=== PATIENT | male | born 1965 | race Caucasian/White ===

== ENCOUNTER 2020-05-29 12:04 | Outpatient (REF) | payer MEDICAID, SELFPAY | END 2020-05-29 12:05 | disposition home or self-care (01) | LOC: HO.HAP 12:04 | PROVIDERS: PCP Family Medicine; Visit Provider Family Medicine | DX: Z46.1 Encounter for fitting and adjustment of hearing aid (principal) | CPT/HCPCS: 92700; V5221; V5240 ==

== ENCOUNTER 2020-06-24 22:44 | Emergency (ER) | payer MEDICAID, SELFPAY ==
--- NOTE | 2020-06-24 | ECG_ITS ---
Test Reason : CHEST PAIN Blood Pressure : / mmHG Vent. Rate : 063 BPM Atrial Rate : 063 BPM P-R Int : 146 ms QRS Dur : 098 ms QT Int : 410 ms P-R-T Axes : 044 070 058 degrees QTc Int : 419 ms Normal sinus rhythm Normal ECG When compared to previous ECG of 24-Jun-2020 22:33:10 No significant changes seen Referred By: Generic ED Physician Electronically Signed By:MAILE MORALES MD
[2020-06-24 22:46] VITALS: BP 150/90; BP 169/88; PULSE 80; PULSE 81; RESP 16; TEMP 37.4; O2SAT 99; BMI 29.7
--- NOTE | 2020-06-25 01:19 | ED_ITS ---
HPI - Chest Pain General Chief Complaint: Chest Pain Stated Complaint: CHEST PAIN Time Seen by Provider: 06/25/20 01:19 Source: patient Mode of arrival: ambulatory Limitations: no limitations History of Present Illness MD complaint: chest pain Onset (ago): hour(s) (started at pm resolved now) Timing of current episode: episodic Prior episodes: Yes Onset: other (anxiety event) Pain location: right chest Pain radiation: none Quality: tightness Relieving factors: nothing Exacerbating factors: nothing Associated symptoms: other (dizziness) Treatment prior to arrival: none Related Data Allergies Allergy/AdvReac Type Severity Reaction Status Date / Time amoxicillin [AMOXICILLIN] Allergy Unknown ANAPHYLAXIS Verified 06/24/20 22:46 penicillin V Allergy Unknown Unknown Verified 06/24/20 22:46 Penicillins Allergy Unknown UNKNOWN Verified 06/24/20 22:46 REACTION-CHILDHOOD doxycycline [From VIBRAMYCIN] AdvReac Mild DIARRHEA Verified 06/24/20 22:46 Clindamycin HCl Allergy Unknown Unknown Uncoded 06/24/20 22:46 Review of Systems Review of Systems: Constitutional : No Weight loss, No Fever, No Chills ENT/Mouth : No sore throat, No Rhinorrhea Eyes: No Eye Pain, No Swelling Cardiovascular : pos Chest Pain, no SOB, no Dyspnea on Exertion, No Orthopnea, No Edema, No Palpitations Respiratory : No Cough, No Sputum Gastrointestinal : no Nausea, No Vomiting, No Diarrhea, No abdominal Pain, No Hematochezia, No Melena Genitourinary : No Dysuria, No Urinary Frequency Musculoskeletal : No joint pain, No Myalgias, No Joint Swelling Skin : No Skin Lesions, No rash Neuro : No Weakness, No Numbness, pos Dizziness, No Headache Psych : No Anxiety/Panic, No Depression Heme/Lymph: No Bruising, No Lymphadenopathy Endocrine : No Polyuria, No Polydipsia All other systems reviewed and are negative [facility] Past Medical History Medical History (Updated 06/25/20 @ 02:31 by Caryn Reynolds DO) Diabetes HTN (hypertension) Pulmonary nodules Social History Social History (Updated 06/25/20 @ 01:34 by Caryn Reynolds DO) Smoking Status: Never smoker Use of substances other than those prescribed or required for medical reasons: No Advance Directives: No Advance Directives Information Provided: No Physical Exam Vital Signs: Vital Signs: Vital Signs Temp Pulse Resp BP Pulse Ox 06/24/20 22:46 99.3 F 81 16 169/88 H 99 Body Mass Index 29.7 Appearance: Alert. Oriented X3. No acute distress. Eyes: Pupils equal, round and reactive to light. ENT: Pharynx normal. Neck: Normal inspection. Neck supple. CVS: Normal heart rate and rhythm. Pulses normal. Respiratory: No respiratory distress. Breath sounds normal. Abdomen: Soft and nontender. Skin: Skin warm and dry. Normal skin color. Normal skin turgor. Extremities: No lower extremity edema. No calf ttp Neuro: Oriented X 3. No motor deficit. No sensory deficit. Course Course Course Narrative: initial troponin negative, repeat ordered at 330am, if negative stable for DC MDM - Chest Pain MDM Narrative Medical decision making narrative: 54 yo male with HTN, DM here with resolved chest pain had episode of R sided chest pain with some dizziness during anxiety event at 9pm - at this time will need labs, EKG, CXR, troponin x 2, currently pain free Lab Data Result diagrams: 06/25/20 01:33 06/25/20 01:33 Labs: Lab Results 06/25/20 06/25/20 06/25/20 Range/Units 01:33 01:33 01:33 WBC 5.5 (4.8-10.8) X10*3/uL RBC 4.59 L (4.60-5.80) X10*6/uL Hgb 13.7 L (14.0-18.0) g/dl Hct 40.6 L (42-52) % MCV 88.5 (80-98) fL MCH 29.8 (27.0-33.0) pg MCHC 33.7 (31.0-36.0) g/dl RDW 12.1 (11.0-16.0) % Plt Count 285 (160-400) X10*3/uL MPV 10.0 (9.4-12.4) fL Immature Gran % (Auto) 0.4 (0.0-0.4) % Neut % (Auto) 55.6 (45-73) % Lymph % (Auto) 32.4 (20-40) % [place] % (Auto) 10.4 (2-11) % Eos % (Auto) 0.7 (0-4) % Baso % (Auto) 0.5 (0-2) % Lymph # (Auto) 1.8 (1.2-4.9) X10*3/uL [place] # (Auto) 0.6 (0.1-1.2) X10*3/uL Eos # (Auto) 0.0 (0.0-0.4) X10*3/uL Baso # (Auto) 0.0 (0.0-0.2) X10*3/uL Abs Immat Gran (auto) 0.02 (0.00-0.03) X10*3/uL Absolute Neuts (auto) 3.0 (2.0-8.3) X10*3/uL Absolute Nucleated RBC 0.000 (0.0-0.012) X10*3/uL Nucleated RBC % (auto) 0.0 (0.0-0.2) /100WBC Hold Blue Top SEE NOTE Sodium 140 (135-145) mmol/L Potassium 3.7 (3.3-5.1) mmol/l Chloride 105 (96-108) mmol/L Carbon Dioxide 24 (22-29) mmol/L Anion Gap 15 (12-20) BUN 17 H (9-16) mg/dL Creatinine 0.81 (0.5-1.4) mg/dL Estim Creat Clear Calc 108.0 Estimated GFR > 60 Random Glucose 131 H (60-115) mg/dL Calcium 9.3 (8.4-10.2) mg/dL Troponin I High Sens (<3.5-35.0) ng/L 06/25/20 Range/Units 01:33 WBC (4.8-10.8) X10*3/uL RBC (4.60-5.80) X10*6/uL Hgb (14.0-18.0) g/dl Hct (42-52) % MCV (80-98) fL MCH (27.0-33.0) pg MCHC (31.0-36.0) g/dl RDW (11.0-16.0) % Plt Count (160-400) X10*3/uL MPV (9.4-12.4) fL Immature Gran % (Auto) (0.0-0.4) % Neut % (Auto) (45-73) % Lymph % (Auto) (20-40) % [place] % (Auto) (2-11) % Eos % (Auto) (0-4) % Baso % (Auto) (0-2) % Lymph # (Auto) (1.2-4.9) X10*3/uL [place] # (Auto) (0.1-1.2) X10*3/uL Eos # (Auto) (0.0-0.4) X10*3/uL Baso # (Auto) (0.0-0.2) X10*3/uL Abs Immat Gran (auto) (0.00-0.03) X10*3/uL Absolute Neuts (auto) (2.0-8.3) X10*3/uL Absolute Nucleated RBC (0.0-0.012) X10*3/uL Nucleated RBC % (auto) (0.0-0.2) /100WBC Hold Blue Top Sodium (135-145) mmol/L Potassium (3.3-5.1) mmol/l Chloride (96-108) mmol/L Carbon Dioxide (22-29) mmol/L Anion Gap (12-20) BUN (9-16) mg/dL Creatinine (0.5-1.4) mg/dL Estim Creat Clear Calc Estimated GFR Random Glucose (60-115) mg/dL Calcium (8.4-10.2) mg/dL Troponin I High Sens 4.9 (<3.5-35.0) ng/L ECG Data ECG #1: Attestation: I personally reviewed and interpreted this ECG as follows: ECG interpretation date: 06/25/20 ECG interpretation time: 01:19 Interpretation: Rate: 63 Rhythm: NSR [place]: normal Normal P waves. Normal MERI. Normal QRS complex. ST T wave : normal qTC: normal prior studies: no acute ischemia The study has been interpreted contemporaneously by me. . Discharge Plan Discharge Clinical Impression: Atypical chest pain Patient Disposition: Home, Self-Care Instructions: Chest Pain (ED) Referrals: Ashley Frankel MD [Primary Care Provider] - 2 days (if not better)
[2020-06-25 01:48] LABS: Basophils Percent Auto 0.5 % (0-2); Eosinophils Percent Auto 0.7 % (0-4); Hematocrit 40.6 % (42-52); Hemoglobin 13.7 g/dl (14.0-18.0); Imm Gran Abs Auto 0.02 X10*3/uL (0.00-0.03); Imm Gran Pct Auto 0.4 % (0.0-0.4); Lymphocytes Absolute Auto 1.8 X10*3/uL (1.2-4.9); Lymphocytes Percent Auto 32.4 % (20-40); MANUAL DIFF FLAG NO; Mean Corpuscular HGB Conc 33.7 g/dl (31.0-36.0); Mean Corpuscular Hemoglobin 29.8 pg (27.0-33.0); Mean Corpuscular Volume 88.5 fL (80-98); Monocytes Absolute Auto 0.6 X10*3/uL (0.1-1.2); Monocytes Percent Auto 10.4 % (2-11); Neutrophils Percent Auto 55.6 % (45-73); Platelet Count 285 X10*3/uL (160-400); Red Blood Count 4.59 X10*6/uL (4.60-5.80); Red Cell Distribution Width 12.1 % (11.0-16.0); White Blood Count 5.5 X10*3/uL (4.8-10.8)
[2020-06-25 02:13] LABS: Anion Gap 15 (12-20); Blood Urea Nitrogen 17 mg/dL (9-16); Calcium 9.3 mg/dL (8.4-10.2); Carbon Dioxide 24 mmol/L (22-29); Chloride 105 mmol/L (96-108); Estimated Glomerular Filt Rate > 60; Glucose Random 131 mg/dL (60-115); Potassium 3.7 mmol/l (3.3-5.1); Sodium 140 mmol/L (135-145)
--- NOTE | 2020-06-25 02:16 | PC.NURSE ---
pt refused chest x ray. came in from [facility]. pt labbed per leonor mg orders. pt stable. nrs on monitor
[2020-06-25 02:21] LABS: Troponin-I High Sensitivity 4.9 ng/L (<3.5-35.0)
--- NOTE | 2020-06-25 02:52 | PC.NURSE ---
plan for repeat troponin at 0330. pt agreeable. nsr on monitor. nad noted
[2020-06-25 03:30] VITALS: BP 154/85; PULSE 61; RESP 18; TEMP 37.1
--- NOTE | 2020-06-25 03:34 | PC.NURSE ---
repeat troponin complete
[2020-06-25 04:09] LABS: Troponin-I High Sensitivity 5.8 ng/L (<3.5-35.0)
== END 2020-06-25 04:23 | disposition home or self-care (01) ==
PROVIDERS: Emergency Provider Emergency Medicine; PCP Family Medicine
DX: R07.89 Other chest pain (principal); Z79.899 Other long term (current) drug therapy
CPT/HCPCS: 36415; 80048; 84484; 85025; 93005; 99283; 99284

== ENCOUNTER 2020-07-30 12:44 | Outpatient (REF) | payer MEDICAID, SELFPAY ==
--- NOTE | 2020-07-30 12:46 | CT_ITS ---
EXAMINATION: CT CHEST WITHOUT CONTRAST CLINICAL INFORMATION: Left lung nodule COMPARISON: 12/25/2019 and 07/29/2019. TECHNIQUE: Multidetector volumetric CT imaging of the chest was done. Axial MIP volume rendering provided. Sagittal and coronal reformatted images were obtained. This CT examination was performed using dose optimization techniques as appropriate, variously including the following: *Automated exposure control *Adjustment of mA and/or kV according to patient size (this includes techniques or standardized protocols for targeted exams where dose is matched to indication/reason for exam; i.e. extremities or head) *Use of iterative reconstruction technique DLP: 182 mGy-cm FINDINGS: LUNGS: Central airways are patent. No bronchial wall thickening identified. No bronchiectasis is seen. No confluent parenchymal disease. No findings to suggest emphysema. There are numerous calcified granulomas seen. There is a 1.0 x 0.6 x 0.5 cm noncalcified density within the left lower lobe on image 354 of 597. This appears similar in previous study of 12/25/2019 and 07/29/2019. MEDIASTINUM: Thyroid gland appears unremarkable. Heart normal size. No pericardial effusion. Coronary artery calcification present involving the bifurcation of the left main coronary artery. No thoracic aortic aneurysm. No mediastinal or hilar lymphadenopathy. PLEURA: There is no pleural effusion. No pleural mass or thickening. AXILLA: No lymphadenopathy. There is bilateral gynecomastia present. UPPER ABDOMEN: Unremarkable. OSSEOUS STRUCTURES: No suspicious destructive bony lesions identified. CT/CT chest wo con IMPRESSION: Old granulomatous disease. No significant change in appearance of left lower lobe mass. According to the UPDATED 2017 Fleischner Society recommendations, the advised follow-up imaging for a single solid nodule measuring 8 mm or greater is: Consider CT, PET/CT, or tissue sampling at 3 months. Previous Fleischner recommendations were Nodule size > 8 mm in LOW RISK PATIENTS: Follow up CT at around 3, 9, and 24 months, dynamic contrast-enhanced CT, PET, and/or biopsy. Nodule size > 8 mm in HIGH RISK PATIENTS: Same as for low-risk patients. Since the lesion has been stable for one year I would recommend either a PET/CT or 12 month follow-up CT of the chest.
== END 2020-07-30 12:45 | disposition home or self-care (01) ==
LOC: HO.CT 12:44
PROVIDERS: PCP Family Medicine; Visit Provider Hospitalist
DX: R91.1 Solitary pulmonary nodule (principal)
CPT/HCPCS: 71250

== ENCOUNTER → 2020-08-04 10:09 | Outpatient (BNVA) | payer MEDICAID, SELFPAY | PROVIDERS: PCP Family Medicine; Referring Provider Family Medicine; Visit Provider Hospitalist | DX: Z76.89 Persons encountering health services in other specified circumstances (principal) ==

== ENCOUNTER 2020-08-12 11:40 | Outpatient (REF) | payer MEDICAID, SELFPAY ==
[2020-08-12 13:26] LABS: Alanine Aminotransferase 14 U/L (0-40); Albumin Level 4.4 g/dL (3.5-5.0); Alkaline Phosphatase 96 U/L (39-117); Anion Gap 12 (12-20); Aspartate Amino Transferase 22 U/L (5-37); Bilirubin Total 1.4 mg/dL (0.0-1.0); Blood Urea Nitrogen 11 mg/dL (9-16); Calcium 9.5 mg/dL (8.4-10.2); Carbon Dioxide 31 mmol/L (22-29); Chloride 102 mmol/L (96-108); Cholesterol 174 mg/dL; Estimated Glomerular Filt Rate > 60; Glucose Random 147 mg/dL (60-115); HDL Cholesterol 59 mg/dL; LDL Cholesterol Calculated 100 mg/dl; Potassium 3.7 mmol/l (3.3-5.1); Sodium 141 mmol/L (135-145); Total Protein 7.1 g/dL (6.5-8.0); Triglycerides 78 mg/dL
[2020-08-12 13:27] LABS: Creatinine Urine 193.46 mg/dL; Microalbum/Creatinine Ratio Ur 6.2 ug/mg cr
[2020-08-12 14:21] LABS: Prostate Specific Antigen 0.99 ng/mL (<0.05-4.0)
== END 2020-08-12 11:41 | disposition home or self-care (01) ==
LOC: HO.LAB 11:40
PROVIDERS: PCP Family Medicine; Visit Provider Family Medicine
DX: R35.8 Other polyuria (principal); I10 Essential (primary) hypertension
CPT/HCPCS: 80053; 80061; 82043; 84153

== ENCOUNTER 2020-08-15 01:10 | Emergency (ER) | payer MEDICAID, SELFPAY ==
--- NOTE | 2020-08-15 | ECG_ITS ---
Test Reason : PALPITATIONS Blood Pressure : / mmHG Vent. Rate : 060 BPM Atrial Rate : 060 BPM P-R Int : 142 ms QRS Dur : 092 ms QT Int : 414 ms P-R-T Axes : 031 069 048 degrees QTc Int : 414 ms Normal sinus rhythm Normal ECG When compared to the previous EKG of No significant changes seen Referred By: Toñito Rodriguez Electronically Signed By:Joaquin Saunders
[2020-08-15 01:15] VITALS: BP 137/80; PULSE 76; RESP 18; TEMP 36.6; O2SAT 98; BMI 28.1
--- NOTE | 2020-08-15 01:29 | ED.GENADULT ---
HPI - General Adult General Chief complaint: General Medical Stated complaint: Palpitations Time Seen by Provider: 08/15/20 01:29 Source: patient Mode of arrival: ambulatory Limitations: no limitations History of Present Illness HPI narrative: Patient been complaining of palpitation for last 3 months was seen here 06/25 supposed to see accounts manager but could not make it patient detail workup including echo and stress test in 02/14 feels anxious has poor sleep patient does get palpitation with heart rate close to 110 without any chest discomfort or dizziness or syncope Related Data Home Medications Medication Instructions Recorded Confirmed albuterol sulfate 90 mcg/actuation 2 puff INHALATION Q4-6H PRN 08/04/20 08/04/20 aerosol inhaler amlodipine 5 mg tablet 5 mg PO DAILY 08/04/20 08/04/20 aspirin 81 mg tablet,delayed 81 mg PO DAILY 08/04/20 08/04/20 release lisinopril 20 mg tablet 20 mg PO DAILY 08/04/20 08/04/20 loratadine 10 mg tablet 10 mg PO DAILY 08/04/20 08/04/20 Previous Rx's Medication Instructions Recorded lorazepam [Ativan] 1 mg PO BEDTIME PRN #10 tab 08/15/20 Allergies Allergy/AdvReac Type Severity Reaction Status Date / Time amoxicillin [AMOXICILLIN] Allergy Severe ANAPHYLAXIS Verified 08/15/20 01:14 Penicillins Allergy Severe UNKNOWN Verified 08/15/20 01:14 REACTION-CHILDHOOD doxycycline [From VIBRAMYCIN] AdvReac Mild DIARRHEA Verified 08/15/20 01:14 Clindamycin HCl Allergy Severe Anaphylaxis Uncoded 08/15/20 01:14 Review of Systems Review of Systems: Constitutional : No Weight loss, No Fever, No Chills ENT/Mouth : No sore throat, No Rhinorrhea Eyes: No Eye Pain, No Swelling Cardiovascular : pos Chest Pain, no SOB, no Dyspnea on Exertion, No Orthopnea, No Edema, Respiratory : No Cough, No Sputum Gastrointestinal : no Nausea, No Vomiting, No Diarrhea, No abdominal Pain, No Hematochezia, No Melena Genitourinary : No Dysuria, No Urinary Frequency Musculoskeletal : No joint pain, No Myalgias, No Joint Swelling Skin : No Skin Lesions, No rash Neuro : No Weakness, No Numbness, pos Dizziness, No Headache Psych : No Anxiety/Panic, No Depression Heme/Lymph: No Bruising, No Lymphadenopathy Endocrine : No Polyuria, No Polydipsia All other systems reviewed and are negative [facility] Past Medical History Medical History (Updated 08/15/20 @ 02:14 by Toñito Rodriguez MD) Asthma Diabetes HTN (hypertension) Nasal polyps Pulmonary nodules Surgical History (Updated 08/06/20 @ 08:26 by Caleb Carbajal) H/O wrist surgery Family History Family History (Updated 08/06/20 @ 08:29 by Caleb Carbajal) Father Diabetes Hypertension Mother Hypertension Hyperlipidemia Brother Hypertension Family/Other Kidney stones Prostate cancer Bladder cancer Renal cancer Social History Social History (Updated 06/25/20 @ 01:34 by Crayn Reynolds DO) Smoking Status: Never smoker Advance Directives: No Advance Directives Information Provided: No Physical Exam Vital Signs: Vital Signs: Last Vital Signs Temp 97.8 F 08/15/20 01:15 Pulse 70 08/15/20 01:43 Resp 20 08/15/20 01:43 BP 156/94 H 08/15/20 01:43 Pulse Ox 98 08/15/20 01:15 Body Mass Index 28.1 Appearance: Alert. Oriented X3. No acute distress. Eyes: Pupils equal, round and reactive to light. ENT: Pharynx normal. Neck: Normal inspection. Neck supple. CVS: Normal heart rate and rhythm. Pulses normal. Respiratory: No respiratory distress. Breath sounds normal. Abdomen: Soft and nontender. Skin: Skin warm and dry. Normal skin color. Normal skin turgor. Extremities: No lower extremity edema. No calf ttp Neuro: Oriented X 3. No motor deficit. No sensory deficit. Medical Decision Making [facility] Narrative Medical decision making narrative: Patient with benign palpitation with anxiety on arrival patient's heart rate is 60 normal sinus rhythm no arrhythmias noticed will watch him for another half an hour on teletypesetter monitor. Patient had stable labs on 06/25. Patient supposed to see accounts manager this coming week for Holter monitoring. During stay in the ER teletypesetter monitor showed normal sinus rhythm heart rate in 60 wached for about half an hour no arrhythmias noticed ECG Data Attestation: I personally reviewed and interpreted this ECG as follows: Interpretation: Normal sinus rhythm heart rate 60 normal axis normal intervals no acute ST T wave changes impression normal EKG Discharge Plan Discharge Clinical Impression: Heart palpitations Patient Disposition: Home, Self-Care Instructions: Heart Palpitations (ED) Additional Instructions: Take medication to relax. Follow with accounts manager for further evaluation as scheduled. Report to the ER if any passing out episode Prescriptions: New lorazepam [Ativan] 1 mg tablet 1 mg PO BEDTIME PRN (Reason: anxiety) Qty: 10 RF: 0 No Action albuterol sulfate [ProAir HFA] 90 mcg/actuation HFA aerosol inhaler 2 puff inhalation Q4-6H PRNRF: 0 lisinopril 20 mg tablet 20 mg PO DAILY RF: 0 amlodipine 5 mg tablet 5 mg PO DAILY RF: 0 aspirin 81 mg tablet,delayed release (DR/EC) 81 mg PO DAILY RF: 0 loratadine [Claritin] 10 mg tablet 10 mg PO DAILY RF: 0
--- NOTE | 2020-08-15 01:41 | PC.NURSE ---
at bedside for primary eval.
[2020-08-15 01:43] VITALS: BP 156/94; PULSE 70; RESP 20
--- NOTE | 2020-08-15 01:50 | PC.NURSE ---
Pt found sitting upright in bed, CAOx4, speaking full sentences. Pt reports palpitations, states he has been having them intermittently for months. Pt was recently seen for an echo/stress test over the summer and again at the ED in May. Pt denies following up with a motor home electrical foreman. Pt denies recent stress/anxiety. Pt states he has been told multiple times that his palpitations are r/t anxiety but denies recent stress/anxiety. EKG obtained by this RN. VSS. Pt aware of plan to monitor for 30 minutes.
[2020-08-15 02:16] VITALS: BP 143/87; PULSE 64; RESP 16
--- NOTE | 2020-08-26 10:00 | ECG_ITS ---
Hook-up date: 2020-08-26 10:28:00 Duration: 25:16:00 Test Indications: palpitations Medications: 74170 QRS complexes 5 Ventricular ectopics which represent <1 % of total QRS comp. 22 Supraventricular ectopics which represent <1 % of total QRS comp. * Paced QRS complexs which represent % of total QRS comp. VENTRICULAR ECTOPY 5 Isolated 0 Bigeminal Cycles 0 Couplets 0 Runs 0 Beats in Runs * Beats LONGEST at * BPM at :: -- * Beats FASTEST at * BPM at :: -- SUPRAVENTRICULAR ECTOPY 19 Isolated 0 Couplets 1 Runs 3 Beats in Runs 3 Beats LONGEST at 140 BPM at 14:04:26 2020-08-26 3 Beats FASTEST at 140 BPM at 14:04:26 2020-08-26 HEART RATES 55 MIN at 07:39:09 2020-08-27 73 AVG 124 MAX at 02:14:04 2020-08-27 LONGEST RR 1.3120 secs at 06:37:06 2020-08-27 S-T LEVELS Channel 1 - 128 mm at 10:28:00 2020-08-26 - 128 mm at 10:28:00 2020-08-26 Channel 2 - 128 mm at 10:28:00 2020-08-26 - 128 mm at 10:28:00 2020-08-26 Channel 3 - 128 mm at 02:94:71 -- - 128 mm at 02:94:71 Basic rhythm Normal sinus rhythm No long pause or profound bradycardia Rare ectopics No sustained arrhythmias No diary submitted Referred By: Joaquin Saunders Overread By: LIATH LIZAMA MD
== END 2020-08-15 02:21 | disposition home or self-care (01) ==
PROVIDERS: Emergency Provider Internal Medicine; PCP Family Medicine
DX: R00.2 Palpitations (principal); I10 Essential (primary) hypertension; E11.9 Type 2 diabetes mellitus without complications; Z79.899 Other long term (current) drug therapy
CPT/HCPCS: 93005; 93226; 99283; 99284

== ENCOUNTER → 2020-08-20 10:37 | Outpatient (BNVA) | payer MEDICAID, SELFPAY | PROVIDERS: PCP Family Medicine; Visit Provider Internal Medicine Cardiovascular Disease | DX: I10 Essential (primary) hypertension (principal); R00.2 Palpitations | CPT/HCPCS: 99212 ==

== ENCOUNTER → 2020-08-26 09:17 | Outpatient (BNVA) | payer MEDICAID, SELFPAY | PROVIDERS: PCP Family Medicine; Visit Provider Internal Medicine Cardiovascular Disease | DX: Z76.89 Persons encountering health services in other specified circumstances (principal) ==

== ENCOUNTER → 2020-09-25 13:45 | Outpatient (BNVA) | payer MEDICAID, SELFPAY | PROVIDERS: PCP Family Medicine; Visit Provider Hospitalist ==

== ENCOUNTER → 2020-09-28 12:50 | Outpatient (BNVA) | payer MEDICAID, SELFPAY | PROVIDERS: PCP Family Medicine; Visit Provider Internal Medicine Cardiovascular Disease | DX: M79.605 Pain in left leg (principal); I10 Essential (primary) hypertension; R00.2 Palpitations | CPT/HCPCS: 99212 ==

== ENCOUNTER 2020-10-04 06:07 | Emergency (ER) | payer MEDICAID, SELFPAY ==
--- NOTE | ~2020-10-04 | XR_ITS ---
EXAMINATION: XR LUMBAR SPINE CLINICAL INFORMATION: Reason for Exam pain COMPARISON: None TECHNIQUE: Frontal lateral and coned-down L5-S1 frontal lateral FINDINGS: Five [id number] lumbar vertebrae were identified maintaining normal height and alignments. Narrowing of intervertebral disc spaces suggest underlying degenerative disc disease. Paravertebral soft tissues are unremarkable. There are radiolucencies, most likely superimposed bowel gas.. No radiographic evidence of osteolytic or osteoblastic lesions. XR/XR lumbar spine 2-3V IMPRESSION: Degenerative disc disease, no fracture.
[2020-10-04 06:30] VITALS: BP 149/76; PULSE 74; RESP 16; TEMP 36; O2SAT 98; BMI 27.3
--- NOTE | 2020-10-04 06:51 | ED.BACK ---
HPI - Back Pain/Injury General Chief Complaint: Back Pain/Injury Stated Complaint: Back pain Time Seen by Provider: 10/04/20 06:40 Source: patient Mode of arrival: ambulatory Limitations: no limitations History of Present Illness HPI Narrative: c/o intermittent raises in BP since starting prednisone for sinus infection - no associated symptoms, notes for 2 to 3 months lower back pain at times and some fullness in suprapubic area, denies trauma, no b/b incontinence, no saddle anesthesia, no IVDA, no fevers MD elicited complaint: back pain Pertinent past history: prior back pain Onset (ago): month(s) (3) Timing: intermittent Severity: mild Similar Symptoms Previously: Yes Quality: dull and aching Location: lumbar spine Radiation: abdomen Exacerbating factors: movement Relieving factors: none Context: unknown Associated symptoms: denies other symptoms Related Data Home Medications Medication Instructions Recorded Confirmed albuterol sulfate 90 mcg/actuation 2 puff INHALATION Q4-6H PRN 08/04/20 09/28/20 aerosol inhaler amlodipine 5 mg tablet 5 mg PO DAILY 08/04/20 09/28/20 aspirin 81 mg tablet,delayed 81 mg PO DAILY 08/04/20 09/28/20 release loratadine 10 mg tablet 10 mg PO DAILY 08/04/20 09/28/20 lisinopril 20 mg tablet 40 mg PO DAILY tab 09/28/20 09/28/20 Previous Rx's Medication Instructions Recorded lorazepam [Ativan] 1 mg PO BEDTIME PRN #10 tab 08/15/20 azithromycin 500 mg tablet 500 mg PO DAILY 5 Days #5 tab 09/25/20 prednisone 10 mg tablet 10 mg PO DAILY 14 Days #21 tab 09/25/20 cyclobenzaprine 10 mg PO TID PRN #14 tab 10/04/20 lidocaine 1 patch TOPICAL DAILY PRN #10 ea 10/04/20 Allergies Allergy/AdvReac Type Severity Reaction Status Date / Time amoxicillin [AMOXICILLIN] Allergy Severe ANAPHYLAXIS Verified 10/04/20 06:35 Penicillins Allergy Severe UNKNOWN Verified 10/04/20 06:35 REACTION-CHILDHOOD doxycycline [From VIBRAMYCIN] AdvReac Mild DIARRHEA Verified 10/04/20 06:35 Clindamycin HCl Allergy Severe Anaphylaxis Uncoded 10/04/20 06:35 Review of Systems Review of Systems: Constitutional : No Weight loss, No Fever, No Chills, ENT/Mouth : No Hearing loss, No Ear Pain, No Nasal Congestion, No Sinus Pain, No Hoarseness, No sore throat, No Rhinorrhea, No Swallowing Difficulty Cardiovascular : No Chest Pain, No SOB Respiratory : No Cough, No Dyspnea Gastrointestinal : No Nausea, No Vomiting, No Diarrhea, No abdominal Pain, No Hematochezia, No Melena Genitourinary : No Dysuria, No Urinary Frequency, No Hematuria, No Urinary Incontinence, Musculoskeletal : positive back pain Skin : No Skin Lesions, No rash Neuro : No Weakness, No Numbness, No Paresthesias, no loss of bowel or bladder incontinence, no saddle anesthesia [facility] Past Medical History Attestation statement: The following information was validated with the patient. Medical History Asthma Diabetes HTN (hypertension) Nasal polyps Pulmonary nodules Surgical History H/O wrist surgery Family History Family History (Updated 08/06/20 @ 08:29 by Caleb Carbajal) Father Diabetes Hypertension Mother Hypertension Hyperlipidemia Brother Hypertension Family/Other Kidney stones Prostate cancer Bladder cancer Renal cancer Social History Social History Alcohol intake: never Smoking Status: Former smoker Years Smoked: 8 Smoked in Last 30 Days: No Use of substances other than those prescribed or required for medical reasons: No Advance Directives: No Physical Exam Vital Signs: Vital Signs: Last Vital Signs Temp 96.8 F 10/04/20 06:30 Pulse 74 10/04/20 06:30 Resp 16 10/04/20 06:30 BP 149/76 H 10/04/20 06:30 Pulse Ox 98 10/04/20 06:30 Body Mass Index 27.3 Appearance: Alert. Oriented X3. No acute distress. Eyes: Pupils equal, round and reactive to light. ENT: Pharynx normal. Neck: Normal inspection. Neck supple. CVS: Normal heart rate and rhythm. Pulses normal. Respiratory: No respiratory distress. Breath sounds normal. Abdomen: Soft and nontender. Back: mild ttp along lumbar paraspinals Skin: Skin warm and dry. Normal skin color. Normal skin turgor. Extremities: No lower extremity edema. No calf ttp Neuro: Oriented X 3. No motor deficit. No sensory deficit. Course Course Course Narrative: no acute findings, stable for DC MDM - Back Pain/Injury MDM Narrative Medical decision making narrative: 55 yo male with intermittent HTN since starting prednisone - I told the patient to wait and see what happens since asymptomatic - he is almost done with the prednisone, also c/o intermittent low back pain x 3 months with suprapubic discomfort, abdomen is benign, no b/b incontinence, no saddle anesthesia, no AC therapy, no IVDA - likely strain, not toxic, steady gait, NV intact, abdomen is nontender - lumbar films and UA ordered Lab Data Labs: Lab Results 10/04/20 Range/Units 07:21 Urine Color STRAW Urine Appearance CLEAR Urine pH 6.0 (5.0-8.0) Ur Specific [place] <= 1.005 (1.005-1.025) Urine Protein NEG (NEG-TRACE) MG/DL Urine Glucose (UA) NEG (NEG) MG/DL Urine Ketones NEG (NEG) MG/DL Urine Blood NEG (NEG) Urine Nitrite NEG (NEG) Ur Leukocyte Esterase NEG (NEG) Discharge Plan Discharge Clinical Impression: Lumbar muscle pain Patient Disposition: Home, Self-Care Instructions: Low Back Strain (ED) Additional Instructions: return to ED for any worsening symptoms or concerns monitor blood pressure once off prednisone urine was negative, xray of spine showed some arthritis and degenerative disc changes - MILD Prescriptions: New cyclobenzaprine 10 mg tablet 10 mg PO TID PRN (Reason: muscle spasm) Qty: 14 RF: 0 lidocaine 4 % adhesive patch,medicated 1 patch topical DAILY PRN (Reason: pain) Qty: 10 RF: 0 No Action lorazepam [Ativan] 1 mg tablet 1 mg PO BEDTIME PRN (Reason: anxiety) Qty: 10 RF: 0 albuterol sulfate [ProAir HFA] 90 mcg/actuation HFA aerosol inhaler 2 puff inhalation Q4-6H PRNRF: 0 amlodipine 5 mg tablet 5 mg PO DAILY RF: 0 aspirin 81 mg tablet,delayed release (DR/EC) 81 mg PO DAILY RF: 0 loratadine [Claritin] 10 mg tablet 10 mg PO DAILY RF: 0 lisinopril 20 mg tablet 40 mg PO DAILY RF: 0 prednisone 10 mg tablet 10 mg PO DAILY 14 Days Qty: 21 RF: 0 azithromycin 500 mg tablet 500 mg PO DAILY 5 Days Qty: 5 RF: 0 Referrals: Ashley Frankel MD [Primary Care Provider] - 2 days (if not better)
[2020-10-04 07:34] LABS: Glucose Urine UA NEG (NEG); Leukocyte Esterase Urine NEG (NEG); Nitrite Urine NEG (NEG); Specific Gravity - Urine <= 1.005 (1.005-1.025); Urine Blood NEG (NEG); Urine Ketones NEG (NEG); Urine Protein NEG (NEG-TRACE)
[2020-10-04 07:37] LABS: Appearance Urine CLEAR; Color Urine STRAW
== END 2020-10-04 07:47 | disposition home or self-care (01) ==
PROVIDERS: Emergency Provider Emergency Medicine; PCP Family Medicine
DX: M54.5 Low back pain (principal); E11.9 Type 2 diabetes mellitus without complications; I10 Essential (primary) hypertension; J45.909 Unspecified asthma, uncomplicated; Z79.899 Other long term (current) drug therapy; Z79.82 Long term (current) use of aspirin
CPT/HCPCS: 72100; 81003; 99283; 99284

== ENCOUNTER 2020-10-08 12:19 | Outpatient (REF) | payer MEDICAID, SELFPAY ==
--- NOTE | ~2020-10-08 | US_ITS ---
EXAMINATION: ANKLE-BRACHIAL INDICES. CLINICAL INFORMATION: This is a 55-year-old male with pain in the leg. Possible claudication. COMPARISON: None. TECHNIQUE: Ankle-brachial indices were obtained. The study was performed pre-exercise. FINDINGS: RIGHT SIDE: The right ankle-brachial index is 1.12 rest. The segmental pressures demonstrate no evidence of peripheral arterial disease. The PVR waveforms show no evidence of significant peripheral arterial disease. LEFT SIDE: The left ankle-brachial index is 1.19 at rest. The segmental pressures demonstrate no evidence of significant peripheral arterial disease. The PVR waveforms demonstrate no evidence of significant peripheral arterial disease. US/US NA complete IMPRESSION: 1. Normal bilateral resting peripheral arterial testing without evidence of hemodynamically significant stenosis. INTERPRETATION CRITERIA FOR PERIPHERAL ARTERIAL DISEASE: > 0.97-1.25 = normal - no significant peripheral arterial disease. (0.95 - 0.91 may be abnormal-consider PVRs and Doppler waveforms). 0.75 - 0.96 = MILD peripheral arterial disease. 0.50 -0.74 = MODERATE peripheral arterial disease. < 0.50 = SEVERE peripheral arterial disease. < 0.30 = CRITICAL peripheral arterial disease.
== END 2020-10-08 12:20 | disposition home or self-care (01) ==
LOC: HO.US 12:19
PROVIDERS: Visit Provider Internal Medicine Cardiovascular Disease
DX: M79.606 Pain in leg, unspecified (principal)
CPT/HCPCS: 93923

== ENCOUNTER → 2020-11-12 13:13 | Outpatient (BNVA) | payer MEDICAID, SELFPAY | PROVIDERS: PCP Family Medicine; Visit Provider Nurse Practitioner Family | DX: R00.2 Palpitations (principal); I10 Essential (primary) hypertension; M79.605 Pain in left leg; Z79.82 Long term (current) use of aspirin; Z79.899 Other long term (current) drug therapy; Z87.891 Personal history of nicotine dependence | CPT/HCPCS: 93005; 99212 ==

== ENCOUNTER → 2020-12-24 14:04 | Outpatient (BNVA) | payer MEDICAID, SELFPAY | PROVIDERS: PCP Family Medicine; Visit Provider Hospitalist | DX: R91.8 Other nonspecific abnormal finding of lung field (principal); J33.9 Nasal polyp, unspecified; J45.40 Moderate persistent asthma, uncomplicated | CPT/HCPCS: 99212 ==

== ENCOUNTER 2021-01-21 12:24 | Emergency (ER) | payer MEDICAID, SELFPAY ==
--- NOTE | 2021-01-21 | ECG_ITS ---
Test Reason : CHEAST PAIN Blood Pressure : / mmHG Vent. Rate : 076 BPM Atrial Rate : 076 BPM P-R Int : 138 ms QRS Dur : 096 ms QT Int : 388 ms P-R-T Axes : 058 070 038 degrees QTc Int : 436 ms Normal sinus rhythm Normal ECG When compared with ECG of 15-AUG-2020 01:34, No significant change was found Referred By: Generic ED Physician Electronically Signed By:FARTUN MILLARD
--- NOTE | ~2021-01-21 | XR_ITS ---
EXAMINATION: XR CHEST CLINICAL INFORMATION: Chest pain COMPARISON: Chest radiographs 01/30/2020, 01/03/2020 TECHNIQUE: Portable upright AP view of the chest was obtained. FINDINGS: The lungs are clear. There is no pneumothorax, pleural reaction, infiltrate, or effusion. The heart is normal in size. The hilar and mediastinal contours are normal. No visible acute bony abnormality. XR/XR chest 1V IMPRESSION: Unremarkable examination.
[2021-01-21 12:28] VITALS: BP 133/83; PULSE 89; RESP 18; TEMP 36.2; O2SAT 98; BMI 29.7
--- NOTE | 2021-01-21 12:37 | PC.NURSE ---
NO EKG AVAILABLE AT THIS TIME
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
[2021-01-21 14:16] LABS: MANUAL DIFF FLAG NO
[2021-01-21 14:19] LABS: Basophils Percent Auto 0.6 % (0-2); Eosinophils Percent Auto 0.8 % (0-4); Hematocrit 40.7 % (42-52); Hemoglobin 13.8 g/dl (14.0-18.0); Imm Gran Abs Auto 0.02 X10*3/uL (0.00-0.03); Imm Gran Pct Auto 0.4 % (0.0-0.4); Lymphocytes Absolute Auto 1.3 X10*3/uL (1.2-4.9); Lymphocytes Percent Auto 26.7 % (20-40); Mean Corpuscular HGB Conc 33.9 g/dl (31.0-36.0); Mean Corpuscular Hemoglobin 30.3 pg (27.0-33.0); Mean Corpuscular Volume 89.3 fL (80-98); Mean Platelet Volume 10.4 fL (9.4-12.4); Monocytes Absolute Auto 0.6 X10*3/uL (0.1-1.2); Monocytes Percent Auto 11.1 % (2-11); Neutrophils Percent Auto 60.4 % (45-73); Platelet Count 259 X10*3/uL (160-400); Red Blood Count 4.56 X10*6/uL (4.60-5.80); Red Cell Distribution Width 12.1 % (11.0-16.0); White Blood Count 4.9 X10*3/uL (4.8-10.8)
[2021-01-21 14:51] LABS: B Type Natriuretic Peptide 14 pg/mL (<100); Troponin-I High Sensitivity 4.2 ng/L (<3.5-35.0)
[2021-01-21 14:52] LABS: Alanine Aminotransferase 18 U/L (0-40); Albumin Level 4.3 g/dL (3.5-5.0); Alkaline Phosphatase 114 U/L (39-117); Anion Gap 11 (12-20); Aspartate Amino Transferase 22 U/L (5-37); Bilirubin Direct 0.4 mg/dL (0.0-0.5); Bilirubin Total 1.1 mg/dL (0.0-1.0); Blood Urea Nitrogen 15 mg/dL (9-16); Calcium 9.8 mg/dL (8.4-10.2); Carbon Dioxide 27 mmol/L (22-29); Chloride 106 mmol/L (96-108); Estimated Glomerular Filt Rate > 60; Glucose Random 164 mg/dL (60-115); Potassium 3.8 mmol/L (3.3-5.1); Sodium 140 mmol/L (135-145); Total Protein 6.9 g/dL (6.5-8.0)
== END 2021-01-21 15:44 | disposition home or self-care (01) ==
PROVIDERS: Physician Assistant; Emergency Provider Emergency Medicine; PCP Family Medicine
DX: R07.9 Chest pain, unspecified (principal); R10.84 Generalized abdominal pain; I10 Essential (primary) hypertension; Z79.899 Other long term (current) drug therapy; Z79.82 Long term (current) use of aspirin
CPT/HCPCS: 36415; 71045; 80048; 80076; 83735; 83880; 84484; 85025; 93005; 99283

== ENCOUNTER → 2021-05-13 12:45 | Outpatient (BNVA) | payer MEDICAID, SELFPAY | PROVIDERS: PCP Family Medicine; Referring Provider Family Medicine; Visit Provider Internal Medicine Cardiovascular Disease | DX: I10 Essential (primary) hypertension (principal) | CPT/HCPCS: 99212 ==

== ENCOUNTER → 2021-06-22 09:47 | Outpatient (BNVA) | payer MEDICAID, SELFPAY | PROVIDERS: PCP Family Medicine; Visit Provider Urology | DX: N40.1 Benign prostatic hyperplasia with lower urinary tract symptoms (principal); N13.8 Other obstructive and reflux uropathy; R35.1 Nocturia; N52.9 Male erectile dysfunction, unspecified | CPT/HCPCS: 51798; 99212 ==

== ENCOUNTER → 2021-07-26 13:04 | Outpatient (BNVA) | payer MEDICAID, SELFPAY | PROVIDERS: PCP Family Medicine; Visit Provider Hospitalist | DX: J45.40 Moderate persistent asthma, uncomplicated (principal); J01.91 Acute recurrent sinusitis, unspecified; J33.9 Nasal polyp, unspecified; R91.8 Other nonspecific abnormal finding of lung field | CPT/HCPCS: 99212 ==

== ENCOUNTER 2021-07-28 07:11 | Outpatient (REF) | payer MEDICAID, SELFPAY ==
--- NOTE | ~2021-07-28 | CT_ITS ---
EXAMINATION: CT CHEST WITHOUT CONTRAST CLINICAL INFORMATION: Lung cyst COMPARISON: Previous chest CT July 2020 and chest x-ray most recent December 2020 TECHNIQUE: Multidetector volumetric CT imaging of the chest was done. Axial MIP volume rendering provided. Sagittal and coronal reformatted images were obtained. This CT examination was performed using dose optimization techniques as appropriate, variously including the following: *Automated exposure control *Adjustment of mA and/or kV according to patient size (this includes techniques or standardized protocols for targeted exams where dose is matched to indication/reason for exam; i.e. extremities or head) *Use of iterative reconstruction technique DLP: 229 mGy-cm FINDINGS: MOLDING SANDER: LUNGS: No lung cyst is seen. There is a 4 x 8 mm left lower lobe nodule axial image 334 series 5 that is stable. There are multiple small calcified pulmonary nodules that are stable. The largest measures 4 mm in the right lower lobe axial image 328 series 5. No new pulmonary nodule is seen. MEDIASTINUM: There is mild coronary artery calcification. The mediastinum is otherwise normal. PLEURA: There is no pleural effusion. No pleural mass or thickening. AXILLA: No lymphadenopathy. There is bilateral gynecomastia that is stable. UPPER ABDOMEN: Unremarkable. OSSEOUS STRUCTURES: There are degenerative changes of the spine. CT/CT chest wo con IMPRESSION: Stable 4 x 8 mm noncalcified left lower lobe nodule and smaller calcified pulmonary nodules. No lung cyst is seen. Fleischner guidelines were followed.
== END 2021-07-28 07:12 | disposition home or self-care (01) ==
LOC: HO.CT 07:11
PROVIDERS: PCP Family Medicine; Visit Provider Hospitalist
DX: R91.8 Other nonspecific abnormal finding of lung field (principal)
CPT/HCPCS: 71250

== ENCOUNTER → 2021-08-02 13:45 | Outpatient (BNVA) | payer MEDICAID, SELFPAY | PROVIDERS: PCP Family Medicine; Visit Provider Hospitalist | DX: J45.40 Moderate persistent asthma, uncomplicated (principal); J33.9 Nasal polyp, unspecified; J01.91 Acute recurrent sinusitis, unspecified; R91.8 Other nonspecific abnormal finding of lung field | CPT/HCPCS: 99212 ==

== ENCOUNTER → 2021-09-22 15:19 | Outpatient (BNVA) | payer MEDICAID, SELFPAY | PROVIDERS: PCP Family Medicine; Visit Provider Urology ==

== ENCOUNTER 2021-10-11 18:33 | Emergency (ER) | payer MEDICAID, SELFPAY ==
--- NOTE | ~2021-10-11 | XR_ITS ---
EXAMINATION: XR HAND, RIGHT CLINICAL INFORMATION: Pain in first finger on the right COMPARISON: None TECHNIQUE: PA, lateral, and oblique views of the right hand. FINDINGS: The bones and soft tissues are normal. No fracture. Alignment is anatomic. Joint spaces are maintained. No erosions or soft tissue calcifications. XR/XR hand RT 2V IMPRESSION: Normal right hand.
[2021-10-11 18:35] VITALS: BP 151/89; PULSE 84; RESP 16; TEMP 36.8; O2SAT 99; BMI 31.0
[2021-10-11 19:31] VITALS: BP 152/81; PULSE 71; RESP 18; TEMP 36.8; O2SAT 99
--- NOTE | 2021-10-11 20:43 | ED.GENADULT ---
HPI - General Adult General Chief complaint: Extremity Problem Stated complaint: rt thumb pain and swollen Time Seen by Provider: 10/11/21 20:19 Source: patient Mode of arrival: ambulatory Limitations: no limitations History of Present Illness HPI narrative: 56 yold male with pmh of DM presents to the ED for right thumb pain. Patient states yesterday having pain around lower part of thumb/joint area with redness. patient denies any recent trauma to area, fever, chills, animal bite or human bite. Patient denies any IV drug use or any immunized compromise diseases. Related Data Home Medications Medication Instructions Recorded Confirmed albuterol sulfate 90 mcg/actuation 2 puff INHALATION Q4-6H PRN 08/04/20 05/13/21 aerosol inhaler (ProAir HFA) aspirin 81 mg tablet,delayed 81 mg PO DAILY 08/04/20 05/13/21 release fluticasone propionate 50 2 spray INTRANASAL DAILY 12/24/20 05/13/21 mcg/actuation nasal spray,suspension amlodipine 10 mg tablet 10 mg PO DAILY 06/22/21 atorvastatin 80 mg tablet 80 mg PO BEDTIME 06/22/21 blood sugar diagnostic (FreeStyle #10 ea 06/22/21 Lite Strips) lancets 33 gauge (TRUEplus Lancets) #100 ea 06/22/21 lisinopril 40 mg tablet 40 mg PO DAILY 06/22/21 omeprazole 20 mg capsule,delayed 20 mg PO DAILY 06/22/21 release cetirizine 10 mg tablet 10 mg PO QAM 09/22/21 metformin 500 mg tablet 500 mg PO BID 09/22/21 Previous Rx's Medication Instructions Recorded montelukast 10 mg tablet 10 mg PO DAILY 30 Days #30 tab 02/22/21 tadalafil 5 mg tablet 5 mg PO DAILY PRN 90 Days #90 tab 06/22/21 azithromycin 500 mg tablet 500 mg PO DAILY 5 Days #5 tab 07/26/21 oxymetazoline 0.05 % nasal mist 2 spray INTRANASAL Q12H PRN 3 Days 07/26/21 (Afrin (oxymetazoline)) #15 ml levofloxacin 250 mg tablet 250 mg PO DAILY 10 Days #10 tab 08/02/21 prednisone 10 mg tablet 10 mg PO DAILY 10 Days #10 tab 08/02/21 azelastine 137 mcg (0.1 %) nasal 2 spray INTRANASAL BID #30 ml 09/30/21 spray aerosol loratadine 10 mg tablet 10 mg PO DAILY #30 tab 10/01/21 clindamycin HCl 300 mg capsule 300 mg PO QID 10 Days #40 cap 10/11/21 indomethacin 50 mg capsule 50 mg PO TID 5 Days #15 cap 10/11/21 Allergies Allergy/AdvReac Type Severity Reaction Status Date / Time amoxicillin [AMOXICILLIN] Allergy Severe ANAPHYLAXIS Verified 09/22/21 15:20 Penicillins Allergy Severe UNKNOWN Verified 09/22/21 15:20 REACTION-CHILDHOOD doxycycline [From VIBRAMYCIN] AdvReac Mild DIARRHEA Verified 09/22/21 15:20 Clindamycin HCl Allergy Severe Anaphylaxis Uncoded 08/02/21 14:02 Review of Systems Review of Systems: thumb pain Yes all other systems are reviewed and are negative [facility] Past Medical History Medical History (Updated 10/12/21 @ 00:01 by Jose Donaldson) Asthma Colitis Diabetes GERD (gastroesophageal reflux disease) HTN (hypertension) Nasal polyps Orchialgia Pulmonary nodules Rectal bleeding Weak urinary stream Surgical History H/O wrist surgery Family History Family History Father Diabetes Hypertension Mother Hypertension Hyperlipidemia Brother Hypertension Family/Other Kidney stones Prostate cancer Bladder cancer Renal cancer Social History Social History Alcohol intake: never Patient Tobacco Use Status: Former Tobacco user Tobacco use type: Cigarette Years Smoked: 30 years Advance Directives: No Advance Directives Information Provided: No Physical Exam ED Vital Signs: Vital Signs - 24 hr 10/11/21 18:35 10/11/21 19:31 Temperature 98.3 F 98.2 F Pulse Rate 84 71 Respiratory Rate 16 18 Blood Pressure 151/89 H 152/81 H Pulse Oximetry 99 99 BMI result Body Mass Index 31.0 Const General: cooperative, healthy appearing, comfortable, no acute distress, well developed, alert, awake and Physically active Orientation/consciousness: patient oriented x3 HENMT Head: Yes normal to inspection, Yes No palpable skull fracture present, Yes normocephalic, Yes atraumatic and No abrasion Eyes General: appearance normal, both eyes and all related structures Neck Neck: Yes normal visual inspection, Yes full ROM, Yes no lymphadenopathy, Yes no meningeal signs, Yes trachea midline, Yes supple, No anterior neck swelling and No tender Chest Chest palpation & inspection: normal inspection of the chest and normal palpation of entire chest wall Resp Effort & Inspection: normal respiratory effort and able to speak in complete sentences Auscultation: clear to auscultation bilaterally Cardio Jugular venous distension: no JVD Heart sounds: S1 normal heart sound present and S2 normal heart sound present GI Inspection: Yes normal to inspection and No abdominal wall ecchymosis Palpation (GI): Soft to palpation, not firm, nontender, no guarding and not rigid General: No CVA tenderness and Yes no CVA tenderness Back/Spine/Pelvis Back: no CVA tenderness, No CVA tenderness and No back tenderness Skin General skin exam: no rashes or lesions noted and elasticity normal Neuro General: patient oriented x3, gait normal, no meningeal signs and CN's II-XI intact bilaterally Cranial nerves: Yes CN's II-XII intact bilaterally Extrem Other: General: Yes normal to inspection and Yes full ROM Hand/finger images: 1. positive for erythema/warmth around. patient has complete range of motion. negative for decrease in extension/flexion. Capillar refill intact. negative for any pus discharge or foul odor. Thumb ( digit) itself is not swollen and negative for any erythema/warmth. Negative Kanavel sign 2. positive for erythema/warmth around. patient has complete range of motion. negative for decrease in extension/flexion. Capillar refill intact. negative for any pus discharge or foul odor. Thumb ( digit) itself is not swollen and negative for redness. its more at joint area. Negative for Kanavel sign Psych Appearance: grossly normal, well kempt and not disheveled Course Course Course Narrative: hand xray ordered Reevaluation(s) Reevaluation #1: Hand x-ray negative for osteomyelitis. Physical exam negative for signs of tenosynovitis or arterial occlusion. Not suspecting septic arthritis. Patient vital signs are stable. Patient has range of motion of thumb finger and thumb joint. Differential my cellulitis versus gout. Will discharge with antibiotics and indomethacin. Time: 21:03 Medical Decision Making [facility] Narrative Medical decision making narrative: Cellulitis/gout Discharge Plan Discharge Clinical Impression: Cellulitis, Gout Patient Disposition: Home, Self-Care Instructions: Cellulitis (DC), Gout (ED) Additional Instructions: Presently not suspecting septic arthritis. History physical exam indicates cellulitis versus possible gout. Since your diabetic you will be discharged with antibiotics. You will be discharged also with indomethacin. Please follow-up with primary care provider. Return to the ED immediately for increased swelling, actual swelling/redness of thumb digit, inability to move finger, increased redness, red streaks, swelling of rest of upper extremities, fevers, chills, or any other concerning symptoms. Recommend warm compresses 4 times a day for 15 minutes on area. Prescriptions: New clindamycin HCl 300 mg capsule 300 mg PO QID 10 Days Qty: 40 0RF indomethacin 50 mg capsule 50 mg PO TID 5 Days Qty: 15 0RF Rx Instructions: administer with food or milk No Action montelukast 10 mg tablet 10 mg PO DAILY 30 Days Qty: 30 11RF azelastine 137 mcg (0.1 %) aerosol,spray 2 spray intranasal BID Qty: 30 6RF loratadine 10 mg tablet 10 mg PO DAILY Qty: 30 6RF albuterol sulfate [ProAir HFA] 90 mcg/actuation HFA aerosol inhaler 2 puff inhalation Q4-6H PRN0RF aspirin 81 mg tablet,delayed release (DR/EC) 81 mg PO DAILY 0RF fluticasone propionate 50 mcg/actuation spray,suspension 2 spray intranasal DAILY 0RF Rx Instructions: administer into each nostril lisinopril 40 mg tablet 40 mg PO DAILY 0RF amlodipine 10 mg tablet 10 mg PO DAILY 0RF (DME) lancets [TRUEplus Lancets] 33 gauge misc See Rx Instructions ea Not Applicable TID Qty: 100 0RF Rx Instructions: As directed omeprazole 20 mg capsule,delayed release(DR/EC) 20 mg PO DAILY 0RF (DME) FreeStyle Lite Strips Strip See Rx Instructions ea Not Applicable TID Qty: 10 0RF Rx Instructions: As directed atorvastatin 80 mg tablet 80 mg PO BEDTIME 0RF tadalafil 5 mg tablet 5 mg PO DAILY PRN (Reason: sexual activity) 90 Days Qty: 90 0RF azithromycin 500 mg tablet 500 mg PO DAILY 5 Days Qty: 5 0RF Afrin (oxymetazoline) 0.05 % mist 2 spray intranasal Q12H PRN (Reason: nasal congestion) 3 Days Qty: 15 0RF cetirizine 10 mg tablet 10 mg PO QAM 0RF metformin 500 mg tablet 500 mg PO BID 0RF levofloxacin 250 mg tablet 250 mg PO DAILY 10 Days Qty: 10 0RF prednisone 10 mg tablet 10 mg PO DAILY 10 Days Qty: 10 0RF Interventions: ED Discharge Assessment Last Done: 10/11/21 21:32 Discharge Date/Time: 10/11/21 21:33 Print Language: Citizen Of [place]
== END 2021-10-11 21:33 | disposition home or self-care (01) ==
PROVIDERS: Emergency Provider Internal Medicine; PCP Family Medicine
DX: L03.011 Cellulitis of right finger (principal); M10.9 Gout, unspecified; E11.9 Type 2 diabetes mellitus without complications; I10 Essential (primary) hypertension; Z79.82 Long term (current) use of aspirin; Z87.891 Personal history of nicotine dependence
CPT/HCPCS: 73120; 99283; 99284

== ENCOUNTER 2021-12-27 12:58 | Outpatient (REF) | payer MEDICARE, MEDICAID, SELFPAY ==
--- NOTE | ~2021-12-27 | CT_ITS ---
EXAMINATION: CT ABDOMEN AND PELVIS WITH CONTRAST CLINICAL INFORMATION: Noninfective gastroenteritis and colitis. COMPARISON: None. TECHNIQUE: Multidetector volumetric images were obtained from the superior aspect of the liver through the pubic symphysis following administration 85 mL of Omnipaque 350 intravenous contrast. Sagittal and coronal reformatted images were obtained on the technologist's workstation. Oral contrast: 500 mL of Redicat This CT examination was performed using dose optimization techniques as appropriate, variously including the following: *Automated exposure control *Adjustment of mA and/or kV according to patient size (this includes techniques or standardized protocols for targeted exams where dose is matched to indication/reason for exam; i.e. extremities or head) *Use of iterative reconstruction technique DLP: 700 mGy-cm. FINDINGS: LUNG BASES: The visualized lung bases are unremarkable. LIVER, GALLBLADDER, AND BILIARY TREE: The liver is normal in size, shape, and attenuation. No focal hepatic lesion or biliary ductal dilatation is present. The gallbladder is unremarkable with no evidence of radiopaque gallstones, gallbladder wall thickening, or obvious pericholecystic inflammatory changes. PANCREAS: Unremarkable. SPLEEN: Unremarkable. ADRENAL GLANDS: Unremarkable. KIDNEYS AND URETERS: The kidneys are normal in size, shape, and attenuation. No hydronephrosis, hydroureter, or calculi seen. No perinephric stranding. There are exophytic cysts measuring 1.2 cm and 0.7 mm adjacent to each other midpole left kidney. There is a 5 mm hypodensity midpole posterior cortex right kidney probable cyst. BLADDER: Unremarkable. GASTROINTESTINAL TRACT: Contrast opacified colon is normal caliber. There is scattered colonic diverticulosis but no diverticulitis or distention. The small bowel loops are normal caliber. Appendix is not visualized. The stomach is nondistended and appears unremarkable. No inflammatory process, free air or air-fluid level seen. ABDOMINAL WALL: No significant hernia is appreciated. LYMPH NODES: Normal. VASCULAR: Unremarkable. PELVIC VISCERA: Unremarkable. OSSEOUS STRUCTURES: There is no lytic or sclerotic process. There is mild ventral spondylosis mid lumbar spine. CT/CT abdomen pelvis w con IMPRESSION: Scattered colonic diverticulosis without diverticulitis. No mural thickening or colonic distention. Bilateral renal cysts. No radiopaque renal calculi or hydronephrosis. Fleischner guidelines were followed.
[2021-12-27] MEDS: Barium Sulfate Oral (Vanilla) 450 ML ORAL.SUSP 900 ML PO (16:16)
[2021-12-27] MEDS: iohexoL 350 MG/ML 100 ML INFUS..BTL IV (16:17)
== END 2021-12-27 12:59 | disposition home or self-care (01) ==
LOC: HO.CT 12:58
PROVIDERS: PCP Family Medicine; Visit Provider Family Medicine
DX: K52.9 Noninfective gastroenteritis and colitis, unspecified (principal); R91.8 Other nonspecific abnormal finding of lung field
CPT/HCPCS: 74177; Q9967

== ENCOUNTER 2022-01-28 02:30 | Emergency (ER) | payer MEDICARE, MEDICAID, SELFPAY ==
--- NOTE | 2022-01-28 | ECG_ITS ---
Test Reason : HIGH BP Blood Pressure : / mmHG Vent. Rate : 063 BPM Atrial Rate : 063 BPM P-R Int : 122 ms QRS Dur : 088 ms QT Int : 410 ms P-R-T Axes : 022 052 043 degrees QTc Int : 419 ms Normal sinus rhythm Normal ECG When compared with ECG of 21-JAN-2021 12:40, No significant change was found Referred By: Generic ED Physician Electronically Signed By:LAITH LIZAMA MD
--- NOTE | ~2022-01-28 | XR_ITS ---
EXAMINATION: XR CHEST CLINICAL INFORMATION: Palpitations COMPARISON: 07/28/2021 TECHNIQUE: 2 views of the chest were obtained. FINDINGS: The lungs are clear with no focal consolidation. No evidence of pneumothorax, pulmonary edema, or pleural effusions. Previously identified lung nodules on CT are not adequately demonstrated radiographically. The cardiomediastinal contour is unremarkable. Degenerative changes are noted in the spine. XR/XR chest 2V IMPRESSION: No acute cardiopulmonary findings.
[2022-01-28 02:38] VITALS: BP 181/87; PULSE 64; RESP 14; TEMP 36.8; O2SAT 97; BMI 31.9
[2022-01-28 03:01] LABS: Hematocrit 38.8 % (42.0-52.0); Hemoglobin 13.3 g/dl (14.0-18.0); Mean Corpuscular HGB Conc 34.3 g/dl (31.0-36.0); Mean Corpuscular Hemoglobin 30.4 pg (27.0-33.0); Mean Corpuscular Volume 88.8 fL (80.0-98.0); Mean Platelet Volume 10.5 fL (9.4-12.4); Platelet Count 227 X10*3/uL (160-400); Red Blood Count 4.37 X10*6/uL (4.60-5.80); Red Cell Distribution Width 12.3 % (11.0-16.0); White Blood Count 6.1 X10*3/uL (4.8-10.8)
[2022-01-28 03:20] LABS: Alanine Aminotransferase 18 U/L (0-40); Albumin Level 4.1 g/dL (3.5-5.0); Alkaline Phosphatase 109 U/L (39-117); Anion Gap 12 (12-20); Aspartate Amino Transferase 19 U/L (5-37); Bilirubin Total 0.5 mg/dL (0.0-1.0); Blood Urea Nitrogen 19 mg/dL (9-16); Calcium 9.6 mg/dL (8.4-10.2); Carbon Dioxide 27 mmol/L (22-29); Chloride 105 mmol/L (96-108); Creatinine Clr Calc Pharmacy 91.2; Estimated Glomerular Filt Rate > 60; Glucose Random 135 mg/dL (60-115); Potassium 3.7 mmol/L (3.3-5.1); Sodium 140 mmol/L (135-145); Total Protein 6.8 g/dL (6.5-8.0)
[2022-01-28 03:22] LABS: Troponin-I High Sensitivity 7.8 ng/L (<3.5-35.0)
[2022-01-28 03:35] VITALS: BP 159/91; PULSE 56; RESP 18; O2SAT 97
[2022-01-28 04:16] VITALS: PULSE 54; RESP 16; O2SAT 98
--- NOTE | 2022-01-28 04:44 | ED.CHESTPAIN ---
HPI - Chest Pain General Chief Complaint: Chest Pain Stated Complaint: HIGH bp, weknesss Time Seen by Provider: 01/28/22 04:42 Source: patient Mode of arrival: ambulatory Limitations: no limitations History of Present Illness HPI narrative: 56-year-old male came in for evaluation of palpitation. Patient was watching TV earlier tonight when felt little palpitation on the left side of his chest, also felt tightness in her chest, no radiation, patient checked his blood pressure founded to be very high, patient was unsure if he took his blood pressure medication today or not, patient got anxious and came to the hospital. While patient waiting to be seen symptoms completely disappeared, declined any SOB, no fever, no chills. Related Data Home Medications Medication Instructions Recorded Confirmed albuterol sulfate 90 mcg/actuation 2 puff INHALATION Q4-6H PRN 08/04/20 05/13/21 aerosol inhaler (ProAir HFA) aspirin 81 mg tablet,delayed 81 mg PO DAILY 08/04/20 05/13/21 release fluticasone propionate 50 2 spray INTRANASAL DAILY 12/24/20 05/13/21 mcg/actuation nasal spray,suspension amlodipine 10 mg tablet 10 mg PO DAILY 06/22/21 atorvastatin 80 mg tablet 80 mg PO BEDTIME 06/22/21 blood sugar diagnostic (FreeStyle #10 ea 06/22/21 Lite Strips) lancets 33 gauge (TRUEplus Lancets) #100 ea 06/22/21 lisinopril 40 mg tablet 40 mg PO DAILY 06/22/21 omeprazole 20 mg capsule,delayed 20 mg PO DAILY 06/22/21 release cetirizine 10 mg tablet 10 mg PO QAM 09/22/21 metformin 500 mg tablet 500 mg PO BID 09/22/21 Previous Rx's Medication Instructions Recorded montelukast 10 mg tablet 10 mg PO DAILY 30 Days #30 tab 02/22/21 tadalafil 5 mg tablet 5 mg PO DAILY PRN 90 Days #90 tab 06/22/21 azithromycin 500 mg tablet 500 mg PO DAILY 5 Days #5 tab 07/26/21 oxymetazoline 0.05 % nasal mist 2 spray INTRANASAL Q12H PRN 3 Days 07/26/21 (Afrin (oxymetazoline)) #15 ml levofloxacin 250 mg tablet 250 mg PO DAILY 10 Days #10 tab 08/02/21 prednisone 10 mg tablet 10 mg PO DAILY 10 Days #10 tab 08/02/21 azelastine 137 mcg (0.1 %) nasal 2 spray INTRANASAL BID #30 ml 09/30/21 spray aerosol loratadine 10 mg tablet 10 mg PO DAILY #30 tab 10/01/21 clindamycin HCl 300 mg capsule 300 mg PO QID 10 Days #40 cap 10/11/21 indomethacin 50 mg capsule 50 mg PO TID 5 Days #15 cap 10/11/21 Allergies Allergy/AdvReac Type Severity Reaction Status Date / Time amoxicillin [AMOXICILLIN] Allergy Severe ANAPHYLAXIS Verified 09/22/21 15:20 Penicillins Allergy Severe UNKNOWN Verified 09/22/21 15:20 REACTION-CHILDHOOD doxycycline [From VIBRAMYCIN] AdvReac Mild DIARRHEA Verified 09/22/21 15:20 Clindamycin HCl Allergy Severe Anaphylaxis Uncoded 08/02/21 14:02 Review of Systems Review of Systems: All other systems are reviewed and are negative Constitutional: Reports as per HPI and Reports no additional constitutional complaints Eyes: Reports as per HPI and Reports no additional eye complaints Reports system reviewed and no additional complaints, except as documented Cardiovascular: Reports as per HPI and Reports no additional cardiovascular complaints Respiratory: Reports as per HPI and Reports no additional respiratory complaints Gastrointestinal: Reports as per HPI and Reports no additional gastrointestinal complaints Genitourinary: Reports no additional female genitourinary complaints Musculoskeletal: Reports no additional musculoskeletal complaints Skin/Breast: Reports system reviewed and no additional complaints, except as docu Psychiatric: Reports no additional psychiatric complaints Endocrine: Reports no additional endocrine complaints Hematologic/Lymphatic: Reports no additional hematologic/lymphatic complaints Allergic/Immunologic: Reports no additional allergic/immunologic complaints Reports system reviewed and no additional complaints, except as documented and Reports Abnormal speech present [facility] Past Medical History Medical History Asthma Colitis Diabetes GERD (gastroesophageal reflux disease) HTN (hypertension) Nasal polyps Orchialgia Pulmonary nodules Rectal bleeding Weak urinary stream Surgical History H/O wrist surgery Family History Family History Father Diabetes Hypertension Mother Hypertension Hyperlipidemia Brother Hypertension Family/Other Kidney stones Prostate cancer Bladder cancer Renal cancer Social History Social History Alcohol intake: never Patient Tobacco Use Status: Former Tobacco user Tobacco use type: Cigarette Years Smoked: 30 years Advance Directives: No Physical Exam Vital Signs: Vital Signs: Last Vital Signs Temp 98.2 F 01/28/22 02:38 Pulse 54 01/28/22 04:16 Resp 16 01/28/22 04:16 BP 159/91 H 01/28/22 03:35 Pulse Ox 98 01/28/22 04:16 BMI result Body Mass Index 31.9 Vital signs have been reviewed as appeared to be correct. Blood pressure normal. Heart rate normal. Respiration rate normal. Temperature normal. Oxygen saturation normal. Appearance: Alert. Oriented X3. No acute distress. Head: Normal external exam. Normocephalic. Atraumatic. No Meeks signs noted. No raccoon eyes noted Eyes: PERRLA. EOMI. Conjunctiva and sclera normal. Eyelids normal. ENT: TM's Normal. Pharynx normal. Uvula midline. Moist mucous membranes. No trismus noted. No drooling noted. No muffled voice noted. Neck: Normal inspection. Neck supple. FROM. No adenopathy. Thyroid Normal. No meningeal signs. No neck mass noted. CVS: Normal heart rate and rhythm. Heart sound normal. No murmurs noted. Pulses normal throughout. Respiratory: No respiratory distress. Painless inspiration. Breath sounds normal. No wheezes/rales/rhonchi noted. Chest nontender. No accessory muscle usage noted or decreased air movement noted. Abdomen: Soft and nontender. Bowel sounds normal in all 4 quadrants. No distention noted. No organomegaly noted. No visible injury noted. Back: No CVA tenderness. Full range of motion noted. Skin: Skin warm and dry. Normal skin color. Normal skin turgor. No rashes/lesions/lacerations noted. Extremities: No lower extremity edema. Extremities exhibit normal range of motion. Extremities nontender. Neuro: Oriented X 3. Cranial nerve exam: II-XII are grossly intact No motor deficit. No sensory deficit. Reflexes normal. Course Course Course Narrative: Assessment and plan. 56-year-old male came in with feeling palpitation and chest tightness, normal EKG, normal troponin x2. Will discharge to follow-up with PCP. [facility] - Chest Pain Medical Records Data Attestation: I reviewed the patient's medical records. Lab Data Attestation: I reviewed the patient's lab results. Result diagrams: 01/28/22 02:52 01/28/22 02:52 Labs: Lab Results 01/28/22 01/28/22 01/28/22 Range/Units 02:52 02:52 02:52 WBC 6.1 (4.8-10.8) X10*3/uL RBC 4.37 L (4.60-5.80) X10*6/uL Hgb 13.3 L (14.0-18.0) g/dl Hct 38.8 L (42.0-52.0) % MCV 88.8 (80.0-98.0) fL MCH 30.4 (27.0-33.0) pg MCHC 34.3 (31.0-36.0) g/dl RDW 12.3 (11.0-16.0) % Plt Count 227 (160-400) X10*3/uL MPV 10.5 (9.4-12.4) fL Absolute Nucleated RBC 0.000 (0.0-0.012) X10*3/uL Nucleated RBC % (auto) 0.0 (0.0-0.2) /100WBC Sodium 140 (135-145) mmol/L Potassium 3.7 (3.3-5.1) mmol/L Chloride 105 (96-108) mmol/L Carbon Dioxide 27 (22-29) mmol/L Anion Gap 12 (12-20) BUN 19 H (9-16) mg/dL Creatinine 1.00 (0.5-1.4) mg/dL Estim Creat Clear Calc 91.2 Estimated GFR > 60 Random Glucose 135 H (60-115) mg/dL Calcium 9.6 (8.4-10.2) mg/dL Total Bilirubin 0.5 (0.0-1.0) mg/dL AST 19 (5-37) U/L ALT 18 (0-40) U/L Alkaline Phosphatase 109 (39-117) U/L Troponin I High Sens 7.8 (<3.5-35.0) ng/L Total Protein 6.8 (6.5-8.0) g/dL Albumin 4.1 (3.5-5.0) g/dL 06/03/22 Range/Units 04:54 WBC (4.8-10.8) X10*3/uL RBC (4.60-5.80) X10*6/uL Hgb (14.0-18.0) g/dl Hct (42.0-52.0) % MCV (80.0-98.0) fL MCH (27.0-33.0) pg MCHC (31.0-36.0) g/dl RDW (11.0-16.0) % Plt Count (160-400) X10*3/uL MPV (9.4-12.4) fL Absolute Nucleated RBC (0.0-0.012) X10*3/uL Nucleated RBC % (auto) (0.0-0.2) /100WBC Sodium (135-145) mmol/L Potassium (3.3-5.1) mmol/L Chloride (96-108) mmol/L Carbon Dioxide (22-29) mmol/L Anion Gap (12-20) BUN (9-16) mg/dL Creatinine (0.5-1.4) mg/dL Estim Creat Clear Calc Estimated GFR Random Glucose (60-115) mg/dL Calcium (8.4-10.2) mg/dL Total Bilirubin (0.0-1.0) mg/dL AST (5-37) U/L ALT (0-40) U/L Alkaline Phosphatase (39-117) U/L Troponin I High Sens 7.9 (<3.5-35.0) ng/L Total Protein (6.5-8.0) g/dL Albumin (3.5-5.0) g/dL Imaging Data Chest x-ray: Attestation: I personally reviewed and interpreted this imaging study as follows: Radiologist's impression: No acute cardiopulmonary findings. ECG Data ECG #1: Attestation: I personally reviewed and interpreted this ECG as follows: Interpretation: Normal sinus rhythm at 63 beats per minute normal intervals, normal axis deviation, no ST-T changes. Discharge Plan Discharge Clinical Impression: Palpitations, Hypertension Patient Disposition: Home, Self-Care Instructions: Heart Palpitations (ED) Prescriptions: No Action montelukast 10 mg tablet 10 mg PO DAILY 30 Days Qty: 30 11RF azelastine 137 mcg (0.1 %) aerosol,spray 2 spray intranasal BID Qty: 30 6RF loratadine 10 mg tablet 10 mg PO DAILY Qty: 30 6RF clindamycin HCl 300 mg capsule 300 mg PO QID 10 Days Qty: 40 0RF indomethacin 50 mg capsule 50 mg PO TID 5 Days Qty: 15 0RF Rx Instructions: administer with food or milk albuterol sulfate [ProAir HFA] 90 mcg/actuation HFA aerosol inhaler 2 puff inhalation Q4-6H PRN0RF aspirin 81 mg tablet,delayed release (DR/EC) 81 mg PO DAILY 0RF fluticasone propionate 50 mcg/actuation spray,suspension 2 spray intranasal DAILY 0RF Rx Instructions: administer into each nostril lisinopril 40 mg tablet 40 mg PO DAILY 0RF amlodipine 10 mg tablet 10 mg PO DAILY 0RF (DME) lancets [TRUEplus Lancets] 33 gauge misc See Rx Instructions ea Not Applicable TID Qty: 100 0RF Rx Instructions: As directed omeprazole 20 mg capsule,delayed release(DR/EC) 20 mg PO DAILY 0RF (DME) FreeStyle Lite Strips Strip See Rx Instructions ea Not Applicable TID Qty: 10 0RF Rx Instructions: As directed atorvastatin 80 mg tablet 80 mg PO BEDTIME 0RF tadalafil 5 mg tablet 5 mg PO DAILY PRN (Reason: sexual activity) 90 Days Qty: 90 0RF azithromycin 500 mg tablet 500 mg PO DAILY 5 Days Qty: 5 0RF Afrin (oxymetazoline) 0.05 % mist 2 spray intranasal Q12H PRN (Reason: nasal congestion) 3 Days Qty: 15 0RF cetirizine 10 mg tablet 10 mg PO QAM 0RF metformin 500 mg tablet 500 mg PO BID 0RF levofloxacin 250 mg tablet 250 mg PO DAILY 10 Days Qty: 10 0RF prednisone 10 mg tablet 10 mg PO DAILY 10 Days Qty: 10 0RF Referrals: Ashley Frankel MD [Primary Care Provider] -
[2022-01-28 05:16] LABS: Troponin-I High Sensitivity 7.9 ng/L (<3.5-35.0)
== END 2022-01-28 05:59 | disposition home or self-care (01) ==
PROVIDERS: Emergency Provider Emergency Medicine; PCP Family Medicine
DX: R00.2 Palpitations (principal); I10 Essential (primary) hypertension; R07.89 Other chest pain; E11.9 Type 2 diabetes mellitus without complications; J45.909 Unspecified asthma, uncomplicated
CPT/HCPCS: 36415; 71046; 80053; 84484; 85027; 93005; 99283; 99284

== ENCOUNTER → 2022-02-17 13:13 | Outpatient (BNVA) | payer MEDICARE, MEDICAID, SELFPAY | PROVIDERS: PCP Family Medicine; Referring Provider Family Medicine; Visit Provider Nurse Practitioner | DX: K62.5 Hemorrhage of anus and rectum (principal); K21.9 Gastro-esophageal reflux disease without esophagitis | CPT/HCPCS: 99202 ==

== ENCOUNTER 2022-03-24 10:00 | Outpatient (RCR) | payer MEDICARE, MEDICAID, SELFPAY ==
[2022-02-24 14:03] VITALS: BP 167/82; PULSE 64
== END 2022-04-28 13:50 | disposition home or self-care (01) ==
LOC: HO.PT 10:00
PROVIDERS: PCP Family Medicine; Visit Provider Emergency Medicine
DX: H81.11 Benign paroxysmal vertigo, right ear (principal)
CPT/HCPCS: 95992; 97110; 97112; 97140; 97161

== ENCOUNTER 2022-05-14 13:06 | Emergency (ER) | payer MEDICARE, MEDICAID, SELFPAY ==
[2022-05-14 14:32] VITALS: BP 156/81; PULSE 63; RESP 18; TEMP 36.7; O2SAT 98; BMI 30.4
--- NOTE | 2022-05-14 14:34 | ECG_ITS ---
Test Reason : HIGH BLOOD PRESSURE Blood Pressure : / mmHG Vent. Rate : 060 BPM Atrial Rate : 060 BPM P-R Int : 140 ms QRS Dur : 090 ms QT Int : 408 ms P-R-T Axes : 040 047 054 degrees QTc Int : 408 ms Normal sinus rhythm Normal ECG When compared with ECG of 28-JAN-2022 02:42, No significant change was found Referred By: Generic ED Physician Electronically Signed By:YVON ARGUELLO
[2022-05-14 16:07] LABS: MANUAL DIFF FLAG NO
[2022-05-14 16:09] LABS: Basophils Percent Auto 0.3 % (0-2); Eosinophils Percent Auto 0.6 % (0-4); Hematocrit 41.8 % (42.0-52.0); Imm Gran Abs Auto 0.03 X10*3/uL (0.00-0.03); Imm Gran Pct Auto 0.4 % (0.0-0.4); Lymphocytes Absolute Auto 1.6 X10*3/uL (1.2-4.9); Lymphocytes Percent Auto 22.8 % (20-40); Mean Corpuscular HGB Conc 33.5 g/dl (31.0-36.0); Mean Corpuscular Hemoglobin 29.9 pg (27.0-33.0); Mean Corpuscular Volume 89.3 fL (80.0-98.0); Mean Platelet Volume 10.3 fL (9.4-12.4); Monocytes Absolute Auto 0.7 X10*3/uL (0.1-1.2); Monocytes Percent Auto 9.3 % (2-11); Neutrophils Absolute Auto 4.7 x10*3/uL (2.0-8.3); Neutrophils Percent Auto 66.6 % (45-73); Platelet Count 301 X10*3/uL (160-400); Red Blood Count 4.68 X10*6/uL (4.60-5.80)
[2022-05-14 16:17] LABS: Prothrombin Time 11.7 SEC (10.0-13.1)
[2022-05-14 16:24] LABS: Magnesium 2.2 mg/dL (1.6-2.6)
[2022-05-14 16:26] LABS: Alanine Aminotransferase 18 U/L (0-40); Albumin Level 4.3 g/dL (3.5-5.0); Alkaline Phosphatase 106 U/L (39-117); Anion Gap 14 (12-20); Aspartate Amino Transferase 20 U/L (5-37); Bilirubin Total 0.6 mg/dL (0.0-1.0); Blood Urea Nitrogen 17 mg/dL (9-16); Calcium 9.7 mg/dL (8.4-10.2); Carbon Dioxide 28 mmol/L (22-29); Chloride 104 mmol/L (96-108); Estimated Glomerular Filt Rate > 60; Glucose Random 113 mg/dL (60-115); Potassium 4.2 mmol/L (3.3-5.1); Sodium 142 mmol/L (135-145); Total Protein 7.2 g/dL (6.5-8.0)
[2022-05-14 16:29] LABS: Troponin-I High Sensitivity 5.3 ng/L (<3.5-35.0)
[2022-05-14 18:20] VITALS: BP 135/90
== END 2022-05-14 19:26 | disposition left against medical advice (07) ==
PROVIDERS: Physician Assistant Medical; Emergency Provider Emergency Medicine; PCP Family Medicine
DX: I10 Essential (primary) hypertension (principal); E11.9 Type 2 diabetes mellitus without complications; E78.00 Pure hypercholesterolemia, unspecified; Z86.19 Personal history of other infectious and parasitic diseases
CPT/HCPCS: 36415; 80053; 83735; 84484; 85025; 85610; 93005; 99282; 99283

== ENCOUNTER 2022-06-22 09:46 | Outpatient (REF) | payer MEDICARE, MEDICAID, SELFPAY ==
--- NOTE | ~2022-06-22 | US_ITS ---
EXAMINATION: US VENOUS ULTRASOUND WITH DOPPLER LOWER EXTREMITY, RIGHT CLINICAL INFORMATION: Medial right thigh pain. COMPARISON: None TECHNIQUE: Ultrasound of the deep veins is performed from the hip to the calf with compression sonography and color and pulse Doppler assessment. Spectral analysis with color-flow imaging is performed. FINDINGS: There is normal venous compression and respiratory variation and augmented flow. The visualized common femoral vein, superficial femoral vein, profunda femoral vein, popliteal vein, and the trifurcation region shows no evidence of deep venous thrombosis. No right popliteal cyst. The subcutaneous soft tissues are unremarkable. If the patient's symptoms persist, followup ultrasound in 5 days 7 days might be of value to exclude proximal propagation from a non-visualized calf vein. US/US venous duplex LE RT IMPRESSION: No evidence for deep venous thrombosis in the visualized veins of the right lower extremity.
== END 2022-06-22 09:47 | disposition home or self-care (01) ==
LOC: HO.US 09:46
PROVIDERS: PCP Family Medicine; Visit Provider Emergency Medicine
DX: M79.651 Pain in right thigh (principal)
CPT/HCPCS: 93971

== ENCOUNTER 2022-08-03 04:35 | Emergency (ER) | payer MEDICARE, MEDICAID, SELFPAY ==
[2022-08-03 04:44] VITALS: BP 157/101; PULSE 111; RESP 18; TEMP 37.3; O2SAT 96; BMI 30.4
[2022-08-03 05:37] LABS: Influenza A PCR NEGATIVE (Negative); Influenza B PCR NEGATIVE (Negative); Resp Syncy Virus RNA Qual PCR POSITIVE (Negative); SARS COV2 PCR INHOUSE NEGATIVE (Negative)
[2022-08-03 08:03] VITALS: BP 130/80; PULSE 82; RESP 16; TEMP 37; O2SAT 96
--- OUTSIDE RECORDS SUMMARY | 2022-08-03 08:08 | XMS_ITS | Continuity of Care Document ---
:1965 Author Organization [facility] Address [address] [place] [address]- Care Team Providers Name Role Phone Not on Staff, PCP Primary Care Physician Unavailable [place] [facility] [place] - 07/21/[address] [address]- Discharge Disposition: A-D/C Home Attending Physician: Agustina Norman MD Admitting Physician: Agustina Norman MD Referring Physician: Not on Staff, Referring MD Allergies, Adverse Reactions, Alerts No Known Allergies Results Radiology Reports Exam Date Time Procedure Performing Provider Status 07/21/22 8:24 AM Chest 2 Views Frontal and Lat Kaela Vasquez; Hugo (Verified) Notes:(Chest 2 Views Frontal and Lat) Reason For Exam: Traumatic Chest Pain;Other:RESULT: Chest 2 Views Frontal and Lat Chest 2 Views Frontal and Lat Hx of Present Illness: Pt presents after an unwitnessed fall outside of bar. +ETOH smell on breath. Multiple abrasions to face. C collar in place.; Reason: Other:; Traumatic Chest Pain; Clinical Question(s): Other:; Pneumothorax, Fracture COMPARISON: 12/28/2006. FINDINGS: LINES AND TUBES: None. LUNGS AND PLEURA: No focal consolidation or overt pulmonary edema. No pleural effusion. No pneumothorax. HEART, MEDIASTINUM AND CRISTHIAN: Heart is normal in size. Normal mediastinal and hilar contour. BONES AND SOFT TISSUES: No acute abnormality. Degenerative changes in the spine. IMPRESSION: No acute abnormality. WSN: [id number] Ordering Physician: Srikanth Emery Dictated By: Natanael Dinh MD Dictated Date/Time: 07/21/22 8:42 am Reviewed By: Natanael Dinh MD Signed By: Natanael Dinh MD Signed Date/Time: 07/21/22 8:42 am Transcribed By: PAPITO Transcribed Date/Time: 07/21/22 8:40 am Exam Date Time Procedure Performing Provider Status 07/21/22 5:[address] Cervical Spine W/O Contrast Shanna Alves; Hugo (Verified) Notes:(CT Cervical Spine W/O Contrast) Reason For Exam: Neck trauma, dangerous injury mechanism;Other:RESULT: CT Cervical Spine W/O Contrast CT Head/Brain W/O Contrast, CT Cervical Spine W/O Contrast Hx of Present Illness: Pt presents after an unwitnessed fall outside of bar. Multiple abrasions to face. Reason: Trauma. Clinical Question(s): Intracranial hemorrhage. TECHNIQUE: Incremental CT without contrast through the head was formatted in axial and coronal planes. Spiral CT without contrast through the cervical spine was formatted in 3 planes. Weight-based protocol using automatic tube modulation was used to optimize exposure parameters. CTDIvol Body: 11.10 mGy, DLP Body: 267 mGy*cm. CTDIvol Head: 41.50 mGy, DLP Head: 839 mGy*cm. COMPARISON: CT head from 12/28/2006 FINDINGS: BRAIN and EXTRA-AXIAL SPACES: No parenchymal hemorrhage, midline shift or mass effect. Carlin-white matter differentiation is well preserved. No acute infarct. Negative insular ribbon sign. Atherosclerotic vascular calcification of the carotid arteries but negative hyperdense vessel sign. Ventricles, sulci and basilar cisterns are normal. Mild low-density white matter changes. No subarachnoid hemorrhage, subdural or epidural collections. CALVARIUM, SKULL BASE AND SOFT TISSUES: No fractures or suspicious bony lesions. Age indeterminate, minimally displaced fracture left nasal bone with some overlying soft tissue swelling, possibly acute. Retention cyst in right maxillary sinus, minimal mucosal thickening of the ethmoid air cells. Paranasal sinuses otherwise clear. Mastoid air cells are clear. Visualized orbits and globes are intact. The extracranial soft tissues are unremarkable. CERVICAL SPINE: No fracture. No acute osseous abnormalities. Normal variant incompletely fusion of the posterior C1 arch. Normal alignment. No locked or perched facet. Moderate to marked multilevel degenerative changes. Diffuse, bulky calcification of the anterior longitudinal ligament with large bridging anterior endplate osteophytes from C2 to C7 compatible with DISH. Chronic appearing lucency through the C3-C4 anterior osteophyte (3-5:38). OTHER BONES: No acute abnormality. CERVICAL SOFT TISSUES AND LUNG APICES: Mild paraseptal emphysema of the bilateral lung apices. Normal thyroid gland. IMPRESSION: No acute intracranial or cervical spine abnormality. Cervical spine degenerative changes with bulky bridging anterior endplate osteophytes compatible with DISH. Age indeterminate, minimally displaced fracture left nasal bone with some overlying soft tissue swelling, possibly acute. Please correlate with physical exam and point tenderness. I have personally reviewed the images and I agree with this report. WSN: [id number] Ordering Physician: Nathalia Siegel Dictated By: Hannah Agosto DO Dictated Date/Time: 07/21/22 7:12 am Reviewed By: Franky William MD Signed By: Franky William MD Signed Date/Time: 07/21/22 7:17 am Transcribed By: PAPITO Transcribed Date/Time: 07/21/22 5:52 am Exam Date Time Procedure Performing Provider Status 07/21/22 5:[address] Head/Brain W/O Contrast Shanna Alves; Hugo (Verified) Notes:(CT Head/Brain W/O Contrast) Reason For Exam: TraumaRESULT: CT Head/Brain W/O Contrast CT Head/Brain W/O Contrast, CT Cervical Spine W/O Contrast Hx of Present Illness: Pt presents after an unwitnessed fall outside of bar. Multiple abrasions to face. Reason: Trauma. Clinical Question(s): Intracranial hemorrhage. TECHNIQUE: Incremental CT without contrast through the head was formatted in axial and coronal planes. Spiral CT without contrast through the cervical spine was formatted in 3 planes. Weight-based protocol using automatic tube modulation was used to optimize exposure parameters. CTDIvol Body: 11.10 mGy, DLP Body: 267 mGy*cm. CTDIvol Head: 41.50 mGy, DLP Head: 839 mGy*cm. COMPARISON: CT head from 12/28/2006 FINDINGS: BRAIN and EXTRA-AXIAL SPACES: No parenchymal hemorrhage, midline shift or mass effect. Carlin-white matter differentiation is well preserved. No acute infarct. Negative insular ribbon sign. Atherosclerotic vascular calcification of the carotid arteries but negative hyperdense vessel sign. Ventricles, sulci and basilar cisterns are normal. Mild low-density white matter changes. No subarachnoid hemorrhage, subdural or epidural collections. CALVARIUM, SKULL BASE AND SOFT TISSUES: No fractures or suspicious bony lesions. Age indeterminate, minimally displaced fracture left nasal bone with some overlying soft tissue swelling, possibly acute. Retention cyst in right maxillary sinus, minimal mucosal thickening of the ethmoid air cells. Paranasal sinuses otherwise clear. Mastoid air cells are clear. Visualized orbits and globes are intact. The extracranial soft tissues are unremarkable. CERVICAL SPINE: No fracture. No acute osseous abnormalities. Normal variant incompletely fusion of the posterior C1 arch. Normal alignment. No locked or perched facet. Moderate to marked multilevel degenerative changes. Diffuse, bulky calcification of the anterior longitudinal ligament with large bridging anterior endplate osteophytes from C2 to C7 compatible with DISH. Chronic appearing lucency through the C3-C4 anterior osteophyte (3-5:38). OTHER BONES: No acute abnormality. CERVICAL SOFT TISSUES AND LUNG APICES: Mild paraseptal emphysema of the bilateral lung apices. Normal thyroid gland. IMPRESSION: No acute intracranial or cervical spine abnormality. Cervical spine degenerative changes with bulky bridging anterior endplate osteophytes compatible with DISH. Age indeterminate, minimally displaced fracture left nasal bone with some overlying soft tissue swelling, possibly acute. Please correlate with physical exam and point tenderness. I have personally reviewed the images and I agree with this report. WSN: [id number] Ordering Physician: Nathalia Siegel Dictated By: Hannah Agosto DO Dictated Date/Time: 07/21/22 7:12 am Reviewed By: Franky William MD Signed By: Franky William MD Signed Date/Time: 07/21/22 7:17 am Transcribed By: PAPITO Transcribed Date/Time: 07/21/22 5:52 am Vital Signs Most recent to oldest 1 2 3 [Reference Range]: Oxygen Saturation [94-100 %] 96 % 98 % 100 % (07/21/22 1:35 PM) (07/21/22 8:04 AM) (07/21/22 6:53 AM) Pulse Rate [55-90 bpm] 85 bpm 64 bpm 53 bpm (07/21/22 1:35 PM) (07/21/22 8:04 AM) *L* (07/21/22 6:53 A M) Blood Pressure [90-138/55-84 122/88 mm Hg 128/59 mm Hg 146 /99 mm Hg mm Hg] (07/21/22 1:35 PM) (07/21/22 8:04 AM) *H* (07/21/22 1:28 A M) Respiratory Rate [16-30 18 br/min 18 br/min 15 br/mi n br/min] (07/21/22 1:35 PM) (07/21/22 8:04 AM) *L* (07/21/22 1:28 A M) Temperature [96.8-100.4 98.4 DegF 97.6 DegF 97.5 Deg F DegF] (07/21/22 1:35 PM) (07/21/22 8:04 AM) (07/21/22 1:28 AM) Mode of Delivery (Oxygen) Room air Room air Room a ir (07/21/22 1:35 PM) (07/21/22 8:04 AM) (07/21/22 6:53 AM) Blood pressure sites Arm, left (07/21/22 1:28 AM) Temperature Route Oral Oral Oral (07/21/22 1:35 PM) (07/21/22 8:04 AM) (07/21/22 1:28 AM) Note Ej MORALES, Nick: PERFORM Event Display: Patient Education Leaflets Authored Date: [id number] Alcohol Intoxication ?? [id number] Alcohol Intoxication Alcohol intoxication is very serious. It occurs when you drink alcohol faster than your liver can break it down. Severe intoxication is a medical emergency. It's also called alcohol overdose or alcohol poisoning. It can lead to . Here are some reynolds facts: ??? It can take 10 minutes or more??to start??to??feel the effects of a drink. So it's easy to drink more than you planned. Binge drinking can lead to an alcohol overdose. Binge drinking is having: o 5 or more drinks over a short time for men o 4 or more drinks over a short time for women ??? One drink may be more than 1 serving of alcohol. In some cases, a drink can be 2 to 4 servings. This dependson the type of drink. ??? It takes about 1 hour for your body to break down 1 serving of alcohol. Ifyou have more than 1 drink, it can take a few hours or more. ??? People with alcohol abuse disordersare more likely to get alcohol poisoning. But it can happen to anyone who drinks too much alcohol. Even a first-time drinker is at risk. ??? Many things affect how drinks will affect you. These include: o If you've eaten o How fast you drink o Your weight o How much you normally drink (or not) o Medicines you are taking o If you have a chronic disease o If you are male or female o How old you are Symptoms of alcohol intoxication Mild intoxication ??? Feel more relaxed, less tense ??? Slightly slurred speech ??? Sleepiness ??? Poor motor skills Moderate intoxication ??? Changing behavior, aggression, depression ??? Poor judgment ??? Confusion ??? Trouble focusing ??? Poor balance and coordination ??? Worsening slurred speech Severe intoxication ??? Vomiting ??? Seizures ??? Fainting or passing out (unconscious) ??? Cold, clammy skin ??? Slow or irregular breathing ??? Low body temperature (hypothermia) ??? Coma ?? Health effects Alcohol causes health problems.??This can happen after only drinking a little. There is no set number of drinks or amount of alcohol that's too much.??How much you drink at one time affects your health. And so does drinking often. Alcohol affects your whole body in these ways: ??? Brain.??Alcohol can harm parts of the brain that affect your balance, memory, thinking, and feelings. It can cause memory loss, blackouts, depression, agitation, sleep cycle changes, and seizures.These changes may or may not go away. ??? Heart and vascular system.??Alcohol can damage heart muscle. This can cause the heart muscle to weaken and stretch (cardiomyopathy). This can lead to: o Trouble breathing o Irregular heartbeat o Atrial fibrillation o Leg swelling o Heart failure Alcohol also makes the blood vessels stiffen. This causes high blood pressure. All of these problems raise your risk for heart attacks or strokes. ??? Liver.??Alcohol causes fat to build up in the liver. This affects how the liver works. And it raises the risk for hepatitis. This condition leads to belly pain, appetite loss, yellow skin and eyes (jaundice), and bleeding problems. It also leads to harmful changes inthe liver. These include??liver fibrosis and cirrhosis. This can affect your ability to fight off infections. These liver changes stop it from removing toxins in your blood. This can cause a brain disease called encephalopathy. ??? Pancreas.??Alcohol can cause inflammation of the pancreas (pancreatitis). It can lead to belly pain, fever, and diabetes. ??? Immune system.??Alcohol weakens your immune system. This makes it harder to fight off infections and colds. You'll also have a higher risk of someinfections. ??? Cancer risk.??Alcohol raises your risk of some types of cancer. They include cancer of the: o Mouth o Esophagus o Pharynx o Larynx o Liver o Breast ? Sexual function.??Alcohol abuse can also lead to sexual problems. There is no safe level of alcohol use for people who are or thinking of getting . Alcohol use in may cause lifelong harm to the baby. So alcohol should be avoided. It can also cause a group of defects called alcohol spectrum disorder. These defects can include physical problems. And also behavior and learning problems. ?? Home care for alcohol intoxication Follow these tips to care for yourself at home: ??? Don't drink any more alcohol. ??? Don't drive??until all effects of the alcohol have worn off. ??? Don't use machinery that can cause injuries. ??? Get lots of rest over the next few days. ??? Drink plenty of water and other drinks that don't have alcohol. ??? Try to eat regular meals. If you have been drinking a lot every day, you may have alcohol withdrawal. Symptoms often last 3 to 4 days. They may include: ??? Nervousness ??? Shakiness ??? Nausea ??? Sweating ??? Sleeplessness They may also include severe, life-threatening symptoms. These are known as delirium tremens (DTs).DTs typically begin between 48 and 96 hours after the last drink and last 1 to 5 days. They include: ??? Seizures ??? Confusion ??? Seeing or hearing things that are not there (hallucinations) Alcohol withdrawal can cause . Call your healthcare provider before you stop drinking. This isespecially important if you've had DTs during past alcohol withdrawals. They may be able to help youwith medicine. They can also refer you to an inpatient detox program. Or stay with family or friendswho know when to call for medical help and can support you. If you have severe symptoms, call your provider or call 911 for help (see below). ?? Follow-up care These groups can help you and your loved one: ??? Alcoholics Anonymous (A.A.). Gives support through a self-help fellowship. ?? Find A.A. meetings near you at www.aa.org. ??? Al-An[facility]. ?? Gives support to families at www.al-anon.org . Or call 839-435-0361. ??? SMART Recovery ( Self- Management and Recovery Training). A nationwide abstinence-oriented support group for people with addictive issues. This free program is focused on motivation to change, urge control, and living a balanced life. For more information and meetings near you, go to www.[employer].org/ ??? Substance Abuse and Mental Health Services Administration (SAMHSA) Treatment Tube Building Machine Operator. Free information on treatment resources in your area at https://findtreatment.gov/. Or call 792-781-9723. Call 911 Call 911 if any of these occur: ??? Trouble breathing or slow irregular breathing ??? Chest pain ??? Sudden weakness on 1 side of your body or sudden trouble speaking ??? Heavy bleeding or vomiting blood ??? Very sleepy or having trouble waking up ??? Fainting ??? Fast heart rate ??? Seizure ?? When to get medical advice Call your healthcare provider right away if any of these occur: ??? Severe shakiness? Fever of100.4??F (38??C) or higher, or as advised by your provider ??? Confusion or hallucinations ??? Pain in your upper belly that gets worse ??? Repeated vomiting ?? Last Reviewed Date: 2021 ?? 4918-3603 The [employer]. All rights reserved. This information is not intended as a substitute for professional medical care. Always follow your healthcare professional's instructions. ??[facility] , CIS S: TRANSCNatanael Kwon MD: VERIFY Event Display: Result: Authored Date: [id number] Chest 2 Views Frontal and Lat Hx of Present Illness: Pt presents after an unwitnessed fall outside of bar. +ETOH smell on breath. Multiple abrasions to face. C collar in place.; Reason: Other:; Traumatic Chest Pain; Clinical Question(s): Other:; Pneumothorax, Fracture COMPARISON: 12/28/2006. FINDINGS: LINES AND TUBES: None. LUNGS AND PLEURA: No focal consolidation or overt pulmonary edema. No pleural effusion. No pneumothorax. HEART, MEDIASTINUM AND CRISTHIAN: Heart is normal in size. Normal mediastinal and hilar contour. BONES AND SOFT TISSUES: No acute abnormality. Degenerative changes in the spine. IMPRESSION: No acute abnormality. WSN: [id number] Ordering Physician: Srikanth Emery Dictated By: Natanael Dinh MD Dictated Date/Time: 07/21/22 8:42 am Reviewed By: Natanael Dinh MD Signed By: Natanael Dinh MD Signed Date/Time: 07/21/22 8:42 am Transcribed By: PAPITO Transcribed Date/Time: 07/21/22 8:[address] Cervical spine WO contrast [facility] , CIS S: TRANSCRIBE Hannah Agosto DO: SIGN Nataliia BLUNT, Franky A: VERIFY Event Display: Result: Authored Date: CT Head/Brain W/O Contrast, CT Cervical Spine W/O Contrast Hx of Present Illness: Pt presents after an unwitnessed fall outside of bar. Multiple abrasions to face. Reason: Trauma. Clinical Question(s): Intracranial hemorrhage. TECHNIQUE: Incremental CT without contrast through the head was formatted in axial and coronal planes. Spiral CT without contrast through the cervical spine was formatted in 3 planes. Weight-based protocol using automatic tube modulation was used to optimize exposure parameters. CTDIvol Body: 11.10 mGy, DLP Body: 267 mGy*cm. CTDIvol Head: 41.50 mGy, DLP Head: 839 mGy*cm. COMPARISON: CT head from 12/28/2006 FINDINGS: BRAIN and EXTRA-AXIAL SPACES: No parenchymal hemorrhage, midline shift or mass effect. Carlin-white matter differentiation is well preserved. No acute infarct. Negative insular ribbon sign. Atherosclerotic vascular calcification of the carotid arteries but negative hyperdense vessel sign. Ventricles, sulci and basilar cisterns are normal. Mild low-density white matter changes. No subarachnoid hemorrhage, subdural or epidural collections. CALVARIUM, SKULL BASE AND SOFT TISSUES: No fractures or suspicious bony lesions. Age indeterminate, minimally displaced fracture left nasal bone with some overlying soft tissue swelling, possibly acute. Retention cyst in right maxillary sinus, minimal mucosal thickening of the ethmoid air cells. Paranasal sinuses otherwise clear. Mastoid air cells are clear. Visualized orbits and globes are intact. The extracranial soft tissues are unremarkable. CERVICAL SPINE: No fracture. No acute osseous abnormalities. Normal variant incompletely fusion of the posterior C1 arch. Normal alignment. No locked or perched facet. Moderate to marked multilevel degenerative changes. Diffuse, bulky calcification of the anterior longitudinal ligament with large bridging anterior endplate osteophytes from C2 to C7 compatible with DISH. Chronic appearing lucency through the C3-C4 anterior osteophyte (3-5:38). OTHER BONES: No acute abnormality. CERVICAL SOFT TISSUES AND LUNG APICES: Mild paraseptal emphysema of the bilateral lung apices. Normal thyroid gland. IMPRESSION: No acute intracranial or cervical spine abnormality. Cervical spine degenerative changes with bulky bridging anterior endplate osteophytes compatible with DISH. Age indeterminate, minimally displaced fracture left nasal bone with some overlying soft tissue swelling, possibly acute. Please correlate with physical exam and point tenderness. I have personally reviewed the images and I agree with this report. WSN: [id number] Ordering Physician: Nathalia Siegel Dictated By: Hannah Agosto DO Dictated Date/Time: 07/21/22 7:12 am Reviewed By: Franky William MD Signed By: Franky William MD Signed Date/Time: 07/21/22 7:17 am Transcribed By: PAPITO Transcribed Date/Time: 07/21/22 5:[address] Head WO contrast [facility] , CIS S: TRANSCRIBE Hannah Agosto DO: SIGN Franky William MD: VERIFY Event Display: Result: Authored Date: CT Head/Brain W/O Contrast, CT Cervical Spine W/O Contrast Hx of Present Illness: Pt presents after an unwitnessed fall outside of bar. Multiple abrasions to face. Reason: Trauma. Clinical Question(s): Intracranial hemorrhage. TECHNIQUE: Incremental CT without contrast through the head was formatted in axial and coronal planes. Spiral CT without contrast through the cervical spine was formatted in 3 planes. Weight-based protocol using automatic tube modulation was used to optimize exposure parameters. CTDIvol Body: 11.10 mGy, DLP Body: 267 mGy*cm. CTDIvol Head: 41.50 mGy, DLP Head: 839 mGy*cm. COMPARISON: CT head from 12/28/2006 FINDINGS: BRAIN and EXTRA-AXIAL SPACES: No parenchymal hemorrhage, midline shift or mass effect. Carlin-white matter differentiation is well preserved. No acute infarct. Negative insular ribbon sign. Atherosclerotic vascular calcification of the carotid arteries but negative hyperdense vessel sign. Ventricles, sulci and basilar cisterns are normal. Mild low-density white matter changes. No subarachnoid hemorrhage, subdural or epidural collections. CALVARIUM, SKULL BASE AND SOFT TISSUES: No fractures or suspicious bony lesions. Age indeterminate, minimally displaced fracture left nasal bone with some overlying soft tissue swelling, possibly acute. Retention cyst in right maxillary sinus, minimal mucosal thickening of the ethmoid air cells. Paranasal sinuses otherwise clear. Mastoid air cells are clear. Visualized orbits and globes are intact. The extracranial soft tissues are unremarkable. CERVICAL SPINE: No fracture. No acute osseous abnormalities. Normal variant incompletely fusion of the posterior C1 arch. Normal alignment. No locked or perched facet. Moderate to marked multilevel degenerative changes. Diffuse, bulky calcification of the anterior longitudinal ligament with large bridging anterior endplate osteophytes from C2 to C7 compatible with DISH. Chronic appearing lucency through the C3-C4 anterior osteophyte (3-5:38). OTHER BONES: No acute abnormality. CERVICAL SOFT TISSUES AND LUNG APICES: Mild paraseptal emphysema of the bilateral lung apices. Normal thyroid gland. IMPRESSION: No acute intracranial or cervical spine abnormality. Cervical spine degenerative changes with bulky bridging anterior endplate osteophytes compatible with DISH. Age indeterminate, minimally displaced fracture left nasal bone with some overlying soft tissue swelling, possibly acute. Please correlate with physical exam and point tenderness. I have personally reviewed the images and I agree with this report. WSN: [id number] Ordering Physician: Nathalia Siegel Dictated By: Hannah Agosto DO Dictated Date/Time: 07/21/22 7:12 am Reviewed By: Franky William MD Signed By: Franky William MD Signed Date/Time: 07/21/22 7:17 am Transcribed By: PAPITO Transcribed Date/Time: 07/21/22 5:52 am Patient Care team information Care Team PersonnelName: Not on Staff, PCP Position: [facility] Physician (General Medicine) Member Role: PCP Name: Ej MORALES, Nick Position: [facility] Resident Member Role: ED Resident Address: Address: [address] [place] [address] Name: Natanael Bains Position: [facility] ED TA [facility] Name: Agustina Norman MD Position: [facility] ED Medicine MD Member Role: Admitting Physician Address: Address: [address] [place] [address] Name: Samanta ALMONTE, Sumaya Kent Position: [facility] ED RN W/OE and Tasks Member Role: Patient Care Provider Care Team Related PersonsName: MERON SHANKAR Address: [place] [address]
--- NOTE | 2022-08-03 08:31 | ED.GENADULT ---
HPI - General Adult General Chief complaint: General Medical Stated complaint: flu like syptoms Time Seen by Provider: 08/03/22 08:21 Source: patient Mode of arrival: ambulatory Limitations: no limitations History of Present Illness HPI narrative: Patient is a 56 year old assigned male at with a history of asthma presenting to the emergency department today with a cough and feeling generally unwell. Patient states that starting yesterday he began to have a fever and a cough. Patient denies any dizziness, lightheadedness, abdominal pain, nausea, vomiting, chills, blurry vision, double vision, loss of vision, chest pain, difficulty breathing, shortness of breath, back pain, night sweats, pain with urination, increased urinary frequency, increased urinary urgency, blood in his urine or stool, syncope or a near syncopal episode, recent trauma or falls, bowel incontinence, bladder incontinence, bowel retention, bladder retention, or any other complaints at this time. Onset (ago): day(s) (1) Severity: mild Severity scale (1-10): 2 Relieving factors: none Exacerbating factors: none Associated symptoms: cough and fever/chills Treatments prior to arrival: none Related Data Home Medications Medication Instructions Recorded Confirmed albuterol sulfate 90 mcg/actuation 2 puff inhalation Q4-6H PRN 08/04/20 06/16/22 aerosol inhaler (ProAir HFA) Wheezing aspirin 81 mg tablet,delayed 81 mg PO DAILY 08/04/20 06/16/22 release fluticasone propionate 50 2 spray intranasal DAILY 12/24/20 06/16/22 mcg/actuation nasal spray,suspension amlodipine 10 mg tablet 10 mg PO DAILY 06/22/21 06/16/22 atorvastatin 80 mg tablet 80 mg PO BEDTIME 06/22/21 06/16/22 blood sugar diagnostic (FreeStyle #10 ea 06/22/21 Lite Strips) lancets 33 gauge (TRUEplus Lancets) #100 ea 06/22/21 lisinopril 40 mg tablet 40 mg PO DAILY 06/22/21 06/16/22 cetirizine 10 mg tablet 10 mg PO QAM 09/22/21 06/16/22 meclizine 25 mg tablet 25 mg PO DAILY PRN Vertigo 02/17/22 06/16/22 triamcinolone acetonide 0.1 % topical 02/17/22 topical ointment Previous Rx's Medication Instructions Recorded montelukast 10 mg tablet 10 mg PO DAILY 30 days #30 tabs 02/22/21 tadalafil 5 mg tablet 5 mg PO DAILY PRN sexual activity 06/22/21 90 days #90 tabs azelastine 137 mcg (0.1 %) nasal 2 spray intranasal BID #30 mL 09/30/21 spray aerosol indomethacin 50 mg capsule 50 mg PO TID 5 days #15 caps 10/11/21 famotidine 40 mg tablet (Pepcid) 40 mg PO DAILY PRN heartburn #60 02/17/22 tabs peg 3350-electrolytes 236 240 ml PO Q10M 1 day #4,000 mL 02/17/22 gram-22.74 gram-6.74 gram-5.86 gram solution (Golytely) Allergies Allergy/AdvReac Type Severity Reaction Status Date / Time amoxicillin [AMOXICILLIN] Allergy Severe ANAPHYLAXIS Verified 08/03/22 04:50 Penicillins Allergy Severe UNKNOWN Verified 08/03/22 04:50 REACTION-CHILDHOOD doxycycline [From VIBRAMYCIN] AdvReac Mild DIARRHEA Verified 08/03/22 04:50 Clindamycin HCl Allergy Severe Anaphylaxis Uncoded 02/17/22 13:24 Review of Systems Constitutional: Constitutional: Reports no additional constitutional complaints, Denies chills, Reports fever(s) and Denies night sweats Eyes: Eyes: Reports no additional eye complaints, Denies blurry vision, Denies change in vision, Denies diplopia, Denies eye discharge, Denies loss of vision and Denies eye pain ENT: Denies dizziness Cardiovascular: Cardiovascular: Reports no additional cardiovascular complaints, Denies chest pain, Denies lightheadedness, Denies Loss of Consciousness and Denies dyspnea Respiratory: Respiratory: Reports no additional respiratory complaints, Reports cough and Denies dyspnea Gastrointestinal: Gastrointestinal: Reports no additional gastrointestinal complaints, Denies abdominal pain, Denies melena, Denies hematochezia, Denies change in bowel habits and Denies change in stool character Genitourinary: Genitourinary: Reports no additional male genitourinary complaints, Denies hematuria, Denies oliguria, Denies difficulty urinating, Denies dysuria, Denies urinary frequency, Denies urinary hesitancy, Denies urinary incontinence and Denies urinary urgency Musculoskeletal: Musculoskeletal: Reports no additional musculoskeletal complaints, Denies numbness and Denies tingling Neurologic: Denies dizziness, Denies loss of vision, Denies numbness and Denies tingling Psychiatric: Psychiatric: Reports no additional psychiatric complaints Endocrine: Endocrine: Reports no additional endocrine complaints Hematologic/Lymphatic: Hematologic/Lymphatic: Reports no additional hematologic/lymphatic complaints Allergic/Immunologic: Allergic/Immunologic: Reports no additional allergic/immunologic complaints PMFSH Past Medical History Attestation statement: The following information was validated with the patient. Source: old records reviewed Medical History Asthma Diabetes HTN (hypertension) Nasal polyps Orchialgia Pulmonary nodules Weak urinary stream Surgical History H/O wrist surgery History of esophagogastroduodenoscopy (EGD) Hx of colonoscopy Family History Family History Father Diabetes Hypertension Mother Hypertension Hyperlipidemia Brother Hypertension Family/Other Kidney stones Prostate cancer Bladder cancer Renal cancer Social History Social History Alcohol intake: never Patient Tobacco Use Status: Former Tobacco user Quit Date: 1991 Tobacco use type: Cigarette Years Smoked: 30 years Advance Directives: No Advance Directives Information Provided: No Physical Exam ED Vital Signs: Vital Signs - 24 hr 08/03/22 04:44 08/03/22 08:03 Temperature 99.2 F 98.6 F Pulse Rate 111 H 82 Respiratory Rate 18 16 Blood Pressure 157/101 H 130/80 Pulse Oximetry 96 96 Oxygen Delivery Method Room Air Room Air BMI result Body Mass Index 30.4 Const General: cooperative, no acute distress, alert and awake Nutritional Appearance: well nourished Orientation/consciousness: patient oriented x3 Limitations: no limitations HENMT Head: Yes normal to inspection and Yes atraumatic Ears: hearing grossly normal bilaterally and external ears normal General nose exam: Normal external nose present, no nasal discharge noted and no epistaxis Face and sinus: Yes normal facial exam, No abrasion and No laceration Mouth: Normal oral and palatal mucosa present, no drooling and no muffled voice Eyes General: appearance normal, both eyes and all related structures Periorbital: periorbital findings normal Eyelids: Yes eyelids normal Conjunctivae: conjunctivae normal Pupils: Equal, round and reactive pupils present EOM: EOMs intact bilaterally Neck Neck: Yes normal visual inspection, Yes full ROM and Yes no lymphadenopathy Chest Chest palpation & inspection: normal inspection of the chest Resp Effort & Inspection: normal respiratory effort and able to speak in complete sentences Auscultation: clear to auscultation bilaterally Cardio Rate: regular rate Rhythm: regular rhythm GI Inspection: Yes normal to inspection Palpation (GI): Soft to palpation, not firm, nontender, no guarding and not rigid Neuro General: patient oriented x3 and moves all extremities Cranial nerves: Yes Equal, round and reactive pupils present Cognition (Neuro): normal cognition Motor exam (neuro): 5/5 motor strength present throughout Sensory Exam: Normal double simultaneous stimulation for sensation Coordination: [id number] test normal Extrem General: Yes normal to inspection, Yes full ROM and Yes capillary refill normal Psych Appearance: grossly normal Mental Status: mental status grossly normal Affect: normal affect Attitude: cooperative Thought process: Normal thought process present Thought content: Normal thought content present Insight: Good insight present (Psych) Medical Decision Making Medical Decision Making MDM Narrative: Patient is a 56 year old assigned male at with a history of asthma presenting to the emergency department today with a fever and a cough. Patient's physical exam was unremarkable. Patient's RSV swab was positive. I explained my physical exam findings as well as all test results to the patient. I answered all questions asked by the patient. I stressed the importance of the patient taking his medication as prescribed. I stressed the importance of the patient following up with his primary care provider. I stressed the importance of the patient returning to the emergency department immediately if his symptoms were to worsen or if he were to develop any dizziness, shortness of breath, difficulty breathing, chest pain, blurry vision, loss of vision, nausea, vomiting, abdominal pain, fever, chills, back pain, or any other complaints. Patient verbalized agreement and understanding with this treatment plan and discharge. Differential Diagnoses: Differential diagnosis Differential Diagnosis: The differential diagnosis associated with the patient?s presentation includes: RSV, influenza, COVID-19 Lab Attestation: I reviewed the patient's lab results. Discharge Plan Discharge Clinical Impression: Respiratory syncytial virus (RSV) Patient Disposition: Home, Self-Care Instructions: Respiratory Syncytial Virus (ED) Additional Instructions: Follow up with your primary care provider. Return to the emergency department immediately if your symptoms worsen or if you develop any dizziness, shortness of breath, difficulty breathing, chest pain, blurry vision, loss of vision, nausea, vomiting, abdominal pain, fever, chills, back pain, or any other complaints. Prescriptions: No Action montelukast 10 mg tablet 10 mg PO DAILY 30 Days Qty: 30 11RF azelastine 137 mcg (0.1 %) aerosol,spray 2 spray intranasal BID Qty: 30 6RF indomethacin 50 mg capsule 50 mg PO TID 5 Days Qty: 15 0RF Rx Instructions: administer with food or milk albuterol sulfate [ProAir HFA] 90 mcg/actuation HFA aerosol inhaler 2 puff inhalation Q4-6H PRN (Reason: Wheezing) aspirin 81 mg tablet,delayed release (DR/EC) 81 mg PO DAILY fluticasone propionate 50 mcg/actuation spray,suspension 2 spray intranasal DAILY Rx Instructions: administer into each nostril lisinopril 40 mg tablet 40 mg PO DAILY amlodipine 10 mg tablet 10 mg PO DAILY (DME) lancets [TRUEplus Lancets] 33 gauge misc See Rx Instructions Not Applicable TID Qty: 100 Rx Instructions: As directed (DME) FreeStyle Lite Strips Strip See Rx Instructions Not Applicable TID Qty: 10 Rx Instructions: As directed atorvastatin 80 mg tablet 80 mg PO BEDTIME tadalafil 5 mg tablet 5 mg PO DAILY PRN (Reason: sexual activity) 90 Days Qty: 90 0RF meclizine 25 mg tablet 25 mg PO DAILY PRN (Reason: Vertigo) triamcinolone acetonide 0.1 % ointment topical famotidine [Pepcid] 40 mg tablet 40 mg PO DAILY PRN (Reason: heartburn) Qty: 60 6RF peg 3350-electrolytes [Golytely] 236-22.74-6.74 -5.86 gram recon soln 240 ml PO Q10M 1 Days Qty: 4000 0RF Rx Instructions: until fecal effluent is clear; do not exceed a total volume of 2,000 mL cetirizine 10 mg tablet 10 mg PO QAM Referrals: Ashley Frankel MD [Primary Care Provider] - Stand Alone Forms: Work/School Release Interventions: ED Discharge Assessment Last Done: 08/03/22 09:03 Discharge Date/Time: 08/03/22 09:04 Print Language: Swedish
== END 2022-08-03 09:04 | disposition home or self-care (01) ==
PROVIDERS: Emergency Provider Emergency Medicine Emergency Medical Services; PCP Family Medicine
DX: J06.9 Acute upper respiratory infection, unspecified (principal); B97.4 Respiratory syncytial virus as the cause of diseases classified elsewhere; R05.9 Cough, unspecified; R50.9 Fever, unspecified; Z20.822 Contact with and (suspected) exposure to COVID-19; Z79.899 Other long term (current) drug therapy
CPT/HCPCS: 0241U; 99283

== ENCOUNTER 2022-08-09 09:09 | Outpatient (REF) | payer MEDICARE, MEDICAID, SELFPAY ==
--- NOTE | ~2022-08-09 | CT_ITS ---
EXAMINATION: CT CHEST WITHOUT CONTRAST CLINICAL INFORMATION: Pulmonary nodule follow-up. COMPARISON: Previous chest CT, most recent July 2021 and chest x-ray January 2022. TECHNIQUE: Multidetector volumetric CT imaging of the chest was done. Axial MIP volume rendering provided. Sagittal and coronal reformatted images were obtained. This CT examination was performed using dose optimization techniques as appropriate, variously including the following: *Automated exposure control *Adjustment of mA and/or kV according to patient size (this includes techniques or standardized protocols for targeted exams where dose is matched to indication/reason for exam; i.e. extremities or head) *Use of iterative reconstruction technique DLP: 244 mGy-cm. FINDINGS: LUNGS: The pulmonary nodules are stable. Largest pulmonary nodule is an 8 mm noncalcified left lower lobe nodule axial image 352 series 5. There are multiple smaller calcified nodules, largest measuring 4 mm in the right lower lobe axial image 345 and right middle lobe axial image 331 series 5. No new pulmonary nodule. MEDIASTINUM: The mediastinum is normal. CORONARY ARTERY CALCIFICATION: Mild. PLEURA: There is no pleural effusion. No pleural mass or thickening. AXILLA: Small bilateral axillary lymph nodes. Bilateral gynecomastia. UPPER ABDOMEN: Unremarkable. OSSEOUS STRUCTURES: Degenerative changes of the spine. CT/CT chest wo IV con IMPRESSION: Stable pulmonary nodules. Mild coronary artery calcification. Fleischner guidelines were followed.
== END 2022-08-09 09:10 | disposition home or self-care (01) ==
LOC: HO.CT 09:09
PROVIDERS: PCP Family Medicine; Visit Provider Hospitalist
DX: R91.8 Other nonspecific abnormal finding of lung field (principal)
CPT/HCPCS: 71250

== ENCOUNTER 2022-08-10 00:10 | Emergency (ER) | payer MEDICARE, MEDICAID, SELFPAY ==
--- NOTE | ~2022-08-10 | XR_ITS ---
EXAMINATION: XR SHOULDER, LEFT CLINICAL INFORMATION: Pain. COMPARISON: CT chest 08/10/2022. TECHNIQUE: Four views of the left shoulder. FINDINGS: No acute fractures or malalignment. Mild to moderate degenerative osteophyte arthritis of the acromioclavicular and glenohumeral joints with bony productive changes no abnormal soft tissue calcifications. The visualized portions of the left lung are clear. XR/XR shoulder LT min 2V IMPRESSION: 1. No acute fractures or malalignment. 2. 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
[2022-08-10 00:17] VITALS: BP 165/84; PULSE 76; RESP 18; TEMP 36.4; O2SAT 97; BMI 31.1
--- NOTE | 2022-08-10 05:36 | PC.NURSE ---
Pt left before seeing provider, this RN exlpained risks of leaving before seeing MD. Pt still wanted to leave.
== END 2022-08-10 05:41 | disposition left against medical advice (07) ==
PROVIDERS: Emergency Provider Emergency Medicine; PCP Family Medicine
DX: M25.512 Pain in left shoulder (principal); M19.012 Primary osteoarthritis, left shoulder
CPT/HCPCS: 73030; 99281; 99283

== ENCOUNTER → 2022-08-15 09:27 | Outpatient (BNVA) | payer MEDICARE, MEDICAID, SELFPAY | PROVIDERS: PCP Family Medicine; Visit Provider Hospitalist | DX: J45.40 Moderate persistent asthma, uncomplicated (principal); R91.8 Other nonspecific abnormal finding of lung field; J33.9 Nasal polyp, unspecified; J31.0 Chronic rhinitis | CPT/HCPCS: 99212 ==

== ENCOUNTER 2022-10-08 05:09 | Emergency (ER) | payer MEDICARE, MEDICAID, SELFPAY ==
[2022-10-08 05:26] VITALS: BP 157/77; PULSE 60; RESP 16; TEMP 36.6; O2SAT 98; BMI 30.4
--- NOTE | 2022-10-08 05:30 | ECG_ITS ---
Test Reason : CHEST PAIN Blood Pressure : / mmHG Vent. Rate : 058 BPM Atrial Rate : 058 BPM P-R Int : 150 ms QRS Dur : 090 ms QT Int : 408 ms P-R-T Axes : 035 039 032 degrees QTc Int : 400 ms Sinus bradycardia Otherwise normal ECG When compared with ECG of 14-MAY-2022 15:45, No significant change was found Referred By: Generic ED Physician Electronically Signed By:LAITH LIZAMA MD
[2022-10-08 05:43] LABS: MANUAL DIFF FLAG NO
[2022-10-08 05:44] LABS: Basophils Percent Auto 0.5 % (0-2); Eosinophils Absolute Auto 0.1 X10*3/uL (0.0-0.4); Hematocrit 40.3 % (42.0-52.0); Hemoglobin 13.5 g/dl (14.0-18.0); Imm Gran Abs Auto 0.01 X10*3/uL (0.00-0.03); Imm Gran Pct Auto 0.2 % (0.0-0.4); Lymphocytes Percent Auto 34.6 % (20-40); Mean Corpuscular HGB Conc 33.5 g/dl (31.0-36.0); Mean Corpuscular Hemoglobin 29.5 pg (27.0-33.0); Mean Corpuscular Volume 88.2 fL (80.0-98.0); Mean Platelet Volume 10.3 fL (9.4-12.4); Monocytes Absolute Auto 0.7 X10*3/uL (0.1-1.2); Monocytes Percent Auto 11.9 % (2-11); Neutrophils Percent Auto 50.8 % (45-73); Platelet Count 266 X10*3/uL (160-400); Red Blood Count 4.57 X10*6/uL (4.60-5.80); Red Cell Distribution Width 12.6 % (11.0-16.0); White Blood Count 5.9 X10*3/uL (4.8-10.8)
[2022-10-08 06:09] LABS: Anion Gap 11 (12-20); Blood Urea Nitrogen 17 mg/dL (9-16); Calcium 9.2 mg/dL (8.4-10.2); Carbon Dioxide 26 mmol/L (22-29); Chloride 108 mmol/L (96-108); Estimated Glomerular Filt Rate > 60; Glucose Random 132 mg/dL (60-115); Potassium 3.8 mmol/L (3.3-5.1); Sodium 141 mmol/L (135-145)
[2022-10-08 06:11] LABS: Troponin-I High Sensitivity 6.2 ng/L (<3.5-35.0)
[2022-10-08 07:43] VITALS: BP 145/91; PULSE 74; RESP 18; TEMP 36.7; O2SAT 98
--- NOTE | 2022-10-08 08:39 | ED.CHESTPAIN ---
HPI - Chest Pain General Chief Complaint: Chest Pain Stated Complaint: lower back pain, chest pain, difficulty breathing Time Seen by Provider: 10/08/22 08:27 Source: patient Mode of arrival: ambulatory Limitations: no limitations History of Present Illness HPI narrative: 57 yo male with history of HTN, GERD, HLD, asthma here with complaints of lower back pain which began last evening While at rest. Pain radiated around to the abdomen. Patient denies any associated urinary symptoms, nausea, vomiting, diarrhea, fevers, chills. No chest pain, shortness of breath, palpitations. Patient denies any injury or trauma to his lower back. He does have history of chronic back pain. No new injury Related Data Home Medications Medication Instructions Recorded Confirmed aspirin 81 mg tablet,delayed 81 mg PO DAILY 08/04/20 08/18/22 release amlodipine 10 mg tablet 10 mg PO DAILY 06/22/21 08/18/22 blood sugar diagnostic (FreeStyle #10 ea 06/22/21 Lite Strips) lancets 33 gauge (TRUEplus Lancets) #100 ea 06/22/21 lisinopril 40 mg tablet 40 mg PO DAILY 06/22/21 08/18/22 meclizine 25 mg tablet 25 mg PO DAILY PRN Vertigo 02/17/22 08/18/22 triamcinolone acetonide 0.1 % topical 02/17/22 topical ointment omeprazole 20 mg capsule,delayed 20 mg PO DAILY 08/15/22 release Previous Rx's Medication Instructions Recorded tadalafil 5 mg tablet 5 mg PO DAILY PRN sexual activity 06/22/21 90 days #90 tabs indomethacin 50 mg capsule 50 mg PO TID 5 days #15 caps 10/11/21 albuterol sulfate 90 mcg/actuation 2 puff inhalation Q6H PRN Wheezing 08/15/22 aerosol inhaler (ProAir HFA) 30 days #8.5 grams cetirizine 10 mg tablet 10 mg PO QAM 30 days #30 tabs 08/15/22 fluticasone propionate 50 2 spray intranasal DAILY 30 days 08/15/22 mcg/actuation nasal #15.8 mL spray,suspension sodium chloride 0.65 % nasal spray 2 spray intranasal Q4H PRN dry 08/15/22 aerosol (Hope Saline) nasal passages 30 days #50 mL Allergies Allergy/AdvReac Type Severity Reaction Status Date / Time amoxicillin [AMOXICILLIN] Allergy Severe ANAPHYLAXIS Verified 08/15/22 09:31 Penicillins Allergy Severe UNKNOWN Verified 08/15/22 09:31 REACTION-CHILDHOOD doxycycline [From VIBRAMYCIN] AdvReac Mild DIARRHEA Verified 08/15/22 09:31 Clindamycin HCl Allergy Severe Anaphylaxis Uncoded 08/15/22 09:31 Review of Systems Review of Systems: Yes all other systems are reviewed and are negative Constitutional: Constitutional: Reports no additional constitutional complaints, Denies body ache(s), Denies chills, Denies fever(s), Denies headache(s) and Denies weakness Eyes: Eyes: Reports no additional eye complaints and Denies change in vision ENT: Reports system reviewed and no additional complaints, except as documented, Denies dizziness, Denies headache(s), Denies nasal congestion, Denies nasal discharge and Denies neck pain Cardiovascular: Cardiovascular: Reports no additional cardiovascular complaints, Denies chest pain, Denies leg edema and Denies dyspnea Respiratory: Respiratory: Reports no additional respiratory complaints, Denies cough and Denies dyspnea Gastrointestinal: Gastrointestinal: Reports no additional gastrointestinal complaints, Denies abdominal pain, Denies diarrhea, Denies nausea and Denies vomiting Genitourinary: Genitourinary: Denies urinary incontinence Musculoskeletal: Musculoskeletal: Reports no additional musculoskeletal complaints, Reports back pain, Denies arthralgias, Denies joint swelling, Denies neck pain, Denies numbness and Denies tingling Integumentary/Breasts: Skin/Breast: Reports system reviewed and no additional complaints, except as docu and Denies rash Neurologic: Reports system reviewed and no additional complaints, except as documented, Denies Abnormal speech present, Denies dizziness, Denies headache(s), Denies numbness, Denies tingling and Denies weakness [facility] Past Medical History Attestation statement: The following information was validated with the patient. Source: old records reviewed and nursing notes reviewed Medical History Asthma Diabetes HTN (hypertension) Nasal polyps Orchialgia Pulmonary nodules Weak urinary stream Surgical History H/O wrist surgery History of esophagogastroduodenoscopy (EGD) Hx of colonoscopy Family History Family History Father Diabetes Hypertension Mother Hypertension Hyperlipidemia Brother Hypertension Family/Other Kidney stones Prostate cancer Bladder cancer Renal cancer Social History Social History Alcohol intake: never Patient Tobacco Use Status: Former Tobacco user Quit Date: 1991 Tobacco use type: Cigarette Years Smoked: 30 years Advance Directives: No Advance Directives Information Provided: No Physical Exam Vital Signs: Vital Signs: Last Vital Signs Temp 98.1 F 10/08/22 07:43 Pulse 74 10/08/22 07:43 Resp 18 10/08/22 07:43 BP 145/91 H 10/08/22 07:43 Pulse Ox 98 10/08/22 07:43 O2 Del Method 10/08/22 07:43 BMI result Body Mass Index 30.4 Const: General: cooperative, healthy appearing, comfortable and no acute distress Orientation/consciousness: patient oriented x3 Limitations: no limitations HEENT: Head: Yes normal to inspection Ears: hearing grossly normal bilaterally General nose exam: Normal external nose present Face and sinus: Yes normal facial exam Mouth: Normal oral and palatal mucosa present Throat: Yes posterior oropharynx normal Eyes: General: appearance normal, both eyes and all related structures Pupils: Equal, round and reactive pupils present Neck: Neck: Yes normal visual inspection Chest: Chest palpation & inspection: normal inspection of the chest Resp: Effort & Inspection: normal respiratory effort Auscultation: clear to auscultation bilaterally Cardio: Rate: regular rate Rhythm: regular rhythm Peripheral pulses: Peripheral pulses 2+ throughout GI: Inspection: Yes normal to inspection Palpation (GI): Soft to palpation and nontender Auscultation: normal bowel sounds : General: Yes no CVA tenderness Back/Spine/Pelvis: Other: no midline tenderness of the lumbar spine. There is tenderness to the bilateral soft tissue area the lumbar spine. This is worsened with flexion/extension of the spine. Back: no CVA tenderness Thoracic/Lumbar Spine: thoracic and lumbar spine normal to inspection Skin: General skin exam: no rashes or lesions noted Neuro: General: patient oriented x3, no focal motor deficits and normal sensation to monofilament Cranial nerves: Yes CN's II-XII intact bilaterally, Yes Equal, round and reactive pupils present, Yes Bilaterally intact EOM present, Yes Nystagmus not present, Yes Normal facial strength present and Yes Midline tongue present Cognition (Neuro): normal cognition Speech: No Abnormal speech present Gait exam (Neuro): Normal gait present Motor exam (neuro): 5/5 motor strength present throughout Sensory Exam: Normal double simultaneous stimulation for sensation Deep tendon reflexes (DTR's): Right patellar reflex intensity grade: 2+ and Left patellar reflex intensity grade: 2+ Extrem: General: Yes normal to inspection Course Course Course Narrative: Labs including troponin x2 are negative, EKG shows no ischemic changes. Urine is negative. Patient reports overall feeling much better than when his pain 1st began. He appears comfortable. Likely lumbar strain. Recommend supportive care at home. Reviewed worrisome signs and symptoms of when to return to the emergency room. Comfortable plan for discharge home. Medical Decision Making Medical Decision Making [facility] Narrative: 57-year-old male here with atraumatic lower back pain since yesterday which radiated to the abdomen with no known injury or trauma. No associated urinary symptoms, fevers, vomiting, diarrhea, chest pain, shortness of breath. On arrival patient with no midline tenderness, step-offs deformities. Patient went tenderness over the soft tissue area of the lumbar spine. Normal neurological exam. Abdomen soft nontender. Patient had labs, UA and EKG ordered from triage. Initially he was complaining that the pain was radiating to his chest. When I asked him to explain this further he points to his upper abdomen. He tells me all in all he is feeling better than when his pain 1st began last night. Appears quite comfortable on exam. Differential Diagnosis Differential Diagnoses: The differential diagnosis associated with the presentation includes Less likely ACS, consider pancreatitis, cholecystitis, lumbar strain, Pyelo, renal colic Lab Data [facility] Lab Attestation statement: I reviewed the patient's lab results. 10/08/22 05:38 10/08/22 05:38 Labs: Lab Results 10/08/22 10/08/22 10/08/22 Range/Units 05:38 05:38 05:38 WBC 5.9 (4.8-10.8) X10*3/uL RBC 4.57 L (4.60-5.80) X10*6/uL Hgb 13.5 L (14.0-18.0) g/dl Hct 40.3 L (42.0-52.0) % MCV 88.2 (80.0-98.0) fL MCH 29.5 (27.0-33.0) pg MCHC 33.5 (31.0-36.0) g/dl RDW 12.6 (11.0-16.0) % Plt Count 266 (160-400) X10*3/uL MPV 10.3 (9.4-12.4) fL Immature Gran % (Auto) 0.2 (0.0-0.4) % Neut % (Auto) 50.8 (45-73) % Lymph % (Auto) 34.6 (20-40) % [place] % (Auto) 11.9 H (2-11) % Eos % (Auto) 2.0 (0-4) % Baso % (Auto) 0.5 (0-2) % Lymph # (Auto) 2.0 (1.2-4.9) X10*3/uL [place] # (Auto) 0.7 (0.1-1.2) X10*3/uL Eos # (Auto) 0.1 (0.0-0.4) X10*3/uL Baso # (Auto) 0.0 (0.0-0.2) X10*3/uL Abs Immat Gran (auto) 0.01 (0.00-0.03) X10*3/uL Absolute Neuts (auto) 3.0 (2.0-8.3) x10*3/uL Absolute Nucleated RBC 0.000 (0.0-0.012) X10*3/uL Nucleated RBC % (auto) 0.0 (0.0-0.2) /100WBC Sodium 141 (135-145) mmol/L Potassium 3.8 (3.3-5.1) mmol/L Chloride 108 (96-108) mmol/L Carbon Dioxide 26 (22-29) mmol/L Anion Gap 11 L (12-20) BUN 17 H (9-16) mg/dL Creatinine 1.00 (0.5-1.4) mg/dL Estim Creat Clear Calc 88.0 Estimated GFR > 60 Random Glucose 132 H (60-115) mg/dL Calcium 9.2 (8.4-10.2) mg/dL Total Bilirubin (0.0-1.0) mg/dL Direct Bilirubin (0.0-0.5) mg/dL AST (5-37) U/L ALT (0-40) U/L Alkaline Phosphatase (39-117) U/L Troponin I High Sens 6.2 (<3.5-35.0) ng/L Total Protein (6.5-8.0) g/dL Albumin (3.5-5.0) g/dL Lipase (8-78) U/L Urine Color Urine Appearance Urine pH (5.0-9.0) Ur Specific [place] (1.005-1.025) Urine Protein (Neg-Trace) mg/dL Urine Glucose (UA) (Negative) mg/dL Urine Ketones (Negative) mg/dL Urine Blood (Negative) Urine Nitrite (Negative) Ur Leukocyte Esterase (Negative) 10/08/22 10/08/22 10/08/22 Range/Units 08:52 08:52 08:52 WBC (4.8-10.8) X10*3/uL RBC (4.60-5.80) X10*6/uL Hgb (14.0-18.0) g/dl Hct (42.0-52.0) % MCV (80.0-98.0) fL MCH (27.0-33.0) pg MCHC (31.0-36.0) g/dl RDW (11.0-16.0) % Plt Count (160-400) X10*3/uL MPV (9.4-12.4) fL Immature Gran % (Auto) (0.0-0.4) % Neut % (Auto) (45-73) % Lymph % (Auto) (20-40) % Knox % (Auto) (2-11) % Eos % (Auto) (0-4) % Baso % (Auto) (0-2) % Lymph # (Auto) (1.2-4.9) X10*3/uL Knox # (Auto) (0.1-1.2) X10*3/uL Eos # (Auto) (0.0-0.4) X10*3/uL Baso # (Auto) (0.0-0.2) X10*3/uL Abs Immat Gran (auto) (0.00-0.03) X10*3/uL Absolute Neuts (auto) (2.0-8.3) x10*3/uL Absolute Nucleated RBC (0.0-0.012) X10*3/uL Nucleated RBC % (auto) (0.0-0.2) /100WBC Sodium (135-145) mmol/L Potassium (3.3-5.1) mmol/L Chloride (96-108) mmol/L Carbon Dioxide (22-29) mmol/L Anion Gap (12-20) BUN (9-16) mg/dL Creatinine (0.5-1.4) mg/dL Estim Creat Clear Calc Estimated GFR Random Glucose (60-115) mg/dL Calcium (8.4-10.2) mg/dL Total Bilirubin 0.9 (0.0-1.0) mg/dL Direct Bilirubin 0.2 (0.0-0.5) mg/dL AST 19 (5-37) U/L ALT 16 (0-40) U/L Alkaline Phosphatase 111 (39-117) U/L Troponin I High Sens 5.1 (<3.5-35.0) ng/L Total Protein 6.7 (6.5-8.0) g/dL Albumin 4.2 (3.5-5.0) g/dL Lipase 45 (8-78) U/L Urine Color Yellow Urine Appearance Clear Urine pH 8.0 (5.0-9.0) Ur Specific [place] 1.010 (1.005-1.025) Urine Protein Negative (Neg-Trace) mg/dL Urine Glucose (UA) Negative (Negative) mg/dL Urine Ketones Negative (Negative) mg/dL Urine Blood Negative (Negative) Urine Nitrite Negative (Negative) Ur Leukocyte Esterase Negative (Negative) Independent Interpretation I performed an independent interpretation of an: EKG ( I independently reviewed the EKG which shows sinus bradycardia with rate 58, normal [place], normal QRS, normal QT) Discharge Plan Discharge Clinical Impression: Lumbar strain Patient Disposition: Home, Self-Care Instructions: Acute Low Back Pain (ED) Additional Instructions: your blood work, urine sample and EKG are all normal Please follow-up with primary care doctor outpatient Return for any worsening symptoms. Prescriptions: No Action indomethacin 50 mg capsule 50 mg PO TID 5 Days Qty: 15 0RF Rx Instructions: administer with food or milk aspirin 81 mg tablet,delayed release (DR/EC) 81 mg PO DAILY lisinopril 40 mg tablet 40 mg PO DAILY amlodipine 10 mg tablet 10 mg PO DAILY (DME) lancets [TRUEplus Lancets] 33 gauge misc See Rx Instructions Not Applicable TID Qty: 100 Rx Instructions: As directed (DME) FreeStyle Lite Strips Strip See Rx Instructions Not Applicable TID Qty: 10 Rx Instructions: As directed tadalafil 5 mg tablet 5 mg PO DAILY PRN (Reason: sexual activity) 90 Days Qty: 90 0RF omeprazole 20 mg capsule,delayed release(DR/EC) 20 mg PO DAILY cetirizine 10 mg tablet 10 mg PO QAM 30 Days Qty: 30 10RF fluticasone propionate 50 mcg/actuation spray,suspension 2 spray intranasal DAILY 30 Days Qty: 15.8 11RF albuterol sulfate [ProAir HFA] 90 mcg/actuation HFA aerosol inhaler 2 puff inhalation Q6H PRN (Reason: Wheezing) 30 Days Qty: 8.5 11RF Hope Saline 0.65 % aerosol,spray 2 spray intranasal Q4H PRN (Reason: dry nasal passages) 30 Days Qty: 50 11RF meclizine 25 mg tablet 25 mg PO DAILY PRN (Reason: Vertigo) triamcinolone acetonide 0.1 % ointment topical Referrals: Ashley Frankel MD [Primary Care Provider] - 1 week
[2022-10-08 09:00] LABS: Appearance Urine Clear; Color Urine Yellow; Glucose Urine UA Negative (Negative); Leukocyte Esterase Urine Negative (Negative); Nitrite Urine Negative (Negative); Urine Blood Negative (Negative); Urine Ketones Negative (Negative); Urine Protein Negative (Neg-Trace)
[2022-10-08 09:15] LABS: Alanine Aminotransferase 16 U/L (0-40); Albumin Level 4.2 g/dL (3.5-5.0); Alkaline Phosphatase 111 U/L (39-117); Aspartate Amino Transferase 19 U/L (5-37); Bilirubin Direct 0.2 mg/dL (0.0-0.5); Bilirubin Total 0.9 mg/dL (0.0-1.0); Lipase 45 U/L (8-78); Total Protein 6.7 g/dL (6.5-8.0)
[2022-10-08 09:22] LABS: Troponin-I High Sensitivity 5.1 ng/L (<3.5-35.0)
[2022-10-08 10:08] VITALS: BP 166/97; PULSE 59; RESP 18; TEMP 36.6; O2SAT 97
== END 2022-10-08 10:00 | disposition home or self-care (01) ==
PROVIDERS: Nurse Practitioner Family; Emergency Provider Student in an Organized Health Care Education/Training Program; PCP Family Medicine
DX: S39.012A Strain of muscle, fascia and tendon of lower back, initial encounter (principal); X58.XXXA Exposure to other specified factors, initial encounter; E11.9 Type 2 diabetes mellitus without complications; I10 Essential (primary) hypertension; E78.5 Hyperlipidemia, unspecified; K21.9 Gastro-esophageal reflux disease without esophagitis; Z79.82 Long term (current) use of aspirin; Z79.899 Other long term (current) drug therapy; Z87.891 Personal history of nicotine dependence; Y93.9 Activity, unspecified; Y92.9 Unspecified place or not applicable; Y99.9 Unspecified external cause status
CPT/HCPCS: 36415; 80048; 80076; 81003; 83690; 84484; 85025; 93005; 99283; 99284

== ENCOUNTER 2022-10-31 08:17 | Emergency (ER) | payer MEDICARE, MEDICAID, SELFPAY ==
--- NOTE | ~2022-10-31 | XR_ITS ---
EXAMINATION: XR LUMBOSACRAL SPINE CLINICAL INFORMATION: Back pain COMPARISON: September 2020. TECHNIQUE: Three views of the lumbosacral spine. FINDINGS: Spondylitic changes again observed. No acute lumbar compression fractures seen. Slight wedge deformity L3 is likely remote and does not appear appreciably changed. Degenerative disc space narrowing is again seen, most pronounced L5-S1. There is multilevel facet arthrosis. XR/XR lumbar spine 2-3V IMPRESSION: No new compression fractures. Multilevel degenerative changes as noted.
[2022-10-31 08:21] VITALS: BP 167/82; PULSE 61; RESP 20; TEMP 36.3; O2SAT 96; BMI 31.1
[2022-10-31 09:08] LABS: Appearance Urine Clear; Color Urine Yellow; Glucose Urine UA Negative (Negative); Leukocyte Esterase Urine Negative (Negative); Nitrite Urine Negative (Negative); Urine Blood Negative (Negative); Urine Ketones Negative (Negative); Urine Protein Negative (Neg-Trace)
--- NOTE | 2022-10-31 10:49 | ED_ITS ---
HPI - Back Pain/Injury General Chief Complaint: Back Pain/Injury Stated Complaint: Lower back pain Time Seen by Provider: 10/31/22 10:34 Source: patient Mode of arrival: ambulatory Limitations: no limitations History of Present Illness HPI Narrative: 57-year-old male presents to the ED for back pain since last night. Patient also states increased urinary frequency. Patient denies any nausea, vomiting, hematuria, testicular pain, flank pain, fever, chills, urinary/bowel incontinence, or any recent trauma. Patient denies any IV drug use. Related Data Home Medications Medication Instructions Recorded Confirmed aspirin 81 mg tablet,delayed 81 mg PO DAILY 08/04/20 08/18/22 release amlodipine 10 mg tablet 10 mg PO DAILY 06/22/21 08/18/22 blood sugar diagnostic (FreeStyle #10 ea 06/22/21 Lite Strips) lancets 33 gauge (TRUEplus Lancets) #100 ea 06/22/21 lisinopril 40 mg tablet 40 mg PO DAILY 06/22/21 08/18/22 meclizine 25 mg tablet 25 mg PO DAILY PRN Vertigo 02/17/22 08/18/22 triamcinolone acetonide 0.1 % topical 02/17/22 topical ointment omeprazole 20 mg capsule,delayed 20 mg PO DAILY 08/15/22 10/14/22 release Previous Rx's Medication Instructions Recorded tadalafil 5 mg tablet 5 mg PO DAILY PRN sexual activity 06/22/21 90 days #90 tabs indomethacin 50 mg capsule 50 mg PO TID 5 days #15 caps 10/11/21 albuterol sulfate 90 mcg/actuation 2 puff inhalation Q6H PRN Wheezing 08/15/22 aerosol inhaler (ProAir HFA) 30 days #8.5 grams cetirizine 10 mg tablet 10 mg PO QAM 30 days #30 tabs 08/15/22 fluticasone propionate 50 2 spray intranasal DAILY 30 days 08/15/22 mcg/actuation nasal #15.8 mL spray,suspension sodium chloride 0.65 % nasal spray 2 spray intranasal Q4H PRN dry 08/15/22 aerosol ([place] Saline) nasal passages 30 days #50 mL cyclobenzaprine 10 mg tablet 10 mg PO BEDTIME PRN muscle spasm 10/31/22 10 days #10 tabs naproxen 500 mg tablet 500 mg PO BID PRN pain 7 days #14 10/31/22 tabs prednisone 20 mg tablet 40 mg PO DAILY 5 days #10 tabs 10/31/22 Allergies Allergy/AdvReac Type Severity Reaction Status Date / Time amoxicillin [AMOXICILLIN] Allergy Severe ANAPHYLAXIS Verified 10/14/22 13:06 Penicillins Allergy Severe UNKNOWN Verified 10/14/22 13:06 REACTION-CHILDHOOD doxycycline [From VIBRAMYCIN] AdvReac Mild DIARRHEA Verified 10/14/22 13:06 Clindamycin HCl Allergy Severe Anaphylaxis Uncoded 10/14/22 13:06 Review of Systems Review of Systems: Back pain Yes all other systems are reviewed and are negative [facility] Past Medical History Medical History Asthma Diabetes HTN (hypertension) Nasal polyps Orchialgia Pulmonary nodules Weak urinary stream Surgical History H/O wrist surgery History of esophagogastroduodenoscopy (EGD) Hx of colonoscopy Family History Family History Father Diabetes Hypertension Mother Hypertension Hyperlipidemia Brother Hypertension Family/Other Kidney stones Prostate cancer Bladder cancer Renal cancer Social History Social History Alcohol intake: never Patient Tobacco Use Status: Former Tobacco user Quit Date: 1991 Tobacco use type: Cigarette Years Smoked: 30 years Advance Directives: No Physical Exam Vital Signs: Vital Signs: Last Vital Signs Temp 97.4 F 10/31/22 08:21 Pulse 61 10/31/22 08:21 Resp 20 10/31/22 08:21 BP 167/82 H 10/31/22 08:21 Pulse Ox 96 10/31/22 08:21 O2 Del Method 10/31/22 08:21 BMI result Body Mass Index 31.1 Const: General: cooperative, healthy appearing, comfortable, no acute distress, well developed, alert, awake and Physically active Orientation/consciousness: oriented to person, oriented to place, oriented to time and patient oriented x3 HEENT: Head: Yes normal to inspection, Yes No palpable skull fracture present, Yes normocephalic and Yes atraumatic Eyes: General: appearance normal, both eyes and all related structures Neck: Neck: Yes normal visual inspection, Yes full ROM, Yes no lymphadenopathy, Yes no meningeal signs, Yes trachea midline, Yes supple, No anterior neck swelling and No tender Chest: Chest palpation & inspection: normal inspection of the chest and normal palpation of entire chest wall Resp: Effort & Inspection: normal respiratory effort and able to speak in complete sentences Auscultation: clear to auscultation bilaterally Cardio: Jugular venous distension: no JVD Heart sounds: S1 normal heart sound present and S2 normal heart sound present GI: Inspection: Yes normal to inspection and No abdominal wall ecchymosis Palpation (GI): Soft to palpation, not firm, nontender, no guarding and not rigid : General: No CVA tenderness and Yes no CVA tenderness Back/Spine/Pelvis: Back: no CVA tenderness, No CVA tenderness and back tenderness (positive for lumbar spine tenderness on palpation. ) Skin: General skin exam: no rashes or lesions noted and elasticity normal Neuro: General: oriented to person, oriented to place, oriented to time, patient oriented x3, gait normal, tone normal, moves all extremities, Normal light touch and pain sensation and no meningeal signs Extrem: General: Yes normal to inspection and Yes full ROM Psych: Appearance: grossly normal, well kempt and not disheveled Course Course Course Narrative: Fifty a.m. with back pain exacerbations. Reevaluation(s) Reevaluation #1: UA negative for UTI. Spine x-ray positive for lumbar radiculopathy. Negative for sinus symptoms of cauda equinus syndrome or epidural abscess. Not suspecting UTI or kidney stone. Time: 10:54 Medical Decision Making Medical Decision Making [facility] Narrative: 57-year-old male presents to ED for chronic back pain exacerbation with increased urinary frequency. X-ray shows lung reticular opacity UA negative for infection. Differential Diagnosis Differential Diagnoses: The differential diagnosis associated with the presen tation includes (UTI, kidney stones, spinal fracture, lumbar radiculopathy. Muscle spasm.) Lab Data [facility] Lab Attestation statement: I reviewed the patient's lab results. Labs: Lab Results 10/31/22 Range/Units 09:01 Urine Color Yellow Urine Appearance Clear Urine pH 6.0 (5.0-9.0) Ur Specific [place] 1.010 (1.005-1.025) Urine Protein Negative (Neg-Trace) mg/dL Urine Glucose (UA) Negative (Negative) mg/dL Urine Ketones Negative (Negative) mg/dL Urine Blood Negative (Negative) Urine Nitrite Negative (Negative) Ur Leukocyte Esterase Negative (Negative) Radiology Impression Discussion of test interpretation with radiology: I have reviewed the radiologist's reading. Prescription Management I considered prescription management with: Pain Medication Discharge Plan Discharge Clinical Impression: Chronic lumbar radiculopathy Patient Disposition: Home, Self-Care Instructions: Lumbar Radiculopathy (ED) Additional Instructions: X-ray shows severe lumbar arthritis. You will need follow-up with primary care provider for referral to physical therapy and possible MRI if indicated. Return to the ED for any urinary/bowel incontinence, abdominal pain, nausea, vomiting, flank pain, fever, chills, testicular pain, worsening back pain, or any other concerning symptoms. Prescriptions: New naproxen 500 mg tablet 500 mg PO BID PRN (Reason: pain) 7 Days Qty: 14 0RF prednisone 20 mg tablet 40 mg PO DAILY 5 Days Qty: 10 0RF cyclobenzaprine 10 mg tablet 10 mg PO BEDTIME PRN (Reason: muscle spasm) 10 Days Qty: 10 0RF No Action indomethacin 50 mg capsule 50 mg PO TID 5 Days Qty: 15 0RF Rx Instructions: administer with food or milk aspirin 81 mg tablet,delayed release (DR/EC) 81 mg PO DAILY lisinopril 40 mg tablet 40 mg PO DAILY amlodipine 10 mg tablet 10 mg PO DAILY (DME) lancets [TRUEplus Lancets] 33 gauge misc See Rx Instructions Not Applicable TID Qty: 100 Rx Instructions: As directed (DME) FreeStyle Lite Strips Strip See Rx Instructions Not Applicable TID Qty: 10 Rx Instructions: As directed tadalafil 5 mg tablet 5 mg PO DAILY PRN (Reason: sexual activity) 90 Days Qty: 90 0RF omeprazole 20 mg capsule,delayed release(DR/EC) 20 mg PO DAILY cetirizine 10 mg tablet 10 mg PO QAM 30 Days Qty: 30 10RF fluticasone propionate 50 mcg/actuation spray,suspension 2 spray intranasal DAILY 30 Days Qty: 15.8 11RF albuterol sulfate [ProAir HFA] 90 mcg/actuation HFA aerosol inhaler 2 puff inhalation Q6H PRN (Reason: Wheezing) 30 Days Qty: 8.5 11RF [place] Saline 0.65 % aerosol,spray 2 spray intranasal Q4H PRN (Reason: dry nasal passages) 30 Days Qty: 50 11RF meclizine 25 mg tablet 25 mg PO DAILY PRN (Reason: Vertigo) triamcinolone acetonide 0.1 % ointment topical Stand Alone Forms: Work/School Release Interventions: ED Discharge Assessment Last Done: 10/31/22 11:05 Discharge Date/Time: 10/31/22 11:05 Print Language: [place]ian
== END 2022-10-31 11:05 | disposition home or self-care (01) ==
PROVIDERS: Emergency Provider Emergency Medicine; PCP Family Medicine
DX: M54.16 Radiculopathy, lumbar region (principal); G89.29 Other chronic pain; M54.50 Low back pain, unspecified
CPT/HCPCS: 72100; 81003; 99282; 99283

== ENCOUNTER → 2023-01-13 10:45 | Outpatient (BNVA) | payer MEDICARE, MEDICAID, SELFPAY | PROVIDERS: PCP Family Medicine; Visit Provider Urology | DX: N40.1 Benign prostatic hyperplasia with lower urinary tract symptoms (principal); N13.8 Other obstructive and reflux uropathy; E11.69 Type 2 diabetes mellitus with other specified complication; N52.1 Erectile dysfunction due to diseases classified elsewhere | CPT/HCPCS: 51798; 99212 ==

== ENCOUNTER 2023-01-27 12:13 | Emergency (ER) | payer MEDICARE, MEDICAID, SELFPAY ==
[2023-01-27 12:18] VITALS: BP 164/80; PULSE 82; RESP 18; TEMP 36.7; O2SAT 98; BMI 29.6
--- NOTE | 2023-01-27 12:18 | ED_ITS ---
HPI - General Adult General Chief complaint: Abdominal Pain Stated complaint: abd pain Source: patient Mode of arrival: ambulatory Limitations: no limitations History of Present Illness HPI narrative: Patient is a 57 year old assigned male at with a history of BPH and GERD presenting to the emergency department today with abdominal pain. Patient states that over the last few months he has had abdominal pain, was seen somewhere and told to get a cat scan. Patient denies any dizziness, lightheadedness, nausea, vomiting, fever, chills, blurry vision, double vision, loss of vision, chest pain, difficulty breathing, shortness of breath, back pain, night sweats, pain with urination, increased urinary frequency, increased urinary urgency, blood in his urine or stool, syncope or a near syncopal episode, recent trauma or falls, bowel incontinence, bladder incontinence, bowel retention, bladder retention, or any other complaints at this time. Onset (ago): month(s) Location: abdomen Severity: mild Severity scale (1-10): 4 Quality: aching Pain Consistency: intermittent Relieving factors: none Exacerbating factors: none Associated symptoms: denies other symptoms Treatments prior to arrival: none Related Data Home Medications Medication Instructions Recorded Confirmed aspirin 81 mg tablet,delayed 81 mg PO DAILY 08/04/20 01/13/23 release amlodipine 10 mg tablet 10 mg PO DAILY 06/22/21 01/13/23 blood sugar diagnostic (FreeStyle #10 ea 06/22/21 01/13/23 Lite Strips) lancets 33 gauge (TRUEplus Lancets) #100 ea 06/22/21 01/13/23 lisinopril 40 mg tablet 40 mg PO DAILY 06/22/21 01/13/23 meclizine 25 mg tablet 25 mg PO DAILY PRN Vertigo 02/17/22 01/13/23 triamcinolone acetonide 0.1 % topical 02/17/22 01/13/23 topical ointment omeprazole 20 mg capsule,delayed 20 mg PO DAILY 08/15/22 01/13/23 release Previous Rx's Medication Instructions Recorded indomethacin 50 mg capsule 50 mg PO TID 5 days #15 caps 10/11/21 albuterol sulfate 90 mcg/actuation 2 puff inhalation Q6H PRN Wheezing 08/15/22 aerosol inhaler (ProAir HFA) 30 days #8.5 grams cetirizine 10 mg tablet 10 mg PO QAM 30 days #30 tabs 08/15/22 fluticasone propionate 50 2 spray intranasal DAILY 30 days 08/15/22 mcg/actuation nasal #15.8 mL spray,suspension sodium chloride 0.65 % nasal spray 2 spray intranasal Q4H PRN dry 08/15/22 aerosol (Miracle Saline) nasal passages 30 days #50 mL cyclobenzaprine 10 mg tablet 10 mg PO BEDTIME PRN muscle spasm 10/31/22 10 days #10 tabs naproxen 500 mg tablet 500 mg PO BID PRN pain 7 days #14 10/31/22 tabs prednisone 20 mg tablet 40 mg PO DAILY 5 days #10 tabs 10/31/22 tadalafil 10 mg tablet 10 mg PO DAILY PRN sexual activity 01/13/23 90 days #90 tabs terazosin 5 mg capsule 5 mg PO BEDTIME 30 days #30 caps 01/13/23 Allergies Allergy/AdvReac Type Severity Reaction Status Date / Time amoxicillin [AMOXICILLIN] Allergy Severe ANAPHYLAXIS Verified 01/13/23 11:06 Penicillins Allergy Severe UNKNOWN Verified 01/13/23 11:06 REACTION-CHILDHOOD doxycycline [From VIBRAMYCIN] AdvReac Mild DIARRHEA Verified 01/13/23 11:06 Clindamycin HCl Allergy Severe Anaphylaxis Uncoded 01/13/23 11:06 Review of Systems Constitutional: Constitutional: Reports no additional constitutional complaints, Denies chills, Denies fever(s) and Denies night sweats Eyes: Eyes: Reports no additional eye complaints, Denies blurry vision, Denies change in vision, Denies diplopia, Denies eye discharge, Denies loss of vision and Denies eye pain ENT: Denies dizziness Cardiovascular: Cardiovascular: Reports no additional cardiovascular complain ts, Denies chest pain, Denies lightheadedness, Denies Loss of Consciousness and Denies dyspnea Respiratory: Respiratory: Reports no additional respiratory complaints and Denies dyspnea Gastrointestinal: Gastrointestinal: Reports no additional gastrointestinal complaints, Reports abdominal pain, Denies melena, Denies hematochezia, Denies change in bowel habits and Denies change in stool character Genitourinary: Genitourinary: Reports no additional male genitourinary complaints, Denies hematuria, Denies oliguria, Denies difficulty urinating, Denies dysuria, Denies urinary frequency, Denies urinary hesitancy, Denies urinary incontinence and Denies urinary urgency Musculoskeletal: Musculoskeletal: Reports no additional musculoskeletal complaints, Denies numbness and Denies tingling Neurologic: Denies dizziness, Denies loss of vision, Denies numbness and Denies tingling Psychiatric: Psychiatric: Reports no additional psychiatric complaints Endocrine: Endocrine: Reports no additional endocrine complaints Hematologic/Lymphatic: Hematologic/Lymphatic: Reports no additional hematologi c/lymphatic complaints Allergic/Immunologic: Allergic/Immunologic: Reports no additional allergic/immunologic complaints PMFSH Past Medical History Attestation statement: The following information was validated with the patient. Source: old records reviewed and nursing notes reviewed Medical History Asthma Diabetes HTN (hypertension) Nasal polyps Orchialgia Pulmonary nodules Weak urinary stream Surgical History H/O wrist surgery History of esophagogastroduodenoscopy (EGD) Hx of colonoscopy Family History Family History Father Diabetes Hypertension Mother Hypertension Hyperlipidemia Brother Hypertension Family/Other Kidney stones Prostate cancer Bladder cancer Renal cancer Social History Social History Alcohol intake: never Patient Tobacco Use Status: Former Tobacco user Quit Date: 1991 Tobacco use type: Cigarette Years Smoked: 30 years Advance Directives: No Advance Directives Information Provided: No Physical Exam ED Vital Signs: Vital Signs - 24 hr 01/27/23 12:18 Temperature 98.1 F Pulse Rate 82 Respiratory Rate 18 Blood Pressure 164/80 H Pulse Oximetry 98 Oxygen Delivery Method Room Air BMI result Body Mass Index 29.6 Const General: cooperative, no acute distress, alert and awake Nutritional Appearance: well nourished Orientation/consciousness: patient oriented x3 Limitations: no limitations HENMT Head: Yes normal to inspection and Yes atraumatic Ears: hearing grossly normal bilaterally and external ears normal General nose exam: Normal external nose present, no nasal discharge noted and no epistaxis Face and sinus: Yes normal facial exam, No abrasion and No laceration Mouth: Normal oral and palatal mucosa present, no drooling and no muffled voice Eyes General: appearance normal, both eyes and all related structures Periorbital: periorbital findings normal Eyelids: Yes eyelids normal Conjunctivae: conjunctivae normal Pupils: Equal, round and reactive pupils present EOM: EOMs intact bilaterally Neck Neck: Yes normal visual inspection, Yes full ROM and Yes no lymphadenopathy Chest Chest palpation & inspection: normal inspection of the chest Resp Effort & Inspection: normal respiratory effort and able to speak in complete sentences GI Inspection: Yes normal to inspection Palpation (GI): Soft to palpation, not firm, nontender, no guarding and not rigid Neuro General: patient oriented x3 and moves all extremities Cranial nerves: Yes Equal, round and reactive pupils present Cognition (Neuro): normal cognition Motor exam (neuro): 5/5 motor strength present throughout Sensory Exam: Normal double simultaneous stimulation for sensation Coordination: [id number] test normal Extrem General: Yes normal to inspection, Yes full ROM and Yes capillary refill normal Psych Appearance: grossly normal Mental Status: mental status grossly normal Affect: normal affect Attitude: cooperative Thought process: Normal thought process present Thought content: Normal thought content present Insight: Good insight present (Psych) Course Course Course Narrative: RME performed by Aleida Traore PA-C. Patient is a 57 year old assigned male at presenting to the emergency department with abdominal pain. Patient states that he was told to come in and get a CT scan done because he is having so much pain in his abdomen. Patient is a poor historian. Labs ordered. Patient placed back in the waiting room pending room availability and results. Medical Decision Making Medical Decision Making [facility] Narrative: Patient is a 57 year old assigned male at with a history of BPH presenting to the emergency department today with vague abdominal pain. Patient's physical exam was unremarkable. Patient's blood work was unremarkable. Patient eloped from the department before I could review my physical exam findings or his results with him. Differential Diagnosis Differential Diagnoses: The differential diagnosis associated with the presentation includes abdominal pain Admission/Observation Consideration of admission/observation: Escalation of care including admission/observation considered Patient would have been admitted to the hospital had his work up had any findings where hospital admission was appropriate. Lab Data [facility] Lab Attestation statement: I reviewed the patient's lab results. My interpretation of these studies and their corresponding values is that they are grossly normal. 01/27/23 12:32 01/27/23 12:31 Labs: Lab Results 01/27/23 01/27/23 Range/Units 12:31 12:32 WBC 5.8 (4.8-10.8) X10*3/uL RBC 4.47 L (4.60-5.80) X10*6/uL Hgb 13.4 L (14.0-18.0) g/dl Hct 40.1 L (42.0-52.0) % MCV 89.7 (80.0-98.0) fL MCH 30.0 (27.0-33.0) pg MCHC 33.4 (31.0-36.0) g/dl RDW 12.3 (11.0-16.0) % Plt Count 218 (160-400) X10*3/uL MPV 10.6 (9.4-12.4) fL Immature Gran % (Auto) 0.3 (0.0-0.4) % Neut % (Auto) 67.4 (45-73) % Lymph % (Auto) 21.8 (20-40) % [place] % (Auto) 9.5 (2-11) % Eos % (Auto) 0.7 (0-4) % Baso % (Auto) 0.3 (0-2) % Lymph # (Auto) 1.3 (1.2-4.9) X10*3/uL [place] # (Auto) 0.6 (0.1-1.2) X10*3/uL Eos # (Auto) 0.0 (0.0-0.4) X10*3/uL Baso # (Auto) 0.0 (0.0-0.2) X10*3/uL Abs Immat Gran (auto) 0.02 (0.00-0.03) X10*3/uL Absolute Neuts (auto) 3.9 (2.0-8.3) x10*3/uL Absolute Nucleated RBC 0.000 (0.0-0.012) X10*3/uL Nucleated RBC % (auto) 0.0 (0.0-0.2) /100WBC Sodium 140 (135-145) mmol/L Potassium 4.0 (3.3-5.1) mmol/L Chloride 107 (96-108) mmol/L Carbon Dioxide 25 (22-29) mmol/L Anion Gap 12 (12-20) BUN 14 (9-16) mg/dL Creatinine 0.98 (0.5-1.4) mg/dL Estim Creat Clear Calc 88.8 Estimated GFR > 60 Random Glucose 153 H (60-115) mg/dL Calcium 9.5 (8.4-10.2) mg/dL Magnesium 2.0 (1.6-2.6) mg/dL Total Bilirubin 0.9 (0.0-1.0) mg/dL AST 19 (5-37) U/L ALT 13 (0-40) U/L Alkaline Phosphatase 106 (39-117) U/L Total Protein 6.7 (6.5-8.0) g/dL Albumin 4.0 (3.5-5.0) g/dL Lipase 50 (8-78) U/L Discharge Plan Discharge Clinical Impression: Abdominal pain Patient Disposition: Elopement Prescriptions: No Action indomethacin 50 mg capsule 50 mg PO TID 5 Days Qty: 15 0RF Rx Instructions: administer with food or milk naproxen 500 mg tablet 500 mg PO BID PRN (Reason: pain) 7 Days Qty: 14 0RF prednisone 20 mg tablet 40 mg PO DAILY 5 Days Qty: 10 0RF cyclobenzaprine 10 mg tablet 10 mg PO BEDTIME PRN (Reason: muscle spasm) 10 Days Qty: 10 0RF aspirin 81 mg tablet,delayed release (DR/EC) 81 mg PO DAILY lisinopril 40 mg tablet 40 mg PO DAILY amlodipine 10 mg tablet 10 mg PO DAILY (DME) lancets [TRUEplus Lancets] 33 gauge misc See Rx Instructions Not Applicable TID Qty: 100 Rx Instructions: As directed (DME) FreeStyle Lite Strips Strip See Rx Instructions Not Applicable TID Qty: 10 Rx Instructions: As directed omeprazole 20 mg capsule,delayed release(DR/EC) 20 mg PO DAILY cetirizine 10 mg tablet 10 mg PO QAM 30 Days Qty: 30 10RF fluticasone propionate 50 mcg/actuation spray,suspension 2 spray intranasal DAILY 30 Days Qty: 15.8 11RF albuterol sulfate [ProAir HFA] 90 mcg/actuation HFA aerosol inhaler 2 puff inhalation Q6H PRN (Reason: Wheezing) 30 Days Qty: 8.5 11RF Miracle Saline 0.65 % aerosol,spray 2 spray intranasal Q4H PRN (Reason: dry nasal passages) 30 Days Qty: 50 11RF meclizine 25 mg tablet 25 mg PO DAILY PRN (Reason: Vertigo) triamcinolone acetonide 0.1 % ointment topical tadalafil 10 mg tablet 10 mg PO DAILY PRN (Reason: sexual activity) 90 Days Qty: 90 0RF terazosin 5 mg capsule 5 mg PO BEDTIME 30 Days Qty: 30 1RF Interventions: ED Discharge Assessment Last Done: 01/27/23 13:06 Discharge Date/Time: 01/27/23 13:07
[2023-01-27 12:36] LABS: MANUAL DIFF FLAG NO
[2023-01-27 12:40] LABS: Basophils Percent Auto 0.3 % (0-2); Eosinophils Percent Auto 0.7 % (0-4); Hematocrit 40.1 % (42.0-52.0); Hemoglobin 13.4 g/dl (14.0-18.0); Imm Gran Abs Auto 0.02 X10*3/uL (0.00-0.03); Imm Gran Pct Auto 0.3 % (0.0-0.4); Lymphocytes Absolute Auto 1.3 X10*3/uL (1.2-4.9); Lymphocytes Percent Auto 21.8 % (20-40); Mean Corpuscular HGB Conc 33.4 g/dl (31.0-36.0); Mean Corpuscular Volume 89.7 fL (80.0-98.0); Mean Platelet Volume 10.6 fL (9.4-12.4); Monocytes Absolute Auto 0.6 X10*3/uL (0.1-1.2); Monocytes Percent Auto 9.5 % (2-11); Neutrophils Absolute Auto 3.9 x10*3/uL (2.0-8.3); Neutrophils Percent Auto 67.4 % (45-73); Platelet Count 218 X10*3/uL (160-400); Red Blood Count 4.47 X10*6/uL (4.60-5.80); Red Cell Distribution Width 12.3 % (11.0-16.0); White Blood Count 5.8 X10*3/uL (4.8-10.8)
[2023-01-27 12:54] LABS: Alanine Aminotransferase 13 U/L (0-40); Alkaline Phosphatase 106 U/L (39-117); Anion Gap 12 (12-20); Aspartate Amino Transferase 19 U/L (5-37); Bilirubin Total 0.9 mg/dL (0.0-1.0); Blood Urea Nitrogen 14 mg/dL (9-16); Calcium 9.5 mg/dL (8.4-10.2); Carbon Dioxide 25 mmol/L (22-29); Chloride 107 mmol/L (96-108); Creatinine Clr Calc Pharmacy 88.8; Estimated Glomerular Filt Rate > 60; Glucose Random 153 mg/dL (60-115); Lipase 50 U/L (8-78); Sodium 140 mmol/L (135-145); Total Protein 6.7 g/dL (6.5-8.0)
== END 2023-01-27 13:07 | disposition left against medical advice (07) ==
PROVIDERS: Physician Assistant Medical; Emergency Provider Emergency Medicine; PCP Family Medicine
DX: R10.9 Unspecified abdominal pain (principal); E11.9 Type 2 diabetes mellitus without complications; I10 Essential (primary) hypertension; Z79.899 Other long term (current) drug therapy; Z79.82 Long term (current) use of aspirin
CPT/HCPCS: 36415; 80053; 83690; 83735; 85025; 99282

== ENCOUNTER 2023-01-27 16:42 | Emergency (ER) | payer MEDICARE, MEDICAID, SELFPAY ==
[2023-01-27 16:45] VITALS: BP 162/87; PULSE 75; RESP 18; TEMP 36.8; O2SAT 98; BMI 29.6
--- NOTE | 2023-01-27 16:46 | ED_ITS ---
HPI - General Adult General Chief complaint: Abdominal Pain Stated complaint: needs ct scan, was here earlier but left Source: patient Mode of arrival: ambulatory Limitations: no limitations History of Present Illness HPI narrative: Patient is a 57 year old assigned male at with a history of BPH and GERD presenting to the emergency department today with abdominal pain. Patient states that over the last few months he has had abdominal pain, was seen somewhere and told to get a cat scan. Patient states that he was here earlier however, he had to leave after he got his blood drawn. Patient denies any dizziness, lightheadedness, nausea, vomiting, fever, chills, blurry vision, double vision, loss of vision, chest pain, difficulty breathing, shortness of breath, back pain, night sweats, pain with urination, increased urinary frequency, increased urinary urgency, blood in his urine or stool, syncope or a near syncopal episode, recent trauma or falls, bowel incontinence, bladder incontinence, bowel retention, bladder retention, or any other complaints at this time. Onset (ago): month(s) Location: abdomen Severity: mild Severity scale (1-10): 4 Relieving factors: none Exacerbating factors: none Associated symptoms: denies other symptoms Treatments prior to arrival: none Related Data Home Medications Medication Instructions Recorded Confirmed aspirin 81 mg tablet,delayed 81 mg PO DAILY 08/04/20 01/13/23 release amlodipine 10 mg tablet 10 mg PO DAILY 06/22/21 01/13/23 blood sugar diagnostic (FreeStyle #10 ea 06/22/21 01/13/23 Lite Strips) lancets 33 gauge (TRUEplus Lancets) #100 ea 06/22/21 01/13/23 lisinopril 40 mg tablet 40 mg PO DAILY 06/22/21 01/13/23 meclizine 25 mg tablet 25 mg PO DAILY PRN Vertigo 02/17/22 01/13/23 triamcinolone acetonide 0.1 % topical 02/17/22 01/13/23 topical ointment omeprazole 20 mg capsule,delayed 20 mg PO DAILY 08/15/22 01/13/23 release Previous Rx's Medication Instructions Recorded indomethacin 50 mg capsule 50 mg PO TID 5 days #15 caps 10/11/21 albuterol sulfate 90 mcg/actuation 2 puff inhalation Q6H PRN Wheezing 08/15/22 aerosol inhaler (ProAir HFA) 30 days #8.5 grams cetirizine 10 mg tablet 10 mg PO QAM 30 days #30 tabs 08/15/22 fluticasone propionate 50 2 spray intranasal DAILY 30 days 08/15/22 mcg/actuation nasal #15.8 mL spray,suspension sodium chloride 0.65 % nasal spray 2 spray intranasal Q4H PRN dry 08/15/22 aerosol ([place] Saline) nasal passages 30 days #50 mL cyclobenzaprine 10 mg tablet 10 mg PO BEDTIME PRN muscle spasm 10/31/22 10 days #10 tabs naproxen 500 mg tablet 500 mg PO BID PRN pain 7 days #14 10/31/22 tabs prednisone 20 mg tablet 40 mg PO DAILY 5 days #10 tabs 10/31/22 tadalafil 10 mg tablet 10 mg PO DAILY PRN sexual activity 01/13/23 90 days #90 tabs terazosin 5 mg capsule 5 mg PO BEDTIME 30 days #30 caps 01/13/23 Allergies Allergy/AdvReac Type Severity Reaction Status Date / Time amoxicillin [AMOXICILLIN] Allergy Severe ANAPHYLAXIS Verified 01/13/23 11:06 Penicillins Allergy Severe UNKNOWN Verified 01/13/23 11:06 REACTION-CHILDHOOD doxycycline [From VIBRAMYCIN] AdvReac Mild DIARRHEA Verified 01/13/23 11:06 Clindamycin HCl Allergy Severe Anaphylaxis Uncoded 01/13/23 11:06 Review of Systems Constitutional: Constitutional: Reports no additional constitutional complaints, Denies chills, Denies fever(s) and Denies night sweats Eyes: Eyes: Reports no additional eye complaints, Denies blurry vision, Denies change in vision, Denies diplopia, Denies eye discharge, Denies loss of vision and Denies eye pain ENT: Denies dizziness Cardiovascular: Cardiovascular: Reports no additional cardiovascular complaints, Denies chest pain, Denies lightheadedness, Denies Loss of Consciousness and Denies dyspnea Respiratory: Respiratory: Reports no additional respiratory complaints and Denies dyspnea Gastrointestinal: Gastrointestinal: Reports no additional gastrointestinal complaints, Reports abdominal pain, Denies melena, Denies hematochezia, Denies change in bowel habits and Denies change in stool character Genitourinary: Genitourinary: Reports no additional male genitourinary complaints, Denies hematuria, Denies oliguria, Denies difficulty urinating, Denies dysuria, Denies urinary frequency, Denies urinary hesitancy, Denies urinary incontinence and Denies urinary urgency Musculoskeletal: Musculoskeletal: Reports no additional musculoskeletal complaints, Denies numbness and Denies tingling Neurologic: Denies dizziness, Denies loss of vision, Denies numbness and Denies tingling Psychiatric: Psychiatric: Reports no additional psychiatric complaints Endocrine: Endocrine: Reports no additional endocrine complaints Hematologic/Lymphatic: Hematologic/Lymphatic: Reports no additional hematologic/lymphatic complaints Allergic/Immunologic: Allergic/Immunologic: Reports no additional allergic/immunologic complaints PMFSH Past Medical History Attestation statement: The following information was validated with the patient. Source: old records reviewed and nursing notes reviewed Medical History Asthma Diabetes HTN (hypertension) Nasal polyps Orchialgia Pulmonary nodules Weak urinary stream Surgical History H/O wrist surgery History of esophagogastroduodenoscopy (EGD) Hx of colonoscopy Family History Family History Father Diabetes Hypertension Mother Hypertension Hyperlipidemia Brother Hypertension Family/Other Kidney stones Prostate cancer Bladder cancer Renal cancer Social History Social History Alcohol intake: never Patient Tobacco Use Status: Former Tobacco user Quit Date: 1991 Tobacco use type: Cigarette Years Smoked: 30 years Advance Directives: No Advance Directives Information Provided: No Physical Exam ED Vital Signs: Vital Signs - 24 hr 01/27/23 16:45 Temperature 98.3 F Pulse Rate 75 Respiratory Rate 18 Blood Pressure 162/87 H Pulse Oximetry 98 Oxygen Delivery Method Room Air BMI result Body Mass Index 29.6 Const General: cooperative, no acute distress, alert and awake Nutritional Appearance: well nourished Orientation/consciousness: patient oriented x3 Limitations: no limitations HENMT Head: Yes normal to inspection and Yes atraumatic Ears: hearing grossly normal bilaterally and external ears normal General nose exam: Normal external nose present, no nasal discharge noted and no epistaxis Face and sinus: Yes normal facial exam, No abrasion and No laceration Mouth: Normal oral and palatal mucosa present, no drooling and no muffled voice Eyes General: appearance normal, both eyes and all related structures Periorbital: periorbital findings normal Eyelids: Yes eyelids normal Conjunctivae: conjunctivae normal Pupils: Equal, round and reactive pupils present EOM: EOMs intact bilaterally Neck Neck: Yes normal visual inspection, Yes full ROM and Yes no lymphadenopathy Chest Chest palpation & inspection: normal inspection of the chest Resp Effort & Inspection: normal respiratory effort and able to speak in complete sentences GI Inspection: Yes normal to inspection Palpation (GI): Soft to palpation, not firm, nontender and no guarding Neuro General: patient oriented x3 and moves all extremities Cranial nerves: Yes Equal, round and reactive pupils present Cognition (Neuro): normal cognition Motor exam (neuro): 5/5 motor strength present throughout Sensory Exam: Normal double simultaneous stimulation for sensation Coordination: [id number] test normal Extrem General: Yes normal to inspection, Yes full ROM and Yes capillary refill normal Psych Appearance: grossly normal Mental Status: mental status grossly normal Affect: normal affect Attitude: cooperative Thought process: Normal thought process present Thought content: Normal thought content present Insight: Good insight present (Psych) Course Course Course Narrative: RME performed by Aleida Traore PA-C. Patient is a 57 year old assigned male at presenting to the emergency department with abdominal pain. Labs were done here earlier today. Patient requesting CT scan. Patient placed back in the waiting room pending room availability. Medical Decision Making Medical Decision Making [facility] Narrative: Patient is a 57 year old assigned male at with a history of BPH presenting to the emergency department today with vague abdominal pain. Patient's physical exam was unremarkable. Patient's blood work drawn earlier in the day, was unremarkable. Patient eloped from the department before myself or any other provider in the department could review his physical exam findings or treatment plan. Differential Diagnosis Differential Diagnoses: The differential diagnosis associated with the presentation includes abdominal pain Lab Data [facility] Lab Attestation statement: I reviewed the patient's lab results. My interpretation of the studies performed earlier on 01/27/2023 and their corresponding values is that they are grossly normal. Discharge Plan Discharge Clinical Impression: Abdominal pain Patient Disposition: Elopement Prescriptions: No Action indomethacin 50 mg capsule 50 mg PO TID 5 Days Qty: 15 0RF Rx Instructions: administer with food or milk naproxen 500 mg tablet 500 mg PO BID PRN (Reason: pain) 7 Days Qty: 14 0RF prednisone 20 mg tablet 40 mg PO DAILY 5 Days Qty: 10 0RF cyclobenzaprine 10 mg tablet 10 mg PO BEDTIME PRN (Reason: muscle spasm) 10 Days Qty: 10 0RF aspirin 81 mg tablet,delayed release (DR/EC) 81 mg PO DAILY lisinopril 40 mg tablet 40 mg PO DAILY amlodipine 10 mg tablet 10 mg PO DAILY (DME) lancets [TRUEplus Lancets] 33 gauge misc See Rx Instructions Not Applicable TID Qty: 100 Rx Instructions: As directed (DME) FreeStyle Lite Strips Strip See Rx Instructions Not Applicable TID Qty: 10 Rx Instructions: As directed omeprazole 20 mg capsule,delayed release(DR/EC) 20 mg PO DAILY cetirizine 10 mg tablet 10 mg PO QAM 30 Days Qty: 30 10RF fluticasone propionate 50 mcg/actuation spray,suspension 2 spray intranasal DAILY 30 Days Qty: 15.8 11RF albuterol sulfate [ProAir HFA] 90 mcg/actuation HFA aerosol inhaler 2 puff inhalation Q6H PRN (Reason: Wheezing) 30 Days Qty: 8.5 11RF [place] Saline 0.65 % aerosol,spray 2 spray intranasal Q4H PRN (Reason: dry nasal passages) 30 Days Qty: 50 11RF meclizine 25 mg tablet 25 mg PO DAILY PRN (Reason: Vertigo) triamcinolone acetonide 0.1 % ointment topical tadalafil 10 mg tablet 10 mg PO DAILY PRN (Reason: sexual activity) 90 Days Qty: 90 0RF terazosin 5 mg capsule 5 mg PO BEDTIME 30 Days Qty: 30 1RF Discharge Date/Time: 01/27/23 23:06
== END 2023-01-27 23:06 | disposition left against medical advice (07) ==
LOC: HO.ED 22:54
PROVIDERS: Emergency Provider Emergency Medicine; PCP Family Medicine
DX: R10.9 Unspecified abdominal pain (principal)
CPT/HCPCS: 36415; 80053; 83690; 83735; 85025; 99281; 99282; 99283

== ENCOUNTER → 2023-01-31 07:48 | Outpatient (BNVA) | payer MEDICARE, MEDICAID, SELFPAY | PROVIDERS: PCP Family Medicine; Referring Provider Family Medicine; Visit Provider Nurse Practitioner | DX: Z01.818 Encounter for other preprocedural examination (principal); K21.9 Gastro-esophageal reflux disease without esophagitis; H91.90 Unspecified hearing loss, unspecified ear | CPT/HCPCS: 99212 ==

== ENCOUNTER 2023-03-04 14:03 | Emergency (ER) | payer MEDICARE, MEDICAID, SELFPAY ==
[2023-03-04 14:05] VITALS: BP 150/79; PULSE 62; RESP 17; TEMP 36.3; O2SAT 97; BMI 30.7
--- NOTE | 2023-03-04 15:42 | ED.HA ---
HPI - Headache General Chief Complaint: Headache Stated Complaint: throbing pain over eyes and forehead Time Seen by Provider: 03/04/23 14:53 Source: patient Mode of arrival: ambulatory Limitations: no limitations History of Present Illness HPI Narrative: 57 yo male with history of HTN, GERD, HLD, asthma here with complaints of frontal headache for months intermittent now constant x 1 week with no vision changes, photophobia, dizziness, vomiting, fevers or chills. Has not seen his PCP for this. Taking APAP with continued symptoms. Not worsened with position changes. No associated neck pain/stiffness/fevers. Related Data Home Medications Medication Instructions Recorded Confirmed aspirin 81 mg tablet,delayed 81 mg PO DAILY 08/04/20 01/13/23 release amlodipine 10 mg tablet 10 mg PO DAILY 06/22/21 01/13/23 blood sugar diagnostic (FreeStyle #10 ea 06/22/21 01/13/23 Lite Strips) lancets 33 gauge (TRUEplus Lancets) #100 ea 06/22/21 01/13/23 lisinopril 40 mg tablet 40 mg PO DAILY 06/22/21 01/13/23 meclizine 25 mg tablet 25 mg PO DAILY PRN Vertigo 02/17/22 01/13/23 triamcinolone acetonide 0.1 % topical 02/17/22 01/13/23 topical ointment omeprazole 20 mg capsule,delayed 20 mg PO DAILY 08/15/22 01/13/23 release ciprofloxacin HCl 500 mg tablet 500 mg PO BID 01/31/23 famotidine 40 mg tablet mg PO 01/31/23 indomethacin 50 mg capsule 50 mg PO TID 01/31/23 Previous Rx's Medication Instructions Recorded albuterol sulfate 90 mcg/actuation 2 puff inhalation Q6H PRN Wheezing 08/15/22 aerosol inhaler (ProAir HFA) 30 days #8.5 grams cetirizine 10 mg tablet 10 mg PO QAM 30 days #30 tabs 08/15/22 fluticasone propionate 50 2 spray intranasal DAILY 30 days 08/15/22 mcg/actuation nasal #15.8 mL spray,suspension sodium chloride 0.65 % nasal spray 2 spray intranasal Q4H PRN dry 08/15/22 aerosol (Jupiter Saline) nasal passages 30 days #50 mL cyclobenzaprine 10 mg tablet 10 mg PO BEDTIME PRN muscle spasm 03/06/23 10 days #10 tabs naproxen 500 mg tablet 500 mg PO BID PRN pain 7 days #14 10/31/22 tabs tadalafil 10 mg tablet 10 mg PO DAILY PRN sexual activity 01/13/23 90 days #90 tabs peg 3350-electrolytes 236 240 ml PO Q10M 1 day #4,000 mL 01/31/23 gram-22.74 gram-6.74 gram-5.86 gram solution (Golytely) terazosin 5 mg capsule 5 mg PO BEDTIME 30 days #30 caps 02/10/23 mzkdpjpilm-posskwdzzeuzv-dxfvmklp 1 cap PO Q8H PRN pain #5 caps 03/04/23 50 mg-300 mg-40 mg capsule (Fioricet) Allergies Allergy/AdvReac Type Severity Reaction Status Date / Time amoxicillin [AMOXICILLIN] Allergy Severe ANAPHYLAXIS Verified 01/31/23 07:59 Penicillins Allergy Severe UNKNOWN Verified 01/31/23 07:59 REACTION-CHILDHOOD doxycycline [From VIBRAMYCIN] AdvReac Mild DIARRHEA Verified 01/31/23 07:59 Clindamycin HCl Allergy Severe Anaphylaxis Uncoded 01/31/23 07:59 Review of Systems Review of Systems: Yes all other systems are reviewed and are negative Constitutional: Constitutional: Reports no additional constitutional complaints, Denies body ache(s), Denies chills, Denies fever(s), Reports headache(s) and Denies weakness Eyes: Eyes: Reports no additional eye complaints and Denies change in vision ENT: Reports system reviewed and no additional complaints, except as documented, Denies dizziness, Reports headache(s), Denies nasal congestion, Denies nasal discharge and Denies neck pain Cardiovascular: Cardiovascular: Reports no additional cardiovascular complaints, Denies chest pain, Denies leg edema and Denies dyspnea Respiratory: Respiratory: Reports no additional respiratory complaints, Denies cough and Denies dyspnea Gastrointestinal: Gastrointestinal: Reports no additional gastrointestinal complaints, Denies abdominal pain, Denies diarrhea, Denies nausea and Denies vomiting Genitourinary: Genitourinary: Denies urinary incontinence Musculoskeletal: Musculoskeletal: Reports no additional musculoskeletal complaints, Denies back pain, Denies arthralgias, Denies joint swelling, Denies neck pain, Denies numbness and Denies tingling Integumentary/Breasts: Skin/Breast: Reports system reviewed and no additional complaints, except as docu and Denies rash Neurologic: Reports system reviewed and no additional complaints, except as documented, Denies Abnormal speech present, Denies dizziness, Reports headache(s), Denies numbness, Denies tingling and Denies weakness PMFSH Past Medical History Attestation statement: The following information was validated with the patient. Source: old records reviewed and nursing notes reviewed Medical History Asthma Diabetes HTN (hypertension) Nasal polyps Orchialgia Pulmonary nodules Weak urinary stream Surgical History H/O wrist surgery History of esophagogastroduodenoscopy (EGD) Hx of colonoscopy Family History Family History Father Diabetes Hypertension Mother Hypertension Hyperlipidemia Brother Hypertension Family/Other Kidney stones Prostate cancer Bladder cancer Renal cancer Social History Social History Alcohol intake: never Patient Tobacco Use Status: Former Tobacco user Quit Date: 1991 Tobacco use type: Cigarette Years Smoked: 30 years Advance Directives: No Advance Directives Information Provided: No Physical Exam Vital Signs: Vital Signs: Last Vital Signs Temp 97.3 F 03/04/23 14:05 Pulse 62 03/04/23 14:05 Resp 17 03/04/23 14:05 BP 150/79 H 03/04/23 14:05 Pulse Ox 97 03/04/23 14:05 O2 Del Method Room Air 03/04/23 14:05 BMI result Body Mass Index 30.7 Const: General: cooperative, healthy appearing, comfortable and no acute distress Orientation/consciousness: patient oriented x3 Limitations: no limitations HEENT: Head: Yes normal to inspection, No Meeks's sign, No raccoon eyes and No Temporal artery tenderness present Ears: hearing grossly normal bilaterally and TM's normal bilaterally General nose exam: Normal external nose present Face and sinus: Yes normal facial exam Mouth: Normal oral and palatal mucosa present Throat: Yes posterior oropharynx normal Eyes: General: appearance normal, both eyes and all related structures Pupils: Equal, round and reactive pupils present Neck: Neck: Yes normal visual inspection, Yes full ROM, Yes no lymphadenopathy and Yes no meningeal signs Chest: Chest palpation & inspection: normal inspection of the chest Resp: Effort & Inspection: normal respiratory effort Auscultation: clear to auscultation bilaterally Cardio: Rate: regular rate Rhythm: regular rhythm Peripheral pulses: Peripheral pulses 2+ throughout GI: Inspection: Yes normal to inspection Palpation (GI): Soft to palpation and nontender Auscultation: normal bowel sounds Back/Spine/Pelvis: Thoracic/Lumbar Spine: thoracic and lumbar spine normal to inspection Skin: General skin exam: no rashes or lesions noted Neuro: General: patient oriented x3, moves all extremities, no meningeal signs, no focal motor deficits and normal sensation to monofilament Cranial nerves: Yes CN's II-XII intact bilaterally, Yes Equal, round and reactive pupils present, Yes Bilaterally intact EOM present, Yes Nystagmus not present, Yes Normal facial strength present and Yes Midline tongue present Cognition (Neuro): normal cognition Speech: No Abnormal speech present Gait exam (Neuro): Normal gait present Motor exam (neuro): 5/5 motor strength present throughout Sensory Exam: Normal double simultaneous stimulation for sensation Extrem: General: Yes normal to inspection Course Course Course Narrative: CT head negative, Pain improved with fiorcet. Likely migraine. recommended patient f.u with pcp outpatient. Reviewed worrisome signs.symptoms with patient and when to seek additional care. Comfortable with plan for discharge home. Medications Administered Discontinued Medications Generic Name Dose Route Start Last Admin Trade Name Freq PRN Reason Stop Dose Admin Acetaminophen/Butalbital/Caffeine 1 tab 03/04/23 15:41 03/04/23 16:21 Butalb/Acetamin/Caff 50/325/40 Tablet PO 03/04/23 15:42 1 tab ONCE ONE Administration Medical Decision Making Medical Decision Making [facility] Narrative: 57 yo male here with intermittent frontal headache x months now constant x 1 week with no other associated symptoms. Normal neuro exam WIll check Ct head, provide analgesia Differential Diagnosis Differential Diagnoses: The differential diagnosis associated with the presentation includes No associated fevers, chills, neck pain/stiffness to suggest meningitis/encephalitis No termporal artery tenderness to suggest GCA No trauma, sudden onset to suggest SAH Not worsened with position changes to suggest pseudotumor cerebri Consider space occupying lesion d/t chronicity of pain and no previous eval Independent Interpretation I performed an independent interpretation of an: CT Scan Interpretation: I independently reviewed the Ct and agree with rad report Radiology Impression Discussion of test interpretation with radiology: I have reviewed the radiologist's reading. Radiologist Impression: [address] [address] [address] Scan Report Signed Patient: Bobby Velasco MR#: [id number] : 1965 Acct:[id number] Age/Sex: 57 / M ADM Date: 03/04/23 Loc: HO.ED Attending Dr: Ordering Physician: Anna Leo NP Date of Service: 03/04/23 Procedure(s): CT head/brain wo IV con Accession Number(s): [id number] cc: Anna Leo NP~ EXAMINATION: CT HEAD WITHOUT CONTRAST CLINICAL INFORMATION: Headache for months? COMPARISON: None available. TECHNIQUE: Contiguous axial imaging was performed from the skull base to vertex without intravenous administration of contrast. This CT examination was performed using dose optimization techniques as appropriate, variously including the following: *Automated exposure control *Adjustment of mA and/or kV according to patient size (this includes techniques or standardized protocols for targeted exams where dose is matched to indication/reason for exam; i.e. extremities or head) *Use of iterative reconstruction technique DLP: 831 mGy-cm FINDINGS: There is no acute intra-axial, extra-axial bleed, masses or midline shift. There is no acute infarction evolution. There is no edema. The lateral ventricles are symmetrical in size and configuration mild enlargement. The grimes to white matter differentiation is maintained normal. Bone windows reveal no calvarial abnormality. There is a small polyp or retention cyst bilateral maxillary sinuses slightly larger on the right side. Rest of the paranasal sinuses and mastoid air cells are well-aerated. ? CT/CT head/brain wo IV con IMPRESSION: No acute intracranial process seen ? Small polyp or retention cyst bilateral maxillary sinuses slightly larger on the right side. Discharge Plan Discharge Clinical Impression: Migraine Patient Disposition: Home, Self-Care Instructions: Migraine Headache (ED) Prescriptions: New deeibpkppa-aoyjgfigdrstz-yipj [Fioricet] 50-300-40 mg capsule 1 cap PO Q8H PRN (Reason: pain) Qty: 5 0RF No Action terazosin 5 mg capsule 5 mg PO BEDTIME 30 Days Qty: 30 1RF naproxen 500 mg tablet 500 mg PO BID PRN (Reason: pain) 7 Days Qty: 14 0RF cyclobenzaprine 10 mg tablet 10 mg PO BEDTIME PRN (Reason: muscle spasm) 10 Days Qty: 10 0RF aspirin 81 mg tablet,delayed release (DR/EC) 81 mg PO DAILY lisinopril 40 mg tablet 40 mg PO DAILY amlodipine 10 mg tablet 10 mg PO DAILY (DME) lancets [TRUEplus Lancets] 33 gauge misc See Rx Instructions Not Applicable TID Qty: 100 Rx Instructions: As directed (DME) FreeStyle Lite Strips Strip See Rx Instructions Not Applicable TID Qty: 10 Rx Instructions: As directed omeprazole 20 mg capsule,delayed release(DR/EC) 20 mg PO DAILY cetirizine 10 mg tablet 10 mg PO QAM 30 Days Qty: 30 10RF fluticasone propionate 50 mcg/actuation spray,suspension 2 spray intranasal DAILY 30 Days Qty: 15.8 11RF albuterol sulfate [ProAir HFA] 90 mcg/actuation HFA aerosol inhaler 2 puff inhalation Q6H PRN (Reason: Wheezing) 30 Days Qty: 8.5 11RF Jupiter Saline 0.65 % aerosol,spray 2 spray intranasal Q4H PRN (Reason: dry nasal passages) 30 Days Qty: 50 11RF meclizine 25 mg tablet 25 mg PO DAILY PRN (Reason: Vertigo) triamcinolone acetonide 0.1 % ointment topical tadalafil 10 mg tablet 10 mg PO DAILY PRN (Reason: sexual activity) 90 Days Qty: 90 0RF ciprofloxacin HCl 500 mg tablet 500 mg PO BID famotidine 40 mg tablet PO indomethacin 50 mg capsule 50 mg PO TID Rx Instructions: administer with food or milk peg 3350-electrolytes [Golytely] 236-22.74-6.74 -5.86 gram recon soln 240 ml PO Q10M 1 Days Qty: 4000 0RF Rx Instructions: until fecal effluent is clear; do not exceed a total volume of 2,000 mL Referrals: Ashley Frankel MD [Primary Care Provider] - 1 week
[2023-03-04 17:56] VITALS: BP 188/91; PULSE 56; RESP 16; O2SAT 98
== END 2023-03-04 18:13 | disposition home or self-care (01) ==
PROVIDERS: Emergency Provider Emergency Medicine; PCP Family Medicine
DX: G43.909 Migraine, unspecified, not intractable, without status migrainosus (principal); E11.9 Type 2 diabetes mellitus without complications; I10 Essential (primary) hypertension; E78.5 Hyperlipidemia, unspecified; Z79.82 Long term (current) use of aspirin; Z79.899 Other long term (current) drug therapy; Z87.891 Personal history of nicotine dependence
CPT/HCPCS: 70450; 99284

== ENCOUNTER 2023-03-16 10:05 | Outpatient (REF) | payer MEDICARE, MEDICAID, SELFPAY ==
[2023-03-16 18:09] LABS: Urine Cytology See Pathology rpt
== END 2023-03-16 10:06 | disposition home or self-care (01) ==
LOC: HO.LNP 10:05
PROVIDERS: Visit Provider Urology
DX: N40.1 Benign prostatic hyperplasia with lower urinary tract symptoms (principal); N13.8 Other obstructive and reflux uropathy; E11.69 Type 2 diabetes mellitus with other specified complication; N52.1 Erectile dysfunction due to diseases classified elsewhere
CPT/HCPCS: 51798; 88112; 99212

== ENCOUNTER 2023-03-16 10:05 | Outpatient (AMB) | payer MEDICARE, MEDICAID, SELFPAY ==
--- NOTE | 2023-03-16 10:09 | A.OFFVIS_ITS ---
Intake Intake Visit Reasons: 2m/PVR Intake Note: Patient is present for Follow Up Urology Medications: Terazosin,Tadalafil Blood Thinner: Aspirin PVR: 0ml's Training Director Required: No Accompanied by: Self / Same As Patient Allergies amoxicillin [AMOXICILLIN] Allergy (Severe, Verified 03/16/23 10:12) ANAPHYLAXIS Penicillins Allergy (Severe, Verified 03/16/23 10:12) UNKNOWN REACTION-CHILDHOOD doxycycline [From VIBRAMYCIN] Adverse Reaction (Mild, Verified 03/16/23 10:12) DIARRHEA Clindamycin HCl Allergy (Severe, Uncoded 03/16/23 10:12) Anaphylaxis HPI HPI Comments History of Present Illness Details Bobby is a very pleasant male. They are a patient of Dr Frankel. They are seen in the office today for the following urologic conditions. - lower urinary tract symptoms - erectile dysfunction Increase Cialis 10 mg daily Add terazosin 5 mg Six month follow-up Prescription placed Erectile dysfunction Progressive 09/19 trial daily Lower Urinary Tract Symptoms:? Current visit is for?further evaluation of, lower urinary tract symptoms, predominate obstructive symptoms ?- less nocturia.? Current treatment includes?medication, alpha jesus - tamsulosin 0.4 mg ? Symptoms include?09/16 , weak stream, straining, and are progressing ?10/17 improved stream Labs - 07/17 0.9 ? Associated conditions? CAD ?No ? CVA ?No ? diabetes ?Yes ? elevated PSA ?No ? erectile dysfunction ?Yes ? Treatment plan?trial daily tadalafil medications.? PFSH Medical History Asthma Diabetes HTN (hypertension) Nasal polyps Orchialgia Pulmonary nodules Weak urinary stream Surgical History H/O wrist surgery History of esophagogastroduodenoscopy (EGD) Hx of colonoscopy Family History Father Diabetes Hypertension Mother Hypertension Hyperlipidemia Brother Hypertension Family/Other Kidney stones Prostate cancer Bladder cancer Renal cancer Social History Alcohol intake: never Patient Tobacco Use Status: Former Tobacco user Quit Date: 1991 Tobacco use type: Cigarette Years Smoked: 30 years Review of Systems Const Denies chills and Denies fever(s) Card Reports no additional complaints and Denies syncope Resp Denies cough GI Denies abdominal pain and Denies heartburn Reports as per HPI and Denies change in libido Neuro Denies syncope Psych Denies change in libido Endo Denies change in libido Physical Exam Const General: cooperative, healthy appearing, comfortable and no acute distress Orientation/consciousness: patient oriented x3 HEENT Face and sinus: Yes normal facial exam Mouth: moist mucous membranes Neck Neck: Yes normal visual inspection, Yes full ROM and Yes trachea midline Chest Chest palpation & inspection: normal inspection of the chest Resp Effort & Inspection: normal respiratory effort, able to speak in complete sen tences and no respiratory distress GI Inspection: Yes normal to inspection Back/Spine/Pelvis Cervical Spine: normal cervical lordosis Thoracic/Lumbar Spine: thoracic and lumbar spine normal to inspection Skin General skin exam: no rashes or lesions noted Neuro General: patient oriented x3, gait normal, tone normal and moves all extremities Extrem General: Yes normal to inspection and Yes capillary refill normal Office Procedures Post Void Residual Post Residual Void Post Void Residual (PVR): 0 [id number] Void Residual by ultrasound Results AMB Urinalysis, Automated UA Leukoctes 0 Ernesto/uL Last Edit by Alee Felton on 03/16/23 10:23 UA Nitrite Last Edit by Alee Felton on 03/16/23 10:23 UA Urobilinogen 0.2 mg/dL Last Edit by Alee Felton on 03/16/23 10:23 UA Protein 15 mg/dL Last Edit by Alee Felton on 03/16/23 10:23 UA pH 6.0 Last Edit by Alee Felton on 03/16/23 10:23 UA Blood 10 Jose Angel/uL Last Edit by Alee Felton on 03/16/23 10:23 UA Specific [place] 1.025 Last Edit by Alee Felton on 03/16/23 10:23 UA Ketone Negative Last Edit by Alee Felton on 03/16/23 10:23 UA Bilirubin 0 mg/dL Last Edit by Alee Felton on 03/16/23 10:23 UA Glucose 0 mg/dL Last Edit by Alee Felton on 03/16/23 10:23 Results Reviewed Results Reviewed: Laboratory Last Values Urine pH (Auto) 6.0 03/16/23 10:19 Specific [place] (Auto) 1.025 03/16/23 10:19 Urine Protein (Auto) 15 mg/dL 03/16/23 10:19 Glucose (UA)(Auto) 0 mg/dL 03/16/23 10:19 Urine Ketones (Auto) Negative 03/16/23 10:19 Urine Blood (Auto) 10 Jose Angel/uL 03/16/23 10:19 Urine Bilirubin (Auto) 0 mg/dL 03/16/23 10:19 Urine Urobilinogen (Auto) 0.2 mg/dL 03/16/23 10:19 Leukocyte Esterase (Auto) 0 Ernesto/uL 03/16/23 10:19 Assessment & Plan Assessment & Plan (1) BPH w urinary obs/LUTS: Code(s): N40.1 - Benign prostatic hyperplasia with lower urinary tract symptoms; N13.8 - Other obstructive and reflux uropathy (2) Erectile dysfunction associated with type 2 diabetes mellitus: Code(s): E11.69 - Type 2 diabetes mellitus with other specified complication; N52.1 - Erectile dysfunction due to diseases classified elsewhere Plan Six month follow-up Orders: Orders Urine Cytology Today N13.8 - Other obstructive and reflux uropathy, N40.1 - Benign prostatic hyperplasia with lower urinary tract symptoms Prostate Specific Antigen 6 Months N13.8 - Other obstructive and reflux uropathy, N40.1 - Benign prostatic hyperplasia with lower urinary tract symptoms AMB Urinalysis Automated Today Z13.9 - Encounter for screening, unspecified AMB Post Void Residual by ultrasound Today N13.8 - Other obstructive and reflux uropathy, N40.1 - Benign prostatic hyperplasia with lower urinary tract symptoms Medications: New tadalafil 10 mg PO DAILY 90 tabs 0RF sexual activity 90 days E11.69 - Type 2 diabetes mellitus with other specified complication, N52.1 - Erectile dysfunction due to diseases classified elsewhere Patient Instructions: Imaging studies, laboratory and physical exam results were discussed and reviewed in detail. No major barriers to patient understanding were identified. An opportunity to ask questions regarding the treatment plan was provided. All q uestions were answered. The patient expressed understanding and agreement with the above treatment plan. The patient is aware they should contact our office by phone for worsening of their current condition or the appearance of new urologic symptoms. Compliance is encouraged with any medications and followup testing that is ordered. It is a privilege to participate in the urologic care of your patient. If you have any questions or concerns regarding treatment for the above conditions, or other urologic issues, please do not hesitate to contact me. The office telephone contact is [phone]. This note is constructed using voice recognition software. While every effort has been made to ensure accuracy through operator errors may have been included. Yours sincerely, Dr Kishore Dorsey MD, [facility] - Urology Providers of Expert, Compassionate Care for the Genitourinary System Coding Level of Care Code Est Pt Level 4 (59835) Diagnoses BPH w urinary obs/LUTS N40.1; N13.8 Erectile dysfunction associated with type 2 diabetes mellitus E11.69; N52.1 CPT Codes Post Residual Void - PVR CPT Code: 68913-Xwks Void Residual by ultrasound ([id number])
== END 2023-03-16 11:08 | disposition home or self-care (01) ==
PROVIDERS: Visit Provider Urology
DX: N40.1 Benign prostatic hyperplasia with lower urinary tract symptoms (principal); N13.8 Other obstructive and reflux uropathy; E11.69 Type 2 diabetes mellitus with other specified complication; N52.1 Erectile dysfunction due to diseases classified elsewhere
CPT/HCPCS: 99214

== ENCOUNTER 2023-04-06 11:34 | Day surgery (SDC) | payer MEDICARE, MEDICAID, SELFPAY ==
--- NOTE | 2023-04-05 09:09 | P.CONAN_ITS ---
Documented by User: Danna Zamudio NP 04/05/23 09:10 HPI - Anesthesia Eval Consult details Narrative: 57yo M for Colonoscopy [facility] Active Problems Active Problems: All Active Problems (Updated 03/05/23 @ 00:13 by Jose Donaldson) Pre-op examination (Acute) Palpitations (Acute) Hypertension (Acute) Leg pain (Acute) GERD (gastroesophageal reflux disease) (Acute) Rectal bleeding (Acute) BPH w urinary obs/LUTS (Acute) Nocturia more than twice per night (Acute) Sinusitis (Acute) Erectile dysfunction associated with type 2 diabetes mellitus (Acute) History of Clostridioides difficile colitis (Acute) DISH (diffuse idiopathic skeletal hyperostosis) (Acute) High cholesterol (Acute) Hard of hearing (Acute) Asthma (Acute) Nasal polyps (Acute) Pulmonary nodules (Acute) Past Medical History Medical History Asthma Diabetes GERD (gastroesophageal reflux disease) HTN (hypertension) Nasal polyps Orchialgia Pulmonary nodules Weak urinary stream Family History Family History Father Diabetes Hypertension Mother Hypertension Hyperlipidemia Brother Hypertension Family/Other Kidney stones Prostate cancer Bladder cancer Renal cancer Surgical History Surgical History H/O wrist surgery History of esophagogastroduodenoscopy (EGD) Hx of colonoscopy Social History Social History Alcohol intake: never Patient Tobacco Use Status: Former Tobacco user Quit Date: 31 yrs ago Tobacco use type: Cigarette Years Smoked: 30 years Use of substances other than those prescribed or required for medical reasons: No Are you DNR?: No Advance Directives: No Advance Directives Information Provided: Yes Meds Allergies Allergy/AdvReac Type Severity Reaction Status Date / Time amoxicillin [AMOXICILLIN] Allergy Severe ANAPHYLAXIS Verified 03/16/23 10:12 Penicillins Allergy Severe UNKNOWN Verified 03/16/23 10:12 REACTION-CHILDHOOD doxycycline [From VIBRAMYCIN] AdvReac Mild DIARRHEA Verified 03/16/23 10:12 Clindamycin HCl Allergy Severe Anaphylaxis Uncoded 03/16/23 10:12 Home Medications Medication Instructions Recorded Confirmed Last Taken Type aspirin 81 mg tablet,delayed 81 mg PO DAILY 08/04/20 04/06/23 Unknown History release amlodipine 10 mg tablet 10 mg PO DAILY 06/22/21 04/06/23 Unknown History blood sugar diagnostic (FreeStyle #10 ea 06/22/21 04/06/23 Unknown History Lite Strips) lancets 33 gauge (TRUEplus Lancets) #100 ea 06/22/21 04/06/23 Unknown History lisinopril 40 mg tablet 40 mg PO DAILY 06/22/21 04/06/23 Unknown History meclizine 25 mg tablet 25 mg PO DAILY PRN Vertigo 02/17/22 04/06/23 Unknown History omeprazole 20 mg capsule,delayed 20 mg PO DAILY 08/15/22 04/06/23 Unknown History release tadalafil 10 mg tablet (Cialis) 10 mg PO DAILY PRN sexual activity 04/06/23 04/06/23 Unknown History Exam Exam Date and Time: April 05, 2023 0909 Pertinent Lab Results Pertinent Lab Results: Laboratory Tests 01/27/23 01/27/23 12:31 12:32 WBC 5.8 Hgb 13.4 L Hct 40.1 L Plt Count 218 Sodium 140 Potassium 4.0 Chloride 107 Carbon Dioxide 25 BUN 14 Creatinine 0.98 Narrative Narrative: EKG 09/2022 Vent. Rate : 058 BPM ? ? Atrial Rate : 058 BPM ?? P-R Int : 150 ms? QRS Dur : 090 ms ? ? QT Int : 408 ms ? ? ? P-R-T Axes : 035 039 032 degrees ?? QTc Int : 400 ms ? Sinus bradycardia Otherwise normal ECG When compared with ECG of 14-MAY-2022 15:45, No significant change was found ? Assessment and Plan Assessment Anesthesia Assessment: Chart Reviewed Documented by User: Mandi Brooke MD 04/06/23 12:22 PMFSH Past Medical History Medical History Asthma Diabetes GERD (gastroesophageal reflux disease) HTN (hypertension) Nasal polyps Orchialgia Pulmonary nodules Weak urinary stream Family History Family History Father Diabetes Hypertension Mother Hypertension Hyperlipidemia Brother Hypertension Family/Other Kidney stones Prostate cancer Bladder cancer Renal cancer Family history of problems with anesthesia: No Surgical History Surgical History H/O wrist surgery History of esophagogastroduodenoscopy (EGD) Hx of colonoscopy History of Problems with Anesthesia: Yes Social History Social History Alcohol intake: never Patient Tobacco Use Status: Former Tobacco user Quit Date: 31 yrs ago Tobacco use type: Cigarette Years Smoked: 30 years Use of substances other than those prescribed or required for medical reasons: No Are you DNR?: No Advance Directives: No Advance Directives Information Provided: Yes Meds Allergies Allergy/AdvReac Type Severity Reaction Status Date / Time amoxicillin [AMOXICILLIN] Allergy Severe ANAPHYLAXIS Verified 03/16/23 10:12 Penicillins Allergy Severe UNKNOWN Verified 03/16/23 10:12 REACTION-CHILDHOOD doxycycline [From VIBRAMYCIN] AdvReac Mild DIARRHEA Verified 03/16/23 10:12 Clindamycin HCl Allergy Severe Anaphylaxis Uncoded 03/16/23 10:12 Home Medications Medication Instructions Recorded Confirmed Last Taken Type aspirin 81 mg tablet,delayed 81 mg PO DAILY 08/04/20 04/06/23 Unknown History release amlodipine 10 mg tablet 10 mg PO DAILY 06/22/21 04/06/23 Unknown History blood sugar diagnostic (FreeStyle #10 ea 06/22/21 04/06/23 Unknown History Lite Strips) lancets 33 gauge (TRUEplus Lancets) #100 ea 06/22/21 04/06/23 Unknown History lisinopril 40 mg tablet 40 mg PO DAILY 06/22/21 04/06/23 Unknown History meclizine 25 mg tablet 25 mg PO DAILY PRN Vertigo 02/17/22 04/06/23 Unknown History omeprazole 20 mg capsule,delayed 20 mg PO DAILY 08/15/22 04/06/23 Unknown History release tadalafil 10 mg tablet (Cialis) 10 mg PO DAILY PRN sexual activity 04/06/23 04/06/23 Unknown History Exam Airway Mallampati Class: II TM Dist: >3cm Partial: Lower Heart: rrr Lungs: cta Assessment and Plan Assessment Anesthesia Assessment: Anesthesia Plan Discussed Final Anesthetic Review Family History of Problems with Anesthesia: No History of Problems with Anesthesia: Yes ASA Class: II Final Preanesthetic Review: No Changes in Pt Med Stat, Meds/Allgs Chart Reviewed, Consent Obtained/Reviewed and Anes Risks/Benef Reviewed Patient Risk: Low Procedure Risk: Low Anesthetic Plan Anesthetic Plan: MAC: Disposition: Standard PACU
[2023-04-06 12:00] VITALS: BMI 29.6
[2023-04-06 12:20] VITALS: BP 181/94; PULSE 88; RESP 16; TEMP 36.6; O2SAT 98
[2023-04-06] MEDS: Lactated Ringers 1,000 ML 100 ML IVCONT (12:22)
--- NOTE | 2023-04-06 12:41 | MHC.SHP ---
Pre-Procedural Eval Section A Date of Service: 04/06/23 Section B Chief Complaint: screening Details of Present Illness: PMH: Asthma Diabetes HTN (hypertension) Nasal polyps Orchialgia Pulmonary nodules Weak urinary stream Surgical History: H/O wrist surgery History of esophagogastroduodenoscopy (EGD) Hx of colonoscopy Allergies: Allergies Allergy/AdvReac Type Severity Reaction Status Date / Time amoxicillin [AMOXICILLIN] Allergy Severe ANAPHYLAXIS Verified 03/16/23 10:12 Penicillins Allergy Severe UNKNOWN Verified 03/16/23 10:12 REACTION-CHILDHOOD doxycycline [From VIBRAMYCIN] AdvReac Mild DIARRHEA Verified 03/16/23 10:12 Clindamycin HCl Allergy Severe Anaphylaxis Uncoded 03/16/23 10:12 Review of Systems Review of Systems Comment: Ten point ROS negative Exam Exam Comment: Gen appear: No acute distress HEENT: no icterus Chest: No overt resp distress Abd: soft, nontender, nondistended Psych: Stable affect, answering questions appropriately Neuro: A/Ox3 noted to move all extremities spontaneously Ext: no peripheral edema Plan I have reviewed the history and physical and performed a pertinent physical examination on my patient. No changes have occurred unless specified. Time Spent With Patient Time: Total time managing care of this patient today ____ minutes.
--- NOTE | 2023-04-06 12:50 | P.OP_ITS ---
Operative Note Operative Note Date of Service: 04/06/23 Narrative: Procedure: Colonoscopy Indication: Screening Endoscopist: Laurie Ennis MD Anesthesia Provider: Dr Na Negron Anesthesia type: MAC Instrument: Olympus [id number]-[id number] Consent: Indication, risks vs benefits, and alternatives were discussed with the patient who gave written informed consent to proceed. EKG, pulse, pulse oximetry and blood pressure were monitored throughout the procedure. Please see anesthesia flowsheet. Procedure: The patient was brought to the procedure room and placed in the left lateral decubitus position. IV medications were administered by the anesthesia provider in attendance. A digital rectal exam was performed which was normal. A distal attachment cap was affixed to the tip of the scope and the colonoscope was then inserted through the anus and advanced through the colon to the cecum at 85 cm. Mucosa was carefully examined under high definition white light as the instrument was slowly withdrawn in a retrograde panoramic fashion. Retroflexion was performed in rectum. The procedure was not difficult. There were no immediate obvious complications. The quality of the prep was BBPS: 3+2+3 = adequate Withdrawal time 12 minutes. Limitations: No limitations. Findings: Mucosa: Normal to cecum. Protruding lesions: * Medium internal hemorrhoids without stigmata of recent bleeding. Excavated lesions: * Scattered diverticulosis of sigmoid colon. Impression: 1. Normal colon mucosa 2. Diverticulosis 3. Internal hemorrhoids Recommendations: - Repeat colonoscopy in 10 years for asymptomatic colon cancer screening.
[2023-04-06 13:27] VITALS: BP 133/70; PULSE 68; RESP 16; TEMP 36.1; O2SAT 96
[2023-04-06 13:42] VITALS: BP 105/64; PULSE 74; RESP 15; O2SAT 96
[2023-04-06 13:57] VITALS: BP 119/70; PULSE 50; RESP 16; TEMP 36.1; O2SAT 98
[2023-04-06 14:12] VITALS: BP 144/79; PULSE 55; RESP 16; TEMP 36.1; O2SAT 98
[2023-04-06 14:27] VITALS: BP 158/86; PULSE 71; RESP 16; TEMP 36.1; O2SAT 98
== END 2023-04-06 14:54 | disposition home or self-care (01) ==
PROVIDERS: PCP Family Medicine; Visit Provider Internal Medicine
PROC: 0DJD8ZZ Inspection of Lower Intestinal Tract, Via Natural or Artificial Opening Endoscopic (ICD-10-PCS; CPT 45378; principal; 2023-04-06 13:20)
DX: Z12.11 Encounter for screening for malignant neoplasm of colon (principal); K57.30 Diverticulosis of large intestine without perforation or abscess without bleeding; K64.8 Other hemorrhoids; I10 Essential (primary) hypertension; J45.909 Unspecified asthma, uncomplicated; E11.9 Type 2 diabetes mellitus without complications; Z79.51 Long term (current) use of inhaled steroids; Z79.82 Long term (current) use of aspirin; Z79.899 Other long term (current) drug therapy; Z88.0 Allergy status to penicillin; Z88.1 Allergy status to other antibiotic agents; Z87.891 Personal history of nicotine dependence
CPT/HCPCS: 45378; J2250

== ENCOUNTER → 2023-04-06 11:34 | Outpatient (BNV) | payer MEDICARE, MEDICAID, SELFPAY | PROVIDERS: PCP Family Medicine; Visit Provider Internal Medicine | DX: Z12.11 Encounter for screening for malignant neoplasm of colon (principal) | CPT/HCPCS: G0121 ==

== ENCOUNTER 2023-04-07 08:10 | Outpatient (AMB) | payer MEDICARE, MEDICAID, SELFPAY ==
[2023-04-07 08:19] VITALS: BP 140/80; PULSE 59; BMI 29.8
--- NOTE | 2023-04-07 08:19 | A.OFFVIS_ITS ---
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 Allergies amoxicillin [AMOXICILLIN] Allergy (Severe, Verified 04/07/23 08:23) ANAPHYLAXIS Penicillins Allergy (Severe, Verified 04/07/23 08:23) UNKNOWN REACTION-CHILDHOOD doxycycline [From VIBRAMYCIN] Adverse Reaction (Mild, Verified 04/07/23 08:23) DIARRHEA Clindamycin HCl Allergy (Severe, Uncoded 03/16/23 10:12) Anaphylaxis Medication List - Last Reconciled 04/07/23 by REINA Draper albuterol sulfate 90 mcg/actuation (ProAir HFA) 2 puffs inhalation Q6H PRN 30 days amlodipine 10 mg PO DAILY aspirin 81 mg PO DAILY blood sugar diagnostic (FreeStyle Lite Strips) As directed [id number] 50-300-40 mg (Fioricet) 1 cap PO Q8H PRN cetirizine 10 mg PO QAM 30 days cyclobenzaprine 10 mg PO BEDTIME PRN 10 days famotidine 40 mg PO DAILY PRN fluticasone propionate 50 mcg/actuation 2 sprays intranasal DAILY 30 days lancets (TRUEplus Lancets) As directed lisinopril 40 mg PO DAILY meclizine 25 mg PO DAILY PRN omeprazole 20 mg PO DAILY sodium chloride 0.65% (Thurmond Saline) 2 sprays intranasal Q4H PRN 30 days tadalafil (Cialis) 10 mg PO DAILY PRN terazosin 5 mg PO BEDTIME 90 days HPI Chest pain HPI Details Bobby is a 57-year-old male past medical history of hypertension, hyperlipidemia, diabetes, heart palpitations which improved with caffeine decrease who now presents with report of chest discomfort. His last prior visit to our office was 11/12/2020. Today he reports that he is starting to exercise more and trying to get into shape. He is concerned about his heart as he has been getting a pain along the right sternal border. It can be brought on by activity and has occurred at rest. He describes it as sharp and lasting a few minutes before resolving. He says this is a new or symptom for him in the last few months. He will get occasional heart palpitations but not bothersome once like in the past. He will get some mild shortness of breath with exertion but feels this may be related to deconditioning. No PND, orthopnea or edema. No presyncope, syncope, falls. He is compliant with medications. [facility] Medical History Asthma Diabetes GERD (gastroesophageal reflux disease) HTN (hypertension) Nasal polyps Orchialgia Pulmonary nodules Weak urinary stream Surgical History H/O wrist surgery History of esophagogastroduodenoscopy (EGD) Hx of colonoscopy Family History Father Diabetes Hypertension Mother Hypertension Hyperlipidemia Brother Hypertension Family/Other Kidney stones Prostate cancer Bladder cancer Renal cancer Social History Alcohol intake: never Patient Tobacco Use Status: Former Tobacco user Quit Date: 31 yrs ago Tobacco use type: Cigarette Years Smoked: 30 years Review of Systems Const All systems reviewed & are unremarkable except as noted in HPI and below ENT Reports dizziness Card Reports chest pain, Denies chest pain at rest, Denies chest pain with activity, Denies rapid heart rate, Denies pedal edema, Denies edema, Denies leg edema, Denies lightheadedness, Denies palpitations, Denies dyspnea, Reports dyspnea on exertion and Denies orthopnea Resp Denies cough, Denies dyspnea and Reports dyspnea on exertion GI Denies hematochezia and Denies change in stool character Musc Denies abnormal gait, Reports limited range of motion, Reports muscle cramps, Denies muscle weakness, Denies numbness, Denies radiating pain into limb, Denies stiffness and Denies tingling Neuro Denies abnormal gait, Reports dizziness, Denies numbness and Denies tingling Endo Denies palpitations Physical Exam Vital Signs: Last Vital Signs Pulse 59 04/07/23 08:19 BP 140/80 H 04/07/23 08:19 BMI result Body Mass Index 29.8 Const General: cooperative, healthy appearing, comfortable and no acute distress Orientation/consciousness: patient oriented x3 Neck Neck: Yes normal visual inspection Resp Effort & Inspection: normal respiratory effort Auscultation: clear to auscultation bilaterally, no crackles, no rales, no rhonchi and no wheezes Cardio Jugular venous distension: no JVD Rate: regular rate Rhythm: regular rhythm Heart sounds: S1 normal heart sound present, S2 normal heart sound present, no murmurs and no rubs Neuro General: patient oriented x3 Extrem General: Yes normal to inspection and No no pedal edema Psych Appearance: grossly normal Mental Status: mental status grossly normal Speech and movement: Normal speech and movement present Office Procedures EKG Details: Today, read by me, sinus bradycardia, no acute ST or T-wave abnormalities, rate 59, QTC 415 millisecond [id number], Complete Assessment & Plan Assessment & Plan (1) Chest discomfort: Code(s): R07.89 - Other chest pain Plan: Report of a localized discomfort, sharp in the right sternal border occurring at rest and with activity. Somewhat atypical for angina however he has multiple cardiac risk factors including hypertension, hyperlipidemia and diabetes. No prior cardiac history. EKG done today showing sinus bradycardia with no acute ST or T-wave abnormalities, rate 59. Will check an echocardiogram to assess for structural heart disease. Will check exercise stress test to evaluate for symptoms and ischemia. Signs and symptoms of angina reviewed with him. Emergency care if ever needed for symptoms. Cardiology follow-up when test results are available. (2) Palpitations: Code(s): R00.2 - Palpitations Plan: Prior reports of heart palpitations with evaluation in 2019. Holter monitor done at that time showed sinus rhythm with rare ectopy, average heart rate 73. His palpitations improved with a decrease in caffeine intake. At this time he denies any concerning heart palpitations. (3) Hypertension: Code(s): I10 - Essential (primary) hypertension Plan: Mild elevation at the start of this visit. He reports compliance with his amlodipine and lisinopril. Will recheck blood pressure at and during stress test. Orders: Orders CA echo transthoracic complete Today R07.89 - Other chest pain CA stress test Today R00.2 - Palpitations, R07.89 - Other chest pain Medications: Discontinued tadalafil 10 mg PO DAILY 90 days PRN 90 tabs 0RF sexual activity N13.8 - Other obstructive and reflux uropathy, N40.1 - Benign prostatic hyperplasia with lower urinary tract symptoms, N52.9 - Male erectile dysfunction, unspecified Coding Level of Care Code Est Pt Level 4 (26216) Diagnoses Chest discomfort R07.89 Palpitations R00.2 Hypertension I10 CPT Codes EKG - CPT: 43984-[id number], Complete ([id number]) Time Spent (min) 24 Comment Chart review, documentation, interview, assess
== END 2023-04-07 08:48 | disposition home or self-care (01) ==
PROVIDERS: PCP Family Medicine; Referring Provider Family Medicine; Visit Provider Nurse Practitioner Family
DX: R07.89 Other chest pain (principal); R00.2 Palpitations; I10 Essential (primary) hypertension
CPT/HCPCS: 93010; 99214

== ENCOUNTER → 2023-04-07 08:10 | Outpatient (BNVA) | payer MEDICARE, MEDICAID, SELFPAY | PROVIDERS: PCP Family Medicine; Referring Provider Family Medicine; Visit Provider Nurse Practitioner Family | DX: R07.89 Other chest pain (principal); R00.2 Palpitations; I10 Essential (primary) hypertension; Z79.899 Other long term (current) drug therapy | CPT/HCPCS: 93005; 99212 ==

== ENCOUNTER → 2023-06-08 07:49 | Outpatient (REF) | payer MEDICARE, MEDICAID, SELFPAY ==
--- NOTE | 2023-06-08 07:54 | CA_ITS ---
Transthoracic Echocardiogram Patient (Last, First, Middle): Bobby Velasco, Gender: Male Date of : 1965 Age: 57 Procedure Date: 06/08/2023 Procedure Type: Transthoracic Echocardiogram Location: OP Height: 172.72 cm Weight: 90.72 kg BSA: 2.04 m2 Heart Rate: 54 bpm BP: 180 / 90 mmHg Crop Roller: MELI Referring MD: Riya Fulton DIRECTOR [facility] Symptoms: R07.89 - Other chest pain Study Quality: Adequate/w Contrast ECG Rhythm: Bradycardia Conclusions: - The left ventricular systolic function is normal. The calculated ejection fraction is 70% by biplane method. - There is mildly increased left ventricular wall thickness. - There is moderate septal and moderate basal asymmetric hypertrophy. - No obvious valvular pathology seen on this study. Findings Procedure Information Contrast agent, definity, is being given per protocol without apparent complications. Left Ventricle Normal left ventricular cavity size. There is mildly increased left ventricular wall thickness. The left ventricular systolic function is normal. The calculated ejection fraction is 70% by biplane method. There is no evidence of regional wall motion abnormalities. Diastolic function is normal for age. There is moderate septal and moderate basal asymmetric hypertrophy. Right Ventricle Normal right ventricular cavity size and systolic function. Atria Both atria are normal in size. Aortic Valve There is a normal trileaflet aortic valve. There is no aortic valve stenosis. There is no aortic valve regurgitation. Mitral Valve The mitral valve appears normal. There is trace mitral valve regurgitation. There is no mitral valve stenosis. Pulmonic Valve The pulmonic valve is likely normal. Tricuspid Valve Normal tricuspid valve structure. There is trace tricuspid valve regurgitation. There is no evidence of pulmonary hypertension. Great Vessels The asc aorta is normal in size. Venous The inferior vena cava is normal in size and collapses less than 50% with inspiration. Pericardium/Pleural There is no evidence of pericardial effusion. Prior Study Comparison No significant change compared to prior study dated: 02/04/2020. Recommendations, Care & Conclusions No obvious valvular pathology seen on this study. Measurements 2D Linear Measurements IVSd: 1.40 0.6-0.9/0.6-1.0 cm LVIDd: 3.80 3.9-5.3/4.2-5.9 cm LVIDd Index: 1.86 2.4-3.2/2.2-3.1 cm/m2 LVIDs: 1.90 2.0-3.6 cm LVPWd: 1.20 0.7-1.1 cm LA Diam: 4.10 2.7-3.8/3.0-4.0 cm LAIDs Index: 2.01 1.5-2.3 cm/m2 LV Mass: 215.56 67-162/88-224 g LV Mass Index: 105.67 43-95/49-115 g/m2 LVOT Diam: 2.00 3.0+(-)1.3 cm 2D Systolic Function EF 4C: 72.30 >55% EF 2C: 65.40 >55% EF BiP: 69.60 >55% Mitral Valve MV Pk E: 0.89 MV PK A: 0.82 MV Decel Time: 186.00 E/A: 1.10 E'Lateral: 9.46 E'Medial: 7.72 E/E' Med: 11.50 E/E' Lat: 9.40 PHT: 54.00 MVA PHT: 4.07 Decel Wagoner: 4.77 Aortic Valve AoV Pk Peter: 1.57 AoV Mn Peter: 1.11 AoV VTI: 0.38 AoV Pk Grad: 10.00 Aov Mn Grad: 6.00 TRUDY Cont.VTI: 2.18 LVOT LVOT Pk Peter: 1.12 LVOT Mn Peter: 0.74 LVOT VTI: 0.26 LVOT Pk Grad: 5.00 LVOT Mn Grad: 2.00 LVOT Diam: 2.00 LVOT Area: 3.14 Diastolic Function MV Pk E: 0.89 MV Pk A: 0.82 E/A: 1.10 E'Medial: 7.72 E/E' Med: 11.50 E' Laterial: 9.46 E/E' Lat: 9.40 Right Ventricle TAPSE (mm): 30.00 TVS' Peter: 13.40 Tricuspid Valve TR Pk Peter: 2.42 TR Pk Grad: 23.00 RA Press: 8.00 RVSP: 31.00 Great Vessels Aorta Sinus of Valsalva: 3.50 2.0-3.5 cm Ao Asc: 3.00 2.1-3.4 cm Pulmonary Valve PV Pk Peter: 1.34 Peak PV Grad: 7.00 Updated in Other Vendor System with Status of Final Lobo Snider MD electronically signed on 06/08/2023 3:20:24 PM with status of Final
--- NOTE | 2023-06-08 10:47 | CA_ITS ---
Acquisition Time: 2023-06-08 09:26:44 Total Exercise Time: 00:07:07 Test Indications: CP Medications: SEE H Protocol: KARYN Max HR: 137 BPM 84% of Pred: 162 BPM Max BP: 206/098 mmHG Max Work Load: 7.7 METS Exercise stress test exercise 7 min and 7 sec of Karyn protocol stage 3 manually increased to 2.9mph and 12.5% grade achieving 84%, with 7/10 chest stabbing in mid chest, no SOB, with PVC, ventricular cuplet, with normotensive response to exercise with resting HTN, without EKG changes. Chest pain and reported dizziness resolved with rest. Test reviewed with Dr. Saunders. Referred By: Riya Fulton Overread By: Shae Patel
== END ==
LOC: HO.CARD 07:49
PROVIDERS: PCP Family Medicine; Visit Provider Nurse Practitioner Family
DX: R07.89 Other chest pain (principal); R00.2 Palpitations
CPT/HCPCS: 93017; 93306; Q9957

== ENCOUNTER → 2023-06-08 07:54 | Outpatient (BNV) | payer MEDICARE, MEDICAID, SELFPAY | PROVIDERS: PCP Family Medicine; Visit Provider Internal Medicine | DX: R07.2 Precordial pain (principal) | CPT/HCPCS: 93016; 93018; 93306 ==

== ENCOUNTER 2023-06-09 09:40 | Outpatient (REF) | payer MEDICARE, MEDICAID, SELFPAY ==
[2023-06-09 10:35] LABS: MANUAL DIFF FLAG NO
[2023-06-09 11:22] LABS: Basophils Percent Auto 0.6 % (0-2); Eosinophils Absolute Auto 0.1 X10*3/uL (0.0-0.4); Eosinophils Percent Auto 0.9 % (0-4); Hematocrit 42.6 % (42.0-52.0); Imm Gran Abs Auto 0.02 X10*3/uL (0.00-0.03); Imm Gran Pct Auto 0.4 % (0.0-0.4); Lymphocytes Absolute Auto 1.6 X10*3/uL (1.2-4.9); Lymphocytes Percent Auto 28.7 % (20-40); Mean Corpuscular HGB Conc 32.9 g/dl (31.0-36.0); Mean Corpuscular Volume 91.4 fL (80.0-98.0); Mean Platelet Volume 10.9 fL (9.4-12.4); Monocytes Absolute Auto 0.5 X10*3/uL (0.1-1.2); Monocytes Percent Auto 9.7 % (2-11); Neutrophils Absolute Auto 3.3 x10*3/uL (2.0-8.3); Neutrophils Percent Auto 59.7 % (45-73); Platelet Count 265 X10*3/uL (160-400); Red Blood Count 4.66 X10*6/uL (4.60-5.80); White Blood Count 5.4 X10*3/uL (4.8-10.8)
[2023-06-09 12:06] LABS: Erythrocyte Sedimentation Rate 4 MM/HR (0-15)
[2023-06-10 11:23] LABS: Immunoglobulin E 22 kU/L (<OR=114)
[2023-06-16 15:47] LABS: Asperg fumigatus Precip Abs NEGATIVE (NEGATIVE); Micropoly faeni Abs NEGATIVE (NEGATIVE); Pigeon serum Abs NEGATIVE (NEGATIVE); Saccharo pora viridis Abs NEGATIVE (NEGATIVE); Thermo candidus Abs NEGATIVE (NEGATIVE); Thermoa vulgaris #1 NEGATIVE (NEGATIVE)
== END 2023-06-09 09:41 | disposition home or self-care (01) ==
LOC: HO.LAB 09:40
PROVIDERS: PCP Family Medicine; Visit Provider Hospitalist
DX: J33.9 Nasal polyp, unspecified (principal); R91.8 Other nonspecific abnormal finding of lung field; J45.40 Moderate persistent asthma, uncomplicated; Z91.09 Other allergy status, other than to drugs and biological substances
CPT/HCPCS: 36415; 82785; 85025; 85652; 86003; 86331; 86606; 86609; 99212

== ENCOUNTER 2023-06-09 09:40 | Outpatient (AMB) | payer MEDICARE, MEDICAID, SELFPAY ==
--- NOTE | 2023-06-09 09:51 | MHC.OFFVIS ---
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 He has background history of atypical chest pain for which he underwent stress testing in the past with was normal. He also had echocardiography which did not show any significant pathology. He is presenting now for follow-up because he has been experiencing palpitations. These happen almost every night. When he is lying on his side he feels his heart is racing and he can feel the heartbeat in his ear. Sometimes it is fast. He is worried about AFib. He has no significant chest pains at this point. He did not take his blood pressure medications today. His blood pressure is elevated today. 09/25/2020 the patient has a telephone visit. He has been complaining of further nasal congestion and sinus tenderness. Moderate severity. Significant cough postnasal drip related. Has a hard time sleeping at nighttime because the discomfort. He did undergo a CT scan of the chest that was personally by me. Appears to have stable pulmonary nodules. Will continue monitoring the nodules on a yearly basis for couple years to ensure stability. Patient also needs to be followed up by ENT due to the fact that he has nasal polyposis and his nasal issue will continue to be recurrent and progressive. 08/02/2021 the patient is here for a pulmonary sick visit. Apparently he was evaluated about a week ago with nasal congestion and sinus discomfort. He was placed on azithromycin. he did have partial improvement of the symptoms. But still having sinus discomfort and fullness and discomfort. The drainage has decreased in amount. Patient does have significant swelling of the nasal passages. In the meantime he also underwent a CT scan of the chest around the same time because of the pulmonary nodules. At least I could review the images with him and reassured him that he does not have any active lower respiratory infection. His pulmonary nodules are indeed stable which is reassuring. He will require CT scan in a year's time. We will treat him again for this subacute sinusitis with the hope of improving his symptoms. 08/15/2022 the patient is here for a pulmonary follow-up visit. The patient is doing well from a respiratory status. He does have a cough intermittently. Usually associated with a postnasal drip. Moderate severity. He does have allergy medicines and also nasal sprays but he has not been using it. His major issue is the neck pain and now shoulder discomfort. He does have significant osteoarthritis of the left shoulder. Has a hard time turning his neck. From a respiratory standpoint he does have a rescue inhaler but he does not use it. Typically his asthma is exacerbated by a he respiratory illness. Denies any significant allergies. He does have underlying pulmonary nodules. The patient did have a repeat CAT scan about a week ago which we personally reviewed in the office. The patient does have stable pulmonary nodules at this time. There subcentimeter in size and do not appear concerning. Therefore, since the pulmonary nodules have been stable now for 2 years no further imaging studies warranted. Will reassess in a year to see additional studies have required if he is having any ongoing symptoms. 06/09/2023 the patient is here for a pulmonary follow-up visit. He is complaining about worsening nasal congestion. Moderate severity. Has a hard time breathing through his nose and has a postnasal drip. He attributes this to his rugs in the apartment. Feels like they are causing him to have significant worsening sinusitis and rhinitis in addition to his asthma. He is asking for the rugs to be removed. At this point we can just request allergy testing and see if he is allergic to any dust mites or any mold that could be in better in the rugs. If he does have underlying allergies then be reasonable to request replaced on the rugs otherwise patient could just use the HEPA filter vacuum. The patient is doing well from the asthma standpoint. He has not had to use his rescue inhaler. Although does have significant sinusitis at this time so therefore will treat him for the sinusitis at this time. [facility] Medical History Asthma Diabetes GERD (gastroesophageal reflux disease) HTN (hypertension) Nasal polyps Orchialgia Pulmonary nodules Weak urinary stream Surgical History H/O wrist surgery History of esophagogastroduodenoscopy (EGD) Hx of colonoscopy Family History Father Diabetes Hypertension Mother Hypertension Hyperlipidemia Brother Hypertension Family/Other Kidney stones Prostate cancer Bladder cancer Renal cancer Social History Alcohol intake: never Patient Tobacco Use Status: Former Tobacco user Quit Date: 31 yrs ago Tobacco use type: Cigarette Years Smoked: 30 years Review of Systems Const Denies fatigue, Denies fever(s), Denies night sweats, Denies poor appetite and Denies weight loss ENT Reports Normal hearing present, Denies dental pain, Denies dysphagia, Denies hearing loss, Denies mouth pain, Reports nasal congestion, Reports nasal discharge, Reports nasal obstruction, Denies odynophagia, Reports sinus pain and Reports sinus pressure Card Reports no additional complaints, Denies dyspnea and Denies dyspnea on exertion Resp Denies chest congestion, Reports cough, Denies dyspnea, Denies dyspnea on exertion and Denies wheezing GI Denies abdominal pain, Denies melena, Denies bloating, Reports hematochezia, Denies constipation, Denies GI cramping, Denies dysphagia, Denies excessive flatus, Denies early satiety, Reports heartburn, Denies diarrhea, Denies nausea, Denies odynophagia, Denies vomiting and Denies hematemesis Skin/Breast Denies pruritus, Denies lesions, Denies rash and Denies jaundice Neuro Reports Normal hearing present and Denies Abnormal speech present Endo Denies fatigue Aller/Immun Denies wheezing Physical Exam Vital Signs: Last Vital Signs Pulse 65 06/09/23 09:52 BP 128/72 06/09/23 09:52 Pulse Ox 97 06/09/23 09:52 Oxygen Delivery Method Room Air 06/09/23 09:52 BMI result Body Mass Index 31.2 Const General: no acute distress and well developed HEENT Head: Yes normocephalic and Yes atraumatic General nose exam: Abnormal mucous membranes and turbinates present erythematous Eyes Pupils: Equal, round and reactive pupils present Neck Neck: Yes normal visual inspection and Yes no lymphadenopathy Chest Chest palpation & inspection: normal inspection of the chest Resp Effort & Inspection: normal respiratory effort and able to speak in complete sentences Auscultation: clear to auscultation bilaterally Cardio Rate: regular rate Rhythm: regular rhythm GI Palpation (GI): Soft to palpation Skin General skin exam: no rashes or lesions noted Neuro Cranial nerves: Yes Equal, round and reactive pupils present and Yes Normal hearing present Speech: No Abnormal speech present Extrem General: No clubbing, No cyanosis and No edema Psych Appearance: well kempt Attitude: cooperative Assessment & Plan Assessment & Plan (1) Nasal polyps: Code(s): J33.9 - Nasal polyp, unspecified (2) Pulmonary nodules: Code(s): R91.8 - Other nonspecific abnormal finding of lung field (3) Asthma: Comment: rescue inhaler only Code(s): J45.909 - Unspecified asthma, uncomplicated Qualifiers: Asthma complication type: uncomplicated Asthma persistence: persistent Asthma severity: moderate Qualified Code(s): J45.40 - Moderate persistent asthma, uncomplicated Plan WAI as needed Continue nasal therapy wtih flonase and nasal rinsing continue zyrtec Add singulair start prednisone taper start zpack Continue WAI as needed bloodwork/allergy testing He is requesting a letter to remove the rugs from his apartment. Explained to him that we will do some allergy testing and see if he does have ongoing allergies the need to be dealt with. F/U in 1 year Orders: Orders Rast Allergen 06/09/23 J33.9 - Nasal polyp, unspecified Complete Blood Count Auto Diff 06/09/23 J33.9 - Nasal polyp, unspecified Hypersensitive Pneumonitis Prf 06/09/23 J33.9 - Nasal polyp, unspecified, R91.8 - Other nonspecific abnormal finding of lung field Immunoglobulin E 06/09/23 J33.9 - Nasal polyp, unspecified Erythrocyte Sedimentation Rate 06/09/23 J33.9 - Nasal polyp, unspecified Medications: New prednisone PO daily; Take 2 tabs daily x 5 days, then 1 tablet daily x 5 days 10 days 15 tabs 0RF fluticasone propionate 50 mcg/actuation 2 sprays intranasal DAILY 30 days 15.8 mL 11RF J31.0 - Chronic rhinitis montelukast (Singulair) 10 mg PO BEDTIME 30 days 30 tabs 11RF J45.909 - Unspecified asthma, uncomplicated azithromycin 500 mg PO DAILY 5 days 5 tabs 0RF Coding Level of Care Code Est Pt Level 4 (23584) Diagnoses Nasal polyps J33.9 Pulmonary nodules R91.8 Moderate persistent asthma without complication J45.40 Asthma complication type: uncomplicated Asthma persistence: persistent Asthma severity: moderate Time Spent (min) 16
[2023-06-09 09:52] VITALS: BP 128/72; PULSE 65; O2SAT 97; BMI 31.2
== END 2023-06-09 10:08 | disposition home or self-care (01) ==
PROVIDERS: PCP Family Medicine; Visit Provider Hospitalist
DX: J33.9 Nasal polyp, unspecified (principal); R91.8 Other nonspecific abnormal finding of lung field; J45.40 Moderate persistent asthma, uncomplicated
CPT/HCPCS: 99214

== ENCOUNTER → 2023-06-21 09:09 | Outpatient (REF) | payer MEDICARE, MEDICAID, SELFPAY ==
--- NOTE | ~2023-06-21 | NM_ITS ---
Exercise Myocardial perfusion study Indication: Chest pain to evaluate for myocardial ischemia Technique: The patient was brought in for an exercise perfusion study on 06/21/2023. Patient performed exercise as per Evin protocol and was injected 30 mCi of sestamibi was given intravenously one target HR was achieved. Images were obtained using the SPECT gamma camera interlaced with the gating device. Images were obtained in supine position. Resting perfusion study was performed on 06/22/2023. Patient was administered 30 mCi of sestamibi intravenously at rest. Images were then obtained in supine position. Images obtained with and without CT attenuation. Total DLP 164 mGy-cm. Images were processed with the software and compared side to side in short axis, horizontal long axis and vertical long axis views. Findings: The stress perfusion study showed non attenuated images show normal uptake of radiotracer in all segments of LV myocardium. Attenuation corrected images show mildly reduced uptake in the distal septum and apex of the LV myocardium.. The gated study shows normal LV systolic function with calculated LVEF of 68%. LV cavity is normal in size. The gated study shows normal systolic wall thickening and contraction of all segments. There is no transient ischemic dilation. Resting study shows non attenuated images show no change in perfusion compared to stress perfusion study. Gating at rest reveals normal systolic wall motion with ejection fraction at 69%. The findings are consistent with normal myocardial perfusion. NM/NM cardiolite stress test Impression: 1. Normal myocardial perfusion 2. Gated LVEF is 68% 3. Transient ischemic dilatation not present EKG is nondiagnostic for ischemia Stress EKG is negative for ischemia
--- NOTE | 2023-06-21 09:12 | CA_ITS ---
Acquisition Time: 2023-06-21 09:25:16 Total Exercise Time: 00:05:08 Test Indications: CP Medications: SEE H Protocol: KARYN Max HR: 148 BPM 91% of Pred: 162 BPM Max BP: 220/110 mmHG Max Work Load: 7.0 METS Exercise stress test exercise 5 min 8 sec of Karyn protocol achieving 91% MPHR, with mild SOB, no chest discomfort, with resting PVCs, with hypertensive response to exercise, without EKG changes. BP returned to baseline with rest. Nuclear images pending. Test reviewed with Dr. Kruger. Referred By: Riya Fulton Overread By: Shae Patel
== END ==
LOC: HO.CARD 09:09
PROVIDERS: PCP Family Medicine; Visit Provider Nurse Practitioner Family
DX: R07.89 Other chest pain (principal); R94.39 Abnormal result of other cardiovascular function study
CPT/HCPCS: 78452; 93017; A9500

== ENCOUNTER → 2023-06-21 09:12 | Outpatient (BNV) | payer MEDICARE, MEDICAID, SELFPAY | PROVIDERS: PCP Family Medicine; Visit Provider Nurse Practitioner | DX: R07.89 Other chest pain (principal) | CPT/HCPCS: 78452; 93016; 93018 ==

== ENCOUNTER 2023-06-29 10:03 | Outpatient (REF) | payer MEDICARE, MEDICAID, SELFPAY ==
[2023-06-29 12:07] LABS: Alanine Aminotransferase 17 U/L (0-40); Alkaline Phosphatase 88 U/L (39-117); Anion Gap 8 (12-20); Aspartate Amino Transferase 20 U/L (5-37); Bilirubin Direct 0.4 mg/dL (0.0-0.5); Blood Urea Nitrogen 16 mg/dL (9-16); Calcium 9.4 mg/dL (8.4-10.2); Carbon Dioxide 29 mmol/L (22-29); Chloride 107 mmol/L (96-108); Cholesterol 183 mg/dL (<200); Estimated Glomerular Filt Rate > 60; Glucose Random 154 mg/dL (60-115); HDL Cholesterol 59 mg/dL (>40); LDL Cholesterol Calculated 111 mg/dL (<100); Potassium 3.8 mmol/L (3.3-5.1); Sodium 140 mmol/L (135-145); Total Protein 6.7 g/dL (6.5-8.0); Triglycerides 65 mg/dL (<150)
[2023-06-29 12:28] LABS: Creatinine Urine 116.53 mg/dL
== END 2023-06-29 10:04 | disposition home or self-care (01) ==
LOC: HO.HHCL 10:03
PROVIDERS: Visit Provider Family Medicine
DX: E11.9 Type 2 diabetes mellitus without complications (principal); E78.5 Hyperlipidemia, unspecified; I10 Essential (primary) hypertension
CPT/HCPCS: 36415; 80048; 80061; 80076; 82043; 82570

== ENCOUNTER 2023-06-30 08:06 | Outpatient (AMB) | payer MEDICARE, MEDICAID, SELFPAY ==
[2023-06-30 08:25] VITALS: BP 132/80; PULSE 76; BMI 29.6
--- NOTE | 2023-06-30 08:25 | MHC.OFFVIS ---
Intake Vital Signs 06/30/23 08:25 Height 5 ft 8 in Weight 194 lb 7.163 oz BMI 29.6 BP 132/80 Blood Pressure Location Rt brachial Position Sitting Pulse 76 Pulse Source Pulse Oximeter Intake Visit Reasons: f/u after testing Golf Course Manager Required: No Allergies amoxicillin [AMOXICILLIN] Allergy (Severe, Verified 06/30/23 08:28) ANAPHYLAXIS Penicillins Allergy (Severe, Verified 06/30/23 08:28) UNKNOWN REACTION-CHILDHOOD doxycycline [From VIBRAMYCIN] Adverse Reaction (Mild, Verified 06/30/23 08:28) DIARRHEA Clindamycin HCl Allergy (Severe, Uncoded 06/09/23 09:56) Anaphylaxis Medication List - Last Reconciled 06/30/23 by REINA Draper albuterol sulfate 90 mcg/actuation (ProAir HFA) 2 puffs inhalation Q6H PRN 30 days amlodipine 10 mg PO DAILY aspirin 81 mg PO DAILY atorvastatin mg PO blood sugar diagnostic (FreeStyle Lite Strips) As directed [id number] 50-300-40 mg (Fioricet) 1 cap PO Q8H PRN cetirizine 10 mg PO QAM 30 days chlorthalidone mg PO cyclobenzaprine 10 mg PO BEDTIME PRN 10 days famotidine 40 mg PO DAILY PRN fluticasone propionate 50 mcg/actuation 2 sprays intranasal DAILY 30 days lancets (TRUEplus Lancets) As directed lisinopril 40 mg PO DAILY montelukast (Singulair) 10 mg PO BEDTIME 30 days omeprazole 20 mg PO DAILY sodium chloride 0.65% ([place] Saline) 2 sprays intranasal Q4H PRN 30 days tadalafil (Cialis) 10 mg PO DAILY PRN terazosin 5 mg PO BEDTIME 90 days HPI f/u after testing HPI Details Bobby is a 57-year-old male past medical history of hypertension, hyperlipidemia, diabetes, heart palpitations which improved with caffeine reduction who reported chest discomfort last visit. He underwent a stress test and echocardiogram and now presents for follow-up. Today he reports that his chest discomfort is much improved. Randomly he will get a sharp pain along the right sternal border but he has not had in recent weeks. No shortness of breath, palpitations, presyncope, syncope, PND, orthopnea or edema. He tolerates normal ADLs without difficulty. He has started going to the gym 3 times weekly and is tolerating it well. [facility] Medical History GERD (gastroesophageal reflux disease) Orchialgia Weak urinary stream Asthma Nasal polyps Diabetes HTN (hypertension) Pulmonary nodules Surgical History History of esophagogastroduodenoscopy (EGD) Hx of colonoscopy H/O wrist surgery Family History Father Diabetes Hypertension Mother Hypertension Hyperlipidemia Brother Hypertension Family/Other Kidney stones Prostate cancer Bladder cancer Renal cancer Social History Alcohol intake: never Patient Tobacco Use Status: Former Tobacco user Quit Date: 31 yrs ago Tobacco use type: Cigarette Years Smoked: 30 years Review of Systems Const All systems reviewed & are unremarkable except as noted in HPI and below Card Reports chest pain (Much improved from previous reports), Denies chest pain at rest, Denies chest pain with activity, Denies rapid heart rate, Denies pedal edema, Denies edema, Denies leg edema, Denies lightheadedness, Denies palpitations, Denies dyspnea, Denies dyspnea on exertion and Denies orthopnea Resp Denies cough, Denies dyspnea and Denies dyspnea on exertion GI Denies hematochezia and Denies change in stool character Musc Denies abnormal gait, Denies limited range of motion, Denies muscle cramps, Denies muscle weakness, Denies numbness, Denies radiating pain into limb, Denies stiffness and Denies tingling Neuro Denies abnormal gait, Denies numbness and Denies tingling Endo Denies palpitations Physical Exam Vital Signs: Last Vital Signs Pulse 76 06/30/23 08:25 BP 132/80 06/30/23 08:25 BMI result Body Mass Index 29.6 Const General: cooperative, healthy appearing, comfortable and no acute distress Orientation/consciousness: patient oriented x3 Neck Neck: Yes normal visual inspection Resp Effort & Inspection: normal respiratory effort Auscultation: clear to auscultation bilaterally, no crackles, no rales, no rhonchi and no wheezes Cardio Jugular venous distension: no JVD Rate: regular rate Rhythm: regular rhythm Heart sounds: S1 normal heart sound present, S2 normal heart sound present, no murmurs and no rubs Neuro General: patient oriented x3 Extrem General: Yes normal to inspection, No no pedal edema and No calf tenderness Psych Appearance: grossly normal Mental Status: mental status grossly normal Speech and movement: Normal speech and movement present Assessment & Plan Assessment & Plan (1) Chest discomfort: Code(s): R07.89 - Other chest pain Plan: Report of a localized discomfort, sharp in the right sternal border occurring at rest and with activity. Somewhat atypical for angina however he has multiple cardiac risk factors including hypertension, hyperlipidemia and diabetes. No prior cardiac history. EKG done last visit showing sinus bradycardia with no acute ST or T-wave abnormalities, rate 59. Echocardiogram done 06/08/2023 showed EF 70%, mild LVH, moderate septal and moderate basal asymmetric hypertrophy. An exercise stress test was done on 06/08/2023 showing exercise 7 minutes with 7/10 stabbing pain in the right chest, no EKG changes. He then underwent an exercise nuclear stress test on 06/21/2023 with exercise 5 minutes, mild shortness of breath, no chest discomfort, no EKG changes and normal myocardial perfusion images. Review test results with him in detail. Overall he states his right chest discomfort is improving. Continues to be random and nonexertional. No indication this is cardiac in nature. Signs and symptoms of angina reviewed with him. Emergency care if ever needed for symptoms. Cardiology follow-up in 1 year, sooner if needed. Cardiac risk factor modification reviewed. (2) Palpitations: Code(s): R00.2 - Palpitations Plan: Prior reports of heart palpitations with evaluation in 2019. Holter monitor done at that time showed sinus rhythm with rare ectopy, average heart rate 73. His palpitations improved with a decrease in caffeine intake. At this time he denies any concerning heart palpitations. (3) Hypertension: Code(s): I10 - Essential (primary) hypertension Plan: Normal range today. No medication changes made. Coding Level of Care Code Est Pt Level 3 (06499) Diagnoses Chest discomfort R07.89 Palpitations R00.2 Hypertension I10 Time Spent (min) 22
== END 2023-06-30 09:00 | disposition home or self-care (01) ==
PROVIDERS: PCP Family Medicine; Visit Provider Nurse Practitioner Family
DX: R07.89 Other chest pain (principal); R00.2 Palpitations; I10 Essential (primary) hypertension
CPT/HCPCS: 99213

== ENCOUNTER → 2023-06-30 08:06 | Outpatient (BNVA) | payer MEDICARE, MEDICAID, SELFPAY | PROVIDERS: PCP Family Medicine; Visit Provider Nurse Practitioner Family | DX: R07.89 Other chest pain (principal); R00.2 Palpitations; I10 Essential (primary) hypertension | CPT/HCPCS: 99212 ==

== ENCOUNTER 2023-08-07 16:22 | Emergency (ER) | payer MEDICARE, MEDICAID, SELFPAY ==
--- NOTE | ~2023-08-07 | CT_ITS ---
EXAMINATION: CT HEAD WITHOUT CONTRAST CLINICAL INFORMATION: Chronic headache. COMPARISON: CT brain 03/04/2023. TECHNIQUE: Contiguous axial imaging was performed from the skull base to vertex without intravenous administration of contrast. This CT examination was performed using dose optimization techniques as appropriate, variously including the following: *Automated exposure control *Adjustment of mA and/or kV according to patient size (this includes techniques or standardized protocols for targeted exams where dose is matched to indication/reason for exam; i.e. extremities or head) *Use of iterative reconstruction technique DLP: 7:15 mGy-cm FINDINGS: There is no acute intra-axial, extra-axial bleed, masses or midline shift. There is no acute infarction in evolution. There is no edema. The grimes to white matter differentiation is maintained normal. The lateral ventricles are symmetrical in size and configuration without enlargement. Bone windows reveal no calvarial abnormality. There is no scalp soft tissue abnormality. CT/CT head/brain wo IV con IMPRESSION: No acute intracranial process seen.
[2023-08-07 16:30] VITALS: BP 180/70; PULSE 70; O2SAT 98
[2023-08-07 16:32] VITALS: PULSE 81; RESP 18; TEMP 36.8; O2SAT 96; BMI 30.4
[2023-08-07 16:38] VITALS: BP 185/100; PULSE 73; O2SAT 97
--- NOTE | 2023-08-07 16:39 | PC.NURSE ---
Patient arrives via ems from urgent care with reports of blurry vision, dizziness, and headache. Patient reports that he has had these problems for years however the headache seemed worse today. Patient ambualting in room, states he is always dizzy so he is safe to walk around.. NSR on monitor. BP elevated, reports taking medications as prescribed, states takes lisiopril and amlodipine daily.
[2023-08-07 16:41] VITALS: BP 167/87
--- NOTE | 2023-08-07 16:48 | ECG_ITS ---
Test Reason : HTN Blood Pressure : / mmHG Vent. Rate : 060 BPM Atrial Rate : 060 BPM P-R Int : 150 ms QRS Dur : 088 ms QT Int : 414 ms P-R-T Axes : 033 080 049 degrees QTc Int : 414 ms Normal sinus rhythm Normal ECG When compared with ECG of 08-OCT-2022 05:34, No significant change was found Referred By: Anabela Myers Electronically Signed By:Joaquin Saunders
--- NOTE | 2023-08-07 16:51 | ED.GENADULT ---
HPI - General Adult General Chief complaint: General Medical Stated complaint: INTERMITTEN BLURRY VISION,HEADACHE,DIZZY Time Seen by Provider: 08/07/23 16:35 Source: patient Mode of arrival: EMS Limitations: no limitations History of Present Illness HPI narrative: Patient comes to the emergency room complaining of chronic headache, chronic blurry vision, and chronic dizziness. Patient states that he has had all these complaints together for several years. I clarified with the patient if there is anything acute today, patient says there is nothing new today. All symptoms have been present for years. Patient states that the headache feels that there is someone constantly drilling holes throughout his entire head. Patient states he has chronic blurry vision also for years, and all the time he feels dizzy, patient explains it as not feeling well. Patient denies syncope or near syncope. Related Data Home Medications Medication Instructions Recorded Confirmed aspirin 81 mg tablet,delayed 81 mg PO DAILY 08/04/20 06/30/23 release blood sugar diagnostic (FreeStyle #10 ea 06/22/21 06/30/23 Lite Strips) lancets 33 gauge (TRUEplus Lancets) #100 ea 06/22/21 06/30/23 omeprazole 20 mg capsule,delayed 20 mg PO DAILY 08/15/22 06/30/23 release tadalafil 10 mg tablet (Cialis) 10 mg PO DAILY PRN sexual activity 04/06/23 06/30/23 atorvastatin 40 mg tablet mg PO 06/09/23 06/30/23 chlorthalidone 25 mg tablet mg PO 06/09/23 06/30/23 Previous Rx's Medication Instructions Recorded albuterol sulfate 90 mcg/actuation 2 puff inhalation Q6H PRN Wheezing 08/15/22 aerosol inhaler (ProAir HFA) 30 days #8.5 grams cetirizine 10 mg tablet 10 mg PO QAM 30 days #30 tabs 08/15/22 fluticasone propionate 50 2 spray intranasal DAILY 30 days 08/15/22 mcg/actuation nasal #15.8 mL spray,suspension sodium chloride 0.65 % nasal spray 2 spray intranasal Q4H PRN dry 08/15/22 aerosol ([place]mont Saline) nasal passages 30 days #50 mL cyclobenzaprine 10 mg tablet 10 mg PO BEDTIME PRN muscle spasm 10/31/22 10 days #10 tabs sfwkasiktl-nfjvwedhmfhym-shgvpluv 1 cap PO Q8H PRN pain #5 caps 03/04/23 50 mg-300 mg-40 mg capsule (Fioricet) famotidine 40 mg tablet 40 mg PO DAILY PRN for heartburn 03/07/23 #90 tabs terazosin 5 mg capsule 5 mg PO BEDTIME 90 days #90 caps 04/03/23 montelukast 10 mg tablet 10 mg PO BEDTIME 30 days #30 tabs 06/09/23 (Singulair) amlodipine 10 mg tablet 10 mg PO DAILY #90 tabs 06/21/23 lisinopril 40 mg tablet 40 mg PO DAILY #90 tabs 06/21/23 sumatriptan succinate 50 mg tablet See Rx Instructions PO .COMPLEX 08/07/23 #10 tabs Allergies Allergy/AdvReac Type Severity Reaction Status Date / Time amoxicillin [AMOXICILLIN] Allergy Severe ANAPHYLAXIS Verified 06/30/23 08:28 Penicillins Allergy Severe UNKNOWN Verified 06/30/23 08:28 REACTION-CHILDHOOD doxycycline [From VIBRAMYCIN] AdvReac Mild DIARRHEA Verified 06/30/23 08:28 Clindamycin HCl Allergy Severe Anaphylaxis Uncoded 06/09/23 09:56 Review of Systems Review of Systems: Constitutional : No Weight loss, No Fever, No Chills, No Night Sweats, No Fatigue, No Malaise ENT/Mouth : No Hearing loss, No Ear Pain, No Nasal Congestion, No Sinus Pain, No Hoarseness, No sore throat, No Rhinorrhea, No Swallowing Difficulty Eyes: No Eye Pain, No Swelling, No Redness, No Foreign Body, No Discharge, complaining of clonic blurry vision for years without change Cardiovascular : No Chest Pain, No SOB, No Dyspnea on Exertion, No Orthopnea, No Edema, No Palpitations Respiratory : No Cough, No Sputum, No Wheezing, No Smoke Exposure, No Dyspnea Gastrointestinal : No Nausea, No Vomiting, No Diarrhea, No Constipation, No abdominal Pain, No Hematochezia, No Melena Genitourinary : no irregular bleeding, No Dysuria, No Urinary Frequency, No Hematuria, No Urinary Incontinence, No Urgency, No Flank Pain, No Urinary Flow Changes, No Hesitancy Musculoskeletal : No joint pain, No Myalgias, No Joint Swelling Skin : No Skin Lesions, No rash Neuro : No Weakness, No Numbness, No Paresthesias, No Loss of Consciousness, complaining of chronic dizziness, chronic headache Psych : No Anxiety/Panic, No Depression, No SI/HI/AH/VH, No Social Issues, Heme/Lymph: No Bruising, No Bleeding,No Lymphadenopathy Endocrine : No Polyuria, No Polydipsia, No Temperature Intolerance [facility] Past Medical History Medical History GERD (gastroesophageal reflux disease) Orchialgia Weak urinary stream Asthma Nasal polyps Diabetes HTN (hypertension) Pulmonary nodules Surgical History History of esophagogastroduodenoscopy (EGD) Hx of colonoscopy H/O wrist surgery Family History Family History Father Diabetes Hypertension Mother Hypertension Hyperlipidemia Brother Hypertension Family/Other Kidney stones Prostate cancer Bladder cancer Renal cancer Social History Social History Alcohol intake: former Patient Tobacco Use Status: Former Tobacco user Quit Date: 31 yrs ago Tobacco use type: Cigarette Years Smoked: 30 years Smoked in Last 30 Days: No Use of substances other than those prescribed or required for medical reasons: No Advance Directives: No Advance Directives Information Provided: Yes Physical Exam ED Vital Signs: Vital Signs - 24 hr 08/07/23 16:32 08/07/23 16:38 08/07/23 16:41 Temperature 98.3 F Pulse Rate 81 73 Respiratory Rate 18 Blood Pressure 185/100 H 167/87 H Pulse Oximetry 96 97 Oxygen Delivery Method Room Air Room Air 08/07/23 17:52 08/07/23 17:52 08/07/23 17:53 Temperature Pulse Rate 67 63 72 Respiratory Rate Blood Pressure 172/86 H 141/80 H 143/85 H Pulse Oximetry Oxygen Delivery Method BMI result Body Mass Index 30.4 Const Other: Appearance: Alert. Oriented X3. No acute distress. Eyes: Pupils equal, round and reactive to light. ENT: Pharynx normal. Neck: Normal inspection. Neck supple. No lymph nodes noted. No crepitus CVS: Normal heart rate and rhythm. Pulses normal. Normal S1 and S2 Respiratory: No respiratory distress. Breath sounds normal. No Wheezing. No rales Abdomen: Soft and nontender. No rigidity. No distention. Skin: Skin warm and dry. Normal skin color. Normal skin turgor. Extremities: No lower extremity edema. No Lacerations. No Rash Neuro: Oriented X 3. No motor deficit. No sensory deficit. Moving all extremities. No slurred speech. CN 2 through 12 grossly intact Psych: calm, cooperative, normal affect Course Course Course Narrative: -patient has chronic symptoms that have been present for years. -all of patient's labs and imaging pending Medical Decision Making Medical Decision Making [facility] Narrative: -I reviewed patient's medical chart, patient had a cardiac stress test done this in 2 months ago, it was normal, ejection fraction 68%. Stress EKG negative for ischemia -my interpretation of labs, hematology and chemistry within normal limits. -mentor petitioned head CT, no acute abnormalities. -discussed with the patient that I will send medication for migraines to her pharmacy, and also we gave her a referral for Neurology Differential Diagnosis Differential Diagnoses: The differential diagnosis associated with the presentation includes (Chronic tension headache, migraine headache) Admission/Observation Consideration of admission/observation: Escalation of care including admission/observation considered (Your patient's initial set of complaints on arrival, admission was considered) Lab Data [facility] Lab Attestation statement: I reviewed the patient's lab results. 08/07/23 17:36 08/07/23 17:36 Labs: Lab Results 08/07/23 08/07/23 Range/Units 16:43 17:36 WBC 6.5 (4.8-10.8) X10*3/uL RBC 4.62 (4.60-5.80) X10*6/uL Hgb 14.0 (14.0-18.0) g/dl Hct 41.4 L (42.0-52.0) % MCV 89.6 (80.0-98.0) fL MCH 30.3 (27.0-33.0) pg MCHC 33.8 (31.0-36.0) g/dl RDW 11.9 (11.0-16.0) % Plt Count 222 (160-400) X10*3/uL MPV 10.6 (9.4-12.4) fL Immature Gran % (Auto) 0.3 (0.0-0.4) % Neut % (Auto) 68.4 (45-73) % Lymph % (Auto) 21.4 (20-40) % [place] % (Auto) 9.1 (2-11) % Eos % (Auto) 0.6 (0-4) % Baso % (Auto) 0.2 (0-2) % Lymph # (Auto) 1.4 (1.2-4.9) X10*3/uL [place] # (Auto) 0.6 (0.1-1.2) X10*3/uL Eos # (Auto) 0.0 (0.0-0.4) X10*3/uL Baso # (Auto) 0.0 (0.0-0.2) X10*3/uL Abs Immat Gran (auto) 0.02 (0.00-0.03) X10*3/uL Absolute Neuts (auto) 4.4 (2.0-8.3) x10*3/uL Absolute Nucleated RBC 0.000 (0.0-0.012) X10*3/uL Nucleated RBC % (auto) 0.0 (0.0-0.2) /100WBC Sodium 142 (135-145) mmol/L Potassium 3.8 (3.3-5.1) mmol/L Chloride 107 (96-108) mmol/L Carbon Dioxide 24 (22-29) mmol/L Anion Gap 15 (12-20) BUN 21 H (9-16) mg/dL Creatinine 1.29 (0.5-1.4) mg/dL Estim Creat Clear Calc 68.2 Estimated GFR 57 Random Glucose 151 H (60-115) mg/dL Calcium 9.1 (8.4-10.2) mg/dL Total Bilirubin 0.7 (0.0-1.0) mg/dL Direct Bilirubin 0.3 (0.0-0.5) mg/dL AST 23 (5-37) U/L ALT 18 (0-40) U/L Alkaline Phosphatase 93 (39-117) U/L Troponin I High Sens 3.1 (<3.5-35.0) ng/L Total Protein 6.9 (6.5-8.0) g/dL Albumin 4.1 (3.5-5.0) g/dL Urine Color Yellow Urine Appearance Clear Urine pH 6.0 (5.0-9.0) Ur Specific [place] 1.015 (1.005-1.025) Urine Protein Negative (Neg-Trace) mg/dL Urine Glucose (UA) Negative (Negative) mg/dL Urine Ketones Trace (Negative) mg/dL Urine Blood Trace H (Negative) Urine Nitrite Negative (Negative) Ur Leukocyte Esterase Negative (Negative) Urine RBC 3-5 H (0-2) /HPF Urine WBC 0-5 (0-5) /HPF Ur Squamous Epith Cells 0-2 (0-2) /HPF Urine Bacteria None Seen (None Seen) Hyaline Casts 0-2 (0-2) /LPF Independent Interpretation I performed an independent interpretation of an: CT Scan Radiology Impression Discussion of test interpretation with radiology: I have reviewed the radiologist's reading. Radiologist Impression: FINDINGS: There is no acute intra-axial, extra-axial bleed, masses or midline shift. There is no acute infarction in evolution. There is no edema. The grimes to white matter differentiation is maintained normal. The lateral ventricles are symmetrical in size and configuration without enlargement. Bone windows reveal no calvarial abnormality. There is no scalp soft tissue abnormality. CT/CT head/brain wo IV con IMPRESSION: No acute intracranial process seen. Critical Care Time Critical Care Time Critical Care Time: Yes Total Critical Care Time: 30 Attestation: I have personally provided critical care time. Time includes review of lab data, radiology results, discussion with consultants, and monitoring for potential decompensation. Intervention performed as documented. Discharge Plan Discharge Clinical Impression: Chronic migraine without aura Patient Disposition: Home, Self-Care Instructions: Migraine Headache (ED) Additional Instructions: Please follow-up with your primary care physician tomorrow. If you have any worsening or new symptoms, please return to the emergency room or call 911 Prescriptions: New sumatriptan succinate 50 mg tablet See Rx Instructions .ROUTE .COMPLEX Qty: 10 0RF Rx Instructions: take 1 tab at onset of headache; if no relief may repeat 1 tab after at least 2 hrs; max = 4 tabs/24 hr No Action famotidine 40 mg tablet 40 mg PO DAILY PRN (Reason: for heartburn) Qty: 90 4RF terazosin 5 mg capsule 5 mg PO BEDTIME 90 Days Qty: 90 1RF amlodipine 10 mg tablet 10 mg PO DAILY Qty: 90 3RF lisinopril 40 mg tablet 40 mg PO DAILY Qty: 90 3RF cyclobenzaprine 10 mg tablet 10 mg PO BEDTIME PRN (Reason: muscle spasm) 10 Days Qty: 10 0RF tadalafil [Cialis] 10 mg tablet 10 mg PO DAILY PRN (Reason: sexual activity) ltxpvmpwva-myhtdckkyyiqo-hxxv [Fioricet] 50-300-40 mg capsule 1 cap PO Q8H PRN (Reason: pain) Qty: 5 0RF aspirin 81 mg tablet,delayed release (DR/EC) 81 mg PO DAILY (DME) lancets [TRUEplus Lancets] 33 gauge misc See Rx Instructions Not Applicable TID Qty: 100 Rx Instructions: As directed (DME) FreeStyle Lite Strips Strip See Rx Instructions Not Applicable TID Qty: 10 Rx Instructions: As directed omeprazole 20 mg capsule,delayed release(DR/EC) 20 mg PO DAILY cetirizine 10 mg tablet 10 mg PO QAM 30 Days Qty: 30 10RF fluticasone propionate 50 mcg/actuation spray,suspension 2 spray intranasal DAILY 30 Days Qty: 15.8 11RF albuterol sulfate [ProAir HFA] 90 mcg/actuation HFA aerosol inhaler 2 puff inhalation Q6H PRN (Reason: Wheezing) 30 Days Qty: 8.5 11RF [place]mont Saline 0.65 % aerosol,spray 2 spray intranasal Q4H PRN (Reason: dry nasal passages) 30 Days Qty: 50 11RF atorvastatin 40 mg tablet PO chlorthalidone 25 mg tablet PO montelukast [Singulair] 10 mg tablet 10 mg PO BEDTIME 30 Days Qty: 30 11RF Referrals: Victoriano Nino MD [Physician] - 08/08/23 (Chronic headache)
[2023-08-07 16:54] LABS: Appearance Urine Clear; Color Urine Yellow; Glucose Urine UA Negative (Negative); Leukocyte Esterase Urine Negative (Negative); Nitrite Urine Negative (Negative); Specific Gravity - Urine 1.015 (1.005-1.025); UMIC TRIGGER UACC YES; Urine Blood Trace (Negative); Urine Ketones Trace mg/dL (Negative); Urine Protein Negative (Neg-Trace)
[2023-08-07 16:56] LABS: Bacteria Urine None Seen (None Seen); Hyaline Casts Urine 0-2 /LPF (0-2); Squamous Epithelial Cell Urine 0-2 /HPF (0-2); WBC Urine 0-5 /HPF (0-5)
[2023-08-07 17:42] LABS: MANUAL DIFF FLAG NO
[2023-08-07 17:43] LABS: Basophils Percent Auto 0.2 % (0-2); Eosinophils Percent Auto 0.6 % (0-4); Hematocrit 41.4 % (42.0-52.0); Imm Gran Abs Auto 0.02 X10*3/uL (0.00-0.03); Imm Gran Pct Auto 0.3 % (0.0-0.4); Lymphocytes Absolute Auto 1.4 X10*3/uL (1.2-4.9); Lymphocytes Percent Auto 21.4 % (20-40); Mean Corpuscular HGB Conc 33.8 g/dl (31.0-36.0); Mean Corpuscular Hemoglobin 30.3 pg (27.0-33.0); Mean Corpuscular Volume 89.6 fL (80.0-98.0); Mean Platelet Volume 10.6 fL (9.4-12.4); Monocytes Absolute Auto 0.6 X10*3/uL (0.1-1.2); Monocytes Percent Auto 9.1 % (2-11); Neutrophils Absolute Auto 4.4 x10*3/uL (2.0-8.3); Neutrophils Percent Auto 68.4 % (45-73); Platelet Count 222 X10*3/uL (160-400); Red Blood Count 4.62 X10*6/uL (4.60-5.80); Red Cell Distribution Width 11.9 % (11.0-16.0); White Blood Count 6.5 X10*3/uL (4.8-10.8)
[2023-08-07 17:52] VITALS: BP 141/80; BP 172/86; PULSE 63; PULSE 67
[2023-08-07 17:53] VITALS: BP 143/85; PULSE 72
[2023-08-07 18:01] LABS: Alanine Aminotransferase 18 U/L (0-40); Albumin Level 4.1 g/dL (3.5-5.0); Alkaline Phosphatase 93 U/L (39-117); Anion Gap 15 (12-20); Aspartate Amino Transferase 23 U/L (5-37); Bilirubin Direct 0.3 mg/dL (0.0-0.5); Bilirubin Total 0.7 mg/dL (0.0-1.0); Blood Urea Nitrogen 21 mg/dL (9-16); Calcium 9.1 mg/dL (8.4-10.2); Carbon Dioxide 24 mmol/L (22-29); Chloride 107 mmol/L (96-108); Creatinine Clr Calc Pharmacy 68.2; Estimated Glomerular Filt Rate 57; Glucose Random 151 mg/dL (60-115); Potassium 3.8 mmol/L (3.3-5.1); Sodium 142 mmol/L (135-145); Total Protein 6.9 g/dL (6.5-8.0)
[2023-08-07 18:07] LABS: Troponin-I High Sensitivity 3.1 ng/L (<3.5-35.0)
== END 2023-08-07 18:56 | disposition home or self-care (01) ==
PROVIDERS: Emergency Provider Emergency Medicine; PCP Family Medicine
DX: G43.009 Migraine without aura, not intractable, without status migrainosus (principal); E11.9 Type 2 diabetes mellitus without complications; I10 Essential (primary) hypertension; E78.00 Pure hypercholesterolemia, unspecified; Z79.82 Long term (current) use of aspirin; Z79.02 Long term (current) use of antithrombotics/antiplatelets; Z79.899 Other long term (current) drug therapy
CPT/HCPCS: 36415; 70450; 80048; 80076; 81001; 84484; 85025; 93005; 99284

== ENCOUNTER → 2023-08-07 16:48 | Outpatient (BNV) | payer MEDICARE, MEDICAID, SELFPAY | PROVIDERS: Emergency Provider Emergency Medicine; PCP Family Medicine; Visit Provider Internal Medicine Cardiovascular Disease | DX: I10 Essential (primary) hypertension (principal); R42 Dizziness and giddiness | CPT/HCPCS: 93010 ==

== ENCOUNTER 2023-08-30 10:20 | Outpatient (REF) | payer MEDICARE, MEDICAID, SELFPAY | END 2023-08-30 10:21 | disposition home or self-care (01) | LOC: HO.LAB 10:20 | PROVIDERS: PCP Family Medicine; Visit Provider Urology | DX: N40.1 Benign prostatic hyperplasia with lower urinary tract symptoms (principal); N13.8 Other obstructive and reflux uropathy; Z12.5 Encounter for screening for malignant neoplasm of prostate | CPT/HCPCS: 36415; 84153 ==

== ENCOUNTER 2023-09-15 09:17 | Outpatient (AMB) | payer MEDICARE, MEDICAID, SELFPAY ==
[2023-09-15 09:20] VITALS: BP 152/82; PULSE 85; O2SAT 98; BMI 29.8
--- NOTE | 2023-09-15 09:20 | MHC.OFFVIS ---
Intake Vital Signs 09/15/23 09:20 Height 5 ft 8 in Weight 196 lb 3.382 oz BMI 29.8 BP 152/82 H Blood Pressure Location Lt brachial Position Sitting Pulse 85 Pulse Source Pulse Oximeter Pulse Oximetry (%) 98 Oxygen Delivery Method Room Air Intake Visit Reasons: Asthma Allergies amoxicillin [AMOXICILLIN] Allergy (Severe, Verified 09/15/23 09:23) ANAPHYLAXIS Penicillins Allergy (Severe, Verified 09/15/23 09:23) UNKNOWN REACTION-CHILDHOOD doxycycline [From VIBRAMYCIN] Adverse Reaction (Mild, Verified 09/15/23 09:23) DIARRHEA Clindamycin HCl Allergy (Severe, Uncoded 09/15/23 09:23) Anaphylaxis HPI HPI Comments History of Present Illness Details Pleasant 58-year-old gentleman who is here for follow-up. He has background history of atypical chest pain for which he underwent stress testing in the past with was normal. He also had echocardiography which did not show any significant pathology. He is presenting now for follow-up because he has been experiencing palpitations. These happen almost every night. When he is lying on his side he feels his heart is racing and he can feel the heartbeat in his ear. Sometimes it is fast. He is worried about AFib. He has no significant chest pains at this point. He did not take his blood pressure medications today. His blood pressure is elevated today. 09/25/2020 the patient has a telephone visit. He has been complaining of further nasal congestion and sinus tenderness. Moderate severity. Significant cough postnasal drip related. Has a hard time sleeping at nighttime because the discomfort. He did undergo a CT scan of the chest that was personally by me. Appears to have stable pulmonary nodules. Will continue monitoring the nodules on a yearly basis for couple years to ensure stability. Patient also needs to be followed up by ENT due to the fact that he has nasal polyposis and his nasal issue will continue to be recurrent and progressive. 08/02/2021 the patient is here for a pulmonary sick visit. Apparently he was evaluated about a week ago with nasal congestion and sinus discomfort. He was placed on azithromycin. he did have partial improvement of the symptoms. But still having sinus discomfort and fullness and discomfort. The drainage has decreased in amount. Patient does have significant swelling of the nasal passages. In the meantime he also underwent a CT scan of the chest around the same time because of the pulmonary nodules. At least I could review the images with him and reassured him that he does not have any active lower respiratory infection. His pulmonary nodules are indeed stable which is reassuring. He will require CT scan in a year's time. We will treat him again for this subacute sinusitis with the hope of improving his symptoms. 08/15/2022 the patient is here for a pulmonary follow-up visit. The patient is doing well from a respiratory status. He does have a cough intermittently. Usually associated with a postnasal drip. Moderate severity. He does have allergy medicines and also nasal sprays but he has not been using it. His major issue is the neck pain and now shoulder discomfort. He does have significant osteoarthritis of the left shoulder. Has a hard time turning his neck. From a respiratory standpoint he does have a rescue inhaler but he does not use it. Typically his asthma is exacerbated by a he respiratory illness. Denies any significant allergies. He does have underlying pulmonary nodules. The patient did have a repeat CAT scan about a week ago which we personally reviewed in the office. The patient does have stable pulmonary nodules at this time. There subcentimeter in size and do not appear concerning. Therefore, since the pulmonary nodules have been stable now for 2 years no further imaging studies warranted. Will reassess in a year to see additional studies have required if he is having any ongoing symptoms. 06/09/2023 the patient is here for a pulmonary follow-up visit. He is complaining about worsening nasal congestion. Moderate severity. Has a hard time breathing through his nose and has a postnasal drip. He attributes this to his rugs in the apartment. Feels like they are causing him to have significant worsening sinusitis and rhinitis in addition to his asthma. He is asking for the rugs to be removed. At this point we can just request allergy testing and see if he is allergic to any dust mites or any mold that could be in better in the rugs. If he does have underlying allergies then be reasonable to request replaced on the rugs otherwise patient could just use the HEPA filter vacuum. The patient is doing well from the asthma standpoint. He has not had to use his rescue inhaler. Although does have significant sinusitis at this time so therefore will treat him for the sinusitis at this time. 09/15/2023 the patient is here for a pulmonary follow-up visit. The patient has been having good and bad days. Complains of significant nasal congestion. He does have the history of nasal polyps. He feels like being his apartment with the rugs make his breathing much worse. He has a studio apartment. We did do the allergy testing although no significant allergies were noted. Still he is still very uncomfortable and complaining that the rugs are bothering him. I did provide him with a letter if they can be removed safely then that would be a good option. He will have to work with his landlord for that. In the meantime the patient continues with current respiratory therapy. His breathing has been stable. He is still dealing with significant neck discomfort. The patient also had a CT scan last done back in July 2022 demonstrating an 8 mm pulmonary nodule. Based on the size which go ahead and repeat a CT scan before the next visit. [facility] Medical History GERD (gastroesophageal reflux disease) Orchialgia Weak urinary stream Asthma Nasal polyps Diabetes HTN (hypertension) Pulmonary nodules Surgical History History of esophagogastroduodenoscopy (EGD) Hx of colonoscopy H/O wrist surgery Family History Father Diabetes Hypertension Mother Hypertension Hyperlipidemia Brother Hypertension Family/Other Kidney stones Prostate cancer Bladder cancer Renal cancer Social History Alcohol intake: former Patient Tobacco Use Status: Former Tobacco user Quit Date: 31 yrs ago Tobacco use type: Cigarette Years Smoked: 30 years Review of Systems Const Denies fatigue, Denies fever(s), Denies night sweats, Denies poor appetite and Denies weight loss ENT Reports Normal hearing present, Denies dental pain, Denies dysphagia, Denies hearing loss, Denies mouth pain, Reports nasal congestion, Reports nasal discharge, Reports nasal obstruction, Denies odynophagia, Reports sinus pain and Reports sinus pressure Card Reports no additional complaints, Denies dyspnea and Denies dyspnea on exertion Resp Denies chest congestion, Reports cough, Denies dyspnea, Denies dyspnea on exertion and Denies wheezing GI Denies abdominal pain, Denies melena, Denies bloating, Reports hematochezia, Denies constipation, Denies GI cramping, Denies dysphagia, Denies excessive flatus, Denies early satiety, Reports heartburn, Denies diarrhea, Denies nausea, Denies odynophagia, Denies vomiting and Denies hematemesis Skin/Breast Denies pruritus, Denies lesions, Denies rash and Denies jaundice Neuro Reports Normal hearing present and Denies Abnormal speech present Endo Denies fatigue Aller/Immun Denies wheezing Physical Exam Vital Signs: Last Vital Signs Pulse 85 09/15/23 09:20 BP 152/82 H 09/15/23 09:20 Pulse Ox 98 09/15/23 09:20 Oxygen Delivery Method Room Air 09/15/23 09:20 BMI result Body Mass Index 29.8 Const General: no acute distress and well developed HEENT Head: Yes normocephalic and Yes atraumatic General nose exam: Abnormal mucous membranes and turbinates present erythematous Eyes Pupils: Equal, round and reactive pupils present Neck Neck: Yes normal visual inspection and Yes no lymphadenopathy Chest Chest palpation & inspection: normal inspection of the chest Resp Effort & Inspection: normal respiratory effort and able to speak in complete sentences Auscultation: clear to auscultation bilaterally Cardio Rate: regular rate Rhythm: regular rhythm GI Palpation (GI): Soft to palpation Skin General skin exam: no rashes or lesions noted Neuro Cranial nerves: Yes Equal, round and reactive pupils present and Yes Normal hearing present Speech: No Abnormal speech present Extrem General: No clubbing, No cyanosis and No edema Psych Appearance: well kempt Attitude: cooperative Assessment & Plan Assessment & Plan (1) Nasal polyps: Code(s): J33.9 - Nasal polyp, unspecified (2) Pulmonary nodules: Code(s): R91.8 - Other nonspecific abnormal finding of lung field (3) Asthma: Code(s): J45.909 - Unspecified asthma, uncomplicated Qualifiers: Asthma complication type: uncomplicated Asthma persistence: persistent Asthma severity: moderate Qualified Code(s): J45.40 - Moderate persistent asthma, uncomplicated Plan WAI as needed Continue nasal therapy wtih flonase and nasal rinsing continue zyrtec continue singulair Continue WAI as needed CT chest to assess 8mm nodule F/U in 4-6 months Orders: Orders CT chest wo IV con 3 Months R91.8 - Other nonspecific abnormal finding of lung field Coding Level of Care Code Est Pt Level 4 (14475) Diagnoses Nasal polyps J33.9 Pulmonary nodules R91.8 Moderate persistent asthma without complication J45.40 Asthma complication type: uncomplicated Asthma persistence: persistent Asthma severity: moderate Time Spent (min) 17
== END 2023-09-15 09:41 | disposition home or self-care (01) ==
PROVIDERS: PCP Family Medicine; Visit Provider Hospitalist
DX: J33.9 Nasal polyp, unspecified (principal); R91.8 Other nonspecific abnormal finding of lung field; J45.40 Moderate persistent asthma, uncomplicated
CPT/HCPCS: 99214

== ENCOUNTER → 2023-09-15 09:17 | Outpatient (BNVA) | payer MEDICARE, MEDICAID, SELFPAY | PROVIDERS: PCP Family Medicine; Visit Provider Hospitalist | DX: J45.40 Moderate persistent asthma, uncomplicated (principal); J33.9 Nasal polyp, unspecified; R91.8 Other nonspecific abnormal finding of lung field | CPT/HCPCS: 99212 ==

== ENCOUNTER 2023-09-18 21:42 | Emergency (ER) | payer MEDICARE, MEDICAID, SELFPAY ==
--- NOTE | ~2023-09-18 | XR_ITS ---
EXAMINATION: CHEST 2 VIEWS CLINICAL INFORMATION: Chest pain. COMPARISON: 01/28/2022. TECHNIQUE: PA and lateral views of the chest obtained. FINDINGS: The lungs are hypoexpanded. No focal infiltrate, effusion, edema, or pneumothorax. Cardiac and mediastinal silhouettes are within normal limits for technique. No acute bony abnormality seen. Degenerative changes in the spine and shoulders XR/XR chest 2V IMPRESSION: No evidence of acute disease
--- NOTE | 2023-09-18 21:49 | ECG_ITS ---
Test Reason : CP Blood Pressure : / mmHG Vent. Rate : 065 BPM Atrial Rate : 065 BPM P-R Int : 134 ms QRS Dur : 090 ms QT Int : 402 ms P-R-T Axes : 010 064 041 degrees QTc Int : 418 ms Normal sinus rhythm Normal ECG When compared with ECG of 07-AUG-2023 17:19, No significant change was found Referred By: Generic ED Physician Electronically Signed By:Joaquin Saunders
[2023-09-18 22:03] VITALS: BP 146/86; PULSE 80; RESP 18; O2SAT 98; BMI 28.9
--- NOTE | 2023-09-18 22:03 | ED.CHESTPAIN ---
HPI - Chest Pain General Chief Complaint: Chest Pain Stated Complaint: Intermittent chest pain, for a few days Time Seen by Provider: 09/18/23 21:52 Source: patient and EMS Mode of arrival: EMS Limitations: no limitations History of Present Illness HPI narrative: 58-year-old male presents to the ER with complaints of intermittent chest pressure for the last few days. Patient reports that he recently lost his brother and his parents. He feels quite stressed and anxious but denies any SI or HI. Denies these symptoms being associated with exertion. They occur intermittently. There is no associated vomiting, diaphoresis, shortness of breath, cough, fever, leg swelling or leg pain. Of note patient received aspirin and nitroglycerin prior to arrival with EMS Related Data Home Medications Medication Instructions Recorded Confirmed aspirin 81 mg tablet,delayed 81 mg PO DAILY 08/04/20 06/30/23 release blood sugar diagnostic (FreeStyle #10 ea 06/22/21 06/30/23 Lite Strips) lancets 33 gauge (TRUEplus Lancets) #100 ea 06/22/21 06/30/23 omeprazole 20 mg capsule,delayed 20 mg PO DAILY 08/15/22 06/30/23 release tadalafil 10 mg tablet (Cialis) 10 mg PO DAILY PRN sexual activity 04/06/23 06/30/23 atorvastatin 40 mg tablet mg PO 06/09/23 06/30/23 chlorthalidone 25 mg tablet mg PO 06/09/23 06/30/23 Previous Rx's Medication Instructions Recorded albuterol sulfate 90 mcg/actuation 2 puff inhalation Q6H PRN Wheezing 08/15/22 aerosol inhaler (ProAir HFA) 30 days #8.5 grams cetirizine 10 mg tablet 10 mg PO QAM 30 days #30 tabs 08/15/22 fluticasone propionate 50 2 spray intranasal DAILY 30 days 08/15/22 mcg/actuation nasal #15.8 mL spray,suspension sodium chloride 0.65 % nasal spray 2 spray intranasal Q4H PRN dry 08/15/22 aerosol ([place] Saline) nasal passages 30 days #50 mL cyclobenzaprine 10 mg tablet 10 mg PO BEDTIME PRN muscle spasm 10/31/22 10 days #10 tabs dlfdtcmqvk-gqmjuhnbrvzyl-gonynlez 1 cap PO Q8H PRN pain #5 caps 03/04/23 50 mg-300 mg-40 mg capsule (Fioricet) famotidine 40 mg tablet 40 mg PO DAILY PRN for heartburn 03/07/23 #90 tabs montelukast 10 mg tablet 10 mg PO BEDTIME 30 days #30 tabs 06/09/23 (Singulair) amlodipine 10 mg tablet 10 mg PO DAILY #90 tabs 06/21/23 lisinopril 40 mg tablet 40 mg PO DAILY #90 tabs 06/21/23 sumatriptan succinate 50 mg tablet See Rx Instructions PO .COMPLEX 08/07/23 #10 tabs terazosin 5 mg capsule 5 mg PO BEDTIME 90 days #90 caps 09/18/23 Allergies Allergy/AdvReac Type Severity Reaction Status Date / Time amoxicillin [AMOXICILLIN] Allergy Severe ANAPHYLAXIS Verified 09/15/23 09:23 Penicillins Allergy Severe UNKNOWN Verified 09/15/23 09:23 REACTION-CHILDHOOD doxycycline [From VIBRAMYCIN] AdvReac Mild DIARRHEA Verified 09/15/23 09:23 Clindamycin HCl Allergy Severe Anaphylaxis Uncoded 09/15/23 09:23 Review of Systems Review of Systems: Yes all other systems are reviewed and are negative Constitutional: Constitutional: Reports no additional constitutional complaints, Denies body ache(s), Denies chills, Denies fever(s), Denies headache(s) and Denies weakness Eyes: Eyes: Reports no additional eye complaints and Denies change in vision ENT: Reports system reviewed and no additional complaints, except as documented, Denies dizziness, Denies headache(s), Denies nasal congestion, Denies nasal discharge and Denies neck pain Cardiovascular: Cardiovascular: Reports no additional cardiovascular complaints, Reports chest pain, Denies leg edema and Denies dyspnea Respiratory: Respiratory: Reports no additional respiratory complaints, Denies cough and Denies dyspnea Gastrointestinal: Gastrointestinal: Reports no additional gastrointestinal complaints, Denies abdominal pain, Denies diarrhea, Denies nausea and Denies vomiting Genitourinary: Genitourinary: Denies urinary incontinence Musculoskeletal: Musculoskeletal: Reports no additional musculoskeletal complaints, Denies back pain, Denies arthralgias, Denies joint swelling, Denies neck pain, Denies numbness and Denies tingling Integumentary/Breasts: Skin/Breast: Reports system reviewed and no additional complaints, except as docu and Denies rash Neurologic: Reports system reviewed and no additional complaints, except as documented, Denies Abnormal speech present, Denies dizziness, Denies headache(s), Denies numbness, Denies tingling and Denies weakness PMFSH Past Medical History Attestation statement: The following information was validated with the patient. Source: old records reviewed and nursing notes reviewed Medical History GERD (gastroesophageal reflux disease) Orchialgia Weak urinary stream Asthma Nasal polyps Diabetes HTN (hypertension) Pulmonary nodules Surgical History History of esophagogastroduodenoscopy (EGD) Hx of colonoscopy H/O wrist surgery Family History Family History Father Diabetes Hypertension Mother Hypertension Hyperlipidemia Brother Hypertension Family/Other Kidney stones Prostate cancer Bladder cancer Renal cancer Social History Social History Alcohol intake: former Patient Tobacco Use Status: Former Tobacco user Quit Date: 31 yrs ago Tobacco use type: Cigarette Years Smoked: 30 years Smoked in Last 30 Days: No Use of substances other than those prescribed or required for medical reasons: No Advance Directives: No Advance Directives Information Provided: No Physical Exam Vital Signs: Vital Signs: Last Vital Signs Temp 98.4 F 09/18/23 22:13 Pulse 63 09/18/23 22:13 Resp 12 09/18/23 22:13 BP 176/81 H 09/18/23 22:13 Pulse Ox 98 09/18/23 22:13 O2 Del Method Room Air 09/18/23 22:13 BMI result Body Mass Index 28.9 Const: General: cooperative, healthy appearing, comfortable and no acute distress Orientation/consciousness: patient oriented x3 Limitations: no limitations HEENT: Head: Yes normal to inspection Ears: hearing grossly normal bilaterally General nose exam: Normal external nose present Face and sinus: Yes normal facial exam Mouth: Normal oral and palatal mucosa present Throat: Yes posterior oropharynx normal Eyes: General: appearance normal, both eyes and all related structures Pupils: Equal, round and reactive pupils present Neck: Neck: Yes normal visual inspection Chest: Chest palpation & inspection: normal inspection of the chest Resp: Effort & Inspection: normal respiratory effort Auscultation: clear to auscultation bilaterally Cardio: Rate: regular rate Rhythm: regular rhythm Peripheral pulses: Peripheral pulses 2+ throughout GI: Inspection: Yes normal to inspection Palpation (GI): Soft to palpation and nontender Auscultation: normal bowel sounds Back/Spine/Pelvis: Thoracic/Lumbar Spine: thoracic and lumbar spine normal to inspection Skin: General skin exam: no rashes or lesions noted Neuro: General: patient oriented x3, no focal motor deficits and normal sensation to monofilament Cranial nerves: Yes Equal, round and reactive pupils present Cognition (Neuro): normal cognition Speech: No Abnormal speech present Gait exam (Neuro): Normal gait present Motor exam (neuro): 5/5 motor strength present throughout Extrem: General: Yes normal to inspection, Yes no pedal edema and Yes no calf tenderness Course Course Course Narrative: Labs are unremarkable. EKG is nonischemic. Chest x-ray shows no acute finding. Patient feels improved. Patient will be discharged home with recommendations to follow up with primary outpatient. Reviewed worrisome signs and symptoms of when to return to the emergency room. Comfortable plan for discharge home Medical Decision Making Medical Decision Making [facility] Narrative: 58-year-old male presents to the ER with complaints of intermittent chest pressure for the last few days. Patient reports that he recently lost his brother and his parents. He feels quite stressed and anxious but denies any SI or HI. Denies these symptoms being associated with exertion. They occur intermittently. There is no associated vomiting, diaphoresis, shortness of breath, cough, fever, leg swelling or leg pain. Of note patient received aspirin and nitroglycerin prior to arrival with EMS When I went to the patient he was initially requesting to leave as he felt improved. I did recommend he we obtain labs, EKG and chest x-ray to rule out ACS which he agreed to. Differential Diagnosis Differential Diagnoses: The differential diagnosis associated with the presentation includes ACS Low concern for PE-no clinical findings concerning for DVT, no tachycardia, no tachypnea, no hypoxia. No risk factors for same Low concern for aortic dissection d/t gradual onset Admission/Observation Consideration of admission/observation: Escalation of care including admission/observation considered Less likely ACS with negative troponin, nonischemic EKG and symptoms for several days Lab Data [facility] Lab Attestation statement: I reviewed the patient's lab results. 09/18/23 22:19 09/18/23 22:19 Labs: Lab Results 09/18/23 Range/Units 22:19 WBC 5.9 (4.8-10.8) X10*3/uL RBC 4.47 L (4.60-5.80) X10*6/uL Hgb 13.4 L (14.0-18.0) g/dl Hct 39.2 L (42.0-52.0) % MCV 87.7 (80.0-98.0) fL MCH 30.0 (27.0-33.0) pg MCHC 34.2 (31.0-36.0) g/dl RDW 12.4 (11.0-16.0) % Plt Count 241 (160-400) X10*3/uL MPV 10.0 (9.4-12.4) fL Immature Gran % (Auto) 0.3 (0.0-0.4) % Neut % (Auto) 66.0 (45-73) % Lymph % (Auto) 22.2 (20-40) % Pitt % (Auto) 11.0 (2-11) % Eos % (Auto) 0.2 (0-4) % Baso % (Auto) 0.3 (0-2) % Lymph # (Auto) 1.3 (1.2-4.9) X10*3/uL Pitt # (Auto) 0.7 (0.1-1.2) X10*3/uL Eos # (Auto) 0.0 (0.0-0.4) X10*3/uL Baso # (Auto) 0.0 (0.0-0.2) X10*3/uL Abs Immat Gran (auto) 0.02 (0.00-0.03) X10*3/uL Absolute Neuts (auto) 3.9 (2.0-8.3) x10*3/uL Absolute Nucleated RBC 0.000 (0.0-0.012) X10*3/uL Nucleated RBC % (auto) 0.0 (0.0-0.2) /100WBC Sodium 140 (135-145) mmol/L Potassium 3.7 (3.3-5.1) mmol/L Chloride 106 (96-108) mmol/L Carbon Dioxide 26 (22-29) mmol/L Anion Gap 12 (12-20) BUN 14 (9-16) mg/dL Creatinine 0.92 (0.5-1.4) mg/dL Estim Creat Clear Calc 92.3 Estimated GFR > 60 Random Glucose 170 H (60-115) mg/dL Calcium 9.4 (8.4-10.2) mg/dL Total Bilirubin 0.7 (0.0-1.0) mg/dL Direct Bilirubin 0.4 (0.0-0.5) mg/dL AST 23 (5-37) U/L ALT 22 (0-40) U/L Alkaline Phosphatase 91 (39-117) U/L Troponin I High Sens 7.1 D (<3.5-35.0) ng/L Total Protein 7.0 (6.5-8.0) g/dL Albumin 4.2 (3.5-5.0) g/dL Independent Interpretation I performed an independent interpretation of an: EKG and Plain X-Ray Interpretation: I independently reviewed the chest x-ray and agree with the radiology report. Independently reviewed the EKG which shows normal sinus rhythm with a rate of 65, normal IN, normal QRS, normal QT Radiology Impression Discussion of test interpretation with radiology: I have reviewed the radiologist's reading. Radiologist Impression: FINDINGS: The lungs are hypoexpanded. No focal infiltrate, effusion, edema, or pneumothorax. Cardiac and mediastinal silhouettes are within normal limits for technique. No acute bony abnormality seen. Degenerative changes in the spine and shoulders XR/XR chest 2V IMPRESSION: No evidence of acute disease Independent Historian Clinical information obtained from an independent historian. History obtained from or confirmed by: EMS Tests considered The following testing was considered but not selected: Low concern for PE-no clinical findings concerning for DVT, no tachycardia, no tachypnea, no hypoxia. No risk factors for same requiring CTA Prescription Management I considered prescription management with: Pain Medication Discharge Plan Discharge Clinical Impression: Chest discomfort Patient Disposition: Home, Self-Care Instructions: Chest Pain (ED) Additional Instructions: Lab work, EKG and chest x-ray are reassuring. Follow-up with your outpatient providers and return for any worsening symptoms Prescriptions: No Action famotidine 40 mg tablet 40 mg PO DAILY PRN (Reason: for heartburn) Qty: 90 4RF amlodipine 10 mg tablet 10 mg PO DAILY Qty: 90 3RF lisinopril 40 mg tablet 40 mg PO DAILY Qty: 90 3RF terazosin 5 mg capsule 5 mg PO BEDTIME 90 Days Qty: 90 1RF cyclobenzaprine 10 mg tablet 10 mg PO BEDTIME PRN (Reason: muscle spasm) 10 Days Qty: 10 0RF tadalafil [Cialis] 10 mg tablet 10 mg PO DAILY PRN (Reason: sexual activity) sumatriptan succinate 50 mg tablet See Rx Instructions .ROUTE .COMPLEX Qty: 10 0RF Rx Instructions: take 1 tab at onset of headache; if no relief may repeat 1 tab after at least 2 hrs; max = 4 tabs/24 hr uaowlkknrs-rbjxujlyxjbpe-vzdr [Fioricet] 50-300-40 mg capsule 1 cap PO Q8H PRN (Reason: pain) Qty: 5 0RF aspirin 81 mg tablet,delayed release (DR/EC) 81 mg PO DAILY (DME) lancets [TRUEplus Lancets] 33 gauge misc See Rx Instructions Not Applicable TID Qty: 100 Rx Instructions: As directed (DME) FreeStyle Lite Strips Strip See Rx Instructions Not Applicable TID Qty: 10 Rx Instructions: As directed omeprazole 20 mg capsule,delayed release(DR/EC) 20 mg PO DAILY cetirizine 10 mg tablet 10 mg PO QAM 30 Days Qty: 30 10RF fluticasone propionate 50 mcg/actuation spray,suspension 2 spray intranasal DAILY 30 Days Qty: 15.8 11RF albuterol sulfate [ProAir HFA] 90 mcg/actuation HFA aerosol inhaler 2 puff inhalation Q6H PRN (Reason: Wheezing) 30 Days Qty: 8.5 11RF [place] Saline 0.65 % aerosol,spray 2 spray intranasal Q4H PRN (Reason: dry nasal passages) 30 Days Qty: 50 11RF atorvastatin 40 mg tablet PO chlorthalidone 25 mg tablet PO montelukast [Singulair] 10 mg tablet 10 mg PO BEDTIME 30 Days Qty: 30 11RF Referrals: Ashley Frankel MD [Primary Care Provider] - 5 days
[2023-09-18 22:06] VITALS: PULSE 80
--- NOTE | 2023-09-18 22:07 | PC.NURSE ---
Addendum entered by Bela Jimenez RN 09/18/23 22:09: Disregard, pt is open to doing bloodwork. Maryan Mtz at bedside now Original Note: Pt reporting chest pressure over the last two days. Pt has had a lot of family loss recently, he reports a lot of anxiety. EMS gave a324 aspirin and 0.4mg nitro, placed 20g IV in the left AC. Pt has hx of HTN, forgot to take his medications this morning. A&Ox4, ambulatory, pt does not want to be here. Anna at bedside to assess the pt. Pt is refusing labwork and treatment at this time. PA aware. Pt will be leaving AMA.
[2023-09-18 22:13] VITALS: BP 176/81; PULSE 63; RESP 12; TEMP 36.9; O2SAT 98
[2023-09-18 22:26] LABS: MANUAL DIFF FLAG NO
[2023-09-18 22:28] LABS: Basophils Percent Auto 0.3 % (0-2); Eosinophils Percent Auto 0.2 % (0-4); Hematocrit 39.2 % (42.0-52.0); Hemoglobin 13.4 g/dl (14.0-18.0); Imm Gran Abs Auto 0.02 X10*3/uL (0.00-0.03); Imm Gran Pct Auto 0.3 % (0.0-0.4); Lymphocytes Absolute Auto 1.3 X10*3/uL (1.2-4.9); Lymphocytes Percent Auto 22.2 % (20-40); Mean Corpuscular HGB Conc 34.2 g/dl (31.0-36.0); Mean Corpuscular Volume 87.7 fL (80.0-98.0); Monocytes Absolute Auto 0.7 X10*3/uL (0.1-1.2); Neutrophils Absolute Auto 3.9 x10*3/uL (2.0-8.3); Platelet Count 241 X10*3/uL (160-400); Red Blood Count 4.47 X10*6/uL (4.60-5.80); Red Cell Distribution Width 12.4 % (11.0-16.0); White Blood Count 5.9 X10*3/uL (4.8-10.8)
[2023-09-18 22:43] LABS: Alanine Aminotransferase 22 U/L (0-40); Albumin Level 4.2 g/dL (3.5-5.0); Alkaline Phosphatase 91 U/L (39-117); Anion Gap 12 (12-20); Aspartate Amino Transferase 23 U/L (5-37); Bilirubin Direct 0.4 mg/dL (0.0-0.5); Bilirubin Total 0.7 mg/dL (0.0-1.0); Blood Urea Nitrogen 14 mg/dL (9-16); Calcium 9.4 mg/dL (8.4-10.2); Carbon Dioxide 26 mmol/L (22-29); Chloride 106 mmol/L (96-108); Creatinine Clr Calc Pharmacy 92.3; Estimated Glomerular Filt Rate > 60; Glucose Random 170 mg/dL (60-115); Potassium 3.7 mmol/L (3.3-5.1); Sodium 140 mmol/L (135-145)
[2023-09-18 22:49] LABS: Troponin-I High Sensitivity 7.1 ng/L (<3.5-35.0)
[2023-09-18 23:07] VITALS: BP 138/87; PULSE 82; RESP 16; O2SAT 97
== END 2023-09-18 23:11 | disposition home or self-care (01) ==
PROVIDERS: Emergency Provider Emergency Medicine; PCP Family Medicine
DX: R07.89 Other chest pain (principal); F32.A Depression, unspecified; E11.9 Type 2 diabetes mellitus without complications; I10 Essential (primary) hypertension; E78.00 Pure hypercholesterolemia, unspecified; Z79.82 Long term (current) use of aspirin; Z79.02 Long term (current) use of antithrombotics/antiplatelets; Z79.899 Other long term (current) drug therapy
CPT/HCPCS: 36415; 71046; 80048; 80076; 84484; 85025; 93005; 99284; 99285

== ENCOUNTER → 2023-09-18 21:49 | Outpatient (BNV) | payer MEDICARE, MEDICAID, SELFPAY | PROVIDERS: Emergency Provider Emergency Medicine; PCP Family Medicine; Visit Provider Internal Medicine Cardiovascular Disease | DX: R07.9 Chest pain, unspecified (principal) | CPT/HCPCS: 93010 ==

== ENCOUNTER 2023-09-20 09:05 | Outpatient (AMB) | payer MEDICARE, MEDICAID, SELFPAY ==
--- NOTE | 2023-09-20 09:13 | A.OFFVIS_ITS ---
Intake Intake Visit Reasons: 6M PSA/PVR(set) Intake Note: Patient is present for Follow Up Urology Medications: Terazosin,Tadalafil Blood Thinner: Aspirin Unable to void, PVR: 28ml's Picture Copyist Required: No Accompanied by: Self / Same As Patient Allergies amoxicillin [AMOXICILLIN] Allergy (Severe, Verified 09/20/23 09:14) ANAPHYLAXIS Penicillins Allergy (Severe, Verified 09/20/23 09:14) UNKNOWN REACTION-CHILDHOOD doxycycline [From VIBRAMYCIN] Adverse Reaction (Mild, Verified 09/20/23 09:14) DIARRHEA Clindamycin HCl Allergy (Severe, Uncoded 09/20/23 09:14) Anaphylaxis HPI HPI Comments History of Present Illness Details Bobby is a very pleasant male. They are a patient of Dr Frankel. They are seen in the office today for the following urologic conditions. - lower urinary tract symptoms - erectile dysfunction Six-month follow-up PVR 25 Continued Cialis 10 mg daily with terazosin 5 mg Had run out of medications and noticed that urination was impacted Had nocturia x4 without medications Dropped to 1 time with medications Erectile dysfunction background type 2 diabetes Progressive 09/19 response to high-dose daily Cialis Lower Urinary Tract Symptoms:? Current visit is for?further evaluation of, lower urinary tract symptoms, predominate obstructive symptoms ?- less nocturia.? Current treatment includes?medication, alpha jesus - tamsulosin 0.4 mg ? Symptoms include?09/16 , weak stream, straining, and are progressing ?10/17 improved stream Labs - 07/17 0.9, 09/20 0.9 ? Associated conditions? diabetes ?Yes ? erectile dysfunction ?Yes ? Treatment plan?daily tadalafil medications.? PFSH Medical History GERD (gastroesophageal reflux disease) Orchialgia Weak urinary stream Asthma Nasal polyps Diabetes HTN (hypertension) Pulmonary nodules Surgical History History of esophagogastroduodenoscopy (EGD) Hx of colonoscopy H/O wrist surgery Family History Father Diabetes Hypertension Mother Hypertension Hyperlipidemia Brother Hypertension Family/Other Kidney stones Prostate cancer Bladder cancer Renal cancer Social History Alcohol intake: former Patient Tobacco Use Status: Former Tobacco user Quit Date: 31 yrs ago Tobacco use type: Cigarette Years Smoked: 30 years Review of Systems Const Denies chills and Denies fever(s) Card Reports no additional complaints and Denies syncope Resp Denies cough GI Denies abdominal pain and Denies heartburn Reports as per HPI and Denies change in libido Neuro Denies syncope Psych Denies change in libido Endo Denies change in libido Physical Exam Const General: cooperative, healthy appearing, comfortable and no acute distress Orientation/consciousness: patient oriented x3 HEENT Face and sinus: Yes normal facial exam Mouth: moist mucous membranes Neck Neck: Yes normal visual inspection, Yes full ROM and Yes trachea midline Chest Chest palpation & inspection: normal inspection of the chest Resp Effort & Inspection: normal respiratory effort, able to speak in complete sentences and no respiratory distress GI Inspection: Yes normal to inspection Back/Spine/Pelvis Cervical Spine: normal cervical lordosis Thoracic/Lumbar Spine: thoracic and lumbar spine normal to inspection Skin General skin exam: no rashes or lesions noted Neuro General: patient oriented x3, gait normal, tone normal and moves all extremities Extrem General: Yes normal to inspection and Yes capillary refill normal Office Procedures Post Void Residual Post Residual Void Post Void Residual (PVR): [id number] Void Residual by ultrasound Assessment & Plan Assessment & Plan (1) BPH w urinary obs/LUTS: Code(s): N40.1 - Benign prostatic hyperplasia with lower urinary tract symptoms; N13.8 - Other obstructive and reflux uropathy (2) Erectile dysfunction associated with type 2 diabetes mellitus: Code(s): E11.69 - Type 2 diabetes mellitus with other specified complication; N52.1 - Erectile dysfunction due to diseases classified elsewhere Plan Six-month follow-up Orders: Orders AMB Post Void Residual by ultrasound Today N39.8 - Other specified disorders of urinary system Medications: Changed From tadalafil (Cialis) 10 mg PO DAILY PRN sexual activity N13.8 - Other obstructive and reflux uropathy, N40.1 - Benign prostatic hyperplasia with lower urinary tract symptoms To tadalafil (Cialis) Take daily for prostate 10 mg PO DAILY 90 tabs 1RF sexual activity 90 days N13.8 - Other obstructive and reflux uropathy, N40.1 - Benign prostatic hyperplasia with lower urinary tract symptoms Refilled terazosin 5 mg PO BEDTIME 90 caps 1RF 90 days N13.8 - Other obstructive and reflux uropathy, N40.1 - Benign prostatic hyperplasia with lower urinary tract symptoms, R35.0 - Frequency of micturition Patient Instructions: Imaging studies, laboratory and physical exam results were discussed and reviewed in detail. No major barriers to patient understanding were identified. An opportunity to ask questions regarding the treatment plan was provided. All questions were answered. The patient expressed understanding and agreement with the above treatment plan. The patient is aware they should contact our office by phone for worsening of their current condition or the appearance of new urologic symptoms. Compliance is encouraged with any medications and followup testing that is ordered. It is a privilege to participate in the urologic care of your patient. If you have any questions or concerns regarding treatment for the above conditions, or other urologic issues, please do not hesitate to contact me. The office telephone contact is [phone]. This note is constructed using voice recognition software. While every effort has been made to ensure accuracy efficiency miner blasting errors may have been included. Yours sincerely, Dr Kishore Dorsey MD, [facility] - Urology Providers of Expert, Compassionate Care for the Genitourinary System Coding Level of Care Code Est Pt Level 4 (83330) Diagnoses BPH w urinary obs/LUTS N40.1; N13.8 Erectile dysfunction associated with type 2 diabetes mellitus E11.69; N52.1 CPT Codes Post Residual Void - PVR CPT Code: 96730-Kysl Void Residual by ultrasound ([id number])
== END 2023-09-20 09:52 | disposition home or self-care (01) ==
PROVIDERS: PCP Family Medicine; Visit Provider Urology
DX: N40.1 Benign prostatic hyperplasia with lower urinary tract symptoms (principal); N13.8 Other obstructive and reflux uropathy; E11.69 Type 2 diabetes mellitus with other specified complication; N52.1 Erectile dysfunction due to diseases classified elsewhere
CPT/HCPCS: 99213

== ENCOUNTER → 2023-09-20 09:05 | Outpatient (BNVA) | payer MEDICARE, MEDICAID, SELFPAY | PROVIDERS: PCP Family Medicine; Visit Provider Urology | DX: N40.1 Benign prostatic hyperplasia with lower urinary tract symptoms (principal); N13.8 Other obstructive and reflux uropathy; E11.69 Type 2 diabetes mellitus with other specified complication; N52.1 Erectile dysfunction due to diseases classified elsewhere | CPT/HCPCS: 51798; 99212 ==

== ENCOUNTER 2023-11-23 15:39 | Emergency (ER) | payer MEDICARE, MEDICAID, SELFPAY ==
--- NOTE | ~2023-11-23 | XR_ITS ---
EXAMINATION: XR LUMBOSACRAL SPINE CLINICAL INFORMATION: Low back pain, no trauma COMPARISON: 10/31/2022 TECHNIQUE: Three views of the lumbosacral spine. FINDINGS: Vertebral bodies are well aligned and intervertebral discs are preserved. Marginal spurring seen consistent with degenerative spondylosis. There is no spondylolysis lysis or listhesis. There is mild narrowing of L4-L5 and L5-S1 intervertebral disc space. Soft tissues unremarkable XR/XR lumbar spine 2-3V IMPRESSION: No interval change in appearance of degenerative spondylosis and mild degenerative disc disease at the level of L4-L5 and L5-S1
[2023-11-23 16:15] VITALS: BP 186/96; PULSE 65; RESP 18; TEMP 37.2; O2SAT 97; BMI 29.3
--- NOTE | 2023-11-23 16:15 | ED_ITS ---
HPI - Back Pain/Injury General Chief Complaint: Back Pain/Injury Stated Complaint: lower back pain, barely walk- very painful Time Seen by Provider: 11/23/23 16:34 Source: patient Mode of arrival: ambulatory Limitations: no limitations History of Present Illness HPI Narrative: 58-year-old male with a past medical history of diabetes, hypertension, GERD, and BPH presents to emergency department with complaints low back pain as well as urinary frequency for the past several days. He reports he was seen in urgent care center on Monday and diagnosed with lower back pain and started on muscle relaxers with minimal improvement in his symptoms. He states his pain radiates to bilateral hips causing difficulty with ambulation secondary to pain. He denies any trauma, overuse injury, fever, chills, or history of IV drug use. He denies any new paresthesias, weakness, saddle anesthesias, urinary hesitancy, urinary or fecal incontinence Pertinent positives and negatives discussed in HPI MD elicited complaint: back pain Related Data Home Medications Medication Instructions Recorded Confirmed aspirin 81 mg tablet,delayed 81 mg PO DAILY 08/04/20 06/30/23 release blood sugar diagnostic (FreeStyle #10 ea 06/22/21 06/30/23 Lite Strips) lancets 33 gauge (TRUEplus Lancets) #100 ea 06/22/21 06/30/23 omeprazole 20 mg capsule,delayed 20 mg PO DAILY 08/15/22 06/30/23 release atorvastatin 40 mg tablet mg PO 06/09/23 06/30/23 chlorthalidone 25 mg tablet mg PO 06/09/23 06/30/23 Previous Rx's Medication Instructions Recorded albuterol sulfate 90 mcg/actuation 2 puff inhalation Q6H PRN Wheezing 08/15/22 aerosol inhaler (ProAir HFA) 30 days #8.5 grams cetirizine 10 mg tablet 10 mg PO QAM 30 days #30 tabs 08/15/22 fluticasone propionate 50 2 spray intranasal DAILY 30 days 08/15/22 mcg/actuation nasal #15.8 mL spray,suspension sodium chloride 0.65 % nasal spray 2 spray intranasal Q4H PRN dry 08/15/22 aerosol ([place] Saline) nasal passages 30 days #50 mL cyclobenzaprine 10 mg tablet 10 mg PO BEDTIME PRN muscle spasm 10/31/22 10 days #10 tabs [id number]-[id number]-[id number] 1 cap PO Q8H PRN pain #5 caps 03/04/23 50 mg-300 mg-40 mg capsule (Fioricet) famotidine 40 mg tablet 40 mg PO DAILY PRN for heartburn 03/07/23 #90 tabs montelukast 10 mg tablet 10 mg PO BEDTIME 30 days #30 tabs 06/09/23 (Singulair) amlodipine 10 mg tablet 10 mg PO DAILY #90 tabs 06/21/23 lisinopril 40 mg tablet 40 mg PO DAILY #90 tabs 06/21/23 sumatriptan succinate 50 mg tablet See Rx Instructions PO .COMPLEX 08/07/23 #10 tabs tadalafil 10 mg tablet (Cialis) 10 mg PO DAILY sexual activity 90 09/20/23 days #90 tabs terazosin 5 mg capsule 5 mg PO BEDTIME 90 days #90 caps 09/20/23 cyclobenzaprine 5 mg tablet 5 mg PO TID PRN muscle spasm #14 11/23/23 tabs lidocaine 5 % topical patch 1 patch topical DAILY #15 ea 11/23/23 naproxen 500 mg tablet 500 mg PO BID PRN pain #30 tabs 11/23/23 Allergies Allergy/AdvReac Type Severity Reaction Status Date / Time amoxicillin [AMOXICILLIN] Allergy Severe ANAPHYLAXIS Verified 11/23/23 16:15 Penicillins Allergy Severe UNKNOWN Verified 11/23/23 16:15 REACTION-CHILDHOOD doxycycline [From VIBRAMYCIN] AdvReac Mild DIARRHEA Verified 11/23/23 16:15 Clindamycin HCl Allergy Severe Anaphylaxis Uncoded 09/20/23 09:14 Review of Systems 2 Review of Systems: Yes all other systems are reviewed and are negative PMF Past Medical History Medical History GERD (gastroesophageal reflux disease) Orchialgia Weak urinary stream Asthma Nasal polyps Diabetes HTN (hypertension) Pulmonary nodules Surgical History History of esophagogastroduodenoscopy (EGD) Hx of colonoscopy H/O wrist surgery Family History Family History Father Diabetes Hypertension Mother Hypertension Hyperlipidemia Brother Hypertension Family/Other Kidney stones Prostate cancer Bladder cancer Renal cancer Social History Social History Alcohol intake: former Patient Tobacco Use Status: Former Tobacco user Quit Date: 31 yrs ago Tobacco use type: Cigarette Years Smoked: 30 years Advance Directives: No Advance Directives Information Provided: No Physical Exam 2 Vital Signs: Vital Signs: Last Vital Signs Temp 98.3 F 11/23/23 16:42 Pulse 55 11/23/23 16:42 Resp 16 11/23/23 16:42 BP 172/78 H 11/23/23 16:42 Pulse Ox 98 11/23/23 16:42 O2 Del Method Room Air 11/23/23 16:42 BMI result Body Mass Index 29.3 Nursing notes and vital signs reviewed. GENERAL APPEARANCE: A&0 x 4, generally well appearing, no acute distress HENMT: Normal to inspection, atraumatic, face symmetrical. Normal external ears, nose, and oropharynx clear. EYE: PERRLA, EOM intact, structures appear normal NECK: Supple without stiffness or restricted ROM. HEART: Normal rate and regular rhythm, normal S1/S2, no M/R/G LUNGS: LS CTA, moving air well. Able to speak in complete sentences. No crackles, wheezes, or rhonchi auscultated BACK: No CVAT, no obvious deformity. No red flag symptoms or step-offs EXTREMITIES: Moving all extremities without difficulty. Normal capillary refill. NEUROLOGICAL: Alert and oriented, moving all 4 extremities with equal strength. CN not formally tested but appearing grossly intact. Observed to ambulate with normal gait. Cognition normal SKIN: Warm and dry without any lesions, rash, or visible sores Course Course Course Narrative: RME:?58 yo male here w/ bilateral low back pain x1 week. denies injury/ trauma to back. seen at walk-in clinic yesterday and diagnosed with muscle spasm, discharged home w/ muscle relaxer and pain medications however there has been no relief in pain. denies numbness/tingling in LEs. labs and xrs Full HPI, ROS and PE to be performed by the primary ED provider. Medical Decision Making Medical Decision Making MDM Narrative: Old records reviewed for previous imaging, lab studies, ECGs, and notes. Patient was assessed the emergency department with no acute distress or toxicity noted. 0 lumbar x-ray completed which, per my interpretation, showed no evidence of acute findings. Blood work unremarkable showing no signs of leukocytosis, anemia, organ dysfunction, or electrolyte imbalance. Patient's symptoms are consistent with low back strain/sprain. Naproxen, lidocaine patches, and Flexeril since patient preferred pharmacy for further management. Patient educated to follow-up with spine center if symptoms do not improve in the next several days. Patient is safe for discharge at this time with plan for [id number] Tylenol and/or NSAID such as ibuprofen or naproxen for fever/discomfort with dosing as per packaging. HPI, PE, diagnostics, and plan discussed with patient and family with no unanswered questions at this time. Strict return precautions given to return to the emergency department with new, worsening, or concerning emergent symptoms. Recommended to follow-up with there primary care provider in 24-48 hours for further treatment and management. Differential Diagnosis Differential Diagnoses: The differential diagnosis associated with the presentation includes But not limited to strain, sprain, stenosis, radiculopathy, epidural abscess, cauda equina, sepsis, malignancy Lab Data 11/23/23 16:49 11/23/23 16:49 Labs: Lab Results 11/23/23 11/23/23 Range/Units 16:49 17:23 WBC 4.6 L (4.8-10.8) X10*3/uL RBC 4.60 (4.60-5.80) X10*6/uL Hgb 14.1 (14.0-18.0) g/dl Hct 40.8 L (42.0-52.0) % MCV 88.7 (80.0-98.0) fL MCH 30.7 (27.0-33.0) pg MCHC 34.6 (31.0-36.0) g/dl RDW 12.1 (11.0-16.0) % Plt Count 225 (160-400) X10*3/uL MPV 10.6 (9.4-12.4) fL Immature Gran % (Auto) 0.2 (0.0-0.4) % Neut % (Auto) 56.4 (45-73) % Lymph % (Auto) 31.4 (20-40) % [place] % (Auto) 10.5 (2-11) % Eos % (Auto) 1.1 (0-4) % Baso % (Auto) 0.4 (0-2) % Lymph # (Auto) 1.4 (1.2-4.9) X10*3/uL [place] # (Auto) 0.5 (0.1-1.2) X10*3/uL Eos # (Auto) 0.1 (0.0-0.4) X10*3/uL Baso # (Auto) 0.0 (0.0-0.2) X10*3/uL Abs Immat Gran (auto) 0.01 (0.00-0.03) X10*3/uL Absolute Neuts (auto) 2.6 (2.0-8.3) x10*3/uL Absolute Nucleated RBC 0.000 (0.0-0.012) X10*3/uL Nucleated RBC % (auto) 0.0 (0.0-0.2) /100WBC Sodium 142 (135-145) mmol/L Potassium 3.8 (3.3-5.1) mmol/L Chloride 105 (96-108) mmol/L Carbon Dioxide 30 H (22-29) mmol/L Anion Gap 11 L (12-20) BUN 14 (9-16) mg/dL Creatinine 1.07 (0.5-1.4) mg/dL Estim Creat Clear Calc 77.9 Estimated GFR > 60 Random Glucose 110 (60-115) mg/dL Calcium 9.3 (8.4-10.2) mg/dL Total Bilirubin 1.2 H (0.0-1.0) mg/dL AST 20 (5-37) U/L ALT 11 (0-40) U/L Alkaline Phosphatase 94 (39-117) U/L Total Protein 6.7 (6.5-8.0) g/dL Albumin 4.1 (3.5-5.0) g/dL Urine Color Yellow Urine Appearance Clear Urine pH 6.5 (5.0-9.0) Ur Specific [place] <= 1.005 (1.005-1.025) Urine Protein Negative (Neg-Trace) mg/dL Urine Glucose (UA) Negative (Negative) mg/dL Urine Ketones Negative (Negative) mg/dL Urine Blood Negative (Negative) Urine Nitrite Negative (Negative) Ur Leukocyte Esterase Negative (Negative) Discharge Plan Discharge Clinical Impression: Low back pain Patient Disposition: Home, Self-Care Instructions: Back Pain (ED) Prescriptions: New lidocaine 5 % adhesive patch,medicated 1 patch topical DAILY Qty: 15 0RF Rx Instructions: leave on most painful area for up to 12 hrs naproxen 500 mg tablet 500 mg PO BID PRN (Reason: pain) Qty: 30 0RF cyclobenzaprine 5 mg tablet 5 mg PO TID PRN (Reason: muscle spasm) Qty: 14 0RF No Action famotidine 40 mg tablet 40 mg PO DAILY PRN (Reason: for heartburn) Qty: 90 4RF amlodipine 10 mg tablet 10 mg PO DAILY Qty: 90 3RF lisinopril 40 mg tablet 40 mg PO DAILY Qty: 90 3RF cyclobenzaprine 10 mg tablet 10 mg PO BEDTIME PRN (Reason: muscle spasm) 10 Days Qty: 10 0RF sumatriptan succinate 50 mg tablet See Rx Instructions .ROUTE .COMPLEX Qty: 10 0RF Rx Instructions: take 1 tab at onset of headache; if no relief may repeat 1 tab after at least 2 hrs; max = 4 tabs/24 hr huwgeostbr-[id number]-[id number] [Fioricet] 50-300-40 mg capsule 1 cap PO Q8H PRN (Reason: pain) Qty: 5 0RF aspirin 81 mg tablet,delayed release (DR/EC) 81 mg PO DAILY (DME) lancets [TRUEplus Lancets] 33 gauge misc See Rx Instructions Not Applicable TID Qty: 100 Rx Instructions: As directed (DME) FreeStyle Lite Strips Strip See Rx Instructions Not Applicable TID Qty: 10 Rx Instructions: As directed omeprazole 20 mg capsule,delayed release(DR/EC) 20 mg PO DAILY cetirizine 10 mg tablet 10 mg PO QAM 30 Days Qty: 30 10RF fluticasone propionate 50 mcg/actuation spray,suspension 2 spray intranasal DAILY 30 Days Qty: 15.8 11RF albuterol sulfate [ProAir HFA] 90 mcg/actuation HFA aerosol inhaler 2 puff inhalation Q6H PRN (Reason: Wheezing) 30 Days Qty: 8.5 11RF [place] Saline 0.65 % aerosol,spray 2 spray intranasal Q4H PRN (Reason: dry nasal passages) 30 Days Qty: 50 11RF tadalafil [Cialis] 10 mg tablet 10 mg PO DAILY 90 Days Qty: 90 1RF Rx Instructions: Take daily for prostate terazosin 5 mg capsule 5 mg PO BEDTIME 90 Days Qty: 90 1RF atorvastatin 40 mg tablet PO chlorthalidone 25 mg tablet PO montelukast [Singulair] 10 mg tablet 10 mg PO BEDTIME 30 Days Qty: 30 11RF Referrals: [facility] [Provider Group] Ashley Frankel MD [Primary Care Provider] - Stand Alone Forms: Work/School Release Print Language: Maori
[2023-11-23 16:42] VITALS: BP 172/78; PULSE 55; RESP 16; TEMP 36.8; O2SAT 98
[2023-11-23 16:55] LABS: MANUAL DIFF FLAG NO
[2023-11-23 17:06] LABS: Basophils Percent Auto 0.4 % (0-2); Eosinophils Absolute Auto 0.1 X10*3/uL (0.0-0.4); Eosinophils Percent Auto 1.1 % (0-4); Hematocrit 40.8 % (42.0-52.0); Hemoglobin 14.1 g/dl (14.0-18.0); Imm Gran Abs Auto 0.01 X10*3/uL (0.00-0.03); Imm Gran Pct Auto 0.2 % (0.0-0.4); Lymphocytes Absolute Auto 1.4 X10*3/uL (1.2-4.9); Lymphocytes Percent Auto 31.4 % (20-40); Mean Corpuscular HGB Conc 34.6 g/dl (31.0-36.0); Mean Corpuscular Hemoglobin 30.7 pg (27.0-33.0); Mean Corpuscular Volume 88.7 fL (80.0-98.0); Mean Platelet Volume 10.6 fL (9.4-12.4); Monocytes Absolute Auto 0.5 X10*3/uL (0.1-1.2); Monocytes Percent Auto 10.5 % (2-11); Neutrophils Absolute Auto 2.6 x10*3/uL (2.0-8.3); Neutrophils Percent Auto 56.4 % (45-73); Platelet Count 225 X10*3/uL (160-400); Red Cell Distribution Width 12.1 % (11.0-16.0); White Blood Count 4.6 X10*3/uL (4.8-10.8)
[2023-11-23 17:12] LABS: Alanine Aminotransferase 11 U/L (0-40); Albumin Level 4.1 g/dL (3.5-5.0); Alkaline Phosphatase 94 U/L (39-117); Anion Gap 11 (12-20); Aspartate Amino Transferase 20 U/L (5-37); Bilirubin Total 1.2 mg/dL (0.0-1.0); Blood Urea Nitrogen 14 mg/dL (9-16); Calcium 9.3 mg/dL (8.4-10.2); Carbon Dioxide 30 mmol/L (22-29); Chloride 105 mmol/L (96-108); Creatinine Clr Calc Pharmacy 77.9; Estimated Glomerular Filt Rate > 60; Glucose Random 110 mg/dL (60-115); Potassium 3.8 mmol/L (3.3-5.1); Sodium 142 mmol/L (135-145); Total Protein 6.7 g/dL (6.5-8.0)
--- NOTE | 2023-11-23 17:26 | PC.NURSE ---
Urine specimen collected and sent to lab for analysis. Awaiting results.
[2023-11-23 17:31] LABS: Appearance Urine Clear; Color Urine Yellow; Glucose Urine UA Negative (Negative); Leukocyte Esterase Urine Negative (Negative); Nitrite Urine Negative (Negative); PH 6.5 (5.0-9.0); Specific Gravity - Urine <= 1.005 (1.005-1.025); Urine Blood Negative (Negative); Urine Ketones Negative (Negative); Urine Protein Negative (Neg-Trace)
[2023-11-23 17:36] LABS: Bacteria Urine None Seen (None Seen); Hyaline Casts Urine 0-2 /LPF (0-2); RBC Urine 0-2 /HPF (0-2); Squamous Epithelial Cell Urine 0-2 /HPF (0-2); WBC Urine 0-5 /HPF (0-5)
[2023-11-23 18:02] VITALS: BP 172/78; PULSE 55; RESP 16; TEMP 36.8; O2SAT 98
== END 2023-11-23 18:05 | disposition home or self-care (01) ==
PROVIDERS: Nurse Practitioner Family; Physician Assistant Medical; Emergency Provider Emergency Medicine; PCP Family Medicine
DX: M54.50 Low back pain, unspecified (principal); R35.0 Frequency of micturition; E11.9 Type 2 diabetes mellitus without complications; I10 Essential (primary) hypertension
CPT/HCPCS: 36415; 72100; 80053; 81001; 85025; 99283

== ENCOUNTER 2023-12-16 19:14 | Emergency (ER) | payer OTHER, SELFPAY ==
[2023-12-16 19:25] VITALS: BP 205/105; PULSE 60; RESP 18; TEMP 36.6; O2SAT 98; BMI 26.6
--- NOTE | 2023-12-16 19:28 | ED_ITS ---
HPI - Back Pain/Injury General Chief Complaint: Back Pain/Injury Stated Complaint: Back pain Time Seen by Provider: 12/16/23 20:50 Source: patient Mode of arrival: ambulatory Limitations: no limitations History of Present Illness HPI Narrative: 58-year-old male with a past medical history of diabetes, hypertension, GERD, and BPH presents to emergency department with complaints low back pain x2 weeks. Patient states he does not recall injuring himself 2 weeks prior. He states that the pain is been constant since onset. He points to his lower back states the pain is greater on the left than the right. The pain does radiate to both hips. He states that both legs feel weak. Denies radiation of the pain down his legs. Denies loss of bowel or bladder control. He denies fever or chills. Patient was seen here in the emergency department on 11/23/2023 at that time he had blood work and x-rays which were unremarkable. In reviewing his previous visits the patient has been seen several times in the past for lower back pain. He states that his PCP has referred him to physical therapy he has had 2 physical therapy sections. He states his PCP is considering get an MRI of his back. Patient has been taking ibuprofen 800 mg and Flexeril with no relief his pain. Related Data Home Medications ?Medication ?Instructions ?Recorded ?Confirmed aspirin 81 mg tablet,delayed 81 mg PO DAILY 08/04/20 06/30/23 release blood sugar diagnostic (FreeStyle #10 ea 06/22/21 06/30/23 Lite Strips) lancets 33 gauge (TRUEplus Lancets) #100 ea 06/22/21 06/30/23 omeprazole 20 mg capsule,delayed 20 mg PO DAILY 08/15/22 06/30/23 release atorvastatin 40 mg tablet mg PO 06/09/23 06/30/23 chlorthalidone 25 mg tablet mg PO 06/09/23 06/30/23 Previous Rx's ?Medication ?Instructions ?Recorded albuterol sulfate 90 mcg/actuation 2 puff inhalation Q6H PRN Wheezing 08/15/22 aerosol inhaler (ProAir HFA) 30 days #8.5 grams cetirizine 10 mg tablet 10 mg PO QAM 30 days #30 tabs 08/15/22 fluticasone propionate 50 2 spray intranasal DAILY 30 days 08/15/22 mcg/actuation nasal #15.8 mL spray,suspension sodium chloride 0.65 % nasal spray 2 spray intranasal Q4H PRN dry 08/15/22 aerosol ([place] Saline) nasal passages 30 days #50 mL cyclobenzaprine 10 mg tablet 10 mg PO BEDTIME PRN muscle spasm 10/31/22 10 days #10 tabs fosufvkfht-ckyxvczosfmob-mipjznqe 1 cap PO Q8H PRN pain #5 caps 03/04/23 50 mg-300 mg-40 mg capsule (Fioricet) famotidine 40 mg tablet 40 mg PO DAILY PRN for heartburn 03/07/23 #90 tabs montelukast 10 mg tablet 10 mg PO BEDTIME 30 days #30 tabs 06/09/23 (Singulair) amlodipine 10 mg tablet 10 mg PO DAILY #90 tabs 06/21/23 lisinopril 40 mg tablet 40 mg PO DAILY #90 tabs 06/21/23 sumatriptan succinate 50 mg tablet See Rx Instructions PO .COMPLEX 08/07/23 #10 tabs tadalafil 10 mg tablet (Cialis) 10 mg PO DAILY sexual activity 90 09/20/23 days #90 tabs terazosin 5 mg capsule 5 mg PO BEDTIME 90 days #90 caps 09/20/23 cyclobenzaprine 5 mg tablet 5 mg PO TID PRN muscle spasm #14 11/23/23 tabs lidocaine 5 % topical patch 1 patch topical DAILY #15 ea 11/23/23 naproxen 500 mg tablet 500 mg PO BID PRN pain #30 tabs 11/23/23 acetaminophen 500 mg tablet 1,000 mg (2 x 500 mg) PO Q6H PRN 12/16/23 (Tylenol Extra Strength) fever or pain #20 tabs ibuprofen 400 mg tablet 400 mg PO TID PRN fever or pain 12/16/23 #30 tabs morphine 15 mg tablet,extended 15 mg PO Q6H PRN pain #10 tabs 12/16/23 release Allergies Allergy/AdvReac Type Severity Reaction Status Date / Time amoxicillin [AMOXICILLIN] Allergy Severe ANAPHYLAXIS Verified 12/16/23 19:30 Penicillins Allergy Severe UNKNOWN Verified 12/16/23 19:30 REACTION-CHILDHOOD doxycycline [From VIBRAMYCIN] AdvReac Mild DIARRHEA Verified 12/16/23 19:30 Clindamycin HCl Allergy Severe Anaphylaxis Uncoded 09/20/23 09:14 Review of Systems Review of Systems: Yes all other systems are reviewed and are negative [facility] Past Medical History [facility] Narrative: Social history: He denies tobacco, alcohol and drug use Medical History GERD (gastroesophageal reflux disease) Orchialgia Weak urinary stream Asthma Nasal polyps Diabetes HTN (hypertension) Pulmonary nodules Surgical History History of esophagogastroduodenoscopy (EGD) Hx of colonoscopy H/O wrist surgery Family History Family History Father Diabetes Hypertension Mother Hypertension Hyperlipidemia Brother Hypertension Family/Other Kidney stones Prostate cancer Bladder cancer Renal cancer Social History Social History Alcohol intake: former Patient Tobacco Use Status: Former Tobacco user Quit Date: 31 yrs ago Tobacco use type: Cigarette Years Smoked: 30 years Advance Directives: No Advance Directives Information Provided: No Physical Exam Vital Signs: Vital Signs: Last Vital Signs Temp 98 F 12/16/23 19:25 Pulse 60 12/16/23 19:25 Resp 18 12/16/23 19:25 BP 179/77 H 12/16/23 20:26 Pulse Ox 98 12/16/23 19:25 O2 Del Method Room Air 12/16/23 19:25 BMI result Body Mass Index 26.6 Vital signs revealed an elevated blood pressure of 179/77 Exam: General: Awake, appears to be in distress secondary to his pain, he is walking in the emergency depart with his back hunched over and has a slow gait secondary to his pain Head: Normocephalic, atraumatic EENT: PERRL, Lids normal, sclera normal, conjunctiva normal, nose normal , ears normal, throat without erythema or exudates Neck: Supple, no adenopathy Lung: breath sounds symmetric, no wheezing, rales or rhonchi Chest: symmetric movement, nontender Heart: regular rate and rhythm, normal S1, S2 no murmurs or rubs Abdomen: soft, non-tender, nondistended, normal bowel sounds Back: Patient has tenderness palpation over his lumbar sacral spine with no point tenderness he also has tenderness palpation of the paraspinal muscles in lumbar sacral area with spasm. Has negative straight leg raises bilaterally Extremities: no deformities, moves all extremities symmetrically Neuro: Awake, alert, oriented, normal speech, cranial nerves intact, moves all extremities symmetrically, lower extremity reflexes are intact Psych: Pleasant, cooperative Course Course Course Narrative: This is a rapid medical exam. Deferred additional HPI, ROS, PE to primary provider. 58 yo male here with complaints of lower back pain, back spasm Took flexeril, ibuprofen with continued symptoms Will give toradol, flexeril VSS Medications Administered Discontinued Medications Generic Name Dose Route Start Last Admin Trade Name Freq PRN Reason Stop Dose Admin Cyclobenzaprine HCl 5 mg 12/16/23 19:30 12/16/23 20:26 Cyclobenzaprine Hcl 5 Mg Tablet PO 12/16/23 19:31 5 mg ONCE ONE Administration Ketorolac Tromethamine 30 mg 12/16/23 19:30 12/16/23 20:27 Ketorolac Tromethamine 30 Mg/Ml Vial IM 12/16/23 19:31 30 mg ONCE ONE Administration Lidocaine 1 patch 12/16/23 19:30 12/16/23 20:28 Lidocaine 4 % Patch Adh..Patch TRANSDERMA 12/16/23 19:31 1 patch ONCE ONE Administration Protocol Lisinopril 40 mg 12/16/23 19:36 12/16/23 20:26 Lisinopril 40 Mg Tablet PO 12/16/23 19:37 40 mg ONCE ONE Administration Protocol Medical Decision Making Medical Decision Making [facility] Narrative: 58-year-old male with a past medical history of diabetes, hypertension, GERD, and BPH presents emergency department for evaluation of 2 weeks of lower back pain not improved with ibuprofen and Flexeril, pain does radiate to both hips but doubt down his legs, he has had no loss of bowel or bladder control fever or chills. Patient has been seen in the emergency department on 11/23/2023 for similar complaint had lumbar spine x-rays that revealed no acute findings but did revealhere is ?mild narrowing of L4-L5 and L5-S1 intervertebral disc space. Soft tissues unremarkable ?. Patient's physical examination did reveal tenderness palpation of the lumbar sacral spine as well as the paraspinal muscles in lumbar sacral area with spasm. Patient has a bent over gait and does appear to be in distress secondary to his pain. Vital signs did reveal an elevated blood pressure Differential diagnosis: ?Includes but is not limited to lumbar sacral muscle sprain, muscle spasm, degenerative joint disease, disc disease Course: 21:34 Patient's physical examination revealed tenderness palpation over his lumbar vertebrae and lumbar sacral paraspinal muscles with spasm suggesting the patient most likely has musculoskeletal skeletal sprain. Patient's lumbar spine x-rays did reveal narrowing of L4-L5 and L5-S1 so the patient may have disc disease causing his pain as well as arthritic changes. The patient was advised to stop taking his ibuprofen 800 mg and he was prescribed ibuprofen 400 mg 3 times a day, Tylenol 1000 mg 3 times a day and for pain not relieved by these medications she was prescribed morphine 15 mg every 6 hours as needed for pain. He was also advised to apply ice for 15 minutes to his lower back 4 times a day and to take his Flexeril at night. Patient was treated with Toradol 30 mg IM, lidocaine patch 4% and lisinopril 40 mg orally, his outpatient medication for his elevated blood pressure here in the emergency department. Patient was given printed and verbal instructions advised follow-up with his provider for re-evaluation Admission/Observation Consideration of admission/observation: Escalation of care including admission/observation considered Prescription Management I considered prescription management with: Pain Medication Chronic Conditions Patient?s care impacted by: Diabetes and Hypertension Discharge Plan Discharge Clinical Impression: Acute lumbar back pain Qualifiers: Back pain laterality: unspecified Sciatica presence: without sciatica Qualified Code(s): M54.50 - Low back pain, unspecified Patient Disposition: Home, Self-Care Instructions: Acute Low Back Pain (ED) Additional Instructions: I want you to stop taking your ibuprofen 800 mg pills and take a lower dose, 400 mg Take ibuprofen 400 mg pills, 1 pills every 6 hours as needed for pain. Take Tylenol (acetaminophen) 2 pills every 6 hours as needed for pain. For pain not relieved by ibuprofen or Tylenol take morphine 15 mg pills, 1 pill every 4 hours as needed for pain. This medication will make you sleepy, do not drive or work while taking this medication. Morphine is a narcotic medication and can be addicting. If you are concerned about addiction you can ask the pharmacist for less pills or do not get this prescription filled. Take your Flexeril at night to see if this improves your back pain. Apply ice for 15 minutes 4 times a day for 1 week to your lower back. Follow-up with your doctor in 2 days. Please return to the emergency department if your symptoms get worse or if you develop any symptoms that are concerning to you. Prescriptions: New acetaminophen [Tylenol Extra Strength] 500 mg tablet 1,000 mg PO Q6H PRN (Reason: fever or pain) Qty: 20 0RF ibuprofen 400 mg tablet 400 mg PO TID PRN (Reason: fever or pain) Qty: 30 0RF morphine 15 mg tablet extended release 15 mg PO Q6H PRN (Reason: pain) Qty: 10 0RF Rx Instructions: Partial Fill upon patient request. No Action famotidine 40 mg tablet 40 mg PO DAILY PRN (Reason: for heartburn) Qty: 90 4RF amlodipine 10 mg tablet 10 mg PO DAILY Qty: 90 3RF lisinopril 40 mg tablet 40 mg PO DAILY Qty: 90 3RF cyclobenzaprine 10 mg tablet 10 mg PO BEDTIME PRN (Reason: muscle spasm) 10 Days Qty: 10 0RF sumatriptan succinate 50 mg tablet See Rx Instructions .ROUTE .COMPLEX Qty: 10 0RF Rx Instructions: take 1 tab at onset of headache; if no relief may repeat 1 tab after at least 2 hrs; max = 4 tabs/24 hr [id number]-[id number] [Fioricet] 50-300-40 mg capsule 1 cap PO Q8H PRN (Reason: pain) Qty: 5 0RF lidocaine 5 % adhesive patch,medicated 1 patch topical DAILY Qty: 15 0RF Rx Instructions: leave on most painful area for up to 12 hrs naproxen 500 mg tablet 500 mg PO BID PRN (Reason: pain) Qty: 30 0RF cyclobenzaprine 5 mg tablet 5 mg PO TID PRN (Reason: muscle spasm) Qty: 14 0RF aspirin 81 mg tablet,delayed release (DR/EC) 81 mg PO DAILY (DME) lancets [TRUEplus Lancets] 33 gauge misc See Rx Instructions Not Applicable TID Qty: 100 Rx Instructions: As directed (DME) FreeStyle Lite Strips Strip See Rx Instructions Not Applicable TID Qty: 10 Rx Instructions: As directed omeprazole 20 mg capsule,delayed release(DR/EC) 20 mg PO DAILY cetirizine 10 mg tablet 10 mg PO QAM 30 Days Qty: 30 10RF fluticasone propionate 50 mcg/actuation spray,suspension 2 spray intranasal DAILY 30 Days Qty: 15.8 11RF albuterol sulfate [ProAir HFA] 90 mcg/actuation HFA aerosol inhaler 2 puff inhalation Q6H PRN (Reason: Wheezing) 30 Days Qty: 8.5 11RF [place] Saline 0.65 % aerosol,spray 2 spray intranasal Q4H PRN (Reason: dry nasal passages) 30 Days Qty: 50 11RF tadalafil [Cialis] 10 mg tablet 10 mg PO DAILY 90 Days Qty: 90 1RF Rx Instructions: Take daily for prostate terazosin 5 mg capsule 5 mg PO BEDTIME 90 Days Qty: 90 1RF atorvastatin 40 mg tablet PO chlorthalidone 25 mg tablet PO montelukast [Singulair] 10 mg tablet 10 mg PO BEDTIME 30 Days Qty: 30 11RF Print Language: Kazakh
[2023-12-16 20:26] VITALS: BP 179/77
[2023-12-16] MEDS: Cyclobenzaprine HCl 5 MG TABLET PO (20:26)
[2023-12-16] MEDS: lisinopriL 40 MG TABLET PO (20:26)
[2023-12-16] MEDS: Ketorolac Tromethamine 30 MG/ML VIAL IM (20:27)
[2023-12-16] MEDS: Lidocaine 4 % Patch ADH..PATCH 1 PATCH TRANSDERMA (20:28)
[2023-12-16 21:44] VITALS: BP 179/77; PULSE 60; RESP 18; TEMP 36.6; O2SAT 98
== END 2023-12-16 21:45 | disposition home or self-care (01) ==
PROVIDERS: Emergency Provider Emergency Medicine Emergency Medical Services; PCP Family Medicine
DX: M54.50 Low back pain, unspecified (principal); E11.9 Type 2 diabetes mellitus without complications; I10 Essential (primary) hypertension; E78.5 Hyperlipidemia, unspecified; Z79.899 Other long term (current) drug therapy
CPT/HCPCS: 96372; 99283; 99284; J1885

== ENCOUNTER 2024-01-24 09:58 | Outpatient (REF) | payer OTHER, SELFPAY ==
--- NOTE | ~2024-01-24 | CT_ITS ---
EXAMINATION: CT CHEST WITHOUT CONTRAST CLINICAL INFORMATION: Follow up pulmonary nodules. COMPARISON: CT chest 08/09/2022. TECHNIQUE: Multidetector volumetric CT imaging of the chest was done. Axial MIP volume rendering provided. Sagittal and coronal reformatted images were obtained. This CT examination was performed using dose optimization techniques as appropriate, variously including the following: *Automated exposure control *Adjustment of mA and/or kV according to patient size (this includes techniques or standardized protocols for targeted exams where dose is matched to indication/reason for exam; i.e. extremities or head) *Use of iterative reconstruction technique DLP: 195 mGy-cm FINDINGS: LUNGS: Again noted innumerable mixed calcified and noncalcified pulmonary nodules largest in the left lower lobe measuring 6 mm (image 295 series 5), not significantly changed compared to most recent CT chest from 08/09/2022. MEDIASTINUM: Normal heart size. No pericardial effusion. No mediastinal lymphadenopathy. Normal appearance of the thyroid gland. CORONARY ARTERY CALCIFICATION: Coronary artery calcifications are present. PLEURA: No pleural effusion or pneumothorax. AXILLA: No axillary lymphadenopathy. Stable symmetric gynecomastia. UPPER ABDOMEN: No significant abnormality in this limited noncontrast examination. OSSEOUS STRUCTURES: No acute or aggressive appearing osseous findings. Degenerative changes of the spine. CT/CT chest wo IV con IMPRESSION: Redemonstration of innumerable mixed calcified and noncalcified pulmonary nodules, not significantly changed compared to most recent CT chest from 08/09/2022, largest measuring 6 mm. According to the UPDATED 2017 Fleischner Society recommendations, the advised follow-up imaging for multiple solid nodules measuring up to 6-8 mm is follow-up CT at 3 to 6 months. In high-risk patients, subsequent CT follow-up at 18 to 24 months is recommended. In low-risk patients, subsequent CT follow-up at 18 to 24 months is optional.
== END 2024-01-24 09:59 | disposition home or self-care (01) ==
LOC: HO.CT 09:58
PROVIDERS: PCP Family Medicine; Visit Provider Hospitalist
DX: R91.8 Other nonspecific abnormal finding of lung field (principal)
CPT/HCPCS: 71250

== ENCOUNTER 2024-02-09 14:17 | Outpatient (AMB) | payer OTHER, SELFPAY ==
--- NOTE | 2024-02-09 14:27 | MHC.OFFVIS ---
Vital Signs 02/09/24 14:39 Height 5 ft 6 in Weight 200 lb BMI 32.3 Pulse 88 Pulse Source Pulse Oximeter Pulse Oximetry (%) 97 Oxygen Delivery Method Room Air Intake Visit Reasons: Asthma Rubber Down Required: No Allergies amoxicillin [AMOXICILLIN] Allergy (Severe, Verified 02/09/24 14:40) ANAPHYLAXIS Penicillins Allergy (Severe, Verified 02/09/24 14:40) UNKNOWN REACTION-CHILDHOOD doxycycline [From VIBRAMYCIN] Adverse Reaction (Mild, Verified 02/09/24 14:40) DIARRHEA Clindamycin HCl Allergy (Severe, Uncoded 02/09/24 14:40) Anaphylaxis HPI Comments Details: Pleasant 58-year-old gentleman who is here for follow-up. He has background history of atypical chest pain for which he underwent stress testing in the past with was normal. He also had echocardiography which did not show any significant pathology. He is presenting now for follow-up because he has been experiencing palpitations. These happen almost every night. When he is lying on his side he feels his heart is racing and he can feel the heartbeat in his ear. Sometimes it is fast. He is worried about AFib. He has no significant chest pains at this point. He did not take his blood pressure medications today. His blood pressure is elevated today. 09/25/2020 the patient has a telephone visit. He has been complaining of further nasal congestion and sinus tenderness. Moderate severity. Significant cough postnasal drip related. Has a hard time sleeping at nighttime because the discomfort. He did undergo a CT scan of the chest that was personally by me. Appears to have stable pulmonary nodules. Will continue monitoring the nodules on a yearly basis for couple years to ensure stability. Patient also needs to be followed up by ENT due to the fact that he has nasal polyposis and his nasal issue will continue to be recurrent and progressive. 08/02/2021 the patient is here for a pulmonary sick visit. Apparently he was evaluated about a week ago with nasal congestion and sinus discomfort. He was placed on azithromycin. he did have partial improvement of the symptoms. But still having sinus discomfort and fullness and discomfort. The drainage has decreased in amount. Patient does have significant swelling of the nasal passages. In the meantime he also underwent a CT scan of the chest around the same time because of the pulmonary nodules. At least I could review the images with him and reassured him that he does not have any active lower respiratory infection. His pulmonary nodules are indeed stable which is reassuring. He will require CT scan in a year's time. We will treat him again for this subacute sinusitis with the hope of improving his symptoms. 08/15/2022 the patient is here for a pulmonary follow-up visit. The patient is doing well from a respiratory status. He does have a cough intermittently. Usually associated with a postnasal drip. Moderate severity. He does have allergy medicines and also nasal sprays but he has not been using it. His major issue is the neck pain and now shoulder discomfort. He does have significant osteoarthritis of the left shoulder. Has a hard time turning his neck. From a respiratory standpoint he does have a rescue inhaler but he does not use it. Typically his asthma is exacerbated by a he respiratory illness. Denies any significant allergies. He does have underlying pulmonary nodules. The patient did have a repeat CAT scan about a week ago which we personally reviewed in the office. The patient does have stable pulmonary nodules at this time. There subcentimeter in size and do not appear concerning. Therefore, since the pulmonary nodules have been stable now for 2 years no further imaging studies warranted. Will reassess in a year to see additional studies have required if he is having any ongoing symptoms. 06/09/2023 the patient is here for a pulmonary follow-up visit. He is complaining about worsening nasal congestion. Moderate severity. Has a hard time breathing through his nose and has a postnasal drip. He attributes this to his rugs in the apartment. Feels like they are causing him to have significant worsening sinusitis and rhinitis in addition to his asthma. He is asking for the rugs to be removed. At this point we can just request allergy testing and see if he is allergic to any dust mites or any mold that could be in better in the rugs. If he does have underlying allergies then be reasonable to request replaced on the rugs otherwise patient could just use the HEPA filter vacuum. The patient is doing well from the asthma standpoint. He has not had to use his rescue inhaler. Although does have significant sinusitis at this time so therefore will treat him for the sinusitis at this time. 09/15/2023 the patient is here for a pulmonary follow-up visit. The patient has been having good and bad days. Complains of significant nasal congestion. He does have the history of nasal polyps. He feels like being his apartment with the rugs make his breathing much worse. He has a studio apartment. We did do the allergy testing although no significant allergies were noted. Still he is still very uncomfortable and complaining that the rugs are bothering him. I did provide him with a letter if they can be removed safely then that would be a good option. He will have to work with his landlord for that. In the meantime the patient continues with current respiratory therapy. His breathing has been stable. He is still dealing with significant neck discomfort. The patient also had a CT scan last done back in July 2022 demonstrating an 8 mm pulmonary nodule. Based on the size which go ahead and repeat a CT scan before the next visit. 02/09/2024 the patient is here for a pulmonary follow-up visit. He is complaining significant sinus congestion and pressure. His ears are plugged as well. He has a hard time with the nasal obstruction. His respiratory and nasal therapy has not been helpful. The patient having significant issues with allergies as well. Although, we have done allergy testing in the past and was really on inconclusive. He did have a CT scan of the chest which we personally reviewed demonstrating no significant change in the 8 mm pulmonary nodule she is reassuring. Although the CT scan has not been officially read yet. If the CT scans any different outlet no otherwise follow-up with a repeat CT scan in a year's time. COUNT INCLUDES THE [facility] Medical History GERD (gastroesophageal reflux disease) Orchialgia Weak urinary stream Asthma Nasal polyps Diabetes HTN (hypertension) Pulmonary nodules Surgical History History of esophagogastroduodenoscopy (EGD) Hx of colonoscopy H/O wrist surgery Family History Father Diabetes Hypertension Mother Hypertension Hyperlipidemia Brother Hypertension Family/Other Kidney stones Prostate cancer Bladder cancer Renal cancer Social History Alcohol intake: former Patient Tobacco Use Status: Former Tobacco user Tobacco use type: Cigarette Years Smoked: 30 years Review of Systems Const Denies fatigue, Denies fever(s), Denies night sweats, Denies poor appetite and Denies weight loss ENT Reports Normal hearing present, Denies dental pain, Denies dysphagia, Denies hearing loss, Denies mouth pain, Reports nasal congestion, Reports nasal discharge, Reports nasal obstruction, Denies odynophagia, Reports sinus pain and Reports sinus pressure Card Reports no additional complaints, Denies dyspnea and Denies dyspnea on exertion Resp Denies chest congestion, Reports cough, Denies dyspnea, Denies dyspnea on exertion and Denies wheezing GI Denies abdominal pain, Denies melena, Denies bloating, Reports hematochezia, Denies constipation, Denies GI cramping, Denies dysphagia, Denies excessive flatus, Denies early satiety, Reports heartburn, Denies diarrhea, Denies nausea, Denies odynophagia, Denies vomiting and Denies hematemesis Skin/Breast Denies pruritus, Denies lesions, Denies rash and Denies jaundice Neuro Reports Normal hearing present and Denies Abnormal speech present Endo Denies fatigue Aller/Immun Denies wheezing Physical Exam Vital Signs: Last Vital Signs Pulse 88 02/09/24 14:39 Pulse Ox 97 02/09/24 14:39 Oxygen Delivery Method Room Air 02/09/24 14:39 BMI result Body Mass Index 32.3 Const General: no acute distress and well developed HEENT Head: Yes normocephalic and Yes atraumatic General nose exam: Abnormal mucous membranes and turbinates present erythematous Eyes Pupils: Equal, round and reactive pupils present Neck Neck: Yes normal visual inspection and Yes no lymphadenopathy Chest Chest palpation & inspection: normal inspection of the chest Resp Effort & Inspection: normal respiratory effort and able to speak in complete sentences Auscultation: clear to auscultation bilaterally Cardio Rate: regular rate Rhythm: regular rhythm GI Palpation (GI): Soft to palpation Skin General skin exam: no rashes or lesions noted Neuro Cranial nerves: Yes Equal, round and reactive pupils present and Yes Normal hearing present Speech: No Abnormal speech present Extrem General: No clubbing, No cyanosis and No edema Psych Appearance: well kempt Attitude: cooperative Assessment & Plan Assessment & Plan (1) Nasal polyps: Code(s): J33.9 - Nasal polyp, unspecified Category: Medical (2) Pulmonary nodules: Code(s): R91.8 - Other nonspecific abnormal finding of lung field Category: Medical (3) Asthma: Code(s): J45.909 - Unspecified asthma, uncomplicated Category: Medical Qualifiers: Asthma complication type: uncomplicated Asthma persistence: persistent Asthma severity: moderate Qualified Code(s): J45.40 - Moderate persistent asthma, uncomplicated (4) Sinusitis: Code(s): J32.9 - Chronic sinusitis, unspecified Category: Medical Qualifiers: Sinusitis location: unspecified location Chronicity: acute Recurrence: recurrent Qualified Code(s): J01.91 - Acute recurrent sinusitis, unspecified Plan WAI as needed Continue nasal therapy wtih flonase and nasal rinsing continue zyrtec continue singulair Continue WAI as needed CT chest to assess 8mm nodule f/u 1 y start Bactrim start Prednisone low dose F/U in 6 months Orders: Orders CT chest wo IV con 1 Year R91.8 - Other nonspecific abnormal finding of lung field Medications: New sulfamethoxazole-trimethoprim 800-160 mg (Bactrim DS) 1 tab PO Q12H 10 days 20 tabs 0RF prednisone orally daily; 2 tabs daily x 5 days, then 1 tab daily x 5 days 15 days 15 tabs 0RF Coding Level of Care Code Est Pt Level 4 (81446) Diagnoses Nasal polyps J33.9 Pulmonary nodules R91.8 Moderate persistent asthma without complication J45.40 Asthma complication type: uncomplicated Asthma persistence: persistent Asthma severity: moderate Acute recurrent sinusitis, unspecified location J01.91 Sinusitis location: unspecified location Chronicity: acute Recurrence: recurrent Time Spent (min) 17
[2024-02-09 14:39] VITALS: PULSE 88; O2SAT 97; BMI 32.3
== END 2024-02-09 14:57 | disposition home or self-care (01) ==
PROVIDERS: PCP Family Medicine; Visit Provider Hospitalist
DX: J33.9 Nasal polyp, unspecified (principal); R91.8 Other nonspecific abnormal finding of lung field; J45.40 Moderate persistent asthma, uncomplicated; J01.91 Acute recurrent sinusitis, unspecified
CPT/HCPCS: 99214

== ENCOUNTER → 2024-02-09 14:17 | Outpatient (BNVA) | payer OTHER, SELFPAY | PROVIDERS: PCP Family Medicine; Visit Provider Hospitalist | DX: J45.40 Moderate persistent asthma, uncomplicated (principal); J33.9 Nasal polyp, unspecified; R91.8 Other nonspecific abnormal finding of lung field; J01.91 Acute recurrent sinusitis, unspecified | CPT/HCPCS: 99212 ==

== ENCOUNTER 2024-03-22 08:52 | Outpatient (AMB) | payer OTHER, SELFPAY ==
--- NOTE | 2024-03-22 08:41 | A.OFFVIS_ITS ---
Intake Visit Reasons: 6m follow up Intake Note: Patient is present for Follow Up Urology Medications: Terazosin,Tadalafil Blood Thinner: Aspirin Record Center Coordinator Required: No Accompanied by: Self / Same As Patient Allergies amoxicillin [AMOXICILLIN] Allergy (Severe, Verified 03/22/24 08:43) ANAPHYLAXIS Penicillins Allergy (Severe, Verified 03/22/24 08:43) UNKNOWN REACTION-CHILDHOOD doxycycline [From VIBRAMYCIN] Adverse Reaction (Mild, Verified 03/22/24 08:43) DIARRHEA Clindamycin HCl Allergy (Severe, Uncoded 03/22/24 08:43) Anaphylaxis Medication List - Last Reconciled 03/22/24 by Kishore Dorsey MD acetaminophen (Tylenol Extra Strength) 1,000 mg (2 x 500 mg) PO Q6H PRN albuterol sulfate 90 mcg/actuation (ProAir HFA) 2 puffs inhalation Q6H PRN 30 days amlodipine 10 mg PO DAILY aspirin 81 mg PO DAILY atorvastatin mg PO blood sugar diagnostic (FreeStyle Lite Strips) As directed [id number] 50-300-40 mg (Fioricet) 1 cap PO Q8H PRN cetirizine 10 mg PO QAM 30 days chlorthalidone mg PO cyclobenzaprine 5 mg PO TID PRN famotidine 40 mg PO DAILY PRN fluticasone propionate 50 mcg/actuation 2 sprays intranasal DAILY 30 days hydroxyzine HCl 25 mg PO QID ibuprofen 400 mg PO TID PRN lancets (TRUEplus Lancets) As directed lidocaine 5% 1 patch topical DAILY lisinopril 40 mg PO DAILY montelukast (Singulair) 10 mg PO BEDTIME 30 days morphine ER 15 mg PO Q6H PRN naproxen 500 mg PO BID PRN omeprazole 20 mg PO DAILY prednisone orally daily; 2 tabs daily x 5 days, then 1 tab daily x 5 days 15 days sodium chloride 0.65% ([place] Saline) 2 sprays intranasal Q4H PRN 30 days sulfamethoxazole-trimethoprim 800-160 mg (Bactrim DS) 1 tab PO Q12H 10 days sumatriptan succinate take 1 tab at onset of headache; if no relief may repeat 1 tab after at least 2 hrs; max = 4 tabs/24 hr tadalafil (Cialis) 10 mg PO DAILY 90 days terazosin 5 mg PO BEDTIME 90 days trazodone 50 mg PO BEDTIME HPI Comments Details: Bobby is a very pleasant male. He is a patient of Dr Frankel. He is seen in the office today for the following urologic conditions. - lower urinary tract symptoms - erectile dysfunction Telemedicine Evaluation 15 min Consultation Mingly Naye Video Six-month follow-up Cialis 10 mg daily with terazosin 5 mg Was not taking Cialis every day Needs to take daily to optimize erectile activity Check in office in 6 months with testosterone and PSA Erectile dysfunction background type 2 diabetes Progressive 09/19 response to high-dose daily Cialis Lower Urinary Tract Symptoms:? Current visit is for?further evaluation of, lower urinary tract symptoms, predominate obstructive symptoms ?- less nocturia.? Current treatment includes?medication, alpha jesus - tamsulosin 0.4 mg ? Symptoms include?09/16 , weak stream, straining, and are progressing ?10/17 improved stream Labs - 07/17 0.9, 09/20 0.9 ? Associated conditions? diabetes ?Yes ? erectile dysfunction ?Yes ? Treatment plan?daily tadalafil medications.? PFSH Medical History GERD (gastroesophageal reflux disease) Orchialgia Weak urinary stream Asthma Nasal polyps Diabetes HTN (hypertension) Pulmonary nodules Surgical History History of esophagogastroduodenoscopy (EGD) Hx of colonoscopy H/O wrist surgery Family History Father Diabetes Hypertension Mother Hypertension Hyperlipidemia Brother Hypertension Family/Other Kidney stones Prostate cancer Bladder cancer Renal cancer Social History Alcohol intake: former Patient Tobacco Use Status: Former Tobacco user Tobacco use type: Cigarette Years Smoked: 30 years Review of Systems Const All systems reviewed & are unremarkable except as noted in HPI and below Reports no additional complaints Resp Reports no additional complaints GI Reports no additional complaints Reports as per HPI Musc Reports no additional complaints Physical Exam Telemedicine evaluation Appropriate responses Regular breathing rate and rhythm HEENT Head: Yes normal to inspection Ears: hearing grossly normal bilaterally Eyes General: appearance normal, both eyes and all related structures Neck Neck: Yes normal visual inspection Chest Chest palpation & inspection: normal inspection of the chest Resp Effort & Inspection: normal respiratory effort and able to speak in complete sentences Telehealth Telehealth Telehealth Platform: Mingly Location of provider rendering services: practice address Location of patient: address on file Patient Identification confirmed using: Name, : Yes Telehealth method: video Patient verbally consented to treatment: Yes Patient verbally consented to billing insurance company: Yes Patient informed of any privacy concerns related to visit: Yes Minutes spent on Phone/Video with Pt.: 15 Assessment & Plan Assessment & Plan (1) BPH w urinary obs/LUTS: Code(s): N40.1 - Benign prostatic hyperplasia with lower urinary tract symptoms; N13.8 - Other obstructive and reflux uropathy Category: Medical (2) Nocturia more than twice per night: Code(s): R35.1 - Nocturia Category: Medical (3) Erectile dysfunction associated with type 2 diabetes mellitus: Code(s): E11.69 - Type 2 diabetes mellitus with other specified complication; N52.1 - Erectile dysfunction due to diseases classified elsewhere Category: Medical Plan Six-month follow-up labs Orders: Orders Testosterone, Total 6 Months E11.69 - Type 2 diabetes mellitus with other specified complication, N52.1 - Erectile dysfunction due to diseases classified elsewhere Prostate Specific Antigen 6 Months E11.69 - Type 2 diabetes mellitus with other specified complication, N52.1 - Erectile dysfunction due to diseases classified elsewhere Patient Instructions: Imaging studies, laboratory and physical exam results were discussed and reviewed in detail. No major barriers to patient understanding were identified. An opportunity to ask questions regarding the treatment plan was provided. All questions were answered. The patient expressed understanding and agreement with the above treatment plan. The patient is aware they should contact our office by phone for worsening of their current condition or the appearance of new urologic symptoms. Compliance is encouraged with any medications and followup testing that is ordered. It is a privilege to participate in the urologic care of your patient. If you have any questions or concerns regarding treatment for the above conditions, or other urologic issues, please do not hesitate to contact me. The office tel ephone contact is [phone]. This note is constructed using voice recognition software. While every effort has been made to ensure accuracy shower doors and panels fabricator errors may have been included. Yours sincerely, Dr Kishore Dorsey MD, [facility] - Urology Providers of Expert, Compassionate Care for the Genitourinary System Coding Level of Care Code Tele Est Pt Level 4 (58817) Diagnoses BPH w urinary obs/LUTS N40.1; N13.8 Nocturia more than twice per night R35.1 Erectile dysfunction associated with type 2 diabetes mellitus E11.69; N52.1
== END 2024-03-22 09:51 | disposition home or self-care (01) ==
LOC: HO.HUSH 08:52
PROVIDERS: PCP Family Medicine; Visit Provider Urology
DX: N40.1 Benign prostatic hyperplasia with lower urinary tract symptoms (principal); N13.8 Other obstructive and reflux uropathy; R35.1 Nocturia; E11.69 Type 2 diabetes mellitus with other specified complication; N52.1 Erectile dysfunction due to diseases classified elsewhere
CPT/HCPCS: 99214

== ENCOUNTER → 2024-03-22 08:52 | Outpatient (BNVA) | payer OTHER, SELFPAY | PROVIDERS: PCP Family Medicine; Visit Provider Urology ==

== ENCOUNTER 2024-03-26 11:41 | Emergency (ER) | payer OTHER, SELFPAY ==
[2024-03-26 12:17] VITALS: BP 95/52; PULSE 87; RESP 16; TEMP 36.6; O2SAT 97; BMI 29.4
--- NOTE | 2024-03-26 12:20 | ED_ITS ---
HPI - URI/Sore Throat General Chief Complaint: Upper Respiratory Symptoms Stated Complaint: Congestion, headache Time Seen by Provider: 03/26/24 12:26 Source: patient Mode of arrival: ambulatory Limitations: no limitations History of Present Illness ED Provider: Violette Mcnulty PA-C HPI Narrative: 58 y/o male with history of asthma, seasonal allergies, chronic sinus issues since 2020 who presents to the ER for evaluation of acute on chronic maxillary sinus pressure and pain. He reports recently taking 1/2 a course of abx he had left over with brief improvement in the pain. No fever or chills. He has a frontal headache. He intermittently uses flonase. He is not on any other allergy medication. He denies SOB or chest pain. No cough but he does have post nasal drip. He states his nasal discharge is clear and sometimes yellow. MD elicited complaint: sinus pain Pertinent past history: asthma Onset (ago): week(s) Consistency: progressively worsening Severity: moderate Description of mucous: clear and yellow Able to tolerate fluids by mouth: Yes Exacerbating factors: supine positioning Associated symptoms: rhinorrhea and nasal congestion Treatments prior to arrival: none Related Data Home Medications ?Medication ?Instructions ?Recorded ?Confirmed aspirin 81 mg tablet,delayed 81 mg PO DAILY 08/04/20 03/22/24 release blood sugar diagnostic (FreeStyle #10 ea 06/22/21 03/22/24 Lite Strips) lancets 33 gauge (TRUEplus Lancets) #100 ea 06/22/21 03/22/24 omeprazole 20 mg capsule,delayed 20 mg PO DAILY 08/15/22 03/22/24 release atorvastatin 40 mg tablet mg PO 06/09/23 03/22/24 chlorthalidone 25 mg tablet mg PO 06/09/23 03/22/24 hydroxyzine HCl 25 mg tablet 25 mg PO QID 02/09/24 03/22/24 trazodone 50 mg tablet 50 mg PO BEDTIME 02/09/24 03/22/24 Previous Rx's ?Medication ?Instructions ?Recorded albuterol sulfate 90 mcg/actuation 2 puff inhalation Q6H PRN Wheezing 08/15/22 aerosol inhaler (ProAir HFA) 30 days #8.5 grams cetirizine 10 mg tablet 10 mg PO QAM 30 days #30 tabs 08/15/22 fluticasone propionate 50 2 spray intranasal DAILY 30 days 08/15/22 mcg/actuation nasal #15.8 mL spray,suspension sodium chloride 0.65 % nasal spray 2 spray intranasal Q4H PRN dry 08/15/22 aerosol (Frierson Saline) nasal passages 30 days #50 mL [id number]-pebikphxkfzbb-[id number] 1 cap PO Q8H PRN pain #5 caps 03/04/23 50 mg-300 mg-40 mg capsule (Fioricet) famotidine 40 mg tablet 40 mg PO DAILY PRN for heartburn 03/07/23 #90 tabs montelukast 10 mg tablet 10 mg PO BEDTIME 30 days #30 tabs 06/09/23 (Singulair) amlodipine 10 mg tablet 10 mg PO DAILY #90 tabs 06/21/23 lisinopril 40 mg tablet 40 mg PO DAILY #90 tabs 06/21/23 sumatriptan succinate 50 mg tablet See Rx Instructions PO .COMPLEX 08/07/23 #10 tabs tadalafil 10 mg tablet (Cialis) 10 mg PO DAILY sexual activity 90 09/20/23 days #90 tabs terazosin 5 mg capsule 5 mg PO BEDTIME 90 days #90 caps 09/20/23 cyclobenzaprine 5 mg tablet 5 mg PO TID PRN muscle spasm #14 11/23/23 tabs lidocaine 5 % topical patch 1 patch topical DAILY #15 ea 11/23/23 naproxen 500 mg tablet 500 mg PO BID PRN pain #30 tabs 11/23/23 acetaminophen 500 mg tablet 1,000 mg (2 x 500 mg) PO Q6H PRN 12/16/23 (Tylenol Extra Strength) fever or pain #20 tabs ibuprofen 400 mg tablet 400 mg PO TID PRN fever or pain 12/16/23 #30 tabs morphine 15 mg tablet,extended 15 mg PO Q6H PRN pain #10 tabs 12/16/23 release prednisone 5 mg tablet See Rx Instructions PO DAILY 15 02/09/24 days #15 tabs sulfamethoxazole 800 1 tab PO Q12H 10 days #20 tabs 02/09/24 mg-trimethoprim 160 mg tablet (Bactrim DS) azithromycin 250 mg tablet See Rx Instructions PO .COMPLEX #6 03/26/24 (Zithromax Z-Aashish) tabs cetirizine 10 mg tablet (Zyrtec) 10 mg PO DAILY #30 tabs 03/26/24 Allergies Allergy/AdvReac Type Severity Reaction Status Date / Time amoxicillin [AMOXICILLIN] Allergy Severe ANAPHYLAXIS Verified 03/26/24 12:22 Penicillins Allergy Severe UNKNOWN Verified 03/26/24 12:22 REACTION-CHILDHOOD doxycycline [From VIBRAMYCIN] AdvReac Mild DIARRHEA Verified 03/26/24 12:22 Clindamycin HCl Allergy Severe Anaphylaxis Uncoded 03/22/24 08:43 Review of Systems Review of Systems: Yes all other systems are reviewed and are negative [facility] Past Medical History Medical History GERD (gastroesophageal reflux disease) Orchialgia Weak urinary stream Asthma Nasal polyps Diabetes HTN (hypertension) Pulmonary nodules Surgical History History of esophagogastroduodenoscopy (EGD) Hx of colonoscopy H/O wrist surgery Family History Family History Father Diabetes Hypertension Mother Hypertension Hyperlipidemia Brother Hypertension Family/Other Kidney stones Prostate cancer Bladder cancer Renal cancer Social History Social History Alcohol intake: former Patient Tobacco Use Status: Former Tobacco user Tobacco use type: Cigarette Years Smoked: 30 years Advance Directives: No Physical Exam Vital Signs: Vital Signs: Last Vital Signs Temp 97.8 F 03/26/24 12:17 Pulse 87 03/26/24 12:17 Resp 16 03/26/24 12:17 BP 95/52 L 03/26/24 12:17 Pulse Ox 97 03/26/24 12:17 O2 Del Method Room Air 03/26/24 12:17 BMI result Body Mass Index 29.4 Appearance: Alert. Oriented X3. No acute distress. HEENT: normocephalic, atraumatic, face is symmetric. nares are slightly erythematous. +maxillary tenderness bilaterally. +nasal congestion, clear. normal oropharynx, no tonsillar swelling or exudate. CVS: Normal heart rate and rhythm. Pulses normal. Respiratory: No respiratory distress. Skin: Skin warm and dry. Normal skin color. Normal skin turgor. No rashes. Extremities: normal inspection x4 Neuro: Oriented X 3. grossly normal, nonfocal Medical Decision Making Medical Decision Making MDM Narrative: 58 yo male presenting with acute on chronic sinus pain. chart reviewed - he has c/o sinus pressure for at least 3 years at pulmonary appointment. he saw ENT years ago but nothing recently exam is c/w maxillary sinus tenderness, will treat for acute infection, refer to ENT. counseled to continue flonase and start zyrtec. stable for d/c home with outpatient follow up. Differential Diagnosis Differential Diagnoses: The differential diagnosis associated with the presentation includes acute sinusitis, allergic sinusitis, chronic sinusitis, fungual sinusitis External Record Review External record reviewed: Outpatient record and Prior outpatient labs Tests considered The following testing was considered but not selected: sinus CT Prescription Management I considered prescription management with: Pain Medication and Antibiotic Chronic Conditions Patient?s care impacted by: Hypertension Critical Care Time Critical Care Time Critical Care Time: No Discharge Plan Discharge Clinical Impression: Sinusitis Patient Disposition: Home, Self-Care Instructions: Sinusitis (ED) Additional Instructions: Take the prescribed antibiotics as directed, complete the entire course and do not miss any doses Use Flonase every day Take the prescribed Zyrtec every day Recommend Netti Pot / sinus rinses using bottled water Recommend following up with Ear, Nose Throat specialist - call for an appointment If you develop new or worsening symptoms call 911 or come back to the ER for further evaluation. Prescriptions: New azithromycin [Zithromax Z-Aashish] 250 mg tablet See Rx Instructions .ROUTE .COMPLEX Qty: 6 0RF Rx Instructions: take 500 mg today (day 1), then 250 mg for 4 days (days 2-5) cetirizine [Zyrtec] 10 mg tablet 10 mg PO DAILY Qty: 30 0RF No Action famotidine 40 mg tablet 40 mg PO DAILY PRN (Reason: for heartburn) Qty: 90 4RF amlodipine 10 mg tablet 10 mg PO DAILY Qty: 90 3RF lisinopril 40 mg tablet 40 mg PO DAILY Qty: 90 3RF sumatriptan succinate 50 mg tablet See Rx Instructions .ROUTE .COMPLEX Qty: 10 0RF Rx Instructions: take 1 tab at onset of headache; if no relief may repeat 1 tab after at least 2 hrs; max = 4 tabs/24 hr [id number] [Fioricet] 50-300-40 mg capsule 1 cap PO Q8H PRN (Reason: pain) Qty: 5 0RF lidocaine 5 % adhesive patch,medicated 1 patch topical DAILY Qty: 15 0RF Rx Instructions: leave on most painful area for up to 12 hrs naproxen 500 mg tablet 500 mg PO BID PRN (Reason: pain) Qty: 30 0RF cyclobenzaprine 5 mg tablet 5 mg PO TID PRN (Reason: muscle spasm) Qty: 14 0RF acetaminophen [Tylenol Extra Strength] 500 mg tablet 1,000 mg PO Q6H PRN (Reason: fever or pain) Qty: 20 0RF ibuprofen 400 mg tablet 400 mg PO TID PRN (Reason: fever or pain) Qty: 30 0RF morphine 15 mg tablet extended release 15 mg PO Q6H PRN (Reason: pain) Qty: 10 0RF Rx Instructions: Partial Fill upon patient request. aspirin 81 mg tablet,delayed release (DR/EC) 81 mg PO DAILY (DME) lancets [TRUEplus Lancets] 33 gauge misc See Rx Instructions Not Applicable TID Qty: 100 Rx Instructions: As directed (DME) FreeStyle Lite Strips Strip See Rx Instructions Not Applicable TID Qty: 10 Rx Instructions: As directed omeprazole 20 mg capsule,delayed release(DR/EC) 20 mg PO DAILY cetirizine 10 mg tablet 10 mg PO QAM 30 Days Qty: 30 10RF fluticasone propionate 50 mcg/actuation spray,suspension 2 spray intranasal DAILY 30 Days Qty: 15.8 11RF albuterol sulfate [ProAir HFA] 90 mcg/actuation HFA aerosol inhaler 2 puff inhalation Q6H PRN (Reason: Wheezing) 30 Days Qty: 8.5 11RF Frierson Saline 0.65 % aerosol,spray 2 spray intranasal Q4H PRN (Reason: dry nasal passages) 30 Days Qty: 50 11RF tadalafil [Cialis] 10 mg tablet 10 mg PO DAILY 90 Days Qty: 90 1RF Rx Instructions: Take daily for prostate terazosin 5 mg capsule 5 mg PO BEDTIME 90 Days Qty: 90 1RF atorvastatin 40 mg tablet PO chlorthalidone 25 mg tablet PO montelukast [Singulair] 10 mg tablet 10 mg PO BEDTIME 30 Days Qty: 30 11RF hydroxyzine HCl 25 mg tablet 25 mg PO QID trazodone 50 mg tablet 50 mg PO BEDTIME sulfamethoxazole-trimethoprim [Bactrim DS] 800-160 mg tablet 1 tab PO Q12H 10 Days Qty: 20 0RF prednisone 5 mg tablet See Rx Instructions PO DAILY 15 Days Qty: 15 0RF Rx Instructions: orally daily; 2 tabs daily x 5 days, then 1 tab daily x 5 days Referrals: Ashley Frankel MD [Primary Care Provider] - Fuad Huber [Physician] - (chronic sinusitis ) Discharge Date/Time: 03/26/24 12:40 Print Language: Occitan
== END 2024-03-26 12:40 | disposition home or self-care (01) ==
PROVIDERS: Emergency Provider Emergency Medicine; PCP Family Medicine
DX: J32.9 Chronic sinusitis, unspecified (principal); R09.81 Nasal congestion; R51.9 Headache, unspecified; J45.909 Unspecified asthma, uncomplicated; Z79.899 Other long term (current) drug therapy
CPT/HCPCS: 99281

== ENCOUNTER 2024-06-06 08:51 | Outpatient (AMB) | payer OTHER, SELFPAY ==
[2024-06-06 08:55] VITALS: BP 185/88; PULSE 56; BMI 29.3
--- NOTE | 2024-06-06 08:55 | MHC.OFFVIS ---
Vital Signs 06/06/24 08:55 Height 5 ft 7 in Weight 187 lb 6.287 oz BMI 29.3 BP 185/88 H Blood Pressure Location Lt brachial Position Sitting Pulse 56 Intake Visit Reasons: s/p colonoscopy Intake Note: Patient presents to in office follow up s/p colonoscopy. CC: Patient reports sometimes having constipation and once in a while abd pain. Denies other GI concerns today. [employer] Professor Required: No Allergies amoxicillin [AMOXICILLIN] Allergy (Severe, Verified 06/06/24 08:59) ANAPHYLAXIS Penicillins Allergy (Severe, Verified 06/06/24 08:59) UNKNOWN REACTION-CHILDHOOD doxycycline [From VIBRAMYCIN] Adverse Reaction (Mild, Verified 06/06/24 08:59) DIARRHEA Clindamycin HCl Allergy (Severe, Uncoded 03/22/24 08:43) Anaphylaxis HPI HPI s/p colonoscopy: Details: Assessment & Plan (1) Pre-op examination: ?Code(s): Z01.818 - Encounter for other preprocedural examination ?Plan: The patient has been lost to follow-up since January of 2022. He tells me that he cancelled the colonoscopy.? This was because of a conflict with other medical care he was receiving at a time.? He no longer has the rectal bleeding, it resolved using OTC Prep H. He had some green stools that were r/t a vitamin he was taking. There are no prior problems with anesthesia or sedation. His asthma well controlled, he denies any cardiac problems.. No ID problems No know FHX of crc or polyps. (2) GERD (gastroesophageal reflux disease): ?Code(s): K21.9 - Gastro-esophageal reflux disease without esophagitis (3) Hard of hearing: ?Code(s): H91.90 - Unspecified hearing loss, unspecified ear ? ? ? Medications: New peg 3350-electrolytes 236-22.74-6.74 -5.86 gram (Golytely) ?? until fecal effluent is clear; do not exceed a total volume of 2,000 mL 240 mL? PO Q10M 1 day 4,000 mL 0RF Z12.11 - Encounter for screening for malignant neoplasm of colon COLONOSCOPY 04/06/23 Findings: Mucosa: Normal to cecum. Protruding lesions: Medium internal hemorrhoids without stigmata of recent bleeding. Excavated lesions: Scattered diverticulosis of sigmoid colon. Impression: 1. Normal colon mucosa 2. Diverticulosis 3. Internal hemorrhoids Recommendations: - Repeat colonoscopy in 10 years for asymptomatic colon cancer screening. TODAY'S VISIT The patient has been lost to follow-up since January of 2022. He is agreeable to a 10 year follow-up. The procedure was well tolerated. The results were explained and the patient is agreeable to the follow-up interval as stated. The bowel pattern has returned to normal. Education was provided to tell any 1st degree relatives about their findings to be sure that they are screened by age 45. Educated that they will be put on a recall list when it is time for their repeat scope but should they move out of state or away from the hospital they will need to remember along with their primary to repeat the procedure in a timely fashion to avoid any adverse complications. At this time he does not feel like he has any problems that he needs help with any has had no further bleeding. He only experiences occasional constipation. [facility] Medical History (Updated 06/06/24 @ 09:14 by CAIN Neville) Pre-op examination GERD (gastroesophageal reflux disease) Orchialgia Weak urinary stream Asthma Nasal polyps Diabetes HTN (hypertension) Pulmonary nodules Surgical History (Updated 06/06/24 @ 09:07 by CAIN Neville) History of esophagogastroduodenoscopy (EGD) Hx of colonoscopy H/O wrist surgery Family History Father Diabetes Hypertension Mother Hypertension Hyperlipidemia Brother Hypertension Family/Other Kidney stones Prostate cancer Bladder cancer Renal cancer Social History Alcohol intake: former Patient Tobacco Use Status: Former Tobacco user Tobacco use type: Cigarette Years Smoked: 30 years Review of Systems Const Denies fatigue, Denies fever(s), Denies night sweats, Denies poor appetite and Denies weight loss ENT Reports Normal hearing present, Denies dental pain, Denies dysphagia, Denies hearing loss, Denies mouth pain, Denies odynophagia, Denies throat swelling, Denies tongue swelling and Reports other (Dentition adequate) Card Reports no additional complaints Resp Reports no additional complaints GI Details: Denies abdominal pain, Denies melena, Denies bloating, Denies hematochezia, Reports constipation, Denies GI cramping, Denies dysphagia, Denies excessive flatus, Denies early satiety, Denies heartburn, Denies diarrhea, Denies nausea, Denies odynophagia, Denies vomiting and Denies hematemesis Skin/Breast Denies pruritus, Denies lesions, Denies rash and Denies jaundice Neuro Reports Normal hearing present and Denies Abnormal speech present Endo Denies fatigue Aller/Immun Denies throat swelling and Denies tongue swelling Physical Exam Vital Signs: Last Vital Signs Pulse 56 06/06/24 08:55 BP 185/88 H 06/06/24 08:55 BMI result Body Mass Index 29.3 Const General: cooperative, no acute distress, well developed and well groomed Nutritional Appearance: well nourished and overweight Orientation/consciousness: oriented to person, oriented to place and oriented to time Limitations: No language barrier HEENT Head: Yes normocephalic and Yes atraumatic Eyes General: appearance normal, both eyes and all related structures Pupils: Equal, round and reactive pupils present Neck Neck: Yes normal visual inspection and Yes no lymphadenopathy Thyroid: Thyroid normal Resp Effort & Inspection: normal respiratory effort and able to speak in complete sentences Auscultation: clear to auscultation bilaterally Cardio Rate: regular rate Rhythm: regular rhythm Heart sounds: Normal, physiologic split S2 sound present Peripheral pulses: radial pulses present and posterior tibial pulses present GI Inspection: No distended and No Abdominal panniculus present Palpation (GI): Soft to palpation, nontender, no guarding, not rigid and No hepatosplenomegaly present Percussion: Yes normal to percussion Auscultation: normal bowel sounds Rectal Exam - Male: Yes deferred Skin General skin exam: no rashes or lesions noted, turgor normal, skin not dry, no jaundice, No spider nevi and no striae Rashes: no rashes Nails: normal Neuro General: oriented to person, oriented to place and oriented to time Cranial nerves: Yes Equal, round and reactive pupils present and Yes Normal hearing present Speech: No Abnormal speech present Extrem General: Yes normal to inspection, No clubbing, No cyanosis and No edema Psych Appearance: grossly normal and well kempt Mental Status: mental status grossly normal Speech and movement: Normal speech and movement present Affect: normal affect Attitude: cooperative Thought process: Normal thought process present and not confabulating Thought content: Normal thought content present Insight: Fair insight present (Psych) Judgement: Fair judgement present (Psych) Assessment & Plan Assessment & Plan (1) Hx of colonoscopy: Comment: = negative study repeat in 10 years aeb Code(s): Z98.890 - Other specified postprocedural states Category: Surgical (2) Rectal bleeding: Comment: Moderate internal hemorrhoids Code(s): K62.5 - Hemorrhage of anus and rectum Category: Medical Plan The patient has been lost to follow-up since January of 2022. He is agreeable to a 10 year follow-up. The procedure was well tolerated. The results were explained and the patient is agreeable to the follow-up interval as stated. The bowel pattern has returned to normal. Education was provided to tell any 1st degree relatives about their findings to be sure that they are screened by age 45. Educated that they will be put on a recall list when it is time for their repeat scope but should they move out of state or away from the hospital they will need to remember along with their primary to repeat the procedure in a timely fashion to avoid any adverse complications. At this time he does not feel like he has any problems that he needs help with any has had no further bleeding. He only experiences occasional constipation Coding Level of Care Code Est Pt Level 3 (07453) Diagnoses Hx of colonoscopy Z98.890 Rectal bleeding K62.5
== END 2024-06-06 09:15 | disposition home or self-care (01) ==
PROVIDERS: PCP Family Medicine; Visit Provider Nurse Practitioner
DX: Z98.890 Other specified postprocedural states (principal); K62.5 Hemorrhage of anus and rectum
CPT/HCPCS: 99213

== ENCOUNTER → 2024-06-06 08:51 | Outpatient (BNVA) | payer OTHER, SELFPAY | PROVIDERS: PCP Family Medicine; Visit Provider Nurse Practitioner | DX: K21.9 Gastro-esophageal reflux disease without esophagitis (principal); K59.00 Constipation, unspecified; K62.5 Hemorrhage of anus and rectum; R10.9 Unspecified abdominal pain; Z98.890 Other specified postprocedural states | CPT/HCPCS: 99212 ==

== ENCOUNTER 2024-07-17 10:44 | Outpatient (REF) | payer OTHER, SELFPAY ==
[2024-07-17 11:53] LABS: Estimated Average Glucose 128 mg/dL; Hemoglobin A1C 162.8735 umol/L; Hemoglobin A1c % 6.1 % (<6.0); Total Hemoglobin (HGBA1C) 3810.1848 umol/L
[2024-07-17 12:35] LABS: Alanine Aminotransferase 15 U/L (0-40); Albumin Level 4.2 g/dL (3.5-5.0); Alkaline Phosphatase 96 U/L (39-117); Anion Gap 9 (12-20); Aspartate Amino Transferase 22 U/L (5-37); Bilirubin Direct 0.2 mg/dL (0.0-0.5); Bilirubin Total 0.8 mg/dL (0.0-1.0); Blood Urea Nitrogen 17 mg/dL (9-16); Calcium 9.3 mg/dL (8.4-10.2); Carbon Dioxide 30 mmol/L (22-29); Chloride 105 mmol/L (96-108); Cholesterol 185 mg/dL (<200); Estimated Glomerular Filt Rate > 60; Glucose Random 146 mg/dL (60-115); HDL Cholesterol 60 mg/dL (>40); LDL Cholesterol Calculated 110 mg/dL (<100); Potassium 3.7 mmol/L (3.3-5.1); Sodium 140 mmol/L (135-145); Total Protein 7.1 g/dL (6.5-8.0); Triglycerides 79 mg/dL (<150)
[2024-07-17 17:23] LABS: Creatinine Urine 105.58 mg/dL; Microalbum/Creatinine Ratio Ur 28.4 ug/mg cr (<30)
== END 2024-07-17 10:45 | disposition home or self-care (01) ==
LOC: HO.HHCL 10:44
PROVIDERS: Visit Provider Family Medicine
DX: E11.9 Type 2 diabetes mellitus without complications (principal)
CPT/HCPCS: 36415; 80048; 80061; 80076; 82043; 82570; 83036

== ENCOUNTER 2024-07-19 11:50 | Emergency (ER) | payer OTHER, SELFPAY ==
[2024-07-19] VITALS (7 sets, daily range): BP systolic 163–191; BP diastolic 82–102; PULSE 56–68; RESP 16; TEMP 36.1–36.6; O2SAT 98–99; BMI 31.3
--- NOTE | ~2024-07-19 | CT_ITS ---
EXAMINATION: CT HEAD WITHOUT CONTRAST CLINICAL INFORMATION: Headache, dizziness COMPARISON: Head CT 08/07/2023 TECHNIQUE: Contiguous axial imaging was performed from the skull base to vertex without intravenous administration of contrast. This CT examination was performed using dose optimization techniques as appropriate, variously including the following: *Automated exposure control *Adjustment of mA and/or kV according to patient size (this includes techniques or standardized protocols for targeted exams where dose is matched to indication/reason for exam; i.e. extremities or head) *Use of iterative reconstruction technique DLP: 746 mGy-cm FINDINGS: No intra-axial or extra-axial hemorrhage. No acute territorial infarct. Ventricles and sulci appear normal. 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 Preservation of grimes-white matter differentiation. No mass, mass effect, or midline shift. No fracture. Polypoid mucosal thickening in the inferior right maxillary sinus. The mastoid air cells and visualized paranasal sinuses are otherwise clear. CT/CT head/brain wo IV con IMPRESSION: No acute territorial infarct. Microangiopathic changes of the periventricular white matter appears chronic and similar. Electronically signed by: Damian Mendoza MD 07/19/2024 02:54 PM [facility]
--- NOTE | 2024-07-19 11:58 | ED_ITS ---
HPI - General Adult General Chief complaint: Dizziness Stated complaint: Dizziness Time Seen by Provider: 07/19/24 12:34 History of Present Illness ED Provider: Brendan MCCORD narrative: The patient is a 58-year-old male with a history of hypertension. He is on lisinopril and amlodipine. He says that for the past couple of weeks he has been having problems with intermittent headaches and intermittent dizziness. The dizziness is most apparent when he stands up. He is concerned because 2 weeks ago he struck his head when he was in his house. He says that he was in a part of his house with a low ceiling and he stood up fully and struck his head. He did not have any loss of consciousness or fall to the floor. However since that time he feels that his headache and dizziness has been worse although he has had some similar dizziness in the past prior to the head blow. The patient has not had any difficulty speaking. He does not have a unilateral weakness or numbness. No neck pain and he does not feel that he injured his neck at the time that he injured his head. No bowel or bladder control problems. No fever, sweats, chills. Related Data Home Medications ?Medication ?Instructions ?Recorded ?Confirmed aspirin 81 mg tablet,delayed 81 mg PO DAILY 08/04/20 03/22/24 release blood sugar diagnostic (FreeStyle #10 ea 06/22/21 03/22/24 Lite Strips) lancets 33 gauge (TRUEplus Lancets) #100 ea 06/22/21 03/22/24 omeprazole 20 mg capsule,delayed 20 mg PO DAILY 08/15/22 03/22/24 release chlorthalidone 25 mg tablet mg PO 06/09/23 03/22/24 hydroxyzine HCl 25 mg tablet 25 mg PO QID 02/09/24 03/22/24 trazodone 50 mg tablet 50 mg PO BEDTIME 02/09/24 03/22/24 atorvastatin 40 mg tablet 40 mg PO ONCE 06/06/24 cetirizine 10 mg tablet (Zyrtec) 10 mg PO DAILY PRN 06/06/24 sertraline 25 mg tablet 25 mg PO DAILY 06/06/24 Previous Rx's ?Medication ?Instructions ?Recorded albuterol sulfate 90 mcg/actuation 2 puff inhalation Q6H PRN Wheezing 08/15/22 aerosol inhaler (ProAir HFA) 30 days #8.5 grams vpjpjlnvdg-fdnusdufeyhvp-fnsatkob 1 cap PO Q8H PRN pain #5 caps 03/04/23 50 mg-300 mg-40 mg capsule (Fioricet) montelukast 10 mg tablet 10 mg PO BEDTIME 30 days #30 tabs 06/09/23 (Singulair) sumatriptan succinate 50 mg tablet See Rx Instructions PO .COMPLEX 08/07/23 #10 tabs tadalafil 10 mg tablet (Cialis) 10 mg PO DAILY sexual activity 90 09/20/23 days #90 tabs cyclobenzaprine 5 mg tablet 5 mg PO TID PRN muscle spasm #14 11/23/23 tabs lidocaine 5 % topical patch 1 patch topical DAILY #15 ea 11/23/23 acetaminophen 500 mg tablet 1,000 mg (2 x 500 mg) PO Q6H PRN 12/16/23 (Tylenol Extra Strength) fever or pain #20 tabs ibuprofen 400 mg tablet 400 mg PO TID PRN fever or pain 12/16/23 #30 tabs terazosin 5 mg capsule 5 mg PO BEDTIME 90 days #90 caps 04/26/24 famotidine 40 mg tablet 40 mg PO DAILY PRN for heartburn 05/08/24 #90 tabs amlodipine 10 mg tablet 10 mg PO DAILY #90 tabs 06/24/24 lisinopril 40 mg tablet 40 mg PO DAILY #90 tabs 07/01/24 fluticasone propionate 50 2 spray intranasal DAILY #48 mL 07/15/24 mcg/actuation nasal spray,suspension meclizine 25 mg tablet 25 mg PO BID PRN dizziness #14 tabs 07/19/24 Allergies Allergy/AdvReac Type Severity Reaction Status Date / Time amoxicillin [AMOXICILLIN] Allergy Severe ANAPHYLAXIS Verified 07/19/24 11:58 Penicillins Allergy Severe UNKNOWN Verified 07/19/24 11:58 REACTION-CHILDHOOD doxycycline [From VIBRAMYCIN] AdvReac Mild DIARRHEA Verified 07/19/24 11:58 Clindamycin HCl Allergy Severe Anaphylaxis Uncoded 03/22/24 08:43 Review of Systems 2 Review of Systems: Yes all other systems are reviewed and are negative PMFSH Past Medical History Medical History (Updated 07/19/24 @ 15:12 by Saturnino Cardona MD) Pre-op examination GERD (gastroesophageal reflux disease) Orchialgia Weak urinary stream Asthma Nasal polyps Diabetes HTN (hypertension) Pulmonary nodules Surgical History (Updated 06/06/24 @ 09:07 by CAIN Neville) History of esophagogastroduodenoscopy (EGD) Hx of colonoscopy H/O wrist surgery Family History Family History Father Diabetes Hypertension Mother Hypertension Hyperlipidemia Brother Hypertension Family/Other Kidney stones Prostate cancer Bladder cancer Renal cancer Social History Social History Alcohol intake: former Patient Tobacco Use Status: Former Tobacco user Tobacco use type: Cigarette Years Smoked: 30 years Smoked in Last 30 Days: No Use of substances other than those prescribed or required for medical reasons: No Advance Directives: No Advance Directives Information Provided: Yes Do you have a plan to hurt others: No Plan Physical Exam ED Vital Signs: Vital Signs - 24 hr 07/19/24 11:54 07/19/24 13:01 07/19/24 13:02 Temperature 96.9 F Pulse Rate 68 62 64 Respiratory Rate 16 Blood Pressure 191/102 H 191/84 H 169/83 H Pulse Oximetry 99 Oxygen Delivery Method Room Air 07/19/24 13:02 07/19/24 13:03 07/19/24 13:06 Temperature Pulse Rate 62 62 Respiratory Rate 16 Blood Pressure 163/82 H 191/84 H 163/82 H Pulse Oximetry 98 Oxygen Delivery Method Room Air 07/19/24 13:06 07/19/24 14:00 07/19/24 15:22 Temperature 97.9 F Pulse Rate 56 57 Respiratory Rate 16 16 Blood Pressure 163/82 H 171/89 H 170/82 H Pulse Oximetry 98 98 Oxygen Delivery Method Room Air Room Air BMI result Body Mass Index 31.3 Const Other: The patient is awake and alert. He does not appear obviously ill. HENMT Other: No facial asymmetry. Mucous membranes are moist. Eyes Other: Pupils are round, equal, and reactive to light, extraocular movements are intact, no nystagmus. Neck Neck: Yes full ROM and Yes no JVD Resp Effort & Inspection: normal respiratory effort Auscultation: clear to auscultation bilaterally Cardio Rate: regular rate Rhythm: regular rhythm Heart sounds: S1 normal heart sound present and S2 normal heart sound present GI Other: Abdomen is soft and nontender Skin Other: Skin is dry and unremarkable Neuro Other: The patient is awake and alert with a normal mental status. Cranial nerves 2-12 are intact. He moves his extremities normally. Finger-nose is normal. Gait is steady. Extrem Other: No calf swelling or tenderness. No asymmetry. No edema. Course Course Course Narrative: RME, this is a rapid medical exam performed by Timmy Hastings please refer to primary provider for complete H&P- 58-year-old male with past medical history significant for hypertension, GERD, BPH, diabetes presents for evaluation of dizziness for the last few weeks. Reports striking his head on a wooden beam has house a few weeks ago, there was no loss of consciousness with this. He reports his symptoms have been worse since doing this. He was well-appearing in triage with a nonfocal exam. Plan for labs, CT scan of the brain. Medications Administered Discontinued Medications Generic Name Dose Route Start Last Admin Trade Name Freq PRN Reason Stop Dose Admin Amlodipine Besylate 10 mg 07/19/24 12:52 07/19/24 13:06 Amlodipine Besylate 10 Mg Tablet PO 07/19/24 12:53 10 mg ONCE ONE Administration Protocol Lisinopril 40 mg 07/19/24 12:52 07/19/24 13:06 Lisinopril 40 Mg Tablet PO 07/19/24 12:53 40 mg ONCE ONE Administration Protocol Medical Decision Making Medical Decision Making [facility] Narrative: The patient is a 58-year-old male who presents with complaints of dizziness and headache. These seemed seeing over the last few weeks. I believe he is concerned that these symptoms might be related to a head injury he sustained 2 weeks ago when he and hit his head against a low ceiling. He had no loss of consciousness of the time and was not knocked to the ground. Clinically the patient does not appear obviously unwell and he does not seem to have any definite focal neurological findings. His symptoms seem intermittent and mild. The patient is on lisinopril and amlodipine for his blood pressure. He did not take his medications this morning. The patient went to his PCP's office yesterday for an annual physical but I do not believe he mentioned these symptoms yesterday. The patient has an unremarkable workup in the emergency room. Clinically he looks well. He was given his usual dose of lisinopril and amlodipine. He was feeling better. He will be discharged with instructions to use acetaminophen as needed for headache. He was also prescribed meclizine as needed for dizziness. Lab Data 07/19/24 12:14 07/19/24 12:14 Labs: Lab Results 07/19/24 07/19/24 Range/Units 12:14 14:03 WBC 4.8 (4.8-10.8) X10*3/uL RBC 4.68 (4.60-5.80) X10*6/uL Hgb 14.3 (14.0-18.0) g/dl Hct 42.1 (42.0-52.0) % MCV 90.0 (80.0-98.0) fL MCH 30.6 (27.0-33.0) pg MCHC 34.0 (31.0-36.0) g/dl RDW 12.7 (11.0-16.0) % Plt Count 250 (160-400) X10*3/uL MPV 10.6 (9.4-12.4) fL Immature Gran % (Auto) 0.4 (0.0-0.4) % Neut % (Auto) 68.0 (45-73) % Lymph % (Auto) 20.8 (20-40) % Campbell % (Auto) 9.4 (2-11) % Eos % (Auto) 1.0 (0-4) % Baso % (Auto) 0.4 (0-2) % Lymph # (Auto) 1.0 L (1.2-4.9) X10*3/uL Campbell # (Auto) 0.5 (0.1-1.2) X10*3/uL Eos # (Auto) 0.1 (0.0-0.4) X10*3/uL Baso # (Auto) 0.0 (0.0-0.2) X10*3/uL Abs Immat Gran (auto) 0.02 (0.00-0.03) X10*3/uL Absolute Neuts (auto) 3.3 (2.0-8.3) x10*3/uL Absolute Nucleated RBC 0.000 (0.0-0.012) X10*3/uL Nucleated RBC % (auto) 0.0 (0.0-0.2) /100WBC PT 11.3 (10.9-12.4) SEC INR 1.0 (0.9-1.1) Sodium 142 (135-145) mmol/L Potassium 4.2 (3.3-5.1) mmol/L Chloride 107 (96-108) mmol/L Carbon Dioxide 30 H (22-29) mmol/L Anion Gap 9 L (12-20) BUN 16 (9-16) mg/dL Creatinine 1.03 (0.5-1.4) mg/dL Estim Creat Clear Calc 82.9 Estimated GFR > 60 Random Glucose 171 H (60-115) mg/dL Calcium 9.7 (8.4-10.2) mg/dL Total Bilirubin 0.8 (0.0-1.0) mg/dL AST 23 (5-37) U/L ALT 15 (0-40) U/L Alkaline Phosphatase 97 (39-117) U/L Troponin I High Sens 4.8 (<3.5-35.0) ng/L Total Protein 7.1 (6.5-8.0) g/dL Albumin 4.2 (3.5-5.0) g/dL Lipase 39 (8-78) U/L Urine Color Yellow Urine Appearance Clear Urine pH 8.0 (5.0-9.0) Ur Specific [place] 1.015 (1.005-1.025) Urine Protein Negative (Neg-Trace) mg/dL Urine Glucose (UA) Negative (Negative) mg/dL Urine Ketones Negative (Negative) mg/dL Urine Blood Negative (Negative) Urine Nitrite Negative (Negative) Ur Leukocyte Esterase Negative (Negative) Urine RBC 0-2 (0-2) /HPF Urine WBC 0-5 (0-5) /HPF Ur Squamous Epith Cells 0-2 (0-2) /HPF Urine Bacteria None Seen (None Seen) Hyaline Casts 0-2 (0-2) /LPF Discharge Plan Discharge Clinical Impression: Dizziness, Hypertension, Headache, Head injury Patient Disposition: Home, Self-Care Additional Instructions: Your testing in the emergency room today was reassuring. I have sent a prescription for meclizine to your pharmacy. This is a medicine that may help with dizziness. You may use this up to 2 times a day on an as- needed basis. You may use acetaminophen(Tylenol) as needed for your headache. Take 2 extra- strength acetaminophen up to 3 times a day. Please follow up with your regular doctor. Return to the emergency room if worse. Prescriptions: New meclizine 25 mg tablet 25 mg PO BID PRN (Reason: dizziness) Qty: 14 0RF No Action terazosin 5 mg capsule 5 mg PO BEDTIME 90 Days Qty: 90 1RF famotidine 40 mg tablet 40 mg PO DAILY PRN (Reason: for heartburn) Qty: 90 4RF amlodipine 10 mg tablet 10 mg PO DAILY Qty: 90 3RF lisinopril 40 mg tablet 40 mg PO DAILY Qty: 90 3RF fluticasone propionate 50 mcg/actuation spray,suspension 2 spray intranasal DAILY Qty: 48 3RF sumatriptan succinate 50 mg tablet See Rx Instructions .ROUTE .COMPLEX Qty: 10 0RF Rx Instructions: take 1 tab at onset of headache; if no relief may repeat 1 tab after at least 2 hrs; max = 4 tabs/24 hr runlvvhewa-bqdqipqpqusrp-yfes [Fioricet] 50-300-40 mg capsule 1 cap PO Q8H PRN (Reason: pain) Qty: 5 0RF lidocaine 5 % adhesive patch,medicated 1 patch topical DAILY Qty: 15 0RF Rx Instructions: leave on most painful area for up to 12 hrs cyclobenzaprine 5 mg tablet 5 mg PO TID PRN (Reason: muscle spasm) Qty: 14 0RF acetaminophen [Tylenol Extra Strength] 500 mg tablet 1,000 mg PO Q6H PRN (Reason: fever or pain) Qty: 20 0RF ibuprofen 400 mg tablet 400 mg PO TID PRN (Reason: fever or pain) Qty: 30 0RF aspirin 81 mg tablet,delayed release (DR/EC) 81 mg PO DAILY (DME) lancets [TRUEplus Lancets] 33 gauge misc See Rx Instructions Not Applicable TID Qty: 100 Rx Instructions: As directed (DME) FreeStyle Lite Strips Strip See Rx Instructions Not Applicable TID Qty: 10 Rx Instructions: As directed omeprazole 20 mg capsule,delayed release(DR/EC) 20 mg PO DAILY albuterol sulfate [ProAir HFA] 90 mcg/actuation HFA aerosol inhaler 2 puff inhalation Q6H PRN (Reason: Wheezing) 30 Days Qty: 8.5 11RF tadalafil [Cialis] 10 mg tablet 10 mg PO DAILY 90 Days Qty: 90 1RF Rx Instructions: Take daily for prostate chlorthalidone 25 mg tablet PO montelukast [Singulair] 10 mg tablet 10 mg PO BEDTIME 30 Days Qty: 30 11RF atorvastatin 40 mg tablet 40 mg PO ONCE hydroxyzine HCl 25 mg tablet 25 mg PO QID trazodone 50 mg tablet 50 mg PO BEDTIME cetirizine [Zyrtec] 10 mg tablet 10 mg PO DAILY PRN sertraline 25 mg tablet 25 mg PO DAILY Referrals: Ashley Frankel MD [Primary Care Provider] - (headache, dizziness) Interventions: ED Discharge Assessment Last Done: 07/19/24 15:22 Discharge Date/Time: 07/19/24 15:22 Print Language: Azeri
--- NOTE | 2024-07-19 11:58 | ECG_ITS ---
Test Reason : DIZZINESS Blood Pressure : / mmHG Vent. Rate : 067 BPM Atrial Rate : 067 BPM P-R Int : 142 ms QRS Dur : 088 ms QT Int : 392 ms P-R-T Axes : 041 054 064 degrees QTc Int : 414 ms Normal sinus rhythm Normal ECG When compared with ECG of 18-SEP-2023 22:02, No significant change was found Referred By: Bob Hastings Electronically Signed By:LAITH LIZAMA MD
[2024-07-19 12:19] LABS: MANUAL DIFF FLAG NO
[2024-07-19 12:22] LABS: Basophils Percent Auto 0.4 % (0-2); Eosinophils Absolute Auto 0.1 X10*3/uL (0.0-0.4); Hematocrit 42.1 % (42.0-52.0); Hemoglobin 14.3 g/dl (14.0-18.0); Imm Gran Abs Auto 0.02 X10*3/uL (0.00-0.03); Imm Gran Pct Auto 0.4 % (0.0-0.4); Lymphocytes Percent Auto 20.8 % (20-40); Mean Corpuscular Hemoglobin 30.6 pg (27.0-33.0); Mean Platelet Volume 10.6 fL (9.4-12.4); Monocytes Absolute Auto 0.5 X10*3/uL (0.1-1.2); Monocytes Percent Auto 9.4 % (2-11); Neutrophils Absolute Auto 3.3 x10*3/uL (2.0-8.3); Platelet Count 250 X10*3/uL (160-400); Red Blood Count 4.68 X10*6/uL (4.60-5.80); Red Cell Distribution Width 12.7 % (11.0-16.0); White Blood Count 4.8 X10*3/uL (4.8-10.8)
[2024-07-19 12:28] LABS: Prothrombin Time 11.3 SEC (10.9-12.4)
[2024-07-19 12:35] LABS: Alanine Aminotransferase 15 U/L (0-40); Albumin Level 4.2 g/dL (3.5-5.0); Alkaline Phosphatase 97 U/L (39-117); Anion Gap 9 (12-20); Aspartate Amino Transferase 23 U/L (5-37); Bilirubin Total 0.8 mg/dL (0.0-1.0); Blood Urea Nitrogen 16 mg/dL (9-16); Calcium 9.7 mg/dL (8.4-10.2); Carbon Dioxide 30 mmol/L (22-29); Chloride 107 mmol/L (96-108); Creatinine Clr Calc Pharmacy 82.9; Estimated Glomerular Filt Rate > 60; Glucose Random 171 mg/dL (60-115); Lipase 39 U/L (8-78); Potassium 4.2 mmol/L (3.3-5.1); Sodium 142 mmol/L (135-145); Total Protein 7.1 g/dL (6.5-8.0)
[2024-07-19 12:43] LABS: Troponin-I High Sensitivity 4.8 ng/L (<3.5-35.0)
[2024-07-19] MEDS: lisinopriL 40 MG TABLET PO (13:06)
[2024-07-19] MEDS: amLODIPine Besylate 10 MG TABLET PO (13:06)
[2024-07-19 14:11] LABS: Appearance Urine Clear; Color Urine Yellow; Glucose Urine UA Negative (Negative); Leukocyte Esterase Urine Negative (Negative); Nitrite Urine Negative (Negative); Specific Gravity - Urine 1.015 (1.005-1.025); Urine Blood Negative (Negative); Urine Ketones Negative (Negative); Urine Protein Negative (Neg-Trace)
[2024-07-19 14:24] LABS: Bacteria Urine None Seen (None Seen); Hyaline Casts Urine 0-2 /LPF (0-2); RBC Urine 0-2 /HPF (0-2); Squamous Epithelial Cell Urine 0-2 /HPF (0-2); WBC Urine 0-5 /HPF (0-5)
== END 2024-07-19 15:22 | disposition home or self-care (01) ==
PROVIDERS: Physician Assistant; Emergency Provider Emergency Medicine; PCP Family Medicine
DX: R42 Dizziness and giddiness (principal); I10 Essential (primary) hypertension; R51.9 Headache, unspecified; S09.90XA Unspecified injury of head, initial encounter; W22.09XA Striking against other stationary object, initial encounter; E11.9 Type 2 diabetes mellitus without complications; E78.00 Pure hypercholesterolemia, unspecified; J45.909 Unspecified asthma, uncomplicated; Z87.891 Personal history of nicotine dependence; Y93.89 Activity, other specified; Y92.009 Unspecified place in unspecified non-institutional (private) residence as the place of occurrence of the external cause; Y99.9 Unspecified external cause status; Z79.899 Other long term (current) drug therapy; Z79.82 Long term (current) use of aspirin; Z79.02 Long term (current) use of antithrombotics/antiplatelets
CPT/HCPCS: 36415; 70450; 80053; 81001; 83690; 84484; 85025; 85610; 93005; 99284; 99285

== ENCOUNTER → 2024-07-19 11:58 | Outpatient (BNV) | payer OTHER, SELFPAY | PROVIDERS: Emergency Provider Emergency Medicine; PCP Family Medicine; Visit Provider Internal Medicine Cardiovascular Disease | DX: R42 Dizziness and giddiness (principal) | CPT/HCPCS: 93010 ==

== ENCOUNTER 2024-08-13 11:23 | Outpatient (REF) | payer OTHER, SELFPAY ==
[2024-08-13 13:35] LABS: Estimated Average Glucose 131 mg/dL; Hemoglobin A1C 144.4763 umol/L; Hemoglobin A1c % 6.2 % (<6.0); Total Hemoglobin (HGBA1C) 3228.8476 umol/L
[2024-08-13 13:36] LABS: Creatinine Urine 73.67 mg/dL; Microalbum/Creatinine Ratio Ur 17.6 ug/mg cr (<30)
[2024-08-13 13:50] LABS: Alanine Aminotransferase 25 U/L (0-40); Albumin Level 3.6 g/dL (3.5-5.0); Alkaline Phosphatase 79 U/L (39-117); Anion Gap 11 (12-20); Aspartate Amino Transferase 26 U/L (5-37); Bilirubin Direct 0.2 mg/dL (0.0-0.5); Bilirubin Total 0.7 mg/dL (0.0-1.0); Blood Urea Nitrogen 14 mg/dL (9-16); Carbon Dioxide 28 mmol/L (22-29); Chloride 104 mmol/L (96-108); Cholesterol 146 mg/dL (<200); Estimated Glomerular Filt Rate > 60; Glucose Random 185 mg/dL (60-115); HDL Cholesterol 33 mg/dL (>40); LDL Cholesterol Calculated 96 mg/dL (<100); Sodium 139 mmol/L (135-145); Triglycerides 86 mg/dL (<150)
[2024-08-13 13:53] LABS: Prostate Specific Antigen 0.69 ng/mL (<0.05-4.0)
[2024-08-18 14:49] LABS: Testosterone, Total 317 ng/dL (250-1100)
== END 2024-08-13 11:24 | disposition home or self-care (01) ==
LOC: HO.HHCL 11:23
PROVIDERS: Urology; Visit Provider Family Medicine
DX: I10 Essential (primary) hypertension (principal); E11.9 Type 2 diabetes mellitus without complications; N52.1 Erectile dysfunction due to diseases classified elsewhere; E11.69 Type 2 diabetes mellitus with other specified complication; Z12.5 Encounter for screening for malignant neoplasm of prostate
CPT/HCPCS: 36415; 80048; 80061; 80076; 82043; 82570; 83036; 84153; 84403

== ENCOUNTER 2024-08-14 20:20 | Emergency (ER) | payer OTHER, SELFPAY ==
--- NOTE | 2024-08-14 | ECG_ITS ---
Test Reason : CP Blood Pressure : / mmHG Vent. Rate : 087 BPM Atrial Rate : 087 BPM P-R Int : 144 ms QRS Dur : 088 ms QT Int : 386 ms P-R-T Axes : 054 059 037 degrees QTc Int : 464 ms Normal sinus rhythm Normal ECG When compared with ECG of 19-JUL-2024 12:01, T wave inversion now evident in Inferior leads QT has lengthened Referred By: Generic ED Physician Electronically Signed By:FARTUN MILLARD
--- NOTE | ~2024-08-14 | XR_ITS ---
EXAMINATION: XR CHEST CLINICAL INFORMATION: Right-sided chest pain COMPARISON: September 18, 2023 TECHNIQUE: Frontal view of the chest was obtained. FINDINGS: The cardiomediastinal silhouette is normal. There is a small apparent opacity right lateral mid lung field covering approximately 3 cm. The left lung is clear. There are no significant pleural effusions. The bony structures and soft tissues are unremarkable. XR/XR chest 1V IMPRESSION: Small apparent opacity in the right lateral mid lung field. This is nonspecific and may be projectional, however, a developing infiltrate cannot be excluded. Electronically signed by: Max Kent MD 08/15/2024 01:40 AM [facility] [place]
[2024-08-14 20:39] VITALS: BP 146/80; PULSE 88; RESP 18; TEMP 36.8; O2SAT 98; BMI 27.6
[2024-08-14 20:39] LABS: MANUAL DIFF FLAG NO
--- NOTE | 2024-08-14 20:40 | ED_ITS ---
HPI - General Adult General Chief complaint: Chest Pain Stated complaint: chest pain Time Seen by Provider: 08/14/24 21:08 Source: patient Mode of arrival: ambulatory Limitations: no limitations History of Present Illness ED Provider: HPI narrative: Patient's history of asthma high cholesterol comes here for pain in the right upper back chest pain and right anterior chest pain started earlier today increases on palpation and taking deep breath no shortness a breath no rash Related Data Home Medications ?Medication ?Instructions ?Recorded ?Confirmed aspirin 81 mg tablet,delayed 81 mg PO DAILY 08/04/20 03/22/24 release blood sugar diagnostic (FreeStyle #10 ea 06/22/21 03/22/24 Lite Strips) lancets 33 gauge (TRUEplus Lancets) #100 ea 06/22/21 03/22/24 omeprazole 20 mg capsule,delayed 20 mg PO DAILY 08/15/22 03/22/24 release chlorthalidone 25 mg tablet mg PO 06/09/23 03/22/24 hydroxyzine HCl 25 mg tablet 25 mg PO QID 02/09/24 03/22/24 trazodone 50 mg tablet 50 mg PO BEDTIME 02/09/24 03/22/24 atorvastatin 40 mg tablet 40 mg PO ONCE 06/06/24 cetirizine 10 mg tablet (Zyrtec) 10 mg PO DAILY PRN 06/06/24 sertraline 25 mg tablet 25 mg PO DAILY 06/06/24 Previous Rx's ?Medication ?Instructions ?Recorded albuterol sulfate 90 mcg/actuation 2 puff inhalation Q6H PRN Wheezing 08/15/22 aerosol inhaler (ProAir HFA) 30 days #8.5 grams alhgrjohah-lhcqzjmtcdplp-bwxmmyfm 1 cap PO Q8H PRN pain #5 caps 03/04/23 50 mg-300 mg-40 mg capsule (Fioricet) montelukast 10 mg tablet 10 mg PO BEDTIME 30 days #30 tabs 06/09/23 (Singulair) sumatriptan succinate 50 mg tablet See Rx Instructions PO .COMPLEX 08/07/23 #10 tabs tadalafil 10 mg tablet (Cialis) 10 mg PO DAILY sexual activity 90 09/20/23 days #90 tabs cyclobenzaprine 5 mg tablet 5 mg PO TID PRN muscle spasm #14 11/23/23 tabs lidocaine 5 % topical patch 1 patch topical DAILY #15 ea 11/23/23 acetaminophen 500 mg tablet 1,000 mg (2 x 500 mg) PO Q6H PRN 12/16/23 (Tylenol Extra Strength) fever or pain #20 tabs ibuprofen 400 mg tablet 400 mg PO TID PRN fever or pain 12/16/23 #30 tabs terazosin 5 mg capsule 5 mg PO BEDTIME 90 days #90 caps 04/26/24 famotidine 40 mg tablet 40 mg PO DAILY PRN for heartburn 05/08/24 #90 tabs amlodipine 10 mg tablet 10 mg PO DAILY #90 tabs 06/24/24 lisinopril 40 mg tablet 40 mg PO DAILY #90 tabs 07/01/24 fluticasone propionate 50 2 spray intranasal DAILY #48 mL 07/15/24 mcg/actuation nasal spray,suspension meclizine 25 mg tablet 25 mg PO BID PRN dizziness #14 tabs 07/19/24 ibuprofen 600 mg tablet 600 mg PO Q6H PRN fever or pain 08/14/24 #30 tabs Allergies Allergy/AdvReac Type Severity Reaction Status Date / Time amoxicillin [AMOXICILLIN] Allergy Severe ANAPHYLAXIS Verified 08/14/24 20:44 Penicillins Allergy Severe UNKNOWN Verified 08/14/24 20:44 REACTION-CHILDHOOD doxycycline [From VIBRAMYCIN] AdvReac Mild DIARRHEA Verified 08/14/24 20:44 Clindamycin HCl Allergy Severe Anaphylaxis Uncoded 08/14/24 20:44 Review of Systems 2 Review of Systems: Yes all other systems are reviewed and are negative PMFSH Past Medical History Medical History Pre-op examination GERD (gastroesophageal reflux disease) Orchialgia Weak urinary stream Asthma Nasal polyps Diabetes HTN (hypertension) Pulmonary nodules Surgical History History of esophagogastroduodenoscopy (EGD) Hx of colonoscopy H/O wrist surgery Family History Family History Father Diabetes Hypertension Mother Hypertension Hyperlipidemia Brother Hypertension Family/Other Kidney stones Prostate cancer Bladder cancer Renal cancer Social History Social History Alcohol intake: former Patient Tobacco Use Status: Former Tobacco user Tobacco use type: Cigarette Years Smoked: 30 years Smoked in Last 30 Days: No Use of substances other than those prescribed or required for medical reasons: No Advance Directives: No Advance Directives Information Provided: No Physical Exam ED Vital Signs: Vital Signs - 24 hr 08/14/24 20:39 08/14/24 21:07 Temperature 98.3 F 98.1 F Pulse Rate 88 88 Respiratory Rate 18 15 Blood Pressure 146/80 H 139/84 Pulse Oximetry 98 98 Oxygen Delivery Method Room Air Room Air BMI result Body Mass Index 27.6 Appearance: Alert. Oriented X3. No acute distress. Eyes: PERRLA, No Nystagmus ENT: Pharynx normal. Oral Mucosa moist Neck: Normal inspection. Neck supple. CVS: Normal heart rate and rhythm. Pulses normal. Tenderness right rhomboids area no rash Respiratory: No respiratory distress. Equal air entry bilateral, no wheezing/rales/rhonchi Abdomen: Soft and nontender. Bowel sounds are present, no mass palpable, no CVA tenderness Skin: Skin warm and dry. Normal skin color. Normal skin turgor. Extremities: No lower extremity edema. No calf tenderness Neuro: Oriented X 3. No motor deficit. No sensory deficit.No cerebellar signs , cranial nerves II-XII intact Course Course Course Narrative: RME, this is a rapid medical exam performed by Timmy Hastings please refer to primary provider for complete H&P- 58-year-old male past medical history significant for GERD, diabetes, hypertension presents for evaluation right flank pain that radiates to his right chest. The pain started when he woke up, he had associated shortness of breath. His symptoms have improved but he is still experiencing pain. Plan for EKG, labs. We will also get a urinalysis. Medical Decision Making Medical Decision Making MDM Narrative: Patient's right-sided thoracic pain which increases on palpation and movements clinically rhomboid strain chest wall pain no evidence of coronary artery involvement normal troponin normal axis Lab Data MDM Lab Attestation statement: I reviewed the patient's lab results. 08/14/24 20:34 08/14/24 20:34 Labs: Lab Results 08/14/24 08/14/24 Range/Units 20:34 21:12 WBC 6.9 (4.8-10.8) X10*3/uL RBC 4.17 L (4.60-5.80) X10*6/uL Hgb 12.7 L (14.0-18.0) g/dl Hct 36.7 L (42.0-52.0) % MCV 88.0 (80.0-98.0) fL MCH 30.5 (27.0-33.0) pg MCHC 34.6 (31.0-36.0) g/dl RDW 11.7 (11.0-16.0) % Plt Count 390 D (160-400) X10*3/uL MPV 9.6 (9.4-12.4) fL Immature Gran % (Auto) 0.7 H (0.0-0.4) % Neut % (Auto) 70.7 (45-73) % Lymph % (Auto) 16.5 L (20-40) % Sampson % (Auto) 10.6 (2-11) % Eos % (Auto) 0.9 (0-4) % Baso % (Auto) 0.6 (0-2) % Lymph # (Auto) 1.1 L (1.2-4.9) X10*3/uL Sampson # (Auto) 0.7 (0.1-1.2) X10*3/uL Eos # (Auto) 0.1 (0.0-0.4) X10*3/uL Baso # (Auto) 0.0 (0.0-0.2) X10*3/uL Abs Immat Gran (auto) 0.05 H (0.00-0.03) X10*3/uL Absolute Neuts (auto) 4.9 (2.0-8.3) x10*3/uL Absolute Nucleated RBC 0.000 (0.0-0.012) X10*3/uL Nucleated RBC % (auto) 0.0 (0.0-0.2) /100WBC Sodium 139 (135-145) mmol/L Potassium 3.6 (3.3-5.1) mmol/L Chloride 105 (96-108) mmol/L Carbon Dioxide 27 (22-29) mmol/L Anion Gap 11 L (12-20) BUN 14 (9-16) mg/dL Creatinine 1.08 (0.5-1.4) mg/dL Estim Creat Clear Calc 74.6 Estimated GFR > 60 Random Glucose 244 H (60-115) mg/dL Calcium 9.6 D (8.4-10.2) mg/dL Magnesium 2.1 (1.6-2.6) mg/dL Total Bilirubin 0.5 (0.0-1.0) mg/dL AST 25 (5-37) U/L ALT 20 (0-40) U/L Alkaline Phosphatase 83 (39-117) U/L Troponin I High Sens 4.3 (<3.5-35.0) ng/L Total Protein 7.5 (6.5-8.0) g/dL Albumin 3.8 (3.5-5.0) g/dL Lipase 26 (8-78) U/L Urine Color Dark Yellow Urine Appearance Clear Urine pH 5.5 (5.0-9.0) Ur Specific [place] 1.025 (1.005-1.025) Urine Protein Trace (Neg-Trace) mg/dL Urine Glucose (UA) Negative (Negative) mg/dL Urine Ketones 15 (Negative) mg/dL Urine Blood Trace H (Negative) Urine Nitrite Negative (Negative) Ur Leukocyte Esterase Negative (Negative) Urine RBC 6-10 H (0-2) /HPF Urine WBC 0-5 (0-5) /HPF Ur Squamous Epith Cells 0-2 (0-2) /HPF Urine Bacteria None Seen (None Seen) Hyaline Casts 0-2 (0-2) /LPF Independent Interpretation I performed an independent interpretation of an: EKG and Plain X-Ray Interpretation: Normal sinus rhythm heart rate 87 beats per minute normal interval normal axis no acute STT wave changes no acute ischemia Discharge Plan Discharge Clinical Impression: Pain, upper back Patient Disposition: Home, Self-Care Instructions: Thoracic Pain (ED) Additional Instructions: At this time there is no evidence of coronary artery disease Take ibuprofen for pain Follow up with your PCP Prescriptions: New ibuprofen 600 mg tablet 600 mg PO Q6H PRN (Reason: fever or pain) Qty: 30 0RF No Action terazosin 5 mg capsule 5 mg PO BEDTIME 90 Days Qty: 90 1RF famotidine 40 mg tablet 40 mg PO DAILY PRN (Reason: for heartburn) Qty: 90 4RF amlodipine 10 mg tablet 10 mg PO DAILY Qty: 90 3RF lisinopril 40 mg tablet 40 mg PO DAILY Qty: 90 3RF fluticasone propionate 50 mcg/actuation spray,suspension 2 spray intranasal DAILY Qty: 48 3RF sumatriptan succinate 50 mg tablet See Rx Instructions .ROUTE .COMPLEX Qty: 10 0RF Rx Instructions: take 1 tab at onset of headache; if no relief may repeat 1 tab after at least 2 hrs; max = 4 tabs/24 hr zxwadrubmw-bjbijyktirsnt-gcro [Fioricet] 50-300-40 mg capsule 1 cap PO Q8H PRN (Reason: pain) Qty: 5 0RF lidocaine 5 % adhesive patch,medicated 1 patch topical DAILY Qty: 15 0RF Rx Instructions: leave on most painful area for up to 12 hrs cyclobenzaprine 5 mg tablet 5 mg PO TID PRN (Reason: muscle spasm) Qty: 14 0RF acetaminophen [Tylenol Extra Strength] 500 mg tablet 1,000 mg PO Q6H PRN (Reason: fever or pain) Qty: 20 0RF ibuprofen 400 mg tablet 400 mg PO TID PRN (Reason: fever or pain) Qty: 30 0RF meclizine 25 mg tablet 25 mg PO BID PRN (Reason: dizziness) Qty: 14 0RF aspirin 81 mg tablet,delayed release (DR/EC) 81 mg PO DAILY (DME) lancets [TRUEplus Lancets] 33 gauge misc See Rx Instructions Not Applicable TID Qty: 100 Rx Instructions: As directed (DME) FreeStyle Lite Strips Strip See Rx Instructions Not Applicable TID Qty: 10 Rx Instructions: As directed omeprazole 20 mg capsule,delayed release(DR/EC) 20 mg PO DAILY albuterol sulfate [ProAir HFA] 90 mcg/actuation HFA aerosol inhaler 2 puff inhalation Q6H PRN (Reason: Wheezing) 30 Days Qty: 8.5 11RF tadalafil [Cialis] 10 mg tablet 10 mg PO DAILY 90 Days Qty: 90 1RF Rx Instructions: Take daily for prostate chlorthalidone 25 mg tablet PO montelukast [Singulair] 10 mg tablet 10 mg PO BEDTIME 30 Days Qty: 30 11RF atorvastatin 40 mg tablet 40 mg PO ONCE hydroxyzine HCl 25 mg tablet 25 mg PO QID trazodone 50 mg tablet 50 mg PO BEDTIME cetirizine [Zyrtec] 10 mg tablet 10 mg PO DAILY PRN sertraline 25 mg tablet 25 mg PO DAILY Print Language: Setswana
[2024-08-14 20:48] LABS: Basophils Percent Auto 0.6 % (0-2); Eosinophils Absolute Auto 0.1 X10*3/uL (0.0-0.4); Eosinophils Percent Auto 0.9 % (0-4); Hematocrit 36.7 % (42.0-52.0); Hemoglobin 12.7 g/dl (14.0-18.0); Imm Gran Abs Auto 0.05 X10*3/uL (0.00-0.03); Imm Gran Pct Auto 0.7 % (0.0-0.4); Lymphocytes Absolute Auto 1.1 X10*3/uL (1.2-4.9); Lymphocytes Percent Auto 16.5 % (20-40); Mean Corpuscular HGB Conc 34.6 g/dl (31.0-36.0); Mean Corpuscular Hemoglobin 30.5 pg (27.0-33.0); Mean Platelet Volume 9.6 fL (9.4-12.4); Monocytes Absolute Auto 0.7 X10*3/uL (0.1-1.2); Monocytes Percent Auto 10.6 % (2-11); Neutrophils Absolute Auto 4.9 x10*3/uL (2.0-8.3); Neutrophils Percent Auto 70.7 % (45-73); Platelet Count 390 X10*3/uL (160-400); Red Blood Count 4.17 X10*6/uL (4.60-5.80); Red Cell Distribution Width 11.7 % (11.0-16.0); White Blood Count 6.9 X10*3/uL (4.8-10.8)
[2024-08-14 21:07] VITALS: BP 139/84; PULSE 88; PULSE 95; RESP 15; TEMP 36.7; O2SAT 98
[2024-08-14 21:07] LABS: Alanine Aminotransferase 20 U/L (0-40); Albumin Level 3.8 g/dL (3.5-5.0); Alkaline Phosphatase 83 U/L (39-117); Anion Gap 11 (12-20); Aspartate Amino Transferase 25 U/L (5-37); Bilirubin Total 0.5 mg/dL (0.0-1.0); Blood Urea Nitrogen 14 mg/dL (9-16); Calcium 9.6 mg/dL (8.4-10.2); Carbon Dioxide 27 mmol/L (22-29); Chloride 105 mmol/L (96-108); Creatinine Clr Calc Pharmacy 74.6; Estimated Glomerular Filt Rate > 60; Glucose Random 244 mg/dL (60-115); Lipase 26 U/L (8-78); Magnesium 2.1 mg/dL (1.6-2.6); Potassium 3.6 mmol/L (3.3-5.1); Sodium 139 mmol/L (135-145); Total Protein 7.5 g/dL (6.5-8.0)
[2024-08-14 21:14] LABS: Troponin-I High Sensitivity 4.3 ng/L (<3.5-35.0)
[2024-08-14 21:23] LABS: Appearance Urine Clear; Color Urine Dark Yellow; Glucose Urine UA Negative (Negative); Leukocyte Esterase Urine Negative (Negative); Nitrite Urine Negative (Negative); PH 5.5 (5.0-9.0); Specific Gravity - Urine 1.025 (1.005-1.025); UMIC TRIGGER UACC YES; Urine Blood Trace (Negative); Urine Ketones 15 mg/dL (Negative); Urine Protein Trace mg/dL (Neg-Trace)
[2024-08-14 21:28] LABS: Bacteria Urine None Seen (None Seen); Hyaline Casts Urine 0-2 /LPF (0-2); Squamous Epithelial Cell Urine 0-2 /HPF (0-2); WBC Urine 0-5 /HPF (0-5)
[2024-08-14 22:57] VITALS: BP 143/77; PULSE 75; RESP 16; TEMP 36.7; O2SAT 97
== END 2024-08-14 23:19 | disposition home or self-care (01) ==
PROVIDERS: Physician Assistant; Emergency Provider Internal Medicine; PCP Family Medicine
DX: R07.89 Other chest pain (principal); M54.6 Pain in thoracic spine; M54.50 Low back pain, unspecified; Z79.899 Other long term (current) drug therapy
CPT/HCPCS: 36415; 71045; 80053; 81001; 83690; 83735; 84484; 85025; 93005; 99283; 99285

== ENCOUNTER → 2024-08-14 20:30 | Outpatient (BNV) | payer OTHER, SELFPAY | PROVIDERS: Emergency Provider Internal Medicine; PCP Family Medicine; Visit Provider Internal Medicine | DX: R07.9 Chest pain, unspecified (principal) | CPT/HCPCS: 93010 ==

== ENCOUNTER 2024-08-16 09:31 | Outpatient (AMB) | payer OTHER, SELFPAY ==
[2024-08-16 09:35] VITALS: BP 140/80; PULSE 71; O2SAT 99; BMI 28.3
--- NOTE | 2024-08-16 09:35 | A.OFFVIS_ITS ---
Vital Signs 08/16/24 09:35 Height 5 ft 7 in Weight 180 lb 12.465 oz BMI 28.3 BP 140/80 H Blood Pressure Location Lt brachial Position Sitting Pulse 71 Pulse Source Pulse Oximeter Pulse Oximetry (%) 99 Oxygen Delivery Method Room Air Intake Visit Reasons: Asthma Unemployment Benefits Claims Taker Required: No Allergies amoxicillin [AMOXICILLIN] Allergy (Severe, Verified 08/16/24 09:38) ANAPHYLAXIS Penicillins Allergy (Severe, Verified 08/16/24 09:38) UNKNOWN REACTION-CHILDHOOD doxycycline [From VIBRAMYCIN] Adverse Reaction (Mild, Verified 08/16/24 09:38) DIARRHEA Clindamycin HCl Allergy (Severe, Uncoded 08/16/24 09:38) Anaphylaxis HPI Comments Details: Pleasant 59-year-old gentleman who is here for follow-up. He has background history of atypical chest pain for which he underwent stress testing in the past with was normal. He also had echocardiography which did not show any significant pathology. He is presenting now for follow-up because he has been experiencing palpitations. These happen almost every night. When he is lying on his side he feels his heart is racing and he can feel the heartbeat in his ear. Sometimes it is fast. He is worried about AFib. He has no significant chest pains at this point. He did not take his blood pressure medications today. His blood pressure is elevated today. 09/25/2020 the patient has a telephone visit. He has been complaining of further nasal congestion and sinus tenderness. Moderate severity. Significant cough postnasal drip related. Has a hard time sleeping at nighttime because the discomfort. He did undergo a CT scan of the chest that was personally by me. Appears to have stable pulmonary nodules. Will continue monitoring the nodules on a yearly basis for couple years to ensure stability. Patient also needs to be followed up by ENT due to the fact that he has nasal polyposis and his nasal issue will continue to be recurrent and progressive. 08/02/2021 the patient is here for a pulmonary sick visit. Apparently he was evaluated about a week ago with nasal congestion and sinus discomfort. He was placed on azithromycin. he did have partial improvement of the symptoms. But still having sinus discomfort and fullness and discomfort. The drainage has decreased in amount. Patient does have significant swelling of the nasal passages. In the meantime he also underwent a CT scan of the chest around the same time because of the pulmonary nodules. At least I could review the images with him and reassured him that he does not have any active lower respiratory infection. His pulmonary nodules are indeed stable which is reassuring. He will require CT scan in a year's time. We will treat him again for this subacute sinusitis with the hope of improving his symptoms. 08/15/2022 the patient is here for a pulmonary follow-up visit. The patient is doing well from a respiratory status. He does have a cough intermittently. Usually associated with a postnasal drip. Moderate severity. He does have allergy medicines and also nasal sprays but he has not been using it. His major issue is the neck pain and now shoulder discomfort. He does have significant osteoarthritis of the left shoulder. Has a hard time turning his neck. From a respiratory standpoint he does have a rescue inhaler but he does not use it. Typically his asthma is exacerbated by a he respiratory illness. Denies any significant allergies. He does have underlying pulmonary nodules. The patient did have a repeat CAT scan about a week ago which we personally reviewed in the office. The patient does have stable pulmonary nodules at this time. There subcentimeter in size and do not appear concerning. Therefore, since the pulmonary nodules have been stable now for 2 years no further imaging studies warranted. Will reassess in a year to see additional studies have required if he is having any ongoing symptoms. 06/09/2023 the patient is here for a pulmonary follow-up visit. He is complaining about worsening nasal congestion. Moderate severity. Has a hard time breathing through his nose and has a postnasal drip. He attributes this to his rugs in the apartment. Feels like they are causing him to have significant worsening sinusitis and rhinitis in addition to his asthma. He is asking for the rugs to be removed. At this point we can just request allergy testing and see if he is allergic to any dust mites or any mold that could be in better in the rugs. If he does have underlying allergies then be reasonable to request replaced on the rugs otherwise patient could just use the HEPA filter vacuum. The patient is doing well from the asthma standpoint. He has not had to use his rescue inhaler. Although does have significant sinusitis at this time so therefore will treat him for the sinusitis at this time. 09/15/2023 the patient is here for a pulmonary follow-up visit. The patient has been having good and bad days. Complains of significant nasal congestion. He does have the history of nasal polyps. He feels like being his apartment with the rugs make his breathing much worse. He has a studio apartment. We did do the allergy testing although no significant allergies were noted. Still he is still very uncomfortable and complaining that the rugs are bothering him. I did provide him with a letter if they can be removed safely then that would be a good option. He will have to work with his landlord for that. In the meantime the patient continues with current respiratory therapy. His breathing has been stable. He is still dealing with significant neck discomfort. The patient also had a CT scan last done back in July 2022 demonstrating an 8 mm pulmonary nodule. Based on the size which go ahead and repeat a CT scan before the next visit. 02/09/2024 the patient is here for a pulmonary follow-up visit. He is complaining significant sinus congestion and pressure. His ears are plugged as well. He has a hard time with the nasal obstruction. His respiratory and nasal therapy has not been helpful. The patient having significant issues with allergies as well. Although, we have done allergy testing in the past and was really on inconclusive. He did have a CT scan of the chest which we personally reviewed demonstrating no significant change in the 8 mm pulmonary nodule she is reassuring. Although the CT scan has not been officially read yet. If the CT scans any different outlet no otherwise follow-up with a repeat CT scan in a year's time. 08/16/2024 the patient is here for a pulmonary follow-up visit. Started developing right-sided pleuritic discomfort. Moderate severity. He became very concerned and went to the ER. There he had a chest x-ray. Apparently he was told that everything is okay. Although seems to have a slight peripheral opacity in the right lung. The patient also has known pulmonary nodules. Will go ahead and treat him for community-acquired pneumonia or walking pneumonia. Also given some methylprednisolone to help him with pleurisy. Seems like his pain is better this time but still he still had some discomfort that he feels specially when he takes a deep breath in. After he completes the therapy the patient will have a repeat chest x-ray sometime in August to make sure that everything is clearing up. If he does develop worsening symptoms he is to call or go to the ER. Will follow-up in the next few months. If the patient has any worsening issues she will call for an earlier assessment. In the meantime he is going to continue with current respiratory therapy. And also he should have a CT scan sometime in May anyways the follow-up with his pulmonary nodule. [facility] Medical History (Updated 08/16/24 @ 09:44 by Raheel Gee MD) Opacity of lung on imaging study Pre-op examination GERD (gastroesophageal reflux disease) Orchialgia Weak urinary stream Asthma Nasal polyps Diabetes HTN (hypertension) Pulmonary nodules Surgical History History of esophagogastroduodenoscopy (EGD) Hx of colonoscopy H/O wrist surgery Family History Father Diabetes Hypertension Mother Hypertension Hyperlipidemia Brother Hypertension Family/Other Kidney stones Prostate cancer Bladder cancer Renal cancer Social History Alcohol intake: former Patient Tobacco Use Status: Former Tobacco user Tobacco use type: Cigarette Years Smoked: 30 years Review of Systems Const Denies fatigue, Denies fever(s), Denies night sweats, Denies poor appetite and Denies weight loss ENT Reports Normal hearing present, Denies dental pain, Denies dysphagia, Denies hearing loss, Denies mouth pain, Reports nasal congestion, Reports nasal discharge, Reports nasal obstruction, Denies odynophagia, Reports sinus pain and Reports sinus pressure Card Reports no additional complaints, Denies dyspnea and Denies dyspnea on exertion Resp Denies chest congestion, Reports cough, Denies dyspnea, Denies dyspnea on exertion and Denies wheezing GI Denies abdominal pain, Denies melena, Denies bloating, Reports hematochezia, Denies constipation, Denies GI cramping, Denies dysphagia, Denies excessive flatus, Denies early satiety, Reports heartburn, Denies diarrhea, Denies nausea, Denies odynophagia, Denies vomiting and Denies hematemesis Skin/Breast Denies pruritus, Denies lesions, Denies rash and Denies jaundice Neuro Reports Normal hearing present and Denies Abnormal speech present Endo Denies fatigue Aller/Immun Denies wheezing Physical Exam Vital Signs: Last Vital Signs Pulse 71 08/16/24 09:35 BP 140/80 H 08/16/24 09:35 Pulse Ox 99 08/16/24 09:35 Oxygen Delivery Method Room Air 08/16/24 09:35 BMI result Body Mass Index 28.3 Const General: no acute distress and well developed HEENT Head: Yes normocephalic and Yes atraumatic General nose exam: Abnormal mucous membranes and turbinates present erythematous Eyes Pupils: Equal, round and reactive pupils present Neck Neck: Yes normal visual inspection and Yes no lymphadenopathy Chest Chest palpation & inspection: normal inspection of the chest Resp Effort & Inspection: normal respiratory effort and able to speak in complete sentences Auscultation: clear to auscultation bilaterally Cardio Rate: regular rate Rhythm: regular rhythm GI Palpation (GI): Soft to palpation Skin General skin exam: no rashes or lesions noted Neuro Cranial nerves: Yes Equal, round and reactive pupils present and Yes Normal hearing present Speech: No Abnormal speech present Extrem General: No clubbing, No cyanosis and No edema Psych Appearance: well kempt Attitude: cooperative Assessment & Plan Assessment & Plan (1) Nasal polyps: Code(s): J33.9 - Nasal polyp, unspecified Category: Medical (2) Pulmonary nodules: Code(s): R91.8 - Other nonspecific abnormal finding of lung field Category: Medical (3) Asthma: Code(s): J45.909 - Unspecified asthma, uncomplicated Category: Medical Qualifiers: Asthma complication type: uncomplicated Asthma persistence: persistent Asthma severity: moderate Qualified Code(s): J45.40 - Moderate persistent asthma, uncomplicated (4) Sinusitis: Code(s): J32.9 - Chronic sinusitis, unspecified Category: Medical Qualifiers: Chronicity: acute Recurrence: recurrent Sinusitis location: unspecified location Qualified Code(s): J01.91 - Acute recurrent sinusitis, unspecified Plan WAI as needed Continue nasal therapy wtih flonase and nasal rinsing continue zyrtec continue singulair Continue WAI as needed CT chest to assess 8mm nodule 01/2025 F/U in 6 months Orders: Orders XR chest 2V 08/16/24 R91.8 - Other nonspecific abnormal finding of lung field Medications: New levofloxacin 500 mg PO DAILY 7 tabs 0RF 7 days methylprednisolone (Medrol (Aashish)) PO PER PKG DIR 21 ea 0RF 6 days Coding Level of Care Code Est Pt Level 4 (23574) Diagnoses Nasal polyps J33.9 Pulmonary nodules R91.8 Moderate persistent asthma without complication J45.40 Asthma complication type: uncomplicated Asthma persistence: persistent Asthma severity: moderate Acute recurrent sinusitis, unspecified location J01.91 Chronicity: acute Recurrence: recurrent Sinusitis location: unspecified location Time Spent (min) 16
== END 2024-08-16 09:50 | disposition home or self-care (01) ==
PROVIDERS: PCP Family Medicine; Visit Provider Hospitalist
DX: J33.9 Nasal polyp, unspecified (principal); R91.8 Other nonspecific abnormal finding of lung field; J45.40 Moderate persistent asthma, uncomplicated; J01.91 Acute recurrent sinusitis, unspecified
CPT/HCPCS: 99214

== ENCOUNTER → 2024-08-16 09:31 | Outpatient (BNVA) | payer OTHER, SELFPAY | PROVIDERS: PCP Family Medicine; Visit Provider Hospitalist | DX: J33.9 Nasal polyp, unspecified (principal); J45.40 Moderate persistent asthma, uncomplicated; J01.91 Acute recurrent sinusitis, unspecified; R91.8 Other nonspecific abnormal finding of lung field | CPT/HCPCS: 99212 ==

== ENCOUNTER 2024-09-09 10:16 | Emergency (ER) | payer OTHER, SELFPAY ==
--- NOTE | 2024-09-09 | ECG_ITS ---
Test Reason : CHEST PAIN Blood Pressure : */* mmHG Vent. Rate : 58 BPM Atrial Rate : 58 BPM P-R Int : 134 ms QRS Dur : 94 ms QT Int : 422 ms P-R-T Axes : -9 59 55 degrees QTcB Int : 414 ms Sinus bradycardia Otherwise normal ECG When compared with ECG of 14-Aug-2024 20:30, Vent. rate has decreased by 29 bpm Referred By: Generic ED Physician Electronically Signed By: Joaquin Saunders
--- NOTE | ~2024-09-09 | XR_ITS ---
EXAMINATION: XR CHEST CLINICAL INFORMATION: chest pain COMPARISON: 08/14/2024. 09/18/2023. TECHNIQUE: 2 views of the chest were obtained. FINDINGS: The cardiac, hilar, and mediastinal contours are normal. The lungs are clear bilaterally. There is no pneumothorax or pleural effusion. There is no focal osseous or soft tissue abnormality. XR/XR chest 2V IMPRESSION: No active pulmonary disease. Electronically signed by: Harrison Patel MD 09/09/2024 11:03 AM [facility]
[2024-09-09 10:32] VITALS: BP 170/83; PULSE 61; RESP 16; TEMP 36.3; O2SAT 99; BMI 29.0
--- NOTE | 2024-09-09 10:34 | ED.CHESTPAIN ---
HPI - Chest Pain General Chief Complaint: Chest Pain Stated Complaint: chest pain Time Seen by Provider: 09/09/24 16:46 Source: patient and old records reviewed Mode of arrival: ambulatory Limitations: no limitations History of Present Illness ED Provider: MANNY MCCORD narrative: 59 yo male with PMH of HTN, chest discomfort, BPH, DM, c diff colitis, HLD, asthma, here with c/o chest pain since last night started at rest no symptoms with bike or treadmill recently. He feels mild dyspnea. No fevers, cough, recent travel or procedures. He has one area on the chest that is painful on R side. No other complaints it is dull and persistent MD complaint: chest pain Onset (ago): day(s) (last night) Timing of current episode: constant Prior episodes: Yes Onset: during rest Pain location: right chest Pain radiation: other (chest) Severity: mild Quality: dull Relieving factors: nothing Exacerbating factors: palpation and movement Associated symptoms: dyspnea Treatment prior to arrival: none Related Data Home Medications ?Medication ?Instructions ?Recorded ?Confirmed aspirin 81 mg tablet,delayed 81 mg PO DAILY 08/04/20 03/22/24 release blood sugar diagnostic (FreeStyle #10 ea 06/22/21 03/22/24 Lite Strips) lancets 33 gauge (TRUEplus Lancets) #100 ea 06/22/21 03/22/24 omeprazole 20 mg capsule,delayed 20 mg PO DAILY 08/15/22 03/22/24 release chlorthalidone 25 mg tablet mg PO 06/09/23 03/22/24 hydroxyzine HCl 25 mg tablet 25 mg PO QID 02/09/24 03/22/24 trazodone 50 mg tablet 50 mg PO BEDTIME 02/09/24 03/22/24 atorvastatin 40 mg tablet 40 mg PO ONCE 06/06/24 cetirizine 10 mg tablet (Zyrtec) 10 mg PO DAILY PRN 06/06/24 sertraline 25 mg tablet 25 mg PO DAILY 06/06/24 Previous Rx's ?Medication ?Instructions ?Recorded albuterol sulfate 90 mcg/actuation 2 puff inhalation Q6H PRN Wheezing 08/15/22 aerosol inhaler (ProAir HFA) 30 days #8.5 grams ooeoxukuva-weagobqckovwf-mitbkvxm 1 cap PO Q8H PRN pain #5 caps 03/04/23 50 mg-300 mg-40 mg capsule (Fioricet) montelukast 10 mg tablet 10 mg PO BEDTIME 30 days #30 tabs 06/09/23 (Singulair) sumatriptan succinate 50 mg tablet See Rx Instructions PO .COMPLEX 08/07/23 #10 tabs tadalafil 10 mg tablet (Cialis) 10 mg PO DAILY sexual activity 90 09/20/23 days #90 tabs cyclobenzaprine 5 mg tablet 5 mg PO TID PRN muscle spasm #14 11/23/23 tabs lidocaine 5 % topical patch 1 patch topical DAILY #15 ea 11/23/23 acetaminophen 500 mg tablet 1,000 mg (2 x 500 mg) PO Q6H PRN 12/16/23 (Tylenol Extra Strength) fever or pain #20 tabs ibuprofen 400 mg tablet 400 mg PO TID PRN fever or pain 12/16/23 #30 tabs terazosin 5 mg capsule 5 mg PO BEDTIME 90 days #90 caps 04/26/24 famotidine 40 mg tablet 40 mg PO DAILY PRN for heartburn 05/08/24 #90 tabs amlodipine 10 mg tablet 10 mg PO DAILY #90 tabs 06/24/24 lisinopril 40 mg tablet 40 mg PO DAILY #90 tabs 07/01/24 fluticasone propionate 50 2 spray intranasal DAILY #48 mL 07/15/24 mcg/actuation nasal spray,suspension meclizine 25 mg tablet 25 mg PO BID PRN dizziness #14 tabs 07/19/24 ibuprofen 600 mg tablet 600 mg PO Q6H PRN fever or pain 08/14/24 #30 tabs levofloxacin 500 mg tablet 500 mg PO DAILY 7 days #7 tabs 08/16/24 methylprednisolone 4 mg tablets in See Rx Instructions PO PER PKG DIR 08/16/24 a dose pack (Medrol (Aashish)) 6 days #21 ea cyclobenzaprine 10 mg tablet 10 mg PO TID PRN muscle spasm #20 09/09/24 tabs Allergies Allergy/AdvReac Type Severity Reaction Status Date / Time amoxicillin [AMOXICILLIN] Allergy Severe ANAPHYLAXIS Verified 09/09/24 10:32 Penicillins Allergy Severe UNKNOWN Verified 09/09/24 10:32 REACTION-CHILDHOOD doxycycline [From VIBRAMYCIN] AdvReac Mild DIARRHEA Verified 09/09/24 10:32 Clindamycin HCl Allergy Severe Anaphylaxis Uncoded 08/16/24 09:38 Review of Systems Review of Systems: Constitutional : No Weight loss, No Fever, No Chills ENT/Mouth : No sore throat, No Rhinorrhea Eyes: No Eye Pain, No Swelling Cardiovascular : pos Chest Pain, pos SOB, no Dyspnea on Exertion, No Orthopnea, No Edema, No Palpitations Respiratory : No Cough, No Sputum Gastrointestinal : no Nausea, No Vomiting, No Diarrhea, No abdominal Pain, No Hematochezia, No Melena Genitourinary : No Dysuria, No Urinary Frequency Musculoskeletal : No joint pain, No Myalgias, No Joint Swelling Skin : No Skin Lesions, No rash Neuro : No Weakness, No Numbness, No Dizziness, No Headache Psych : No Anxiety/Panic, No Depression All other systems reviewed and are negative COUNTS INCLUDE 234 BEDS AT THE [facility] Past Medical History Attestation statement: The following information was validated with the patient. Source: old records reviewed Medical History Opacity of lung on imaging study Pre-op examination GERD (gastroesophageal reflux disease) Orchialgia Weak urinary stream Asthma Nasal polyps Diabetes HTN (hypertension) Pulmonary nodules Surgical History History of esophagogastroduodenoscopy (EGD) Hx of colonoscopy H/O wrist surgery Family History Family History Father Diabetes Hypertension Mother Hypertension Hyperlipidemia Brother Hypertension Family/Other Kidney stones Prostate cancer Bladder cancer Renal cancer Social History Social History Alcohol intake: former Patient Tobacco Use Status: Former Tobacco user Tobacco use type: Cigarette Years Smoked: 30 years Advance Directives: No Advance Directives Information Provided: Yes Do you have a plan to hurt others: No Plan Physical Exam Vital Signs: Vital Signs: Last Vital Signs Temp 97.3 F 09/09/24 10:32 Pulse 61 09/09/24 10:32 Resp 16 09/09/24 10:32 BP 170/83 H 09/09/24 10:32 Pulse Ox 99 09/09/24 10:32 O2 Del Method Room Air 09/09/24 10:32 BMI result Body Mass Index 29.0 Appearance: Alert. Oriented X3. No acute distress. Eyes: Pupils equal, round and reactive to light. ENT: Pharynx normal. Neck: Normal inspection. Neck supple. CVS: Normal heart rate and rhythm. Pulses normal. Chest: R chest near pectoralis pinpoint ttp that reproduces pain Respiratory: No respiratory distress. Breath sounds normal. Abdomen: Soft and nontender. Skin: Skin warm and dry. Normal skin color. Normal skin turgor. Extremities: No lower extremity edema. No calf ttp Neuro: Oriented X 3. No motor deficit. No sensory deficit. CN2-12 intact Medical Decision Making Medical Decision Making [facility] Narrative: 59 yo male with PMH of HTN, chest discomfort, BPH, DM, c diff colitis, HLD, asthma, here with c/o chest pain since last night mild dyspnea, no resp infections, no nausea. R side pinpoint pain on R chest that is painful to touch He is not toxic appearing. No signs of VTE and no recent travel or procedures. Not worse with exertion, distal pulses intact it is atypical suspect given R sided localized more WBC. Will obtain EKG, trop, basic labs. Differential Diagnosis Differential Diagnoses: The differential diagnosis associated with the presentation includes chest wall pain distal pulses intact doubt dissection no signs of dvt, hypoxia or tachycardia to suggest VTE Admission/Observation Consideration of admission/observation: Escalation of care including admission/observation considered work up reassuring stable for DC Lab Data [facility] Lab Attestation statement: I reviewed the patient's lab results. 09/09/24 11:02 09/09/24 11:02 Labs: Lab Results 09/09/24 09/09/24 09/09/24 Range/Units 11:01 11:02 14:44 WBC 3.7 L (4.8-10.8) X10*3/uL RBC 4.60 (4.60-5.80) X10*6/uL Hgb 13.8 L (14.0-18.0) g/dl Hct 41.4 L (42.0-52.0) % MCV 90.0 (80.0-98.0) fL MCH 30.0 (27.0-33.0) pg MCHC 33.3 (31.0-36.0) g/dl RDW 13.2 (11.0-16.0) % Plt Count 208 D (160-400) X10*3/uL MPV 10.4 (9.4-12.4) fL Immature Gran % (Auto) 0.3 (0.0-0.4) % Neut % (Auto) 53.8 (45-73) % Lymph % (Auto) 32.4 (20-40) % [place] % (Auto) 10.3 (2-11) % Eos % (Auto) 2.4 (0-4) % Baso % (Auto) 0.8 (0-2) % Lymph # (Auto) 1.2 (1.2-4.9) X10*3/uL [place] # (Auto) 0.4 (0.1-1.2) X10*3/uL Eos # (Auto) 0.1 (0.0-0.4) X10*3/uL Baso # (Auto) 0.0 (0.0-0.2) X10*3/uL Abs Immat Gran (auto) 0.01 (0.00-0.03) X10*3/uL Absolute Neuts (auto) 2.0 (2.0-8.3) x10*3/uL Absolute Nucleated RBC 0.000 (0.0-0.012) X10*3/uL Nucleated RBC % (auto) 0.0 (0.0-0.2) /100WBC Sodium 142 (135-145) mmol/L Potassium 3.7 (3.3-5.1) mmol/L Chloride 108 (96-108) mmol/L Carbon Dioxide 29 (22-29) mmol/L Anion Gap 9 L (12-20) BUN 13 (9-16) mg/dL Creatinine 1.00 (0.5-1.4) mg/dL Estim Creat Clear Calc 81.3 Estimated GFR > 60 Random Glucose 147 H (60-115) mg/dL Calcium 9.2 (8.4-10.2) mg/dL Magnesium 2.0 (1.6-2.6) mg/dL Total Bilirubin 0.9 (0.0-1.0) mg/dL Direct Bilirubin 0.3 (0.0-0.5) mg/dL AST 29 (5-37) U/L ALT 23 (0-40) U/L Alkaline Phosphatase 100 (39-117) U/L Troponin I High Sens 3.2 5.2 D (<3.5-35.0) ng/L Total Protein 6.9 (6.5-8.0) g/dL Albumin 4.1 (3.5-5.0) g/dL Lipase 28 (8-78) U/L Influenza Type A (PCR) NEGATIVE (Negative) Influenza Type B (PCR) NEGATIVE (Negative) RSV RNA Qual (PCR) NEGATIVE (Negative) SARS-CoV-2 RNA (RT-PCR) NEGATIVE (Negative) Independent Interpretation I performed an independent interpretation of an: EKG and Plain X-Ray (normal ) Interpretation: Rate: 58 Rhythm: sinus bradycardia [place]: normal Normal P waves. Normal MERI. Normal QRS complex. ST T wave : artifact ant leads but no ASLMA qTC: 414 prior studies: no acute ischemia, artifact noted The study has been interpreted contemporaneously by me. . Radiology Impression Discussion of test interpretation with radiology: I have reviewed the radiologist's reading. External Record Review External record reviewed: Outpatient record Prescription Management I considered prescription management with: Other Discharge Plan Discharge Clinical Impression: Atypical chest pain Patient Disposition: Home, Self-Care Instructions: Chest Pain (ED), Chest Wall Pain (ED) Additional Instructions: labs for heart normal EKG reassuring chest xray normal no covid/flu/rsv suspect this could be strain, return for any worsening symptoms pain or any other concerns rest and stay hydrated Prescriptions: New cyclobenzaprine 10 mg tablet 10 mg PO TID PRN (Reason: muscle spasm) Qty: 20 0RF No Action terazosin 5 mg capsule 5 mg PO BEDTIME 90 Days Qty: 90 1RF famotidine 40 mg tablet 40 mg PO DAILY PRN (Reason: for heartburn) Qty: 90 4RF amlodipine 10 mg tablet 10 mg PO DAILY Qty: 90 3RF lisinopril 40 mg tablet 40 mg PO DAILY Qty: 90 3RF fluticasone propionate 50 mcg/actuation spray,suspension 2 spray intranasal DAILY Qty: 48 3RF sumatriptan succinate 50 mg tablet See Rx Instructions .ROUTE .COMPLEX Qty: 10 0RF Rx Instructions: take 1 tab at onset of headache; if no relief may repeat 1 tab after at least 2 hrs; max = 4 tabs/24 hr ajyarlbtmu-ohjrbjzlrneco-pemt [Fioricet] 50-300-40 mg capsule 1 cap PO Q8H PRN (Reason: pain) Qty: 5 0RF lidocaine 5 % adhesive patch,medicated 1 patch topical DAILY Qty: 15 0RF Rx Instructions: leave on most painful area for up to 12 hrs cyclobenzaprine 5 mg tablet 5 mg PO TID PRN (Reason: muscle spasm) Qty: 14 0RF acetaminophen [Tylenol Extra Strength] 500 mg tablet 1,000 mg PO Q6H PRN (Reason: fever or pain) Qty: 20 0RF ibuprofen 400 mg tablet 400 mg PO TID PRN (Reason: fever or pain) Qty: 30 0RF meclizine 25 mg tablet 25 mg PO BID PRN (Reason: dizziness) Qty: 14 0RF ibuprofen 600 mg tablet 600 mg PO Q6H PRN (Reason: fever or pain) Qty: 30 0RF aspirin 81 mg tablet,delayed release (DR/EC) 81 mg PO DAILY (DME) lancets [TRUEplus Lancets] 33 gauge misc See Rx Instructions Not Applicable TID Qty: 100 Rx Instructions: As directed (DME) FreeStyle Lite Strips Strip See Rx Instructions Not Applicable TID Qty: 10 Rx Instructions: As directed omeprazole 20 mg capsule,delayed release(DR/EC) 20 mg PO DAILY albuterol sulfate [ProAir HFA] 90 mcg/actuation HFA aerosol inhaler 2 puff inhalation Q6H PRN (Reason: Wheezing) 30 Days Qty: 8.5 11RF tadalafil [Cialis] 10 mg tablet 10 mg PO DAILY 90 Days Qty: 90 1RF Rx Instructions: Take daily for prostate chlorthalidone 25 mg tablet PO montelukast [Singulair] 10 mg tablet 10 mg PO BEDTIME 30 Days Qty: 30 11RF atorvastatin 40 mg tablet 40 mg PO ONCE hydroxyzine HCl 25 mg tablet 25 mg PO QID trazodone 50 mg tablet 50 mg PO BEDTIME cetirizine [Zyrtec] 10 mg tablet 10 mg PO DAILY PRN sertraline 25 mg tablet 25 mg PO DAILY levofloxacin 500 mg tablet 500 mg PO DAILY 7 Days Qty: 7 0RF methylprednisolone [Medrol (Aashish)] 4 mg tablets,dose pack See Rx Instructions PO PER PKG DIR 6 Days Qty: 21 0RF Rx Instructions: PO PER PKG DIR Print Language: South Korean
[2024-09-09 11:08] LABS: MANUAL DIFF FLAG NO
[2024-09-09 11:18] LABS: Basophils Percent Auto 0.8 % (0-2); Eosinophils Absolute Auto 0.1 X10*3/uL (0.0-0.4); Eosinophils Percent Auto 2.4 % (0-4); Hematocrit 41.4 % (42.0-52.0); Hemoglobin 13.8 g/dl (14.0-18.0); Imm Gran Abs Auto 0.01 X10*3/uL (0.00-0.03); Imm Gran Pct Auto 0.3 % (0.0-0.4); Lymphocytes Absolute Auto 1.2 X10*3/uL (1.2-4.9); Lymphocytes Percent Auto 32.4 % (20-40); Mean Corpuscular HGB Conc 33.3 g/dl (31.0-36.0); Mean Platelet Volume 10.4 fL (9.4-12.4); Monocytes Absolute Auto 0.4 X10*3/uL (0.1-1.2); Monocytes Percent Auto 10.3 % (2-11); Neutrophils Percent Auto 53.8 % (45-73); Platelet Count 208 X10*3/uL (160-400); Red Cell Distribution Width 13.2 % (11.0-16.0); White Blood Count 3.7 X10*3/uL (4.8-10.8)
[2024-09-09 11:27] LABS: Alanine Aminotransferase 23 U/L (0-40); Albumin Level 4.1 g/dL (3.5-5.0); Alkaline Phosphatase 100 U/L (39-117); Anion Gap 9 (12-20); Aspartate Amino Transferase 29 U/L (5-37); Bilirubin Direct 0.3 mg/dL (0.0-0.5); Bilirubin Total 0.9 mg/dL (0.0-1.0); Blood Urea Nitrogen 13 mg/dL (9-16); Calcium 9.2 mg/dL (8.4-10.2); Carbon Dioxide 29 mmol/L (22-29); Chloride 108 mmol/L (96-108); Creatinine Clr Calc Pharmacy 81.3; Estimated Glomerular Filt Rate > 60; Glucose Random 147 mg/dL (60-115); Lipase 28 U/L (8-78); Potassium 3.7 mmol/L (3.3-5.1); Sodium 142 mmol/L (135-145); Total Protein 6.9 g/dL (6.5-8.0)
[2024-09-09 11:36] LABS: Troponin-I High Sensitivity 3.2 ng/L (<3.5-35.0)
[2024-09-09 12:15] LABS: Influenza A PCR NEGATIVE (Negative); Influenza B PCR NEGATIVE (Negative); Resp Syncy Virus RNA Qual PCR NEGATIVE (Negative); SARS COV2 PCR INHOUSE NEGATIVE (Negative)
[2024-09-09 15:23] LABS: Troponin-I High Sensitivity 5.2 ng/L (<3.5-35.0)
[2024-09-09 16:47] VITALS: BP 145/84; PULSE 74; RESP 16; TEMP 36.7; O2SAT 99
[2024-09-09 16:53] VITALS: BP 145/84; PULSE 74; RESP 16; TEMP 36.7; O2SAT 99
== END 2024-09-09 16:54 | disposition home or self-care (01) ==
PROVIDERS: Registered Nurse Emergency; Emergency Provider Emergency Medicine; PCP Family Medicine
DX: R07.89 Other chest pain (principal); R06.00 Dyspnea, unspecified; E11.9 Type 2 diabetes mellitus without complications; I10 Essential (primary) hypertension; E78.5 Hyperlipidemia, unspecified; J45.909 Unspecified asthma, uncomplicated; Z03.818 Encounter for observation for suspected exposure to other biological agents ruled out; Z87.891 Personal history of nicotine dependence
CPT/HCPCS: 0241U; 36415; 71046; 80048; 80076; 83690; 83735; 84484; 85025; 93005; 99283

== ENCOUNTER → 2024-09-09 10:26 | Outpatient (BNV) | payer OTHER, SELFPAY | PROVIDERS: Emergency Provider Emergency Medicine; PCP Family Medicine; Visit Provider Internal Medicine Cardiovascular Disease | DX: R07.9 Chest pain, unspecified (principal) | CPT/HCPCS: 93010 ==

== ENCOUNTER → 2024-09-09 10:34 | Outpatient (BNV) | payer OTHER, SELFPAY | PROVIDERS: PCP Family Medicine; Visit Provider Radiology Diagnostic Radiology | DX: R07.9 Chest pain, unspecified (principal) | CPT/HCPCS: 71046 ==

== ENCOUNTER 2024-09-17 11:17 | Outpatient (AMB) | payer OTHER, SELFPAY ==
--- NOTE | 2024-09-17 11:17 | A.OFFVIS_ITS ---
Intake Visit Reasons: 6M PSA/Testo(set) Intake Note: Patient is present for 6M PSA/TESTO Urology Medication:NONE Antibiotic Allergy:AMOXICILLIN,PENICILLIN,DOXYCYCLINE,CLINDAMYCIN Blood Thinner:ASPIRIN Automation/Controls Manager Required: No Allergies amoxicillin [AMOXICILLIN] Allergy (Severe, Verified 09/17/24 11:18) ANAPHYLAXIS Penicillins Allergy (Severe, Verified 09/17/24 11:18) UNKNOWN REACTION-CHILDHOOD doxycycline [From VIBRAMYCIN] Adverse Reaction (Mild, Verified 09/17/24 11:18) DIARRHEA Clindamycin HCl Allergy (Severe, Uncoded 09/17/24 11:18) Anaphylaxis HPI Comments Details: Bobby is a very pleasant male. He is a patient of Dr Frankel. He is seen in the office today for the following urologic conditions. - lower urinary tract symptoms - erectile dysfunction Telemedicine Evaluation 15 min Consultation Toopher Naye Video Six-month follow-up Previously prescribed Cialis 10 mg daily States can not afford prescription Reports significant urgency and frequency despite terazosin 5 mg Recommend bladder ultrasound with office cystoscopy Erectile dysfunction background type 2 diabetes Progressive 09/19 response to high-dose daily Cialis Labs - 08/20 T 320 PSA 0.7 Lower Urinary Tract Symptoms:? Current visit is for?further evaluation of, lower urinary tract symptoms, predominate obstructive symptoms ?- less nocturia.? Current treatment includes?medication, alpha jesus - tamsulosin 0.4 mg ? Symptoms include?09/16 , weak stream, straining, and are progressing ?10/17 improved stream Labs - 07/17 0.9, 09/20 0.9 ? Associated conditions? diabetes ?Yes ? erectile dysfunction ?Yes ? Treatment plan?daily tadalafil medications.? PFSH Medical History Opacity of lung on imaging study Pre-op examination GERD (gastroesophageal reflux disease) Orchialgia Weak urinary stream Asthma Nasal polyps Diabetes HTN (hypertension) Pulmonary nodules Surgical History History of esophagogastroduodenoscopy (EGD) Hx of colonoscopy H/O wrist surgery Family History Father Diabetes Hypertension Mother Hypertension Hyperlipidemia Brother Hypertension Family/Other Kidney stones Prostate cancer Bladder cancer Renal cancer Social History Alcohol intake: former Patient Tobacco Use Status: Former Tobacco user Tobacco use type: Cigarette Years Smoked: 30 years Review of Systems Const All systems reviewed & are unremarkable except as noted in HPI and below Reports no additional complaints Resp Reports no additional complaints GI Reports no additional complaints Reports as per HPI Musc Reports no additional complaints Physical Exam Telemedicine evaluation Appropriate responses Regular breathing rate and rhythm HEENT Head: Yes normal to inspection Ears: hearing grossly normal bilaterally Eyes General: appearance normal, both eyes and all related structures Neck Neck: Yes normal visual inspection Chest Chest palpation & inspection: normal inspection of the chest Resp Effort & Inspection: normal respiratory effort and able to speak in complete se ntences Telehealth Telehealth Telehealth Platform: Toopher Location of provider rendering services: practice address Location of patient: address on file Patient Identification confirmed using: Name, : Yes Telehealth method: video Patient verbally consented to treatment: Yes Patient verbally consented to billing insurance company: Yes Patient informed of any privacy concerns related to visit: Yes Minutes spent on Phone/Video with Pt.: 15 Assessment & Plan Assessment & Plan (1) BPH w urinary obs/LUTS: Code(s): N40.1 - Benign prostatic hyperplasia with lower urinary tract symptoms; N13.8 - Other obstructive and reflux uropathy Category: Medical (2) Nocturia more than twice per night: Code(s): R35.1 - Nocturia Category: Medical Plan Bladder ultrasound with office cystoscopy Orders: Orders US bladder Today N13.8 - Other obstructive and reflux uropathy, N40.1 - Benign prostatic hyperplasia with lower urinary tract symptoms, R39.12 - Poor urinary stream Patient Instructions: Imaging studies, laboratory and physical exam results were discussed and reviewed in detail. No major barriers to patient understanding were identified. An opportunity to ask questions regarding the treatment plan was provided. All questions were answered. The patient expressed understanding and agreement with the above treatment plan. The patient is aware they should contact our office by phone for worsening of their current condition or the appearance of new urologic symptoms. Compliance is encouraged with any medications and followup testing that is ordered. It is a privilege to participate in the urologic care of your patient. If you have any questions or concerns regarding treatment for the above conditions, or other urologic issues, please do not hesitate to contact me. The office telephone contact is [phone]. This note is constructed using voice recognition software. While every effort has been made to ensure accuracy manager of operations errors may have been included. Yours sincerely, Dr Kishore Dorsey MD, [facility] - Urology Providers of Expert, Compassionate Care for the Genitourinary System Coding Level of Care Code Tele Est Pt Level 3 (76276) Diagnoses BPH w urinary obs/LUTS N40.1; N13.8 Nocturia more than twice per night R35.1
--- OUTSIDE RECORDS SUMMARY | 2024-09-17 13:01 | XMS_ITS | Encounter Summary ---
Author Organization [employer] Address [address] [place] [address] Care Team Providers Care Brick Pitcher Name Role Phone Ashley Frankel MD Primary Care Provider [phone] Hoang, November Unavailable Kishore Dorsey MD Unavailable Raheel Gee Unavailable [phone] Riya Fulton Unavailable Sergio Hackett Unavailable Unavailable Dominga Silva PharmD Unavailable Reason for Visit * Reason Comments Med Refill Encounter Details Date Type Department Care Team (Late st Contact Info) Description 07/24/2023 Refill [facility] [address] [place] [address] [facility] [address] [place], [place] [id number] Prostatitis, acute Social History Tobacco Use Types Packs/Day Years Used Date Smoking Tobacco: Former Cigarettes Smokeless Tobacco: Never Housing Stability Answer Date Recorded What is your housing situation today? I have jo sommer 06/11/[address] you li ve. Do you have problems with any of the following? None of the above 06/11/2023 Food Insecurity Answer Date Recorded Within the past 12 months, y ou worried that your food would run out before you got money to buy more: Never True 06/11/2023 Within the past 12 months,th e food you bought just didn't last and you didn't have enough money to get more: Never True Transportation Answer Date Recorded In the past 12 months, has l ack of transportation kept you from medical appts, meetings, work or from getting things needed for daily living? No 06/11/2023 Utilities Answer Date Recorded In the past 12 months, has t he electric, gas, oil or water company threatened to shut off services in your home? No 06/11/2023 Depression Answer Date Recorded Patient Health Questionnaire-2 Score 0 11/09/2022 Sex and Gender Information Value Date Recorded Sex Assigned at Male 06/27/2022 10:18 AM EDT Legal Sex Male 10:18 AM EDT Gender Identity Male 06/27/2022 10:18 AM EDT Sexual Orientation Straight 06/27/2022 10 :18 AM EDT documented as of this encounter Plan of Treatment Upcoming Encounters Date Type Department Care Team (Late st Contact Info) Description 10/24/2024 9:15 AM EST Office Visit [facility] MEDICINE [address] [place] [phone] Ashley Frankel MD [address] [place] [phone] 12/09/2024 8:00 AM EDT Office Visit [facility] ADULT DENTAL [address] [place] [phone] Jackie Peacock documented as of this encounter Visit Diagnoses Diagnosis Prostatitis, acute Acute prostatitis Palpitations- Primary 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 ([facility]) Dietary counseling Dietary surveillance and counseling Exercise counseling Overweight documented in this encounter Care Teams Brick Pitcher Relationship Specialty Start Date End Date Ashley Frankel MD [address] [place] [id number] PCP - General Family Medicine 08/28/[address] [place] [address] Gastroenterology 07/17/24 Kishore Dorsey MD [address] [place] [address] Urology 07/17/24 Raheel Gee [address] [place], [place] [address] Pulmonary Disease 07/17/24 Riya Fulton [address] [facility] [address] [place] [address] Cardiology 07/17/24 Sergio Hackett [address] [place] [address] Orthopaedic Surgery 07/17/24 Dominga Silva, Mehrdad [address] [place] [phone] Pharmacist Internal Medicine 07/22/24 documented as of this encounter
--- OUTSIDE RECORDS SUMMARY | 2024-09-17 13:01 | XMS_ITS | Encounter Summary ---
Author Organization [employer] Address [address] [facility] 7t [place] [address] Care Team Providers Care Director Dance Name Role Phone Ashley Frankel MD Primary Care Provider [phone] Viktor November Unavailable Kishore Dorsey MD Unavailable Raheel Gee Unavailable [phone] Riya Fulton Unavailable Sergio Hackett Unavailable Unavailable Dominga Silva PharmD Unavailable Encounter Details Date Type Department Care Team (Late st Contact Info) Description 09/17/2024 Telephone [facility] MEDICINE 230 [place], [place] [phone] Ashley Frankel MD 230 [place], [place] [phone] Social History Tobacco Use Types Packs/Day Years Used Date Smoking Tobacco: Former Cigarettes Smokeless Tobacco: Never Depression Answer Date Recorded Patient Health Questionnaire-9 Score 0 07/17/2024 Patient Health Questionnaire-9 Score 0 07/17/2024 Last PHQ-9: Questionnaire Data Not on file 1 09/16/2023 Housing Stability Answer Date Recorded What is your housing situation today? I have jo sommer 11/02/[address] you li ve. Do you have problems with any of the following? Mold 11/02/2023 Food Insecurity Answer Date Recorded Within the past 12 months, y ou worried that your food would run out before you got money to buy more: Sometimes True 2023 Within the past 12 months,th e food you bought just didn't last and you didn't have enough money to get more: Sometimes True 11/02/2023 Transportation Answer Date Recorded In the past [...] Date Recorded Patient Health Questionnaire-2 Score 0 07/17/2024 Sex and Gender Information Value Date Recorded Sex Assigned at Male 06/27/2022 10:18 AM EDT Legal Sex Male 10:18 AM EDT Gender Identity Male 06/27/2022 10:18 AM EDT Sexual Orientation Straight 06/27/2022 10 :18 AM EDT documented as of this encounter Plan of Treatment Upcoming Encounters Date Type Department Care Team (Late st Contact Info) Description 10/24/2024 9:15 AM EST Office Visit [facility] MEDICINE [address] [place] [address] Ashley Frankel MD [address] [place] [address] 12/09/2024 8:00 AM EDT Office Visit [facility] ADULT DENTAL [address] [place] [address] Jackie Peacock documented as of this encounter Visit Diagnoses Not on filedocumented in this encounter Additional Health Concerns Assessment Noted Time PHQ-9 Depression Total Score: 0 07/17/20 24 10:33 AM EST documented as of this encounter Care Teams Director Dance Relationship Specialty Start Date End Date Ashley Frankel MD [address] [place] [address] PCP - General Family Medicine 08/28/18HoangNovember [address] 3rd [place] [address] Gastroenterology 07/17/24 Kishore Dorsey MD [address] [place] [address] Urology 07/17/24 Raheel Gee 5 [place], [place] 10[address] Pulmonary Disease 07/17/24 Riya Fulton [address] 3rd [place] [address] Cardiology 07/17/24 Sergio Hackett [address] [facility] 2nd [place] [address] Orthopaedic Surgery 07/17/24 Dominga Silva, AnanthD 230 [place] [address] Pharmacist Internal Medicine 07/22/24 documented as of this encounter
--- OUTSIDE RECORDS SUMMARY | 2024-09-17 13:01 | XMS_ITS | Encounter Summary ---
Author Organization [employer] Address [address] [facility] 7t [place] [address] Care Team Providers Care Orthotic Assistant Name Role Phone Ashley Frankel MD Primary Care Provider [phone]- [phone] Hoang, November Unavailable Kishore Dorsey MD Unavailable [phone] Raheel Gee Unavailable [phone] Riya Fulton Unavailable Sergio Hackett Unavailable Unavailable Dominga Silva PharmD Unavailable Encounter Details Date Type Department Care Team (Late st Contact Info) Description 07/18/2023 Telephone [facility] MEDICINE 230 [place], [place] [phone] Ashley Frankel MD 230 [place], [place] [phone] Social History Tobacco Use Types Packs/Day Years [...] AM EDT documented as of this encounter Miscellaneous Notes * Telephone Encounter - Bia Rose - 08/10/2023 1:42 PM EST Day Spa Manager called pt to request verification of insurance/Medicare Member ID# as is needed for completion of PA form. Left message requesting call back. * Telephone Encounter - Alirio Gee - 07/18/2023 3:18 PM EST Tc from pt requesting test strips needing prior authorization. documented in this encounter Plan of Treatment Upcoming Encounters Date Type Department Care Team (Late st Contact Info) Description 10/24/2024 9:15 AM EST Office Visit [facility] MEDICINE 230 [place] [address] Ashley Frankel MD 230 [place] [address] 12/09/2024 8:00 AM EDT Office Visit [facility] ADULT DENTAL 230 [place] [address] Jackie Peacock documented as of this encounter Visit Diagnoses Not on filedocumented in this encounter Care Teams Orthotic Assistant Relationship Specialty Start Date End Date Ashley Frankel MD [address] [place] [address] PCP - General Family Medicine 08/28/18 Sonya Hoang [address] 3rd [place] [address] Gastroenterology 07/17/24 Kishore Dorsey MD [address] [place] [address] Urology 07/17/24 Raheel Gee 5 [place], [place] 1040 Pulmonary Disease 07/17/24 Riya Fulton 11 [facility] 3rd [place] [address] Cardiology 07/17/24 Sergio Hackett [address] [place] [address] Orthopaedic Surgery 07/17/24 Dominga Silva, AnanthD 230 [place] [address] Pharmacist Internal Medicine 07/22/24 documented as of this encounter
--- OUTSIDE RECORDS SUMMARY | 2024-09-17 13:01 | XMS_ITS | Encounter Summary ---
Author Organization [employer] Address [address] [place] [address] 7t [place] [address] Care Team Providers Care C Application Developer Name Role Phone Ashley Frankel MD Primary Care Provider [phone] Viktor Sonya Unavailable Kishore Dorsey MD Unavailable Raheel Gee Unavailable [phone] Riya Fulton Unavailable Sergio Hackett Unavailable Unavailable Dominga Silva PharmD Unavailable Encounter Details Date Type Department Care Team (Late st Contact Info) Description 07/25/2022 Abstract [facility] ADULT DENTAL [address] [place] [address] Dental, Provider, DDS Social History Tobacco Use Types Packs/Day Years Used Date Smoking Tobacco: Never Assessed Sex and Gender Information Value Date Recorded Sex Assigned at Male 06/27/2022 10:18 AM EDT Legal Sex Male 10:18 AM EDT Gender Identity Male 06/27/2022 10:18 AM EDT Sexual Orientation Straight 06/27/2022 10 :18 AM EDT documented as of this encounter Plan of Treatment Upcoming Encounters Date Type Department Care Team (Late st Contact Info) Description 10/24/2024 9:15 AM EST Office Visit [facility] MEDICINE 230 [place] [address] Ashley Frankel MD 230 [place], [place] [phone] 12/09/2024 8:00 AM EDT Office Visit [facility] ADULT DENTAL 230 [place] [address] Jackie Peacock documented as of this encounter Procedures Procedure Name Priority Date/Time Associated Diagnosis Comments 29 B(V) COMPOSITE FILLING Routine 07/25/2022 12:00 AM EST 28 B(V) COMPOSITE FILLING Routine 07/25/2022 12:00 AM EST 21 B(V)O COMPOSITE FILLING Routine 07/25/2022 12:00 AM EST 20 B(V)O COMPOSITE FILLING Routine 07/25/2022 12:00 AM EST 12 B(V) COMPOSITE FILLING Routine 07/25/2022 12:00 AM EST 11 F(V) COMPOSITE FILLING Routine 07/25/2022 12:00 AM EST 10 F(V) COMPOSITE FILLING Routine 07/25/2022 12:00 AM EST 6 F(V) COMPOSITE FILLING Routine 07/25/2022 12:00 AM EST 5 B(V) COMPOSITE FILLING Routine 07/25/2022 12:00 AM EST 13 DB COMPOSITE FILLING Routine 07/25/2022 12:00 AM EST 18,19,22,30,31 PARTIAL DENTURE - RESIN Routine 02/08/2018 12:00 AM EDT 2,3,4,14,15 PARTIAL DENTURE - RESIN Routine 02/08/2018 12:00 AM EDT documented in this encounter Visit Diagnoses Not on filedocumented in this encounter Care Teams C Application Developer Relationship Specialty Start Date End Date Ashley Frankel MD 230 [place] [address] PCP - General Family Medicine 08/28/18November [address] 3rd [place] [address] Gastroenterology 07/17/24 Kishore Dorsey MD [address] [place] [address] Urology 07/17/24 Raheel Gee 5 [place] 1040 Pulmonary Disease 07/17/24 Riya Fulton [address] 3rd [place] [address] Cardiology 07/17/24 Sergio Hackett [address] 2nd [place] [address] Orthopaedic Surgery 07/17/24 Dominga Silva, Mehrdad [address] [place] [address] Pharmacist Internal Medicine 07/22/24 documented as of this encounter
--- OUTSIDE RECORDS SUMMARY | 2024-09-17 13:01 | XMS_ITS | Encounter Summary ---
Author Organization [employer] Address [address] [place] [address] 7t [place] [address] Care Team Providers Care Front Worker Name Role Phone Ashley Frankel MD Primary Care Provider [phone]- [phone] Viktor Sonya Unavailable Kishore Dorsey MD Unavailable Raheel Gee Unavailable [phone] Riya Fulton Unavailable Sergio Hackett Unavailable Unavailable Dominga Silva PharmD Unavailable Encounter Details Date Type Department Care Team (Late st Contact Info) Description 09/13/2022 Abstract [facility] MEDICINE [address] [place] [address] [phone] Ashley Frankel MD [address] [place] [address] [phone] Social History Tobacco Use Types Packs/Day Years Used Date Smoking Tobacco: Never Smokeless Tobacco: Never Sex and Gender Information Value Date Recorded Sex Assigned at Male 06/27/2022 10:18 AM EDT Legal Sex Male 10:18 AM EDT Gender Identity Male 06/27/2022 10:18 AM EDT Sexual Orientation Straight 06/27/2022 10 :18 AM EDT documented as of this encounter Plan of Treatment Upcoming Encounters Date Type Department Care Team (Late st Contact Info) Description 10/24/2024 9:15 AM EST Office Visit [facility] MEDICINE [address] [place] [phone] Ashley Frankel MD 230 [place] [address] 12/09/2024 8:00 AM EDT Office Visit [facility] ADULT DENTAL 230 [place] [address] Jackie Peacock documented as of this encounter Procedures Procedure Name Priority Date/Time Associated Diagnosis Comments COLONOSCOPY Routine 09/06/2012 documented in this encounter Results * Colonoscopy (09/06/2012) [facility] Signature Colonoscopy normal with Dr. Barrera us Historical Provider HEALTH MAINTENANCE Final Result documented in this encounter Visit Diagnoses Not on filedocumented in this encounter Care Teams Front Worker Relationship Specialty Start Date End Date Ashley Frankel MD [address] [place] [address] PCP - General Family Medicine 08/28/18November [address] [place] [address] Gastroenterology 07/17/24 Kishore Dorsey MD [address] [place] [address] Urology 07/17/24 Raheel Gee 5 [place], [place] 1040 Pulmonary Disease 07/17/24 Riya Fulton [address] [place] [address] Cardiology 07/17/24 Sergio Hackett [address] [place] [address] Orthopaedic Surgery 07/17/24 Dominga Silva, Mehrdad 230 [place] [address] Pharmacist Internal Medicine 07/22/24 documented as of this encounter
--- OUTSIDE RECORDS SUMMARY | 2024-09-17 13:01 | XMS_ITS | Encounter Summary ---
Author Organization [employer] Address [address] [place] [address] 7t [place] [address] Care Team Providers Care Director Of Retail Operations Name Role Phone Ashley Frankel MD Primary Care Provider [phone] Viktor Sonya Unavailable Kishore Dorsey MD Unavailable [phone] Raheel Gee Unavailable [phone] Riya Fulton Unavailable Sergio Hackett Unavailable Unavailable Dominga Silva PharmD Unavailable Encounter Details Date Type Department Care Team (Latest Contact Info) Description 07/04/2019 Abstract [facility] CONVERSIONS Dental, Provider, DDS Social History Tobacco Use [...] Description 10/24/2024 9:15 AM EST Office Visit [facility] MEDICINE 230 [place], [place] [phone] Ashley Frankel MD 230 [place], [place] [phone] 12/09/2024 8:00 AM EDT Office Visit [facility] ADULT DENTAL 230 [place] [address] Jackie Peacock documented as of this encounter Visit Diagnoses Not on filedocumented in this encounter Care Teams Director Of Retail Operations Relationship Specialty Start Date End Date Ashley Frankel MD 230 [place] [address] PCP - General Family Medicine 08/28/18 Viktor November [address] 3rd [place] [address] Gastroenterology 07/17/24 Kishore Dorsey MD [address] [place] [address] Urology 07/17/24 Raheel Gee 5 [place], [place] 1040 Pulmonary Disease 07/17/24 Riya Fulton 11 [facility] 3rd [place] [address] Cardiology 07/17/24 Sergio Hackett [address] [place] [address] Orthopaedic Surgery 07/17/24 Dominga Silva PharmD 230 [place] [address] Pharmacist Internal Medicine 07/22/24 documented as of this encounter
--- OUTSIDE RECORDS SUMMARY | 2024-09-17 13:01 | XMS_ITS | Encounter Summary ---
Author Organization [employer] Address [address] [place] [address] [address], [place] [address] Care Team Providers Care Compress Engineer Name Role Phone Ashley Frankel MD Primary Care Provider [phone] Viktor Sonya Unavailable Kishore Dorsey MD Unavailable Raheel Gee Unavailable [phone] Riya Fulton Unavailable Sergio Hackett Unavailable Unavailable Dominga Silva PharmD Unavailable Encounter Details Date Type Department Care Team (Latest Contact Info) Description 06/08/2022 Abstract [facility] CONVERSIONS Dental, Provider, DDS Social History Tobacco [...] Description 10/24/2024 9:15 AM EST Office Visit [facility] MEDICINE 230 [place], [place] [phone] Ashley Frankel MD 230 [place], [place] [phone] 12/09/2024 8:00 AM EDT Office Visit [facility] ADULT DENTAL 230 [place] [address] Jackie Peacock documented as of this encounter Visit Diagnoses Not on filedocumented in this encounter Care Teams Compress Engineer Relationship Specialty Start Date End Date Ashley Frankel MD 230 [place] [address] PCP - General Family Medicine 08/28/18 Viktor November [address] [place] [address] Gastroenterology 07/17/24 Kishore Dorsey MD [address] [place] [address] Urology 07/17/24 Raheel Gee 5 [place] 10[address] Pulmonary Disease 07/17/24 Riya Fulton 11 [facility] 3rd [place] [address] Cardiology 07/17/24 Sergio Hackett [address] [place] [address] Orthopaedic Surgery 07/17/24 Dominga Silva PharmD 230 [place] [address] Pharmacist Internal Medicine 07/22/24 documented as of this encounter
--- OUTSIDE RECORDS SUMMARY | 2024-09-17 13:01 | XMS_ITS | Encounter Summary ---
Author Organization [employer] Address [address] [place] [address] 7t [place] [address] Care Team Providers Care Touring Production Manager Name Role Phone Ashley Frankel MD Primary Care Provider [phone] Viktor November Unavailable Kishore Dorsey MD Unavailable Raheel Gee Unavailable [phone] Riya Fulton Unavailable Sergio Hackett Unavailable Unavailable Dominga Silva PharmD Unavailable [phone] Reason for Visit * Reason Onset Date Comments Appointment Request 08/05/2024 Encounter Details Date Type Department Care Team (Late st Contact Info) Description 08/05/2024 Telephone [facility] MEDICINE 230 [place] [address] Ashley Frankel MD 230 [place] [address] Appointment Request Social History Tobacco Use Types Packs/Day Years [...] the past 12 months, has t he [employer], gas, oil or water [employer] threatened to shut off services in your [...] encounter Miscellaneous Notes * Telephone Encounter - Luis Blevins - 08/05/2024 9:38 AM EST TC from pt reports missing todays visit. Wanting to reschedule documented in this encounter Plan of Treatment Upcoming Encounters Date Type Department Care Team (Late st Contact Info) Description 10/24/2024 9:15 AM EST Office Visit [facility] MEDICINE [address] [place] [address] Ashley Frankel MD 230 [place] [address] 12/09/2024 8:00 AM EDT Office Visit [facility] ADULT DENTAL [address] [place] [address] Jackie Peacock documented as of this encounter Visit Diagnoses Not on filedocumented in this encounter Additional Health Concerns Assessment Noted Time PHQ-9 Depression Total Score: 0 07/17/20 24 10:33 AM EST documented as of this encounter Care Teams Touring Production Manager Relationship Specialty Start Date End Date Ashley Frankel MD 230 [place] [address] PCP - General Family Medicine 08/28/18 Sonya Hoang [address] [place] [address] Gastroenterology 07/17/24 Kishore Dorsey MD [address] [place] [address] Urology 07/17/24 Raheel Gee 5 [place], [place] 10[address] Pulmonary Disease 07/17/24 Riya Fulton [address] [address] Cardiology 07/17/24 Sergio Hackett [address] [place] [address] Orthopaedic Surgery 07/17/24 Dominga Silva PharmD 230 [place] [address] Pharmacist Internal Medicine 07/22/24 documented as of this encounter
--- OUTSIDE RECORDS SUMMARY | 2024-09-17 13:01 | XMS_ITS | Clinical Summary ---
Author Organization [employer] Address [address] [place] [address] 7 [place] [address] Care Team Providers Care Comber Tender Name Role Phone Ashley Frankel MD Primary Care Provider [phone] November Unavailable Kishore Dorsey MD Unavailable [phone] Raheel Gee Unavailable [phone] Riay Fulton Unavailable Sergio Hackett Unavailable Unavailable Dominga Silva PharmD Unavailable [phone] Allergies Active Allergy Reactions Criticality Noted Date Comments Amoxicillin 08/01/2022 Clindamycin Anaphylaxis High 03/29/2012 Doxycycline Diarrhea Low 01/31/2023 Penicillins Anaphylaxis High 04/06/2012 Other reaction(s): UNKNOWN REACTION-CHILDHOOD Medications fluticasone (Flonase) 50 MCG/ACT nasal sprayIndications :Allergic rhinitis, unspecified seasonality, unspecified trigger 2 SPRAY INTRANASALLY DAILY 16 g 3 3 Active albuterol 108 (90 Base) MCG/ACT inhalerIndicatio ns:Mild intermittent asthma without complication INHALE 2 PUFFS BY MOUTH EVERY 4 HOURS NEEDED FOR SHORTNESS OF BREATH 18 g 1 4 Active tadalafil (Cialis) 10 MG tabletIndication s:Erectile dysfunction, unspecified erectile dysfunction type 10 mg. 4 Active terazosin (Hytrin) 5 MG capsuleIndicatio ns:Benign prostatic hyperplasia with lower urinary tract symptoms, symptom details unspecified 5 mg. 4 Active cetirizine (ZyrTEC) 10 MG tabletIndication s:Allergic rhinitis, unspecified seasonality, unspecified trigger TAKE 1 TABLET BY MOUTH EVERY DAY NEEDED 90 tablet 4 Active amLODIPine (Norvasc) 10 MG tabletIndication s:Primary hypertension Take 1 tab po daily 90 tablet 3 4 Active chlorthalidone (Hygroton) 25 MG tabletIndication s:Primary hypertension Take 1 tab po daily 90 tablet 3 4 Active lisinopril 40 MG tabletIndication s:Primary hypertension Take 1 tab po daily 90 tablet 3 4 Active FreeStyle lancetsIndicatio ns:Type 2 diabetes mellitus without complication, without long-term current use of insulin ([facility]) 1 each by Other route 2 times daily. Use bid, dx type 2 diabetes 60 each 11 4 Active glucose blood (FREESTYLE LITE) test stripIndications :Type 2 diabetes mellitus without complication, without long-term current use of insulin ([facility]) USE TO TEST BLOOD SUGAR TWICE A DAY 100 strip 11 4 Active atorvastatin (Lipitor) 80 MG tablet Take 1 tablet (80 mg) by mouth Once per day. 90 tablet 3 4 025 Active Blood Pressure kitIndications:P rimary hypertension USE DIRECTED 1 kit 4 Active meclizine (Antivert) 25 MG tablet 4 Active hydrOXYzine HCl (Atarax) 25 MG tablet TAKE 1-2 TABLETS BY MOUTH TWICE A DAY NEEDED FOR ANXIETY OR AT NIGHT FOR SLEEP 4 Active traZODone (Desyrel) 50 MG tablet TAKE 1 TABLET BY MOUTH EVERY NIGHT AT BEDTIME NEEDED 1 TABLET NEEDED FOR SLEEP 4 Active Active Problems Patient Care Coordination No te Formatting of this note migh t be different from the original. 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 This is nonspecific and may be projectional, however, a developing infiltrate cannot be excluded. Rectal bleeding 07/22/2024 Overview (07/22/2024): Moderate internal hemorrhoids Basal cell carcinoma (BCC) 07/17/2024 Overview (07/17/2024): Removal 2021. New found mass on left pentecostal. - Referred to Plastic Surgery 07/16/24 Assessment & Plan (07/17/2024 10:23 AM EST): Removal 2021. New found mass on left pentecostal. - Referred to Plastic Surgery 07/16/24 Cardiac risk counseling 06/04/2024 Overview (07/17/2024): Calculated 07/17/24: high risk The 10-year ASCVD risk score (Barbara GONSALEZ, et al., 2019) is: 20.5% Values used to calculate the score: Age: 58 years Sex: Male Is Non- : No Diabetic: Yes Tobacco smoker: No Systolic Blood Pressure: 162 mmHg Is BP treated: Yes HDL Cholesterol: 60 mg/dL Total Cholesterol: 185 mg/dL Lab Results Component Value Date LDLCHOL 106 (H) 11/11/2022 LDLCHOL 139 (H) 01/18/2022 -Atherosclerotic Cardiovascular Disease (ASCVD) Risk Calculator is intended for a person age 40-79 without ASCVD and with LDL-cholesterol < 190/mg/dl to assesses the chances of developing heart disease over the next 10 years. -Tobacco cessation: not applicable -Statin therapy: atorvastatin 80mg -Importance of moderate physical activity and nutrition interventions discussed. Assessment & Plan (07/17/2024 10:22 AM EST): Calculated 07/17/24: high risk The 10-year ASCVD risk score (Barbara GONSALEZ, et al., 2019) is: 20.6% Values used to calculate the score: Age: 58 years Sex: Male Is Non- : No Diabetic: Yes Tobacco smoker: No Systolic Blood Pressure: 162 mmHg Is BP treated: Yes HDL Cholesterol: 59 mg/dL Total Cholesterol: 183 mg/dL Lab Results Component Value Date LDLCHOL 106 (H) 11/11/2022 LDLCHOL 139 (H) 01/18/2022 -Atherosclerotic Cardiovascular Disease (ASCVD) Risk Calculator is intended for a person age 40-79 without ASCVD and with LDL-cholesterol < 190/mg/dl to assesses the chances of developing heart disease over the next 10 years. -ACC/AHA risk categories based on a person's estimated 10-year risk of CVD: ?Low - <5 percent ?Borderline risk - 5 to 7.4 percent ?Intermediate risk- 7.5 to 19.9 percent ?High risk- >=20 percent -Tobacco cessation: not applicable -Statin therapy:atorvastatin 40mg -Importance of moderate physical activity and nutrition interventions discussed. Acute bilateral low back pain without sciatica 0 03/05/2024 Ankylosis of spine 12/20/2023 Diffuse idiopathic skeletal hyperostosis of cervicothoracic spine 12/20/2023 Chronic low back pain with bilateral sciatica Overview (11/13/2023): -referred to physical therapy and have xray taken Assessment & Plan (11/13/2023 11:06 AM EDT): -referred to physical therapy and have xray taken Chronic migraine without aura 10/02/2023 Benign prostatic hyperplasia with urinary obstru ction 04/27/2023 Overview (03/25/2024): -Followed by urology, Dr. Dorsey, seen 03/25/24 Hard of hearing 04/27/2023 History of Clostridioides difficile colitis 03/30 Migraine 04/27/2023 Nasal polyps 04/27/2023 Pulmonary nodules 04/27/2023 Overview (11/13/2023): Chest CT on 07/29/2019 showed a focal density in the left lower lobe which could reflect atelectasis, though a lung nodule cannot be excluded. Coronary artery calcifications were also found. Chest CT on 12/25/2019 showed nodule posterior lateral left lower lobe approximately 9 x 6 x 5 mm, stable from recent prior CT 07/29/2019. Recommend follow-up noncontrast CT chest in [address] also showed Incidental scattered bilateral calcified granulomata, more numerous on right. No adenopathy or effusion. Patient is followed by pulmonology. He reports had repeat CT done Dec 3 with not change. Will request report. He has not other concerns. Followed by pulmonology , Dr. Milligan, last ween 11/2020 and due for repeat CT May 2021 -Have a follow up in November 2023 Assessment & Plan (11/13/2023 10:45 AM EDT): Chest CT on 07/29/2019 showed a focal density in the left lower lobe which could reflect atelectasis, though a lung nodule cannot be excluded. Coronary artery calcifications were also found. Chest CT on 12/25/2019 showed nodule posterior lateral left lower lobe approximately 9 x 6 x 5 mm, stable from recent prior CT 07/29/2019. Recommend follow-up noncontrast CT chest in [address] also showed Incidental scattered bilateral calcified granulomata, more numerous on right. No adenopathy or effusion. Patient is followed by pulmonology. He reports had repeat CT done Dec 3 with not change. Will request report. He has not other concerns. Followed by pulmonology , Dr. Milligan, last ween 11/2020 and due for repeat CT May 2021 -Have a follow up in November 2023 Assessment & Plan (07/05/2023 10:14 AM EST): Chest CT on 07/29/2019 showed a focal density in the left lower lobe which could reflect atelectasis, though a lung nodule cannot be excluded. Coronary artery calcifications were also found. Chest CT on 12/25/2019 showed nodule posterior lateral left lower lobe approximately 9 x 6 x 5 mm, stable from recent prior CT 07/29/2019. Recommend follow-up noncontrast CT chest in [address] also showed Incidental scattered bilateral calcified granulomata, more numerous on right. No adenopathy or effusion. Patient is followed by pulmonology. He reports had repeat CT done Dec 3 with not change. Will request report. He has not other concerns. Followed by pulmonology , Dr. Milligan, last ween 11/2020 and due for repeat CT May 2021 Sinusitis 04/27/2023 Chest discomfort 04/27/2023 Overview (10/02/2023): Extensive hx atypical chest pain with multiple ER visits for such. -Pt has had a haltor monitor. -Echocardiogram done was normal. -Stress test done 02/04/2020 was unremarkable -Continue to optimize risk factors. Assessment & Plan (11/13/2023 10:46 AM EDT): Extensive hx atypical chest pain with multiple ER visits for such. -Pt has had a haltor monitor. -Echocardiogram done was normal. -Stress test done 02/04/2020 was unremarkable -Continue to optimize risk factors. Assessment & Plan (07/05/2023 10:16 AM EST): Extensive hx atypical chest pain with multiple ER visits for such. -Pt has had a haltor monitor. -Echocardiogram done was normal. -Stress test done 02/04/2020 was unremarkable -Continue to optimize risk factors Assessment & Plan (04/27/2023 10:04 AM EDT): Extensive hx atypical chest pain with multiple ER visits for such. -Pt has had a haltor monitor. -Echocardiogram done was normal. -Stress test done 02/04/2020 was unremarkable -Continue to optimize risk factors. Other specified health status 03/01/2023 Overview (07/17/2024): -next physical exam due after 07/17/25 -eye care facilitated by [facility] -dental home is [facility] -health care proxy paperwork given 11/13/2023, given again 07/17/24 Assessment & Plan (07/17/2024 10:32 AM EST): -next physical exam due after 07/17/25 -eye care facilitated by [facility] -dental home is [facility] -health care proxy paperwork given 11/13/2023, given again 07/17/24 Assessment & Plan (11/13/2023 10:07 AM EDT): -next physical exam due after 04/27/2024 -eye care facilitated by [facility] -dental home is [facility] -health care proxy paperwork given 11/13/2023 Assessment & Plan (04/27/2023 9:45 AM EDT): -next physical exam due after 04/27/2024. -eye care facilitated by [facility], last visit 01/16/2023 -dental home is [facility] Class 1 obesity 02/24/2023 Lower abdominal pain 02/07/2023 Assessment & Plan (03/13/2023 10:05 PM EDT): Currently asymptomatic -EGD 01/2022 Antral erosive gastritis, small hiatal hernia with some associated inflammatory changes and duodenitis. -Colonoscpy 2012 Video colonoscope was introduced : nonspecific mucosal appearance left -CT abd/pelvis w/o contrast 2017: The kidneys are normal in size, shape, and attenuation. There is a redemonstrated approximately 1 cm hypoattenuating lesion off the lower left kidney, favoring a cyst .No acute findings identified in the abdomen/pelvis. Mild colonic diverticulosis. -MRI pelvis w/o w contrast 2019 :Symmetrical ankylosis of the sacral iliac joints without evidence for any active edema enhancement to indicate acute or ongoing sacroiliitis. -pt is currently feeling well denies having any more abd pain but pt is vague about his symptoms - s/p 4 weeks of ATB x prostatitis -alarm signs and symptoms discussed w pt and advise to make sure to f w his urologist -apt x 03/16/2023 at 10h15 am And w his GI x colonoscopy -if again abd pain would do CT image of abd/Pelvis Assessment & Plan (02/07/2023 11:58 AM EDT): -EGD 01/2022 Antral erosive gastritis, small hiatal hernia with some associated inflammatory changes and duodenitis. -Colonoscpy 2013 Video colonoscope was introduced : nonspecific mucosal appearance left -CT abd/pelvis w/o contrast 2017: The kidneys are normal in size, shape, and attenuation. There is a redemonstrated approximately 1 cm hypoattenuating lesion off the lower left kidney, favoring a cyst .No acute findings identified in the abdomen/pelvis. Mild colonic diverticulosis. -MRI pelvis w/o w contrast 2019 :Symmetrical ankylosis of the sacral iliac joints without evidence for any active edema enhancement to indicate acute or ongoing sacroiliitis. -pt is currently feeling well denies having any more abd pain but pt is vague about his symptoms -I called today his urologist' office -Dr Dorsey and was told pt did had a CT scan of abd in 2021 that also showed diverticulosis and no other pathology ---MA today - L.A to request records of last visit w urologist and last CT report -given clinically better will hold on repeating imaging x now but if having again intense pain will need to repeat to r/o kidney stones , did had blood in UA in 01/25/2023 but was also tx x possible prostatitis. PSA was wnl in 10/2022 -given clinically improving and from physical exam reported by previous provider advised pt to continue ATB to complete 4 weeks x prostatitis -discussed as well to add finasteride to his terazosin but wants to hold -states he started terazosin recently -alarm signs and symptoms discussed w pt and advise to make sure to f w his urologist -apt x 03/16/2023 at 10h15 am And w his GI x colonoscopy -if pain returns would do CT image of abd/Pelvis Erectile dysfunction 11/09/2022 GERD (gastroesophageal reflux disease) 3 Colon cancer screening 11/09/2022 Overview (07/17/2024): Normal colonoscopy 04/06/23 Assessment & Plan (07/17/2024 10:25 AM EST): Normal colonoscopy 04/06/23 Assessment & Plan (07/05/2023 10:16 AM EST): Done 02/2023. Assessment & Plan (04/27/2023 9:43 AM EDT): Done 02/2023. Assessment & Plan (11/09/2022 11:31 AM EDT): Pt had to post pone his colonoscopy due to mothers . Will rescheduled Colonoscopy. Dyslipidemia 11/07/2022 Overview (07/17/2024): Lab Results Component Value Date CHOL 185 07/17/2024 CHOL 183 06/29/2023 TRIG 79 07/17/2024 TRIG 65 06/29/2023 TRIG 95 11/11/2022 HDL 60 07/17/2024 HDL 59 06/29/2023 LDLCHOLCAL 110 (H) 07/17/2024 LDLCHOLCAL 111 (H) 06/29/2023 -continue lifestyle modifications -Atorvastatin 80mg (dose increased 06/2024) Assessment & Plan (07/17/2024 10:23 AM EST): Lab Results Component Value Date CHOLESTEROL 184 11/11/2022 LDLCHOL 106 (H) 11/11/2022 LDLCHOL 139 (H) 01/18/2022 LDLCHOL 97 04/20/2021 TRIG 65 06/29/2023 TRIG 95 11/11/2022 HDLCHOL 59 11/11/2022 CHOLHDLRAT 3.1 11/11/2022 -continue lifestyle modifications -Atorvastatin 40mg started 04/27/2023. Assessment & Plan (11/13/2023 10:19 AM EDT): Lab Results Component Value Date CHOLESTEROL 184 11/11/2022 LDLCHOL 106 (H) 11/11/2022 LDLCHOL 139 (H) 01/18/2022 LDLCHOL 97 04/20/2021 TRIG 65 06/29/2023 TRIG 95 11/11/2022 HDLCHOL 59 11/11/2022 CHOLHDLRAT 3.1 11/11/2022 -continue lifestyle modifications -Atorvastatin 40mg started 04/27/2023. Assessment & Plan (07/05/2023 10:15 AM EST): Lab Results Component Value Date CHOLESTEROL 184 11/11/2022 LDLCHOL 106 (H) 11/11/2022 LDLCHOL 139 (H) 01/18/2022 LDLCHOL 97 04/20/2021 TRIG 65 06/29/2023 TRIG 95 11/11/2022 HDLCHOL 59 11/11/2022 CHOLHDLRAT 3.1 11/11/2022 -continue lifestyle modifications -continue lifestyle modifications -Atorvastatin 40mg started 04/27/2023. Assessment & Plan (04/27/2023 9:58 AM EDT): Lab Results Component Value Date CHOLESTEROL 184 11/11/2022 LDLCHOL 106 (H) 11/11/2022 LDLCHOL 139 (H) 01/18/2022 LDLCHOL 97 04/20/2021 TRIG 95 11/11/2022 HDLCHOL 59 11/11/2022 CHOLHDLRAT 3.1 11/11/2022 -continue lifestyle modifications -Atorvastatin 40mg started 04/27/2023. Assessment & Plan (11/09/2022 11:16 AM EDT): Discussed the importance of statin compliance, stressed the strong evidence that these meds prevent PA/CVA. Continue atorvastatin 80qhs. Encouraged to take. Anxiety 11/07/2022 Overview (07/16/2024): -Pt has good insight into the causes and symptoms of his anxiety, and has utilized non-pharmacological interventions with very good effect. Declines medication or therapy. -Patient has a therapist and psychiatrist Assessment & Plan (07/17/2024 10:24 AM EST): -Pt has good insight into the causes and symptoms of his anxiety, and has utilized non-pharmacological interventions with very good effect. Declines medication or therapy. -Patient has a therapist and psychiatrist Assessment & Plan (11/13/2023 10:45 AM EDT): -Pt has good insight into the causes and symptoms of his anxiety, and has utilized non-pharmacological interventions with very good effect. Declines medication or therapy. -Patient has a therapist and psychiatrist Assessment & Plan (07/05/2023 10:16 AM EST): Pt has good insight into the causes and symptoms of his anxiety, and has utilized non-pharmacological interventions with very good effect. Declines medication or therapy. Assessment & Plan (04/27/2023 9:21 AM EDT): Pt has good insight into the causes and symptoms of his anxiety, and has utilized non-pharmacological interventions with very good effect. Declines medication or therapy. Assessment & Plan (11/07/2022 11:32 AM EDT): Pt has good insight into the causes and symptoms of his anxiety, and has utilized non-pharmacological interventions with very good effect. Declines medication or therapy. Palpitations 11/07/2022 Overview (09/10/2024): Pt is followed by Riya Fulton. Last visit 11/12/2020. Holter showed no significant arrythmia, nml EKG. Echocardiogram on 02/04/2020 was nml with an EF of 60-65%. Stress test on 02/04/2020 was unremarkable. Assessment & Plan (11/13/2023 10:45 AM EDT): Pt is followed by Jean Claude Fulton. Last visit 11/12/2020. Holter showed no significant arrythmia, nml EKG. Echocardiogram on 02/04/2020 was nml with an EF of 60-65%. Stress test on 02/04/2020 was unremarkable. Assessment & Plan (07/05/2023 10:16 AM EST): Pt is followed by Jean Claude Fulton. Last visit 11/12/2020. Holter showed no significant arrythmia, nml EKG. Echocardiogram on 02/04/2020 was nml with an EF of 60-65%. Stress test on 02/04/2020 was unremarkable. Assessment & Plan (04/27/2023 9:22 AM EDT): Pt is followed by Jean Claude Fulton. Last visit 11/12/2020. Holter showed no significant arrythmia, nml EKG. Echocardiogram on 02/04/2020 was nml with an EF of 60-65%. Stress test on 02/04/2020 was unremarkable. Assessment & Plan (11/07/2022 11:33 AM EDT): Pt is followed by Jean Claude Fulton. Last visit 11/12/2020. Holter showed no significant arrythmia, nml EKG. Echocardiogram on 02/04/2020 was nml with an EF of 60-65%. Stress test on 02/04/2020 was unremarkable. Solitary pulmonary nodule 07/25/2022 Overview (03/05/2024): -Chest CT on 07/29/2019 showed a focal density in the left lower lobe which could reflect atelectasis, though a lung nodule cannot be excluded. Coronary artery calcifications were also found. -Chest CT on 12/25/2019 showed nodule posterior lateral left lower lobe approximately 9 x 6 x 5 mm, stable from recent prior CT 07/29/2019. Recommend follow-up noncontrast CT chest in [address] also showed Incidental scattered bilateral calcified granulomata, more numerous on right. No adenopathy or effusion. -Patient is followed by pulmonology. He reports had repeat CT done Jul 30 with not change. Will request report. He has not other concerns. Followed by pulmonology , Dr. Milligan, last ween 11/2020 and due for repeat CT May 2021 -CT 01/24/[address] Raheel Gee MD, redemonstration of innumerable mixed calcified and noncalcified pulmonary nodules, not significantly changed compared to most recent CT chest from 08/09/2022, largest measuring 6 mm. According to the UPDATED 2017 Fleischner Society recommendations, the advised follow-up imaging for multiple solid nodules measuring up to 6-8 mm is follow-up CT at 3 to 6 months. In high-risk patients, subsequent CT follow-up at 18 to 24 months is recommended. In low-risk patients, subsequent CT follow-up at 18 to 24 months is optional. Assessment & Plan (11/13/2023 10:19 AM EDT): -Chest CT on 07/29/2019 showed a focal density in the left lower lobe which could reflect atelectasis, though a lung nodule cannot be excluded. Coronary artery calcifications were also found. -Chest CT on 12/25/2019 showed nodule posterior lateral left lower lobe approximately 9 x 6 x 5 mm, stable from recent prior CT 07/29/2019. Recommend follow-up noncontrast CT chest in [address] also showed Incidental scattered bilateral calcified granulomata, more numerous on right. No adenopathy or effusion. -Patient is followed by pulmonology. He reports had repeat CT done Dec 3 with not change. Will request report. He has not other concerns. Followed by pulmonology , Dr. Milligan, last ween 11/2020 and due for repeat CT May 2021 -Follow up with pulmonary for overdue CT Assessment & Plan (07/05/2023 10:12 AM EST): Chest CT on 07/29/2019 showed a focal density in the left lower lobe which could reflect atelectasis, though a lung nodule cannot be excluded. Coronary artery calcifications were also found. Chest CT on 12/25/2019 showed nodule posterior lateral left lower lobe approximately 9 x 6 x 5 mm, stable from recent prior CT 07/29/2019. Recommend follow-up noncontrast CT chest in [address] also showed Incidental scattered bilateral calcified granulomata, more numerous on right. No adenopathy or effusion. Patient is followed by pulmonology. He reports had repeat CT done Dec 3 with not change. Will request report. He has not other concerns. Followed by pulmonology , Dr. Milligan, last ween 11/2020 and due for repeat CT May 2021 Follow up with pulmonary for overdue CT Assessment & Plan (04/27/2023 9:22 AM EDT): Chest CT on 07/29/2019 showed a focal density in the left lower lobe which could reflect atelectasis, though a lung nodule cannot be excluded. Coronary artery calcifications were also found. Chest CT on 12/25/2019 showed nodule posterior lateral left lower lobe approximately 9 x 6 x 5 mm, stable from recent prior CT 07/29/2019. Recommend follow-up noncontrast CT chest in [address] also showed Incidental scattered bilateral calcified granulomata, more numerous on right. No adenopathy or effusion. Patient is followed by pulmonology. He reports had repeat CT done Dec 3 with not change. Will request report. He has not other concerns. Followed by pulmonology , Dr. Milligan, last ween 11/2020 and due for repeat CT May 2021 Follow up with pulmonary for overdue CT Assessment & Plan (11/09/2022 11:15 AM EDT): Chest CT on 07/29/2019 showed a focal density in the left lower lobe which could reflect atelectasis, though a lung nodule cannot be excluded. Coronary artery calcifications were also found. Chest CT on 12/25/2019 showed nodule posterior lateral left lower lobe approximately 9 x 6 x 5 mm, stable from recent prior CT 07/29/2019. Recommend follow-up noncontrast CT chest in [address] also showed Incidental scattered bilateral calcified granulomata, more numerous on right. No adenopathy or effusion. Patient is followed by pulmonology. He reports had repeat CT done Dec 3 with not change. Will request report. He has not other concerns. Followed by pulmonology , Dr. Milligan, last ween 11/2020 and due for repeat CT May 2021 Follow up with pulmonary for overdue CT Bilateral hearing loss 10/14/2021 Overview (11/09/2022): Assessment & Plan (11/09/2022 11:16 AM EDT): DISH (diffuse idiopathic skeletal hyperostosis) 10/14/2021 Overview (07/17/2024): -CT on 07/11/2018 showed chronic loss of vertebral body height at multiple levels. -There is severe calcification of the anterior longitudinal ligament consistent with DISH. There are multilevel spondylitic and facet arthropathic changes. He continues with progressively neck stiffness. -Although he has appropriate peripheral vision I recommend he talk to DOT and not driving and getting tx for his neck. -Followed by [facility]. -Saw Dr. Evin Bhat at [facility] 02/2021 -referred to orthopedic on 11/13/2023 - Provided number to schedule follow up with orthopedist 07/16/24 Assessment & Plan (07/17/2024 10:19 AM EST): -CT on 07/11/2018 showed chronic loss of vertebral body height at multiple levels. -There is severe calcification of the anterior longitudinal ligament consistent with DISH. There are multilevel spondylitic and facet arthropathic changes. He continues with progressively neck stiffness. -Although he has appropriate peripheral vision I recommend he talk to DOT and not driving and getting tx for his neck. -Followed by [facility]. -Saw Dr. Evin Bhat at [facility] 02/2021 -referred to orthopedic on 11/13/2023 - Provided number to schedule follow up with orthopedist 07/16/24 Assessment & Plan (11/13/2023 10:18 AM EDT): -CT on 07/11/2018 showed chronic loss of vertebral body height at multiple levels. -There is severe calcification of the anterior longitudinal ligament consistent with DISH. There are multilevel spondylitic and facet arthropathic changes. He continues with progressively neck stiffness. -Although he has appropriate peripheral vision I recommend he talk to DOT and not driving and getting tx for his neck. -Followed by [facility]. -Saw Dr. Evin Bhat at [facility] 02/2021 -referred to orthopedic on 11/13/2023 Assessment & Plan (07/05/2023 10:08 AM EST): CT on 07/11/2018 showed chronic loss of vertebral body height at multiple levels. There is severe calcification of the anterior longitudinal ligament consistent with DISH. There are multilevel spondylitic and facet arthropathic changes. He continues with progressively neck stiffness. -Although he has appropriate peripheral vision I recommend he talk to DOT and not driving and getting tx for his neck. Followed by [facility]. Saw Dr. Evin Bhat at [facility] 02/2021 Assessment & Plan (04/27/2023 9:22 AM EDT): CT on 07/11/2018 showed chronic loss of vertebral body height at multiple levels. There is severe calcification of the anterior longitudinal ligament consistent with DISH. There are multilevel spondylitic and facet arthropathic changes. He continues with progressively neck stiffness. -Although he has appropriate peripheral vision I recommend he talk to DOT and not driving and getting tx for his neck. Followed by [facility]. Saw Dr. Evin Bhat at [facility] 02/2021 Assessment & Plan (11/07/2022 11:31 AM EDT): CT on 07/11/2018 showed chronic loss of vertebral body height at multiple levels. There is severe calcification of the anterior longitudinal ligament consistent with DISH. There are multilevel spondylitic and facet arthropathic changes. He continues with progressively neck stiffness. -Although he has appropriate peripheral vision I recommend he talk to DOT and not driving and getting tx for his neck. Followed by [facility]. Saw Dr. Evin Bhat at [facility] 02/2021 Mild intermittent asthma 10/14/2021 Overview (08/21/2024): -Followed by Dr. Raheel Gee at [facility]. Note from 08/19/24 reviewed -Well controlled on albuterol. Assessment & Plan (07/17/2024 10:17 AM EST): Well controlled on albuterol. Assessment & Plan (11/13/2023 10:18 AM EDT): Well controlled on albuterol. Assessment & Plan (07/05/2023 10:12 AM EST): Well controlled on albuterol. Assessment & Plan (04/27/2023 9:42 AM EDT): Well controlled on albuterol. Assessment & Plan (11/09/2022 11:15 AM EDT): Hypertension 10/03/2012 Overview (07/17/2024): -Blood pressure is not at goal, did not take his med today 07/17/24 -Continue lifestyle modifications -Continue current medications -Chlorthalidone 25mg started 04/27/2023. -BP machine script given 07/05/2023, follow up in 2 weeks with nurse for BP check - Refilled medication 07/16/24 - Referred to [facility] with our PharmYUE Salvador 07/17/24 - Ordered Labs 07/17/24 - Follow Up In 3 Months Assessment & Plan (07/17/2024 10:27 AM EST): -Blood pressure is not at goal, did not take his med today 07/17/24 -Continue lifestyle modifications -Continue current medications -Chlorthalidone 25mg started 04/27/2023. -BP machine script given 07/05/2023, follow up in 2 weeks with nurse for BP check - Refilled medication 07/16/24 - Referred to Collaborative Drug Therapy Managment Program with our PharmDYUE 07/17/24 - Ordered Labs 07/17/24 - Follow Up In 3 Months Assessment & Plan (11/13/2023 10:07 AM EDT): -Blood pressure is not at goal, did not take his med today -Continue lifestyle modifications -Continue current medications -Chlorthalidone 25mg started 04/27/2023. -BP machine script given 07/05/2023, follow up in 2 weeks with nurse for BP check Assessment & Plan (07/05/2023 11:50 AM EST): -Blood pressure is not at goal -Continue lifestyle modifications -Continue current medications -Chlorthalidone 25mg started 04/27/2023. -BP machine script given 07/05/2023, follow up in 3 months for BP readings Assessment & Plan (04/27/2023 9:54 AM EDT): -Blood pressure is not at goal -Continue lifestyle modifications -Continue current medications -Chlorthalidone 25mg started 04/27/2023. Assessment & Plan (03/13/2023 10:06 PM EDT): States pt not took his lisinopril nor amlodipine this am --advised pt to be complaint w BP meds -states home BP readings are never > 140/90 -advised pt to be complaint w his meds and to bring home BP readings of 3 times as week -will f w PCP to monitor BP next month Assessment & Plan (02/07/2023 11:51 AM EDT): States pt not took his lisinopril nor amlodipine this am --advised pt to be complaint w BP meds -will f w PCP to monitor BP next month Assessment & Plan (11/09/2022 11:12 AM EDT): Diabetes mellitus type 2, uncomplicated 09/28/19 13 Overview (07/17/2024): Diabetes is controlled on diet and exercise alone. Lab Results Component Value Date HGBA1C 6.3 (A) 07/17/2024 HGBA1C 6.4 (A) 04/27/2023 HGBA1C 6.9 (A) 11/09/2022 Lab Results Component Value Date CREATININE 1.07 11/23/2023 EGFR >60 11/23/2023 MICROALBCREU 6.0 06/29/2023 LDLCHOLCAL 111 (H) 06/29/2023 -Changes: none -Ry/Arb: lisinopril 40 -Statin therapy: atorvastatin 40 -Diabetic eye exam: 06/19/2024 -Diabetic foot exam: 07/16/24 -Continue lifestyle modifications Assessment & Plan (07/17/2024 10:20 AM EST): Diabetes is controlled on diet and exercise alone. Lab Results Component Value Date HGBA1C 6.3 (A) 07/17/2024 HGBA1C 6.4 (A) 04/27/2023 HGBA1C 6.9 (A) 11/09/2022 Lab Results Component Value Date CREATININE 1.07 11/23/2023 EGFR >60 11/23/2023 MICROALBCREU 6.0 06/29/2023 LDLCHOLCAL 111 (H) 06/29/2023 -Changes: none -Ry/Arb: lisinopril 40 -Statin therapy: atorvastatin 40 -Diabetic eye exam: 06/19/2024 -Diabetic foot exam: 07/16/24 -Continue lifestyle modifications Assessment & Plan (11/13/2023 10:08 AM EDT): Diabetes is controlled on diet and exercise alone. Lab Results Component Value Date HGBA1C 6.4 (A) 04/27/2023 HGBA1C 6.9 (A) 11/09/2022 HGBA1C 7.0 (H) 01/18/2022 -No results found for: POCA1C - Lab Results Component Value Date MICROALBUR 7.0 06/29/2023 CREATININE 0.94 06/29/2023 -Changes: none -Ry/Arb: lisinopril 40 -Statin therapy: atorvastatin 40 -Diabetic eye exam: 01/16/2023 -Diabetic foot exam: 04/27/2023. -Continue lifestyle modifications Assessment & Plan (07/05/2023 10:08 AM EST): Diabetes is controlled. - Lab Results Component Value Date HGBA1C 6.4 (A) 04/27/2023 HGBA1C 6.9 (A) 11/09/2022 HGBA1C 7.0 (H) 01/18/2022 -No results found for: POCA1C - Lab Results Component Value Date MICROALBUR 7.0 06/29/2023 CREATININE 0.94 06/29/2023 -Changes: none -Ry/Arb: lisinopril 40 -Statin therapy: atorvastatin 40 -Diabetic eye exam: 01/16/2023 -Diabetic foot exam: 04/27/2023. -Continue lifestyle modifications Assessment & Plan (04/27/2023 10:02 AM EDT): Diabetes is controlled on diet and exercise alone. - Lab Results Component Value Date HGBA1C 6.9 (A) 11/09/2022 HGBA1C 7.0 (H) 01/18/2022 HGBA1C 7.1 (H) 02/13/2020 HGBA1C 7.1 (H) 02/13/2020 HGBA1C 7.1 (H) 02/13/2020 -No results found for: POCA1C - Lab Results Component Value Date MICROALBUR 1.1 01/18/2022 CREATININE 0.98 01/27/2023 -Changes: none -Ry/Arb: lisinopril 40 -Statin therapy: atorvastatin 40 -Diabetic eye exam: 01/16/2023 -Diabetic foot exam: 04/27/2023 -Continue lifestyle modifications Assessment & Plan (03/13/2023 10:07 PM EDT): Denies to be complaint w metformin for SE-can not specify symptoms -here CBG elevated -pt will see PCP next month to eval other meds if not tolerating metformin -advised to take rest of meds as rec here by PCP Assessment & Plan (02/07/2023 11:54 AM EDT): Denies to be complaint w metformin for SE-can not specify symptoms -here CBG today in 150s after eating -pt will see PCP next month to eval other meds if not tolerating metformin -advised to take rest of meds as rec here by PCP Assessment & Plan (11/09/2022 11:23 AM EDT): Lab Results Component Value Date HGBA1C 6.9 (A) 11/09/2022 Resolved Problems Problem Noted Date Diagnosed Date Resolved Date Abnormal stress test 10/02/2023 10/02/2023 024 Nocturia more than twice per night 04/27/2023 07/04/2023 Headache 03/13/2023 07/04/2023 Assessment & Plan (03/13/2023 10:14 PM EDT): DAVIES is frontal and temporal -chronic but more intense freq States not taking meds x it x no particular reason Denies neurologic associated symptoms,no temporal tenderness ,does reports blurry vision but states was recently given new glasses No alarming features ,describes sometimes unilateral In ED had CT head w/o contrast: 03/04/2023: small polyp or retention cyst in bilateral maxillar sinuses ,slight larger on right , no intracraneal pathology -possible migraine DAVIES? -advised to try tylenol prn x mild pain and px today excedrin prn x mod pain -advised to take his BP meds regularly as if BP is uncontrolled as well can cause symptoms -denies NENA symptoms -to f here in 4 weeks w PCP -alarm signs and symptoms explained to pt -pt is poor historian w noted decrease memory -advised to f w PCP for this at his next apt -pt thinks could be associated w nodularity in his left temporal area already w plan x surgery -no date yet -if no improvement will need to be consider brain MRI w contrast High cholesterol 09/26/2013 04/27/2023 Encounters Date Type Department Care Team Description 09/17/2024 Telephone [place] [address] Ashley Frankel MD 09/09/2024 Orders Only [facility] External Provider, [facility] 08/26/2024 Telephone [facility] [place] [address] Ashley Frankel MD 08/14/2024 Orders Only GENERIC EXTERNAL DATA DEPARTMENT Provider, Generic External Data Abnormal CXR (Primary Dx) 08/13/2024 Orders Only GENERIC EXTERNAL DATA DEPARTMENT Provider, Generic External Data 08/12/2024 Travel 08/09/2024 8:30 AM EST Office Visit [facility] [place] [address] Naida Yates, DDS Teeth missing (Primary Dx) 08/05/2024 Telephone [facility] [place] [place] [address] Kala Charles, [place] September Recall 08/05/2024 Telephone [facility] [place] [place] [address] Ashley Frankel MD Appointment Request 08/01/2024 9:30 AM EST Office Visit [facility] [place] [address] Jaimee Yatesmia, DDS Teeth missing (Primary Dx) 07/24/2024 Telephone [facility] [place] [place] [address] Ashley Frankel MD 07/22/2024 10:00 AM EST Office Visit [facility] [place] [address] Naida Yates, DDS Teeth missing (Primary Dx) 07/22/2024 Travel 07/19/2024 Orders Only GENERIC EXTERNAL DATA DEPARTMENT Provider, Generic External Data 07/18/2024 Telephone [facility] [place], [place] [phone] Flor Marquez RN Results; Med Refill 07/17/2024 9:30 AM EST Office Visit [facility] [address] [place] [address] Ashley Frankel MD Type 2 diabetes mellitus without complication, without long-term current use of insulin ([facility]) (Primary Dx); Dyslipidemia; Dietary counseling; Exercise counseling; Overweight; Cardiac risk counseling; Anxiety; Other specified health status; Primary hypertension; Mild intermittent asthma without complication; DISH (diffuse idiopathic skeletal hyperostosis); Colon cancer screening; Basal cell carcinoma (BCC), unspecified site; Epidermoid cyst; Enlarged and hypertrophic nails 07/17/2024 Orders Only [facility] [address] [place] [address] Ashley Frankel MD Cardiac risk counseling (Primary Dx); Dyslipidemia 07/17/2024 Refill [facility] [address] [place] [address] Ashley Frankel MD Type 2 diabetes mellitus without complication, without long-term current use of insulin (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) (Primary Dx); Vitreous syneresis of both eyes; Combined forms of age-related cataract of both eyes; Presbyopia of both eyes 06/19/2024 Travel from Last 3 Months Immunizations Name Administration Dates Next Due Hep B, adult 05/14/2015,02/26/2014,09/26/2013 Influenza injectable quadriv alent IIV4 with preservative 05/18/2018,05/31/2017,05/25/2016 Influenza injectable quadriv alent preservative free 05/30/2019,05/14/2015 Influenza, IIV3, injectable 06/04/2014,1 ,05/19/2010,09/24,06/30/2006,09/16/2005 Influenza, Split (incl. marilynn fied surface antigen) 09/26/2013,06/04/2012 Pneumococcal Polysaccharide PPSV23 05/14/2015, TD (adult), 2 Lf tetanus tox oid, preservative free, adsorbed 01/10/2006 Tdap 12/23/2019,06/04/2012 Social History Tobacco Use Types Packs/Day Years Used Date Smoking Tobacco: Former Cigarettes Smokeless Tobacco: Never Tobacco Cessation:Counseling Given: Not Answered Depression Answer Date Recorded Patient Health Questionnaire-9 [...] Orientation Straight 06/27/2022 10 :18 AM EDT Last Filed Vital Signs Vital Sign Reading Time Taken Comments Blood Pressure 132/70 08/12/2024 11:45 AM EST Pulse 80 08/12/2024 11:45 AM EST Temperature 36 ??C (96.8 ??F) 07/17/2024 9:35 AM EST Respiratory Rate 19 07/17/2024 9:35 AM EST Oxygen Saturation 98% 07/17/2024 9:35 AM EST Inhaled Oxygen Concentration - - Weight 85.7 kg (189 lb) 07/17/2024 9:35 AM EST Height 172.7 cm (5' 8 ) 07/17/2024 9:35 AM EST Body Mass Index 28.74 07/17/2024 9:35 AM EST Plan of Treatment Upcoming Encounters Date Type Department Care Team (Late st Contact Info) Description 10/24/2024 9:15 AM EST Office Visit [facility] [address] [place] [address] [phone] Ashley Frankel MD [address] [place], [place] [phone] 12/09/2024 8:00 AM EDT Office Visit [facility] [address] [place], [place] [phone] Jackie Peacock Health Maintenance Due Date Last Done Comments CT Colonography 1964 Dental X-Ray: Full Mouth 1964 FIT DNA/Cologuard 1964 FIT 1964 FOBT 1964 Sigmoidoscopy 1964 Derm Melanoma Skin Check 02/17/1965 Zoster Vaccines (1 of 2) 2014 RSV Patients and Patients Aged 60 years or older (1 - Risk 60-74 years 1-dose series) 2024 Dental Oral Exam 11/01/2024 05/03/2024, 10/24/2022 Dental Prophylaxis 11/01/2024 05/03/2024, 01/30/2023 SDOH Screening 11/01/2024 11/02/2023 Diabetes: Hemoglobin A1C 02/11/202508/13/2 024, 07/17/2024, 07/17/2024, Additional history exists Influenza Vaccine (#1) 2025 9, 05/18/2018, 05/31/2017, Additional history exists Postponed from 04/28/2024 (Patient Refused) Dental X-Ray: Bitewings 05/04/2025 05/03/2024, 10/24 Eye Exam 06/19/2025 06/19/2024, 05/29, 06/19/2024, Additional history exists Alcohol/Substance Use Screening 07/17/2025 07/17/2024 COVID-19 Vaccine ( season) 2025 Postponed from 04/28/2024 (Patient Refused) Depression Screening 07/17/2025 07/17/2024, 07/17/20 Diabetes: Foot Exam 07/17/2025 07/17/2024, 07/17/2024, 07/17/2024, Additional history exists Pneumococcal Vaccine: Pediatrics (0 to 5 Years) and At-Risk Patients (6 to 64 Years) (2 of 2 - PCV) 07/17/2025 05/14/2015, 06/30/2006 Postponed fr om 05/14/2016 (Patient Refused) Diabetes: Urine Protein Screening 08/13/2025 08/13/2024, 07/17/2024, 06/29/2023, Additional history exists Lipid Panel 08/13/2025 08/13/2024, 06/29, 06/29/2023, Additional history exists Tobacco Screening 08/14/2025 08/14/2024 DTaP/Tdap/Td Vaccines (3 - Td or Tdap) 12/22/2029 12/23/2019, 06/04/2012, 01/10/2006 Colonoscopy 04/06/2033 04/06/2023, 09/06/2012 Colorectal Cancer Screening 04/06/2033 Hepatitis B Vaccines Completed 05/14/2015, 02/26/2014, 09/26/2013 HIV Screening Completed 02/13/2020 Hepatitis C Screening Completed 11/11/2022 HIB Vaccines Aged Out No longer eligi ble based on patient's age to complete this topic HPV Vaccines Aged Out No longer eligi ble based on patient's age to complete this topic Hepatitis A Vaccines Aged Out No long er eligible based on patient's age to complete this topic IPV Vaccines Aged Out No longer eligi ble based on patient's age to complete this topic Meningococcal Vaccine Aged Out No maxwell matias eligible based on patient's age to complete this topic RSV under 20 months Aged Out No longe r eligible based on patient's age to complete this topic Rotavirus Vaccines Aged Out No longer eligible based on patient's age to complete this topic Procedures Procedure Name Priority Date/Time Associated Diagnosis Comments HIGH SENSITIVITY TROPONIN I Routine 09/09/2024 2:44 PM EST LIPASE Routine 09/09/2024 11:02 AM EST MAGNESIUM Routine 09/09/2024 11:02 AM EST BASIC METABOLIC PANEL Routine 09/09/2024 11:02 AM EST HEPATIC FUNCTION PANEL Routine 09/09/2024 11:02 AM EST CBC WITH AUTO DIFFERENTIAL Routine 09/09/2024 11:02 AM EST HIGH SENSITIVITY TROPONIN I Routine 09/09/2024 11:01 AM EST SARS COV2/INFLUENZA A/B AND RSV RNA QL NAAT Routine 09/09/2024 11:01 AM EST XR CHEST 2 VIEWS Routine 09/09/2024 10:3 4 AM EST XR CHEST 1 VIEW Routine 08/14/2024 9:48 PM EST URINALYSIS, COMPLETE, WITH REFLEX TO CULTURE Routine 08/14/2024 9:12 PM EST HIGH SENSITIVITY TROPONIN I Routine 08/14/2024 8:34 PM EST LIPASE Routine 08/14/2024 8:34 PM EST MAGNESIUM Routine 08/14/2024 8:34 PM EST COMPREHENSIVE METABOLIC PANEL Routine 08/14/2024 8:34 PM EST CBC WITH AUTO DIFFERENTIAL Routine 08/14/2024 8:34 PM EST TESTOSTERONE, TOTAL, MALES (ADULT), IA Routine 08/13/2024 11:26 AM EST PSA, TOTAL Routine 08/13/2024 11:26 AM EST BASIC METABOLIC PANEL Routine 08/13/2024 11:26 AM EST Type 2 diabetes mellitus without complication, without long-term current use of insulin (CMS/HCC) HEMOGLOBIN A1C Routine 08/13/2024 11:26 AM EST Type 2 diabetes mellitus without complication, without long-term current use of insulin (CMS/HCC) LIPID PANEL, STANDARD Routine 08/13/2024 11:26 AM EST Type 2 diabetes mellitus without complication, without long-term current use of insulin (CMS/HCC) HEPATIC FUNCTION PANEL Routine 08/13/2024 11:26 AM EST Type 2 diabetes mellitus without complication, without long-term current use of insulin (CMS/HCC) ALBUMIN, RANDOM URINE W/CREATININE Routine 08/13/2024 11:26 AM EST Type 2 diabetes mellitus without complication, without long-term current use of insulin (CMS/HCC) ADJUNCTIVE GENERAL SERVICES - PROFESSIONAL VISITS - CASE PRESENTATION, SUBSEQUENT TO DETAILED AND EXTENSIVE TREATMENT PLANNING Routine 08/09/2024 8:30 AM EST Teeth missing 18,19,22,30,31 MANDIBULAR PARTIAL DENTURE - CAST METAL FRAMEWORK WITH RESIN DENTURE BASES (INCLUDING RETENTIVE/CLASPING MATERIALS, RESTS AND TEETH) Routine 08/09/2024 8:30 AM EST Teeth missing 2,3,4,14,15 MAXILLARY PARTIAL DENTURE - CAST METAL FRAMEWORK WITH RESIN DENTURE BASES (INCLUDING RETENTIVE/CLASPING MATERIALS, RESTS AND TEETH) Routine 08/09/2024 8:30 AM EST Teeth missing WAX TRY IN Routine 08/01/2024 9:30 AM EST Teeth missing BITE REGISTRATION Routine 07/22/2024 10: 00 AM EST Teeth missing URINALYSIS, COMPLETE, WITH REFLEX TO CULTURE Routine 07/19/2024 2:[address] HEAD WO CONTRAST Routine 07/19/2024 1 2:28 PM EST HIGH SENSITIVITY TROPONIN I Routine 07/19/2024 12:14 PM EST LIPASE Routine 07/19/2024 12:14 PM EST COMPREHENSIVE METABOLIC PANEL Routine 07/19/2024 12:14 PM EST PROTHROMBIN TIME-INR Routine 07/19/2024 12:14 PM EST CBC WITH AUTO DIFFERENTIAL Routine 07/19/2024 12:14 PM EST ALBUMIN, RANDOM URINE W/CREATININE Routine 07/17/2024 1:44 PM EST Type 2 diabetes mellitus without complication, without long-term current use of insulin (CMS/HCC) BASIC METABOLIC PANEL Routine 07/17/2024 10:47 AM EST Type 2 diabetes mellitus without complication, without long-term current use of insulin (CMS/HCC) HEMOGLOBIN A1C Routine 07/17/2024 10:47 AM EST Type 2 diabetes mellitus without complication, without long-term current use of insulin (CMS/HCC) LIPID PANEL, STANDARD Routine 07/17/2024 10:47 AM EST Type 2 diabetes mellitus without complication, without long-term current use of insulin (CMS/HCC) HEPATIC FUNCTION PANEL Routine 07/17/2024 10:47 AM EST Type 2 diabetes mellitus without complication, without long-term current use of insulin (CMS/HCC) POCT GLYCATED HEMOGLOBIN, TOTAL Routine 07/17/2024 9:58 AM EST Type 2 diabetes mellitus without complication, without long-term current use of insulin (CMS/HCC) POCT GLUCOSE Routine 07/17/2024 9:58 AM EST Type 2 diabetes mellitus without complication, without long-term current use of insulin (CMS/HCC) FUNDUS PHOTOS - OU - BOTH EYES Routine 06/19/2024 3:30 PM EDT 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 (CMS/HCC) PROPHYLAXIS - ADULT Routine 05/03/2024 1 0:00 AM EDT BITEWINGS - 2 RADIOGRAPHIC IMAGES Routine 05/03/2024 9:30 AM EDT PERIODIC ORAL EVALUATION - ESTABLISHED PATIENT Routine 05/03/2024 9:30 AM EDT HM COLONOSCOPY Routine 04/06/2023 HEPATITIS C AB W/REFL TO HCV RNA, QN, PCR Routine 11/11/2022 8:59 AM EDT Routine screening for STI (sexually transmitted infection) HIV 1/2 ANTIGEN/ANTIBODY, FOURTH GENERATION W/RFL Routine 02/13/2020 8:50 AM EDT from Last 3 Months or Most Recently Relevant to Health Maintenance Results * High Sensitivity Troponin I (09/09/2024 2:44 PM EST) Only the most recent of4 resultswithin the time period is included. TROPONIN I HIGH SENSITIVITY 5.2 <3.5 - 35.0 ng/L [facility] Comment:The Schmidt high sens itivity Troponin-I results should beused in conjunction with other diagnostic information suchas ECG, clinical observations and information, and patientsymptoms to aid in the diagnosis of PA. 09/09/2024 2:44 PM EST 09/09/2024 2:53 PM EST us Generic External Data Provider LAB BLOOD ORDERAB LES Final Result [facility] [address] [place] [phone] * (ABNORMAL) CBC auto differential (09/09/2024 11:02 AM EST) Only the most recent of3 resultswithin the time period is included. White Blood Count 3.7(L) 4.8 - 10.8 X10*3/uL [facility] Red Blood Count 4.60 4.60 - 5.80 X10*6/uL [facility] Hemoglobin 13.8(L) 14.0 - 18.0 g/dl [facility] Hematocrit 41.4(L) 42.0 - 52.0 % [facility] Mean Corpuscular Volume 90.0 80.0 - 98.0 fL [facility] Mean Corpuscular Hemoglobin 30.0 27.0 - 33.0 pg [facility] Mean Corpuscular HGB Conc 33.3 31.0 - 36.0 g/dl [facility] Red Cell Distribution Width 13.2 11.0 - 16.0 % [facility] Platelet Count 208 160 - 400 X10*3/uL [facility] Mean Platelet Volume 10.4 9.4 - 12.4 fL [facility] Neutrophils Percent Auto 53.8 45 - 73 % [facility] Imm Gran Pct Auto 0.3 0.0 - 0.4 % [facility] Lymphocytes Percent Auto 32.4 20 - 40 % [facility] Monocytes Percent Auto 10.3 2 - 11 % [facility] Eosinophils Percent Auto 2.4 0 - 4 % [facility] Basophils Percent Auto 0.8 0 - 2 % [facility] NRBC Pct Auto 0.0 0.0 - 0.2 /100WBC [facility] Neutrophils Absolute Auto 2.0 2.0 - 8.3 x10*3/uL [facility] Imm Gran Abs Auto 0.01 0.00 - 0.03 X10*3/uL [facility] Lymphocytes Absolute Auto 1.2 1.2 - 4.9 X10*3/uL [facility] Monocytes Absolute Auto 0.4 0.1 - 1.2 X10*3/uL [facility] Eosinophils Absolute Auto 0.1 0.0 - 0.4 X10*3/uL [facility] Basophils Absolute Auto 0.0 0.0 - 0.2 X10*3/uL [facility] NRBC Abs Auto 0.000 0.0 - 0.012 X10*3/uL [facility] 09/09/2024 11:0 2 AM EST 09/09/2024 11:06 AM EST Generic External Data Provider LAB BLOOD ORDERAB LES Final Result Performing Organization Address [facility] Co de Phone Number [facility] [address] [place] [phone] * Magnesium (09/09/2024 11:02 AM EST) Only the most recent of2 resultswithin the time period is included. Magnesium 2.0 1.6 - 2.6 mg/dL [facility] 09/09/2024 11:0 2 AM EST 09/09/2024 11:06 AM EST Generic External Data Provider LAB BLOOD ORDERAB LES Final Result Performing Organization Address [facility] Co ks Phone Number [facility] [address] [place] [phone] * Lipase (09/09/2024 11:02 AM EST) Only the most recent of3 resultswithin the time period is included. Lipase 28 8 - 78 U/L [facility] 09/09/2024 11:0 2 AM EST 09/09/2024 11:06 AM EST Generic External Data Provider LAB BLOOD ORDERAB LES Final Result Performing Organization Address [facility] de Phone Number [facility] [address] [place] [phone] * Hepatic Function Panel (09/09/2024 11:02 AM EST) Only the most recent of3 resultswithin the time period is included. Bilirubin, Total 0.9 0.0 - 1.0 mg/dL [facility] Bilirubin, Direct 0.3 0.0 - 0.5 mg/dL [facility] Aspartate Amino Transferase 29 5 - 37 U/L [facility] Alanine Aminotransferase 23 0 - 40 U/L [facility] Total Protein 6.9 6.5 - 8.0 g/dL [facility] Albumin Level 4.1 3.5 - 5.0 g/dL [facility] Alkaline Phosphatase 100 39 - 117 U/L [facility] 09/09/2024 11:0 2 AM EST 09/09/2024 11:06 AM EST us Generic External Data Provider LAB BLOOD ORDERAB LES Final Result [facility] [address] [place] [phone] * (ABNORMAL) Basic Metabolic Panel (09/09/2024 11:02 AM EST) Only the most recent of3 resultswithin the time period is included. Sodium 142 135 - 145 mmol/L [facility] Potassium 3.7 3.3 - 5.1 mmol/L [facility] Chloride 108 96 - 108 mmol/L [facility] Carbon Dioxide 29 22 - 29 mmol/L [facility] Anion Gap 9(L) 12 - 20 [facility] Urea Nitrogen (BUN) 13 9 - 16 mg/dL [facility] Creatinine, Serum 1.00 0.5 - 1.4 mg/dL [facility] Creatinine Clr Calc Pharmacy 81.3 [facility] Comment:eGFR (calculated fro m the MDRD study equation) and eCrCl(calculated from the Cockcroft-Gault equation) are based ondifferent parameters and may not yield comparable results.If eCrCl result is absurd, please check patient'sheight/weight. Estimated Glomerular Filt Rate >60 [facility] Comment:Chronic Kidney Disea se: Estimated GFR < 60 mL/min/1.44r2Oxnngo Kidney Disease: Estimated GFR < 15 mL/min/1.73m2 Glucose 147(H) 60 - 115 mg/dL [facility] Calcium 9.2 8.4 - 10.2 mg/dL [facility] 09/09/2024 11:0 2 AM EST 09/09/2024 11:06 AM EST Generic External Data Provider LAB BLOOD ORDERAB LES Final Result Performing Organization Address [facility] Co de Phone Number [facility] [address] [place] [phone] * SARS-CoV-2 RNA, Influenza A/B, and RSV RNA, Ql NAAT (09/09/2024 11:01 AM EST) Influenza A PCR NEGATIVE Negative [facility] Influenza B PCR NEGATIVE Negative [facility] Resp Syncy Virus RNA Qual PCR NEGATIVE Negative [facility] SARS COV2 PCR NEGATIVE Negative [facility] Comment:All test results mus t be correlated with clinical findings.Negative results do not preclude SARS-CoV2, influenza Avirus, influenza B virus and/or RSV infectionand should not be used as the sole basis for treatment orother patient management decisions. Negative results must becombined with clinical observations, patient history, andepidemiological information.This test has not been evaluated for monitoring treatment ofinfection.This test has been authorized by the FDA under an EmergencyUse Authorization (EUA) for use by authorized laboratories.Testing performed on the ahoy[employer] GeneXpert utilizingreal-time RT-PCR.All SARS CoV2 and positive influenza A/B results arereported to [facility]. 09/09/2024 11:0 1 AM EST 09/09/2024 11:06 AM EST us Generic External Data Provider LAB MICROBIOLOGY - GENERAL ORDERABLES Final Result Performing Organization Address [facility] Co de Phone Number [facility] [address] [place] [phone] * XR Chest 2 Views (09/09/2024 10:34 AM EST) Anatomical Region Laterality Modality Chest Radiographic Hannah ging 09/09/2024 10:3 4 AM EST Narrative 09/09/2024 11:06 AM EST ? [facility] ?[address] ?[place] [address] ?XRay Report ? Signed ? Patient: Krista,Bobby ?MR#: [id number] ? : 1965 ?Acct:[id number] ? Age/Sex: 59 / M ?ADM Date: 09/09/24 ? Loc: HO.ED ? Attending Dr: ? Ordering Physician: Deandra Reynolds DO ?? Date of Service: 09/09/24 ?? Procedure(s): XR chest 2V ?? Accession Number(s): [id number] ? cc: Ashley Frankel MD; Deandra Reynolds DO ? EXAMINATION: ?? XR CHEST ? CLINICAL INFORMATION: ?? chest pain ? COMPARISON: ?? 08/14/2024. 09/18/2023. ? TECHNIQUE: ?? 2 views of the chest were obtained. ? FINDINGS: ?? The cardiac, hilar, and mediastinal contours are normal. ? The lungs are clear bilaterally. There is no pneumothorax or pleural ?? effusion. ? There is no focal osseous or soft tissue abnormality. ? XR/XR chest 2V ?? IMPRESSION: ?? No active pulmonary disease. ? Electronically signed by: ??Harrison Patel MD ??09/09/2024 11:03 AM EST RP ? Dictated By: ?Harrison Patel MD ? Signed By: ?<Electronically signed by Harrison Patel MD in OV> ?09/09/24 1103 ? DD/ 1034 ? TD/TT: 09/09/24 1045 ? Academic Associate: ? Procedure Note Cesar Justice - 09/09/[address] [address] XRay Report Signed Patient: Pierce Velasco#: [id number] : 1965Acct:[id number] Age/Sex: 59 / MADM Date: 09/09/24 Loc: HO.ED Attending Dr: Ordering Physician: Deandra Reynolds DO Date of Service: 09/09/24 Procedure(s): XR chest 2V Accession Number(s): [id number] cc: Ashley Frankel MD; Deandra Reynolds DO EXAMINATION: XR CHEST CLINICAL INFORMATION: chest pain COMPARISON: 08/14/2024. 09/18/2023. TECHNIQUE: 2 views of the chest were obtained. FINDINGS: The cardiac, hilar, and mediastinal contours are normal. The lungs are clear bilaterally. There is no pneumothorax or pleural effusion. There is no focal osseous or soft tissue abnormality. XR/XR chest 2V IMPRESSION: No active pulmonary disease. Electronically signed by: Harrison Patel MD 09/09/2024 11:03 AM EST RP Dictated By: Harrison Patel MD Signed By: <Electronically signed by Harrison Patel MD in OV> 09/09/24 1103 DD/ 1034 TD/TT: 09/09/24 1045 Academic Associate: [facility] External Provider IMG XR PROCEDURES Edited Result - Final * XR Chest 1 View (08/14/2024 9:48 PM EST) Anatomical Region Laterality Modality Chest Radiographic Hannah ging 08/14/2024 9:48 PM EST Narrative 08/15/2024 1:43 AM EST ? [facility] ?[address] ?[place] [address] ?XRay Report ? Signed ? Patient: Krista,Bobby ?MR#: [id number] ? : 1965 ?Acct:[id number] ? Age/Sex: 58 / M ?ADM Date: /18/24 ? Loc: HO.ED ? Attending Dr: ? Ordering Physician: Toñito Hsieh MD ?? Date of Service: 12/ ?? Procedure(s): XR chest 1V ?? Accession Number(s): [id number] ? cc: Ashley Frankel MD; Toñito Hsieh MD ? EXAMINATION: ?? XR CHEST ? CLINICAL INFORMATION: ?? Right-sided chest pain ? COMPARISON: ?? September 18, 2023 ? TECHNIQUE: ?? Frontal view of the chest was obtained. ? FINDINGS: ?? The cardiomediastinal silhouette is normal. There is a small apparent ?? opacity right lateral mid lung field covering approximately 3 cm. The ?? left lung is clear. There are no significant pleural effusions. The ?? bony structures and soft tissues are unremarkable. ? XR/XR chest 1V ?? IMPRESSION: ?? Small apparent opacity in the right lateral mid lung field. This is ?? nonspecific and may be projectional, however, a developing infiltrate ?? cannot be excluded. ? Electronically signed by: ??Max Kent MD ??08/15/2024 01:40 AM EST RP ? Dictated By: ?Max Kent MD ? Signed By: ?<Electronically signed by Max Kent MD in OV> ?08/15/24 0140 ? DD/ ? TD/TT: 08/14/242203 ? Academic Associate: ? Procedure Note Donshobha, Image - 08/15/2024 [place] [address] XRay Report Signed Patient: Pierce Velasco#: [id number] : 1965Acct:[id number] Age/Sex: 58 / MADM Date: 08/14/24 Loc: HO.ED Attending Dr: Ordering Physician: Toñito Hsihe MD Date of Service: 08/14/24 Procedure(s): XR chest 1V Accession Number(s): [id number] cc: Ashley Frankel MD; Toñito Hsieh MD EXAMINATION: XR CHEST CLINICAL INFORMATION: Right-sided chest pain COMPARISON: September 18, 2023 TECHNIQUE: Frontal view of the chest was obtained. FINDINGS: The cardiomediastinal silhouette is normal. There is a small apparent opacity right lateral mid lung field covering approximately 3 cm. The left lung is clear. There are no significant pleural effusions. The bony structures and soft tissues are unremarkable. XR/XR chest 1V IMPRESSION: Small apparent opacity in the right lateral mid lung field. This is nonspecific and may be projectional, however, a developing infiltrate cannot be excluded. Electronically signed by: Max Kent MD 08/15/2024 01:40 AM EST Dictated By: Max Kent MD Signed By: <Electronically signed by Max Kent MD in OV> 08/15/24 0140 DD/ 47 TD/TT: 08/14/242203 Academic Associate: [facility] External Provider IMG XR PROCEDURES Edited Result - Final * (ABNORMAL) Urinalysis, Complete, with Reflex to Culture (08/14/2024 9:12 PM EST) Only the most recent of2 resultswithin the time period is included. Color Urine Dark Yellow [facility] Appearance Urine Clear [facility] PH 5.5 5.0 - 9.0 [facility] Glucose Urine UA Negative Negative mg/dL [facility] Urine Blood Trace(A) Negative [facility] Specific [place] - Urine 1.025 1.005 - 1.025 [facility] Urine Protein Trace Neg-Trace mg/dL [facility] Urine Ketones 15 Negative mg/dL [facility] Nitrite Urine Negative Negative [facility] Leukocyte Esterase Urine Negative Negative [facility] RBC Urine 6-10(A) 0 - 2 /HPF [facility] Urine WBC 0-5 0 - 5 /HPF [facility] Urine Squamous Epithelial Cell 0-2 0 - 2 /HPF [facility] Urine Bacteria None Seen None Seen [facility] Hyaline Casts, Urine 0-2 0 - 2 /LPF [facility] 08/14/2024 9:12 PM EST 08/14/2024 9:16 PM EST Narrative [facility] - 08/14/2024 9:31 PM EST Urine, Clean Catch Generic External Data Provider LAB URINE ORDERAB LES Final Result [facility] [address] [place] [phone] * (ABNORMAL) Comprehensive Metabolic Panel (08/14/2024 8:34 PM EST) Only the most recent of2 resultswithin the time period is included. Sodium 139 135 - 145 mmol/L [facility] Potassium 3.6 3.3 - 5.1 mmol/L [facility] Chloride 105 96 - 108 mmol/L [facility] Carbon Dioxide 27 22 - 29 mmol/L [facility] Anion Gap 11(L) 12 - 20 [facility] Urea Nitrogen (BUN) 14 9 - 16 mg/dL [facility] Creatinine, Serum 1.08 0.5 - 1.4 mg/dL [facility] Creatinine Clr Calc Pharmacy 74.6 [facility] Comment:eGFR (calculated fro m the MDRD study equation) and eCrCl(calculated from the Cockcroft-Gault equation) are based ondifferent parameters and may not yield comparable results.If eCrCl result is absurd, please check patient'sheight/weight. Estimated Glomerular Filt Rate >60 [facility] Comment:Chronic Kidney Disea se: Estimated GFR < 60 mL/min/1.74e3Nduypp Kidney Disease: Estimated GFR < 15 mL/min/1.73m2 Glucose 244(H) 60 - 115 mg/dL [facility] Calcium 9.6 8.4 - 10.2 mg/dL [facility] Bilirubin, Total 0.5 0.0 - 1.0 mg/dL [facility] Aspartate Amino Transferase 25 5 - 37 U/L [facility] Alanine Aminotransferase 20 0 - 40 U/L [facility] Total Protein 7.5 6.5 - 8.0 g/dL [facility] Albumin Level 3.8 3.5 - 5.0 g/dL [facility] Alkaline Phosphatase 83 39 - 117 U/L [facility] 08/14/2024 8:34 PM EST 08/14/2024 8:36 PM EST us Generic External Data Provider LAB BLOOD ORDERAB LES Final Result [facility] [address] [place] [phone] * Albumin, Random Urine W/Creatinine (08/13/2024 11:26 AM EST) Only the most recent of2 resultswithin the time period is included. Creatinine, Urine 73.67 mg/dL [facility] Microalbumin Urine 13.0 mg/L [facility] Microalbum Creatinine Ratio Ur 17.6 <30 ug/mg cr [facility] Comment:Albumin/Creatinine R atio Reference Ranges: Normal: < 30 ug/mg creatinine Microalbuminuria: 30 - 300 ug/mg creatinineClinical Albuminuria: > 300 ug/mg creatinine Urine 08/13/2024 11:2 6 AM EST 08/13/2024 1:00 PM EST Ashley Frankel MD LAB URINE ORDERABLES Final Result Performing Organization Address [facility] de Phone Number [facility] [address] [place] [phone] * Testosterone, Total, males (Adult), IA (08/13/2024 11:26 AM EST) Testosterone, Total 317 250 - 1100 ng/dL [facility] Comment:For additional infor mation, please refer [email or web address]/faq/[email or web address](This link is being provided for informational/educational purposes only.)This test was developed and its analytical performancecharacteristics have been determined by [employer] [place], [place]. It hasnot been cleared or approved by the U.S. Food and DrugAdministration. This assay has been validated pursuantto the CLIA regulations and is used for clinicalpurposes.THIS TEST WAS PERFORMED AT:[employer]/[id number] [place] [address]YCIEAMDDANIELLE BOLTON MD,PHD 08/13/2024 11:2 6 AM EST 08/13/2024 12:59 PM EST Generic External Data Provider LAB BLOOD ORDERAB LES Final Result Performing Organization Address [facility] Co de Phone Number [facility] [address] [place] [phone] * PSA,Total (08/13/2024 11:26 AM EST) Prostate Specific Antigen 0.69 <0.05 - 4.0 ng/mL [facility] Comment:PSA methodology: Abb sukhwinder Alinity i ChemiluminescentMicroparticle Immunoassay (CMIA) 08/13/2024 11:2 6 AM EST 08/13/2024 12:59 PM EST Generic External Data Provider LAB BLOOD ORDERAB LES Final Result Performing Organization Address [facility] Co de Phone Number [facility] [address] [place] [phone] * (ABNORMAL) Hemoglobin A1c (08/13/2024 11:26 AM EST) Only the most recent of2 resultswithin the time period is included. Hemoglobin A1c 6.2(H) <6.0 % [facility] Comment:Hemoglobin A1C Refer ence Range Adults: 4.8 - 6.0 % Non diabetic: < 6.0 % Goal: < 7.0 %Additional Action Suggested: > 8.0 %Note: Hemoglobin A1c results are invalid for patients with abnormal amounts of HbF. Blood transfusions may impact the HbA1c concentration in the patient sample. Estimated Average Glucose 131 mg/dL [facility] Comment:eAG = Estimated ave rage glucose which is %A1C expressed asaverage glucose, using the formula of the X3I-IfsjlriMltiheg Glucose study (ADAG), Diabetes Care, Vol.31,#8,Mar. 2007 Blood Venous blood specimen / Unknown 08/13/2024 11:26 AM EST 08/13/2024 12:59 PM EST us Ashley Frankel MD LAB BLOOD ORDERABLES Final Result [facility] [address] [place] [phone] * (ABNORMAL) Lipid Panel, Standard (08/13/2024 11:26 AM EST) Only the most recent of2 resultswithin the time period is included. Triglycerides 86 <150 mg/dL [facility] Comment:Desirable Triglyceri de: less than 150 mg/dLBorderline High Triglyceride 150-199 mg/dLHigh Triglyceride: 200-499 mg/dLVery High Triglyceride: greater than or equal to 5OO mg/dL Cholesterol 146 <200 mg/dL [facility] Comment:Desirable Cholestero l: less than 200 mg/dLBorderline High Cholesterol: 200-239 mg/dLHigh Cholesterol: greater than 239 mg/dL LDL Cholesterol Calculated 96 <100 mg/dL [facility] Comment:Desirable LDL: less than 100 mg/dLNear Optimal/Above Optimal LDL: 110- 129 mg/dLBorderline High LDL: 130-159 mg/dLHigh LDL: 160-189 mg/dLVery High LDL: greater than or equal to 190 mg/dL HDL Cholesterol 33(L) >40 mg/dL [facility] Comment:Desirable HDL: great er than 40 mg/dL Note: This HDL assay may give artificially low results in patients with liver disease. Blood Venous blood specimen / Unknown 08/13/2024 11:26 AM EST 08/13/2024 12:59 PM EST us Ashley Frankel MD LAB BLOOD ORDERABLES Final Result [facility] [address] [place] [phone] * CT Head w/o Contrast (07/19/2024 12:28 PM EST) Anatomical Region Laterality Modality Head, Neck Computed Tomogra phy 07/19/2024 12:2 8 PM EST Narrative 07/19/2024 2:58 PM EST ? [facility] ?[address] ?[place] [address] ? CT Scan Report ? Signed ? Patient: Krista,Bobby ?MR#: [id number] ? : 1965 ?Acct:[id number] ? Age/Sex: 58 / M ?ADM Date: 07/19/24 ? Loc: HO.ED ? Attending Dr: ? Ordering Physician: Bob Hastings ?? Date of Service: 07/19/24 ?? Procedure(s): CT head/brain wo IV con ?? Accession Number(s): [id number] ? cc: Ashley Frankel MD; Bob Hastings ? EXAMINATION: ?? CT HEAD WITHOUT CONTRAST ? CLINICAL INFORMATION: ?? Headache, dizziness ? COMPARISON: ?? Head CT 08/07/2023 ? TECHNIQUE: ?? Contiguous axial imaging was performed from the skull base to vertex ?? without intravenous administration of contrast. ? This CT examination was performed using dose optimization techniques as ?? appropriate, variously including the following: ?? *Automated exposure control ?? *Adjustment of mA and/or kV according to patient size (this includes ?? techniques or standardized protocols for targeted exams where dose is ?? matched to indication/reason for exam; i.e. extremities or head) ?? *Use of iterative reconstruction technique ? DLP: ?? 746 mGy-cm ? FINDINGS: ?? No intra-axial or extra-axial hemorrhage. ? No acute territorial infarct. ? Ventricles and sulci appear normal. 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 Preservation of ?? grimes-white matter differentiation. ? No mass, mass effect, or midline shift. ? No fracture. Polypoid mucosal thickening in the inferior right ?? maxillary sinus. The mastoid air cells and visualized paranasal sinuses ?? are otherwise clear. ? CT/CT head/brain wo IV con ?? IMPRESSION: ?? No acute territorial infarct. Microangiopathic changes of the ?? periventricular white matter appears chronic and similar. ? Electronically signed by: ??Damian Mendoza MD ??07/19/2024 02:54 PM ?? EST RP ? Dictated By: ?Damian Mendoza MD ? Signed By: ?<Electronically signed by Damian Mendoza MD in OV> ? 07/19/24 1454 ? DD/ 1228 ? TD/TT: 07/19/24 1235 ? Academic Associate: DM ? Procedure Note Donotuseinterpreter, Image - 07/19/[address] [address] CT Scan Report Signed Patient: Pierce Velasco#: [id number] : 1965Acct:[id number] Age/Sex: 58 / MADM Date: 07/19/24 Loc: HO.ED Attending Dr: Ordering Physician: Bob Hastings Date of Service: 07/19/24 Procedure(s): CT head/brain wo IV con Accession Number(s): [id number] cc: Ashley Frankel MD; Bob Hastings EXAMINATION: CT HEAD WITHOUT CONTRAST CLINICAL INFORMATION: Headache, dizziness COMPARISON: Head CT 08/07/2023 TECHNIQUE: Contiguous axial imaging was performed from the skull base to vertex without intravenous administration of contrast. This CT examination was performed using dose optimization techniques as appropriate, variously including the following: *Automated exposure control *Adjustment of mA and/or kV according to patient size (this includes techniques or standardized protocols for targeted exams where dose is matched to indication/reason for exam; i.e. extremities or head) *Use of iterative reconstruction technique DLP: 746 mGy-cm FINDINGS: No intra-axial or extra-axial hemorrhage. No acute territorial infarct. Ventricles and sulci appear normal. 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 Preservation of grimes-white matter differentiation. No mass, mass effect, or midline shift. No fracture. Polypoid mucosal thickening in the inferior right maxillary sinus. The mastoid air cells and visualized paranasal sinuses are otherwise clear. CT/CT head/brain wo IV con IMPRESSION: No acute territorial infarct. Microangiopathic changes of the periventricular white matter appears chronic and similar. Electronically signed by: Damian Mendoza MD 07/19/2024 02:54 PM EST RP Dictated By: Damian Mendoza MD Signed By: <Electronically signed by Damian Mendoza MD inOV> 07/19/24 1454 DD/ 1228 TD/TT: 07/19/24 1235 Academic Associate: [facility]EV[facility] External Provider IMG CT PROCEDURES Final Result * Prothrombin Time-INR (07/19/2024 12:14 PM EST) Prothrombin Time 11.3 10.9 - 12.4 SEC [facility] INTERNATIONAL NORM RATIO 1.0 0.9 - 1.1 [facility] Comment:INTERNATIONAL NORMAL IZED RATIO (INR) REFERENCE RANGES Reference RangeFor patients not on anticoagulant therapy: 0.9 - 1.1INR ranges for oral anticoagulanttherapy:For prevention and treatment of venous thrombosis and pulmonary embolism: 2.0 - 3.0For acute myocardial infarction with aspirin therapy: 2.0 - 3.0For acute myocardial infarction without aspirin therapy: 3.0 - 4.0For patients with mechanical prosthetic heart valves: 2.5 - 3.5 07/19/2024 12:1 4 PM EST 07/19/2024 12:18 PM EST Generic External Data Provider LAB BLOOD ORDERAB LES Final Result Performing Organization Address City/State/[facility] Co de Phone Number [facility] [address] [place] [phone] * (ABNORMAL) POCT HGB A1C (07/17/2024 9:58 AM EST) Hemoglobin A1C 6.3(A) 4.0 - 6.0 % QC Media Lot # [id number] Lot# Expiration Date Blood 07/17/2024 9:58 AM EST Ashley Frankel MD POINT OF CARE TEST ENTER/E DIT ORDERABLES Final Result * POCT Glucose (07/17/2024 9:58 AM EST) Pathologist [facility] Glucose Blood, POC 153 60 - 200 mg/dL Comment:Random QC Media Lot # [id number] Lot# Expiration Date Blood Capillary blood specimen / Unknown 07/17/2024 9:58 AM EST Ashley Frankel MD POINT OF CARE TEST ENTER/E DIT ORDERABLES Final Result * Hm Colonoscopy (04/06/2023) Pathologist [facility] Colonoscopy Normal Normal [facility] Provider HEALTH MAINTENANCE Final Result * Hepatitis C Antibody with Reflex to HCV, RNA, Quantitative, Real-Time PCR (11/11/2022 8:59 AM EDT) [facility] Hepatitis C Antibody NON-REACT KELSY NON-REACT KELSY [employer] Index 0.64 <1.00 [employer] Comment: HCV antibody was non-reactive. There is no laboratory evidence of HCV infection. In most cases, no further action is required. However, if recent HCV exposure is suspected, a test for HCV RNA (test code 77254) is suggested. For additional information please refer to http://education.[employer]/faq/IOM56g6 (This link is being provided for informational/ educational purposes only.) Blood Venous blood specimen / Unknown 11/11/2022 8:59 AM EDT 11/11/2022 8:59 AM EDT Narrative [facility] - 11/11/2022 9:36 PM EDT FASTING:YES FASTING: YES Ashley Frankel MD LAB BLOOD ORDERABLES Final Result [facility] [address], [place] [address] [employer] [place] [employer] [address] [place] [address] * HIV 1/2 ANTIGEN/ANTIBODY,FOURTH GENERATION W/RFL (02/13/2020 8:50 AM EDT) HIV-1/2 ANTIGEN AND ANTIBODIES, 4TH GENERATION W/ REFLEX NON-REACT KELSY NON-REACT KELSY [facility] Comment: HIV-1 antigen and HIV-1/HIV-2 antibodies were not detected. There is no laboratory evidence of HIV infection. ?? PLEASE NOTE: This information has been disclosed to you from records whose confidentiality may be protected by state law. ??If your state requires such protection, then the state law prohibits you from making any further disclosure of the information without the specific written consent of the person to whom it pertains, or as otherwise permitted by law. A general authorization for the release of medical or other information is NOT sufficient for this purpose. ? For additional information please refer to http://education.[employer]/faq/YWL619 (This link is being provided for informational/ educational purposes only.) ? The performance of this assay has not been clinically validated in patients less than 2 years old. ?? 02/13/2020 8:50 AM EDT us Ashley Frankel MD LAB BLOOD ORDERABLES Final Result [facility] [address] from Last 3 Months or Most Recently Relevant to Health Maintenance Insurance [facility] Care Teams Comber Tender Relationship Specialty Start Date End Date Mora, MD Ashley [address] [place] [address] PCP - General Family Medicine 08/28/18Hoang, November [address] [address] Gastroenterology 07/17/24 Kishore Dorsey MD [address] [place] [address] Urology 07/17/24 Raheel Gee 5 [place], [place] 10[address] Pulmonary Disease 07/17/24 Riya Fulton [address] [address] Cardiology 07/17/24 Sergio Hackett [address]nd [place] [address] Orthopaedic Surgery 07/17/24 Dominga Silva, Mehrdad 230 [place] [address] Pharmacist Internal Medicine 07/22/24
--- OUTSIDE RECORDS SUMMARY | 2024-09-17 13:01 | XMS_ITS | Encounter Summary ---
Author Organization [employer] Address [address] [facility] 7t [place] [address] Care Team Providers Care Public Relations Sales Marketing Name Role Phone Ashley Frankel MD Primary Care Provider [phone] Viktor November Unavailable Kishore Dorsey MD Unavailable Raheel Gee Unavailable [phone] Riya Fulton Unavailable Sergio Hackett Unavailable Unavailable Dominga Silva PharmD Unavailable [phone] Encounter Details Date Type Department Care Team (Late st Contact Info) Description 08/26/2024 Telephone [facility] 230 [place], [place] [phone] Ashley Frankel MD 230 [place], [place] [phone] Social History Tobacco Use Types Packs/Day Years [...] Description 10/24/2024 9:15 AM EST Office Visit [facility] [address] [place] [phone] Ashley Frankel MD [address] [place] [address] 12/09/2024 8:00 AM EDT Office Visit [facility] [address] [place] [address] Jackie Peacock documented as of this encounter Visit Diagnoses Not on filedocumented in this encounter Additional Health Concerns Assessment Noted Time PHQ-9 Depression Total Score: 0 07/17/20 24 10:33 AM EST documented as of this encounter Care Teams Public Relations Sales Marketing Relationship Specialty Start Date End Date Ashley Frankel MD [address] [place] [address] PCP - General Family Medicine 08/28/18HoangNovember [address] 3rd [place] [address] Gastroenterology 07/17/24 Kishore Dorsey MD [address] [place] [address] Urology 07/17/24 Raheel Gee 5 [place], [place] 1040 Pulmonary Disease 07/17/24 Riya Fulton [address] 3rd [place] [address] Cardiology 07/17/24 Sergio Hackett 300 [facility] 2nd [place] [address] Orthopaedic Surgery 07/17/24 Dominga Silva, AnanthD 230 [place] [address] Pharmacist Internal Medicine 07/22/24 documented as of this encounter
--- OUTSIDE RECORDS SUMMARY | 2024-09-17 13:01 | XMS_ITS | Encounter Summary ---
Author Organization [employer] Address [address] [place] [address] 7t [place] [address] Care Team Providers Care Fitting Room Checker Name Role Phone Ashley Frankel MD Primary Care Provider [phone] Hoang, November Unavailable Kishore Dorsey MD Unavailable Raheel Gee Unavailable [phone] Riya Fulton Unavailable Sergio Hackett Unavailable Unavailable Dominga Silva PharmD Unavailable Encounter Details Date Type Department Care Team (Late st Contact Info) Description 02/01/2023 Telephone [facility] 230 [place], [place] [phone] Ashley Frankel MD 230 [place], [place] [phone] Social History Tobacco Use Types Packs/Day Years Used Date Smoking Tobacco: Former Cigarettes Smokeless Tobacco: Never Depression Answer Date Recorded Patient Health Questionnaire-2 Score 0 11/09/2022 Sex and Gender Information Value Date Recorded Sex Assigned at Male 06/27/2022 10:18 AM EDT Legal Sex Male 10:18 AM EDT Gender Identity Male 06/27/2022 10:18 AM EDT Sexual Orientation Straight 06/27/2022 10 :18 AM EDT COVID-19 Exposure Response Date Recorded In the last 10 days, have yo u been in contact with someone who was confirmed or suspected to have Coronavirus/COVID-19? No / Unsure 01/30/2023 7:48 AM EDT documented as of this encounter Plan of Treatment Upcoming Encounters Date Type Department Care Team (Late st Contact Info) Description 10/24/2024 9:15 AM EST Office Visit [facility] 230 [place] [address] Ashley Frankel MD 230 [place] [address] 12/09/2024 8:00 AM EDT Office Visit [facility] ADULT DENTAL [address] [place] [address] Jackie Peacock documented as of this encounter Visit Diagnoses Not on filedocumented in this encounter Care Teams Fitting Room Checker Relationship Specialty Start Date End Date Ashley Frnakel MD [address] [place] [address] PCP - General Family Medicine 08/28/18 Viktor Sonya 11 [facility] 3rd [place] [address] Gastroenterology 07/17/24 Kishore Dorsey MD 10 [facility] [address] [place] [address] Urology 07/17/24 Raheel Gee 5 [place], [place] 1040 Pulmonary Disease 07/17/24 Riya Fulton 11 [facility] 3rd [place] [address] Cardiology 07/17/24 Sergio Hackett [address] [place] [address] Orthopaedic Surgery 07/17/24 Dominga Silva, Mehrdad [address] [place] [address] Pharmacist Internal Medicine 07/22/24 documented as of this encounter
--- OUTSIDE RECORDS SUMMARY | 2024-09-17 13:01 | XMS_ITS | Encounter Summary ---
Author Organization [employer] Address [address] [facility] 7t [place] [address] Care Team Providers Care Narcotics And Vice Detective Name Role Phone Ashley Frankel MD Primary Care Provider [phone] Viktor November Unavailable Kishore Dorsey MD Unavailable Raheel Gee Unavailable [phone] Riya Fulton Unavailable Sergio Hackett Unavailable Unavailable Dominga Silva PharmD Unavailable Reason for Visit * Reason Comments Med Change Request Encounter Details Date Type Department Care Team (Late st Contact Info) Description 07/12/2023 Refill [facility] 230 [place], [place] [phone] Ashley Frankel MD 230 [place], [place] [phone] Social History Tobacco Use Types Packs/Day Years [...] Description 10/24/2024 9:15 AM EST Office Visit [facility] [address] [place] [address] Ashley Frankel MD [address] [place] [address] 12/09/2024 8:00 AM EDT Office Visit [facility] ADULT D[facility] [address] [place] [address] Jackie Peacock documented as of this encounter Visit Diagnoses Not on filedocumented in this encounter Care Teams Narcotics And Vice Detective Relationship Specialty Start Date End Date Ashley Frankel MD [address] [place] [address] PCP - General Family Medicine 08/28/18November [address] 3rd [place] [address] Gastroenterology 07/17/24 Kishore Dorsey MD [address] [place] [address] Urology 07/17/24 Raheel Gee 5 [place], [place] 1040 Pulmonary Disease 07/17/24 Riya Fulton 11 [facility] 3rd [place] [address] Cardiology 07/17/24 Sergio Hackett [address] [facility] [address]nd [place] [address] Orthopaedic Surgery 07/17/24 Dominga Silva, Mehrdad 230 [place] [address] Pharmacist Internal Medicine 07/22/24 documented as of this encounter
--- OUTSIDE RECORDS SUMMARY | 2024-09-17 13:01 | XMS_ITS | Encounter Summary ---
Author Organization [employer] Address [address] [facility] 7t [place] [address] Care Team Providers Care Insurance Coder Name Role Phone Ashley Frankel MD Primary Care Provider [phone]- [phone] November Unavailable Kishore Dorsey MD Unavailable [phone] Raheel Gee Unavailable [phone] Riya Fulton Unavailable Sergio Hackett Unavailable Unavailable Dominga Silva PharmD Unavailable Encounter Details Date Type Department Care Team (Late st Contact Info) Description 09/09/2024 Orders Only [facility] External Provider, [facility] Social History Tobacco Use Types Packs/Day Years [...] 9:15 AM EST Office Visit [facility] 230 [place], [place] [phone] Ashley Frankel MD 230 [place], [place] [phone] 12/09/2024 8:00 AM EDT Office Visit [facility] 230 [place], [place] [phone] Jackie Peacock documented as of this encounter Procedures Procedure Name Priority Date/Time Associated Diagnosis Comments HIGH SENSITIVITY TROPONIN I Routine 09/09/2024 2:44 PM EST CBC WITH AUTO DIFFERENTIAL Routine 09/09/2024 11:02 AM EST MAGNESIUM Routine 09/09/2024 11:02 AM EST LIPASE Routine 09/09/2024 11:02 AM EST HEPATIC FUNCTION PANEL Routine 09/09/2024 11:02 AM EST BASIC METABOLIC PANEL Routine 09/09/2024 11:02 AM EST HIGH SENSITIVITY TROPONIN I Routine 09/09/2024 11:01 AM EST SARS COV2/INFLUENZA A/B AND RSV RNA QL NAAT Routine 09/09/2024 11:01 AM EST XR CHEST 2 VIEWS Routine 09/09/2024 10:3 4 AM EST documented in this encounter Results * High Sensitivity Troponin I (09/09/2024 2:44 PM EST) TROPONIN I HIGH SENSITIVITY 5.2 <3.5 - 35.0 ng/L [facility] Comment:The Schmidt high sens itivity Troponin-I results should beused in conjunction with other diagnostic information suchas ECG, clinical observations and information, and patientsymptoms to aid in the diagnosis of [place]. 09/09/2024 2:44 PM EST 09/09/2024 2:53 PM EST Generic External Data Provider LAB BLOOD ORDERAB LES Final Result Performing Organization Address [facility] Co de Phone Number [facility] [address] [place] [phone] * Lipase (09/09/2024 11:02 AM EST) Pathologist [facility] Lipase 28 8 - 78 U/L [facility] 09/09/2024 11:0 2 AM EST 09/09/2024 11:06 AM EST Generic External Data Provider LAB BLOOD ORDERAB LES Final Result Performing Organization Address [facility] Co de Phone Number [facility] [address] [place] [phone] * Magnesium (09/09/2024 11:02 AM EST) Pathologist [facility] Magnesium 2.0 1.6 - 2.6 mg/dL [facility] 09/09/2024 11:0 2 AM EST 09/09/2024 11:06 AM EST Generic External Data Provider LAB BLOOD ORDERAB LES Final Result Performing Organization Address City/[facility]/ZIP Co de Phone Number [facility] [address] [place] [phone] * (ABNORMAL) Basic Metabolic Panel (09/09/2024 11:02 AM EST) Sodium 142 135 - 145 mmol/L [facility] Potassium 3.7 3.3 - 5.1 mmol/L [facility] Chloride 108 96 - 108 mmol/L [facility] Carbon Dioxide 29 22 - 29 mmol/L [facility] Anion Gap 9(L) 12 - 20 [facility] Urea Nitrogen (BUN) 13 9 - 16 mg/dL [facility] Creatinine, Serum 1.00 0.5 - 1.4 mg/dL [facility] Creatinine Clr Calc Pharmacy 81.3 [facility] Comment:eGFR (calculated fro m the MDRD study equation) and eCrCl(calculated from the Cockcroft-Gault equation) are based ondifferent parameters and may not yield comparable results.If eCrCl result is absurd, please check patient'sheight/weight. Estimated Glomerular Filt Rate >60 [facility] Comment:Chronic Kidney Disea se: Estimated GFR < 60 mL/min/1.68n3Zspwxe Kidney Disease: Estimated GFR < 15 mL/min/1.73m2 Glucose 147(H) 60 - 115 mg/dL [facility] Calcium 9.2 8.4 - 10.2 mg/dL [facility] 09/09/2024 11:0 2 AM EST 09/09/2024 11:06 AM EST Generic External Data Provider LAB BLOOD ORDERAB LES Final Result Performing Organization Address City/[facility]/ZIP Co de Phone Number [facility] [address] [place] [phone] * Hepatic Function Panel (09/09/2024 11:02 AM EST) Bilirubin, Total 0.9 0.0 - 1.0 mg/dL [facility] Bilirubin, Direct 0.3 0.0 - 0.5 mg/dL [facility] Aspartate Amino Transferase 29 5 - 37 U/L [facility] Alanine Aminotransferase 23 0 - 40 U/L [facility] Total Protein 6.9 6.5 - 8.0 g/dL [facility] Albumin Level 4.1 3.5 - 5.0 g/dL [facility] Alkaline Phosphatase 100 39 - 117 U/L [facility] 09/09/2024 11:0 2 AM EST 09/09/2024 11:06 AM EST us Generic External Data Provider LAB BLOOD ORDERAB LES Final Result [facility] [address] [place] [phone] * (ABNORMAL) CBC auto differential (09/09/2024 11:02 AM EST) White Blood Count 3.7(L) 4.8 - 10.8 X10*3/uL [facility] Red Blood Count 4.60 4.60 - 5.80 X10*6/uL [facility] Hemoglobin 13.8(L) 14.0 - 18.0 g/dl [facility] Hematocrit 41.4(L) 42.0 - 52.0 % [facility] Mean Corpuscular Volume 90.0 80.0 - 98.0 fL [facility] Mean Corpuscular Hemoglobin 30.0 27.0 - 33.0 pg [facility] Mean Corpuscular HGB Conc 33.3 31.0 - 36.0 g/dl [facility] Red Cell Distribution Width 13.2 11.0 - 16.0 % [facility] Platelet Count 208 160 - 400 X10*3/uL [facility] Mean Platelet Volume 10.4 9.4 - 12.4 fL [facility] Neutrophils Percent Auto 53.8 45 - 73 % [facility] Imm Gran Pct Auto 0.3 0.0 - 0.4 % [facility] Lymphocytes Percent Auto 32.4 20 - 40 % [facility] Monocytes Percent Auto 10.3 2 - 11 % [facility] Eosinophils Percent Auto 2.4 0 - 4 % [facility] Basophils Percent Auto 0.8 0 - 2 % [facility] NRBC Pct Auto 0.0 0.0 - 0.2 /100WBC [facility] Neutrophils Absolute Auto 2.0 2.0 - 8.3 x10*3/uL [facility] Imm Gran Abs Auto 0.01 0.00 - 0.03 X10*3/uL [facility] Lymphocytes Absolute Auto 1.2 1.2 - 4.9 X10*3/uL [facility] Monocytes Absolute Auto 0.4 0.1 - 1.2 X10*3/uL [facility] Eosinophils Absolute Auto 0.1 0.0 - 0.4 X10*3/uL [facility] Basophils Absolute Auto 0.0 0.0 - 0.2 X10*3/uL [facility] NRBC Abs Auto 0.000 0.0 - 0.012 X10*3/uL [facility] 09/09/2024 11:0 2 AM EST 09/09/2024 11:06 AM EST us Generic External Data Provider LAB BLOOD ORDERAB LES Final Result [facility] [address] [place] [phone] * SARS-CoV-2 RNA, Influenza A/B, and RSV RNA, Ql NAAT (09/09/2024 11:01 AM EST) Influenza A PCR NEGATIVE Negative [facility] Influenza B PCR NEGATIVE Negative [facility] Resp Syncy Virus RNA Qual PCR NEGATIVE Negative [facility] SARS COV2 PCR NEGATIVE Negative [facility] Comment:All test results mus [...] use by authorized laboratories.Testing performed on the [employer] GeneXpert utilizingreal-time RT-PCR.All SARS CoV2 and positive influenza A/B results arereported to [facility]. 09/09/2024 11:0 1 AM EST 09/09/2024 11:06 AM EST Generic External Data Provider LAB MICROBIOLOGY - GENERAL ORDERABLES Final Result Performing Organization Address [facility] de Phone Number [facility] [address] [place] [phone] * High Sensitivity Troponin I (09/09/2024 11:01 AM EST) [facility] TROPONIN I HIGH SENSITIVITY 3.2 <3.5 - 35.0 ng/L [facility] Comment:The Schmidt high sens itivity Troponin-I results should beused in conjunction with other diagnostic information suchas ECG, clinical observations and information, and patientsymptoms to aid in the diagnosis of [place]. 09/09/2024 11:0 1 AM EST 09/09/2024 11:06 AM EST Generic External Data Provider LAB BLOOD ORDERAB LES Final Result Performing Organization Address [facility] de Phone Number [facility] [address] [place] [phone] * XR Chest 2 Views (09/09/2024 10:34 AM EST) Anatomical Region Laterality Modality Chest Radiographic Hannah ging 09/09/2024 10:3 4 AM EST Narrative 09/09/2024 11:06 AM EST ? [facility] ?[address] ?[place] [address] ?XRay Report ? Signed ? Patient: Krista,Bobby ?MR#: [id number] ? : 1965 ?Acct:[id number] ? Age/Sex: 59 / M ?ADM Date: 09/09/24 ? Loc: HO.ED ? Attending Dr: ? Ordering Physician: Deandra Reynolds DO ?? Date of Service: 09/09/24 ?? Procedure(s): XR chest 2V ?? Accession Number(s): [id number] ? cc: Ashley Frankel MD; Deandra Reynolds [...] DD/ 1034 ? TD/TT: 09/09/24 1045 ? Web Graphic Designer: ? Procedure Note Cesar Justice - 09/09/[address] [address] XRay Report Signed Patient: Pierce Velasco#: [id number] : 1965Acct:[id number] Age/Sex: 59 / MADM Date: 09/09/24 Loc: HO.ED Attending Dr: Ordering Physician: Deandra Reynolds DO Date of Service: 09/09/24 Procedure(s): XR chest 2V Accession Number(s): [id number] cc: Ashley Frankel MD; Deandra Reynolds DO [...] Harrison Patel MD 09/09/2024 11:03 AM EST Dictated By: Harrison Patel MD Signed By: <Electronically signed by Harrison Patel MD in OV> 09/09/24 1103 DD/ 1034 TD/TT: 09/09/24 1049 Web Graphic Designer: [facility] External Provider IMG XR PROCEDURES Edited Result - Final documented in this encounter Visit Diagnoses Not on filedocumented in this encounter Additional Health Concerns Assessment Noted Time PHQ-9 Depression Total Score: 0 07/17/20 10:33 AM EST documented as of this encounter Care Teams Insurance Coder Relationship Specialty Start Date End Date Ashley Frankel MD [address] [place] [address] PCP - General Family Medicine 08/28/18November [address] [place] [address] Gastroenterology 07/17/24 Kishore Dorsey MD [address] [place] [address] Urology 07/17/24 Raheel Gee 5 [place], [place] 10[address] Pulmonary Disease 07/17/24 Riya Fulton [address] [facility] 3rd [place] [address] Cardiology 07/17/24 Sergio Hackett [facility] [address]nd [place] [address] Orthopaedic Surgery 07/17/24 Dominga Silva, AnanthD [address] [place] [phone] Pharmacist Internal Medicine 07/22/24 documented as of this encounter
--- OUTSIDE RECORDS SUMMARY | 2024-09-17 13:01 | XMS_ITS | Encounter Summary ---
Author Organization [employer] Address [address] [place] [address] [address] [place] [address] Care Team Providers Care Assistant Men'S Soccer Coach Name Role Phone Ashley Frankel MD Primary Care Provider [phone] Viktor November Unavailable Kishore Dorsey MD Unavailable [phone] Raheel Gee Unavailable [phone] Riya Fulton Unavailable Sergio Hackett Unavailable Unavailable Dominga Silva PharmD Unavailable Encounter Details Date Type Department Care Team (Late st Contact Info) Description 04/07/2023 Abstract [facility] [address] [place] [address] [phone] Ashley Frankel MD [address] [place] [address] [phone] Social History Tobacco Use Types Packs/Day Years [...] Description 10/24/2024 9:15 AM EST Office Visit [facility] [address] [place] [address] Ashley Frankel MD [address] [place] [address] 12/09/2024 8:00 AM EDT Office Visit [facility] [address] [place] [address] Jackie Peacock documented as of this encounter Procedures Procedure Name Priority Date/Time Associated Diagnosis Comments COLONOSCOPY Routine 04/06/2023 documented in this encounter Results * Colonoscopy (04/06/2023) Colonoscopy Normal Normal Historical Provider HEALTH MAINTENANCE Final Result documented in this encounter Visit Diagnoses Not on filedocumented in this encounter Care Teams Assistant Men'S Soccer Coach Relationship Specialty Start Date End Date Ashley Frankel MD [address] [place] [address] PCP - General Family Medicine 08/28/18November [address] [place] [address] Gastroenterology 07/17/24 Kishore Dorsey MD [address] [place] [address] Urology 07/17/24 Raheel Gee [address] [place], [place] [address] Pulmonary Disease 07/17/24 Riya Fulton [address] [place] [address] Cardiology 07/17/24 Sergio Hackett [address] [place] [address] Orthopaedic Surgery 07/17/24 Dominga Silva, Mehrdad [address] [place] [address] Pharmacist Internal Medicine 07/22/24 documented as of this encounter
--- OUTSIDE RECORDS SUMMARY | 2024-09-17 13:01 | XMS_ITS | Data Portability ---
Author Organization [place] - [facility], Allergy Address [address] [place] [address] Care Team Providers Care Internal Controls Analyst Name Role Phone NAME, LINDSAY Primary Care Provider [phone] Assessment Encounter Date Assessment Date Assessment LastModified by Organization Details LastModified Time 09/16/2024 09/16/2024 59-year-old male presents for evaluation of chronic rhinitis. On examination he does have significant cerumen impaction bilaterally cleared without difficulty. TMs normal to inspection. Reports improvement of ear blockage with your cleaning. Nasal mucosa reveals blue and boggy turbinates but fairly patent nares bilaterally without sign of polyp or purulent debris. Recommended CT of the sinus for further evaluation as well as allergy testing. Patient is willing to proceed at this time. Testing will be ordered and follow-up after for review and further planning. [email or web address] Not available 09/16/2024 13:47:52 Plan of Treatment Reminders Order Date Submit Date Provider Last Modified By Organization Details Last Modified Time Details Appointments None recorded. Lab None recorded. Referral None recorded. Procedures allergy testing, skin prick (PROC) 2024 025 [email or web address] Not available 12:07:20 intraderma l allergy skin testing (PROC) 2024 025 [email or web address] Not available 5 12:07:20 pulmonary function test procedure (PROC) 2024 025 [email or web address] Not available 5 12:07:21 pulse oximetry (PROC) 2024 025 [email or web address] Not available 5 12:07:21 Surgeries None recorded. Imaging CT, maxillofac ial, w/o contrast 2024 025 [email or web address] Not available 5 11:49:13 Medication Orders None recorded. Patient TargetsNo targets recorded. Patient InstructionsNo instructions recorded. Reason for Referral None Reported. Problems Name Problem SNOMED Code Status Onset Date Resolution Date Notes Provider Name and Address Organization Details Recorded Time Allergic rhinitis 61099516 Active 2018 Perennial allergic rhinitis; Note: Date Diagnosed : 11/26/2018 12:00 PM (J30.89) Not Available [facility] 4 02:51:24 Deviated nasal septum 880594309 Active 2017 Deviated nasal septum; Note: Date Diagnosed : 05/09/2018 11:11 AM (J34.2) Not Available [facility] 4 02:51:18 Tinnitus of right ear 63215859960 08 Active 2017 Tinnitus, right ear; Note: Date Diagnosed : 01/16/2018 3:42 PM (H93.11) Not Available [facility] 4 02:51:19 Sensorine ural hearing loss of bilateral ears 316943254 Active 2017 Sensorine ural hearing loss, bilateral ; Note: Date Diagnosed : 01/16/2018 3:42 PM (H90.3) Not Available [facility] 4 02:51:21 Nasal congestio n 66480263 Active 2017 Nasal congestio n; Note: Date Diagnosed : 05/09/2018 11:11 AM (R09.81) Not Available [facility] 4 02:51:19 Dizziness and giddiness 610913472 Active 2017 Dizziness and giddiness ; Note: Date Diagnosed : 01/16/2018 3:42 PM (R42) Not Available [facility] 4 02:51:20 Headache 82146814 Active 2017 Headache; Note: Date Diagnosed : 05/09/2018 11:06 AM (R51) Not Available [facility] 4 02:51:20 Impacted cerumen of bilateral ears 12815037816 33316 Active 2024 MAXWELL DALY PA-C [address] [place] [address], [place], [address] , [facility] - [facility] 5 13:48:02 Seasonal allergic rhinitis 384411515 Active 2024 MAXWELL DALY PA-C [address] [place] [address],[place] [address], [facility] [place], [address] , [facility] 5 13:48:08 Non-aller gic rhinitis 30161341228 1 Active 2024 MAXWELL DALY PA-C [address] [place] [address],[place] [address], [place], [address] , [facility] 5 13:48:08 Problem Notes None recorded. Procedures Surgical History Date Name Laterality Status Provider Name and Address Organization Details Recorded Time 5 Cerumen removal without microscope bilat completed MAXWELL DALY PA-C [address] [place] [address],[place] [address], [place], [address], [facility] 09/16/2024 13:46:50 Imaging Results None recorded. Procedure Notes None recorded. Medical Equipment None Reported. Allergies Allergen ID Allergen Name Allergen Category Reaction Reaction Severity Criticality Documentation Date Start Date Code Code System Note Provider Name and Address Organization Details Recorded Time 410992 amoxicill in medicatio n other Not available Not available 01/09/2024 723 RxNorm React ion: unkno wn, unspe cifie d;; Not Available [facility] 4 01:20:48 939327 Product containin g penicilli n and antibioti c (product) medicatio n other Not available Not available 01/09/2024 01271 05 SNOMED React ion: unkno wn, unspe cifie d;; Not Available [facility] 4 01:20:48 Medications Name Sig Start Date Stop Date Status Note LastModified by Organization Details LastModified Time cyclobenz aprine 10 mg tablet active Not Available Not Available No t Available terazosin 5 mg capsule TAKE 1 CAPSULE BY MOUTH EVERYDAY AT BEDTIME active Not Available Not Available No t Available atorvasta tin 80 mg tablet TAKE 1 TABLET (80 MG) BY MOUTH ONCE PER DAY. active Not Available Not Available No t Available trazodone 50 mg tablet TAKE 1 TABLET BY MOUTH EVERY NIGHT AT BEDTIME NEEDED 1 TABLET NEEDED FOR SLEEP active Not Available Not Available No t Available cetirizin e 10 mg tablet TAKE 1 TABLET BY MOUTH EVERY DAY NEEDED active Not Available Not Available No t Available atorvasta tin 10 mg tablet 01/16 completed Medicati on ID: [id number] D uration Value: 30 Reason: () Brand Name: atorvast atin Sen d Method: E-Prescr ibed Sub s Allowed: subs OK Radhai al Instruct ion: TAKE ONE TABLET BY MOUTH EVERY DAY AT BEDTIME Medicati onGeneri cName: atorvast atin Not Available Not Available Not Available azithromy joaquina 250 mg tablet TAKE 2 TABLETS BY MOUTH TODAY, THEN TAKE 1 TABLET DAILY FOR 4 DAYS DIRECTED 09/16 completed Not Available Not Available Not Available ibuprofen 800 mg tablet TAKE 1 TABLET BY MOUTH 3 TIMES DAILY. 09/16 completed Not Available Not Available Not Available meloxicam 15 mg tablet TAKE 1 TABLET BY MOUTH ONCE DAILY NEEDED FOR PAIN. TAKE WITH FOOD, DO NOT TAKE ADDITION AL NSAIDS 09/16 completed Not Available Not Available Not Available FreeStyle Lancets 28 gauge TWICE A DAY active Not Available Not Available No t Available famotidin e 40 mg tablet TAKE 1 TABLET BY MOUTH EVERY DAY NEEDED FOR FOR HEARTBUR N active Not Available Not Available No t Available prednison e 5 mg tablet TAKE 2 TABLETS BY MOUTH EVERY DAY X 5 DAYS, THEN TAKE 1 TABLET EVERY DAY FOR 5 DAYS 09/16 completed Not Available Not Available Not Available chlorthal idone 25 mg tablet TAKE 1 TABLET BY MOUTH EVERY DAY 09/16 completed Not Available Not Available Not Available amlodipin e 5 mg tablet 09/16 completed Medicati on ID: [id number] D uration Value: 30 Brand Name: amlodipi ne Send Method: E-Prescr ibed Sub s Allowed: subs KAYLEEN Valles al Instruct ion: TAKE ONE TABLET BY MOUTH EVERY DAY Medi cationGe nericNam e: amlodipi ne Not Available Not Available Not Available sulfameth oxazole 800 mg-trimet hoprim 160 mg tablet TAKE 1 TABLET BY MOUTH EVERY 12 HOURS FOR 10 DAYS 09/16 completed Not Available Not Available Not Available carvedilo l 3.125 mg tablet 10/12 completed Medicati on ID: [id number] D uration Value: 30 Brand Name: carvedil ol Send Method: E-Prescr ibed Sub s Allowed: subs KAYLEEN Valles al Instruct ion: TAKE 1 TABLET BY MOUTH TWICE DAILY WITH FOOD Med icationG enericNa me: carvedil ol Not Available Not Available Not Available methocarb indy 750 mg tablet TAKE 1 TABLET (750 MG) BY MOUTH 2 TIMES DAILY FOR 10 DAYS. 09/16 completed Not Available Not Available Not Available tamsulosi n 0.4 mg capsule 01/16 completed Medicati on ID: [id number] D uration Value: 30 Reason: () Brand Name: tamsulos in Send Method: E-Prescr ibed Sub s Allowed: subs KAYLEEN Valles al Instruct ion: TAKE 1 CAPSULE EVERY DAY AT BEDTIME. Medicat ionGener icName: tamsulos in Not Available Not Available Not Available meclizine 25 mg tablet TAKE 1 TABLET 2 TIMES A DAY NEEDED FOR DIZZINES S active Not Available Not Available No t Available amlodipin e 10 mg tablet TAKE 1 TABLET BY MOUTH EVERY DAY active Not Available Not Available No t Available ibuprofen 400 mg tablet TAKE 1 TABLET BY MOUTH THREE TIMES A DAY NEEDED FOR FEVER OR PAIN 09/16 completed Not Available Not Available Not Available sertralin e 25 mg tablet TAKE 1 TABLET BY MOUTH ONCE A DAY FOR ANXIETY 09/16 completed Not Available Not Available Not Available hydroxyzi ne HCl 25 mg tablet TAKE 1-2 TABLETS BY MOUTH TWICE A DAY NEEDED FOR ANXIETY OR AT NIGHT FOR SLEEP active Not Available Not Available No t Available morphine ER 15 mg tablet,ex tended release TAKE 1 TABLET BY MOUTH EVERY 6 HOURS NEEDED FOR PAIN 09/16 completed Not Available Not Available Not Available Viagra 100 mg tablet 10/12 completed Medicati on ID: [id number] D uration Value: 10 Brand Name: Viagra S end Method: E-Prescr ibed Sub s Allowed: subs KAYLEEN Valles al Instruct ion: TAKE 1/2 TO 1 TABLET BY MOUTH ONE HOUR BEFORE sexual activity Medicat ionGener icName: Viagra Not Available Not Available Not Available ibuprofen 600 mg tablet TAKE 1 TABLET BY MOUTH EVERY 6 HOURS NEEDED FOR PAIN OR FEVER 09/16 completed Not Available Not Available Not Available levofloxa joaquina 500 mg tablet TAKE 1 TABLET BY MOUTH EVERY DAY FOR 7 DAYS 09/16 completed Not Available Not Available Not Available levofloxa joaquina 750 mg tablet 10/12 completed Medicati on ID: [id number] D uration Value: 5 Brand Name: levoflox acin Sen d Method: E-Prescr ibed Sub s Allowed: subs KAYLEEN Valles al Instruct ion: TAKE 1 TABLET BY MOUTH EVERY DAY FOR 5 DAYS Med icationG enericNa me: levoflox acin Not Available Not Available Not Available methylpre dnisolone 4 mg tablets in a dose pack TAKE 6 TABLETS ON DAY 1 DIRECTED ON PACKAGE AND DECREASE BY 1 TAB EACH DAY FOR A TOTAL OF 6 DAYS 09/16 completed Not Available Not Available Not Available lisinopri l 40 mg tablet TAKE 1 TABLET BY MOUTH EVERY DAY active Not Available Not Available No t Available fluticaso ne propionat e 50 mcg/actua tion nasal spray,bessy pension SPRAY 2 SPRAYS INTRANAS ALLY DAILY active Not Available Not Available No t Available metformin ER 500 mg tablet,ex tended release 24 hr 05/09 completed Medicati on ID: [id number] D uration Value: 30 Reason: () Brand Name: metformi n Send Method: E-Prescr ibed Sub s Allowed: subs KAYLEEN rose Instruct ion: TAKE 2 TABLETS BY MOUTH TWICE DAILY Me dication GenericN myra: metformi n Not Available Not Available Not Available sertralin e 50 mg tablet active Not Available Not Available Not Available naproxen 500 mg tablet TAKE 1 TABLET BY MOUTH TWICE A DAY NEEDED PAIN active Not Available Not Available No t Available Ventolin HFA 90 mcg/actua tion aerosol inhaler INHALE 2 PUFFS BY MOUTH EVERY 4 HOURS NEEDED FOR SHORTNES S OF BREATH active Not Available Not Available No t Available cyclobenz aprine 5 mg tablet TAKE 1 TABLET BY MOUTH 3 TIMES A DAY NEEDED FOR MUSCLE SPASM 09/16 completed Not Available Not Available Not Available Pain Relief Extra Strength (acetamin ophen) 500 mg tablet TAKE 2 TABLETS BY MOUTH EVERY 6 HOURS NEEDED FOR FEVER OR PAIN 09/16 completed Not Available Not Available Not Available FreeStyle Lite Strips 01/16 completed Medicati on ID: [id number] D uration Value: 17 Reason: () Brand Name: FreeStyl e Lite Strips S end Method: E-Prescr ibed Sub s Allowed: subs [place] Speci al Instruct ion: TEST BLOOD SUGAR THREE TIMES DAILY Me dication GenericN myra: FreeStyl e Lite Strips Not Available Not Available Not Available diclofena c 1 % topical gel USE 3 TIMES A DAY 09/16 completed Not Available Not Available Not Available blood pressure test kit-large cuff USE DIRECTED active Not Available Not Available No t Available Vitals Date Recorded Body height Body mass index (BMI) Body weight Provider Name and Address Organization Details Last Updated DateTime 09/16/2024 170.18 cm 27.9 kg/m2 09062.44 g Gail Hurt [place] - [facility] 09/16/2024 13:25:10 Social History None recorded. Functional Status None recorded. Mental Status None recorded. Family History Nothing Reported. Medical History No medical history recorded. Past Encounters Encounter ID Performer Location Encounter Start Date Encounter Closed Date Diagnosis/Indication Diagnosis SNOMED-CT Code Diagnosis ICD10 Code Diagnosis Note [id number] MAXWELL DALY PA-C [facility] [address] [address] 09/16/2024 13:13:53 09/16/2024 13:45:47 Nasal congestion 74501969 R09.81 Allergic rhinitis 116024 04 J30.89 Impacted c erumen of bilateral ears 0923590232 422905 H61.23 Health Concerns Section Related Observation LastModified by Organization Detai ls LastModified Time None Recorded Concern Status LastModified by Organization Details LastModified Time None Recorded Advance Directives Directive None Recorded Payers Encounter Date Sequence Insurance Name Policy Number Policy Ortiz Covered Member ID Ortiz Member ID Guarantor Name 09/16/2024 1 [facility] - DOS ON OR AFTER 2022 - MEDICARE ADVANTAGE [place] (MEDICARE REPLACEMENT/ADV ANTAGE - PPO) Bobby Velasco [id number] Bobby Velasco Notes Date Note Type Note Provider Name and Address Organization Details Recorded Time 09/16/2024 text/html 59-year-old male presents for reevaluation of chronic nasal congestion. Previously evaluated by Dr. Grace and thought to have allergic rhinitis. At the time the CT scan of the sinus and allergy testing were recommended but patient did not proceed. He continues to take Flonase daily but no antihistamine. Continues to have daily bilateral nasal congestion with clear nasal drainage. Occasionally has some pressure in his forehead but nothing terribly chronic. He does feel persistent blockage in his ears bilaterally. MAXWELL DALY PA-C [address] [place] [address], [place], [address], [facility] - [facility] 09/16/2024 13:49:51
--- OUTSIDE RECORDS SUMMARY | 2024-09-17 13:02 | XMS_ITS | Clinical Summary ---
Author Organization [address] [place] [address] Address [address] [place] [address] Phone Care Team Providers Care Senior Applications Analyst Name Role Phone Ashley Frankel MD Primary Care Provider [phone] Social History Tobacco Use Types Packs/Day Years Used Date Smoking Tobacco: Never Assessed Sex and Gender Information Value Date Recorded Sex Assigned at Not on file Gender Identity Not on file Sexual Orientation Not on file Plan of Treatment Upcoming Encounters Date Type Department Care Team ([facility] Contact Info) Description 11/06/2024 10:45 AM EDT Consult Orthopedic Surgery - [address] [address] Raheel Slater DPM [address] [address] Health Maintenance Due Date Last Done Comments Diabetes: Annual GFR (Glomer ular Filtration Rate) 1964 Pneumococcal Vaccine: Pediat rics (0 to 5 Years) and At-Risk Patients (6 to 64 Years) (1 of 2 - PCV) 1970 Diabetes: Annual Foot Exam 1974 Diabetes: Annual Retina Eye Exam 1974 DTaP,Tdap,and Td Vaccines (1 - Tdap) 1983 Zoster Vaccines (1 of 2) 2014 COVID-19 Vaccine ( - 2023-2 5 season) 2024 Influenza Vaccine (#1) 2024 Cholesterol Screening (Lipid Panel) 08/09/2024 Colorectal Cancer Screening: Colonoscopy 08/09/2024 Depression Screening 08/09/2024 Diabetes: Annual Urine Albumin-Creatinine Ratio (uACR) 08/09/2024 Diabetes: Blood Sugar Contro l Test (HGBA1C) 08/09/2024 HIV Screening 08/09/2024 Hepatitis C Screening 08/09/2024 Medicare Annual Wellness Visit 08/09/2024 Social Influencers of Health Screening 08/09/2024 RSV Immunization Patients 60 + Years Old (1 - 1-dose 75+ series) 2039 HIB Vaccines Aged Out No longer eligi ble based on patient's age to complete this topic HPV Vaccines Aged Out No longer eligi ble based on patient's age to complete this topic Hepatitis A Vaccines Aged Out No long er eligible based on patient's age to complete this topic Hepatitis B Vaccines Aged Out No long er eligible based on patient's age to complete this topic IPV Vaccines Aged Out No longer eligi ble based on patient's age to complete this topic MMR Vaccines Aged Out No longer eligi ble based on patient's age to complete this topic Meningococcal ACWY Vaccine Aged Out N o longer eligible based on patient's age to complete this topic RSV Immunization Patients Un sadie 20 months Aged Out No longer eligible b ased on patient's age to complete this topic Varicella Vaccines Aged Out No longer eligible based on patient's age to complete this topic Care Teams Senior Applications Analyst Relationship Specialty Start Date End Date [place], MD Ashley [address] [place] [address] PCP - General Family Medicine 08/09/24
--- OUTSIDE RECORDS SUMMARY | 2024-09-17 13:02 | XMS_ITS | Continuity of Care Document ---
Author Organization [place] - [facility], [facility] Address [address] [place] [address] Care Team Providers Care Forestry Workers Name Role Phone NAME, LINDSAY Primary Care Provider Assessment Encounter Date Assessment Date Assessment LastModified [...] follow-up after for review and further planning. [email or web address] Not available 09/16/2024 13:47:52 Plan of Treatment Reminders Order Date Submit Date Provider Last Modified By Organization Details Last Modified Time Details Appointments None recorded. Lab None recorded. Referral None recorded. Procedures allergy testing, skin prick (PROC) 2024 025 [email or web address] Not available 5 12:07:20 intraderma l allergy skin testing (PROC) 2024 025 [email or web address] Not available 5 12:07:20 pulmonary function test procedure (PROC) 2024 025 [email or web address] Not available 5 12:07:21 pulse oximetry (PROC) 2024 025 [email or web address] Not available 5 12:07:21 Surgeries None recorded. Imaging CT, maxillofac ial, w/o contrast 2024 025 [email or web address] Not available 5 11:49:13 Medication Orders None recorded. Patient TargetsNo targets recorded. Patient InstructionsNo instructions recorded. Reason for Referral None Reported. Problems Name Problem SNOMED Code Status Onset Date Resolution Date Notes Provider Name and Address Organization Details Recorded Time Allergic rhinitis 21512769 Active 2018 Perennial allergic rhinitis; Note: Date Diagnosed : 11/26/2018 12:00 PM (J30.89) Not Available [facility] 4 02:51:24 Deviated nasal septum 725530980 Active 2017 Deviated nasal septum; Note: Date Diagnosed : 05/09/2018 11:11 AM (J34.2) Not Available [facility] 4 02:51:18 Tinnitus of right ear 52460969773 08 Active 2017 Tinnitus, right ear; Note: Date Diagnosed : 01/16/2018 3:42 PM (H93.11) Not Available [facility] 4 02:51:19 Sensorine ural hearing loss of bilateral ears 624208922 Active 2017 Sensorine ural hearing loss, bilateral ; Note: Date Diagnosed : 01/16/2018 3:42 PM (H90.3) Not Available [facility] 4 02:51:21 Nasal congestio n 31196837 Active 2017 Nasal congestio n; Note: Date Diagnosed : 05/09/2018 11:11 AM (R09.81) Not Available [facility] 4 02:51:19 Dizziness and giddiness 098148040 Active 2017 Dizziness and giddiness ; Note: Date Diagnosed : 01/16/2018 3:42 PM (R42) Not Available [facility] 4 02:51:20 Headache 60528333 Active 2017 Headache; Note: Date Diagnosed : 05/09/2018 11:06 AM (R51) Not Available [facility] 4 02:51:20 Impacted cerumen of bilateral ears 26307085806 46275 Active 2024 MAXWELL DALY PA-C [address] [place] [address],[place] [address], [place], [address] , [facility] 5 13:48:02 Seasonal allergic rhinitis 281558132 Active 2024 MAXWELL DALY PA-C [address] [place] [address],[place] [address], [place], [address] , [facility] 5 13:48:08 Non-aller gic rhinitis 56019110723 1 Active 2024 MAXWELL DALY PA-C [address] [place] [address],[place] [address], [facility] [place], [address] , [facility] 5 13:48:08 Problem Notes None recorded. Procedures Surgical History Date Name Laterality Status Provider Name and Address Organization Details Recorded Time 5 Cerumen removal without microscope bilat completed MAXWELL DALY PA-C [address] [place] [address],[place] [address], [place], [address], [facility] 09/16/2024 13:46:50 Imaging Results None recorded. Procedure Notes None recorded. Medical Equipment None Reported. Allergies Allergen ID Allergen Name Allergen Category Reaction Reaction Severity Criticality Documentation Date Start Date Code Code System Note Provider Name and Address Organization Details Recorded Time 273959 amoxicill in medicatio n other Not available Not available 01/09/2024 723 RxNorm React ion: unkno wn, unspe cifie d;; Not Available [facility] 4 01:20:48 780413 Product containin g penicilli n and antibioti c (product) medicatio n other Not available Not available 01/09/2024 95398 05 SNOMED React ion: unkno wn, unspe cifie d;; Not Available [facility] 4 01:20:48 Medications Name Sig Start Date [...] mg tablet 01/16 completed Medicati on ID: [id number] D uration Value: 30 Reason: () Brand Name: atorvast atbabita Sen d Method: E-Prescr ibed Sub s Allowed: subs OK Speci al Instruct ion: TAKE ONE TABLET BY [...] mg tablet 09/16 completed Medicati on ID: [id number] D uration Value: 30 Brand Name: amlodipi [...] mg tablet 10/12 completed Medicati on ID: [id number] D uration Value: 30 Brand Name: carvedil [...] mg capsule 01/16 completed Medicati on ID: [id number] D uration Value: 30 Reason: () Brand [...] mg tablet 10/12 completed Medicati on ID: [id number] D uration Value: 10 Brand Name: Viagra [...] mg tablet 10/12 completed Medicati on ID: [id number] D uration Value: 5 Brand Name: levoflox acin Sen d Method: E-Prescr ibed Sub s Allowed: subs OK Radhai al Instruct ion: TAKE 1 TABLET BY [...] 24 hr 05/09 completed Medicati on ID: [id number] D uration Value: 30 Reason: () Brand [...] Lite Strips 01/16 completed Medicati on ID: [id number] D uration Value: 17 Reason: () Brand [...] Updated DateTime 09/16/2024 170.18 cm 27.9 kg/m2 87879.44 g Gail Hurt [place] - [facility] 09/16/2024 13:25:10 Social History None recorded. Functional Status None recorded. Mental Status None recorded. Family History Nothing Reported. Medical History No medical history recorded. Past Encounters Encounter ID Performer Location Encounter Start Date Encounter Closed Date Diagnosis/Indication Diagnosis SNOMED-CT Code Diagnosis ICD10 Code Diagnosis Note [id number] MAXWELL DALY PA-C [facility] [address] [address] 09/16/2024 13:13:53 09/16/2024 13:45:47 Nasal congestion 64951421 R09.81 Allergic rhinitis 254320 04 J30.89 Impacted c erumen of bilateral ears 6076966758 917913 H61.23 Health Concerns Section Related Observation LastModified by Organization Detai ls LastModified Time None Recorded Concern Status LastModified by Organization Details LastModified Time None Recorded Payers Encounter Date Sequence Insurance Name Policy Number Policy Ortiz Covered Member ID Ortiz Member ID Guarantor Name 09/16/2024 1 [facility] - DOS ON OR AFTER 2022 - MEDICARE ADVANTAGE [place] (MEDICARE REPLACEMENT/ADV ANTAGE - PPO) Bobby Velasco [id number] Bobby Velasco Notes Date Note Type Note [...] in his ears bilaterally. MAXWELL DALY PA-C [address] [place] [address], [place], [address], [facility] - [facility] 09/16/2024 13:49:51
== END 2024-09-17 11:55 | disposition home or self-care (01) ==
LOC: HO.HUSH 11:17
PROVIDERS: PCP Family Medicine; Visit Provider Urology
DX: N40.1 Benign prostatic hyperplasia with lower urinary tract symptoms (principal); N13.8 Other obstructive and reflux uropathy; R35.1 Nocturia
CPT/HCPCS: 99213

== ENCOUNTER → 2024-09-17 11:17 | Outpatient (BNVA) | payer OTHER, SELFPAY | PROVIDERS: PCP Family Medicine; Visit Provider Urology ==

== ENCOUNTER 2024-09-30 10:49 | Outpatient (REF) | payer OTHER, SELFPAY ==
--- NOTE | ~2024-09-30 | US_ITS ---
CLINICAL HISTORY: MICROSCOPIC HEMATURIA,BILATERAL LOW BACK PAIN US Renal Comparison: CT/SR - CT ABDOMEN PELVIS W CON - 12/27/21 16:08 EDT Findings: Right kidney at 11 cm with moderate to severe hydroureteronephrosis. 4 x 7 x 9 mm stone in the distal ureter. No appreciable intrarenal stones. Changes new from prior. Left kidney at 11.5 cm. 14 and 8 mm lower pole cysts. No apparent left nephrolithiasis or hydronephrosis. Prevoid bladder volume 100 and 50 mL. Bladder diverticula noted. Enlarged prostate with volume 43 mL. Postvoid bladder volume 8 mL. Impression: Moderate to severe right hydronephrosis with 9 mm stone distal right ureter. No additional stones evident on either side. Bladder volumes as above. Bladder diverticula noted. Enlarged prostate. This document has been electronically signed by: Jong Almendarez MD on 09/30/2024 13:13:14
--- OUTSIDE RECORDS SUMMARY | 2024-09-30 11:49 | XMS_ITS | Encounter Summary ---
Author Organization [employer] Address [address] [facility] [address] [place] [address] Care Team Providers Care Bridge Contractor Name Role Phone Ashley Frankel MD Primary Care Provider [phone] Viktor November Unavailable Kishore Dorsey MD Unavailable [phone] Raheel Gee Unavailable [phone] Riya Fulton Unavailable Sergio Hackett Unavailable Unavailable Dominga Silva PharmD Unavailable [phone] Reason for Visit * Reason Comments Constipation Encounter Details Date Type Department Care Team (Late st Contact Info) Description 09/28/2024 11:00 AM EST Office Visit [facility] [address] [place] [address] [phone] Name, MD Les [address] [place] [address] [phone] Constipation, unspecified constipation type (Primary Dx); Primary hypertension Social History Tobacco Use Types Packs/Day Years Used Date Smoking Tobacco: Former Cigarettes Smokeless Tobacco: Never Depression Answer Date Recorded Patient Health Questionnaire-9 Score 0 07/17/2024 Patient Health Questionnaire-9 Score 0 07/17/2024 Last PHQ-9: Questionnaire Data Not on file 1 09/16/2023 Housing Stability Answer Date Recorded What is your housing situation today? I have jo sing 11/02/[address] you li [...] the past 12 months, has t he [employer], gas, oil or water [employer] (formerly [employer]) threatened to shut off services in your home? No 06/11/2023 Depression Answer Date Recorded Patient Health Questionnaire-2 Score 0 07/17/2024 Sex and Gender Information Value Date Recorded Sex Assigned at Male 06/27/2022 10:18 AM EDT Legal Sex Male 10:18 AM EDT Gender Identity Male 06/27/2022 10:18 AM EDT Sexual Orientation Straight 06/27/2022 10 :18 AM EDT documented as of this encounter Last Filed Vital Signs Vital Sign Reading Time Taken Comments Blood Pressure 167/91 09/28/2024 10:29 AM EST Pulse 68 09/28/2024 10:29 AM EST Temperature 36.4 ??C (97.5 ??F) 09/28/2024 10:[address] Respiratory Rate 18 09/28/2024 10:29 AM EST Oxygen Saturation 97% 09/28/2024 10:29 AM EST Inhaled Oxygen Concentration - - Weight 79 kg (174 lb 3.2 oz) 09/28/2024 10:29 AM EST Height - - Body Mass Index 26.49 07/17/2024 9:35 AM EST documented in this encounter Progress Notes * Les Hay, - 09/28/2024 11:00 AM EST Subjective Patient ID: Bobby Velasco is a 59 y.o. male who presents for Constipation. Patient tells me he has 5 days of constipation No abdominal pain No nausea or vomiting He is up to date with his colonoscopy BP is high today but he has not used his meds Review of Systems Constitutional: Negative for chills, fatigue and fever. HENT: Negative for sore throat. Respiratory: Negative for cough, chest tightness and shortness of breath. Cardiovascular: Negative for chest pain, palpitations and leg swelling. Gastrointestinal: Positive for constipation. Negative for abdominal pain and blood in stool. Visit Vitals BP (!) 167/91 Pulse 68 Temp 97.5 ??F (36.4 ??C) (Temporal) Resp 18 Wt 174 lb 3.2 oz (79 kg) SpO2 97% BMI 26.49 kg/m?? Smoking Status Former BSA 1.95 m?? Objective Physical Exam Constitutional: General: He is not in acute distress. Appearance: He is not toxic-appearing. Cardiovascular: Rate and Rhythm: Normal rate and regular rhythm. Pulmonary: Effort: Pulmonary effort is normal. No respiratory distress. Abdominal: General: Abdomen is flat. Bowel sounds are normal. There is no distension. Palpations: There is no mass. Tenderness: There is no abdominal tenderness. There is no guarding. Assessment/Plan Diagnoses and all orders for this visit: Constipation, unspecified constipation type Comments: I recommended to drink more water, eat more vegetables, walk daily and course of Miralax Primary hypertension Comments: He is recommended to use his meds daily as prescribed Other orders - polyethylene glycol, PEG, 3350 (MiraLax) 17 GM/SCOOP powder; Take 17 g by mouth Once per day. 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 ([facility]) Dietary counseling Dietary surveillance and counseling Exercise counseling Overweight documented in this encounter Additional Health Concerns Assessment Noted Time PHQ-9 Depression Total Score: 0 07/17/20 10:33 AM EST documented as of this encounter Care Teams Bridge Contractor Relationship Specialty Start Date End Date Ashley Frankel MD [address] [place] [address] PCP - General Family Medicine 08/28/18November [address] [place] [address] Gastroenterology 07/17/24 Kishore Dorsey MD [address] [place] [address] Urology 07/17/24 Raheel Gee [address] [place], [place] [address] Pulmonary Disease 07/17/24 Riya Fulton [address] [address] Cardiology 07/17/24 Sergio Hackett [address] [place] [address] Orthopaedic Surgery 07/17/24 Dominga Silva, Mehrdad [address] [place] [address] Pharmacist Internal Medicine 07/22/24 documented as of this encounter
--- OUTSIDE RECORDS SUMMARY | 2024-09-30 11:49 | XMS_ITS | Clinical Summary ---
Author Organization [address] [place] [address] Address [address] [place] [address] Phone Care Team Providers Care Exhibits Coordinator Name Role Phone Ashley Frankel MD Primary Care Provider [phone] Social History Tobacco Use Types Packs/Day Years Used Date Smoking Tobacco: Never Assessed Sex and Gender Information Value Date Recorded Sex Assigned at Not on file Gender Identity Not on file Sexual Orientation Not on file Plan of Treatment Upcoming Encounters Date Type Department Care Team ([facility] Contact Info) Description 11/06/2024 10:45 AM EDT Consult Orthopedic Surgery - [address] [address] Raheel Slater DPM [address] [address] Health Maintenance Due Date Last Done Comments [...] age to complete this topic Care Teams Exhibits Coordinator Relationship Specialty Start Date End Date Brisbin, MD Ashley [address] [place] [address] PCP - General Family Medicine 08/09/24
--- OUTSIDE RECORDS SUMMARY | 2024-09-30 11:49 | XMS_ITS | Clinical Summary ---
Author Organization [employer] Address [address] [place] [address] 7 [place] [address] Care Team Providers Care Executive Administrative Assistant Name Role Phone Ashley Frankel MD Primary Care Provider [phone] November Unavailable Kishore Dorsey MD Unavailable [phone] Raheel Gee Unavailable [phone] Riya Fulton Unavailable Sergio Hackett Unavailable Unavailable Dominga Silva PharmD Unavailable Allergies Active Allergy Reactions Criticality Noted Date Comments Amoxicillin 08/01/2022 Clindamycin Anaphylaxis High 03/29/2012 Doxycycline Diarrhea Low 01/31/2023 Penicillins Anaphylaxis High 04/06/2012 Other reaction(s): UNKNOWN REACTION-CHILDHOOD Medications fluticasone (Flonase) 50 MCG/ACT nasal sprayIndication s:Allergic rhinitis, unspecified seasonality, unspecified trigger 2 SPRAY INTRANASALLY DAILY 16 g 3 04/27/20 23 Active albuterol 108 (90 Base) MCG/ACT inhalerIndicati ons:Mild intermittent asthma without complication INHALE 2 PUFFS BY MOUTH EVERY 4 HOURS NEEDED FOR SHORTNESS OF BREATH 18 g 1 04/03/20 24 Active tadalafil (Cialis) 10 MG tabletIndicatio ns:Erectile dysfunction, unspecified erectile dysfunction type 10 mg. 09/20/19 24 Active terazosin (Hytrin) 5 MG capsuleIndicati ons:Benign prostatic hyperplasia with lower urinary tract symptoms, symptom details unspecified 5 mg. 09/20/19 24 Active amLODIPine (Norvasc) 10 MG tabletIndicatio ns:Primary hypertension Take 1 tab po daily 90 tablet 3 07/17/20 24 Active chlorthalidone (Hygroton) 25 MG tabletIndicatio ns:Primary hypertension Take 1 tab po daily 90 tablet 3 07/17/20 24 Active lisinopril 40 MG tabletIndicatio ns:Primary hypertension Take 1 tab po daily 90 tablet 3 07/17/20 24 Active FreeStyle lancetsIndicati ons:Type 2 diabetes mellitus without complication, without long-term current use of insulin (CMS/HCC) 1 each by Other route 2 times daily. Use bid, dx type 2 diabetes 60 each 11 07/17/20 Active glucose blood (FREESTYLE LITE) test stripIndication s:Type 2 diabetes mellitus without complication, without long-term current use of insulin (CMS/HCC) USE TO TEST BLOOD SUGAR TWICE A DAY 100 strip 11 07/17/20 Active atorvastatin (Lipitor) 80 MG tablet Take 1 tablet (80 mg) by mouth Once per day. 90 tablet 3 07/17/20 24 2024 Active Blood Pressure kitIndications: Primary hypertension USE DIRECTED 1 kit 07/22/20 24 Active meclizine (Antivert) 25 MG tablet 07/19/20 24 Active hydrOXYzine HCl (Atarax) 25 MG tablet TAKE 1-2 TABLETS BY MOUTH TWICE A DAY NEEDED FOR ANXIETY OR AT NIGHT FOR SLEEP 07/31/20 24 Active traZODone (Desyrel) 50 MG tablet TAKE 1 TABLET BY MOUTH EVERY NIGHT AT BEDTIME NEEDED 1 TABLET NEEDED FOR SLEEP 07/31/20 24 Active cetirizine (ZyrTEC) 10 MG tabletIndicatio ns:Allergic rhinitis, unspecified seasonality, unspecified trigger TAKE 1 TABLET BY MOUTH EVERY DAY NEEDED 90 tablet 09/18/19 25 Active tamsulosin (Flomax) 0.4 MG 24 hr capsule Take 1 capsule (0.4 mg) by mouth Once per day. 30 capsule 09/27/19 25 Active traMADol (Ultram) 50 MG tabletIndicatio ns:Acute bilateral low back pain without sciatica Take 1 tablet (50 mg) by mouth if needed in the morning, at noon, and at bedtime for severe pain or moderate pain for up to 5 days. Take 1/2 to 1 tab po TID prn pain 15 tablet 09/27/19 25 2024 Active polyethylene glycol, PEG, 3350 (MiraLax) 17 GM/SCOOP powder Take 17 g by mouth Once per day. 527 g 2 09/28/19 25 2024 Active cetirizine (ZyrTEC) 10 MG tabletIndicatio ns:Allergic rhinitis, unspecified seasonality, unspecified trigger TAKE 1 TABLET BY MOUTH EVERY DAY NEEDED 90 tablet 06/21/20 24 2024 Discontinued Active Problems Patient Care Coordination No te Formatting of this note migh t be different from the original. [facility] Superintendent Overhead Distribution: Kamila, member services number [phone], provider services line, , option 4 [employer] Supervisor Agency: refused services Problem Noted Date Diagnosed Date Other microscopic hematuria 09/27/2024 Assessment & Plan (09/27/2024 11:31 AM EST): Associated to low back pain, rule out kidney stones. Order renal ultrasound, follow-up urine culture. Take tramadol 25 to 50 mg as needed pain plus Flomax nightly x 2 weeks. Patient advised to hold terazosin while he is taking Flomax and restart only if BP is higher than 160/90. Caution with sedation and constipation while taking tramadol. Follow-up after renal ultrasound or within 1 month. 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 New found mass on left holiness. - Referred to Plastic Surgery 07/16/24 Assessment & Plan (07/17/2024 10:23 AM EST): Removal 2021. New found mass on left holiness. - Referred to Plastic Surgery 07/16/24 Cardiac [...] hyperplasia with urinary obstru ction 04/27/2023 Overview (09/17/2024): -Followed by urology, Dr. Dorsey, seen 08/2024 Hard of hearing 04/27/2023 History of Clostridioides [...] due after 07/17/25 -eye care facilitated by [facility] -dental home is [facility] -health care proxy paperwork given 11/13/2023, given again 07/17/24 Assessment & Plan (07/17/2024 10:32 AM EST): -next physical exam due after 07/17/25 -eye care facilitated by [facility] -dental home is [facility] -health care proxy paperwork given 11/13/2023, given again 07/17/24 Assessment & Plan (11/13/2023 10:07 AM EDT): -next physical exam due after 04/27/2024 -eye care facilitated by [facility] -dental home is [facility] -health care proxy paperwork given 11/13/2023 Assessment & Plan (04/27/2023 9:45 AM EDT): -next physical exam due after 04/27/2024. -eye care facilitated by [facility], last visit 01/16/2023 -dental home is [facility] Class 1 obesity 02/24/2023 Lower abdominal pain [...] also showed diverticulosis and no other pathology ---NEETU today - Enrike to request records of last visit w [...] Erectile dysfunction 11/09/2022 GERD (gastroesophageal reflux disease) Colon cancer screening 11/09/2022 Overview (07/17/2024): Normal [...] the strong evidence that these meds prevent AL/CVA. Continue atorvastatin 80qhs. Encouraged to take. Anxiety [...] CT May 2021 -CT 01/24/24 ordered [address] finish patcher Dr[address] Raheel Gee MD, redemonstration of innumerable [...] getting tx for his neck. -Followed by [facility]. -Saw Dr. Evin Bhat at [facility] 02/2021 -referred to orthopedic on 11/13/2023 - [...] getting tx for his neck. -Followed by [facility]. -Saw Dr. Evin Bhat at [facility] 02/2021 -referred to orthopedic on 11/13/2023 - [...] getting tx for his neck. -Followed by [facility]. -Saw Dr. Evin Bhat at [facility] 02/2021 -referred to orthopedic on 11/13/2023 Assessment [...] getting tx for his neck. Followed by [facility]. Saw Dr. Evin Bhat at [facility] 02/2021 Assessment & Plan (04/27/2023 9:22 AM [...] getting tx for his neck. Followed by [facility]. Saw Dr. Evin Bhat at [facility] 02/2021 Assessment & Plan (11/07/2022 11:31 AM [...] getting tx for his neck. Followed by [facility]. Saw Dr. Evin Bhat at [facility] 02/2021 Mild intermittent asthma 10/14/2021 Overview (08/21/2024): -Followed by Dr. Raheel Gee at [facility]. Note from 08/19/24 reviewed -Well [...] Collaborative Drug Therapy Managment Program with our PharmD, YUE 07/17/24 - Ordered Labs 07/17/24 - Follow [...] Encounters Date Type Department Care Team Description 09/28/2024 11:00 AM EST Office Visit [facility] [address] [place] [address] [phone] Name, MD Les Constipation, unspecified constipation type (Primary Dx); Primary hypertension 09/28/2024 Travel 09/27/2024 11:00 AM EST Office Visit [facility] [address] [place], [place] [phone] Malika Mac MD Other microscopic hematuria (Primary Dx); Acute bilateral low back pain without sciatica 09/27/[address] [address] Ashley Frankel MD Nurse Triage 09/18/[address] [address] Nisha Smith MD Allergic rhinitis, unspecified seasonality, unspecified trigger 09/17/[address] [address] Ashley Frankel MD 09/09/2024 Orders Only [facility] External Provider, [facility] 08/26/[address] [address] Ashley Frankel MD 08/14/2024 Orders Only GENERIC EXTERNAL DATA DEPARTMENT Provider, Generic External Data Abnormal CXR (Primary Dx) 08/13/2024 Orders Only GENERIC EXTERNAL DATA DEPARTMENT Provider, Generic External Data 08/12/2024 Travel 08/09/2024 8:30 AM EST Office Visit [facility] [address] [place] [phone] Naida Yates, DDS Teeth missing (Primary Dx) 08/05/[address] [address] Kala [place], [place] September Recall 08/05/[address] [address] Ashley Frankel MD Appointment Request 08/01/2024 9:30 AM EST Office Visit [facility] [address] [place] [phone] CookWilianKimballNaida baeza, DDS Teeth missing (Primary Dx) 07/24/[address] [address] Ashley Frankel MD 07/22/2024 10:00 AM EST Office Visit [facility] [address] [place] [phone] Cook-Kimball, Naida, DDS Teeth missing (Primary Dx) 07/22/2024 Travel 07/19/2024 Orders Only GENERIC EXTERNAL DATA DEPARTMENT Provider, Generic External Data 07/18/[address] [address] Flor Marquez RN Results; Med Refill 07/17/2024 9:30 AM EST Office Visit [address] [phone] Ashley Frankel MD Type 2 diabetes mellitus without complication, without long-term current use of insulin ([facility]) (Primary Dx); Dyslipidemia; Dietary counseling; Exercise counseling; Overweight; Cardiac risk counseling; Anxiety; Other specified health status; Primary hypertension; Mild intermittent asthma without complication; DISH (diffuse idiopathic skeletal hyperostosis); Colon cancer screening; Basal cell carcinoma (BCC), unspecified site; Epidermoid cyst; Enlarged and hypertrophic nails 07/17/2024 Orders Only [address] [address] Ashley Frankel MD Cardiac risk counseling (Primary Dx); Dyslipidemia 07/17/[address] [address] Ashley Frankel MD Type 2 diabetes mellitus without complication, without long-term current use of insulin ([facility]) 07/17/2024 Travel from Last 3 Months Immunizations Name [...] 3.2 oz) 09/28/2024 10:29 AM EST Height 172.7 cm (5' 8 ) 07/17/2024 9:35 AM EST Body Mass Index 26.49 07/17/2024 9:35 AM EST Plan of Treatment Upcoming Encounters Date Type Department Care Team (Late st Contact Info) Description 10/24/2024 9:15 AM EST Office Visit [facility] [address] [place] [address] Ashley Frankel MD [address] [place] [address] 12/09/2024 8:00 AM EDT Office Visit [facility] [address] [place], [place] [phone] Jackie Peacock Health Maintenance Due Date Last Done Comments CT Colonography 1965 Dental X-Ray: Full Mouth 1965 FIT DNA/Cologuard 1965 FIT 1965 FOBT 1965 Sigmoidoscopy 1965 Derm Melanoma Skin Check 02/17/1965 Zoster Vaccines (1 of 2) 2014 Pneumococcal Vaccine: 50+ Years (2 of 2 - PCV) 05/14/2016 05/14/2015, 06/30/2006 RSV Patients and Patients Aged 60 years or older (1 - Risk 60-74 years 1-dose series) 2024 Dental Oral Exam 11/01/2024 05/03/2024, 10/24/2022 Dental Prophylaxis 11/01/2024 05/03/2024, 01/30/2023 SDOH Screening 11/01/2024 11/02/2023 Diabetes: Hemoglobin A1C 02/11/2025 024, 07/17/2024, 07/17/2024, Additional history exists Influenza Vaccine (#1) 2025 9, 05/18/2018, 05/31/2017, Additional history exists Postponed from 04/28/2024 (Patient Refused) Dental X-Ray: Bitewings 05/04/2025 05/03/2024, 10/24 Eye Exam 06/19/2025 06/19/2024, 05/29, 06/19/2024, Additional history exists Alcohol/Substance Use Screening 07/17/2025 07/17/2024 COVID-19 Vaccine ( season) 2025 Postponed from 04/28/2024 (Patient Refused) Depression Screening 07/17/2025 07/17/2024, 07/17/20 24 Diabetes: Foot Exam 07/17/2025 07/17/2024, 07/17/2024, 07/17/2024, Additional history exists Diabetes: Urine Protein Screening 08/13/2025 08/13/2024, 07/17/2024, [...] Procedure Name Priority Date/Time Associated Diagnosis Comments POCT URINALYSIS DIPSTICK Routine 09/27/2024 11:46 AM EST Other microscopic hematuria HIGH SENSITIVITY TROPONIN I Routine 09/09/2024 2:44 PM EST LIPASE Routine 09/09/2024 11:02 AM EST MAGNESIUM Routine 09/09/2024 11:02 AM EST BASIC METABOLIC PANEL Routine 09/09/2024 11:02 AM EST HEPATIC FUNCTION PANEL Routine 11:02 AM EST CBC WITH AUTO DIFFERENTIAL [...] of insulin (CMS/HCC) HEPATIC FUNCTION PANEL Routine 11:26 AM EST Type 2 diabetes mellitus [...] of insulin (CMS/HCC) HEPATIC FUNCTION PANEL Routine 10:47 AM EST Type 2 diabetes mellitus without complication, without long-term current use of insulin (CMS/HCC) POCT GLYCATED HEMOGLOBIN, TOTAL Routine 07/17/2024 9:58 AM EST Type 2 diabetes mellitus without complication, without long-term current use of insulin (CMS/HCC) POCT GLUCOSE Routine 07/17/2024 9:58 AM EST Type 2 diabetes mellitus without complication, without long-term current use of insulin (CMS/HCC) PROPHYLAXIS - ADULT Routine 05/03/2024 1 [...] Recently Relevant to Health Maintenance Results * (ABNORMAL) POCT urinalysis dipstick manually resulted (09/27/2024 11:46 AM EST) Color, UA Yellow Clarity, UA Clear Glucose, UA Negative Bilirubin, UA Negative Ketones, UA Positive Comment:40 mg/dL Spec Grav, UA 1.020 Blood, UA Positive(A) Negative, None Detected Comment:Trace- lysed pH, UA 6.0 Protein, UA Many Comment:100 mg/dL Urobilinogen, UA 1.0 Leukocytes, UA Negative Negative, Rare, Trace Nitrite, UA Negative Negative, None Detected Urine 09/27/2024 11:4 6 AM EST us Malika Mac MD POINT OF CARE TEST ENTER /EDIT ORDERABLES Final Result * High Sensitivity Troponin I (09/09/2024 2:44 PM EST) Only the most recent of4 resultswithin the time period is included. TROPONIN I HIGH SENSITIVITY 5.2 <3.5 - 35.0 ng/L [facility] Comment:The Schmidt high sens itivity Troponin-I results should beused in conjunction with other diagnostic information suchas ECG, clinical observations and information, and patientsymptoms to aid in the diagnosis of AL. 09/09/2024 2:44 PM EST 09/09/2024 2:53 PM EST us Generic External Data Provider LAB BLOOD ORDERAB LES Final Result [facility] [address] [place] [phone] * (ABNORMAL) CBC auto differential (09/09/2024 11:02 AM EST) Only the most recent of3 resultswithin the time period is included. White Blood Count 3.7(L) 4.8 - 10.8 X10*3/uL [facility] Red Blood Count 4.60 4.60 - 5.80 X10*6/uL [facility] Hemoglobin 13.8(L) 14.0 - 18.0 g/dl [facility] Hematocrit 41.4(L) 42.0 - 52.0 % [facility] Mean Corpuscular Volume 90.0 80.0 - 98.0 fL [facility] Mean Corpuscular Hemoglobin 30.0 27.0 - 33.0 pg [facility] Mean Corpuscular HGB Conc 33.3 31.0 - 36.0 g/dl [facility] Red Cell Distribution Width 13.2 11.0 - 16.0 % [facility] Platelet Count 208 160 - 400 X10*3/uL [facility] Mean Platelet Volume 10.4 9.4 - 12.4 fL [facility] Neutrophils Percent Auto 53.8 45 - 73 % [facility] Imm Gran Pct Auto 0.3 0.0 - 0.4 % [facility] Lymphocytes Percent Auto 32.4 20 - 40 % [facility] Monocytes Percent Auto 10.3 2 - 11 % [facility] Eosinophils Percent Auto 2.4 0 - 4 % [facility] Basophils Percent Auto 0.8 0 - 2 % [facility] NRBC Pct Auto 0.0 0.0 - 0.2 /100WBC [facility] Neutrophils Absolute Auto 2.0 2.0 - 8.3 x10*3/uL [facility] Imm Gran Abs Auto 0.01 0.00 - 0.03 X10*3/uL [facility] Lymphocytes Absolute Auto 1.2 1.2 - 4.9 X10*3/uL [facility] Monocytes Absolute Auto 0.4 0.1 - 1.2 X10*3/uL [facility] Eosinophils Absolute Auto 0.1 0.0 - 0.4 X10*3/uL [facility] Basophils Absolute Auto 0.0 0.0 - 0.2 X10*3/uL [facility] NRBC Abs Auto 0.000 0.0 - 0.012 X10*3/uL [facility] 09/09/2024 11:0 2 AM EST 09/09/2024 11:06 AM EST us Generic External Data Provider LAB BLOOD ORDERAB LES Final Result Performing Organization Address [facility] Co de Phone Number [facility] [address] [place] [phone] * Magnesium (09/09/2024 11:02 AM EST) Only the most recent of2 resultswithin the time period is included. Magnesium 2.0 1.6 - 2.6 mg/dL [facility] 09/09/2024 11:0 2 AM EST 09/09/2024 11:06 AM EST Generic External Data Provider LAB BLOOD ORDERAB LES Final Result Performing Organization Address [facility] Co de Phone Number [facility] [address] [place] [phone] * Lipase (09/09/2024 11:02 AM EST) Only the most recent of3 resultswithin the time period is included. Lipase 28 8 - 78 U/L [facility] 09/09/2024 11:0 2 AM EST 09/09/2024 11:06 AM EST us Generic External Data Provider LAB BLOOD ORDERAB LES Final Result Performing Organization Address [facility] Co de Phone Number [facility] [address] [place] [phone] * Hepatic Function Panel (09/09/2024 11:02 AM EST) Only the most recent of3 resultswithin the time period is included. Bilirubin, Total 0.9 0.0 - 1.0 mg/dL [facility] Bilirubin, Direct 0.3 0.0 - 0.5 mg/dL [facility] Aspartate Amino Transferase 29 5 - 37 U/L [facility] Alanine Aminotransferase 23 0 - 40 U/L [facility] Total Protein 6.9 6.5 - 8.0 g/dL [facility] Albumin Level 4.1 3.5 - 5.0 g/dL [facility] Alkaline Phosphatase 100 39 - 117 U/L [facility] 09/09/2024 11:0 2 AM EST 09/09/2024 11:06 AM EST us Generic External Data Provider LAB BLOOD ORDERAB LES Final Result Performing Organization Address City/State/[facility] Co de Phone Number [facility] [address] [place] [phone] * (ABNORMAL) Basic Metabolic Panel (09/09/2024 11:02 AM EST) Only the most recent of3 resultswithin the time period is included. Pathologist [facility] Sodium 142 135 - 145 mmol/L [facility] Potassium 3.7 3.3 - 5.1 mmol/L [facility] Chloride 108 96 - 108 mmol/L [facility] Carbon Dioxide 29 22 - 29 mmol/L [facility] Anion Gap 9(L) 12 - 20 [facility] Urea Nitrogen (BUN) 13 9 - 16 mg/dL [facility] Creatinine, Serum 1.00 0.5 - 1.4 mg/dL [facility] Creatinine Clr Calc Pharmacy 81.3 [facility] Comment:eGFR (calculated fro m the MDRD study equation) and eCrCl(calculated from the Cockcroft-Gault equation) are based ondifferent parameters and may not yield comparable results.If eCrCl result is absurd, please check patient'sheight/weight. Estimated Glomerular Filt Rate >60 [facility] Comment:Chronic Kidney Disea se: Estimated GFR < 60 mL/min/1.93o0Gnirly Kidney Disease: Estimated GFR < 15 mL/min/1.73m2 Glucose 147(H) 60 - 115 mg/dL [facility] Calcium 9.2 8.4 - 10.2 mg/dL [facility] 09/09/2024 11:0 2 AM EST 09/09/2024 11:06 AM EST Generic External Data Provider LAB BLOOD ORDERAB LES Final Result Performing Organization Address [facility]/ZIP Co de Phone Number [facility] [address] [place] [phone] * SARS-CoV-2 RNA, Influenza A/B, and RSV RNA, Ql NAAT (09/09/2024 11:01 AM EST) Influenza A PCR NEGATIVE Negative [facility] Influenza B PCR NEGATIVE Negative [facility] Resp Syncy Virus RNA Qual PCR NEGATIVE Negative [facility] SARS COV2 PCR NEGATIVE Negative [facility] Comment:All test results mus t [...] use by authorized laboratories.Testing performed on the Diana GeneXpert utilizingreal-time RT-PCR.All SARS CoV2 and positive influenza A/B results arereported to [facility]. 09/09/2024 11:0 1 AM EST 09/09/2024 11:06 AM EST us Generic External Data Provider LAB MICROBIOLOGY - GENERAL ORDERABLES Final Result Performing Organization Address City/[facility]/ZIP Co de Phone Number [facility] [address] [place] [phone] * XR Chest 2 Views (09/09/2024 10:34 AM EST) Anatomical Region Laterality Modality Chest Radiographic Hannah ging 09/09/2024 10:3 4 AM EST Narrative 09/09/2024 11:06 AM EST ? [facility] ?[address] ?[place] [address] ?XRay Report ? Signed ? Patient: Krista,Bobby ?MR#: [id number] ? : 1965 ?Acct:[id number] ? Age/Sex: 59 / M ?ADM Date: 09/09/24 ? Loc: HO.ED ? Attending Dr: ? Ordering Physician: Deandra Reynolds DO ?? Date of Service: 09/09/24 ?? Procedure(s): XR chest 2V ?? Accession Number(s): [id number] ? cc: Ashley Frankel MD; Deandra Reynolds [...] DD/ 1034 ? TD/TT: 09/09/24 1045 ? Substation Mechanic: ? Procedure Note Cesar Justice - 09/09/2024 [facility] [address] [place] [address] XRay Report Signed Patient: Pierce Velasco#: [id number] : 1965Acct:[id number] Age/Sex: 59 / MADM Date: 09/09/24 Loc: HO.ED Attending Dr: Ordering Physician: Deandra Reynolds DO Date of Service: 09/09/24 Procedure(s): XR chest 2V Accession Number(s): [id number] cc: Ashley Frankel MD; Deandra Reynolds DO [...] 09/09/24 1103 DD/ 1034 TD/TT: 09/09/24 1045 Substation Mechanic: [facility] External Provider IMG XR PROCEDURES Edited Result - Final * XR Chest 1 View (08/14/2024 9:48 PM EST) Anatomical Region Laterality Modality Chest Radiographic Hannah ging 08/14/2024 9:48 PM EST Narrative 08/15/2024 1:43 AM EST ? [facility] ?[address] ?[place] [address] ?XRay Report ? Signed ? Patient: Krista,Bobby ?MR#: [id number] ? : 1965 ?Acct:[id number] ? Age/Sex: 58 / M ?ADM Date: 12/18/24 ? Loc: HO.ED ? Attending Dr: ? Ordering Physician: Toñito Hsieh MD ?? Date of Service: 08/14/24 ?? Procedure(s): XR chest 1V ?? Accession Number(s): [id number] ? cc: Ashley Frankel MD; Toñito Hsieh [...] MD in OV> ?08/15/24 0140 ? DD/ 47 ? TD/TT: 08/14/242203 ? Substation Mechanic: ? Procedure Note Cesar Justice - 08/15/2024 [place] [address] XRay Report Signed Patient: Pierce Velasco#: [id number] : 1965Acct:[id number] Age/Sex: 58 / MADM Date: 08/14/24 Loc: HO.ED Attending Dr: Ordering Physician: Toñito Hsieh MD Date of Service: 08/14/24 Procedure(s): XR chest 1V Accession Number(s): [id number] cc: Ashley Frankel MD; Toñito Hsieh MD [...] OV> 08/15/24 0140 DD/ 47 TD/TT: 08/14/242203 Substation Mechanic: [facility] External Provider IMG XR PROCEDURES Edited Result - Final * (ABNORMAL) Urinalysis, Complete, with Reflex to Culture (08/14/2024 9:12 PM EST) Only the most recent of2 resultswithin the time period is included. Color Urine Dark Yellow [facility] [facility] Appearance Urine Clear [facility] PH 5.5 5.0 - 9.0 [facility] Glucose Urine UA Negative Negative mg/dL [facility] Urine Blood Trace(A) Negative [facility] Specific [place] - Urine 1.025 1.005 - 1.025 [facility] Urine Protein Trace Neg-Trace mg/dL [facility] Urine Ketones 15 Negative mg/dL [facility] Nitrite Urine Negative Negative [facility] Leukocyte Esterase Urine Negative Negative [facility] RBC Urine 6-10(A) 0 - 2 /HPF [facility] Urine WBC 0-5 0 - 5 /HPF [facility] Urine Squamous Epithelial Cell 0-2 0 - 2 /HPF [facility] Urine Bacteria None Seen None Seen [facility] Hyaline Casts, Urine 0-2 0 - 2 /LPF [facility] 08/14/2024 9:12 PM EST 08/14/2024 9:16 PM EST Narrative [facility] - 08/14/2024 9:31 PM EST Urine, Clean Catch us Generic External Data Provider LAB URINE ORDERAB LES Final Result [facility] [address] [place] [address] [phone] * (ABNORMAL) Comprehensive Metabolic Panel (08/14/2024 8:34 PM EST) Only the most recent of2 resultswithin the time period is included. Sodium 139 135 - 145 mmol/L [facility] Potassium 3.6 3.3 - 5.1 mmol/L [facility] Chloride 105 96 - 108 mmol/L [facility] Carbon Dioxide 27 22 - 29 mmol/L [facility] Anion Gap 11(L) 12 - 20 [facility] Urea Nitrogen (BUN) 14 9 - 16 mg/dL [facility] Creatinine, Serum 1.08 0.5 - 1.4 mg/dL [facility] Creatinine Clr Calc Pharmacy 74.6 [facility] Comment:eGFR (calculated fro m the MDRD study equation) and eCrCl(calculated from the Cockcroft-Gault equation) are based ondifferent parameters and may not yield comparable results.If eCrCl result is absurd, please check patient'sheight/weight. Estimated Glomerular Filt Rate >60 [facility] Comment:Chronic Kidney Disea se: Estimated GFR < 60 mL/min/1.27e9Klsyvf Kidney Disease: Estimated GFR < 15 mL/min/1.73m2 Glucose 244(H) 60 - 115 mg/dL [facility] Calcium 9.6 8.4 - 10.2 mg/dL [facility] Bilirubin, Total 0.5 0.0 - 1.0 mg/dL [facility] Aspartate Amino Transferase 25 5 - 37 U/L [facility] Alanine Aminotransferase 20 0 - 40 U/L [facility] Total Protein 7.5 6.5 - 8.0 g/dL [facility] Albumin Level 3.8 3.5 - 5.0 g/dL [facility] Alkaline Phosphatase 83 39 - 117 U/L [facility] 08/14/2024 8:34 PM EST 08/14/2024 8:36 PM EST us Generic External Data Provider LAB BLOOD ORDERAB LES Final Result Performing Organization Address [facility] Co de Phone Number [facility] [address] [place] [address] [phone] * Albumin, Random Urine W/Creatinine (08/13/2024 11:26 AM EST) Only the most recent of2 resultswithin the time period is included. Creatinine, Urine 73.67 mg/dL [facility] Microalbumin Urine 13.0 mg/L [facility] Microalbum Creatinine Ratio Ur 17.6 <30 ug/mg cr [facility] Comment:Albumin/Creatinine R atio Reference Ranges: Normal: < 30 ug/mg creatinine Microalbuminuria: 30 - 300 ug/mg creatinineClinical Albuminuria: > 300 ug/mg creatinine Urine 08/13/2024 11:2 6 AM EST 08/13/2024 1:00 PM EST Ashley Frankel MD LAB URINE ORDERABLES Final Result Performing Organization Address [facility] Co de Phone Number [facility] [address] [place] [phone] * Testosterone, Total, males (Adult), [place] (08/13/2024 11:26 AM EST) Testosterone, Total 317 250 - 1100 ng/dL [facility] Comment:For additional infor mation, please refer tohttp://education.SeniorLiving.Net.ConferenceEdge/faq/CkpgtPuwecxdokwqxDPPSMLUVF515(This link is being provided for informational/educational purposes only.)This test was developed and its analytical performancecharacteristics have been determined by [employer] [place], [place]. It hasnot been cleared or approved by the U.S. Food and DrugAdministration. This assay has been validated pursuantto the CLIA regulations and is used for clinicalpurposes.THIS TEST WAS PERFORMED AT:[id number] [place] [address]XQNZGLVDANIELLE BOLTON MD,PHD 08/13/2024 11:2 6 AM EST 08/13/2024 12:59 PM EST Generic External Data Provider LAB BLOOD ORDERAB LES Final Result Performing Organization Address City/[facility] Co de Phone Number [facility] [address] [place] [phone] * PSA,Total (08/13/2024 11:26 AM EST) Prostate Specific Antigen 0.69 <0.05 - 4.0 ng/mL [facility] Comment:PSA methodology: Abb sukhwinder Alimlty i ChemiluminescentMicroparticle Immunoassay (CMIA) 08/13/2024 11:2 6 AM EST 08/13/2024 12:59 PM EST Generic External Data Provider LAB BLOOD ORDERAB LES Final Result Performing Organization Address [facility] de Phone Number [facility] [address] [place] [phone] * (ABNORMAL) Hemoglobin A1c (08/13/2024 11:26 AM EST) Only the most recent of2 resultswithin the time period is included. Hemoglobin A1c 6.2(H) <6.0 % [facility] Comment:Hemoglobin A1C Refer ence Range Adults: 4.8 - 6.0 % Non diabetic: < 6.0 % Goal: < 7.0 %Additional Action Suggested: > 8.0 %Note: Hemoglobin A1c results are invalid for patients with abnormal amounts of HbF. Blood transfusions may impact the HbA1c concentration in the patient sample. Estimated Average Glucose 131 mg/dL [facility] Comment:eAG = Estimated ave rage glucose which is %A1C expressed asaverage glucose, using the formula of the W9L-RqixudnPdhbyzu Glucose study (ADAG), Diabetes Care, Vol.31,#8,2007 Blood Venous blood specimen / Unknown 08/13/2024 11:26 AM EST 08/13/2024 12:59 PM EST Ashley Frankel MD LAB BLOOD ORDERABLES Final Result Performing Organization Address City/[facility]/ZIP Co de Phone Number [facility] [address] [place] [phone] * (ABNORMAL) Lipid Panel, Standard (08/13/2024 11:26 AM EST) Only the most recent of2 resultswithin the time period is included. Triglycerides 86 <150 mg/dL [facility] Comment:Desirable Triglyceri de: less than 150 mg/dLBorderline High Triglyceride 150-199 mg/dLHigh Triglyceride: 200-499 mg/dLVery High Triglyceride: greater than or equal to 5OO mg/dL Cholesterol 146 <200 mg/dL [facility] Comment:Desirable Cholestero l: less than 200 mg/dLBorderline High Cholesterol: 200-239 mg/dLHigh Cholesterol: greater than 239 mg/dL LDL Cholesterol Calculated 96 <100 mg/dL [facility] Comment:Desirable LDL: less than 100 mg/dLNear Optimal/Above Optimal LDL: 110- 129 mg/dLBorderline High LDL: 130-159 mg/dLHigh LDL: 160-189 mg/dLVery High LDL: greater than or equal to 190 mg/dL HDL Cholesterol 33(L) >40 mg/dL [facility] Comment:Desirable HDL: great er than 40 mg/dL Note: This HDL assay may give artificially low results in patients with liver disease. Blood Venous blood specimen / Unknown 08/13/2024 11:26 AM EST 08/13/2024 12:59 PM EST us Ashley Frankel MD LAB BLOOD ORDERABLES Final Result Performing Organization Address City/[facility]/ZIP Co de Phone Number [facility] [address] [place] [phone] * CT Head w/o Contrast (07/19/2024 12:28 PM EST) Anatomical Region Laterality Modality Head, Neck Computed Tomogra phy 07/19/2024 12:2 8 PM EST Narrative 07/19/2024 2:58 PM EST ? [facility] ?[address] ?[place] [address] ? CT Scan Report ? Signed ? Patient: Krista,Bobby ?MR#: [id number] ? : 1965 ?Acct:[id number] ? Age/Sex: 58 / M ?ADM Date: 07/19/24 ? Loc: HO.ED ? Attending Dr: ? Ordering Physician: Bob Hastings ?? Date of Service: 07/19/24 ?? Procedure(s): CT head/brain wo IV con ?? Accession Number(s): [id number] ? cc: Ashley Frankel MD; Bob Hastings [...] Mendoza MD ??07/19/2024 02:54 PM ?? EST ? Dictated By: ?Damian Mendoza MD ? Signed By: ?<Electronically signed by Damian Mendoza MD in OV> ? 07/19/24 1454 ? DD/ 1228 ? TD/TT: 07/19/24 1235 ? Substation Mechanic: DM ? Procedure Note Donotjurgeninterpreter, Image - 07/19/[address] [place] [address] [address] Scan Report Signed Patient: Pierce Velasco#: [id number] : 1965Acct:[id number] Age/Sex: 58 / MADM Date: 07/19/24 Loc: HO.ED Attending Dr: Ordering Physician: Bob Hastings Date of Service: 07/19/24 Procedure(s): CT head/brain wo IV con Accession Number(s): [id number] cc: Ashley Frankel MD; Bob Hastings EXAMINATION: [...] 07/19/24 1454 DD/ 1228 TD/TT: 07/19/24 1235 Substation Mechanic: DM [facility] External Provider IMG CT PROCEDURES Final Result * Prothrombin Time-INR (07/19/2024 12:14 PM EST) Prothrombin Time 11.3 10.9 - 12.4 SEC [facility] INTERNATIONAL NORM RATIO 1.0 0.9 - 1.1 [facility] Comment:INTERNATIONAL NORMAL IZED RATIO (INR) REFERENCE [...] Provider LAB BLOOD ORDERAB LES Final Result [facility] [address] [place] [phone] * (ABNORMAL) POCT HGB A1C (07/17/2024 9:58 AM EST) Hemoglobin A1C 6.3(A) 4.0 - 6.0 % QC Media Lot # [id number] Lot# Expiration Date Blood 07/17/2024 9:58 AM EST Ashley Frankel MD POINT OF CARE TEST ENTER/E DIT ORDERABLES Final Result * POCT Glucose (07/17/2024 9:58 AM EST) Glucose Blood, POC 153 60 - 200 mg/dL Comment:Random QC Media Lot # [id number] Lot# Expiration Date 385 Blood Capillary blood specimen / Unknown 07/17/2024 9:58 AM EST Ashley rFankel MD POINT OF CARE TEST ENTER/E DIT ORDERABLES Final Result * Hm Colonoscopy (04/06/2023) Colonoscopy Normal Normal Moncho Bishop MD HEALTH MAINTENANCE Final Result * Hepatitis C Antibody with Reflex to HCV, RNA, Quantitative, Real-Time PCR (11/11/2022 8:59 AM EDT) Hepatitis C Antibody NON-REACT KELSY NON-REACT KELSY Recorded [facility] [place] [employer] Index 0.64 <1.00 Recorded [facility] [place] [employer] Comment: HCV antibody was non-reactive. There is no laboratory evidence of HCV infection. In most cases, no further action is required. However, if recent HCV exposure is suspected, a test for HCV RNA (test code 82116) is suggested. For additional information please refer to http://education.SeniorLiving.Net.ConferenceEdge/faq/MMU13t2 (This link is being provided for informational/ educational purposes only.) Blood Venous blood specimen / Unknown 11/11/2022 8:59 AM EDT 11/11/2022 8:59 AM EDT Narrative [facility] - 11/11/2022 9:36 PM EDT FASTING:YES FASTING: YES Ashley Frankel MD LAB BLOOD ORDERABLES Final Result [address], [place] [address] Recorded Future [facility] [address] [place] [phone] * HIV 1/2 ANTIGEN/ANTIBODY,FOURTH GENERATION W/RFL (02/13/2020 8:50 AM EDT) HIV-1/2 ANTIGEN AND ANTIBODIES, 4TH GENERATION W/ REFLEX NON-REACT KELSY NON-REACT KELSY [facility] Comment: HIV-1 antigen and HIV-1/HIV-2 [...] ? For additional information please refer to http://education.Veebeam/faq/NSO605 (This link is being provided for informational/ educational purposes only.) ? The performance of this assay has not been clinically validated in patients less than 2 years old. ?? 02/13/2020 8:50 AM EDT us Ashley Frankel MD LAB BLOOD ORDERABLES Final Result [facility] [address] from Last 3 Months or Most Recently Relevant to Health Maintenance [place] [address] [place] [address] - [facility] Care Teams Executive Administrative Assistant Relationship Specialty Start Date End Date Clio, MD Ashley [address] [place] [address] PCP - General Family Medicine 08/28/18 Viktor Sonya [address]rd [place] [address] Gastroenterology 07/17/24 Kishore Dorsey MD [address] [place] [address] Urology 07/17/24 Raheel Gee 5 [place], [place] 1040 Pulmonary Disease 07/17/24 Riya Fulton [address] 3rd [place] [address] Cardiology 07/17/24 Sergio Hackett [address] [facility] [address] [place] [address] Orthopaedic Surgery 07/17/24 Dominga Silva, Mehrdad [address] [place] [address] Pharmacist Internal Medicine 07/22/24
--- OUTSIDE RECORDS SUMMARY | 2024-09-30 11:49 | XMS_ITS | Encounter Summary ---
Author Organization [employer] Address [address] [facility] 7t [place] [address] Care Team Providers Care Cloth Shrinking Tester Name Role Phone Ashley Frankel MD Primary Care Provider [phone] Viktor November Unavailable Kishore Dorsey MD Unavailable [phone] Raheel Gee Unavailable [phone] Riya Fulton Unavailable Sergio Hackett Unavailable Unavailable Dominga Silva PharmD Unavailable Encounter Details Date Type Department Care Team (Late st Contact Info) Description 09/17/2024 Telephone [facility] [address] [place], [place] [phone] Ashley Frankel MD 230 [place], [place] [phone] Social History Tobacco Use Types Packs/Day Years [...] Description 10/24/2024 9:15 AM EST Office Visit [facility] [address] [place] [address] Ashley Frankel MD [address] [place] [address] 12/09/2024 8:00 AM EDT Office Visit [facility] [address] [place] [address] Jackie Peacock documented as of this encounter Visit Diagnoses Not on filedocumented in this encounter Additional Health Concerns Assessment Noted Time PHQ-9 Depression Total Score: 0 07/17/20 24 10:33 AM EST documented as of this encounter Care Teams Cloth Shrinking Tester Relationship Specialty Start Date End Date Ashley Frankel MD [address] [place] [phone] PCP - General Family Medicine 08/28/18HoangNovember [address] 3rd [place] [address] Gastroenterology 07/17/24 Kishore Dorsey MD [address] [place] [address] Urology 07/17/24 Raheel Gee 5 [place], [place] 1040 Pulmonary Disease 07/17/24 Riya Fulton [address] 3rd [place] [address] Cardiology 07/17/24 Sergio Hackett 300 [facility] 2nd [place] [address] Orthopaedic Surgery 07/17/24 Dominga Silva, AnanthD 230 [place] [address] Pharmacist Internal Medicine 07/22/24 documented as of this encounter
--- OUTSIDE RECORDS SUMMARY | 2024-09-30 11:49 | XMS_ITS | Encounter Summary ---
Author Organization [employer] Address [address] [facility] 7t [place] [address] Care Team Providers Care Early Childhood Education Instructor Name Role Phone Ashley Frankel MD Primary Care Provider [phone] Hoang, November Unavailable Kishore Dorsey MD Unavailable Raheel Gee Unavailable [phone] Riya Fulton Unavailable Sergio Hackett Unavailable Unavailable Dominga Silva PharmD Unavailable Encounter Details Date Type Department Care Team (Late st Contact Info) Description 07/18/2023 Telephone [facility] [address] [place], [place] [phone] Ashley Frankel MD [address] [place], [place] [phone] Social History Tobacco Use Types Packs/Day Years [...] Bia Rose - 08/10/2023 1:42 PM EST Sap Bw Consultant called pt to request verification of insurance/Medicare [...] Description 10/24/2024 9:15 AM EST Office Visit [facility] [address] [place] [address] Ashley Frankel MD [address] [place] [address] 12/09/2024 8:00 AM EDT Office Visit [facility] ADULT [facility] 230 [place] [address] Jackie Peacock documented as of this encounter Visit Diagnoses Not on filedocumented in this encounter Care Teams Early Childhood Education Instructor Relationship Specialty Start Date End Date Ashley Frankel MD [address] [place] [address] PCP - General Family Medicine 08/28/18 Sonya Hoang [address] 3rd [place] [address] Gastroenterology 07/17/24 Kishore Dorsey MD [address] [place] [address] Urology 07/17/24 Raheel Gee 5 [place], [place] 1040 Pulmonary Disease 07/17/24 Riya Fulton 11 [facility] 3rd [place] [address] Cardiology 07/17/24 Sergio Hackett [address] [place] [address] Orthopaedic Surgery 07/17/24 Dominga Silva, AnanthD 230 [place] [address] Pharmacist Internal Medicine 07/22/24 documented as of this encounter
--- OUTSIDE RECORDS SUMMARY | 2024-09-30 11:49 | XMS_ITS | Encounter Summary ---
Author Organization [employer] Address 75 [facility] 7t [place] [address] Care Team Providers Care Arts Therapist Name Role Phone Ashley Frankel MD Primary Care Provider [phone] Hoang, November Unavailable Kishore Dorsey MD Unavailable [phone] Raheel Gee Unavailable [phone] Riya Fulton Unavailable Sergio Hackett Unavailable Unavailable Dominga Silva PharmD Unavailable Reason for Visit * Reason Comments Med Refill Encounter Details Date Type Department Care Team (Late st Contact Info) Description 07/24/2023 Refill [facility] [address] [place] [address] [facility] 230 [place], [place] [phone] Prostatitis, acute Social History Tobacco Use Types [...] EST Office Visit [facility] [address] [place] [address] Ashley Frankel MD [address] [place] [address] 12/09/2024 8:00 AM EDT Office Visit [facility] [address] [place] [address] Jackie Peacock documented as of this encounter Visit Diagnoses Diagnosis Prostatitis, acute Acute prostatitis Palpitations- Primary 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 ([facility]) Dietary counseling Dietary surveillance and counseling Exercise counseling Overweight documented in this encounter Care Teams Arts Therapist Relationship Specialty Start Date End Date Ashley Frankel MD [address] [place] [address] PCP - General Family Medicine 08/28/[address] 3rd [place] [address] Gastroenterology 07/17/24 Kishore Dorsey MD [address] [place] [address] Urology 07/17/24 Raheel Gee 5 [place], [place] 1040 Pulmonary Disease 07/17/24 Riya Fulton 11 [facility] 3rd [place] [address] Cardiology 07/17/24 Sergio Hackett [address] [place] [address] Orthopaedic Surgery 07/17/24 Dominga Silva, Mehrdad [address] [place] [address] Pharmacist Internal Medicine 07/22/24 documented as of this encounter
--- OUTSIDE RECORDS SUMMARY | 2024-09-30 11:49 | XMS_ITS | Encounter Summary ---
Author Organization [employer] Address [address] [place] [address] 7t [place] [address] Care Team Providers Care Health Program Specialist Name Role Phone Ashley Frankel MD Primary Care Provider [phone] Viktor November Unavailable Kishore Dorsey MD Unavailable Raheel Gee Unavailable [phone] Riya Fulton Unavailable Sergio Hackett Unavailable Unavailable Dominga Silva PharmD Unavailable [phone] Reason for Visit * Reason Onset Date Comments Appointment Request 08/05/2024 Encounter Details Date Type Department Care Team (Late st Contact Info) Description 08/05/[address] [facility] 230 [place] [address] Ashley Frankel MD 230 [place] [address] Appointment Request Social History Tobacco [...] the past 12 months, has t he [employer], gas, oil or water [employer] threatened to shut off services in your [...] Miscellaneous Notes * Telephone Encounter - Luis Blevisn - 08/05/2024 9:38 AM EST TC from pt reports missing todays visit. Wanting to reschedule documented in this encounter Plan of Treatment Upcoming Encounters Date Type Department Care Team (Late st Contact Info) Description 10/24/2024 9:15 AM EST Office Visit [facility] [address] [place] [phone] Ashley Frankel MD [address] [place] [address] 12/09/2024 8:00 AM EDT Office Visit [facility] [address] [place] [address] Jackie Peacock documented as of this encounter Visit Diagnoses Not on filedocumented in this encounter Additional Health Concerns Assessment Noted Time PHQ-9 Depression Total Score: 0 07/17/20 24 10:33 AM EST documented as of this encounter Care Teams Health Program Specialist Relationship Specialty Start Date End Date Ashley Frankel MD [address] [place] [address] PCP - General Family Medicine 08/28/18 Sonya Hoang [address] [place] [address] Gastroenterology 07/17/24 Kishore Dorsey MD [address] [place] [address] Urology 07/17/24 Raheel Gee 5 [place] 10[address] Pulmonary Disease 07/17/24 Riya Fulton [address] [address] Cardiology 07/17/24 Sergio Hackett [address] [place] [address] Orthopaedic Surgery 07/17/24 Dominga Silva PharmD [address] [place] [address] Pharmacist Internal Medicine 07/22/24 documented as of this encounter
--- OUTSIDE RECORDS SUMMARY | 2024-09-30 11:49 | XMS_ITS | Encounter Summary ---
Author Organization [employer] Address 75 [facility] 7t [place] [address] Care Team Providers Care Child Nurse Name Role Phone Ashley Frankel MD Primary Care Provider [phone] November Unavailable Kishore Dorsey MD Unavailable [phone] Raheel Gee Unavailable [phone] Riya Fulton Unavailable Sergio Hackett Unavailable Unavailable Dominga SilvaD Unavailable [phone] Encounter Details Date Type Department Care Team (Latest Contact Info) Description 09/28/2024 Travel Social History Tobacco Use Types Packs/Day Years [...] Description 10/24/2024 9:15 AM EST Office Visit [facility] [address] [place] [address] Ashley Frankel MD [address] [place] [address] 12/09/2024 8:00 AM EDT Office Visit [facility] AD[facility] [address] [place] [address] Jackie Peacock documented as of this encounter Visit Diagnoses Not on filedocumented in this encounter Additional Health Concerns Assessment Noted Time PHQ-9 Depression Total Score: 0 07/17/20 10:33 AM EST documented as of this encounter Care Teams Child Nurse Relationship Specialty Start Date End Date Ashley Frankel MD [address] [place] [address] PCP - General Family Medicine 08/28/18November [address] 3rd [place] [address] Gastroenterology 07/17/24 Kishore Dorsey MD [address] [place] [address] Urology 07/17/24 Raheel Gee 5 [place], [place] 10[address] Pulmonary Disease 07/17/24 Riya Fulton 11 [facility] 3rd [place] [address] Cardiology 07/17/24 Sergio Hackett [address] [place] [address] Orthopaedic Surgery 07/17/24 Dominga Silva, AnanthD [address] [place] [address] Pharmacist Internal Medicine 07/22/24 documented as of this encounter
--- OUTSIDE RECORDS SUMMARY | 2024-09-30 11:49 | XMS_ITS | Encounter Summary ---
Author Organization [employer] Address [address] [place] [address] 7[address] [place] [address] Care Team Providers Care Cushion Sewer Name Role Phone Ashley Frankel MD Primary Care Provider [phone]- [phone] Viktor Sonya Unavailable Kishore Dorsey MD Unavailable Raheel Gee Unavailable [phone] Riya Fulton Unavailable Sergio Hackett Unavailable Unavailable Dominga Silva PharmD Unavailable Encounter Details Date Type Department Care Team (Late st Contact Info) Description 07/25/2022 Abstract [facility] ADULT DENTAL [address] [place] [address] Dental, Provider, DDS Social History Tobacco Use [...] 9:15 AM EST Office Visit [facility] MEDICINE [address] [place] [address] Ashley Frankel MD [address] [place], [place] [phone] 12/09/2024 8:00 AM EDT Office Visit [facility] [address] [place] [address] Jackie Peacock documented as of this encounter [...] on filedocumented in this encounter Care Teams Cushion Sewer Relationship Specialty Start Date End Date Ashley Frankel MD [address] [place] [address] PCP - General Family Medicine 08/28/18November [address] 3rd [place] [address] Gastroenterology 07/17/24 Kishore Dorsey MD [address] [place] [address] Urology 07/17/24 Raheel Gee [address] [place] 10[address] Pulmonary Disease 07/17/24 Riya Fulton [address] 3rd [place] [address] Cardiology 07/17/24 Sergio Hackett [address] 2nd [place] [address] Orthopaedic Surgery 07/17/24 Dominga Silva, Mehrdad [address] [place] [address] Pharmacist Internal Medicine 07/22/24 documented as of this encounter
--- OUTSIDE RECORDS SUMMARY | 2024-09-30 11:49 | XMS_ITS | Encounter Summary ---
Author Organization [employer] Address [address] [facility] 7t [place] [address] Care Team Providers Care Cigar Patcher Name Role Phone Ashley Frankel MD Primary Care Provider [phone]- [phone] Hoang, November Unavailable Kishore Dorsey MD Unavailable [phone] Raheel Gee Unavailable [phone] Riya Fulton Unavailable Sergio Hackett Unavailable Unavailable Dominga Silva PharmD Unavailable Encounter Details Date Type Department Care Team (Late st Contact Info) Description 09/09/2024 Orders Only [facility] External Provider, [facility] Social History Tobacco Use Types Packs/Day [...] Office Visit [facility] MEDICINE [address] [place], [place] [phone] Ashley Frankel MD [address] [place], [place] [phone] 12/09/2024 8:00 AM EDT Office Visit [facility] ADULT DENTAL [address] [place], [place] [phone] Jackie Peacock documented as of this encounter [...] SENSITIVITY 5.2 <3.5 - 35.0 ng/L [facility] Comment:The Schmidt high sens itivity Troponin-I results should beused in conjunction with other diagnostic information suchas ECG, clinical observations and information, and patientsymptoms to aid in the diagnosis of PA. 09/09/2024 2:44 PM EST 09/09/2024 2:53 PM EST Generic External Data Provider LAB BLOOD ORDERAB LES Final Result Performing Organization Address [facility] Co de Phone Number [facility] [address] [place] [phone] * Lipase (09/09/2024 11:02 AM EST) Pathologist [facility] Lipase 28 8 - 78 U/L [facility] 09/09/2024 11:0 2 AM EST 09/09/2024 11:06 AM EST Generic External Data Provider LAB BLOOD ORDERAB LES Final Result Performing Organization Address [facility] Co de Phone Number [facility] [address] [place] [phone] * Magnesium (09/09/2024 11:02 AM EST) Pathologist [facility] Magnesium 2.0 1.6 - 2.6 mg/dL [facility] 09/09/2024 11:0 2 AM EST 09/09/2024 11:06 AM EST Generic External Data Provider LAB BLOOD ORDERAB LES Final Result Performing Organization Address City/[facility]/ZIP Co de Phone Number [facility] [address] [place] [phone] [phone] * (ABNORMAL) Basic Metabolic Panel (09/09/2024 11:02 AM EST) Sodium 142 135 - 145 mmol/L [facility] Potassium 3.7 3.3 - 5.1 mmol/L [facility] Chloride 108 96 - 108 mmol/L [facility] Carbon Dioxide 29 22 - 29 mmol/L [facility] Anion Gap 9(L) 12 - 20 [facility] Urea Nitrogen (BUN) 13 9 - 16 mg/dL [facility] Creatinine, Serum 1.00 0.5 - 1.4 mg/dL [facility] Creatinine Clr Calc Pharmacy 81.3 [facility] Comment:eGFR (calculated fro m the MDRD study equation) and eCrCl(calculated from the Cockcroft-Gault equation) are based ondifferent parameters and may not yield comparable results.If eCrCl result is absurd, please check patient'sheight/weight. Estimated Glomerular Filt Rate >60 [facility] Comment:Chronic Kidney Disea se: Estimated GFR < 60 mL/min/[id number] Kidney Disease: Estimated GFR < 15 mL/min/1.73m2 Glucose 147(H) 60 - 115 mg/dL [facility] Calcium 9.2 8.4 - 10.2 mg/dL [facility] 09/09/2024 11:0 2 AM EST 09/09/2024 11:06 AM EST Generic External Data Provider LAB BLOOD ORDERAB LES Final Result Performing Organization Address City/[facility]/ZIP Co de Phone Number [facility] [address] [place] [phone] * Hepatic Function Panel (09/09/2024 11:02 AM EST) Bilirubin, Total 0.9 0.0 - 1.0 mg/dL [facility] Bilirubin, Direct 0.3 0.0 - 0.5 mg/dL [facility] Aspartate Amino Transferase 29 5 - 37 U/L [facility] Alanine Aminotransferase 23 0 - 40 U/L [facility] Total Protein 6.9 6.5 - 8.0 g/dL [facility] Albumin Level 4.1 3.5 - 5.0 g/dL [facility] Alkaline Phosphatase 100 39 - 117 U/L [facility] 09/09/2024 11:0 2 AM EST 09/09/2024 11:06 AM EST us Generic External Data Provider LAB BLOOD ORDERAB LES Final Result [facility] [address] [place] [phone] * (ABNORMAL) CBC auto differential (09/09/2024 11:02 AM EST) White Blood Count 3.7(L) 4.8 - 10.8 X10*3/uL [facility] Red Blood Count 4.60 4.60 - 5.80 X10*6/uL [facility] Hemoglobin 13.8(L) 14.0 - 18.0 g/dl [facility] Hematocrit 41.4(L) 42.0 - 52.0 % [facility] Mean Corpuscular Volume 90.0 80.0 - 98.0 fL [facility] Mean Corpuscular Hemoglobin 30.0 27.0 - 33.0 pg [facility] Mean Corpuscular HGB Conc 33.3 31.0 - 36.0 g/dl [facility] Red Cell Distribution Width 13.2 11.0 - 16.0 % [facility] Platelet Count 208 160 - 400 X10*3/uL [facility] Mean Platelet Volume 10.4 9.4 - 12.4 fL [facility] Neutrophils Percent Auto 53.8 45 - 73 % [facility] Imm Gran Pct Auto 0.3 0.0 - 0.4 % [facility] Lymphocytes Percent Auto 32.4 20 - 40 % [facility] Monocytes Percent Auto 10.3 2 - 11 % [facility] Eosinophils Percent Auto 2.4 0 - 4 % [facility] Basophils Percent Auto 0.8 0 - 2 % [facility] NRBC Pct Auto 0.0 0.0 - 0.2 /100WBC [facility] Neutrophils Absolute Auto 2.0 2.0 - 8.3 x10*3/uL [facility] Imm Gran Abs Auto 0.01 0.00 - 0.03 X10*3/uL [facility] Lymphocytes Absolute Auto 1.2 1.2 - 4.9 X10*3/uL [facility] Monocytes Absolute Auto 0.4 0.1 - 1.2 X10*3/uL [facility] Eosinophils Absolute Auto 0.1 0.0 - 0.4 X10*3/uL [facility] Basophils Absolute Auto 0.0 0.0 - 0.2 X10*3/uL [facility] NRBC Abs Auto 0.000 0.0 - 0.012 X10*3/uL [facility] 09/09/2024 11:0 2 AM EST 09/09/2024 11:06 AM EST us Generic External Data Provider LAB BLOOD ORDERAB LES Final Result [facility] [address] [place] [phone] * SARS-CoV-2 RNA, Influenza A/B, and RSV RNA, Ql NAAT (09/09/2024 11:01 AM EST) Influenza A PCR NEGATIVE Negative [facility] Influenza B PCR NEGATIVE Negative [facility] Resp Syncy Virus RNA Qual PCR NEGATIVE Negative [facility] SARS COV2 PCR NEGATIVE Negative [facility] Comment:All test results mus t be [...] use by authorized laboratories.Testing performed on the [employer] GeneXpert utilizingreal-time RT-PCR.All SARS CoV2 and positive influenza A/B results arereported to [facility]. 09/09/2024 11:0 1 AM EST 09/09/2024 11:06 AM EST Generic External Data Provider LAB MICROBIOLOGY - GENERAL ORDERABLES Final Result Performing Organization Address [facility] de Phone Number [facility] [address] [place] [phone] * High Sensitivity Troponin I (09/09/2024 11:01 AM EST) [facility] TROPONIN I HIGH SENSITIVITY 3.2 <3.5 - 35.0 ng/L [facility] Comment:The Schmidt high sens itivity Troponin-I results should beused in conjunction with other diagnostic information suchas ECG, clinical observations and information, and patientsymptoms to aid in the diagnosis of PA. 09/09/2024 11:0 1 AM EST 09/09/2024 11:06 AM EST Generic External Data Provider LAB BLOOD ORDERAB LES Final Result Performing Organization Address [facility] de Phone Number [facility] [address] [place] [phone] * XR Chest 2 Views (09/09/2024 10:34 AM EST) Anatomical Region Laterality Modality Chest Radiographic Hannah ging 09/09/2024 10:3 4 AM EST Narrative 09/09/2024 11:06 AM EST ? [facility] ?[address] ?[place] [address] ?XRay Report ? Signed ? Patient: Krista,Bobby ?MR#: [id number] ? : 1965 ?Acct:[id number] ? Age/Sex: 59 / M ?ADM Date: 09/09/24 ? Loc: HO.ED ? Attending Dr: ? Ordering Physician: Deandra Reynolds DO ?? Date of Service: 09/09/24 ?? Procedure(s): XR chest 2V ?? Accession Number(s): [id number] ? cc: Ashley Frankel MD; Deandra Reynolds [...] DD/ 1034 ? TD/TT: 09/09/24 1045 ? Staff Technologist: ? Procedure Note Cesar Justice - 09/09/[address] [address] XRay Report Signed Patient: Pierce Velasco#: [id number] : 1965Acct:[id number] Age/Sex: 59 / MADM Date: 09/09/24 Loc: HO.ED Attending Dr: Ordering Physician: Deandra Reynolds DO Date of Service: 09/09/24 Procedure(s): XR chest 2V Accession Number(s): [id number] cc: Ashley Frankel MD; Deandra Reynolds DO [...] OV> 09/09/24 1103 DD/ 1034 TD/TT: 09/09/24 1048 Staff Technologist: [facility] External Provider IMG XR PROCEDURES Edited Result - Final documented in this encounter Visit Diagnoses Not on filedocumented in this encounter Additional Health Concerns Assessment Noted Time PHQ-9 Depression Total Score: 0 07/17/20 10:33 AM EST documented as of this encounter Care Teams Cigar Patcher Relationship Specialty Start Date End Date Ashley Frankel MD [address] [place] [address] PCP - General Family Medicine 08/28/18November [address] [place] [address] Gastroenterology 07/17/24 Kishore Dorsey MD [address] [place] [address] Urology 07/17/24 Raheel Gee 5 [place], [place] 1040 Pulmonary Disease 07/17/24 Riya Fulton 11 [facility] 3rd [place] [address] Cardiology 07/17/24 Sergio Hackett [facility][note 3] [address] 2nd [place] [address] Orthopaedic Surgery 07/17/24 Dominga Silva, AnanthD [address] [place] [address] Pharmacist Internal Medicine 07/22/24 documented as of this encounter
--- OUTSIDE RECORDS SUMMARY | 2024-09-30 11:49 | XMS_ITS | Encounter Summary ---
Author Organization [employer] Address [address] [place] [address] 7t [place] [address] Care Team Providers Care Medical Laboratory Technician Name Role Phone Ashley Frankel MD Primary Care Provider [phone]- [phone] Viktor Sonya Unavailable Kishore Dorsey MD Unavailable Raheel Gee Unavailable [phone] Riya Fulton Unavailable Sergio Hackett Unavailable Unavailable Dominga Silva PharmD Unavailable Encounter Details Date Type Department Care Team (Latest Contact Info) Description 07/04/2019 Abstract [facility] CONVERSIONS Dental, Provider, DDS Social History [...] 9:15 AM EST Office Visit [facility] MED[facility]INE [address] [place], [place] [phone] Ashley Frankel MD [address] [place], [place] [phone] 12/09/2024 8:00 AM EDT Office Visit [facility] ADULT DENTAL [address] [place] [address] Jackie Peacock documented as of this encounter Visit Diagnoses Not on filedocumented in this encounter Care Teams Medical Laboratory Technician Relationship Specialty Start Date End Date Ashley Frankel MD [address] [place] [address] PCP - General Family Medicine 08/28/18 Viktor November [address] 3rd [place] [address] Gastroenterology 07/17/24 Kishore Dorsey MD [address] [place] [address] Urology 07/17/24 Raheel Gee 5 [place], [place] 1040 Pulmonary Disease 07/17/24 Riya Fulton 11 [facility] 3rd [place] [address] Cardiology 07/17/24 Sergio Hackett [address] [place] [address] Orthopaedic Surgery 07/17/24 Dominga Silva PharmD 230 [place] [address] Pharmacist Internal Medicine 07/22/24 documented as of this encounter
--- OUTSIDE RECORDS SUMMARY | 2024-09-30 11:49 | XMS_ITS | Encounter Summary ---
Author Organization [employer] Address [address] [place] [address] [address] [address] Care Team Providers Care Supervisor Logging Name Role Phone Ashley Frankel MD Primary Care Provider [phone]- [phone] Viktor Sonya Unavailable Kishore Dorsey MD Unavailable Raheel Gee Unavailable [phone] Riya Fulton Unavailable Sergio Hackett Unavailable Unavailable Dominga Silva PharmD Unavailable Encounter Details Date Type Department Care Team (Latest Contact Info) Description 06/08/2022 Abstract [facility] CONVERSIONS Dental, Provider, DDS Social History Tobacco [...] Description 10/24/2024 9:15 AM EST Office Visit [facility] MEDICINE 230 [place], [place] [phone] Ashley Frankel MD [address] [place], [place] [phone] 12/09/2024 8:00 AM EDT Office Visit [facility] ADULT DENTAL 230 [place] [address] Jackie Peacock documented as of this encounter Visit Diagnoses Not on filedocumented in this encounter Care Teams Supervisor Logging Relationship Specialty Start Date End Date Ashley Frankel MD [address] [place] [address] PCP - General Family Medicine 08/28/18 Viktor November [address] [place] [address] Gastroenterology 07/17/24 Kishore Dorsey MD [address] [place] [address] Urology 07/17/24 Raheel Gee 5 [place], [place] 1040 Pulmonary Disease 07/17/24 Riya Fulton 11 [facility] 3rd [place] [address] Cardiology 07/17/24 Sergio Hackett [address] [place] [address] Orthopaedic Surgery 07/17/24 Dominga Silva PharmD [address] [place] [address] Pharmacist Internal Medicine 07/22/24 documented as of this encounter
--- OUTSIDE RECORDS SUMMARY | 2024-09-30 11:49 | XMS_ITS | Encounter Summary ---
Author Organization [employer] Address [address] [facility] 7t [place] [address] Care Team Providers Care Process Tank Tender Name Role Phone Ashley Frankel MD Primary Care Provider [phone] Viktor November Unavailable Kishore Dorsey MD Unavailable Raheel Gee Unavailable [phone] Riya Fulton Unavailable Sergio Hackett Unavailable Unavailable Dominga Silva PharmD Unavailable Reason for Visit * Reason Comments Med Change Request Encounter Details Date Type Department Care Team (Late st Contact Info) Description 07/12/[address] [facility] MEDICINE 230 [place], [place] [phone] Ashley Frankel MD 230 [place], [place] [phone] Social History Tobacco Use Types Packs/Day Years [...] 9:15 AM EST Office Visit [facility] MEDICINE [address] [place] [address] Ashley rFankel MD [address] [place] [address] 12/09/2024 8:00 AM EDT Office Visit [facility] ADULT DENTAL [address] [place] [address] Jackie Peacock documented as of this encounter Visit Diagnoses Not on filedocumented in this encounter Care Teams Process Tank Tender Relationship Specialty Start Date End Date Ashley Frankel MD [address] [place] [address] PCP - General Family Medicine 08/28/18November [address] 3rd [place] [address] Gastroenterology 07/17/24 Kishore Dorsey MD [address] [place] [address] Urology 07/17/24 Raheel Gee 5 [place], [place] 1040 Pulmonary Disease 07/17/24 Riya Fulton 11 [facility] 3rd [place] [address] Cardiology 07/17/24 Sergio Hackett 300 [facility] [address] 2nd [place] [address] Orthopaedic Surgery 07/17/24 Dominga Silva, Mehrdad 230 [place] [address] Pharmacist Internal Medicine 07/22/24 documented as of this encounter
--- OUTSIDE RECORDS SUMMARY | 2024-09-30 11:50 | XMS_ITS | Encounter Summary ---
Author Organization [employer] Address [address] [facility] 7t [place] [address] Care Team Providers Care Hot Blast Worker Name Role Phone Ashley Frankel MD Primary Care Provider [phone]- [phone] Hoang November Unavailable Kishore Dorsey MD Unavailable Raheel Gee Unavailable [phone] Riya Fulton Unavailable Sergio Hackett Unavailable Unavailable Dominga Silva PharmD Unavailable Reason for Visit * Reason Comments Scaling And Root Planing Encounter Details Date Type Department Care Team (Late st Contact Info) Description 05/29/2024 11:00 AM EDT Office Visit [facility] ADULT DENTAL 230 [place] [address] Jackie Peacock Dental calculus (Primary Dx); Dental plaque; Tartar Social History Tobacco Use Types Packs/Day Years [...] AM EDT documented as of this encounter Progress Notes * Jackie Peacock - 05/29/2024 11:00 AM EDT Patient ID: Bobby Velasco is a 58 y.o. male. Time Out: Timeout Date: 05/29/24, Timeout Time: 1118 (Dental SRP Adult) Location: [facility] Tooth: UL and LL Procedure: Scaling and Root Planing Verified the above with patient, assistant research scientist, and provider. Confirmed via patient's chart, intraorally and by radiographs. Orthotist: not applicable Medical Hx: Vitals: There were no vitals taken for this visit. Medications, Med Hx reviewed with patient and updated in chart. Treatment Provided Dental procedures in this visit D4341 - PERIODONTAL SCALING AND ROOT PLANING - 4 OR MORE TEETH PER QUADRANT UL (Completed) Service provider: Jackie Peacock Billing provider: Naida Yates DDS D9450 - CASE PRESENTATION, DETAILED AND EXTENSIVE TREATMENT PLANNING (Completed) Service provider: Jackie Peacock Billjerel provider: Naida Yates DDS Topical: 20% Benzocaine Anesthesia: none Number of Cartridges: 0 Injection Type: N/A Confirmed profound anesthesia. Oral Cancer Screening: No lesions Head/Neck Exam: No Lesions Instruments Used: Ultrasonic Scalers and Hand Scalers Fluoride: N/A Calculus: Heavy and Generalized Plaque: Light and Generalized Stain: Heavy and Generalized Bleeding: Moderate and Generalized Gingiva: Erythematous [place]: Poor Oral hygiene instructions provided to patient including brushing technique and flossing. Recommendations: [place] two times daily, modified burgess technique, Floss daily, Electric toothbrush, Soft bristle toothbrush, [place] Tongue Recall Frequency: 6 mo NV: 6mrc Hygienist: Jackie Peacock RDH Cosigned by Naida Yates DDS at 06/06/2024 1:55 PM EDT Associated attestation - Naida Yates DDS - 06/06/2024 1:55 PM EDT I have reviewed the documentation and dental procedures made by the rendering provider, Jackie Peacock RDH , and approve their chart entries for this visit. Naida Yates DDS documented in this encounter Plan of Treatment Upcoming Encounters Date Type Department Care Team (Late st Contact Info) Description 10/24/2024 9:15 AM EST Office Visit [facility] MEDICINE [address] [place] [address] Ashley Frankel MD [address] [place] [address] 12/09/2024 8:00 AM EDT Office Visit [facility] ADULT DENTAL [address] [place] [address] Jackie Peacock documented as of this encounter Procedures Procedure Name Priority Date/Time Associated Diagnosis Comments UL PERIODONTAL SCALING AND ROOT PLANING - 4 OR MORE TEETH PER QUADRANT Routine 05/29/2024 11:00 AM EDT Dental calculus Dental plaque Tartar [employer] - PROFESSIONAL VISITS - CASE PRESENTATION, SUBSEQUENT TO DETAILED AND EXTENSIVE TREATMENT PLANNING Routine 05/29/2024 11:00 AM EDT documented in this encounter Visit Diagnoses Diagnosis Dental calculus- Primary Accretions on teeth Dental plaque Accretions on teeth Tartar Accretions on teeth Palpitations- Primary 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 ([facility]/HCC) Dietary counseling Dietary surveillance and counseling Exercise counseling Overweight documented in this encounter Care Teams Hot Blast Worker Relationship Specialty Start Date End Date Ashley Frankel MD [address] [place] [address] PCP - General Family Medicine 08/28/[address] 3rd [place] [address] Gastroenterology 07/17/24 Kishore Dorsey MD [address] [place] [address] Urology 07/17/24 Raheel Gee 5 [place], [place] 10[address] Pulmonary Disease 07/17/24 Riya Fulton [address] [facility] [address] [place] [address] Cardiology 07/17/24 Sergio Hackett [address] [place] [address] Orthopaedic Surgery 07/17/24 Dominga Silva, Mehrdad 230 [place] [address] Pharmacist Internal Medicine 07/22/24 documented as of this encounter
--- OUTSIDE RECORDS SUMMARY | 2024-09-30 11:50 | XMS_ITS | Encounter Summary ---
Author Organization [employer] Address [address] [place] [address] 7[address] [place] [address] Care Team Providers Care Account Support Analyst Name Role Phone Ashley Frankel MD Primary Care Provider [phone] Viktor November Unavailable Kishore Dorsey MD Unavailable [phone] Raheel Gee Unavailable [phone] Riya Fulton Unavailable Sergio Hackett Unavailable Unavailable Dominga Silva PharmD Unavailable Encounter Details Date Type Department Care Team (Late st Contact Info) Description 04/07/2023 Abstract [facility] MEDICINE [address] [place] [address] [phone] Ashley Frankel MD [address] [place] [address] [phone] Social History Tobacco Use Types Packs/Day Years [...] Description 10/24/2024 9:15 AM EST Office Visit [facility] MEDICINE [address] [place] [address] Ashley Frankel MD [address] [place] [address] 12/09/2024 8:00 AM EDT Office Visit [facility] ADULT DENTAL [address] [place] [address] Jackie Peacock documented as of this encounter Procedures Procedure Name Priority Date/Time Associated Diagnosis Comments COLONOSCOPY Routine 04/06/2023 documented in this encounter Results * Colonoscopy (04/06/2023) Colonoscopy Normal Normal Historical Provider HEALTH MAINTENANCE Final Result documented in this encounter Visit Diagnoses Not on filedocumented in this encounter Care Teams Account Support Analyst Relationship Specialty Start Date End Date Ashley Frankel MD [address] [place] [address] PCP - General Family Medicine 08/28/18November [address] [place] [address] Gastroenterology 07/17/24 Kishore Dorsey MD [address] [place] [address] Urology 07/17/24 Raheel Gee 5 [place], [place] 1040 Pulmonary Disease 07/17/24 Riya Fulton [address] [place] [address] Cardiology 07/17/24 Sergio Hackett [address] 2nd [place] [address] Orthopaedic Surgery 07/17/24 Dominga Silva, Mehrdad [address] [place] [address] Pharmacist Internal Medicine 07/22/24 documented as of this encounter
--- OUTSIDE RECORDS SUMMARY | 2024-09-30 11:50 | XMS_ITS | Encounter Summary ---
Author Organization [employer] Address [address] [place] [address] 7t [place] [address] Care Team Providers Care Treasury Manager Name Role Phone Ashley Frankel MD Primary Care Provider [phone]- [phone] Hoang November Unavailable Kishore Dorsey MD Unavailable [phone] Raheel Gee Unavailable [phone] Riya Fulton Unavailable Sergio Hackett Unavailable Unavailable Dominga Silva PharmD Unavailable Reason for Visit * Reason Comments Med Refill Encounter Details Date Type Department Care Team (Late st Contact Info) Description 09/18/2024 Refill [facility] MEDICINE [address] [place], [place] [phone] Nisha Smith MD 230 [place], [place] [phone] Allergic rhinitis, unspecified seasonality, unspecified trigger Social History Tobacco Use Types Packs/Day Years [...] the past 12 months, has t he [employer] gas, oil or water company threatened to [...] Description 10/24/2024 9:15 AM EST Office Visit [facility] MEDICINE [address] [place] [address] Ashley Frankel MD [address] [place] [address] 12/09/2024 8:00 AM EDT Office Visit [facility] ADULT DENTAL 230 [place] [address] Jackie Peacock documented as of this encounter Visit Diagnoses Diagnosis Allergic rhinitis, unspecified seasonality, unspecified trigger Palpitations- Primary 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 ([facility]) Dietary counseling Dietary surveillance and counseling Exercise counseling Overweight documented in this encounter Additional Health Concerns Assessment Noted Time PHQ-9 Depression Total Score: 0 07/17/20 24 10:33 AM EST documented as of this encounter Care Teams Treasury Manager Relationship Specialty Start Date End Date Ashley Frankel MD [address] [place] [address] PCP - General Family Medicine 08/28/18 Sonya Hoang [address] 3rd [place] [address] Gastroenterology 07/17/24 Kishore Dorsey MD [address] [place] [address] Urology 07/17/24 Raheel Gee 5 [place], [place] 1040 Pulmonary Disease 07/17/24 Riya Fulton [address] [place] [address] Cardiology 07/17/24 Sergio Hackett [address] 2nd [place] [address] Orthopaedic Surgery 07/17/24 Dominga Silva, AnanthD 230 [place] [address] Pharmacist Internal Medicine 07/22/24 documented as of this encounter
--- OUTSIDE RECORDS SUMMARY | 2024-09-30 11:50 | XMS_ITS | Encounter Summary ---
Author Organization [employer] Address [address] [place] [address] 7[address] [place] [address] Care Team Providers Care Special Education Curriculum Specialist Name Role Phone Ashley Frankel MD Primary Care Provider [phone] Viktor November Unavailable Kishore Dorsey MD Unavailable Raheel Gee Unavailable [phone] Riya Fulton Unavailable Sergio Hackett Unavailable Unavailable Dominga Silva PharmD Unavailable Encounter Details Date Type Department Care Team (Late st Contact Info) Description 09/13/2022 Abstract [facility] MEDICINE [address] [place] [address] Ashley Frankel MD [address] [place] [address] [phone] Social History Tobacco Use Types Packs/Day Years [...] Description 10/24/2024 9:15 AM EST Office Visit [facility] MEDICINE [address] [place] [address] [phone] Ashley Frankel MD 230 [place] [address] 12/09/2024 8:00 AM EDT Office Visit [facility] ADULT DENTAL 230 [place] [address] Jackie Peacock documented as of this encounter Procedures Procedure Name Priority Date/Time Associated Diagnosis Comments COLONOSCOPY Routine 09/06/2012 documented in this encounter Results * Colonoscopy (09/06/2012) [facility] Signature Colonoscopy normal with Dr. Barrera us Historical Provider HEALTH MAINTENANCE Final Result documented in this encounter Visit Diagnoses Not on filedocumented in this encounter Care Teams Special Education Curriculum Specialist Relationship Specialty Start Date End Date Ashley Frankel MD 230 [place] [address] PCP - General Family Medicine 08/28/18November [address] [place] [address] Gastroenterology 07/17/24 Kishore Dorsey MD [address] [place] [address] Urology 07/17/24 Raheel Gee 5 [place], [place] 1040 Pulmonary Disease 07/17/24 Riya Fulton [address] [place] [address] Cardiology 07/17/24 Sergio Hackett [address] [place] [address] Orthopaedic Surgery 07/17/24 Dominga Silva, Mehrdad 230 [place] [address] Pharmacist Internal Medicine 07/22/24 documented as of this encounter
--- OUTSIDE RECORDS SUMMARY | 2024-09-30 11:50 | XMS_ITS | Encounter Summary ---
Author Organization [employer] Address [address] [facility] 7t [place] [address] Care Team Providers Care Plasma Processor Name Role Phone Ashley Frankel MD Primary Care Provider [phone] Hoang November Unavailable Kishore Dorsey MD Unavailable Raheel Gee Unavailable [phone] Riya Fulton Unavailable Sergio Hackett Unavailable Unavailable Dominga SilvaD Unavailable Reason for Referral * Imaging (Urgent) - Authorized Specialty Diagnoses / Procedures Referred By Jeromy worrell Referred To Contact Radiology Diagnoses Other microscopic hematuria Acute bilateral low back pain without sciatica Procedures US Renal Urinary bladder Malika Mac MD [address] [place] [address] Phone: tel: fax: [address] Phone: tel: fax: Referral ID Status Reason Start Date Expiration Date V isits Requested Visits Authorized [id number] Authorized 09/27/2024 09/27/2025 1 1 Reason for Visit * Reason Comments Back Pain Encounter Details Date Type Department Care Team (Late st Contact Info) Description 09/27/2024 11:00 AM EST Office Visit [facility] [address] [place] [address] Malika Mac MD [address] [place], [place] [phone] Other microscopic hematuria (Primary Dx); Acute bilateral low back pain without sciatica Social History Tobacco Use Types Packs/Day Years Used Date Smoking Tobacco: Former Cigarettes Smokeless Tobacco: Never Depression Answer Date Recorded Patient Health Questionnaire-9 Score 0 07/17/2024 Patient Health Questionnaire-9 Score 0 07/17/2024 Last PHQ-9: Questionnaire Data Not on file 1 09/16/2023 Housing Stability Answer Date Recorded What is your housing situation today? I have jo kemal 11/02/[address] you li [...] Sign Reading Time Taken Comments Blood Pressure 173/92 09/27/2024 10:51 AM EST Pulse 72 09/27/2024 10:51 AM EST Temperature 36.1 ??C (96.9 ??F) 09/27/2024 10:[address] Respiratory Rate 17 09/27/2024 10:51 AM EST Oxygen Saturation 98% 09/27/2024 10:51 AM EST Inhaled Oxygen Concentration - - Weight 80 kg (176 lb 6.4 oz) 09/27/2024 10:51 AM EST Height - - Body Mass Index 26.82 07/17/2024 9:35 AM EST documented in this encounter Progress Notes * Malika Mac MD - 09/27/2024 11:00 AM EST SUBJECTIVE: Bobby Velasoc is a 59 y.o. year old male who presents for Walk In [facility]/LBP . Denies recent illness, injury, or hospitalization. Acute Concerns: Patient complains of exacerbation of low back pain for the past 3 days associated to darker urine. Pain is occasionally radiated to right buttocks and inguinal area, he does not have any fever chillsabdominal pain nausea. Social History Social History Narrative Not on file Patient Active Problem List Diagnosis Bilateral hearing loss Diabetes mellitus type 2, uncomplicated (CMS/HCC) DISH (diffuse idiopathic skeletal hyperostosis) Hypertension Mild intermittent asthma Solitary pulmonary nodule Dyslipidemia Anxiety Palpitations Erectile dysfunction GERD (gastroesophageal reflux disease) Colon cancer screening Lower abdominal pain Class 1 obesity Other specified health status Benign prostatic hyperplasia with urinary obstruction Hard of hearing History of Clostridioides difficile colitis Migraine Nasal polyps Pulmonary nodules Sinusitis Chest discomfort Chronic migraine without aura Chronic low back pain with bilateral sciatica Acute bilateral low back pain without sciatica Ankylosis of spine Diffuse idiopathic skeletal hyperostosis of cervicothoracic spine Cardiac risk counseling Basal cell carcinoma (BCC) Rectal bleeding Abnormal CXR 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 Review of Systems Constitutional: Negative for fever. HENT: Negative for congestion, ear pain, rhinorrhea and sore throat. Eyes: Negative for pain and discharge. Respiratory: Negative for cough and shortness of breath. Cardiovascular: Negative for chest pain. Gastrointestinal: Negative for abdominal pain, constipation, diarrhea and nausea. Endocrine: Negative for polydipsia. Genitourinary: Negative for dysuria and frequency. Musculoskeletal: Positive for back pain. Negative for arthralgias and neck pain. Neurological: Negative for dizziness, numbness and headaches. Psychiatric/Behavioral: Negative for agitation. OBJECTIVE: Vitals: 09/27/24 1051 BP: (!) 173/92 Pulse: 72 Resp: 17 Temp: 96.9 ??F (36.1 ??C) SpO2: 98% Physical Exam Constitutional: Appearance: Normal appearance. HENT: Right Ear: Tympanic membrane and ear canal normal. Left Ear: Tympanic membrane and ear canal normal. Mouth/Throat: Mouth: Mucous membranes are moist. Pharynx: No oropharyngeal exudate or posterior oropharyngeal erythema. Eyes: Pupils: Pupils are equal, round, and reactive to light. Cardiovascular: Rate and Rhythm: Normal rate and regular rhythm. Heart sounds: No murmur heard. Pulmonary: Breath sounds: Normal breath sounds. No wheezing. Abdominal: General: Bowel sounds are normal. Palpations: Abdomen is soft. Tenderness: There is no abdominal tenderness. There is right CVA tenderness. There is no guarding. Musculoskeletal: General: Normal range of motion. Cervical back: Normal range of motion. No tenderness. Thoracic back: Tenderness present. Lumbar back: Tenderness present. Skin: General: Skin is warm. Neurological: General: No focal deficit present. Mental Status: He is alert and oriented to person, place, and time. Psychiatric: Mood and Affect: Mood normal. Office Visit on 09/27/2024 Component Date Value Ref Range Status Color, UA 09/27/2024 Yellow Final Clarity, UA 09/27/2024 Clear Final Glucose, UA 09/27/2024 Negative Final Bilirubin, UA 09/27/2024 Negative Final Ketones, UA 09/27/2024 Positive Final 40 mg/dL Spec Grav, UA 09/27/2024 1.020 Final Blood, UA 09/27/2024 Positive (A) Negative, None Detected Final Trace- lysed pH, UA 09/27/2024 6.0 Final Protein, UA 09/27/2024 Many Final 100 mg/dL Urobilinogen, UA 09/27/2024 1.0 Final Leukocytes, UA 09/27/2024 Negative Negative, Rare, Trace Final Nitrite, UA 09/27/2024 Negative Negative, None Detected Final Problem List Items Addressed This Visit Other microscopic hematuria - Primary Associated to low back pain, rule out kidney stones. Order renal ultrasound, follow-up urine culture. Take tramadol 25 to 50 mg as needed pain plus Flomax nightly x 2 weeks. Patient advised to hold terazosin while he is taking Flomax and restart only if BP is higher than 160/90. Caution with sedationand constipation while taking tramadol. Follow-up after renal ultrasound or within 1 month. Relevant Orders US Renal Urinary bladder POCT urinalysis dipstick manually resulted (Completed) Acute bilateral low back pain without sciatica Relevant Medications traMADol (Ultram) 50 MG tablet Other Relevant Orders US Renal Urinary bladder Follow Up: Current Outpatient Medications on File Prior to Visit Medication Sig Dispense Refill albuterol 108 (90 Base) MCG/ACT inhaler INHALE 2 PUFFS BY MOUTH EVERY 4 HOURS NEEDED FOR SHORTNESS OF BREATH 18 g 1 amLODIPine (Norvasc) 10 MG tablet Take 1 tab po daily 90 tablet 3 atorvastatin (Lipitor) 80 MG tablet Take 1 tablet (80 mg) by mouth Once per day. 90 tablet 3 Blood Pressure kit USE DIRECTED 1 kit 0 cetirizine (ZyrTEC) 10 MG tablet TAKE 1 TABLET BY MOUTH EVERY DAY NEEDED 90 tablet 0 chlorthalidone (Hygroton) 25 MG tablet Take 1 tab po daily 90 tablet 3 fluticasone (Flonase) 50 MCG/ACT nasal spray 2 SPRAY INTRANASALLY DAILY 16 g 3 FreeStyle lancets 1 each by Other route 2 times daily. Use bid, dx type 2 diabetes 60 each 11 glucose blood (FREESTYLE LITE) test strip USE TO TEST BLOOD SUGAR TWICE A DAY 100 strip 11 hydrOXYzine HCl (Atarax) 25 MG tablet TAKE 1-2 TABLETS BY MOUTH TWICE A DAY NEEDED FOR ANXIETY OR AT NIGHT FOR SLEEP lisinopril 40 MG tablet Take 1 tab po daily 90 tablet 3 meclizine (Antivert) 25 MG tablet tadalafil (Cialis) 10 MG tablet 10 mg. terazosin (Hytrin) 5 MG capsule 5 mg. traZODone (Desyrel) 50 MG tablet TAKE 1 TABLET BY MOUTH EVERY NIGHT AT BEDTIME NEEDED 1 TABLET NEEDED FOR SLEEP No current facility-administered medications on file prior to visit. documented in this encounter Miscellaneous Notes * Assessment & Plan Note - Malika Mac MD - 09/27/2024 11:31 AM EST Associated Problem(s): Other microscopic hematuria Associated to low back pain, rule out kidney stones. Order renal ultrasound, follow-up urine culture. Take tramadol 25 to 50 mg as needed pain plus Flomax nightly x 2 weeks. Patient advised to hold terazosin while he is taking Flomax and restart only if BP is higher than 160/90. Caution with sedationand constipation while taking tramadol. Follow-up after renal ultrasound or within 1 month. documented in this encounter Plan of Treatment Upcoming Encounters Date Type Department Care Team (Late st Contact Info) Description 10/24/2024 9:15 AM EST Office Visit [facility] MEDICINE [address] [place], [place] [phone] Ashley Frankel MD [address] [place], [place] [phone] 12/09/2024 8:00 AM EDT Office Visit [facility] ADULT DENTAL [address] [place], [place] [phone] Jackie Peacock Scheduled Orders Name Type Priority Associated Diagnoses Orde r Schedule US Renal Urinary bladder Imaging Urgent Other microscopic hematuria Acute bilateral low back pain without sciatica Expected: 09/27/2024 (Approximate), Expires: 09/27/2025 documented as of this encounter Procedures Procedure Name Priority Date/Time Associated Diagnosis Comments POCT URINALYSIS DIPSTICK Routine 09/27/2024 11:46 AM EST Other microscopic hematuria documented in this encounter Results * (ABNORMAL) POCT urinalysis dipstick manually [...] Detected Urine 09/27/2024 11:4 6 AM EST Malika Mac MD POINT OF CARE TEST ENTER /EDIT ORDERABLES Final Result documented in this encounter Visit Diagnoses Diagnosis Other microscopic hematuria- Primary Acute bilateral low back pain without sciatica Palpitations- Primary 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 ([facility]/HCC) Dietary counseling Dietary surveillance and counseling Exercise counseling Overweight documented in this encounter Additional Health Concerns Assessment Noted Time PHQ-9 Depression Total Score: 0 07/17/20 10:33 AM EST documented as of this encounter Care Teams Plasma Processor Relationship Specialty Start Date End Date Ashley Frankel MD [address] [place] [address] PCP - General Family Medicine 08/28/18November 11 [facility] 3rd [place] [address] Gastroenterology 07/17/24 Kishore Dorsey MD [address] [place] [address] Urology 07/17/24 Raheel Gee 5 [place], [place] 10[address] Pulmonary Disease 07/17/24 Riya Fulton 11 [facility] [address] [place] [address] Cardiology 07/17/24 Sergio Hackett [address] [place] [address] Orthopaedic Surgery 07/17/24 Dominga Silva, Mehrdad [address] [place] [address] Pharmacist Internal Medicine 07/22/24 documented as of this encounter
--- OUTSIDE RECORDS SUMMARY | 2024-09-30 11:50 | XMS_ITS | Encounter Summary ---
Author Organization [employer] Address [address] [place] [address] 7t [place] [address] Care Team Providers Care Hospital Staff Pharmacist Name Role Phone Ashley Frankel MD Primary Care Provider [phone] Hoang, November Unavailable Kishore Dorsey MD Unavailable [phone] Raheel Gee Unavailable [phone] Riya Fulton Unavailable Sergio Hackett Unavailable Unavailable Dominga Silva PharmD Unavailable Encounter Details Date Type Department Care Team (Late st Contact Info) Description 02/01/2023 Telephone [facility] MEDICINE [address] [place], [place] [phone] Ashley Frankel MD 230 [place], [place] [phone] Social History Tobacco Use Types Packs/Day Years [...] Description 10/24/2024 9:15 AM EST Office Visit [facility] MEDICINE [address] [place] [address] Ashley Frankel MD [address] [place] [address] 12/09/2024 8:00 AM EDT Office Visit [facility] ADULT DENTAL [address] [place] [address] Jackie Peacock documented as of this encounter Visit Diagnoses Not on filedocumented in this encounter Care Teams Hospital Staff Pharmacist Relationship Specialty Start Date End Date Ashley Frankel MD [address] [place] [address] PCP - General Family Medicine 08/28/18 Viktor Sonya 11 [facility] 3rd [place] [address] Gastroenterology 07/17/24 Kishore Dorsey MD [address] [facility] [address] [place] [address] Urology 07/17/24 Raheel Gee 5 [place], [place] 1040 Pulmonary Disease 07/17/24 Riya Fulton 11 [facility] [address] [place] [address] Cardiology 07/17/24 Sergio Hackett [address] [place] [address] Orthopaedic Surgery 07/17/24 Dominga Silva, Mehrdad [address] [place] [address] Pharmacist Internal Medicine 07/22/24 documented as of this encounter
--- OUTSIDE RECORDS SUMMARY | 2024-09-30 11:50 | XMS_ITS | Encounter Summary ---
Author Organization [employer] Address [address] [place] [address] 7t [place] [address] Care Team Providers Care Farmworker General Name Role Phone Ashley Frankel MD Primary Care Provider [phone] Viktor November Unavailable Kishore Dorsey MD Unavailable [phone] Raheel Gee Unavailable [phone] Riya Fulton Unavailable Sergio Hackett Unavailable Unavailable Dominga Silva PharmD Unavailable Reason for Visit * Reason Onset Date Comments Nurse Triage 09/27/2024 Encounter Details Date Type Department Care Team (Late st Contact Info) Description 09/27/2024 Telephone [facility] MEDICINE [address] [place] [address] Ashley Frankel MD 230 [place], [place] [phone] Nurse Triage Social History Tobacco Use Types Packs/Day Years [...] the past 12 months, has t he [employer], gas, oil or water [employer] threatened to shut off services in your [...] encounter Miscellaneous Notes * Telephone Encounter - Hannah Ang RN - 09/27/2024 10:20 AM EST Call returned to Bobby Velasco to triage below. Reports having right lower back pain x 3 days. Pt states pain radiating to right leg. No numbness. Pt denies any pain with passing urine, odor or dark color. Pt pt having intermittent pelvic pain. Pt denies any N/V , diarrhea or consitpation. Denies any fever. Pt advised of disposition, agrees to seek [facility] for exam as no sick on site availability on [facility] at time of call. Reviewed [facility] hours for today and tomorrow. Reviewed [facility] operating hours and that wait times vary. Reviewed home care advise, ER precautions and reasons to call back. Protocol Used: Flank Pain (Adult) Protocol-Based Disposition: See in Office or Video Visit Today Video visit offer not recorded Positive Triage Question: * Diabetes mellitus or weak immune system (e.g., HIV positive, cancer chemo, splenectomy, organ transplant, chronic steroids) (Exception: Mild pain that is only present with movement.) * All higher-acuity triage questions were negative Care Advice Discussed: * Reasons To Call Back - Fever over 100.4 F (38.0 C) - Burning with urination or blood in urine - You become worse * Telephone Encounter - Anamaria Payton - 09/27/2024 10:08 AM EST Symptom: (Right lower) Back Pain - Not From Injury Outcome: Transfer to a nurse or provider NOW! Reason: Age over 30: sudden AND severe upper back pain [phone] documented in this encounter Plan of Treatment Upcoming Encounters Date Type Department Care Team (Late st Contact Info) Description 10/24/2024 9:15 AM EST Office Visit [facility] MEDICINE [address] [place] [address] Ashley Frankel MD [address] [place] [address] 12/09/2024 8:00 AM EDT Office Visit [facility] ADULT DENTAL [address] [place] [address] Jackie Peacock documented as of this encounter Visit Diagnoses Not on filedocumented in this encounter Additional Health Concerns Assessment Noted Time PHQ-9 Depression Total Score: 0 07/17/20 10:33 AM EST documented as of this encounter Care Teams Farmworker General Relationship Specialty Start Date End Date Ashley Frankel MD [address] [place] [phone] PCP - General Family Medicine 08/28/18November [address] 3rd [place] [address] Gastroenterology 07/17/24 Kishore Dorsey MD [address] [place] [address] Urology 07/17/24 Raheel Gee 5 [place], [place] 1040 Pulmonary Disease 07/17/24 Riya Fulton 11 [facility] [address] [place] [address] Cardiology 07/17/24 Sergio Hackett [address] [place] [address] Orthopaedic Surgery 07/17/24 Dominga Silva, AnanthD [address] [place] [address] Pharmacist Internal Medicine 07/22/24 documented as of this encounter
== END 2024-09-30 10:50 | disposition home or self-care (01) ==
LOC: HO.US 10:49
PROVIDERS: PCP Family Medicine; Visit Provider Internal Medicine
DX: Z13.89 Encounter for screening for other disorder (principal)
CPT/HCPCS: 76770

== ENCOUNTER → 2024-09-30 10:54 | Outpatient (BNV) | payer OTHER, SELFPAY | PROVIDERS: PCP Family Medicine; Visit Provider Radiology Diagnostic Radiology | DX: R31.9 Hematuria, unspecified (principal) | CPT/HCPCS: 76770 ==

== ENCOUNTER 2024-09-30 15:34 | Inpatient (IN) | payer OTHER, SELFPAY ==
--- NOTE | ~2024-09-30 | FL_ITS ---
EXAMINATION: XR FLUOROSCOPY WITH IMAGES CLINICAL INFORMATION: Right ureteral stone, retrograde ureteroscopy. COMPARISON: Retroperitoneal ultrasound dated 09/30/2024. TECHNIQUE: Fluoroscopy provided to: Jennifer Fluoroscopy time: 21.6 seconds. Dose: 5.64 mGy Images: 3 FINDINGS: 3 images obtained during right retrograde ureteroscopy and right ureteral stent placement. Refer to the full operative report for detail. FL/FL guidance in OR IMPRESSION: Fluoroscopic guidance. Electronically signed by: Harrison Patel MD 10/02/2024 10:06 AM [facility]
[2024-09-30 16:15] VITALS: BP 154/83; PULSE 85; RESP 16; TEMP 37.2; O2SAT 97; BMI 27.6
--- NOTE | 2024-09-30 16:16 | ED_ITS ---
HPI - General Adult General Chief complaint: Abdominal Pain Stated complaint: abnormal labs Time Seen by Provider: 09/30/24 20:13 Source: patient Mode of arrival: ambulatory Limitations: no limitations History of Present Illness ED Provider: anand blair NP HPI narrative: Patient is a 59-year-old male who presents emergency department for evaluation. He states he has been experiencing right flank pain for a few months but he thought this was secondary to his sciatica. Over the past weekend; about 4 days ago pain became more severe. He presented to [facility] today had an outpatient ultrasound obtained and states he was called and told to come to emergency department for evaluation of a large kidney stone. He reports that his pain is currently 5/10. He reports some mild dysuria. He denies fevers, chills, nausea, vomiting, abdominal pain, hematuria, urinary frequency/urgency/hesitancy. Related Data Home Medications ?Medication ?Instructions ?Recorded ?Confirmed aspirin 81 mg tablet,delayed 81 mg PO DAILY 08/04/20 09/30/24 release blood sugar diagnostic (FreeStyle #10 ea 06/22/21 03/22/24 Lite Strips) lancets 33 gauge (TRUEplus Lancets) #100 ea 06/22/21 03/22/24 chlorthalidone 25 mg tablet 25 mg PO DAILY 06/09/23 09/30/24 hydroxyzine HCl 25 mg tablet 25 mg PO QID PRN Anxiety 02/09/24 09/30/24 trazodone 50 mg tablet 50 mg PO BEDTIME PRN Insomnia 02/09/24 09/30/24 cetirizine 10 mg tablet (Zyrtec) 10 mg PO DAILY PRN Allergies 06/06/24 09/30/24 albuterol sulfate 90 mcg/actuation 2 puff inhalation Q6H PRN dyspnea 09/30/24 09/30/24 aerosol inhaler fluticasone propionate 50 2 spray intranasal DAILY PRN 09/30/24 09/30/24 mcg/actuation nasal Allergy Symptoms spray,suspension tamsulosin 0.4 mg capsule 0.4 mg PO DAILY 09/30/24 09/30/24 tramadol 50 mg tablet 50 mg PO BEDTIME PRN Pain 09/30/24 09/30/24 atorvastatin 80 mg tablet 80 mg PO DAILY 10/01/24 10/01/24 Previous Rx's ?Medication ?Instructions ?Recorded acetaminophen 500 mg tablet 1,000 mg (2 x 500 mg) PO Q6H PRN 12/16/23 (Tylenol Extra Strength) fever or pain #20 tabs ibuprofen 400 mg tablet 400 mg PO TID PRN fever or pain 12/16/23 #30 tabs terazosin 5 mg capsule 5 mg PO BEDTIME 90 days #90 caps 04/26/24 famotidine 40 mg tablet 40 mg PO DAILY PRN for heartburn 05/08/24 #90 tabs amlodipine 10 mg tablet 10 mg PO DAILY #90 tabs 06/24/24 lisinopril 40 mg tablet 40 mg PO DAILY #90 tabs 07/01/24 meclizine 25 mg tablet 25 mg PO BID PRN dizziness #14 tabs 07/19/24 Allergies Allergy/AdvReac Type Severity Reaction Status Date / Time amoxicillin [AMOXICILLIN] Allergy Severe ANAPHYLAXIS Verified 09/30/24 16:19 Penicillins Allergy Severe UNKNOWN Verified 09/30/24 16:19 REACTION-CHILDHOOD doxycycline [From VIBRAMYCIN] AdvReac Mild DIARRHEA Verified 09/30/24 16:19 Clindamycin HCl Allergy Severe Anaphylaxis Uncoded 09/17/24 11:18 Review of Systems 2 Review of Systems: Yes all other systems are reviewed and are negative PMFSH Past Medical History Attestation statement: The following information was validated with the patient. Source: old records reviewed Medical History Opacity of lung on imaging study Pre-op examination GERD (gastroesophageal reflux disease) Orchialgia Weak urinary stream Asthma Nasal polyps Diabetes HTN (hypertension) Pulmonary nodules Surgical History History of esophagogastroduodenoscopy (EGD) Hx of colonoscopy H/O wrist surgery Family History Family History Father Diabetes Hypertension Mother Hypertension Hyperlipidemia Brother Hypertension Family/Other Kidney stones Prostate cancer Bladder cancer Renal cancer Social History Social History Household Members: None Housing: Apartment Alcohol intake: former Patient Tobacco Use Status: Former Tobacco user Tobacco use type: Cigarette Years Smoked: 30 years Use of substances other than those prescribed or required for medical reasons: No Currently Displaying Signs/Symptoms of Drug Intoxication Withdrawal: No Have you been hit, kicked, punched, or otherwise hurt by someone within the past year? If so, by whom?: No Do you feel safe in your current relationship?: No Current Relationship Is there a partner from a previous relationship who is making you feel unsafe now?: No Advance Directives: No Advance Directives Information Provided: No Do you have a plan to hurt others: No Plan Nutrition Risks: No Nutritional Risk Physical Exam ED Vital Signs: Vital Signs - 24 hr 09/30/24 16:15 09/30/24 20:02 09/30/24 20:43 Temperature 99.0 F 98.5 F 98.2 F Pulse Rate 85 74 57 Respiratory Rate 16 16 17 Blood Pressure 154/83 H 172/95 H 162/95 H Pulse Oximetry 97 98 100 Oxygen Delivery Method Room Air Room Air Room Air BMI result Body Mass Index 27.6 Appearance: Alert.?Oriented to person, place and time. No acute distress.?Normal affect. Eyes: Pupils equal, round and reactive to light.? ENT: Pharynx normal.?? Neck: Normal inspection.? Neck supple.?? CVS: Heart sounds normal. Normal heart rate and rhythm.? Pulses normal.?? Respiratory: No respiratory distress.? Lung sounds clear to auscultation bilaterally?? Abdomen: Soft and non-tender. Normoactive bowel sounds. Positive right CVAT? Skin: Skin warm and dry.? Normal skin color.? ?? Extremities: No lower extremity edema.? Neuro: Moves all extremities spontaneously. Sensation intact bilaterally. Ambulates with normal steady gait. Course Course Course Narrative: This is a Rapid Medical Exam performed in triage by Karyn Granados PA-C. Full HPI, ROS and PE to be performed by primary ED provider. 59yo M w/pmhx GERD, BPH, DM presenting to the ED c/o R flank pain sent in from [facility] due to US today showing Moderate to severe right hydronephrosis with 9 mm stone distal right ureter. PE: nontoxic appearing, ambulating with steady gait Plan: Labs, UA Medications Administered Generic Name Dose Route Start Last Admin Trade Name Freq PRN Reason Stop Dose Admin Insulin Human Lispro 0 unit 10/01/24 07:30 10/01/24 08:16 Insulin Lispro 100 Unit/Ml 3 Ml Vial SUBCUT Not Given QIDACHS [facility] Protocol Sodium Chloride 3 ml 10/01/24 00:00 10/01/24 01:05 0.9 % Sodium Chloride Flush 3 Ml Syringe IVFLUSH 3 ml QSHIFT [facility] Administration Medical Decision Making Medical Decision Making [facility] Narrative: Patient is a 59 year old male past medical history of hypertension, BPH, DM, C diff colitis, hyperlipidemia, asthma who presents emergency department for evaluation of right flank pain as per HPI with outpatient ultrasound revealing kidney stone. Patient follows with Dr. Dorsey from Urology; most recent office visit 09/17/2024 for BPH with urinary obstruction, and erectile dysfunction, no history of kidney stones. Outpatient ultrasound reviewed today shows moderate to severe right hydronephrosis with a [id number] stone in the distal right ureter. He declines analgesia at this time. We will consult with Urology Dr. Dorsey, given size of stone to determine whether he requires admission at this time for procedural treatment; who recommends admission to medicine service given past medical history, NPO after midnight for procedural add on tomorrow. Patient made aware of plan of care and is agreeable. Differential Diagnosis Differential Diagnoses: The differential diagnosis associated with the presentation includes (See narrative above) Admission/Observation Consideration of admission/observation: Escalation of care including admission/observation considered (See narrative above) Consult Healthcare Provider Management of the patient was discussed with: Assembler Brazer (See narrative above) Lab Data [facility] Lab Attestation statement: I reviewed the patient's lab results. CBC shows no leukocytosis, significant anemia thrombocytopenia. No electrolyte derangement. No NESSA. Urinalysis with trace leukocyte esterase otherwise without compelling evidence to suggest acute urinary tract infection. 10/01/24 05:34 10/01/24 05:34 Labs: Lab Results 09/30/24 Range/Units 16:26 WBC 7.2 (4.8-10.8) X10*3/uL RBC 4.65 (4.60-5.80) X10*6/uL Hgb 14.2 (14.0-18.0) g/dl Hct 41.0 L (42.0-52.0) % MCV 88.2 (80.0-98.0) fL MCH 30.5 (27.0-33.0) pg MCHC 34.6 (31.0-36.0) g/dl RDW 13.0 (11.0-16.0) % Plt Count 273 D (160-400) X10*3/uL MPV 10.4 (9.4-12.4) fL Immature Gran % (Auto) 0.3 (0.0-0.4) % Neut % (Auto) 68.9 (45-73) % Lymph % (Auto) 21.1 (20-40) % [place] % (Auto) 8.1 (2-11) % Eos % (Auto) 1.0 (0-4) % Baso % (Auto) 0.6 (0-2) % Lymph # (Auto) 1.5 (1.2-4.9) X10*3/uL [place] # (Auto) 0.6 (0.1-1.2) X10*3/uL Eos # (Auto) 0.1 (0.0-0.4) X10*3/uL Baso # (Auto) 0.0 (0.0-0.2) X10*3/uL Abs Immat Gran (auto) 0.02 (0.00-0.03) X10*3/uL Absolute Neuts (auto) 4.9 (2.0-8.3) x10*3/uL Absolute Nucleated RBC 0.000 (0.0-0.012) X10*3/uL Nucleated RBC % (auto) 0.0 (0.0-0.2) /100WBC PT 11.3 (10.9-12.4) SEC INR 1.0 (0.9-1.1) Sodium 141 (135-145) mmol/L Potassium 3.6 (3.3-5.1) mmol/L Chloride 108 (96-108) mmol/L Carbon Dioxide 25 (22-29) mmol/L Anion Gap 12 (12-20) BUN 14 (9-16) mg/dL Creatinine 0.93 (0.5-1.4) mg/dL Estim Creat Clear Calc 85.6 Estimated GFR > 60 Random Glucose 125 H (60-115) mg/dL Calcium 9.6 (8.4-10.2) mg/dL Magnesium 1.9 (1.6-2.6) mg/dL Total Bilirubin 0.9 (0.0-1.0) mg/dL Direct Bilirubin 0.2 (0.0-0.5) mg/dL AST 25 (5-37) U/L ALT 12 (0-40) U/L Alkaline Phosphatase 94 (39-117) U/L Total Protein 7.8 (6.5-8.0) g/dL Albumin 4.5 (3.5-5.0) g/dL Lipase 35 (8-78) U/L Urine Color Yellow Urine Appearance Clear Urine pH 5.5 (5.0-9.0) Ur Specific [place] <= 1.005 (1.005-1.025) Urine Protein Negative (Neg-Trace) mg/dL Urine Glucose (UA) Negative (Negative) mg/dL Urine Ketones Trace (Negative) mg/dL Urine Blood Negative (Negative) Urine Nitrite Negative (Negative) Ur Leukocyte Esterase Trace H (Negative) Urine RBC 0-2 (0-2) /HPF Urine WBC 0-5 (0-5) /HPF Ur Squamous Epith Cells 0-2 (0-2) /HPF Urine Bacteria None Seen (None Seen) Hyaline Casts 0-2 (0-2) /LPF External Record Review External record reviewed: Prior outpatient radiology (See narrative above) Chronic Conditions Patient?s care impacted by: Other (See narrative above) Discharge Plan Discharge Clinical Impression: Renal calculus, right Patient Disposition: Admitted As Inpatient Interventions: Admission Worksheet (ED) Last Done: 09/30/24 23:56 Discharge Date/Time: 10/01/24 00:49
[2024-09-30 16:29] LABS: MANUAL DIFF FLAG NO
[2024-09-30 16:31] LABS: Basophils Percent Auto 0.6 % (0-2); Eosinophils Absolute Auto 0.1 X10*3/uL (0.0-0.4); Hemoglobin 14.2 g/dl (14.0-18.0); Imm Gran Abs Auto 0.02 X10*3/uL (0.00-0.03); Imm Gran Pct Auto 0.3 % (0.0-0.4); Lymphocytes Absolute Auto 1.5 X10*3/uL (1.2-4.9); Lymphocytes Percent Auto 21.1 % (20-40); Mean Corpuscular HGB Conc 34.6 g/dl (31.0-36.0); Mean Corpuscular Hemoglobin 30.5 pg (27.0-33.0); Mean Corpuscular Volume 88.2 fL (80.0-98.0); Mean Platelet Volume 10.4 fL (9.4-12.4); Monocytes Absolute Auto 0.6 X10*3/uL (0.1-1.2); Monocytes Percent Auto 8.1 % (2-11); Neutrophils Absolute Auto 4.9 x10*3/uL (2.0-8.3); Neutrophils Percent Auto 68.9 % (45-73); Platelet Count 273 X10*3/uL (160-400); Red Blood Count 4.65 X10*6/uL (4.60-5.80); White Blood Count 7.2 X10*3/uL (4.8-10.8)
[2024-09-30 16:40] LABS: Prothrombin Time 11.3 SEC (10.9-12.4)
[2024-09-30 16:42] LABS: Appearance Urine Clear; Color Urine Yellow; Glucose Urine UA Negative (Negative); Leukocyte Esterase Urine Trace (Negative); Nitrite Urine Negative (Negative); PH 5.5 (5.0-9.0); Specific Gravity - Urine <= 1.005 (1.005-1.025); UMIC TRIGGER UACC YES; Urine Blood Negative (Negative); Urine Ketones Trace mg/dL (Negative); Urine Protein Negative (Neg-Trace)
[2024-09-30 16:45] LABS: Alanine Aminotransferase 12 U/L (0-40); Albumin Level 4.5 g/dL (3.5-5.0); Alkaline Phosphatase 94 U/L (39-117); Anion Gap 12 (12-20); Aspartate Amino Transferase 25 U/L (5-37); Bacteria Urine None Seen (None Seen); Bilirubin Direct 0.2 mg/dL (0.0-0.5); Bilirubin Total 0.9 mg/dL (0.0-1.0); Blood Urea Nitrogen 14 mg/dL (9-16); Calcium 9.6 mg/dL (8.4-10.2); Carbon Dioxide 25 mmol/L (22-29); Chloride 108 mmol/L (96-108); Creatinine Clr Calc Pharmacy 85.6; Estimated Glomerular Filt Rate > 60; Glucose Random 125 mg/dL (60-115); Hyaline Casts Urine 0-2 /LPF (0-2); Lipase 35 U/L (8-78); Magnesium 1.9 mg/dL (1.6-2.6); Potassium 3.6 mmol/L (3.3-5.1); RBC Urine 0-2 /HPF (0-2); Sodium 141 mmol/L (135-145); Squamous Epithelial Cell Urine 0-2 /HPF (0-2); Total Protein 7.8 g/dL (6.5-8.0); WBC Urine 0-5 /HPF (0-5)
[2024-09-30 20:02] VITALS: BP 172/95; PULSE 74; RESP 16; TEMP 36.9; O2SAT 98
[2024-09-30 20:43] VITALS: BP 162/95; PULSE 57; RESP 17; TEMP 36.8; O2SAT 100
--- NOTE | 2024-09-30 20:59 | PC.NURSE ---
Out of bed to bathroom. No acute distress.
--- NOTE | 2024-09-30 21:43 | PM.IMHP ---
History of Present Illness Date of Service: 09/30/24 Attending physician on admission: Tank Rees Chief Complaint: R low back pain, ureteral stone Patient is a 59-year-old male with a past medical history significant for HTN, BPH, type 2 diabetes (no medications), history C diff colitis, HLD, mild asthma, who presented to the ED due to right low back pain x4 days, and a renal ultrasound done by his PCP which showed moderate to severe right hydronephrosis with a 9 x 4 x 7 mm stone in the distal right ureter. He reports that his right low back pain has been worsening over the past few days, he thought this was sciatica and he has no history of kidney stones. His pain waxes and wanes, currently 5/10 but can worsen in severity. He denies any urinary symptoms including hematuria, dysuria, frequency or urgency. He also denies any diarrhea, constipation, nausea or vomiting. No headache, shortness of breath, chest pain, runny nose or congestion. Review of Systems Constitutional: Constitutional: Denies body ache(s), Denies chills, Denies fatigue, Denies fever(s) and Denies headache(s) Eyes: Eyes: Denies change in vision ENT: Denies headache(s), Denies nasal congestion, Denies nasal discharge and Denies sore throat Cardiovascular: Cardiovascular: Denies chest pain, Denies rapid heart rate, Denies leg edema, Denies lightheadedness and Denies dyspnea Respiratory: Respiratory: Denies chest congestion, Denies cough, Denies dyspnea and Denies wheezing Gastrointestinal: Gastrointestinal: Denies melena, Denies hematochezia, Denies constipation, Denies diarrhea, Denies nausea and Denies vomiting Genitourinary: Genitourinary: Denies hematuria, Denies difficulty urinating, Denies dysuria, Denies urinary frequency, Denies urinary hesitancy and Denies urinary urgency Musculoskeletal: Musculoskeletal: Reports back pain and Denies myalgias Integumentary/Breasts: Skin/Breast: Denies rash Neurologic: Denies confusion and Denies headache(s) Psychiatric: Psychiatric: Denies confusion Endocrine: Endocrine: Denies fatigue Hematologic/Lymphatic: Hematologic/Lymphatic: Denies easy bleeding and Denies easy bruising Allergic/Immunologic: Allergic/Immunologic: Denies wheezing [facility] Medical History Opacity of lung on imaging study Pre-op examination GERD (gastroesophageal reflux disease) Orchialgia Weak urinary stream Asthma Nasal polyps Diabetes HTN (hypertension) Pulmonary nodules Functional capacity: independent ambulation Family History Father Diabetes Hypertension Mother Hypertension Hyperlipidemia Brother Hypertension Family/Other Kidney stones Prostate cancer Bladder cancer Renal cancer Surgical History History of esophagogastroduodenoscopy (EGD) Hx of colonoscopy H/O wrist surgery Social History Alcohol intake: former Patient Tobacco Use Status: Former Tobacco user Tobacco use type: Cigarette Years Smoked: 30 years Advance Directives: No Advance Directives Information Provided: No Do you have a plan to hurt others: No Plan Narrative: No smoking, alcohol or drug use Meds Allergies Allergy/AdvReac Type Severity Reaction Status Date / Time amoxicillin [AMOXICILLIN] Allergy Severe ANAPHYLAXIS Verified 09/30/24 16:19 Penicillins Allergy Severe UNKNOWN Verified 09/30/24 16:19 REACTION-CHILDHOOD doxycycline [From VIBRAMYCIN] AdvReac Mild DIARRHEA Verified 09/30/24 16:19 Clindamycin HCl Allergy Severe Anaphylaxis Uncoded 09/17/24 11:18 Active Medications: Current Medications Acetaminophen (Acetaminophen 325 Mg Tablet) 975 mg PO Q6H PRN PRN Reason: Pain, Mild 1-3,fever,headache Calcium Carbonate (Calcium Carbonate 750 Mg Tab.Chew) 750 mg PO Q4H PRN PRN Reason: Heartburn Dextrose (Dextrose 50 % 25 Gm/50 Ml Syringe) 25 gm IVPUSH Q15M PRN; Protocol PRN Reason: per Hypoglycemia Standing Ord. Glucose (Glucose Gel 15 Gm Gel..Gram.) 15 gm PO Q15M PRN; Protocol PRN Reason: per Hypoglycemia Standing Ord. Hydromorphone HCl (Hydromorphone Hcl 1 Mg/Ml Syringe) 0.5 mg IVPUSH Q4H PRN; Protocol PRN Reason: Pain, Severe (Pain Scale 7-10) Insulin Human Lispro (Insulin Lispro 100 Unit/Ml 3 Ml Vial) [address] [facility] [address]; Protocol Magnesium Hydroxide (Milk Of Magnesia 30 Ml Oral.Susp) 30 ml PO DAILY PRN PRN Reason: Constipation Melatonin (Melatonin 3 Mg Tablet) 6 mg PO BEDTIME PRN PRN Reason: Insomnia Morphine Sulfate (Morphine Sulfate 4 Mg/Ml Cartridge) 2 mg IVPUSH Q4H PRN; Protocol PRN Reason: Pain, Moderate(Pain Scale 4-6) Ondansetron HCl (Ondansetron Hcl 4 Mg/2 Ml Vial) 4 mg IVPUSH Q8H PRN PRN Reason: Nausea and Vomiting Polyethylene Glycol (Polyethylene Glycol 3350 17 Gm Powd.Pack) 17 gm PO DAILY PRN PRN Reason: Constipation Sodium Chloride (0.9 % Sodium Chloride Flush 3 Ml Syringe) 3 ml IVFLUSH [facility] Home Medications ?Medication ?Instructions ?Recorded ?Confirmed ?Last Taken ?Type aspirin 81 mg tablet,delayed 81 mg PO DAILY 08/04/20 03/22/24 Unknown History release blood sugar diagnostic (FreeStyle #10 ea 06/22/21 03/22/24 Unknown History Lite Strips) lancets 33 gauge (TRUEplus Lancets) #100 ea 06/22/21 03/22/24 Unknown History omeprazole 20 mg capsule,delayed 20 mg PO DAILY 08/15/22 03/22/24 Unknown History release chlorthalidone 25 mg tablet mg PO 06/09/23 03/22/24 Unknown History hydroxyzine HCl 25 mg tablet 25 mg PO QID 02/09/24 03/22/24 Unknown History trazodone 50 mg tablet 50 mg PO BEDTIME 02/09/24 03/22/24 Unknown History atorvastatin 40 mg tablet 40 mg PO ONCE 06/06/24 Unknown History cetirizine 10 mg tablet (Zyrtec) 10 mg PO DAILY PRN 06/06/24 Unknown History sertraline 25 mg tablet 25 mg PO DAILY 06/06/24 Unknown History tamsulosin 0.4 mg capsule 0.4 mg PO DAILY 09/30/24 Unknown History tramadol 50 mg tablet mg 09/30/24 Unknown History Physical Exam Vital Signs and Narrative: Vital Signs: Last Vital Signs Temp 98.2 F 09/30/24 20:43 Pulse 57 09/30/24 20:43 Resp 17 09/30/24 20:43 BP 162/95 H 09/30/24 20:43 Pulse Ox 100 09/30/24 20:43 O2 Del Method Room Air 09/30/24 20:43 BMI result Body Mass Index 27.6 General: AOx3, no acute distress Resp: CTA bilaterally CVS: S1, S2, RRR GI/: +BS, NT, no distention, R CVAT Skin: Warm, dry Neuro: Cranial nerves II-XII grossly intact bilaterally. Motor grossly intact bilaterally Extremities: No LE edema Psych: Appropriate affect Const: General: No confusion Orientation/consciousness: No confusion Neuro: General: No confusion Results Labs 09/30/24 16:26 09/30/24 16:26 Labs: Laboratory Results - last 24 hr 09/30/24 16:26 MCV 88.2 MCH 30.5 MCHC 34.6 RDW 13.0 Plt Count 273 D MPV 10.4 Immature Gran % (Auto) 0.3 Neut % (Auto) 68.9 Lymph % (Auto) 21.1 [place] % (Auto) 8.1 Eos % (Auto) 1.0 Baso % (Auto) 0.6 Lymph # (Auto) 1.5 [place] # (Auto) 0.6 Eos # (Auto) 0.1 Baso # (Auto) 0.0 Abs Immat Gran (auto) 0.02 Absolute Neuts (auto) 4.9 Absolute Nucleated RBC 0.000 Nucleated RBC % (auto) 0.0 PT 11.3 INR 1.0 Anion Gap 12 Estim Creat Clear Calc 85.6 Estimated GFR > 60 Random Glucose 125 H Calcium 9.6 Magnesium 1.9 Total Bilirubin 0.9 Direct Bilirubin 0.2 AST 25 ALT 12 Alkaline Phosphatase 94 Total Protein 7.8 Albumin 4.5 Lipase 35 Urine Color Yellow Urine Appearance Clear Urine pH 5.5 Ur Specific [place] <= 1.005 Urine Protein Negative Urine Glucose (UA) Negative Urine Ketones Trace Urine Blood Negative Urine Nitrite Negative Ur Leukocyte Esterase Trace H Urine RBC 0-2 Urine WBC 0-5 Ur Squamous Epith Cells 0-2 Urine Bacteria None Seen Hyaline Casts 0-2 Assessment and Plan (1) Hydronephrosis due to obstruction of ureter: Status: Acute (2) Ureteral calculus, right: Status: Acute Plan Patient is a 59-year-old male with a past medical history significant for HTN, BPH, type 2 diabetes (no medications), history C diff colitis, HLD, mild intermittent asthma, who presented to the ED due to right low back pain x4 days, and a renal ultrasound done by his PCP which showed moderate to severe right hydronephrosis with a 9 x 4 x 7 mm stone in the distal right ureter. Hydronephrosis due to right ureteral calculus, large - CBC normal, UA negative, no sign of infection - retroperitoneal ultrasound with moderate to severe right hydronephrosis with 9 mm stone distal right ureter - urology recommended admission and surgery tomorrow - NPO after midnight - pain management with Tylenol, morphine and Dilaudid as needed - urology consult - monitor CBC and BMP Type 2 diabetes - sliding scale insulin - diabetic diet once off NPO HTN - continue home meds BPH - continue home meds HLD - continue home meds Mild intermittent asthma without acute exacerbation - continue albuterol as needed Med rec not complete upon admission Full code VTE prophylaxis: Pneumoboots Patient with hydronephrosis secondary to large right ureteral calculus requiring admission for surgical intervention tomorrow. Quality Stroke Does the patient have a stroke diagnosis?: No VTE Prior VTE?: No VTE Risk Level:: Medical - moderate - high VTE Device Contraindication: N/A - Device Ordered VTE Drug Contraindication: Treatment Not Indicated
--- NOTE | 2024-09-30 22:30 | PHA.MEDREC ---
Addendum entered by Fei Gtz 10/01/24 09:45: reviewed Addendum entered by Yolie Sofia 10/01/24 09:15: Fallowing up from 09/30/24 night time med rec. Spoke to patient to confirm Atorvastatin dose. patient states he only takes it sometime because he forgets to take it, however he should be taking it everyday. Patient states he wasn't sure of the dose. patient said what ever claims has is what I takes . Claims has Atorvastatin 80 mg daily. med rec updated to reflect claims. Addendum entered by Nerissa Daugherty RPh 09/30/24 23:03: Med rec reviewed by [facility]. Left note for morning med rec team to check with patient about the dose of atorvastatin and how is he taking it as needed (?). Original Note: Pharmacy Consult ? Medication Reconciliation Pharmacy has completed the medication reconciliation. Spoke with patient and he confirmed his medications. He stated he is taking his Atorvastatin 40mg tab as needed if his cholesterol levels get too high. He also confirmed he is taking the Famotidine 40mg tab as needed for onset heartburn. He states he only took Amlodipine 10mg tab this morning and everything else he took yesterday.
[2024-09-30 22:39] VITALS: BP 138/75; PULSE 75; RESP 17; TEMP 36.6; O2SAT 98
[2024-10-01] VITALS (13 sets, daily range): BP systolic 124–176; BP diastolic 69–85; PULSE 51–100; RESP 16–20; TEMP 36.1–37.3; O2SAT 94–99; BMI 26.7
[2024-10-01] MEDS: 0.9 % Sodium Chloride Flush 3 ML SYRINGE IVFLUSH (01:05)
[2024-10-01 06:57] LABS: MANUAL DIFF FLAG NO
[2024-10-01 06:59] LABS: Basophils Percent Auto 0.5 % (0-2); Eosinophils Absolute Auto 0.1 X10*3/uL (0.0-0.4); Eosinophils Percent Auto 2.1 % (0-4); Hematocrit 38.8 % (42.0-52.0); Hemoglobin 13.2 g/dl (14.0-18.0); Imm Gran Abs Auto 0.01 X10*3/uL (0.00-0.03); Imm Gran Pct Auto 0.2 % (0.0-0.4); Lymphocytes Absolute Auto 1.9 X10*3/uL (1.2-4.9); Lymphocytes Percent Auto 33.9 % (20-40); Mean Corpuscular Hemoglobin 30.6 pg (27.0-33.0); Mean Platelet Volume 11.1 fL (9.4-12.4); Monocytes Absolute Auto 0.7 X10*3/uL (0.1-1.2); Monocytes Percent Auto 11.8 % (2-11); Neutrophils Absolute Auto 2.9 x10*3/uL (2.0-8.3); Neutrophils Percent Auto 51.5 % (45-73); Platelet Count 258 X10*3/uL (160-400); Red Blood Count 4.31 X10*6/uL (4.60-5.80); Red Cell Distribution Width 12.9 % (11.0-16.0); White Blood Count 5.7 X10*3/uL (4.8-10.8)
[2024-10-01 07:13] LABS: Anion Gap 12 (12-20); Blood Urea Nitrogen 12 mg/dL (9-16); Calcium 9.2 mg/dL (8.4-10.2); Carbon Dioxide 26 mmol/L (22-29); Chloride 108 mmol/L (96-108); Creatinine Clr Calc Pharmacy 83.4; Estimated Glomerular Filt Rate > 60; Glucose Random 94 mg/dL (60-115); Potassium 3.3 mmol/L (3.3-5.1); Sodium 143 mmol/L (135-145)
[2024-10-01 07:50] LABS: Glucose, Whole Blood 110 mg/dL (60-115)
--- NOTE | 2024-10-01 08:46 | P.CNUR_ITS ---
History of Present Illness Consult details Consult date: 10/01/24 Narrative: CC: Right distal ureteric stone with proximal hydro uretero nephrosis Bobby is a 59-year-old male. Past medical history significant for type 2 diabetes, BPH and hypertension. Presented to emergency room with 4 day history right lower back pain. Renal ultrasound completed by primary care shows severe right hydro nephrosis with 9 x 4 x 7 mm stone in the distal ureter. No prior history of kidney stones Pain has cycled between 12/05 and 8. No relieving factors. Denies hematuria, constipation, nausea. Clinical investigation includes calcium 9.2, creatinine 0.88, last HbA1c 6.2. UA trace leuks, trace blood, negative nitrites. WBC 5.7. Plan for intervention with cystoscopy, retrograde, stent placement possible right rigid ureteroscopy. Review of Systems 2 Constitutional: Constitutional: Reports as per HPI and Reports no additional constitutional complaints Cardiovascular: Cardiovascular: Reports as per HPI and Reports no additional cardiovascular complaints Respiratory: Respiratory: Reports as per HPI and Reports no additional respiratory complaints Gastrointestinal: Gastrointestinal: Reports as per HPI and Reports no additional gastrointestinal complaints Genitourinary: Genitourinary: Reports as per HPI Musculoskeletal: Musculoskeletal: Reports no additional musculoskeletal complaints and Reports as per HPI Neurologic: Reports system reviewed and no additional complaints, except as documented and Reports as per HPI [facility] Past Medical History Medical History Opacity of lung on imaging study Pre-op examination GERD (gastroesophageal reflux disease) Orchialgia Weak urinary stream Asthma Nasal polyps Diabetes HTN (hypertension) Pulmonary nodules Family History Family History Father Diabetes Hypertension Mother Hypertension Hyperlipidemia Brother Hypertension Family/Other Kidney stones Prostate cancer Bladder cancer Renal cancer Surgical History Surgical History History of esophagogastroduodenoscopy (EGD) Hx of colonoscopy H/O wrist surgery Social History Social History Household Members: None Housing: Apartment Alcohol intake: former Patient Tobacco Use Status: Former Tobacco user Tobacco use type: Cigarette Years Smoked: 30 years Use of substances other than those prescribed or required for medical reasons: No Have you been hit, kicked, punched, or otherwise hurt by someone within the past year? If so, by whom?: No Do you feel safe in your current relationship?: No Current Relationship Is there a partner from a previous relationship who is making you feel unsafe now?: No Advance Directives: No Advance Directives Information Provided: No Do you have a plan to hurt others: No Plan Nutrition Risks: No Nutritional Risk Meds Allergies Allergy/AdvReac Type Severity Reaction Status Date / Time amoxicillin [AMOXICILLIN] Allergy Severe ANAPHYLAXIS Verified 09/30/24 16:19 Penicillins Allergy Severe UNKNOWN Verified 09/30/24 16:19 REACTION-CHILDHOOD doxycycline [From VIBRAMYCIN] AdvReac Mild DIARRHEA Verified 09/30/24 16:19 Clindamycin HCl Allergy Severe Anaphylaxis Uncoded 09/17/24 11:18 Active Medications: Current Medications Acetaminophen (Acetaminophen 325 Mg Tablet) 975 mg PO Q6H PRN PRN Reason: Pain, Mild 1-3,fever,headache Albuterol Sulfate (Albuterol Sulfate 90 Mcg 8 Gm Inhaler) 2 puff INHALE Q6H PRN PRN Reason: dyspnea Amlodipine Besylate (Amlodipine Besylate 10 Mg Tablet) 10 mg PO DAILY [facility]ARIA; Protocol Calcium Carbonate (Calcium Carbonate 750 Mg Tab.Chew) 750 mg PO Q4H PRN PRN Reason: Heartburn Dextrose (Dextrose 50 % 25 Gm/50 Ml Syringe) 25 gm IVPUSH Q15M PRN; Protocol PRN Reason: per Hypoglycemia Standing Ord. Doxazosin Mesylate (Doxazosin Mesylate 2 Mg Tablet) 4 mg PO BEDTIME [facility] Glucose (Glucose Gel 15 Gm Gel..Gram.) 15 gm PO Q15M PRN; Protocol PRN Reason: per Hypoglycemia Standing Ord. Hydromorphone HCl (Hydromorphone Hcl 1 Mg/Ml Syringe) 0.5 mg IVPUSH Q4H PRN; Protocol PRN Reason: Pain, Severe (Pain Scale 7-10) Hydroxyzine HCl (Hydroxyzine Hcl 25 Mg Tablet) 25 mg PO QID PRN PRN Reason: Anxiety Insulin Human Lispro (Insulin Lispro 100 Unit/Ml 3 Ml Vial) 0 unit SUBCUT QIDACHS [facility]; Protocol Last Admin: 10/01/24 08:16 Dose: Not Given Magnesium Hydroxide (Milk Of Magnesia 30 Ml Oral.Susp) 30 ml PO DAILY PRN PRN Reason: Constipation Melatonin (Melatonin 3 Mg Tablet) 6 mg PO BEDTIME PRN PRN Reason: Insomnia Morphine Sulfate (Morphine Sulfate 4 Mg/Ml Cartridge) 2 mg IVPUSH Q4H PRN; Protocol PRN Reason: Pain, Moderate(Pain Scale 4-6) Ondansetron HCl (Ondansetron Hcl 4 Mg/2 Ml Vial) 4 mg IVPUSH Q8H PRN PRN Reason: Nausea and Vomiting Polyethylene Glycol (Polyethylene Glycol 3350 17 Gm Powd.Pack) 17 gm PO DAILY PRN PRN Reason: Constipation Sodium Chloride (0.9 % Sodium Chloride Flush 3 Ml Syringe) 3 ml IVFLUSH QSHIFT [facility] Last Admin: 10/01/24 01:05 Dose: 3 ml Tamsulosin HCl (Tamsulosin Hcl 0.4 Mg Capsule) 0.4 mg PO DAILY [facility] Trazodone HCl (Trazodone Hcl 50 Mg Tablet) 50 mg PO BEDTIME PRN PRN Reason: Insomnia Home Medications ?Medication ?Instructions ?Recorded ?Confirmed ?Last Taken ?Type aspirin 81 mg tablet,delayed 81 mg PO DAILY 08/04/20 09/30/24 09/29/24 History release blood sugar diagnostic (FreeStyle #10 ea 06/22/21 03/22/24 Unknown History Lite Strips) lancets 33 gauge (TRUEplus Lancets) #100 ea 06/22/21 03/22/24 Unknown History chlorthalidone 25 mg tablet 25 mg PO DAILY 06/09/23 09/30/24 09/29/24 History hydroxyzine HCl 25 mg tablet 25 mg PO QID PRN Anxiety 02/09/24 09/30/24 Unknown History trazodone 50 mg tablet 50 mg PO BEDTIME PRN Insomnia 02/09/24 09/30/24 Unknown History atorvastatin 40 mg tablet 40 mg PO ONCE PRN High Cholesterol 06/06/24 Unknown History Levels cetirizine 10 mg tablet (Zyrtec) 10 mg PO DAILY PRN Allergies 06/06/24 09/30/24 Unknown History albuterol sulfate 90 mcg/actuation 2 puff inhalation Q6H PRN dyspnea 09/30/24 09/30/24 Unknown History aerosol inhaler fluticasone propionate 50 2 spray intranasal DAILY PRN 09/30/24 09/30/24 Unknown History mcg/actuation nasal Allergy Symptoms spray,suspension tamsulosin 0.4 mg capsule 0.4 mg PO DAILY 09/30/24 09/30/24 09/29/24 History tramadol 50 mg tablet 50 mg PO BEDTIME PRN Pain 09/30/24 09/30/24 Unknown History Physical Exam 2 Vital Signs: Vital Signs: Last Vital Signs Temp 98.6 F 10/01/24 07:29 Pulse 59 10/01/24 07:29 Resp 16 10/01/24 07:29 BP 158/79 H 10/01/24 07:29 Pulse Ox 97 10/01/24 07:29 O2 Del Method Room Air 10/01/24 07:29 BMI result Body Mass Index 26.7 Const: General: cooperative, healthy appearing, comfortable and no acute distress Orientation/consciousness: patient oriented x3 HEENT: Face and sinus: Yes normal facial exam Mouth: moist mucous membranes Neck: Neck: Yes normal visual inspection, Yes full ROM and Yes trachea midline Chest: Chest palpation & inspection: normal inspection of the chest Resp: Effort & Inspection: normal respiratory effort, able to speak in complete sentences and no respiratory distress GI: Inspection: Yes normal to inspection Back/Spine/Pelvis: Cervical Spine: normal cervical lordosis Thoracic/Lumbar Spine: thoracic and lumbar spine normal to inspection Skin: General skin exam: no rashes or lesions noted Neuro: General: patient oriented x3, tone normal and moves all extremities Extrem: General: Yes normal to inspection and Yes capillary refill normal Results Labs 10/01/24 05:34 10/01/24 05:34 Labs: Abnormal lab results 09/30/24 10/01/24 Range/Units 16:26 05:34 RBC 4.31 L (4.60-5.80) X10*6/uL Hgb 13.2 L (14.0-18.0) g/dl Hct 41.0 L 38.8 L (42.0-52.0) % [place] % (Auto) 11.8 H (2-11) % Random Glucose 125 H (60-115) mg/dL Ur Leukocyte Esterase Trace H (Negative) Short CBC 09/30/24 10/01/24 Range/Units 16:26 05:34 WBC 7.2 5.7 (4.8-10.8) X10*3/uL Hgb 14.2 13.2 L (14.0-18.0) g/dl Hct 41.0 L 38.8 L (42.0-52.0) % Plt Count 273 D 258 (160-400) X10*3/uL BMP 09/30/24 10/01/24 16:26 05:34 Sodium 141 143 Potassium 3.6 3.3 Chloride 108 108 Carbon Dioxide 25 26 BUN 14 12 Creatinine 0.93 0.88 Calcium 9.6 9.2 Liver Function 09/30/24 Range/Units 16:26 Total Bilirubin 0.9 (0.0-1.0) mg/dL Direct Bilirubin 0.2 (0.0-0.5) mg/dL AST 25 (5-37) U/L ALT 12 (0-40) U/L Alkaline Phosphatase 94 (39-117) U/L Albumin 4.5 (3.5-5.0) g/dL Urine 09/30/24 Range/Units 16:26 Urine Color Yellow Urine Appearance Clear Urine pH 5.5 (5.0-9.0) Ur Specific [place] <= 1.005 (1.005-1.025) Urine Protein Negative (Neg-Trace) mg/dL Urine Glucose (UA) Negative (Negative) mg/dL All other labs normal. Assessment and Plan (1) Ureteral calculus, right: Status: Acute (2) Hydronephrosis due to obstruction of ureter: Status: Acute Plan Ureteroscopy We discussed the nature of the decision and reasonable alternatives for performing ureteroscopy. Options such as medical therapy were discussed. Interventions include chemical dissolution, ESWL, ureteroscopy with laser lithotripsy and stent placement, PCNL. The relative uncertainties and benefits related to each alternate procedure were adequately discussed. General surgical risks including, but not limited to - pain, bleeding, infection, myocardial infarction, pulmonary embolus, deep vein thrombosis and cerebrovascular accident which may result in further hospitalization were discussed. Full disclosure of the procedure as well as all major risks, benefits and complications were discussed including but not limited to damage to the urethra, bladder and kidney infection, damage to the ureter, stent migration or malposition, scarring to the renal pelvis, remnant stone fragments, subsequent stone passage with need for secondary procedures. The overall secondary procedure rate is approximately 10-15%. The overall clearance rate is approximately 90-95%. Success of the procedure in the short-term does not necessarily guarantee that long-term success will be maintained. Suitable follow up will need to be maintained. The patient showed understanding of discussion and wishes to proceed with - cystoscopy, retrograde, ureteroscopy, possible lithotripsy/stone basketing and stent on the right side Procedures Date of Service Date of Service: 10/01/24
--- NOTE | 2024-10-01 10:30 | PC.NURSE ---
Ciprofloxacin Lactate ordered by Dr. Rodriguez this morning. Medication is to be administered in pre-op per Dr. Rodriguez. RN to RN handoff report given to pre-op nurse Nolan Moctezuma
--- NOTE | 2024-10-01 11:21 | MHC.CM.PN ---
pt is indepedent ,lives alone has no services has own ride home dc plan home no services
[2024-10-01 11:24] LABS: Glucose, Whole Blood 135 mg/dL (60-115)
[2024-10-01] MEDS: Lactated Ringers 1,000 ML 100 ML IVCONT (12:44)
--- NOTE | 2024-10-01 13:36 | PC.NURSE ---
20g left forearm. intact, no leaking. flushed patently.
--- NOTE | 2024-10-01 13:44 | HO.PM.IMPN ---
Subjective Subjective Date of Service: 10/01/24 Interval History: right backpain ,urteral stone Review of Systems pain seems somewhat improving no fevers Physical Exam Vital Signs: Vital Signs: Last Vital Signs Temp 99.1 F 10/01/24 13:33 Pulse 52 10/01/24 13:33 Resp 16 10/01/24 13:33 BP 176/73 H 10/01/24 13:33 Pulse Ox 98 10/01/24 13:33 O2 Del Method Room Air 10/01/24 13:33 BMI result Body Mass Index 26.7 Appearance: Alert.? Oriented X3.? cvs: rrr, [id number]. res: clear to auscultation ,no rhonchii or wheezing abd: no rebound or guarding ,nt, bs present. Gu: right flank pain ext pulses present , no cyanosis . neuro: axo3 , nonfocal. Objective Data Active Medications Acetaminophen (Acetaminophen 325 Mg Tablet) 975 mg PO Q6H PRN PRN Reason: Pain, Mild 1-3,fever,headache Albuterol Sulfate (Albuterol Sulfate 90 Mcg 8 Gm Inhaler) 2 puff INHALE Q6H PRN PRN Reason: dyspnea Amlodipine Besylate (Amlodipine Besylate 10 Mg Tablet) 10 mg PO DAILY [facility]; Protocol Calcium Carbonate (Calcium Carbonate 750 Mg Tab.Chew) 750 mg PO Q4H PRN PRN Reason: Heartburn Dextrose (Dextrose 50 % 25 Gm/50 Ml Syringe) 25 gm IVPUSH Q15M PRN; Protocol PRN Reason: per Hypoglycemia Standing Ord. Doxazosin Mesylate (Doxazosin Mesylate 2 Mg Tablet) 4 mg PO BEDTIME [facility] Glucose (Glucose Gel 15 Gm Gel..Gram.) 15 gm PO Q15M PRN; Protocol PRN Reason: per Hypoglycemia Standing Ord. Hydromorphone HCl (Hydromorphone Hcl 1 Mg/Ml Syringe) 0.5 mg IVPUSH Q4H PRN; Protocol PRN Reason: Pain, Severe (Pain Scale 7-10) Hydroxyzine HCl (Hydroxyzine Hcl 25 Mg Tablet) 25 mg PO QID PRN PRN Reason: Anxiety Lactated Ringer's (Lr) 1,000 mls @ 100 mls/hr IVCONT .Q10H [facility] Last Admin: 10/01/24 12:44 Dose: 100 mls/hr Documented By: DEBORAH Insulin Human Lispro (Insulin Lispro 100 Unit/Ml 3 Ml Vial) 0 unit SUBCUT QIDACHS [facility]; Protocol Last Admin: 10/01/24 11:28 Dose: Not Given Documented By: DEBORAH Non-Admin Reason: No Insulin Coverage Magnesium Hydroxide (Milk Of Magnesia 30 Ml Oral.Susp) 30 ml PO DAILY PRN PRN Reason: Constipation Melatonin (Melatonin 3 Mg Tablet) 6 mg PO BEDTIME PRN PRN Reason: Insomnia Morphine Sulfate (Morphine Sulfate 4 Mg/Ml Cartridge) 2 mg IVPUSH Q4H PRN; Protocol PRN Reason: Pain, Moderate(Pain Scale 4-6) Ondansetron HCl (Ondansetron Hcl 4 Mg/2 Ml Vial) 4 mg IVPUSH Q8H PRN PRN Reason: Nausea and Vomiting Polyethylene Glycol (Polyethylene Glycol 3350 17 Gm Powd.Pack) 17 gm PO DAILY PRN PRN Reason: Constipation Sodium Chloride (0.9 % Sodium Chloride Flush 3 Ml Syringe) [facility] Last Admin: 10/01/24 11:28 Dose: Not Given Documented By: DEBORAH Non-Admin Reason: Previously Administered Tamsulosin HCl (Tamsulosin Hcl 0.4 Mg Capsule) 0.4 mg PO DAILY [facility] Trazodone HCl (Trazodone Hcl 50 Mg Tablet) 50 mg PO BEDTIME PRN PRN Reason: Insomnia Labs 10/01/24 05:34 10/01/24 05:34 Labs: Laboratory Results - last 24 hr 09/30/24 10/01/24 10/01/24 16:26 05:34 07:24 MCV 88.2 90.0 MCH 30.5 30.6 MCHC 34.6 34.0 RDW 13.0 12.9 Plt Count 273 D 258 MPV 10.4 11.1 Immature Gran % (Auto) 0.3 0.2 Neut % (Auto) 68.9 51.5 Lymph % (Auto) 21.1 33.9 [place] % (Auto) 8.1 11.8 H Eos % (Auto) 1.0 2.1 Baso % (Auto) 0.6 0.5 Lymph # (Auto) 1.5 1.9 [place] # (Auto) 0.6 0.7 Eos # (Auto) 0.1 0.1 Baso # (Auto) 0.0 0.0 Abs Immat Gran (auto) 0.02 0.01 Absolute Neuts (auto) 4.9 2.9 Absolute Nucleated RBC 0.000 0.000 Nucleated RBC % (auto) 0.0 0.0 PT 11.3 INR 1.0 Anion Gap 12 12 Estim Creat Clear Calc 85.6 83.4 Estimated GFR > 60 > 60 POC Glucose 110 Random Glucose 125 H 94 Calcium 9.6 9.2 Magnesium 1.9 Total Bilirubin 0.9 Direct Bilirubin 0.2 AST 25 ALT 12 Alkaline Phosphatase 94 Total Protein 7.8 Albumin 4.5 Lipase 35 Urine Color Yellow Urine Appearance Clear Urine pH 5.5 Ur Specific [place] <= 1.005 Urine Protein Negative Urine Glucose (UA) Negative Urine Ketones Trace Urine Blood Negative Urine Nitrite Negative Ur Leukocyte Esterase Trace H Urine RBC 0-2 Urine WBC 0-5 Ur Squamous Epith Cells 0-2 Urine Bacteria None Seen Hyaline Casts 0-2 10/01/24 11:13 MCV MCH MCHC RDW Plt Count MPV Immature Gran % (Auto) Neut % (Auto) Lymph % (Auto) [place] % (Auto) Eos % (Auto) Baso % (Auto) Lymph # (Auto) [place] # (Auto) Eos # (Auto) Baso # (Auto) Abs Immat Gran (auto) Absolute Neuts (auto) Absolute Nucleated RBC Nucleated RBC % (auto) PT INR Anion Gap Estim Creat Clear Calc Estimated GFR POC Glucose 135 H Random Glucose Calcium Magnesium Total Bilirubin Direct Bilirubin AST ALT Alkaline Phosphatase Total Protein Albumin Lipase Urine Color Urine Appearance Urine pH Ur Specific [place] Urine Protein Urine Glucose (UA) Urine Ketones Urine Blood Urine Nitrite Ur Leukocyte Esterase Urine RBC Urine WBC Ur Squamous Epith Cells Urine Bacteria Hyaline Casts Assessment and Plan (1) Renal calculus, right: Status: Acute Assessment and Plan: 59-year-old male with a past medical history significant for HTN, BPH, type 2 diabetes (no medications), history C diff colitis, HLD, mild intermittent asthma, who presented to the ED due to right low back pain x4 days, and a renal ultrasound done by his PCP which showed moderate to severe right hydronephrosis with a 9 x 4 x 7 mm stone in the distal right ureter. Hydronephrosis due to right ureteral calculus, large CBC normal, UA negative, no sign of infection retroperitoneal ultrasound with moderate to severe right hydronephrosis with 9 mm stone distal right ureter plan: npo , pain management with Tylenol, morphine and Dilaudid as needed ivf urology procedure today. Type 2 diabetes - sliding scale insulin - diabetic diet once off NPO HTN - continue home meds BPH - continue home meds HLD - continue home meds Mild intermittent asthma without acute exacerbation - continue albuterol as needed Med rec not complete upon admission Full code VTE prophylaxis: Pneumoboots Patient with hydronephrosis secondary to large right ureteral calculus requiring admission for surgical intervention tomorrow. Quality Stroke Does the patient have a stroke diagnosis?: No VTE Prior VTE?: No VTE Risk Level:: Medical - moderate - high VTE Device Contraindication: N/A - Device Ordered VTE Drug Contraindication: Treatment Not Indicated
[2024-10-01] MEDS: Ciprofloxacin Lactate/D5W 400 MG/200 ML PIGGYBACK 200 MG IV (14:17)
[2024-10-01 14:44] LABS: Glucose, Whole Blood 133 mg/dL (60-115)
--- NOTE | 2024-10-01 15:18 | HO.ANESPROP2 ---
FORMERLY [facility], [facility] Active Problems Active Problems: All Active Problems Renal calculus, right (Acute) Hydronephrosis due to obstruction of ureter (Acute) Ureteral calculus, right (Acute) Opacity of lung on imaging study (Acute) Hx of colonoscopy (Acute) Abnormal stress test (Acute) Chest discomfort (Acute) Palpitations (Acute) Hypertension (Acute) Leg pain (Acute) GERD (gastroesophageal reflux disease) (Acute) Rectal bleeding (Acute) BPH w urinary obs/LUTS (Acute) Nocturia more than twice per night (Acute) Sinusitis (Acute) Erectile dysfunction associated with type 2 diabetes mellitus (Acute) History of Clostridioides difficile colitis (Acute) DISH (diffuse idiopathic skeletal hyperostosis) (Acute) High cholesterol (Acute) Hard of hearing (Acute) Asthma (Acute) Nasal polyps (Acute) Pulmonary nodules (Acute) Past Medical History Medical History Opacity of lung on imaging study Pre-op examination GERD (gastroesophageal reflux disease) Orchialgia Weak urinary stream Asthma Nasal polyps Diabetes HTN (hypertension) Pulmonary nodules Functional capacity: independent ambulation Family History Family History Father Diabetes Hypertension Mother Hypertension Hyperlipidemia Brother Hypertension Family/Other Kidney stones Prostate cancer Bladder cancer Renal cancer Family history of problems with anesthesia: No Surgical History Surgical History History of esophagogastroduodenoscopy (EGD) Hx of colonoscopy H/O wrist surgery History of Problems with Anesthesia: Yes Social History Social History Household Members: None Housing: Apartment Alcohol intake: former Patient Tobacco Use Status: Former Tobacco user Tobacco use type: Cigarette Years Smoked: 30 years Use of substances other than those prescribed or required for medical reasons: No Currently Displaying Signs/Symptoms of Drug Intoxication Withdrawal: No Have you been hit, kicked, punched, or otherwise hurt by someone within the past year? If so, by whom?: No Do you feel safe in your current relationship?: No Current Relationship Is there a partner from a previous relationship who is making you feel unsafe now?: No Advance Directives: No Advance Directives Information Provided: No Do you have a plan to hurt others: No Plan Nutrition Risks: No Nutritional Risk Poor oral hygiene: No service: No Meds Allergies Allergy/AdvReac Type Severity Reaction Status Date / Time amoxicillin [AMOXICILLIN] Allergy Severe ANAPHYLAXIS Verified 09/30/24 16:19 Penicillins Allergy Severe UNKNOWN Verified 09/30/24 16:19 REACTION-CHILDHOOD doxycycline [From VIBRAMYCIN] AdvReac Mild DIARRHEA Verified 09/30/24 16:19 Clindamycin HCl Allergy Severe Anaphylaxis Uncoded 09/17/24 11:18 Active Medications: Current Medications Acetaminophen (Acetaminophen 325 Mg Tablet) 975 mg PO Q6H PRN PRN Reason: Pain, Mild 1-3,fever,headache Albuterol Sulfate (Albuterol Sulfate 90 Mcg 8 Gm Inhaler) 2 puff INHALE Q6H PRN PRN Reason: dyspnea Amlodipine Besylate (Amlodipine Besylate 10 Mg Tablet) 10 mg PO DAILY [facility]; Protocol Calcium Carbonate (Calcium Carbonate 750 Mg Tab.Chew) 750 mg PO Q4H PRN PRN Reason: Heartburn Dextrose (Dextrose 50 % 25 Gm/50 Ml Syringe) 25 gm IVPUSH Q15M PRN; Protocol PRN Reason: per Hypoglycemia Standing Ord. Doxazosin Mesylate (Doxazosin Mesylate 2 Mg Tablet) 4 mg PO BEDTIME [facility] Glucose (Glucose Gel 15 Gm Gel..Gram.) 15 gm PO Q15M PRN; Protocol PRN Reason: per Hypoglycemia Standing Ord. Hydromorphone HCl (Hydromorphone Hcl 1 Mg/Ml Syringe) 0.5 mg IVPUSH Q4H PRN; Protocol PRN Reason: Pain, Severe (Pain Scale 7-10) Hydroxyzine HCl (Hydroxyzine Hcl 25 Mg Tablet) 25 mg PO QID PRN PRN Reason: Anxiety Lactated Ringer's (Lr) 1,000 mls @ 100 mls/hr IVCONT .Q10H [facility] Last Admin: 10/01/24 12:44 Dose: 100 mls/hr Insulin Human Lispro (Insulin Lispro 100 Unit/Ml 3 Ml Vial) 0 unit SUBCUT QIDACHS [facility]; Protocol Last Admin: 10/01/24 11:28 Dose: Not Given Magnesium Hydroxide (Milk Of Magnesia 30 Ml Oral.Susp) 30 ml PO DAILY PRN PRN Reason: Constipation Melatonin (Melatonin 3 Mg Tablet) 6 mg PO BEDTIME PRN PRN Reason: Insomnia Morphine Sulfate (Morphine Sulfate 4 Mg/Ml Cartridge) 2 mg IVPUSH Q4H PRN; Protocol PRN Reason: Pain, Moderate(Pain Scale 4-6) Ondansetron HCl (Ondansetron Hcl 4 Mg/2 Ml Vial) 4 mg IVPUSH Q8H PRN PRN Reason: Nausea and Vomiting Polyethylene Glycol (Polyethylene Glycol 3350 17 Gm Powd.Pack) 17 gm PO DAILY PRN PRN Reason: Constipation Sodium Chloride (0.9 % Sodium Chloride Flush 3 Ml Syringe) 3 ml IVFLUSH QSHIFT [facility] Last Admin: 10/01/24 11:28 Dose: Not Given Tamsulosin HCl (Tamsulosin Hcl 0.4 Mg Capsule) 0.4 mg PO DAILY [facility] Trazodone HCl (Trazodone Hcl 50 Mg Tablet) 50 mg PO BEDTIME PRN PRN Reason: Insomnia Home Medications ?Medication ?Instructions ?Recorded ?Confirmed ?Last Taken ?Type aspirin 81 mg tablet,delayed 81 mg PO DAILY 08/04/20 09/30/24 09/29/24 History release blood sugar diagnostic (FreeStyle #10 ea 06/22/21 03/22/24 Unknown History Lite Strips) lancets 33 gauge (TRUEplus Lancets) #100 ea 06/22/21 03/22/24 Unknown History chlorthalidone 25 mg tablet 25 mg PO DAILY 06/09/23 09/30/24 09/29/24 History hydroxyzine HCl 25 mg tablet 25 mg PO QID PRN Anxiety 02/09/24 09/30/24 Unknown History trazodone 50 mg tablet 50 mg PO BEDTIME PRN Insomnia 02/09/24 09/30/24 Unknown History cetirizine 10 mg tablet (Zyrtec) 10 mg PO DAILY PRN Allergies 06/06/24 09/30/24 Unknown History albuterol sulfate 90 mcg/actuation 2 puff inhalation Q6H PRN dyspnea 09/30/24 09/30/24 Unknown History aerosol inhaler fluticasone propionate 50 2 spray intranasal DAILY PRN 09/30/24 09/30/24 Unknown History mcg/actuation nasal Allergy Symptoms spray,suspension tamsulosin 0.4 mg capsule 0.4 mg PO DAILY 09/30/24 09/30/24 09/29/24 History tramadol 50 mg tablet 50 mg PO BEDTIME PRN Pain 09/30/24 09/30/24 Unknown History atorvastatin 80 mg tablet 80 mg PO DAILY 10/01/24 10/01/24 09/29/24 History Exam Height,Weight and Vital Signs: Height 5 ft 7 in Weight 77.4 kg Last Vital Signs Temp 99.1 F 10/01/24 13:33 Pulse 52 10/01/24 13:33 Resp 16 10/01/24 13:33 BP 176/73 H 10/01/24 13:33 Pulse Ox 98 10/01/24 13:33 O2 Del Method Room Air 10/01/24 13:33 Pertinent Lab Results Pertinent Lab Results: Laboratory Tests 09/30/24 10/01/24 10/01/24 16:26 05:34 07:24 WBC 7.2 5.7 RBC 4.65 4.31 L Hgb 14.2 13.2 L Hct 41.0 L 38.8 L MCV 88.2 90.0 MCH 30.5 30.6 MCHC 34.6 34.0 RDW 13.0 12.9 Plt Count 273 D 258 MPV 10.4 11.1 Immature Gran % (Auto) 0.3 0.2 Neut % (Auto) 68.9 51.5 Lymph % (Auto) 21.1 33.9 [place] % (Auto) 8.1 11.8 H Eos % (Auto) 1.0 2.1 Baso % (Auto) 0.6 0.5 Lymph # (Auto) 1.5 1.9 [place] # (Auto) 0.6 0.7 Eos # (Auto) 0.1 0.1 Baso # (Auto) 0.0 0.0 Abs Immat Gran (auto) 0.02 0.01 Absolute Neuts (auto) 4.9 2.9 Absolute Nucleated RBC 0.000 0.000 Nucleated RBC % (auto) 0.0 0.0 PT 11.3 INR 1.0 Sodium 141 143 Potassium 3.6 3.3 Chloride 108 108 Carbon Dioxide 25 26 Anion Gap 12 12 BUN 14 12 Creatinine 0.93 0.88 Estim Creat Clear Calc 85.6 83.4 Estimated GFR > 60 > 60 POC Glucose 110 Random Glucose 125 H 94 Calcium 9.6 9.2 Magnesium 1.9 Total Bilirubin 0.9 Direct Bilirubin 0.2 AST 25 ALT 12 Alkaline Phosphatase 94 Total Protein 7.8 Albumin 4.5 Lipase 35 Urine Color Yellow Urine Appearance Clear Urine pH 5.5 Ur Specific [place] <= 1.005 Urine Protein Negative Urine Glucose (UA) Negative Urine Ketones Trace Urine Blood Negative Urine Nitrite Negative Ur Leukocyte Esterase Trace H Urine RBC 0-2 Urine WBC 0-5 Ur Squamous Epith Cells 0-2 Urine Bacteria None Seen Hyaline Casts 0-2 10/01/24 10/01/24 11:13 14:39 WBC RBC Hgb Hct MCV MCH MCHC RDW Plt Count MPV Immature Gran % (Auto) Neut % (Auto) Lymph % (Auto) [place] % (Auto) Eos % (Auto) Baso % (Auto) Lymph # (Auto) [place] # (Auto) Eos # (Auto) Baso # (Auto) Abs Immat Gran (auto) Absolute Neuts (auto) Absolute Nucleated RBC Nucleated RBC % (auto) PT INR Sodium Potassium Chloride Carbon Dioxide Anion Gap BUN Creatinine Estim Creat Clear Calc Estimated GFR POC Glucose 135 H 133 H Random Glucose Calcium Magnesium Total Bilirubin Direct Bilirubin AST ALT Alkaline Phosphatase Total Protein Albumin Lipase Urine Color Urine Appearance Urine pH Ur Specific [place] Urine Protein Urine Glucose (UA) Urine Ketones Urine Blood Urine Nitrite Ur Leukocyte Esterase Urine RBC Urine WBC Ur Squamous Epith Cells Urine Bacteria Hyaline Casts Airway Mallampati Class: III TM Dist: >3cm Neck ROM: Full Heart: RRR Lungs: CTA Assessment and Plan Assessment Anesthesia Assessment: Anesthesia Plan Discussed and Chart Reviewed Final Anesthetic Review Family History of Problems with Anesthesia: No History of Problems with Anesthesia: Yes NPO: Yes ASA Class: II and Emergency Final Preanesthetic Review: Meds/Allgs Chart Reviewed, Consent Obtained/Reviewed and Anes Risks/Benef Reviewed Patient Risk: Intermediate Procedure Risk: Low Anesthetic Plan Anesthetic Plan: GA Disposition: Standard PACU
--- NOTE | 2024-10-01 15:41 | MHC.SHP ---
Pre-Procedural Eval Section A - 24 Hr Update-Section A only Date of Service: 10/01/24 The patient is an INPATIENT: Yes The patient has been examined within 24 hours of the surgical procedure. The History & Physical has been completed within 30 days and I have reviewed it.: Yes Section B - Complete if H&P > 30 days Chief Complaint: ureteral stone, right hydronephrosis Allergies: Allergies Allergy/AdvReac Type Severity Reaction Status Date / Time amoxicillin [AMOXICILLIN] Allergy Severe ANAPHYLAXIS Verified 09/30/24 16:19 Penicillins Allergy Severe UNKNOWN Verified 09/30/24 16:19 REACTION-CHILDHOOD doxycycline [From VIBRAMYCIN] AdvReac Mild DIARRHEA Verified 09/30/24 16:19 Clindamycin HCl Allergy Severe Anaphylaxis Uncoded 09/17/24 11:18 Plan Diagnosis/Plan: Unchanged I have reviewed the history and physical and performed a pertinent physical examination on my patient. No changes have occurred unless specified. Plan for Cystoscopy, right ureteroscopy, possible laser lithotripsy, possible ureteral stent. Risks discussed included but not limited to, possible need to repeat procedure if stone is not completely fragmented, Irritative voiding symptoms, bladder spasms, urgency, blood in urine. Time Spent With Patient Time: Total time managing care of this patient today ____ minutes.
--- NOTE | 2024-10-01 15:42 | P.CONAN_ITS ---
[facility] Active Problems Active Problems: All Active Problems Renal calculus, right (Acute) Hydronephrosis due to obstruction of ureter (Acute) Ureteral calculus, right (Acute) Opacity of lung on imaging study (Acute) Hx of colonoscopy (Acute) Abnormal stress test (Acute) Chest discomfort (Acute) Palpitations (Acute) Hypertension (Acute) Leg pain (Acute) GERD (gastroesophageal reflux disease) (Acute) Rectal bleeding (Acute) BPH w urinary obs/LUTS (Acute) Nocturia more than twice per night (Acute) Sinusitis (Acute) Erectile dysfunction associated with type 2 diabetes mellitus (Acute) History of Clostridioides difficile colitis (Acute) DISH (diffuse idiopathic skeletal hyperostosis) (Acute) High cholesterol (Acute) Hard of hearing (Acute) Asthma (Acute) Nasal polyps (Acute) Pulmonary nodules (Acute) Past Medical History Medical History Opacity of lung on imaging study Pre-op examination GERD (gastroesophageal reflux disease) Orchialgia Weak urinary stream Asthma Nasal polyps Diabetes HTN (hypertension) Pulmonary nodules Functional capacity: independent ambulation Family History Family History Father Diabetes Hypertension Mother Hypertension Hyperlipidemia Brother Hypertension Family/Other Kidney stones Prostate cancer Bladder cancer Renal cancer Family history of problems with anesthesia: No Surgical History Surgical History History of esophagogastroduodenoscopy (EGD) Hx of colonoscopy H/O wrist surgery History of Problems with Anesthesia: Yes Social History Social History Household Members: None Housing: Apartment Alcohol intake: former Patient Tobacco Use Status: Former Tobacco user Tobacco use type: Cigarette Years Smoked: 30 years Use of substances other than those prescribed or required for medical reasons: No Currently Displaying Signs/Symptoms of Drug Intoxication Withdrawal: No Have you been hit, kicked, punched, or otherwise hurt by someone within the past year? If so, by whom?: No Do you feel safe in your current relationship?: No Current Relationship Is there a partner from a previous relationship who is making you feel unsafe now?: No Advance Directives: No Advance Directives Information Provided: No Do you have a plan to hurt others: No Plan Nutrition Risks: No Nutritional Risk Poor oral hygiene: No service: No Meds Allergies Allergy/AdvReac Type Severity Reaction Status Date / Time amoxicillin [AMOXICILLIN] Allergy Severe ANAPHYLAXIS Verified 09/30/24 16:19 Penicillins Allergy Severe UNKNOWN Verified 09/30/24 16:19 REACTION-CHILDHOOD doxycycline [From VIBRAMYCIN] AdvReac Mild DIARRHEA Verified 09/30/24 16:19 Clindamycin HCl Allergy Severe Anaphylaxis Uncoded 09/17/24 11:18 Active Medications: Current Medications Acetaminophen (Acetaminophen 325 Mg Tablet) 975 mg PO Q6H PRN PRN Reason: Pain, Mild 1-3,fever,headache Albuterol Sulfate (Albuterol Sulfate 90 Mcg 8 Gm Inhaler) 2 puff INHALE Q6H PRN PRN Reason: dyspnea Amlodipine Besylate (Amlodipine Besylate 10 Mg Tablet) 10 mg PO DAILY [facility]; Protocol Calcium Carbonate (Calcium Carbonate 750 Mg Tab.Chew) 750 mg PO Q4H PRN PRN Reason: Heartburn Dextrose (Dextrose 50 % 25 Gm/50 Ml Syringe) 25 gm IVPUSH Q15M PRN; Protocol PRN Reason: per Hypoglycemia Standing Ord. Doxazosin Mesylate (Doxazosin Mesylate 2 Mg Tablet) 4 mg PO BEDTIME [facility] Fentanyl (Fentanyl Citrate/Pf 100 Mcg/2 Ml Vial) 25 mcg IVPUSH Q5M PRN PRN Reason: Pain, Moderate to Severe (Pain Scale 4-10) Stop: 10/01/24 21:26 Glucose (Glucose Gel 15 Gm Gel..Gram.) 15 gm PO Q15M PRN; Protocol PRN Reason: per Hypoglycemia Standing Ord. Hydromorphone HCl (Hydromorphone Hcl 1 Mg/Ml Syringe) 0.5 mg IVPUSH Q4H PRN; Protocol PRN Reason: Pain, Severe (Pain Scale 7-10) Hydroxyzine HCl (Hydroxyzine Hcl 25 Mg Tablet) 25 mg PO QID PRN PRN Reason: Anxiety Lactated Ringer's (Lr) 1,000 mls @ 100 mls/hr IVCONT .Q10H [facility] Last Admin: 10/01/24 12:44 Dose: 100 mls/hr Insulin Human Lispro (Insulin Lispro 100 Unit/Ml 3 Ml Vial) 0 unit SUBCUT QIDACHS [facility]; Protocol Last Admin: 10/01/24 11:28 Dose: Not Given Magnesium Hydroxide (Milk Of Magnesia 30 Ml Oral.Susp) 30 ml PO DAILY PRN PRN Reason: Constipation Melatonin (Melatonin 3 Mg Tablet) 6 mg PO BEDTIME PRN PRN Reason: Insomnia Morphine Sulfate (Morphine Sulfate 4 Mg/Ml Cartridge) 2 mg IVPUSH Q4H PRN; Protocol PRN Reason: Pain, Moderate(Pain Scale 4-6) Naloxone HCl (Naloxone Hcl 0.4 Mg/Ml Vial) 0.04 mg IVPUSH Q5M PRN PRN Reason: Excessive sedation or RR < 8 Ondansetron HCl (Ondansetron Hcl 4 Mg/2 Ml Vial) 4 mg IVPUSH Q8H PRN PRN Reason: Nausea and Vomiting Ondansetron HCl (Ondansetron Hcl 4 Mg/2 Ml Vial) 4 mg IVPUSH ONCE PRN PRN Reason: Nausea and Vomiting Stop: 10/01/24 21:26 Polyethylene Glycol (Polyethylene Glycol 3350 17 Gm Powd.Pack) 17 gm PO DAILY PRN PRN Reason: Constipation Sodium Chloride (0.9 % Sodium Chloride Flush 3 Ml Syringe) 3 ml IVFLUSH QSMNFT [facility] Last Admin: 10/01/24 11:28 Dose: Not Given Tamsulosin HCl (Tamsulosin Hcl 0.4 Mg Capsule) 0.4 mg PO DAILY [facility] Trazodone HCl (Trazodone Hcl 50 Mg Tablet) 50 mg PO BEDTIME PRN PRN Reason: Insomnia Home Medications ?Medication ?Instructions ?Recorded ?Confirmed ?Last Taken ?Type aspirin 81 mg tablet,delayed 81 mg PO DAILY 08/04/20 09/30/24 09/29/24 History release blood sugar diagnostic (FreeStyle #10 ea 06/22/21 03/22/24 Unknown History Lite Strips) lancets 33 gauge (TRUEplus Lancets) #100 ea 06/22/21 03/22/24 Unknown History chlorthalidone 25 mg tablet 25 mg PO DAILY 06/09/23 09/30/24 09/29/24 History hydroxyzine HCl 25 mg tablet 25 mg PO QID PRN Anxiety 02/09/24 09/30/24 Unknown History trazodone 50 mg tablet 50 mg PO BEDTIME PRN Insomnia 02/09/24 09/30/24 Unknown History cetirizine 10 mg tablet (Zyrtec) 10 mg PO DAILY PRN Allergies 06/06/24 09/30/24 Unknown History albuterol sulfate 90 mcg/actuation 2 puff inhalation Q6H PRN dyspnea 09/30/24 09/30/24 Unknown History aerosol inhaler fluticasone propionate 50 2 spray intranasal DAILY PRN 09/30/24 09/30/24 Unknown History mcg/actuation nasal Allergy Symptoms spray,suspension tamsulosin 0.4 mg capsule 0.4 mg PO DAILY 09/30/24 09/30/24 09/29/24 History tramadol 50 mg tablet 50 mg PO BEDTIME PRN Pain 09/30/24 09/30/24 Unknown History atorvastatin 80 mg tablet 80 mg PO DAILY 10/01/24 10/01/24 09/29/24 History Exam Height,Weight and Vital Signs: Height 5 ft 7 in Weight 77.4 kg Last Vital Signs Temp 99.1 F 10/01/24 13:33 Pulse 52 10/01/24 13:33 Resp 16 10/01/24 13:33 BP 176/73 H 10/01/24 13:33 Pulse Ox 98 10/01/24 13:33 O2 Del Method Room Air 10/01/24 13:33 Pertinent Lab Results Pertinent Lab Results: Laboratory Tests 09/30/24 10/01/24 10/01/24 16:26 05:34 07:24 WBC 7.2 5.7 RBC 4.65 4.31 L Hgb 14.2 13.2 L Hct 41.0 L 38.8 L MCV 88.2 90.0 MCH 30.5 30.6 MCHC 34.6 34.0 RDW 13.0 12.9 Plt Count 273 D 258 MPV 10.4 11.1 Immature Gran % (Auto) 0.3 0.2 Neut % (Auto) 68.9 51.5 Lymph % (Auto) 21.1 33.9 [place] % (Auto) 8.1 11.8 H Eos % (Auto) 1.0 2.1 Baso % (Auto) 0.6 0.5 Lymph # (Auto) 1.5 1.9 [place] # (Auto) 0.6 0.7 Eos # (Auto) 0.1 0.1 Baso # (Auto) 0.0 0.0 Abs Immat Gran (auto) 0.02 0.01 Absolute Neuts (auto) 4.9 2.9 Absolute Nucleated RBC 0.000 0.000 Nucleated RBC % (auto) 0.0 0.0 PT 11.3 INR 1.0 Sodium 141 143 Potassium 3.6 3.3 Chloride 108 108 Carbon Dioxide 25 26 Anion Gap 12 12 BUN 14 12 Creatinine 0.93 0.88 Estim Creat Clear Calc 85.6 83.4 Estimated GFR > 60 > 60 POC Glucose 110 Random Glucose 125 H 94 Calcium 9.6 9.2 Magnesium 1.9 Total Bilirubin 0.9 Direct Bilirubin 0.2 AST 25 ALT 12 Alkaline Phosphatase 94 Total Protein 7.8 Albumin 4.5 Lipase 35 Urine Color Yellow Urine Appearance Clear Urine pH 5.5 Ur Specific [place] <= 1.005 Urine Protein Negative Urine Glucose (UA) Negative Urine Ketones Trace Urine Blood Negative Urine Nitrite Negative Ur Leukocyte Esterase Trace H Urine RBC 0-2 Urine WBC 0-5 Ur Squamous Epith Cells 0-2 Urine Bacteria None Seen Hyaline Casts 0-2 10/01/24 10/01/24 11:13 14:39 WBC RBC Hgb Hct MCV MCH MCHC RDW Plt Count MPV Immature Gran % (Auto) Neut % (Auto) Lymph % (Auto) [place] % (Auto) Eos % (Auto) Baso % (Auto) Lymph # (Auto) [place] # (Auto) Eos # (Auto) Baso # (Auto) Abs Immat Gran (auto) Absolute Neuts (auto) Absolute Nucleated RBC Nucleated RBC % (auto) PT INR Sodium Potassium Chloride Carbon Dioxide Anion Gap BUN Creatinine Estim Creat Clear Calc Estimated GFR POC Glucose 135 H 133 H Random Glucose Calcium Magnesium Total Bilirubin Direct Bilirubin AST ALT Alkaline Phosphatase Total Protein Albumin Lipase Urine Color Urine Appearance Urine pH Ur Specific [place] Urine Protein Urine Glucose (UA) Urine Ketones Urine Blood Urine Nitrite Ur Leukocyte Esterase Urine RBC Urine WBC Ur Squamous Epith Cells Urine Bacteria Hyaline Casts Airway Mallampati Class: II TM Dist: >3cm Neck ROM: Full Heart: RRR Lungs: CTA Assessment and Plan Assessment Anesthesia Assessment: Anesthesia Plan Discussed Final Anesthetic Review Family History of Problems with Anesthesia: No History of Problems with Anesthesia: Yes NPO: Yes ASA Class: III and Emergency Final Preanesthetic Review: Meds/Allgs Chart Reviewed, Consent Obtained/Reviewed and Anes Risks/Benef Reviewed Patient Risk: Intermediate Procedure Risk: Low Anesthetic Plan Anesthetic Plan: GA Disposition: Standard PACU, Extended PACU, Inp. Admit - Standard Bed and Inp. Admit - ICU
--- NOTE | 2024-10-01 17:29 | W.PM.OPN ---
Operative Note Operative Note Date of Service: 10/01/24 Narrative: PreOperative Diagnosis:?? Right ureteral stone right hydronephrosis Post Operative Diagnosis:?? Right ureteral stone right hydronephrosis Procedure: - Cystoscopy, right retrograde, right ureteroscopy laser lithotripsy stent insertion, 6 [place] by 28 cm Surgeon:?Dr Mayda Rodriguez Anesthesia:? General Indications for procedure: Obstructing right ureteral stone with hydronephrosis, right flank pain. Procedure: After informed consent was verified the patient was brought to the operating placed on the OR table in supine position.? General Anesthesia was administered per protocol.? The patient was placed in lithotomy position, prepped and draped in the usual sterile fashion.? Safety pause time-out and side of surgery confirmed.? Antibiotics confirmed. 2% lidocaine jelly 10 mL was passed transurethrally. A 22 [place] cystoscope was inserted transurethrally, the bulbous urethra was within normal limits. The prostatic urethra was nonobstructive. The bladder was visualized.? Both ureteric orifices were in normal position. An open-ended ureteral catheter was passed into the right ureteral orifice and a retrograde examination was performed. There was a filling defect in the upper thirds of the distal ureter and dilatation of the proximal ureter and renal pelvis and calyces. A guidewire was passed through the ureteral catheter into the kidney. The balloon dilator size 15 fr x 10 cm was passed over the guide-wire the balloon was inflated to 8 mmHg and the intramural ureter was dilated for 30 seconds. The balloon was deflated and removed. After removing the balloon dilator a 2nd guidewire was then passed into the kidney to use as a safety. The cystoscope was removed, leaving both guidewires in place. One guidewire was used as the safety and was attached to the draping. The semi rigid ureteroscope was passed over one of the guidewires to the level of the stone in the ureter. There was significant inflammatory mucosa around the stone. One guidewire was then removed. Laser lithotripsy of the stone was done using the 365 fiber with 0.6 joules by 5 w pulsating setting. There was good fragmentation of the stone. The 0 degree basket was passed through the ureteroscope, stone fragment(s) removed and sent for analysis. The ureteroscope was removed. The cystoscope was passed over the safety guidewire. A? 6 [place] by 28 cm stent was placed into the ureter and renal pelvis under a combination of fluoroscopy and direct visualization. The bladder was emptied.? The rigid cystoscope was removed. ? The patient tolerated the procedure well and was brought to the recovery room in stable condition. Complications: None Drains: Ureteral stent as dictated above
[2024-10-01] MEDS: Phenazopyridine HCL 100 MG TABLET PO (17:46)
[2024-10-01 18:43] LABS: Glucose, Whole Blood 113 mg/dL (60-115)
[2024-10-01] MEDS: Tamsulosin HCL 0.4 MG CAPSULE PO (18:53)
[2024-10-01] MEDS: HYDROmorphone HCl 1 MG/ML SYRINGE 0.5 MG IVPUSH ×2 (19:07→23:14)
[2024-10-01 19:41] LABS: Glucose, Whole Blood 182 mg/dL (60-115)
[2024-10-01] MEDS: Doxazosin Mesylate 2 MG TABLET 4 MG PO (20:11)
[2024-10-02] MEDS: Lactated Ringers 1,000 ML 100 ML IVCONT (01:06)
[2024-10-02 03:36] VITALS: BP 118/68; PULSE 58; RESP 16; TEMP 36.3; O2SAT 99
[2024-10-02 06:05] LABS: MANUAL DIFF FLAG NO
[2024-10-02 06:22] LABS: Basophils Percent Auto 0.5 % (0-2); Eosinophils Absolute Auto 0.1 X10*3/uL (0.0-0.4); Hematocrit 38.8 % (42.0-52.0); Hemoglobin 12.9 g/dl (14.0-18.0); Imm Gran Abs Auto 0.01 X10*3/uL (0.00-0.03); Imm Gran Pct Auto 0.2 % (0.0-0.4); Lymphocytes Absolute Auto 1.2 X10*3/uL (1.2-4.9); Lymphocytes Percent Auto 20.1 % (20-40); Mean Corpuscular HGB Conc 33.2 g/dl (31.0-36.0); Mean Corpuscular Hemoglobin 30.7 pg (27.0-33.0); Mean Corpuscular Volume 92.4 fL (80.0-98.0); Mean Platelet Volume 10.9 fL (9.4-12.4); Monocytes Absolute Auto 0.6 X10*3/uL (0.1-1.2); Monocytes Percent Auto 10.2 % (2-11); Platelet Count 229 X10*3/uL (160-400); Red Cell Distribution Width 13.2 % (11.0-16.0)
[2024-10-02 06:23] LABS: Anion Gap 10 (12-20); Blood Urea Nitrogen 13 mg/dL (9-16); Calcium 8.8 mg/dL (8.4-10.2); Carbon Dioxide 28 mmol/L (22-29); Chloride 107 mmol/L (96-108); Creatinine Clr Calc Pharmacy 69.2; Estimated Glomerular Filt Rate > 60; Glucose Random 182 mg/dL (60-115); Potassium 3.8 mmol/L (3.3-5.1); Sodium 141 mmol/L (135-145)
[2024-10-02 07:27] VITALS: BP 146/79; PULSE 60; RESP 16; TEMP 36.8; O2SAT 98
[2024-10-02 07:49] LABS: Glucose, Whole Blood 139 mg/dL (60-115)
--- NOTE | 2024-10-02 08:09 | HO.POSTANES ---
Post Anesthesia Evaluation Post Anesthesia Evaluation Date of Service: 10/02/24 Vital Signs: Vital Signs Temp Pulse Resp BP Pulse Ox O2 Del Method 10/02/24 07:27 98.2 F 60 16 146/79 H 98 Room Air 10/02/24 03:36 97.4 F 58 16 118/68 99 Room Air 10/01/24 23:47 97.6 F 51 18 124/69 99 Room Air 10/01/24 23:14 16 Anesthesia: General LMA Mental Status: Awake Pain Control: Satisfactory Nausea/Vomiting: None Hydration: Adequate Anesthesia-Related Issues: No Anes. Related Issues
[2024-10-02] MEDS: amLODIPine Besylate 10 MG TABLET PO (08:24)
[2024-10-02] MEDS: Phenazopyridine HCL 100 MG TABLET PO ×2 (08:24→11:54)
[2024-10-02] MEDS: Tamsulosin HCL 0.4 MG CAPSULE PO (08:25)
--- NOTE | 2024-10-02 10:42 | MHC.CM.PN ---
pt dcd home self care
--- NOTE | 2024-10-02 10:55 | P.DS_ITS ---
DS: Providers Provider Date of Service: 10/02/24 Date of admission: 09/30/24 21:39 Date of discharge: 10/02/24 Primary care physician: Ashley Frankel MD Consults: 09/30/24 21:43 Consult to Urology Routine Consulting Provider: Kishore Dorsey Reason for consultation: ureteral stone Has provider been notified: Yes Attending physician on discharge: Parveen Breen Discharging clinician: Parveen Breen DS: Diagnosis Discharge Diagnosis (1) Renal calculus, right: Status: Acute DS: Summary Hospital Course Hospital Course: Hpi: 59-year-old male with a past medical history significant for HTN, BPH, type 2 diabetes (no medications), history C diff colitis, HLD, mild asthma, who presented to the ED due to right low back pain x4 days, and a renal ultrasound done by his PCP which showed moderate to severe right hydronephrosis with a 9 x 4 x 7 mm stone in the distal right ureter. He reports that his right low back p ain has been worsening over the past few days, he thought this was sciatica and he has no history of kidney stones. His pain waxes and wanes, currently 5/10 but can worsen in severity. He denies any urinary symptoms including hematuria, dysuria, frequency or urgency. He also denies any diarrhea, constipation, nausea or vomiting. No headache, shortness of breath, chest pain, runny nose or congestion. Hospital course: 59 y/o F with pmhx HTN, BPH, type 2 diabetes (no medications), history C diff colitis, HLD, mild intermittent asthma, who presented to the ED due to right low back pain x4 days, and a renal ultrasound done by his PCP which showed moderate to severe right hydronephrosis with a 9 x 4 x 7 mm stone in the distal right ureter: CBC normal, UA negative, no sign of infection,retroperitoneal ultrasound with moderate to severe right hydronephrosis with 9 mm stone distal right ureter. Patient was given hydration IV as well as pain medication, seen by urologist - status post right ureteral stent, patient seems to be improving afterwards, pain seems also improving. Discussed with urology:Pyridium 100mg tid prn bladder spasms Urology to arrange for office fu for stent removal in office in 2-3 weeks. plan: hold lisinopril and cholorthialidione for 2 days . Pyridium 100mg tid as needed for bladder spasms. Urology to arrange for office fu for stent removal in office in 2-3 weeks. Dilaudid 2 mg po q6hr as needed ( total 10 tab given). Above management discussed with the patient detail length he understand and in agreement with the above plan. Time spent 40 minute. Time Attestation Total time managing care of this patient today: 40 mintues. Discharge Coordination Time (in mins): 40 min Quality: Safe Use of Opioids Does Pt have an Active Cancer Diagnosis on the Problem List?: No Quality: Stroke Does the patient have a stroke diagnosis?: No Physical Exam Vital Signs: Vital Signs: Last Vital Signs Temp 98.2 F 10/02/24 07:27 Pulse 60 10/02/24 07:27 Resp 16 10/02/24 07:27 BP 146/79 H 10/02/24 07:27 Pulse Ox 98 10/02/24 07:27 O2 Del Method Room Air 10/02/24 07:27 BMI result Body Mass Index 26.7 Appearance: Alert.? Oriented X3.? cvs: rrr, [id number]. res: clear to auscultation ,no rhonchii or wheezing abd: no rebound or guarding ,nt, bs present. Gu: right flank pain improved ,has some soarness. ext pulses present , no cyanosis . neuro: axo3 , nonfocal. DS: Data Data Completed and Pending Pending studies at discharge: Pending at discharge 10/01/24 17:08 Surgical [PTH] Routine Labs on day of discharge: Laboratory Results - last 24 hr 10/01/24 10/01/24 10/01/24 11:13 14:39 18:07 WBC RBC Hgb Hct MCV MCH MCHC RDW Plt Count MPV Immature Gran % (Auto) Neut % (Auto) Lymph % (Auto) [place] % (Auto) Eos % (Auto) Baso % (Auto) Lymph # (Auto) [place] # (Auto) Eos # (Auto) Baso # (Auto) Abs Immat Gran (auto) Absolute Neuts (auto) Absolute Nucleated RBC Nucleated RBC % (auto) Sodium Potassium Chloride Carbon Dioxide Anion Gap BUN Creatinine Estim Creat Clear Calc Estimated GFR POC Glucose 135 H 133 H 113 Random Glucose Calcium 10/01/24 10/02/24 10/02/24 19:37 05:03 07:29 WBC 6.0 RBC 4.20 L Hgb 12.9 L Hct 38.8 L MCV 92.4 MCH 30.7 MCHC 33.2 RDW 13.2 Plt Count 229 MPV 10.9 Immature Gran % (Auto) 0.2 Neut % (Auto) 67.0 Lymph % (Auto) 20.1 [place] % (Auto) 10.2 Eos % (Auto) 2.0 Baso % (Auto) 0.5 Lymph # (Auto) 1.2 [place] # (Auto) 0.6 Eos # (Auto) 0.1 Baso # (Auto) 0.0 Abs Immat Gran (auto) 0.01 Absolute Neuts (auto) 4.0 Absolute Nucleated RBC 0.000 Nucleated RBC % (auto) 0.0 Sodium 141 Potassium 3.8 Chloride 107 Carbon Dioxide 28 Anion Gap 10 L BUN 13 Creatinine 1.06 Estim Creat Clear Calc 69.2 Estimated GFR > 60 POC Glucose 182 H 139 H Random Glucose 182 H Calcium 8.8 Imaging Chest x-ray: Radiologist's impression: ITS Impressions Guidance Fluoroscopy 10/01/24 16:15 IMPRESSION: Fluoroscopic guidance. Electronically signed by: Harrison Patel MD 10/02/2024 10:06 AM [facility] [place] Discharge Anticipated Discharge Date/Time: 10/02/24 10:21 Patient Disposition: Home, Self-Care Discharge Diagnosis: right ureteral stone Referrals: Ashley Frankel MD [Primary Care Provider] - 1 Week Discharge Medications: New hydromorphone [Dilaudid] 2 mg tablet 2 mg PO Q6H PRN (Reason: pain) Qty: 10 0RF Rx Instructions: Partial Fill upon patient request. docusate sodium [Colace] 100 mg capsule 100 mg PO BID Qty: 14 0RF phenazopyridine 100 mg Tablet 100 mg PO TIDWM PRN (Reason: pain) Qty: 9 0RF senna 8.6 mg capsule 8.6 mg PO BEDTIME PRN (Reason: constipation) Qty: 14 0RF Continued terazosin 5 mg capsule 5 mg PO BEDTIME 90 Days Qty: 90 1RF famotidine 40 mg tablet 40 mg PO DAILY PRN (Reason: for heartburn) Qty: 90 4RF amlodipine 10 mg tablet 10 mg PO DAILY Qty: 90 3RF acetaminophen [Tylenol Extra Strength] 500 mg tablet 1,000 mg PO Q6H PRN (Reason: fever or pain) Qty: 20 0RF meclizine 25 mg tablet 25 mg PO BID PRN (Reason: dizziness) Qty: 14 0RF tramadol 50 mg tablet 50 mg PO BEDTIME PRN (Reason: Pain) tamsulosin 0.4 mg capsule 0.4 mg PO DAILY albuterol sulfate 90 mcg/actuation HFA aerosol inhaler 2 puff INHALATION Q6H PRN (Reason: dyspnea) fluticasone propionate 50 mcg/actuation spray,suspension 2 spray intranasal DAILY PRN (Reason: Allergy Symptoms) atorvastatin 80 mg tablet 80 mg PO DAILY aspirin 81 mg tablet,delayed release (DR/EC) 81 mg PO DAILY (DME) lancets [TRUEplus Lancets] 33 gauge misc See Rx Instructions Not Applicable TID Qty: 100 Rx Instructions: As directed (DME) FreeStyle Lite Strips Strip See Rx Instructions Not Applicable TID Qty: 10 Rx Instructions: As directed hydroxyzine HCl 25 mg tablet 25 mg PO QID PRN (Reason: Anxiety) trazodone 50 mg tablet 50 mg PO BEDTIME PRN (Reason: Insomnia) cetirizine [Zyrtec] 10 mg tablet 10 mg PO DAILY PRN (Reason: Allergies) Held lisinopril 40 mg tablet 40 mg PO DAILY Qty: 90 3RF Hold Instructions: Resume on 10/04/24. chlorthalidone 25 mg tablet 25 mg PO DAILY Hold Instructions: Resume on 10/03/24. Discontinued ibuprofen 400 mg tablet 400 mg PO TID PRN (Reason: fever or pain) Qty: 30 0RF Discharge Orders: Discharge Order (Routine); Ordered 10/02/24 Ordered By: Parveen Breen Diet: Advance to usual diet Activity on Discharge: As tolerated Stand Alone Forms: Patient Portal Discharge page Print Language: Rw[place]an Care Plan Goals: 59-year-old male with a past medical history significant for HTN, BPH, type 2 diabetes (no medications), history C diff colitis, HLD, mild intermittent asthma, who presented to the ED due to right low back pain x4 days, and a renal ultrasound done by his PCP which showed moderate to severe right hydronephrosis with a 9 x 4 x 7 mm stone in the distal right ureter: CBC normal, UA negative, no sign of infection,retroperitoneal ultrasound with moderate to severe right hydronephrosis with 9 mm stone distal right ureter. Patient was given hydration IV as well as pain medication, seen by urologist - status post right ureteral stent, patient seems to be improving afterwards, pain seems also improving. Discussed with urology:Pyridium 100mg tid prn bladder spasms Urology to arrange for office fu for stent removal in office in 2-3 weeks. Health Concerns: As above. Plan of Treatment: Pyridium 100mg tid as needed for bladder spasms. Urology to arrange for office fu for stent removal in office in 2-3 weeks Assessment: as above. Discharge Date/Time: 10/02/24 13:04
[2024-10-02 11:28] LABS: Glucose, Whole Blood 189 mg/dL (60-115)
[2024-10-02 11:40] VITALS: BP 143/74; PULSE 66; RESP 16; TEMP 36.4; O2SAT 98
[2024-10-09 03:04] LABS: Stone Source STONE
== END 2024-10-02 13:04 | disposition home or self-care (01) | DRG 661 ==
LOC: HO.ED 21:24 → HO.EDOVER 21:45 → HO.S3 23:40
PROVIDERS: Physician Assistant; Urology; Admitting Provider Physician Assistant; Emergency Provider Emergency Medicine Emergency Medical Services; PCP Family Medicine; Visit Provider Internal Medicine
PROC: 0T768DZ Dilation of Right Ureter with Intraluminal Device, Via Natural or Artificial Opening Endoscopic (ICD-10-PCS; principal; 2024-10-01 15:20)
DX: N13.2 Hydronephrosis with renal and ureteral calculous obstruction (principal); I10 Essential (primary) hypertension; N40.0 Benign prostatic hyperplasia without lower urinary tract symptoms; E78.5 Hyperlipidemia, unspecified; J45.20 Mild intermittent asthma, uncomplicated; Z87.891 Personal history of nicotine dependence; Z79.82 Long term (current) use of aspirin; Z79.899 Other long term (current) drug therapy
CPT/HCPCS: 36415; 76770; 80048; 80076; 81001; 82365; 82947; 83690; 83735; 85025; 85610; 88300; 99285; C1726; C1758; C1769; C2617; J0131; J0744; J1100; J1171; J2003; J2250; J2704; J3010; J7120; Q9967

== ENCOUNTER → 2024-09-30 21:39 | Outpatient (BNV) | payer OTHER, SELFPAY | PROVIDERS: Admitting Provider Physician Assistant; Emergency Provider Emergency Medicine Emergency Medical Services; PCP Family Medicine; Visit Provider Urology | DX: N20.1 Calculus of ureter (principal); N13.1 Hydronephrosis with ureteral stricture, not elsewhere classified | CPT/HCPCS: 52356; 99222 ==

== ENCOUNTER → 2024-09-30 21:39 | Outpatient (BNV) | payer OTHER, SELFPAY | PROVIDERS: Admitting Provider Physician Assistant; Emergency Provider Emergency Medicine Emergency Medical Services; PCP Family Medicine; Visit Provider Internal Medicine | DX: N13.1 Hydronephrosis with ureteral stricture, not elsewhere classified (principal); N20.1 Calculus of ureter; N20.0 Calculus of kidney | CPT/HCPCS: 99223; 99239 ==

== ENCOUNTER 2024-10-10 00:29 | Emergency (ER) | payer OTHER, SELFPAY ==
[2024-10-10 00:35] VITALS: BP 145/88; PULSE 87; RESP 18; TEMP 37.1; O2SAT 98; BMI 27.0
[2024-10-10 00:48] LABS: MANUAL DIFF FLAG NO
[2024-10-10 00:49] LABS: Basophils Percent Auto 0.6 % (0-2); Eosinophils Absolute Auto 0.1 X10*3/uL (0.0-0.4); Eosinophils Percent Auto 1.9 % (0-4); Hematocrit 38.7 % (42.0-52.0); Hemoglobin 13.6 g/dl (14.0-18.0); Imm Gran Abs Auto 0.01 X10*3/uL (0.00-0.03); Imm Gran Pct Auto 0.2 % (0.0-0.4); Lymphocytes Absolute Auto 1.7 X10*3/uL (1.2-4.9); Lymphocytes Percent Auto 25.9 % (20-40); Mean Corpuscular HGB Conc 35.1 g/dl (31.0-36.0); Mean Corpuscular Hemoglobin 30.9 pg (27.0-33.0); Monocytes Absolute Auto 0.7 X10*3/uL (0.1-1.2); Monocytes Percent Auto 11.3 % (2-11); Neutrophils Absolute Auto 3.9 x10*3/uL (2.0-8.3); Neutrophils Percent Auto 60.1 % (45-73); Platelet Count 275 X10*3/uL (160-400); Red Cell Distribution Width 12.7 % (11.0-16.0); White Blood Count 6.5 X10*3/uL (4.8-10.8)
[2024-10-10 01:14] LABS: Alanine Aminotransferase 14 U/L (0-40); Albumin Level 4.1 g/dL (3.5-5.0); Alkaline Phosphatase 92 U/L (39-117); Anion Gap 13 (12-20); Aspartate Amino Transferase 21 U/L (5-37); Bilirubin Total 0.5 mg/dL (0.0-1.0); Blood Urea Nitrogen 16 mg/dL (9-16); Calcium 9.6 mg/dL (8.4-10.2); Carbon Dioxide 26 mmol/L (22-29); Chloride 106 mmol/L (96-108); Estimated Glomerular Filt Rate > 60; Glucose Random 173 mg/dL (60-115); Lipase 36 U/L (8-78); Potassium 3.8 mmol/L (3.3-5.1); Sodium 141 mmol/L (135-145); Total Protein 7.3 g/dL (6.5-8.0)
== END 2024-10-10 06:50 | disposition left against medical advice (07) ==
PROVIDERS: Emergency Provider Emergency Medicine; PCP Family Medicine
DX: N20.0 Calculus of kidney (principal); Z79.899 Other long term (current) drug therapy
CPT/HCPCS: 36415; 80053; 83690; 85025; 99281

== ENCOUNTER 2024-10-24 09:20 | Outpatient (REF) | payer OTHER, SELFPAY ==
--- OUTSIDE RECORDS SUMMARY | 2024-10-24 10:12 | XMS_ITS | Encounter Summary ---
Author Organization [employer] Address [address] [place] [address] [address] [place] [address] Care Team Providers Care Director Park Name Role Phone Ashley Frankel MD Primary Care Provider [phone] Viktor November Unavailable Kishore Dorsey MD Unavailable Raheel Gee Unavailable [phone] Riya Fulton Unavailable Sergio Hackett Unavailable Unavailable Dominga Silva PharmD Unavailable Reason for Visit * Reason Onset Date Comments Appointment Request 08/05/2024 Encounter Details Date Type Department Care Team (Late st Contact Info) Description 08/05/2024 Telephone [facility] MEDICINE [address] [place] [address] Ashley Frankel MD [address] [place] [address] Appointment Request Social History Tobacco [...] the past 12 months, has t he [employer], gas, oil or water company threatened to [...] Care Team (Late st Contact Info) Description 12/09/2024 8:00 AM EDT Office Visit [facility] ADULT DENTAL [address] [place] [address] Jackie Peacock documented as of this encounter Visit Diagnoses Not on filedocumented in this encounter Additional Health Concerns Assessment Noted Time PHQ-9 Depression Total Score: 0 07/17/20 24 10:33 AM EST documented as of this encounter Care Teams Director Park Relationship Specialty Start Date End Date Ashley Frankel MD [address] [place] [address] PCP - General Family Medicine 08/28/18 Viktor November [address] [place] [address] [address] [place] [address] Gastroenterology 07/17/24 Kishore Dorsey MD [address] [place] [address] Urology 07/17/24 Raheel Gee [address] [place], [place] [address] Pulmonary Disease 07/17/24 Riya Fulton [address] [place] [address] Cardiology 07/17/24 S[facility] Hackett [address] [facility] [address] [place] [address] Orthopaedic Surgery 07/17/24 Dominga Silva, AnanthD [address] [place] [address] Pharmacist Internal Medicine 07/22/24 Norm. [place] Psychiatry 10/10/24 documented as of this encounter
--- OUTSIDE RECORDS SUMMARY | 2024-10-24 10:12 | XMS_ITS | Clinical Summary ---
Author Organization 175 [facility] Address [address] [place] [address] Phone Care Team Providers Care Systems Analyst Engineer Name Role Phone Ashley Frankel MD Primary Care Provider [phone]- [phone] Allergies Active Allergy Reactions Criticality Noted Date Comments Clindamycin Anaphylaxis,Unknown High 03/29/2012 Doxycycline Diarrhea,Unknown Low 01/31/2023 Penicillins Anaphylaxis,Unknown High 04/06/2012 Other reaction(s): UNKNOWN REACTION-CHILDHOOD Medications levoFLOXacin (LEVAQUIN) 750 mg tablet Take 1 tablet (750 mg total) by mouth 1 (one) time each day for 7 days. 7 each 5 10/19/19 25 traMADoL (ULTRAM) 50 mg tabletIndications: Kidney stone,Acute urinary tract infection,Urinary tract infection with hematuria, site unspecified Take 1 tablet (50 mg total) by mouth every 6 (six) hours if needed for severe pain for up to 3 days. Max Daily Amount: 200 mg 12 tablet 5 10/15/19 25 ondansetron ODT (ZOFRAN-ODT) 4 mg disintegrating tabletIndications: Kidney stone,Acute urinary tract infection,Urinary tract infection with hematuria, site unspecified Let 1 tablet dissolve under the tongue three times daily as needed for nausea or vomiting. 10 tablet 5 10/19/19 25 Encounters Date Type Department Care Team Description 10/12/2024 3:45 AM EST - 10/12/2024 9:39 AM EST [facility] Emergency [address] [place] [address] Smith Quan MD Urinary tract infection with hematuria, site unspecified (Primary Dx); Kidney stone; Acute urinary tract infection Discharge Disposition: Home or Self Care from Last 3 Months Medical History Medical History Date Comments Hypertension Diabetes mellitus (CMS/HCC) Social History Tobacco Use Types Packs/Day Years Used Date Smoking Tobacco: Never Smokeless Tobacco: Never Tobacco Cessation:Counseling Given: Not Answered Sex and Gender Information Value Date Recorded Sex Assigned at Male 10/12/2024 1:34 AM EST Legal Sex Male 8:29 AM EST Gender Identity Male 10/12/2024 1:34 AM EST Sexual Orientation Choose not to disclose 2024 1:34 AM EST Obstetrics History Last Filed Vital Signs Vital Sign Reading Time Taken Comments Blood Pressure 162/88 10/12/2024 6:23 AM EST Pulse 58 10/12/2024 6:23 AM EST Temperature 36.9 ??C (98.4 ??F) 10/12/2024 6:23 AM ES T Respiratory Rate 18 10/12/2024 6:23 AM EST Oxygen Saturation 98% 10/12/2024 6:23 AM EST Inhaled Oxygen Concentration - - Weight 81.2 kg (179 lb) 10/11/2024 10:04 PM EST Height 170.2 cm (5' 7 ) 10/11/2024 10:04 PM EST Body Mass Index 28.04 10/11/2024 10:04 PM EST Plan of Treatment Upcoming Encounters Date Type Department Care Team (Late st Contact Info) Description 11/06/2024 10:45 AM EDT Consult Orthopedic Surgery - [place] [address] [address] [facility] [address] [place] [phone] Raheel Slater DPM [address] [address] Health Maintenance Due Date Last Done Comments COVID-19 Vaccine (#1) 1969 Diabetes: Annual Foot Exam 1974 Diabetes: Annual Retina Eye Exam 1974 Zoster Vaccines (1 of 2) 1983 Pneumococcal Vaccine: 50+ Years (3 of 3 - PCV) 05/14/2016 05/14/2015, 06/30/2006 Pneumococcal Vaccine: Pediatrics (0 to 5 Years) and At-Risk Patients (6 to 64 Years) (3 of 3 - PCV) 05/14/2016 05/14/2015, 06/30/2006 Influenza Vaccine (#1) 2024 9, 05/18/2018, 05/31/2017, Additional history exists Colorectal Cancer Screening: Colonoscopy 08/09/2024 Diabetes: Annual Urine Albumin-Creatinine Ratio (uACR) 08/09/2024 Medicare Annual Wellness Visit 08/09/2024 Social Influencers of Health Screening 08/09/2024 RSV Immunization Patients 60+ Years Old (1 - Risk 60-74 years 1-dose series) 2024 Diabetes: Blood Sugar Control Test (HGBA1C) 02/11/2025 08/13/2024, 07/17/2024, 07/17/2024 Depression Screening 07/17/2025 07/17/2024 Diabetes: Annual GFR (Glomerular Filtration Rate) 10/11/2025 10/11/2024, 10/10/2024, 09/30/2024, Additional history exists Hypertension/CHF/CAD Annual BMP Blood Test 10/11/2025 10/11/2024, 10/10/2024, 09/30/2024, Additional history exists Cholesterol Screening (Lipid Panel) 08/13/2029 08/13/2024, 07/17/2024 DTaP,Tdap,and Td Vaccines (4 - Td or Tdap) 12/22/2029 12/23/2019, 06/04/2012, 01/10/2006 Hepatitis B Vaccines Completed 05/14/2015, 02/26/2014, 09/26/2013 [...] patient's age to complete this topic Meningococcal B Vacine Aged Out No lo nger eligible based on patient's age to complete this topic RSV Immunization Patients Under 20 months Aged Out No longer eligible based on patient's age to complete this topic Varicella Vaccines Aged Out No longer eligible based on patient's age to complete this topic Procedures Procedure Name Priority Date/Time Associated Diagnosis Comments CT ABDOMEN PELVIS WO CONTRAST STAT 10/12/2024 6:19 AM EST CBC WITH AUTO DIFFERENTIAL STAT 10/11/2024 11:18 PM EST COMPREHENSIVE METABOLIC PANEL STAT 10/11/2024 11:18 PM EST CBC AND DIFFERENTIAL STAT 10/11/2024 11:18 PM EST CARLIN URINE CULTURE TUBE STAT 10/11/2024 10:34 PM EST URINALYSIS WITH REFLEX MICROSCOPIC AND CULTURE STAT 10/11/2024 10:34 PM EST URINALYSIS WITH REFLEX MICROSCOPIC AND CULTURE STAT 10/11/2024 10:34 PM EST CULTURE URINE STAT 10/11/2024 10:34 PM EST from Last 3 Months Results * CT Abdomen Pelvis wo Contrast (10/12/2024 6:19 AM EST) Anatomical Region Laterality Modality Body Computed Tomogra phy 10/12/2024 6:38 AM EST Impressions 10/12/2024 6:38 AM EST Mild right hydroureteronephrosis. Double-J right nephroureteral stent in satisfactory position. No stones or stone fragments noted along the stent course. Bilateral gynecomastia. Nonspecific dense calcifications within the left scrotal sac. This document has been electronically signed by: Seyd Cooley MD on 10/12/2024 06:38:48 Narrative 10/12/2024 6:38 AM EST INDICATION: Flank pain, kidney stone suspected CT abdomen and pelvis without IV contrast. Comparison: None Findings: No free air. No solid liver mass. No calcified gallstones. No clinically significant biliary ductal dilation. No splenomegaly or suspicious splenic lesions. No solid or cystic pancreatic mass. No pancreatic ductal dilation. No acute inflammatory changes. Adrenal glands without nodule. No suspicious renal mass. Double-J right nephroureteral stent in satisfactory position. Mild right hydroureteronephrosis. No stones in the kidneys or ureters. No significant stranding. Left kidney unremarkable. Bladder without acute pathology. No bowel obstruction. No mucosal thickening. No evidence for acute appendicitis. No adenopathy. No abdominal aortic aneurysm. No suspicious pelvic masses. Bilateral gynecomastia. Nonspecific dense calcifications within the left scrotal sac. No acute osseous pathology. Degenerative changes. Procedure Note Syed Cooley MD - 10/12/2024 INDICATION: Flank pain, kidney stone suspected CT abdomen and pelvis without IV contrast. Comparison: None Findings: No free air. No solid liver mass. No calcified gallstones. No clinically significant biliary ductal dilation. No splenomegaly or suspicious splenic lesions. No solid or cystic pancreatic mass. No pancreatic ductal dilation. No acute inflammatory changes. Adrenal glands without nodule. No suspicious renal mass. Double-J right nephroureteral stent in satisfactory position. Mild right hydroureteronephrosis. No stones inthe kidneys or ureters. No significant stranding. Left kidney unremarkable. Bladder without acute pathology. No bowel obstruction. No mucosal thickening. No evidence for acute appendicitis. No adenopathy. No abdominal aortic aneurysm. No suspicious pelvic masses. Bilateral gynecomastia. Nonspecific dense calcifications within the left scrotal sac. No acute osseous pathology. Degenerative changes. IMPRESSION: Mild right hydroureteronephrosis. Double-J right nephroureteral stent in satisfactory position. No stones or stone fragments noted along the stent course. Bilateral gynecomastia. Nonspecific dense calcifications within the left scrotal sac. This document has been electronically signed by: Syed Cooley MD on 10/12/2024 06:38:[address] PROCEDURES Final Result * (ABNORMAL) CBC auto differential (10/11/2024 11:18 PM EST) WBC 7.7 4.8 - 10.8 /[facility] LAB HEMETOLOGY METHOD 10/12/2024 12:[address] [facility] RBC 4.60 4.50 - 5.50 M/mcL LAB HEMETOLOGY METHOD 10/12/2024 12:[address] [facility] Hemoglobin 14.1 13.5 - 17.5 g/dL LAB HEMETOLOGY METHOD 10/12/2024 12:[address] [facility] Hematocrit 42.7 42.0 - 54.0 % LAB HEMETOLOGY METHOD 10/12/2024 12:[address] [facility] MCV 92.2 79.0 - 98.0 FL LAB HEMETOLOGY METHOD 10/12/2024 12:[address] [facility] MCH 30.5 27.0 - 32.0 pcg LAB HEMETOLOGY METHOD 10/12/2024 12:[address] [facility] MCHC 33.0 32.0 - 37.0 g/dL LAB HEMETOLOGY METHOD 10/12/2024 12:[address] [facility] RDW 12.8 11.0 - 15.0 % LAB HEMETOLOGY METHOD 10/12/2024 12:[address] [facility] Platelets 327 130 - 400 K/[facility] LAB HEMETOLOGY METHOD 10/12/2024 12:[address] [facility] MPV 10.4 7.0 - 11.0 FL LAB HEMETOLOGY METHOD 10/12/2024 12:[address] [facility] NRBC 0.0 <1.0 % LAB HEMETOLOGY METHOD 10/12/2024 12:[address] [facility] NRBC Absolute 0.00 <0.10 K/mcL LAB HEMETOLOGY METHOD 10/12/2024 12:[address] [facility] Neutrophils Relative 66.8 % LAB HEMETOLOGY METHOD 10/12/2024 12:[address] [facility] Lymphocytes Relative 21.5 % LAB HEMETOLOGY METHOD 10/12/2024 12:[address] [facility] Monocytes Relative 9.6 % LAB HEMETOLOGY METHOD 10/12/2024 12:[address] [facility] Eosinophils Relative 1.2 % LAB HEMETOLOGY METHOD 10/12/2024 12:[address] [facility] Basophils Relative 0.4 % LAB HEMETOLOGY METHOD 10/12/2024 12:[address] [facility] Immature Granulocytes Relative 0.5 % LAB HEMETOLOGY METHOD 10/12/2024 12:[address] [facility] Neutrophils Absolute 5.12 1.50 - 7.00 K/mcL LAB HEMETOLOGY METHOD 10/12/2024 12:[address] [facility] Lymphocytes Absolute 1.65 1.00 - 5.00 K/mcL LAB HEMETOLOGY METHOD 10/12/2024 12:[address] [facility] Monocytes Absolute 0.74 0.20 - 1.00 K/mcL LAB HEMETOLOGY METHOD 10/12/2024 12:[address] [facility] Eosinophils Absolute 0.09 0.00 - 0.50 K/mcL LAB HEMETOLOGY METHOD 10/12/2024 12:[address] [facility] Basophils Absolute 0.03 0.00 - 0.20 K/mcL LAB HEMETOLOGY METHOD 10/12/2024 12:[address] [facility] Immature Granulocytes Absolute 0.04(H) 0.00 - 0.03 K/mcL LAB HEMETOLOGY METHOD 10/12/2024 12:[address] [facility] Blood Venous blood specimen / Unknown Venipuncture / Unknown 10/11/2024 11:18 PM EST 10/11/2024 11:44 PM EST us Smith Quan MD LAB BLOOD ORDERABLES Final Result [facility] [address] [place] [address], * (ABNORMAL) Comprehensive metabolic panel (10/11/2024 11:18 PM EST) Sodium 138 133 - 145 mmol/L LAB CHEMISTRY METHOD 10/12/2024 12:[address] [facility] Potassium 4.3 3.5 - 5.5 mmol/L LAB CHEMISTRY METHOD 10/12/2024 12:[address] [facility] Chloride 107 96 - 110 mmol/L LAB CHEMISTRY METHOD 10/12/2024 12:[address] [facility] CO2 30 21 - 32 mmol/L LAB CHEMISTRY METHOD 10/12/2024 12:[address] [facility] Anion Gap 1(L) 3 - 11 LAB CHEMISTRY METHOD 10/12/2024 12:[address] [facility] Glucose 126(H) 70 - 100 mg/dL LAB CHEMISTRY METHOD 10/12/2024 12:[address] [facility] BUN 15 5 - 25 mg/dL LAB CHEMISTRY METHOD 10/12/2024 12:[address] [facility] Creatinine 1.15 0.70 - 1.30 mg/dL LAB CHEMISTRY METHOD 10/12/2024 12:[address] [facility] eGFR 73 >=60 mL/min/1. 73m2 LAB CHEMISTRY METHOD 10/12/2024 12:[address] [facility] Comment:Calculation based on the??Chronic Kidney Disease Epidemiology Collaboration (CKD-EPI) equation refit??without adjustment for race. BUN/Creatinine Ratio 13.0 LAB CHEMISTRY METHOD 10/12/2024 12:[address] [facility] Calcium 9.8 8.5 - 10.5 mg/dL LAB CHEMISTRY METHOD 10/12/2024 12:[address] [facility] AST (SGOT) 24 10 - 42 unit/L LAB CHEMISTRY METHOD 10/12/2024 12:[address] [facility] ALT (SGPT) 22 10 - 60 unit/L LAB CHEMISTRY METHOD 10/12/2024 12:[address] [facility] Alkaline Phosphatase 100 42 - 121 unit/L LAB CHEMISTRY METHOD 10/12/2024 12:[address] [facility] Total Protein 6.9 6.0 - 8.0 g/dL LAB CHEMISTRY METHOD 10/12/2024 12:[address] [facility] Albumin 3.9 3.2 - 5.0 g/dL LAB CHEMISTRY METHOD 10/12/2024 12:[address] [facility] Total Bilirubin 0.6 0.0 - 1.4 mg/dL LAB CHEMISTRY METHOD 10/12/2024 12:[address] [facility] Blood Venous blood specimen / Unknown Venipuncture / Unknown 10/11/2024 11:18 PM EST 10/11/2024 11:44 PM EST us Smith Quan MD LAB BLOOD ORDERABLES Final Result [facility] [address] [place] [address], * (ABNORMAL) Urinalysis with reflex microscopic and culture (10/11/2024 10:34 PM EST) Specific [place] Urine 1.014 1.003 - 1.030 LAB URINALYSIS - AUTOMATED METHOD 10/12/2024 6:[address] [facility] pH, Urine 5.5 5.0 - 8.0 pH LAB URINALYSIS - AUTOMATED METHOD 10/12/2024 6:[address] [facility] Leukocytes, Urine Moderate(A) Negative LAB URINALYSIS - AUTOMATED METHOD 10/12/2024 6:[address] [facility] Nitrite, Urine Positive(A) Negative LAB URINALYSIS - AUTOMATED METHOD 10/12/2024 6:[address] [facility] Protein, Urine 300(A) <=Trace mg/dL LAB URINALYSIS - AUTOMATED METHOD 10/12/2024 6:[address] [facility] Glucose, Urine Negative Negative mg/dL LAB URINALYSIS - AUTOMATED METHOD 10/12/2024 6:[address] [facility] Ketones, Urine Negative Negative mg/dL LAB URINALYSIS - AUTOMATED METHOD 10/12/2024 6:[address] [facility] Urobilinogen, Urine 1.0 0.2 - 1.0 mg/dL LAB URINALYSIS - AUTOMATED METHOD 10/12/2024 6:[address] [facility] Bilirubin, Urine Small(A) Negative LAB URINALYSIS - AUTOMATED METHOD 10/12/2024 6:[address] [facility] Blood, Urine Large(A) Negative LAB URINALYSIS - AUTOMATED METHOD 10/12/2024 6:[address] [facility] RBC, Urine 1,724.4(H) 0 - 4 /HPF LAB URINALYSIS - AUTOMATED METHOD 10/12/2024 6:[address] [facility] Comment:This is an appended report. These results have been appended to a previously preliminary verified report. WBC, Urine 48.9(H) 0 - 4 /HPF LAB URINALYSIS - AUTOMATED METHOD 10/12/2024 6:[address] [facility] Comment:This is an appended report. These results have been appended to a previously preliminary verified report. Squamous Epithelial, Urine >100(H) 0 - 60 /LPF LAB URINALYSIS - AUTOMATED METHOD 10/12/2024 6:[address] [facility] Comment:This is an appended report. These results have been appended to a previously preliminary verified report. Crystals, Urine LT CALCIUM OXALATE /LPF LAB URINALYSIS - AUTOMATED METHOD 10/12/2024 6:50 AM EST [facility] Comment:Corrected result: Pr eviously reported on 10/11/2024 at 2351 EST. Bacteria, Urine Negative Negative /HPF LAB URINALYSIS - AUTOMATED METHOD 10/12/2024 6:[address] [facility] Comment: Edited result: Previously reported as Negative /HPF on 10/11/2024 at 2351 EST. This is an appended report. ??These results have been appended to a previously final verified report. Hyaline Casts, Urine 13.6(H) 0 - 3 /LPF LAB URINALYSIS - AUTOMATED METHOD 10/12/2024 6:50 AM EST [facility] Comment:This is an appended report. These results have been appended to a previously preliminary verified report. Urine Urine specimen obtained by clean catch procedure / Unknown Non-blood Collection / Unknown 10/11/2024 10:34 PM EST 10/11/2024 11:07 PM EST Smith Quan MD LAB URINE ORDERABLES Edited Result - Final Performing Organization Address [facility]/ZIP Co de Phone Number [facility] [address] [place] [address], [place] [phone] * Carlin urine culture tube (10/11/2024 10:34 PM EST) Extra Tube Hold for add-ons. 10/12/2024 1:11 AM EST [facility] Comment:Auto resulted. Urine Urine specimen obtained by clean catch procedure / Unknown Non-blood Collection / Unknown 10/11/2024 10:34 PM EST 10/11/2024 11:07 PM EST Smith Quan MD LAB URINE ORDERABLES Final Result Performing Organization Address [facility]/ZIP Co de Phone Number [facility] [address] [place] [address], [place] [phone] * Culture urine (10/11/2024 10:34 PM EST) Culture, Urine No growth 10/13/2024 10:54 AM EST [facility] Urine Urine specimen obtained by clean catch procedure / Unknown Non-blood Collection / Unknown 10/11/2024 10:34 PM EST 10/11/2024 11:52 PM EST us Smith Quan MD LAB MICROBIOLOGY - GENERAL ORDERABLES Final Result [facility] ([facility]) [facility] [address] [place] [address], [place] [phone] from Last 3 Months Insurance , [address] [address] [facility] MEDICARE Member Subscriber Plan / Payer (Ef fective 2023-Present) Name:Bobby Velasco Relation to Subscriber:Self Name:Bobby Velasco Payer ID:[id number] Group ID:[id number] Type:Not on file Address: [place] [address] [address] [id number] Care Teams Systems Analyst Engineer Relationship Specialty Start Date End Date [place], MD Ashley [address] [place] [phone] PCP - General Family Medicine 08/09/24
--- OUTSIDE RECORDS SUMMARY | 2024-10-24 10:13 | XMS_ITS | Encounter Summary ---
Author Organization [employer] Address [address] [facility] [address] [place] [address] Care Team Providers Care Learning Coordinator Name Role Phone Ashley Frankel MD Primary Care Provider [phone] [place], November Unavailable Kishore Dorsey MD Unavailable Raheel Gee Unavailable [phone] Riya Fulton Unavailable Sergio Hackett Unavailable Unavailable Dominga Silva PharmD Unavailable Encounter Details Date Type Department Care Team (Late st Contact Info) Description 10/10/2024 Orders Only GENERIC EXTERNAL DATA DEPARTMENT Provider, Generic External Data Social History Tobacco Use Types Packs/Day Years [...] Description 12/09/2024 8:00 AM EDT Office Visit [facility] [address] [place] [address] Jackie Peacock documented as of this encounter Procedures Procedure Name Priority Date/Time Associated Diagnosis Comments CBC WITH AUTO DIFFERENTIAL Routine 10/10/2024 12:45 AM EST LIPASE Routine 10/10/2024 12:45 AM EST COMPREHENSIVE METABOLIC PANEL Routine 10/10/2024 12:45 AM EST documented in this encounter Results * Lipase (10/10/2024 12:45 AM EST) Lipase 36 8 - 78 U/L [facility] 10/10/2024 12:4 5 AM EST 10/10/2024 12:47 AM EST us Generic External Data Provider LAB BLOOD ORDERAB LES Final Result [facility] [address] [place] [phone] * (ABNORMAL) Comprehensive Metabolic Panel (10/10/2024 12:45 AM EST) Sodium 141 135 - 145 mmol/L [facility] Potassium 3.8 3.3 - 5.1 mmol/L [facility] Chloride 106 96 - 108 mmol/L [facility] Carbon Dioxide 26 22 - 29 mmol/L [facility] Anion Gap 13 12 - 20 [facility] Urea Nitrogen (BUN) 16 9 - 16 mg/dL [facility] Creatinine, Serum 1.02 0.5 - 1.4 mg/dL [facility] Creatinine Clr Calc Pharmacy 72.0 [facility] Comment:eGFR (calculated fro m the MDRD study equation) and eCrCl(calculated from the Cockcroft-Gault equation) are based ondifferent parameters and may not yield comparable results.If eCrCl result is absurd, please check patient'sheight/weight. Estimated Glomerular Filt Rate >60 [facility] Comment:Chronic Kidney Disea se: Estimated GFR < 60 mL/min/[id number] Kidney Disease: Estimated GFR < 15 mL/min/1.73m2 Glucose 173(H) 60 - 115 mg/dL [facility] Calcium 9.6 8.4 - 10.2 mg/dL [facility] Bilirubin, Total 0.5 0.0 - 1.0 mg/dL [facility] Aspartate Amino Transferase 21 5 - 37 U/L [facility] Alanine Aminotransferase 14 0 - 40 U/L [facility] Total Protein 7.3 6.5 - 8.0 g/dL [facility] Albumin Level 4.1 3.5 - 5.0 g/dL [facility] Alkaline Phosphatase 92 39 - 117 U/L [facility] 10/10/2024 12:4 5 AM EST 10/10/2024 12:47 AM EST us Generic External Data Provider LAB BLOOD ORDERAB LES Final Result [facility] [address] [place] [address] [phone] * (ABNORMAL) CBC auto differential (10/10/2024 12:45 AM EST) White Blood Count 6.5 4.8 - 10.8 X10*3/uL [facility] Red Blood Count 4.40(L) 4.60 - 5.80 X10*6/uL [facility] Hemoglobin 13.6(L) 14.0 - 18.0 g/dl [facility] Hematocrit 38.7(L) 42.0 - 52.0 % [facility] Mean Corpuscular Volume 88.0 80.0 - 98.0 fL [facility] Mean Corpuscular Hemoglobin 30.9 27.0 - 33.0 pg [facility] Mean Corpuscular HGB Conc 35.1 31.0 - 36.0 g/dl [facility] Red Cell Distribution Width 12.7 11.0 - 16.0 % [facility] Platelet Count 275 160 - 400 X10*3/uL [facility] Mean Platelet Volume 10.0 9.4 - 12.4 fL [facility] Neutrophils Percent Auto 60.1 45 - 73 % [facility] Imm Gran Pct Auto 0.2 0.0 - 0.4 % [facility] Lymphocytes Percent Auto 25.9 20 - 40 % [facility] Monocytes Percent Auto 11.3(H) 2 - 11 % [facility] Eosinophils Percent Auto 1.9 0 - 4 % [facility] Basophils Percent Auto 0.6 0 - 2 % [facility] NRBC Pct Auto 0.0 0.0 - 0.2 /100WBC [facility] Neutrophils Absolute Auto 3.9 2.0 - 8.3 x10*3/uL [facility] Imm Gran Abs Auto 0.01 0.00 - 0.03 X10*3/uL [facility] Lymphocytes Absolute Auto 1.7 1.2 - 4.9 X10*3/uL [facility] Monocytes Absolute Auto 0.7 0.1 - 1.2 X10*3/uL [facility] Eosinophils Absolute Auto 0.1 0.0 - 0.4 X10*3/uL [facility] Basophils Absolute Auto 0.0 0.0 - 0.2 X10*3/uL [facility] NRBC Abs Auto 0.000 0.0 - 0.012 X10*3/uL [facility] 10/10/2024 12:4 5 AM EST 10/10/2024 12:47 AM EST us Generic External Data Provider LAB BLOOD ORDERAB LES Final Result Performing Organization Address City/State/[facility] [[email or web address]] Co de Phone Number [facility] [address] [place] [address] [phone] documented in this encounter Visit Diagnoses Not on filedocumented in this encounter Additional Health Concerns Assessment Noted Time PHQ-9 Depression Total Score: 0 07/17/20 10:33 AM EST documented as of this encounter Care Teams Learning Coordinator Relationship Specialty Start Date End Date Ashley Frankel MD [address] [place] [address] PCP - General Family Medicine 08/28/18November [address] [place] [address] Gastroenterology 07/17/24 Kishore Dorsey MD [address] [place] [address] Urology 07/17/24 Raheel Gee [address] [place], [place] [address] Pulmonary Disease 07/17/24 Riya Fulton [address] [place] [address] Cardiology 07/17/24 Sergio Hackett [address] [place] [address] Orthopaedic Surgery 07/17/24 Dominga Silva, AnanthD [address] [place] [address] Pharmacist Internal Medicine 07/22/24 De. [facility] Psychiatry 10/10/24 documented as of this encounter
--- OUTSIDE RECORDS SUMMARY | 2024-10-24 10:13 | XMS_ITS | Encounter Summary ---
Author Organization [employer] Address 75 [facility] 7t [place] [address] Care Team Providers Care Lasting Machine Operator Bed Name Role Phone Ashley Frankel MD Primary Care Provider [phone] Hoang, November Unavailable Kishore Dorsey MD Unavailable Raheel Gee Unavailable [phone] Riya Fulton Unavailable Sergio Hackett Unavailable Unavailable Dominga Silva PharmD Unavailable Reason for Visit * Reason Comments Med Change Request Encounter Details Date Type Department Care Team (Late st Contact Info) Description 07/12/2023 Refill [facility] [address] [place], [place] [phone] Ashley Frankel MD 230 [place], [place] [phone] Social History Tobacco Use Types Packs/Day Years [...] Description 12/09/2024 8:00 AM EDT Office Visit [facility] 230 [place] [address] Jackie Peacock documented as of this encounter Visit Diagnoses Not on filedocumented in this encounter Care Teams Lasting Machine Operator Bed Relationship Specialty Start Date End Date Ashley Frankel MD 230 [place] [address] PCP - General Family Medicine 08/28/18November [address] [address] Gastroenterology 07/17/24 Kishore Dorsey MD 10 [facility] [address] [place] [address] Urology 07/17/24 Raheel Gee 5 [place], [place] 10[address] Pulmonary Disease 07/17/24 Riya Fulton 11 [facility] 3rd [place] [address] Cardiology 07/17/24 Sergio Hackett [address] 2nd [place] [address] Orthopaedic Surgery 07/17/24 Dominga Silva, Mehrdad 230 [place] [address] Pharmacist Internal Medicine 07/22/24 De. [facility] Psychiatry 10/10/24 documented as of this encounter
--- OUTSIDE RECORDS SUMMARY | 2024-10-24 10:13 | XMS_ITS | Encounter Summary ---
Author Organization [employer] Address [address] [place] [address] [address], [place] [address] Care Team Providers Care Apartment Maintenance Name Role Phone Ashley Frankel MD Primary Care Provider [phone] Hoang November Unavailable Kishore Dorsey MD Unavailable [phone] Raheel Gee Unavailable [phone] Riya Fulton Unavailable Sergio Hackett Unavailable Unavailable Dominga Silva PharmD Unavailable Reason for Referral * Consultation (Routine) - Authorized Specialty Diagnoses / Procedures Referred By Jeromy worrell Referred To Contact Urology Diagnoses Renal calculi Hydronephrosis, unspecified hydronephrosis type Ashley Frankel MD [address] [place] [address] Phone: tel: fax: [facility] Referral ID Status Reason Start Date Expiration Date Visits Requested Visits Authorized [id number] Authorized Specialty Services Required 09/30/2024 09/30/2025 1 1 Encounter Details Date Type Department Care Team (Late st Contact Info) Description 09/30/2024 Orders Only [facility] [address] [place] [address] [phone] Ashley Frankel MD [address] [place] [phone] Renal calculi (Primary Dx); Hydronephrosis, unspecified hydronephrosis type Social History Tobacco Use Types Packs/Day Years [...] Description 12/09/2024 8:00 AM EDT Office Visit [facility] 230 [place] [address] Jackie Peacock Scheduled Referrals Name Type Priority Associated Diagnoses Orde r Schedule Referral to Urology Outpatient Referral Routine Renal calculi Hydronephrosis, unspecified hydronephrosis type Expected: 09/30/2024 (Approximate), Expires: 09/30/2025 documented as of this encounter Procedures Procedure Name Priority Date/Time Associated Diagnosis Comments FL GUIDANCE IN OR Routine 10/01/2024 4:1 5 PM EST URINALYSIS, COMPLETE, WITH REFLEX TO CULTURE Routine 09/30/2024 4:26 PM EST Renal calculi CBC WITH AUTO DIFFERENTIAL Routine 09/30/2024 4:26 PM EST Renal calculi PROTHROMBIN TIME-INR Routine 09/30/2024 4:26 PM EST Renal calculi MAGNESIUM Routine 09/30/2024 4:26 PM EST Renal calculi LIPASE Routine 09/30/2024 4:26 PM EST Renal calculi HEPATIC FUNCTION PANEL Routine 09/30/2024 4:26 PM EST Renal calculi BASIC METABOLIC PANEL Routine 09/30/2024 4:26 PM EST Renal calculi documented in this encounter Results * FL Guidance in OR (10/01/2024 4:15 PM EST) Anatomical Region Laterality Modality X-Ray Angiograph y 10/01/2024 4:15 PM EST Narrative 10/02/2024 10:09 AM EST ? [facility] ?[address] ?[place] [address] ? Fluoroscopy Report ? Signed ? Patient: Krista,Bobby ?MR#: [id number] ? : 1965 ?Acct:[id number] ? Age/Sex: 59 / M ?ADM Date: //25 ? Loc: HO.S3 ?344-1 ? Attending Dr: Parveen Breen MD ? Ordering Physician: Mayda Rodriguez MD ?? Date of Service: 10/01/24 ?? Procedure(s): FL guidance in OR ?? Accession Number(s): [id number] ? cc: Mayda Rodriguez MD; Ashley Frankel MD ? EXAMINATION: ?? XR FLUOROSCOPY WITH IMAGES ? CLINICAL INFORMATION: ?? Right ureteral stone, retrograde ureteroscopy. ? COMPARISON: ?? Retroperitoneal ultrasound dated 09/30/2024. ? TECHNIQUE: ?? Fluoroscopy provided to: Jennifer ?? Fluoroscopy time: 21.6 seconds. ?? Dose: 5.64 mGy ?? Images: 3 ? FINDINGS: ?? 3 images obtained during right retrograde ureteroscopy and right ?? ureteral stent placement. Refer to the full operative report for ?? detail. ? FL/FL guidance in OR ?? IMPRESSION: ?? Fluoroscopic guidance. ? Electronically signed by: ??Harrison Patel MD ??10/02/2024 10:06 AM EST RP ? Dictated By: ?Harrison Patel MD ? Signed By: ?<Electronically signed by Harrison Patel MD in OV> ?10/02/24 1006 ? DD/ 1615 ? TD/TT: 10/01/24 1710 ? Care Manager: ? Procedure Note Reshma, Image - 10/02/2024 [place] [address] Fluoroscopy Report Signed Patient: Pierce Velasco#: [id number] : 1965Acct:[id number] Age/Sex: 59 / MADM Date: 09/30/24 Loc: .S3 344-[address]: Parveen Breen MD Ordering Physician: Mayda Rodriguez MD Date of Service: 10/01/24 Procedure(s): FL guidance in OR Accession Number(s): [id number] cc: Mayda Rodriguez MD; Ashley Frankel MD EXAMINATION: XR FLUOROSCOPY WITH IMAGES CLINICAL INFORMATION: Right ureteral stone, retrograde ureteroscopy. COMPARISON: Retroperitoneal ultrasound dated 09/30/2024. TECHNIQUE: Fluoroscopy provided to: Jennifer Fluoroscopy time: 21.6 seconds. Dose: 5.64 mGy Images: 3 FINDINGS: 3 images obtained during right retrograde ureteroscopy and right ureteral stent placement. Refer to the full operative report for detail. FL/FL guidance in OR IMPRESSION: Fluoroscopic guidance. Electronically signed by: Harrison Patel MD 10/02/2024 10:06 AM EST Dictated By: Harrison Patel MD Signed By: <Electronically signed by Harrison Patel MD in OV> 10/02/24 1006 DD/ 1615 TD/TT: 10/01/24 1710 Care Manager: [facility] External Provider IMG IR PROCEDURES Edited Result - Final * Lipase (09/30/2024 4:26 PM EST) Pathologist [facility] Lipase 35 8 - 78 U/L [facility] 09/30/2024 4:26 PM EST 09/30/2024 4:29 PM EST Generic External Data Provider LAB BLOOD ORDERAB LES Final Result Performing Organization Address [facility] Co de Phone Number [facility] [address] [place] [phone] * Magnesium (09/30/2024 4:26 PM EST) Pathologist [facility] Magnesium 1.9 1.6 - 2.6 mg/dL [facility] 09/30/2024 4:26 PM EST 09/30/2024 4:29 PM EST Generic External Data Provider LAB BLOOD ORDERAB LES Final Result Performing Organization Address [facility] de Phone Number [facility] [address] [place] [phone] * (ABNORMAL) Basic Metabolic Panel (09/30/2024 4:26 PM EST) Pathologist [facility] Sodium 141 135 - 145 mmol/L [facility] Potassium 3.6 3.3 - 5.1 mmol/L [facility] Chloride 108 96 - 108 mmol/L [facility] Carbon Dioxide 25 22 - 29 mmol/L [facility] Anion Gap 12 12 - 20 [facility] Urea Nitrogen (BUN) 14 9 - 16 mg/dL [facility] Creatinine, Serum 0.93 0.5 - 1.4 mg/dL [facility] Creatinine Clr Calc Pharmacy 85.6 [facility] Comment:eGFR (calculated fro m the MDRD study equation) and eCrCl(calculated from the Cockcroft-Gault equation) are based ondifferent parameters and may not yield comparable results.If eCrCl result is absurd, please check patient'sheight/weight. Estimated Glomerular Filt Rate >60 [facility] Comment:Chronic Kidney Disea se: Estimated GFR < 60 mL/min/1.07x5Nbnrzj Kidney Disease: Estimated GFR < 15 mL/min/1.73m2 Glucose 125(H) 60 - 115 mg/dL [facility] Calcium 9.6 8.4 - 10.2 mg/dL [facility] 09/30/2024 4:26 PM EST 09/30/2024 4:29 PM EST us Generic External Data Provider LAB BLOOD ORDERAB LES Final Result [facility] [address] [place] [phone] * Hepatic Function Panel (09/30/2024 4:26 PM EST) Bilirubin, Total 0.9 0.0 - 1.0 mg/dL [facility] Bilirubin, Direct 0.2 0.0 - 0.5 mg/dL [facility] Aspartate Amino Transferase 25 5 - 37 U/L [facility] Alanine Aminotransferase 12 0 - 40 U/L [facility] Total Protein 7.8 6.5 - 8.0 g/dL [facility] Albumin Level 4.5 3.5 - 5.0 g/dL [facility] Alkaline Phosphatase 94 39 - 117 U/L [facility] 09/30/2024 4:26 PM EST 09/30/2024 4:29 PM EST us Generic External Data Provider LAB BLOOD ORDERAB LES Final Result Performing Organization Address City/[facility]/ZIP Co de Phone Number [facility] [address] [place] [address] [phone] * (ABNORMAL) Urinalysis, Complete, with Reflex to Culture (09/30/2024 4:26 PM EST) Color Urine Yellow [facility] Appearance Urine Clear [facility] PH 5.5 5.0 - 9.0 [facility] Glucose Urine UA Negative Negative mg/dL [facility] Urine Blood Negative Negative [facility] Specific Wallace - Urine <=1.005 1.005 - 1.025 [facility] Urine Protein Negative Neg-Trace mg/dL [facility] Urine Ketones Trace Negative mg/dL [facility] Nitrite Urine Negative Negative [facility] Leukocyte Esterase Urine Trace(A) Negative [facility] RBC Urine 0-2 0 - 2 /HPF [facility] Urine WBC 0-5 0 - 5 /HPF [facility] Urine Squamous Epithelial Cell 0-2 0 - 2 /HPF [facility] Urine Bacteria None Seen None Seen [facility] Hyaline Casts, Urine 0-2 0 - 2 /LPF [facility] 09/30/2024 4:26 PM EST 09/30/2024 4:29 PM EST Narrative [facility] - 09/30/2024 4:46 PM EST [id number], Clean Catch us Generic External Data Provider LAB URINE ORDERAB LES Final Result Performing Organization Address [facility]/ZIP Co de Phone Number [facility] [address] [place] [address] [phone] * Prothrombin Time-INR (09/30/2024 4:26 PM EST) Prothrombin Time 11.3 10.9 - 12.4 SEC [facility] INTERNATIONAL NORM RATIO 1.0 0.9 - 1.1 [facility] Comment:INTERNATIONAL NORMAL IZED RATIO (INR) REFERENCE RANGES Reference RangeFor patients not on anticoagulant therapy: 0.9 - 1.1INR ranges for oral anticoagulanttherapy:For prevention and treatment of venous thrombosis and pulmonary embolism: 2.0 - 3.0For acute myocardial infarction with aspirin therapy: 2.0 - 3.0For acute myocardial infarction without aspirin therapy: 3.0 - 4.0For patients with mechanical prosthetic heart valves: 2.5 - 3.5 09/30/2024 4:26 PM EST 09/30/2024 4:29 PM EST us Generic External Data Provider LAB BLOOD ORDERAB LES Final Result [facility] [address] [place] [phone] * (ABNORMAL) CBC auto differential (09/30/2024 4:26 PM EST) White Blood Count 7.2 4.8 - 10.8 X10*3/uL [facility] Red Blood Count 4.65 4.60 - 5.80 X10*6/uL [facility] Hemoglobin 14.2 14.0 - 18.0 g/dl [facility] Hematocrit 41.0(L) 42.0 - 52.0 % [facility] Mean Corpuscular Volume 88.2 80.0 - 98.0 fL [facility] Mean Corpuscular Hemoglobin 30.5 27.0 - 33.0 pg [facility] Mean Corpuscular HGB Conc 34.6 31.0 - 36.0 g/dl [facility] Red Cell Distribution Width 13.0 11.0 - 16.0 % [facility] Platelet Count 273 160 - 400 X10*3/uL [facility] Mean Platelet Volume 10.4 9.4 - 12.4 fL [facility] Neutrophils Percent Auto 68.9 45 - 73 % [facility] Imm Gran Pct Auto 0.3 0.0 - 0.4 % [facility] Lymphocytes Percent Auto 21.1 20 - 40 % [facility] Monocytes Percent Auto 8.1 2 - 11 % [facility] Eosinophils Percent Auto 1.0 0 - 4 % [facility] Basophils Percent Auto 0.6 0 - 2 % [facility] NRBC Pct Auto 0.0 0.0 - 0.2 /100WBC [facility] Neutrophils Absolute Auto 4.9 2.0 - 8.3 x10*3/uL [facility] Imm Gran Abs Auto 0.02 0.00 - 0.03 X10*3/uL [facility] Lymphocytes Absolute Auto 1.5 1.2 - 4.9 X10*3/uL [facility] Monocytes Absolute Auto 0.6 0.1 - 1.2 X10*3/uL [facility] Eosinophils Absolute Auto 0.1 0.0 - 0.4 X10*3/uL [facility] Basophils Absolute Auto 0.0 0.0 - 0.2 X10*3/uL [facility] NRBC Abs Auto 0.000 0.0 - 0.012 X10*3/uL [facility] 09/30/2024 4:26 PM EST 09/30/2024 4:29 PM EST us Generic External Data Provider LAB BLOOD ORDERAB LES Final Result Performing Organization Address City/State/[facility] Co de Phone Number [facility] [address] [place] [address] [phone] documented in this encounter Visit Diagnoses Diagnosis Renal calculi- Primary Calculus of kidney Hydronephrosis, unspecified hydronephrosis type documented in this encounter Additional Health Concerns Assessment Noted Time PHQ-9 Depression Total Score: 0 07/17/20 24 10:33 AM EST documented as of this encounter Care Teams Apartment Maintenance Relationship Specialty Start Date End Date Ashley Frankel MD [address] [place] [address] PCP - General Family Medicine 08/28/18 Viktor Sonya [address] 3rd [place] [address] Gastroenterology 07/17/24 Kishore Dorsey MD [address] [place] [address] Urology 07/17/24 Raheel Gee 5 [place], [place] 10[address] Pulmonary Disease 07/17/24 Riya Fulton [address] 3rd [place] [address] Cardiology 07/17/24 Sergio Hackett 300 [facility] [address]nd [place] [address] Orthopaedic Surgery 07/17/24 Dominga Silva, AnanthD [address] [place] [address] Pharmacist Internal Medicine 07/22/24 documented as of this encounter
--- OUTSIDE RECORDS SUMMARY | 2024-10-24 10:13 | XMS_ITS | Encounter Summary ---
Author Organization [employer] Address 75 [facility] 7t [place] [address] Care Team Providers Care Transportation Planning Technician Name Role Phone Ashley Frankel MD Primary Care Provider [phone] Hoang, November Unavailable Kishore Dorsey MD Unavailable [phone] Raheel Gee Unavailable [phone] Riya Fulton Unavailable Sergio Hackett Unavailable Unavailable Dominga Silva PharmD Unavailable Reason for Visit * Reason Comments Med Refill Encounter Details Date Type Department Care Team (Late st Contact Info) Description 07/24/2023 Refill [facility] [address] [place] [address] [facility] 230 [place], [place] [phone] Prostatitis, acute Social History Tobacco Use Types [...] Description 12/09/2024 8:00 AM EDT Office Visit [facility] [address] [place] [address] Jackie Peacock documented as of this encounter Visit Diagnoses Diagnosis Prostatitis, acute Acute prostatitis documented in this encounter Care Teams Transportation Planning Technician Relationship Specialty Start Date End Date Ashley Frankel MD [address] [place] [address] PCP - General Family Medicine 08/28/18November 11 [facility] 3rd [place] [address] Gastroenterology 07/17/24 Kishore Dorsey MD 10 [facility] [address] [place] [address] Urology 07/17/24 Raheel Gee 5 [place], [place] 10[address] Pulmonary Disease 07/17/24 Riya Fulton 11 [facility] 3rd [place] [address] Cardiology 07/17/24 Sergio Hackett [address] [place] [address] Orthopaedic Surgery 07/17/24 Dominga Silva, Mehrdad [address] [place] [address] Pharmacist Internal Medicine 07/22/24 [facility] 10/10/24 documented as of this encounter
--- OUTSIDE RECORDS SUMMARY | 2024-10-24 10:13 | XMS_ITS | Encounter Summary ---
Author Organization [employer] Address [address] [place] [address] [address]t [place] [address] Care Team Providers Care Cuff Runner Name Role Phone Ashley Frankel MD Primary Care Provider [phone] Viktor November Unavailable Kishore Dorsey MD Unavailable [phone] Raheel Gee Unavailable [phone] Riya Fulton Unavailable Sergio Hackett Unavailable Unavailable Dominga Silva PharmD Unavailable Encounter Details Date Type Department Care Team (Latest Contact Info) Description 07/04/[address] [facility] Dental, Provider, DDS Social History [...] AM EDT Office Visit [facility] ADULT DENTAL [address] [place] [address] Jackie Peacock documented as of this encounter Visit Diagnoses Not on filedocumented in this encounter Care Teams Cuff Runner Relationship Specialty Start Date End Date Ashley Frankel MD [address] [place] [address] PCP - General Family Medicine 08/28/18 Sonya Hoang [address] 3rd [place] [address] Gastroenterology 07/17/24 Kishore Dorsey MD [address] [place] [address] Urology 07/17/24 Raheel Gee 5 [place], [place] 1040 Pulmonary Disease 07/17/24 Riya Fulton 11 [facility] 3rd [place] [address] Cardiology 07/17/24 Sergio Hackett [address] [place] [address] Orthopaedic Surgery 07/17/24 Dominga Silva, AnanthD [address] [place] [address] Pharmacist Internal Medicine 07/22/24 De[facility] Psych[facility] 10/10/24 documented as of this encounter
--- OUTSIDE RECORDS SUMMARY | 2024-10-24 10:13 | XMS_ITS | Encounter Summary ---
Author Organization [employer] Address [address] [place] [address] [address] [address] Care Team Providers Care County Judge Name Role Phone Ashley Frankel MD Primary Care Provider [phone] Hoang, November Unavailable Kishore Dorsey MD Unavailable Raheel Gee Unavailable [phone] Riya Fulton Unavailable Sergio Hackett Unavailable Unavailable Dominga Silva PharmD Unavailable Encounter Details Date Type Department Care Team (Late st Contact Info) Description 07/25/2022 Abstract [facility] D[facility] [address] [place] [address] Dental, Provider, DDS Social History Tobacco Use [...] [facility] [address] [place] [address] Jackie Peacock documented as of this encounter [...] on filedocumented in this encounter Care Teams County Judge Relationship Specialty Start Date End Date Ashley Frankel MD [address] [place] [address] PCP - General Family Medicine 08/28/18November [address] [place] [address] Gastroenterology 07/17/24 Kishore Dorsey MD [address] [place] [address] Urology 07/17/24 Raheel Gee 5 [place], [place] 1040 Pulmonary Disease 07/17/24 Riya Fulton [address] [place] [address] Cardiology 07/17/24 Sergio Hackett [address] 2nd [place] [address] Orthopaedic Surgery 07/17/24 Dominga Silva, Mehrdad [address] [place] [address] Pharmacist Internal Medicine 07/22/24 [facility] 10/10/24 documented as of this encounter
--- OUTSIDE RECORDS SUMMARY | 2024-10-24 10:13 | XMS_ITS | Encounter Summary ---
Author Organization [employer] Address 75 [facility] 7t [place] [address] Care Team Providers Care Commissioning Editor Name Role Phone Ashley Frankel MD Primary Care Provider [phone] Hoang, November Unavailable Kishore Dorsey MD Unavailable Raheel Gee Unavailable [phone] Riya Fulton Unavailable Sergio Hackett Unavailable Unavailable Dominga SilvaD Unavailable [phone] Encounter Details Date Type Department Care Team (Late st Contact Info) Description 10/10/2024 Telephone [facility] [address] [place], [place] [phone] Ashley Frankel MD [address] [place], [place] [phone] Social History Tobacco Use Types Packs/Day Years [...] encounter Miscellaneous Notes * Telephone Encounter - Alexa Weiss - 10/10/2024 2:05 PM EST Pt reports he was at [facility] and wants to know the lab results. documented in this encounter Plan of Treatment Upcoming Encounters Date Type Department Care Team (Late st Contact Info) Description 12/09/2024 8:00 AM EDT Office Visit [facility] [address] [place] [address] Jackie Peacock documented as of this encounter Visit Diagnoses Not on filedocumented in this encounter Additional Health Concerns Assessment Noted Time PHQ-9 Depression Total Score: 0 07/17/20 10:33 AM EST documented as of this encounter Care Teams Commissioning Editor Relationship Specialty Start Date End Date Ashley Frankel MD [address] [place] [address] PCP - General Family Medicine 08/28/18November [address] 3rd [place] [address] Gastroenterology 07/17/24 Kishore Dorsey MD [address] [place] [address] Urology 07/17/24 Raheel Gee 5 [place], [place] 10[address] Pulmonary Disease 07/17/24 Riya Fulton [address] 3rd [place] [address] Cardiology 07/17/24 Sergio Hackett 300 [facility] 2nd [place] [address] Orthopaedic Surgery 07/17/24 Dominga Silva, AnanthD [address] [place] [address] Pharmacist Internal Medicine 07/22/24 [facility] 10/10/24 documented as of this encounter
--- OUTSIDE RECORDS SUMMARY | 2024-10-24 10:13 | XMS_ITS | Encounter Summary ---
Author Organization [employer] Address [address] [place] [address] 7t [place] [address] Care Team Providers Care Loan Interviewer Mortgage Name Role Phone Ashley Frankel MD Primary Care Provider [phone]- [phone] Hoang, November Unavailable Kishore Dorsey MD Unavailable [phone] Raheel Gee Unavailable [phone] Riya Fulton Unavailable Sergio Hackett Unavailable Unavailable Dominga Silva PharmD Unavailable Reason for Visit * Reason Onset Date Comments Nurse Triage 10/07/2024 Encounter Details Date Type Department Care Team (Late st Contact Info) Description 10/07/2024 Telephone [facility] MEDICINE [address] [place] [address] Ashley Frankel MD 230 [place], [place] [phone] Nurse Triage Social History Tobacco Use Types [...] the past 12 months, has t he [employer], gas, oil or water [employer] threatened to shut off services in your [...] encounter Miscellaneous Notes * Telephone Encounter - Susana Marcelino LPN - 10/07/2024 8:34 AM EST Triage call returned to patient who reports concerns post procedure with ureteral stent placed 09/30/24 for kidney stone. Patient with improvement with pain but is not sure what stone will look like when he passes it with voiding. Education and reassurance provided. No blood or pus in urine no fever.Is taking pyridium as ordered. ED note reviewed with patient. to follow and phone number provided to patient. Water intake encouraged and patient reports trying to increase fluids but that when he has to void it is urgent so does not drink as much water daily as needed. Patient to discuss with Urologist. Patient reminded of [facility] program as needed. [facility]t. Reviewed with patient reasons to call back. Pt verbalized understanding and agrees Protocol Used: Flank Pain (Adult) Protocol-Based Disposition: See in Office or Video Visit within 3 Days Override (Final) Disposition: Refer to Specialist Override Reason: Other Override Notes: Ureteral stent placed and advised follow up 2-3 weeks for removal Video visit not offered Positive Triage Question: * History of kidney stones * All higher-acuity triage questions were negative Care Advice Discussed: * Reasons To Call Back - Fever over 100.4 F (38.0 C) - Burning with urination or blood in urine - Pain lasts over 3 days - You become worse * Telephone Encounter - Mendoza Ramin - 10/07/2024 8:07 AM EST Symptoms: Urination Pain, Urine Symptoms Outcome: Schedule an urgent appointment (within 4 hours) or talk to a nurse or provider soon Reason: Pain when passing urine (peeing) The caller accepted this outcome. Contact pt at [phone] documented in this encounter Plan of Treatment Upcoming Encounters Date Type Department Care Team ([facility] st Contact Info) Description 12/09/2024 8:00 AM EDT Office Visit [facility] ADULT DENTAL [address] [place] [address] Jackie Peacock documented as of this encounter Visit Diagnoses Not on filedocumented in this encounter Additional Health Concerns Assessment Noted Time PHQ-9 Depression Total Score: 0 07/17/20 10:33 AM EST documented as of this encounter Care Teams Loan Interviewer Mortgage Relationship Specialty Start Date End Date Ashley Frankel MD [address] [place] [address] PCP - General Family Medicine 08/28/18 Viktor Sonya [address] 3rd [place] [address] Gastroenterology 07/17/24 Kishore Dorsey MD [address] [place] [address] Urology 07/17/24 Raheel Gee 5 [place], [place] [address] Pulmonary Disease 07/17/24 Riya Fulton [address] 3rd [place] [address] Cardiology 07/17/24 Sergio Hackett [address] [place] [address] Orthopaedic Surgery 07/17/24 Dominga Silva PharmD [address] [place] [address] Pharmacist Internal Medicine 07/22/24 documented as of this encounter
--- OUTSIDE RECORDS SUMMARY | 2024-10-24 10:13 | XMS_ITS | Encounter Summary ---
Author Organization [employer] Address [address] [facility] 7t [place] [address] Care Team Providers Care Supervisory It Specialist Name Role Phone Ashley Frankel MD Primary Care Provider [phone]- [phone] Hoang, November Unavailable Kishore Dorsey MD Unavailable Raheel Gee Unavailable [phone] Riya Fulton Unavailable Sergio Hackett Unavailable Unavailable Dominga Silva PharmD Unavailable Encounter Details Date Type Department Care Team (Late st Contact Info) Description 10/17/2024 Telephone [facility] MEDICINE 230 [place], [place] [phone] Ashley Frankel MD 230 [place], [place] [phone] Social History Tobacco Use Types Packs/Day Years [...] Description 12/09/2024 8:00 AM EDT Office Visit [facility] ADULT DENTAL [address] [place] [address] Jackie Peacock documented as of this encounter Visit Diagnoses Not on filedocumented in this encounter Additional Health Concerns Assessment Noted Time PHQ-9 Depression Total Score: 0 07/17/20 24 10:33 AM EST documented as of this encounter Care Teams Supervisory It Specialist Relationship Specialty Start Date End Date Ashley Frankel MD 230 [place] [address] PCP - General Family Medicine 08/28/18November [address] 3rd [place] [address] Gastroenterology 07/17/24 Kishore Dorsey MD [address] [place] [address] Urology 07/17/24 Raheel Gee 5 [place], [place] 1040 Pulmonary Disease 07/17/24 Riya Fulton 11 [facility] 3rd [place] [address] Cardiology 07/17/24 Sergio Hackett [facility] [address] [place] [address] Orthopaedic Surgery 07/17/24 Dominga Silva PharmD 230 [place] [address] Pharmacist Internal Medicine 07/22/24 [facility] Psychiatry 10/10/24 documented as of this encounter
--- OUTSIDE RECORDS SUMMARY | 2024-10-24 10:13 | XMS_ITS | Encounter Summary ---
Author Organization [employer] Address [address] [place] [address] 7t [place] [address] Care Team Providers Care Sand Buffer Name Role Phone Ashley Frankel MD Primary Care Provider [phone]- [phone] Viktor November Unavailable Kishore Dorsey MD Unavailable Raheel Gee Unavailable [phone] Riya Fulton Unavailable Sergio Hackett Unavailable Unavailable Dominga Silva PharmD Unavailable Encounter Details Date Type Department Care Team (Latest Contact Info) Description 06/08/[address] [facility] CON[facility] Dental, Provider, DDS Social History [...] Description 12/09/2024 8:00 AM EDT Office Visit [facility] ADULT DENTAL 230 [place], [place] [phone] Jackie Peacock documented as of this encounter Visit Diagnoses Not on filedocumented in this encounter Care Teams Sand Buffer Relationship Specialty Start Date End Date sAhley Frankel MD [address] [place], [place] [phone] PCP - General Family Medicine 08/28/18 Sonya Hoang [address] 3rd [place] [address] Gastroenterology 07/17/24 Kishore Dorsey MD [address] [place] [address] Urology 07/17/24 Raheel Gee 5 [place], [place] 1040 Pulmonary Disease 07/17/24 Riya Fulton 11 [facility] 3rd [place] [address] Cardiology 07/17/24 Sergio Hackett [address] [place] [address] Orthopaedic Surgery 07/17/24 Dominga Silva, AnanthD 230 [place] [address] Pharmacist Internal Medicine 07/22/24 [facility] Psych[facility] 10/10/24 documented as of this encounter
--- OUTSIDE RECORDS SUMMARY | 2024-10-24 10:13 | XMS_ITS | Encounter Summary ---
Author Organization [employer] Address [address] 7t [place] [address] Care Team Providers Care Employee Relations Administrator Name Role Phone Ashley Frankel MD Primary Care Provider [phone]- [phone] Viktor November Unavailable Kishore Dorsey MD Unavailable Raheel Gee Unavailable [phone] Riya Fulton Unavailable Sergio Hackett Unavailable Unavailable Dominga Silva PharmD Unavailable Reason for Visit * Reason Comments Difficulty Urinating Encounter Details Date Type Department Care Team (Late st Contact Info) Description 10/10/2024 1:40 PM EST Office Visit [facility] [address] [place] [phone] Ashley Frankel MD [address] [place], [place] [phone] Dysuria (Primary Dx); Dyslipidemia; Gastroesophageal reflux disease, unspecified whether esophagitis present; Benign prostatic hyperplasia with urinary obstruction; Anxiety Social History Tobacco Use Types Packs/Day Years [...] Sign Reading Time Taken Comments Blood Pressure 156/96 10/10/2024 1:23 PM EST Pulse 80 10/10/2024 1:23 PM EST Temperature 37 ??C (98.6 ??F) 10/10/2024 1:23 PM EST Respiratory Rate 17 10/10/2024 1:23 PM EST Oxygen Saturation - - Inhaled Oxygen Concentration - - Weight 77.7 kg (171 lb 6.4 oz) 10/10/2024 1:23 P M EST Height 172.7 cm (5' 8 ) 10/10/2024 1:23 PM EST Body Mass Index 26.06 10/10/2024 1:23 PM EST documented in this encounter Progress Notes * Homero Pathak - 10/10/2024 1:40 PM EST Subjective Bobby Velasco is a 59 y.o. male with past medical history of hypertension, Asthma, Dyslipidemia, type 2 diabetes, DISH, solitary pulmonary nodule, pulmonary nodules, and chest discomfort here for evaluation of hematuria beginning since he go discharged after cystoscopy on 10/02/24. Other associated sy mptoms include: dysuria and penile pain . Fever has been absent. Symptoms which are not present include: abdominal pain, back pain, and penile discharge. Reports he was only given a pain medication after discharge. Pt says he went to the ER last night and was prescribed a medication he has not picked up. He says he called his urologist office and spoke with a lady who is not his doctor. Pt shows me a medication, cephalexin 500mg, that he filled on 10/07/24, but has only taken one tablet. The following portions of the chart were reviewed this encounter and updated as appropriate: Sees Dr. Dorsey with Urology and seen last in 08/2024. Hospitalized 10/01/24 for Right ureteral stoneright hydronephrosis underwent Cystoscopy, right retrograde, right ureteroscopy laser lithotripsy stent insertion, 6 Citizen Of [place] by [address] Mayda Rodriguez. Prescribed dilaudid, senna and phenazopyridine. Per triage call on 10/07/24, pt reported concerns post procedure with ureteral stent placed 09/30/24 for kidney stone. Patient with improvement of pain but is not sure what stone will look like when he passes it with voiding. Education and reassurance provided. No blood or pus in urine and no fever. Is taking pyridium as ordered. ED note reviewed with patient. to follow and phone number provided to patient. Water intake encouraged and patient reported trying to increase fluids but that when he has to void it is urgent so does not drink as much water daily as needed. Patient to discuss with Urologist. Review of Systems Constitutional: Negative for fever and unexpected weight change. Respiratory: Negative for shortness of breath. Cardiovascular: Negative for chest pain. Gastrointestinal: Negative for abdominal pain. Genitourinary: Positive for dysuria and hematuria. Negative for difficulty urinating. Objective Visit Vitals BP (!) 156/96 (BP Location: Left arm, Patient Position: Sitting, BP Cuff Size: Adult) Pulse 80 Temp 98.6 ??F (37 ??C) (Oral) Resp 17 Ht 5' 8 (1.727 m) Wt 171 lb 6.4 oz (77.7 kg) BMI 26.06 kg/m?? Smoking Status Former BSA 1.93 m?? Physical Exam Constitutional: Appearance: Normal appearance. Cardiovascular: Rate and Rhythm: Normal rate. Pulmonary: Effort: Pulmonary effort is normal. Neurological: Mental Status: He is alert. Mental status is at baseline. Psychiatric: Behavior: Behavior normal. Problem List Items Addressed This Visit Dysuria - Primary Sees Dr. Dorsey with Urology and seen last in 08/2024. Hospitalized 10/01/24 for Right ureteral stoneright hydronephrosis underwent Cystoscopy, right retrograde, right ureteroscopy laser lithotripsy stent insertion, 6 Citizen [place] by [address] Mayda Rodriguez. Prescribed dilaudid, senna and phenazopyridine. Seen in the ER last night and was prescribed cephalexin 500mg, that he filled on 10/07/24,but has only taken one tablet. -encouraged to complete cephalexin and contact Urologist for scheduled follow-up. Likely passing his kidney tone. No clinical evidence of acute abdomen or pyelonephritis. Already onantibiotics. Encouraged to follow-up with Urologist. Symptoms mild. -ER precautions discussed. -Seek medical attention for worsening symptoms. I, Homero Pathak, am serving as a scribe to document services personally performed by Dr. Hunter, based on the patient's response to questions by provider and providers statements to me. documented in this encounter Miscellaneous Notes * Assessment & Plan Note - Homero Pathak - 10/10/2024 1:40 PM ESTAssociated Problem(s): Dysuria (Resolved 10/24/2024) Sees Dr. Dorsey with Urology and seen last in 08/2024. Hospitalized 10/01/24 for Right ureteral stoneright hydronephrosis underwent Cystoscopy, right retrograde, right ureteroscopy laser lithotripsy stent insertion, 6 Citizen [place] by [address] Mayda Rodriguez. Prescribed dilaudid, senna and phenazopyridine. Seen in the ER last night and was prescribed cephalexin 500mg, that he filled on 10/07/24,but has only taken one tablet. -encouraged to complete cephalexin and contact Urologist for scheduled follow-up. documented in this encounter Plan of Treatment Upcoming Encounters Date Type Department Care Team (Late st Contact Info) Description 12/09/2024 8:00 AM EDT Office Visit [facility] ADULT DENTAL [address] [place] [address] Jackie Peacock documented as of this encounter Visit Diagnoses Diagnosis Dysuria- Primary Dyslipidemia Other and unspecified hyperlipidemia Gastroesophageal reflux disease, unspecified whether esophagitis present Benign prostatic hyperplasia with urinary obstruction Anxiety Anxiety state, unspecified documented in this encounter Additional Health Concerns Assessment Noted Time PHQ-9 Depression Total Score: 0 07/17/20 10:33 AM EST documented as of this encounter Care Teams Employee Relations Administrator Relationship Specialty Start Date End Date Ashley Frankel MD 230 [place] [address] PCP - General Family Medicine 08/28/18November [address] [address] Gastroenterology 07/17/24 Kishore Dorsey MD [address] [facility] [address] [place] [address] Urology 07/17/24 Raheel Gee 5 [place], [place] 10[address] Pulmonary Disease 07/17/24 Riya Fulton [address] [address] Cardiology 07/17/24 Sergio Hackett [address] [place] [address] Orthopaedic Surgery 07/17/24 Dominga Silva PharmD 230 [place] [address] Pharmacist Internal Medicine 07/22/24 De. [facility] Psychiatry 10/10/24 documented as of this encounter
--- OUTSIDE RECORDS SUMMARY | 2024-10-24 10:13 | XMS_ITS | Encounter Summary ---
Author Organization [employer] Address [address] [facility] 7t [place] [address] Care Team Providers Care Adapted Physical Education Teacher Name Role Phone Ashley Frankel MD Primary Care Provider [phone]- [phone] Hoang, November Unavailable Kishore Dorsey MD Unavailable [phone] Raheel Gee Unavailable [phone] Riya Fulton Unavailable Sergio Hackett Unavailable Unavailable Dominga Silva PharmD Unavailable [phone] Encounter Details Date Type Department Care Team (Late st Contact Info) Description 07/18/2023 Telephone [facility] MEDICINE 230 [place], [place] [phone] Ashley Frankel MD 230 [place], [place] [phone] Social History Tobacco Use Types Packs/Day Years [...] Bia Rose - 08/10/2023 1:42 PM EST Associate Biological [employer] called pt to request verification of insurance/Medicare [...] Description 12/09/2024 8:00 AM EDT Office Visit [facility] ADULT DENTAL 230 [place] [address] Jackie Peacock documented as of this encounter Visit Diagnoses Not on filedocumented in this encounter Care Teams Adapted Physical Education Teacher Relationship Specialty Start Date End Date Ashley Frankel MD 230 [place] [address] PCP - General Family Medicine 08/28/18HoangNovember [address] 3rd [place] [address] Gastroenterology 07/17/24 Kishore Dorsey MD [address] [place] [address] Urology 07/17/24 Raheel Gee 5 [place], [place] 10[address] Pulmonary Disease 07/17/24 Riya Fulton [address] 3rd [place] [address] Cardiology 07/17/24 Sergio Hackett 300 [facility] 2nd [place] [address] Orthopaedic Surgery 07/17/24 Dominga Silva, AnanthD 230 [place] [address] Pharmacist Internal Medicine 07/22/24 De. [facility] Psychiatry 10/10/24 documented as of this encounter
--- OUTSIDE RECORDS SUMMARY | 2024-10-24 10:13 | XMS_ITS | Encounter Summary ---
Author Organization [employer] Address [address] [facility] 7t [place] [address] Care Team Providers Care Automotive Airconditioning Mechanic Name Role Phone Ashley Frankel MD Primary Care Provider [phone]- [phone] November Unavailable Kishore Dorsey MD Unavailable [phone] Raheel Gee Unavailable [phone] Riya Fulton Unavailable Sergio Hackett Unavailable Unavailable Dominga SilvaD Unavailable Reason for Visit * Reason Onset Date Comments Results 09/30/2024 Encounter Details Date Type Department Care Team (Late st Contact Info) Description 09/30/2024 Telephone [facility] MEDICINE 230 [place], [place] [phone] Aurora Alexandre, RN Results Social History Tobacco Use Types Packs/Day Years [...] encounter Miscellaneous Notes * Telephone Encounter - Aurora Alexandre RN - 09/30/2024 2:35 PM EST TC placed to pt to advise of Retroperitoneal US results below which showed moderate to severe righthydronephrosis. Pt was seen by Dr. Mac on 09/27/2024 at the [facility] for lower back pain and concentrated urine. Pt still confirms right lower back pain. No fever or blood noted in the urine. Pt was advised per PCP recommendation to be assessed further in the ED due to these findings. Pt confirms that he will present to [facility] today. ----- Message from Ashley Frankel MD sent at 09/30/2024 2:09 PM EST ----- Please let pt know US shows Moderate to severe right hydronephrosis ( with 9 mm stone distal right ureter. If pt symptomatic he should go to Er for evaluation. I will place new referral for urology.He should also call his urologist to get apt REE. Thank you. documented in this encounter Plan of Treatment Upcoming Encounters Date Type Department Care Team (Late st Contact Info) Description 12/09/2024 8:00 AM EDT Office Visit [facility] ADULT DENTAL [address] [place] [address] Jackie Peacock documented as of this encounter Visit Diagnoses Not on filedocumented in this encounter Additional Health Concerns Assessment Noted Time PHQ-9 Depression Total Score: 0 07/17/20 10:33 AM EST documented as of this encounter Care Teams Automotive Airconditioning Mechanic Relationship Specialty Start Date End Date Ashley Frankel MD 230 [place] [address] PCP - General Family Medicine 08/28/18November [address] [address] Gastroenterology 07/17/24 Kishore Dorsey MD 10 [facility] [address] [place] [address] Urology 07/17/24 Raheel Gee 5 [place], [place] 1040 Pulmonary Disease 07/17/24 Riya Fulton [address] [address] Cardiology 07/17/24 Sergio Hackett [address] [place] [address] Orthopaedic Surgery 07/17/24 Dominga Silva, Mehrdad 230 [place] [address] Pharmacist Internal Medicine 07/22/24 documented as of this encounter
--- OUTSIDE RECORDS SUMMARY | 2024-10-24 10:13 | XMS_ITS | Encounter Summary ---
Author Organization [employer] Address [address] [facility] 7t [place] [address] Care Team Providers Care End Maker Name Role Phone Ashley Frankel MD Primary Care Provider [phone]- [phone] Viktor November Unavailable Kishore Dorsey MD Unavailable Raheel Gee Unavailable [phone] Riya Fulton Unavailable Sergio Hackett Unavailable Unavailable Dominga Silva PharmD Unavailable Reason for Visit * Reason Onset Date Comments chartprep 10/17/2024 Encounter Details Date Type Department Care Team (Late st Contact Info) Description 10/17/2024 Telephone [facility] MEDICINE 230 [place] [address] Ashley Frankel MD 230 [place], [place] [phone] chartprep Social History Tobacco Use Types Packs/Day Years [...] the past 12 months, has t he [employer], gas, oil or water [employer] threatened to shut off services in your [...] encounter Miscellaneous Notes * Telephone Encounter - Cori Thompson MA - 10/17/2024 10:48 AM EST ..Chart Prep Labs: not applicable Images: done Vaccines due: PCV20 Due and Shingles in pharmacy Due Referrals: Requested notes from Urology Screenings: Not Applicable Overdue care gaps: SDOH and Oral Health documented in this encounter Plan of Treatment Upcoming Encounters Date Type Department Care Team (Late st Contact Info) Description 12/09/2024 8:00 AM EDT Office Visit [facility] ADULT DENTAL 230 [place] [address] Jackie Peacock documented as of this encounter Visit Diagnoses Not on filedocumented in this encounter Additional Health Concerns Assessment Noted Time PHQ-9 Depression Total Score: 0 07/17/20 24 10:33 AM EST documented as of this encounter Care Teams End Maker Relationship Specialty Start Date End Date Ashley Frankel MD 230 [place] [address] PCP - General Family Medicine 08/28/18 Sonya Hoang [address] [place] [address] Gastroenterology 07/17/24 Kishore Dorsey MD [address] [place] [address] Urology 07/17/24 Raheel Gee 5 [place], [place] 10[address] Pulmonary Disease 07/17/24 Riya Fulton 11 [facility] 3rd [place] [address] Cardiology 07/17/24 Sergio Hackett [address] [facility] [address]nd [place] [address] Orthopaedic Surgery 07/17/24 Dominga Silva, AnanthD 230 [place] [address] Pharmacist Internal Medicine 07/22/24 De. [facility] Psychiatry 10/10/24 documented as of this encounter
--- OUTSIDE RECORDS SUMMARY | 2024-10-24 10:14 | XMS_ITS | Encounter Summary ---
Author Organization [email or web address] Address [address] [facility] 7t [place] [address] Care Team Providers Care Motorboat Operator Name Role Phone Ashley Frankel MD Primary Care Provider [phone] Viktor November Unavailable Kishore Dorsey MD Unavailable Raheel Gee Unavailable [phone] Riya Fulton Unavailable Sergio Hackett Unavailable Unavailable Dominga Silva PharmD Unavailable [phone] Reason for Visit * Reason Comments Constipation Encounter Details Date Type Department Care Team (Late st Contact Info) Description 09/28/2024 11:00 AM EST Office Visit [facility] [address] [place] [address] [phone] Name, MD Les [address] [place] [address] [phone] Constipation, unspecified constipation type (Primary Dx); Primary [...] the past 12 months, has t he [employer], gas, oil or water [employer] threatened to shut off services in your [...] Description 12/09/2024 8:00 AM EDT Office Visit [facility] [address] [place] [address] Jackie Peacock documented as of this encounter Visit Diagnoses Diagnosis Constipation, unspecified constipation type- Primary Primary hypertension Unspecified essential hypertension documented in this encounter Additional Health Concerns Assessment Noted Time PHQ-9 Depression Total Score: 0 07/17/20 24 10:33 AM EST documented as of this encounter Care Teams Motorboat Operator Relationship Specialty Start Date End Date Ashley Frankel MD [address] [place] [address] PCP - General Family Medicine 08/28/[address] 3rd [place] [address] Gastroenterology 07/17/24 Kishore Dorsey MD [address] [place] [address] Urology 07/17/24 Raheel Gee 5 [place] [address] Pulmonary Disease 07/17/24 Riya Fulton [address] 3rd [place] [address] Cardiology 07/17/24 Sergio Hackett [address] [facility] [address] [place] [address] Orthopaedic Surgery 07/17/24 Dominga Silva PharmD [address] [place] [address] Pharmacist Internal Medicine 07/22/24 documented as of this encounter
--- OUTSIDE RECORDS SUMMARY | 2024-10-24 10:14 | XMS_ITS | Encounter Summary ---
Author Organization [employer] Address 75 [facility] 7t [place] [address] Care Team Providers Care Extractions Technologist Name Role Phone Ashley Frankel MD Primary Care Provider [phone] November Unavailable Kishore Dorsey MD Unavailable [phone] Raheel Gee Unavailable [phone] Riya Fulton Unavailable Sergio Hackett Unavailable Unavailable Dominga SilvaD Unavailable Encounter Details Date Type Department Care [...] Description 12/09/2024 8:00 AM EDT Office Visit [facility] [address] [place] [address] Jackie Peacock documented as of this encounter Visit Diagnoses Not on filedocumented in this encounter Additional Health Concerns Assessment Noted Time PHQ-9 Depression Total Score: 0 07/17/20 24 10:33 AM EST documented as of this encounter Care Teams Extractions Technologist Relationship Specialty Start Date End Date Ashley Frankel MD [address] [place] [address] PCP - General Family Medicine 08/28/18November [address] [address] Gastroenterology 07/17/24 Kishore Dorsey MD [address] [place] [address] Urology 07/17/24 Raheel Gee 5 [place], [place] 10[address] Pulmonary Disease 07/17/24 Riya Fulton 11 [facility] 3rd [place] [address] Cardiology 07/17/24 Sergio Hackett [address] 2nd [place] [address] Orthopaedic Surgery 07/17/24 Dominga Silva PharmD [address] [place] [address] Pharmacist Internal Medicine 07/22/24 documented as of this encounter
--- OUTSIDE RECORDS SUMMARY | 2024-10-24 10:14 | XMS_ITS | Data Portability ---
Author Organization [place] - [facility], Allergy Address [address] [place] [phone] Care Team Providers Care Toggle Press Folder And Feeder Name Role Phone NAME, LINDSAY Primary Care [...] follow-up after for review and further planning. [email or web address] Not available 09/16/2024 13:47:52 Plan of Treatment Reminders Order Date Submit Date Provider Last Modified By Organization Details Last Modified Time Details Appointments None recorded. Lab None recorded. Referral None recorded. Procedures allergy testing, skin prick (PROC) 2024 025 [email or web address] Not available 14:57:49 intradermal allergy skin testing (PROC) 2024 025 [email or web address] Not available 14:57:50 pulmonary function test procedure (PROC) 2024 025 [email or web address] Not available 14:57:50 pulse oximetry (PROC) 2024 025 [email or web address] Not available 14:57:50 Surgeries None recorded. Imaging CT, maxillofaci al, w/o contrast 2024 025 [email or web address] [facility], [facility] [address], [place], [address], 5 15:43:34 Medication Orders None recorded. Patient TargetsNo targets recorded. Patient InstructionsNo instructions recorded. Reason for Referral None Reported. Problems Name Problem SNOMED Code Status Onset Date Resolution Date Notes Provider Name and Address Organization Details Recorded Time Allergic rhinitis 95349943 Active 2018 Perennial allergic rhinitis; Note: Date Diagnosed : 11/26/2018 12:00 PM (J30.89) Not Available [facility] 4 02:51:24 Deviated nasal septum 643721388 Active 2017 Deviated nasal septum; Note: Date Diagnosed : 05/09/2018 11:11 AM (J34.2) Not Available [facility] 4 02:51:18 Tinnitus of right ear 80639894339 08 Active 2017 Tinnitus, right ear; Note: Date Diagnosed : 01/16/2018 3:42 PM (H93.11) Not Available [facility] 4 02:51:19 Sensorine ural hearing loss of bilateral ears 656877927 Active 2017 Sensorine ural hearing loss, bilateral ; Note: Date Diagnosed : 01/16/2018 3:42 PM (H90.3) Not Available [facility] 4 02:51:21 Nasal congestio n 11894075 Active 2017 Nasal congestio n; Note: Date Diagnosed : 05/09/2018 11:11 AM (R09.81) Not Available [facility] 4 02:51:19 Dizziness and giddiness 296357724 Active 2017 Dizziness and giddiness ; Note: Date Diagnosed : 01/16/2018 3:42 PM (R42) Not Available [facility] 4 02:51:20 Headache 37115248 Active 2017 Headache; Note: Date Diagnosed : 05/09/2018 11:06 AM (R51) Not Available [facility] 4 02:51:20 Impacted cerumen of bilateral ears 45352461776 51939 Active 2024 MAXWELL DALY PA-C [address] [place],[facility], [place], [address] , [facility] 5 13:48:02 Seasonal allergic rhinitis 864219132 Active 2024 MAXWELL DALY PA-C [address] [facility] [place] [address], [place], [address] , [facility] 13:48:08 Non-aller gic rhinitis 68113529702 1 Active 2024 MAXWELL DALY PA-C [address] [facility] [place],[facility], [place], [address] , [facility] 13:48:08 Problem Notes None recorded. Procedures Surgical History Date Name Laterality Status Provider Name and Address Organization Details Recorded Time Cerumen removal without microscope bilat completed MAXWELL DALY PA-C [address] [facility] [place] [address], [place], [address], [facility] 09/16/2024 13:46:50 Imaging Results None recorded. Procedure Notes None recorded. Medical Equipment None Reported. Allergies Allergen ID Allergen Name Allergen Category Reaction Reaction Severity Criticality Documentation Date Start Date Code Code System Note Provider Name and Address Organization Details Recorded Time 263846 amoxicill in medicatio n other Not available Not available 01/09/2024 723 RxNorm React ion: unkno wn, unspe cifie d;; Not Available [facility] 4 01:20:48 197148 Product containin g penicilli n (product) medicatio n other Not available Not available 01/09/2024 08084 8001 SNOMED React ion: unkno wn, unspe cifie d;; Not Available [facility] 4 01:20:48 Medications Name Sig Start Date [...] mg tablet 01/16 completed Medicati on ID: [id number] D uration Value: 30 Reason: () Brand [...] mg tablet 09/16 completed Medicati on ID: [id number] D uration Value: 30 Brand Name: amlodipi [...] mg tablet 10/12 completed Medicati on ID: [id number] D uration Value: 30 Brand Name: carvedil ol Send Method: E-Prescr ibed Sub s Allowed: subs OK Speci al Instruct ion: TAKE 1 TABLET BY MOUTH TWICE DAILY WITH FOOD Med icationG enericNa me: carvedil ol Not Available Not Available Not Available methocarb indy 750 mg tablet TAKE 1 TABLET (750 MG) BY MOUTH 2 TIMES DAILY FOR 10 DAYS. 09/16 completed Not Available Not Available Not Available tamsulosi n 0.4 mg capsule 01/16 completed Medicati on ID: [id number] D uration Value: 30 Reason: () Brand Name: tamsulos in Send Method: E-Prescr ibed Sub s Allowed: subs OK Speci al Instruct ion: TAKE 1 CAPSULE EVERY [...] mg tablet 10/12 completed Medicati on ID: [id number] D uration Value: 10 Brand Name: Viagra S end Method: E-Prescr ibed Sub s Allowed: subs OK Speci al Instruct ion: TAKE 1/2 TO 1 [...] mg tablet 10/12 completed Medicati on ID: [id number] D uration Value: 5 Brand Name: levoflox acin Sen d Method: E-Prescr ibed Sub s Allowed: subs OK Speci al Instruct ion: TAKE 1 TABLET BY [...] 24 hr 05/09 completed Medicati on ID: [id number] D uration Value: 30 Reason: () Brand Name: metsarah n Send Method: E-Prescr ibed Sub s Allowed: subs OK Speci al Instruct ion: TAKE 2 TABLETS BY MOUTH [...] Lite Strips 01/16 completed Medicati on ID: [id number] D uration Value: 17 Reason: () Brand [...] Updated DateTime 09/16/2024 170.18 cm 27.9 kg/m2 09898.44 g Gail Hurt [place] - [facility] 09/16/2024 13:25:10 Social History None recorded. Functional Status None recorded. Mental Status None recorded. Family History Nothing Reported. Medical History No medical history recorded. Past Encounters Encounter ID Performer Location Encounter Start Date Encounter Closed Date Diagnosis/Indication Diagnosis SNOMED-CT Code Diagnosis ICD10 Code Diagnosis Note [id number] MAXWELL DALY PA-C [facility] [address] [phone] 09/16/2024 13:13:53 09/16/2024 13:45:47 Nasal congestion 19835136 R09.81 Allergic rhinitis 342885 04 J30.89 Impacted c erumen of bilateral ears 7616900083 449033 H61.23 Health Concerns Section Related Observation LastModified by Organization Detai ls LastModified Time None Recorded Concern Status LastModified by Organization Details LastModified Time None Recorded Advance Directives Directive None Recorded Payers Encounter Date Sequence Insurance Name Policy Number Policy Ortiz Covered Member ID Ortiz Member ID Guarantor Name 09/16/2024 1 [facility] - DOS ON OR AFTER 2022 - MEDICARE ADVANTAGE [place] (MEDICARE REPLACEMENT/ADV ANTAGE - PPO) Bobby Velasco [id number] Bobby Velasco Notes Date Note Type Note [...] in his ears bilaterally. MAXWELL DALY PA-C [address] [place] [address], [place], [address], [facility] - [facility] 09/16/2024 13:49:51
--- OUTSIDE RECORDS SUMMARY | 2024-10-24 10:14 | XMS_ITS | Encounter Summary ---
Author Organization [employer] Address [address] [place] [address] [address] [place] [address] Care Team Providers Care Television Parts Tester Name Role Phone Ashley Frankel MD Primary Care Provider [phone] Viktor November Unavailable Kishore Dorsey MD Unavailable Raheel Gee Unavailable [phone] Riya Fulton Unavailable Sergio Hackett Unavailable Unavailable Dominga Silva PharmD Unavailable Encounter Details Date Type Department Care Team (Late st Contact Info) Description 09/13/2022 Abstract [facility] [address] [place] [address] Ashley Frankel MD [address] [place], [place] [phone] Social History Tobacco Use Types Packs/Day Years [...] Description 12/09/2024 8:00 AM EDT Office Visit [facility] [address] [place] [address] Jackie Peacock documented as of this encounter Procedures Procedure Name Priority Date/Time Associated Diagnosis Comments COLONOSCOPY Routine 09/06/2012 documented in this encounter Results * Colonoscopy (09/06/2012) Colonoscopy normal with Dr. Barrera us Historical Provider HEALTH MAINTENANCE Final Result documented in this encounter Visit Diagnoses Not on filedocumented in this encounter Care Teams Television Parts Tester Relationship Specialty Start Date End Date Ashley Frankel MD [address] [place] [address] PCP - General Family Medicine 08/28/18HoangNovember 11 [facility] 3rd [place] [address] Gastroenterology 07/17/24 Kishore Dorsey MD [address] [place] [address] Urology 07/17/24 Raheel Gee 5 [place], [place] [address] Pulmonary Disease 07/17/24 Riya Fulton [address] [place] [address] Cardiology 07/17/24 Sergio Hackett [address] [place] [address] Orthopaedic Surgery 07/17/24 Dominga Silva PharmD [address] [place] [address] Pharmacist Internal Medicine 07/22/24 [facility] 10/10/24 documented as of this encounter
--- OUTSIDE RECORDS SUMMARY | 2024-10-24 10:14 | XMS_ITS | Encounter Summary ---
Author Organization [employer] Address [address] [facility] 7t [place] [address] Care Team Providers Care Milliner Helper Name Role Phone Ashley Frankel MD Primary Care Provider [phone] November Unavailable Kishore Dorsey MD Unavailable Raheel Gee Unavailable [phone] Riya Fulton Unavailable Sergio Hackett Unavailable Unavailable Dominga SilvaD Unavailable Encounter Details Date Type Department Care Team (Latest Contact Info) Description 10/24/2024 Travel Social History Tobacco Use Types Packs/Day [...] Description 12/09/2024 8:00 AM EDT Office Visit [facility] [address] [place] [address] Jackie Peacock documented as of this encounter Visit Diagnoses Not on filedocumented in this encounter Additional Health Concerns Assessment Noted Time PHQ-9 Depression Total Score: 0 07/17/20 24 10:33 AM EST documented as of this encounter Care Teams Milliner Helper Relationship Specialty Start Date End Date Ashley Frankel MD [address] [place] [address] PCP - General Family Medicine 08/28/18November [address] [address] Gastroenterology 07/17/24 Kishore Dorsey MD [address] [facility] [address] [place] [address] Urology 07/17/24 Raheel Gee 5 [place], [place] 10[address] Pulmonary Disease 07/17/24 Riya Fulton [address] [facility] 3rd [place] [address] Cardiology 07/17/24 Sergio Hackett [address]nd [place] [address] Orthopaedic Surgery 07/17/24 Dominga Silva PharmD [address] [place] [address] Pharmacist Internal Medicine 07/22/24 [facility] 10/10/24 documented as of this encounter
--- OUTSIDE RECORDS SUMMARY | 2024-10-24 10:14 | XMS_ITS | Encounter Summary ---
[facility] [address] [place] [address] Care Team Providers Care [employer] Name Role Phone Ashley Frankel MD Primary Care Provider [phone]- [phone] Reason for Visit * Reason Comments Flank Pain Bl flank pain here r ecently with kidney stone that had to get broken up on the right . Now having pain while urinating and left flank pain Encounter Details Date Type Department Care Team (Late st Contact Info) Description 10/12/2024 3:45 AM EST - 10/12/2024 9:39 AM EST Emergency [facility] Emergency [address] [place] [id number] Smith Quan MD [address] [address] Urinary tract infection with hematuria, site unspecified (Primary Dx); Kidney stone; Acute urinary tract infection Discharge Disposition: Home or Self Care Social History Tobacco Use Types Packs/Day Years Used Date Smoking Tobacco: Never Smokeless Tobacco: Never Tobacco Cessation:Counseling Given: Not Answered Sex and Gender Information Value Date Recorded Sex Assigned at Male 10/12/2024 1:34 AM EST Legal Sex Male 8:29 AM EST Gender Identity Male 10/12/2024 1:34 AM EST Sexual Orientation Choose not to disclose 2024 1:34 AM EST documented as of this encounter Last Filed [...] Mass Index 28.04 10/11/2024 10:04 PM EST documented in this encounter Discharge Instructions * Discharge Instructions* RUTH ANN Varghese - 10/12/2024 9:20 AM EST Call your urologist office follow-up to be seen on Monday. Take medication as directed. Your antibiotic has been changed today. documented in this encounter Medications at Time of Discharge levoFLOXacin (LEVAQUIN) 750 mg tablet Take 1 tablet (750 mg total) by mouth 1 (one) time each day for 7 days. 7 each 10/12/2024 5 ondansetron ODT (ZOFRAN-ODT) 4 mg disintegrating tabletIndications:Ki dney stone,Acute urinary tract infection,Urinary tract infection with hematuria, site unspecified Let 1 tablet dissolve under the tongue three times daily as needed for nausea or vomiting. 10 tablet 10/12/2024 5 traMADoL (ULTRAM) 50 mg tabletIndications:Saman dney stone,Acute urinary tract infection,Urinary tract infection with hematuria, site unspecified Take 1 tablet (50 mg total) by mouth every 6 (six) hours if needed for severe pain for up to 3 days. Max Daily Amount: 200 mg 12 tablet 10/12/2024 5 documented as of this encounter Ordered Prescriptions Prescription Sig Dispense Quantity Refills Last Filled Start Date End Date ondansetron ODT (ZOFRAN-ODT) 4 mg disintegrating tabletIndications:Ki dney stone,Acute urinary tract infection,Urinary tract infection with hematuria, site unspecified Let 1 tablet dissolve under the tongue three times daily as needed for nausea or vomiting. 10 tablet 10/12/2024 5 traMADoL (ULTRAM) 50 mg tabletIndications:Ki dney stone,Acute urinary tract infection,Urinary tract infection with hematuria, site unspecified Take 1 tablet (50 mg total) by mouth every 6 (six) hours if needed for severe pain for up to 3 days. Max Daily Amount: 200 mg 12 tablet 10/12/2024 5 levoFLOXacin (LEVAQUIN) 750 mg tablet Take 1 tablet (750 mg total) by mouth 1 (one) time each day for 7 days. 7 each 10/12/2024 5 documented in this encounter Discharge Disposition Disposition Code Departure Means Destination Comment s Home or Self Care documented in this encounter Progress Notes * Jey Fuentes RN - 10/11/2024 10:04 PM EST Bl flank pain here recently with kidney stone that had to get broken up on the right . Now having pain while urinating and left flank pain * RUTH ANN Rubi - 10/11/2024 9:59 PM EST Emergency Medicine Note Patient Name: Bobby Velasco Initial Evaluation: 10/11/2024 : 1965 Patient's PCP: Ashley Frankel MD Emergency Physician: RUTH ANN Rubi History of Present Illness Chief Complaint: Chief Complaint Patient presents with ??? Flank Pain Bl flank pain here recently with kidney stone that had to get broken up on the right . Now having pain while urinating and left flank pain HPI: 59-year-old male with past medical history of hypertension, asthma, diabetes, kidney stones presenting today for 1 week of bilateral flank pain right greater than left, worsening over the last 3days. Per outpatient records, patient sees Dr. Goodrich with urology, hospitalized 10/01/2024 for right ureteral stone, right hydronephrosis and underwent cystoscopy, right retrograde, right ureteroscopy laser lithotripsy stent insertion with Dr. Lisa piper. Patient has been taking Pyridium andcefoxitin as prescribed. Reports that he is experiencing worsening pain, now suprapubic. He is worried that he has retained stone.. No fever or chills, nausea or vomiting. No change in bowel habits. ROS: I have performed a ROS with the pertinent positives and negatives documented in the history ofpresent illness. Previous History Past Medical History: Diagnosis Date ??? Diabetes mellitus (CMS/HCC) ??? Hypertension No past surgical history on file. Social History Tobacco Use ??? Smoking status: Never ??? Smokeless tobacco: Never No family history on file. is allergic to clindamycin, penicillins, and doxycycline. No current facility-administered medications on file prior to encounter. No current outpatient medications on file prior to encounter. Physical Exam ED Triage Vitals Temp Heart Rate Resp BP 10/11/24 2204 10/11/24 2204 10/11/24 2204 10/11/24 220 36.6 ??C (97.9 ??F) 85 18 (!) 159/95 SpO2 Temp Source Heart Rate Source Patient Position 10/11/24 2204 10/11/24 2204 10/12/24 0623 10/12/24 0145 98 % Oral Monitor Sitting BP Location FiO2 (%) 10/12/24 0145 -- Left arm;Upper Physical Exam Constitutional: General: He is awake. He is not in acute distress. Appearance: Normal appearance. He is not ill-appearing or toxic-appearing. HENT: Head: Normocephalic and atraumatic. Eyes: Conjunctiva/sclera: Conjunctivae normal. Cardiovascular: Rate and Rhythm: Normal rate and regular rhythm. Pulses: Normal pulses. Heart sounds: Normal heart sounds. Pulmonary: Effort: Pulmonary effort is normal. No respiratory distress or retractions. Breath sounds: Normal breath sounds. Abdominal: General: Abdomen is flat. There is no distension. Tenderness: There is abdominal tenderness (Suprapubic). There is right CVA tenderness. There is no left CVA tenderness or guarding. Musculoskeletal: General: Normal range of motion. Cervical back: Normal range of motion and neck supple. Skin: General: Skin is warm and dry. Neurological: Mental Status: He is alert, oriented to person, place, and time and easily aroused. Mental status is at baseline. Gait: Gait normal. Psychiatric: Mood and Affect: Mood normal. Behavior: Behavior normal. Thought Content: Thought content normal. Judgment: Judgment normal. Results Labs Reviewed COMPREHENSIVE METABOLIC PANEL - Abnormal Result Value Sodium 138 Potassium 4.3 Chloride 107 CO2 30 Anion Gap 1 (*) Glucose 126 (*) BUN 15 Creatinine 1.15 eGFR 73 BUN/Creatinine Ratio 13.0 Calcium 9.8 AST (SGOT) 24 ALT (SGPT) 22 Alkaline Phosphatase 100 Total Protein 6.9 Albumin 3.9 Total Bilirubin 0.6 CBC WITH AUTO DIFFERENTIAL - Abnormal WBC 7.7 RBC 4.60 Hemoglobin 14.1 Hematocrit 42.7 MCV 92.2 MCH 30.5 MCHC 33.0 RDW 12.8 Platelets 327 MPV 10.4 NRBC 0.0 NRBC Absolute 0.00 Neutrophils Relative 66.8 Lymphocytes Relative 21.5 Monocytes Relative 9.6 Eosinophils Relative 1.2 Basophils Relative 0.4 Immature Granulocytes Relative 0.5 Neutrophils Absolute 5.12 Lymphocytes Absolute 1.65 Monocytes Absolute 0.74 Eosinophils Absolute 0.09 Basophils Absolute 0.03 Immature Granulocytes Absolute 0.04 (*) URINALYSIS WITH REFLEX MICROSCOPIC AND CULTURE - Abnormal Specific [place] Urine 1.014 pH, Urine 5.5 Leukocytes, Urine Moderate (*) Nitrite, Urine Positive (*) Protein, Urine 300 (*) Glucose, Urine Negative Ketones, Urine Negative Urobilinogen, Urine 1.0 Bilirubin, Urine Small (*) Blood, Urine Large (*) RBC, Urine 1,724.4 (*) WBC, Urine 48.9 (*) Squamous Epithelial, Urine >100 (*) Crystals, Urine LT CALCIUM OXALATE Bacteria, Urine Negative Hyaline Casts, Urine 13.6 (*) CULTURE URINE CBC AND DIFFERENTIAL Narrative: The following orders were created for panel order CBC and differential. Procedure Abnormality Status --------- ------ CBC auto differential[[id number]] Abnormal Final result Please view results for these tests on the individual orders. URINALYSIS WITH REFLEX MICROSCOPIC AND CULTURE Narrative: The following orders were created for panel order Urinalysis with reflex microscopic and culture. Procedure Abnormality Status --------- ------ Urinalysis with reflex ...[[id number]] Abnormal Edited Result - FINAL Carlin urine culture tube[[id number]] Final result Please view results for these tests on the individual orders. Abnormal Labs Reviewed COMPREHENSIVE METABOLIC PANEL - Abnormal; Notable for the following components: Result Value Anion Gap 1 (*) Glucose 126 (*) All other components within normal limits CBC WITH AUTO DIFFERENTIAL - Abnormal; Notable for the following components: Immature Granulocytes Absolute 0.04 (*) All other components within normal limits URINALYSIS WITH REFLEX MICROSCOPIC AND CULTURE - Abnormal; Notable for the following components: Leukocytes, Urine Moderate (*) Nitrite, Urine Positive (*) Protein, Urine 300 (*) Bilirubin, Urine Small (*) Blood, Urine Large (*) RBC, Urine 1,724.4 (*) WBC, Urine 48.9 (*) Squamous Epithelial, Urine >100 (*) Hyaline Casts, Urine 13.6 (*) All other components within normal limits CT Abdomen Pelvis wo Contrast Final Result Mild right hydroureteronephrosis. Double-J right nephroureteral stent in satisfactory position. No stones or stone fragments noted along the stent course. Bilateral gynecomastia. Nonspecific dense calcifications within the left scrotal sac. This document has been electronically signed by: Syed Cooley MD on 10/12/2024 06:38:48 I have discussed the incidental/abnormal imaging and/or lab abnormalities with the patient and haveinstructed them the need for further evaluation and workup with their primary care doctor. I have provided the patient with a paper copy of the abnormality. The laboratory results, imaging results and other diagnostic exam results were reviewed in the EMR. EKG Interpretation Critical Care Time None Medical Decision Making DDX: 59-year-old male postprocedure day 11 status post lithotripsy, stent placement for kidney stones [facility] as noted in greater detail above. Continued pain, evidence of UTI on urinalysis despite active antibiotic use. Will initiate on gentamicin given his anaphylactic penicillin allergy. Toradol for pain as well as 1 L of IVF. Patient will go for CT to evaluate for retained stone or additional infection. Anticipate patient may require admission for failed outpatient antibiotic treatment, may require transfer to [place] given recent postoperative status. Medications gentamicin (GARAMYCIN) 420 mg in sodium chloride 0.9 % 100 mL IVPB (420 mg intravenous New Bag 10/12/24 7896) ketorolac (TORADOL) injection 15 mg (15 mg intravenous Given 10/12/24 1520) sodium chloride 0.9 % bolus 1,000 mL (1,000 mL intravenous New Bag 10/12/24 0548) Clinical Impressions as of 10/12/24 0745 Kidney stone Acute urinary tract infection Procedures Procedures Diagnosis No diagnosis found. Disposition Data Unavailable ED Prescriptions None Physician Attestation RUTH ANN Rubi 10/12/24 0731 RUTH ANN Rubi 10/12/24 0745 RUTH ANN Rubi 10/12/24 0748 Cosigned by Ayleen Ball MD at 10/13/2024 7:36 AM EST documented in this encounter Plan of Treatment Upcoming Encounters Date Type Department Care Team (Late st Contact Info) Description 11/06/2024 10:45 AM EDT Consult Orthopedic Surgery - [place] [address] [address] Raheel Slater, DPM [address] [address] documented as of this encounter Procedures Procedure Name Priority Date/Time Associated Diagnosis Comments CT ABDOMEN PELVIS WO CONTRAST STAT 10/12/2024 6:19 AM EST CBC WITH AUTO DIFFERENTIAL STAT 10/11/2024 11:18 PM EST CBC AND DIFFERENTIAL STAT 10/11/2024 11:18 PM EST COMPREHENSIVE METABOLIC PANEL STAT 10/11/2024 11:18 PM EST URINALYSIS WITH REFLEX MICROSCOPIC AND CULTURE STAT 10/11/2024 10:34 PM EST CARLIN URINE CULTURE TUBE STAT 10/11/2024 10:34 PM EST URINALYSIS WITH REFLEX MICROSCOPIC AND CULTURE STAT 10/11/2024 10:34 PM EST CULTURE URINE STAT 10/11/2024 10:34 PM EST documented in this encounter Results * CT Abdomen Pelvis wo Contrast [...] by: Syed Cooley MD on 10/12/2024 06:38:48 Narrative 10/12/2024 [...] Cooley MD on 10/12/2024 06:38:[address] PROCEDURES Final Result * (ABNORMAL) CBC auto differential (10/11/2024 11:18 PM EST) WBC 7.7 4.8 - 10.8 K/mcL LAB HEMETOLOGY METHOD 10/12/2024 12:01 AM [facility] RBC 4.60 4.50 - 5.50 M/mcL LAB HEMETOLOGY METHOD 10/12/2024 12:01 AM [facility] Hemoglobin 14.1 13.5 - 17.5 g/dL LAB HEMETOLOGY METHOD 10/12/2024 12:01 AM [facility] Hematocrit 42.7 42.0 - 54.0 % LAB HEMETOLOGY METHOD 10/12/2024 12:01 AM [facility] MCV 92.2 79.0 - 98.0 FL LAB HEMETOLOGY METHOD 10/12/2024 12:01 AM [facility] MCH 30.5 27.0 - 32.0 pcg LAB HEMETOLOGY METHOD 10/12/2024 12:01 AM [facility] MCHC 33.0 32.0 - 37.0 g/dL LAB HEMETOLOGY METHOD 10/12/2024 12:01 AM [facility] RDW 12.8 11.0 - 15.0 % LAB HEMETOLOGY METHOD 10/12/2024 12:01 AM [facility] Platelets 327 130 - 400 K/mcL LAB HEMETOLOGY METHOD 10/12/2024 12:01 AM [facility] MPV 10.4 7.0 - 11.0 FL LAB HEMETOLOGY METHOD 10/12/2024 12:01 AM [facility] NRBC 0.0 <1.0 % LAB HEMETOLOGY METHOD 10/12/2024 12:01 AM [facility] NRBC Absolute 0.00 <0.10 K/mcL LAB HEMETOLOGY METHOD 10/12/2024 12:01 AM [facility] Neutrophils Relative 66.8 % LAB HEMETOLOGY METHOD 10/12/2024 12:01 AM [facility] Lymphocytes Relative 21.5 % LAB HEMETOLOGY METHOD 10/12/2024 12:01 AM [facility] Monocytes Relative 9.6 % LAB HEMETOLOGY METHOD 10/12/2024 12:01 AM [facility] Eosinophils Relative 1.2 % LAB HEMETOLOGY METHOD 10/12/2024 12:01 AM [facility] Basophils Relative 0.4 % LAB HEMETOLOGY METHOD 10/12/2024 12:01 AM [facility] Immature Granulocytes Relative 0.5 % LAB HEMETOLOGY METHOD 10/12/2024 12:01 AM [facility] Neutrophils Absolute 5.12 1.50 - 7.00 K/mcL LAB HEMETOLOGY METHOD 10/12/2024 12:01 AM [facility] Lymphocytes Absolute 1.65 1.00 - 5.00 K/mcL LAB HEMETOLOGY METHOD 10/12/2024 12:01 AM [facility] Monocytes Absolute 0.74 0.20 - 1.00 K/mcL LAB HEMETOLOGY METHOD 10/12/2024 12:01 AM [facility] Eosinophils Absolute 0.09 0.00 - 0.50 K/mcL LAB HEMETOLOGY METHOD 10/12/2024 12:01 AM [facility] Basophils Absolute 0.03 0.00 - 0.20 K/mcL LAB HEMETOLOGY METHOD 10/12/2024 12:01 AM [facility] Immature Granulocytes Absolute 0.04(H) 0.00 - 0.03 K/mcL LAB HEMETOLOGY METHOD 10/12/2024 12:01 AM [facility] Blood Venous blood specimen / Unknown Venipuncture / Unknown 10/11/2024 11:18 PM EST 10/11/2024 11:44 PM EST us Smith Quan MD LAB BLOOD ORDERABLES Final Result [facility] [address] [place] [address], * (ABNORMAL) Comprehensive metabolic panel (10/11/2024 11:18 PM EST) Sodium 138 133 - 145 mmol/L LAB CHEMISTRY METHOD 10/12/2024 12:38 AM [facility] Potassium 4.3 3.5 - 5.5 mmol/L LAB CHEMISTRY METHOD 10/12/2024 12:38 AM [facility] Chloride 107 96 - 110 mmol/L LAB CHEMISTRY METHOD 10/12/2024 12:38 AM [facility] CO2 30 21 - 32 mmol/L LAB CHEMISTRY METHOD 10/12/2024 12:38 AM [facility] Anion Gap 1(L) 3 - 11 LAB CHEMISTRY METHOD 10/12/2024 12:38 AM [facility] Glucose 126(H) 70 - 100 mg/dL LAB CHEMISTRY METHOD 10/12/2024 12:38 AM [facility] BUN 15 5 - 25 mg/dL LAB CHEMISTRY METHOD 10/12/2024 12:38 AM [facility] Creatinine 1.15 0.70 - 1.30 mg/dL LAB CHEMISTRY METHOD 10/12/2024 12:38 AM [facility] eGFR 73 >=60 mL/min/1. 73m2 LAB CHEMISTRY METHOD 10/12/2024 12:38 AM [facility] Comment:Calculation based on the??Chronic Kidney Disease Epidemiology Collaboration (CKD-EPI) equation refit??without adjustment for race. BUN/Creatinine Ratio 13.0 LAB CHEMISTRY METHOD 10/12/2024 12:38 AM [facility] Calcium 9.8 8.5 - 10.5 mg/dL LAB CHEMISTRY METHOD 10/12/2024 12:38 AM [facility] AST (SGOT) 24 10 - 42 unit/L LAB CHEMISTRY METHOD 10/12/2024 12:38 AM [facility] ALT (SGPT) 22 10 - 60 unit/L LAB CHEMISTRY METHOD 10/12/2024 12:38 AM [facility] Alkaline Phosphatase 100 42 - 121 unit/L LAB CHEMISTRY METHOD 10/12/2024 12:38 AM [facility] Total Protein 6.9 6.0 - 8.0 g/dL LAB CHEMISTRY METHOD 10/12/2024 12:38 AM [facility] Albumin 3.9 3.2 - 5.0 g/dL LAB CHEMISTRY METHOD 10/12/2024 12:38 AM [facility] Total Bilirubin 0.6 0.0 - 1.4 mg/dL LAB CHEMISTRY METHOD 10/12/2024 12:38 AM [facility] Blood Venous blood specimen / Unknown Venipuncture / Unknown 10/11/2024 11:18 PM EST 10/11/2024 11:44 PM EST us Smith Quan MD LAB BLOOD ORDERABLES Final Result Performing Organization Address [facility] [address]/[facility] Co de Phone Number [facility] [address] [place] [address], [place] [phone] * Culture urine (10/11/2024 10:34 PM EST) Culture, Urine No growth 10/13/2024 10:54 AM EST [facility] Urine Urine specimen obtained by clean catch procedure / Unknown Non-blood Collection / Unknown 10/11/2024 10:34 PM EST 10/11/2024 11:52 PM EST Smith Quan MD LAB MICROBIOLOGY - GENERAL ORDERABLES Final Result Performing Organization Address [facility] Co de Phone Number [facility] [address] [place] [address], * Carlin urine culture tube (10/11/2024 10:34 PM EST) Pathologist [facility] Extra Tube Hold for add-ons. 10/12/2024 1:11 AM EST [facility] Comment:Auto resulted. Urine Urine specimen obtained by clean catch procedure / Unknown Non-blood Collection / Unknown 10/11/2024 10:34 PM EST 10/11/2024 11:07 PM EST Smith Quan MD LAB URINE ORDERABLES Final Result Performing Organization Address [facility] [address]/[facility] Co de Phone Number [facility] [address] [place] [address], [place] [phone] * (ABNORMAL) Urinalysis with reflex microscopic and culture (10/11/2024 10:34 PM EST) [facility] Specific [place] Urine 1.014 1.003 - 1.030 LAB URINALYSIS - AUTOMATED METHOD 10/12/2024 6:50 AM EST [facility] pH, Urine 5.5 5.0 - 8.0 pH LAB URINALYSIS - AUTOMATED METHOD 10/12/2024 6:50 AM [facility] Leukocytes, Urine Moderate(A) Negative LAB URINALYSIS - AUTOMATED METHOD 10/12/2024 6:50 AM [facility] Nitrite, Urine Positive(A) Negative LAB URINALYSIS - AUTOMATED METHOD 10/12/2024 6:50 AM [facility] Protein, Urine 300(A) <=Trace mg/dL LAB URINALYSIS - AUTOMATED METHOD 10/12/2024 6:50 AM [facility] Glucose, Urine Negative Negative mg/dL LAB URINALYSIS - AUTOMATED METHOD 10/12/2024 6:50 AM [facility] Ketones, Urine Negative Negative mg/dL LAB URINALYSIS - AUTOMATED METHOD 10/12/2024 6:50 AM [facility] Urobilinogen, Urine 1.0 0.2 - 1.0 mg/dL LAB URINALYSIS - AUTOMATED METHOD 10/12/2024 6:50 AM [facility] Bilirubin, Urine Small(A) Negative LAB URINALYSIS - AUTOMATED METHOD 10/12/2024 6:50 AM [facility] Blood, Urine Large(A) Negative LAB URINALYSIS - AUTOMATED METHOD 10/12/2024 6:50 AM [facility] RBC, Urine 1,724.4(H) 0 - 4 /HPF LAB URINALYSIS - AUTOMATED METHOD 10/12/2024 6:50 AM [facility] Comment:This is an appended report. These results have been appended to a previously preliminary verified report. WBC, Urine 48.9(H) 0 - 4 /HPF LAB URINALYSIS - AUTOMATED METHOD 10/12/2024 6:50 AM [facility] Comment:This is an appended report. These results have been appended to a previously preliminary verified report. Squamous Epithelial, Urine >100(H) 0 - 60 /LPF LAB URINALYSIS - AUTOMATED METHOD 10/12/2024 6:50 AM EST [facility] Comment:This is an appended report. These results have been appended to a previously preliminary verified report. Crystals, Urine LT CALCIUM OXALATE /LPF LAB URINALYSIS - AUTOMATED METHOD 10/12/2024 6:50 AM EST [facility] Comment:Corrected result: Pr eviously reported on 10/11/2024 at 2351 EST. Bacteria, Urine Negative Negative /HPF LAB URINALYSIS - AUTOMATED METHOD 10/12/2024 6:50 AM EST [facility] Comment: Edited result: Previously reported as Negative /HPF on 10/11/2024 at 2351 EST. This is an appended report. ??These results have been appended to a previously final verified report. Hyaline Casts, Urine 13.6(H) 0 - 3 /LPF LAB URINALYSIS - AUTOMATED METHOD 10/12/2024 6:50 AM EST [facility] Comment:This is an appended report. These results have been appended to a previously preliminary verified report. Urine Urine specimen obtained by clean catch procedure / Unknown Non-blood Collection / Unknown 10/11/2024 10:34 PM EST 10/11/2024 11:07 PM EST us Smith Quan MD LAB URINE ORDERABLES Edited Result - Final [facility] [address] [place] [address], documented in this encounter Visit Diagnoses Diagnosis Urinary tract infection with hematuria, site unspecified- Primary Kidney stone Calculus of kidney Acute urinary tract infection Urinary tract infection, site not specified documented in this encounter Administered Medications Inactive Administered Medications - up to 3 most recent administrations Medication Order MAR Action Action Date Dose Rate Site gentamicin (GARAMYCIN) 420 mg in sodium chloride 0.9 % 100 mL IVPB 420 mg (rounded from 406 mg = 5 mg/kg ? 81.2 kg), intravenous, at 100 mL/hr, Administer over 60 Minutes, Once, On 10/12/24 at 0600, For 1 dose, Indication: Urinary Tract/Genitourinary New Bag 10/12/2024 5:55 AM EST 420 mg 100 mL/hr ketorolac (TORADOL) injection 15 mg 15 mg, intravenous, Once, On 10/12/24 at 0543, For 1 dose Given 10/12/2024 5:54 AM EST 15 mg sodium chloride 0.9 % bolus 1,000 mL 1,000 mL, intravenous, at 2,000 mL/hr, Administer over 30 Minutes, Once, On 10/12/24 at 0543, For 1 dose New Bag 10/12/2024 5:48 AM EST 1,000 mL 2000 mL/hr documented in this encounter Active and Recently Administered Medications Times are shown in EST. Scheduled Medication Order 10/10/2024 10/11/2024 10/12/2024 gentamicin (GARAMYCIN) 420 mg in sodium chloride 0.9 % 100 mL IVPB (COMPLETED) 420 mg (rounded from 406 mg = 5 mg/kg ? 81.2 kg), intravenous, at 100 mL/hr, Administer over 60 Minutes, Once, On 10/12/24 at 0600, For 1 dose, Indication: Urinary Tract/Genitourinary 0555 (New Bag - Prov ider: Maame Davis RN)0813 (Stopped - Provider: Rachel Bass, RN) ketorolac (TORADOL) injection 15 mg (COMPLETED) 15 mg, intravenous, Once, On 10/12/24 at 0543, For 1 dose 0554 (Given - Provid er: Maame Davis RN) sodium chloride 0.9 % bolus 1,000 mL (COMPLETED) 1,000 mL, intravenous, at 2,000 mL/hr, Administer over 30 Minutes, Once, On 10/12/24 at 0543, For 1 dose 0548 (New Bag - Prov ider: Maame Davis RN)0813 (Stopped - Provider: Rachel Bass, RN) documented in this encounter Care Teams [employer] Relationship Specialty Start Date End Date Ashley Frankel MD [address] [place] [phone] PCP - General Family Medicine 08/09/24 documented as of this encounter
--- OUTSIDE RECORDS SUMMARY | 2024-10-24 10:14 | XMS_ITS | Encounter Summary ---
Author Organization [employer] Address [address] [facility] [address] [place] [address] Care Team Providers Care Pasting Inspector Name Role Phone Ashley Frankel MD Primary Care Provider [phone] Hoang, November Unavailable Kishore Dorsey MD Unavailable [phone] Raheel Gee Unavailable [phone] Riya Fulton Unavailable Sergio Hackett Unavailable Unavailable Dominga Silva PharmD Unavailable Encounter Details Date Type Department Care Team (Late st Contact Info) Description 09/09/2024 Orders Only [facility] External Provider, [facility] Renal calculi (Primary Dx) Social History Tobacco Use Types Packs/Day Years [...] as of this encounter Miscellaneous Notes * Result Encounter Note - Malika Mac MD - 09/09/2024 11:07 AM EST Renal US reviewed by PCP documented in this encounter Plan of Treatment Upcoming Encounters Date Type Department Care Team (Late st Contact Info) Description 12/09/2024 8:00 AM EDT Office Visit [facility] [address] [place] [address] Jackie Peacock documented as of this encounter Procedures Procedure Name Priority Date/Time Associated Diagnosis Comments US RETROPERITONEAL COMPLETE Routine 09/30/2024 1:13 PM EST HIGH SENSITIVITY TROPONIN I Routine 09/09/2024 2:44 PM EST CBC WITH AUTO DIFFERENTIAL Routine 09/09/2024 11:02 AM EST MAGNESIUM Routine 09/09/2024 11:02 AM EST LIPASE Routine 09/09/2024 11:02 AM EST HEPATIC FUNCTION PANEL Routine 11:02 AM EST BASIC METABOLIC PANEL Routine 09/09/2024 11:02 AM EST HIGH SENSITIVITY TROPONIN I Routine 09/09/2024 11:01 AM EST SARS COV2/INFLUENZA A/B AND RSV RNA QL NAAT Routine 09/09/2024 11:01 AM EST XR CHEST 2 VIEWS Routine 09/09/2024 10:3 4 AM EST documented in this encounter Results * US Retroperitoneal Complete (09/30/2024 1:13 PM EST) Anatomical Region Laterality Modality Ultrasound 09/30/2024 1:13 PM EST Narrative 09/30/2024 1:13 PM EST ? [facility] ?[address] ?[place] [address] ? Ultrasound Report ? Signed ? Patient: Krista,Bobby ?MR#: [id number] ? : 1965 ?Acct:[id number] ? Age/Sex: 59 / M ?ADM Date: 09/30/24 ? Loc: HO.US ? Attending Dr: Malika Mac MD ? Ordering Physician: Malika Mac MD ?? Date of Service: 09/30/24 ?? Procedure(s): US retroperitoneal comp ?? Accession Number(s): [id number] ? cc: Ashley Frankel MD; Malika Mac MD ? CLINICAL HISTORY: MICROSCOPIC HEMATURIA,BILATERAL LOW BACK PAIN ? US Renal ? Comparison: CT/SR - CT ABDOMEN PELVIS W CON - 12/27/21 16:08 EDT ? Findings: ?? Right kidney at 11 cm with moderate to severe hydroureteronephrosis. 4 x 7 ?? x 9 mm stone in the distal ureter. ?? No appreciable intrarenal stones. Changes new from prior. ? Left kidney at 11.5 cm. 14 and 8 mm lower pole cysts. No apparent left ?? nephrolithiasis or hydronephrosis. ? Prevoid bladder volume 100 and 50 mL. Bladder diverticula noted. Enlarged ?? prostate with volume 43 mL. ?? Postvoid bladder volume 8 mL. ? Impression: ?? Moderate to severe right hydronephrosis with 9 mm stone distal right ?? ureter. ?? No additional stones evident on either side. ? Bladder volumes as above. Bladder diverticula noted. ?? Enlarged prostate. ? This document has been electronically signed by: Jong Almendarez MD on ?? 09/30/2024 13:13:14 ? Dictated By: ?Jong Almendarez MD ? Signed By: ?<Electronically signed by Jong Almendarez MD in OV> ? 09/30/241312 ? DD/ 12 ? TD/TT: 09/30/24 1313 ? Material Control Clerk: ? Procedure Note Donshobha, Image - 09/30/[address] [address] Ultrasound Report Signed Patient: Pierce Velasco#: [id number] : 1965Acct:[id number] Age/Sex: 59 / MADM Date: 09/30/24 Loc: HO.US Attending Dr: Malika Mac MD Ordering Physician: Malika Mac MD Date of Service: 09/30/24 Procedure(s): US retroperitoneal comp Accession Number(s): [id number] cc: Ashley Frankel MD; Malika Mac MD CLINICAL HISTORY: MICROSCOPIC HEMATURIA,BILATERAL LOW BACK PAIN US Renal Comparison: CT/SR - CT ABDOMEN PELVIS W CON - 12/27/21 16:08 EDT Findings: Right kidney at 11 cm with moderate to severe hydroureteronephrosis. 4 x 7 x 9 mm stone in the distal ureter. No appreciable intrarenal stones. Changes new from prior. Left kidney at 11.5 cm. 14 and 8 mm lower pole cysts. No apparent left nephrolithiasis or hydronephrosis. Prevoid bladder volume 100 and 50 mL. Bladder diverticula noted. Enlarged prostate with volume 43 mL. Postvoid bladder volume 8 mL. Impression: Moderate to severe right hydronephrosis with 9 mm stone distal right ureter. No additional stones evident on either side. Bladder volumes as above. Bladder diverticula noted. Enlarged prostate. This document has been electronically signed by: Jong Almendarez MD on 09/30/2024 13:13:14 Dictated By: oJng Almendarez MD Signed By: <Electronically signed by Jong Almendarez MD in OV> 09/30/24 1313 DD/ 1313 TD/TT: 09/30/24 1313 Material Control Clerk: us Malika Mac MD IMG US PROCEDURES Final Result * High Sensitivity Troponin I (09/09/2024 2:44 PM EST) TROPONIN I HIGH SENSITIVITY 5.2 <3.5 - 35.0 ng/L [facility] Comment:The Schmidt high sens itivity Troponin-I results should beused in conjunction with other diagnostic information suchas ECG, clinical observations and information, and patientsymptoms to aid in the diagnosis of PA. 09/09/2024 2:44 PM EST 09/09/2024 2:53 PM EST us Generic External Data Provider LAB BLOOD ORDERAB LES Final Result Performing Organization Address [facility] [address] [place] [phone] * Lipase (09/09/2024 11:02 AM EST) Lipase 28 8 - 78 U/L [facility] 09/09/2024 11:0 2 AM EST 09/09/2024 11:06 AM EST Generic External Data Provider LAB BLOOD ORDERAB LES Final Result Performing Organization Address [facility] Phone Number [facility] [address] [place] [phone] * Magnesium (09/09/2024 11:02 AM EST) Magnesium 2.0 1.6 - 2.6 mg/dL [facility] 09/09/2024 11:0 2 AM EST 09/09/2024 11:06 AM EST Generic External Data Provider LAB BLOOD ORDERAB LES Final Result Performing Organization Address [facility] Co de Phone Number [facility] [address] [place] [phone] * (ABNORMAL) Basic Metabolic Panel (09/09/2024 11:02 AM EST) Pathologist [facility] Sodium 142 135 - 145 mmol/L [facility] Potassium 3.7 3.3 - 5.1 mmol/L [facility] Chloride 108 96 - 108 mmol/L [facility] Carbon Dioxide 29 22 - 29 mmol/L [facility] Anion Gap 9(L) 12 - 20 [facility] Urea Nitrogen (BUN) 13 9 - 16 mg/dL [facility] Creatinine, Serum 1.00 0.5 - 1.4 mg/dL [facility] Creatinine Clr Calc Pharmacy 81.3 [facility] Comment:eGFR (calculated fro m the MDRD study equation) and eCrCl(calculated from the Cockcroft-Gault equation) are based ondifferent parameters and may not yield comparable results.If eCrCl result is absurd, please check patient'sheight/weight. Estimated Glomerular Filt Rate >60 [facility] Comment:Chronic Kidney Disea se: Estimated GFR < 60 mL/min/1.30v4Qyrjcr Kidney Disease: Estimated GFR < 15 mL/min/1.73m2 Glucose 147(H) 60 - 115 mg/dL [facility] Calcium 9.2 8.4 - 10.2 mg/dL [facility] 09/09/2024 11:0 2 AM EST 09/09/2024 11:06 AM EST us Generic External Data Provider LAB BLOOD ORDERAB LES Final Result [facility] [address] [place] [phone] * Hepatic Function Panel (09/09/2024 11:02 AM EST) Pathologist [facility] Bilirubin, Total 0.9 0.0 - 1.0 mg/dL [facility] Bilirubin, Direct 0.3 0.0 - 0.5 mg/dL [facility] Aspartate Amino Transferase 29 5 - 37 U/L [facility] Alanine Aminotransferase 23 0 - 40 U/L [facility] Total Protein 6.9 6.5 - 8.0 g/dL [facility] Albumin Level 4.1 3.5 - 5.0 g/dL [facility] Alkaline Phosphatase 100 39 - 117 U/L [facility] 09/09/2024 11:0 2 AM EST 09/09/2024 11:06 AM EST us Generic External Data Provider LAB BLOOD ORDERAB LES Final Result [facility] [address] [place] [phone] * (ABNORMAL) CBC auto differential (09/09/2024 11:02 AM EST) White Blood Count 3.7(L) 4.8 - 10.8 X10*3/uL [facility] Red Blood Count 4.60 4.60 - 5.80 X10*6/uL [facility] Hemoglobin 13.8(L) 14.0 - 18.0 g/dl [facility] Hematocrit 41.4(L) 42.0 - 52.0 % [facility] Mean Corpuscular Volume 90.0 80.0 - 98.0 fL [facility] Mean Corpuscular Hemoglobin 30.0 27.0 - 33.0 pg [facility] Mean Corpuscular HGB Conc 33.3 31.0 - 36.0 g/dl [facility] Red Cell Distribution Width 13.2 11.0 - 16.0 % [facility] Platelet Count 208 160 - 400 X10*3/uL [facility] Mean Platelet Volume 10.4 9.4 - 12.4 fL [facility] Neutrophils Percent Auto 53.8 45 - 73 % [facility] Imm Gran Pct Auto 0.3 0.0 - 0.4 % [facility] Lymphocytes Percent Auto 32.4 20 - 40 % [facility] Monocytes Percent Auto 10.3 2 - 11 % [facility] Eosinophils Percent Auto 2.4 0 - 4 % [facility] Basophils Percent Auto 0.8 0 - 2 % [facility] NRBC Pct Auto 0.0 0.0 - 0.2 /100WBC [facility] Neutrophils Absolute Auto 2.0 2.0 - 8.3 x10*3/uL [facility] Imm Gran Abs Auto 0.01 0.00 - 0.03 X10*3/uL [facility] Lymphocytes Absolute Auto 1.2 1.2 - 4.9 X10*3/uL [facility] Monocytes Absolute Auto 0.4 0.1 - 1.2 X10*3/uL [facility] Eosinophils Absolute Auto 0.1 0.0 - 0.4 X10*3/uL [facility] Basophils Absolute Auto 0.0 0.0 - 0.2 X10*3/uL [facility] NRBC Abs Auto 0.000 0.0 - 0.012 X10*3/uL [facility] 09/09/2024 11:0 2 AM EST 09/09/2024 11:06 AM EST us Generic External Data Provider LAB BLOOD ORDERAB LES Final Result [facility] [address] [place] [phone] * SARS-CoV-2 RNA, Influenza A/B, and RSV RNA, Ql NAAT (09/09/2024 11:01 AM EST) Influenza A PCR NEGATIVE Negative [facility] Influenza B PCR NEGATIVE Negative [facility] Resp Syncy Virus RNA Qual PCR NEGATIVE Negative [facility] SARS COV2 PCR NEGATIVE Negative [facility] Comment:All test results mus t [...] use by authorized laboratories.Testing performed on the [employer] GeneXpert utilizingreal-time RT-PCR.All SARS CoV2 and positive influenza A/B results arereported to [facility]. 09/09/2024 11:0 1 AM EST 09/09/2024 11:06 AM EST Generic External Data Provider LAB MICROBIOLOGY - GENERAL ORDERABLES Final Result Performing Organization Address [facility] de Phone Number [facility] [address] [place] [phone] * High Sensitivity Troponin I (09/09/2024 11:01 AM EST) Pathologist [facility] TROPONIN I HIGH SENSITIVITY 3.2 <3.5 - 35.0 ng/L [facility] Comment:The Schmidt high sens itivity Troponin-I results should beused in conjunction with other diagnostic information suchas ECG, clinical observations and information, and patientsymptoms to aid in the diagnosis of PA. 09/09/2024 11:0 1 AM EST 09/09/2024 11:06 AM EST Generic External Data Provider LAB BLOOD ORDERAB LES Final Result Performing Organization Address [facility] de Phone Number [facility] [address] [place] [phone] * XR Chest 2 Views (09/09/2024 10:34 AM EST) Anatomical Region Laterality Modality Chest Radiographic Hannah ging 09/09/2024 10:3 4 AM EST Narrative 09/09/2024 11:06 AM EST ? [facility] ?[address] ?[place] [address] ?XRay Report ? Signed ? Patient: Krista,Bobby ?MR#: [id number] ? : 1965 ?Acct:[id number] ? Age/Sex: 59 / M ?ADM Date: 09/09/24 ? Loc: HO.ED ? Attending Dr: ? Ordering Physician: Deandra Reynolds DO ?? Date of Service: 09/09/24 ?? Procedure(s): XR chest 2V ?? Accession Number(s): [id number] ? cc: Ashley Frankel MD; Deandra Reynolds [...] DD/ 1034 ? TD/TT: 09/09/24 1045 ? Material Control Clerk: ? Procedure Note Reshma, Image - 09/09/2024 [place] [address] XRay Report Signed Patient: Pierce Velasco#: [id number] : 1965Acct:[id number] Age/Sex: 59 / MADM Date: 09/09/24 Loc: HO.ED Attending Dr: Ordering Physician: Deandra Reynolds DO Date of Service: 09/09/24 Procedure(s): XR chest 2V Accession Number(s): [id number] cc: Ashley Frankel MD; Deandra Reynolds DO [...] 09/09/24 1103 DD/ 1034 TD/TT: 09/09/24 1045 Material Control Clerk: [employer] External Provider IMG XR PROCEDURES Edited Result - Final documented in this encounter Visit Diagnoses Diagnosis Renal calculi- Primary Calculus of kidney documented in this encounter Additional Health Concerns Assessment Noted Time PHQ-9 Depression Total Score: 0 07/17/20 10:33 AM EST documented as of this encounter Care Teams Pasting Inspector Relationship Specialty Start Date End Date Ashley Frankel MD [address] [place] [phone] PCP - General Family Medicine 08/28/18November [address] [address] Gastroenterology 07/17/24 Kishore Dorsey MD [address] [facility] [address] [place] [address] Urology 07/17/24 Raheel Gee [address] [place], [place] [address] Pulmonary Disease 07/17/24 Riya Fulton [address] [facility] [address] [place] [address] Cardiology 07/17/24 Sergio Hackett [address] [place] [address] Orthopaedic Surgery 07/17/24 Dominga Silva, PharmD [address] [place] [address] Pharmacist Internal Medicine 07/22/24 documented as of this encounter
--- OUTSIDE RECORDS SUMMARY | 2024-10-24 10:14 | XMS_ITS | Data Portability ---
Author Organization [facility], [facility] Address [address] [place] [address] Assessment No assessment recorded. Plan of Treatment Reminders Order Date Submit Date Provider Last Modified By Organization Details Last Modified Time Details Appointments None recorded. Lab hla-B27, blood - Ankylosis Spondylit is Labs 2023 024 [email or web address] [facility] (Centralized Electronic Ordering - All Locations), Patient Can Go To The Location Of Their Choice, [address] 21:34:03 hla-B27, blood - Ankylosis Spondylit is Labs 2023 024 [email or web address] [facility] (Centralized Electronic Ordering - All Locations), Patient Can Go To The Location Of Their Choice, [address] 13:00:12 Referral physical therapist referral - Evaluate & RxCervica l Stabiliza tion Program, DISH with significa ntly decreased ROM and neck/shou lder pain 2023 [facility], [address], [place], [address], 07:26:05 pain managemen t referral - neck pain, cervical DISH, MRI completed 2023 024 [email or web address] [facility], [address] [place] [address], [address], 14:04:48 physical therapist referral - Evaluate & RxCervica l Stabiliza tion Program. Please include thoracic stabiliza tion program as well 2023 024 BROOKLYNN Not available 09:53:28 Procedures None recorded. Surgeries None recorded. Imaging MRI, cervical spine, w/o contrast - neck pain with DISH, arm pain 2023 024 [email or web address] [facility] ([facility]), [address], [place], [address], 4 07:42:04 XR, cervical spine, 4 or 5 view - 325 new pt c-spine series, please include t-spine 2v 2023 024 [email or web address] [facility], [address], [address], [place], [address], 4 13:00:12 XR, thoracic spine, 2 view - 325 new pt c-spine series, please include t-spine 2v 2023 024 [email or web address] [facility], [address], [address], [place], [address], 4 13:00:12 Medication Orders meloxicam 15 mg tablet [id number], [address] [place], [address], 4 16:06:47 Patient TargetsNo targets recorded. Patient InstructionsNo instructions recorded. 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 neck pain, cervical DISH, MRI completed Referring Physician: Alessandra Lopez, Orthopedic Surgery, [id number] Encounter Date: 03/29/2024 Physical Therapist Referral for Neck pain Evaluate & RxCervical Stabilization Program, DISH with significantly decreased ROM and neck/shoulder pain Referring Physician: Alessandra Lopez, Orthopedic Surgery, [id number] Encounter Date: 03/29/2024 Results Created Date Observation Date Name Description Value Unit Range Abnormal Flag Note LastModifiedBy Organization Detail LastModifiedTime 03/15/20 24 03/22/2024 HLA B 27 DISEA SE ASSOC IATIO N hla-B27 Negati ve HLA-B *27 Negat ton B27 allel e inter preta tion for all loci based on IMGT/ HLA datab ase versi on . 0 This test was devel oped and its perfo rmanc e hermilo cteri stics deter mined by [facility]. It has not been clear ed or appro adam by the Food and Drug Admin istra tion. HLA Lab CLIA ID Silvina grier [id number] This test was perfo rmed using Polym erase Chain React ion (PCR) and Seque nce Speci fic Oligo nucle otide Probe s (SSOP ) techn ique. Seque nce Based Typin g (SBT) may be used as a suppl ement al metho d when neces libia. If you have quest ions, pleas e call HLA custo amos servi ce at [phone] or email at [facility] [email or web address] om. Not Available [facility] ([facility]) [address] [facility], [place], [address], 03/22/2024 21:34:03 03/18/20 24 03/15/2024 MRI, cervi deisy spine , w/o contr ast [facility] Access ion Number : [id number] Name: Bobby Velasco Record Number : [id number] Date of : 1964 Date of Exam: 2023 Referr ing Physic raul: Rebecca avendaño, Alessandra [facility] [address] [facility], [place] [address] Exam: MR Cervic al Spine (C-) CPT 16628 Room Descri ption: [facility]ion 3T MRI of the cervic al spine withou t contra st. HISTOR Y: Neck pain. Bilate ral arm pain and parest hesia. Limite d range of motion of the neck. DISH COMPAR KORY: None. FINDIN GS: The cervic al cord appear s normal in calibe r and signal intens ities. The alignm ent is normal . No verteb ral body fractu re is seen. The bone marrow signal s are within normal limits . Promin ent ankylo sing osteop hytes are seen throug hout the cervic al spine. The interv ertebr al disc spaces are preser adam. The parasp inal muscle s are within normal limits . C2-C3 level has a mild disc bulge. No stenos is or neural forame n narrow ing. C3-C4 level has a mild disc bulge. There is a left uncove rtebra l joint osteop hyte causin g mild left Mild neural forame n narrow ing. C4-C5 level has a mild disc bulge withou t disc hernia tion or stenos is. No neurof oramen narrow ing. C5-C6 level has a mild disc bulge. No stenos is or neurof oramin al narrow ing. Bilate ral facet joints are mildly degene rative . C6-C7 level has a tiny centra l disc protru jos. The ventra l subara chnoid space is efface d. No cord compre ssion. No neural forame n narrow ing. C7-T1 level has no disc hernia tion, stenos is or neural forami nal narrow ing. The major vascul ar flow voids are intact . The prever tebral and parave rtebra l soft tissue s are within normal limits . IMPRES JOS: The cervic al cord is normal . Promin ent ankylo sing osteop hytes of cervic al spine. Mild spondy losis withou t stenos is or neural forame n narrow ing. Electr onical ly Signed By: Nicanor Tatum MD [address] [facility] ([facility]) [address], [place], [address], 03/18/2024 08:45:12 Result Notes None recorded. Problems Name Problem SNOMED Code Status Onset Date Resolution Date Notes Provider Name and Address Organization Details Recorded Time Diffuse idiopathic skeletal hyperostosi s of cervicothor acic spine 0231350498698 00 Active 2023 Sergio Hackett MD [address] [address], [place], [address] [place] [facility] 4 10:48:45 Ankylosis of spine 26705309 Active 2023 Sergio Hackett MD [address], [place], [address] , [facility] 4 10:48:46 Problem Notes None recorded. Procedures Surgical History None recorded. Imaging Results Imaging Date Name Status LastModified by Organiz ation Details LastModified Time 03/15/2024 MRI, cervical spine, w/o contrast completed [address] [facility]) [address], [place], [address], 03/18/2024 08:45:12 Procedure Notes None recorded. Medical Equipment None Reported. Allergies Allergen ID Allergen Name Allergen Category Reaction Reaction Severity Criticality Documentation Date Start Date Code Code System Note Provider Name and Address Organization Details Recorded Time 839570 clindamyc in Not available Not available Not available Not available 12/19/2023 2582 RxNorm SANDEEP GUERRERO [facility] 4 13:54:21 028598 doxycycli ne Not available Not available Not available Not available 12/19/2023 3640 RxNorm SANDEEP GUERRERO [facility] 4 13:54:26 749851 Product containin g penicilli n (product) medicatio n Not available Not available Not available 12/19/2023 46150 8001 SNOMED SADNEEP GUERRERO [facility] 4 13:54:31 Medications Name Sig Start Date Stop Date Status Note LastModified by Organization Details LastModified Time terazosin 5 mg capsule TAKE 1 CAPSULE BY MOUTH EVERY DAY AT BEDTIME FOR 90 DAYS active Not Available Not Available No t Available atorvastatin 40 mg tablet TAKE 1 TABLET BY MOUTH EVERY DAY IN THE MORNING active Not Available Not Available No t Available trazodone 50 mg tablet TAKE 1 TABLET BY MOUTH EVERY DAY AT BEDTIME NEEDED FOR SLEEP active Not Available Not Available No t Available cetirizine 10 mg tablet TAKE 1 TABLET BY MOUTH EVERY DAY NEEDED active Not Available Not Available No t Available azithromycin 250 mg tablet TAKE 2 TABLETS BY MOUTH TODAY, THEN TAKE 1 TABLET DAILY FOR 4 DAYS DIRECTED active Not Available Not Available No t Available ibuprofen 800 mg tablet TAKE 1 TABLET BY MOUTH 3 TIMES DAILY. active Not Available Not Available No t Available meloxicam 15 mg tablet TAKE 1 TABLET BY MOUTH ONCE DAILY NEEDED FOR PAIN. TAKE WITH FOOD, DO NOT TAKE ADDITIONAL NSAIDS active Not Available Not Available No t Available famotidine 40 mg tablet TAKE 1 TABLET BY MOUTH DAILY NEEDED FOR HEARTBURN active Not Available Not Available No t Available prednisone 20 mg tablet TAKE 2 TABS DAILY X 5 DAYS, THEN 1 TABLET DAILY X 5 DAYS FOR TOTAL OF 10 DAYS active Not Available Not Available No t Available prednisone 5 mg tablet TAKE 2 TABLETS BY MOUTH EVERY DAY X 5 DAYS, THEN TAKE 1 TABLET EVERY DAY FOR 5 DAYS active Not Available Not Available N ot Available sumatriptan 50 mg tablet TAKE 1 TAB AT ONSET OF HEADACHE IF NO RELIEF MAY REPEAT 1 TAB AT LEAST 2 HR AFTER. MAX 4 TABS/24 HR active Not Available Not Available No t Available Accu-Chek Softclix Lancets USE DIRECTED TO TEST BLOOD SUGAR TWICE DAILY active Not Available Not Available No t Available ciprofloxaci n 500 mg tablet TAKE 1 TABLET (500 MG) BY MOUTH 2 TIMES DAILY FOR 28 DAYS active Not Available Not Available Not Available sulfamethoxa zole 800 mg-trimethop rim 160 mg tablet TAKE 1 TABLET BY MOUTH EVERY 12 HOURS FOR 10 DAYS active Not Available Not Available Not Available methocarbamo l 750 mg tablet TAKE 1 TABLET (750 MG) BY MOUTH 2 TIMES DAILY FOR 10 DAYS. active Not Available Not Available No t Available amlodipine 10 mg tablet TAKE 1 TABLET BY MOUTH DAILY active Not Available Not Available Not Available ibuprofen 400 mg tablet TAKE 1 TABLET BY MOUTH THREE TIMES A DAY NEEDED FOR FEVER OR PAIN active Not Available Not Available No t Available sertraline 25 mg tablet TAKE 1 TABLET BY MOUTH ONCE A DAY FOR ANXIETY active Not Available Not Available No t Available montelukast 10 mg tablet TAKE 1 TABLET BY MOUTH AT BEDTIME active Not Available Not Available No t Available hydroxyzine HCl 25 mg tablet TAKE 1-2 TABLETS BY MOUTH TWICE A DAY NEEDED FOR ANXIETY DURING THE DAY OR NIGHT FOR SLEEP active Not Available Not Available No t Available morphine ER 15 mg tablet,exten ded release TAKE 1 TABLET BY MOUTH EVERY 6 HOURS NEEDED FOR PAIN active Not Available Not Available No t Available lisinopril 40 mg tablet TAKE 1 TABLET BY MOUTH DAILY active Not Available Not Available Not Available fluticasone propionate 50 mcg/actuatio n nasal spray,suspen jos 2 SPRAY INTRANASALL Y DAILY FOR 30 DAYS active Not Available Not Available No t Available sertraline 50 mg tablet active Not Available Not Available Not Available naproxen 500 mg tablet TAKE 1 TABLET BY MOUTH TWICE A DAY NEEDED PAIN active Not Available Not Available Not Available Ventolin HFA 90 mcg/actuatio n aerosol inhaler INHALE 2 PUFFS BY MOUTH EVERY 4 HOURS NEEDED FOR SHORTNESS OF BREATH active Not Available Not Available No t Available azithromycin 500 mg tablet TAKE 1 TABLET BY MOUTH DAILY FOR 5 DAYS active Not Available Not Available N ot Available cyclobenzapr ine 5 mg tablet TAKE 1 TABLET BY MOUTH 3 TIMES A DAY NEEDED FOR MUSCLE SPASM active Not Available Not Available No t Available tadalafil 10 mg tablet TAKE ONE TABLET BY MOUTH EVERY DAY NEEDED FOR SEXUAL ACTIVITY active Not Available Not Available No t Available Pain Relief Extra Strength (acetaminoph en) 500 mg tablet TAKE 2 TABLETS BY MOUTH EVERY 6 HOURS NEEDED FOR FEVER OR PAIN active Not Available Not Available No t Available diclofenac 1 % topical gel USE 3 TIMES A DAY active Not Available Not Available No t Available GaviLyte-G 236 gram-22.74 gram-6.74 gram-5.86 gram oral solution PLEASE SEE ATTACHED FOR DETAILED DIRECTIONS active Not Available Not Available N ot Available blood pressure test kit-large cuff USE TO CHECK BLOOD PRESSURE TWICE A WEEK active Not Available Not Available No t Available Accu-Chek Guide test strips USE DIRECTED TO TEST BLOOD SUGAR TWICE DAILY active Not Available Not Available No t Available Accu-Chek Guide Me Glucose Meter USE TEST BLOOD SUGAR TWICE DAILY DIRECTED active Not Available Not Available Not Available Vitals Date Recorded Body height Body mass index (BMI) Body weight Provider Name and Address Organization Details Last Updated DateTime 12/20/2023 170.18 cm 29.8 kg/m2 07741.55 g SANDEEP GUERRERO [facility] 12/20/2023 10:13:56 Date Recorded Body height Body mass index (BMI) Body weight Provider Name and Address Organization Details Last Updated DateTime 03/14/2024 170.18 cm 29.8 kg/m2 99539.55 g Raji Hdz [facility] 03/14/2024 10:07:08 Social History None recorded. Functional Status None recorded. Mental Status None recorded. Family History Nothing Reported. Medical History Condition Response Allergies/Hayfever N Coronary Artery Disease N Anxiety/Depression N Emphysema N Thyroid Problems N COPD N Pacemaker N Anemia N Kidney/Bladder Problems N Vascular Disease N Heart Attack ([place]) N Gastrointestinal Disease Y Diabetes Y Autoimmune disease N Bleeding Disorder N Orthotics N Arthritis N Seizures/Epilepsy N Blood Clot N AIDS/HIV N Congestive Heart Failure (CHF) N Acid Reflux (GERD) N Cancer N Stroke N Asthma Y Peripheral Vascular Disease N Sleep Apnea N Hepatitis N Heart Disease N Rheumatoid Arthritis N Arrhythmia N Pulmonary Embolism N Fibromyalgia N Hypertension Y Osteoporosis N Past Encounters Encounter ID Performer Location Encounter Start Date Encounter Closed Date Diagnosis/Indication Diagnosis SNOMED-CT Code Diagnosis ICD10 Code Diagnosis Note [id number] MD [address] [place] [address] 12/20/2023 09:32:46 01/09/2024 12:19:40 Neck pain 69867153 M54.2 Diffuse id iopathic skeletal hyperostosis of cervicothoracic spine 9893897415 71705 M48.13 58-year-ol d male with cervical, thoracic and lumbar fusion consistent with DISH versus ankylosing spondyliti s. Longstandi ng history of pain and limited range of motion. We discussed his diagnosis and treatment options. I will refer him to physical therapy. He will continue his anti-infla mmatory medication s. I will order ankylosing spondyliti s labs and he will follow-up afterwards . Ankylosis of spine 68607 007 M43.20 [id number] Alessandra Lopez CNP [place] [address] [place] [address] 03/14/2024 09:47:09 03/29/2024 07:42:04 Neck pain 72994653 M54.2 Diffuse id iopathic skeletal hyperostosis of cervicothoracic spine 2516975523 38608 M48.13 [id number] Alessandra Lopez CNP [address] [place] [address] 03/29/2024 15:34:17 03/29/2024 16:06:58 Neck pain 96697951 M54.2 Diffuse id iopathic skeletal hyperostosis of cervicothoracic spine 0439161210 51348 M48.13 Health Concerns Section Related Observation LastModified by Organization Detai ls LastModified Time None Recorded Concern Status LastModified by Organization Details LastModified Time None Recorded Advance Directives Directive None Recorded Payers Encounter Date Sequence Insurance Name Policy Number Policy Ortiz Covered Member ID Ortiz Member ID Guarantor Name 12/20/2023 1 [employer] - DOS ON OR AFTER 2022 - ONE CARE (MEDICARE REPLACEMENT/ADV ANTAGE - HMO) Bobby Velasco [id number] Bobby Velasco 03/14/2024 1 [employer] - DOS ON OR AFTER 2022 - ONE CARE (MEDICARE REPLACEMENT/ADV ANTAGE - HMO) Bobby Velasco [id number] Bobby Velasco 03/29/2024 1 [employer] - DOS ON OR AFTER 2022 - ONE CARE (MEDICARE REPLACEMENT/ADV ANTAGE - HMO) Bobby Velasco [id number] Bobby Velasco Notes Date Note Type Note Provider Name and Address Organization Details Recorded Time 12/20/2023 text/html 58-year-old male complains of decades of neck back and lower back pain with decreased range of motion. Symptoms have progressively getting worse over time. Currently complains of radiating pain in the neck upper back with decreased motion. Currently taking anti-inflammatory medications. Has done lower back physical therapy in the past. Sergio Hackett MD [address] [place] [address], [address], [facility] 12/20/2023 10:49:09 03/14/2024 text/html I am seeing the patient under the general supervision of Dr. Ravi who was available but did not see the patient. HPI: 58-year-old male presents for recheck regarding decades of neck back and lower back pain with decreased range of motion. Symptoms have progressively worsened over time. Currently complains of radiating pain in the neck upper back with decreased ROM. Currently taking tylenol and ibuprofen. Has done lower back physical therapy in the past. At last encounter, he was found to have significant radiographic findings of cervical, thoracic and lumbar fusion consistent with DISH versus ankylosing spondylitis. He has participated in physical therapy with little improvement. He did not get his lab work done ordered at last visit. Denies paresthesias RADICULITIS: none PFMSH and ROS have been reviewed, updated, and it is located in the patient's chart. PRIOR TREATMENTS/MEDICATION S: NSAIDs, tylenol, physical therapy - little help MSK EXAM: examination of the cervical spineTenderness to palpation bilateral paracervical muscles.ROM:--- Cervical spine: notably stiff, 60% of normalExtremity strength:--- LUE 5/5--- RUE 5/5Neurologic:--- Positive sensation to light moving touch IMAGING: not indicated today. Previous films demonstrated Fusion of C3 and through all anterior disc spaces distally. Possible fusion of C2-3. Occiput to C1 and C1-C2 do not appear fused. No fractures. Minimal motion on flexion and extension. 2 views of the thoracic spine noted multiple levels of fusion consistent with DISH or ankylosing spondylitis. IMPRESSION: cervicalgia, muscle strain PLAN: Findings discussed with the patient today.1. c-spine MRI ordered to further evaluate.2. Labs re-ordered.3. continue physical therapy4. recommend topicals for pain relief FOLLOW UP: MRI review Speech recognition channeler insole software was used to create portions of this document. An attempt at proofreading has been made to minimize errors. Please call for corrections. Alessandra Lopez, MACHINE SEWER [address] [facility] [address], [place], [address], [facility] 03/14/2024 16:53:17 03/29/2024 text/html telemed I am speaking to the patient under the general supervision of Dr. Hackett who was available but did not speak to the patient. Clinical update 03/29/24:patient presents via TeleMed for cervical spine MRI review. Patient reports no change in symptoms. Still having pain in neck and shoulders with decreased range of motion and stiffness. Denies radicular symptoms. HLA was negative. HPI: 58-year-old male presents for recheck regarding decades of neck back and lower back pain with decreased range of motion. Symptoms have progressively worsened over time. Currently complains of radiating pain in the neck upper back with decreased ROM. Currently taking tylenol and ibuprofen. Has done lower back physical therapy in the past. At last encounter, he was found to have significant radiographic findings of cervical, thoracic and lumbar fusion consistent with DISH versus ankylosing spondylitis. He has participated in physical therapy with little improvement. He did not get his lab work done ordered at last visit. Denies paresthesias RADICULITIS: none PFMSH and ROS have been reviewed, updated, and it is located in the patient's chart. PRIOR TREATMENTS/MEDICATION S: NSAIDs, tylenol, physical therapy - little help MSK EXAM: N/A telemed IMAGING: not indicated today.- Previous films demonstrated Fusion of C3 and through all anterior disc spaces distally. Possible fusion of C2-3. Occiput to C1 and C1-C2 do not appear fused. No fractures. Minimal motion on flexion and extension. 2 views of the thoracic spine noted multiple levels of fusion consistent with DISH or ankylosing spondylitis.- MRI cervical spine dated 03/15/2024 independently reviewed by myself and Dr. Hackett reveal prominent ankylosing osteophytes throughout the cervical spine. No evidence of significant disc herniation, cord compression, central canal stenosis, foraminal stenosis, or nerve compression. IMPRESSION: DISH, cervicalgia PLAN: Findings discussed with the patient today.1. referral to [facility] for evaluation for injection therapy. copy of referral mailed2. HLA negative, no ankylosing spondylitis3. continue physical therapy4. OTC NSAIDs and tylenol not helping much. I prescribed meloxicam. medication education provided. We also discussed muscle relaxers, but patient opted to hold off for now.5. recommend topicals for pain relief FOLLOW UP: prn Speech recognition channeler insole software was used to create portions of this document. An attempt at proofreading has been made to minimize errors. Please call for corrections. time spent: > 20 minutes including independent review of MRI and telephone consultation Alessandra Lopez, MACHINE SEWER [address], [place], [address], [facility] 03/31/2024 18:31:56
--- OUTSIDE RECORDS SUMMARY | 2024-10-24 10:14 | XMS_ITS | Encounter Summary ---
Author Organization [employer] Address [address] [place] [address] [place] [address] Care Team Providers Care Preschool Aide Name Role Phone Ashley Frankel MD Primary Care Provider [phone] Viktor November Unavailable Kishore Dorsey MD Unavailable [phone] Raheel Gee Unavailable [phone] Riya Fulton Unavailable Sergio Hackett Unavailable Unavailable Dominga Silva PharmD Unavailable Reason for Referral * Consultation (Routine) - Authorized Specialty Diagnoses / Procedures Referred By Jeromy worrell Referred To Contact Pharmacy Diagnoses Primary hypertension Ashley Frankel MD [address] [place] [address] Phone: tel: fax: Referral ID Status Reason Start Date Expiration Date Visits Requested Visits Authorized [id number] Authorized Continuity of Care 10/24/2024 10/24/2025 6 6 * Consultation (Routine) - Authorized Specialty Diagnoses / Procedures Referred By Jeromy worrell Referred To Contact Pharmacy Diagnoses Primary hypertension Ashley Frankel MD [address] [place] [address] Phone: tel: fax: Referral ID Status Reason Start Date Expiration Date Visits Requested Visits Authorized [id number] Authorized Consult and Treat 10/24/2024 10/24/2025 6 6 Reason for Visit * Reason Comments follow up bp Encounter Details Date Type Department Care Team (Latest Contact Info) Description 10/24/2024 9:15 AM EST Office Visit [facility] [address] [place] [address] Ashley Frankel MD [address] [place] [address] Primary hypertension (Primary Dx); Weight loss, non-intentional; 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 (CMS/HCC); Overweight; Dietary counseling; Exercise counseling; Dyslipidemia; Type 2 diabetes mellitus without complication, without long-term current use of insulin (CMS/HCC); Pulmonary nodules Social History Tobacco Use Types Packs/Day Years [...] Sign Reading Time Taken Comments Blood Pressure 158/88 10/24/2024 8:55 AM EST Pulse 76 10/24/2024 8:51 AM EST Temperature 36.6 ??C (97.8 ??F) 10/24/2024 8:51 AM ES T Respiratory Rate 20 10/24/2024 8:51 AM EST Oxygen Saturation 95% 10/24/2024 8:51 AM EST Inhaled Oxygen Concentration - - Weight 77.8 kg (171 lb 9.6 oz) 10/24/2024 8:51 A M EST Height 170.2 cm (5' 7 ) 10/24/2024 8:51 AM EST Body Mass Index 26.88 10/24/2024 8:51 AM EST documented in this encounter Progress Notes * Ashley Frankel MD - 10/24/2024 9:15 AM EST Subjective Patient ID: Bobby Velasco is a 59 y.o. male with past medical history of hypertension, Asthma, Dyslipidemia, type 2 diabetes, DISH, solitary pulmonary nodule, pulmonary nodules, and chest discomfort who presents for follow up (bp). Pt reports he has been taking all his medications at night, and none during the day. He notes he has been having elevated BP's at home. BP elevated in clinic. Reports since last referral to [facility] Program with our PharmD, YUE he never followed up. Agrees to be re-referred today. Pt reports he has upcoming follow-up with his urologist for Review of Systems Constitutional: Positive for unexpected weight change. Negative for fever. Respiratory: Negative for shortness of breath. Cardiovascular: Negative for chest pain. Gastrointestinal: Negative for abdominal pain. Genitourinary: Negative for difficulty urinating. Objective Visit Vitals BP (!) 158/88 Pulse 76 Temp 97.8 ??F (36.6 ??C) (Temporal) Resp 20 Body mass index is 26.88 kg/m??. Physical Exam Constitutional: Appearance: Normal appearance. Cardiovascular: Rate and Rhythm: Normal rate and regular rhythm. Heart sounds: Normal heart sounds. Pulmonary: Effort: Pulmonary effort is normal. Breath sounds: Normal breath sounds. Neurological: Mental Status: Mental status is at baseline. Psychiatric: Behavior: Behavior normal. Problem List Items Addressed This Visit Hypertension - Primary -Blood pressure is not at goal -Continue lifestyle modifications -Continue current medications -Continue lisinopril 40mg daily -Continue amlodipine 10mg daily -Chlorthalidone 25mg started 04/27/2023. - Referred to [facility] Therapy [facility] Program with our YUE Cronin 07/17/24 -BP elevated 158/88 10/24/24 -referred back to [facility] Therapy [facility] Program with our YUE Cronin 10/24/24 -advised to take lisinopril at night and other meds in am (was taking all at night) and continue toche home BP 10/24/24 Relevant Medications lisinopril 40 MG tablet Other Relevant Orders Referral to Pharmacy CDTM Referral to Pharmacy MT Weight loss, non-intentional Baseline weight 2023 190 lbs until 06/2024 when weight started to drop Weight 10/24/23: 171 lbs Reports unknown weight loss over the past couple months. Denies fatigue, fevers, lymphadenopathy orrecent illness. 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 Used motivational interviewing to illicit change talk and established initial goals with patient. Dietary counseling Dietary Recommendations: Fruits, vegetables, whole grains, protein foods, and fat-free or low-fat dairy products are healthychoices. Eat different types of protein foods in your diet. This can include seafood, lean meats, poultry, beans, peas, lentils, nuts, seeds, soy products, and eggs. Limit foods and beverages higher in added sugars, saturated fat, and sodium. RESOLVED: Exercise counseling Exercise Recommendations: At least 150 minutes of moderate-intensity physical activity per week, or an equivalent combinationof moderate- and vigorous-intensity activity Dyslipidemia Lab Results Component Value Date CHOL 146 08/13/2024 CHOL 185 07/17/2024 CHOL 183 06/29/2023 TRIG 86 08/13/2024 TRIG 79 07/17/2024 TRIG 65 06/29/2023 TRIG 95 11/11/2022 HDL 33 (L) 08/13/2024 HDL 60 07/17/2024 HDL 59 06/29/2023 LDLCHOLCAL 96 08/13/2024 LDLCHOLCAL 110 (H) 07/17/2024 LDLCHOLCAL 111 (H) 06/29/2023 -continue lifestyle modifications -Atorvastatin 80mg (dose increased 06/2024) -continue medication above. Relevant Medications atorvastatin (Lipitor) 80 MG tablet Diabetes mellitus type 2, uncomplicated (CMS/HCC) Pulmonary nodules Follow up in about 3 months (around 01/21/2025) for BP. I, Homero Pathak, am serving as a scribe to document services personally performed by Dr. Hunter, based on the patient's response to questions by provider and providers statements to me. documented in this encounter Miscellaneous Notes * Assessment & Plan Note - Homero Pathak - 10/24/2024 9:16 AM ESTAssociated Problem(s): Weight loss, non-intentional Baseline weight 2023 190 lbs until 06/2024 when weight started to drop Weight 10/24/23: 171 lbs Reports unknown weight loss over the past couple months. Denies fatigue, fevers, lymphadenopathy orrecent illness. -colonoscopy normal 04/06/23 -CXR normal 08/2024 -CT abd 10/22 with not pathology that would be concern for weight loss -ordered lactate dehydrogenase, Vit D, TSH, and HIV 10/24/24 * Assessment & Plan Note - Homero Pathak - 10/24/2024 9:09 AM ESTAssociated Problem(s): Dyslipidemia Lab Results Component Value Date CHOL 146 08/13/2024 CHOL 185 07/17/2024 CHOL 183 06/29/2023 TRIG 86 08/13/2024 TRIG 79 07/17/2024 TRIG 65 06/29/2023 TRIG 95 11/11/2022 HDL 33 (L) 08/13/2024 HDL 60 07/17/2024 HDL 59 06/29/2023 LDLCHOLCAL 96 08/13/2024 LDLCHOLCAL 110 (H) 07/17/2024 LDLCHOLCAL 111 (H) 06/29/2023 -continue lifestyle modifications -Atorvastatin 80mg (dose increased 06/2024) -continue medication above. * Assessment & Plan Note - Homero Pathak - 10/24/2024 9:00 AM ESTAssociated Problem(s): Exercise counseling (Resolved 10/24/2024) Exercise Recommendations: At least 150 minutes of moderate-intensity physical activity per week, or an equivalent combinationof moderate- and vigorous-intensity activity * Assessment & Plan Note - Homero Pathak - 10/24/2024 9:00 AM ESTAssociated Problem(s): Dietary counseling Dietary Recommendations: Fruits, vegetables, whole grains, protein foods, and fat-free or low-fat dairy products are healthychoices. Eat different types of protein foods in your diet. This can include seafood, lean meats, poultry, beans, peas, lentils, nuts, seeds, soy products, and eggs. Limit foods and beverages higher in added sugars, saturated fat, and sodium. * Assessment & Plan Note - Homero Pathak - 10/24/2024 8:59 AM ESTAssociated Problem(s): Overweight Discussed weight, diet, exercise with patient in relation to health conditions. Used motivational interviewing to illicit change talk and established initial goals with patient. * Assessment & Plan Note - Homero Pathak - 10/24/2024 8:59 AM ESTAssociated Problem(s): Hypertension -Blood pressure is not at goal -Continue lifestyle modifications -Continue current medications -Continue lisinopril 40mg daily -Continue amlodipine 10mg daily -Chlorthalidone 25mg started 04/27/2023. - Referred to [facility] Therapy [facility]agment Program with our YUE Cronin 07/17/24 -BP elevated 158/88 10/24/24 -referred back to [facility] Therapy [facility] Program with our YUE Cronin 10/24/24 -advised to take lisinopril at night and other meds in am (was taking all at night) and continue tocheck home BP 10/24/24 documented in this encounter Plan of Treatment Upcoming Encounters Date Type Department Care Team (Late st Contact Info) Description 12/09/2024 8:00 AM EDT Office Visit [facility] [address] [place] [address] Jackie Peacock Scheduled Orders Name Type Priority Associated Diagnoses Orde r Schedule Lactate Dehydrogenase (LD) Lab Routine Weight loss, non-intentional Expected: 10/24/2024 (Approximate), Expires: 10/24/2025 Vitamin D, 25-Hydroxy, Total, Immunoassay Lab Routine Weight loss, non-intentional Expected: 10/24/2024 (Approximate), Expires: 10/24/2025 TSH W/Reflex to FT4 Lab Routine Weight loss, non-intentional Expected: 10/24/2024 (Approximate), Expires: 10/24/2025 HIV-1/2 Antigen and Antibodies, Fourth Generation, with Reflexes Lab Routine Weight loss, non-intentional Expected: 10/24/2024 (Approximate), Expires: 10/24/2025 Scheduled Referrals Name Type Priority Associated Diagnoses Orde r Schedule Referral to Pharmacy CDTM Outpatient Referral Routine Primary hypertension Ordered: 10/24/2024 Referral to Pharmacy MTM Outpatient Referral Routine Primary hypertension Ordered: 10/24/2024 documented as of this encounter Visit Diagnoses Diagnosis Primary hypertension- Primary Unspecified essential hypertension Weight loss, non-intentional Loss of weight 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 (CMS/HCC) Overweight Dietary counseling Dietary surveillance and counseling Exercise counseling Dyslipidemia Other and unspecified hyperlipidemia Type 2 diabetes mellitus without complication, without long-term current use of insulin (CMS/HCC) Pulmonary nodules Other diseases of lung, not elsewhere classified documented in this encounter Additional Health Concerns Assessment Noted Time PHQ-9 Depression Total Score: 0 07/17/20 10:33 AM EST documented as of this encounter Care Teams Preschool Aide Relationship Specialty Start Date End Date Ashley Frankel MD [address] [place] [address] PCP - General Family Medicine 08/28/18November [address] [address] Gastroenterology 07/17/24 Kishore Dorsey MD 10 [facility] [address] [place] [address] Urology 07/17/24 Raheel Gee 5 [place], [place] [address] Pulmonary Disease 07/17/24 Riya Fulton [address] [address] Cardiology 07/17/24 Sergio Hackett [address] [place] [address] Orthopaedic Surgery 07/17/24 Dominga Silva, Mehrdad [address] [place] [address] Pharmacist Internal Medicine 07/22/24 Norm. [place] Psychiatry 10/10/24 documented as of this encounter
--- OUTSIDE RECORDS SUMMARY | 2024-10-24 10:15 | XMS_ITS | Encounter Summary ---
Author Organization [employer] Address [address] [facility] 7t [place] [address] Care Team Providers Care Marker Hand Name Role Phone Ashley Frankel MD Primary Care Provider [phone] November Unavailable Kishore Dorsey MD Unavailable Raheel Gee Unavailable [phone] Riya Fulton Unavailable Sergio Hackett Unavailable Unavailable Dominga Silva PharmD Unavailable Reason for Visit * Reason Comments Scaling And Root Planing Encounter Details Date Type Department Care Team (Late st Contact Info) Description 05/29/2024 11:00 AM EDT Office Visit [facility]ULT [facility] [address] [place] [address] Jackie Peacock Dental calculus (Primary Dx); Dental [...] Timeout Time: 1118 (Dental SRP Adult) Location: [facility] Tooth: UL and LL Procedure: Scaling and Root Planing Verified the above with patient, medical assistant secretary, and provider. Confirmed via patient's chart, intraorally and by radiographs. Hemp Fiber Taker Off: not applicable Medical Hx: Vitals: There were [...] patient including brushing technique and flossing. Recommendations: Maud two times daily, modified burgess technique, Floss daily, Electric toothbrush, Soft bristle toothbrush, Maud Tongue Recall Frequency: 6 mo NV: 6mrc [...] Description 12/09/2024 8:00 AM EDT Office Visit [facility] [address] [place] [address] Jackie Peacock documented as of this encounter Procedures Procedure Name Priority Date/Time Associated Diagnosis Comments UL PERIODONTAL SCALING AND ROOT PLANING - 4 OR MORE TEETH PER QUADRANT Routine 05/29/2024 11:00 AM EDT Dental calculus Dental plaque Tartar CASE PRESENTATION, DETAILED AND EXTENSIVE TREATMENT PLANNING Routine 05/29/2024 11:00 AM EDT documented in this encounter Visit Diagnoses Diagnosis Dental calculus- Primary Accretions on teeth Dental plaque Accretions on teeth Tartar Accretions on teeth documented in this encounter Care Teams Marker Hand Relationship Specialty Start Date End Date Ashley Frankel MD [address] [place] [address] PCP - General Family Medicine 1/1/November [address] 3rd [place] [address] Gastroenterology 07/17/24 Kishore Dorsey MD [address] [place] [address] Urology 07/17/24 Raheel Gee 5 [place], [place] 10[address] Pulmonary Disease 07/17/24 Riya Fulton [address] 3rd [place] [address] Cardiology 07/17/24 Sergio Hackett [address]nd [place] [address] Orthopaedic Surgery 07/17/24 Dominga Silva, Mehrdad [address] [place] [address] Pharmacist Internal Medicine 07/22/24 documented as of this encounter
--- OUTSIDE RECORDS SUMMARY | 2024-10-24 10:15 | XMS_ITS | Encounter Summary ---
Author Organization [employer] Address [address] [place] [address] [address] [place] [address] Care Team Providers Care Applications Developer Name Role Phone Ashley Frankel MD Primary Care Provider [phone] Viktor November Unavailable Kishore Dorsey MD Unavailable [phone] Raheel Gee Unavailable [phone] Riya Fulton Unavailable Sergio Hackett Unavailable Unavailable Dominga Silva PharmD Unavailable Encounter Details Date Type Department Care Team (Late st Contact Info) Description 04/07/2023 Abstract [facility]INE [address] [place], [place] [phone] Ashley Frankel MD [address] [place], [place] [phone] Social History Tobacco Use Types Packs/Day Years [...] Description 12/09/2024 8:00 AM EDT Office Visit [facility] ADULT DENTAL [address] [place] [address] Jackie Peacock documented as of this encounter Procedures Procedure Name Priority Date/Time Associated Diagnosis Comments COLONOSCOPY Routine 04/06/2023 documented in this encounter Results * Colonoscopy (04/06/2023) Colonoscopy Normal Normal us Historical Provider HEALTH MAINTENANCE Final Result documented in this encounter Visit Diagnoses Not on filedocumented in this encounter Care Teams Applications Developer Relationship Specialty Start Date End Date Ashley Frankel MD [address] [place] [address] PCP - General Family Medicine 08/28/18November 11 [facility] 3rd [place] [address] Gastroenterology 07/17/24 Kishore Dorsey MD 10 [facility] [address] [place] [address] Urology 07/17/24 Raheel Gee 5 [place], [place] 10[address] Pulmonary Disease 07/17/24 Riya Fulton 11 [facility] [address] [place] [address] Cardiology 07/17/24 Sergio Hackett [address] [place] [address] Orthopaedic Surgery 07/17/24 Dominga Silva PharmD [address] [place] [address] Pharmacist Internal Medicine 07/22/24 De. Dalal Psychiatry 10/10/24 documented as of this encounter
--- OUTSIDE RECORDS SUMMARY | 2024-10-24 10:15 | XMS_ITS | Encounter Summary ---
Author Organization [employer] Address [address] [facility] 7t [place] [address] Care Team Providers Care Drafter Assistant Name Role Phone Ashley Frankel MD Primary Care Provider [phone]- [phone] Hoang November Unavailable Kishore Dorsey MD Unavailable [phone] Raheel Gee Unavailable [phone] Riya Fulton Unavailable Sergio Hackett Unavailable Unavailable Dominga SilvaD Unavailable Reason for Referral * Imaging (Urgent) - Closed Specialty Diagnoses / Procedures Referred By Jeromy worrell Referred To Contact Radiology Diagnoses Other microscopic hematuria Acute bilateral low back pain without sciatica Procedures US Renal Urinary bladder Malika Mac MD [address] [place] [address] Phone: tel: fax: [address] Phone: tel: fax: Referral ID Status Reason Start Date Expiration Date Visits Re quested Visits Authorized [id number] Closed 09/27/2024 09/27/2025 1 1 Reason for Visit * Reason Comments Back Pain Encounter Details Date Type Department Care Team (Late st Contact Info) Description 09/27/2024 11:00 AM EST Office Visit [facility] [address] [place] [address] Malika Mac MD [address] [place], [place] [phone] Other microscopic hematuria (Primary Dx); Acute bilateral [...] - 09/27/2024 11:00 AM EST SUBJECTIVE: Bobby Velasco is a 59 y.o. year old male [...] AM EST Associated Problem(s): Other microscopic hematuria (Resolved 10/24/2024) Associated to low back pain, rule out [...] Description 12/09/2024 8:00 AM EDT Office Visit [facility] ADULT D[facility] [address] [place] [address] Jackie Paecock Scheduled Orders Name Type Priority Associated Diagnoses [...] Acute bilateral low back pain without sciatica documented in this encounter Additional Health Concerns Assessment Noted Time PHQ-9 Depression Total Score: 0 07/17/20 10:33 AM EST documented as of this encounter Care Teams Drafter Assistant Relationship Specialty Start Date End Date Ashley Frankel MD [address] [place] [address] PCP - General Family Medicine 08/28/[address] 3rd [place] [address] Gastroenterology 07/17/24 Kishore Dorsey MD [address] [place] [address] Urology 07/17/24 Raheel Gee 5 [place], [place] 10[address] Pulmonary Disease 07/17/24 Riya Fulton [address] [place] [address] Cardiology 07/17/24 Sergio Hackett [address] [place] [address] Orthopaedic Surgery 07/17/24 Dominga Silva PharmD 230 [place] [address] Pharmacist Internal Medicine 07/22/24 documented as of this encounter
--- OUTSIDE RECORDS SUMMARY | 2024-10-24 10:15 | XMS_ITS | Encounter Summary ---
Author Organization [employer] Address [address] [place] [address] 7t [place] [address] Care Team Providers Care Swatcher Name Role Phone Ashley Frankle MD Primary Care Provider [phone] Hoang, November Unavailable Kishore Dorsey MD Unavailable Raheel Gee Unavailable [phone] Riya Fulton Unavailable Sergio Hackett Unavailable Unavailable Dominga Silva PharmD Unavailable [phone] Reason for Visit * Reason Onset Date Comments Nurse Triage 09/27/2024 Encounter Details Date Type Department Care Team (Late st Contact Info) Description 09/27/2024 Telephone [facility] MEDICINE [address] [place] [address] Ashley Frankel MD [address] [place], [place] [phone] Nurse Triage Social History Tobacco Use Types [...] the past 12 months, has t he [place], gas, oil or water [employer] threatened to shut off services in your [...] Pt advised of disposition, agrees to seek [facility] for exam as no sick on site [facility] at time of call. Reviewed [facility] hours for today and tomorrow. Reviewed [facility] operating hours and that wait times vary. [...] become worse * Telephone Encounter - Anamaria Javy Payton - 09/27/2024 10:08 AM EST Symptom: (Right lower) Back Pain - Not From Injury Outcome: Transfer to a nurse or provider NOW! Reason: Age over 30: sudden AND severe upper back pain [phone] documented in this encounter Plan of Treatment Upcoming Encounters Date Type Department Care Team (Late st Contact Info) Description 12/09/2024 8:00 AM EDT Office Visit [facility] ADULT DENTAL [address] [place] [address] Jackie Peacock documented as of this encounter Visit Diagnoses Not on filedocumented in this encounter Additional Health Concerns Assessment Noted Time PHQ-9 Depression Total Score: 0 07/17/20 10:33 AM EST documented as of this encounter Care Teams Swatcher Relationship Specialty Start Date End Date Ashley Frankel MD [address] [place] [address] PCP - General Family Medicine 08/28/18November [address] [address] Gastroenterology 07/17/24 Kishore Dorsey MD [address] [facility] [address] [place] [address] Urology 07/17/24 Raheel Gee 5 [place], [place] [address] Pulmonary Disease 07/17/24 Riya Fulton 11 [facility] 3rd [place] [address] Cardiology 07/17/24 Sergio Hackett [address]nd [place] [address] Orthopaedic Surgery 07/17/24 Dominga Silva PharmD [address] [place] [address] Pharmacist Internal Medicine 07/22/24 documented as of this encounter
--- OUTSIDE RECORDS SUMMARY | 2024-10-24 10:15 | XMS_ITS | Encounter Summary ---
Author Organization [employer] Address [address] [place] [address] 7t [place] [address] Care Team Providers Care Kaia[place]ina Kura [place] Maori Name Role Phone Ashley Frankel MD Primary Care Provider [phone] November Unavailable Kishore Dorsey MD Unavailable Raheel Gee Unavailable [phone] Riya Fulton Unavailable Sergio Hackett Unavailable Unavailable Dominga Silva PharmD Unavailable Encounter Details Date Type Department Care Team (Late st Contact Info) Description 02/01/2023 Telephone [facility] MEDICINE [address] [place], [place] [phone] Ashley Frankel MD [address] [place], [place] [phone] Social History Tobacco Use Types Packs/Day Years [...] 8:00 AM EDT Office Visit [facility] ADULT DENTAL [address] [place] [address] Jackie Peacock documented as of this encounter Visit Diagnoses Not on filedocumented in this encounter Care Teams Kaia[place]ina Kura [place] Maori Relationship Specialty Start Date End Date Ashley Frankel MD [address] [place] [address] PCP - General Family Medicine 08/28/18November 11 [facility] [address] [place] [address] Gastroenterology 07/17/24 Kishore Dorsey MD 10 [facility] [address] [place] [address] Urology 07/17/24 Raheel Gee 5 [place], [place] [address] Pulmonary Disease 07/17/24 Riya Fulton [address] [address] Cardiology 07/17/24 Sergio Hackett [address] [place] [address] Orthopaedic Surgery 07/17/24 Dominga Silva, Mehrdad 230 [place] [address] Pharmacist Internal Medicine 07/22/24 [facility] Psychiatry 10/10/24 documented as of this encounter
[2024-10-24 12:19] LABS: Lactate Dehydrogenase 248 U/L (118-273)
[2024-10-24 12:35] LABS: TSH reflex Free T4 1.31 uIU/mL (0.32-4.0); Vitamin D 25-OH Total 39.3 ng/mL (>30)
[2024-10-24 12:38] LABS: HIV AB/AG Nonreactive (Nonreactive); HIV Num 1 0.06 S/CO (0.00-0.99)
== END 2024-10-24 09:21 | disposition home or self-care (01) ==
LOC: HO.HHCL 09:20
PROVIDERS: Visit Provider Family Medicine
DX: Z13.89 Encounter for screening for other disorder (principal)
CPT/HCPCS: 36415; 82306; 83615; 84443; 87389

== ENCOUNTER 2024-10-24 12:24 | Emergency (ER) | payer OTHER, SELFPAY ==
--- NOTE | ~2024-10-24 | XR_ITS ---
EXAMINATION: XR CHEST CLINICAL INFORMATION: Chest tigthness COMPARISON: September 09, 2024. TECHNIQUE: Frontal view of the chest was obtained. FINDINGS: No consolidation, pleural effusion or pneumothorax. Cardiomediastinal silhouette size is normal. S-shaped curvature of the thoracic spine. Multilevel thoracolumbar spondylosis. Degenerative changes in the right shoulder. Probable pigtail catheter in the right hemiabdomen. XR/XR chest 1V IMPRESSION: No acute airspace disease. Electronically signed by: Jeffrey Roldan MD 10/24/2024 01:42 PM DAVIDE
[2024-10-24 13:15] VITALS: BP 118/88; PULSE 82; RESP 18; TEMP 36.4; O2SAT 98; BMI 26.5
--- NOTE | 2024-10-24 13:21 | ED_ITS ---
HPI - Chest Pain General Chief Complaint: Chest Pain Stated Complaint: BP high Time Seen by Provider: 10/24/24 16:53 Source: patient Limitations: no limitations History of Present Illness ED Provider: Sylvain HPI narrative: 59yo male with pmhx of HTN presenting for high blood pressure and chest tightness. Patient states that he forgot to take his antihypertensive meds yesterday and earlier today had an a period of chest tightness. He immediately to his blood pressure noticed head was 220/100. He subsequently took his antihypertensive meds and his chest tightness resolved shortly after. He denies experiencing chest pain, diaphoresis, shortness of breath. Related Data Home Medications ?Medication ?Instructions ?Recorded ?Confirmed aspirin 81 mg tablet,delayed 81 mg PO DAILY 08/04/20 09/30/24 release blood sugar diagnostic (FreeStyle #10 ea 06/22/21 03/22/24 Lite Strips) lancets 33 gauge (TRUEplus Lancets) #100 ea 06/22/21 03/22/24 chlorthalidone 25 mg tablet 25 mg PO DAILY 06/09/23 09/30/24 hydroxyzine HCl 25 mg tablet 25 mg PO QID PRN Anxiety 02/09/24 09/30/24 trazodone 50 mg tablet 50 mg PO BEDTIME PRN Insomnia 02/09/24 09/30/24 cetirizine 10 mg tablet (Zyrtec) 10 mg PO DAILY PRN Allergies 06/06/24 09/30/24 albuterol sulfate 90 mcg/actuation 2 puff inhalation Q6H PRN dyspnea 09/30/24 09/30/24 aerosol inhaler fluticasone propionate 50 2 spray intranasal DAILY PRN 09/30/24 09/30/24 mcg/actuation nasal Allergy Symptoms spray,suspension tamsulosin 0.4 mg capsule 0.4 mg PO DAILY 09/30/24 09/30/24 tramadol 50 mg tablet 50 mg PO BEDTIME PRN Pain 09/30/24 09/30/24 atorvastatin 80 mg tablet 80 mg PO DAILY 10/01/24 10/01/24 Previous Rx's ?Medication ?Instructions ?Recorded acetaminophen 500 mg tablet 1,000 mg (2 x 500 mg) PO Q6H PRN 12/16/23 (Tylenol Extra Strength) fever or pain #20 tabs terazosin 5 mg capsule 5 mg PO BEDTIME 90 days #90 caps 04/26/24 famotidine 40 mg tablet 40 mg PO DAILY PRN for heartburn 05/08/24 #90 tabs amlodipine 10 mg tablet 10 mg PO DAILY #90 tabs 06/24/24 lisinopril 40 mg tablet 40 mg PO DAILY #90 tabs 07/01/24 meclizine 25 mg tablet 25 mg PO BID PRN dizziness #14 tabs 07/19/24 docusate sodium 100 mg capsule 100 mg PO BID #14 caps 10/02/24 (Colace) hydromorphone 2 mg tablet 2 mg PO Q6H PRN pain #10 tabs 10/02/24 (Dilaudid) phenazopyridine 100 mg tablet 100 mg PO TIDWM PRN pain #9 tabs 10/02/24 sennosides 8.6 mg capsule (senna) 8.6 mg PO BEDTIME PRN constipation 10/02/24 #14 caps cefuroxime axetil 500 mg tablet 500 mg PO BID 5 days #10 tabs 10/07/24 phenazopyridine 200 mg tablet 200 mg PO BID 5 days #10 tabs 10/16/24 (Pyridium) Allergies Allergy/AdvReac Type Severity Reaction Status Date / Time amoxicillin [AMOXICILLIN] Allergy Severe ANAPHYLAXIS Verified 10/24/24 13:16 Penicillins Allergy Severe UNKNOWN Verified 10/24/24 13:16 REACTION-CHILDHOOD doxycycline [From VIBRAMYCIN] AdvReac Mild DIARRHEA Verified 10/24/24 13:16 Clindamycin HCl Allergy Severe Anaphylaxis Uncoded 10/24/24 13:16 Review of Systems 2 Review of Systems: Yes all other systems are reviewed and are negative PMFSH Past Medical History Medical History Opacity of lung on imaging study Pre-op examination GERD (gastroesophageal reflux disease) Orchialgia Weak urinary stream Asthma Nasal polyps Diabetes HTN (hypertension) Pulmonary nodules Surgical History History of esophagogastroduodenoscopy (EGD) Hx of colonoscopy H/O wrist surgery Family History Family History Father Diabetes Hypertension Mother Hypertension Hyperlipidemia Brother Hypertension Family/Other Kidney stones Prostate cancer Bladder cancer Renal cancer Social History Social History Household Members: None Housing: Apartment Alcohol intake: former Patient Tobacco Use Status: Former Tobacco user Tobacco use type: Cigarette Years Smoked: 30 years Advance Directives: No Advance Directives Information Provided: Yes service: No Physical Exam 2 Vital Signs: Vital Signs: Last Vital Signs Temp 97.7 F 10/24/24 18:04 Pulse 68 10/24/24 18:04 Resp 18 10/24/24 18:04 BP 139/74 10/24/24 18:04 Pulse Ox 99 10/24/24 18:04 O2 Del Method Room Air 10/24/24 18:04 BMI result Body Mass Index 26.5 Well-appearing male in no acute distress Alert and orient x4; normal speech and cognition; no focal neurologic deficits appreciated; walking with steady gait Lungs clear to auscultation bilaterally Normal S1-S2 regular rate and rhythm; chest wall stable nontender Abdomen is soft nontender nondistended No lower extremity edema appreciated Course Course Course Narrative: RME: 59-year-old male presents to ED for dizziness, elevated blood pressure systolic to 220, and chest tightness. Vital signs normal. labs, EkG, and chest xray ordered Medical Decision Making Medical Decision Making MDM Narrative: 59yo male presenting for hypertension - I am concerned for primary hypertension - low suspicion for ACS; reassuring HPI physical exam and low heart score Lab and imaging interpretation - stable H&H, no white count, electrolytes wnl, - no signs of ischemia on ekg - I do not appreciate pneumo or consolidation on cxr; the radiology impression is negative - negative troponin x2 On my assessment patient is well-appearing. He has not had reoccurrence of chest pain. I discussed workup with him explaining that his troponins are negative and his EKG looks unchanged from prior. Considered admission however I feel that patient can be discharged home with outpatient follow up. Patient is agreeable to discharge. I instructed him to follow up with his PCP and gave him return precautions Lab Data 10/24/24 14:30 10/24/24 14:30 Labs: Lab Results 10/24/24 10/24/24 Range/Units 14:30 16:58 WBC 5.1 (4.8-10.8) X10*3/uL RBC 4.31 L (4.60-5.80) X10*6/uL Hgb 13.0 L (14.0-18.0) g/dl Hct 39.1 L (42.0-52.0) % MCV 90.7 (80.0-98.0) fL MCH 30.2 (27.0-33.0) pg MCHC 33.2 (31.0-36.0) g/dl RDW 12.6 (11.0-16.0) % Plt Count 290 (160-400) X10*3/uL MPV 9.7 (9.4-12.4) fL Immature Gran % (Auto) 0.2 (0.0-0.4) % Neut % (Auto) 68.7 (45-73) % Lymph % (Auto) 19.5 L (20-40) % [place] % (Auto) 9.8 (2-11) % Eos % (Auto) 1.2 (0-4) % Baso % (Auto) 0.6 (0-2) % Lymph # (Auto) 1.0 L (1.2-4.9) X10*3/uL [place] # (Auto) 0.5 (0.1-1.2) X10*3/uL Eos # (Auto) 0.1 (0.0-0.4) X10*3/uL Baso # (Auto) 0.0 (0.0-0.2) X10*3/uL Abs Immat Gran (auto) 0.01 (0.00-0.03) X10*3/uL Absolute Neuts (auto) 3.5 (2.0-8.3) x10*3/uL Absolute Nucleated RBC 0.000 (0.0-0.012) X10*3/uL Nucleated RBC % (auto) 0.0 (0.0-0.2) /100WBC PT 10.9 (10.9-12.4) SEC INR 0.9 (0.9-1.1) APTT 35.7 (26.0-36.8) SEC Sodium 141 (135-145) mmol/L Potassium 3.8 (3.3-5.1) mmol/L Chloride 108 (96-108) mmol/L Carbon Dioxide 28 (22-29) mmol/L Anion Gap 9 L (12-20) BUN 12 (9-16) mg/dL Creatinine 0.91 (0.5-1.4) mg/dL Estim Creat Clear Calc 80.7 Estimated GFR > 60 Random Glucose 197 H (60-115) mg/dL Calcium 8.9 D (8.4-10.2) mg/dL Total Bilirubin 0.7 (0.0-1.0) mg/dL AST 22 (5-37) U/L ALT 12 (0-40) U/L Alkaline Phosphatase 88 (39-117) U/L Troponin I High Sens 4.1 3.4 (<3.5-35.0) ng/L B-Natriuretic Peptide 32 (<100) pg/mL Total Protein 6.8 (6.5-8.0) g/dL Albumin 3.9 (3.5-5.0) g/dL Discharge Plan Discharge Clinical Impression: Hypertension Patient Disposition: Home, Self-Care Instructions: Hypertension (ED) Additional Instructions: Please follow up with your primary care provider in the next 24-48 hours for re- evaluation. If you develop any new or worsening symptoms please return to the emergency department Prescriptions: No Action terazosin 5 mg capsule 5 mg PO BEDTIME 90 Days Qty: 90 1RF famotidine 40 mg tablet 40 mg PO DAILY PRN (Reason: for heartburn) Qty: 90 4RF amlodipine 10 mg tablet 10 mg PO DAILY Qty: 90 3RF lisinopril 40 mg tablet 40 mg PO DAILY Qty: 90 3RF cefuroxime axetil 500 mg tablet 500 mg PO BID 5 Days Qty: 10 0RF phenazopyridine [Pyridium] 200 mg tablet 200 mg PO BID 5 Days Qty: 10 0RF acetaminophen [Tylenol Extra Strength] 500 mg tablet 1,000 mg PO Q6H PRN (Reason: fever or pain) Qty: 20 0RF meclizine 25 mg tablet 25 mg PO BID PRN (Reason: dizziness) Qty: 14 0RF tramadol 50 mg tablet 50 mg PO BEDTIME PRN (Reason: Pain) tamsulosin 0.4 mg capsule 0.4 mg PO DAILY albuterol sulfate 90 mcg/actuation HFA aerosol inhaler 2 puff INHALATION Q6H PRN (Reason: dyspnea) fluticasone propionate 50 mcg/actuation spray,suspension 2 spray intranasal DAILY PRN (Reason: Allergy Symptoms) atorvastatin 80 mg tablet 80 mg PO DAILY hydromorphone [Dilaudid] 2 mg tablet 2 mg PO Q6H PRN (Reason: pain) Qty: 10 0RF Rx Instructions: Partial Fill upon patient request. docusate sodium [Colace] 100 mg capsule 100 mg PO BID Qty: 14 0RF phenazopyridine 100 mg Tablet 100 mg PO TIDWM PRN (Reason: pain) Qty: 9 0RF senna 8.6 mg capsule 8.6 mg PO BEDTIME PRN (Reason: constipation) Qty: 14 0RF aspirin 81 mg tablet,delayed release (DR/EC) 81 mg PO DAILY (DME) lancets [TRUEplus Lancets] 33 gauge misc See Rx Instructions Not Applicable TID Qty: 100 Rx Instructions: As directed (DME) FreeStyle Lite Strips Strip See Rx Instructions Not Applicable TID Qty: 10 Rx Instructions: As directed chlorthalidone 25 mg tablet 25 mg PO DAILY hydroxyzine HCl 25 mg tablet 25 mg PO QID PRN (Reason: Anxiety) trazodone 50 mg tablet 50 mg PO BEDTIME PRN (Reason: Insomnia) cetirizine [Zyrtec] 10 mg tablet 10 mg PO DAILY PRN (Reason: Allergies) Interventions: ED Discharge Assessment Last Done: 10/24/24 18:04 Discharge Date/Time: 10/24/24 18:04 Print Language: American
--- NOTE | 2024-10-24 13:22 | ECG_ITS ---
Test Reason : CHEST TIGHTNESS Blood Pressure : */* mmHG Vent. Rate : 73 BPM Atrial Rate : 73 BPM P-R Int : 146 ms QRS Dur : 94 ms QT Int : 400 ms P-R-T Axes : 59 77 63 degrees QTcB Int : 440 ms Normal sinus rhythm Normal ECG When compared with ECG of 09-Sep-2024 10:26, No significant change was found Referred By: Alexy Yang Electronically Signed By: Joaquin Saunders
[2024-10-24 14:36] LABS: MANUAL DIFF FLAG NO
[2024-10-24 14:38] LABS: Basophils Percent Auto 0.6 % (0-2); Eosinophils Absolute Auto 0.1 X10*3/uL (0.0-0.4); Eosinophils Percent Auto 1.2 % (0-4); Hematocrit 39.1 % (42.0-52.0); Imm Gran Abs Auto 0.01 X10*3/uL (0.00-0.03); Imm Gran Pct Auto 0.2 % (0.0-0.4); Lymphocytes Percent Auto 19.5 % (20-40); Mean Corpuscular HGB Conc 33.2 g/dl (31.0-36.0); Mean Corpuscular Hemoglobin 30.2 pg (27.0-33.0); Mean Corpuscular Volume 90.7 fL (80.0-98.0); Mean Platelet Volume 9.7 fL (9.4-12.4); Monocytes Absolute Auto 0.5 X10*3/uL (0.1-1.2); Monocytes Percent Auto 9.8 % (2-11); Neutrophils Absolute Auto 3.5 x10*3/uL (2.0-8.3); Neutrophils Percent Auto 68.7 % (45-73); Platelet Count 290 X10*3/uL (160-400); Red Blood Count 4.31 X10*6/uL (4.60-5.80); Red Cell Distribution Width 12.6 % (11.0-16.0); White Blood Count 5.1 X10*3/uL (4.8-10.8)
[2024-10-24 14:46] LABS: INTERNATIONAL NORM RATIO 0.9 (0.9-1.1); Prothrombin Time 10.9 SEC (10.9-12.4)
[2024-10-24 14:49] LABS: Partial Thromboplastin Time 35.7 SEC (26.0-36.8)
[2024-10-24 14:55] LABS: Alanine Aminotransferase 12 U/L (0-40); Albumin Level 3.9 g/dL (3.5-5.0); Alkaline Phosphatase 88 U/L (39-117); Anion Gap 9 (12-20); Aspartate Amino Transferase 22 U/L (5-37); Bilirubin Total 0.7 mg/dL (0.0-1.0); Blood Urea Nitrogen 12 mg/dL (9-16); Calcium 8.9 mg/dL (8.4-10.2); Carbon Dioxide 28 mmol/L (22-29); Chloride 108 mmol/L (96-108); Creatinine Clr Calc Pharmacy 80.7; Estimated Glomerular Filt Rate > 60; Glucose Random 197 mg/dL (60-115); Potassium 3.8 mmol/L (3.3-5.1); Sodium 141 mmol/L (135-145); Total Protein 6.8 g/dL (6.5-8.0)
[2024-10-24 15:00] LABS: B Type Natriuretic Peptide 32 pg/mL (<100)
[2024-10-24 15:01] LABS: Troponin-I High Sensitivity 4.1 ng/L (<3.5-35.0)
[2024-10-24 16:17] VITALS: BP 139/74; PULSE 68; RESP 18; TEMP 36.5; O2SAT 99
[2024-10-24 17:31] LABS: Troponin-I High Sensitivity 3.4 ng/L (<3.5-35.0)
[2024-10-24 18:04] VITALS: BP 139/74; PULSE 68; RESP 18; TEMP 36.5; O2SAT 99
--- OUTSIDE RECORDS SUMMARY | 2024-10-24 19:25 | XMS_ITS | Encounter Summary ---
Author Organization [employer] Address [address] [facility] 7[address] [place] [address] Care Team Providers Care Coach Operator Name Role Phone Ashley Frankel MD Primary Care Provider [phone] Hoang, November Unavailable Kishore Dorsey MD Unavailable Raheel Gee Unavailable [phone] Riya Fulton Unavailable Sergio Hackett Unavailable Unavailable Dominga Silva PharmD Unavailable Encounter Details Date Type Department Care Team (Late st Contact Info) Description 07/18/2023 Telephone [facility] [address] [place], [place] [phone] Ashley Frankel MD [address] [place], [place] [phone] Social History Tobacco Use Types Packs/Day Years [...] Bia Rose - 08/10/2023 1:42 PM EST Asp[employer] Developer called pt to request verification of insurance/Medicare Member ID# as is needed for completion of PA form. Left message requesting call back. * Telephone Encounter - Alirio Gee - 07/18/2023 3:18 PM EST Tc from pt requesting test strips needing prior authorization. documented in this encounter Plan of Treatment Upcoming Encounters Date Type Department Care Team (Late st Contact Info) Description 10/28/2024 9:00 AM EST Medication Management [facility] [address] [place] [phone] Dominga Silva, PharmD [address] [place] [address] 12/09/2024 8:00 AM EDT Office Visit [facility] [address] [place] [phone] Jackie Peacock 01/23/2025 9:45 AM EDT Office Visit [facility] [address] [place] [phone] Ashley Frankel MD [address] [place] [phone] documented as of this encounter Visit Diagnoses Not on filedocumented in this encounter Care Teams Coach Operator Relationship Specialty Start Date End Date Ashley rFankel MD [address] [place] [address] PCP - General Family Medicine 08/28/18 Viktor November [address] [place] [address] Gastroenterology 07/17/24 Kishore Dorsey MD [address] [place] [address] Urology 07/17/24 Raheel Gee [address] [place], [place] [address] Pulmonary Disease 07/17/24 Riya Fulton [address] [facility] [address] [place] [address] Cardiology 07/17/24 Sergio Hackett [address] [facility] [address] [place] [address] Orthopaedic Surgery 07/17/24 Dominga Silva PharmD [address] [place] [address] Pharmacist Internal Medicine 07/22/24 [facility] 10/10/24 documented as of this encounter
--- OUTSIDE RECORDS SUMMARY | 2024-10-24 19:25 | XMS_ITS | Encounter Summary ---
Author Organization [employer] Address [address] [place] [address], [place] [address] Care Team Providers Care Stone Trimmer Name Role Phone Ashley Frankel MD Primary Care Provider [phone] Viktor November Unavailable Kishore Dorsey MD Unavailable Raheel Gee Unavailable [phone] Riya Fulton Unavailable Segrio Hackett Unavailable Unavailable Dominga Silva PharmD Unavailable Reason for Referral * Consultation (Routine) - Authorized Specialty Diagnoses / Procedures Referred By Jeromy worrell Referred To Contact Pharmacy Diagnoses Primary hypertension Ashley Frankel MD [address] [place] [phone] Phone: tel: fax: Referral ID Status Reason Start Date Expiration Date Visits Requested Visits Authorized [id number] Authorized Continuity of Care 10/24/2024 10/24/2025 6 6 * Consultation (Routine) - Authorized Specialty Diagnoses / Procedures Referred By Jeromy worrell Referred To Contact Pharmacy Diagnoses Primary hypertension Ashley Frankel MD [address] [place] [phone] Phone: tel: fax: Referral ID Status Reason Start Date Expiration Date Visits Requested Visits Authorized [id number] Authorized Consult and Treat 10/24/2024 10/24/2025 6 6 Reason for Visit * Reason Comments follow up bp Encounter Details Date Type Department Care Team (Latest Contact Info) Description 10/24/2024 9:15 AM EST Office Visit [facility] [address] [place] [address] Ashley Frankel MD [address] [place] [address] Primary hypertension (Primary Dx); Weight loss, non-intentional; [...] Description 10/28/2024 9:00 AM EST Medication Management [facility] [address] [place] [phone] Dominga Silva, PharmD [address] [place] [address] 12/09/2024 8:00 AM EDT Office Visit [facility] ADULT [facility] [address] [place] [address] Jackie Peacock 01/23/2025 9:45 AM EDT Office Visit [facility] [address] [place] [address] Ashley Frankel MD [address] [place] [address] Scheduled Referrals Name Type Priority Associated Diagnoses Orde r Schedule Referral to Pharmacy CDTM Outpatient Referral Routine Primary hypertension Ordered: 10/24/2024 Referral to Pharmacy MTM Outpatient Referral Routine Primary hypertension Ordered: 10/24/2024 documented as of this encounter Procedures Procedure Name Priority Date/Time Associated Diagnosis Comments VITAMIN D,25-OH,TOTAL,IA Routine 10/24/2024 9:22 AM EST Weight loss, non-intentional TSH W/REFLEX TO FT4 Routine 10/24/2024 9 :22 AM EST Weight loss, non-intentional HIV 1/2 ANTIGEN/ANTIBODY, FOURTH GENERATION W/RFL Routine 10/24/2024 9:22 AM EST Weight loss, non-intentional LD Routine 10/24/2024 9:22 AM EST Weight loss, non-intentional documented in this encounter Results * HIV-1/2 Antigen and Antibodies, Fourth Generation, with Reflexes (10/24/2024 9:22 AM EST) HIV AB/AG Nonreactive Nonreactive [facility] Comment:HIV-1 p24 Ag and/or HIV-1/HIV-2 Ab not detected.A test result that is nonreactive does not exclude thepossibility of exposure to or infection with HIV-1 and/orHIV-2. Nonreactive results in this assay for individualswith prior exposure to HIV-1 and/or HIV-2 may be due toantigen and antibody levels that are below the limit ofdetection of this assay.The [employer] HIV Ag/Ab Combo assay result andsupplemental assay results should be interpreted inconjunction with the patient's clinical presentation,history and other laboratory results. If the results areinconsistent with clinical evidence, additional testing issuggested to confirm the result. Blood Venous blood specimen / Unknown 10/24/2024 9:22 AM EST 10/24/2024 11:48 AM EST us Ashley Frankel MD LAB BLOOD ORDERABLES Final Result [facility] [address] [place] [phone] * TSH W/Reflex to FT4 (10/24/2024 9:22 AM EST) TSH reflex Free T4 1.31 0.32 - 4.0 uIU/mL [facility] Blood Venous blood specimen / Unknown 10/24/2024 9:22 AM EST 10/24/2024 11:48 AM EST Ashley Frankel MD LAB BLOOD ORDERABLES Final Result Performing Organization Address City/[facility]/ZIP Co de Phone Number [facility] [address] [place] [phone] * Vitamin D, 25-Hydroxy, Total, Immunoassay (10/24/2024 9:22 AM EST) Vitamin D 25-OH Total 39.3 >30 ng/mL [facility] Comment:Health Based Referen ce Values*< 20 ng/mL Iqhopwkhd63-52 ng/mL Insufficient> 30 ng/mL Sufficient*Colleen GILL. N Engl J Med. 2007;357:266-280Care must be taken in interpreting Vitamin D results fromdifferent laboratories and methodologies. Published datademonstrated that results from patients undergoinghemodialysis may show a negative bias when tested withvarious automated 25-OH vitamin D assays when compared toLC-MS/MS.When testing samples from patients whose predominant form ofVitamin D is Vitamin D2, such as patients receiving VitaminD2 supplementation, results that are subtherapeutic shouldbe confirmed with another method such as LC-MS/MS. Blood Venous blood specimen / Unknown 10/24/2024 9:22 AM EST 10/24/2024 11:48 AM EST Ashley Frankel MD LAB BLOOD ORDERABLES Final Result Performing Organization Address [facility] Co de Phone Number [facility] [address] [place] [phone] * Lactate Dehydrogenase (LD) (10/24/2024 9:22 AM EST) Lactate Dehydrogenase 248 118 - 273 U/L [facility] Blood Venous blood specimen / Unknown 10/24/2024 9:22 AM EST 10/24/2024 11:48 AM EST Ashley Frankel MD LAB BLOOD ORDERABLES Final Result [facility] [address] [place] [phone] documented in this encounter Visit Diagnoses Diagnosis Primary hypertension- Primary Unspecified essential hypertension Weight loss, non-intentional Loss of weight 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 ([facility]/HCC) Overweight Dietary counseling Dietary surveillance and counseling Exercise counseling Dyslipidemia Other and unspecified hyperlipidemia Type 2 diabetes mellitus without complication, without long-term current use of insulin ([facility]/HCC) Pulmonary nodules Other diseases of lung, not elsewhere classified documented in this encounter Additional Health Concerns Assessment Noted Time PHQ-9 Depression Total Score: 0 07/17/20 10:33 AM EST documented as of this encounter Care Teams Stone Trimmer Relationship Specialty Start Date End Date Ashley Frankel MD [address] [place] [address] PCP - General Family Medicine 08/28/18November [address] [place] [address] Gastroenterology 07/17/24 Kishore Dorsey MD [address] [place] [address] Urology 07/17/24 Raheel Gee 5 [place], [place] [address] Pulmonary Disease 07/17/24 Riya Fulton [address] [place] [address] Cardiology 07/17/24 Sergio Hackett [facility] [address] [place] [address] Orthopaedic Surgery 07/17/24 Dominga Silva, Mehrdad [address] [place] [address] Pharmacist Internal Medicine 07/22/24 [facility] 10/10/24 documented as of this encounter
--- OUTSIDE RECORDS SUMMARY | 2024-10-24 19:25 | XMS_ITS | Encounter Summary ---
Author Organization [employer] Address [address] [place] [address] [address] [place] [address] Care Team Providers Care Recreation Teacher Name Role Phone Ashley Frankel MD Primary Care Provider [phone] Hoang, November Unavailable Kishore Dorsey MD Unavailable [phone] Raheel Gee Unavailable [phone] Riya Fulton Unavailable Sergio Hackett Unavailable Unavailable Dominga Silva PharmD Unavailable Reason for Visit * Reason Onset Date Comments Nurse Triage 10/07/2024 Encounter Details Date Type Department Care Team (Late st Contact Info) Description 10/07/[address] [facility] [address] [place] [address] Ashley Frankel MD [address] [place], [place] [phone] Nurse Triage Social History Tobacco Use Types [...] the past 12 months, has t he [employer] gas, oil or [employer] threatened to shut off services in your [...] program as needed. Patient will call of [facility] to obtain follow up appt. Reviewed with [...] caller accepted this outcome. Contact pt at [phone] documented in this encounter Plan of Treatment Upcoming Encounters Date Type Department Care Team (Late st Contact Info) Description 10/28/2024 9:00 AM EST Medication Management [facility] [address] [place] [phone] Dominga Silva, PharmD [address] [place] [phone] 12/09/2024 8:00 AM EDT Office Visit [facility] [address] [place] [phone] Jackie Peacock 01/23/2025 9:45 AM EDT Office Visit [facility] [address] [place] [phone] Ashley Frankel MD [address] [place] [phone] documented as of this encounter Visit Diagnoses Not on filedocumented in this encounter Additional Health Concerns Assessment Noted Time PHQ-9 Depression Total Score: 0 07/17/20 24 10:33 AM EST documented as of this encounter Care Teams Recreation Teacher Relationship Specialty Start Date End Date Ashley Frankel MD [address] [place] [phone] PCP - General Family Medicine 08/28/18 Sonya Hoang [address] [place] [address] Gastroenterology 07/17/24 Kishore Dorsey MD [address] [place] [address] Urology 07/17/24 Raheel Gee [address] [place], [place] [address] Pulmonary Disease 07/17/24 Riya Fulton [address] [place] [address] Cardiology 07/17/24 Sergio Hackett [address] [facility] [address] [address]nd [place] [address] Orthopaedic Surgery 07/17/24 Dominga Silva, Mehrdad [address] [place] [address] Pharmacist Internal Medicine 07/22/24 documented as of this encounter
--- OUTSIDE RECORDS SUMMARY | 2024-10-24 19:25 | XMS_ITS | Encounter Summary ---
Author Organization [employer] Address [address] [facility] [address] [place] [address] Care Team Providers Care Senior Director Creative Services Name Role Phone Ashley Frankel MD Primary Care Provider [phone] November Unavailable Kishore Dorsey MD Unavailable [phone] Raheel Gee Unavailable [phone] Riya Fulton Unavailable Sergio Hackett Unavailable Unavailable Dominga SilvaD Unavailable Reason for Visit * Reason Onset Date Comments Results 09/30/2024 Encounter Details Date Type Department Care Team (Late st Contact Info) Description 09/30/2024 Telephone [facility] [address] [place], [place] [id number] Aurora Alexandre, RN Results Social History Tobacco [...] by Dr. Mac on 09/27/2024 at the [facility] for lower back pain and concentrated urine. Pt still confirms right lower back pain. No fever or blood noted in the urine. Pt was advised per PCP recommendation to be assessed further in the ED due to these findings. Pt confirms that he will present to [facility] ED today. ----- Message from Ashley Frankel [...] Description 10/28/2024 9:00 AM EST Medication Management [facility] [address] [place] [address] Dominga Silva PharmD [address] [place] [address] 12/09/2024 8:00 AM EDT Office Visit [facility] [address] [place] [phone] Jackie Peacock 01/23/2025 9:45 AM EDT Office Visit [facility] [address] [place] [address] Ashley Frankel MD [address] [place] [phone] documented as of this encounter Visit Diagnoses Not on filedocumented in this encounter Additional Health Concerns Assessment Noted Time PHQ-9 Depression Total Score: 0 07/17/20 10:33 AM EST documented as of this encounter Care Teams Senior Director Creative Services Relationship Specialty Start Date End Date Ashley Frankel MD [address] [place] [phone] PCP - General Family Medicine 08/28/18HoangNovember 11 [facility] [address] [place] [address] Gastroenterology 07/17/24 Kishore Dorsey MD [address] [place] [address] Urology 07/17/24 Raheel Gee [address] [place] [address] Pulmonary Disease 07/17/24 Riya Fulton 11 [facility] [address] [place] [address] Cardiology 07/17/24 Sergio Hackett [address] [place] [address] Orthopaedic Surgery 07/17/24 Dominga Silva, AnanthD [address] [place] [phone] Pharmacist Internal Medicine 07/22/24 documented as of this encounter
--- OUTSIDE RECORDS SUMMARY | 2024-10-24 19:25 | XMS_ITS | Clinical Summary ---
Author Organization 175 [facility] Address [address] [place] [address] Phone Care Team Providers Care Net Developer With [employer] Name Role Phone Ashley Frankel MD Primary Care Provider [phone] Allergies Active Allergy Reactions Criticality Noted Date [...] AM EST - 10/12/2024 9:39 AM EST [facility] [address] [place] [address] Smith Quan MD Urinary tract infection with [...] 10:45 AM EDT Consult Orthopedic Surgery - [place] [address] [address] [facility] [address] [place] [phone] Raheel Slater DPM [address] [address] Health Maintenance Due Date Last Done Comments [...] PM EST) WBC 7.7 4.8 - 10.8 /[facility] LAB HEMETOLOGY METHOD 10/12/2024 12:01 AM [facility] RBC 4.60 4.50 - 5.50 M/mcL LAB HEMETOLOGY METHOD 10/12/2024 12:01 AM [facility] Hemoglobin 14.1 13.5 - 17.5 g/dL LAB HEMETOLOGY METHOD 10/12/2024 12:01 AM [facility] Hematocrit 42.7 42.0 - 54.0 % LAB HEMETOLOGY METHOD 10/12/2024 12:01 AM [facility] MCV 92.2 79.0 - 98.0 FL LAB HEMETOLOGY METHOD 10/12/2024 12:01 AM [facility] LAB MCH 30.5 27.0 - 32.0 pcg LAB HEMETOLOGY METHOD 10/12/2024 12:01 AM [facility] MCHC 33.0 32.0 - 37.0 g/dL LAB HEMETOLOGY METHOD 10/12/2024 12:01 AM [facility] RDW 12.8 11.0 - 15.0 % LAB HEMETOLOGY METHOD 10/12/2024 12:01 AM [facility] Platelets 327 130 - 400 K/[facility] LAB HEMETOLOGY METHOD 10/12/2024 12:01 AM [facility] MPV 10.4 7.0 - 11.0 FL LAB HEMETOLOGY METHOD 10/12/2024 12:01 AM [facility] NRBC 0.0 <1.0 % LAB HEMETOLOGY METHOD 10/12/2024 12:01 AM [facility] LAB NRBC Absolute 0.00 <0.10 K/mcL LAB HEMETOLOGY METHOD 10/12/2024 12:01 AM [facility] Neutrophils Relative 66.8 % LAB HEMETOLOGY METHOD 10/12/2024 12:01 AM [facility] Lymphocytes Relative 21.5 % LAB HEMETOLOGY METHOD 10/12/2024 12:01 AM [facility] Monocytes Relative 9.6 % LAB HEMETOLOGY METHOD 10/12/2024 12:01 AM [facility] Eosinophils Relative 1.2 % LAB HEMETOLOGY METHOD 10/12/2024 12:01 AM [facility] Basophils Relative 0.4 % LAB HEMETOLOGY METHOD 10/12/2024 12:01 AM [facility] Immature Granulocytes Relative 0.5 % LAB HEMETOLOGY METHOD 10/12/2024 12:01 AM [facility] Neutrophils Absolute 5.12 1.50 - 7.00 K/mcL LAB HEMETOLOGY METHOD 10/12/2024 12:01 AM [facility] Lymphocytes Absolute 1.65 1.00 - 5.00 K/mcL LAB HEMETOLOGY METHOD 10/12/2024 12:01 AM [facility] Monocytes Absolute 0.74 0.20 - 1.00 K/mcL LAB HEMETOLOGY METHOD 10/12/2024 12:01 AM [facility] Eosinophils Absolute 0.09 0.00 - 0.50 K/mcL LAB HEMETOLOGY METHOD 10/12/2024 12:01 AM [facility] Basophils Absolute 0.03 0.00 - 0.20 K/mcL LAB HEMETOLOGY METHOD 10/12/2024 12:01 AM [facility] LAB Immature Granulocytes Absolute 0.04(H) 0.00 - 0.03 K/mcL LAB HEMETOLOGY METHOD 10/12/2024 12:01 AM [facility] Blood Venous blood specimen / Unknown Venipuncture / Unknown 10/11/2024 11:18 PM EST 10/11/2024 11:44 PM EST us Smith Quan MD LAB BLOOD ORDERABLES Final Result [facility] [address] [place] [address], * (ABNORMAL) Comprehensive metabolic panel (10/11/2024 11:18 PM EST) Sodium 138 133 - 145 mmol/L LAB CHEMISTRY METHOD 10/12/2024 12:38 AM [facility] Potassium 4.3 3.5 - 5.5 mmol/L LAB CHEMISTRY METHOD 10/12/2024 12:38 AM [facility] Chloride 107 96 - 110 mmol/L LAB CHEMISTRY METHOD 10/12/2024 12:38 AM [facility] CO2 30 21 - 32 mmol/L LAB CHEMISTRY METHOD 10/12/2024 12:38 AM [facility] Anion Gap 1(L) 3 - 11 LAB CHEMISTRY METHOD 10/12/2024 12:38 AM [facility] Glucose 126(H) 70 - 100 mg/dL LAB CHEMISTRY METHOD 10/12/2024 12:38 AM [facility] BUN 15 5 - 25 mg/dL LAB CHEMISTRY METHOD 10/12/2024 12:38 AM [facility] Creatinine 1.15 0.70 - 1.30 mg/dL LAB CHEMISTRY METHOD 10/12/2024 12:38 AM [facility] LAB eGFR 73 >=60 mL/min/1. 73m2 LAB CHEMISTRY METHOD 10/12/2024 12:38 AM [facility] Comment:Calculation based on the??Chronic Kidney Disease Epidemiology Collaboration (CKD-EPI) equation refit??without adjustment for race. BUN/Creatinine Ratio 13.0 LAB CHEMISTRY METHOD 10/12/2024 12:38 AM [facility] Calcium 9.8 8.5 - 10.5 mg/dL LAB CHEMISTRY METHOD 10/12/2024 12:38 AM [facility] AST (SGOT) 24 10 - 42 unit/L LAB CHEMISTRY METHOD 10/12/2024 12:38 AM [facility] ALT (SGPT) 22 10 - 60 unit/L LAB CHEMISTRY METHOD 10/12/2024 12:38 AM [facility] Alkaline Phosphatase 100 42 - 121 unit/L LAB CHEMISTRY METHOD 10/12/2024 12:38 AM [facility] Total Protein 6.9 6.0 - 8.0 g/dL LAB CHEMISTRY METHOD 10/12/2024 12:38 AM [facility] Albumin 3.9 3.2 - 5.0 g/dL LAB CHEMISTRY METHOD 10/12/2024 12:38 AM [facility] Total Bilirubin 0.6 0.0 - 1.4 mg/dL LAB CHEMISTRY METHOD 10/12/2024 12:38 AM [facility] Blood Venous blood specimen / Unknown Venipuncture / Unknown 10/11/2024 11:18 PM EST 10/11/2024 11:44 PM EST us Smith Quan MD LAB BLOOD ORDERABLES Final Result [facility] [address] [place] [address], * (ABNORMAL) Urinalysis with reflex microscopic and culture (10/11/2024 10:34 PM EST) Specific [place] Urine 1.014 1.003 - 1.030 LAB URINALYSIS - AUTOMATED METHOD 10/12/2024 6:50 AM [facility] pH, Urine 5.5 5.0 - 8.0 pH LAB URINALYSIS - AUTOMATED METHOD 10/12/2024 6:50 AM [facility] Leukocytes, Urine Moderate(A) Negative LAB URINALYSIS - AUTOMATED METHOD 10/12/2024 6:50 AM [facility] Nitrite, Urine Positive(A) Negative LAB URINALYSIS - AUTOMATED METHOD 10/12/2024 6:50 AM [facility] Protein, Urine 300(A) <=Trace mg/dL LAB URINALYSIS - AUTOMATED METHOD 10/12/2024 6:50 AM [facility] Glucose, Urine Negative Negative mg/dL LAB URINALYSIS - AUTOMATED METHOD 10/12/2024 6:50 AM [facility] Ketones, Urine Negative Negative mg/dL LAB URINALYSIS - AUTOMATED METHOD 10/12/2024 6:50 AM [facility] Urobilinogen, Urine 1.0 0.2 - 1.0 mg/dL LAB URINALYSIS - AUTOMATED METHOD 10/12/2024 6:50 AM [facility] Bilirubin, Urine Small(A) Negative LAB URINALYSIS - AUTOMATED METHOD 10/12/2024 6:50 AM [facility] Blood, Urine Large(A) Negative LAB URINALYSIS - AUTOMATED METHOD 10/12/2024 6:50 AM [facility] RBC, Urine 1,724.4(H) 0 - 4 /HPF LAB URINALYSIS - AUTOMATED METHOD 10/12/2024 6:50 AM [facility] Comment:This is an appended report. These results have been appended to a previously preliminary verified report. WBC, Urine 48.9(H) 0 - 4 /HPF LAB URINALYSIS - AUTOMATED METHOD 10/12/2024 6:50 AM [facility] Comment:This is an appended report. These results have been appended to a previously preliminary verified report. Squamous Epithelial, Urine >100(H) 0 - 60 /LPF LAB URINALYSIS - AUTOMATED METHOD 10/12/2024 6:50 AM [facility] Comment:This is an appended report. These results have been appended to a previously preliminary verified report. Crystals, Urine LT CALCIUM OXALATE /LPF LAB URINALYSIS - AUTOMATED METHOD 10/12/2024 6:50 AM EST [facility] Comment:Corrected result: Pr eviously reported on 10/11/2024 at 2351 EST. Bacteria, Urine Negative Negative /HPF LAB URINALYSIS - AUTOMATED METHOD 10/12/2024 6:50 AM [facility] Comment: Edited result: Previously reported as Negative /HPF on 10/11/2024 at 2351 EST. This is an appended report. ??These results have been appended to a previously final verified report. Hyaline Casts, Urine 13.6(H) 0 - 3 /LPF LAB URINALYSIS - AUTOMATED METHOD 10/12/2024 6:50 AM EST [facility] Comment:This is an appended report. These results have been appended to a previously preliminary verified report. Urine Urine specimen obtained by clean catch procedure / Unknown Non-blood Collection / Unknown 10/11/2024 10:34 PM EST 10/11/2024 11:07 PM EST Smith Quan MD LAB URINE ORDERABLES Edited Result - Final Performing Organization Address [facility]/ZIP Co de Phone Number [facility] [address] [place] [address], [place] [phone] * [place] urine culture tube (10/11/2024 10:34 PM EST) Extra Tube Hold for add-ons. 10/12/2024 1:11 AM EST [facility] Comment:Auto resulted. Urine Urine specimen obtained by clean catch procedure / Unknown Non-blood Collection / Unknown 10/11/2024 10:34 PM EST 10/11/2024 11:07 PM EST Smith Quan MD LAB URINE ORDERABLES Final Result Performing Organization Address [facility]/ZIP Co de Phone Number [facility] [address] [place] [address], [place] [phone] * Culture urine (10/11/2024 10:34 PM EST) Culture, Urine No growth 10/13/2024 10:54 AM EST [facility] Urine Urine specimen obtained by clean catch procedure / Unknown Non-blood Collection / Unknown 10/11/2024 10:34 PM EST 10/11/2024 11:52 PM EST us Smith Quan MD LAB MICROBIOLOGY - GENERAL ORDERABLES Final Result [facility] [address] [place] [address], [place] [phone] from Last 3 Months Insurance , [address] [address] [facility] MEDICARE Member Subscriber Plan / Payer (Ef fective 2023-Present) Name:Bobby Velasco Relation to Subscriber:Self Name:Bobby Velasco Payer ID:[id number] Group ID:[id number] Type:Not on file Address: [place] [address] [address] [place] [address] Care Teams Net Developer [employer] Relationship Specialty Start Date End Date [place], [place] Ashley [address] [place] [id number] PCP - General Family Medicine 08/09/24
--- OUTSIDE RECORDS SUMMARY | 2024-10-24 19:25 | XMS_ITS | Clinical Summary ---
Author Organization [facility] Address [address] [place] [address] 7 [place] [address] Care Team Providers Care Machine Lacer Name Role Phone Ashley Frankel MD Primary Care Provider [phone] November Unavailable Kishore Dorsey MD Unavailable Raheel Gee Unavailable [phone] Riya Fulton Unavailable Sergio Hackett Unavailable Unavailable Dominga Silva PharmD Unavailable Allergies Active Allergy Reactions Criticality Noted Date Comments Amoxicillin 08/01/2022 Clindamycin Anaphylaxis High 03/29/2012 Doxycycline Diarrhea Low 01/31/2023 Penicillins Anaphylaxis High 04/06/2012 Other reaction(s): UNKNOWN REACTION-CHILDHOOD Medications fluticasone (Flonase) 50 MCG/ACT nasal sprayIndication s:Allergic rhinitis, unspecified seasonality, unspecified trigger 2 SPRAY INTRANASALLY DAILY 16 g 3 023 Active albuterol 108 (90 Base) MCG/ACT inhalerIndicati ons:Mild intermittent asthma without complication INHALE 2 PUFFS BY MOUTH EVERY 4 HOURS NEEDED FOR SHORTNESS OF BREATH 18 g 1 024 Active tadalafil (Cialis) 10 MG tabletIndicatio ns:Erectile dysfunction, unspecified erectile dysfunction type 10 mg. 024 Active terazosin (Hytrin) 5 MG capsuleIndicati ons:Benign prostatic hyperplasia with lower urinary tract symptoms, symptom details unspecified 5 mg. 01/24/2 024 Active amLODIPine (Norvasc) 10 MG tabletIndicatio ns:Primary hypertension Take 1 tab po daily 90 tablet 3 Active chlorthalidone (Hygroton) 25 MG tabletIndicatio ns:Primary hypertension Take 1 tab po daily 90 tablet 3 024 Active FreeStyle lancetsIndicati ons:Type 2 diabetes mellitus without complication, without long-term current use of insulin (CMS/[facility]) 1 each by Other route 2 times daily. Use bid, dx type 2 diabetes 60 each Active glucose blood (FREESTYLE LITE) test stripIndication s:Type 2 diabetes mellitus without complication, without long-term current use of insulin (CMS/HCC) USE TO TEST BLOOD SUGAR TWICE A DAY 100 strip Active cetirizine (ZyrTEC) 10 MG tabletIndicatio ns:Allergic rhinitis, unspecified seasonality, unspecified trigger TAKE 1 TABLET BY MOUTH EVERY DAY NEEDED 90 tablet 025 Active famotidine (Pepcid) 40 MG tabletIndicatio ns:Gastroesopha geal reflux disease, unspecified whether esophagitis present TAKE 1 TABLET BY MOUTH EVERY DAY NEEDED FOR FOR HEARTBURN Active traZODone (Desyrel) 50 MG tabletIndicatio ns:Anxiety 50 mg. 024 Active hydrOXYzine HCl (Atarax) 25 MG tabletIndicatio ns:Anxiety Take by mouth. Acti ve atorvastatin (Lipitor) 80 MG tabletIndicatio ns:Dyslipidemia Take 1 tablet (80 mg) by mouth Once per day. 90 tablet 3 025 Active lisinopril 40 MG tabletIndicatio ns:Primary hypertension Take 1 tab po qhs 90 tablet 3 025 Active lisinopril 40 MG tabletIndicatio ns:Primary hypertension Take 1 tab po daily 90 tablet 3 024 2024 Discontinued(R eorder (will not trigger notification to Pharmacy)) atorvastatin (Lipitor) 80 MG tablet Take 1 tablet (80 mg) by mouth Once per day. 90 tablet 3 024 2024 Discontinued(M ed list cleanup (will not trigger notification to Pharmacy)) Blood Pressure kitIndications: Primary hypertension USE DIRECTED 1 kit 2024 Discontinued(M ed list cleanup (will not trigger notification to Pharmacy)) meclizine (Antivert) 25 MG tablet 2024 Discontinued(M ed list cleanup (will not trigger notification to Pharmacy)) hydrOXYzine HCl (Atarax) 25 MG tablet TAKE 1-2 TABLETS BY MOUTH TWICE A DAY NEEDED FOR ANXIETY OR AT NIGHT FOR SLEEP 2024 Discontinued(M ed list cleanup (will not trigger notification to Pharmacy)) traZODone (Desyrel) 50 MG tablet TAKE 1 TABLET BY MOUTH EVERY NIGHT AT BEDTIME NEEDED 1 TABLET NEEDED FOR SLEEP 2024 Discontinued(M ed list cleanup (will not trigger notification to Pharmacy)) tamsulosin (Flomax) 0.4 MG 24 hr capsule Take 1 capsule (0.4 mg) by mouth Once per day. 30 capsule 2024 Discontinued(M ed list cleanup (will not trigger notification to Pharmacy)) traMADol (Ultram) 50 MG tabletIndicatio ns:Acute bilateral low back pain without sciatica Take 1 tablet (50 mg) by mouth if needed in the morning, at noon, and at bedtime for severe pain or moderate pain for up to 5 days. Take 1/2 to 1 tab po TID prn pain 15 tablet 2024 polyethylene glycol, PEG, 3350 (MiraLax) 17 GM/SCOOP powder Take 17 g by mouth Once per day. 527 g 2 2024 Discontinued(M ed list cleanup (will not trigger notification to Pharmacy)) atorvastatin (Lipitor) 80 MG tabletIndicatio ns:Dyslipidemia 80 mg. 2024 Discontinued(R eorder (will not trigger notification to Pharmacy)) tamsulosin (Flomax) 0.4 MG 24 hr capsuleIndicati ons:Benign prostatic hyperplasia with urinary obstruction 0.4 mg. 025 2024 Discontinued(M ed list cleanup (will not trigger notification to Pharmacy)) cefuroxime (Ceftin) 500 MG tabletIndicatio ns:Dysuria Take 1 tablet by mouth 2 times daily. 025 2024 Discontinued(M ed list cleanup (will not trigger notification to Pharmacy)) Active Problems Patient Care Coordination No te Formatting of this note migh t be different from the original. [facility] Dock Operator: Kamila, member services number [phone], provider services line, , option 4 [employer]: refused services Problem Noted Date Diagnosed Date Overweight 10/24/2024 Overview (10/24/2024): Discussed weight, diet, exercise with patient in relation to health conditions. Used motivational interviewing to illicit change talk and established initial goals with patient. Assessment & Plan (10/24/2024 8:59 AM EST): Discussed weight, diet, exercise with patient in relation to health conditions. Used motivational interviewing to illicit change talk and established initial goals with patient. Dietary counseling 10/24/2024 Assessment & Plan (10/24/2024 9:00 AM EST): Dietary Recommendations: Fruits, vegetables, whole grains, protein foods, and fat-free or low-fat dairy products are healthy choices. Eat different types of protein foods in your diet. This can include seafood, lean meats, poultry, beans, peas, lentils, nuts, seeds, soy products, and eggs. Limit foods and beverages higher in added sugars, saturated fat, and sodium. Weight loss, non-intentional 10/24/2024 Overview (10/24/2024): Baseline weight 2023 190 lbs until 06/2024 when weight started to drop Weight 10/24/23: 171 lbs Reports unknown weight loss over the past couple months. Denies fatigue, fevers, lymphadenopathy or recent illness. -colonoscopy normal 04/06/23 -CXR normal 08/2024 -CT abd 10/22 with not pathology that would be concern for weight loss -ordered lactate dehydrogenase, Vit D, TSH, and HIV 10/24/24 Assessment & Plan (10/24/2024 9:38 AM EST): Baseline weight 2023 190 lbs until 06/2024 when weight started to drop Weight 10/24/23: 171 lbs Reports unknown weight loss over the past couple months. Denies fatigue, fevers, lymphadenopathy or recent illness. -colonoscopy normal 04/06/23 -CXR normal 08/2024 -CT abd 10/22 with not pathology that would be concern for weight loss -ordered lactate dehydrogenase, Vit D, TSH, and HIV 10/24/24 Renal calculi 09/30/2024 Overview (10/01/2024): US 09/27/24 Impression: Moderate to severe right hydronephrosis with 9 mm stone distal right ureter. No additional stones evident on either side. Bladder volumes as above. Bladder diverticula noted. Enlarged prostate. -pt admitted and underwent cystoscopy with Dr. 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 New found mass on left episcopalian. - Referred to Plastic Surgery 07/16/24 Assessment & Plan (07/17/2024 10:23 AM EST): Removal 2021. New found mass on left episcopalian. - Referred to Plastic Surgery 07/16/24 Cardiac [...] sciatica 0 03/05/2024 Ankylosis of spine 12/20/2023 Chronic low back pain with [...] Nasal polyps 04/27/2023 Pulmonary nodules 04/27/2023 Overview (10/24/2024): Chest CT on 07/29/2019 showed a focal [...] and due for repeat CT May 2021 -[facility] follow up in November 2023 Assessment & [...] due after 07/17/25 -eye care facilitated by [facility] -dental home is [facility] -health care proxy paperwork given 11/13/2023, given again 07/17/24 Assessment & Plan (07/17/2024 10:32 AM EST): -next physical exam due after 07/17/25 -eye care facilitated by [facility] -dental home is [facility] -health care proxy paperwork given 11/13/2023, given again 07/17/24 Assessment & Plan (11/13/2023 10:07 AM EDT): -next physical exam due after 04/27/2024 -eye care facilitated by [facility] -dental home is [facility] -health care proxy paperwork given 11/13/2023 Assessment & Plan (04/27/2023 9:45 AM EDT): -next physical exam due after 04/27/2024. -eye care facilitated by [facility], last visit 01/16/2023 -dental home is [facility] Class 1 obesity 02/24/2023 Erectile dysfunction 11/09/2022 GERD (gastroesophageal reflux disease) [...] . Will rescheduled Colonoscopy. Dyslipidemia 11/07/2022 Overview (10/24/2024): Lab Results Component Value Date CHOL 146 08/13/2024 CHOL 185 07/17/2024 CHOL 183 06/29/2023 TRIG 86 08/13/2024 TRIG 79 07/17/2024 TRIG 65 06/29/2023 TRIG 95 11/11/2022 HDL 33 (L) 08/13/2024 HDL 60 07/17/2024 HDL 59 06/29/2023 LDLCHOLCAL 96 08/13/2024 LDLCHOLCAL 110 (H) 07/17/2024 LDLCHOLCAL 111 (H) 06/29/2023 -continue lifestyle modifications -Atorvastatin 80mg (dose increased 06/2024) -continue medication above. Assessment & Plan (10/24/2024 9:09 AM EST): Lab Results Component Value Date CHOL 146 08/13/2024 CHOL 185 07/17/2024 CHOL 183 06/29/2023 TRIG 86 08/13/2024 TRIG 79 07/17/2024 TRIG 65 06/29/2023 TRIG 95 11/11/2022 HDL 33 (L) 08/13/2024 HDL 60 07/17/2024 HDL 59 06/29/2023 LDLCHOLCAL 96 08/13/2024 LDLCHOLCAL 110 (H) 07/17/2024 LDLCHOLCAL 111 (H) 06/29/2023 -continue lifestyle modifications -Atorvastatin 80mg (dose increased 06/2024) -continue medication above. Assessment & Plan (07/17/2024 10:23 AM EST): [...] the strong evidence that these meds prevent [place]/CVA. Continue atorvastatin 80qhs. Encouraged to take. Anxiety [...] CT May 2021 -CT 01/24/24 ordered by clothing room supervisor Dr. Raheel Gee MD, redemonstration of innumerable [...] getting tx for his neck. -Followed by [facility]. -Saw Dr. Evin Bhat at [facility] 02/2021 -referred to orthopedic on 11/13/2023 - [...] getting tx for his neck. -Followed by [facility]. -Saw Dr. Evin Bhat at [facility] 02/2021 -referred to orthopedic on 11/13/2023 - [...] getting tx for his neck. -Followed by [facility]. -Saw Dr. Evin Bhat at [facility] 02/2021 -referred to orthopedic on 11/13/2023 Assessment [...] getting tx for his neck. Followed by [facility]. Saw Dr. Evin Bhat at [facility] 02/2021 Assessment & Plan (04/27/2023 9:22 AM [...] getting tx for his neck. Followed by [facility]. Saw Dr. Evin Bhat at [facility] 02/2021 Assessment & Plan (11/07/2022 11:31 AM [...] getting tx for his neck. Followed by [facility]. Saw Dr. Evin Bhat at [facility] 02/2021 Mild intermittent asthma 10/14/2021 Overview (08/21/2024): -Followed by Dr. Raheel Gee at [facility]. Note from 08/19/24 reviewed -Well [...] (11/09/2022 11:15 AM EDT): Hypertension 10/03/2012 Overview (10/24/2024): -Blood pressure is not at goal -Continue [...] (was taking all at night) and continue to check home BP 10/24/24 Assessment & Plan (10/24/2024 9:40 AM EST): -Blood pressure is not at [...] (was taking all at night) and continue to check home BP 10/24/24 Assessment & Plan (07/17/2024 10:27 AM EST): [...] mellitus type 2, uncomplicated 09/28/19 13 Overview (10/24/2024): Diabetes is controlled on diet and exercise alone. Lab Results Component Value Date HGBA1C 6.2 (H) 08/13/2024 HGBA1C 6.1 (H) 07/17/2024 HGBA1C 6.3 (A) 07/17/2024 Lab Results Component Value Date CREATININE 1.02 10/10/2024 EGFR >60 10/10/2024 MICROALBCREU 17.6 08/13/2024 MICROALBCREU 28.4 07/17/2024 LDLCHOLCAL 96 08/13/2024 -Changes: none -Ry/Arb: lisinopril 40 -Statin therapy: [...] Problem Noted Date Diagnosed Date Resolved Date Exercise counseling 10/24/2024 10/24/19 Assessment & Plan (10/24/2024 9:00 AM EST): Exercise Recommendations: At least 150 minutes of moderate-intensity physical activity per week, or an equivalent combination of moderate- and vigorous-intensity activity Dysuria 10/10/2024 10/24/2024 Assessment & Plan (10/10/2024 1:40 PM EST): Sees Dr. Dorsey with Urology and seen last in 08/2024. Hospitalized 10/01/24 for Right ureteral stone right hydronephrosis underwent Cystoscopy, right retrograde, right ureteroscopy laser lithotripsy stent insertion, 6 Kyr[place] by [address] Mayda Rodriguez. Prescribed dilaudid, senna and phenazopyridine. Seen in the ER last night and was prescribed cephalexin 500mg, that he filled on 10/07/24, but has only taken one tablet. -encouraged to complete cephalexin and contact Urologist for scheduled follow- up. Other microscopic hematuria 09/27/2024 10/24/2024 Assessment & Plan (09/27/2024 11:31 AM EST): [...] after renal ultrasound or within 1 month. Abnormal CXR 08/15/2024 10/24/2024 Overview (10/24/2024): -CXR in ER 08/15/24 Small apparent opacity in the right lateral mid lung field. This is nonspecific and may be projectional, however, a developing infiltrate cannot be excluded. Diffuse idiopathic skeletal hyperostosis of cervicothoracic spine 12/20/2023 10/24/2024 Abnormal stress test 10/02/2023 10/02/2023 024 Nocturia [...] to be consider brain MRI w contrast Lower abdominal pain 02/07/2023 025 Assessment & Plan (03/13/2023 10:05 PM EDT): [...] and no other pathology ---NEETU today - L.A to request records of [...] returns would do CT image of abd/Pelvis High cholesterol 09/26/2013 04/27/2023 Encounters Date Type Department Care Team Description 10/24/2024 9:15 AM EST Office Visit [address] [phone] Ashley Frankel MD Primary hypertension (Primary Dx); Weight loss, non-intentional; 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 ([facility]); Overweight; Dietary counseling; Exercise counseling; Dyslipidemia; Type 2 diabetes mellitus without complication, without long-term current use of insulin ([facility]); Pulmonary nodules 10/24/2024 Orders Only [facility] External Provider, [facility] 10/24/2024 Travel 10/17/2024 Telephone [facility] [address] [place] [phone] Ashley Frankel MD 10/17/[address] [address] Ashley Frankel MD chartprep 10/10/2024 1:40 PM EST Office Visit [facility] [address] [address] Ashley Frankel MD Dysuria (Primary Dx); Dyslipidemia; Gastroesophageal reflux disease, unspecified whether esophagitis present; Benign prostatic hyperplasia with urinary obstruction; Anxiety 10/10/2024 Telephone [facility] [address] [place] [phone] Ashley Frankel MD 10/10/2024 Orders Only GENERIC EXTERNAL DATA DEPARTMENT Provider, Generic External Data 10/07/[address] [phone] Ashley Frankel MD Nurse Triage 09/30/[address] [address] Aurora Alexandre, RN Results 09/30/2024 Orders Only [address] [address] Ashley Frankel MD Renal calculi (Primary Dx); Hydronephrosis, unspecified hydronephrosis type 09/28/2024 11:00 AM EST [facility] [address] [address] Les Hay MD Constipation, unspecified constipation type (Primary Dx); Primary hypertension 09/28/2024 Travel 09/27/2024 11:00 AM EST Office Visit [address] [address] Malika Mac MD Other microscopic hematuria (Primary Dx); Acute bilateral low back pain without sciatica 09/27/[address] [address] Ashley Frankel MD Nurse Triage 09/18/[address] [address] Nisha Smith MD Allergic rhinitis, unspecified seasonality, unspecified trigger 09/17/[address] [address] Ashley Frankel MD 09/09/2024 Orders Only [facility] External Provider, [facility] Renal calculi (Primary Dx) 08/26/[address] [address] Ashley Frankel MD 08/14/2024 Orders Only GENERIC EXTERNAL DATA DEPARTMENT Provider, Generic External Data Abnormal CXR (Primary Dx) 08/13/2024 Orders Only GENERIC EXTERNAL DATA DEPARTMENT Provider, Generic External Data 08/12/2024 Travel 08/09/2024 8:30 AM EST Office Visit [facility] [address] [place] [phone] Naida Yates, DDS Teeth missing (Primary Dx) 08/05/2024 Telephone [facility] [address] [facility] [place] [address] Charles Kala, NEETU September Recall 08/05/2024 Telephone [facility] [address] [facility] [address] [address] Ashley Frankel MD Appointment Request 08/01/2024 9:30 AM EST Office Visit [facility] [address] [facility] [place] [phone] Naida Yates, DDS Teeth missing (Primary Dx) 07/24/2024 Telephone [facility] [address] [facility] [address] [place] [phone] Ashley Frankel MD from Last 3 Months Immunizations Name Administration Dates Next Due Hep B, adult 05/14/2015,02/26/2014,09/26/2013 Influenza injectable quadriv alent IIV4 with preservative 05/18/2018,05/31/2017,05/25/2016 Influenza injectable quadriv alent preservative free 05/30/2019,05/14/2015 Influenza, IIV3, injectable 06/04/2014,1 ,05/19/2010,09/24,06/30/2006,09/16/2005 Influenza, Split (incl. marilynn fied surface antigen) 09/26/2013,06/04/2012 Pneumococcal Polysaccharide PPSV23 05/14/2015, TD (adult), 2 Lf tetanus tox oid, preservative free, adsorbed 01/10/2006 Tdap 12/23/2019,06/04/2012 Family History Medical History Relation Name Comments Hypertension Brother Diabetes Father Hypertension Father Hyperlipidemia Mother Hypertension Mother Relation Name Status Comments Brother Father Mother Social History Tobacco Use Types Packs/Day Years [...] Mass Index 26.88 10/24/2024 8:51 AM EST Plan of Treatment Upcoming Encounters Date Type Department Care Team (Late st Contact Info) Description 10/28/2024 9:00 AM EST Medication Management [facility] [address] [place] [address] Dominga Silva, PharmD [address] [place], [place] [phone] 12/09/2024 8:00 AM EDT Office Visit [facility] [address] [place] [address] Jackie Peacock 01/23/2025 9:45 AM EDT Office Visit [facility] [address] [place] [address] Ashley Frankel MD [address] [place] [address] Health Maintenance Due Date Last Done Comments [...] SDOH Screening 11/01/2024 11/02/2023 Diabetes: Hemoglobin A1C 11/11/2024 024, 07/17/2024, 07/17/2024, Additional history exists Influenza Vaccine (#1) 2025 9, 05/18/2018, 05/31/2017, Additional history exists Postponed from 04/28/2024 (Patient Refused) Dental X-Ray: Bitewings 05/04/2025 05/03/2024, 10/24 Eye Exam 06/19/2025 06/19/2024, 05/29, 06/19/2024, Additional history exists COVID-19 Vaccine ( - season) 2025 Postponed from 04/28/2024 (Patient Refused) Depression Screening 07/17/2025 07/17/2024, 07/17/20 24 Diabetes: Foot Exam 07/17/2025 07/17/2024, 07/17/2024, 07/17/2024, Additional history exists Diabetes: Urine Protein Screening 08/13/2025 08/13/2024, 07/17/2024, 06/29/2023, Additional history exists Lipid Panel 08/13/2025 08/13/2024, 06/29, 06/29/2023, Additional history exists Tobacco Screening 10/10/2025 10/10/2024 Alcohol/Substance Use Screening 10/24/2025 10/24/2024 DTaP/Tdap/Td Vaccines (3 - Td or Tdap) 12/22/2029 12/23/2019, 06/04/2012, 01/10/2006 Colonoscopy 04/06/2033 04/06/2023, 09/06/2012 Colorectal Cancer Screening 04/06/2033 Hepatitis B Vaccines Completed 05/14/2015, 02/26/2014, 09/26/2013 Hepatitis C Screening Completed 11/11/2022 HIV Screening Completed 10/24/2024, 02/13/2020 HIB Vaccines Aged Out No longer eligi [...] Diagnosis Comments HIGH SENSITIVITY TROPONIN I Routine 10/24/2024 4:58 PM EST HIGH SENSITIVITY TROPONIN I Routine 10/24/2024 2:30 PM EST B TYPE NATRIURETIC PEPTIDE (BNP) Routine 10/24/2024 2:30 PM EST COMPREHENSIVE METABOLIC PANEL Routine 10/24/2024 2:30 PM EST APTT Routine 10/24/2024 2:30 PM EST PROTHROMBIN TIME-INR Routine 10/24/2024 2:30 PM EST CBC WITH AUTO DIFFERENTIAL Routine 10/24/2024 2:30 PM EST XR CHEST 1 VIEW Routine 10/24/2024 1:22 PM EST HIV 1/2 ANTIGEN/ANTIBODY, FOURTH GENERATION W/RFL Routine 10/24/2024 9:22 AM EST Weight loss, non-intentional TSH W/REFLEX TO FT4 Routine 10/24/2024 9 :22 AM EST Weight loss, non-intentional VITAMIN D,25-OH,TOTAL,IA Routine 10/24/2024 9:22 AM EST Weight loss, non-intentional LD Routine 10/24/2024 9:22 AM EST Weight loss, non-intentional LIPASE Routine 10/10/2024 12:45 AM EST COMPREHENSIVE METABOLIC PANEL Routine 10/10/2024 12:45 AM EST CBC WITH AUTO DIFFERENTIAL Routine 10/10/2024 12:45 AM EST FL GUIDANCE IN OR Routine 10/01/2024 4: 15 PM EST LIPASE Routine 09/30/2024 4:26 PM EST Renal calculi MAGNESIUM Routine 09/30/2024 4:26 PM EST Renal calculi BASIC METABOLIC PANEL Routine 09/30/2024 4:26 PM EST Renal calculi HEPATIC FUNCTION PANEL Routine 4:26 PM EST Renal calculi URINALYSIS, COMPLETE, WITH REFLEX TO CULTURE Routine 09/30/2024 4:26 PM EST Renal calculi PROTHROMBIN TIME-INR Routine 09/30/2024 4:26 PM EST Renal calculi CBC WITH AUTO DIFFERENTIAL Routine 09/30/2024 4:26 PM EST Renal calculi US RETROPERITONEAL COMPLETE Routine 09/30/2024 1:13 PM EST POCT URINALYSIS DIPSTICK Routine 09/27/2024 11:46 AM [...] without long-term current use of insulin (CMS/HCC) CASE PRESENTATION, DETAILED AND EXTENSIVE TREATMENT PLANNING Routine 08/09/2024 [...] Routine 08/01/2024 9:30 AM EST Teeth missing PROPHYLAXIS - ADULT Routine 05/03/2024 1 0:00 AM EDT BITEWINGS - 2 RADIOGRAPHIC IMAGES Routine 05/03/2024 9:30 AM EDT PERIODIC ORAL EVALUATION - ESTABLISHED PATIENT Routine 05/03/2024 9:30 AM EDT HM COLONOSCOPY Routine 04/06/2023 HEPATITIS C AB W/REFL TO HCV RNA, QN, PCR Routine 11/11/2022 8:59 AM EDT Routine screening for STI (sexually transmitted infection) from Last 3 Months or Most Recently Relevant to Health Maintenance Results * High Sensitivity Troponin I (10/24/2024 4:58 PM EST) Only the most recent of5 resultswithin the time period is included. [facility] TROPONIN I HIGH SENSITIVITY 3.4 <3.5 - 35.0 ng/L [facility] Comment:The Schmidt high sens itivity Troponin-I results should beused in conjunction with other diagnostic information suchas ECG, clinical observations and information, and patientsymptoms to aid in the diagnosis of [place]. 10/24/2024 4:58 PM EST 10/24/2024 5:02 PM EST us Generic External Data Provider LAB BLOOD ORDERAB LES Final Result [facility] [address] [place] [phone] * (ABNORMAL) CBC auto differential (10/24/2024 2:30 PM EST) Only the most recent of5 resultswithin the time period is included. [facility] White Blood Count 5.1 4.8 - 10.8 X10*3/uL [facility] Red Blood Count 4.31(L) 4.60 - 5.80 X10*6/uL [facility] Hemoglobin 13.0(L) 14.0 - 18.0 g/dl [facility] Hematocrit 39.1(L) 42.0 - 52.0 % [facility] Mean Corpuscular Volume 90.7 80.0 - 98.0 fL [facility] Mean Corpuscular Hemoglobin 30.2 27.0 - 33.0 pg [facility] Mean Corpuscular HGB Conc 33.2 31.0 - 36.0 g/dl [facility] Red Cell Distribution Width 12.6 11.0 - 16.0 % [facility] Platelet Count 290 160 - 400 X10*3/uL [facility] [facility] Mean Platelet Volume 9.7 9.4 - 12.4 fL [facility] Neutrophils Percent Auto 68.7 45 - 73 % [facility] Imm Gran Pct Auto 0.2 0.0 - 0.4 % [facility] Lymphocytes Percent Auto 19.5(L) 20 - 40 % [facility] Monocytes Percent Auto 9.8 2 - 11 % [facility] Eosinophils Percent Auto 1.2 0 - 4 % [facility] Basophils Percent Auto 0.6 0 - 2 % [facility] NRBC Pct Auto 0.0 0.0 - 0.2 /100WBC [facility] Neutrophils Absolute Auto 3.5 2.0 - 8.3 x10*3/uL [facility] Imm Gran Abs Auto 0.01 0.00 - 0.03 X10*3/uL [facility] Lymphocytes Absolute Auto 1.0(L) 1.2 - 4.9 X10*3/uL [facility] Monocytes Absolute Auto 0.5 0.1 - 1.2 X10*3/uL [facility] Eosinophils Absolute Auto 0.1 0.0 - 0.4 X10*3/uL [facility] Basophils Absolute Auto 0.0 0.0 - 0.2 X10*3/uL [facility] NRBC Abs Auto 0.000 0.0 - 0.012 X10*3/uL [facility] 10/24/2024 2:30 PM EST 10/24/2024 2:33 PM EST Generic External Data Provider LAB BLOOD ORDERAB LES Final Result Performing Organization Address [facility] Co de Phone Number [facility] [address] [place] [phone] * Partial Thromboplastin Time, Activated (APTT) (10/24/2024 2:30 PM EST) Partial Thromboplastin Time 35.7 26.0 - 36.8 SEC [facility] Comment:For information rega rding the monitoring of direct thrombininhibitors, please refer to Pharmacy. 10/24/2024 2:30 PM EST 10/24/2024 2:33 PM EST Generic External Data Provider LAB BLOOD ORDERAB LES Final Result Performing Organization Address [facility] de Phone Number [facility] [address] [place] [phone] * Prothrombin Time-INR (10/24/2024 2:30 PM EST) Only the most recent of2 resultswithin the time period is included. Prothrombin Time 10.9 10.9 - 12.4 SEC [facility] INTERNATIONAL NORM RATIO 0.9 0.9 - 1.1 [facility] Comment:INTERNATIONAL NORMAL IZED RATIO (INR) REFERENCE RANGES Reference RangeFor patients not on anticoagulant therapy: 0.9 - 1.1INR ranges for oral anticoagulanttherapy:For prevention and treatment of venous thrombosis and pulmonary embolism: 2.0 - 3.0For acute myocardial infarction with aspirin therapy: 2.0 - 3.0For acute myocardial infarction without aspirin therapy: 3.0 - 4.0For patients with mechanical prosthetic heart valves: 2.5 - 3.5 10/24/2024 2:30 PM EST 10/24/2024 2:33 PM EST Generic External Data Provider LAB BLOOD ORDERAB LES Final Result Performing Organization Address [facility] de Phone Number [facility] [address] [place] [phone] * B Type Natriuretic Peptide (BNP) (10/24/2024 2:30 PM EST) B Type Natriuretic Peptide 32 <100 pg/mL [facility] Comment:For those patients w ho are being treated with Natrecor(nesiritide, recombinant BNP), BNP testing should beperformed at least two hours post treatment in order toensure that only endogenous levels of BNP are detected. 10/24/2024 2:30 PM EST 10/24/2024 2:33 PM EST us Generic External Data Provider LAB BLOOD ORDERAB LES Final Result Performing Organization Address [facility] de Phone Number [facility] [address] [place] [phone] * (ABNORMAL) Comprehensive Metabolic Panel (10/24/2024 2:30 PM EST) Only the most recent of3 resultswithin the time period is included. Pathologist [facility] Sodium 141 135 - 145 mmol/L [facility] Potassium 3.8 3.3 - 5.1 mmol/L [facility] Chloride 108 96 - 108 mmol/L [facility] Carbon Dioxide 28 22 - 29 mmol/L [facility] Anion Gap 9(L) 12 - 20 [facility] Urea Nitrogen (BUN) 12 9 - 16 mg/dL [facility] Creatinine, Serum 0.91 0.5 - 1.4 mg/dL [facility] Creatinine Clr Calc Pharmacy 80.7 [facility] Comment:eGFR (calculated fro m the MDRD study equation) and eCrCl(calculated from the Cockcroft-Gault equation) are based ondifferent parameters and may not yield comparable results.If eCrCl result is absurd, please check patient'sheight/weight. Estimated Glomerular Filt Rate >60 [facility] Comment:Chronic Kidney Disea se: Estimated GFR < 60 mL/min/1.90e1Mxmevd Kidney Disease: Estimated GFR < 15 mL/min/1.73m2 Glucose 197(H) 60 - 115 mg/dL [facility] Calcium 8.9 8.4 - 10.2 mg/dL [facility] Bilirubin, Total 0.7 0.0 - 1.0 mg/dL [facility] Aspartate Amino Transferase 22 5 - 37 U/L [facility] Alanine Aminotransferase 12 0 - 40 U/L [facility] Total Protein 6.8 6.5 - 8.0 g/dL [facility] Albumin Level 3.9 3.5 - 5.0 g/dL [facility] Alkaline Phosphatase 88 39 - 117 U/L [facility] 10/24/2024 2:30 PM EST 10/24/2024 2:33 PM EST us Generic External Data Provider LAB BLOOD ORDERAB LES Final Result Performing Organization Address City/State/[facility] Co de Phone Number [facility] [address] [place] [phone] * XR Chest 1 View (10/24/2024 1:22 PM EST) Only the most recent of2 resultswithin the time period is included. Anatomical Region Laterality Modality Chest Radiographic Hannah ging 10/24/2024 1:22 PM EST Narrative 10/24/2024 1:45 PM EST ? [facility] ?[address] ?[place] [address] ?XRay Report ? Signed ? Patient: Krista,Bobby ?MR#: [id number] ? : 1965 ?Acct:[id number] ? Age/Sex: 59 / M ?ADM Date: 02/27/25 ? Loc: HO.ED ? Attending Dr: ? Ordering Physician: Alexy Yang ?? Date of Service: 10/24/24 ?? Procedure(s): XR chest 1V ?? Accession Number(s): [id number] ? cc: Alexy Yang; Ashley Frankel MD ? EXAMINATION: ?? XR CHEST ? CLINICAL INFORMATION: ?? Chest tigthness ? COMPARISON: ?? September 09, 2024. ? TECHNIQUE: ?? Frontal view of the chest was obtained. ? FINDINGS: ?? No consolidation, pleural effusion or pneumothorax. Cardiomediastinal ?? silhouette size is normal. ?? S-shaped curvature of the thoracic spine. Multilevel thoracolumbar ?? spondylosis. ?? Degenerative changes in the right shoulder. ?? Probable pigtail catheter in the right hemiabdomen. ? XR/XR chest 1V ?? IMPRESSION: ?? No acute airspace disease. ? Electronically signed by: ??Jeffrey Roldan MD ??10/24/2024 01:42 PM ?? EST RP ? Dictated By: ?Jeffrey Downing MD ? Signed By: ?<Electronically signed by Jeffrey Weems MD in OV> ? 10/24/24 1342 ? DD/ 1322 ? TD/TT: 10/24/24 1336 ? Secretary: ? Procedure Note Reshma, Cesar - 10/24/[address] [address] XRay Report Signed Patient: Pierce Velasco#: [id number] : 1965Acct:[id number] Age/Sex: 59 / MADM Date: 10/24/24 Loc: HO.ED Attending Dr: Ordering Physician: Alexy Yang Date of Service: 10/24/24 Procedure(s): XR chest 1V Accession Number(s): [id number] cc: Alexy Yang; Ashley Frankel MD EXAMINATION: XR CHEST CLINICAL INFORMATION: Chest tigthness COMPARISON: September 09, 2024. TECHNIQUE: Frontal view of the chest was obtained. FINDINGS: No consolidation, pleural effusion or pneumothorax. Cardiomediastinal silhouette size is normal. S-shaped curvature of the thoracic spine. Multilevel thoracolumbar spondylosis. Degenerative changes in the right shoulder. Probable pigtail catheter in the right hemiabdomen. XR/XR chest 1V IMPRESSION: No acute airspace disease. Electronically signed by: Jeffrey Roldan MD 10/24/2024 01:42 PM EST RP Dictated By: Jeffrey Downing MD Signed By: <Electronically signed by Jeffrey Weems MDin OV> 10/24/24 1342 DD/ 1322 TD/TT: 10/24/24 1336 Secretary: [facility] External Provider IMG XR PROCEDURES Final Result * Vitamin D, 25-Hydroxy, Total, Immunoassay (10/24/2024 9:22 AM EST) Vitamin D 25-OH Total 39.3 >30 ng/mL [facility] Comment:Health Based Referen ce Values*< 20 ng/mL Vdgvroior20-44 ng/mL Insufficient> 30 ng/mL Sufficient*Colleen GILL. N [...] Frankel MD LAB BLOOD ORDERABLES Final Result [facility] [address] [place] [phone] * TSH W/Reflex to FT4 (10/24/2024 9:22 AM EST) TSH reflex Free T4 1.31 0.32 - 4.0 uIU/mL [facility] Blood Venous blood specimen / Unknown 10/24/2024 9:22 AM EST 10/24/2024 11:48 AM EST Ashley Frankel MD LAB BLOOD ORDERABLES Final Result Performing Organization Address [facility] Co de Phone Number [facility] [address] [place] [phone] * HIV-1/2 Antigen and Antibodies, Fourth Generation, with Reflexes (10/24/2024 9:22 AM EST) HIV AB/AG Nonreactive Nonreactive [facility] Comment:HIV-1 p24 Ag and/or HIV-1/HIV-2 Ab not detected.A test result that is nonreactive does not exclude thepossibility of exposure to or infection with HIV-1 and/orHIV-2. Nonreactive results in this assay for individualswith prior exposure to HIV-1 and/or HIV-2 may be due toantigen and antibody levels that are below the limit ofdetection of this assay.The [employer] HIV Ag/Ab Combo assay result andsupplemental assay results should be interpreted inconjunction with the patient's clinical presentation,history and other laboratory results. If the results areinconsistent with clinical evidence, additional testing issuggested to confirm the result. Blood Venous blood specimen / Unknown 10/24/2024 9:22 AM EST 10/24/2024 11:48 AM EST Ashley Frankel MD LAB BLOOD ORDERABLES Final Result Performing Organization Address [facility] Co de Phone Number [facility] [address] [place] [phone] * Lactate Dehydrogenase (LD) (10/24/2024 9:22 AM EST) Lactate Dehydrogenase 248 118 - 273 U/L [facility] Blood Venous blood specimen / Unknown 10/24/2024 9:22 AM EST 10/24/2024 11:48 AM EST Ashley Frankel MD LAB BLOOD ORDERABLES Final Result Performing Organization Address [facility] Co de Phone Number [facility] [address] [place] [phone] * Lipase (10/10/2024 12:45 AM EST) Only the most recent of4 resultswithin the time period is included. Lipase 36 8 - 78 U/L [facility] 10/10/2024 12:4 5 AM EST 10/10/2024 12:47 AM EST us Generic External Data Provider LAB BLOOD ORDERAB LES Final Result Performing Organization Address [facility] de Phone Number [facility] [address] [place] [phone] * FL Guidance in OR (10/01/2024 4:15 PM EST) Anatomical Region Laterality Modality X-Ray Angiograph y 10/01/2024 4:15 PM EST Narrative 10/02/2024 10:09 AM EST ? [facility] ?[address] ?[place] [address] ? Fluoroscopy Report ? Signed ? Patient: Bobby Velasco ?MR#: [id number] ? : 1965 ?Acct:[id number] ? Age/Sex: 59 / M ?ADM Date: 09/30/24 ? Loc: HO.S3 ?344-1 ? Attending Dr: Parveen Breen MD ? Ordering Physician: Mayda Rodriguez MD ?? Date of Service: 10/01/24 ?? Procedure(s): FL guidance in OR ?? Accession Number(s): [id number] ? cc: Mayda Rodriguez MD; Ashley Frankel [...] signed by Harrison Patel MD in OV> ?10/02/246 ? DD/ 1615 ? TD/TT: 10/01/24 1710 ? Secretary: ? Procedure Note Donshobha, Image - 10/02/2024 [place] [address] Fluoroscopy Report Signed Patient: Pierce Velasco#: [id number] : 1965Acct:[id number] Age/Sex: 59 / MADM Date: 09/30/24 Loc: .S3 344-[address]: Parveen Breen MD Ordering Physician: Mayda Rodriguez MD Date of Service: 10/01/24 Procedure(s): FL guidance in OR Accession Number(s): [id number] cc: Mayda Rodriguez MD; Ashley Frankel MD [...] 10/02/24 1006 DD/ 1615 TD/TT: 10/01/24 1710 Secretary: us [facility] External Provider IMG IR PROCEDURES Edited Result - Final * (ABNORMAL) Urinalysis, Complete, with Reflex to Culture (09/30/2024 4:26 PM EST) Only the most recent of2 resultswithin the time period is included. Color Urine Yellow [facility] Appearance Urine Clear [facility] PH 5.5 5.0 - 9.0 [facility] Glucose Urine UA Negative Negative mg/dL [facility] Urine Blood Negative Negative [facility] Specific [place] - Urine <=1.005 1.005 - 1.025 [facility] Urine Protein Negative Neg-Trace mg/dL [facility] Urine Ketones Trace Negative mg/dL [facility] Nitrite Urine Negative Negative [facility] Leukocyte Esterase Urine Trace(A) Negative [facility] RBC Urine 0-2 0 - 2 /HPF [facility] Urine WBC 0-5 0 - 5 /HPF [facility] Urine Squamous Epithelial Cell 0-2 0 - 2 /HPF [facility] Urine Bacteria None Seen None Seen [facility] Hyaline Casts, Urine 0-2 0 - 2 /LPF [facility] 09/30/2024 4:26 PM EST 09/30/2024 4:29 PM EST Narrative [facility] - 09/30/2024 4:46 PM EST [id number], Clean Catch Generic External Data Provider LAB URINE ORDERAB LES Final Result [facility] [address] [place] [phone] * Magnesium (09/30/2024 4:26 PM EST) Only the most recent of3 resultswithin the time period is included. Magnesium 1.9 1.6 - 2.6 mg/dL [facility] 09/30/2024 4:26 PM EST 09/30/2024 4:29 PM EST Generic External Data Provider LAB BLOOD ORDERAB LES Final Result Performing Organization Address [facility] Co de Phone Number [facility] [address] [place] [phone] * Hepatic Function Panel (09/30/2024 4:26 PM EST) Only the most recent of3 resultswithin the time period is included. Bilirubin, Total 0.9 0.0 - 1.0 mg/dL [facility] Bilirubin, Direct 0.2 0.0 - 0.5 mg/dL [facility] Aspartate Amino Transferase 25 5 - 37 U/L [facility] Alanine Aminotransferase 12 0 - 40 U/L [facility] Total Protein 7.8 6.5 - 8.0 g/dL [facility] Albumin Level 4.5 3.5 - 5.0 g/dL [facility] Alkaline Phosphatase 94 39 - 117 U/L [facility] 09/30/2024 4:26 PM EST 09/30/2024 4:29 PM EST Generic External Data Provider LAB BLOOD ORDERAB LES Final Result Performing Organization Address [facility] de Phone Number [facility] [address] [place] [phone] * (ABNORMAL) Basic Metabolic Panel (09/30/2024 4:26 PM EST) Only the most recent of3 resultswithin the time period is included. Sodium 141 135 - 145 mmol/L [facility] Potassium 3.6 3.3 - 5.1 mmol/L [facility] Chloride 108 96 - 108 mmol/L [facility] Carbon Dioxide 25 22 - 29 mmol/L [facility] Anion Gap 12 12 - 20 [facility] Urea Nitrogen (BUN) 14 9 - 16 mg/dL [facility] Creatinine, Serum 0.93 0.5 - 1.4 mg/dL [facility] Creatinine Clr Calc Pharmacy 85.6 [facility] Comment:eGFR (calculated fro m the MDRD study equation) and eCrCl(calculated from the Cockcroft-Gault equation) are based ondifferent parameters and may not yield comparable results.If eCrCl result is absurd, please check patient'sheight/weight. Estimated Glomerular Filt Rate >60 [facility] Comment:Chronic Kidney Disea se: Estimated GFR < 60 mL/min/1.50i9Rzhlfp Kidney Disease: Estimated GFR < 15 mL/min/1.73m2 Glucose 125(H) 60 - 115 mg/dL [facility] Calcium 9.6 8.4 - 10.2 mg/dL [facility] 09/30/2024 4:26 PM EST 09/30/2024 4:29 PM EST us Generic External Data Provider LAB BLOOD ORDERAB LES Final Result Performing Organization Address City/State/[facility] Co de Phone Number [facility] [address] [place] [phone] * US Retroperitoneal Complete (09/30/2024 1:13 PM EST) Anatomical Region Laterality Modality Ultrasound 09/30/2024 1:13 PM EST Narrative 09/30/2024 1:13 PM EST ? [facility] ?[address] ?[place] [address] ? Ultrasound Report ? Signed ? Patient: Krista,Bobby ?MR#: [id number] ? : 1965 ?Acct:[id number] ? Age/Sex: 59 / M ?ADM Date: 02/03/25 ? Loc: HO.US ? Attending Dr: Malika Mac MD ? Ordering Physician: Malika Mac MD ?? Date of Service: 09/30/24 ?? Procedure(s): US retroperitoneal comp ?? Accession Number(s): [id number] ? cc: Ashley Frankel MD; Malika Mac [...] by Jong Almendarez MD in OV> ? 09/30/24 1313 ? DD/ 1313 ? TD/TT: 09/30/24 1313 ? Secretary: ? Procedure Note Cesar Justice - 09/30/2024 [place] [address] Ultrasound Report Signed Patient: Pierce Velasco#: [id number] : 1965Acct:[id number] Age/Sex: 59 / MADM Date: 09/30/24 Loc: HO.US Attending Dr: Malika Mac MD Ordering Physician: Malika Mac MD Date of Service: 09/30/24 Procedure(s): US retroperitoneal comp Accession Number(s): [id number] cc: Ashley Frankel MD; Malika Mac MD [...] Almendarez MD on 09/30/2024 13:13:14 Dictated By: Jong Almendarez MD Signed By: <Electronically signed by Jong Almendarez MD in OV> 09/30/24 1313 DD/ 12 TD/TT: 09/30/241312 Secretary: Malika Mac MD IMG US PROCEDURES Final Result * (ABNORMAL) POCT urinalysis dipstick manually resulted [...] TEST ENTER /EDIT ORDERABLES Final Result * SARS-CoV-2 RNA, Influenza A/B, and RSV RNA, Ql NAAT (09/09/2024 11:01 AM EST) Pathologist [facility] Influenza A PCR NEGATIVE Negative [facility] Influenza B PCR NEGATIVE Negative [facility] Resp Syncy Virus RNA Qual PCR NEGATIVE Negative [facility] SARS COV2 PCR NEGATIVE Negative [facility] Comment:All test results mus [...] use by authorized laboratories.Testing performed on the [employer] GeneXpert utilizingreal-time RT-PCR.All SARS CoV2 and positive influenza A/B results arereported to [facility]. 09/09/2024 11:0 1 AM EST 09/09/2024 11:06 AM EST us Generic External Data Provider LAB MICROBIOLOGY - GENERAL ORDERABLES Final Result [facility] [address] [place] [phone] * XR Chest 2 Views (09/09/2024 10:34 AM EST) Anatomical Region Laterality Modality Chest Radiographic Hannah ging 09/09/2024 10:3 4 AM EST Narrative 09/09/2024 11:06 AM EST ? [facility] ?[address] ?[place] [address] ?XRay Report ? Signed ? Patient: Krista,Bobby ?MR#: [id number] ? : 1965 ?Acct:[id number] ? Age/Sex: 59 / M ?ADM Date: 09/09/ ? Loc: HO.ED ? Attending Dr: ? Ordering Physician: Deandra Reynolds DO ?? Date of Service: 09/09/24 ?? Procedure(s): XR chest 2V ?? Accession Number(s): [id number] ? cc: Ashley Frankel MD; Deandra Reynolds [...] ? Signed By: ?<Electronically signed by Harrison Patle MD in OV> ?09/09/241102 ? DD/ 1034 ? TD/TT: 09/09/24 1045 ? Secretary: ? Procedure Note Donjacobter, Image - 09/09/2024 [place] [address] XRay Report Signed Patient: Pierce Velasco#: [id number] : 1965Acct:[id number] Age/Sex: 59 / MADM Date: 09/09/24 Loc: .ED Attending Dr: Ordering Physician: Deandra Reynolds DO Date of Service: 09/09/24 Procedure(s): XR chest 2V Accession Number(s): [id number] cc: Ashley Frankel MD; Deandra Reynolds DO [...] 09/09/24 1103 DD/ 1034 TD/TT: 09/09/24 1045 Secretary: us [facility] External Provider IMG XR PROCEDURES Edited Result - Final * Albumin, Random Urine W/Creatinine (08/13/2024 11:26 AM EST) Creatinine, Urine 73.67 mg/dL [facility] Microalbumin Urine 13.0 mg/L [facility] Microalbum Creatinine Ratio Ur 17.6 <30 ug/mg cr [facility] Comment:Albumin/Creatinine R atio Reference Ranges: Normal: < 30 ug/mg creatinine Microalbuminuria: 30 - 300 ug/mg creatinineClinical Albuminuria: > 300 ug/mg creatinine Urine 08/13/2024 11:2 6 AM EST 08/13/2024 1:00 PM EST Ashley Frankel MD LAB URINE ORDERABLES Final Result [facility] [address] [place] [phone] * Testosterone, Total, males (Adult), IA (08/13/2024 11:26 AM EST) Testosterone, Total 317 250 - 1100 ng/dL [facility] Comment:For additional infor mation, please refer tohttp://education.[employer].sm.Communication Intelligence/faq/NgqeiGbigqqtovaabBEVYTUZSF396(This link is being provided for informational/educational purposes only.)This test was developed and its analytical performancecharacteristics have been determined by [employer] [place], [place]. It hasnot been cleared or approved by the U.S. Food and DrugAdministration. This assay has been validated pursuantto the CLIA regulations and is used for clinicalpurposes.THIS TEST WAS PERFORMED AT:[email or web address] [place] [address]VXWKGLSDANIELLE BOLTON MD,PHD 08/13/2024 11:2 6 AM EST 08/13/2024 12:59 PM EST Generic External Data Provider LAB BLOOD ORDERAB LES Final Result Performing Organization Address [facility] Co de Phone Number [facility] [address] [place] [phone] * PSA,Total (08/13/2024 11:26 AM EST) Prostate Specific Antigen 0.69 <0.05 - 4.0 ng/mL [facility] Comment:PSA methodology: Abb sukhwinder Alinity i ChemiluminescentMicroparticle Immunoassay (CMIA) 08/13/2024 11:2 6 AM EST 08/13/2024 12:59 PM EST Generic External Data Provider LAB BLOOD ORDERAB LES Final Result Performing Organization Address [facility] [address] [place] [phone] * (ABNORMAL) Hemoglobin A1c (08/13/2024 11:26 AM EST) Hemoglobin A1c 6.2(H) <6.0 % [facility] Comment:Hemoglobin A1C Refer ence Range Adults: 4.8 - 6.0 % Non diabetic: < 6.0 % Goal: < 7.0 %Additional Action Suggested: > 8.0 %Note: Hemoglobin A1c results are invalid for patients with abnormal amounts of HbF. Blood transfusions may impact the HbA1c concentration in the patient sample. Estimated Average Glucose 131 mg/dL [facility] Comment:eAG = Estimated ave rage glucose which is %A1C expressed asaverage glucose, using the formula of the H4Y-DqksvjdNdbxhji Glucose study (ADAG), Diabetes Care, Vol.31,#8,Mar. 2007 Blood Venous blood specimen / Unknown 08/13/2024 11:26 AM EST 08/13/2024 12:59 PM EST Ashley Frankel MD LAB BLOOD ORDERABLES Final Result Performing Organization Address [facility] Co de Phone Number [facility] [address] [place] [phone] * (ABNORMAL) Lipid Panel, Standard (08/13/2024 11:26 AM EST) Triglycerides 86 <150 mg/dL [facility] Comment:Desirable Triglyceri de: less than 150 mg/dLBorderline High Triglyceride 150-199 mg/dLHigh Triglyceride: 200-499 mg/dLVery High Triglyceride: greater than or equal to 5OO mg/dL Cholesterol 146 <200 mg/dL [facility] Comment:Desirable Cholestero l: less than 200 mg/dLBorderline High Cholesterol: 200-239 mg/dLHigh Cholesterol: greater than 239 mg/dL LDL Cholesterol Calculated 96 <100 mg/dL [facility] Comment:Desirable LDL: less than 100 mg/dLNear Optimal/Above Optimal LDL: 110- 129 mg/dLBorderline High LDL: 130-159 mg/dLHigh LDL: 160-189 mg/dLVery High LDL: greater than or equal to 190 mg/dL HDL Cholesterol 33(L) >40 mg/dL [facility] Comment:Desirable HDL: great er than 40 mg/dL Note: This HDL assay may give artificially low results in patients with liver disease. Blood Venous blood specimen / Unknown 08/13/2024 11:26 AM EST 08/13/2024 12:59 PM EST Ashley Frankel MD LAB BLOOD ORDERABLES Final Result [facility] [address] [place] [phone] * Hm Colonoscopy (04/06/2023) Colonoscopy Normal Normal Moncho Bishop MD HEALTH MAINTENANCE Final Result * Hepatitis C Antibody with Reflex to HCV, RNA, Quantitative, Real-Time PCR (11/11/2022 8:59 AM EDT) Hepatitis C Antibody NON-REACT KELSY NON-REACT KELSY [facility] [place] Socitive Diagnost Index 0.64 <1.00 [facility] Diagnost Comment: HCV antibody was non-reactive. There is no laboratory evidence of HCV infection. In most cases, no further action is required. However, if recent HCV exposure is suspected, a test for HCV RNA (test code 91013) is suggested. For additional information please refer to http://education.ComEd/faq/KAA06w4 (This link is being provided for informational/ educational purposes only.) Blood Venous blood specimen / Unknown 11/11/2022 8:59 AM EDT 11/11/2022 8:59 AM EDT Narrative [facility] - 11/11/2022 9:36 PM EDT FASTING:YES FASTING: YES Ashley Frankel MD LAB BLOOD ORDERABLES Final Result [facility] [address], [place] [address] [employer] [place] [employer] 200 [place] [address] from Last 3 Months or Most Recently Relevant to Health Maintenance Insurance [facility] - [facility] Care Teams Machine Lacer Relationship Specialty Start Date End Date Marlys, MD Ashley [address] [place] [address] PCP - General Family Medicine 08/28/18November [address] [address] Gastroenterology 07/17/24 Kishore Dorsey MD 10 [facility] [address] [place] [address] Urology 07/17/24 Raheel Gee 5 [place], [place] 1040 Pulmonary Disease 07/17/24 Riya Fulton [address] [address] Cardiology 07/17/24 Sergio Hackett [address] [place] [address] Orthopaedic Surgery 07/17/24 Dominga Silva, PharmD [address] [place] [address] Pharmacist Internal Medicine 07/22/24 De. Dalal Psychiatry 10/10/24
--- OUTSIDE RECORDS SUMMARY | 2024-10-24 19:25 | XMS_ITS | Encounter Summary ---
Author Organization [employer] Address 75 [facility] 7t [place] [address] Care Team Providers Care Personal Property Appraiser Name Role Phone Ashley Frankel MD Primary Care Provider [phone]- [phone] Hoang, November Unavailable Kishore Dorsey MD Unavailable Raheel Gee Unavailable [phone] Riya Fulton Unavailable Sergio Hackett Unavailable Unavailable Dominga Silva PharmD Unavailable Encounter Details Date Type Department Care Team (Late st Contact Info) Description 10/17/2024 Telephone [facility] MEDICINE 230 [place], [place] [phone] Ashley Frankel MD 230 [place], [place] [phone] Social History Tobacco Use Types Packs/Day Years [...] Description 10/28/2024 9:00 AM EST Medication Management [facility] MEDICINE [address] [place] [address] Dominga Silva, PharmD [address] [place] [address] 12/09/2024 8:00 AM EDT Office Visit [facility] ADULT DENTAL [address] [place] [address] Jackie Peacock 01/23/2025 9:45 AM EDT Office Visit [facility] MEDICINE [address] [place] [address] Ashley Frankel MD [address] [place] [address] documented as of this encounter Visit Diagnoses Not on filedocumented in this encounter Additional Health Concerns Assessment Noted Time PHQ-9 Depression Total Score: 0 07/17/20 24 10:33 AM EST documented as of this encounter Care Teams Personal Property Appraiser Relationship Specialty Start Date End Date Ashley Frankel MD [address] [place] [address] PCP - General Family Medicine 08/28/18 Sonya Hoang [address] 3rd [place] [address] Gastroenterology 07/17/24 Kishore Dorsey MD [address] [place] [address] Urology 07/17/24 Raheel Gee 5 [place], [place] 1040 Pulmonary Disease 07/17/24 Riya Fulton 11 [facility] 3rd [place] [address] Cardiology 07/17/24 Sergio Hackett [address] [place] [address] Orthopaedic Surgery 07/17/24 Dominga Silva, AnanthD 230 [place] [address] Pharmacist Internal Medicine 07/22/24 De. [facility] Psychiatry 10/10/24 documented as of this encounter
--- OUTSIDE RECORDS SUMMARY | 2024-10-24 19:25 | XMS_ITS | Encounter Summary ---
Author Organization [employer] Address 75 [facility] 7t [place] [address] Care Team Providers Care Supervisor Long Goods Name Role Phone Ashley Frankel MD Primary Care Provider [phone]- [phone] Hoang, November Unavailable Kishore Dorsey MD Unavailable Raheel Gee Unavailable [phone] Riya Fulton Unavailable Sergio Hackett Unavailable Unavailable Dominga Silva PharmD Unavailable Reason for Visit * Reason Comments Med Refill Encounter Details Date Type Department Care Team (Late st Contact Info) Description 07/24/2023 Refill [facility] 230 [place] [address] [facility] 230 [place], [place] [phone] Prostatitis, acute Social History Tobacco Use Types [...] Description 10/28/2024 9:00 AM EST Medication Management [facility] MEDICINE [address] [place] [address] Dominga Silva, PharmD [address] [place] [address] 12/09/2024 8:00 AM EDT Office Visit [facility] ADULT DENTAL [address] [place] [address] Jackie Peacock 01/23/2025 9:45 AM EDT Office Visit [facility] MEDICINE [address] [place] [address] Ashley Frankel MD [address] [place] [address] documented as of this encounter Visit Diagnoses Diagnosis Prostatitis, acute Acute prostatitis documented in this encounter Care Teams Supervisor Long Goods Relationship Specialty Start Date End Date Ashley Frankel MD [address] [place] [address] PCP - General Family Medicine 08/28/[address] 3rd [place] [address] Gastroenterology 07/17/24 Kishore Dorsey MD [address] [place] [address] Urology 07/17/24 Raheel Gee 5 [place], [place] 1040 Pulmonary Disease 07/17/24 Riya Fulton [address] 3rd [place] [address] Cardiology 07/17/24 Sergio Hackett 300 [facility] 2nd [place] [address] Orthopaedic Surgery 07/17/24 Dominga Silva, AnanthD 230 [place] [address] Pharmacist Internal Medicine 07/22/24 Norm. [place] Psychiatry 10/10/24 documented as of this encounter
--- OUTSIDE RECORDS SUMMARY | 2024-10-24 19:25 | XMS_ITS | Encounter Summary ---
Author Organization [employer] Address [address] [place] [address] [place] [address] Care Team Providers Care Boilermaker Apprentice Name Role Phone Ashley Frankel MD Primary Care Provider [phone]- [phone] Hoang November Unavailable Kishore Dorsey MD Unavailable Raheel Gee Unavailable [phone] Riya Fulton Unavailable Sergio Hackett Unavailable Unavailable Dominga Silva PharmD Unavailable Reason for Referral * Consultation (Routine) - Authorized Specialty Diagnoses / Procedures Referred By Jeromy worrell Referred To Contact Urology Diagnoses Renal calculi Hydronephrosis, unspecified hydronephrosis type Ashley Frankel MD [address] [place] [address] Phone: tel: fax: [facility] Referral ID Status Reason Start Date Expiration Date Visits Requested Visits Authorized [id number] Authorized Specialty Services Required 09/30/2024 09/30/2025 1 1 Encounter Details Date Type Department Care Team (Late st Contact Info) Description 09/30/2024 Orders Only [facility] MEDICINE [address] [place] [address] [phone] Ashley Frankel MD [address] [place] [phone] Renal calculi (Primary Dx); Hydronephrosis, unspecified [...] Description 10/28/2024 9:00 AM EST Medication Management [facility] MEDICINE 230 [place] [address] Dominga Silva, PharmD 230 [place] [address] 12/09/2024 8:00 AM EDT Office Visit [facility] ADULT DENTAL 230 [place], [place] [phone] Jackie Peacock 01/23/2025 9:45 AM EDT Office Visit [facility] MEDICINE [address] [place] [address] Ashley Frankel MD [address] [place] [address] Scheduled Referrals Name Type Priority Associated Diagnoses [...] EST Narrative 10/02/2024 10:09 AM EST ? [facility] ?[address] ?[place] [address] ? Fluoroscopy Report ? Signed ? Patient: Krista,Bobby ?MR#: [id number] ? : 1965 ?Acct:[id number] ? Age/Sex: 59 / M ?ADM Date: 09/30/24 ? Loc: HO.S3 ?344-1 ? Attending Dr: Parveen Breen MD ? Ordering Physician: Mayda Rodriguez MD ?? Date of Service: 10/01/24 ?? Procedure(s): FL guidance in OR ?? Accession Number(s): [id number] ? cc: Mayda Rodriguez MD; Ashley Frankel [...] DD/ 1615 ? TD/TT: 10/01/24 1710 ? Inspector Plumbing: ? Procedure Note Cesar Justice - 10/02/[address] [address] Fluoroscopy Report Signed Patient: Pierce Velasco#: [id number] : 1965Acct:[id number] Age/Sex: 59 / MADM Date: 09/30/24 Loc: HO.S3 344-[address]: Parveen Breen MD Ordering Physician: Mayda Rodriguez MD Date of Service: 10/01/24 Procedure(s): FL guidance in OR Accession Number(s): [id number] cc: Mayda Rodriguez MD; Ashley Frankel MD [...] Harrison Patel MD 10/02/2024 10:06 AM EST Workstation: [id number] Dictated By: Harrison Patel MD Signed By: <Electronically signed by Harrison Patel MD in OV> 10/02/24 1006 DD/ 1615 TD/TT: 10/01/24 1710 Inspector Plumbing: [facility] External Provider IMG IR PROCEDURES Edited Result - Final * Lipase (09/30/2024 4:26 PM EST) Lipase 35 8 - 78 U/L [facility] 09/30/2024 4:26 PM EST 09/30/2024 4:29 PM EST Generic External Data Provider LAB BLOOD ORDERAB LES Final Result Performing Organization Address [facility] de Phone Number [facility] [address] [place] [phone] * Magnesium (09/30/2024 4:26 PM EST) Magnesium 1.9 1.6 - 2.6 mg/dL [facility] 09/30/2024 4:26 PM EST 09/30/2024 4:29 PM EST Generic External Data Provider LAB BLOOD ORDERAB LES Final Result Performing Organization Address [facility] Co de Phone Number [facility] [address] [place] [address] [phone] * (ABNORMAL) Basic Metabolic Panel (09/30/2024 4:26 PM EST) Pathologist [facility] Sodium 141 135 - 145 mmol/L [facility] Potassium 3.6 3.3 - 5.1 mmol/L [facility] Chloride 108 96 - 108 mmol/L [facility] Carbon Dioxide 25 22 - 29 mmol/L [facility] Anion Gap 12 12 - 20 [facility] Urea Nitrogen (BUN) 14 9 - 16 mg/dL [facility] Creatinine, Serum 0.93 0.5 - 1.4 mg/dL [facility] Creatinine Clr Calc Pharmacy 85.6 [facility] Comment:eGFR (calculated fro m the MDRD study equation) and eCrCl(calculated from the Cockcroft-Gault equation) are based ondifferent parameters and may not yield comparable results.If eCrCl result is absurd, please check patient'sheight/weight. Estimated Glomerular Filt Rate >60 [facility] Comment:Chronic Kidney Disea se: Estimated GFR < 60 mL/min/1.37y4Mycnii Kidney Disease: Estimated GFR < 15 mL/min/1.73m2 Glucose 125(H) 60 - 115 mg/dL [facility] Calcium 9.6 8.4 - 10.2 mg/dL [facility] 09/30/2024 4:26 PM EST 09/30/2024 4:29 PM EST us Generic External Data Provider LAB BLOOD ORDERAB LES Final Result [facility] [address] [place] [address] [phone] * Hepatic Function Panel (09/30/2024 4:26 PM EST) Pathologist [facility] Bilirubin, Total 0.9 0.0 - 1.0 mg/dL [facility] Bilirubin, Direct 0.2 0.0 - 0.5 mg/dL [facility] Aspartate Amino Transferase 25 5 - 37 U/L [facility] Alanine Aminotransferase 12 0 - 40 U/L [facility] Total Protein 7.8 6.5 - 8.0 g/dL [facility] Albumin Level 4.5 3.5 - 5.0 g/dL [facility] Alkaline Phosphatase 94 39 - 117 U/L [facility] 09/30/2024 4:26 PM EST 09/30/2024 4:29 PM EST us Generic External Data Provider LAB BLOOD ORDERAB LES Final Result [facility] [address] [place] [phone] * (ABNORMAL) Urinalysis, Complete, with Reflex to Culture (09/30/2024 4:26 PM EST) Color Urine Yellow [facility] Appearance Urine Clear [facility] PH 5.5 5.0 - 9.0 [facility] Glucose Urine UA Negative Negative mg/dL [facility] Urine Blood Negative Negative [facility] Specific Allons - Urine <=1.005 1.005 - 1.025 [facility] Urine Protein Negative Neg-Trace mg/dL [facility] Urine Ketones Trace Negative mg/dL [facility] Nitrite Urine Negative Negative [facility] Leukocyte Esterase Urine Trace(A) Negative [facility] RBC Urine 0-2 0 - 2 /HPF [facility] Urine WBC 0-5 0 - 5 /HPF [facility] Urine Squamous Epithelial Cell 0-2 0 - 2 /HPF [facility] Urine Bacteria None Seen None Seen [facility] Hyaline Casts, Urine 0-2 0 - 2 /LPF [facility] 09/30/2024 4:26 PM EST 09/30/2024 4:29 PM EST Narrative [facility] - 09/30/2024 4:46 PM EST [id number], Clean Catch Generic External Data Provider LAB URINE ORDERAB LES Final Result Performing Organization Address [facility] Co de Phone Number [facility] [address] [place] [phone] * Prothrombin Time-INR (09/30/2024 4:26 PM EST) [facility] Prothrombin Time 11.3 10.9 - 12.4 SEC [facility] INTERNATIONAL NORM RATIO 1.0 0.9 - 1.1 [facility] Comment:INTERNATIONAL NORMAL IZED RATIO (INR) [...] ORDERAB LES Final Result Performing Organization Address [facility] de Phone Number [facility] [address] [place] [phone] * (ABNORMAL) CBC auto differential (09/30/2024 4:26 PM EST) [facility] White Blood Count 7.2 4.8 - 10.8 X10*3/uL [facility] Red Blood Count 4.65 4.60 - 5.80 X10*6/uL [facility] Hemoglobin 14.2 14.0 - 18.0 g/dl [facility] Hematocrit 41.0(L) 42.0 - 52.0 % [facility] Mean Corpuscular Volume 88.2 80.0 - 98.0 fL [facility] Mean Corpuscular Hemoglobin 30.5 27.0 - 33.0 pg [facility] Mean Corpuscular HGB Conc 34.6 31.0 - 36.0 g/dl [facility] Red Cell Distribution Width 13.0 11.0 - 16.0 % [facility] Platelet Count 273 160 - 400 X10*3/uL [facility] Mean Platelet Volume 10.4 9.4 - 12.4 fL [facility] Neutrophils Percent Auto 68.9 45 - 73 % [facility] Imm Gran Pct Auto 0.3 0.0 - 0.4 % [facility] Lymphocytes Percent Auto 21.1 20 - 40 % [facility] Monocytes Percent Auto 8.1 2 - 11 % [facility] Eosinophils Percent Auto 1.0 0 - 4 % [facility] Basophils Percent Auto 0.6 0 - 2 % [facility] NRBC Pct Auto 0.0 0.0 - 0.2 /100WBC [facility] Neutrophils Absolute Auto 4.9 2.0 - 8.3 x10*3/uL [facility] Imm Gran Abs Auto 0.02 0.00 - 0.03 X10*3/uL [facility] Lymphocytes Absolute Auto 1.5 1.2 - 4.9 X10*3/uL [facility] Monocytes Absolute Auto 0.6 0.1 - 1.2 X10*3/uL [facility] Eosinophils Absolute Auto 0.1 0.0 - 0.4 X10*3/uL [facility] Basophils Absolute Auto 0.0 0.0 - 0.2 X10*3/uL [facility] NRBC Abs Auto 0.000 0.0 - 0.012 X10*3/uL [facility] 09/30/2024 4:26 PM EST 09/30/2024 4:29 PM EST us Generic External Data Provider LAB BLOOD ORDERAB LES Final Result [facility] [address] [place] [address] [phone] documented in this encounter Visit Diagnoses Diagnosis Renal calculi- Primary Calculus of kidney Hydronephrosis, unspecified hydronephrosis type documented in this encounter Additional Health Concerns Assessment Noted Time PHQ-9 Depression Total Score: 0 07/17/20 10:33 AM EST documented as of this encounter Care Teams Boilermaker Apprentice Relationship Specialty Start Date End Date Ashley Frankel MD [address] [place] [address] PCP - General Family Medicine 08/28/[address] 3rd [place] [address] Gastroenterology 07/17/24 Kishore Dorsey MD [address] [place] [address] Urology 07/17/24 Raheel Gee 5 [place], [place] 10[address] Pulmonary Disease 07/17/24 Riya Fulton 11 [facility] 3rd [place] [address] Cardiology 07/17/24 Sergio Hackett [address] [place] [address] Orthopaedic Surgery 07/17/24 Dominga Silva, Mehrdad [address] [place] [address] Pharmacist Internal Medicine 07/22/24 documented as of this encounter
--- OUTSIDE RECORDS SUMMARY | 2024-10-24 19:25 | XMS_ITS | Encounter Summary ---
Author Organization [employer] Address 75 [facility] 7t [place] [address] Care Team Providers Care Clinic Office Coordinator Name Role Phone Ashley Frankel MD Primary Care Provider [phone] Viktor November Unavailable Kishore Dorsey MD Unavailable Raheel Gee Unavailable [phone] Riya Fulton Unavailable Sergio Hackett Unavailable Unavailable Dominga Silva PharmD Unavailable Reason for Visit * Reason Comments Difficulty Urinating Encounter Details Date Type Department Care Team (Late st Contact Info) Description 10/10/2024 1:40 PM EST Office Visit [facility] [address] [place] [address] [phone] Ashley Frankel MD [address] [place], [place] [phone] Dysuria (Primary Dx); Dyslipidemia; Gastroesophageal reflux disease, [...] right ureteroscopy laser lithotripsy stent insertion, 6 [place] by [address] Mayda Rodriguez. [...] right ureteroscopy laser lithotripsy stent insertion, 6 [place] by [address] Mayda Rodriguez. [...] right ureteroscopy laser lithotripsy stent insertion, 6 [place] by [address] Mayda Rodriguez. [...] Description 10/28/2024 9:00 AM EST Medication Management [facility] [address] [place] [address] Dominga Silva PharmD [address] [place] [address] 12/09/2024 8:00 AM EDT Office Visit [facility] ADULT DENTAL [address] [place] [address] Jackie Peacock 01/23/2025 9:45 AM EDT Office Visit [facility] MED[facility] [address] [place] [address] Ashley Frankel MD [address] [place] [address] documented as of this encounter Visit Diagnoses Diagnosis Dysuria- Primary Dyslipidemia Other and unspecified hyperlipidemia Gastroesophageal reflux disease, unspecified whether esophagitis present Benign prostatic hyperplasia with urinary obstruction Anxiety Anxiety state, unspecified documented in this encounter Additional Health Concerns Assessment Noted Time PHQ-9 Depression Total Score: 0 07/17/20 10:33 AM EST documented as of this encounter Care Teams Clinic Office Coordinator Relationship Specialty Start Date End Date Ashley Frankel MD [address] [place] [address] PCP - General Family Medicine 08/28/18 Sonya Hoang [address] 3rd [place] [address] Gastroenterology 07/17/24 Kishore Dorsey MD [address] [place] [address] Urology 07/17/24 Raheel Gee 5 [place], [place] 10[address] Pulmonary Disease 07/17/24 Riya Fulton 11 [facility] 3rd [place] [address] Cardiology 07/17/24 Sergio Hackett [address] [place] [address] Orthopaedic Surgery 07/17/24 Dominga Silva PharmD [address] [place] [address] Pharmacist Internal Medicine 07/22/24 [facility] Psych[facility] 10/10/24 documented as of this encounter
--- OUTSIDE RECORDS SUMMARY | 2024-10-24 19:25 | XMS_ITS | Encounter Summary ---
Author Organization [employer] Address 75 [facility] 7t [place] [address] Care Team Providers Care Windsmith Name Role Phone Ashley Frankel MD Primary Care Provider [phone] Viktor November Unavailable Kishore Dorsey MD Unavailable Raheel Gee Unavailable [phone] Riya Fulton Unavailable Sergio Hackett Unavailable Unavailable Dominga Silva PharmD Unavailable Reason for Visit * Reason Onset Date Comments chartprep 10/17/2024 Encounter Details Date Type Department Care Team (Late st Contact Info) Description 10/17/2024 Telephone [facility] MEDICINE 230 [place] [address] Ashley Frankel MD [address] [place], [place] [phone] chartprep Social History Tobacco Use Types Packs/Day [...] the past 12 months, has t he eReceipts, gas, oil or water [employer] threatened to shut off services in your [...] Description 10/28/2024 9:00 AM EST Medication Management [facility] [address] [place] [address] Dominga Silva, PharmD [address] [place] [address] 12/09/2024 8:00 AM EDT Office Visit [facility] ADULT DENTAL [address] [place] [address] Jackie Peacock 01/23/2025 9:45 AM EDT Office Visit [facility] [address] [place] [address] Ashley Frankel MD [address] [place] [address] documented as of this encounter Visit Diagnoses Not on filedocumented in this encounter Additional Health Concerns Assessment Noted Time PHQ-9 Depression Total Score: 0 07/17/20 10:33 AM EST documented as of this encounter Care Teams Windsmith Relationship Specialty Start Date End Date Ashley Frankel MD [address] [place] [address] PCP - General Family Medicine 08/28/18November 11 [facility] 3rd [place] [address] Gastroenterology 07/17/24 Kishore Dorsey MD 10 [facility] [address] [place] [address] Urology 07/17/24 Raheel Gee 5 [place], [place] 1040 Pulmonary Disease 07/17/24 Riya Fulton [address] [address] Cardiology 07/17/24 Sergio Hackett [address] [place] [address] Orthopaedic Surgery 07/17/24 Dominga Silva, AnanthD [address] [place] [address] Pharmacist Internal Medicine 07/22/24 [facility] 10/10/24 documented as of this encounter
--- OUTSIDE RECORDS SUMMARY | 2024-10-24 19:25 | XMS_ITS | Encounter Summary ---
Author Organization [employer] Address [address] [place] [address] 7t [place] [address] Care Team Providers Care Behavioral Health Rn Name Role Phone Ashley Frankel MD Primary Care Provider [phone]- [phone] Vikotr November Unavailable Kishore Dorsey MD Unavailable [phone] Raheel Gee Unavailable [phone] Riya Fulton Unavailable Sergio Hackett Unavailable Unavailable Dominga Silva PharmD Unavailable [phone] Reason for Visit * Reason Onset Date Comments Appointment Request 08/05/2024 Encounter Details Date Type Department Care Team (Late st Contact Info) Description 08/05/2024 Telephone [facility] MEDICINE [address] [place] [address] Ashley Frankel MD 230 [place] [address] Appointment Request Social History Tobacco [...] the past 12 months, has t he [employer], gas, oil or water [employer] threatened to shut off services in your [...] Description 10/28/2024 9:00 AM EST Medication Management [facility] [address] [place] [address] Dominga Silva, PharmD [address] [place] [address] 12/09/2024 8:00 AM EDT Office Visit [facility] ADULT DENTAL [address] [place] [address] Jackie Peacock 01/23/2025 9:45 AM EDT Office Visit [facility] [address] [place] [address] Ashley Frankel MD [address] [place] [address] documented as of this encounter Visit Diagnoses Not on filedocumented in this encounter Additional Health Concerns Assessment Noted Time PHQ-9 Depression Total Score: 0 07/17/20 24 10:33 AM EST documented as of this encounter Care Teams Behavioral Health Rn Relationship Specialty Start Date End Date Ashley Frankel MD 230 [place] [address] PCP - General Family Medicine 08/28/18November [address] 3rd [place] [address] Gastroenterology 07/17/24 Kishore Dorsey MD [address] [place] [address] Urology 07/17/24 Raheel Gee 5 [place], [place] 10[address] Pulmonary Disease 07/17/24 Riya Fulton 11 [facility] 3rd [place] [address] Cardiology 07/17/24 Sergio Hackett [address] [place] [address] Orthopaedic Surgery 07/17/24 Dominga Silva, Mehrdad 230 [place] [address] Pharmacist Internal Medicine 07/22/24 [facility] 10/10/24 documented as of this encounter
--- OUTSIDE RECORDS SUMMARY | 2024-10-24 19:25 | XMS_ITS | Encounter Summary ---
Author Organization [employer] Address [address] [place] [address] 7t [place] [address] Care Team Providers Care Relocation Counselor Name Role Phone Ashley Frankel MD Primary Care Provider [phone] Viktor November Unavailable Kishore Dorsey MD Unavailable Raheel Gee Unavailable [phone] Riya Fulton Unavailable Sergio Hackett Unavailable Unavailable Dominga Silva PharmD Unavailable Encounter Details Date Type Department Care Team (Latest Contact Info) Description 07/04/[address] [facility] CONVERSIONS Dental, Provider, DDS Social [...] 9:00 AM EST Medication Management [facility] MEDICINE [address] [place], [place] [phone] Dominga Silva, PharmD 230 [place] [address] 12/09/2024 8:00 AM EDT Office Visit [facility] ADULT DENTAL [address] [place] [address] Jackie Peacock 01/23/2025 9:45 AM EDT Office Visit [facility] MEDICINE [address] [place] [address] Ashley Frankel MD 230 [place] [address] documented as of this encounter Visit Diagnoses Not on filedocumented in this encounter Care Teams Relocation Counselor Relationship Specialty Start Date End Date Ashley Frankel MD 230 [place] [address] PCP - General Family Medicine 08/28/18 Viktor November [address] [address] Gastroenterology 07/17/24 Kishore Dorsey MD 10 [facility] [address] [place] [address] Urology 07/17/24 Raheel Gee 5 [place], [place] 1040 Pulmonary Disease 07/17/24 Riya Fulton [address] [address] Cardiology 07/17/24 Sergio Hackett [address] [place] [address] Orthopaedic Surgery 07/17/24 Dominga Silva, Mehrdad 230 [place] [address] Pharmacist Internal Medicine 07/22/24 [facility] 10/10/24 documented as of this encounter
--- OUTSIDE RECORDS SUMMARY | 2024-10-24 19:25 | XMS_ITS | Encounter Summary ---
Author Organization [employer] Address 75 [facility] 7t [place] [address] Care Team Providers Care Banana Expert Name Role Phone Ashley Frankel MD Primary Care Provider [phone] Hoang, November Unavailable Kishore Dorsey MD Unavailable Raheel Gee Unavailable [phone] Riya Fulton Unavailable Sergio Hackett Unavailable Unavailable Dominga Silva PharmD Unavailable [phone] Encounter Details Date Type Department Care Team (Late st Contact Info) Description 10/24/2024 Orders Only [facility] External Provider, [facility] [...] 9:00 AM EST Medication Management [facility] MEDICINE [address] [place] [address] Dominga Silva PharmD [address] [place] [address] 12/09/2024 8:00 AM EDT Office Visit [facility] ADULT DENTAL [address] [place] [address] [phone] Jackie Peacock 01/23/2025 9:45 AM EDT Office Visit [facility] MEDICINE [address] [place] [address] Ashley Frankel MD 230 [place] [address] documented as of this encounter Procedures Procedure Name Priority Date/Time Associated Diagnosis Comments HIGH SENSITIVITY TROPONIN I Routine 10/24/2024 4:58 PM EST HIGH SENSITIVITY TROPONIN I Routine 10/24/2024 2:30 PM EST CBC WITH AUTO DIFFERENTIAL Routine 10/24/2024 2:30 PM EST APTT Routine 10/24/2024 2:30 PM EST PROTHROMBIN TIME-INR Routine 10/24/2024 2:30 PM EST B TYPE NATRIURETIC PEPTIDE (BNP) Routine 10/24/2024 2:30 PM EST COMPREHENSIVE METABOLIC PANEL Routine 10/24/2024 2:30 PM EST XR CHEST 1 VIEW Routine 10/24/2024 1:22 PM EST documented in this encounter Results * High Sensitivity Troponin I (10/24/2024 4:58 PM EST) TROPONIN I HIGH SENSITIVITY 3.4 <3.5 - 35.0 ng/L [facility] Comment:The Schmidt high sens itivity Troponin-I results should beused in conjunction with other diagnostic information suchas ECG, clinical observations and information, and patientsymptoms to aid in the diagnosis of [place]. 10/24/2024 4:58 PM EST 10/24/2024 5:02 PM EST us Generic External Data Provider LAB BLOOD ORDERAB LES Final Result Performing Organization Address City/[facility]/ZIP Co de Phone Number [facility] [address] [place] [address] [phone] * High Sensitivity Troponin I (10/24/2024 2:30 PM EST) TROPONIN I HIGH SENSITIVITY 4.1 <3.5 - 35.0 ng/L [facility] Comment:The Schmidt high sens itivity Troponin-I results should beused in conjunction with other diagnostic information suchas ECG, clinical observations and information, and patientsymptoms to aid in the diagnosis of FL. 10/24/2024 2:30 PM EST 10/24/2024 2:33 PM EST us Generic External Data Provider LAB BLOOD ORDERAB LES Final Result Performing Organization Address City/[facility]/ZIP Co de Phone Number [facility] [address] [place] [phone] * B Type Natriuretic Peptide (BNP) (10/24/2024 2:30 PM EST) B Type Natriuretic Peptide 32 <100 pg/mL [facility] Comment:For those patients w ho are being treated with Natrecor(nesiritide, recombinant BNP), BNP testing should beperformed at least two hours post treatment in order toensure that only endogenous levels of BNP are detected. 10/24/2024 2:30 PM EST 10/24/2024 2:33 PM EST us Generic External Data Provider LAB BLOOD ORDERAB LES Final Result [facility] [address] [place] [phone] * (ABNORMAL) Comprehensive Metabolic Panel (10/24/2024 2:30 PM EST) Sodium 141 135 - 145 mmol/L [facility] Potassium 3.8 3.3 - 5.1 mmol/L [facility] Chloride 108 96 - 108 mmol/L [facility] Carbon Dioxide 28 22 - 29 mmol/L [facility] Anion Gap 9(L) 12 - 20 [facility] Urea Nitrogen (BUN) 12 9 - 16 mg/dL [facility] Creatinine, Serum 0.91 0.5 - 1.4 mg/dL [facility] Creatinine Clr Calc Pharmacy 80.7 [facility] Comment:eGFR (calculated fro m the MDRD study equation) and eCrCl(calculated from the Cockcroft-Gault equation) are based ondifferent parameters and may not yield comparable results.If eCrCl result is absurd, please check patient'sheight/weight. Estimated Glomerular Filt Rate >60 [facility] Comment:Chronic Kidney Disea se: Estimated GFR < 60 mL/min/1.33v4Bzrkrh Kidney Disease: Estimated GFR < 15 mL/min/1.73m2 Glucose 197(H) 60 - 115 mg/dL [facility] Calcium 8.9 8.4 - 10.2 mg/dL [facility] Bilirubin, Total 0.7 0.0 - 1.0 mg/dL [facility] Aspartate Amino Transferase 22 5 - 37 U/L [facility] Alanine Aminotransferase 12 0 - 40 U/L [facility] Total Protein 6.8 6.5 - 8.0 g/dL [facility] Albumin Level 3.9 3.5 - 5.0 g/dL [facility] Alkaline Phosphatase 88 39 - 117 U/L [facility] 10/24/2024 2:30 PM EST 10/24/2024 2:33 PM EST Generic External Data Provider LAB BLOOD ORDERAB LES Final Result Performing Organization Address [facility] Co de Phone Number [facility] [address] [place] [phone] * Partial Thromboplastin Time, Activated (APTT) (10/24/2024 2:30 PM EST) Partial Thromboplastin Time 35.7 26.0 - 36.8 SEC [facility] Comment:For information rega rding the monitoring of direct thrombininhibitors, please refer to Pharmacy. 10/24/2024 2:30 PM EST 10/24/2024 2:33 PM EST us Generic External Data Provider LAB BLOOD ORDERAB LES Final Result Performing Organization Address [facility] Co de Phone Number [facility] [address] [place] [phone] * Prothrombin Time-INR (10/24/2024 2:30 PM EST) Prothrombin Time 10.9 10.9 - 12.4 SEC [facility] INTERNATIONAL NORM RATIO 0.9 0.9 - 1.1 [facility] Comment:INTERNATIONAL NORMAL IZED RATIO (INR) [...] Provider LAB BLOOD ORDERAB LES Final Result [facility] [address] [place] [address] [phone] * (ABNORMAL) CBC auto differential (10/24/2024 2:30 PM EST) White Blood Count 5.1 4.8 - 10.8 X10*3/uL [facility] Red Blood Count 4.31(L) 4.60 - 5.80 X10*6/uL [facility] Hemoglobin 13.0(L) 14.0 - 18.0 g/dl [facility] Hematocrit 39.1(L) 42.0 - 52.0 % [facility] Mean Corpuscular Volume 90.7 80.0 - 98.0 fL [facility] Mean Corpuscular Hemoglobin 30.2 27.0 - 33.0 pg [facility] Mean Corpuscular HGB Conc 33.2 31.0 - 36.0 g/dl [facility] Red Cell Distribution Width 12.6 11.0 - 16.0 % [facility] Platelet Count 290 160 - 400 X10*3/uL [facility] Mean Platelet Volume 9.7 9.4 - 12.4 fL [facility] Neutrophils Percent Auto 68.7 45 - 73 % [facility] Imm Gran Pct Auto 0.2 0.0 - 0.4 % [facility] Lymphocytes Percent Auto 19.5(L) 20 - 40 % [facility] Monocytes Percent Auto 9.8 2 - 11 % [facility] Eosinophils Percent Auto 1.2 0 - 4 % [facility] Basophils Percent Auto 0.6 0 - 2 % [facility] NRBC Pct Auto 0.0 0.0 - 0.2 /100WBC [facility] Neutrophils Absolute Auto 3.5 2.0 - 8.3 x10*3/uL [facility] Imm Gran Abs Auto 0.01 0.00 - 0.03 X10*3/uL [facility] Lymphocytes Absolute Auto 1.0(L) 1.2 - 4.9 X10*3/uL [facility] Monocytes Absolute Auto 0.5 0.1 - 1.2 X10*3/uL [facility] Eosinophils Absolute Auto 0.1 0.0 - 0.4 X10*3/uL [facility] Basophils Absolute Auto 0.0 0.0 - 0.2 X10*3/uL [facility] NRBC Abs Auto 0.000 0.0 - 0.012 X10*3/uL [facility] 10/24/2024 2:30 PM EST 10/24/2024 2:33 PM EST us Generic External Data Provider LAB BLOOD ORDERAB LES Final Result Performing Organization Address City/State/[facility] Co de Phone Number [facility] [address] [place] [phone] * XR Chest 1 View (10/24/2024 1:22 PM EST) Anatomical Region Laterality Modality Chest Radiographic Hannah ging 10/24/2024 1:22 PM EST Narrative 10/24/2024 1:45 PM EST ? [facility] ?[address] ?[place] [address] ?XRay Report ? Signed ? Patient: Krista,Bobby ?MR#: [id number] ? : 1965 ?Acct:[id number] ? Age/Sex: 59 / M ?ADM Date: 02/27/25 ? Loc: HO.ED ? Attending Dr: ? Ordering Physician: Alexy Yang ?? Date of Service: 10/24/24 ?? Procedure(s): XR chest 1V ?? Accession Number(s): [id number] ? cc: Alexy Yang; Ashley Frankel MD [...] Roldan MD ??10/24/2024 01:42 PM ?? EST ? Dictated By: ?Jeffrey Downing MD ? Signed By: ?<Electronically signed by Jeffrey Weems MD in OV> ? 10/24/24 1342 ? DD/ 1322 ? TD/TT: 10/24/24 1336 ? Party Plan Dealer: ? Procedure Note Donjacobter, Image - 10/24/2024 [place] [address] XRay Report Signed Patient: Pierce Velasco#: [id number] : 1965Acct:[id number] Age/Sex: 59 / MADM Date: 10/24/24 Loc: HO.ED Attending Dr: Ordering Physician: Alexy Yang Date of Service: 10/24/24 Procedure(s): XR chest 1V Accession Number(s): [id number] cc: Alexy Yang; Ashley Frankel MD EXAMINATION: [...] 10/24/24 1342 DD/ 1322 TD/TT: 10/24/24 1336 Party Plan Dealer: [facility] External Provider IMG XR PROCEDURES Final Result documented in this encounter Visit Diagnoses Not on filedocumented in this encounter Additional Health Concerns Assessment Noted Time PHQ-9 Depression Total Score: 0 07/17/20 10:33 AM EST documented as of this encounter Care Teams Banana Expert Relationship Specialty Start Date End Date Ashley Frankel MD 230 [place] [address] PCP - General Family Medicine 08/28/18November [address] [place] [address] Gastroenterology 07/17/24 Kishore Dorsey MD 10 [facility] [address] [place] [address] Urology 07/17/24 Raheel Gee 5 [place], [place] 1040 Pulmonary Disease 07/17/24 Riya Fulton [address] [place] [address] Cardiology 07/17/24 Sergio Hackett [address] [place] [address] Orthopaedic Surgery 07/17/24 Dominga Silva, Mehrdad 230 [place] [address] Pharmacist Internal Medicine 07/22/24 [facility] 10/10/24 documented as of this encounter
--- OUTSIDE RECORDS SUMMARY | 2024-10-24 19:25 | XMS_ITS | Encounter Summary ---
Author Organization [employer] Address 75 [facility] 7t [place] [address] Care Team Providers Care Doctor Podiatric Medicine Name Role Phone Ashley Frankel MD Primary Care Provider [phone] Hoang, November Unavailable Kishore Dorsey MD Unavailable Raheel Gee Unavailable [phone] Riya Fulton Unavailable Sergio Hackett Unavailable Unavailable Dominga SilvaD Unavailable Encounter Details Date Type Department Care Team (Late st Contact Info) Description 10/10/2024 Telephone [facility] 230 [place], [place] [phone] Ashley Frankel MD 230 [place], [place] [phone] Social History Tobacco Use Types Packs/Day Years [...] PM EST Pt reports he was at [facility] and wants to know the lab results. documented in this encounter Plan of Treatment Upcoming Encounters Date Type Department Care Team (Late st Contact Info) Description 10/28/2024 9:00 AM EST Medication Management [facility] MEDICINE [address] [place] [address] Dominga Silva, AnanthD [address] [place] [address] 12/09/2024 8:00 AM EDT Office Visit [facility] ADULT DENTAL [address] [place] [address] Jackie Peacock 01/23/2025 9:45 AM EDT Office Visit [facility] MEDICINE [address] [place] [address] Ashley Frankel MD [address] [place] [address] documented as of this encounter Visit Diagnoses Not on filedocumented in this encounter Additional Health Concerns Assessment Noted Time PHQ-9 Depression Total Score: 0 07/17/20 10:33 AM EST documented as of this encounter Care Teams Doctor Podiatric Medicine Relationship Specialty Start Date End Date Ashley Frankel MD 230 [place] [address] PCP - General Family Medicine 08/28/[address] [place] [address] Gastroenterology 07/17/24 Kishore Dorsey MD [address] [place] [address] Urology 07/17/24 Raheel Gee 5 [place], [place] 10[address] Pulmonary Disease 07/17/24 Riya Fulton 11 [facility] 3rd [place] [address] Cardiology 07/17/24 Sergio Hackett 300 [facility] [address] [place] [address] Orthopaedic Surgery 07/17/24 Dominga Silva PharmD 230 [place] [address] Pharmacist Internal Medicine 07/22/24 [facility] 10/10/24 documented as of this encounter
--- OUTSIDE RECORDS SUMMARY | 2024-10-24 19:25 | XMS_ITS | Encounter Summary ---
Author Organization [employer] Address [address] [place] [address] 7t [place] [address] Care Team Providers Care Sugar Chipper Machine Operator Name Role Phone Ashley Frankel MD Primary Care Provider [phone] Viktor November Unavailable Kishore Dorsey MD Unavailable [phone] Raheel Gee Unavailable [phone] Riya Fulton Unavailable Sergio Hackett Unavailable Unavailable Dominga Silva PharmD Unavailable Encounter Details Date Type Department Care Team (Late st Contact Info) Description 07/25/2022 Abstract [facility] ADULT DENTAL 230 [place] [address] Dental, Provider, DDS Social History Tobacco Use [...] Description 10/28/2024 9:00 AM EST Medication Management [facility] 230 [place] [address] Dominga Silva, PharmD 230 [place] [address] 12/09/2024 8:00 AM EDT Office Visit [facility] ADULT DENT[facility] [address] [place] [address] Jackie Peacock 01/23/2025 9:45 AM EDT Office Visit [facility] [address] [place] [phone] Ashley Frankel MD [address] [place] [address] documented as of this encounter Procedures Procedure [...] on filedocumented in this encounter Care Teams Sugar Chipper Machine Operator Relationship Specialty Start Date End Date Ashley Frankel MD [address] [place] [address] PCP - General Family Medicine 08/28/18 Viktor Sonya 11 [facility] 3rd [place] [address] Gastroenterology 07/17/24 Kishore Dorsey MD [address] [place] [address] Urology 07/17/24 Raheel Gee 5 [facility] [place] 1040 Pulmonary Disease 07/17/24 Riya Fulton [address] 3rd [place] [address] Cardiology 07/17/24 Sergio Hackett [address] [facility] [address] [place] [address] Orthopaedic Surgery 07/17/24 Dominga Silva, Mehrdad 230 [place] [address] Pharmacist Internal Medicine 07/22/24 [facility] 10/10/24 documented as of this encounter
--- OUTSIDE RECORDS SUMMARY | 2024-10-24 19:25 | XMS_ITS | Encounter Summary ---
Author Organization [employer] Address [address] [place] [address] 7t [place] [address] Care Team Providers Care Lock Operator Name Role Phone Ashley Frankel MD Primary Care Provider [phone] Viktor November Unavailable Kishore Dorsey MD Unavailable Raheel Gee Unavailable [phone] Riya Fulton Unavailable Sergio Hackett Unavailable Unavailable Dominga Silva PharmD Unavailable [phone] Encounter Details Date Type Department Care Team (Latest Contact Info) Description 06/08/2022 Abstract [facility] Dental, Provider, DDS Social History Tobacco [...] 10/28/2024 9:00 AM EST Medication Management [facility] 230 [place], [place] [phone] Dominga Silva, PharmD 230 [place] [address] 12/09/2024 8:00 AM EDT Office Visit [facility] 230 [place] [address] Jackie Peacock 01/23/2025 9:45 AM EDT Office Visit [facility] 230 [place] [address] Ashley Frankel MD 230 [place] [address] documented as of this encounter Visit Diagnoses Not on filedocumented in this encounter Care Teams Lock Operator Relationship Specialty Start Date End Date Ashley Frankel MD 230 [place] [address] PCP - General Family Medicine 08/28/18 Viktor November [address] [address] Gastroenterology 07/17/24 Kishore Dorsey MD 10 [facility] [address] [place] [address] Urology 07/17/24 Raheel Gee 5 [place], [place] 10[address] Pulmonary Disease 07/17/24 Riya Fulton [address] [address] Cardiology 07/17/24 Sergio Hackett [address] [place] [address] Orthopaedic Surgery 07/17/24 Dominga Silva, Mehrdad 230 [place] [address] Pharmacist Internal Medicine 07/22/24 [facility] 10/10/24 documented as of this encounter
--- OUTSIDE RECORDS SUMMARY | 2024-10-24 19:25 | XMS_ITS | Encounter Summary ---
Author Organization [employer] Address [address] [facility] 7t [place] [address] Care Team Providers Care Nuclear Reactor Operator Name Role Phone Ashley Frankel MD Primary Care Provider [phone]- [phone] Hoang, November Unavailable Kishore Dorsey MD Unavailable Raheel Gee Unavailable [phone] Riya Fulton Unavailable Sergio Hackett Unavailable [...] Description 10/28/2024 9:00 AM EST Medication Management [facility] MEDICINE [address] [place] [address] Dominga Silva PharmD [address] [place] [address] 12/09/2024 8:00 AM EDT Office Visit [facility] ADULT DENTAL [address] [place] [address] 15686 Jackie Peacock 01/23/2025 9:45 AM EDT Office Visit [facility] MEDICINE [address] [place] [address] 28609 Ashley Frankel MD [address] [place] [address] documented as of this encounter Procedures Procedure Name Priority Date/Time Associated Diagnosis Comments CBC WITH AUTO DIFFERENTIAL Routine 10/10/2024 12:45 AM EST LIPASE Routine 10/10/2024 12:45 AM EST COMPREHENSIVE METABOLIC PANEL Routine 10/10/2024 12:45 AM EST documented in this encounter Results * Lipase (10/10/2024 12:45 AM EST) Lipase 36 8 - 78 U/L [facility] 10/10/2024 12:4 5 AM EST 10/10/2024 12:47 AM EST us Generic External Data Provider LAB BLOOD ORDERAB LES Final Result [facility] [address] [place] [address] [phone] * (ABNORMAL) Comprehensive Metabolic Panel (10/10/2024 12:45 AM EST) Sodium 141 135 - 145 mmol/L [facility] Potassium 3.8 3.3 - 5.1 mmol/L [facility] Chloride 106 96 - 108 mmol/L [facility] Carbon Dioxide 26 22 - 29 mmol/L [facility] Anion Gap 13 12 - 20 [facility] Urea Nitrogen (BUN) 16 9 - 16 mg/dL [facility] Creatinine, Serum 1.02 0.5 - 1.4 mg/dL [facility] Creatinine Clr Calc Pharmacy 72.0 [facility] Comment:eGFR (calculated fro m the MDRD study equation) and eCrCl(calculated from the Cockcroft-Gault equation) are based ondifferent parameters and may not yield comparable results.If eCrCl result is absurd, please check patient'sheight/weight. Estimated Glomerular Filt Rate >60 [facility] Comment:Chronic Kidney Disea se: Estimated GFR < 60 mL/min/1.50h9Tyzmuj Kidney Disease: Estimated GFR < 15 mL/min/1.73m2 Glucose 173(H) 60 - 115 mg/dL [facility] Calcium 9.6 8.4 - 10.2 mg/dL [facility] Bilirubin, Total 0.5 0.0 - 1.0 mg/dL [facility] Aspartate Amino Transferase 21 5 - 37 U/L [facility] Alanine Aminotransferase 14 0 - 40 U/L [facility] Total Protein 7.3 6.5 - 8.0 g/dL [facility] Albumin Level 4.1 3.5 - 5.0 g/dL [facility] Alkaline Phosphatase 92 39 - 117 U/L [facility] 10/10/2024 12:4 5 AM EST 10/10/2024 12:47 AM EST us Generic External Data Provider LAB BLOOD ORDERAB LES Final Result [facility] [address] [place], [place] [phone] * (ABNORMAL) CBC auto differential (10/10/2024 12:45 AM EST) White Blood Count 6.5 4.8 - 10.8 X10*3/uL [facility] Red Blood Count 4.40(L) 4.60 - 5.80 X10*6/uL [facility] Hemoglobin 13.6(L) 14.0 - 18.0 g/dl [facility] Hematocrit 38.7(L) 42.0 - 52.0 % [facility] Mean Corpuscular Volume 88.0 80.0 - 98.0 fL [facility] Mean Corpuscular Hemoglobin 30.9 27.0 - 33.0 pg [facility] Mean Corpuscular HGB Conc 35.1 31.0 - 36.0 g/dl [facility] Red Cell Distribution Width 12.7 11.0 - 16.0 % [facility] Platelet Count 275 160 - 400 X10*3/uL [facility] Mean Platelet Volume 10.0 9.4 - 12.4 fL [facility] Neutrophils Percent Auto 60.1 45 - 73 % [facility] Imm Gran Pct Auto 0.2 0.0 - 0.4 % [facility] Lymphocytes Percent Auto 25.9 20 - 40 % [facility] Monocytes Percent Auto 11.3(H) 2 - 11 % [facility] Eosinophils Percent Auto 1.9 0 - 4 % [facility] Basophils Percent Auto 0.6 0 - 2 % [facility] NRBC Pct Auto 0.0 0.0 - 0.2 /100WBC [facility] Neutrophils Absolute Auto 3.9 2.0 - 8.3 x10*3/uL [facility] Imm Gran Abs Auto 0.01 0.00 - 0.03 X10*3/uL [facility] Lymphocytes Absolute Auto 1.7 1.2 - 4.9 X10*3/uL [facility] Monocytes Absolute Auto 0.7 0.1 - 1.2 X10*3/uL [facility] Eosinophils Absolute Auto 0.1 0.0 - 0.4 X10*3/uL [facility] Basophils Absolute Auto 0.0 0.0 - 0.2 X10*3/uL [facility] NRBC Abs Auto 0.000 0.0 - 0.012 X10*3/uL [facility] 10/10/2024 12:4 5 AM EST 10/10/2024 12:47 AM EST us Generic External Data Provider LAB BLOOD ORDERAB LES Final Result [facility] [address] [place] [address] [phone] documented in this encounter Visit Diagnoses Not on filedocumented in this encounter Additional Health Concerns Assessment Noted Time PHQ-9 Depression Total Score: 0 07/17/20 10:33 AM EST documented as of this encounter Care Teams Nuclear Reactor Operator Relationship Specialty Start Date End Date Ashley Frankel MD [address] [place] [address] PCP - General Family Medicine 08/28/18November [address] 3rd [place] [address] Gastroenterology 07/17/24 Kishore Dorsey MD [address] [place] [address] Urology 07/17/24 Raheel Gee [address] [place], [place] 1040 Pulmonary Disease 07/17/24 Riya Fulton 11 [facility] 3rd [place] [address] Cardiology 07/17/24 Sergio Hackett [address] [place] [address] Orthopaedic Surgery 07/17/24 Dominga Silva, AnanthD [address] [place] [address] 19647 Pharmacist Internal Medicine 07/22/24 De. [facility] Psychiatry 10/10/24 documented as of this encounter
--- OUTSIDE RECORDS SUMMARY | 2024-10-24 19:25 | XMS_ITS | Encounter Summary ---
Author Organization [employer] Address [address] [facility] 7t [place] [address] Care Team Providers Care Ui Application Developer Name Role Phone Ashley Frankel MD Primary Care Provider [phone]- [phone] Hoang, November Unavailable Kishore Dorsey MD Unavailable [phone] Raheel Gee Unavailable [phone] Riya Fulton Unavailable Sergio Hackett Unavailable Unavailable Dominga Silva PharmD Unavailable Reason for Visit * Reason Comments Med Change Request Encounter Details Date Type Department Care Team (Late st Contact Info) Description 07/12/2023 Refill [facility] MEDICINE [address] [place], [place] [phone] Ashley Frankel MD [address] [place], [place] [phone] Social History Tobacco Use Types Packs/Day Years [...] 10/28/2024 9:00 AM EST Medication Management [facility] MED[facility]INE [address] [place] [address] Dominga Silva, PharmD [address] [place] [address] 12/09/2024 8:00 AM EDT Office Visit [facility] ADULT DENTAL [address] [place] [address] Jackie Peacock 01/23/2025 9:45 AM EDT Office Visit [facility] [address] [place] [address] 498[address] Ashley Frankel MD [address] [place] [address] documented as of this encounter Visit Diagnoses Not on filedocumented in this encounter Care Teams Ui Application Developer Relationship Specialty Start Date End Date Ashley Frankel MD [address] [place] [address] 73585 PCP - General Family Medicine 08/28/18HoangNovember [address] 3rd [place] [address] Gastroenterology 07/17/24 Kishore Dorsey MD [address] [place] [address] Urology 07/17/24 Raheel Gee 5 [place], [place] 1040 Pulmonary Disease 07/17/24 Riya Fulton [address] 3rd [place] [address] Cardiology 07/17/24 Sergio Hackett 300 [facility] 2nd [place] [address] Orthopaedic Surgery 07/17/24 Dominga Silva, AnanthD [address] [place] [address] Pharmacist Internal Medicine 07/22/24 [facility] 10/10/24 documented as of this encounter
--- OUTSIDE RECORDS SUMMARY | 2024-10-24 19:26 | XMS_ITS | Encounter Summary ---
Author Organization [employer] Address 75 [facility] 7t [place] [address] Care Team Providers Care Proof Technician Helper Name Role Phone Ashley Frankel MD Primary Care Provider [phone]- [phone] Viktor November Unavailable Kishore Dorsey MD Unavailable Raheel Gee Unavailable [phone] Riya Fulton Unavailable Sergio Hackett Unavailable Unavailable Dominga Silva PharmD Unavailable [phone] Reason for Visit * Reason Comments Constipation Encounter Details Date Type Department Care Team (Late st Contact Info) Description 09/28/2024 11:00 AM EST Office Visit [facility] [address] [place] [address] [phone] Name, MD Les [address] [place] [address] [phone] Constipation, unspecified constipation type (Primary Dx); Primary [...] the past 12 months, has t he [employer], gas, oil or water [employer] threatened to shut off services in your [...] Description 10/28/2024 9:00 AM EST Medication Management [facility] [address] [place] [address] Dominga Silva, PharmD [address] [place] [address] 107[address] 12/09/2024 8:00 AM EDT Office Visit [facility] ADULT DENTAL [address] [place] [address] 25[address] Jackie Peacock 01/23/2025 9:45 AM EDT Office Visit [facility] [address] [place] [address] 36693 Ashley Frankel MD [address] [place] [address] documented as of this encounter Visit Diagnoses Diagnosis Constipation, unspecified constipation type- Primary Primary hypertension Unspecified essential hypertension documented in this encounter Additional Health Concerns Assessment Noted Time PHQ-9 Depression Total Score: 0 07/17/20 10:33 AM EST documented as of this encounter Care Teams Proof Technician Helper Relationship Specialty Start Date End Date Ashley Frankel MD 230 [place] [address] PCP - General Family Medicine 08/28/18November [address] [address] Gastroenterology 07/17/24 Kishore Dorsey MD 10 [facility] [address] [place] [address] Urology 07/17/24 Raheel Gee 5 [place], [place] 1040 Pulmonary Disease 07/17/24 Riya Fulton [address] [address] Cardiology 07/17/24 Sergio Hackett [address] [place] [address] Orthopaedic Surgery 07/17/24 Dominga Silva, Mehrdad [address] [place] [address] Pharmacist Internal Medicine 07/22/24 documented as of this encounter
--- OUTSIDE RECORDS SUMMARY | 2024-10-24 19:26 | XMS_ITS | Encounter Summary ---
Author Organization [employer] Address [address] [place] [address] 7t [place] [address] Care Team Providers Care Automatic Nailing Machine Feeder Name Role Phone Ashley Frankel MD Primary Care Provider [phone] November Unavailable Kishore Dorsey MD Unavailable [phone] Raheel Gee Unavailable [phone] Riya Fulton Unavailable Sergio Hackett Unavailable Unavailable Dominga Silva PharmD Unavailable Encounter Details Date Type Department Care Team (Late st Contact Info) Description 02/01/2023 Telephone [facility] MEDICINE [address] [place], [place] [phone] Ashley Frankel MD 230 [place], [place] [phone] Social History Tobacco Use Types Packs/Day Years [...] 9:00 AM EST Medication Management [facility] MEDICINE [address] [place] [address] Dominga Silva PharmD 230 [place] [address] 12/09/2024 8:00 AM EDT Office Visit [facility] ADULT DENTAL [address] [place] [address] Jackie Peacock 01/23/2025 9:45 AM EDT Office Visit [facility] MEDICINE [address] [place] [address] Ashley Frankel MD [address] [place] [address] documented as of this encounter Visit Diagnoses Not on filedocumented in this encounter Care Teams Automatic Nailing Machine Feeder Relationship Specialty Start Date End Date Ashley Frankel MD [address] [place] [address]261 PCP - General Family Medicine 08/28/18November 11 [facility] 3rd [place] [address] Gastroenterology 07/17/24 Kishore Dorsey MD [address] [place] [address] Urology 07/17/24 Raheel Gee 5 [place], [place] 1040 Pulmonary Disease 07/17/24 Riya Fulton [address] [place] [address] Cardiology 07/17/24 Sergio Hackett [address] 2nd [place] [address] Orthopaedic Surgery 07/17/24 Dominga Silva, Mehrdad [address] [place] [address] Pharmacist Internal Medicine 07/22/24 [facility] 10/10/24 documented as of this encounter
--- OUTSIDE RECORDS SUMMARY | 2024-10-24 19:26 | XMS_ITS | Encounter Summary ---
Author Organization [employer] Address 75 [facility] 7t [place] [address] Care Team Providers Care Making Machine Catcher Name Role Phone Ashley Frankel MD Primary Care Provider [phone]- [phone] November Unavailable Kishore Dorsey MD Unavailable [phone] Raheel Gee Unavailable [phone] Riya Fulton Unavailable Sergio Hackett Unavailable [...] Description 10/28/2024 9:00 AM EST Medication Management [facility] MEDICINE [address] [place] [address] Dominga Silva PharmD [address] [place] [address] 12/09/2024 8:00 AM EDT Office Visit [facility] ADULT DENTAL [address] [place] [address] Jackie Peacock 01/23/2025 9:45 AM EDT Office Visit [facility] MEDICINE [address] [place] [address] 394[address] Ashley Frankel MD [address] [place] [address] documented as of this encounter Visit Diagnoses Not on filedocumented in this encounter Additional Health Concerns Assessment Noted Time PHQ-9 Depression Total Score: 0 07/17/20 24 10:33 AM EST documented as of this encounter Care Teams Making Machine Catcher Relationship Specialty Start Date End Date Ashley Frankel MD [address] [place] [address] 13537 PCP - General Family Medicine 08/28/18 Sonya Hoang [address] 3rd [place] [address] Gastroenterology 07/17/24 Kishore Dorsey MD [address] [place] [address] Urology 07/17/24 Raheel Gee 5 [place], [place] 1040 Pulmonary Disease 07/17/24 Riya Fulton [address] 3rd [place] [address] Cardiology 07/17/24 Sergio Hackett 300 [facility] 2nd [place] [address] Orthopaedic Surgery 07/17/24 Dominga Silva, AnanthD 230 [place] [address] Pharmacist Internal Medicine 07/22/24 documented as of this encounter
--- OUTSIDE RECORDS SUMMARY | 2024-10-24 19:26 | XMS_ITS | Encounter Summary ---
Author Organization [employer] Address 75 [facility] 7t [place] [address] Care Team Providers Care Pharmacy Informatics Specialist Name Role Phone Ashley Frankel MD Primary Care Provider [phone]- [phone] November Unavailable Kishore Dorsey MD Unavailable [phone] Raheel Gee Unavailable [phone] Riya Fulton Unavailable Sergio Hackett Unavailable Unavailable Dominga Silva PharmD Unavailable [phone] Reason for Visit * Reason Comments Scaling And Root Planing Encounter Details Date Type Department Care Team (Late st Contact Info) Description 05/29/2024 11:00 AM EDT Office Visit [facility] ADULT DENTAL [address] [place] [address] Jackie Peacock Dental calculus (Primary Dx); Dental [...] Timeout Time: 1118 (Dental SRP Adult) Location: [facility] Tooth: UL and LL Procedure: Scaling and Root Planing Verified the above with patient, assistant scientist, and provider. Confirmed via patient's chart, intraorally and by radiographs. Steel Box Toe Inserter: not applicable Medical Hx: Vitals: There were [...] patient including brushing technique and flossing. Recommendations: [place] two times daily, modified burgses technique, Floss daily, Electric toothbrush, Soft bristle toothbrush, [place] Tongue Recall Frequency: 6 mo NV: 6mrc [...] 10/28/2024 9:00 AM EST Medication Management [facility] MEDICINE [address] [place] [address] Dominga Silva PharmD [address] [place] [address] 12/09/2024 8:00 AM EDT Office Visit [facility] ADULT DENTAL [address] [place] [address] Jackie Peacock 01/23/2025 9:45 AM EDT Office Visit [facility] MEDICINE [address] [place] [address] Ashley Frankel MD [address] [place] [address] documented as of this encounter Procedures Procedure [...] teeth documented in this encounter Care Teams Pharmacy Informatics Specialist Relationship Specialty Start Date End Date Ashley Frankel MD 230 [place] [address] PCP - General Family Medicine 08/28/18HoangNovember [address] [place] [address] Gastroenterology 07/17/24 Kishore Dorsey MD [address] [place] [address] Urology 07/17/24 Raheel Gee 5 [place], [place] 1040 Pulmonary Disease 07/17/24 Riya Fulton [address] [address] Cardiology 07/17/24 Sergio Hackett [address] [place] [address] Orthopaedic Surgery 07/17/24 Dominga Silva, Mehrdad [address] [place] [address] Pharmacist Internal Medicine 07/22/24 documented as of this encounter
--- OUTSIDE RECORDS SUMMARY | 2024-10-24 19:26 | XMS_ITS | Encounter Summary ---
Author Organization [employer] Address 75 [facility] 7t [place] [address] Care Team Providers Care Underbaster Name Role Phone Ashley Frankel MD Primary Care Provider [phone] Hoang November Unavailable Kishore Dorsey MD Unavailable Raheel Gee Unavailable [phone] Riya Fulton Unavailable Sergio Hackett Unavailable Unavailable Dominga SilvaD Unavailable Reason for Referral * Imaging (Urgent) - Closed Specialty Diagnoses / Procedures Referred By Jeromy worrell Referred To Contact Radiology Diagnoses Other microscopic hematuria Acute bilateral low back pain without sciatica Procedures US Renal Urinary bladder Malika Mac MD [address] [place] [address] Phone: tel: fax: [address] Phone: tel: fax: Referral ID Status Reason Start Date Expiration Date Visits Re quested Visits Authorized [id number] Closed 09/27/2024 09/27/2025 1 1 Reason for Visit * Reason Comments Back Pain Encounter Details Date Type Department Care Team (Late st Contact Info) Description 09/27/2024 11:00 AM EST Office Visit [facility] [address] [place] [address] Malika Mac MD 230 [place], [place] [phone] Other microscopic hematuria (Primary Dx); Acute bilateral [...] Description 10/28/2024 9:00 AM EST Medication Management [facility] MEDICINE [address] [place] [address] Dominga Silva, PharmD [address] [place] [address] 12/09/2024 8:00 AM EDT Office Visit [facility] ADULT DENTAL [address] [place] [address] Jackie Peacock 01/23/2025 9:45 AM EDT Office Visit [facility] MEDICINE [address] [place] [address] Ashley Frankel MD [address] [place] [address] Scheduled Orders Name Type Priority Associated Diagnoses [...] documented as of this encounter Care Teams Underbaster Relationship Specialty Start Date End Date Ashley Frankel MD [address] [place] [address] PCP - General Family Medicine 08/28/18November [address]rd [place] [address] Gastroenterology 07/17/24 Kishore Dorsey MD [address] [place] [address] Urology 07/17/24 Raheel Gee 5 [place], [place] 1040 Pulmonary Disease 07/17/24 Riya Fulton [address] [place] [address] Cardiology 07/17/24 Sergio Hackett [address] [place] [address] Orthopaedic Surgery 07/17/24 Dominga Silva, Mehrdad 230 [place] [address] Pharmacist Internal Medicine 07/22/24 documented as of this encounter
--- OUTSIDE RECORDS SUMMARY | 2024-10-24 19:26 | XMS_ITS | Encounter Summary ---
Author Organization [employer] Address [address] [place] [address] 7t [place] [address] Care Team Providers Care Tire Stripper Name Role Phone Ashley Frankel MD Primary Care Provider [phone]- [phone] Viktor November Unavailable Kishore Drosey MD Unavailable Raheel Gee Unavailable [phone] Riya Fulton Unavailable Sergio Hackett Unavailable Unavailable Dominga Silva PharmD Unavailable [phone] Encounter Details Date Type Department Care Team (Late st Contact Info) Description 04/07/2023 Abstract [facility] MEDICINE [address] [place] [address] [phone] Ashley Frankel MD 230 [place], [place] [phone] Social History Tobacco Use Types Packs/Day Years [...] Description 10/28/2024 9:00 AM EST Medication Management [facility] [address] [place] [address] Dominga Silva PharmD 230 [place] [address] 12/09/2024 8:00 AM EDT Office Visit [facility] ADULT DENTAL [address] [place] [address] Jackie Peacock 01/23/2025 9:45 AM EDT Office Visit [facility] MEDICINE [address] [place] [address] Ashley Frankel MD 230 [place] [address] documented as of this encounter Procedures Procedure Name Priority Date/Time Associated Diagnosis Comments COLONOSCOPY Routine 04/06/2023 documented in this encounter Results * Colonoscopy (04/06/2023) [facility] Signature Colonoscopy Normal Normal Historical Provider HEALTH MAINTENANCE Final Result documented in this encounter Visit Diagnoses Not on filedocumented in this encounter Care Teams Tire Stripper Relationship Specialty Start Date End Date Ashley Frankel MD 230 [place] [address] PCP - General Family Medicine 08/28/18HoangNovember [address] 3rd [place] [address] Gastroenterology 07/17/24 Kishore Dorsey MD [address] [place] [address] Urology 07/17/24 Raheel Gee 5 [place], [place] 1040 Pulmonary Disease 07/17/24 Riya Fulton [address] 3rd [place] [address] Cardiology 07/17/24 Sergio Hackett [address] [place] [address] Orthopaedic Surgery 07/17/24 Dominga Silva, Mehrdad [address] [place] [address] Pharmacist Internal Medicine 07/22/24 [facility] 10/10/24 documented as of this encounter
--- OUTSIDE RECORDS SUMMARY | 2024-10-24 19:26 | XMS_ITS | Encounter Summary ---
Author Organization [employer] Address [address] [place] [address] 7t [place] [address] Care Team Providers Care Drafter Topographical Name Role Phone Ashley Frankel MD Primary Care Provider [phone] Hoang, November Unavailable Kishore Dorsey MD Unavailable Raheel Gee Unavailable [phone] Riya Fulton Unavailable Sergio Hackett Unavailable Unavailable Dominga Silva PharmD Unavailable Reason for Visit * Reason Onset Date Comments Nurse Triage 09/27/2024 Encounter Details Date Type Department Care Team (Late st Contact Info) Description 09/27/2024 Telephone [facility] [address] [place] [address] Ashley Frankel MD [address] [place], [place] [phone] Nurse Triage Social History Tobacco Use Types [...] the past 12 months, has t he [employer], gas, oil or water [employer] threatened to shut off services in your [...] Pt advised of disposition, agrees to seek [facility] for exam as no sick on site availability on [facility] at time of call. Reviewed [facility] hours for today and tomorrow. Reviewed [facility] operating hours and that wait [...] 30: sudden AND severe upper back pain [phone] documented in this encounter Plan of Treatment Upcoming Encounters Date Type Department Care Team (Late st Contact Info) Description 10/28/2024 9:00 AM EST Medication Management [facility] [address] [place] [phone] Dominga Silva PharmD [address] [place] [phone] 12/09/2024 8:00 AM EDT Office Visit [facility] [address] [place] [address] Jackie Peacock 01/23/2025 9:45 AM EDT Office Visit [facility] [address] [place] [address] Ashley Frankel MD [address] [place] [address] documented as of this encounter Visit Diagnoses Not on filedocumented in this encounter Additional Health Concerns Assessment Noted Time PHQ-9 Depression Total Score: 0 07/17/20 24 10:33 AM EST documented as of this encounter Care Teams Drafter Topographical Relationship Specialty Start Date End Date Ashley Frankel MD [address] [place] [address] PCP - General Family Medicine 08/28/18 Sonya Hoang [address] 3rd [place] [address] Gastroenterology 07/17/24 Kishore Dosrey MD [address] [place] [address] Urology 07/17/24 Raheel Gee 5 [place], [place] [address] Pulmonary Disease 07/17/24 Riya Fulton [address] 3rd [place] [address] Cardiology 07/17/24 Sergio Hackett [address] [facility] 2nd [place] [address] Orthopaedic Surgery 07/17/24 Dominga Silva, AnanthD [address] [place] [address] Pharmacist Internal Medicine 07/22/24 documented as of this encounter
--- OUTSIDE RECORDS SUMMARY | 2024-10-24 19:26 | XMS_ITS | Encounter Summary ---
Author Organization [employer] Address [address] [facility] 7t [place] [address] Care Team Providers Care Integrity Specialist Name Role Phone Ashley Frankel MD Primary Care Provider [phone] November Unavailable Kishore Dorsey MD Unavailable Raheel Gee Unavailable [phone] Riya Fulton Unavailable Sergio Hackett Unavailable [...] Description 10/28/2024 9:00 AM EST Medication Management [facility] [address] [place] [address] Dominga Silva PharmD [address] [place] [address] 12/09/2024 8:00 AM EDT Office Visit [facility] [address] [place] [address] Jackie Peacock 01/23/2025 9:45 AM EDT Office Visit [facility] [address] [place] [address] Ashley Frankel MD [address] [place] [address] documented as of this encounter Visit Diagnoses Not on filedocumented in this encounter Additional Health Concerns Assessment Noted Time PHQ-9 Depression Total Score: 0 07/17/20 24 10:33 AM EST documented as of this encounter Care Teams Integrity Specialist Relationship Specialty Start Date End Date Ashley Frankel MD [address] [place] [phone] PCP - General Family Medicine 08/28/18 Sonya Hoang [address] 3rd [place] [address] Gastroenterology 07/17/24 Kishore Dorsey MD [address] [place] [address] Urology 07/17/24 Raheel Gee 5 [place] 10[address] Pulmonary Disease 07/17/24 Riya Fulton [address] 3rd [place] [address] Cardiology 07/17/24 Sergio Hackett 300 [facility] 2nd [place] [address] Orthopaedic Surgery 07/17/24 Dominga Silva, AnanthD 230 [place] [address] Pharmacist Internal Medicine 07/22/24 [facility] [place] Psychiatry 10/10/24 documented as of this encounter
--- OUTSIDE RECORDS SUMMARY | 2024-10-24 19:26 | XMS_ITS | Encounter Summary ---
Author Organization [facility] Address [address] [place] [address] Care Team Providers Care Clinical Account Manager Name Role Phone Ashley Frankel MD Primary Care Provider [phone] Reason for Visit * Reason Comments Flank Pain Bl flank pain here r ecently with kidney stone that had to get broken up on the right . Now having pain while urinating and left flank pain Encounter Details Date Type Department Care Team (Late st Contact Info) Description 10/12/2024 3:45 AM EST - 10/12/2024 9:39 AM EST Emergency [facility] Emergency [address] [place] [phone] Smith Quan MD [address] [address] Urinary tract infection with hematuria, site unspecified [...] REFLEX MICROSCOPIC AND CULTURE - Abnormal Specific [place] Urine 1.014 pH, Urine 5.5 Leukocytes, Urine [...] Procedure Abnormality Status --------- ------ CBC auto differential[[id number]] Abnormal Final result Please view results for these tests on the individual orders. URINALYSIS WITH REFLEX MICROSCOPIC AND CULTURE Narrative: The following orders were created for panel order Urinalysis with reflex microscopic and culture. Procedure Abnormality Status --------- ------ Urinalysis with reflex ...[[id number]] Abnormal Edited Result - FINAL [facility]lin urine culture tube[[id number]] Final result Please view results for these [...] post lithotripsy, stent placement for kidney stones [facility] as noted in greater detail above. [...] outpatient antibiotic treatment, may require transfer to [place] given recent postoperative status. Medications gentamicin (GARAMYCIN) 420 mg in sodium chloride 0.9 % 100 mL IVPB (420 mg intravenous New Bag 10/12/24 9694) ketorolac (TORADOL) injection 15 mg (15 mg intravenous Given 10/12/24 6309) sodium chloride 0.9 % bolus 1,000 mL [...] 10:45 AM EDT Consult Orthopedic Surgery - [place] [address] [address] Raheel Slater, DPM [address] [address] documented as of this encounter Procedures Procedure [...] K/mcL LAB HEMETOLOGY METHOD 10/12/2024 12:01 AM [facility] RBC 4.60 4.50 - 5.50 M/mcL LAB HEMETOLOGY METHOD 10/12/2024 12:01 AM [facility] Hemoglobin 14.1 13.5 - 17.5 g/dL LAB HEMETOLOGY METHOD 10/12/2024 12:01 AM [facility] Hematocrit 42.7 42.0 - 54.0 % LAB HEMETOLOGY METHOD 10/12/2024 12:01 AM [facility] MCV 92.2 79.0 - 98.0 FL LAB HEMETOLOGY METHOD 10/12/2024 12:01 AM [facility] MCH 30.5 27.0 - 32.0 pcg LAB HEMETOLOGY METHOD 10/12/2024 12:01 AM [facility] MCHC 33.0 32.0 - 37.0 g/dL LAB HEMETOLOGY METHOD 10/12/2024 12:01 AM [facility] RDW 12.8 11.0 - 15.0 % LAB HEMETOLOGY METHOD 10/12/2024 12:01 AM [facility] Platelets 327 130 - 400 K/mcL LAB HEMETOLOGY METHOD 10/12/2024 12:01 AM [facility] MPV 10.4 7.0 - 11.0 FL LAB HEMETOLOGY METHOD 10/12/2024 12:01 AM [facility] NRBC 0.0 <1.0 % LAB HEMETOLOGY METHOD 10/12/2024 12:01 AM [facility] NRBC Absolute 0.00 <0.10 K/mcL LAB HEMETOLOGY METHOD 10/12/2024 12:01 AM [facility] Neutrophils Relative 66.8 % LAB HEMETOLOGY METHOD 10/12/2024 12:01 AM [facility] Lymphocytes Relative 21.5 % LAB HEMETOLOGY METHOD 10/12/2024 12:01 AM [facility] Monocytes Relative 9.6 % LAB HEMETOLOGY METHOD 10/12/2024 12:01 AM [facility] Eosinophils Relative 1.2 % LAB HEMETOLOGY METHOD 10/12/2024 12:01 AM [facility] Basophils Relative 0.4 % LAB HEMETOLOGY METHOD 10/12/2024 12:01 AM [facility] Immature Granulocytes Relative 0.5 % LAB HEMETOLOGY METHOD 10/12/2024 12:01 AM [facility] Neutrophils Absolute 5.12 1.50 - 7.00 K/mcL LAB HEMETOLOGY METHOD 10/12/2024 12:01 AM [facility] Lymphocytes Absolute 1.65 1.00 - 5.00 K/mcL LAB HEMETOLOGY METHOD 10/12/2024 12:01 AM [facility] Monocytes Absolute 0.74 0.20 - 1.00 K/mcL LAB HEMETOLOGY METHOD 10/12/2024 12:01 AM [facility] Eosinophils Absolute 0.09 0.00 - 0.50 K/mcL LAB HEMETOLOGY METHOD 10/12/2024 12:01 AM [facility] Basophils Absolute 0.03 0.00 - 0.20 K/mcL LAB HEMETOLOGY METHOD 10/12/2024 12:01 AM [facility] Immature Granulocytes Absolute 0.04(H) 0.00 - 0.03 K/mcL LAB HEMETOLOGY METHOD 10/12/2024 12:01 AM [facility] Blood Venous blood specimen / Unknown Venipuncture / Unknown 10/11/2024 11:18 PM EST 10/11/2024 11:44 PM EST us Smith Quan MD LAB BLOOD ORDERABLES Final Result [facility] [address] [place] [address], * (ABNORMAL) Comprehensive metabolic panel (10/11/2024 11:18 PM EST) Sodium 138 133 - 145 mmol/L LAB CHEMISTRY METHOD 10/12/2024 12:38 AM [facility] Potassium 4.3 3.5 - 5.5 mmol/L LAB CHEMISTRY METHOD 10/12/2024 12:38 AM [facility] Chloride 107 96 - 110 mmol/L LAB CHEMISTRY METHOD 10/12/2024 12:38 AM [facility] CO2 30 21 - 32 mmol/L LAB CHEMISTRY METHOD 10/12/2024 12:38 AM [facility] Anion Gap 1(L) 3 - 11 LAB CHEMISTRY METHOD 10/12/2024 12:38 AM [facility] Glucose 126(H) 70 - 100 mg/dL LAB CHEMISTRY METHOD 10/12/2024 12:38 AM [facility] BUN 15 5 - 25 mg/dL LAB CHEMISTRY METHOD 10/12/2024 12:38 AM [facility] Creatinine 1.15 0.70 - 1.30 mg/dL LAB CHEMISTRY METHOD 10/12/2024 12:38 AM [facility] eGFR 73 >=60 mL/min/1. 73m2 LAB CHEMISTRY METHOD 10/12/2024 12:38 AM [facility] Comment:Calculation based on the??Chronic Kidney Disease Epidemiology Collaboration (CKD-EPI) equation refit??without adjustment for race. BUN/Creatinine Ratio 13.0 LAB CHEMISTRY METHOD 10/12/2024 12:38 AM [facility] Calcium 9.8 8.5 - 10.5 mg/dL LAB CHEMISTRY METHOD 10/12/2024 12:38 AM [facility] AST (SGOT) 24 10 - 42 unit/L LAB CHEMISTRY METHOD 10/12/2024 12:38 AM [facility] ALT (SGPT) 22 10 - 60 unit/L LAB CHEMISTRY METHOD 10/12/2024 12:38 AM [facility] Alkaline Phosphatase 100 42 - 121 unit/L LAB CHEMISTRY METHOD 10/12/2024 12:38 AM [facility] Total Protein 6.9 6.0 - 8.0 g/dL LAB CHEMISTRY METHOD 10/12/2024 12:38 AM [facility] Albumin 3.9 3.2 - 5.0 g/dL LAB CHEMISTRY METHOD 10/12/2024 12:38 AM [facility] Total Bilirubin 0.6 0.0 - 1.4 mg/dL LAB CHEMISTRY METHOD 10/12/2024 12:38 AM [facility] Blood Venous blood specimen / Unknown Venipuncture / Unknown 10/11/2024 11:18 PM EST 10/11/2024 11:44 PM EST us Smith Quan MD LAB BLOOD ORDERABLES Final Result Performing Organization Address [facility] Co de Phone Number [facility] [address] [place] [address], [place] [phone] * Culture urine (10/11/2024 10:34 PM EST) Culture, Urine No growth 10/13/2024 10:54 AM EST [facility] Urine Urine specimen obtained by clean catch procedure / Unknown Non-blood Collection / Unknown 10/11/2024 10:34 PM EST 10/11/2024 11:52 PM EST Smith Quan MD LAB MICROBIOLOGY - GENERAL ORDERABLES Final Result Performing Organization Address [facility] Co de Phone Number [facility] [address] [place] [address], * Carlin urine culture tube (10/11/2024 10:34 PM EST) Pathologist [facility] Extra Tube Hold for add-ons. 10/12/2024 1:11 AM EST [facility] Comment:Auto resulted. Urine Urine specimen obtained by clean catch procedure / Unknown Non-blood Collection / Unknown 10/11/2024 10:34 PM EST 10/11/2024 11:07 PM EST Smith Quan MD LAB URINE ORDERABLES Final Result Performing Organization Address [facility] Co de Phone Number [facility] [address] [place] [address], [place] [phone] * (ABNORMAL) Urinalysis with reflex microscopic and culture (10/11/2024 10:34 PM EST) [facility] Specific [place] Urine 1.014 1.003 - 1.030 LAB URINALYSIS - AUTOMATED METHOD 10/12/2024 6:50 AM EST [facility] pH, Urine 5.5 5.0 - 8.0 pH LAB URINALYSIS - AUTOMATED METHOD 10/12/2024 6:50 AM [facility] Leukocytes, Urine Moderate(A) Negative LAB URINALYSIS - AUTOMATED METHOD 10/12/2024 6:50 AM [facility] Nitrite, Urine Positive(A) Negative LAB URINALYSIS - AUTOMATED METHOD 10/12/2024 6:50 AM [facility] Protein, Urine 300(A) <=Trace mg/dL LAB URINALYSIS - AUTOMATED METHOD 10/12/2024 6:50 AM [facility] Glucose, Urine Negative Negative mg/dL LAB URINALYSIS - AUTOMATED METHOD 10/12/2024 6:50 AM [facility] Ketones, Urine Negative Negative mg/dL LAB URINALYSIS - AUTOMATED METHOD 10/12/2024 6:50 AM [facility] Urobilinogen, Urine 1.0 0.2 - 1.0 mg/dL LAB URINALYSIS - AUTOMATED METHOD 10/12/2024 6:50 AM [facility] Bilirubin, Urine Small(A) Negative LAB URINALYSIS - AUTOMATED METHOD 10/12/2024 6:50 AM [facility] Blood, Urine Large(A) Negative LAB URINALYSIS - AUTOMATED METHOD 10/12/2024 6:50 AM [facility] RBC, Urine 1,724.4(H) 0 - 4 /HPF LAB URINALYSIS - AUTOMATED METHOD 10/12/2024 6:50 AM [facility] Comment:This is an appended report. These results have been appended to a previously preliminary verified report. WBC, Urine 48.9(H) 0 - 4 /HPF LAB URINALYSIS - AUTOMATED METHOD 10/12/2024 6:50 AM [facility] Comment:This is an appended report. These results have been appended to a previously preliminary verified report. Squamous Epithelial, Urine >100(H) 0 - 60 /LPF LAB URINALYSIS - AUTOMATED METHOD 10/12/2024 6:50 AM EST [facility] Comment:This is an appended report. These results have been appended to a previously preliminary verified report. Crystals, Urine LT CALCIUM OXALATE /LPF LAB URINALYSIS - AUTOMATED METHOD 10/12/2024 6:50 AM EST [facility] Comment:Corrected result: Pr eviously reported on 10/11/2024 at 2351 EST. Bacteria, Urine Negative Negative /HPF LAB URINALYSIS - AUTOMATED METHOD 10/12/2024 6:50 AM EST [facility] Comment: Edited result: Previously reported as Negative /HPF on 10/11/2024 at 2351 EST. This is an appended report. ??These results have been appended to a previously final verified report. Hyaline Casts, Urine 13.6(H) 0 - 3 /LPF LAB URINALYSIS - AUTOMATED METHOD 10/12/2024 6:50 AM EST [facility] Comment:This is an appended report. These results have been appended to a previously preliminary verified report. Urine Urine specimen obtained by clean catch procedure / Unknown Non-blood Collection / Unknown 10/11/2024 10:34 PM EST 10/11/2024 11:07 PM EST us Smith Quan MD LAB URINE ORDERABLES Edited Result - Final [facility] [address] [place] [address], documented in this encounter Visit Diagnoses Diagnosis [...] RN) documented in this encounter Care Teams Clinical Account Manager Relationship Specialty Start Date End Date Ashley Frankel MD [address] [place] [address] PCP - General Family Medicine 08/09/24 documented as of this encounter
--- OUTSIDE RECORDS SUMMARY | 2024-10-24 19:26 | XMS_ITS | Encounter Summary ---
Author Organization [employer] Address [address] [place] [address] 7[address] [place] [address] Care Team Providers Care Stallion Manager Name Role Phone Ashley Frankel MD Primary Care Provider [phone] Viktor November Unavailable Kishore Dorsey MD Unavailable Raheel Gee Unavailable [phone] Riya Fulton Unavailable Sergio Hackett Unavailable Unavailable Dominga Silva PharmD Unavailable Encounter Details Date Type Department Care Team (Late st Contact Info) Description 09/13/2022 Abstract [facility] [address] [place] [address] Ashley Frankel MD [address] [place] [address] Social History Tobacco Use Types Packs/Day Years [...] Description 10/28/2024 9:00 AM EST Medication Management [facility] [address] [place] [address] RobsonsDominga Stockton, PharmD [address] [place] [address] 12/09/2024 8:00 AM EDT Office Visit [facility] [address] [place] [address] Jackie Peacock 01/23/2025 9:45 AM EDT Office Visit [facility] [address] [place] [address] Ashley Frankel MD [address] [place] [address] documented as of this encounter Procedures Procedure Name Priority Date/Time Associated Diagnosis Comments COLONOSCOPY Routine 09/06/2012 documented in this encounter Results * Colonoscopy (09/06/2012) Colonoscopy normal with Dr. Barrera Historical Provider [facility] Final Result documented in this encounter Visit Diagnoses Not on filedocumented in this encounter Care Teams Stallion Manager Relationship Specialty Start Date End Date Ashley Frankel MD [address] [place] [address] PCP - General Family Medicine 08/28/18November 11 [facility] [address] [place] [address] Gastroenterology 07/17/24 Kishore Dorsey MD [address] [place] [address] Urology 07/17/24 Raheel Gee 5 [place], [place] 10[address] Pulmonary Disease 07/17/24 Riya Fulton 11 [facility] [address] [place] [address] Cardiology 07/17/24 Sergio Hackett [address]nd [place] [address] Orthopaedic Surgery 07/17/24 Dominga Silva, Mehrdad [address] [place] [address] Pharmacist Internal Medicine 07/22/24 [facility]. [place] Psychiatry 10/10/24 documented as of this encounter
--- OUTSIDE RECORDS SUMMARY | 2024-10-24 19:26 | XMS_ITS | Encounter Summary ---
Author Organization [employer] Address [address] [facility] 7t [place] [address] Care Team Providers Care Supervisor Stock [place] Name Role Phone Ashley Frankel MD Primary Care Provider [phone] Hoang, November Unavailable Kishore Dorsey MD Unavailable [phone] Raheel Gee Unavailable [phone] Riya Fulton Unavailable Sergio Hackett Unavailable Unavailable Dominga Silva PharmD Unavailable Encounter Details Date Type Department Care Team (Late st Contact Info) Description 09/09/2024 Orders Only [facility] External Provider, [facility] Renal calculi (Primary Dx) Social History [...] 9:00 AM EST Medication Management [facility] [address] [place] [phone] Dominga Silva, PharmD [address] [place] [address] 12/09/2024 8:00 AM EDT Office Visit [facility] 230 [place] [address] Jackie Peacock 01/23/2025 9:45 AM EDT Office Visit [facility] [address] [place] [phone] Ashley Frankel MD [address] [place] [address] documented as of this encounter Procedures Procedure [...] EST Narrative 09/30/2024 1:13 PM EST ? [facility] ?[address] ?[place] [address] ? Ultrasound Report ? Signed ? Patient: Krista,Bobby ?MR#: [id number] ? : 1965 ?Acct:[id number] ? Age/Sex: 59 / M ?ADM Date: // ? Loc: HO.US ? Attending Dr: Malika Mac MD ? Ordering Physician: Malika Mac MD ?? Date of Service: 09/30/24 ?? Procedure(s): US retroperitoneal comp ?? Accession Number(s): [id number] ? cc: Ashley Frankel MD; Malika Mac [...] DD/ 1313 ? TD/TT: 09/30/24 1313 ? New Client Banking Services Clerk: ? Procedure Note Donjacobter, Image - 09/30/2024 [place] [address] Ultrasound Report Signed Patient: Pierce Velasco#: [id number] : 1965Acct:[id number] Age/Sex: 59 / MADM Date: 09/30/24 Loc: HO.US Attending Dr: Malika Mac MD Ordering Physician: Malika Mac MD Date of Service: 09/30/24 Procedure(s): US retroperitoneal comp Accession Number(s): [id number] cc: Ashley Frankel MD; Malika Mac MD [...] 09/30/24 1313 DD/ 1313 TD/TT: 09/30/24 1313 New Client Banking Services Clerk: us Malika Mac MD IMG US PROCEDURES Final Result * High Sensitivity Troponin I (09/09/2024 2:44 PM EST) TROPONIN I HIGH SENSITIVITY 5.2 <3.5 - 35.0 ng/L [facility] Comment:The Schmidt high sens itivity Troponin-I results should beused in conjunction with other diagnostic information suchas ECG, clinical observations and information, and patientsymptoms to aid in the diagnosis of ME. 09/09/2024 2:44 PM EST 09/09/2024 2:53 PM EST us Generic External Data Provider LAB BLOOD ORDERAB LES Final Result Performing Organization Address City/[facility] Co de Phone Number [facility] [address] [place] [phone] * Lipase (09/09/2024 11:02 AM EST) Lipase 28 8 - 78 U/L [facility] 09/09/2024 11:0 2 AM EST 09/09/2024 11:06 AM EST us Generic External Data Provider LAB BLOOD ORDERAB LES Final Result Performing Organization Address City/[facility]/ZIP Co de Phone Number [facility] [address] [place] [address] [phone] * Magnesium (09/09/2024 11:02 AM EST) Magnesium 2.0 1.6 - 2.6 mg/dL [facility] 09/09/2024 11:0 2 AM EST 09/09/2024 11:06 AM EST us Generic External Data Provider LAB BLOOD ORDERAB LES Final Result [facility] [address] [place] [address] [phone] * (ABNORMAL) Basic Metabolic Panel (09/09/2024 11:02 AM EST) Sodium 142 135 - 145 mmol/L [facility] Potassium 3.7 3.3 - 5.1 mmol/L [facility] Chloride 108 96 - 108 mmol/L [facility] Carbon Dioxide 29 22 - 29 mmol/L [facility] Anion Gap 9(L) 12 - 20 [facility] Urea Nitrogen (BUN) 13 9 - 16 mg/dL [facility] Creatinine, Serum 1.00 0.5 - 1.4 mg/dL [facility] Creatinine Clr Calc Pharmacy 81.3 [facility] Comment:eGFR (calculated fro m the MDRD study equation) and eCrCl(calculated from the Cockcroft-Gault equation) are based ondifferent parameters and may not yield comparable results.If eCrCl result is absurd, please check patient'sheight/weight. Estimated Glomerular Filt Rate >60 [facility] Comment:Chronic Kidney Disea se: Estimated GFR < 60 mL/min/1.67x5Obqknd Kidney Disease: Estimated GFR < 15 mL/min/1.73m2 Glucose 147(H) 60 - 115 mg/dL [facility] Calcium 9.2 8.4 - 10.2 mg/dL [facility] 09/09/2024 11:0 2 AM EST 09/09/2024 11:06 AM EST Generic External Data Provider LAB BLOOD ORDERAB LES Final Result Performing Organization Address [facility] de Phone Number [facility] [address] [place] [phone] * Hepatic Function Panel (09/09/2024 11:02 AM EST) Bilirubin, Total 0.9 0.0 - 1.0 mg/dL [facility] Bilirubin, Direct 0.3 0.0 - 0.5 mg/dL [facility] Aspartate Amino Transferase 29 5 - 37 U/L [facility] Alanine Aminotransferase 23 0 - 40 U/L [facility] Total Protein 6.9 6.5 - 8.0 g/dL [facility] Albumin Level 4.1 3.5 - 5.0 g/dL [facility] Alkaline Phosphatase 100 39 - 117 U/L [facility] 09/09/2024 11:0 2 AM EST 09/09/2024 11:06 AM EST Generic External Data Provider LAB BLOOD ORDERAB LES Final Result Performing Organization Address [facility] Phone Number [facility] [address] [place] [phone] * (ABNORMAL) CBC auto differential (09/09/2024 11:02 AM EST) White Blood Count 3.7(L) 4.8 - 10.8 X10*3/uL [facility] Red Blood Count 4.60 4.60 - 5.80 X10*6/uL [facility] Hemoglobin 13.8(L) 14.0 - 18.0 g/dl [facility] Hematocrit 41.4(L) 42.0 - 52.0 % [facility] Mean Corpuscular Volume 90.0 80.0 - 98.0 fL [facility] Mean Corpuscular Hemoglobin 30.0 27.0 - 33.0 pg [facility] Mean Corpuscular HGB Conc 33.3 31.0 - 36.0 g/dl [facility] Red Cell Distribution Width 13.2 11.0 - 16.0 % [facility] Platelet Count 208 160 - 400 X10*3/uL [facility] Mean Platelet Volume 10.4 9.4 - 12.4 fL [facility] Neutrophils Percent Auto 53.8 45 - 73 % [facility] Imm Gran Pct Auto 0.3 0.0 - 0.4 % [facility] Lymphocytes Percent Auto 32.4 20 - 40 % [facility] Monocytes Percent Auto 10.3 2 - 11 % [facility] Eosinophils Percent Auto 2.4 0 - 4 % [facility] Basophils Percent Auto 0.8 0 - 2 % [facility] NRBC Pct Auto 0.0 0.0 - 0.2 /100WBC [facility] Neutrophils Absolute Auto 2.0 2.0 - 8.3 x10*3/uL [facility] Imm Gran Abs Auto 0.01 0.00 - 0.03 X10*3/uL [facility] Lymphocytes Absolute Auto 1.2 1.2 - 4.9 X10*3/uL [facility] Monocytes Absolute Auto 0.4 0.1 - 1.2 X10*3/uL [facility] Eosinophils Absolute Auto 0.1 0.0 - 0.4 X10*3/uL [facility] Basophils Absolute Auto 0.0 0.0 - 0.2 X10*3/uL [facility] NRBC Abs Auto 0.000 0.0 - 0.012 X10*3/uL [facility] 09/09/2024 11:0 2 AM EST 09/09/2024 11:06 AM EST us Generic External Data Provider LAB BLOOD ORDERAB LES Final Result [facility] [address] [place] [address] [phone] * SARS-CoV-2 RNA, Influenza A/B, and RSV RNA, Ql NAAT (09/09/2024 11:01 AM EST) Pathologist [facility] Influenza A PCR NEGATIVE Negative [facility] Influenza B PCR NEGATIVE Negative [facility] Resp Syncy Virus RNA Qual PCR NEGATIVE Negative [facility] SARS COV2 PCR NEGATIVE Negative [facility] Comment:All test results mus t be [...] use by authorized laboratories.Testing performed on the [employer] GeneXpert utilizingreal-time RT-PCR.All SARS CoV2 and positive influenza A/B results arereported to [facility]. 09/09/2024 11:0 1 AM EST 09/09/2024 11:06 AM EST [facility] External Data Provider LAB MICROBIOLOGY - GENERAL ORDERABLES Final Result Performing Organization Address City/[facility] de Phone Number [facility] [address] [place] [phone] * High Sensitivity Troponin I (09/09/2024 11:01 AM EST) Pathologist [facility] TROPONIN I HIGH SENSITIVITY 3.2 <3.5 - 35.0 ng/L [facility] Comment:The Schmidt high sens itivity Troponin-I results should beused in conjunction with other diagnostic information suchas ECG, clinical observations and information, and patientsymptoms to aid in the diagnosis of ME. 09/09/2024 11:0 1 AM EST 09/09/2024 11:06 AM EST Generic External Data Provider LAB BLOOD ORDERAB LES Final Result [facility] [address] [place] [phone] * XR Chest 2 Views (09/09/2024 10:34 AM EST) Anatomical Region Laterality Modality Chest Radiographic Hannah ging 09/09/2024 10:3 4 AM EST Narrative 09/09/2024 11:06 AM EST ? [facility] ?[address] ?[place] [address] ?XRay Report ? Signed ? Patient: Krista,Bobby ?MR#: [id number] ? : 1965 ?Acct:[id number] ? Age/Sex: 59 / M ?ADM Date: 09/09/24 ? Loc: HO.ED ? Attending Dr: ? Ordering Physician: Deandra Reynolds DO ?? Date of Service: 09/09/24 ?? Procedure(s): XR chest 2V ?? Accession Number(s): [id number] ? cc: Ashley Frankel MD; Deandra Reynolds [...] DD/ 1034 ? TD/TT: 09/09/24 1045 ? New Client Banking Services Clerk: ? Procedure Note Reshma, Cesar - 09/09/2024 [place] [address] [facility] [place] [address] XRay Report Signed Patient: Pierce Velasco#: [id number] : 1965Acct:[id number] Age/Sex: 59 / MADM Date: 09/09/24 Loc: HO.ED Attending Dr: Ordering Physician: Deandra Reynolds DO Date of Service: 09/09/24 Procedure(s): XR chest 2V Accession Number(s): [id number] cc: Ashley Frankel MD; Deandra Reynolds DO [...] 09/09/24 1103 DD/ 1034 TD/TT: 09/09/24 1045 New Client Banking Services Clerk: [facility] External Provider IMG XR PROCEDURES Edited Result - Final documented in this encounter Visit Diagnoses Diagnosis Renal calculi- Primary Calculus of kidney documented in this encounter Additional Health Concerns Assessment Noted Time PHQ-9 Depression Total Score: 0 07/17/20 10:33 AM EST documented as of this encounter Care Teams Supervisor [place] Relationship Specialty Start Date End Date Ashley Frankel MD [address] [place] [address] PCP - General Family Medicine 08/28/18November [address] 3rd [place] [address] Gastroenterology 07/17/24 Kishore Dorsey MD [address] [place] [address] Urology 07/17/24 Raheel Gee 5 [place], [place] [address] Pulmonary Disease 07/17/24 Riya Fulton 11 [facility] 3rd [place] [address] Cardiology 07/17/24 Sergio Hackett [address] [place] [address] Orthopaedic Surgery 07/17/24 Dominga Silva, Mehrdad [address] [place] [address] Pharmacist Internal Medicine 07/22/24 documented as of this encounter
== END 2024-10-24 18:04 | disposition home or self-care (01) ==
PROVIDERS: Physician Assistant; Emergency Provider Student in an Organized Health Care Education/Training Program; PCP Family Medicine
DX: I10 Essential (primary) hypertension (principal); R07.9 Chest pain, unspecified; R42 Dizziness and giddiness; E11.9 Type 2 diabetes mellitus without complications; E78.00 Pure hypercholesterolemia, unspecified; J45.909 Unspecified asthma, uncomplicated; Z87.891 Personal history of nicotine dependence; Z79.82 Long term (current) use of aspirin; Z79.02 Long term (current) use of antithrombotics/antiplatelets; Z79.899 Other long term (current) drug therapy
CPT/HCPCS: 36415; 71045; 80053; 82306; 83615; 83880; 84443; 84484; 85025; 85610; 85730; 87389; 93005; 99283; 99284

== ENCOUNTER → 2024-10-24 13:22 | Outpatient (BNV) | payer OTHER, SELFPAY | PROVIDERS: PCP Family Medicine; Visit Provider Radiology Diagnostic Radiology | DX: R07.9 Chest pain, unspecified (principal) | CPT/HCPCS: 71045 ==

== ENCOUNTER → 2024-10-24 13:22 | Outpatient (BNV) | payer OTHER, SELFPAY | PROVIDERS: Emergency Provider Student in an Organized Health Care Education/Training Program; PCP Family Medicine; Visit Provider Internal Medicine Cardiovascular Disease | DX: R07.89 Other chest pain (principal) | CPT/HCPCS: 93010 ==

== ENCOUNTER 2024-10-26 14:17 | Outpatient (REF) | payer OTHER, SELFPAY ==
--- OUTSIDE RECORDS SUMMARY | 2024-10-26 14:21 | XMS_ITS | Encounter Summary ---
Author Organization [employer] Address [address] [place] [address] 7t [place] [address] Care Team Providers Care Color Television Console Monitor Name Role Phone Ashley Frankel MD Primary Care Provider [phone] Viktor November Unavailable Kishore Dorsey MD Unavailable Raheel Gee Unavailable [phone] Riya Fulton Unavailable Sergio Hackett Unavailable Unavailable Dominga Silva PharmD Unavailable Reason for Visit * Reason Onset Date Comments Nurse Triage 10/07/2024 Encounter Details Date Type Department Care Team (Late st Contact Info) Description 10/07/2024 Telephone [facility] [address] [place] [address] Ashley Frankel MD [address] [place], [place] [phone] Nurse Triage Social History Tobacco Use Types [...] the past 12 months, has t he [employer], gas, oil or water [employer] threatened to shut off services in your [...] program as needed. Patient will call of [facility] to obtain follow up appt. Reviewed with [...] caller accepted this outcome. Contact pt at [phone] documented in this encounter Plan of Treatment Upcoming Encounters Date Type Department Care Team (Late st Contact Info) Description 10/28/2024 9:00 AM EST Medication Management [facility] [address] [place] [phone] Dominga Silva, PharmD [address] [place] [address] 12/09/2024 8:00 AM EDT Office Visit [facility] [address] [place] [address] Jackie Peacock 01/23/2025 9:45 AM EDT Office Visit [facility] [address] [place] [address] Ashley Frankel MD [address] [place] [address] documented as of this encounter Visit Diagnoses Not on filedocumented in this encounter Additional Health Concerns Assessment Noted Time PHQ-9 Depression Total Score: 0 07/17/20 24 10:33 AM EST documented as of this encounter Care Teams Color Television Console Monitor Relationship Specialty Start Date End Date Ashley Frankel MD [address] [place] [address] PCP - General Family Medicine 08/28/18 Sonya Hoang [address] 3rd [place] [address] Gastroenterology 07/17/24 Kishore Dorsey MD [address] [place] [address] Urology 07/17/24 Raheel Gee 5 [place], [place] 10[address] Pulmonary Disease 07/17/24 Riya Fulton [address] [place] [address] Cardiology 07/17/24 Sergio Hackett 300 [facility] 2nd [place] [address] Orthopaedic Surgery 07/17/24 Dominga Silva, Mehrdad [address] [place] [address] Pharmacist Internal Medicine 07/22/24 documented as of this encounter
--- OUTSIDE RECORDS SUMMARY | 2024-10-26 14:21 | XMS_ITS | Encounter Summary ---
Author Organization [employer] Address 75 [facility] 7t [place] [address] Care Team Providers Care Lozenge Maker Name Role Phone Ashley Frankel MD Primary Care Provider [phone] Viktor November Unavailable Kishore Dorsey MD Unavailable [phone] Raheel Gee Unavailable [phone] Riya Fulton Unavailable Sergio Hackett Unavailable Unavailable Dominga SilvaD Unavailable Encounter Details Date Type Department Care Team (Late st Contact Info) Description 10/10/2024 Telephone [facility] [address] [place], [place] [phone] Ashley Frankel MD [address] [place], [place] [phone] Social History Tobacco Use Types Packs/Day Years [...] PM EST Pt reports he was at [facility] and wants to know the lab results. documented in this encounter Plan of Treatment Upcoming Encounters Date Type Department Care Team (Late st Contact Info) Description 10/28/2024 9:00 AM EST Medication Management [facility] [address] [place] [phone] Dominga Silva, AnanthD [address] [place] [address] 12/09/2024 8:00 AM EDT Office Visit [facility] [address] [place] [address] Jackie Peacock 01/23/2025 9:45 AM EDT Office Visit [facility] [address] [place] [phone] Ashley Frankel MD [address] [place] [address] documented as of this encounter Visit Diagnoses Not on filedocumented in this encounter Additional Health Concerns Assessment Noted Time PHQ-9 Depression Total Score: 0 07/17/20 10:33 AM EST documented as of this encounter Care Teams Lozenge Maker Relationship Specialty Start Date End Date Ashley Frankel MD [address] [place] [address] PCP - General Family Medicine 08/28/[address] [place] [address] Gastroenterology 07/17/24 Kishore Dorsey MD [address] [place] [address] Urology 07/17/24 Raheel Gee 5 [place], [place] 10[address] Pulmonary Disease 07/17/24 Riya Fulton 11 [facility] 3rd [place] [address] Cardiology 07/17/24 Sergio Hackett 300 [facility] [address] [place] [address] Orthopaedic Surgery 07/17/24 Dominga Silva PharmD [address] [place] [address] Pharmacist Internal Medicine 07/22/24 [facility] 10/10/24 documented as of this encounter
--- OUTSIDE RECORDS SUMMARY | 2024-10-26 14:21 | XMS_ITS | Encounter Summary ---
Author Organization [employer] Address 75 [facility] 7t [place] [address] Care Team Providers Care Drupal Programmer Name Role Phone Ashley Frankel MD Primary Care Provider [phone] Viktor November Unavailable Kishore Dorsey MD Unavailable Raheel Gee Unavailable [phone] Riya Fulton Unavailable Sergio Hackett Unavailable Unavailable Dominga Silva PharmD Unavailable Reason for Visit * Reason Comments Med Change Request Encounter Details Date Type Department Care Team (Late st Contact Info) Description 07/12/2023 Refill [facility] 230 [place], [place] [phone] Ashley Frankel MD [address] [place], [place] [phone] Social History Tobacco Use Types Packs/Day Years [...] Description 10/28/2024 9:00 AM EST Medication Management [facility] [address] [place] [phone] Dominga Silva, PharmD [address] [place] [address] 12/09/2024 8:00 AM EDT Office Visit [facility] [address] [place] [address] Jackie Peacock 01/23/2025 9:45 AM EDT Office Visit [facility] [address] [place] [address] Ashley Frankel MD [address] [place] [address] documented as of this encounter Visit Diagnoses Not on filedocumented in this encounter Care Teams Drupal Programmer Relationship Specialty Start Date End Date Ashley Frankel MD [address] [place] [address] PCP - General Family Medicine 08/28/18HoangNovember [address] 3rd [place] [address] Gastroenterology 07/17/24 Kishore Dorsey MD [address] [place] [address] Urology 07/17/24 Raheel Gee 5 [place], [place] 10[address] Pulmonary Disease 07/17/24 Riya Fulton [address] 3rd [place] [address] Cardiology 07/17/24 Sergio Hackett 300 [facility] 2nd [place] [address] Orthopaedic Surgery 07/17/24 Dominga Silva, AnanthD [address] [place] [address] Pharmacist Internal Medicine 07/22/24 [facility] 10/10/24 documented as of this encounter
--- OUTSIDE RECORDS SUMMARY | 2024-10-26 14:21 | XMS_ITS | Encounter Summary ---
Author Organization [employer] Address 75 [facility] 7t [place] [address] Care Team Providers Care Career Center Advisor Name Role Phone Ashley Frankel MD Primary Care Provider [phone] Hoang, November Unavailable Kishore Dorsey MD Unavailable [phone] Raheel Gee Unavailable [phone] Riya Fulton Unavailable Sergio Hackett Unavailable Unavailable Dominga SilvaD Unavailable [phone] Reason for Visit * Reason Onset Date Comments Results 09/30/2024 Encounter Details Date Type Department Care Team (Late st Contact Info) Description 09/30/2024 Telephone [facility] [address] [place], [place] [phone] Aurora Alexandre, RN Results Social History Tobacco [...] by Dr. Mac on 09/27/2024 at the [facility] for lower back pain and concentrated urine. Pt still confirms right lower back pain. No fever or blood noted in the urine. Pt was advised per PCP recommendation to be assessed further in the ED due to these findings. Pt confirms that he will present to [facility] ED today. ----- Message from Ashley Frankel [...] Description 10/28/2024 9:00 AM EST Medication Management [facility] [address] [place] [address] Dominga Silva PharmD 230 [place] [address] 12/09/2024 8:00 AM EDT Office Visit [facility] [address] [place] [address] Jackie Peacock 01/23/2025 9:45 AM EDT Office Visit [facility] [address] [place] [address] Ashley Frankel MD [address] [place] [address] documented as of this encounter Visit Diagnoses Not on filedocumented in this encounter Additional Health Concerns Assessment Noted Time PHQ-9 Depression Total Score: 0 07/17/20 10:33 AM EST documented as of this encounter Care Teams Career Center Advisor Relationship Specialty Start Date End Date Ashley Frankel MD [address] [place] [address] PCP - General Family Medicine 08/28/18HoangNovember 11 [facility] 3rd [place] [address] Gastroenterology 07/17/24 Kishore Dorsey MD [address] [place] [address] Urology 07/17/24 Raheel Gee 5 [place], [place] 10[address] Pulmonary Disease 07/17/24 Riya Fulton 11 [facility] 3rd [place] [address] Cardiology 07/17/24 Sergio Hackett [address] [place] [address] Orthopaedic Surgery 07/17/24 Dominga Silva, AnanthD [address] [place] [address] Pharmacist Internal Medicine 07/22/24 documented as of this encounter
--- OUTSIDE RECORDS SUMMARY | 2024-10-26 14:21 | XMS_ITS | Encounter Summary ---
Author Organization [employer] Address [address] [place] [address] [address], [place] [address] Care Team Providers Care Drafter Chief Design Name Role Phone Ashley Frankel MD Primary Care Provider [phone] Viktor November Unavailable Kishore Dorsey MD Unavailable Raheel Gee Unavailable [phone] Riya Fulton Unavailable Sergio Hackett Unavailable Unavailable Dominga Silva PharmD Unavailable Reason for Referral * Consultation (Routine) - Authorized Specialty Diagnoses / Procedures Referred By Jeromy worrell Referred To Contact Urology Diagnoses Renal calculi Hydronephrosis, unspecified hydronephrosis type Ashley Frankel MD [address] [place] [address] Phone: tel: fax: [facility] Referral ID Status Reason Start Date Expiration Date Visits Requested Visits Authorized [id number] Authorized Specialty Services Required 09/30/2024 09/30/2025 1 1 Encounter Details Date Type Department Care Team (Late st Contact Info) Description 09/30/2024 Orders Only [facility] MEDICINE [address] [place] [address] [phone] Ashley Frankel MD [address] [place] [phone] Renal calculi (Primary Dx); Hydronephrosis, unspecified [...] Description 10/28/2024 9:00 AM EST Medication Management [facility] MEDICINE [address] [place] [address] Dominga Silva, PharmD [address] [place] [address] 12/09/2024 8:00 AM EDT Office Visit [facility] ADULT DENTAL [address] [place], [place] [phone] Jackie Peacock 01/23/2025 9:45 AM EDT Office Visit [facility] MEDICINE [address] [place] [address] Ashley Frankel MD [address] [place] [address] Scheduled Referrals Name Type Priority Associated Diagnoses [...] EST Narrative 10/02/2024 10:09 AM EST ? [facility] ?[address] ?[place] [address] ? Fluoroscopy Report ? Signed ? Patient: Krista,Bobby ?MR#: [id number] ? : 1965 ?Acct:[id number] ? Age/Sex: 59 / M ?ADM Date: 09/30/24 ? Loc: HO.S3 ?344-1 ? Attending Dr: Parveen Breen MD ? Ordering Physician: Mayda Rodriguez MD ?? Date of Service: 10/01/24 ?? Procedure(s): FL guidance in OR ?? Accession Number(s): [id number] ? cc: Mayda Rodriguez MD; Ashley Frankel [...] DD/ 1615 ? TD/TT: 10/01/24 1710 ? Concreting Supervisor: ? Procedure Note Cesar Justice - 10/02/[address] [address] Fluoroscopy Report Signed Patient: Pierce Velasco#: [id number] : 1965Acct:[id number] Age/Sex: 59 / MADM Date: 09/30/24 Loc: HO.S3 344-[address]: Parveen Breen MD Ordering Physician: Mayda Rodriguez MD Date of Service: 10/01/24 Procedure(s): FL guidance in OR Accession Number(s): [id number] cc: Mayda Rodriguez MD; Ashley Frankel MD [...] Patel MD 10/02/2024 10:06 AM EST Workstation: [id number] Dictated By: Harrison Patel MD Signed By: <Electronically signed by Harrison Patel MD in OV> 10/02/24 1006 DD/ 1615 TD/TT: 10/01/24 1710 Concreting Supervisor: [facility] External Provider IMG IR PROCEDURES Edited Result - Final * Lipase (09/30/2024 4:26 PM EST) Lipase 35 8 - 78 U/L [facility] 09/30/2024 4:26 PM EST 09/30/2024 4:29 PM EST Generic External Data Provider LAB BLOOD ORDERAB LES Final Result Performing Organization Address [facility] de Phone Number [facility] [address] [place] [phone] * Magnesium (09/30/2024 4:26 PM EST) Magnesium 1.9 1.6 - 2.6 mg/dL [facility] 09/30/2024 4:26 PM EST 09/30/2024 4:29 PM EST Generic External Data Provider LAB BLOOD ORDERAB LES Final Result Performing Organization Address [facility] Co de Phone Number [facility] [address] [place] [phone] [phone] * (ABNORMAL) Basic Metabolic Panel (09/30/2024 4:26 PM EST) Pathologist [facility] Sodium 141 135 - 145 mmol/L [facility] Potassium 3.6 3.3 - 5.1 mmol/L [facility] Chloride 108 96 - 108 mmol/L [facility] Carbon Dioxide 25 22 - 29 mmol/L [facility] Anion Gap 12 12 - 20 [facility] Urea Nitrogen (BUN) 14 9 - 16 mg/dL [facility] Creatinine, Serum 0.93 0.5 - 1.4 mg/dL [facility] Creatinine Clr Calc Pharmacy 85.6 [facility] Comment:eGFR (calculated fro m the MDRD study equation) and eCrCl(calculated from the Cockcroft-Gault equation) are based ondifferent parameters and may not yield comparable results.If eCrCl result is absurd, please check patient'sheight/weight. Estimated Glomerular Filt Rate >60 [facility] Comment:Chronic Kidney Disea se: Estimated GFR < 60 mL/min/[id number] Kidney Disease: Estimated GFR < 15 mL/min/1.73m2 Glucose 125(H) 60 - 115 mg/dL [facility] Calcium 9.6 8.4 - 10.2 mg/dL [facility] 09/30/2024 4:26 PM EST 09/30/2024 4:29 PM EST us Generic External Data Provider LAB BLOOD ORDERAB LES Final Result [facility] [address] [place] [address] [phone] * Hepatic Function Panel (09/30/2024 4:26 PM EST) Pathologist [facility] Bilirubin, Total 0.9 0.0 - 1.0 mg/dL [facility] Bilirubin, Direct 0.2 0.0 - 0.5 mg/dL [facility] Aspartate Amino Transferase 25 5 - 37 U/L [facility] Alanine Aminotransferase 12 0 - 40 U/L [facility] Total Protein 7.8 6.5 - 8.0 g/dL [facility] Albumin Level 4.5 3.5 - 5.0 g/dL [facility] Alkaline Phosphatase 94 39 - 117 U/L [facility] 09/30/2024 4:26 PM EST 09/30/2024 4:29 PM EST us Generic External Data Provider LAB BLOOD ORDERAB LES Final Result [facility] [address] [place] [phone] * (ABNORMAL) Urinalysis, Complete, with Reflex to Culture (09/30/2024 4:26 PM EST) Color Urine Yellow [facility] Appearance Urine Clear [facility] PH 5.5 5.0 - 9.0 [facility] Glucose Urine UA Negative Negative mg/dL [facility] Urine Blood Negative Negative [facility] Specific [place] - Urine <=1.005 1.005 - 1.025 [facility] Urine Protein Negative Neg-Trace mg/dL [facility] Urine Ketones Trace Negative mg/dL [facility] Nitrite Urine Negative Negative [facility] Leukocyte Esterase Urine Trace(A) Negative [facility] RBC Urine 0-2 0 - 2 /HPF [facility] Urine WBC 0-5 0 - 5 /HPF [facility] Urine Squamous Epithelial Cell 0-2 0 - 2 /HPF [facility] Urine Bacteria None Seen None Seen [facility] Hyaline Casts, Urine 0-2 0 - 2 /LPF [facility] 09/30/2024 4:26 PM EST 09/30/2024 4:29 PM EST Narrative [facility] - 09/30/2024 4:46 PM EST [id number], Clean Catch Generic External Data Provider LAB URINE ORDERAB LES Final Result Performing Organization Address [facility] Co de Phone Number [facility] [address] [place] [phone] * Prothrombin Time-INR (09/30/2024 4:26 PM EST) [facility] Prothrombin Time 11.3 10.9 - 12.4 SEC [facility] INTERNATIONAL NORM RATIO 1.0 0.9 - 1.1 [facility] Comment:INTERNATIONAL NORMAL IZED RATIO (INR) REFERENCE [...] Address [facility] de Phone Number [facility] [address] [place] [phone] * (ABNORMAL) CBC auto differential (09/30/2024 4:26 PM EST) [facility] White Blood Count 7.2 4.8 - 10.8 X10*3/uL [facility] Red Blood Count 4.65 4.60 - 5.80 X10*6/uL [facility] Hemoglobin 14.2 14.0 - 18.0 g/dl [facility] Hematocrit 41.0(L) 42.0 - 52.0 % [facility] Mean Corpuscular Volume 88.2 80.0 - 98.0 fL [facility] Mean Corpuscular Hemoglobin 30.5 27.0 - 33.0 pg [facility] Mean Corpuscular HGB Conc 34.6 31.0 - 36.0 g/dl [facility] Red Cell Distribution Width 13.0 11.0 - 16.0 % [facility] Platelet Count 273 160 - 400 X10*3/uL [facility] Mean Platelet Volume 10.4 9.4 - 12.4 fL [facility] Neutrophils Percent Auto 68.9 45 - 73 % [facility] Imm Gran Pct Auto 0.3 0.0 - 0.4 % [facility] Lymphocytes Percent Auto 21.1 20 - 40 % [facility] Monocytes Percent Auto 8.1 2 - 11 % [facility] Eosinophils Percent Auto 1.0 0 - 4 % [facility] Basophils Percent Auto 0.6 0 - 2 % [facility] NRBC Pct Auto 0.0 0.0 - 0.2 /100WBC [facility] Neutrophils Absolute Auto 4.9 2.0 - 8.3 x10*3/uL [facility] Imm Gran Abs Auto 0.02 0.00 - 0.03 X10*3/uL [facility] Lymphocytes Absolute Auto 1.5 1.2 - 4.9 X10*3/uL [facility] Monocytes Absolute Auto 0.6 0.1 - 1.2 X10*3/uL [facility] Eosinophils Absolute Auto 0.1 0.0 - 0.4 X10*3/uL [facility] Basophils Absolute Auto 0.0 0.0 - 0.2 X10*3/uL [facility] NRBC Abs Auto 0.000 0.0 - 0.012 X10*3/uL [facility] 09/30/2024 4:26 PM EST 09/30/2024 4:29 PM EST us Generic External Data Provider LAB BLOOD ORDERAB LES Final Result [facility] [address] [place] [address] [phone] documented in this encounter Visit Diagnoses Diagnosis Renal calculi- Primary Calculus of kidney Hydronephrosis, unspecified hydronephrosis type documented in this encounter Additional Health Concerns Assessment Noted Time PHQ-9 Depression Total Score: 0 07/17/20 10:33 AM EST documented as of this encounter Care Teams Drafter Chief Design Relationship Specialty Start Date End Date Ashely Frankel MD [address] [place] [address] PCP - General Family Medicine 08/28/[address] 3rd [place] [address] Gastroenterology 07/17/24 Kishore Dorsey MD [address] [place] [address] Urology 07/17/24 Raheel Gee [address] [place] [address] Pulmonary Disease 07/17/[address] [facility] [address] [place] [address] Cardiology 07/17/24 Sergio Hackett [address] [place] [address] Orthopaedic Surgery 07/17/24 Dominga Silva, Mehrdad [address] [place] [address] Pharmacist Internal Medicine 07/22/24 documented as of this encounter
--- OUTSIDE RECORDS SUMMARY | 2024-10-26 14:21 | XMS_ITS | Encounter Summary ---
Author Organization [employer] Address [address] [place] [address] [address]t [place] [address] Care Team Providers Care Tunnel Elastic Operator Zigzag Name Role Phone Ashley Frankel MD Primary Care Provider [phone] Viktor November Unavailable Kishore Dorsey MD Unavailable Raheel Gee Unavailable [phone] Riya Fulton Unavailable Sergio Hackett Unavailable Unavailable Dominga Silva PharmD Unavailable Reason for Visit * Reason Onset Date Comments Appointment Request 08/05/2024 Encounter Details Date Type Department Care Team (Late st Contact Info) Description 08/05/[address] [facility] MEDICINE [address] [place] [address] Ashley Frankel MD [address] [place] [address] Appointment Request Social History Tobacco [...] the past 12 months, has t he [employer], gas, oil or water [employer] threatened to shut off services in your [...] [facility] MEDICINE [address] [place] [phone] Dominga Silva, PharmD [address] [place] [address] 12/09/2024 8:00 AM EDT Office Visit [facility] ADULT DENTAL [address] [place] [phone] Jackie Peacock 01/23/2025 9:45 AM EDT Office Visit [facility] MEDICINE [address] [place] [phone] Ashley Frankel MD [address] [place] [address] documented as of this encounter Visit Diagnoses Not on filedocumented in this encounter Additional Health Concerns Assessment Noted Time PHQ-9 Depression Total Score: 0 07/17/20 24 10:33 AM EST documented as of this encounter Care Teams Tunnel Elastic Operator Zigzag Relationship Specialty Start Date End Date Ashley Frankel MD [address] [place] [address] PCP - General Family Medicine 08/28/18November [address] 3rd [place] [address] Gastroenterology 07/17/24 Kishore Dorsey MD [address] [place] [address] Urology 07/17/24 Raheel Gee [address] [place], [place] [address] Pulmonary Disease 07/17/24 Riya Fulton 11 [facility] [address] [place] [address] Cardiology 07/17/24 Sergio Hackett [address] [place] [address] Orthopaedic Surgery 07/17/24 Dominga Silva, Mehrdad [address] [place] [address] Pharmacist Internal Medicine 07/22/24 [facility] 10/10/24 documented as of this encounter
--- OUTSIDE RECORDS SUMMARY | 2024-10-26 14:21 | XMS_ITS | Encounter Summary ---
Author Organization [employer] Address [address] [facility] 7t [place] [address] Care Team Providers Care Long Distance Operator Name Role Phone Ashley Frankel MD Primary Care Provider [phone] Viktor November Unavailable Kishore Dorsey MD Unavailable Raheel Gee Unavailable [phone] Riya Fulton Unavailable Sergio Hackett Unavailable Unavailable Dominga Silva PharmD Unavailable Reason for Visit * Reason Onset Date Comments chartprep 10/17/2024 Encounter Details Date Type Department Care Team (Late st Contact Info) Description 10/17/2024 Telephone [facility] MEDICINE [address] [place] [address] Ashley Frankel MD [address] [place], [place] [phone] chartprep Social History Tobacco Use Types Packs/Day [...] the past 12 months, has t he [employer], gas, oil or water [employer] threatened to shut off services in your [...] 10/28/2024 9:00 AM EST Medication Management [facility] MEDICINE [address] [place] [address] Dominga Silva, PharmD [address] [place] [address] 12/09/2024 8:00 AM EDT Office Visit [facility] ADULT DENTAL [address] [place] [address] Jackie Peacock 01/23/2025 9:45 AM EDT Office Visit [facility] MEDICINE [address] [place] [address] Ashley Frankel MD [address] [place] [address] documented as of this encounter Visit Diagnoses Not on filedocumented in this encounter Additional Health Concerns Assessment Noted Time PHQ-9 Depression Total Score: 0 07/17/20 10:33 AM EST documented as of this encounter Care Teams Long Distance Operator Relationship Specialty Start Date End Date Ashley Frankel MD [address] [place] [address] PCP - General Family Medicine 08/28/18November 11 [facility] 3rd [place] [address] Gastroenterology 07/17/24 Kishore Dorsey MD 10 [facility] [address] [place] [address] Urology 07/17/24 Raheel Gee 5 [place], [place] [address] Pulmonary Disease 07/17/24 Riya Fulton [address] [address] Cardiology 07/17/24 Sergio Hackett [address] [place] [address] Orthopaedic Surgery 07/17/24 Dominga Silva, AnanthD [address] [place] [address] Pharmacist Internal Medicine 07/22/24 [facility] 10/10/24 documented as of this encounter
--- OUTSIDE RECORDS SUMMARY | 2024-10-26 14:21 | XMS_ITS | Encounter Summary ---
Author Organization [employer] Address 75 [facility] 7t [place] [address] Care Team Providers Care Timber Watchman Name Role Phone Ashley Frankel MD Primary Care Provider [phone] Viktor November Unavailable Kishore Dorsey MD Unavailable Raheel Gee Unavailable [phone] Riya Fulton Unavailable Sergio Hackett Unavailable Unavailable Dominga SilvaD Unavailable Reason for Visit * Reason Comments Back Pain Encounter Details Date Type Department Care Team (Late st Contact Info) Description 10/26/2024 9:20 AM EST Office Visit [facility] [address] [place] [address] [phone] Bryan Coleman MD [address] [place], [place] [phone] Acute right-sided low back pain with bilateral sciatica (Primary Dx); Nephrolithiasis; Constipation, unspecified constipation type Social History Tobacco Use Types Packs/Day [...] Sign Reading Time Taken Comments Blood Pressure 152/88 10/26/2024 8:58 AM EST Pulse 67 10/26/2024 8:58 AM EST Temperature 35.3 ??C (95.5 ??F) 10/26/2024 8:58 AM ES T Respiratory Rate 16 10/26/2024 8:58 AM EST Oxygen Saturation 98% 10/26/2024 8:58 AM EST Inhaled Oxygen Concentration - - Weight 79.2 kg (174 lb 9.6 oz) 10/26/2024 8:58 A M EST Height 170.2 cm (5' 7 ) 10/26/2024 8:58 AM EST Body Mass Index 27.35 10/26/2024 8:58 AM EST documented in this encounter Progress Notes * Bryan Coleman MD - 10/26/2024 9:20 AM EST Subjective History was provided by the patient. Bobby Velasco is a 59 y.o. male who presents to Monday [facility] due to right lower back pain and constipation. Recent hospital admission for renal stone (09/30 - 10/02/2024). U/S showed moderate to severe right hydronephrosis with a 9 x 4 x 7 mm stone in the distal right ureter. Status post right ureteralstent. States he has passed few small stones since. Has an upcoming follow up with Urology in 2 days. Taking Pyridium prn. Also with ongoing constipation, not improved by prune juice. No significant abdominal pain. Denies N/V. Denies F/C. No gross hematuria or dysuria. Objective Vitals: 10/26/24 0858 BP: (!) 152/88 BP Location: Left arm Patient Position: Sitting BP Cuff Size: Adult Pulse: 67 Resp: 16 Temp: 95.5 ??F (35.3 ??C) TempSrc: Temporal SpO2: 98% Weight: 174 lb 9.6 oz (79.2 kg) Height: 5' 7 (1.702 m) Physical Exam Vitals reviewed. Constitutional: Appearance: Normal appearance. HENT: Head: Normocephalic and atraumatic. Right Ear: External ear normal. Left Ear: External ear normal. Nose: Nose normal. Mouth/Throat: Mouth: Mucous membranes are moist. Pharynx: Oropharynx is clear. Eyes: Extraocular Movements: Extraocular movements intact. Conjunctiva/sclera: Conjunctivae normal. Cardiovascular: Rate and Rhythm: Normal rate and regular rhythm. Heart sounds: Normal heart sounds. Pulmonary: Effort: Pulmonary effort is normal. Breath sounds: Normal breath sounds. Abdominal: General: Abdomen is flat. Bowel sounds are normal. There is no distension. Palpations: Abdomen is soft. Tenderness: There is no abdominal tenderness. There is no right CVA tenderness, left CVA tenderness, guarding or rebound. Musculoskeletal: General: Tenderness (Tenderness in the right lower lumbar paravertebral area (below the CVA)) present. Normal range of motion. Cervical back: Normal range of motion and neck supple. Skin: General: Skin is warm and dry. Neurological: General: No focal deficit present. Mental Status: He is alert and oriented to person, place, and time. Psychiatric: Mood and Affect: Mood normal. Behavior: Behavior normal. Thought Content: Thought content normal. Judgment: Judgment normal. Office Visit on 10/26/2024 Component Date Value Ref Range Status Color, UA 10/26/2024 Red Final Clarity, UA 10/26/2024 Cloudy Final Glucose, UA 10/26/2024 Negative Final Bilirubin, UA 10/26/2024 Negative Final Ketones, UA 10/26/2024 Negative Final Spec Grav, UA 10/26/2024 1.030 Final Blood, UA 10/26/2024 Positive (A) Negative, None Detected Final large pH, UA 10/26/2024 5.5 Final Protein, UA 10/26/2024 Few 15 Final 100mg/dl Urobilinogen, UA 10/26/2024 0.2 Final Leukocytes, UA 10/26/2024 Trace Negative, Rare, Trace Final Nitrite, UA 10/26/2024 Negative Negative, None Detected Final Appearance, UA 10/26/2024 cloudy Final QC Media Lot # 10/26/2024 [id number] Final Lot# Expiration Date 10/26/2024 113,025 Final Bobby was seen today for back pain. Diagnoses and all orders for this visit: Acute right-sided low back pain with bilateral sciatica (Primary) - Culture, Urine, Routine; Future - POCT urinalysis dipstick manually resulted - Discontinue: cyclobenzaprine (Flexeril) 10 MG tablet; Take 1 tablet (10 mg) by mouth if needed inthe morning, at noon, and at bedtime for muscle spasms for up to 7 days. One tab po at bedtime prn pain of muscles, do not drive with medicaion - cyclobenzaprine (Flexeril) 10 MG tablet; Take 1 tablet (10 mg) by mouth if needed in the morning,at noon, and at bedtime for muscle spasms for up to 7 days. Nephrolithiasis Constipation, unspecified constipation type - polyethylene glycol, PEG, 3350 (MiraLax) 17 GM/SCOOP powder; 17 grams in 8-12 oz water/juice/Gatorade PO daily prn constipation Patient presents to Monday [facility] due to right lower back pain and constipation Recent diagnosis of right ureteral stone (9mm) with hydronephrosis, s/p stent placement Has an upcoming appointment with Urology in 2 days No gross hematuria, but positive blood on POC UA No clinical evidence of UTI Will send out Urine Culture Flexeril prn for back pain Miralax prn for constipation No clinical evidence of acute abdomen Encouraged to contact the clinic if any persistent or worsening symptoms Indications for UC/ER use reviewed documented in this encounter Plan of Treatment Upcoming Encounters Date Type Department Care Team (Late st Contact Info) Description 10/28/2024 9:00 AM EST Medication Management [facility] [address] [place] [address] Dominga Silva PharmD [address] [place] [address] 12/09/2024 8:00 AM EDT Office Visit [facility] [address] [place] [address] Jackie Peacock 01/23/2025 9:45 AM EDT Office Visit [facility] [address] [place] [phone] Ashley Frankel MD [address] [place] [address] Scheduled Orders Name Type Priority Associated Diagnoses Orde r Schedule Culture, Urine, Routine Microbiology Routine Acute right-sided low back pain with bilateral sciatica Expected: 10/26/2024 (Approximate), Expires: 10/26/2025 documented as of this encounter Procedures Procedure Name Priority Date/Time Associated Diagnosis Comments POCT URINALYSIS DIPSTICK Routine 10/26/2024 9:35 AM EST Acute right-sided low back pain with bilateral sciatica documented in this encounter Results * (ABNORMAL) POCT urinalysis dipstick manually resulted (10/26/2024 9:35 AM EST) Color, UA Red Clarity, UA Cloudy Glucose, UA Negative Bilirubin, UA Negative Ketones, UA Negative Spec Grav, UA 1.030 Blood, UA Positive(A) Negative, None Detected Comment:large pH, UA 5.5 Protein, UA Few 15 Comment:100mg/dl Urobilinogen, UA 0.2 Leukocytes, UA Trace Negative, Rare, Trace Nitrite, UA Negative Negative, None Detected Appearance, UA cloudy QC Media Lot # [id number] Lot# Expiration Date 113,025 Urine 10/26/2024 9:35 AM EST Bryan Coleman MD POINT OF CARE TEST ENTER/EDIT OR DERABLES Final Result documented in this encounter Visit Diagnoses Diagnosis Acute right-sided low back pain with bilateral sciatica- Primary Nephrolithiasis Calculus of kidney Constipation, unspecified constipation type documented in this encounter Additional Health Concerns Assessment Noted Time PHQ-9 Depression Total Score: 0 07/17/20 10:33 AM EST documented as of this encounter Care Teams Timber Watchman Relationship Specialty Start Date End Date Ashley Frankel MD [address] [place] [address] PCP - General Family Medicine 08/28/18November [address] [address] Gastroenterology 07/17/24 Kishore Dorsey MD 10 [facility] [address] [place] [address] Urology 07/17/24 Raheel Gee 5 [place], [place] [address] Pulmonary Disease 07/17/24 Riya Fulton [address] [address] Cardiology 07/17/24 Sergio Hackett [address] [place] [address] Orthopaedic Surgery 07/17/24 Dominga Silva PharmD [address] [place] [address] Pharmacist Internal Medicine 07/22/24 [facility] [place] Psychiatry 10/10/24 documented as of this encounter
--- OUTSIDE RECORDS SUMMARY | 2024-10-26 14:21 | XMS_ITS | Encounter Summary ---
Author Organization [employer] Address 75 [facility] 7t [place] [address] Care Team Providers Care Federal Java Developer Name Role Phone Ashley Frankel MD Primary Care Provider [phone] Viktor November Unavailable Kishore Dorsey MD Unavailable [phone] Raheel Gee Unavailable [phone] Riya Fulton Unavailable Sergio Hackett Unavailable Unavailable Dominga Silva PharmD Unavailable Encounter Details Date Type Department Care Team (Late st Contact Info) Description 10/24/2024 Orders Only [facility] External Provider, [facility] Social History Tobacco Use Types Packs/Day Years [...] Description 10/28/2024 9:00 AM EST Medication Management [facility] [address] [place] [phone] Dominga Silva PharmD [address] [place] [address] 12/09/2024 8:00 AM EDT Office Visit [facility] [address] [place] [address] [phone] Jackie Peacock 01/23/2025 9:45 AM EDT Office Visit [facility] [address] [place] [address] Ashley Frankel MD [address] [place] [address] documented as of this encounter Procedures Procedure [...] HIGH SENSITIVITY 3.4 <3.5 - 35.0 ng/L [facility] Comment:The Schmidt high sens itivity Troponin-I results should beused in conjunction with other diagnostic information suchas ECG, clinical observations and information, and patientsymptoms to aid in the diagnosis of IL. 10/24/2024 4:58 PM EST 10/24/2024 5:02 PM EST us Generic External Data Provider LAB BLOOD ORDERAB LES Final Result Performing Organization Address City/[facility]/ZIP Co de Phone Number [facility] [address] [place] [address] [phone] * High Sensitivity Troponin I (10/24/2024 2:30 PM EST) TROPONIN I HIGH SENSITIVITY 4.1 <3.5 - 35.0 ng/L [facility] Comment:The Schmidt high sens itivity Troponin-I results should beused in conjunction with other diagnostic information suchas ECG, clinical observations and information, and patientsymptoms to aid in the diagnosis of IL. 10/24/2024 2:30 PM EST 10/24/2024 2:33 PM EST us Generic External Data Provider LAB BLOOD ORDERAB LES Final Result Performing Organization Address City/[facility]/ZIP Co de Phone Number [facility] [address] [place] [phone] * B Type Natriuretic Peptide (BNP) (10/24/2024 2:30 PM EST) B Type Natriuretic Peptide 32 <100 pg/mL [facility] Comment:For those patients w ho are being treated with Natrecor(nesiritide, recombinant BNP), BNP testing should beperformed at least two hours post treatment in order toensure that only endogenous levels of BNP are detected. 10/24/2024 2:30 PM EST 10/24/2024 2:33 PM EST us Generic External Data Provider LAB BLOOD ORDERAB LES Final Result [facility] [address] [place] [phone] * (ABNORMAL) Comprehensive Metabolic Panel (10/24/2024 2:30 PM EST) Sodium 141 135 - 145 mmol/L [facility] Potassium 3.8 3.3 - 5.1 mmol/L [facility] Chloride 108 96 - 108 mmol/L [facility] Carbon Dioxide 28 22 - 29 mmol/L [facility] Anion Gap 9(L) 12 - 20 [facility] Urea Nitrogen (BUN) 12 9 - 16 mg/dL [facility] Creatinine, Serum 0.91 0.5 - 1.4 mg/dL [facility] Creatinine Clr Calc Pharmacy 80.7 [facility] Comment:eGFR (calculated fro m the MDRD study equation) and eCrCl(calculated from the Cockcroft-Gault equation) are based ondifferent parameters and may not yield comparable results.If eCrCl result is absurd, please check patient'sheight/weight. Estimated Glomerular Filt Rate >60 [facility] Comment:Chronic Kidney Disea se: Estimated GFR < 60 mL/min/1.79p6Fgpvtn Kidney Disease: Estimated GFR < 15 mL/min/1.73m2 Glucose 197(H) 60 - 115 mg/dL [facility] Calcium 8.9 8.4 - 10.2 mg/dL [facility] Bilirubin, Total 0.7 0.0 - 1.0 mg/dL [facility] Aspartate Amino Transferase 22 5 - 37 U/L [facility] Alanine Aminotransferase 12 0 - 40 U/L [facility] Total Protein 6.8 6.5 - 8.0 g/dL [facility] Albumin Level 3.9 3.5 - 5.0 g/dL [facility] Alkaline Phosphatase 88 39 - 117 U/L [facility] 10/24/2024 2:30 PM EST 10/24/2024 2:33 PM EST Generic External Data Provider LAB BLOOD ORDERAB LES Final Result Performing Organization Address [facility] Co de Phone Number [facility] [address] [place] [phone] * Partial Thromboplastin Time, Activated (APTT) (10/24/2024 2:30 PM EST) Partial Thromboplastin Time 35.7 26.0 - 36.8 SEC [facility] Comment:For information rega rding the monitoring of direct thrombininhibitors, please refer to Pharmacy. 10/24/2024 2:30 PM EST 10/24/2024 2:33 PM EST us Generic External Data Provider LAB BLOOD ORDERAB LES Final Result Performing Organization Address [facility] Co de Phone Number [facility] [address] [place] [phone] * Prothrombin Time-INR (10/24/2024 2:30 PM EST) Prothrombin Time 10.9 10.9 - 12.4 SEC [facility] INTERNATIONAL NORM RATIO 0.9 0.9 - 1.1 [facility] Comment:INTERNATIONAL NORMAL IZED RATIO (INR) [...] Provider LAB BLOOD ORDERAB LES Final Result [facility] [address] [place] [address] [phone] * (ABNORMAL) CBC auto differential (10/24/2024 2:30 PM EST) White Blood Count 5.1 4.8 - 10.8 X10*3/uL [facility] Red Blood Count 4.31(L) 4.60 - 5.80 X10*6/uL [facility] Hemoglobin 13.0(L) 14.0 - 18.0 g/dl [facility] Hematocrit 39.1(L) 42.0 - 52.0 % [facility] Mean Corpuscular Volume 90.7 80.0 - 98.0 fL [facility] Mean Corpuscular Hemoglobin 30.2 27.0 - 33.0 pg [facility] Mean Corpuscular HGB Conc 33.2 31.0 - 36.0 g/dl [facility] Red Cell Distribution Width 12.6 11.0 - 16.0 % [facility] Platelet Count 290 160 - 400 X10*3/uL [facility] Mean Platelet Volume 9.7 9.4 - 12.4 fL [facility] Neutrophils Percent Auto 68.7 45 - 73 % [facility] Imm Gran Pct Auto 0.2 0.0 - 0.4 % [facility] Lymphocytes Percent Auto 19.5(L) 20 - 40 % [facility] Monocytes Percent Auto 9.8 2 - 11 % [facility] Eosinophils Percent Auto 1.2 0 - 4 % [facility] Basophils Percent Auto 0.6 0 - 2 % [facility] NRBC Pct Auto 0.0 0.0 - 0.2 /100WBC [facility] Neutrophils Absolute Auto 3.5 2.0 - 8.3 x10*3/uL [facility] Imm Gran Abs Auto 0.01 0.00 - 0.03 X10*3/uL [facility] Lymphocytes Absolute Auto 1.0(L) 1.2 - 4.9 X10*3/uL [facility] Monocytes Absolute Auto 0.5 0.1 - 1.2 X10*3/uL [facility] Eosinophils Absolute Auto 0.1 0.0 - 0.4 X10*3/uL [facility] Basophils Absolute Auto 0.0 0.0 - 0.2 X10*3/uL [facility] NRBC Abs Auto 0.000 0.0 - 0.012 X10*3/uL [facility] 10/24/2024 2:30 PM EST 10/24/2024 2:33 PM EST us Generic External Data Provider LAB BLOOD ORDERAB LES Final Result Performing Organization Address City/State/[facility] Co de Phone Number [facility] [address] [place] [address] [phone] * XR Chest 1 View (10/24/2024 1:22 PM EST) Anatomical Region Laterality Modality Chest Radiographic Hannah ging 10/24/2024 1:22 PM EST Narrative 10/24/2024 1:45 PM EST ? [facility] ?[address] ?[place] [address] ?XRay Report ? Signed ? Patient: Krista,Bobby ?MR#: [id number] ? : 1965 ?Acct:[id number] ? Age/Sex: 59 / M ?ADM Date: 02/27/25 ? Loc: HO.ED ? Attending Dr: ? Ordering Physician: Alexy Yang ?? Date of Service: 10/24/24 ?? Procedure(s): XR chest 1V ?? Accession Number(s): [id number] ? cc: Alexy Yang; Ashley Frankel MD [...] DD/ 1322 ? TD/TT: 10/24/24 1336 ? Mass Communications Professor: ? Procedure Note Donjacobter, Image - 10/24/2024 [place] [address] XRay Report Signed Patient: Pierce Velasco#: [id number] : 1965Acct:[id number] Age/Sex: 59 / MADM Date: 10/24/24 Loc: HO.ED Attending Dr: Ordering Physician: Alexy Yang Date of Service: 10/24/24 Procedure(s): XR chest 1V Accession Number(s): [id number] cc: Alexy Yang; Ashley Frankel MD EXAMINATION: [...] 10/24/24 1342 DD/ 1322 TD/TT: 10/24/24 1336 Mass Communications Professor: [facility] External Provider IMG XR PROCEDURES Final Result documented in this encounter Visit Diagnoses Not on filedocumented in this encounter Additional Health Concerns Assessment Noted Time PHQ-9 Depression Total Score: 0 07/17/20 10:33 AM EST documented as of this encounter Care Teams Federal Java Developer Relationship Specialty Start Date End Date Ashley Frankel MD [address] [place] [address] PCP - General Family Medicine 08/28/18November [address] [place] [address] Gastroenterology 07/17/24 Kishore Dorsey MD 10 [facility] [address] [place] [address] Urology 07/17/24 Raheel Gee 5 [place], [place] 10[address] Pulmonary Disease 07/17/24 Riya Fulton [address] [facility] [address] [place] [address] Cardiology 07/17/24 Sergio Hackett [address] [place] [address] Orthopaedic Surgery 07/17/24 Dominga Silva, Mehrdad [address] [place] [address] Pharmacist Internal Medicine 07/22/24 [facility] Psych[facility]ry 10/10/24 documented as of this encounter
--- OUTSIDE RECORDS SUMMARY | 2024-10-26 14:21 | XMS_ITS | Encounter Summary ---
Author Organization [employer] Address [address] [place] [address] 7t [place] [address] Care Team Providers Care Iridologist Name Role Phone Ashley Frankel MD Primary Care Provider [phone] Viktor November Unavailable Kishore Dorsey MD Unavailable Raheel Gee Unavailable [phone] Riya Fulton Unavailable Sergio Hackett Unavailable Unavailable Dominga Silva PharmD Unavailable Encounter Details Date Type Department Care Team (Late st Contact Info) Description 07/25/2022 Abstract [facility] [address] [place] [address] Dental, Provider, DDS Social History Tobacco Use [...] 9:00 AM EST Medication Management [facility] [address] [place] [address] Dominga Silva, PharmD [address] [place] [address] 12/09/2024 8:00 AM EDT Office Visit [facility] [address] [place] [address] Jackie Peacock 01/23/2025 9:45 AM EDT Office Visit [facility] [address] [place] [address] Ashley Frankel MD [address] [place] [address] documented as of this encounter Procedures Procedure [...] on filedocumented in this encounter Care Teams Iridologist Relationship Specialty Start Date End Date Ashley Frankel MD [address] [place] [address] PCP - General Family Medicine 08/28/18 Viktor Sonya 11 [facility] 3rd [place] [address] Gastroenterology 07/17/24 Kishore Dorsey MD [address] [place] [address] Urology 07/17/24 Raheel Gee 5 [facility] [place] 10[address] Pulmonary Disease 07/17/24 Riya Fulton [address] 3rd [place] [address] Cardiology 07/17/24 Sergio Hackett [facility] [address] [place] [address] Orthopaedic Surgery 07/17/24 Dominga Silva, Mehrdad [address] [place] [address] Pharmacist Internal Medicine 07/22/24 [facility] 10/10/24 documented as of this encounter
--- OUTSIDE RECORDS SUMMARY | 2024-10-26 14:21 | XMS_ITS | Encounter Summary ---
Author Organization [employer] Address 75 [facility] 7t [place] [address] Care Team Providers Care Stick Puller Name Role Phone Ashley Frankel MD Primary Care Provider [phone] Viktor November Unavailable Kishore Dorsey MD Unavailable Raheel Gee Unavailable [phone] Riya Fulton Unavailable Sergio Hackett Unavailable Unavailable Dominga Silva PharmD Unavailable [phone] Encounter Details Date Type Department Care Team (Late st Contact Info) Description 07/18/2023 Telephone [facility] MEDICINE [address] [place], [place] [phone] Ashley Frankel MD [address] [place], [place] [phone] Social History Tobacco Use Types Packs/Day Years [...] Bia Rose - 08/10/2023 1:42 PM EST Outpatient Physical Therapist called pt to request verification of insurance/Medicare [...] Description 10/28/2024 9:00 AM EST Medication Management [facility] MEDICINE [address] [place] [address] Dominga Silva, PharmD [address] [place] [address] 12/09/2024 8:00 AM EDT Office Visit [facility] ADULT DENTAL [address] [place] [address] Jackie Peacock 01/23/2025 9:45 AM EDT Office Visit [facility] MEDIC[facility] [address] [place] [address] Ashley Frankel MD [address] [place] [address] documented as of this encounter Visit Diagnoses Not on filedocumented in this encounter Care Teams Stick Puller Relationship Specialty Start Date End Date Ashley Frankel MD [address] [place] [address] PCP - General Family Medicine 08/28/18 Viktor November [address] [place] [address] Gastroenterology 07/17/24 Kishore Dorsey MD [address] [place] [address] Urology 07/17/24 Raheel Gee 5 [place], [place] 10[address] Pulmonary Disease 07/17/24 Riya Fulton 11 [facility] [address]rd [place] [address] Cardiology 07/17/24 Sergio Hackett 300 [facility] [place] [address] Orthopaedic Surgery 07/17/24 Dominga Silva PharmD [address] [place] [address] Pharmacist Internal Medicine 07/22/24 [facility] 10/10/24 documented as of this encounter
--- OUTSIDE RECORDS SUMMARY | 2024-10-26 14:21 | XMS_ITS | Clinical Summary ---
Author Organization [employer] Address [address] [place] [address] 7 [place] [address] Care Team Providers Care Facilities Planner Name Role Phone Ashley Frankel MD Primary Care Provider [phone] Hoang November Unavailable Kishore Dorsey MD Unavailable Raheel Gee Unavailable [phone] Riya Fulton Unavailable Sergio Hackett Unavailable [...] tract symptoms, symptom details unspecified 5 mg. 024 Active amLODIPine (Norvasc) 10 MG tabletIndicatio ns:Primary hypertension Take 1 tab po daily 90 tablet 3 Active chlorthalidone (Hygroton) 25 MG tabletIndicatio ns:Primary hypertension Take 1 tab po daily 90 tablet 3 024 Active FreeStyle lancetsIndicati ons:Type 2 diabetes mellitus without complication, without long-term current use of insulin (CMS/FORMERLY [facility]) 1 each by Other route 2 times [...] po qhs 90 tablet 3 025 Active polyethylene glycol, PEG, 3350 (MiraLax) 17 GM/SCOOP powderIndicatio ns:Constipation , unspecified constipation type 17 grams in 8-12 oz water/juice/Gat orade PO daily prn constipation 527 g 2 025 Active cyclobenzaprine (Flexeril) 10 MG tabletIndicatio ns:Acute right-sided low back pain with bilateral sciatica Take 1 tablet (10 mg) by mouth if needed in the morning, at noon, and at bedtime for muscle spasms for up to 7 days. 20 tablet 025 2024 Active lisinopril 40 MG tabletIndicatio ns:Primary hypertension [...] by mouth Once per day. 30 capsule 025 2024 Discontinued(M ed list cleanup (will [...] mouth Once per day. 527 g 2 025 2024 Discontinued(M ed list cleanup (will not trigger notification to Pharmacy)) atorvastatin (Lipitor) 80 MG tabletIndicatio ns:Dyslipidemia 80 mg. 025 2024 Discontinued(R eorder (will not trigger notification to Pharmacy)) tamsulosin (Flomax) 0.4 MG 24 hr capsuleIndicati ons:Benign prostatic hyperplasia with urinary obstruction 0.4 mg. 025 2024 Discontinued(M ed list cleanup (will not trigger notification to Pharmacy)) cefuroxime (Ceftin) 500 MG tabletIndicatio ns:Dysuria Take 1 tablet by mouth 2 times daily. 025 2024 Discontinued(M ed list cleanup (will not trigger notification to Pharmacy)) cyclobenzaprine (Flexeril) 10 MG tabletIndicatio ns:Acute right-sided low back pain with bilateral sciatica Take 1 tablet (10 mg) by mouth if needed in the morning, at noon, and at bedtime for muscle spasms for up to 7 days. One tab po at bedtime prn pain of muscles, do not drive with medicaion 20 tablet 2024 Discontinued Active Problems Patient Care Coordination No te Formatting of this note migh t be different from the original. [facility] Melter Operator: Kamila, member services number [phone], provider services line, , option 4 [employer]: refused services Problem Noted Date Diagnosed [...] due after 07/17/25 -eye care facilitated by [facility] -dental home is [facility] -health care proxy paperwork given 11/13/2023, given again 07/17/24 Assessment & Plan (07/17/2024 10:32 AM EST): -next physical exam due after 07/17/25 -eye care facilitated by [facility] -dental home is [facility] -health care proxy paperwork given 11/13/2023, given again 07/17/24 Assessment & Plan (11/13/2023 10:07 AM EDT): -next physical exam due after 04/27/2024 -eye care facilitated by [facility] -dental home is [facility] -health care proxy paperwork given 11/13/2023 Assessment & Plan (04/27/2023 9:45 AM EDT): -next physical exam due after 04/27/2024. -eye care facilitated by [facility], last visit 01/16/2023 -dental home is [facility] Class 1 obesity 02/24/2023 Erectile [...] the strong evidence that these meds prevent DC/CVA. Continue atorvastatin 80qhs. Encouraged to take. Anxiety [...] CT May 2021 -CT 01/24/[address] Raheel Gee MD, redemonstration of innumerable [...] and Spine. -Saw Dr. Evin Bhat at [facility] 02/2021 -referred to orthopedic on 11/13/2023 - [...] and Spine. -Saw Dr. Evin Bhat at [facility] 02/2021 -referred to orthopedic on 11/13/2023 Assessment [...] and Spine. Saw Dr. Evin Bhat at [facility] 02/2021 Assessment & Plan (04/27/2023 9:22 AM [...] and Spine. Saw Dr. Evin Bhat at [facility] 02/2021 Assessment & Plan (11/07/2022 11:31 AM [...] (08/21/2024): -Followed by Dr. Raheel Gee at [facility]. Note from 08/19/24 reviewed -Well controlled [...] Managment Program with our YUE Cronin 07/17/24 - Ordered Labs 07/17/24 - Follow [...] right ureteroscopy laser lithotripsy stent insertion, 6 Divehi by [address] Mayda Rodriguez. [...] mucosal appearance left -CT abd/pelvis w/o contrast 2018: The kidneys are normal in size, shape, [...] mucosal appearance left -CT abd/pelvis w/o contrast 2018: The kidneys are normal in size, shape, [...] Encounters Date Type Department Care Team Description 10/26/2024 9:20 AM EST Office Visit [facility] [address] [place] [id number] Bryan Coleman MD Acute right-sided low back pain with bilateral sciatica (Primary Dx); Nephrolithiasis; Constipation, unspecified constipation type 10/24/2024 9:15 AM EST Office Visit [facility] [address] [place] [address] Ashley Frankel MD Primary hypertension (Primary Dx); Weight loss, non-intentional; 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 (CMS/HCC); Overweight; Dietary counseling; Exercise counseling; Dyslipidemia; Type 2 diabetes mellitus without complication, without long-term current use of insulin ([facility]); Pulmonary nodules 10/24/2024 Orders Only [facility] External Provider, [facility] 10/24/2024 Travel 10/17/[address] [address] Ashley Frankel MD 10/17/[address] [address] Ashley Frankel MD chartprep 10/10/2024 1:40 PM EST Office Visit [address] [address] Ashley Frankel MD Dysuria (Primary Dx); Dyslipidemia; Gastroesophageal reflux disease, unspecified whether esophagitis present; Benign prostatic hyperplasia with urinary obstruction; Anxiety 10/10/[address] [address] Ashley Frankel MD 10/10/2024 Orders Only GENERIC EXTERNAL DATA DEPARTMENT Provider, Generic External Data 10/07/[address] [address] Ashley Frankel MD Nurse Triage 09/30/[address] [address] Aurora Alexandre, RN Results 09/30/2024 Orders Only [address] [address] Ashley Frankel MD Renal calculi (Primary Dx); Hydronephrosis, unspecified hydronephrosis type 09/28/2024 11:00 AM EST Office Visit [address] [address] Les Hay MD Constipation, unspecified constipation type (Primary Dx); Primary hypertension 09/28/2024 Travel 09/27/2024 11:00 AM EST Office Visit [address] [address] Malika Mac MD Other microscopic hematuria (Primary Dx); Acute bilateral low back pain without sciatica 09/27/[address] [address] Ashley Frankel MD Nurse Triage 09/18/[address] [address] Nisha Smith MD Allergic rhinitis, unspecified seasonality, unspecified trigger 09/17/[address] [address] Ashley Frankel MD 09/09/2024 Orders Only [facility] External Provider, [facility] Renal calculi (Primary Dx) 08/26/[address] [address] Ashley Frankel MD 08/14/2024 Orders Only GENERIC EXTERNAL DATA DEPARTMENT Provider, Generic External Data Abnormal CXR (Primary Dx) 08/13/2024 Orders Only GENERIC EXTERNAL DATA DEPARTMENT Provider, Generic External Data 08/12/2024 Travel 08/09/2024 8:30 AM EST Office Visit [facility] [address] [place] [address] Naida Yates, DDS Teeth missing (Primary Dx) 08/05/[address] [address] Kala [place], [place] September Recall 08/05/[address] [address] Ashley Frankel MD Appointment Request 08/01/2024 9:30 AM EST Office Visit [facility] [address] [place] [address] Edward Yatesfemia, DDS Teeth missing (Primary Dx) from Last 3 Months Immunizations Name Administration [...] is your housing situation today? I have joashish sommer 11/02/[address] you [...] Mass Index 27.35 10/26/2024 8:58 AM EST Plan of Treatment Upcoming Encounters Date Type Department Care Team (Late st Contact Info) Description 10/28/2024 9:00 AM EST Medication Management [facility] [address] [place] [phone] Dominga Silva, PharmD [address] [place] [address] 12/09/2024 8:00 AM EDT Office Visit [facility] [address] [place] [phone] Jackie Peacock 01/23/2025 9:45 AM EDT Office Visit [facility] [address] [place] [address] Ashley Frankel MD [address] [place] [phone] Health Maintenance Due Date Last Done Comments [...] 06/19/2024, Additional history exists COVID-19 Vaccine ( season) 2025 Postponed from [...] right-sided low back pain with bilateral sciatica HIGH SENSITIVITY TROPONIN I Routine 10/24/2024 4:58 [...] EST FL GUIDANCE IN OR Routine 10/01/2024 4:1 5 PM EST LIPASE Routine 09/30/2024 4:26 PM [...] dipstick manually resulted (10/26/2024 9:35 AM EST) Only the most recent of2 resultswithin the time period is included. Color, UA Red Clarity, UA Cloudy Glucose, UA Negative Bilirubin, UA Negative Ketones, UA Negative Spec Grav, UA 1.030 Blood, UA Positive(A) Negative, None Detected Comment:large pH, UA 5.5 Protein, UA Few 15 Comment:100mg/dl Urobilinogen, UA 0.2 Leukocytes, UA Trace Negative, Rare, Trace Nitrite, UA Negative Negative, None Detected Appearance, UA cloudy QC Media Lot # [id number] Lot# Expiration Date Urine 10/26/2024 9:35 AM EST Bryan Coleman MD POINT OF CARE TEST ENTER/EDIT OR DERABLES Final Result * High Sensitivity Troponin I (10/24/2024 4:58 PM EST) Only the most recent of5 resultswithin the time period is included. TROPONIN I HIGH SENSITIVITY 3.4 <3.5 - 35.0 ng/L [facility] Comment:The Schmidt high sens itivity Troponin-I results should beused in conjunction with other diagnostic information suchas ECG, clinical observations and information, and patientsymptoms to aid in the diagnosis of DC. 10/24/2024 4:58 PM EST 10/24/2024 5:02 PM EST us Generic External Data Provider LAB BLOOD ORDERAB LES Final Result [facility] [address] [place] [phone] * (ABNORMAL) CBC auto differential (10/24/2024 2:30 PM EST) Only the most recent of5 resultswithin the time period is included. White Blood Count 5.1 4.8 - 10.8 X10*3/uL [facility] Red Blood Count 4.31(L) 4.60 - 5.80 X10*6/uL [facility] Hemoglobin 13.0(L) 14.0 - 18.0 g/dl [facility] Hematocrit 39.1(L) 42.0 - 52.0 % [facility] Mean Corpuscular Volume 90.7 80.0 - 98.0 fL [facility] Mean Corpuscular Hemoglobin 30.2 27.0 - 33.0 pg [facility] Mean Corpuscular HGB Conc 33.2 31.0 - 36.0 g/dl [facility] Red Cell Distribution Width 12.6 11.0 - 16.0 % [facility] Platelet Count 290 160 - 400 X10*3/uL [facility] Mean Platelet Volume 9.7 9.4 - 12.4 fL [facility] Neutrophils Percent Auto 68.7 45 - 73 % [facility] Imm Gran Pct Auto 0.2 0.0 - 0.4 % [facility] Lymphocytes Percent Auto 19.5(L) 20 - 40 % [facility] Monocytes Percent Auto 9.8 2 - 11 % [facility] Eosinophils Percent Auto 1.2 0 - 4 % [facility] Basophils Percent Auto 0.6 0 - 2 % [facility] NRBC Pct Auto 0.0 0.0 - 0.2 /100WBC [facility] Neutrophils Absolute Auto 3.5 2.0 - 8.3 x10*3/uL [facility] Imm Gran Abs Auto 0.01 0.00 - 0.03 X10*3/uL [facility] Lymphocytes Absolute Auto 1.0(L) 1.2 - 4.9 X10*3/uL [facility] Monocytes Absolute Auto 0.5 0.1 - 1.2 X10*3/uL [facility] Eosinophils Absolute Auto 0.1 0.0 - 0.4 X10*3/uL [facility] Basophils Absolute Auto 0.0 0.0 - 0.2 X10*3/uL [facility] NRBC Abs Auto 0.000 0.0 - 0.012 X10*3/uL [facility] 10/24/2024 2:30 PM EST 10/24/2024 2:33 PM EST Generic External Data Provider LAB BLOOD ORDERAB LES Final Result Performing Organization Address [facility] Co de Phone Number [facility] [address] [place] [phone] * Partial Thromboplastin Time, Activated (APTT) (10/24/2024 2:30 PM EST) Partial Thromboplastin Time 35.7 26.0 - 36.8 SEC [facility] Comment:For information rega rding the monitoring of direct thrombininhibitors, please refer to Pharmacy. 10/24/2024 2:30 PM EST 10/24/2024 2:33 PM EST Generic External Data Provider LAB BLOOD ORDERAB LES Final Result Performing Organization Address [facility] Co de Phone Number [facility] [address] [place] [phone] * Prothrombin Time-INR (10/24/2024 2:30 PM EST) Only the most recent of2 resultswithin the time period is included. Prothrombin Time 10.9 10.9 - 12.4 SEC [facility] INTERNATIONAL NORM RATIO 0.9 0.9 - 1.1 [facility] Comment:INTERNATIONAL NORMAL IZED RATIO (INR) REFERENCE [...] ORDERAB LES Final Result Performing Organization Address [facility] Co de Phone Number [facility] [address] [place] [phone] * B Type Natriuretic Peptide (BNP) (10/24/2024 2:30 PM EST) [facility] B Type Natriuretic Peptide 32 <100 pg/mL [facility] Comment:For those patients w ho are being treated with Natrecor(nesiritide, recombinant BNP), BNP testing should beperformed at least two hours post treatment in order toensure that only endogenous levels of BNP are detected. 10/24/2024 2:30 PM EST 10/24/2024 2:33 PM EST [employer] External Data Provider LAB BLOOD ORDERAB LES Final Result Performing Organization Address [facility] de Phone Number [facility] [address] [place] [phone] * (ABNORMAL) Comprehensive Metabolic Panel (10/24/2024 2:30 PM EST) Only the most recent of3 resultswithin the time period is included. [facility] Sodium 141 135 - 145 mmol/L [facility] Potassium 3.8 3.3 - 5.1 mmol/L [facility] Chloride 108 96 - 108 mmol/L [facility] Carbon Dioxide 28 22 - 29 mmol/L [facility] Anion Gap 9(L) 12 - 20 [facility] Urea Nitrogen (BUN) 12 9 - 16 mg/dL [facility] Creatinine, Serum 0.91 0.5 - 1.4 mg/dL [facility] Creatinine Clr Calc Pharmacy 80.7 [facility] Comment:eGFR (calculated fro m the MDRD study equation) and eCrCl(calculated from the Cockcroft-Gault equation) are based ondifferent parameters and may not yield comparable results.If eCrCl result is absurd, please check patient'sheight/weight. Estimated Glomerular Filt Rate >60 [facility] Comment:Chronic Kidney Disea se: Estimated GFR < 60 mL/min/[id number] Kidney Disease: Estimated GFR < 15 mL/min/1.73m2 Glucose 197(H) 60 - 115 mg/dL [facility] Calcium 8.9 8.4 - 10.2 mg/dL [facility] Bilirubin, Total 0.7 0.0 - 1.0 mg/dL [facility] Aspartate Amino Transferase 22 5 - 37 U/L [facility] Alanine Aminotransferase 12 0 - 40 U/L [facility] Total Protein 6.8 6.5 - 8.0 g/dL [facility] Albumin Level 3.9 3.5 - 5.0 g/dL [facility] Alkaline Phosphatase 88 39 - 117 U/L [facility] 10/24/2024 2:30 PM EST 10/24/2024 2:33 PM EST us Generic External Data Provider LAB BLOOD ORDERAB LES Final Result [facility] [address] [place], [place] [phone] * XR Chest 1 View (10/24/2024 1:22 PM EST) Only the most recent of2 resultswithin the time period is included. Anatomical Region Laterality Modality Chest Radiographic Hannah ging 10/24/2024 1:22 PM EST Narrative 10/24/2024 1:45 PM EST ? [facility] ?[address] ?[place] [address] ?XRay Report ? Signed ? Patient: Krista,Bobby ?MR#: [id number] ? : 1965 ?Acct:[id number] ? Age/Sex: 59 / M ?ADM Date: 02/27/25 ? Loc: HO.ED ? Attending Dr: ? Ordering Physician: Alexy Yang ?? Date of Service: 10/24/24 ?? Procedure(s): XR chest 1V ?? Accession Number(s): [id number] ? cc: Alexy Ynag; Ashley Frankel MD ? EXAMINATION: ?? XR [...] DD/ 1322 ? TD/TT: 10/24/24 1336 ? Plate Keeper: ? Procedure Note Reshma, Image - 10/24/2024 [place] [address] XRay Report Signed Patient: Pierce Velasco#: [id number] : 1965Acct:[id number] Age/Sex: 59 / MADM Date: 10/24/24 Loc: HO.ED Attending Dr: Ordering Physician: Alexy Yang Date of Service: 10/24/24 Procedure(s): XR chest 1V Accession Number(s): [id number] cc: Alexy Yang; Ashley Frankel MD EXAMINATION: [...] 10/24/24 1342 DD/ 1322 TD/TT: 10/24/24 1336 Plate Keeper: [facility] External Provider IMG XR PROCEDURES Final Result * Vitamin D, 25-Hydroxy, Total, Immunoassay (10/24/2024 9:22 AM EST) Vitamin D 25-OH Total 39.3 >30 ng/mL [facility] Comment:Health Based Referen ce Values*< 20 ng/mL Chogyasuq36-64 ng/mL Insufficient> 30 ng/mL Sufficient*Colleen GILL. N [...] Frankel MD LAB BLOOD ORDERABLES Final Result [facility] [address] [place] [address] [phone] * TSH W/Reflex to FT4 (10/24/2024 9:22 AM EST) TSH reflex Free T4 1.31 0.32 - 4.0 uIU/mL [facility] Blood Venous blood specimen / Unknown 10/24/2024 9:22 AM EST 10/24/2024 11:48 AM EST Ashley Frankel MD LAB BLOOD ORDERABLES Final Result Performing Organization Address [facility] Co de Phone Number [facility] [address] [place] [phone] * HIV-1/2 Antigen and Antibodies, Fourth Generation, with Reflexes (10/24/2024 9:22 AM EST) HIV AB/AG Nonreactive Nonreactive [facility] Comment:HIV-1 p24 Ag and/or HIV-1/HIV-2 Ab not detected.A test result that is nonreactive does not exclude thepossibility of exposure to or infection with HIV-1 and/orHIV-2. Nonreactive results in this assay for individualswith prior exposure to HIV-1 and/or HIV-2 may be due toantigen and antibody levels that are below the limit ofdetection of this assay.The [employer] HIV Ag/Ab Combo assay result andsupplemental assay results should be interpreted inconjunction with the patient's clinical presentation,history and other laboratory results. If the results areinconsistent with clinical evidence, additional testing issuggested to confirm the result. Blood Venous blood specimen / Unknown 10/24/2024 9:22 AM EST 10/24/2024 11:48 AM EST Ashley Frankel MD LAB BLOOD ORDERABLES Final Result Performing Organization Address [facility] Co de Phone Number [facility] [address] [place] [phone] * Lactate Dehydrogenase (LD) (10/24/2024 9:22 AM EST) Lactate Dehydrogenase 248 118 - 273 U/L [facility] Blood Venous blood specimen / Unknown 10/24/2024 9:22 AM EST 10/24/2024 11:48 AM EST us Ashley Frankel MD LAB BLOOD ORDERABLES Final Result Performing Organization Address [facility] Co de Phone Number [facility] [address] [place] [phone] * Lipase (10/10/2024 12:45 AM EST) Only the most recent of4 resultswithin the time period is included. Lipase 36 8 - 78 U/L [facility] 10/10/2024 12:4 5 AM EST 10/10/2024 12:47 AM EST Generic External Data Provider LAB BLOOD ORDERAB LES Final Result Performing Organization Address [facility] Co de Phone Number [facility] [address] [place] [phone] * FL Guidance in OR (10/01/2024 4:15 PM EST) Anatomical Region Laterality Modality X-Ray Angiograph y 10/01/2024 4:15 PM EST Narrative 10/02/2024 10:09 AM EST ? [facility] ?[address] ?[place] [address] ? Fluoroscopy Report ? Signed ? Patient: Krista,Bobby ?MR#: [id number] ? : 1965 ?Acct:[id number] ? Age/Sex: 59 / M ?ADM Date: 09/30/24 ? Loc: HO.S3 ?344-1 ? Attending Dr: Parveen Breen MD ? Ordering Physician: Mayda Rodriguez MD ?? Date of Service: 10/01/24 ?? Procedure(s): FL guidance in OR ?? Accession Number(s): [id number] ? cc: Mayda Rodriguez MD; Ashley Frankel [...] DD/ 1615 ? TD/TT: 10/01/24 1710 ? Plate Keeper: ? Procedure Note Reshma, Image - 10/02/2024 [place] [address] Fluoroscopy Report Signed Patient: Pierce Velasco#: [id number] : 1965Acct:[id number] Age/Sex: 59 / MADM Date: 09/30/24 Loc: .S3 344-[address]: Parveen Breen MD Ordering Physician: Mayda Rodriguez MD Date of Service: 10/01/24 Procedure(s): FL guidance in OR Accession Number(s): [id number] cc: Mayda Rodriguez MD; Ashley Frankel MD [...] by: Harrison Patel MD 10/02/2024 10:06 AM [facility] Dictated By: Harrison Patel MD Signed By: <Electronically signed by Harrison Patel MD in OV> 10/02/24 1006 DD/ 1615 TD/TT: 10/01/24 1710 Plate Keeper: [facility] External Provider IMG IR PROCEDURES Edited Result - Final * (ABNORMAL) Urinalysis, Complete, with Reflex to Culture (09/30/2024 4:26 PM EST) Only the most recent of2 resultswithin the time period is included. Color Urine Yellow [facility] Appearance Urine Clear [facility] PH 5.5 5.0 - 9.0 [facility] Glucose Urine UA Negative Negative mg/dL [facility] Urine Blood Negative Negative [facility] Specific Christopher - Urine <=1.005 1.005 - 1.025 [facility] Urine Protein Negative Neg-Trace mg/dL [facility] Urine Ketones Trace Negative mg/dL [facility] Nitrite Urine Negative Negative [facility] Leukocyte Esterase Urine Trace(A) Negative [facility] RBC Urine 0-2 0 - 2 /HPF [facility] Urine WBC 0-5 0 - 5 /HPF [facility] Urine Squamous Epithelial Cell 0-2 0 - 2 /HPF [facility] Urine Bacteria None Seen None Seen [facility] Hyaline Casts, Urine 0-2 0 - 2 /LPF [facility] 09/30/2024 4:26 PM EST 09/30/2024 4:29 PM EST Narrative [facility] - 09/30/2024 4:46 PM EST [id number], Clean Catch Generic External Data Provider LAB URINE ORDERAB LES Final Result [facility] [address] [place] [phone] * Magnesium (09/30/2024 4:26 PM EST) Only the most recent of3 resultswithin the time period is included. Magnesium 1.9 1.6 - 2.6 mg/dL [facility] 09/30/2024 4:26 PM EST 09/30/2024 4:29 PM EST Generic External Data Provider LAB BLOOD ORDERAB LES Final Result Performing Organization Address [facility] Co de Phone Number [facility] [address] [place] [phone] * Hepatic Function Panel (09/30/2024 4:26 PM EST) Only the most recent of3 resultswithin the time period is included. Bilirubin, Total 0.9 0.0 - 1.0 mg/dL [facility] Bilirubin, Direct 0.2 0.0 - 0.5 mg/dL [facility] Aspartate Amino Transferase 25 5 - 37 U/L [facility] Alanine Aminotransferase 12 0 - 40 U/L [facility] Total Protein 7.8 6.5 - 8.0 g/dL [facility] Albumin Level 4.5 3.5 - 5.0 g/dL [facility] Alkaline Phosphatase 94 39 - 117 U/L [facility] 09/30/2024 4:26 PM EST 09/30/2024 4:29 PM EST Generic External Data Provider LAB BLOOD ORDERAB LES Final Result Performing Organization Address [facility] Co de Phone Number [facility] [address] [place] [phone] * (ABNORMAL) Basic Metabolic Panel (09/30/2024 4:26 PM EST) Only the most recent of3 resultswithin the time period is included. Sodium 141 135 - 145 mmol/L [facility] Potassium 3.6 3.3 - 5.1 mmol/L [facility] Chloride 108 96 - 108 mmol/L [facility] Carbon Dioxide 25 22 - 29 mmol/L [facility] Anion Gap 12 12 - 20 [facility] Urea Nitrogen (BUN) 14 9 - 16 mg/dL [facility] Creatinine, Serum 0.93 0.5 - 1.4 mg/dL [facility] Creatinine Clr Calc Pharmacy 85.6 [facility] Comment:eGFR (calculated fro m the MDRD study equation) and eCrCl(calculated from the Cockcroft-Gault equation) are based ondifferent parameters and may not yield comparable results.If eCrCl result is absurd, please check patient'sheight/weight. Estimated Glomerular Filt Rate >60 [facility] Comment:Chronic Kidney Disea se: Estimated GFR < 60 mL/min/1.71w3Ahtzqx Kidney Disease: Estimated GFR < 15 mL/min/1.73m2 Glucose 125(H) 60 - 115 mg/dL [facility] Calcium 9.6 8.4 - 10.2 mg/dL [facility] 09/30/2024 4:26 PM EST 09/30/2024 4:29 PM EST us Generic External Data Provider LAB BLOOD ORDERAB LES Final Result [facility] [address] [place] [address] [phone] * US Retroperitoneal Complete (09/30/2024 1:13 PM EST) Anatomical Region Laterality Modality Ultrasound 09/30/2024 1:13 PM EST Narrative 09/30/2024 1:13 PM EST ? [facility] ?[address] ?[place] [address] ? Ultrasound Report ? Signed ? Patient: Krista,Bobby ?MR#: [id number] ? : 1965 ?Acct:[id number] ? Age/Sex: 59 / M ?ADM Date: 02/03/25 ? Loc: HO.US ? Attending Dr: Malika Mac MD ? Ordering Physician: Malika Mac MD ?? Date of Service: 09/30/24 ?? Procedure(s): US retroperitoneal comp ?? Accession Number(s): [id number] ? cc: Ashley Frankel MD; Malika Mac [...] by Jong Almendarez MD in OV> ? 09/30/243 ? DD/ 12 ? TD/TT: 09/30/241312 ? Plate Keeper: ? Procedure Note Cesar Justice - 09/30/2024 [place] [address] Ultrasound Report Signed Patient: Pierce Velasco#: [id number] : 1965Acct:[id number] Age/Sex: 59 / MADM Date: 09/30/24 Loc: HO.US Attending Dr: Malika Mac MD Ordering Physician: Malika Mac MD Date of Service: 09/30/24 Procedure(s): US retroperitoneal comp Accession Number(s): [id number] cc: Ashley Frankel MD; Malika Mac MD [...] 09/30/24 1313 DD/ 1313 TD/TT: 09/30/24 1313 Plate Keeper: us Malika Mac MD IMG US PROCEDURES Final Result * SARS-CoV-2 RNA, Influenza A/B, and RSV RNA, Ql NAAT (09/09/2024 11:01 AM EST) Influenza A PCR NEGATIVE Negative [facility] Influenza B PCR NEGATIVE Negative [facility] Resp Syncy Virus RNA Qual PCR NEGATIVE Negative [facility] SARS COV2 PCR NEGATIVE Negative [facility] Comment:All test results mus t [...] use by authorized laboratories.Testing performed on the Gema GeneXpert utilizingreal-time RT-PCR.All SARS CoV2 and positive influenza A/B results arereported to [facility]. 09/09/2024 11:0 1 AM EST 09/09/2024 11:06 AM EST us Generic External Data Provider LAB MICROBIOLOGY - GENERAL ORDERABLES Final Result [facility] [address] [place] [address] [phone] * XR Chest 2 Views (09/09/2024 10:34 AM EST) Anatomical Region Laterality Modality Chest Radiographic Hannah ging 09/09/2024 10:3 4 AM EST Narrative 09/09/2024 11:06 AM EST ? [facility] ?[address] ?[place] [address] ?XRay Report ? Signed ? Patient: Krista,Bobby ?MR#: [id number] ? : 1965 ?Acct:[id number] ? Age/Sex: 59 / M ?ADM Date: 09/09/24 ? Loc: HO.ED ? Attending Dr: ? Ordering Physician: Deandra Reynolds DO ?? Date of Service: 09/09/24 ?? Procedure(s): XR chest 2V ?? Accession Number(s): [id number] ? cc: Ashley Frankel MD; Deandra Reynolds [...] Patel MD in OV> ?09/09/24 1103 ? DD/DT: 09/09/ 1034 ? TD/TT: 09/09/24 1045 ? Plate Keeper: ? Procedure Note Reshma Image - 09/09/[address] [address] XRay Report Signed Patient: Pierce Velasco#: [id number] : 1965Acct:[id number] Age/Sex: 59 / MADM Date: 09/09/24 Loc: HO.ED Attending Dr: Ordering Physician: Deandra Reynolds DO Date of Service: 09/09/24 Procedure(s): XR chest 2V Accession Number(s): [id number] cc: Ashley Frankel MD; Deandra Reynolds DO [...] 09/09/24 1103 DD/ 1034 TD/TT: 09/09/24 1045 Plate Keeper: [facility] External Provider IMG XR PROCEDURES Edited Result - Final * Albumin, Random Urine W/Creatinine (08/13/2024 11:26 AM EST) Creatinine, Urine 73.67 mg/dL [facility] Microalbumin Urine 13.0 mg/L [facility] Microalbum Creatinine Ratio Ur 17.6 <30 ug/mg cr [facility] Comment:Albumin/Creatinine R atio Reference Ranges: Normal: < 30 ug/mg creatinine Microalbuminuria: 30 - 300 ug/mg creatinineClinical Albuminuria: > 300 ug/mg creatinine Urine 08/13/2024 11:2 6 AM EST 08/13/2024 1:00 PM EST us Ashley Frankel MD LAB URINE ORDERABLES Final Result Performing Organization Address [facility] Co de Phone Number [facility] [address] [place] [phone] * Testosterone, Total, males (Adult), IA (08/13/2024 11:26 AM EST) Testosterone, Total 317 250 - 1100 ng/dL [facility] Comment:For additional infor mation, please refer tohttp://education.Intronis/faq/MvyhoPswjoglyorceTEZAFSNRE942(This link is being provided for informational/educational purposes only.)This test was developed and its analytical performancecharacteristics have been determined by [employer] [place], [place]. It hasnot been cleared or approved by the U.S. Food and DrugAdministration. This assay has been validated pursuantto the CLIA regulations and is used for clinicalpurposes.THIS TEST WAS PERFORMED AT:[employer]/[facility] [place] [address]RHDCBKPDANIELLE BOLTON MD,PHD 08/13/2024 11:2 6 AM EST 08/13/2024 12:59 PM EST us Generic External Data Provider LAB BLOOD ORDERAB LES Final Result Performing Organization Address [facility]/ZIP Co de Phone Number [facility] [address] [place] [phone] * PSA,Total (08/13/2024 11:26 AM EST) Prostate Specific Antigen 0.69 <0.05 - 4.0 ng/mL [facility] Comment:PSA methodology: Abb sukhwinder Alinity i ChemiluminescentMicroparticle Immunoassay (CMIA) 08/13/2024 11:2 6 AM EST 08/13/2024 12:59 PM EST us Generic External Data Provider LAB BLOOD ORDERAB LES Final Result Performing Organization Address City/[facility]/ZIP Co de Phone Number [facility] [address] [place] [address] [phone] * (ABNORMAL) Hemoglobin A1c (08/13/2024 11:26 AM EST) Hemoglobin A1c 6.2(H) <6.0 % [facility] Comment:Hemoglobin A1C Refer ence Range Adults: 4.8 - 6.0 % Non diabetic: < 6.0 % Goal: < 7.0 %Additional Action Suggested: > 8.0 %Note: Hemoglobin A1c results are invalid for patients with abnormal amounts of HbF. Blood transfusions may impact the HbA1c concentration in the patient sample. Estimated Average Glucose 131 mg/dL [facility] Comment:eAG = Estimated ave rage glucose which is %A1C expressed asaverage glucose, using the formula of the H1A-MkpnsayCtxmfll Glucose study (ADAG), Diabetes Care, Vol.31,#8,Mar. 2007 Blood Venous blood specimen / Unknown 08/13/2024 11:26 AM EST 08/13/2024 12:59 PM EST us Ashley Frankel MD LAB BLOOD ORDERABLES Final Result Performing Organization Address City/[facility]/ZIP Co de Phone Number [facility] [address] [place] [phone] * (ABNORMAL) Lipid Panel, Standard (08/13/2024 11:26 AM EST) Triglycerides 86 <150 mg/dL [facility] Comment:Desirable Triglyceri de: less than 150 mg/dLBorderline High Triglyceride 150-199 mg/dLHigh Triglyceride: 200-499 mg/dLVery High Triglyceride: greater than or equal to 5OO mg/dL Cholesterol 146 <200 mg/dL [facility] Comment:Desirable Cholestero l: less than 200 mg/dLBorderline High Cholesterol: 200-239 mg/dLHigh Cholesterol: greater than 239 mg/dL LDL Cholesterol Calculated 96 <100 mg/dL [facility] Comment:Desirable LDL: less than 100 mg/dLNear Optimal/Above Optimal LDL: 110- 129 mg/dLBorderline High LDL: 130-159 mg/dLHigh LDL: 160-189 mg/dLVery High LDL: greater than or equal to 190 mg/dL HDL Cholesterol 33(L) >40 mg/dL [facility] Comment:Desirable HDL: great er than 40 mg/dL Note: This HDL assay may give artificially low results in patients with liver disease. Blood Venous blood specimen / Unknown 08/13/2024 11:26 AM EST 08/13/2024 12:59 PM EST Ashley Frankel MD LAB BLOOD ORDERABLES Final Result [facility] [address] [place] [phone] * Colonoscopy (04/06/2023) Colonoscopy Normal Normal Moncho Provider HEALTH MAINTENANCE Final Result * Hepatitis C Antibody with Reflex to HCV, RNA, Quantitative, Real-Time PCR (11/11/2022 8:59 AM EDT) Pathologist [facility] Hepatitis C Antibody NON-REACT KELSY NON-REACT KELSY [employer] [place] [facility] Index 0.64 <1.00 [employer] [place] [facility] Comment: HCV antibody was non-reactive. There is no laboratory evidence of HCV infection. In most cases, no further action is required. However, if recent HCV exposure is suspected, a test for HCV RNA (test code 44217) is suggested. For additional information please refer to http://education.Intronis/faq/FEP79e8 (This link is being provided for informational/ educational purposes only.) Blood Venous blood specimen / Unknown 11/11/2022 8:59 AM EDT 11/11/2022 8:59 AM EDT Narrative [facility] - 11/11/2022 9:36 PM EDT FASTING:YES FASTING: YES us Ashley Frankel MD LAB BLOOD ORDERABLES Final Result [facility] [address] [facility], [facility], [place] [address] [facility] [address] [place] [phone] from Last 3 Months or Most Recently Relevant to Health Maintenance [place] [address] - [facility] - [facility] Care Teams Facilities Planner Relationship Specialty Start Date End Date [place], MD Ashley [address] [place] [address] PCP - General Family Medicine 08/28/18 Viktor November [address] [place] [address] Gastroenterology 07/17/24 Kishore Dorsey MD [address] [place] [address] Urology 07/17/24 Raheel Gee [address] [place], [place] [address] Pulmonary Disease 07/17/24 Riya Fulton [address] [facility] [address] [place] [address] Cardiology 07/17/24 Sergio Hackett [address] [place] [address] Orthopaedic Surgery 07/17/24 Dmoinga Silva, Mehrdad [address] [place] [address] Pharmacist Internal Medicine 07/22/24 Norm. Mulugeta Psychiatry 10/10/24
--- OUTSIDE RECORDS SUMMARY | 2024-10-26 14:21 | XMS_ITS | Encounter Summary ---
Author Organization [employer] Address [address] [place] [address] [address] [place] [address] Care Team Providers Care Hydro Pneumatic Tester Name Role Phone Ashley Frankel MD Primary Care Provider [phone] Viktor November Unavailable Kishore Dorsey MD Unavailable Raheel Gee Unavailable [phone] Riya Fulton Unavailable Sergio Hackett Unavailable Unavailable Dominga Silva PharmD Unavailable [phone] Encounter Details Date Type Department Care Team (Latest Contact Info) Description 06/08/2022 Abstract [facility] Dental, Provider, DDS Social History [...] Description 10/28/2024 9:00 AM EST Medication Management [facility] [address] [place], [place] [phone] Dominga Silva, PharmD [address] [place] [address] 12/09/2024 8:00 AM EDT Office Visit [facility] ADULT DENTAL [address] [place] [address] Jackie Peacock 01/23/2025 9:45 AM EDT Office Visit [facility] [address] [place] [address] Ashley Frankel MD [address] [place] [address] documented as of this encounter Visit Diagnoses Not on filedocumented in this encounter Care Teams Hydro Pneumatic Tester Relationship Specialty Start Date End Date Ashley Frankel MD [address] [place] [address] PCP - General Family Medicine 08/28/18 Viktor November [address] [address] Gastroenterology 07/17/24 Kishore Dorsey MD [address] [facility] [address] [place] [address] Urology 07/17/24 Raheel Gee 5 [place], [place] [address] Pulmonary Disease 07/17/24 Riya Fulton [address] [address] Cardiology 07/17/24 Sergio Hackett [address] [place] [address] Orthopaedic Surgery 07/17/24 Dominga Silva, Mehrdad [address] [place] [address] Pharmacist Internal Medicine 07/22/24 De. Dalal Psychiatry 10/10/24 documented as of this encounter
--- OUTSIDE RECORDS SUMMARY | 2024-10-26 14:21 | XMS_ITS | Encounter Summary ---
Author Organization [employer] Address [address] [facility] 7t [place] [address] Care Team Providers Care Pan Reclaim Processor Name Role Phone Ashley Frankel MD Primary Care Provider [phone] Hoang November Unavailable Kishore Dorsey MD Unavailable [phone] Raheel Gee Unavailable [phone] Riya Fulton Unavailable Sergio Hackett Unavailable Unavailable Dominga Silva PharmD Unavailable [phone] Reason for Visit * Reason Comments Med Refill Encounter Details Date Type Department Care Team (Late st Contact Info) Description 07/24/2023 Refill [facility] [address] [place] [address] [facility] [address] [place], [place] [phone] Prostatitis, acute Social History Tobacco Use Types [...] 9:00 AM EST Medication Management [facility] MEDICINE [address] [place] [phone] Dominga Silva, PharmD [address] [place] [address] 12/09/2024 8:00 AM EDT Office Visit [facility] ADULT DENTAL [address] [place] [address] Jackie Peacock 01/23/2025 9:45 AM EDT Office Visit [facility] MEDICINE [address] [place] [address] Ashley Frankel MD [address] [place] [address] documented as of this encounter Visit Diagnoses Diagnosis Prostatitis, acute Acute prostatitis documented in this encounter Care Teams Pan Reclaim Processor Relationship Specialty Start Date End Date Ashley Frankel MD [address] [place] [address] PCP - General Family Medicine 08/28/[address] [place] [address] Gastroenterology 07/17/24 Kishore Dorsey MD [address] [place] [address] Urology 07/17/24 Raheel Gee 5 [place], [place] [address] Pulmonary Disease 07/17/24 Riya Fulton [address]rd [place] [address] Cardiology 07/17/24 Sergio Hackett 300 [facility] [address] [place] [address] Orthopaedic Surgery 07/17/24 Dominga Silva, AnanthD [address] [place] [address] Pharmacist Internal Medicine 07/22/24 Norm. Mulugeta Psychiatry 10/10/24 documented as of this encounter
--- OUTSIDE RECORDS SUMMARY | 2024-10-26 14:21 | XMS_ITS | Encounter Summary ---
Author Organization [employer] Address [address] [facility] 7t [place] [address] Care Team Providers Care Cocoa Room Operator Name Role Phone Ashley Frankel MD Primary Care Provider [phone] Viktor November Unavailable Kishore Dorsey MD Unavailable [phone] Raheel Gee Unavailable [phone] Riya Fulton Unavailable Sergio Hackett Unavailable [...] Description 10/28/2024 9:00 AM EST Medication Management [facility] [address] [place] [address] Dominga Silva PharmD [address] [place] [address] 12/09/2024 8:00 AM EDT Office Visit [facility] ADULT DENTAL [address] [place] [address] Jackie Peacock 01/23/2025 9:45 AM EDT Office Visit [facility] [address] [place] [address] Ashley Frankel MD [address] [place] [address] documented as of this encounter Procedures Procedure Name Priority Date/Time Associated Diagnosis Comments CBC WITH AUTO DIFFERENTIAL Routine 10/10/2024 12:45 AM EST LIPASE Routine 10/10/2024 12:45 AM EST COMPREHENSIVE METABOLIC PANEL Routine 10/10/2024 12:45 AM EST documented in this encounter Results * Lipase (10/10/2024 12:45 AM EST) Lipase 36 8 - 78 U/L [facility] 10/10/2024 12:4 5 AM EST 10/10/2024 12:47 AM EST us Generic External Data Provider LAB BLOOD ORDERAB LES Final Result [facility] [address] [place] [address] [phone] * (ABNORMAL) Comprehensive Metabolic Panel (10/10/2024 12:45 AM EST) Sodium 141 135 - 145 mmol/L [facility] Potassium 3.8 3.3 - 5.1 mmol/L [facility] Chloride 106 96 - 108 mmol/L [facility] Carbon Dioxide 26 22 - 29 mmol/L [facility] Anion Gap 13 12 - 20 [facility] Urea Nitrogen (BUN) 16 9 - 16 mg/dL [facility] Creatinine, Serum 1.02 0.5 - 1.4 mg/dL [facility] Creatinine Clr Calc Pharmacy 72.0 [facility] Comment:eGFR (calculated fro m the MDRD study equation) and eCrCl(calculated from the Cockcroft-Gault equation) are based ondifferent parameters and may not yield comparable results.If eCrCl result is absurd, please check patient'sheight/weight. Estimated Glomerular Filt Rate >60 [facility] Comment:Chronic Kidney Disea se: Estimated GFR < 60 mL/min/1.05b8Xgpufk Kidney Disease: Estimated GFR < 15 mL/min/1.73m2 Glucose 173(H) 60 - 115 mg/dL [facility] Calcium 9.6 8.4 - 10.2 mg/dL [facility] Bilirubin, Total 0.5 0.0 - 1.0 mg/dL [facility] Aspartate Amino Transferase 21 5 - 37 U/L [facility] Alanine Aminotransferase 14 0 - 40 U/L [facility] Total Protein 7.3 6.5 - 8.0 g/dL [facility] Albumin Level 4.1 3.5 - 5.0 g/dL [facility] Alkaline Phosphatase 92 39 - 117 U/L [facility] 10/10/2024 12:4 5 AM EST 10/10/2024 12:47 AM EST us Generic External Data Provider LAB BLOOD ORDERAB LES Final Result [facility] [address] [place], [place] [phone] * (ABNORMAL) CBC auto differential (10/10/2024 12:45 AM EST) White Blood Count 6.5 4.8 - 10.8 X10*3/uL [facility] Red Blood Count 4.40(L) 4.60 - 5.80 X10*6/uL [facility] Hemoglobin 13.6(L) 14.0 - 18.0 g/dl [facility] Hematocrit 38.7(L) 42.0 - 52.0 % [facility] Mean Corpuscular Volume 88.0 80.0 - 98.0 fL [facility] Mean Corpuscular Hemoglobin 30.9 27.0 - 33.0 pg [facility] Mean Corpuscular HGB Conc 35.1 31.0 - 36.0 g/dl [facility] Red Cell Distribution Width 12.7 11.0 - 16.0 % [facility] Platelet Count 275 160 - 400 X10*3/uL [facility] Mean Platelet Volume 10.0 9.4 - 12.4 fL [facility] Neutrophils Percent Auto 60.1 45 - 73 % [facility] Imm Gran Pct Auto 0.2 0.0 - 0.4 % [facility] Lymphocytes Percent Auto 25.9 20 - 40 % [facility] Monocytes Percent Auto 11.3(H) 2 - 11 % [facility] Eosinophils Percent Auto 1.9 0 - 4 % [facility] Basophils Percent Auto 0.6 0 - 2 % [facility] NRBC Pct Auto 0.0 0.0 - 0.2 /100WBC [facility] Neutrophils Absolute Auto 3.9 2.0 - 8.3 x10*3/uL [facility] Imm Gran Abs Auto 0.01 0.00 - 0.03 X10*3/uL [facility] Lymphocytes Absolute Auto 1.7 1.2 - 4.9 X10*3/uL [facility] Monocytes Absolute Auto 0.7 0.1 - 1.2 X10*3/uL [facility] Eosinophils Absolute Auto 0.1 0.0 - 0.4 X10*3/uL [facility] Basophils Absolute Auto 0.0 0.0 - 0.2 X10*3/uL [facility] NRBC Abs Auto 0.000 0.0 - 0.012 X10*3/uL [facility] 10/10/2024 12:4 5 AM EST 10/10/2024 12:47 AM EST us Generic External Data Provider LAB BLOOD ORDERAB LES Final Result [facility] [address] [place] [address] [phone] documented in this encounter Visit Diagnoses Not on filedocumented in this encounter Additional Health Concerns Assessment Noted Time PHQ-9 Depression Total Score: 0 07/17/20 10:33 AM EST documented as of this encounter Care Teams Cocoa Room Operator Relationship Specialty Start Date End Date Ashley Frankel MD [address] [place] [address] PCP - General Family Medicine 08/28/18November [address]rd [place] [address] Gastroenterology 07/17/24 Kishore Dorsey MD [address] [place] [address] Urology 07/17/24 Raheel Gee 5 [place], [place] [address] Pulmonary Disease 07/17/24 Riya Fulton 11 [facility] [address]rd [place] [address] Cardiology 07/17/24 Sergio Hackett [address] [place] [address] Orthopaedic Surgery 07/17/24 Dominga Silva, AnanthD [address] [place] [address] Pharmacist Internal Medicine 07/22/24 De. Dalal Psychiatry 10/10/24 documented as of this encounter
--- OUTSIDE RECORDS SUMMARY | 2024-10-26 14:21 | XMS_ITS | Clinical Summary ---
Author Organization [address] [facility] Address [address] [place] [address] Phone Care Team Providers Care Brush Head Maker Name Role Phone Ashley Frankel MD Primary Care Provider [phone]- [phone] Allergies Active Allergy Reactions Criticality Noted Date [...] AM EST - 10/12/2024 9:39 AM EST [facility] Emergency [address] [place] [address] Smith Quan MD Urinary tract infection with [...] 10:45 AM EDT Consult Orthopedic Surgery - [place] [address] [address] [facility] [address] [place] [address] Raheel Slater DPM [address] [address] Health Maintenance Due Date Last Done Comments [...] PM EST) WBC 7.7 4.8 - 10.8 /F [facility] LAB HEMETOLOGY METHOD 10/12/2024 12:01 AM [facility] RBC 4.60 4.50 - 5.50 M/mcL LAB HEMETOLOGY METHOD 10/12/2024 12:01 AM [facility] Hemoglobin 14.1 13.5 - 17.5 g/dL LAB HEMETOLOGY METHOD 10/12/2024 12:01 AM [facility] LAB Hematocrit 42.7 42.0 - 54.0 % LAB HEMETOLOGY METHOD 10/12/2024 12:01 AM [facility] LAB MCV 92.2 79.0 - 98.0 FL LAB HEMETOLOGY METHOD 10/12/2024 12:01 AM [facility] LAB MCH 30.5 27.0 - 32.0 pcg LAB HEMETOLOGY METHOD 10/12/2024 12:01 AM [facility] LAB MCHC 33.0 32.0 - 37.0 g/dL LAB HEMETOLOGY METHOD 10/12/2024 12:01 AM [facility] LAB RDW 12.8 11.0 - 15.0 % LAB HEMETOLOGY METHOD 10/12/2024 12:01 AM [facility] LAB Platelets 327 130 - 400 K/[facility] LAB HEMETOLOGY METHOD 10/12/2024 12:01 AM [facility] LAB MPV 10.4 7.0 - 11.0 FL LAB HEMETOLOGY METHOD 10/12/2024 12:01 AM [facility] LAB NRBC 0.0 <1.0 % LAB HEMETOLOGY METHOD 10/12/2024 12:01 AM [facility] LAB NRBC Absolute 0.00 <0.10 K/mcL LAB HEMETOLOGY METHOD 10/12/2024 12:01 AM [facility] Neutrophils Relative 66.8 % LAB HEMETOLOGY METHOD 10/12/2024 12:01 AM [facility] Lymphocytes Relative 21.5 % LAB HEMETOLOGY METHOD 10/12/2024 12:01 AM [facility] Monocytes Relative 9.6 % LAB HEMETOLOGY METHOD 10/12/2024 12:01 AM [facility] Eosinophils Relative 1.2 % LAB HEMETOLOGY METHOD 10/12/2024 12:01 AM [facility] Basophils Relative 0.4 % LAB HEMETOLOGY METHOD 10/12/2024 12:01 AM [facility] LAB Immature Granulocytes Relative 0.5 % LAB HEMETOLOGY METHOD 10/12/2024 12:01 AM [facility] LAB Neutrophils Absolute 5.12 1.50 - 7.00 K/mcL LAB HEMETOLOGY METHOD 10/12/2024 12:01 AM [facility] Lymphocytes Absolute 1.65 1.00 - 5.00 K/mcL LAB HEMETOLOGY METHOD 10/12/2024 12:01 AM [facility] Monocytes Absolute 0.74 0.20 - 1.00 K/mcL LAB HEMETOLOGY METHOD 10/12/2024 12:01 AM [facility] Eosinophils Absolute 0.09 0.00 - 0.50 K/mcL LAB HEMETOLOGY METHOD 10/12/2024 12:01 AM [facility] Basophils Absolute 0.03 0.00 - 0.20 K/mcL LAB HEMETOLOGY METHOD 10/12/2024 12:01 AM [facility] LAB Immature Granulocytes Absolute 0.04(H) 0.00 - 0.03 K/mcL LAB HEMETOLOGY METHOD 10/12/2024 12:01 AM [facility] Blood Venous blood specimen / Unknown Venipuncture / Unknown 10/11/2024 11:18 PM EST 10/11/2024 11:44 PM EST us Smith Quan MD LAB BLOOD ORDERABLES Final Result [facility] [address] [place] [address], * (ABNORMAL) Comprehensive metabolic panel (10/11/2024 11:18 PM EST) Sodium 138 133 - 145 mmol/L LAB CHEMISTRY METHOD 10/12/2024 12:38 AM [facility] Potassium 4.3 3.5 - 5.5 mmol/L LAB CHEMISTRY METHOD 10/12/2024 12:38 AM [facility] Chloride 107 96 - 110 mmol/L LAB CHEMISTRY METHOD 10/12/2024 12:38 AM [facility] CO2 30 21 - 32 mmol/L LAB CHEMISTRY METHOD 10/12/2024 12:38 AM [facility] Anion Gap 1(L) 3 - 11 LAB CHEMISTRY METHOD 10/12/2024 12:38 AM [facility] Glucose 126(H) 70 - 100 mg/dL LAB CHEMISTRY METHOD 10/12/2024 12:38 AM [facility] BUN 15 5 - 25 mg/dL LAB CHEMISTRY METHOD 10/12/2024 12:38 AM [facility] Creatinine 1.15 0.70 - 1.30 mg/dL LAB CHEMISTRY METHOD 10/12/2024 12:38 AM [facility] LAB eGFR 73 >=60 mL/min/1. 73m2 LAB CHEMISTRY METHOD 10/12/2024 12:38 AM [facility] Comment:Calculation based on the??Chronic Kidney Disease Epidemiology Collaboration (CKD-EPI) equation refit??without adjustment for race. BUN/Creatinine Ratio 13.0 LAB CHEMISTRY METHOD 10/12/2024 12:38 AM [facility] Calcium 9.8 8.5 - 10.5 mg/dL LAB CHEMISTRY METHOD 10/12/2024 12:38 AM [facility] AST (SGOT) 24 10 - 42 unit/L LAB CHEMISTRY METHOD 10/12/2024 12:38 AM [facility] ALT (SGPT) 22 10 - 60 unit/L LAB CHEMISTRY METHOD 10/12/2024 12:38 AM [facility] Alkaline Phosphatase 100 42 - 121 unit/L LAB CHEMISTRY METHOD 10/12/2024 12:38 AM [facility] Total Protein 6.9 6.0 - 8.0 g/dL LAB CHEMISTRY METHOD 10/12/2024 12:38 AM [facility] Albumin 3.9 3.2 - 5.0 g/dL LAB CHEMISTRY METHOD 10/12/2024 12:38 AM [facility] Total Bilirubin 0.6 0.0 - 1.4 mg/dL LAB CHEMISTRY METHOD 10/12/2024 12:38 AM [facility] Blood Venous blood specimen / Unknown Venipuncture / Unknown 10/11/2024 11:18 PM EST 10/11/2024 11:44 PM EST us Smith Quan MD LAB BLOOD ORDERABLES Final Result [facility] [address] [place] [address], * (ABNORMAL) Urinalysis with reflex microscopic and culture (10/11/2024 10:34 PM EST) Specific [place] Urine 1.014 1.003 - 1.030 LAB URINALYSIS - AUTOMATED METHOD 10/12/2024 6:50 AM [facility] pH, Urine 5.5 5.0 - 8.0 pH LAB URINALYSIS - AUTOMATED METHOD 10/12/2024 6:50 AM [facility] Leukocytes, Urine Moderate(A) Negative LAB URINALYSIS - AUTOMATED METHOD 10/12/2024 6:50 AM [facility] Nitrite, Urine Positive(A) Negative LAB URINALYSIS - AUTOMATED METHOD 10/12/2024 6:50 AM [facility] Protein, Urine 300(A) <=Trace mg/dL LAB URINALYSIS - AUTOMATED METHOD 10/12/2024 6:50 AM [facility] Glucose, Urine Negative Negative mg/dL LAB URINALYSIS - AUTOMATED METHOD 10/12/2024 6:50 AM [facility] Ketones, Urine Negative Negative mg/dL LAB URINALYSIS - AUTOMATED METHOD 10/12/2024 6:50 AM [facility] Urobilinogen, Urine 1.0 0.2 - 1.0 mg/dL LAB URINALYSIS - AUTOMATED METHOD 10/12/2024 6:50 AM [facility] Bilirubin, Urine Small(A) Negative LAB URINALYSIS - AUTOMATED METHOD 10/12/2024 6:50 AM [facility] Blood, Urine Large(A) Negative LAB URINALYSIS - AUTOMATED METHOD 10/12/2024 6:50 AM [facility] RBC, Urine 1,724.4(H) 0 - 4 /HPF LAB URINALYSIS - AUTOMATED METHOD 10/12/2024 6:50 AM [facility] Comment:This is an appended report. These results have been appended to a previously preliminary verified report. WBC, Urine 48.9(H) 0 - 4 /HPF LAB URINALYSIS - AUTOMATED METHOD 10/12/2024 6:50 AM [facility] Comment:This is an appended report. These results have been appended to a previously preliminary verified report. Squamous Epithelial, Urine >100(H) 0 - 60 /LPF LAB URINALYSIS - AUTOMATED METHOD 10/12/2024 6:50 AM [facility] Comment:This is an appended report. These results have been appended to a previously preliminary verified report. Crystals, Urine LT CALCIUM OXALATE /LPF LAB URINALYSIS - AUTOMATED METHOD 10/12/2024 6:50 AM EST [facility] Comment:Corrected result: Pr eviously reported on 10/11/2024 at 2351 EST. Bacteria, Urine Negative Negative /HPF LAB URINALYSIS - AUTOMATED METHOD 10/12/2024 6:50 AM [facility] Comment: Edited result: Previously reported as Negative /HPF on 10/11/2024 at 2351 EST. This is an appended report. ??These results have been appended to a previously final verified report. Hyaline Casts, Urine 13.6(H) 0 - 3 /LPF LAB URINALYSIS - AUTOMATED METHOD 10/12/2024 6:50 AM EST [facility] Comment:This is an appended report. These results have been appended to a previously preliminary verified report. Urine Urine specimen obtained by clean catch procedure / Unknown Non-blood Collection / Unknown 10/11/2024 10:34 PM EST 10/11/2024 11:07 PM EST Smith Quan MD LAB URINE ORDERABLES Edited Result - Final Performing Organization Address [facility]/ZIP Co de Phone Number [facility] [address] [place] [address], [place] [phone] * Carlin urine culture tube (10/11/2024 10:34 PM EST) Extra Tube Hold for add-ons. 10/12/2024 1:11 AM EST [facility] Comment:Auto resulted. Urine Urine specimen obtained by clean catch procedure / Unknown Non-blood Collection / Unknown 10/11/2024 10:34 PM EST 10/11/2024 11:07 PM EST Smith Quan MD LAB URINE ORDERABLES Final Result Performing Organization Address [facility]/ZIP Co de Phone Number [facility] [address] [place] [address], [place] [phone] * Culture urine (10/11/2024 10:34 PM EST) Culture, Urine No growth 10/13/2024 10:54 AM EST [facility] Urine Urine specimen obtained by clean catch procedure / Unknown Non-blood Collection / Unknown 10/11/2024 10:34 PM EST 10/11/2024 11:52 PM EST us Smith Quan MD LAB MICROBIOLOGY - GENERAL ORDERABLES Final Result [facility] ([facility] [address] [place] [address], [place] [phone] from Last 3 Months Insurance , [address] [address] [facility] MEDICARE Member Subscriber Plan / Payer (Ef fective 2023-Present) Name:[place] Velasco Relation to Subscriber:Self Name:Bobby Velasco Payer ID:[id number] Group ID:[id number] Type:Not on file Address: [place] [address] [address] [address] Care Teams Brush Head Maker Relationship Specialty Start Date End Date Marlys, MD Ashley [address] [place] [address] PCP - General Family Medicine 08/09/24
--- OUTSIDE RECORDS SUMMARY | 2024-10-26 14:21 | XMS_ITS | Encounter Summary ---
Author Organization [employer] Address [address] [place] [address] [address] [place] [address] Care Team Providers Care Pipe Fitter Supervisor Maintenance Name Role Phone Ashley Frankel MD Primary Care Provider [phone]- [phone] Viktor November Unavailable Kishore Dorsey MD Unavailable Raheel Gee Unavailable [phone] Riya Fulton Unavailable Sergio Hackett Unavailable Unavailable Dominga Silva PharmD Unavailable Encounter Details Date Type Department Care Team (Latest Contact Info) Description 07/04/2019 Abstract [facility] CONVERSIONS Dental, Provider, DDS Social History Tobacco [...] Description 10/28/2024 9:00 AM EST Medication Management [facility] MEDICINE [address] [place], [place] [phone] Dominga Silva, PharmD [address] [place] [address] 12/09/2024 8:00 AM EDT Office Visit [facility] ADULT DENTAL [address] [place] [address] Jackie Peacock 01/23/2025 9:45 AM EDT Office Visit [facility] MEDICINE [address] [place] [address] Ashley Frankel MD [address] [place] [address] documented as of this encounter Visit Diagnoses Not on filedocumented in this encounter Care Teams Pipe Fitter Supervisor Maintenance Relationship Specialty Start Date End Date Ashley Frankel MD [address] [place] [address] PCP - General Family Medicine 08/28/18 Viktor November [address] [address] Gastroenterology 07/17/24 Kishore Dorsey MD [address] [facility] [address] [place] [address] Urology 07/17/24 Raheel Gee [address] [place], [place] [address] Pulmonary Disease 07/17/24 Riya Fulton [address] [address] Cardiology 07/17/24 Sergio Hackett [address] [place] [address] Orthopaedic Surgery 07/17/24 Dominga Silva, Mehrdad [address] [place] [address] Pharmacist Internal Medicine 07/22/24 De. Dalal Psychiatry 10/10/24 documented as of this encounter
--- OUTSIDE RECORDS SUMMARY | 2024-10-26 14:21 | XMS_ITS | Encounter Summary ---
Author Organization [employer] Address [address] [facility] 7t [place] [address] Care Team Providers Care Key Attendant Name Role Phone Ashley Frankel MD Primary Care Provider [phone]- [phone] Viktor November Unavailable Kishore Dorsey MD Unavailable Raheel Gee Unavailable [phone] Riya Fulton Unavailable Sergio Hackett Unavailable Unavailable Dominga Silva PharmD Unavailable Reason for Visit * Reason Comments Difficulty Urinating Encounter Details Date Type Department Care Team (Late st Contact Info) Description 10/10/2024 1:40 PM EST Office Visit [facility] [address] [place] [phone] Ashley Frankel MD [address] [place], [place] [phone] Dysuria (Primary Dx); Dyslipidemia; Gastroesophageal reflux disease, [...] right ureteroscopy laser lithotripsy stent insertion, 6 Thai by [address] Mayda Rodriguez. [...] right ureteroscopy laser lithotripsy stent insertion, 6 [place] by [address] Mayda Rodriguez. [...] right ureteroscopy laser lithotripsy stent insertion, 6 Thai by [address] Mayda Rodriguez. [...] 9:00 AM EST Medication Management [facility] [address] [place] [address] Dominga Silva PharmD [address] [place] [address] 12/09/2024 8:00 AM EDT Office Visit [facility] ADULT DENTAL [address] [place] [address] Jackie Peacock 01/23/2025 9:45 AM EDT Office Visit [facility] [address] [place] [address] Ashley Frankel MD [address] [place] [address] documented as of this encounter Visit Diagnoses Diagnosis Dysuria- Primary Dyslipidemia Other and unspecified hyperlipidemia Gastroesophageal reflux disease, unspecified whether esophagitis present Benign prostatic hyperplasia with urinary obstruction Anxiety Anxiety state, unspecified documented in this encounter Additional Health Concerns Assessment Noted Time PHQ-9 Depression Total Score: 0 07/17/20 10:33 AM EST documented as of this encounter Care Teams Key Attendant Relationship Specialty Start Date End Date Ashley Frankel MD [address] [place] [address] PCP - General Family Medicine 08/28/18 Sonya Hoang [address] 3rd [place] [address] Gastroenterology 07/17/24 Kishore Dorsey MD [address] [place] [address] Urology 07/17/24 Raheel Gee 5 [place], [place] 10[address] Pulmonary Disease 07/17/24 Riya Fulton 11 [facility] 3rd [place] [address] Cardiology 07/17/24 Sergio Hackett [address] [place] [address] Orthopaedic Surgery 07/17/24 Dominga Silva PharmD [address] [place] [address] Pharmacist Internal Medicine 07/22/24 De. Dalal Psychiatry 10/10/24 documented as of this encounter
--- OUTSIDE RECORDS SUMMARY | 2024-10-26 14:22 | XMS_ITS | Encounter Summary ---
Author Organization [employer] Address 75 [facility] 7t [place] [address] Care Team Providers Care Marble Rubber Name Role Phone Ashley Frankel MD Primary Care Provider [phone] Viktor November Unavailable Kishore Dorsey MD Unavailable [phone] Raheel Gee Unavailable [phone] Riya Fulton Unavailable Sergio Hackett Unavailable [...] 10/28/2024 9:00 AM EST Medication Management [facility] MEDICINE [address] [place] [address] Dominga Silva PharmD [address] [place] [address] 12/09/2024 8:00 AM EDT Office Visit [facility] ADULT DENTAL [address] [place] [address] Jackie Peacock 01/23/2025 9:45 AM EDT Office Visit [facility] MEDICINE [address] [place] [address] Ashley Frankel MD [address] [place] [address] documented as of this encounter Visit Diagnoses Not on filedocumented in this encounter Additional Health Concerns Assessment Noted Time PHQ-9 Depression Total Score: 0 07/17/20 24 10:33 AM EST documented as of this encounter Care Teams Marble Rubber Relationship Specialty Start Date End Date Ashley Frankel MD [address] [place] [address] PCP - General Family Medicine 08/28/18 Sonya Hoang [address] 3rd [place] [address] Gastroenterology 07/17/24 Kishore Dorsey MD [address] [place] [address] Urology 07/17/24 Raheel Gee 5 [place], [place] 10[address] Pulmonary Disease 07/17/24 Riya Fulton [address] 3rd [place] [address] Cardiology 07/17/24 Sergio Hackett 300 [facility] [address]nd [place] [address] Orthopaedic Surgery 07/17/24 Dominga Silva, AnanthD [address] [place] [address] Pharmacist Internal Medicine 07/22/24 De. [place] Psychiatry 10/10/24 documented as of this encounter
--- OUTSIDE RECORDS SUMMARY | 2024-10-26 14:22 | XMS_ITS | Data Portability ---
Author Organization [place] [facility], Allergy Address [address] [place] [phone] Care Team Providers Care Branch Chief Name Role Phone NAME, LINDSAY Primary Care [...] follow-up after for review and further planning. Not available 09/16/2024 13:47:52 Plan of Treatment [...] CT, maxillofaci al, w/o contrast 2024 025 [email or web address] [facility] [place], [facility], [facility], [place], [address], 5 15:43:34 Medication Orders None recorded. Patient TargetsNo targets recorded. Patient InstructionsNo instructions recorded. Reason for Referral None Reported. Problems Name Problem SNOMED Code Status Onset Date Resolution Date Notes Provider Name and Address Organization Details Recorded Time Allergic rhinitis 48444364 Active 2018 Perennial allergic rhinitis; Note: Date Diagnosed : 11/26/2018 12:00 PM (J30.89) Not Available [facility] 4 02:51:24 Deviated nasal septum 580987776 Active 2017 Deviated nasal septum; Note: Date Diagnosed : 05/09/2018 11:11 AM (J34.2) Not Available [facility] 4 02:51:18 Tinnitus of right ear 47633316474 08 Active 2017 Tinnitus, right ear; Note: Date Diagnosed : 01/16/2018 3:42 PM (H93.11) Not Available [facility] 4 02:51:19 Sensorine ural hearing loss of bilateral ears 761237344 Active 2017 Sensorine ural hearing loss, bilateral ; Note: Date Diagnosed : 01/16/2018 3:42 PM (H90.3) Not Available [facility] 4 02:51:21 Nasal congestio n 97651550 Active 2017 Nasal congestio n; Note: Date Diagnosed : 05/09/2018 11:11 AM (R09.81) Not Available [facility] 4 02:51:19 Dizziness and giddiness 820391770 Active 2017 Dizziness and giddiness ; Note: Date Diagnosed : 01/16/2018 3:42 PM (R42) Not Available [facility] 4 02:51:20 Headache 98231772 Active 2017 Headache; Note: Date Diagnosed : 05/09/2018 11:06 AM (R51) Not Available [facility] 4 02:51:20 Impacted cerumen of bilateral ears 31507309558 870[address] Active 2024 MAXWELL DALY PA-C [address] [place],[facility], [facility] [place], [address] , [facility] 5 13:48:02 Seasonal allergic rhinitis 344116876 Active 2024 MAXWELL DALY PA-C [address] [facility] [place] [address], [place], [address] , [facility] 13:48:08 Non-aller gic rhinitis 97974864310 1 Active 2024 MAXWELL DALY PA-C [address] [facility] [place],[facility], [facility] [place], [address] , [facility] 13:48:08 Problem Notes None recorded. Procedures Surgical History Date Name Laterality Status Provider Name and Address Organization Details Recorded Time Cerumen removal without microscope bilat completed MAXWELL DALY PA-C [address] [facility] [place] [address], [place], [address], [facility] 09/16/2024 13:46:50 Imaging Results None recorded. Procedure Notes None recorded. Medical Equipment None Reported. Allergies Allergen ID Allergen Name Allergen Category Reaction Reaction Severity Criticality Documentation Date Start Date Code Code System Note Provider Name and Address Organization Details Recorded Time 040704 amoxicill in medicatio n other Not available Not available 01/09/2024 723 RxNorm React ion: unkno wn, unspe cifie d;; Not Available [facility] 4 01:20:48 729389 Product containin g penicilli n (product) medicatio n other Not available Not available 01/09/2024 28236 8001 SNOMED React ion: unkno wn, unspe cifie d;; Not Available [facility] 4 01:20:48 Medications Name Sig Start Date [...] mg tablet 01/16 completed Medicati on ID: [id number] D uration Value: 30 Reason: () Brand [...] mg tablet 09/16 completed Medicati on ID: [id number] D uration Value: 30 Brand Name: amlodipi [...] mg tablet 10/12 completed Medicati on ID: [id number] D uration Value: 30 Brand Name: carvedil [...] mg capsule 01/16 completed Medicati on ID: [id number] D uration Value: 30 Reason: () Brand [...] mg tablet 10/12 completed Medicati on ID: [id number] D uration Value: 10 Brand Name: Viagra [...] mg tablet 10/12 completed Medicati on ID: [id number] D uration Value: 5 Brand Name: levoflox [...] 24 hr 05/09 completed Medicati on ID: [id number] D uration Value: 30 Reason: () Brand [...] Lite Strips 01/16 completed Medicati on ID: [id number] D uration Value: 17 Reason: () Brand [...] Updated DateTime 09/16/2024 170.18 cm 27.9 kg/m2 04336.44 g Gail Hurt [place] - [facility] 09/16/2024 13:25:10 Social History None recorded. Functional Status None recorded. Mental Status None recorded. Family History Nothing Reported. Medical History No medical history recorded. Past Encounters Encounter ID Performer Location Encounter Start Date Encounter Closed Date Diagnosis/Indication Diagnosis SNOMED-CT Code Diagnosis ICD10 Code Diagnosis Note [id number] MAXWELL DALY PA-C [facility] [address] [address] 09/16/2024 13:13:53 09/16/2024 13:45:47 Nasal congestion 32899618 R09.81 Allergic rhinitis 817972 04 J30.89 Impacted c erumen of bilateral ears 5481383287 982426 H61.23 Health Concerns Section Related Observation LastModified by Organization Detai ls LastModified Time None Recorded Concern Status LastModified by Organization Details LastModified Time None Recorded Advance Directives Directive None Recorded Payers Encounter Date Sequence Insurance Name Policy Number Policy Ortiz Covered Member ID Ortiz Member ID Guarantor Name 09/16/2024 1 [facility] - DOS ON OR AFTER 2022 - MEDICARE ADVANTAGE [place] (MEDICARE REPLACEMENT/ADV ANTAGE - PPO) [place] [id number] [place] Notes Date Note Type Note [...] in his ears bilaterally. MAXWELL DALY PA-C [address] [place] [address], [place], [address], [facility] 09/16/2024 13:49:51
--- OUTSIDE RECORDS SUMMARY | 2024-10-26 14:22 | XMS_ITS | Encounter Summary ---
Author Organization [employer] Address [address] [place] [address] [address] [address] Care Team Providers Care Pulp Press Tender Name Role Phone Ashley Frankel MD Primary Care Provider [phone] Viktor November Unavailable Kishore Dorsey MD Unavailable Raheel Gee Unavailable [phone] Riya Fulton Unavailable Sergio Hackett Unavailable Unavailable Dominga Silva PharmD Unavailable Reason for Referral * Consultation (Routine) - Authorized Specialty Diagnoses / Procedures Referred By Jeromy worrell Referred To Contact Pharmacy Diagnoses Primary hypertension Ashley Frankel MD [address] [place] [address] Phone: tel: fax: Referral ID Status Reason Start Date Expiration Date Visits Requested Visits Authorized [id number] Authorized Continuity of Care 10/24/2024 10/24/2025 6 6 * Consultation (Routine) - Authorized Specialty Diagnoses / Procedures Referred By Jeromy worrell Referred To Contact Pharmacy Diagnoses Primary hypertension Ashley Frankel MD [address] [place] [address] Phone: tel: fax: Referral ID Status Reason Start Date Expiration Date Visits Requested Visits Authorized [id number] Authorized Consult and Treat 10/24/2024 10/24/2025 6 6 Reason for Visit * Reason Comments follow up bp Encounter Details Date Type Department Care Team (Latest Contact Info) Description 10/24/2024 9:15 AM EST Office Visit [facility] [address] [place] [address] Ashley Frankel MD [address] [place] [address] Primary hypertension (Primary Dx); Weight loss, non-intentional; [...] Description 10/28/2024 9:00 AM EST Medication Management [facility] [address] [place] [address] Dominga Sivla, PharmD [address] [place] [address] 12/09/2024 8:00 AM EDT Office Visit [facility] [address] [place] [address] Jackie Peacock 01/23/2025 9:45 AM EDT Office Visit [facility] [address] [place] [address] Ashley Frankel MD [address] [place] [address] Scheduled Referrals Name Type Priority Associated Diagnoses [...] AM EST) HIV AB/AG Nonreactive Nonreactive [facility] Comment:HIV-1 p24 Ag and/or HIV-1/HIV-2 Ab not detected.A test result that is nonreactive does not exclude thepossibility of exposure to or infection with HIV-1 and/orHIV-2. Nonreactive results in this assay for individualswith prior exposure to HIV-1 and/or HIV-2 may be due toantigen and antibody levels that are below the limit ofdetection of this assay.The [employer] HIV Ag/Ab Combo assay result andsupplemental assay results should be interpreted inconjunction with the patient's clinical presentation,history and other laboratory results. If the results areinconsistent with clinical evidence, additional testing issuggested to confirm the result. Blood Venous blood specimen / Unknown 10/24/2024 9:22 AM EST 10/24/2024 11:48 AM EST us Ashley Frankel MD LAB BLOOD ORDERABLES Final Result [facility] [address] [place] [phone] * TSH W/Reflex to FT4 (10/24/2024 9:22 AM EST) TSH reflex Free T4 1.31 0.32 - 4.0 uIU/mL [facility] Blood Venous blood specimen / Unknown 10/24/2024 9:22 AM EST 10/24/2024 11:48 AM EST Ashley Frankel MD LAB BLOOD ORDERABLES Final Result Performing Organization Address City/[facility]/ZIP Co de Phone Number [facility] [address] [place] [phone] * Vitamin D, 25-Hydroxy, Total, Immunoassay (10/24/2024 9:22 AM EST) Vitamin D 25-OH Total 39.3 >30 ng/mL [facility] Comment:Health Based Referen ce Values*< 20 ng/mL Icofmhhcp56-11 ng/mL Insufficient> 30 ng/mL Sufficient*Colleen GILL. N [...] Final Result Performing Organization Address [facility] Co de Phone Number [facility] [address] [place] [phone] * Lactate Dehydrogenase (LD) (10/24/2024 9:22 AM EST) Lactate Dehydrogenase 248 118 - 273 U/L [facility] Blood Venous blood specimen / Unknown 10/24/2024 9:22 AM EST 10/24/2024 11:48 AM EST Ashley Frankel MD LAB BLOOD ORDERABLES Final Result [facility] [address] [place] [address] [phone] documented in this encounter Visit Diagnoses Diagnosis Primary hypertension- Primary Unspecified essential hypertension Weight loss, non-intentional Loss of weight 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 ([facility]) Overweight Dietary counseling Dietary surveillance and counseling Exercise counseling Dyslipidemia Other and unspecified hyperlipidemia Type 2 diabetes mellitus without complication, without long-term current use of insulin ([facility]/H[facility]) Pulmonary nodules Other diseases of lung, not elsewhere classified documented in this encounter Additional Health Concerns Assessment Noted Time PHQ-9 Depression Total Score: 0 07/17/20 10:33 AM EST documented as of this encounter Care Teams Pulp Press Tender Relationship Specialty Start Date End Date Ashley Frankel MD [address] [place] [address] PCP - General Family Medicine 08/28/18November [address] [place] [address] Gastroenterology 07/17/24 Kishore Dorsey MD [address] [place] [address] Urology 07/17/24 Raheel Gee [address] [place], [place] [address] Pulmonary Disease 07/17/24 Riya Fulton [address] [place] [address] Cardiology 07/17/24 Sergio Hackett [facility] [address]nd [place] [address] Orthopaedic Surgery 07/17/24 Dominga Silva, Mehrdad [address] [place] [address] Pharmacist Internal Medicine 07/22/24 De[facility] 10/10/24 documented as of this encounter
--- OUTSIDE RECORDS SUMMARY | 2024-10-26 14:22 | XMS_ITS | Encounter Summary ---
Author Organization [employer] Address [address] [place] [address] 7t [place] [address] Care Team Providers Care Educational Therapy Teacher Name Role Phone Ashley Frankel MD Primary Care Provider [phone] Viktor November Unavailable Kishore Dorsey MD Unavailable [phone] Raheel Gee Unavailable [phone] Riya Fulton Unavailable Sergio Hackett Unavailable Unavailable Dominga Silva PharmD Unavailable [phone] Reason for Visit * Reason Onset Date Comments Nurse Triage 09/27/2024 Encounter Details Date Type Department Care Team (Late st Contact Info) Description 09/27/2024 Telephone [facility] [address] [place] [address] Ashley Frnakel MD [address] [place], [place] [phone] Nurse Triage Social History Tobacco Use Types [...] the past 12 months, has t he [employer] gas, oil or water [employer] threatened to shut off services in [...] Pt advised of disposition, agrees to seek [facility] for exam as no sick on site availability on [facility] at time of call. Reviewed [facility] hours for today and tomorrow. Reviewed [facility] operating hours and that wait times [...] 30: sudden AND severe upper back pain [phone] documented in this encounter Plan of Treatment Upcoming Encounters Date Type Department Care Team (Late st Contact Info) Description 10/28/2024 9:00 AM EST Medication Management [facility] [address] [place] [address] Dominga Silva PharmD [address] [place] [address] 12/09/2024 8:00 AM EDT Office Visit [facility] [address] [place] [address] Jackie Peacock 01/23/2025 9:45 AM EDT Office Visit [facility] [address] [place] [address] Ashley Frankel MD [address] [place] [address] documented as of this encounter Visit Diagnoses Not on filedocumented in this encounter Additional Health Concerns Assessment Noted Time PHQ-9 Depression Total Score: 0 07/17/20 24 10:33 AM EST documented as of this encounter Care Teams Educational Therapy Teacher Relationship Specialty Start Date End Date Ashley Frankel MD [address] [place] [address] PCP - General Family Medicine 08/28/18 [address]ang [address] 3rd [place] [address] Gastroenterology 07/17/24 Kishore Dorsey MD [address] [place] [address] Urology 07/17/24 Raheel Gee 5 [place], [place] 10[address] Pulmonary Disease 07/17/24 Riya Fulton [address] 3rd [place] [address] Cardiology 07/17/24 Sergio Hackett [address] [facility] 2nd [place] [address] Orthopaedic Surgery 07/17/24 Dominga Silva, AnanthD [address] [place] [address] Pharmacist Internal Medicine 07/22/24 documented as of this encounter
--- OUTSIDE RECORDS SUMMARY | 2024-10-26 14:22 | XMS_ITS | Data Portability ---
Author Organization [facility], [facility] Address [address] [place] [address] Assessment No assessment recorded. Plan of Treatment Reminders Order Date Submit Date Provider Last Modified By Organization Details Last Modified Time Details Appointments None recorded. Lab [id number], blood - Ankylosis Spondylit is Labs 2023 024 BROOKLYNN [facility] (Centralized Electronic Ordering - All Locations), Patient Can Go To The Location Of Their Choice, [address] 21:34:03 [id number]-B27, blood - Ankylosis Spondylit is Labs 2023 024 [email or web address] [facility] (Centralized Electronic Ordering - All Locations), Patient Can Go To The Location Of Their Choice, [address] 13:00:12 Referral physical therapist referral - Evaluate & RxCervica l Stabiliza tion Program, DISH with significa ntly decreased ROM and neck/shou lder pain 2023 [facility], [address], [place], [address], 07:26:05 pain managemen t referral - neck pain, cervical DISH, MRI completed 2023 024 [email or web address] [facility], [address] [place] [address], [address], 14:04:48 physical therapist referral - Evaluate & RxCervica l Stabiliza tion Program. Please include thoracic stabiliza tion program as well 2023 024 BROOKLYNN Not available 09:53:28 Procedures None recorded. Surgeries None recorded. Imaging MRI, cervical spine, w/o contrast - neck pain with DISH, arm pain 2023 024 [email or web address] [facility] ([facility]), [address], [place], [address], 4 07:42:04 XR, cervical spine, 4 or 5 view - 325 new pt c-spine series, please include t-spine 2v 2023 024 [email or web address] [facility], [address], [place], [address], 4 13:00:12 XR, thoracic spine, 2 view - 325 new pt c-spine series, please include t-spine 2v 2023 024 [email or web address] [facility], [address], [place], [address], 4 13:00:12 Medication Orders meloxicam [id number], [address] [place], [address], 4 16:06:47 Patient TargetsNo targets recorded. Patient InstructionsNo instructions recorded. 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 Seque nce Based Typin g (SBT) may be used as a suppl ement al metho d when neces libia. If you have quest ions, pleas e call HLA custo amos servi ce at [phone] or email at [email or web address]. Not Available [facility] ([facility]) [address] [facility], [place], [address], 03/22/2024 21:34:03 03/18/20 24 03/15/2024 MRI, cervi deisy spine , w/o contr ast [facility] Access ion Number : [id number] Name: Bobby Velasco Record Number : [id number] Date of : 1964 Date of Exam: 2023 Referr ing Physic raul: Rebecca avendaño, Alessandra rosales [facility] [address] [facility], [place] [address] Exam: MR Cervic al Spine (C-) CPT 81746 Room Descri ption: [facility] Pion 3T MRI of the cervic al [...] onical ly Signed By: Nicanor Tatum MD [address] [facility] ([facility]) [address], [place], [address], 03/18/2024 08:45:12 Result Notes None recorded. Problems Name Problem SNOMED Code Status Onset Date Resolution Date Notes Provider Name and Address Organization Details Recorded Time Diffuse idiopathic skeletal hyperostosi s of cervicothor acic spine 5632703496553 00 Active 2023 Sergio Hackett MD [address] [facility] [address], [place], [address] , [place] [facility] 4 10:48:45 Ankylosis of spine 69151392 Active 2023 Sergio Hackett MD [address], [place], [address] , [facility] 4 10:48:46 Problem Notes None recorded. Procedures Surgical History None recorded. Imaging Results Imaging Date Name Status LastModified by Organiz ation Details LastModified Time 03/15/2024 MRI, cervical spine, w/o contrast completed [address] [facility] ([facility]) [address], [place], [address], 03/18/2024 08:45:12 Procedure Notes None recorded. Medical Equipment None Reported. Allergies Allergen ID Allergen Name Allergen Category Reaction Reaction Severity Criticality Documentation Date Start Date Code Code System Note Provider Name and Address Organization Details Recorded Time 868431 clindamyc in Not available Not available Not available Not available 12/19/2023 2582 RxNorm SANDEEP GUERRERO [facility] 4 13:54:21 236858 doxycycli ne Not available Not available Not available Not available 12/19/2023 3640 RxNorm SANDEEP GUERRERO [facility] 4 13:54:26 908864 Product containin g penicilli n (product) medicatio n Not available Not available Not available 12/19/2023 47658 8001 SNOMED SANDEEP GUERRERO [facility] 4 13:54:31 Medications Name Sig Start Date [...] Updated DateTime 12/20/2023 170.18 cm 29.8 kg/m2 32484.55 g SANDEEP GUERRERO [facility] 12/20/2023 10:13:56 Date Recorded Body height Body mass index (BMI) Body weight Provider Name and Address Organization Details Last Updated DateTime 03/14/2024 170.18 cm 29.8 kg/m2 88576.55 g Raji Hdz [facility] 03/14/2024 10:07:08 Social History None recorded. Functional Status None recorded. Mental Status None recorded. Family History Nothing Reported. Medical History Condition Response Allergies/Hayfever N Coronary Artery Disease N Anxiety/Depression N Emphysema N Thyroid Problems N COPD N Pacemaker N Anemia N Kidney/Bladder Problems N Vascular Disease N Heart Attack (ID) N Gastrointestinal Disease Y Diabetes Y Autoimmune [...] SNOMED-CT Code Diagnosis ICD10 Code Diagnosis Note [id number] MD [address] [place] [address] [place] [address] 12/20/2023 09:32:46 01/09/2024 12:19:40 Neck pain 92547547 M54.2 Diffuse id iopathic skeletal hyperostosis of cervicothoracic spine 2172494796 41271 M48.13 58-year-ol d male with cervical, thoracic [...] will follow-up afterwards . Ankylosis of spine [address]63[address] 007 M43.20 [id number] Alessandra Lopez CNP [place] [address] [place] [address] 03/14/2024 09:47:09 03/29/2024 07:42:04 Neck pain 45910431 M54.2 Diffuse id iopathic skeletal hyperostosis of cervicothoracic spine 8434103204 21605 M48.13 [id number] Alessandra Lopez CNP [place] [address] [place] [address] 03/29/2024 15:34:17 03/29/2024 16:06:58 Neck pain 91879941 M54.2 Diffuse id iopathic skeletal hyperostosis of cervicothoracic spine 7557876974 45497 M48.13 Health Concerns Section Related Observation LastModified by Organization Detai ls LastModified Time None Recorded Concern Status LastModified by Organization Details LastModified Time None Recorded Advance Directives Directive None Recorded Payers Encounter Date Sequence Insurance Name Policy Number Policy Ortiz Covered Member ID Ortiz Member ID Guarantor Name 12/20/[address] [facility] - DOS ON OR AFTER 2022 - ONE CARE (MEDICARE REPLACEMENT/ADV ANTAGE - HMO) Bobby Velasco [id number] Bobby Velasco 03/14/[address] [facility] - DOS ON OR AFTER 2022 - ONE CARE (MEDICARE REPLACEMENT/ADV ANTAGE - HMO) Bobby Velasco [id number] Bobby Velasco 03/29/[address] [facility] - DOS ON OR AFTER 2022 - ONE CARE (MEDICARE REPLACEMENT/ADV ANTAGE - HMO) Bobby Velasco [id number] Bobby Velasco Notes Date Note Type Note [...] therapy in the past. Sergio Hackett MD [address] [place] [address], [address], [facility] 12/20/2023 10:49:09 03/14/2024 text/html I am [...] relief FOLLOW UP: MRI review Speech recognition administrative officer software was used to create portions of this document. An attempt at proofreading has been made to minimize errors. Please call for corrections. Alessandra Lopez, SOLAR PROJECT MANAGER [address] [facility] [address], [place], [address], [facility] 03/14/2024 16:53:17 03/29/2024 text/html [...] discussed with the patient today.1. referral to [facility] for evaluation for injection therapy. copy of referral mailed2. HLA negative, no ankylosing spondylitis3. continue physical therapy4. OTC NSAIDs and tylenol not helping much. I prescribed meloxicam. medication education provided. We also discussed muscle relaxers, but patient opted to hold off for now.5. recommend topicals for pain relief FOLLOW UP: prn Speech recognition administrative officer software was used to create portions of this document. An attempt at proofreading has been made to minimize errors. Please call for corrections. time spent: > 20 minutes including independent review of MRI and telephone consultation Alessandra Lopez, SOLAR PROJECT MANAGER [address], [place], [address], [facility] 03/31/2024 18:31:56
--- OUTSIDE RECORDS SUMMARY | 2024-10-26 14:22 | XMS_ITS | Encounter Summary ---
Author Organization [employer] Address [address] [facility] 7t [place] [address] Care Team Providers Care Banjo Repair Person Name Role Phone Ashley Frankel MD Primary Care Provider [phone] Viktor November Unavailable Kishore Dorsey MD Unavailable [phone] Raheel Gee Unavailable [phone] Riya Fulton Unavailable Sergio Hackett Unavailable Unavailable Dominga Silva PharmD Unavailable Encounter Details Date Type Department Care Team (Late st Contact Info) Description 10/17/2024 Telephone [facility] [address] [place], [place] [phone] Ashley Frankel MD [address] [place], [place] [phone] Social History Tobacco Use Types Packs/Day Years [...] Description 10/28/2024 9:00 AM EST Medication Management [facility] [address] [place] [address] Dominga Silva, PharmD [address] [place] [address] 12/09/2024 8:00 AM EDT Office Visit [facility] [address] [place] [address] Jackie Peacock 01/23/2025 9:45 AM EDT Office Visit [facility] [address] [place] [address] Ashley Frankel MD [address] [place] [address] documented as of this encounter Visit Diagnoses Not on filedocumented in this encounter Additional Health Concerns Assessment Noted Time PHQ-9 Depression Total Score: 0 07/17/20 24 10:33 AM EST documented as of this encounter Care Teams Banjo Repair Person Relationship Specialty Start Date End Date Ashley Frankel MD [address] [place] [address] PCP - General Family Medicine 08/28/18 Sonya Hoang [address] 3rd [place] [address] Gastroenterology 07/17/24 Kishore Dorsey MD [address] [place] [address] Urology 07/17/24 Raheel Gee 5 [place], [place] [address] Pulmonary Disease 07/17/24 Riya Fulton [address] [facility] 3rd [place] [address] Cardiology 07/17/24 Sergio Hackett [address] [place] [address] Orthopaedic Surgery 07/17/24 Dominga Silva, AnanthD [address] [place] [address] Pharmacist Internal Medicine 07/22/24 [facility] 10/10/24 documented as of this encounter
--- OUTSIDE RECORDS SUMMARY | 2024-10-26 14:22 | XMS_ITS | Encounter Summary ---
Author Organization [employer] Address [address] [facility] 7t [place] [address] Care Team Providers Care Hand Cell Tuber Name Role Phone Ashley Frankel MD Primary Care Provider [phone] Viktor November Unavailable Kishore Dorsey MD Unavailable [phone] Raheel Gee Unavailable [phone] Riya Fulton Unavailable Sergio Hackett Unavailable Unavailable Dominga SilvaD Unavailable Reason for Referral * Imaging (Urgent) - Closed Specialty Diagnoses / Procedures Referred By Jeromy worrell Referred To Contact Radiology Diagnoses Other microscopic hematuria Acute bilateral low back pain without sciatica Procedures US Renal Urinary bladder Malika Mac MD [address] [place] [address] Phone: tel: fax: [address] Phone: tel: fax: Referral ID Status Reason Start Date Expiration Date Visits Re quested Visits Authorized [id number] Closed 09/27/2024 09/27/2025 1 1 Reason for Visit * Reason Comments Back Pain Encounter Details Date Type Department Care Team (Late st Contact Info) Description 09/27/2024 11:00 AM EST Office Visit [facility] [address] [place] [address] Malika Mac MD [address] [place], [place] [phone] Other microscopic hematuria (Primary Dx); Acute bilateral [...] Description 10/28/2024 9:00 AM EST Medication Management [facility] [address] [place] [address] Dominga Silva, PharmD [address] [place] [address] 12/09/2024 8:00 AM EDT Office Visit [facility] [address] [place] [address] Jackie Peacock 01/23/2025 9:45 AM EDT Office Visit [facility] [address] [place] [address] Ashley Frankel MD [address] [place] [address] Scheduled Orders Name Type Priority Associated Diagnoses [...] documented as of this encounter Care Teams Hand Cell Tuber Relationship Specialty Start Date End Date Ashley Frankel MD [address] [place] [address] PCP - General Family Medicine 08/28/18November [address] [place] [address] Gastroenterology 07/17/24 Kishore Dorsey MD [address] [place] [address] Urology 07/17/24 Raheel Gee 5 [place], [place] 10[address] Pulmonary Disease 07/17/24 Riya Fulton [address] [place] [address] Cardiology 07/17/24 Sergio Hackett [address] [place] [address] Orthopaedic Surgery 07/17/24 Dominga Silva, Mehrdad [address] [place] [address] Pharmacist Internal Medicine 07/22/24 documented as of this encounter
--- OUTSIDE RECORDS SUMMARY | 2024-10-26 14:22 | XMS_ITS | Encounter Summary ---
Author Organization [employer] Address [address] [facility] 7t [place] [address] Care Team Providers Care Door Repairer Bus Name Role Phone Ashley Frankel MD Primary Care Provider [phone]- [phone] Viktor November Unavailable Kishore Dorsey MD Unavailable [phone] Raheel Gee Unavailable [phone] Riya Fulton Unavailable Sergio Hackett Unavailable [...] 9:00 AM EST Medication Management [facility] MEDICINE [address] [place] [address] Dominga Silva PharmD [address] [place] [address] 12/09/2024 8:00 AM EDT Office Visit [facility] ADULT DENTAL [address] [place] [address] 12[address] Jackie Peacock 01/23/2025 9:45 AM EDT Office Visit [facility] MED[facility] [address] [place] [address] Ashley Frankel MD [address] [place] [address] documented as of this encounter Visit Diagnoses Not on filedocumented in this encounter Additional Health Concerns Assessment Noted Time PHQ-9 Depression Total Score: 0 07/17/20 24 10:33 AM EST documented as of this encounter Care Teams Door Repairer Bus Relationship Specialty Start Date End Date Ashley Frankel MD [address] [place] [address] 17273 PCP - General Family Medicine 08/28/18 Sonya Hoang [address] 3rd [place] [address] Gastroenterology 07/17/24 Kishore Dorsey MD [address] [place] [address] Urology 07/17/24 Raheel Gee 5 [place], [place] [address] Pulmonary Disease 07/17/24 Riya Fulton [address] 3rd [place] [address] Cardiology 07/17/24 Sergio Hackett [address] [facility] Bright 2nd [place] [address] Orthopaedic Surgery 07/17/24 Dominga Silva, AnanthD 230 [place] [address] Pharmacist Internal Medicine 07/22/24 documented as of this encounter
--- OUTSIDE RECORDS SUMMARY | 2024-10-26 14:22 | XMS_ITS | Encounter Summary ---
Author Organization [employer] Address [address] [place] [address] 7t [place] [address] Care Team Providers Care K [employer] Principal Name Role Phone Ashley Frankel MD Primary Care Provider [phone] Viktor November Unavailable Kishore Dorsey MD Unavailable Raheel Gee Unavailable [phone] Riya Fulton Unavailable Sergio Hackett Unavailable Unavailable Dominga Silva PharmD Unavailable Encounter Details Date Type Department Care Team (Late st Contact Info) Description 09/13/2022 Abstract [facility] MEDICINE [address] [place] [address] Ashley Frankel MD [address] [place] [address] Social History Tobacco Use Types Packs/Day Years [...] 9:00 AM EST Medication Management [facility] MEDICINE [address] [place] [address] Dominga Silva, PharmD [address] [place] [address] 12/09/2024 8:00 AM EDT Office Visit [facility] ADULT DENTAL [address] [place] [address] Jackie Peacock 01/23/2025 9:45 AM EDT Office Visit [facility] MEDICINE [address] [place] [address] Ashley Frankel MD [address] [place] [address] documented as of this encounter Procedures Procedure Name Priority Date/Time Associated Diagnosis Comments COLONOSCOPY Routine 09/06/2012 documented in this encounter Results * Colonoscopy (09/06/2012) Colonoscopy normal with Dr. Barrera Historical Provider [facility] Final Result documented in this encounter Visit Diagnoses Not on filedocumented in this encounter Care Teams [employer] Principal Relationship Specialty Start Date End Date Ashley Frankel MD [address] [place] [address] PCP - General Family Medicine 08/28/18November 11 [facility] 3rd [place] [address] Gastroenterology 07/17/24 Kishore Dorsey MD [address] [place] [address] Urology 07/17/24 Raheel Gee 5 [place], [place] 10[address] Pulmonary Disease 07/17/24 Riya Fulton 11 [facility] 3rd [place] [address] Cardiology 07/17/24 Sergio Hackett [address] 2nd [place] [address] Orthopaedic Surgery 07/17/24 Dominga Silva, Mehrdad 230 [place] [address] Pharmacist Internal Medicine 07/22/24 De. [facility] Psychiatry 10/10/24 documented as of this encounter
--- OUTSIDE RECORDS SUMMARY | 2024-10-26 14:22 | XMS_ITS | Encounter Summary ---
Author Organization [employer] Address [address] [facility] 7t [place] [address] Care Team Providers Care Architectural Drafter Name Role Phone Ashley Frankel MD Primary Care Provider [phone]- [phone] Viktor November Unavailable Kishore Dorsey MD Unavailable [phone] Raheel Gee Unavailable [phone] Riya Fulton Unavailable Sergio Hackett Unavailable Unavailable Dominga Silva PharmD Unavailable Encounter Details Date Type Department Care Team (Late st Contact Info) Description 09/09/2024 Orders Only [facility] External Provider, [facility] Renal calculi (Primary Dx) Social History [...] Description 10/28/2024 9:00 AM EST Medication Management [facility] MEDICINE [address] [place] [address] Dominga Silva, PharmD 230 [place] [address] 12/09/2024 8:00 AM EDT Office Visit [facility] ADULT DENTAL 230 [place] [address] Jackie Peacock 01/23/2025 9:45 AM EDT Office Visit [facility] MEDICINE [address] [place] [address] Ashley Frankel MD [address] [place] [address] documented as of this encounter Procedures Procedure [...] EST Narrative 09/30/2024 1:13 PM EST ? [facility] ?[address] ?[place] [address] ? Ultrasound Report ? Signed ? Patient: Krista,Bobby ?MR#: [id number] ? : 1965 ?Acct:[id number] ? Age/Sex: 59 / M ?ADM Date: // ? Loc: HO.US ? Attending Dr: Malika Mac MD ? Ordering Physician: Malika Mac MD ?? Date of Service: 09/30/24 ?? Procedure(s): US retroperitoneal comp ?? Accession Number(s): [id number] ? cc: Ashley Frankel MD; Malika Mac [...] DD/ 1313 ? TD/TT: 09/30/24 1313 ? Woolen Tester: ? Procedure Note Donjacobter, Image - 09/30/2024 [place] [address] Ultrasound Report Signed Patient: Pierce Velasco#: [id number] : 1965Acct:[id number] Age/Sex: 59 / MADM Date: 09/30/24 Loc: HO.US Attending Dr: Malika Mac MD Ordering Physician: Malika Mac MD Date of Service: 09/30/24 Procedure(s): US retroperitoneal comp Accession Number(s): [id number] cc: Ashley Frankel MD; Malika Mac MD [...] 09/30/24 1313 DD/ 1313 TD/TT: 09/30/24 1313 Woolen Tester: us Malika Mac MD IMG US PROCEDURES Final Result * High Sensitivity Troponin I (09/09/2024 2:44 PM EST) TROPONIN I HIGH SENSITIVITY 5.2 <3.5 - 35.0 ng/L [facility] Comment:The Schmidt high sens itivity Troponin-I results should beused in conjunction with other diagnostic information suchas ECG, clinical observations and information, and patientsymptoms to aid in the diagnosis of OH. 09/09/2024 2:44 PM EST 09/09/2024 2:53 PM EST us Generic External Data Provider LAB BLOOD ORDERAB LES Final Result Performing Organization Address City/[facility] Co de Phone Number [facility] [address] [place] [phone] * Lipase (09/09/2024 11:02 AM EST) Lipase 28 8 - 78 U/L [facility] 09/09/2024 11:0 2 AM EST 09/09/2024 11:06 AM EST us Generic External Data Provider LAB BLOOD ORDERAB LES Final Result Performing Organization Address City/[facility]/ZIP Co de Phone Number [facility] [address] [place] [address] [phone] * Magnesium (09/09/2024 11:02 AM EST) Magnesium 2.0 1.6 - 2.6 mg/dL [facility] 09/09/2024 11:0 2 AM EST 09/09/2024 11:06 AM EST us Generic External Data Provider LAB BLOOD ORDERAB LES Final Result [facility] [address] [place] [phone] [phone] * (ABNORMAL) Basic Metabolic Panel (09/09/2024 11:02 AM EST) Sodium 142 135 - 145 mmol/L [facility] Potassium 3.7 3.3 - 5.1 mmol/L [facility] Chloride 108 96 - 108 mmol/L [facility] Carbon Dioxide 29 22 - 29 mmol/L [facility] Anion Gap 9(L) 12 - 20 [facility] Urea Nitrogen (BUN) 13 9 - 16 mg/dL [facility] Creatinine, Serum 1.00 0.5 - 1.4 mg/dL [facility] Creatinine Clr Calc Pharmacy 81.3 [facility] Comment:eGFR (calculated fro m the MDRD study equation) and eCrCl(calculated from the Cockcroft-Gault equation) are based ondifferent parameters and may not yield comparable results.If eCrCl result is absurd, please check patient'sheight/weight. Estimated Glomerular Filt Rate >60 [facility] Comment:Chronic Kidney Disea se: Estimated GFR < 60 mL/min/[id number] Kidney Disease: Estimated GFR < 15 mL/min/1.73m2 Glucose 147(H) 60 - 115 mg/dL [facility] Calcium 9.2 8.4 - 10.2 mg/dL [facility] 09/09/2024 11:0 2 AM EST 09/09/2024 11:06 AM EST Generic External Data Provider LAB BLOOD ORDERAB LES Final Result Performing Organization Address [facility] de Phone Number [facility] [address] [place] [phone] * Hepatic Function Panel (09/09/2024 11:02 AM EST) Bilirubin, Total 0.9 0.0 - 1.0 mg/dL [facility] Bilirubin, Direct 0.3 0.0 - 0.5 mg/dL [facility] Aspartate Amino Transferase 29 5 - 37 U/L [facility] Alanine Aminotransferase 23 0 - 40 U/L [facility] Total Protein 6.9 6.5 - 8.0 g/dL [facility] Albumin Level 4.1 3.5 - 5.0 g/dL [facility] Alkaline Phosphatase 100 39 - 117 U/L [facility] 09/09/2024 11:0 2 AM EST 09/09/2024 11:06 AM EST Generic External Data Provider LAB BLOOD ORDERAB LES Final Result Performing Organization Address [facility] Phone Number [facility] [address] [place] [phone] * (ABNORMAL) CBC auto differential (09/09/2024 11:02 AM EST) White Blood Count 3.7(L) 4.8 - 10.8 X10*3/uL [facility] Red Blood Count 4.60 4.60 - 5.80 X10*6/uL [facility] Hemoglobin 13.8(L) 14.0 - 18.0 g/dl [facility] Hematocrit 41.4(L) 42.0 - 52.0 % [facility] Mean Corpuscular Volume 90.0 80.0 - 98.0 fL [facility] Mean Corpuscular Hemoglobin 30.0 27.0 - 33.0 pg [facility] Mean Corpuscular HGB Conc 33.3 31.0 - 36.0 g/dl [facility] Red Cell Distribution Width 13.2 11.0 - 16.0 % [facility] Platelet Count 208 160 - 400 X10*3/uL [facility] Mean Platelet Volume 10.4 9.4 - 12.4 fL [facility] Neutrophils Percent Auto 53.8 45 - 73 % [facility] Imm Gran Pct Auto 0.3 0.0 - 0.4 % [facility] Lymphocytes Percent Auto 32.4 20 - 40 % [facility] Monocytes Percent Auto 10.3 2 - 11 % [facility] Eosinophils Percent Auto 2.4 0 - 4 % [facility] Basophils Percent Auto 0.8 0 - 2 % [facility] NRBC Pct Auto 0.0 0.0 - 0.2 /100WBC [facility] Neutrophils Absolute Auto 2.0 2.0 - 8.3 x10*3/uL [facility] Imm Gran Abs Auto 0.01 0.00 - 0.03 X10*3/uL [facility] Lymphocytes Absolute Auto 1.2 1.2 - 4.9 X10*3/uL [facility] Monocytes Absolute Auto 0.4 0.1 - 1.2 X10*3/uL [facility] Eosinophils Absolute Auto 0.1 0.0 - 0.4 X10*3/uL [facility] Basophils Absolute Auto 0.0 0.0 - 0.2 X10*3/uL [facility] NRBC Abs Auto 0.000 0.0 - 0.012 X10*3/uL [facility] 09/09/2024 11:0 2 AM EST 09/09/2024 11:06 AM EST us Generic External Data Provider LAB BLOOD ORDERAB LES Final Result [facility] [address] [place] [phone] * SARS-CoV-2 RNA, Influenza A/B, and RSV RNA, Ql NAAT (09/09/2024 11:01 AM EST) Pathologist [facility] Influenza A PCR NEGATIVE Negative [facility] Influenza B PCR NEGATIVE Negative [facility] Resp Syncy Virus RNA Qual PCR NEGATIVE Negative [facility] SARS COV2 PCR NEGATIVE Negative [facility] Comment:All test results mus t [...] use by authorized laboratories.Testing performed on the Infrafone GeneXpert utilizingreal-time RT-PCR.All SARS CoV2 and positive influenza A/B results arereported to [facility]. 09/09/2024 11:0 1 AM EST 09/09/2024 11:06 AM EST [facility] External Data Provider LAB MICROBIOLOGY - GENERAL ORDERABLES Final Result Performing Organization Address City/[facility] de Phone Number [facility] [address] [place] [phone] * High Sensitivity Troponin I (09/09/2024 11:01 AM EST) Pathologist [facility] TROPONIN I HIGH SENSITIVITY 3.2 <3.5 - 35.0 ng/L [facility] Comment:The Schmidt high sens itivity Troponin-I results should beused in conjunction with other diagnostic information suchas ECG, clinical observations and information, and patientsymptoms to aid in the diagnosis of OH. 09/09/2024 11:0 1 AM EST 09/09/2024 11:06 AM EST Generic External Data Provider LAB BLOOD ORDERAB LES Final Result [facility] [address] [place] [phone] * XR Chest 2 Views (09/09/2024 10:34 AM EST) Anatomical Region Laterality Modality Chest Radiographic Hannah ging 09/09/2024 10:3 4 AM EST Narrative 09/09/2024 11:06 AM EST ? [facility] ?[address] ?[place] [address] ?XRay Report ? Signed ? Patient: Krista,Bobby ?MR#: [id number] ? : 1965 ?Acct:[id number] ? Age/Sex: 59 / M ?ADM Date: 09/09/24 ? Loc: HO.ED ? Attending Dr: ? Ordering Physician: Deandra Reynolds DO ?? Date of Service: 09/09/24 ?? Procedure(s): XR chest 2V ?? Accession Number(s): [id number] ? cc: Ashley Frankel MD; Deandra Reynolds [...] DD/ 1034 ? TD/TT: 09/09/24 1045 ? Woolen Tester: ? Procedure Note Reshma, Cesar - 09/09/2024 [place] [address] [facility] [place] [address] XRay Report Signed Patient: Pierce Velasco#: [id number] : 1965Acct:[id number] Age/Sex: 59 / MADM Date: 09/09/24 Loc: HO.ED Attending Dr: Ordering Physician: Deandra Reynolds DO Date of Service: 09/09/24 Procedure(s): XR chest 2V Accession Number(s): [id number] cc: Ashley Frankel MD; Deandra Reynolds DO [...] 09/09/24 1103 DD/ 1034 TD/TT: 09/09/24 1045 Woolen Tester: [facility] External Provider IMG XR PROCEDURES Edited Result - Final documented in this encounter Visit Diagnoses Diagnosis Renal calculi- Primary Calculus of kidney documented in this encounter Additional Health Concerns Assessment Noted Time PHQ-9 Depression Total Score: 0 07/17/20 10:33 AM EST documented as of this encounter Care Teams Architectural Drafter Relationship Specialty Start Date End Date Ashley Frankel MD [address] [place] [address] PCP - General Family Medicine 08/28/18November [address] 3rd [place] [address] Gastroenterology 07/17/24 Kishore Dorsey MD [address] [place] [address] Urology 07/17/24 Raheel Gee 5 [place], [place] 10[address] Pulmonary Disease 07/17/24 Riya Fulton 11 [facility] 3rd [place] [address] Cardiology 07/17/24 Sergio Hackett [address] [place] [address] Orthopaedic Surgery 07/17/24 Dominga Silva, Mehrdad [address] [place] [address] Pharmacist Internal Medicine 07/22/24 documented as of this encounter
--- OUTSIDE RECORDS SUMMARY | 2024-10-26 14:22 | XMS_ITS | Encounter Summary ---
Author Organization [employer] Address 75 [facility] 7t [place] [address] Care Team Providers Care Mannequin Maker Name Role Phone Ashley Frankel MD Primary Care Provider [phone] Viktor November Unavailable Kishore Dorsey MD Unavailable [phone] Raheel Gee Unavailable [phone] Riya Fulton Unavailable Sergio Hackett Unavailable Unavailable Dominga Silva PharmD Unavailable Reason for Visit * Reason Comments Constipation Encounter Details Date Type Department Care Team (Late st Contact Info) Description 09/28/2024 11:00 AM EST Office Visit [facility] [address] [place] [address] [phone] Name, MD Les [address] [place] [address] [phone] Constipation, unspecified constipation type (Primary Dx); Primary [...] the past 12 months, has t he [employer], gas, oil or water [employer] threatened to shut off services in your [...] Description 10/28/2024 9:00 AM EST Medication Management [facility] [address] [place] [address] Dominga Silva, PharmD [address] [place] [address] 12/09/2024 8:00 AM EDT Office Visit [facility] [address] [place] [address] Jackie Peacock 01/23/2025 9:45 AM EDT Office Visit [facility] [address] [place] [address] Ashley Frankel MD [address] [place] [address] documented as of this encounter Visit Diagnoses Diagnosis Constipation, unspecified constipation type- Primary Primary hypertension Unspecified essential hypertension documented in this encounter Additional Health Concerns Assessment Noted Time PHQ-9 Depression Total Score: 0 07/17/20 10:33 AM EST documented as of this encounter Care Teams Mannequin Maker Relationship Specialty Start Date End Date Ashley Frankel MD [address] [place] [address] PCP - General Family Medicine 08/28/18November [address] [address] Gastroenterology 07/17/24 Kishore Dorsey MD 10 [facility] [address] [place] [address] Urology 07/17/24 Raheel Gee 5 [place], [place] 10[address] Pulmonary Disease 07/17/24 Riya Fulton [address] [address] Cardiology 07/17/24 Sergio Hackett [address] [place] [address] Orthopaedic Surgery 07/17/24 Dominga Silva, Mehrdad [address] [place] [address] Pharmacist Internal Medicine 07/22/24 documented as of this encounter
--- OUTSIDE RECORDS SUMMARY | 2024-10-26 14:22 | XMS_ITS | Encounter Summary ---
Author Organization [facility] Address [address] [place] [address] Care Team Providers Care Clicking Machine Operator Name Role Phone Ashley Frankel MD Primary Care Provider [phone]- [phone] Reason for Visit * Reason Comments Flank Pain Bl flank pain here r ecently with kidney stone that had to get broken up on the right . Now having pain while urinating and left flank pain Encounter Details Date Type Department Care Team (Late st Contact Info) Description 10/12/2024 3:45 AM EST - 10/12/2024 9:39 AM EST Emergency [facility] Emergency [address] [place] [id number] Smith Quan MD [address] [address] Urinary tract infection with hematuria, site unspecified [...] REFLEX MICROSCOPIC AND CULTURE - Abnormal Specific [place] Urine 1.014 pH, Urine 5.5 Leukocytes, Urine [...] Procedure Abnormality Status --------- ------ CBC auto differential[[id number]] Abnormal Final result Please view results for these tests on the individual orders. URINALYSIS WITH REFLEX MICROSCOPIC AND CULTURE Narrative: The following orders were created for panel order Urinalysis with reflex microscopic and culture. Procedure Abnormality Status --------- ------ Urinalysis with reflex ...[[id number]] Abnormal Edited Result - FINAL [place] urine culture tube[[id number]] Final result Please view results for these [...] post lithotripsy, stent placement for kidney stones [facility] as noted in greater detail above. [...] outpatient antibiotic treatment, may require transfer to [place] given recent postoperative status. Medications gentamicin (GARAMYCIN) 420 mg in sodium chloride 0.9 % 100 mL IVPB (420 mg intravenous New Bag 10/12/24 9740) ketorolac (TORADOL) injection 15 mg (15 mg intravenous Given 10/12/24 3051) sodium chloride 0.9 % bolus 1,000 mL [...] 10:45 AM EDT Consult Orthopedic Surgery - [place] [address] [address] Raheel Slater, DPM [address] [address] documented as of this encounter Procedures Procedure [...] This document has been electronically signed by: ySed Cooley MD on 10/12/2024 06:38:48 Narrative 10/12/2024 [...] K/mcL LAB HEMETOLOGY METHOD 10/12/2024 12:01 AM [facility] RBC 4.60 4.50 - 5.50 M/mcL LAB HEMETOLOGY METHOD 10/12/2024 12:01 AM [facility] Hemoglobin 14.1 13.5 - 17.5 g/dL LAB HEMETOLOGY METHOD 10/12/2024 12:01 AM [facility] Hematocrit 42.7 42.0 - 54.0 % LAB HEMETOLOGY METHOD 10/12/2024 12:01 AM [facility] MCV 92.2 79.0 - 98.0 FL LAB HEMETOLOGY METHOD 10/12/2024 12:01 AM [facility] MCH 30.5 27.0 - 32.0 pcg LAB HEMETOLOGY METHOD 10/12/2024 12:01 AM [facility] MCHC 33.0 32.0 - 37.0 g/dL LAB HEMETOLOGY METHOD 10/12/2024 12:01 AM [facility] RDW 12.8 11.0 - 15.0 % LAB HEMETOLOGY METHOD 10/12/2024 12:01 AM [facility] Platelets 327 130 - 400 K/mcL LAB HEMETOLOGY METHOD 10/12/2024 12:01 AM [facility] MPV 10.4 7.0 - 11.0 FL LAB HEMETOLOGY METHOD 10/12/2024 12:01 AM [facility] NRBC 0.0 <1.0 % LAB HEMETOLOGY METHOD 10/12/2024 12:01 AM [facility] NRBC Absolute 0.00 <0.10 K/mcL LAB HEMETOLOGY METHOD 10/12/2024 12:01 AM [facility] Neutrophils Relative 66.8 % LAB HEMETOLOGY METHOD 10/12/2024 12:01 AM [facility] Lymphocytes Relative 21.5 % LAB HEMETOLOGY METHOD 10/12/2024 12:01 AM [facility] Monocytes Relative 9.6 % LAB HEMETOLOGY METHOD 10/12/2024 12:01 AM [facility] Eosinophils Relative 1.2 % LAB HEMETOLOGY METHOD 10/12/2024 12:01 AM [facility] Basophils Relative 0.4 % LAB HEMETOLOGY METHOD 10/12/2024 12:01 AM [facility] Immature Granulocytes Relative 0.5 % LAB HEMETOLOGY METHOD 10/12/2024 12:01 AM [facility] Neutrophils Absolute 5.12 1.50 - 7.00 K/mcL LAB HEMETOLOGY METHOD 10/12/2024 12:01 AM [facility] Lymphocytes Absolute 1.65 1.00 - 5.00 K/mcL LAB HEMETOLOGY METHOD 10/12/2024 12:01 AM [facility] Monocytes Absolute 0.74 0.20 - 1.00 K/mcL LAB HEMETOLOGY METHOD 10/12/2024 12:01 AM [facility] Eosinophils Absolute 0.09 0.00 - 0.50 K/mcL LAB HEMETOLOGY METHOD 10/12/2024 12:01 AM [facility] Basophils Absolute 0.03 0.00 - 0.20 K/mcL LAB HEMETOLOGY METHOD 10/12/2024 12:01 AM [facility] Immature Granulocytes Absolute 0.04(H) 0.00 - 0.03 K/mcL LAB HEMETOLOGY METHOD 10/12/2024 12:01 AM [facility] Blood Venous blood specimen / Unknown Venipuncture / Unknown 10/11/2024 11:18 PM EST 10/11/2024 11:44 PM EST us Smith Quan MD LAB BLOOD ORDERABLES Final Result [facility] [address] [place] [address], * (ABNORMAL) Comprehensive metabolic panel (10/11/2024 11:18 PM EST) Sodium 138 133 - 145 mmol/L LAB CHEMISTRY METHOD 10/12/2024 12:38 AM [facility] Potassium 4.3 3.5 - 5.5 mmol/L LAB CHEMISTRY METHOD 10/12/2024 12:38 AM [facility] Chloride 107 96 - 110 mmol/L LAB CHEMISTRY METHOD 10/12/2024 12:38 AM [facility] CO2 30 21 - 32 mmol/L LAB CHEMISTRY METHOD 10/12/2024 12:38 AM [facility] Anion Gap 1(L) 3 - 11 LAB CHEMISTRY METHOD 10/12/2024 12:38 AM [facility] Glucose 126(H) 70 - 100 mg/dL LAB CHEMISTRY METHOD 10/12/2024 12:38 AM [facility] BUN 15 5 - 25 mg/dL LAB CHEMISTRY METHOD 10/12/2024 12:38 AM [facility] Creatinine 1.15 0.70 - 1.30 mg/dL LAB CHEMISTRY METHOD 10/12/2024 12:38 AM [facility] eGFR 73 >=60 mL/min/1. 73m2 LAB CHEMISTRY METHOD 10/12/2024 12:38 AM [facility] Comment:Calculation based on the??Chronic Kidney Disease Epidemiology Collaboration (CKD-EPI) equation refit??without adjustment for race. BUN/Creatinine Ratio 13.0 LAB CHEMISTRY METHOD 10/12/2024 12:38 AM [facility] Calcium 9.8 8.5 - 10.5 mg/dL LAB CHEMISTRY METHOD 10/12/2024 12:38 AM [facility] AST (SGOT) 24 10 - 42 unit/L LAB CHEMISTRY METHOD 10/12/2024 12:38 AM [facility] ALT (SGPT) 22 10 - 60 unit/L LAB CHEMISTRY METHOD 10/12/2024 12:38 AM [facility] Alkaline Phosphatase 100 42 - 121 unit/L LAB CHEMISTRY METHOD 10/12/2024 12:38 AM [facility] Total Protein 6.9 6.0 - 8.0 g/dL LAB CHEMISTRY METHOD 10/12/2024 12:38 AM [facility] Albumin 3.9 3.2 - 5.0 g/dL LAB CHEMISTRY METHOD 10/12/2024 12:38 AM [facility] Total Bilirubin 0.6 0.0 - 1.4 mg/dL LAB CHEMISTRY METHOD 10/12/2024 12:38 AM [facility] Blood Venous blood specimen / Unknown Venipuncture / Unknown 10/11/2024 11:18 PM EST 10/11/2024 11:44 PM EST us Smith Quan MD LAB BLOOD ORDERABLES Final Result Performing Organization Address [facility] Co de Phone Number [facility] [address] [place] [address], [place] [phone] * Culture urine (10/11/2024 10:34 PM EST) Culture, Urine No growth 10/13/2024 10:54 AM EST [facility] Urine Urine specimen obtained by clean catch procedure / Unknown Non-blood Collection / Unknown 10/11/2024 10:34 PM EST 10/11/2024 11:52 PM EST Smith Quan MD LAB MICROBIOLOGY - GENERAL ORDERABLES Final Result Performing Organization Address [facility] Co de Phone Number [facility] [address] [place] [address], * [place] urine culture tube (10/11/2024 10:34 PM EST) Pathologist [facility] Extra Tube Hold for add-ons. 10/12/2024 1:11 AM EST [facility] Comment:Auto resulted. Urine Urine specimen obtained by clean catch procedure / Unknown Non-blood Collection / Unknown 10/11/2024 10:34 PM EST 10/11/2024 11:07 PM EST Smith Quan MD LAB URINE ORDERABLES Final Result Performing Organization Address [facility] Co de Phone Number [facility] [address] [place] [address], [place] [phone] * (ABNORMAL) Urinalysis with reflex microscopic and culture (10/11/2024 10:34 PM EST) [facility] Specific [place] Urine 1.014 1.003 - 1.030 LAB URINALYSIS - AUTOMATED METHOD 10/12/2024 6:50 AM EST [facility] pH, Urine 5.5 5.0 - 8.0 pH LAB URINALYSIS - AUTOMATED METHOD 10/12/2024 6:50 AM [facility] Leukocytes, Urine Moderate(A) Negative LAB URINALYSIS - AUTOMATED METHOD 10/12/2024 6:50 AM [facility] Nitrite, Urine Positive(A) Negative LAB URINALYSIS - AUTOMATED METHOD 10/12/2024 6:50 AM [facility] Protein, Urine 300(A) <=Trace mg/dL LAB URINALYSIS - AUTOMATED METHOD 10/12/2024 6:50 AM [facility] Glucose, Urine Negative Negative mg/dL LAB URINALYSIS - AUTOMATED METHOD 10/12/2024 6:50 AM [facility] Ketones, Urine Negative Negative mg/dL LAB URINALYSIS - AUTOMATED METHOD 10/12/2024 6:50 AM [facility] Urobilinogen, Urine 1.0 0.2 - 1.0 mg/dL LAB URINALYSIS - AUTOMATED METHOD 10/12/2024 6:50 AM [facility] Bilirubin, Urine Small(A) Negative LAB URINALYSIS - AUTOMATED METHOD 10/12/2024 6:50 AM [facility] Blood, Urine Large(A) Negative LAB URINALYSIS - AUTOMATED METHOD 10/12/2024 6:50 AM [facility] RBC, Urine 1,724.4(H) 0 - 4 /HPF LAB URINALYSIS - AUTOMATED METHOD 10/12/2024 6:50 AM [facility] Comment:This is an appended report. These results have been appended to a previously preliminary verified report. WBC, Urine 48.9(H) 0 - 4 /HPF LAB URINALYSIS - AUTOMATED METHOD 10/12/2024 6:50 AM [facility] Comment:This is an appended report. These results have been appended to a previously preliminary verified report. Squamous Epithelial, Urine >100(H) 0 - 60 /LPF LAB URINALYSIS - AUTOMATED METHOD 10/12/2024 6:50 AM EST [facility] Comment:This is an appended report. These results have been appended to a previously preliminary verified report. Crystals, Urine LT CALCIUM OXALATE /LPF LAB URINALYSIS - AUTOMATED METHOD 10/12/2024 6:50 AM EST [facility] Comment:Corrected result: Pr eviously reported on 10/11/2024 at 2351 EST. Bacteria, Urine Negative Negative /HPF LAB URINALYSIS - AUTOMATED METHOD 10/12/2024 6:50 AM EST [facility] Comment: Edited result: Previously reported as Negative /HPF on 10/11/2024 at 2351 EST. This is an appended report. ??These results have been appended to a previously final verified report. Hyaline Casts, Urine 13.6(H) 0 - 3 /LPF LAB URINALYSIS - AUTOMATED METHOD 10/12/2024 6:50 AM EST [facility] Comment:This is an appended report. These results have been appended to a previously preliminary verified report. Urine Urine specimen obtained by clean catch procedure / Unknown Non-blood Collection / Unknown 10/11/2024 10:34 PM EST 10/11/2024 11:07 PM EST us Smith Quan MD LAB URINE ORDERABLES Edited Result - Final [facility] [address] [place] [address], documented in this encounter Visit Diagnoses Diagnosis [...] RN) documented in this encounter Care Teams Clicking Machine Operator Relationship Specialty Start Date End Date Ashley Frankel MD [address] [place] [phone] PCP - General Family Medicine 08/09/24 documented as of this encounter
--- OUTSIDE RECORDS SUMMARY | 2024-10-26 14:23 | XMS_ITS | Encounter Summary ---
Author Organization [employer] Address [address] [place] [address] [address] [place] [address] Care Team Providers Care Radio Intelligence Operator Name Role Phone Ashley Frankel MD Primary Care Provider [phone]- [phone] Viktor November Unavailable Kishore Dorsey MD Unavailable Raheel Gee Unavailable [phone] Riya Fulton Unavailable Sergio Hackett Unavailable Unavailable Dominga Silva PharmD Unavailable Encounter Details Date Type Department Care Team (Late st Contact Info) Description 04/07/2023 Abstract [facility]INE [address] [place] [phone] Ashley Frankel MD [address] [place], [place] [phone] Social History Tobacco Use Types Packs/Day Years [...] 10/28/2024 9:00 AM EST Medication Management [facility] [address] [place] [address] Dominga Silva PharmD [address] [place] [address] 12/09/2024 8:00 AM EDT Office Visit [facility] ADULT DENTAL [address] [place] [address] Jackie Peacock 01/23/2025 9:45 AM EDT Office Visit [facility] MED[facility]INE [address] [place] [address] Ashley Frankel MD [address] [place] [address] documented as of this encounter Procedures Procedure Name Priority Date/Time Associated Diagnosis Comments COLONOSCOPY Routine 04/06/2023 documented in this encounter Results * Colonoscopy (04/06/2023) [facility] Signature Colonoscopy Normal Normal Historical Provider HEALTH MAINTENANCE Final Result documented in this encounter Visit Diagnoses Not on filedocumented in this encounter Care Teams Radio Intelligence Operator Relationship Specialty Start Date End Date Ashley Frankel MD [address] [place] [address] PCP - General Family Medicine 08/28/18HoangNovember [address]rd [place] [address] Gastroenterology 07/17/24 Kishore Dorsey MD [address] [place] [address] Urology 07/17/24 Raheel Gee [address] [place], [place] 10[address] Pulmonary Disease 07/17/24 Riya Fulton [address] [place] [address] Cardiology 07/17/24 Sergio Hackett [address] [place] [address] Orthopaedic Surgery 07/17/24 Dominga Silva, Mehrdad [address] [place] [address] Pharmacist Internal Medicine 07/22/24 De. Dalal Psychiatry 10/10/24 documented as of this encounter
--- OUTSIDE RECORDS SUMMARY | 2024-10-26 14:23 | XMS_ITS | Encounter Summary ---
Author Organization [facility] [employer] Address [address] [facility] 7t [place] [address] Care Team Providers Care Commodity Lead Name Role Phone Ashley Frankel MD Primary Care Provider [phone]- [phone] Viktor November Unavailable Kishore Dorsey MD Unavailable Raheel Gee Unavailable [phone] Riya Fulton Unavailable Sergio Hackett Unavailable Unavailable Dominga Silva PharmD Unavailable Reason for Visit * Reason Comments Scaling And Root Planing Encounter Details Date Type Department Care Team (Late st Contact Info) Description 05/29/2024 11:00 AM EDT Office Visit [facility] ADULT DENTAL [address] [place] [address] Jackie Peacock Dental calculus (Primary Dx); Dental [...] Timeout Time: 1118 (Dental SRP Adult) Location: [facility] Tooth: UL and LL Procedure: Scaling and Root Planing Verified the above with patient, assistant merchandiser, and provider. Confirmed via patient's chart, intraorally and by radiographs. Gauge And Instrument Inspector: not applicable Medical Hx: Vitals: There were [...] patient including brushing technique and flossing. Recommendations: [place] two times daily, modified burgess technique, Floss daily, Electric toothbrush, Soft bristle toothbrush, [place] Tongue Recall Frequency: 6 mo NV: 6mrc [...] 9:00 AM EST Medication Management [facility] MEDICINE [address] [place] [phone] Dominga Silva PharmD [address] [place] [address] 12/09/2024 8:00 AM EDT Office Visit [facility] ADULT DENTAL [address] [place] [address] Jackie Peacock 01/23/2025 9:45 AM EDT Office Visit [facility] MEDICINE [address] [place] [phone] Ashley Frankel MD [address] [place] [phone] documented as of this encounter Procedures Procedure [...] teeth documented in this encounter Care Teams Commodity Lead Relationship Specialty Start Date End Date Ashley Franekl MD [address] [place] [address] PCP - General Family Medicine 08/28/18HoangNovember [address] [place] [address] Gastroenterology 07/17/24 Kishore Dorsey MD [address] [place] [address] Urology 07/17/24 Raheel Gee 5 [place], [place] 10[address] Pulmonary Disease 07/17/24 Riya Fulton [address] [address] Cardiology 07/17/24 Sergio Hackett [address] [place] [address] Orthopaedic Surgery 07/17/24 Dominga Silva, Mehrdad [address] [place] [address] Pharmacist Internal Medicine 07/22/24 documented as of this encounter
--- OUTSIDE RECORDS SUMMARY | 2024-10-26 14:23 | XMS_ITS | Encounter Summary ---
Author Organization [employer] Address [address] [place] [address] 7t [place] [address] Care Team Providers Care Sap Trainer Name Role Phone Ashley Frankel MD Primary Care Provider [phone]- [phone] Viktor November Unavailable Kishore Dorsey MD Unavailable Raheel Gee Unavailable [phone] Riya Fulton Unavailable Sergio Hackett Unavailable Unavailable Dominga Silva PharmD Unavailable Encounter Details Date Type Department Care Team (Late st Contact Info) Description 02/01/2023 Telephone [facility] [address] [place], [place] [phone] Ashley Frankel MD [address] [place], [place] [phone] Social History Tobacco Use Types Packs/Day Years [...] EST Medication Management [facility] [address] [place] [phone] Dominga Silva PharmD [address] [place] [address] 12/09/2024 8:00 AM EDT Office Visit [facility] ADULT DENTAL [address] [place] [phone] Jackie Peacock 01/23/2025 9:45 AM EDT Office Visit [facility] [address] [place] [phone] Ashley Frankel MD [address] [place] [phone] documented as of this encounter Visit Diagnoses Not on filedocumented in this encounter Care Teams Sap Trainer Relationship Specialty Start Date End Date Ashley Frankel MD [address] [place] [phone] PCP - General Family Medicine 08/28/18November [address] [facility] [address] [place] [address] Gastroenterology 07/17/24 Kishore Dorsey MD [address] [place] [address] Urology 07/17/24 Raheel Gee 5 [place], [place] [address] Pulmonary Disease 07/17/24 Riya Fulton [address] [place] [address] Cardiology 07/17/24 Sergio Hackett [address]nd [place] [address] Orthopaedic Surgery 07/17/24 Dominga Silva, Mehrdad [address] [place] [phone] Pharmacist Internal Medicine 07/22/24 De. [facility] Psychiatry 10/10/24 documented as of this encounter
== END 2024-10-26 14:18 | disposition home or self-care (01) ==
LOC: HO.HHCLNP 14:17
PROVIDERS: Visit Provider Family Medicine
DX: M54.41 Lumbago with sciatica, right side (principal); M54.42 Lumbago with sciatica, left side
CPT/HCPCS: 87086

== ENCOUNTER 2024-10-31 07:59 | Outpatient (REF) | payer OTHER, SELFPAY ==
--- OUTSIDE RECORDS SUMMARY | 2024-10-31 09:36 | XMS_ITS | Encounter Summary ---
Author Organization [employer] Address [address] [facility] 7t [place] [address] Care Team Providers Care Manager Telecom Name Role Phone Ashley Frankel MD Primary Care Provider [phone]- [phone] Hoang, November Unavailable Kishore Dorsey MD Unavailable Raheel Gee Unavailable [phone] Riya Fulton Unavailable Sergio Hackett Unavailable [...] Description 11/01/2024 9:00 AM EST Medication Management [facility] [address] [place] [address] Dominga Silva PharmD [address] [place] [address] 12/09/2024 8:00 AM EDT Office Visit [facility] [address] [place] [address] Jackie Peacock 01/23/2025 9:45 AM EDT Office Visit [facility] [address] [place] [address] Ashley Frankel MD 230 [place] [address] documented as of this encounter Procedures Procedure Name Priority Date/Time Associated Diagnosis Comments CBC WITH AUTO DIFFERENTIAL Routine 10/10/2024 12:45 AM EST LIPASE Routine 10/10/2024 12:45 AM EST COMPREHENSIVE METABOLIC PANEL Routine 10/10/2024 12:45 AM EST documented in this encounter Results * Lipase (10/10/2024 12:45 AM EST) Lipase 36 8 - 78 U/L [facility] 10/10/2024 12:4 5 AM EST 10/10/2024 12:47 AM EST us Generic External Data Provider LAB BLOOD ORDERAB LES Final Result [facility] [address] [place] [address] [phone] * (ABNORMAL) Comprehensive Metabolic Panel (10/10/2024 12:45 AM EST) Sodium 141 135 - 145 mmol/L [facility] Potassium 3.8 3.3 - 5.1 mmol/L [facility] Chloride 106 96 - 108 mmol/L [facility] Carbon Dioxide 26 22 - 29 mmol/L [facility] Anion Gap 13 12 - 20 [facility] Urea Nitrogen (BUN) 16 9 - 16 mg/dL [facility] Creatinine, Serum 1.02 0.5 - 1.4 mg/dL [facility] Creatinine Clr Calc Pharmacy 72.0 [facility] Comment:eGFR (calculated fro m the MDRD study equation) and eCrCl(calculated from the Cockcroft-Gault equation) are based ondifferent parameters and may not yield comparable results.If eCrCl result is absurd, please check patient'sheight/weight. Estimated Glomerular Filt Rate >60 [facility] Comment:Chronic Kidney Disea se: Estimated GFR < 60 mL/min/1.96w5Kdhzgt Kidney Disease: Estimated GFR < 15 mL/min/1.73m2 Glucose 173(H) 60 - 115 mg/dL [facility] Calcium 9.6 8.4 - 10.2 mg/dL [facility] Bilirubin, Total 0.5 0.0 - 1.0 mg/dL [facility] Aspartate Amino Transferase 21 5 - 37 U/L [facility] Alanine Aminotransferase 14 0 - 40 U/L [facility] Total Protein 7.3 6.5 - 8.0 g/dL [facility] Albumin Level 4.1 3.5 - 5.0 g/dL [facility] Alkaline Phosphatase 92 39 - 117 U/L [facility] 10/10/2024 12:4 5 AM EST 10/10/2024 12:47 AM EST us Generic External Data Provider LAB BLOOD ORDERAB LES Final Result [facility] [address] [place], [place] [phone] * (ABNORMAL) CBC auto differential (10/10/2024 12:45 AM EST) White Blood Count 6.5 4.8 - 10.8 X10*3/uL [facility] Red Blood Count 4.40(L) 4.60 - 5.80 X10*6/uL [facility] Hemoglobin 13.6(L) 14.0 - 18.0 g/dl [facility] Hematocrit 38.7(L) 42.0 - 52.0 % [facility] Mean Corpuscular Volume 88.0 80.0 - 98.0 fL [facility] Mean Corpuscular Hemoglobin 30.9 27.0 - 33.0 pg [facility] Mean Corpuscular HGB Conc 35.1 31.0 - 36.0 g/dl [facility] Red Cell Distribution Width 12.7 11.0 - 16.0 % [facility] Platelet Count 275 160 - 400 X10*3/uL [facility] Mean Platelet Volume 10.0 9.4 - 12.4 fL [facility] Neutrophils Percent Auto 60.1 45 - 73 % [facility] Imm Gran Pct Auto 0.2 0.0 - 0.4 % [facility] Lymphocytes Percent Auto 25.9 20 - 40 % [facility] Monocytes Percent Auto 11.3(H) 2 - 11 % [facility] Eosinophils Percent Auto 1.9 0 - 4 % [facility] Basophils Percent Auto 0.6 0 - 2 % [facility] NRBC Pct Auto 0.0 0.0 - 0.2 /100WBC [facility] Neutrophils Absolute Auto 3.9 2.0 - 8.3 x10*3/uL [facility] Imm Gran Abs Auto 0.01 0.00 - 0.03 X10*3/uL [facility] Lymphocytes Absolute Auto 1.7 1.2 - 4.9 X10*3/uL [facility] Monocytes Absolute Auto 0.7 0.1 - 1.2 X10*3/uL [facility] Eosinophils Absolute Auto 0.1 0.0 - 0.4 X10*3/uL [facility] Basophils Absolute Auto 0.0 0.0 - 0.2 X10*3/uL [facility] NRBC Abs Auto 0.000 0.0 - 0.012 X10*3/uL [facility] 10/10/2024 12:4 5 AM EST 10/10/2024 12:47 AM EST us Generic External Data Provider LAB BLOOD ORDERAB LES Final Result [facility] [address] [place] [address] [phone] documented in this encounter Visit Diagnoses Not on filedocumented in this encounter Additional Health Concerns Assessment Noted Time PHQ-9 Depression Total Score: 0 07/17/20 10:33 AM EST documented as of this encounter Care Teams Manager Telecom Relationship Specialty Start Date End Date Ashley Frankel MD [address] [place] [address] PCP - General Family Medicine 08/28/18November [address] 3rd [place] [address] Gastroenterology 07/17/24 Kishore Dorsey MD [address] [place] [address] Urology 07/17/24 Raheel Gee 5 [place], [place] 10[address] Pulmonary Disease 07/17/24 Riya Fulton 11 [facility] 3rd [place] [address] Cardiology 07/17/24 Sergio Hackett [address] [place] [address] Orthopaedic Surgery 07/17/24 Dominga Silva, AnanthD [address] [place] [address] Pharmacist Internal Medicine 07/22/24 De. Dalal Psychiatry 10/10/24 documented as of this encounter
--- OUTSIDE RECORDS SUMMARY | 2024-10-31 09:36 | XMS_ITS | Encounter Summary ---
Author Organization [email or web address] Address 75 [facility] 7t [place] [address] Care Team Providers Care Plant And Machinery Valuer Name Role Phone Ashley Frankel MD Primary Care Provider [phone]- [phone] Hoang, November Unavailable Kishore Dorsey MD Unavailable Raheel Gee Unavailable [phone] Riya Fulton Unavailable Sergio Hackett Unavailable Unavailable Dominga Silva PharmD Unavailable Encounter Details Date Type Department Care Team (Late st Contact Info) Description 10/24/2024 Orders Only [facility] External Provider, [facility] Social History Tobacco Use Types Packs/Day [...] Description 11/01/2024 9:00 AM EST Medication Management [facility] [address] [place] [address] Dominga Silva PharmD [address] [place] [address] 12/09/2024 8:00 AM EDT Office Visit [facility] [address] [place] [address] [phone] Jackie Peacock 01/23/2025 9:45 AM EDT Office Visit [facility] [address] [place] [address] 29666 Ashley Frankel MD [address] [place] [address] documented as of this encounter Procedures Procedure [...] HIGH SENSITIVITY 3.4 <3.5 - 35.0 ng/L [facility] Comment:The Schmidt high sens itivity Troponin-I results should beused in conjunction with other diagnostic information suchas ECG, clinical observations and information, and patientsymptoms to aid in the diagnosis of [place]. 10/24/2024 4:58 PM EST 10/24/2024 5:02 PM EST us Generic External Data Provider LAB BLOOD ORDERAB LES Final Result Performing Organization Address City/[facility]/ZIP Co de Phone Number [facility] [address] [place] [address] [phone] * High Sensitivity Troponin I (10/24/2024 2:30 PM EST) TROPONIN I HIGH SENSITIVITY 4.1 <3.5 - 35.0 ng/L [facility] Comment:The Schmidt high sens itivity Troponin-I results should beused in conjunction with other diagnostic information suchas ECG, clinical observations and information, and patientsymptoms to aid in the diagnosis of [place]. 10/24/2024 2:30 PM EST 10/24/2024 2:33 PM EST us Generic External Data Provider LAB BLOOD ORDERAB LES Final Result Performing Organization Address City/[facility]/ZIP Co de Phone Number [facility] [address] [place] [phone] * B Type Natriuretic Peptide (BNP) (10/24/2024 2:30 PM EST) B Type Natriuretic Peptide 32 <100 pg/mL [facility] Comment:For those patients w ho are being treated with Natrecor(nesiritide, recombinant BNP), BNP testing should beperformed at least two hours post treatment in order toensure that only endogenous levels of BNP are detected. 10/24/2024 2:30 PM EST 10/24/2024 2:33 PM EST us Generic External Data Provider LAB BLOOD ORDERAB LES Final Result [facility] [address] [place] [phone] * (ABNORMAL) Comprehensive Metabolic Panel (10/24/2024 2:30 PM EST) Sodium 141 135 - 145 mmol/L [facility] Potassium 3.8 3.3 - 5.1 mmol/L [facility] Chloride 108 96 - 108 mmol/L [facility] Carbon Dioxide 28 22 - 29 mmol/L [facility] Anion Gap 9(L) 12 - 20 [facility] Urea Nitrogen (BUN) 12 9 - 16 mg/dL [facility] Creatinine, Serum 0.91 0.5 - 1.4 mg/dL [facility] Creatinine Clr Calc Pharmacy 80.7 [facility] Comment:eGFR (calculated fro m the MDRD study equation) and eCrCl(calculated from the Cockcroft-Gault equation) are based ondifferent parameters and may not yield comparable results.If eCrCl result is absurd, please check patient'sheight/weight. Estimated Glomerular Filt Rate >60 [facility] Comment:Chronic Kidney Disea se: Estimated GFR < 60 mL/min/1.90l0Yvebcj Kidney Disease: Estimated GFR < 15 mL/min/1.73m2 Glucose 197(H) 60 - 115 mg/dL [facility] Calcium 8.9 8.4 - 10.2 mg/dL [facility] Bilirubin, Total 0.7 0.0 - 1.0 mg/dL [facility] Aspartate Amino Transferase 22 5 - 37 U/L [facility] Alanine Aminotransferase 12 0 - 40 U/L [facility] Total Protein 6.8 6.5 - 8.0 g/dL [facility] Albumin Level 3.9 3.5 - 5.0 g/dL [facility] Alkaline Phosphatase 88 39 - 117 U/L [facility] 10/24/2024 2:30 PM EST 10/24/2024 2:33 PM EST Generic External Data Provider LAB BLOOD ORDERAB LES Final Result Performing Organization Address [facility] Co de Phone Number [facility] [address] [place] [phone] * Partial Thromboplastin Time, Activated (APTT) (10/24/2024 2:30 PM EST) Partial Thromboplastin Time 35.7 26.0 - 36.8 SEC [facility] Comment:For information rega rding the monitoring of direct thrombininhibitors, please refer to Pharmacy. 10/24/2024 2:30 PM EST 10/24/2024 2:33 PM EST us Generic External Data Provider LAB BLOOD ORDERAB LES Final Result Performing Organization Address [facility] Co de Phone Number [facility] [address] [place] [address] [phone] * Prothrombin Time-INR (10/24/2024 2:30 PM EST) Prothrombin Time 10.9 10.9 - 12.4 SEC [facility] INTERNATIONAL NORM RATIO 0.9 0.9 - 1.1 [facility] Comment:INTERNATIONAL NORMAL IZED RATIO (INR) [...] Provider LAB BLOOD ORDERAB LES Final Result [facility] [address] [place] [phone] [phone] * (ABNORMAL) CBC auto differential (10/24/2024 2:30 PM EST) White Blood Count 5.1 4.8 - 10.8 X10*3/uL [facility] Red Blood Count 4.31(L) 4.60 - 5.80 X10*6/uL [facility] Hemoglobin 13.0(L) 14.0 - 18.0 g/dl [facility] Hematocrit 39.1(L) 42.0 - 52.0 % [facility] Mean Corpuscular Volume 90.7 80.0 - 98.0 fL [facility] Mean Corpuscular Hemoglobin 30.2 27.0 - 33.0 pg [facility] Mean Corpuscular HGB Conc 33.2 31.0 - 36.0 g/dl [facility] Red Cell Distribution Width 12.6 11.0 - 16.0 % [facility] Platelet Count 290 160 - 400 X10*3/uL [facility] Mean Platelet Volume 9.7 9.4 - 12.4 fL [facility] Neutrophils Percent Auto 68.7 45 - 73 % [facility] Imm Gran Pct Auto 0.2 0.0 - 0.4 % [facility] Lymphocytes Percent Auto 19.5(L) 20 - 40 % [facility] Monocytes Percent Auto 9.8 2 - 11 % [facility] Eosinophils Percent Auto 1.2 0 - 4 % [facility] Basophils Percent Auto 0.6 0 - 2 % [facility] NRBC Pct Auto 0.0 0.0 - 0.2 /100WBC [facility] Neutrophils Absolute Auto 3.5 2.0 - 8.3 x10*3/uL [facility] Imm Gran Abs Auto 0.01 0.00 - 0.03 X10*3/uL [facility] Lymphocytes Absolute Auto 1.0(L) 1.2 - 4.9 X10*3/uL [facility] Monocytes Absolute Auto 0.5 0.1 - 1.2 X10*3/uL [facility] Eosinophils Absolute Auto 0.1 0.0 - 0.4 X10*3/uL [facility] Basophils Absolute Auto 0.0 0.0 - 0.2 X10*3/uL [facility] NRBC Abs Auto 0.000 0.0 - 0.012 X10*3/uL [facility] 10/24/2024 2:30 PM EST 10/24/2024 2:33 PM EST us Generic External Data Provider LAB BLOOD ORDERAB LES Final Result Performing Organization Address City/State/[facility] Co de Phone Number [facility] [address] [place] [phone] * XR Chest 1 View (10/24/2024 1:22 PM EST) Anatomical Region Laterality Modality Chest Radiographic Hannah ging 10/24/2024 1:22 PM EST Narrative 10/24/2024 1:45 PM EST ? [facility] ?[address] ?[place] [address] ?XRay Report ? Signed ? Patient: Krista,Bobby ?MR#: [id number] ? : 1965 ?Acct:[id number] ? Age/Sex: 59 / M ?ADM Date: 02/27/25 ? Loc: HO.ED ? Attending Dr: ? Ordering Physician: Alexy Yang ?? Date of Service: 10/24/24 ?? Procedure(s): XR chest 1V ?? Accession Number(s): [id number] ? cc: Alexy Yang; Ashley Frankel MD [...] DD/ 1322 ? TD/TT: 10/24/24 1336 ? Molded Goods Operator: ? Procedure Note Donjacobter, Image - 10/24/2024 [place] [address] XRay Report Signed Patient: Pierce Velasco#: [id number] : 1965Acct:[id number] Age/Sex: 59 / MADM Date: 10/24/24 Loc: HO.ED Attending Dr: Ordering Physician: Alexy Yang Date of Service: 10/24/24 Procedure(s): XR chest 1V Accession Number(s): [id number] cc: Alexy Yang; Ashley Frankel MD EXAMINATION: [...] 10/24/24 1342 DD/ 1322 TD/TT: 10/24/24 1336 Molded Goods Operator: [facility] External Provider IMG XR PROCEDURES Final Result documented in this encounter Visit Diagnoses Not on filedocumented in this encounter Additional Health Concerns Assessment Noted Time PHQ-9 Depression Total Score: 0 07/17/20 10:33 AM EST documented as of this encounter Care Teams Plant And Machinery Valuer Relationship Specialty Start Date End Date Ashley Frankel MD [address] [place] [address] PCP - General Family Medicine 08/28/18November [address] [place] [address] Gastroenterology 07/17/24 Kishore Dorsey MD [address] [facility] [address] [place] [address] Urology 07/17/24 Raheel Gee [address] [place], [place] [address] Pulmonary Disease 07/17/24 Riya Fulton [address] [place] [address] Cardiology 07/17/24 Sergio Hackett [address] [place] [address] Orthopaedic Surgery 07/17/24 Dominga Silva, Mehrdad [address] [place] [address] Pharmacist Internal Medicine 07/22/24 [facility] 10/10/24 documented as of this encounter
--- OUTSIDE RECORDS SUMMARY | 2024-10-31 09:36 | XMS_ITS | Encounter Summary ---
Author Organization [employer] Address [address] [place] [address] 7t [place] [address] Care Team Providers Care Blanket Binder Name Role Phone Ashley Frankel MD Primary Care Provider [phone]- [phone] Viktor November Unavailable Kishore Dorsey MD Unavailable Raheel Gee Unavailable [phone] Riya Fulton Unavailable Sergio Hackett Unavailable Unavailable Dominga Silva PharmD Unavailable Reason for Visit * Reason Onset Date Comments Appointment Request 08/05/2024 Encounter Details Date Type Department Care Team (Late st Contact Info) Description 08/05/2024 Telephone [facility] [address] [place] [address] Ashley Frankel MD [address] [place] [address] Appointment Request Social History Tobacco [...] the past 12 months, has t he [employer], gas, oil or water [employer] threatened to shut off services in your [...] 11/01/2024 9:00 AM EST Medication Management [facility] [address] [place] [address] Dominga Silva, PharmD [address] [place] [address] 12/09/2024 8:00 AM EDT Office Visit [facility] [address] [place] [address] Jackie Peacock 01/23/2025 9:45 AM EDT Office Visit [facility] [address] [place] [address]21 Ashley Frankel MD [address] [place] [address] documented as of this encounter Visit Diagnoses Not on filedocumented in this encounter Additional Health Concerns Assessment Noted Time PHQ-9 Depression Total Score: 0 07/17/20 24 10:33 AM EST documented as of this encounter Care Teams Blanket Binder Relationship Specialty Start Date End Date Ashley Frankel MD [address] [place] [address] PCP - General Family Medicine 08/28/18November [address] 3rd [place] [address] Gastroenterology 07/17/24 Kishore Dorsey MD [address] [place] [address] Urology 07/17/24 Raheel Gee 5 [place], [place] 1040 Pulmonary Disease 07/17/24 Riya Fulton 11 [facility] [address]rd [place] [address] Cardiology 07/17/24 Sergio Hackett [address] [place] [address] Orthopaedic Surgery 07/17/24 Dominga Silva, Mehrdad [address] [place] [address] Pharmacist Internal Medicine 07/22/24 [facility] 10/10/24 documented as of this encounter
--- OUTSIDE RECORDS SUMMARY | 2024-10-31 09:36 | XMS_ITS | Encounter Summary ---
Author Organization [employer] Address 75 [facility] 7t [place] [address] Care Team Providers Care Mercury Purifier Name Role Phone Ashley Frankel MD Primary Care Provider [phone] Hoang, November Unavailable Kishore Dorsey MD Unavailable Raheel Gee Unavailable [phone] Riya Fulton Unavailable Sergio Hackett Unavailable Unavailable Dominga Silva PharmD Unavailable Reason for Visit * Reason Comments Med Refill Encounter Details Date Type Department Care Team (Late st Contact Info) Description 07/24/[address] [facility] [address] [place] [address] [facility] [address] [place], [place] [phone] Prostatitis, acute Social History Tobacco Use Types [...] AM EST Medication Management [facility] [address] [place] [address] Dominga Silva, PharmD [address] [place] [address] 12/09/2024 8:00 AM EDT Office Visit [facility] [address] [place] [address] Jackie Peacock 01/23/2025 9:45 AM EDT Office Visit [facility] [address] [place] [address] Ashley Frankel MD [address] [place] [address] documented as of this encounter Visit Diagnoses Diagnosis Prostatitis, acute Acute prostatitis documented in this encounter Care Teams Mercury Purifier Relationship Specialty Start Date End Date Ashley Frankel MD [address] [place] [address] PCP - General Family Medicine 08/28/[address] 3rd [place] [address] Gastroenterology 07/17/24 Kishore Dorsey MD [address] [place] [address] Urology 07/17/24 Raheel Gee 5 [place], [place] 1040 Pulmonary Disease 07/17/24 Riya Fulton [address] 3rd [place] [address] Cardiology 07/17/24 S[facility] Hackett [address] [facility] [address] [place] [address] Orthopaedic Surgery 07/17/24 Dominga Silva, AnanthD [address] [place] [address] Pharmacist Internal Medicine 07/22/24 [facility] 10/10/24 documented as of this encounter"
--- OUTSIDE RECORDS SUMMARY | 2024-10-31 09:36 | XMS_ITS | Encounter Summary ---
Author Organization [employer] Address 75 [facility] 7t [place] [address] Care Team Providers Care Bonus Clerk Name Role Phone Ashley Frankel MD Primary Care Provider [phone]- [phone] Viktor November Unavailable Kishore Dorsey MD Unavailable [phone] Raheel Gee Unavailable [phone] Riya Fulton Unavailable Sergio Hackett Unavailable Unavailable Dominga SilvaD Unavailable Reason for Visit * Reason Comments Back Pain Encounter Details Date Type Department Care Team (Late st Contact Info) Description 10/26/2024 9:20 AM EST Office Visit [facility] [address] [place] [address] [phone] Bryan Coleman MD [address] [place], [place] [phone] Acute right-sided low back pain with bilateral [...] 59 y.o. male who presents to Monday [facility] due to right lower back pain and [...] daily prn constipation Patient presents to Monday [facility] due to right lower back pain and [...] Description 11/01/2024 9:00 AM EST Medication Management [facility] [address] [place] [address] Dominga Silva PharmD [address] [place] [address] 12/09/2024 8:00 AM EDT Office Visit [facility] [address] [place] [address] Jackie Peacock 01/23/2025 9:45 AM EDT Office Visit [facility] [address] [place] [address] Ashley Frankel MD [address] [place] [address] Scheduled Orders Name Type Priority Associated Diagnoses [...] documented as of this encounter Care Teams Bonus Clerk Relationship Specialty Start Date End Date Ashley Frankel MD [address] [place] [address] PCP - General Family Medicine 08/28/18November [address] [address] Gastroenterology 07/17/24 Kishore Dorsey MD 10 [facility] [address] [place] [address] Urology 07/17/24 Raheel Gee 5 [place], [place] 1040 Pulmonary Disease 07/17/24 Riya Fulton [address] [address] Cardiology 07/17/24 Sergio Hackett [address] [place] [address] Orthopaedic Surgery 07/17/24 Dominga Silva PharmD [address] [place] [address] Pharmacist Internal Medicine 07/22/24 [facility] 10/10/24 documented as of this encounter
--- OUTSIDE RECORDS SUMMARY | 2024-10-31 09:36 | XMS_ITS | Encounter Summary ---
Author Organization [employer] Address [address] [facility] 7t [place] [address] Care Team Providers Care Tank Builder Helper Name Role Phone Ashley Frankel MD Primary Care Provider [phone]- [phone] Hoang, November Unavailable Kishore Dorsey MD Unavailable Raheel Gee Unavailable [phone] Riya Fulton Unavailable Sergio Hackett Unavailable Unavailable Dominga Silva PharmD Unavailable Encounter Details Date Type Department Care Team (Late st Contact Info) Description 07/18/2023 Telephone [facility] [address] [place], [place] [phone] Ashley Frankel MD [address] [place], [place] [phone] Social History Tobacco Use Types Packs/Day Years [...] Bia Rose - 08/10/2023 1:42 PM EST Employer Relations Representative called pt to request verification of insurance/Medicare [...] Medication Management [facility] [address] [place] [address] Dominga Silva, PharmD [address] [place] [address] 12/09/2024 8:00 AM EDT Office Visit [facility] [address] [place] [address] Jackie Peacock 01/23/2025 9:45 AM EDT Office Visit [facility] [address] [place] [address] Ashley Frankel MD [address] [place] [address] documented as of this encounter Visit Diagnoses Not on filedocumented in this encounter Care Teams Tank Builder Helper Relationship Specialty Start Date End Date Ashley Frankel MD [address] [place] [address] PCP - General Family Medicine 08/28/18 Viktor November [address] [place] [address] Gastroenterology 07/17/24 Kishore Dorsey MD [address] [place] [address] Urology 07/17/24 Raheel Gee 5 [place], [place] 1040 Pulmonary Disease 07/17/24 Riya Fulton 11 [facility] 3rd [place] [address] Cardiology 07/17/24 Sergio Hackett [address] [facility] [address] [place] [address] Orthopaedic Surgery 07/17/24 Dominga Silva PharmD [address] [place] [address] Pharmacist Internal Medicine 07/22/24 [facility] 10/10/24 documented as of this encounter
--- OUTSIDE RECORDS SUMMARY | 2024-10-31 09:36 | XMS_ITS | Encounter Summary ---
Author Organization [employer] Address [address] [place] [address] 7t [place] [address] Care Team Providers Care Boot And Shoe Repairman Name Role Phone Ashley Frankel MD Primary Care Provider [phone] Viktor November Unavailable Kishore Dorsey MD Unavailable [phone] Raheel Gee Unavailable [phone] Riya Fulton Unavailable Sergio Hackett Unavailable Unavailable Dominga Silva PharmD Unavailable Reason for Visit * Reason Onset Date Comments Nurse Triage 10/07/2024 Encounter Details Date Type Department Care Team (Late st Contact Info) Description 10/07/2024 Telephone [facility] [address] [place] [address] Ashley Frankel MD [address] [place], [place] [phone] Nurse Triage Social History Tobacco Use Types [...] the past 12 months, has t he [employer], gas, oil or water [employer] threatened to shut off services in your [...] program as needed. [facility]t. Reviewed [...] caller accepted this outcome. Contact pt at [phone] documented in this encounter Plan of Treatment Upcoming Encounters Date Type Department Care Team (Late st Contact Info) Description 11/01/2024 9:00 AM EST Medication Management [facility] [address] [place] [address] Dominga Silva, PharmD [address] [place] [address] 12/09/2024 8:00 AM EDT Office Visit [facility] [address] [place] [address] Jackie Peacock 01/23/2025 9:45 AM EDT Office Visit [facility] [address] [place] [address] Ashley Frankel MD [address] [place] [address] documented as of this encounter Visit Diagnoses Not on filedocumented in this encounter Additional Health Concerns Assessment Noted Time PHQ-9 Depression Total Score: 0 07/17/20 24 10:33 AM EST documented as of this encounter Care Teams Boot And Shoe Repairman Relationship Specialty Start Date End Date Ashley Frankel MD [address] [place] [address] PCP - General Family Medicine 08/28/18 Sonya Hoang [address] 3rd [place] [address] Gastroenterology 07/17/24 Kishore Dorsey MD [address] [place] [address] Urology 07/17/24 Raheel Gee 5 [place] 10[address] Pulmonary Disease 07/17/24 Riya Fulton [address] [place] [address] Cardiology 07/17/24 Sergio Hackett [facility] [place] [address]nd [place] [address] Orthopaedic Surgery 07/17/24 Dominga Silva, Mehrdad [address] [place] [address] Pharmacist Internal Medicine 07/22/24 documented as of this encounter
--- OUTSIDE RECORDS SUMMARY | 2024-10-31 09:36 | XMS_ITS | Encounter Summary ---
Author Organization [employer] Address [address] [place] [address] Care Team Providers Care Graphic Design Professor Name Role Phone Ashley Frankel MD Primary Care Provider [phone] Viktor November Unavailable Kishore Dorsey MD Unavailable Raheel Gee Unavailable [phone] Riya Fulton Unavailable Sergio Hackett Unavailable Unavailable Dominga Silva PharmD Unavailable Reason for Visit * Reason Comments Difficulty Urinating Encounter Details Date Type Department Care Team (Late st Contact Info) Description 10/10/2024 1:40 PM EST Office Visit [facility] [address] [place] [address] [phone] Ashley Frankel MD [address] [place], [place] [phone] Dysuria (Primary Dx); Dyslipidemia; Gastroesophageal reflux disease, [...] right ureteroscopy laser lithotripsy stent insertion, 6 [place] by [address] Mayda Rodriguez. [...] right ureteroscopy laser lithotripsy stent insertion, 6 [place] by [address] Mayda Rodriguez. [...] right ureteroscopy laser lithotripsy stent insertion, 6 [place] by [address] Mayda Rodriguez. [...] Description 11/01/2024 9:00 AM EST Medication Management [facility] [address] [place] [phone] Dominga Silva PharmD [address] [place] [phone] 12/09/2024 8:00 AM EDT Office Visit [facility] [address] [place] [phone] Jackie Peacock 01/23/2025 9:45 AM EDT Office Visit [facility] [address] [place] [phone] Ashley Frankel MD [address] [place] [phone] documented as of this encounter Visit Diagnoses Diagnosis Dysuria- Primary Dyslipidemia Other and unspecified hyperlipidemia Gastroesophageal reflux disease, unspecified whether esophagitis present Benign prostatic hyperplasia with urinary obstruction Anxiety Anxiety state, unspecified documented in this encounter Additional Health Concerns Assessment Noted Time PHQ-9 Depression Total Score: 0 07/17/20 10:33 AM EST documented as of this encounter Care Teams Graphic Design Professor Relationship Specialty Start Date End Date Ashley Frankel MD [address] [place] [phone] PCP - General Family Medicine 08/28/18 Sonya Hoang [address] [place] [address] Gastroenterology 07/17/24 Kishore Dorsey MD [address] [place] [address] Urology 07/17/24 Raheel Gee [address] [place], [place] [address] Pulmonary Disease 07/17/24 Riya Fulton [address] [facility] 3rd [place] [address] Cardiology 07/17/24 Sergio Hackett [address] [place] [address] Orthopaedic Surgery 07/17/24 Dominga Silva PharmD [address] [place] [address] Pharmacist Internal Medicine 07/22/24 De. Dalal Psychiatry 10/10/24 documented as of this encounter
--- OUTSIDE RECORDS SUMMARY | 2024-10-31 09:36 | XMS_ITS | Clinical Summary ---
Author Organization [facility] Address [address] [place] [address] 7 [place] [address] Care Team Providers Care Net Developer Consultant Name Role Phone Ashley Frankel MD Primary Care Provider [phone] Hoang November Unavailable Kishore Dorsey MD Unavailable [phone] Raheel Gee Unavailable [phone] Riya Fulton Unavailable Sergio Hackett Unavailable Unavailable Dominga Silva PharmD Unavailable [phone] Allergies Active Allergy Reactions Criticality Noted Date [...] complication, without long-term current use of insulin (CMS/[facility]) 1 each by Other route 2 times [...] t be different from the original. [facility] Solar Project Manager: Kamila, member services number [phone], provider services line, , option 4 Childcare Administrator Agency: refused services Problem Noted Date Diagnosed [...] Removal 2021. New found mass on left denominational. - Referred to Plastic Surgery 07/16/24 Assessment & Plan (07/17/2024 10:23 AM EST): Removal 2021. New found mass on left denominational. - Referred to Plastic Surgery 07/16/24 Cardiac [...] after 07/17/25 -eye care facilitated by [facility] -dental home is [facility] -health care proxy paperwork given 11/13/2023, given again 07/17/24 Assessment & Plan (07/17/2024 10:32 AM EST): -next physical exam due after 07/17/25 -eye care facilitated by [facility] -dental home is [facility] -health care proxy paperwork given 11/13/2023, given again 07/17/24 Assessment & Plan (11/13/2023 10:07 AM EDT): -next physical exam due after 04/27/2024 -eye care facilitated by [facility] -dental home is [facility] -health care proxy paperwork given 11/13/2023 Assessment & Plan (04/27/2023 9:45 AM EDT): -next physical exam due after 04/27/2024. -eye care facilitated by [facility], last visit 01/16/2023 -dental home is [facility] Class 1 obesity 02/24/2023 Erectile dysfunction [...] the strong evidence that these meds prevent DE/CVA. Continue atorvastatin 80qhs. Encouraged to take. Anxiety [...] CT May 2021 -CT 01/24/24 ordered by humid system operator Dr. Raheel Gee MD, redemonstration of innumerable [...] getting tx for his neck. -Followed by [facility]. -Saw Dr. [...] getting tx for his neck. -Followed by [facility]. -Saw Dr. Evin Bhat at [facility] 02/2021 -referred to orthopedic on 11/13/2023 - [...] getting tx for his neck. -Followed by [facility]. -Saw Dr. Evin Bhat at [facility] 02/2021 -referred to orthopedic on 11/13/2023 Assessment [...] getting tx for his neck. Followed by [facility]. Saw Dr. Evin Bhat at [facility] 02/2021 Assessment & Plan (04/27/2023 9:22 AM [...] getting tx for his neck. Followed by [facility]. Saw Dr. Evin Bhat at [facility] 02/2021 Assessment & Plan (11/07/2022 11:31 AM [...] getting tx for his neck. Followed by [facility]. Saw Dr. Evin Bhat at [facility] 02/2021 Mild intermittent asthma 10/14/2021 Overview (08/21/2024): -Followed by Dr. Raheel Gee at [facility]. Note from 08/19/24 reviewed -Well [...] right ureteroscopy laser lithotripsy stent insertion, 6 Upper Sorbian by [address] Mayda Rordiguez. Prescribed dilaudid, senna and phenazopyridine. Seen in [...] Type Department Care Team Description 10/28/2024 Telephone [facility] [address] [place] [address] Ashley Frankel MD 10/26/2024 9:20 AM EST Office Visit [facility] [address], [place] [phone] Bryan Coleman MD Acute right-sided low back pain with bilateral sciatica (Primary Dx); Nephrolithiasis; Constipation, unspecified constipation type 10/26/2024 Orders Only [facility] [address], [place] [phone] Bryan Coleman MD 10/24/2024 9:15 AM EST Office Visit [address] [address] Ashley Frankel MD Primary hypertension (Primary Dx); Weight loss, non-intentional; 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 External Provider, [facility] 10/24/2024 Travel 10/17/[address] [address] Ashley Frankel MD 10/17/[address] [address] Ashley Frankel MD chartprep 10/10/2024 1:40 PM EST [facility] [address] [address] Ashley Frankel MD Dysuria (Primary Dx); Dyslipidemia; Gastroesophageal reflux disease, unspecified whether esophagitis present; Benign prostatic hyperplasia with urinary obstruction; Anxiety 10/10/2024 Telephone [facility] [address] [address] Ashley Frankel MD 10/10/2024 Orders Only GENERIC EXTERNAL DATA DEPARTMENT Provider, Generic External Data 10/07/[address] [address] Ashley Franekl MD Nurse Triage 09/30/[address] [address] Aurora Alexandre, RN Results 09/30/2024 Orders Only [address] [address] Ashley Frankel MD Renal calculi (Primary Dx); Hydronephrosis, unspecified hydronephrosis type 09/28/2024 11:00 AM EST [facility] [address] [address] Les Hya MD Constipation, unspecified constipation type (Primary Dx); Primary hypertension 09/28/2024 Travel 09/27/2024 11:00 AM EST Office Visit [facility] [address] [place] [phone] Malika Mac MD Other microscopic hematuria (Primary Dx); Acute bilateral low back pain without sciatica 09/27/[address] [address] Ashley Frankel MD Nurse Triage 09/18/[address] [address] Nisha Smith MD Allergic rhinitis, unspecified seasonality, unspecified trigger 09/17/[address] [address] Ashley Frankel MD 09/09/2024 Orders Only [facility] External Provider, [facility] Renal calculi (Primary Dx) 08/26/[address] [address] Ashley Frankel MD 08/14/2024 Orders Only GENERIC EXTERNAL DATA DEPARTMENT Provider, Generic External Data Abnormal CXR (Primary Dx) 08/13/2024 Orders Only GENERIC EXTERNAL DATA DEPARTMENT Provider, Generic External Data 08/12/2024 Travel 08/09/2024 8:30 AM EST Office Visit [facility] ADULT DENTAL [address] [place] [phone] Cook-Kimball, Naida, DDS Teeth missing (Primary Dx) 08/05/[address] [address] Kala Charles, NEETU September Recall 08/05/[address] [address] Ashley Frankel MD Appointment Request from Last [...] Medication Management [facility] [address] [place] [phone] Dominga Silva, PharmD [address] [place] [address] 12/09/2024 8:00 AM EDT Office Visit [facility] [address] [place] [address] Jackie Peacock 01/23/2025 9:45 AM EDT Office Visit [facility] [address] [place] [address] Ashley Frankel MD [address] [place] [address] Health Maintenance Due Date Last Done Comments [...] EST 10/26/2024 2:18 PM EST Comment:UACC Narrative [facility] - 10/28/2024 8:45 AM EST Urine Culture No growth. Specimen Source: Urine clean catch Bryan Coleman MD LAB MICROBIOLOGY - GENERAL ORDER MAN Final Result [facility] [address] [place] [phone] * High Sensitivity Troponin I (10/24/2024 4:58 PM EST) Only the most recent of5 resultswithin the time period is included. TROPONIN I HIGH SENSITIVITY 3.4 <3.5 - 35.0 ng/L [facility] Comment:The Schmidt high sens itivity Troponin-I results should beused in conjunction with other diagnostic information suchas ECG, clinical observations and information, and patientsymptoms to aid in the diagnosis of DE. 10/24/2024 4:58 PM EST 10/24/2024 5:02 PM EST us Generic External Data Provider LAB BLOOD ORDERAB LES Final Result [facility] [address] [place] [phone] * (ABNORMAL) CBC auto differential (10/24/2024 2:30 PM EST) Only the most recent of5 resultswithin the time period is included. White Blood Count 5.1 4.8 - 10.8 X10*3/uL [facility] Red Blood Count 4.31(L) 4.60 - 5.80 X10*6/uL [facility] Hemoglobin 13.0(L) 14.0 - 18.0 g/dl [facility] Hematocrit 39.1(L) 42.0 - 52.0 % [facility] Mean Corpuscular Volume 90.7 80.0 - 98.0 fL [facility] Mean Corpuscular Hemoglobin 30.2 27.0 - 33.0 pg [facility] Mean Corpuscular HGB Conc 33.2 31.0 - 36.0 g/dl [facility] Red Cell Distribution Width 12.6 11.0 - 16.0 % [facility] Platelet Count 290 160 - 400 X10*3/uL [facility] Mean Platelet Volume 9.7 9.4 - 12.4 fL [facility] Neutrophils Percent Auto 68.7 45 - 73 % [facility] Imm Gran Pct Auto 0.2 0.0 - 0.4 % [facility] Lymphocytes Percent Auto 19.5(L) 20 - 40 % [facility] Monocytes Percent Auto 9.8 2 - 11 % [facility] Eosinophils Percent Auto 1.2 0 - 4 % [facility] Basophils Percent Auto 0.6 0 - 2 % [facility] NRBC Pct Auto 0.0 0.0 - 0.2 /100WBC [facility] Neutrophils Absolute Auto 3.5 2.0 - 8.3 x10*3/uL [facility] Imm Gran Abs Auto 0.01 0.00 - 0.03 X10*3/uL [facility] Lymphocytes Absolute Auto 1.0(L) 1.2 - 4.9 X10*3/uL [facility] Monocytes Absolute Auto 0.5 0.1 - 1.2 X10*3/uL [facility] Eosinophils Absolute Auto 0.1 0.0 - 0.4 X10*3/uL [facility] Basophils Absolute Auto 0.0 0.0 - 0.2 X10*3/uL [facility] NRBC Abs Auto 0.000 0.0 - 0.012 X10*3/uL [facility] 10/24/2024 2:30 PM EST 10/24/2024 2:33 PM EST us Generic External Data Provider LAB BLOOD ORDERAB LES Final Result Performing Organization Address City/[facility]/ZIP Co de Phone Number [facility] [address] [place] [phone] * Partial Thromboplastin Time, Activated (APTT) (10/24/2024 2:30 PM EST) Partial Thromboplastin Time 35.7 26.0 - 36.8 SEC [facility] Comment:For information rega rding the monitoring of direct thrombininhibitors, please refer to Pharmacy. 10/24/2024 2:30 PM EST 10/24/2024 2:33 PM EST Generic External Data Provider LAB BLOOD ORDERAB LES Final Result Performing Organization Address [facility]/ZIP Co de Phone Number [facility] [address] [place] [address] [phone] * Prothrombin Time-INR (10/24/2024 2:30 PM EST) Only the most recent of2 resultswithin the time period is included. Pathologist [facility] Prothrombin Time 10.9 10.9 - 12.4 SEC [facility] INTERNATIONAL NORM RATIO 0.9 0.9 - 1.1 [facility] Comment:INTERNATIONAL NORMAL IZED RATIO (INR) [...] ORDERAB LES Final Result Performing Organization Address [facility] Co de Phone Number [facility] [address] [place] [phone] * B Type Natriuretic Peptide (BNP) (10/24/2024 2:30 PM EST) [facility] B Type Natriuretic Peptide 32 <100 pg/mL [facility] Comment:For those patients w ho are being treated with Natrecor(nesiritide, recombinant BNP), BNP testing should beperformed at least two hours post treatment in order toensure that only endogenous levels of BNP are detected. 10/24/2024 2:30 PM EST 10/24/2024 2:33 PM EST [employer] External Data Provider LAB BLOOD ORDERAB LES Final Result Performing Organization Address [facility] Co de Phone Number [facility] [address] [place] [phone] * (ABNORMAL) Comprehensive Metabolic Panel (10/24/2024 2:30 PM EST) Only the most recent of3 resultswithin the time period is included. [facility] Sodium 141 135 - 145 mmol/L [facility] Potassium 3.8 3.3 - 5.1 mmol/L [facility] Chloride 108 96 - 108 mmol/L [facility] Carbon Dioxide 28 22 - 29 mmol/L [facility] Anion Gap 9(L) 12 - 20 [facility] Urea Nitrogen (BUN) 12 9 - 16 mg/dL [facility] Creatinine, Serum 0.91 0.5 - 1.4 mg/dL [facility] Creatinine Clr Calc Pharmacy 80.7 [facility] Comment:eGFR (calculated fro m the MDRD study equation) and eCrCl(calculated from the Cockcroft-Gault equation) are based ondifferent parameters and may not yield comparable results.If eCrCl result is absurd, please check patient'sheight/weight. Estimated Glomerular Filt Rate >60 [facility] Comment:Chronic Kidney Disea se: Estimated GFR < 60 mL/min/1.28s5Aqbbtv Kidney Disease: Estimated GFR < 15 mL/min/1.73m2 Glucose 197(H) 60 - 115 mg/dL [facility] Calcium 8.9 8.4 - 10.2 mg/dL [facility] Bilirubin, Total 0.7 0.0 - 1.0 mg/dL [facility] Aspartate Amino Transferase 22 5 - 37 U/L [facility] Alanine Aminotransferase 12 0 - 40 U/L [facility] Total Protein 6.8 6.5 - 8.0 g/dL [facility] Albumin Level 3.9 3.5 - 5.0 g/dL [facility] Alkaline Phosphatase 88 39 - 117 U/L [facility] 10/24/2024 2:30 PM EST 10/24/2024 2:33 PM EST us Generic External Data Provider LAB BLOOD ORDERAB LES Final Result [facility] [address] [place] [phone] * XR Chest 1 View (10/24/2024 1:22 PM EST) Only the most recent of2 resultswithin the time period is included. Anatomical Region Laterality Modality Chest Radiographic Hannah ging 10/24/2024 1:22 PM EST Narrative 10/24/2024 1:45 PM EST ? [facility] ?[address] ?[place] [address] ?XRay Report ? Signed ? Patient: Krista,Bobby ?MR#: [id number] ? : 1965 ?Acct:[id number] ? Age/Sex: 59 / M ?ADM Date: 10/24/24 ? Loc: HO.ED ? Attending Dr: ? Ordering Physician: Alexy Yang ?? Date of Service: 10/24/24 ?? Procedure(s): XR chest 1V ?? Accession Number(s): [id number] ? cc: Alexy Yang; Ashley Frankel MD [...] DD/ 1322 ? TD/TT: 10/24/24 1336 ? Tank Car Repairer: ? Procedure Note Cesar Justice - 10/24/[address] [address] XRay Report Signed Patient: Bobby Velasco#: [id number] : 1965Acct:[id number] Age/Sex: 59 / MADM Date: 10/24/24 Loc: HO.ED Attending Dr: Ordering Physician: Alexy Yang Date of Service: 10/24/24 Procedure(s): XR chest 1V Accession Number(s): [id number] cc: Alexy Yang; Ashley Frankel MD EXAMINATION: [...] 10/24/24 1342 DD/ 1322 TD/TT: 10/24/24 1336 Tank Car Repairer: [facility] External Provider IMG XR PROCEDURES Final Result * Vitamin D, 25-Hydroxy, Total, Immunoassay (10/24/2024 9:22 AM EST) Vitamin D 25-OH Total 39.3 >30 ng/mL [facility] Comment:Health Based Referen ce Values*< 20 ng/mL Fdjyqzino54-49 ng/mL Insufficient> 30 ng/mL Sufficient*Colleen GILL. N [...] BLOOD ORDERABLES Final Result Performing Organization Address [facility]/ZIP Co de Phone Number [facility] [address] [place] [phone] * TSH W/Reflex to FT4 (10/24/2024 9:22 AM EST) TSH reflex Free T4 1.31 0.32 - 4.0 uIU/mL [facility] Blood Venous blood specimen / Unknown 10/24/2024 9:22 AM EST 10/24/2024 11:48 AM EST Ashley Frankel MD LAB BLOOD ORDERABLES Final Result Performing Organization Address [facility]/RUST de Phone Number [facility] [address] [place] [phone] * HIV-1/2 Antigen and Antibodies, Fourth Generation, with Reflexes (10/24/2024 9:22 AM EST) HIV AB/AG Nonreactive Nonreactive [facility] Comment:HIV-1 p24 Ag and/or HIV-1/HIV-2 Ab not detected.A test result that is nonreactive does not exclude thepossibility of exposure to or infection with HIV-1 and/orHIV-2. Nonreactive results in this assay for individualswith prior exposure to HIV-1 and/or HIV-2 may be due toantigen and antibody levels that are below the limit ofdetection of this assay.The [employer] HIV Ag/Ab Combo assay result andsupplemental assay results should be interpreted inconjunction with the patient's clinical presentation,history and other laboratory results. If the results areinconsistent with clinical evidence, additional testing issuggested to confirm the result. Blood Venous blood specimen / Unknown 10/24/2024 9:22 AM EST 10/24/2024 11:48 AM EST Ashley Frankel MD LAB BLOOD ORDERABLES Final Result Performing Organization Address [facility] Co de Phone Number [facility] [address] [place] [phone] * Lactate Dehydrogenase (LD) (10/24/2024 9:22 AM EST) Lactate Dehydrogenase 248 118 - 273 U/L [facility] Blood Venous blood specimen / Unknown 10/24/2024 9:22 AM EST 10/24/2024 11:48 AM EST Ashley Frankel MD LAB BLOOD ORDERABLES Final Result Performing Organization Address [facility] Phone Number [facility] [address] [place] [phone] * Lipase (10/10/2024 12:45 AM EST) Only the most recent of4 resultswithin the time period is included. Lipase 36 8 - 78 U/L [facility] 10/10/2024 12:4 5 AM EST 10/10/2024 12:47 AM EST Generic External Data Provider LAB BLOOD ORDERAB LES Final Result Performing Organization Address [facility]UST de Phone Number [facility] [address] [place] [phone] * FL Guidance in OR (10/01/2024 4:15 PM EST) Anatomical Region Laterality Modality X-Ray Angiograph y 10/01/2024 4:15 PM EST Narrative 10/02/2024 10:09 AM EST ? [facility] [facility] ?[address] ?[place] [address] ? Fluoroscopy Report ? Signed ? Patient: Krista,Bobby ?MR#: [id number] ? : 1965 ?Acct:[id number] ? Age/Sex: 59 / M ?ADM Date: 09/30/24 ? Loc: HO.S3 ?344-1 ? Attending Dr: Parveen Breen MD ? Ordering Physician: Mayda Rodriguez MD ?? Date of Service: 10/01/24 ?? Procedure(s): FL guidance in OR ?? Accession Number(s): [id number] ? cc: Mayda Rodriguez MD; Ashley Frankel [...] DD/ 1615 ? TD/TT: 10/01/24 1710 ? Tank Car Repairer: ? Procedure Note Cesar Justice - 10/02/[address] [address] Fluoroscopy Report Signed Patient: Pierce Velasco#: [id number] : 1965Acct:[id number] Age/Sex: 59 / MADM Date: 09/30/24 Loc: HO.S3 344-[address]: Parveen Breen MD Ordering Physician: Mayda Rodriguez MD Date of Service: 10/01/24 Procedure(s): FL guidance in OR Accession Number(s): [id number] cc: Mayda Rodriguez MD; Ashley Frankel MD [...] Patel MD 10/02/2024 10:06 AM EST Workstation: [id number] Dictated By: Harrison Patel MD Signed By: <Electronically signed by Harrison Patel MD in OV> 10/02/24 1006 DD/ 1615 TD/TT: 10/01/24 1710 Tank Car Repairer: [facility] External Provider IMG IR PROCEDURES Edited Result - Final * (ABNORMAL) Urinalysis, Complete, with Reflex to Culture (09/30/2024 4:26 PM EST) Only the most recent of2 resultswithin the time period is included. Color Urine Yellow [facility] Appearance Urine Clear [facility] PH 5.5 5.0 - 9.0 [facility] Glucose Urine UA Negative Negative mg/dL [facility] Urine Blood Negative Negative [facility] Specific Hominy - Urine <=1.005 1.005 - 1.025 [facility] Urine Protein Negative Neg-Trace mg/dL [facility] Urine Ketones Trace Negative mg/dL [facility] Nitrite Urine Negative Negative [facility] Leukocyte Esterase Urine Trace(A) Negative [facility] RBC Urine 0-2 0 - 2 /HPF [facility] Urine WBC 0-5 0 - 5 /HPF [facility] Urine Squamous Epithelial Cell 0-2 0 - 2 /HPF [facility] Urine Bacteria None Seen None Seen [facility] Hyaline Casts, Urine 0-2 0 - 2 /LPF [facility] 09/30/2024 4:26 PM EST 09/30/2024 4:29 PM EST Narrative [facility] - 09/30/2024 4:46 PM EST [id number], Clean Catch Generic External Data Provider LAB URINE ORDERAB LES Final Result Performing Organization Address [facility]/ZIP Co de Phone Number [facility] [address] [place] [phone] * Magnesium (09/30/2024 4:26 PM EST) Only the most recent of3 resultswithin the time period is included. Magnesium 1.9 1.6 - 2.6 mg/dL [facility] 09/30/2024 4:26 PM EST 09/30/2024 4:29 PM EST Generic External Data Provider LAB BLOOD ORDERAB LES Final Result Performing Organization Address City/[facility] Co de Phone Number [facility] [address] [place] [phone] * Hepatic Function Panel (09/30/2024 4:26 PM EST) Only the most recent of3 resultswithin the time period is included. Bilirubin, Total 0.9 0.0 - 1.0 mg/dL [facility] Bilirubin, Direct 0.2 0.0 - 0.5 mg/dL [facility] Aspartate Amino Transferase 25 5 - 37 U/L [facility] Alanine Aminotransferase 12 0 - 40 U/L [facility] Total Protein 7.8 6.5 - 8.0 g/dL [facility] Albumin Level 4.5 3.5 - 5.0 g/dL [facility] Alkaline Phosphatase 94 39 - 117 U/L [facility] 09/30/2024 4:26 PM EST 09/30/2024 4:29 PM EST us Generic External Data Provider LAB BLOOD ORDERAB LES Final Result Performing Organization Address City/[facility]/ZIP Co de Phone Number [facility] [address] [place] [phone] * (ABNORMAL) Basic Metabolic Panel (09/30/2024 4:26 PM EST) Only the most recent of3 resultswithin the time period is included. Sodium 141 135 - 145 mmol/L [facility] Potassium 3.6 3.3 - 5.1 mmol/L [facility] Chloride 108 96 - 108 mmol/L [facility] Carbon Dioxide 25 22 - 29 mmol/L [facility] Anion Gap 12 12 - 20 [facility] Urea Nitrogen (BUN) 14 9 - 16 mg/dL [facility] Creatinine, Serum 0.93 0.5 - 1.4 mg/dL [facility] Creatinine Clr Calc Pharmacy 85.6 [facility] Comment:eGFR (calculated fro m the MDRD study equation) and eCrCl(calculated from the Cockcroft-Gault equation) are based ondifferent parameters and may not yield comparable results.If eCrCl result is absurd, please check patient'sheight/weight. Estimated Glomerular Filt Rate >60 [facility] Comment:Chronic Kidney Disea se: Estimated GFR < 60 mL/min/1.13b6Ovalim Kidney Disease: Estimated GFR < 15 mL/min/1.73m2 Glucose 125(H) 60 - 115 mg/dL [facility] Calcium 9.6 8.4 - 10.2 mg/dL [facility] 09/30/2024 4:26 PM EST 09/30/2024 4:29 PM EST us Generic External Data Provider LAB BLOOD ORDERAB LES Final Result Performing Organization Address City/[facility]/ZIP Co de Phone Number [facility] [address] [place] [phone] * US Retroperitoneal Complete (09/30/2024 1:13 PM EST) Anatomical Region Laterality Modality Ultrasound 09/30/2024 1:13 PM EST Narrative 09/30/2024 1:13 PM EST ? [facility] ?[address] ?[place] [address] ? Ultrasound Report ? Signed ? Patient: Krista,Bobby ?MR#: [id number] ? : 1965 ?Acct:[id number] ? Age/Sex: 59 / M ?ADM Date: 09/30/24 ? Loc: HO.US ? Attending Dr: Malika Mac MD ? Ordering Physician: Malika Mac MD ?? Date of Service: 09/30/24 ?? Procedure(s): US retroperitoneal comp ?? Accession Number(s): [id number] ? cc: Ashley Frankel MD; Malika Mac [...] 09/30/243 ? DD/ ? TD/TT: 09/30/243 ? Tank Car Repairer: ? Procedure Note Reshma, Image - 09/30/[address] [address] Ultrasound Report Signed Patient: Pierce Velasco#: [id number] : 1965Acct:[id number] Age/Sex: 59 / MADM Date: 09/30/24 Loc: HO.US Attending Dr: Malika Mac MD Ordering Physician: Malika Mac MD Date of Service: 09/30/24 Procedure(s): US retroperitoneal comp Accession Number(s): [id number] cc: Ashley Frankel MD; Malika Mac MD [...] 09/30/24 1313 DD/ 1313 TD/TT: 09/30/24 1313 Tank Car Repairer: us Malika Mac MD IMG US PROCEDURES Final Result * SARS-CoV-2 RNA, Influenza A/B, and RSV RNA, Ql NAAT (09/09/2024 11:01 AM EST) Influenza A PCR NEGATIVE Negative [facility] Influenza B PCR NEGATIVE Negative [facility] Resp Syncy Virus RNA Qual PCR NEGATIVE Negative [facility] SARS COV2 PCR NEGATIVE Negative [facility] Comment:All test results mus [...] use by authorized laboratories.Testing performed on the RxResults GeneXpert utilizingreal-time RT-PCR.All SARS CoV2 and positive influenza A/B results arereported to [facility]. 09/09/2024 11:0 1 AM EST 09/09/2024 11:06 AM EST us Generic External Data Provider LAB MICROBIOLOGY - GENERAL ORDERABLES Final Result [facility] [address] [place] [address] [phone] * XR Chest 2 Views (09/09/2024 10:34 AM EST) Anatomical Region Laterality Modality Chest Radiographic Hannah ging 09/09/2024 10:3 4 AM EST Narrative 09/09/2024 11:06 AM EST ? [facility] ?[address] ?[place] [address] ?XRay Report ? Signed ? Patient: Krista,Bobby ?MR#: [id number] ? : 1965 ?Acct:[id number] ? Age/Sex: 59 / M ?ADM Date: 01/13/25 ? Loc: HO.ED ? Attending Dr: ? Ordering Physician: Deandra Reynolds DO ?? Date of Service: 09/09/24 ?? Procedure(s): XR chest 2V ?? Accession Number(s): [id number] ? cc: Ashley Frankel MD; Deandra Reynolds [...] DD/ 1034 ? TD/TT: 09/09/24 1045 ? Tank Car Repairer: ? Procedure Note Donotuseinterpreter, Image - 09/09/2024 [place] [address] XRay Report Signed Patient: Pierce Velasco#: [id number] : 1965Acct:[id number] Age/Sex: 59 / MADM Date: 09/09/24 Loc: .ED Attending Dr: Ordering Physician: Deandra Reynolds DO Date of Service: 09/09/24 Procedure(s): XR chest 2V Accession Number(s): [id number] cc: Ashley Frankel MD; Deandra Reynolds DO [...] 09/09/24 1103 DD/ 1034 TD/TT: 09/09/24 1045 Tank Car Repairer: [facility] External Provider IMG XR PROCEDURES Edited Result - Final * Albumin, Random Urine W/Creatinine (08/13/2024 11:26 AM EST) Creatinine, Urine 73.67 mg/dL [facility] Microalbumin Urine 13.0 mg/L [facility] Microalbum Creatinine Ratio Ur 17.6 <30 ug/mg cr [facility] Comment:Albumin/Creatinine R atio Reference Ranges: Normal: < 30 ug/mg creatinine Microalbuminuria: 30 - 300 ug/mg creatinineClinical Albuminuria: > 300 ug/mg creatinine Urine 08/13/2024 11:2 6 AM EST 08/13/2024 1:00 PM EST Ashley Frankel MD LAB URINE ORDERABLES Final Result Performing Organization Address City/State/[facility] Co de Phone Number [facility] [address] [place] [phone] * Testosterone, Total, males (Adult), [place] (08/13/2024 11:26 AM EST) Testosterone, Total 317 250 - 1100 ng/dL [facility] Comment:For additional infor mation, please refer tohttp://education.[employer].Magzter/faq/KegvlPqmcwtghrvomVIXWJHQMB286(This link is being provided for informational/educational purposes only.)This test was developed and its analytical performancecharacteristics have been determined by [employer] [place], [place]. It hasnot been cleared or approved by the U.S. Food and DrugAdministration. This assay has been validated pursuantto the CLIA regulations and is used for clinicalpurposes.THIS TEST WAS PERFORMED AT:[employer] [id number] [place] [address]ZBHNNEADANIELLE BOLTON MD,PHD 08/13/2024 11:2 6 AM EST 08/13/2024 12:59 PM EST us Generic External Data Provider LAB BLOOD ORDERAB LES Final Result Performing Organization Address [facility]/ZIP Co de Phone Number [facility] [address] [place] [phone] * PSA,Total (08/13/2024 11:26 AM EST) Prostate Specific Antigen 0.69 <0.05 - 4.0 ng/mL [facility] Comment:PSA methodology: Abb sukhwinder Alinity i ChemiluminescentMicroparticle Immunoassay (CMIA) 08/13/2024 11:2 6 AM EST 08/13/2024 12:59 PM EST Generic External Data Provider LAB BLOOD ORDERAB LES Final Result Performing Organization Address [facility] Co de Phone Number [facility] [address] [place] [phone] * (ABNORMAL) Hemoglobin A1c (08/13/2024 11:26 AM EST) Hemoglobin A1c 6.2(H) <6.0 % [facility] Comment:Hemoglobin A1C Refer ence Range Adults: 4.8 - 6.0 % Non diabetic: < 6.0 % Goal: < 7.0 %Additional Action Suggested: > 8.0 %Note: Hemoglobin A1c results are invalid for patients with abnormal amounts of HbF. Blood transfusions may impact the HbA1c concentration in the patient sample. Estimated Average Glucose 131 mg/dL [facility] Comment:eAG = Estimated ave rage glucose which is %A1C expressed asaverage glucose, using the formula of the H0W-NbcwqyoFikclgp Glucose study (ADAG), Diabetes Care, Vol.31,#8,Mar. 2007 Blood Venous blood specimen / Unknown 08/13/2024 11:26 AM EST 08/13/2024 12:59 PM EST us Ashley Frankel MD LAB BLOOD ORDERABLES Final Result Performing Organization Address [facility] Co de Phone Number [facility] [address] [place] [phone] [phone] * (ABNORMAL) Lipid Panel, Standard (08/13/2024 11:26 AM EST) Triglycerides 86 <150 mg/dL [facility] Comment:Desirable Triglyceri de: less than 150 mg/dLBorderline High Triglyceride 150-199 mg/dLHigh Triglyceride: 200-499 mg/dLVery High Triglyceride: greater than or equal to 5OO mg/dL Cholesterol 146 <200 mg/dL [facility] Comment:Desirable Cholestero l: less than 200 mg/dLBorderline High Cholesterol: 200-239 mg/dLHigh Cholesterol: greater than 239 mg/dL LDL Cholesterol Calculated 96 <100 mg/dL [facility] Comment:Desirable LDL: less than 100 mg/dLNear Optimal/Above Optimal LDL: 110- 129 mg/dLBorderline High LDL: 130-159 mg/dLHigh LDL: 160-189 mg/dLVery High LDL: greater than or equal to 190 mg/dL HDL Cholesterol 33(L) >40 mg/dL [facility] Comment:Desirable HDL: great er than 40 mg/dL Note: This HDL assay may give artificially low results in patients with liver disease. Blood Venous blood specimen / Unknown 08/13/2024 11:26 AM EST 08/13/2024 12:59 PM EST Ashley Frankel MD LAB BLOOD ORDERABLES Final Result Performing Organization Address [facility]/ZIP Co de Phone Number [facility] [address] [place] [phone] * Hm Colonoscopy (04/06/2023) Pathologist [facility] Colonoscopy Normal Normal Historical Provider HEALTH MAINTENANCE Final Result * Hepatitis C Antibody with Reflex to HCV, RNA, Quantitative, Real-Time PCR (11/11/2022 8:59 AM EDT) Pathologist [facility] Hepatitis C Antibody NON-REACT KELSY NON-REACT KELSY [facility] Index 0.64 <1.00 [facility] Comment: HCV antibody was non-reactive. There is no laboratory evidence of HCV infection. In most cases, no further action is required. However, if recent HCV exposure is suspected, a test for HCV RNA (test code 21469) is suggested. For additional information please refer to http://education.Vilynx/faq/IPS67h9 (This link is being provided for informational/ educational purposes only.) Blood Venous blood specimen / Unknown 11/11/2022 8:59 AM EDT 11/11/2022 8:59 AM EDT Narrative [facility] - 11/11/2022 9:36 PM EDT FASTING:YES FASTING: YES us Ashley Frankel MD LAB BLOOD ORDERABLES Final Result [facility] [address], [place] [address] [facility] [address] [place] [address] from Last 3 Months or Most Recently Relevant to Health Maintenance Insurance [facility] Care Teams Net Developer Consultant Relationship Specialty Start Date End Date Marlys, MD Ashley [address] [place] [phone] PCP - General Family Medicine 08/28/18November [address] [place] [address] Gastroenterology 07/17/24 Kishore Dorsey MD [address] [place] [address] Urology 07/17/24 Raheel Gee [address] [place], [place] [address] Pulmonary Disease 07/17/24 Riya Fulton [address] [facility] [address] [place] [address] Cardiology 07/17/24 Sergio Hackett [address] [place] [address] Orthopaedic Surgery 07/17/24 Dominga Silva, AnanthD [address] [place] [address] Pharmacist Internal Medicine 07/22/24 De. Dalal Psychiatry 10/10/24
--- OUTSIDE RECORDS SUMMARY | 2024-10-31 09:36 | XMS_ITS | Clinical Summary ---
Author Organization [address] [facility] Address [address] [place] [address] Phone Care Team Providers Care Math And Science Division Chair Name Role Phone Ashley Frankel MD Primary Care Provider [phone] Allergies Active Allergy Reactions Criticality Noted Date [...] AM EST - 10/12/2024 9:39 AM EST [facility] Emergency [address] [place] [address] Smith Quan MD Urinary tract infection with [...] 10:45 AM EDT Consult Orthopedic Surgery - [place] [address] [address] [facility] [address] [place] [phone] Raheel Slater DPM [address] [address] Health Maintenance Due Date Last Done Comments [...] PM EST) WBC 7.7 4.8 - 10.8 /[facility] LAB HEMETOLOGY METHOD 10/12/2024 12:01 AM [facility] RBC 4.60 4.50 - 5.50 M/mcL LAB HEMETOLOGY METHOD 10/12/2024 12:01 AM [facility] Hemoglobin 14.1 13.5 - 17.5 g/dL LAB HEMETOLOGY METHOD 10/12/2024 12:01 AM [facility] Hematocrit 42.7 42.0 - 54.0 % LAB HEMETOLOGY METHOD 10/12/2024 12:01 AM [facility] MCV 92.2 79.0 - 98.0 FL LAB HEMETOLOGY METHOD 10/12/2024 12:01 AM [facility] MCH 30.5 27.0 - 32.0 pcg LAB HEMETOLOGY METHOD 10/12/2024 12:01 AM [facility] MCHC 33.0 32.0 - 37.0 g/dL LAB HEMETOLOGY METHOD 10/12/2024 12:01 AM [facility] RDW 12.8 11.0 - 15.0 % LAB HEMETOLOGY METHOD 10/12/2024 12:01 AM [facility] Platelets 327 130 - 400 K/[facility] LAB HEMETOLOGY METHOD 10/12/2024 12:01 AM [facility] MPV 10.4 7.0 - 11.0 FL LAB HEMETOLOGY METHOD 10/12/2024 12:01 AM [facility] NRBC 0.0 <1.0 % LAB HEMETOLOGY METHOD 10/12/2024 12:01 AM [facility] NRBC Absolute 0.00 <0.10 K/mcL LAB HEMETOLOGY METHOD 10/12/2024 12:01 AM [facility] Neutrophils Relative 66.8 % LAB HEMETOLOGY METHOD 10/12/2024 12:01 AM [facility] Lymphocytes Relative 21.5 % LAB HEMETOLOGY METHOD 10/12/2024 12:01 AM [facility] Monocytes Relative 9.6 % LAB HEMETOLOGY METHOD 10/12/2024 12:01 AM [facility] Eosinophils Relative 1.2 % LAB HEMETOLOGY METHOD 10/12/2024 12:01 AM [facility] Basophils Relative 0.4 % LAB HEMETOLOGY METHOD 10/12/2024 12:01 AM [facility] Immature Granulocytes Relative 0.5 % LAB HEMETOLOGY METHOD 10/12/2024 12:01 AM [facility] Neutrophils Absolute 5.12 1.50 - 7.00 K/mcL LAB HEMETOLOGY METHOD 10/12/2024 12:01 AM [facility] Lymphocytes Absolute 1.65 1.00 - 5.00 K/mcL LAB HEMETOLOGY METHOD 10/12/2024 12:01 AM [facility] Monocytes Absolute 0.74 0.20 - 1.00 K/mcL LAB HEMETOLOGY METHOD 10/12/2024 12:01 AM [facility] Eosinophils Absolute 0.09 0.00 - 0.50 K/mcL LAB HEMETOLOGY METHOD 10/12/2024 12:01 AM [facility] Basophils Absolute 0.03 0.00 - 0.20 K/mcL LAB HEMETOLOGY METHOD 10/12/2024 12:01 AM [facility] Immature Granulocytes Absolute 0.04(H) 0.00 - 0.03 K/mcL LAB HEMETOLOGY METHOD 10/12/2024 12:01 AM [facility] Blood Venous blood specimen / Unknown Venipuncture / Unknown 10/11/2024 11:18 PM EST 10/11/2024 11:44 PM EST us Smith Quan MD LAB BLOOD ORDERABLES Final Result [facility] [address] [place] [address], * (ABNORMAL) Comprehensive metabolic panel (10/11/2024 11:18 PM EST) Sodium 138 133 - 145 mmol/L LAB CHEMISTRY METHOD 10/12/2024 12:38 AM [facility] Potassium 4.3 3.5 - 5.5 mmol/L LAB CHEMISTRY METHOD 10/12/2024 12:38 AM [facility] Chloride 107 96 - 110 mmol/L LAB CHEMISTRY METHOD 10/12/2024 12:38 AM [facility] CO2 30 21 - 32 mmol/L LAB CHEMISTRY METHOD 10/12/2024 12:38 AM [facility] Anion Gap 1(L) 3 - 11 LAB CHEMISTRY METHOD 10/12/2024 12:38 AM [facility] Glucose 126(H) 70 - 100 mg/dL LAB CHEMISTRY METHOD 10/12/2024 12:38 AM [facility] BUN 15 5 - 25 mg/dL LAB CHEMISTRY METHOD 10/12/2024 12:38 AM [facility] Creatinine 1.15 0.70 - 1.30 mg/dL LAB CHEMISTRY METHOD 10/12/2024 12:38 AM [facility] eGFR 73 >=60 mL/min/1. 73m2 LAB CHEMISTRY METHOD 10/12/2024 12:38 AM [facility] Comment:Calculation based on the??Chronic Kidney Disease Epidemiology Collaboration (CKD-EPI) equation refit??without adjustment for race. BUN/Creatinine Ratio 13.0 LAB CHEMISTRY METHOD 10/12/2024 12:38 AM [facility] Calcium 9.8 8.5 - 10.5 mg/dL LAB CHEMISTRY METHOD 10/12/2024 12:38 AM [facility] AST (SGOT) 24 10 - 42 unit/L LAB CHEMISTRY METHOD 10/12/2024 12:38 AM [facility] ALT (SGPT) 22 10 - 60 unit/L LAB CHEMISTRY METHOD 10/12/2024 12:38 AM [facility] Alkaline Phosphatase 100 42 - 121 unit/L LAB CHEMISTRY METHOD 10/12/2024 12:38 AM [facility] Total Protein 6.9 6.0 - 8.0 g/dL LAB CHEMISTRY METHOD 10/12/2024 12:38 AM [facility] Albumin 3.9 3.2 - 5.0 g/dL LAB CHEMISTRY METHOD 10/12/2024 12:38 AM [facility] Total Bilirubin 0.6 0.0 - 1.4 mg/dL LAB CHEMISTRY METHOD 10/12/2024 12:38 AM [facility] Blood Venous blood specimen / Unknown Venipuncture / Unknown 10/11/2024 11:18 PM EST 10/11/2024 11:44 PM EST us Smith Quan MD LAB BLOOD ORDERABLES Final Result [facility] [address] [place] [address], * (ABNORMAL) Urinalysis with reflex microscopic and culture (10/11/2024 10:34 PM EST) Specific [place] Urine 1.014 1.003 - 1.030 LAB URINALYSIS - AUTOMATED METHOD 10/12/2024 6:50 AM [facility] pH, Urine 5.5 5.0 - 8.0 pH LAB URINALYSIS - AUTOMATED METHOD 10/12/2024 6:50 AM [facility] Leukocytes, Urine Moderate(A) Negative LAB URINALYSIS - AUTOMATED METHOD 10/12/2024 6:50 AM [facility] Nitrite, Urine Positive(A) Negative LAB URINALYSIS - AUTOMATED METHOD 10/12/2024 6:50 AM [facility] Protein, Urine 300(A) <=Trace mg/dL LAB URINALYSIS - AUTOMATED METHOD 10/12/2024 6:50 AM [facility] Glucose, Urine Negative Negative mg/dL LAB URINALYSIS - AUTOMATED METHOD 10/12/2024 6:50 AM [facility] Ketones, Urine Negative Negative mg/dL LAB URINALYSIS - AUTOMATED METHOD 10/12/2024 6:50 AM [facility] Urobilinogen, Urine 1.0 0.2 - 1.0 mg/dL LAB URINALYSIS - AUTOMATED METHOD 10/12/2024 6:50 AM [facility] Bilirubin, Urine Small(A) Negative LAB URINALYSIS - AUTOMATED METHOD 10/12/2024 6:50 AM [facility] Blood, Urine Large(A) Negative LAB URINALYSIS - AUTOMATED METHOD 10/12/2024 6:50 AM [facility] RBC, Urine 1,724.4(H) 0 - 4 /HPF LAB URINALYSIS - AUTOMATED METHOD 10/12/2024 6:50 AM [facility] Comment:This is an appended report. These results have been appended to a previously preliminary verified report. WBC, Urine 48.9(H) 0 - 4 /HPF LAB URINALYSIS - AUTOMATED METHOD 10/12/2024 6:50 AM [facility] Comment:This is an appended report. These results have been appended to a previously preliminary verified report. Squamous Epithelial, Urine >100(H) 0 - 60 /LPF LAB URINALYSIS - AUTOMATED METHOD 10/12/2024 6:50 AM [facility] Comment:This is an appended report. These results have been appended to a previously preliminary verified report. Crystals, Urine LT CALCIUM OXALATE /LPF LAB URINALYSIS - AUTOMATED METHOD 10/12/2024 6:50 AM EST [facility] Comment:Corrected result: Pr eviously reported on 10/11/2024 at 2351 EST. Bacteria, Urine Negative Negative /HPF LAB URINALYSIS - AUTOMATED METHOD 10/12/2024 6:50 AM [facility] Comment: Edited result: Previously reported as Negative /HPF on 10/11/2024 at 2351 EST. This is an appended report. ??These results have been appended to a previously final verified report. Hyaline Casts, Urine 13.6(H) 0 - 3 /LPF LAB URINALYSIS - AUTOMATED METHOD 10/12/2024 6:50 AM EST [facility] Comment:This is an appended report. These results have been appended to a previously preliminary verified report. Urine Urine specimen obtained by clean catch procedure / Unknown Non-blood Collection / Unknown 10/11/2024 10:34 PM EST 10/11/2024 11:07 PM EST Smith Quan MD LAB URINE ORDERABLES Edited Result - Final Performing Organization Address [facility]/ZIP Co de Phone Number [facility] [address] [place] [address], [place] [phone] * [place] urine culture tube (10/11/2024 10:34 PM EST) Extra Tube Hold for add-ons. 10/12/2024 1:11 AM EST [facility] Comment:Auto resulted. Urine Urine specimen obtained by clean catch procedure / Unknown Non-blood Collection / Unknown 10/11/2024 10:34 PM EST 10/11/2024 11:07 PM EST Smith Quan MD LAB URINE ORDERABLES Final Result Performing Organization Address [facility]/ZIP Co de Phone Number [facility] [address] [place] [address], [place] [phone] * Culture urine (10/11/2024 10:34 PM EST) Culture, Urine No growth 10/13/2024 10:54 AM EST [facility] Urine Urine specimen obtained by clean catch procedure / Unknown Non-blood Collection / Unknown 10/11/2024 10:34 PM EST 10/11/2024 11:52 PM EST us Smith Quan MD LAB MICROBIOLOGY - GENERAL ORDERABLES Final Result [facility] [address] [place] [address], [place] [phone] from Last 3 Months Insurance , [address] [address] [facility] MEDICARE Member Subscriber Plan / Payer (Ef fective 2023-Present) Name:Bobby Velasco Relation to Subscriber:Self Name:Bobby Velasco Payer ID:[id number] Group ID:[id number] Type:Not on file Address: [place] [address] [address] [address] Care Teams Math And Science Division Chair Relationship Specialty Start Date End Date Marlys, MD Ashley [address] [place] [phone] PCP - General Family Medicine 08/09/24
--- OUTSIDE RECORDS SUMMARY | 2024-10-31 09:36 | XMS_ITS | Encounter Summary ---
Author Organization [facility] Address [address] [facility] [address] [place] [address] Care Team Providers Care Vault Worker Name Role Phone Ashley Frankel MD Primary Care Provider [phone] Viktor November Unavailable Kishore Dorsey MD Unavailable [phone] Raheel Gee Unavailable [phone] Riya Fulton Unavailable Sergio Hackett Unavailable Unavailable Dominga Silva PharmD Unavailable Reason for Visit * Reason Comments Med Change Request Encounter Details Date Type Department Care Team (Late st Contact Info) Description 07/12/2023 Refill [facility] [address] [place], [place] [phone] Ashley Frankel MD [address] [place], [place] [phone] Social History Tobacco Use Types Packs/Day Years [...] 11/01/2024 9:00 AM EST Medication Management [facility] [address] [place] [phone] Dominga Silva, PharmD [address] [place] [phone] 12/09/2024 8:00 AM EDT Office Visit [facility] [address] [place] [phone] Jackie Peacock 01/23/2025 9:45 AM EDT Office Visit [facility] [address] [place] [phone] Ashley Frankel MD [address] [place] [phone] documented as of this encounter Visit Diagnoses Not on filedocumented in this encounter Care Teams Vault Worker Relationship Specialty Start Date End Date Ashley Frankel MD [address] [place] [phone] PCP - General Family Medicine 08/28/18HoangNovember [address]rd [place] [address] Gastroenterology 07/17/24 Kishore Dorsey MD [address] [place] [address] Urology 07/17/24 Raheel Gee [address] [place], [place] [address] Pulmonary Disease 07/17/24 Riya Fulton [address]rd [place] [address] Cardiology 07/17/24 Sergio Hackett [address] [facility] [address] [place] [address] Orthopaedic Surgery 07/17/24 Dominga Silva, AnanthD [address] [place] [address] Pharmacist Internal Medicine 07/22/24 De. Dalal Psychiatry 10/10/24 documented as of this encounter
--- OUTSIDE RECORDS SUMMARY | 2024-10-31 09:37 | XMS_ITS | Encounter Summary ---
Author Organization [employer] Address [address] [facility] 7t [place] [address] Care Team Providers Care Front End Drupal Developer Name Role Phone Ashley Frankel MD Primary Care Provider [phone]- [phone] Hoang, November Unavailable Kishore Dorsey MD Unavailable [phone] Raheel Gee Unavailable [phone] Riya Fulton Unavailable Sergio Hackett Unavailable [...] Description 11/01/2024 9:00 AM EST Medication Management [facility] [address] [place] [address] Dominga Silva PharmD [address] [place] [address] 12/09/2024 8:00 AM EDT Office Visit [facility] ADULT DENTAL [address] [place] [address] Jackie Peacock 01/23/2025 9:45 AM EDT Office Visit [facility] [address] [place] [address] Ashley Frankel MD [address] [place] [address] documented as of this encounter Visit Diagnoses Not on filedocumented in this encounter Additional Health Concerns Assessment Noted Time PHQ-9 Depression Total Score: 0 07/17/20 24 10:33 AM EST documented as of this encounter Care Teams Front End Drupal Developer Relationship Specialty Start Date End Date Ashley Frankel MD [address] [place] [address] PCP - General Family Medicine 08/28/18 Sonya Hoang [address] 3rd [place] [address] Gastroenterology 07/17/24 Kishore Dorsey MD [address] [place] [address] Urology 07/17/24 Raheel Gee 5 [place], [place] 1040 Pulmonary Disease 07/17/24 Riya Fulton [address] 3rd [place] [address] Cardiology 07/17/[address] [facility] 2nd [place] [address] Orthopaedic Surgery 07/17/24 Dominga Silva, AnanthD 230 [place] [address] Pharmacist Internal Medicine 07/22/24 [facility] Psychiatry 10/10/24 documented as of this encounter
--- OUTSIDE RECORDS SUMMARY | 2024-10-31 09:37 | XMS_ITS | Encounter Summary ---
Author Organization [employer] Address 75 [facility] 7t [place] [address] Care Team Providers Care Chief Engineer Drilling And Recovery Name Role Phone Ashley Frankel MD Primary Care Provider [phone]- [phone] Viktor November Unavailable Kishore Dorsey MD Unavailable Raheel Gee Unavailable [phone] Riya Fulton Unavailable Sergio Hackett Unavailable Unavailable Dominga Silva PharmD Unavailable Encounter Details Date Type Department Care Team (Late st Contact Info) Description 10/17/2024 Telephone [facility] 230 [place], [place] [phone] Ashley Frankel MD 230 [place], [place] [phone] Social History Tobacco Use Types Packs/Day Years [...] 11/01/2024 9:00 AM EST Medication Management [facility] [address] [place] [address] Dominga Silva, PharmD [address] [place] [address] 12/09/2024 8:00 AM EDT Office Visit [facility] ADULT DENTAL [address] [place] [address] Jackie Peacock 01/23/2025 9:45 AM EDT Office Visit [facility] [address] [place] [address] Ashley Frankel MD [address] [place] [address] documented as of this encounter Visit Diagnoses Not on filedocumented in this encounter Additional Health Concerns Assessment Noted Time PHQ-9 Depression Total Score: 0 07/17/20 24 10:33 AM EST documented as of this encounter Care Teams Chief Engineer Drilling And Recovery Relationship Specialty Start Date End Date Ashley Frankel MD [address] [place] [address] PCP - General Family Medicine 08/28/18 Sonya Hoang [address] 3rd [place] [address] Gastroenterology 07/17/24 Kishore Dorsey MD [address] [place] [address] Urology 07/17/24 Raheel Gee 5 [place], [place] 1040 Pulmonary Disease 07/17/24 Riya Fulton 11 [facility] 3rd [place] [address] Cardiology 07/17/24 Sergio Hackett [address] [place] [address] Orthopaedic Surgery 07/17/24 Dominga Silva, AnanthD 230 [place] [address] Pharmacist Internal Medicine 07/22/24 [facility] Psychiatry 10/10/24 documented as of this encounter
--- OUTSIDE RECORDS SUMMARY | 2024-10-31 09:37 | XMS_ITS | Encounter Summary ---
Author Organization [employer] Address 75 [facility] 7t [place] [address] Care Team Providers Care Dealer Sales Rep Name Role Phone Ashley Frankel MD Primary Care Provider [phone]- [phone] Viktor November Unavailable Kishore Dorsey MD Unavailable Raheel Gee Unavailable [phone] Riya Fulton Unavailable Sergio Hackett Unavailable Unavailable Dominga Silva PharmD Unavailable [phone] Encounter Details Date Type Department Care Team (Late st Contact Info) Description 10/28/2024 Telephone [facility] 230 [place], [place] [phone] Ashley Frankel MD 230 [place], [place] [phone] Social History Tobacco Use Types Packs/Day Years [...] for patient to contact Arminda Baker at [phone]. documented in this encounter Plan of Treatment Upcoming Encounters Date Type Department Care Team ([facility] st Contact Info) Description 11/01/2024 9:00 AM EST Medication Management [facility] [address] [place] [address] Dominga Silva, PharmD 230 [place] [address] 12/09/2024 8:00 AM EDT Office Visit [facility] ADULT DENTAL [address] [place] [address] Jackie Peacock 01/23/2025 9:45 AM EDT Office Visit [facility] [address] [place] [address] Ashley Frankel MD 230 [place] [address] documented as of this encounter Visit Diagnoses Not on filedocumented in this encounter Additional Health Concerns Assessment Noted Time PHQ-9 Depression Total Score: 0 07/17/20 24 10:33 AM EST documented as of this encounter Care Teams Dealer Sales Rep Relationship Specialty Start Date End Date Ashley Frankel MD 230 [place] [address] PCP - General Family Medicine 08/28/18November [address] [address] Gastroenterology 07/17/24 Kishore Dorsey MD 10 [facility] [address] [place] [address] Urology 07/17/24 Raheel Gee 5 [place], [place] 1040 Pulmonary Disease 07/17/24 Riya Fulton [address] [address] Cardiology 07/17/24 Sergio Hackett [address] [place] [address] Orthopaedic Surgery 07/17/24 Dominga Silva, AnanthD 230 [place] [address] Pharmacist Internal Medicine 07/22/24 [facility] 10/10/24 documented as of this encounter
--- OUTSIDE RECORDS SUMMARY | 2024-10-31 09:37 | XMS_ITS | Encounter Summary ---
Author Organization [employer] Address 75 [facility] 7t [place] [address] Care Team Providers Care Catering Barista Name Role Phone Ashley Frankel MD Primary Care Provider [phone]- [phone] Viktor November Unavailable Kishore Dorsey MD Unavailable Raheel Gee Unavailable [phone] Riya Fulton Unavailable Sergio Hackett Unavailable Unavailable Dominga Silva PharmD Unavailable Reason for Visit * Reason Onset Date Comments chartprep 10/17/2024 Encounter Details Date Type Department Care Team (Late st Contact Info) Description 10/17/2024 Telephone [facility] 230 [place] [address] Ashley Frankel MD 230 [place], [place] [phone] chartprep Social History Tobacco Use Types Packs/Day [...] the past 12 months, has t he [employer], gas, oil or water [employer] threatened to shut off services in your [...] 9:00 AM EST Medication Management [facility] [address] [place] [address] Dominga Silva, PharmD 230 [place] [address] 12/09/2024 8:00 AM EDT Office Visit [facility] ADULT DENTAL 230 [place] [address] Jackie Peacock 01/23/2025 9:45 AM EDT Office Visit [facility] [address] [place] [address] Ashley Frankel MD 230 [place] [address] documented as of this encounter Visit Diagnoses Not on filedocumented in this encounter Additional Health Concerns Assessment Noted Time PHQ-9 Depression Total Score: 0 07/17/20 10:33 AM EST documented as of this encounter Care Teams Catering Barista Relationship Specialty Start Date End Date Ashley Frankel MD 230 [place] [address] PCP - General Family Medicine 08/28/18November 11 [facility] 3rd [place] [address] Gastroenterology 07/17/24 Kishore Dorsey MD 10 [facility] [address] [place] [address] Urology 07/17/24 Raheel Gee 5 [place], [place] 1040 Pulmonary Disease 07/17/24 Riya Fulton [address] [address] Cardiology 07/17/24 Sergio Hackett [address] [place] [address] Orthopaedic Surgery 07/17/24 Dominga Silva, AnanthD 230 [place] [address] Pharmacist Internal Medicine 07/22/24 [facility] Psych[facility] 10/10/24 documented as of this encounter
--- OUTSIDE RECORDS SUMMARY | 2024-10-31 09:37 | XMS_ITS | Encounter Summary ---
Author Organization [employer] Address 75 [facility] 7t [place] [address] Care Team Providers Care Provisioning Analyst Name Role Phone Ashley Frankel MD Primary Care Provider [phone]- [phone] Viktor November Unavailable Kishore Dorsey MD Unavailable Raheel Gee Unavailable [phone] Riya Fulton Unavailable Sergio Hackett Unavailable Unavailable Dominga SilvaD Unavailable Encounter Details Date Type Department Care Team (Late st Contact Info) Description 10/10/2024 Telephone [facility] 230 [place], [place] [phone] Ashley Frankel MD 230 [place], [place] [phone] Social History Tobacco Use Types Packs/Day Years [...] EST Pt reports he was at [facility] and wants to know the lab results. documented in this encounter Plan of Treatment Upcoming Encounters Date Type Department Care Team (Late st Contact Info) Description 11/01/2024 9:00 AM EST Medication Management [facility] [address] [place] [address] Dominga Silva, AnanthD [address] [place] [address] 12/09/2024 8:00 AM EDT Office Visit [facility] ADULT DENTAL [address] [place] [address] Jackie Peacock 01/23/2025 9:45 AM EDT Office Visit [facility] [address] [place] [address] Ashley Frankel MD [address] [place] [address] documented as of this encounter Visit Diagnoses Not on filedocumented in this encounter Additional Health Concerns Assessment Noted Time PHQ-9 Depression Total Score: 0 07/17/20 10:33 AM EST documented as of this encounter Care Teams Provisioning Analyst Relationship Specialty Start Date End Date Ashley Frankel MD 230 [place] [address] PCP - General Family Medicine 08/28/[address] [place] [address] Gastroenterology 07/17/24 Kishore Dorsey MD [address] [place] [address] Urology 07/17/24 Raheel Gee 5 [place], [place] 1040 Pulmonary Disease 07/17/24 Riya Fulton 11 [facility] 3rd [place] [address] Cardiology 07/17/24 Sergio Hackett [facility] [address] [address] [place] [address] Orthopaedic Surgery 07/17/24 Dominga Silva PharmD 230 [place] [address] Pharmacist Internal Medicine 07/22/24 [facility] Psychiatry 10/10/24 documented as of this encounter
--- OUTSIDE RECORDS SUMMARY | 2024-10-31 09:37 | XMS_ITS | Encounter Summary ---
Author Organization [employer] Address [address] [place] [address] 7t [place] [address] Care Team Providers Care City Wellness Coordinator Name Role Phone Ashley Frankel MD Primary Care Provider [phone]- [phone] Viktor November Unavailable Kishore Dorsey MD Unavailable [phone] Raheel Gee Unavailable [phone] Riya Fulton Unavailable Sergio Hackett Unavailable Unavailable Dominga Silva PharmD Unavailable Encounter Details Date Type Department Care Team (Late st Contact Info) Description 07/25/2022 Abstract [facility]ULT [facility] 230 [place] [address] Dental, Provider, DDS Social History Tobacco Use [...] 9:00 AM EST Medication Management [facility] 230 [place] [address] Dominga Silva, PharmD 230 [place] [address] 12/09/2024 8:00 AM EDT Office Visit [facility] ADULT D[facility]AL 230 [place] [address] Jackie Peacock 01/23/2025 9:45 AM EDT Office Visit [facility] [address] [place] [address] Ashley Frankel MD [address] [place] [address] documented as of this encounter Procedures Procedure [...] on filedocumented in this encounter Care Teams City Wellness Coordinator Relationship Specialty Start Date End Date Ashley Frankel MD [address] [place] [address] PCP - General Family Medicine 08/28/18 Viktor Sonya 11 [facility] 3rd [place] [address] Gastroenterology 07/17/24 Kishore Dorsey MD [address] [place] [address] Urology 07/17/24 Raheel Gee 5 [facility] [place] 1040 Pulmonary Disease 07/17/24 Riya Fulton [address] 3rd [place] [address] Cardiology 07/17/24 Sergio Hackett [facility] [address] [address]nd [place] [address] Orthopaedic Surgery 07/17/24 Dominga Silva, Mehrdad 230 [place] [address] Pharmacist Internal Medicine 07/22/24 [facility] Psych[facility] 10/10/24 documented as of this encounter
--- OUTSIDE RECORDS SUMMARY | 2024-10-31 09:37 | XMS_ITS | Encounter Summary ---
Author Organization [facility] Address [address] [place] [address] Care Team Providers Care Manager Performance Name Role Phone Ashley Frankel MD Primary Care Provider [phone]- [phone] Reason for Visit * Reason Comments Flank Pain Bl flank pain here r ecently with kidney stone that had to get broken up on the right . Now having pain while urinating and left flank pain Encounter Details Date Type Department Care Team (Late st Contact Info) Description 10/12/2024 3:45 AM EST - 10/12/2024 9:39 AM EST Emergency [facility] Emergency [address] [place] [phone] Smith Quan MD [address] [address] Urinary tract infection with hematuria, site unspecified [...] REFLEX MICROSCOPIC AND CULTURE - Abnormal Specific [place] Urine 1.014 pH, Urine 5.5 Leukocytes, Urine [...] Procedure Abnormality Status --------- ------ CBC auto differential[[id number]] Abnormal Final result Please view results for these tests on the individual orders. URINALYSIS WITH REFLEX MICROSCOPIC AND CULTURE Narrative: The following orders were created for panel order Urinalysis with reflex microscopic and culture. Procedure Abnormality Status --------- ------ Urinalysis with reflex ...[[id number]] Abnormal Edited Result - FINAL Carlin urine culture tube[[id number]] Final result Please view results for these [...] post lithotripsy, stent placement for kidney stones [facility] as noted in greater detail above. [...] outpatient antibiotic treatment, may require transfer to [place] given recent postoperative status. Medications gentamicin (GARAMYCIN) 420 mg in sodium chloride 0.9 % 100 mL IVPB (420 mg intravenous New Bag 10/12/24 3974) ketorolac (TORADOL) injection 15 mg (15 mg intravenous Given 10/12/24 8507) sodium chloride 0.9 % bolus 1,000 mL [...] 10:45 AM EDT Consult Orthopedic Surgery - [place] [address] [address] Raheel Slater, DPM [address] [address] documented as of this encounter Procedures Procedure [...] K/mcL LAB HEMETOLOGY METHOD 10/12/2024 12:01 AM [facility] RBC 4.60 4.50 - 5.50 M/mcL LAB HEMETOLOGY METHOD 10/12/2024 12:01 AM [facility] Hemoglobin 14.1 13.5 - 17.5 g/dL LAB HEMETOLOGY METHOD 10/12/2024 12:01 AM [facility] Hematocrit 42.7 42.0 - 54.0 % LAB HEMETOLOGY METHOD 10/12/2024 12:01 AM [facility] MCV 92.2 79.0 - 98.0 FL LAB HEMETOLOGY METHOD 10/12/2024 12:01 AM [facility] MCH 30.5 27.0 - 32.0 pcg LAB HEMETOLOGY METHOD 10/12/2024 12:01 AM [facility] MCHC 33.0 32.0 - 37.0 g/dL LAB HEMETOLOGY METHOD 10/12/2024 12:01 AM [facility] RDW 12.8 11.0 - 15.0 % LAB HEMETOLOGY METHOD 10/12/2024 12:01 AM [facility] Platelets 327 130 - 400 K/mcL LAB HEMETOLOGY METHOD 10/12/2024 12:01 AM [facility] MPV 10.4 7.0 - 11.0 FL LAB HEMETOLOGY METHOD 10/12/2024 12:01 AM [facility] NRBC 0.0 <1.0 % LAB HEMETOLOGY METHOD 10/12/2024 12:01 AM [facility] NRBC Absolute 0.00 <0.10 K/mcL LAB HEMETOLOGY METHOD 10/12/2024 12:01 AM [facility] Neutrophils Relative 66.8 % LAB HEMETOLOGY METHOD 10/12/2024 12:01 AM [facility] Lymphocytes Relative 21.5 % LAB HEMETOLOGY METHOD 10/12/2024 12:01 AM [facility] Monocytes Relative 9.6 % LAB HEMETOLOGY METHOD 10/12/2024 12:01 AM [facility] Eosinophils Relative 1.2 % LAB HEMETOLOGY METHOD 10/12/2024 12:01 AM [facility] Basophils Relative 0.4 % LAB HEMETOLOGY METHOD 10/12/2024 12:01 AM [facility] Immature Granulocytes Relative 0.5 % LAB HEMETOLOGY METHOD 10/12/2024 12:01 AM [facility] Neutrophils Absolute 5.12 1.50 - 7.00 K/mcL LAB HEMETOLOGY METHOD 10/12/2024 12:01 AM [facility] Lymphocytes Absolute 1.65 1.00 - 5.00 K/mcL LAB HEMETOLOGY METHOD 10/12/2024 12:01 AM [facility] Monocytes Absolute 0.74 0.20 - 1.00 K/mcL LAB HEMETOLOGY METHOD 10/12/2024 12:01 AM [facility] Eosinophils Absolute 0.09 0.00 - 0.50 K/mcL LAB HEMETOLOGY METHOD 10/12/2024 12:01 AM [facility] Basophils Absolute 0.03 0.00 - 0.20 K/mcL LAB HEMETOLOGY METHOD 10/12/2024 12:01 AM [facility] Immature Granulocytes Absolute 0.04(H) 0.00 - 0.03 K/mcL LAB HEMETOLOGY METHOD 10/12/2024 12:01 AM [facility] Blood Venous blood specimen / Unknown Venipuncture / Unknown 10/11/2024 11:18 PM EST 10/11/2024 11:44 PM EST us Smith Quan MD LAB BLOOD ORDERABLES Final Result [facility] [address] [place] [address], * (ABNORMAL) Comprehensive metabolic panel (10/11/2024 11:18 PM EST) Sodium 138 133 - 145 mmol/L LAB CHEMISTRY METHOD 10/12/2024 12:38 AM [facility] Potassium 4.3 3.5 - 5.5 mmol/L LAB CHEMISTRY METHOD 10/12/2024 12:38 AM [facility] Chloride 107 96 - 110 mmol/L LAB CHEMISTRY METHOD 10/12/2024 12:38 AM [facility] CO2 30 21 - 32 mmol/L LAB CHEMISTRY METHOD 10/12/2024 12:38 AM [facility] Anion Gap 1(L) 3 - 11 LAB CHEMISTRY METHOD 10/12/2024 12:38 AM [facility] Glucose 126(H) 70 - 100 mg/dL LAB CHEMISTRY METHOD 10/12/2024 12:38 AM [facility] BUN 15 5 - 25 mg/dL LAB CHEMISTRY METHOD 10/12/2024 12:38 AM [facility] Creatinine 1.15 0.70 - 1.30 mg/dL LAB CHEMISTRY METHOD 10/12/2024 12:38 AM [facility] eGFR 73 >=60 mL/min/1. 73m2 LAB CHEMISTRY METHOD 10/12/2024 12:38 AM [facility] Comment:Calculation based on the??Chronic Kidney Disease Epidemiology Collaboration (CKD-EPI) equation refit??without adjustment for race. BUN/Creatinine Ratio 13.0 LAB CHEMISTRY METHOD 10/12/2024 12:38 AM [facility] Calcium 9.8 8.5 - 10.5 mg/dL LAB CHEMISTRY METHOD 10/12/2024 12:38 AM [facility] AST (SGOT) 24 10 - 42 unit/L LAB CHEMISTRY METHOD 10/12/2024 12:38 AM [facility] ALT (SGPT) 22 10 - 60 unit/L LAB CHEMISTRY METHOD 10/12/2024 12:38 AM [facility] Alkaline Phosphatase 100 42 - 121 unit/L LAB CHEMISTRY METHOD 10/12/2024 12:38 AM [facility] Total Protein 6.9 6.0 - 8.0 g/dL LAB CHEMISTRY METHOD 10/12/2024 12:38 AM [facility] Albumin 3.9 3.2 - 5.0 g/dL LAB CHEMISTRY METHOD 10/12/2024 12:38 AM [facility] Total Bilirubin 0.6 0.0 - 1.4 mg/dL LAB CHEMISTRY METHOD 10/12/2024 12:38 AM [facility] Blood Venous blood specimen / Unknown Venipuncture / Unknown 10/11/2024 11:18 PM EST 10/11/2024 11:44 PM EST us Smith Quan MD LAB BLOOD ORDERABLES Final Result Performing Organization Address [facility] [[email or web address]] Co de Phone Number [facility] [address] [place] [address], [place] [phone] * Culture urine (10/11/2024 10:34 PM EST) Culture, Urine No growth 10/13/2024 10:54 AM EST [facility] Urine Urine specimen obtained by clean catch procedure / Unknown Non-blood Collection / Unknown 10/11/2024 10:34 PM EST 10/11/2024 11:52 PM EST Smtih Quan MD LAB MICROBIOLOGY - GENERAL ORDERABLES Final Result Performing Organization Address [facility] [[email or web address]] Co de Phone Number [facility] [address] [place] [address], * Carlin urine culture tube (10/11/2024 10:34 PM EST) Pathologist [facility] Extra Tube Hold for add-ons. 10/12/2024 1:11 AM EST [facility] Comment:Auto resulted. Urine Urine specimen obtained by clean catch procedure / Unknown Non-blood Collection / Unknown 10/11/2024 10:34 PM EST 10/11/2024 11:07 PM EST Smith Quan MD LAB URINE ORDERABLES Final Result Performing Organization Address [facility] [[email or web address]] Co de Phone Number [facility] [address] [place] [address], [place] [phone] * (ABNORMAL) Urinalysis with reflex microscopic and culture (10/11/2024 10:34 PM EST) [facility] Specific [place] Urine 1.014 1.003 - 1.030 LAB URINALYSIS - AUTOMATED METHOD 10/12/2024 6:50 AM EST [facility] pH, Urine 5.5 5.0 - 8.0 pH LAB URINALYSIS - AUTOMATED METHOD 10/12/2024 6:50 AM [facility] Leukocytes, Urine Moderate(A) Negative LAB URINALYSIS - AUTOMATED METHOD 10/12/2024 6:50 AM [facility] Nitrite, Urine Positive(A) Negative LAB URINALYSIS - AUTOMATED METHOD 10/12/2024 6:50 AM [facility] Protein, Urine 300(A) <=Trace mg/dL LAB URINALYSIS - AUTOMATED METHOD 10/12/2024 6:50 AM [facility] Glucose, Urine Negative Negative mg/dL LAB URINALYSIS - AUTOMATED METHOD 10/12/2024 6:50 AM [facility] Ketones, Urine Negative Negative mg/dL LAB URINALYSIS - AUTOMATED METHOD 10/12/2024 6:50 AM [facility] Urobilinogen, Urine 1.0 0.2 - 1.0 mg/dL LAB URINALYSIS - AUTOMATED METHOD 10/12/2024 6:50 AM [facility] Bilirubin, Urine Small(A) Negative LAB URINALYSIS - AUTOMATED METHOD 10/12/2024 6:50 AM [facility] Blood, Urine Large(A) Negative LAB URINALYSIS - AUTOMATED METHOD 10/12/2024 6:50 AM [facility] RBC, Urine 1,724.4(H) 0 - 4 /HPF LAB URINALYSIS - AUTOMATED METHOD 10/12/2024 6:50 AM [facility] Comment:This is an appended report. These results have been appended to a previously preliminary verified report. WBC, Urine 48.9(H) 0 - 4 /HPF LAB URINALYSIS - AUTOMATED METHOD 10/12/2024 6:50 AM [facility] Comment:This is an appended [...] AM EST [facility] Comment: Edited result: Previously reported as [...] LAB URINE ORDERABLES Edited Result - Final [facility] [address] [place] [address], documented in this encounter Visit Diagnoses Diagnosis [...] RN) documented in this encounter Care Teams Manager Performance Relationship Specialty Start Date End Date Ashley Frankel MD [address] [address] PCP - General Family Medicine 08/09/24 documented as of this encounter
--- OUTSIDE RECORDS SUMMARY | 2024-10-31 09:37 | XMS_ITS | Encounter Summary ---
Author Organization [employer] Address [address] [place] [address] 7[place] [address] Care Team Providers Care Membership Advisor Name Role Phone Ashley Frankel MD Primary Care Provider [phone]- [phone] Viktor November Unavailable Kishore Dorsey MD Unavailable [phone] Raheel Gee Unavailable [phone] Riya Fulton Unavailable Sergio Hackett Unavailable Unavailable Dominga Silva PharmD Unavailable Encounter Details Date Type Department Care Team (Latest Contact Info) Description 06/08/2022 Abstract [facility] CONVERSIONS Dental, Provider, DDS Social [...] Description 11/01/2024 9:00 AM EST Medication Management [facility] MEDICINE [address] [place], [place] [phone] Dominga Silva, PharmD 230 [place] [address] 12/09/2024 8:00 AM EDT Office Visit [facility] ADULT DENTAL [address] [place] [address] Jackie Peacock 01/23/2025 9:45 AM EDT Office Visit [facility] MEDICINE [address] [place] [address] Ashley Frankel MD 230 [place] [address] documented as of this encounter Visit Diagnoses Not on filedocumented in this encounter Care Teams Membership Advisor Relationship Specialty Start Date End Date Ashley Frankel MD 230 [place] [address] PCP - General Family Medicine 08/28/18 Viktor November [address] [address] Gastroenterology 07/17/24 Kishore Dorsey MD 10 [facility] [address] [place] [address] Urology 07/17/24 Raheel Gee 5 [place], [place] [address] Pulmonary Disease 07/17/24 Riya Fulton [address] [address] Cardiology 07/17/24 Sergio Hackett [address] [place] [address] Orthopaedic Surgery 07/17/24 Dominga Silva, Mehrdad 230 [place] [address] Pharmacist Internal Medicine 07/22/24 [facility] 10/10/24 documented as of this encounter
--- OUTSIDE RECORDS SUMMARY | 2024-10-31 09:37 | XMS_ITS | Encounter Summary ---
Author Organization [employer] Address [address] [place] [address] [place] [address] Care Team Providers Care Metal Slitter Name Role Phone Ashley Frankel MD Primary Care Provider [phone]- [phone] Viktor November Unavailable Kishore Dorsey MD Unavailable Raheel Gee Unavailable [phone] Riya Fulton Unavailable Sergio Hackett Unavailable Unavailable Dominga Silva PharmD Unavailable Reason for Referral * Consultation (Routine) - Authorized Specialty Diagnoses / Procedures Referred By Jeromy worrell Referred To Contact Pharmacy Diagnoses Primary hypertension Ashley Franekl MD [address] [place] [address] Phone: tel: fax: Referral ID Status Reason Start Date Expiration Date Visits Requested Visits Authorized [id number] Authorized Continuity of Care 10/24/2024 10/24/2025 6 6 * Consultation (Routine) - Authorized Specialty Diagnoses / Procedures Referred By Jeromy worrell Referred To Contact Pharmacy Diagnoses Primary hypertension Ashley Frankel MD [address] [place] [address] Phone: tel: fax: Referral ID Status Reason Start Date Expiration Date Visits Requested Visits Authorized [id number] Authorized Consult and Treat 10/24/2024 10/24/2025 6 6 Reason for Visit * Reason Comments follow up bp Encounter Details Date Type Department Care Team (Latest Contact Info) Description 10/24/2024 9:15 AM EST Office Visit [facility] MEDICINE 230 [place] [address] Ashley Frankel MD 230 [place] [address] Primary hypertension (Primary Dx); Weight loss, non-intentional; [...] Description 11/01/2024 9:00 AM EST Medication Management [facility] [address] [place] [address] Dominga Silva, PharmD 230 [place] [address] 12/09/2024 8:00 AM EDT Office Visit [facility] ADULT DENTAL 230 [place] [address] Jackie Peacock 01/23/2025 9:45 AM EDT Office Visit [facility] [address] [place] [address] Ashley Frankel MD [address] [place] [address] Scheduled Referrals Name Type Priority Associated Diagnoses [...] 9:22 AM EST) HIV AB/AG Nonreactive Nonreactive [facility] Comment:HIV-1 p24 Ag and/or HIV-1/HIV-2 Ab not detected.A test result that is nonreactive does not exclude thepossibility of exposure to or infection with HIV-1 and/orHIV-2. Nonreactive results in this assay for individualswith prior exposure to HIV-1 and/or HIV-2 may be due toantigen and antibody levels that are below the limit ofdetection of this assay.The [employer] HIV Ag/Ab Combo assay result andsupplemental assay results should be interpreted inconjunction with the patient's clinical presentation,history and other laboratory results. If the results areinconsistent with clinical evidence, additional testing issuggested to confirm the result. Blood Venous blood specimen / Unknown 10/24/2024 9:22 AM EST 10/24/2024 11:48 AM EST us Ashley Frankel MD LAB BLOOD ORDERABLES Final Result [facility] [address] [place] [phone] * TSH W/Reflex to FT4 (10/24/2024 9:22 AM EST) TSH reflex Free T4 1.31 0.32 - 4.0 uIU/mL [facility] Blood Venous blood specimen / Unknown 10/24/2024 9:22 AM EST 10/24/2024 11:48 AM EST Ashley Frankel MD LAB BLOOD ORDERABLES Final Result Performing Organization Address City/[facility]/ZIP Co de Phone Number [facility] [address] [place] [phone] * Vitamin D, 25-Hydroxy, Total, Immunoassay (10/24/2024 9:22 AM EST) Vitamin D 25-OH Total 39.3 >30 ng/mL [facility] Comment:Health Based Referen ce Values*< 20 ng/mL [id number] ng/mL Insufficient> 30 ng/mL Sufficient*Colleen GILL. N [...] BLOOD ORDERABLES Final Result Performing Organization Address [facility] Co de Phone Number [facility] [address] [place] [phone] * Lactate Dehydrogenase (LD) (10/24/2024 9:22 AM EST) Lactate Dehydrogenase 248 118 - 273 U/L [facility] Blood Venous blood specimen / Unknown 10/24/2024 9:22 AM EST 10/24/2024 11:48 AM EST Ashley Frankel MD LAB BLOOD ORDERABLES Final Result [facility] [address] [place] [phone] [phone] documented in this encounter Visit Diagnoses Diagnosis Primary hypertension- Primary Unspecified essential hypertension Weight loss, non-intentional Loss of weight 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 ([facility]) Overweight Dietary counseling Dietary surveillance and counseling Exercise counseling Dyslipidemia Other and unspecified hyperlipidemia Type 2 diabetes mellitus without complication, without long-term current use of insulin ([facility]) Pulmonary nodules Other diseases of lung, not elsewhere classified documented in this encounter Additional Health Concerns Assessment Noted Time PHQ-9 Depression Total Score: 0 07/17/20 10:33 AM EST documented as of this encounter Care Teams Metal Slitter Relationship Specialty Start Date End Date Ashley Frankel MD 230 [place] [address] PCP - General Family Medicine 08/28/18November [address] [place] [address] Gastroenterology 07/17/24 Kishore Dorsey MD [address] [place] [address] Urology 07/17/24 Raheel Gee 5 [place], [place] 10[address] Pulmonary Disease 07/17/24 Riya Fulton [address] [place] [address] Cardiology 07/17/24 Sergio Hackett [facility] [address]nd [place] [address] Orthopaedic Surgery 07/17/24 Dominga Silva, Mehrdad [address] [place] [address] Pharmacist Internal Medicine 07/22/24 [facility] 10/10/24 documented as of this encounter
--- OUTSIDE RECORDS SUMMARY | 2024-10-31 09:37 | XMS_ITS | Encounter Summary ---
Author Organization [employer] Address [address] [place] [address] 7t [place] [address] Care Team Providers Care Director Corporate Communications Name Role Phone Ashley Frankel MD Primary Care Provider [phone] Viktor November Unavailable Kishore Dorsey MD Unavailable Raheel Gee Unavailable [phone] Riya Fulton Unavailable Sergio Hackett Unavailable Unavailable Dominga Silva PharmD Unavailable Encounter Details Date Type Department Care Team (Late st Contact Info) Description 02/01/2023 Telephone [facility] MEDICINE [address] [place], [place] [phone] Ashley Frankel MD 230 [place], [place] [phone] Social History Tobacco Use Types Packs/Day Years [...] Description 11/01/2024 9:00 AM EST Medication Management [facility] MEDICINE [address] [place] [address] Dominga Silva PharmD [address] [place] [address] 12/09/2024 8:00 AM EDT Office Visit [facility] ADULT DENTAL [address] [place] [address] Jackie Peacock 01/23/2025 9:45 AM EDT Office Visit [facility] MEDICINE [address] [place] [address] Ashley Frankel MD [address] [place] [address] documented as of this encounter Visit Diagnoses Not on filedocumented in this encounter Care Teams Director Corporate Communications Relationship Specialty Start Date End Date Ashley Frankel MD [address] [place] [address] PCP - General Family Medicine 08/28/18November 11 [facility] 3rd [place] [address] Gastroenterology 07/17/24 Kishore Dorsey MD [address] [place] [address] Urology 07/17/24 Raheel Gee 5 [place], [place] 1040 Pulmonary Disease 07/17/24 Riya Fulton [address] [place] [address] Cardiology 07/17/24 Sergio Hackett [address] [address] Orthopaedic Surgery 07/17/24 Dominga Silva, Mehrdad [address] [place] [address] Pharmacist Internal Medicine 07/22/24 [facility] 10/10/24 documented as of this encounter
--- OUTSIDE RECORDS SUMMARY | 2024-10-31 09:37 | XMS_ITS | Encounter Summary ---
Author Organization [employer] Address [address] [place] [address] 7[place] [address] Care Team Providers Care Tc Operator Name Role Phone Ashley Frankel MD Primary Care Provider [phone]- [phone] Viktor November Unavailable Kishore Dorsey MD Unavailable Raheel Gee Unavailable [phone] Riya Fulton Unavailable Sergio Hackett Unavailable Unavailable Dominga Silva PharmD Unavailable Encounter Details Date Type Department Care Team (Latest Contact Info) Description 07/04/2019 Abstract [facility] CONVERSIONS Dental, Provider, DDS Social History Tobacco [...] Description 11/01/2024 9:00 AM EST Medication Management [facility] MEDICINE [address] [place], [place] [phone] Dominga Silva, PharmD 230 [place] [address] 12/09/2024 8:00 AM EDT Office Visit [facility] ADULT DENTAL [address] [place] [address] Jackie Peacock 01/23/2025 9:45 AM EDT Office Visit [facility] MEDICINE [address] [place] [address] Ashley Frankel MD 230 [place] [address] documented as of this encounter Visit Diagnoses Not on filedocumented in this encounter Care Teams Tc Operator Relationship Specialty Start Date End Date Ashley Frankel MD 230 [place] [address] PCP - General Family Medicine 08/28/18 Viktor November [address] [address] Gastroenterology 07/17/24 Kishore Dorsey MD 10 [facility] [address] [place] [address] Urology 07/17/24 Raheel Gee 5 [place], [place] 1040 Pulmonary Disease 07/17/24 Riya Fulton [address] [address] Cardiology 07/17/24 Sergio Hackett [address] [place] [address] Orthopaedic Surgery 07/17/24 Dominga Silva, Mehrdad 230 [place] [address] Pharmacist Internal Medicine 07/22/24 [facility] 10/10/24 documented as of this encounter
--- OUTSIDE RECORDS SUMMARY | 2024-10-31 09:37 | XMS_ITS | Encounter Summary ---
Author Organization [employer] Address [address] [facility] 7t [place] [address] Care Team Providers Care Sausage Linker Name Role Phone Ashley Frankel MD Primary Care Provider [phone]- [phone] Viktor November Unavailable Kishore Dorsey MD Unavailable [phone] Raheel Gee Unavailable [phone] Riya Fulton Unavailable Sergio Hackett Unavailable Unavailable Dominga SilvaD Unavailable Encounter Details Date Type Department Care Team (Late st Contact Info) Description 10/26/2024 Orders Only [facility] MEDICINE 230 [place], [place] [phone] Bryan Coleman MD 230 [place], [place] [phone] Social History Tobacco Use Types Packs/Day Years [...] Medication Management [facility] MEDICINE [address] [place] [address] Dominga Silva PharmD [address] [place] [address] 12/09/2024 8:00 AM EDT Office Visit [facility] ADULT DENTAL [address] [place] [address] Jackie Peacock 01/23/2025 9:45 AM EDT Office Visit [facility] MEDICINE [address] [place] [address] Ashley Frankel MD 230 [place] [address] documented as of this encounter Procedures Procedure Name Priority Date/Time Associated Diagnosis Comments CULTURE, URINE, ROUTINE Routine 10/26/2024 9:30 AM EST documented in this encounter Results * Culture, Urine, Routine (10/26/2024 9:30 AM EST) Urine Urine specimen obtained by clean catch procedure / Unknown 10/26/2024 9:30 AM EST 10/26/2024 2:18 PM EST Comment:UACC Narrative [facility] - 10/28/2024 8:45 AM EST Urine Culture No growth. Specimen Source: Urine clean catch us Bryan Coleman MD LAB MICROBIOLOGY - GENERAL ORDER MAN Final Result [facility] [address] [place] [phone] [phone] documented in this encounter Visit Diagnoses Not on filedocumented in this encounter Additional Health Concerns Assessment Noted Time PHQ-9 Depression Total Score: 0 07/17/20 10:33 AM EST documented as of this encounter Care Teams Sausage Linker Relationship Specialty Start Date End Date Ashley Frankel MD 230 [place] [address] PCP - General Family Medicine 08/28/18 Viktor November [address] [place] [address] Gastroenterology 07/17/24 Kishore Dorsey MD [address] [place] [address] Urology 07/17/24 Raheel Gee 5 [place], [place] 10[address] Pulmonary Disease 07/17/24 Riya Fulton [address] [place] [address] Cardiology 07/17/24 Sergio Hackett [address] [place] [address] Orthopaedic Surgery 07/17/24 Dominga Silva, Mehrdad 230 [place] [address] Pharmacist Internal Medicine 07/22/24 [facility] 10/10/24 documented as of this encounter
--- OUTSIDE RECORDS SUMMARY | 2024-10-31 09:37 | XMS_ITS | Encounter Summary ---
Author Organization [employer] Address [address] [place] [address] 7[place] [address] Care Team Providers Care Pest Control Supervisor Name Role Phone Ashley Frankel MD Primary Care Provider [phone]- [phone] Viktor November Unavailable Kishore Dorsey MD Unavailable Raheel Gee Unavailable [phone] Riya Fulton Unavailable Sergio Hackett Unavailable Unavailable Dominga Silva PharmD Unavailable [phone] Encounter Details Date Type Department Care Team (Late st Contact Info) Description 09/13/2022 Abstract [facility] MEDICINE [address] [place] [address] Ashley Frankel MD [address] [place] [address] Social History Tobacco Use Types Packs/Day Years [...] Description 11/01/2024 9:00 AM EST Medication Management [facility] MEDICINE [address] [place] [address] Dominga Silva, PharmD [address] [place] [address] 12/09/2024 8:00 AM EDT Office Visit [facility] ADULT DENTAL [address] [place] [address] Jackie Peacock 01/23/2025 9:45 AM EDT Office Visit [facility] MEDICINE [address] [place] [address] Ashley Frankel MD [address] [place] [address] documented as of this encounter Procedures Procedure Name Priority Date/Time Associated Diagnosis Comments COLONOSCOPY Routine 09/06/2012 documented in this encounter Results * Colonoscopy (09/06/2012) Colonoscopy normal with Dr. Barrera Historical Provider [facility] Final Result documented in this encounter Visit Diagnoses Not on filedocumented in this encounter Care Teams Pest Control Supervisor Relationship Specialty Start Date End Date Ashley Frankel MD [address] [place] [address] PCP - General Family Medicine 08/28/18November 11 [facility] 3rd [place] [address] Gastroenterology 07/17/24 Kishore Dorsey MD [address] [place] [address] Urology 07/17/24 Raheel Gee 5 [place], [place] 10[address] Pulmonary Disease 07/17/24 Riya Fulton 11 [facility] [address]rd [place] [address] Cardiology 07/17/24 Sergio Hackett [address]nd [place] [address] Orthopaedic Surgery 07/17/24 Dominga Silva, Mehrdad 230 [place] [address] Pharmacist Internal Medicine 07/22/24 [facility] 10/10/24 documented as of this encounter
--- OUTSIDE RECORDS SUMMARY | 2024-10-31 09:37 | XMS_ITS | Encounter Summary ---
Author Organization [employer] Address [address] [place] [address] 7[place] [address] Care Team Providers Care Light Coil Winder Name Role Phone Ashley Frankel MD Primary Care Provider [phone] Viktor November Unavailable Kishore Dorsey MD Unavailable Raheel Gee Unavailable [phone] Riya Fulton Unavailable Sergio Hackett Unavailable Unavailable Dominga Silva PharmD Unavailable [phone] Encounter Details Date Type Department Care Team (Late st Contact Info) Description 04/07/2023 Abstract [facility] MEDICINE [address] [place] [address] [phone] Ashley Frankel MD 230 [place], [place] [phone] Social History Tobacco Use Types Packs/Day Years [...] Description 11/01/2024 9:00 AM EST Medication Management [facility] [address] [place] [address] Dominga Silva PharmD 230 [place] [address] 12/09/2024 8:00 AM EDT Office Visit [facility] ADULT DENTAL [address] [place] [address] Jackie Peacock 01/23/2025 9:45 AM EDT Office Visit [facility] [address] [place] [address] Ashley Frankel MD 230 [place] [address] documented as of this encounter Procedures Procedure Name Priority Date/Time Associated Diagnosis Comments COLONOSCOPY Routine 04/06/2023 documented in this encounter Results * Colonoscopy (04/06/2023) [facility] Signature Colonoscopy Normal Normal Historical Provider [facility] Final Result documented in this encounter Visit Diagnoses Not on filedocumented in this encounter Care Teams Light Coil Winder Relationship Specialty Start Date End Date Ashley Frankel MD 230 [place] [address] PCP - General Family Medicine 08/28/18HoangNovember [address] 3rd [place] [address] Gastroenterology 07/17/24 Kishore Dorsey MD [address] [place] [address] Urology 07/17/24 Raheel Gee 5 [place], [place] 10[address] Pulmonary Disease 07/17/24 Riya Fulton [address] 3rd [place] [address] Cardiology 07/17/24 Sergio Hackett [address] [place] [address] Orthopaedic Surgery 07/17/24 Dominga Silva, Mehrdad 230 [place] [address] Pharmacist Internal Medicine 07/22/24 [facility] 10/10/24 documented as of this encounter
== END 2024-10-31 08:00 | disposition home or self-care (01) ==
LOC: HO.LNP 07:59
PROVIDERS: PCP Family Medicine; Visit Provider Urology
DX: R35.1 Nocturia (principal)
CPT/HCPCS: 52310; 81003; 87086

== ENCOUNTER 2024-10-31 07:59 | Outpatient (AMB) | payer OTHER, SELFPAY ==
--- NOTE | 2024-10-31 07:33 | A.OFFVIS_ITS ---
Intake Visit Reasons: stent removal Allergies amoxicillin [AMOXICILLIN] Allergy (Severe, Verified 11/19/24 15:43) ANAPHYLAXIS Penicillins Allergy (Severe, Verified 11/19/24 15:43) UNKNOWN REACTION-CHILDHOOD doxycycline [From VIBRAMYCIN] Adverse Reaction (Mild, Verified 11/19/24 15:43) DIARRHEA Clindamycin HCl Allergy (Severe, Uncoded 11/19/24 09:10) Anaphylaxis HPI Comments Details: 10/31/24-- Here for stent removal. Bobby is a 59-year-old male presenting with nephrolithiasis. He underwent a right ureteroscopy and laser lithotripsy for a ureteral stone, 10/01/24 with the placement of a ureteral stent. The patient reported kidney pressure due to the stent, alongside increased urinary frequency and urgency. His medical history includes management of nephrolithiasis and erectile dysfunction by Dr. Dorsey, CoMorbidity type 2 diabetes mellitus. The stone was confirmed as calcium oxalate. His last PSA 08/13/24 was recorded as 0.69. 10/01/24 right ureteral stone fragments--Calcium Oxalate Dihydrate (Weddellite) 20%, Calcium Oxalate Monohydrate (Whewellite) 80% Urinary Symptoms Review - Reports increased urinary frequency. - Reports urgency when needing to urinate. - Reports pressure in the kidney region, attributed to the stent. - Describes urinary symptoms as improved upon stent removal. Results - Labs: Calcium oxalate stone confirmed through analysis. [facility] Medical History (Updated 11/19/24 @ 11:06 by CAIN Neville) Constipation Opacity of lung on imaging study Pre-op examination GERD (gastroesophageal reflux disease) Orchialgia Weak urinary stream Asthma Nasal polyps Diabetes HTN (hypertension) Pulmonary nodules Surgical History History of esophagogastroduodenoscopy (EGD) Hx of colonoscopy H/O wrist surgery Family History Father Diabetes Hypertension Mother Hypertension Hyperlipidemia Brother Hypertension Family/Other Kidney stones Prostate cancer Bladder cancer Renal cancer Social History Household Members: None Housing: Apartment Alcohol intake: former Patient Tobacco Use Status: Former Tobacco user Tobacco use type: Cigarette Years Smoked: 30 years service: No Office Procedures Cystoscopy Consent Discussed risk and benefit or proposed procedure with the patient. Information consent for procedure given to the patient. Discussed technical aspects, risks, benefits and alternatives in full. Addressed all of the patient's questions and concerns regarding the procedure. The patient demonstrated knowledge and understanding. They wish to proceed with this procedure. Preparation The patient was prepped in the usual manner. A locksmith helper was present and in the room. Genitalia was prepped with betadine solution in a sterile manner. Lidocaine Jelly 2% was placed into the urethra and 16Fr flexible Olympus cys toscope was inserted into the meatus after adequate lubrication. Procedure Time out per protocol performed. Bladder Inspection Cystoscopy findings: mild edema ureteral orifice which is expected, distal end of ureteral stent visualized. The grasping forceps were used and the stent was removed without difficulty[place] [address]-[id number] with stent removal DISPOSABLE SCOPE URO-G FLEXIBLE SCOPE Procedure code (CPT) selection complete Office Meds lidocaine HCl 2 % mucosal jelly in applicator Performing Provider: Mayda Rodriguez MD [facility] Administered by: John Mansfield LPN on 10/31/24 08:17 Dose Route Admin Location Dispensed Lot Number Expiration Date ND [employer] 10 mL intra-urethral 20 mL Comments: naproxen 500 mg tablet Performing Provider: Mayda Rodriguez MD Performing Location[facility] Administered by: John Mansfield LPN on 10/31/24 08:17 Dose Route Admin Location Dispensed Lot Number Expiration Date ND [employer] 500 mg PO 1 tab ciprofloxacin HCl 500 mg tablet Performing Provider: Mayda Rodriguez MD Performing Location[facility] [place] Administered by: John Mansfield LPN on 10/31/24 08:17 Dose Route Admin Location Dispensed Lot Number Expiration Date ND [employer] 500 mg PO 1 tab Results AMB Urinalysis, Automated UA Leukoctes 125 Ernesto/uL Last Edit by Dedra Cazares CMA on 10/31/24 08:17 UA Nitrite Negative Last Edit by Dedra Cazares CMA on 10/31/24 08:17 UA Urobilinogen 0.2 mg/dL Last Edit by Dedra Cazares CMA on 10/31/24 08:17 UA Protein 300 mg/dL Last Edit by Dedra Cazares CMA on 10/31/24 08:17 UA pH 6.0 Last Edit by Dedra Cazares CMA on 10/31/24 08:17 UA Blood 200 Jose Angel/uL Last Edit by Dedra Cazares CMA on 10/31/24 08:17 UA Specific [place] 1.025 Last Edit by Dedra Cazares CMA on 10/31/24 08:17 UA Ketone Positive Last Edit by Dedra Cazares CMA on 10/31/24 08:17 UA Bilirubin 0 mg/dL Last Edit by Dedra Cazares CMA on 10/31/24 08:17 UA Glucose 0 mg/dL Last Edit by Dedra Cazares CMA on 10/31/24 08:17 Results Reviewed Results Reviewed: Laboratory Last Values Urine pH (Auto) 6.0 10/31/24 08:14 Specific [place] (Auto) 1.025 10/31/24 08:14 Urine Protein (Auto) 300 mg/dL 10/31/24 08:14 Glucose (UA)(Auto) 0 mg/dL 10/31/24 08:14 Urine Ketones (Auto) Positive 10/31/24 08:14 Urine Blood (Auto) 200 Jose Angel/uL 10/31/24 08:14 Urine Nitrite (Auto) Negative 10/31/24 08:14 Urine Bilirubin (Auto) 0 mg/dL 10/31/24 08:14 Urine Urobilinogen (Auto) 0.2 mg/dL 10/31/24 08:14 Leukocyte Esterase (Auto) 125 Ernesto/uL 10/31/24 08:14 SHERYL: 10/01/24-8 STATUS: COMP REQ : [id number] RECD: 10/02/[address] [facility] [address]: Mayda Rodriguez MD COMP: 10/09/24-0304 ENTERED: 10/02/24-[address]: Ashley Frankel MD ORDERED: Kidney Stone QUERIES: Kidney Stone Source: [id number] Test Result Flag Reference Component 1 SEE NOTE Calcium Oxalate Dihydrate (Weddellite) 20% Calcium Oxalate Monohydrate (Whewellite) 80% Stone Weight 0.010 g This test was developed and its analytical performance characteristics have been determined by [employer]. It has not been cleared or approved by FDA. This assay has been validated pursuant to the CLIA regulations and is used for clinical purposes. THIS TEST WAS PERFORMED AT: [facility] [address] [place] [address] ARABELLA PAZ MD,PHD,ALYSHA Stone Source STONE Assessment & Plan Assessment & Plan (1) Renal calculus, right: Code(s): N20.0 - Calculus of kidney Category: Medical (2) Hydronephrosis due to obstruction of ureter: Code(s): N13.1 - Hydronephrosis with ureteral stricture, not elsewhere classified Category: Medical (3) Ureteral calculus, right: Code(s): N20.1 - Calculus of ureter Category: Medical Plan Plan The cystoscopy and ureteral stent removal were successfully completed, with the patient reporting symptom improvement. Follow-up with Dr. Dorsey is advised for ongoing nephrolithiasis and erectile dysfunction management. A renal ultrasound is scheduled for three months to monitor kidney health. Consent for today's procedure was obtained after discussing risks and benefits. Orders: Orders AMB Urinalysis Automated 10/31/24 N40.1 - Benign prostatic hyperplasia with lower urinary tract symptoms, N13.8 - Other obstructive and reflux uropathy AMB Cystoscopy 10/31/24 N20.0 - Calculus of kidney, N13.1 - Hydronephrosis with ureteral stricture, not elsewhere classified, N20.1 - Calculus of ureter Urine Culture 10/31/24 R35.1 - Nocturia Patient Instructions: Patient Instructions - Follow up with Dr. Dorsey as advised for nephrolithiasis and erectile dysfunction. - Stay hydrated and maintain dietary adjustments aimed at reducing calcium oxalate stone formation. - Report any symptoms of increased urinary frequency or discomfort immediately. - Attend the renal ultrasound appointment in three months. The patient had an opportunity to ask questions regarding treatment plan. The patient expressed understanding and agreement with the above treatment plan. The patient is aware they should contact our office by phone for worsening of their current condition or the appearance of new symptoms. Compliance is encouraged with any medications and followup testing that is ordered. It is a privilege to be allowed the opportunity to participate in the urologic care of your patient. If you have any questions or concerns regarding treatment for the above conditions please do not hesitate to contact me. The office telephone contact is [phone]. This note is constructed in part using voice recognition software. While every effort has been made to ensure accuracy furnace reliner errors may have been included. Yours sincerely, Mayda Rodriguez MD Scribe Plan - Not visible on output: Patient was informed and verbally consented to the use of an ambient scribe for clinic note documentation during this visit. Coding Level of Care Code Est Pt Level 3 (81490) Diagnoses Renal calculus, right N20.0 Hydronephrosis due to obstruction of ureter N13.1 Ureteral calculus, right N20.1 CPT Codes Cystoscopy - CPT: 13271-Iygutluews with stent removal ([id number])
--- OUTSIDE RECORDS SUMMARY | 2024-10-31 08:06 | XMS_ITS | Clinical Summary ---
Author Organization [employer] Address [address] [place] [address] 7 [place] [address] Care Team Providers Care Crepe Box Tender Name Role Phone Ashley Frankel MD Primary Care Provider [phone] Hoang November Unavailable Kishore Dorsey MD Unavailable Raheel Gee Unavailable [phone] Riya Fulton Unavailable Sergio Hackett Unavailable [...] complication, without long-term current use of insulin (CMS/[facility]) 1 each by Other route 2 [...] migh t be different from the original. [facility]opedist: Kamila, member services number [phone], provider services line, , option 4 [facility]: refused services Problem Noted Date Diagnosed [...] Removal 2021. New found mass on left judaism. - Referred to Plastic Surgery 07/16/24 Assessment & Plan (07/17/2024 10:23 AM EST): Removal 2021. New found mass on left judaism. - Referred to Plastic Surgery 07/16/24 Cardiac [...] due after 07/17/25 -eye care facilitated by [facility] -dental home is [facility] -health care proxy paperwork given 11/13/2023, given again 07/17/24 Assessment & Plan (07/17/2024 10:32 AM EST): -next physical exam due after 07/17/25 -eye care facilitated by [facility] -dental home is [facility] -health care proxy paperwork given 11/13/2023, given again 07/17/24 Assessment & Plan (11/13/2023 10:07 AM EDT): -next physical exam due after 04/27/2024 -eye care facilitated by [facility] -dental home is [facility] -health care proxy paperwork given 11/13/2023 Assessment & Plan (04/27/2023 9:45 AM EDT): -next physical exam due after 04/27/2024. -eye care facilitated by [facility], last visit 01/16/2023 -dental home is [facility] Class 1 obesity 02/24/2023 Erectile dysfunction [...] the strong evidence that these meds prevent MN/CVA. Continue atorvastatin 80qhs. Encouraged to take. Anxiety [...] CT May 2021 -CT 01/24/24 ordered by diesel service apprentice Dr. Raheel Gee MD, redemonstration of innumerable [...] tx for his neck. -Followed by [facility]. -Saw Dr. [...] tx for his neck. -Followed by [facility]. -Saw Dr. Evin Bhat at [facility] 02/2021 -referred to orthopedic on 11/13/2023 - [...] tx for his neck. -Followed by [facility]. -Saw Dr. Evin Bhat at [facility] 02/2021 -referred to orthopedic on 11/13/2023 [...] tx for his neck. Followed by [facility]. Saw Dr. Evin Bhat at [facility] 02/2021 Assessment & Plan (04/27/2023 9:22 [...] tx for his neck. Followed by [facility]. Saw Dr. Evin Bhat at [facility] 02/2021 Assessment & Plan (11/07/2022 11:31 [...] tx for his neck. Followed by [facility]. Saw Dr. Evin Bhat at [facility] 02/2021 Mild intermittent asthma 10/14/2021 Overview (08/21/2024): -Followed by Dr. Raheel Gee at [facility]. Note from 08/19/24 reviewed -Well [...] right ureteroscopy laser lithotripsy stent insertion, 6 Macedonian by [address] Mayda Rodriguez. [...] Encounters Date Type Department Care Team Description 10/28/2024 Telephone [facility] MED[facility] [address] [place] [address] Ashley Frankel MD 10/26/2024 9:20 AM EST Office Visit [facility] [address], [place] [phone] Bryan Coleman MD Acute right-sided low back pain with bilateral sciatica (Primary Dx); Nephrolithiasis; Constipation, unspecified constipation type 10/26/2024 Orders Only [facility] [address], [place] [phone] Bryan Coleman MD 10/24/2024 9:15 AM EST Office Visit [address] [address] Ashley Frankel MD Primary hypertension (Primary Dx); Weight loss, non-intentional; 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 ([facility]); Overweight; Dietary counseling; Exercise counseling; Dyslipidemia; Type 2 diabetes mellitus without complication, without long-term current use of insulin ([facility]); Pulmonary nodules 10/24/2024 Orders Only [facility] External Provider, [facility] 10/24/2024 Travel 10/17/[address] [address] Ashley Frankel MD 10/17/[address] [address] Ashley Frankel MD chartprep 10/10/2024 1:40 PM EST Office Visit [facility] [address] [address] Ashley Frankel MD Dysuria (Primary Dx); Dyslipidemia; Gastroesophageal reflux disease, unspecified whether esophagitis present; Benign prostatic hyperplasia with urinary obstruction; Anxiety 10/10/2024 Telephone [facility] [address] [address] Ashley Frankel MD 10/10/2024 Orders Only GENERIC EXTERNAL DATA DEPARTMENT Provider, Generic External Data 10/07/[address] [address] Ashley Frankel MD Nurse Triage 09/30/[address] [address] Aurora Alexandre, RN Results 09/30/2024 Orders Only [address] [address] Ashley Frankel MD Renal calculi (Primary Dx); Hydronephrosis, unspecified hydronephrosis type 09/28/2024 11:00 AM EST Office Visit [facility] [address] [address] Les Hay MD Constipation, unspecified constipation type (Primary Dx); Primary hypertension 09/28/2024 Travel 09/27/2024 11:00 AM EST Office Visit [facility] [address] [place] [phone] Malika Mac MD Other microscopic hematuria (Primary Dx); Acute bilateral low back pain without sciatica 09/27/[address] [address] Ashley Frankel MD Nurse Triage 09/18/[address] [address] Nisha Smith MD Allergic rhinitis, unspecified seasonality, unspecified trigger 09/17/[address] [address] Ashley Frankel MD 09/09/2024 Orders Only [facility] External Provider, [facility] Renal calculi (Primary Dx) 08/26/[address] [address] Ashley Frankel MD 08/14/2024 Orders Only GENERIC EXTERNAL DATA DEPARTMENT Provider, Generic External Data Abnormal CXR (Primary Dx) 08/13/2024 Orders Only GENERIC EXTERNAL DATA DEPARTMENT Provider, Generic External Data 08/12/2024 Travel 08/09/2024 8:30 AM EST Office Visit [facility] ADULT DENTAL [address] [place] [phone] Cook-Kimball, Naida, DDS Teeth missing (Primary Dx) 08/05/[address] [address] Kala Charles, NEETU September Recall 08/05/[address] [address] Ashley Frankel MD Appointment Request from Last 3 Months Immunizations Name Administration [...] Care Team (Late st Contact Info) Description 11/01/2024 9:00 AM EST Medication Management [facility] MED[facility] [address] [place] [phone] Dominga Silva, PharmD [address] [place] [phone] 12/09/2024 8:00 AM EDT Office Visit [facility] AD[facility] [address] [place] [phone] Jackie Peacock 01/23/2025 9:45 AM EDT Office Visit [facility] MEDICINE [address] [place] [address] Ashley Frankel MD [address] [place] [phone] Health Maintenance Due Date Last Done Comments [...] right-sided low back pain with bilateral sciatica CULTURE, URINE, ROUTINE Routine 10/27/19 9:30 AM EST HIGH SENSITIVITY TROPONIN I Routine 10/24/2024 4:58 [...] Routine 08/09/2024 8:30 AM EST Teeth missing PROPHYLAXIS - ADULT [...] TEST ENTER/EDIT OR DERABLES Final Result * Culture, Urine, Routine (10/26/2024 9:30 AM EST) Urine Urine specimen obtained by clean catch procedure / Unknown 10/26/2024 9:30 AM EST 10/26/2024 2:18 PM EST Comment:UACC Narrative [facility] - 10/28/2024 8:45 AM EST Urine Culture No growth. Specimen Source: Urine clean catch Bryan Coleman MD LAB MICROBIOLOGY - GENERAL ORDER MAN Final Result [facility] [address] [place] [phone] * High Sensitivity Troponin I (10/24/2024 4:58 PM EST) Only the most recent of5 resultswithin the time period is included. TROPONIN I HIGH SENSITIVITY 3.4 <3.5 - 35.0 ng/L [facility] Comment:The Schmidt high sens itivity Troponin-I results should beused in conjunction with other diagnostic information suchas ECG, clinical observations and information, and patientsymptoms to aid in the diagnosis of MN. 10/24/2024 4:58 PM EST 10/24/2024 5:02 PM EST us Generic External Data Provider LAB BLOOD ORDERAB LES Final Result [facility] [address] [place] [address] [phone] * (ABNORMAL) CBC auto differential (10/24/2024 2:30 PM EST) Only the most recent of5 resultswithin the time period is included. White Blood Count 5.1 4.8 - 10.8 X10*3/uL [facility] Red Blood Count 4.31(L) 4.60 - 5.80 X10*6/uL [facility] Hemoglobin 13.0(L) 14.0 - 18.0 g/dl [facility] Hematocrit 39.1(L) 42.0 - 52.0 % [facility] Mean Corpuscular Volume 90.7 80.0 - 98.0 fL [facility] Mean Corpuscular Hemoglobin 30.2 27.0 - 33.0 pg [facility] Mean Corpuscular HGB Conc 33.2 31.0 - 36.0 g/dl [facility] Red Cell Distribution Width 12.6 11.0 - 16.0 % [facility] Platelet Count 290 160 - 400 X10*3/uL [facility] Mean Platelet Volume 9.7 9.4 - 12.4 fL [facility] Neutrophils Percent Auto 68.7 45 - 73 % [facility] Imm Gran Pct Auto 0.2 0.0 - 0.4 % [facility] Lymphocytes Percent Auto 19.5(L) 20 - 40 % [facility] Monocytes Percent Auto 9.8 2 - 11 % [facility] Eosinophils Percent Auto 1.2 0 - 4 % [facility] Basophils Percent Auto 0.6 0 - 2 % [facility] NRBC Pct Auto 0.0 0.0 - 0.2 /100WBC [facility] Neutrophils Absolute Auto 3.5 2.0 - 8.3 x10*3/uL [facility] Imm Gran Abs Auto 0.01 0.00 - 0.03 X10*3/uL [facility] Lymphocytes Absolute Auto 1.0(L) 1.2 - 4.9 X10*3/uL [facility] Monocytes Absolute Auto 0.5 0.1 - 1.2 X10*3/uL [facility] Eosinophils Absolute Auto 0.1 0.0 - 0.4 X10*3/uL [facility] Basophils Absolute Auto 0.0 0.0 - 0.2 X10*3/uL [facility] NRBC Abs Auto 0.000 0.0 - 0.012 X10*3/uL [facility] 10/24/2024 2:30 PM EST 10/24/2024 2:33 PM EST us Generic External Data Provider LAB BLOOD ORDERAB LES Final Result Performing Organization Address City/[facility]/ZIP Co de Phone Number [facility] [address] [place] [phone] * Partial Thromboplastin Time, Activated (APTT) (10/24/2024 2:30 PM EST) Partial Thromboplastin Time 35.7 26.0 - 36.8 SEC [facility] Comment:For information rega rding the monitoring of direct thrombininhibitors, please refer to Pharmacy. 10/24/2024 2:30 PM EST 10/24/2024 2:33 PM EST Generic External Data Provider LAB BLOOD ORDERAB LES Final Result Performing Organization Address [facility]/ZIP Co de Phone Number [facility] [address] [place] [address] [phone] * Prothrombin Time-INR (10/24/2024 2:30 PM EST) Only the most recent of2 resultswithin the time period is included. Pathologist [facility] Prothrombin Time 10.9 10.9 - 12.4 SEC [facility] INTERNATIONAL NORM RATIO 0.9 0.9 - 1.1 [facility] Comment:INTERNATIONAL NORMAL IZED RATIO (INR) [...] Performing Organization Address [facility] Co de Phone Number [facility] [address] [place] [phone] * B Type Natriuretic Peptide (BNP) (10/24/2024 2:30 PM EST) [facility] B Type Natriuretic Peptide 32 <100 pg/mL [facility] Comment:For those patients w ho are being treated with Natrecor(nesiritide, recombinant BNP), BNP testing should beperformed at least two hours post treatment in order toensure that only endogenous levels of BNP are detected. 10/24/2024 2:30 PM EST 10/24/2024 2:33 PM EST [employer] External Data Provider LAB BLOOD ORDERAB LES Final Result Performing Organization Address [facility] Co de Phone Number [facility] [address] [place] [phone] * (ABNORMAL) Comprehensive Metabolic Panel (10/24/2024 2:30 PM EST) Only the most recent of3 resultswithin the time period is included. [facility] Sodium 141 135 - 145 mmol/L [facility] Potassium 3.8 3.3 - 5.1 mmol/L [facility] Chloride 108 96 - 108 mmol/L [facility] Carbon Dioxide 28 22 - 29 mmol/L [facility] Anion Gap 9(L) 12 - 20 [facility] Urea Nitrogen (BUN) 12 9 - 16 mg/dL [facility] Creatinine, Serum 0.91 0.5 - 1.4 mg/dL [facility] Creatinine Clr Calc Pharmacy 80.7 [facility] Comment:eGFR (calculated fro m the MDRD study equation) and eCrCl(calculated from the Cockcroft-Gault equation) are based ondifferent parameters and may not yield comparable results.If eCrCl result is absurd, please check patient'sheight/weight. Estimated Glomerular Filt Rate >60 [facility] Comment:Chronic Kidney Disea se: Estimated GFR < 60 mL/min/1.28b8Hdxcpn Kidney Disease: Estimated GFR < 15 mL/min/1.73m2 Glucose 197(H) 60 - 115 mg/dL [facility] Calcium 8.9 8.4 - 10.2 mg/dL [facility] Bilirubin, Total 0.7 0.0 - 1.0 mg/dL [facility] Aspartate Amino Transferase 22 5 - 37 U/L [facility] Alanine Aminotransferase 12 0 - 40 U/L [facility] Total Protein 6.8 6.5 - 8.0 g/dL [facility] Albumin Level 3.9 3.5 - 5.0 g/dL [facility] Alkaline Phosphatase 88 39 - 117 U/L [facility] 10/24/2024 2:30 PM EST 10/24/2024 2:33 PM EST us Generic External Data Provider LAB BLOOD ORDERAB LES Final Result [facility] [address] [place] [address] [phone] * XR Chest 1 View (10/24/2024 1:22 PM EST) Only the most recent of2 resultswithin the time period is included. Anatomical Region Laterality Modality Chest Radiographic Hannah ging 10/24/2024 1:22 PM EST Narrative 10/24/2024 1:45 PM EST ? [facility] ?[address] ?[place] [address] ?XRay Report ? Signed ? Patient: Krista,Bobby ?MR#: [id number] ? : 1965 ?Acct:[id number] ? Age/Sex: 59 / M ?ADM Date: 10/24/24 ? Loc: HO.ED ? Attending Dr: ? Ordering Physician: Alexy Yang ?? Date of Service: 10/24/24 ?? Procedure(s): XR chest 1V ?? Accession Number(s): [id number] ? cc: Alexy Yang; Ashley Frankel MD [...] DD/ 1322 ? TD/TT: 10/24/24 1336 ? Web Content Developer: ? Procedure Note Cesar Justice - 10/24/[address] [address] XRay Report Signed Patient: Bobby Velasco#: [id number] : 1965Acct:[id number] Age/Sex: 59 / MADM Date: 10/24/24 Loc: HO.ED Attending Dr: Ordering Physician: Alexy Yang Date of Service: 10/24/24 Procedure(s): XR chest 1V Accession Number(s): [id number] cc: Alexy Yang; Ashley Frankel MD EXAMINATION: [...] 10/24/24 1342 DD/ 1322 TD/TT: 10/24/24 1336 Web Content Developer: [facility] External Provider IMG XR PROCEDURES Final Result * Vitamin D, 25-Hydroxy, Total, Immunoassay (10/24/2024 9:22 AM EST) Vitamin D 25-OH Total 39.3 >30 ng/mL [facility] Comment:Health Based Referen ce Values*< 20 ng/mL Qxtpafljx90-97 ng/mL Insufficient> 30 ng/mL Sufficient*Colleen GILL. N [...] BLOOD ORDERABLES Final Result Performing Organization Address [facility]/ZIP Co de Phone Number [facility] [address] [place] [phone] * TSH W/Reflex to FT4 (10/24/2024 9:22 AM EST) TSH reflex Free T4 1.31 0.32 - 4.0 uIU/mL [facility] Blood Venous blood specimen / Unknown 10/24/2024 9:22 AM EST 10/24/2024 11:48 AM EST Ashley Frankel MD LAB BLOOD ORDERABLES Final Result Performing Organization Address [facility] de Phone Number [facility] [address] [place] [phone] * HIV-1/2 Antigen and Antibodies, Fourth Generation, with Reflexes (10/24/2024 9:22 AM EST) HIV AB/AG Nonreactive Nonreactive [facility] Comment:HIV-1 p24 Ag and/or HIV-1/HIV-2 Ab not detected.A test result that is nonreactive does not exclude thepossibility of exposure to or infection with HIV-1 and/orHIV-2. Nonreactive results in this assay for individualswith prior exposure to HIV-1 and/or HIV-2 may be due toantigen and antibody levels that are below the limit ofdetection of this assay.The [employer] HIV Ag/Ab Combo assay result andsupplemental assay results should be interpreted inconjunction with the patient's clinical presentation,history and other laboratory results. If the results areinconsistent with clinical evidence, additional testing issuggested to confirm the result. Blood Venous blood specimen / Unknown 10/24/2024 9:22 AM EST 10/24/2024 11:48 AM EST Ashley Frankel MD LAB BLOOD ORDERABLES Final Result Performing Organization Address [facility] Co de Phone Number [facility] [address] [place] [phone] * Lactate Dehydrogenase (LD) (10/24/2024 9:22 AM EST) Lactate Dehydrogenase 248 118 - 273 U/L [facility] Blood Venous blood specimen / Unknown 10/24/2024 9:22 AM EST 10/24/2024 11:48 AM EST Ashley Frankel MD LAB BLOOD ORDERABLES Final Result Performing Organization Address [facility] Phone Number [facility] [address] [place] [phone] * Lipase (10/10/2024 12:45 AM EST) Only the most recent of4 resultswithin the time period is included. Lipase 36 8 - 78 U/L [facility] 10/10/2024 12:4 5 AM EST 10/10/2024 12:47 AM EST Generic External Data Provider LAB BLOOD ORDERAB LES Final Result Performing Organization Address [facility] de Phone Number [facility] [address] [place] [phone] * FL Guidance in OR (10/01/2024 4:15 PM EST) Anatomical Region Laterality Modality X-Ray Angiograph y 10/01/2024 4:15 PM EST Narrative 10/02/2024 10:09 AM EST ? [facility] ?[address] ?[place] [address] ? Fluoroscopy Report ? Signed ? Patient: Krista,Bobby ?MR#: [id number] ? : 1965 ?Acct:[id number] ? Age/Sex: 59 / M ?ADM Date: 09/30/24 ? Loc: HO.S3 ?344-1 ? Attending Dr: Parveen Breen MD ? Ordering Physician: Mayda Rodriguez MD ?? Date of Service: 10/01/24 ?? Procedure(s): FL guidance in OR ?? Accession Number(s): [id number] ? cc: Mayda Rodriguez MD; Ashley Frankel [...] DD/ 1615 ? TD/TT: 10/01/24 1710 ? Web Content Developer: ? Procedure Note Cesar Justice - 10/02/[address] [address] Fluoroscopy Report Signed Patient: Pierce Velasco#: [id number] : 1965Acct:[id number] Age/Sex: 59 / MADM Date: 09/30/24 Loc: HO.S3 344-[address]: Parveen Breen MD Ordering Physician: Mayda Rodriguez MD Date of Service: 10/01/24 Procedure(s): FL guidance in OR Accession Number(s): [id number] cc: Mayda Rodriguez MD; Ashley Frankel MD [...] Patel MD 10/02/2024 10:06 AM EST Workstation: [id number] Dictated By: Harrison Patel MD Signed By: <Electronically signed by Harrison Patel MD in OV> 10/02/24 1006 DD/ 1615 TD/TT: 10/01/24 1710 Web Content Developer: [facility] External Provider IMG IR PROCEDURES Edited Result - Final * (ABNORMAL) Urinalysis, Complete, with Reflex to Culture (09/30/2024 4:26 PM EST) Only the most recent of2 resultswithin the time period is included. Color Urine Yellow [facility] Appearance Urine Clear [facility] PH 5.5 5.0 - 9.0 [facility] Glucose Urine UA Negative Negative mg/dL [facility] Urine Blood Negative Negative [facility] Specific [place] - Urine <=1.005 1.005 - 1.025 [facility] Urine Protein Negative Neg-Trace mg/dL [facility] Urine Ketones Trace Negative mg/dL [facility] Nitrite Urine Negative Negative [facility] Leukocyte Esterase Urine Trace(A) Negative [facility] RBC Urine 0-2 0 - 2 /HPF [facility] Urine WBC 0-5 0 - 5 /HPF [facility] Urine Squamous Epithelial Cell 0-2 0 - 2 /HPF [facility] Urine Bacteria None Seen None Seen [facility] Hyaline Casts, Urine 0-2 0 - 2 /LPF [facility] 09/30/2024 4:26 PM EST 09/30/2024 4:29 PM EST Narrative [facility] - 09/30/2024 4:46 PM EST [id number], Clean Catch Generic External Data Provider LAB URINE ORDERAB LES Final Result Performing Organization Address [facility]/ZIP Co de Phone Number [facility] [address] [place] [phone] * Magnesium (09/30/2024 4:26 PM EST) Only the most recent of3 resultswithin the time period is included. Magnesium 1.9 1.6 - 2.6 mg/dL [facility] 09/30/2024 4:26 PM EST 09/30/2024 4:29 PM EST Generic External Data Provider LAB BLOOD ORDERAB LES Final Result Performing Organization Address City/[facility] Co de Phone Number [facility] [address] [place] [phone] * Hepatic Function Panel (09/30/2024 4:26 PM EST) Only the most recent of3 resultswithin the time period is included. Bilirubin, Total 0.9 0.0 - 1.0 mg/dL [facility] Bilirubin, Direct 0.2 0.0 - 0.5 mg/dL [facility] Aspartate Amino Transferase 25 5 - 37 U/L [facility] Alanine Aminotransferase 12 0 - 40 U/L [facility] Total Protein 7.8 6.5 - 8.0 g/dL [facility] Albumin Level 4.5 3.5 - 5.0 g/dL [facility] Alkaline Phosphatase 94 39 - 117 U/L [facility] 09/30/2024 4:26 PM EST 09/30/2024 4:29 PM EST us Generic External Data Provider LAB BLOOD ORDERAB LES Final Result Performing Organization Address City/[facility]/ZIP Co de Phone Number [facility] [address] [place] [phone] [phone] * (ABNORMAL) Basic Metabolic Panel (09/30/2024 4:26 PM EST) Only the most recent of3 resultswithin the time period is included. Sodium 141 135 - 145 mmol/L [facility] Potassium 3.6 3.3 - 5.1 mmol/L [facility] Chloride 108 96 - 108 mmol/L [facility] Carbon Dioxide 25 22 - 29 mmol/L [facility] Anion Gap 12 12 - 20 [facility] Urea Nitrogen (BUN) 14 9 - 16 mg/dL [facility] Creatinine, Serum 0.93 0.5 - 1.4 mg/dL [facility] Creatinine Clr Calc Pharmacy 85.6 [facility] Comment:eGFR (calculated fro m the MDRD study equation) and eCrCl(calculated from the Cockcroft-Gault equation) are based ondifferent parameters and may not yield comparable results.If eCrCl result is absurd, please check patient'sheight/weight. Estimated Glomerular Filt Rate >60 [facility] Comment:Chronic Kidney Disea se: Estimated GFR < 60 mL/min/1.10v5Kdfidx Kidney Disease: Estimated GFR < 15 mL/min/1.73m2 Glucose 125(H) 60 - 115 mg/dL [facility] Calcium 9.6 8.4 - 10.2 mg/dL [facility] 09/30/2024 4:26 PM EST 09/30/2024 4:29 PM EST us Generic External Data Provider LAB BLOOD ORDERAB LES Final Result Performing Organization Address City/[facility]/ZIP Co de Phone Number [facility] [address] [place] [phone] * US Retroperitoneal Complete (09/30/2024 1:13 PM EST) Anatomical Region Laterality Modality Ultrasound 09/30/2024 1:13 PM EST Narrative 09/30/2024 1:13 PM EST ? [facility] ?[address] ?[place] [address] ? Ultrasound Report ? Signed ? Patient: Krista,Bobby ?MR#: [id number] ? : 1965 ?Acct:[id number] ? Age/Sex: 59 / M ?ADM Date: 09/30/24 ? Loc: HO.US ? Attending Dr: Malika Mac MD ? Ordering Physician: Malika Mac MD ?? Date of Service: 09/30/24 ?? Procedure(s): US retroperitoneal comp ?? Accession Number(s): [id number] ? cc: Ashley Frankel MD; Malika Mac [...] This document has been electronically signed by: Jnog Almendarez MD on ?? 09/30/2024 13:13:14 ? Dictated By: ?Jong Almendarez MD ? Signed By: ?<Electronically signed by Jong Almendarez MD in OV> ? 09/30/243 ? DD/ ? TD/TT: 09/30/243 ? Web Content Developer: ? Procedure Note Reshma, Image - 09/30/[address] [address] Ultrasound Report Signed Patient: Pierce Velasco#: [id number] : 1965Acct:[id number] Age/Sex: 59 / MADM Date: 09/30/24 Loc: HO.US Attending Dr: Malika Mac MD Ordering Physician: Malika Mac MD Date of Service: 09/30/24 Procedure(s): US retroperitoneal comp Accession Number(s): [id number] cc: Ashley Frankel MD; Malika Mac MD [...] 09/30/24 1313 DD/ 1313 TD/TT: 09/30/24 1313 Web Content Developer: us Malika Mac MD IMG US PROCEDURES Final Result * SARS-CoV-2 RNA, Influenza A/B, and RSV RNA, Ql NAAT (09/09/2024 11:01 AM EST) Influenza A PCR NEGATIVE Negative [facility] Influenza B PCR NEGATIVE Negative [facility] Resp Syncy Virus RNA Qual PCR NEGATIVE Negative [facility] SARS COV2 PCR NEGATIVE Negative [facility] Comment:All test results mus t [...] use by authorized laboratories.Testing performed on the [employer] GeneXpert utilizingreal-time RT-PCR.All SARS CoV2 and positive influenza A/B results arereported to [facility]. 09/09/2024 11:0 1 AM EST 09/09/2024 11:06 AM EST us Generic External Data Provider LAB MICROBIOLOGY - GENERAL ORDERABLES Final Result [facility] [address] [place] [address] [phone] * XR Chest 2 Views (09/09/2024 10:34 AM EST) Anatomical Region Laterality Modality Chest Radiographic Hannah ging 09/09/2024 10:3 4 AM EST Narrative 09/09/2024 11:06 AM EST ? [facility] ?[address] ?[place] [address] ?XRay Report ? Signed ? Patient: Krista,Bobby ?MR#: [id number] ? : 1965 ?Acct:[id number] ? Age/Sex: 59 / M ?ADM Date: 01/13/25 ? Loc: HO.ED ? Attending Dr: ? Ordering Physician: Deandra Reynolds DO ?? Date of Service: 09/09/24 ?? Procedure(s): XR chest 2V ?? Accession Number(s): [id number] ? cc: Ashley Frankel MD; Deandra Reynolds [...] 1034 ? TD/TT: 09/09/24 1045 ? Web Content Developer: ? Procedure Note Donotuseinterpreter, Image - 09/09/2024 [place] [address] XRay Report Signed Patient: Pierce Velasco#: [id number] : 1965Acct:[id number] Age/Sex: 59 / MADM Date: 09/09/24 Loc: .ED Attending Dr: Ordering Physician: Deandra Reynolds DO Date of Service: 09/09/24 Procedure(s): XR chest 2V Accession Number(s): [id number] cc: Ashley Frankel MD; Deandra Reynolds DO [...] 09/09/24 1103 DD/ 1034 TD/TT: 09/09/24 1045 Web Content Developer: [facility] External Provider IMG XR PROCEDURES Edited Result - Final * Albumin, Random Urine W/Creatinine (08/13/2024 11:26 AM EST) Creatinine, Urine 73.67 mg/dL [facility] Microalbumin Urine 13.0 mg/L [facility] Microalbum Creatinine Ratio Ur 17.6 <30 ug/mg cr [facility] Comment:Albumin/Creatinine R atio Reference Ranges: Normal: < 30 ug/mg creatinine Microalbuminuria: 30 - 300 ug/mg creatinineClinical Albuminuria: > 300 ug/mg creatinine Urine 08/13/2024 11:2 6 AM EST 08/13/2024 1:00 PM EST Ashley Frankel MD LAB URINE ORDERABLES Final Result Performing Organization Address City/State/[facility] Co de Phone Number [facility] [address] [place] [phone] * Testosterone, Total, males (Adult), [place] (08/13/2024 11:26 AM EST) Testosterone, Total 317 250 - 1100 ng/dL [facility] Comment:For additional infor mation, please refer tohttp://education.[employer]/faq/PrfucPvbzdsptcptjZWHFYTEUF051(This link is being provided for informational/educational purposes only.)This test was developed and its analytical performancecharacteristics have been determined by [employer] [place], [place]. It hasnot been cleared or approved by the U.S. Food and DrugAdministration. This assay has been validated pursuantto the CLIA regulations and is used for clinicalpurposes.THIS TEST WAS PERFORMED AT:[employer] [id number] [place] [address]UPNHWXUDANIELLE BOLTON MD,PHD 08/13/2024 11:2 6 AM EST 08/13/2024 12:59 PM EST us Generic External Data Provider LAB BLOOD ORDERAB LES Final Result Performing Organization Address [facility]/ZIP Co de Phone Number [facility] [address] [place] [phone] * PSA,Total (08/13/2024 11:26 AM EST) Prostate Specific Antigen 0.69 <0.05 - 4.0 ng/mL [facility] Comment:PSA methodology: Abb sukhwinder Alinity i ChemiluminescentMicroparticle Immunoassay (CMIA) 08/13/2024 11:2 6 AM EST 08/13/2024 12:59 PM EST Generic External Data Provider LAB BLOOD ORDERAB LES Final Result Performing Organization Address [facility] Co de Phone Number [facility] [address] [place] [phone] * (ABNORMAL) Hemoglobin A1c (08/13/2024 11:26 AM EST) Hemoglobin A1c 6.2(H) <6.0 % [facility] Comment:Hemoglobin A1C Refer ence Range Adults: 4.8 - 6.0 % Non diabetic: < 6.0 % Goal: < 7.0 %Additional Action Suggested: > 8.0 %Note: Hemoglobin A1c results are invalid for patients with abnormal amounts of HbF. Blood transfusions may impact the HbA1c concentration in the patient sample. Estimated Average Glucose 131 mg/dL [facility] Comment:eAG = Estimated ave rage glucose which is %A1C expressed asaverage glucose, using the formula of the C9T-LklshglJwhdssb Glucose study (ADAG), Diabetes Care, Vol.31,#8,Mar. 2007 Blood Venous blood specimen / Unknown 08/13/2024 11:26 AM EST 08/13/2024 12:59 PM EST us Ashley Frankel MD LAB BLOOD ORDERABLES Final Result Performing Organization Address [facility] Co de Phone Number [facility] [address] [place] [address] [phone] * (ABNORMAL) Lipid Panel, Standard (08/13/2024 11:26 AM EST) Triglycerides 86 <150 mg/dL [facility] Comment:Desirable Triglyceri de: less than 150 mg/dLBorderline High Triglyceride 150-199 mg/dLHigh Triglyceride: 200-499 mg/dLVery High Triglyceride: greater than or equal to 5OO mg/dL Cholesterol 146 <200 mg/dL [facility] Comment:Desirable Cholestero l: less than 200 mg/dLBorderline High Cholesterol: 200-239 mg/dLHigh Cholesterol: greater than 239 mg/dL LDL Cholesterol Calculated 96 <100 mg/dL [facility] Comment:Desirable LDL: less than 100 mg/dLNear Optimal/Above Optimal LDL: 110- 129 mg/dLBorderline High LDL: 130-159 mg/dLHigh LDL: 160-189 mg/dLVery High LDL: greater than or equal to 190 mg/dL HDL Cholesterol 33(L) >40 mg/dL [facility] Comment:Desirable HDL: great er than 40 mg/dL Note: This HDL assay may give artificially low results in patients with liver disease. Blood Venous blood specimen / Unknown 08/13/2024 11:26 AM EST 08/13/2024 12:59 PM EST Ashley Frankel MD LAB BLOOD ORDERABLES Final Result Performing Organization Address [facility]/ZIP Co de Phone Number [facility] [address] [place] [address] [phone] * Hm Colonoscopy (04/06/2023) Pathologist [facility] Colonoscopy Normal Normal Historical Provider HEALTH MAINTENANCE Final Result * Hepatitis C Antibody with Reflex to HCV, RNA, Quantitative, Real-Time PCR (11/11/2022 8:59 AM EDT) Pathologist [facility] Hepatitis C Antibody NON-REACT KELSY NON-REACT KELSY [employer] Index 0.64 <1.00 [employer] Comment: HCV antibody was non-reactive. There is no laboratory evidence of HCV infection. In most cases, no further action is required. However, if recent HCV exposure is suspected, a test for HCV RNA (test code 04646) is suggested. For additional information please refer to http://education.[employer]/faq/JPT33b5 (This link is being provided for informational/ educational purposes only.) Blood Venous blood specimen / Unknown 11/11/2022 8:59 AM EDT 11/11/2022 8:59 AM EDT Narrative [facility] - 11/11/2022 9:36 PM EDT FASTING:YES FASTING: YES us Ashlye Frankel MD LAB BLOOD ORDERABLES Final Result [facility] [address], [place] [address] [employer] [address] [place] [address] from Last 3 Months or Most Recently Relevant to Health Maintenance Insurance [facility] Care Teams Crepe Box Tender Relationship Specialty Start Date End Date Marlys, MD Ashley [address] [place] [address] PCP - General Family Medicine 08/28/18November [address] [place] [address] Gastroenterology 07/17/24 Kishore Dorsey MD [address] [place] [address] Urology 07/17/24 Raheel Gee 5 [place], [place] [address] Pulmonary Disease 07/17/24 Riya Fulton 11 [facility] [address] [place] [address] Cardiology 07/17/24 Sergio Hackett [address] [place] [address] Orthopaedic Surgery 07/17/24 Dominga Silva, AnanthD [address] [place] [address] Pharmacist Internal Medicine 07/22/24 De. [facility] Psychiatry 10/10/24
--- OUTSIDE RECORDS SUMMARY | 2024-10-31 08:06 | XMS_ITS | Encounter Summary ---
Author Organization [employer] Address [address] [facility] 7t [place] [address] Care Team Providers Care Clinical Office Technician Name Role Phone Ashley Frankel MD Primary Care Provider [phone] Viktor November Unavailable Kishore Dorsey MD Unavailable [phone] Raheel Gee Unavailable [phone] Riya Fulton Unavailable Sergio Hackett Unavailable Unavailable Dominga SilvaD Unavailable Reason for Visit * Reason Comments Back Pain Encounter Details Date Type Department Care Team (Late st Contact Info) Description 10/26/2024 9:20 AM EST Office Visit [facility] [address] [place] [address] [phone] Bryan Coleman MD [address] [place], [place] [phone] Acute right-sided low back pain with bilateral [...] 59 y.o. male who presents to Monday [facility] due to right lower back pain and [...] daily prn constipation Patient presents to Monday [facility] due to right lower back pain and [...] Description 11/01/2024 9:00 AM EST Medication Management [facility] [address] [place] [address] Dominga Silva PharmD [address] [place] [address] 12/09/2024 8:00 AM EDT Office Visit [facility] [address] [place] [address] Jackie Peacock 01/23/2025 9:45 AM EDT Office Visit [facility] [address] [place] [address] Ashley Frankel MD [address] [place] [address] Scheduled Orders Name Type Priority Associated Diagnoses [...] documented as of this encounter Care Teams Clinical Office Technician Relationship Specialty Start Date End Date Ashley Frankel MD [address] [place] [address] PCP - General Family Medicine 08/28/18November [address] [address] Gastroenterology 07/17/24 Kishore Dorsey MD 10 [facility] [address] [place] [address] Urology 07/17/24 Raheel Gee 5 [place] 10[address] Pulmonary Disease 07/17/24 Riya Fulton [address] [address] Cardiology 07/17/24 Sergio Hackett [address] [place] [address] Orthopaedic Surgery 07/17/24 Dominga iSlva PharmD [address] [place] [address] Pharmacist Internal Medicine 07/22/24 De. [facility] Psychiatry 10/10/24 documented as of this encounter
--- OUTSIDE RECORDS SUMMARY | 2024-10-31 08:06 | XMS_ITS | Encounter Summary ---
Author Organization [employer] Address [address] [place] [address] 7t [place] [address] Care Team Providers Care Stitching Department Supervisor Name Role Phone Ashley Frankel MD Primary Care Provider [phone] Viktor November Unavailable Kishore Dorsey MD Unavailable Raheel Gee Unavailable [phone] Riya Fulton Unavailable Sergio Hackett Unavailable Unavailable Dominga Silva PharmD Unavailable [phone] Reason for Visit * Reason Onset Date Comments Appointment Request 08/05/2024 Encounter Details Date Type Department Care Team (Late st Contact Info) Description 08/05/2024 Telephone [facility] [address] [place] [address] Ashley Frankel MD 230 [place] [address] Appointment Request Social History Tobacco [...] the past 12 months, has t he [employer], gas, oil or water [employer] threatened to shut off services in your [...] Description 11/01/2024 9:00 AM EST Medication Management [facility] [address] [place] [address] Dominga Silva, PharmD [address] [place] [address] 12/09/2024 8:00 AM EDT Office Visit [facility] [address] [place] [address] Jackie Peacock 01/23/2025 9:45 AM EDT Office Visit [facility] [address] [place] [address] Ashley Frankel MD [address] [place] [address] documented as of this encounter Visit Diagnoses Not on filedocumented in this encounter Additional Health Concerns Assessment Noted Time PHQ-9 Depression Total Score: 0 07/17/20 24 10:33 AM EST documented as of this encounter Care Teams Stitching Department Supervisor Relationship Specialty Start Date End Date Ashley Frankel MD [address] [place] [address] PCP - General Family Medicine 08/28/18November [address] 3rd [place] [address] Gastroenterology 07/17/24 Kishore Dorsey MD [address] [place] [address] Urology 07/17/24 Raheel Gee 5 [place], [place] 10[address] Pulmonary Disease 07/17/24 Riya Fulton [address] [facility] 3[address] [place] [address] Cardiology 07/17/24 Sergio Hackett [address] [place] [address] Orthopaedic Surgery 07/17/24 Dominga Silva, Mehrdad [address] [place] [address] Pharmacist Internal Medicine 07/22/24 De. [facility] Psych[facility] 10/10/24 documented as of this encounter
--- OUTSIDE RECORDS SUMMARY | 2024-10-31 08:07 | XMS_ITS | Encounter Summary ---
Author Organization [employer] Address [address] [place] [address] 7t [place] [address] Care Team Providers Care Precision Machinist Name Role Phone Ashley Frankel MD Primary Care Provider [phone] Viktor November Unavailable Kishore Dorsey MD Unavailable Raheel Gee Unavailable [phone] Riya Fulton Unavailable Sergio Hackett Unavailable Unavailable Dominga Silva PharmD Unavailable [phone] Encounter Details Date Type Department Care Team (Latest Contact Info) Description 07/04/2019 Abstract [facility] Dental, Provider, DDS Social History [...] Description 11/01/2024 9:00 AM EST Medication Management [facility] [address] [place], [place] [phone] Dominga Silva, PharmD [address] [place] [address] 12/09/2024 8:00 AM EDT Office Visit [facility] [address] [place] [address] Jackie Peacock 01/23/2025 9:45 AM EDT Office Visit [facility] [address] [place] [address] Ashley Frankel MD [address] [place] [address] documented as of this encounter Visit Diagnoses Not on filedocumented in this encounter Care Teams Precision Machinist Relationship Specialty Start Date End Date Ashley Frankel MD [address] [place] [address] PCP - General Family Medicine 08/28/18 Viktor November [address] [address] Gastroenterology 07/17/24 Kishore Dorsey MD 10 [facility] [address] [place] [address] Urology 07/17/24 Raheel Gee 5 [place], [place] 10[address] Pulmonary Disease 07/17/24 Riya Fulton [address] [address] Cardiology 07/17/24 Sergio Hackett [address] [place] [address] Orthopaedic Surgery 07/17/24 Dominga Silva, Mehrdad [address] [place] [address] Pharmacist Internal Medicine 07/22/24 [facility] 10/10/24 documented as of this encounter
--- OUTSIDE RECORDS SUMMARY | 2024-10-31 08:07 | XMS_ITS | Encounter Summary ---
Author Organization [employer] Address [address] [place] [address] 7t [place] [address] Care Team Providers Care Content Strategist Name Role Phone Ashley Frankel MD Primary Care Provider [phone] Viktor November Unavailable Kishore Dorsey MD Unavailable Raheel Gee Unavailable [phone] Riya Fulton Unavailable Sergio Hackett Unavailable Unavailable Dominga Silva PharmD Unavailable Reason for Visit * Reason Onset Date Comments Nurse Triage 10/07/2024 Encounter Details Date Type Department Care Team (Late st Contact Info) Description 10/07/2024 Telephone [facility] [address] [place] [address] Ashley Frankel MD [address] [place], [place] [phone] Nurse Triage Social History Tobacco Use Types [...] the past 12 months, has t he [employer], gas, oil or water [employer] threatened to shut off services in your [...] program as needed. Patient will call of [facility] to obtain follow up appt. Reviewed [...] caller accepted this outcome. Contact pt at [phone] documented in this encounter Plan of Treatment Upcoming Encounters Date Type Department Care Team (Late st Contact Info) Description 11/01/2024 9:00 AM EST Medication Management [facility]INE [address] [place] [address] Dominga Silva, PharmD [address] [place] [address] 12/09/2024 8:00 AM EDT Office Visit [facility] [address] [place] [address] Jackie Peacock 01/23/2025 9:45 AM EDT Office Visit [facility] [address] [place] [address] Ashley Frankel MD [address] [place] [address] documented as of this encounter Visit Diagnoses Not on filedocumented in this encounter Additional Health Concerns Assessment Noted Time PHQ-9 Depression Total Score: 0 07/17/20 24 10:33 AM EST documented as of this encounter Care Teams Content Strategist Relationship Specialty Start Date End Date Ashley Frankel MD [address] [place] [address] PCP - General Family Medicine 08/28/18 Sonya Hoang [address] 3rd [place] [address] Gastroenterology 07/17/24 Kishore Dorsey MD [address] [place] [address] Urology 07/17/24 Raheel Gee 5 [place], [place] 10[address] Pulmonary Disease 07/17/24 Riya Fulton [address] [place] [address] Cardiology 07/17/24 Sergio Hackett 300 [facility] [address]nd [place] [address] Orthopaedic Surgery 07/17/24 Dominga Silva, Mehrdad [address] [place] [address] Pharmacist Internal Medicine 07/22/24 documented as of this encounter
--- OUTSIDE RECORDS SUMMARY | 2024-10-31 08:07 | XMS_ITS | Encounter Summary ---
Author Organization [employer] Address [address] [place] [address] [address] [place] [address] Care Team Providers Care Managing Consultant Clinical Professor Name Role Phone Ashley Frankel MD Primary Care Provider [phone] Viktor November Unavailable Kishore Dorsey MD Unavailable Raheel Gee Unavailable [phone] Riya Fulton Unavailable Sergio Hackett Unavailable Unavailable Dominga Silva PharmD Unavailable Encounter Details Date Type Department Care Team (Late st Contact Info) Description 09/13/2022 Abstract [facility] [address] [place] [address] Ashley Frankel MD [address] [place] [address] Social History Tobacco Use Types Packs/Day Years [...] Description 11/01/2024 9:00 AM EST Medication Management [facility] [address] [place] [address] Dominga Silva, PharmD [address] [place] [address] 12/09/2024 8:00 AM EDT Office Visit [facility] [address] [place] [address] Jackie Peacock 01/23/2025 9:45 AM EDT Office Visit [facility] [address] [place] [address] Ashley Frankel MD [address] [place] [address] documented as of this encounter Procedures Procedure Name Priority Date/Time Associated Diagnosis Comments COLONOSCOPY Routine 09/06/2012 documented in this encounter Results * Colonoscopy (09/06/2012) Colonoscopy normal with Dr. Barrera Historical Provider [facility] Final Result documented in this encounter Visit Diagnoses Not on filedocumented in this encounter Care Teams Managing Consultant Clinical Professor Relationship Specialty Start Date End Date Ashley Frankel MD [address] [place] [address] PCP - General Family Medicine 08/28/18November 11 [facility] [address] [place] [address] Gastroenterology 07/17/24 Kishore Dorsey MD [address] [place] [address] Urology 07/17/24 Raheel Gee 5 [place], [place] 10[address] Pulmonary Disease 07/17/24 Riya Fulton 11 [facility] [address] [place] [address] Cardiology 07/17/24 Sergio Hackett [address]nd [place] [address] Orthopaedic Surgery 07/17/24 Dominga Silva, Mehrdad [address] [place] [address] Pharmacist Internal Medicine 07/22/24 [facility] 10/10/24 documented as of this encounter
--- OUTSIDE RECORDS SUMMARY | 2024-10-31 08:07 | XMS_ITS | Encounter Summary ---
Author Organization [employer] Address 75 [facility] 7t [place] [address] Care Team Providers Care Melt House Supervisor Name Role Phone Ashley Frankel MD Primary Care Provider [phone]- [phone] Viktor November Unavailable Kishore Dorsey MD Unavailable Raheel Gee Unavailable [phone] Riya [place]ulton Unavailable Sergio Hackett Unavailable Unavailable Dominga SilvaD Unavailable [phone] Encounter Details Date Type Department Care Team (Late st Contact Info) Description 10/10/2024 Telephone [facility] [address] [place], [place] [phone] Ashley Frankel MD [address] [place], [place] [phone] Social History Tobacco Use Types Packs/Day Years [...] PM EST Pt reports he was at [facility] and wants to know the lab results. documented in this encounter Plan of Treatment Upcoming Encounters Date Type Department Care Team (Late st Contact Info) Description 11/01/2024 9:00 AM EST Medication Management [facility] [address] [place] [address] Dominga Silva, AnanthD [address] [place] [address] 12/09/2024 8:00 AM EDT Office Visit [facility] ADULT DENTAL [address] [place] [address] Jackie Peacock 01/23/2025 9:45 AM EDT Office Visit [facility] [address] [place] [address] Ashley Frankel MD [address] [place] [address] documented as of this encounter Visit Diagnoses Not on filedocumented in this encounter Additional Health Concerns Assessment Noted Time PHQ-9 Depression Total Score: 0 07/17/20 10:33 AM EST documented as of this encounter Care Teams Melt House Supervisor Relationship Specialty Start Date End Date Ashley Frankel MD [address] [place] [address] PCP - General Family Medicine 08/28/[address] [place] [address] Gastroenterology 07/17/24 Kishore Dorsey MD [address] [place] [address] Urology 07/17/24 Raheel Gee 5 [place], [place] 1040 Pulmonary Disease 07/17/24 Riya Fulton 11 [facility] 3rd [place] [address] Cardiology 07/17/24 Sergio Hackett [facility] [address] [address] [place] [address] Orthopaedic Surgery 07/17/24 Dominga Silva PharmD [address] [place] [address] Pharmacist Internal Medicine 07/22/24 De. Dalal Psychiatry 10/10/24 documented as of this encounter
--- OUTSIDE RECORDS SUMMARY | 2024-10-31 08:07 | XMS_ITS | Encounter Summary ---
Author Organization [employer] Address 75 [facility] 7t [place] [address] Care Team Providers Care Hand Violin Maker Name Role Phone Ashley Frankel MD Primary Care Provider [phone]- [phone] Viktor November Unavailable Kishore Dorsey MD Unavailable Raheel Gee Unavailable [phone] Riya Fulton Unavailable Sergio Hackett Unavailable Unavailable Dominga Silva PharmD Unavailable Reason for Visit * Reason Comments Med Change Request Encounter Details Date Type Department Care Team (Late st Contact Info) Description 07/12/[address] [facility] 230 [place], [place] [phone] Ashley Frankel MD 230 [place], [place] [phone] Social History Tobacco Use Types Packs/Day Years [...] Description 11/01/2024 9:00 AM EST Medication Management [facility] [address] [place] [address] Dominga Silva, PharmD [address] [place] [address] 12/09/2024 8:00 AM EDT Office Visit [facility] ADULT DENTAL [address] [place] [address] Jackie Peacock 01/23/2025 9:45 AM EDT Office Visit [facility] [address] [place] [address] Ashley Frankel MD [address] [place] [address] documented as of this encounter Visit Diagnoses Not on filedocumented in this encounter Care Teams Hand Violin Maker Relationship Specialty Start Date End Date Ashley Frankel MD [address] [place] [address] PCP - General Family Medicine 08/28/18HoangNovember [address] 3rd [place] [address] Gastroenterology 07/17/24 Kishore Dorsey MD [address] [place] [address] Urology 07/17/24 Raheel Gee 5 [place], [place] 1040 Pulmonary Disease 07/17/24 Riya Fulton [address] 3rd [place] [address] Cardiology 07/17/24 Sergio Hackett 300 [facility] 2nd [place] [address] Orthopaedic Surgery 07/17/24 Dominga Silva, AnanthD 230 [place] [address] Pharmacist Internal Medicine 07/22/24 De. [facility] Psychiatry 10/10/24 documented as of this encounter
--- OUTSIDE RECORDS SUMMARY | 2024-10-31 08:07 | XMS_ITS | Encounter Summary ---
Author Organization [employer] Address 75 [facility] 7t [place] [address] Care Team Providers Care Submarine Worker Name Role Phone Ashley Frankel MD Primary Care Provider [phone]- [phone] Hoang, November Unavailable Kishore Dorsey MD Unavailable Raheel Gee Unavailable [phone] Riya [place] Unavailable Sergio Hackett Unavailable Unavailable Dominga Silva PharmD Unavailable Encounter Details Date Type Department Care Team (Late st Contact Info) Description 10/24/2024 Orders Only [facility] External Provider, [facility] Social History Tobacco Use Types Packs/Day [...] Description 11/01/2024 9:00 AM EST Medication Management [facility] MEDICINE [address] [place] [address] Dominga Silva PharmD [address] [place] [address] 12/09/2024 8:00 AM EDT Office Visit [facility] ADULT DENTAL [address] [place] [address] [phone] Jackie Peacock 01/23/2025 9:45 AM EDT Office Visit [facility] MED[facility] [address] [place] [address] Ashley Frankel MD [address] [place] [address] documented as of this encounter Procedures Procedure [...] HIGH SENSITIVITY 3.4 <3.5 - 35.0 ng/L [facility] Comment:The Schmidt high sens itivity Troponin-I results should beused in conjunction with other diagnostic information suchas ECG, clinical observations and information, and patientsymptoms to aid in the diagnosis of [place]. 10/24/2024 4:58 PM EST 10/24/2024 5:02 PM EST us Generic External Data Provider LAB BLOOD ORDERAB LES Final Result Performing Organization Address City/[facility]/ZIP Co de Phone Number [facility] [address] [place] [address] [phone] * High Sensitivity Troponin I (10/24/2024 2:30 PM EST) TROPONIN I HIGH SENSITIVITY 4.1 <3.5 - 35.0 ng/L [facility] Comment:The Schmidt high sens itivity Troponin-I results should beused in conjunction with other diagnostic information suchas ECG, clinical observations and information, and patientsymptoms to aid in the diagnosis of [place]. 10/24/2024 2:30 PM EST 10/24/2024 2:33 PM EST us Generic External Data Provider LAB BLOOD ORDERAB LES Final Result Performing Organization Address City/[facility]/ZIP Co de Phone Number [facility] [address] [place] [phone] * B Type Natriuretic Peptide (BNP) (10/24/2024 2:30 PM EST) B Type Natriuretic Peptide 32 <100 pg/mL [facility] Comment:For those patients w ho are being treated with Natrecor(nesiritide, recombinant BNP), BNP testing should beperformed at least two hours post treatment in order toensure that only endogenous levels of BNP are detected. 10/24/2024 2:30 PM EST 10/24/2024 2:33 PM EST us Generic External Data Provider LAB BLOOD ORDERAB LES Final Result [facility] [address] [place] [phone] * (ABNORMAL) Comprehensive Metabolic Panel (10/24/2024 2:30 PM EST) Sodium 141 135 - 145 mmol/L [facility] Potassium 3.8 3.3 - 5.1 mmol/L [facility] Chloride 108 96 - 108 mmol/L [facility] Carbon Dioxide 28 22 - 29 mmol/L [facility] Anion Gap 9(L) 12 - 20 [facility] Urea Nitrogen (BUN) 12 9 - 16 mg/dL [facility] Creatinine, Serum 0.91 0.5 - 1.4 mg/dL [facility] Creatinine Clr Calc Pharmacy 80.7 [facility] Comment:eGFR (calculated fro m the MDRD study equation) and eCrCl(calculated from the Cockcroft-Gault equation) are based ondifferent parameters and may not yield comparable results.If eCrCl result is absurd, please check patient'sheight/weight. Estimated Glomerular Filt Rate >60 [facility] Comment:Chronic Kidney Disea se: Estimated GFR < 60 mL/min/1.72h5Evmiqe Kidney Disease: Estimated GFR < 15 mL/min/1.73m2 Glucose 197(H) 60 - 115 mg/dL [facility] Calcium 8.9 8.4 - 10.2 mg/dL [facility] Bilirubin, Total 0.7 0.0 - 1.0 mg/dL [facility] Aspartate Amino Transferase 22 5 - 37 U/L [facility] Alanine Aminotransferase 12 0 - 40 U/L [facility] Total Protein 6.8 6.5 - 8.0 g/dL [facility] Albumin Level 3.9 3.5 - 5.0 g/dL [facility] Alkaline Phosphatase 88 39 - 117 U/L [facility] 10/24/2024 2:30 PM EST 10/24/2024 2:33 PM EST Generic External Data Provider LAB BLOOD ORDERAB LES Final Result Performing Organization Address [facility] Co de Phone Number [facility] [address] [place] [phone] * Partial Thromboplastin Time, Activated (APTT) (10/24/2024 2:30 PM EST) Partial Thromboplastin Time 35.7 26.0 - 36.8 SEC [facility] Comment:For information rega rding the monitoring of direct thrombininhibitors, please refer to Pharmacy. 10/24/2024 2:30 PM EST 10/24/2024 2:33 PM EST us Generic External Data Provider LAB BLOOD ORDERAB LES Final Result Performing Organization Address [facility] Co de Phone Number [facility] [address] [place] [phone] * Prothrombin Time-INR (10/24/2024 2:30 PM EST) Prothrombin Time 10.9 10.9 - 12.4 SEC [facility] INTERNATIONAL NORM RATIO 0.9 0.9 - 1.1 [facility] Comment:INTERNATIONAL NORMAL IZED RATIO [...] Provider LAB BLOOD ORDERAB LES Final Result [facility] [address] [place] [address] [phone] * (ABNORMAL) CBC auto differential (10/24/2024 2:30 PM EST) White Blood Count 5.1 4.8 - 10.8 X10*3/uL [facility] Red Blood Count 4.31(L) 4.60 - 5.80 X10*6/uL [facility] Hemoglobin 13.0(L) 14.0 - 18.0 g/dl [facility] Hematocrit 39.1(L) 42.0 - 52.0 % [facility] Mean Corpuscular Volume 90.7 80.0 - 98.0 fL [facility] Mean Corpuscular Hemoglobin 30.2 27.0 - 33.0 pg [facility] Mean Corpuscular HGB Conc 33.2 31.0 - 36.0 g/dl [facility] Red Cell Distribution Width 12.6 11.0 - 16.0 % [facility] Platelet Count 290 160 - 400 X10*3/uL [facility] Mean Platelet Volume 9.7 9.4 - 12.4 fL [facility] Neutrophils Percent Auto 68.7 45 - 73 % [facility] Imm Gran Pct Auto 0.2 0.0 - 0.4 % [facility] Lymphocytes Percent Auto 19.5(L) 20 - 40 % [facility] Monocytes Percent Auto 9.8 2 - 11 % [facility] Eosinophils Percent Auto 1.2 0 - 4 % [facility] Basophils Percent Auto 0.6 0 - 2 % [facility] NRBC Pct Auto 0.0 0.0 - 0.2 /100WBC [facility] Neutrophils Absolute Auto 3.5 2.0 - 8.3 x10*3/uL [facility] Imm Gran Abs Auto 0.01 0.00 - 0.03 X10*3/uL [facility] Lymphocytes Absolute Auto 1.0(L) 1.2 - 4.9 X10*3/uL [facility] Monocytes Absolute Auto 0.5 0.1 - 1.2 X10*3/uL [facility] Eosinophils Absolute Auto 0.1 0.0 - 0.4 X10*3/uL [facility] Basophils Absolute Auto 0.0 0.0 - 0.2 X10*3/uL [facility] NRBC Abs Auto 0.000 0.0 - 0.012 X10*3/uL [facility] 10/24/2024 2:30 PM EST 10/24/2024 2:33 PM EST us Generic External Data Provider LAB BLOOD ORDERAB LES Final Result Performing Organization Address City/State/[facility] Co de Phone Number [facility] [address] [place] [address] [phone] * XR Chest 1 View (10/24/2024 1:22 PM EST) Anatomical Region Laterality Modality Chest Radiographic Hannah ging 10/24/2024 1:22 PM EST Narrative 10/24/2024 1:45 PM EST ? [facility] ?[address] ?[place] [address] ?XRay Report ? Signed ? Patient: Krista,Bobby ?MR#: [id number] ? : 1965 ?Acct:[id number] ? Age/Sex: 59 / M ?ADM Date: 02/27/25 ? Loc: HO.ED ? Attending Dr: ? Ordering Physician: Alexy Yang ?? Date of Service: 10/24/24 ?? Procedure(s): XR chest 1V ?? Accession Number(s): [id number] ? cc: Alexy Yang; Ashley Frankel MD [...] DD/ 1322 ? TD/TT: 10/24/24 1336 ? Pitch Flaker: ? Procedure Note Donjacobter, Image - 10/24/2024 [place] [address] XRay Report Signed Patient: Pierce Velasco#: [id number] : 1965Acct:[id number] Age/Sex: 59 / MADM Date: 10/24/24 Loc: HO.ED Attending Dr: Ordering Physician: Alexy Yang Date of Service: 10/24/24 Procedure(s): XR chest 1V Accession Number(s): [id number] cc: Alexy Yang; Ashley Frankel MD EXAMINATION: [...] 10/24/24 1342 DD/ 1322 TD/TT: 10/24/24 1336 Pitch Flaker: [facility] External Provider IMG XR PROCEDURES Final Result documented in this encounter Visit Diagnoses Not on filedocumented in this encounter Additional Health Concerns Assessment Noted Time PHQ-9 Depression Total Score: 0 07/17/20 10:33 AM EST documented as of this encounter Care Teams Submarine Worker Relationship Specialty Start Date End Date Ashley Frankel MD [address] [place] [address] PCP - General Family Medicine 08/28/18November [address] [place] [address] Gastroenterology 07/17/24 Kishore Dorsey MD 10 [facility] [address] [place] [address] Urology 07/17/24 Raheel Gee 5 [place], [place] 1040 Pulmonary Disease 07/17/24 Riya Futlon [address] [place] [address] Cardiology 07/17/24 Sergio Hackett [address] [place] [address] Orthopaedic Surgery 07/17/24 Dominga Silva, Mehrdad [address] [place] [address] Pharmacist Internal Medicine 07/22/24 De. Dalal Psychiatry 10/10/24 documented as of this encounter
--- OUTSIDE RECORDS SUMMARY | 2024-10-31 08:07 | XMS_ITS | Encounter Summary ---
Author Organization [employer] Address 75 [facility] 7t [place] [address] Care Team Providers Care Insurance Follow Up Specialist Name Role Phone Ashley Frankel MD Primary Care Provider [phone] Viktor November Unavailable Kishore Dorsey MD Unavailable [phone] Raheel Gee Unavailable [phone] Riya Fulton Unavailable Sergio Hackett Unavailable Unavailable Dominga SilvaD Unavailable Encounter Details Date Type Department Care Team (Late st Contact Info) Description 10/26/2024 Orders Only [facility] MEDICINE 230 [place], [place] [phone] Bryan Coleman MD 230 [place], [place] [phone] Social History Tobacco Use Types Packs/Day Years [...] Description 11/01/2024 9:00 AM EST Medication Management [facility] MED[facility] [address] [place] [address] Dominga Silva PharmD [address] [place] [address] 12/09/2024 8:00 AM EDT Office Visit [facility] ADULT DENTAL [address] [place] [address] Jackie Peacock 01/23/2025 9:45 AM EDT Office Visit [facility] MED[facility] [address] [place] [address] Ashley Frankel MD [address] [place] [address] documented as of this encounter Procedures Procedure Name Priority Date/Time Associated Diagnosis Comments CULTURE, URINE, ROUTINE Routine 10/26/2024 9:30 AM EST documented in this encounter Results * Culture, Urine, Routine (10/26/2024 9:30 AM EST) Urine Urine specimen obtained by clean catch procedure / Unknown 10/26/2024 9:30 AM EST 10/26/2024 2:18 PM EST Comment:UACC Narrative [facility] - 10/28/2024 8:45 AM EST Urine Culture No growth. Specimen Source: Urine clean catch us Bryan Coleman MD LAB MICROBIOLOGY - GENERAL ORDER MAN Final Result [facility] [address] [place] [address] [phone] documented in this encounter Visit Diagnoses Not on filedocumented in this encounter Additional Health Concerns Assessment Noted Time PHQ-9 Depression Total Score: 0 07/17/20 10:33 AM EST documented as of this encounter Care Teams Insurance Follow Up Specialist Relationship Specialty Start Date End Date Ashley Frankel MD [address] [place] [address] PCP - General Family Medicine 08/28/18 Viktor November [address] [place] [address] Gastroenterology 07/17/24 Kishore Dorsey MD [address] [place] [address] Urology 07/17/24 Raheel Gee 5 [place], [place] 1040 Pulmonary Disease 07/17/24 Riya Fulton [address] [place] [address] Cardiology 07/17/24 Sergio Hackett [address] [place] [address] Orthopaedic Surgery 07/17/24 Dominga Silva, Mehrdad [address] [place] [address] Pharmacist Internal Medicine 07/22/24 De. [place] Psychiatry 10/10/24 documented as of this encounter
--- OUTSIDE RECORDS SUMMARY | 2024-10-31 08:07 | XMS_ITS | Encounter Summary ---
Author Organization [employer] Address [address] [place] [address] 7t [place] [address] Care Team Providers Care Baker Name Role Phone Ashley Frankel MD Primary Care Provider [phone] Viktor November Unavailable Kishore Dorsey MD Unavailable Raheel Gee Unavailable [phone] Riya Fulton Unavailable Sergio Hackett Unavailable Unavailable Dominga Silva PharmD Unavailable Encounter Details Date Type Department Care Team (Late st Contact Info) Description 07/25/2022 Abstract [facility] ADULT DENTAL [address] [place] [address] Dental, Provider, DDS Social History Tobacco Use [...] 11/01/2024 9:00 AM EST Medication Management [facility] MEDICINE [address] [place] [address] Dominga Silva, PharmD [address] [place] [address] 12/09/2024 8:00 AM EDT Office Visit [facility] ADULT DENTAL [address] [place] [address] Jackie Peacock 01/23/2025 9:45 AM EDT Office Visit [facility] MEDICINE [address] [place] [address] Ashley Frankel MD [address] [place] [address] documented as of this encounter Procedures Procedure [...] on filedocumented in this encounter Care Teams Baker Relationship Specialty Start Date End Date Ashley Frankel MD [address] [place] [address] PCP - General Family Medicine 08/28/18 Viktor Sonya 11 [facility] 3rd [place] [address] Gastroenterology 07/17/24 Kishore Dorsey MD [address] [place] [address] Urology 07/17/24 Raheel Gee 5 [facility] [place] 1040 Pulmonary Disease 07/17/24 Riya Fulton [address] 3rd [place] [address] Cardiology 07/17/24 Sergio Hackett [address] [facility] [address] 2nd [place] [address] Orthopaedic Surgery 07/17/24 Dominga Silva, Mehrdad [address] [place] [address] Pharmacist Internal Medicine 07/22/24 De. [facility] Psychiatry 10/10/24 documented as of this encounter
--- OUTSIDE RECORDS SUMMARY | 2024-10-31 08:07 | XMS_ITS | Encounter Summary ---
Author Organization [employer] Address 75 [facility] 7t [place] [address] Care Team Providers Care Textile Dyer Name Role Phone Ashley Frankel MD Primary Care Provider [phone] Viktor November Unavailable Kishore Dorsey MD Unavailable [phone] Raheel Gee Unavailable [phone] Riya Fulton Unavailable Sergio Hackett Unavailable Unavailable Dominga Silva PharmD Unavailable Reason for Visit * Reason Comments Difficulty Urinating Encounter Details Date Type Department Care Team (Late st Contact Info) Description 10/10/2024 1:40 PM EST Office Visit [facility] WALK[facility]IN CENTER [address] [place] [address] [phone] Ashley Frankel MD [address] [place], [place] [phone] Dysuria (Primary Dx); Dyslipidemia; Gastroesophageal reflux disease, [...] right ureteroscopy laser lithotripsy stent insertion, 6 [place] by [address] Mayda Rodriguez. [...] right ureteroscopy laser lithotripsy stent insertion, 6 [place] by [address] Mayda Rodriguez. [...] right ureteroscopy laser lithotripsy stent insertion, 6 [place] by [address] Mayda Rodriguez. [...] Description 11/01/2024 9:00 AM EST Medication Management [facility] MEDICINE [address] [place] [address] Dominga Silva PharmD [address] [place] [address] 12/09/2024 8:00 AM EDT Office Visit [facility] ADULT DENTAL [address] [place] [address] Jackie Peacock 01/23/2025 9:45 AM EDT Office Visit [facility] MEDICINE [address] [place] [address] Ashley Frankel MD [address] [place] [address] documented as of this encounter Visit Diagnoses Diagnosis Dysuria- Primary Dyslipidemia Other and unspecified hyperlipidemia Gastroesophageal reflux disease, unspecified whether esophagitis present Benign prostatic hyperplasia with urinary obstruction Anxiety Anxiety state, unspecified documented in this encounter Additional Health Concerns Assessment Noted Time PHQ-9 Depression Total Score: 0 07/17/20 10:33 AM EST documented as of this encounter Care Teams Textile Dyer Relationship Specialty Start Date End Date Ashley Frankel MD [address] [place] [address] PCP - General Family Medicine 08/28/18 Sonya Hoang [address] 3rd [place] [address] Gastroenterology 07/17/24 Kishore Dorsey MD [address] [place] [address] Urology 07/17/24 Raheel Gee 5 [place] 1040 Pulmonary Disease 07/17/24 Riya Fulton [address] [facility] 3rd [place] [address] Cardiology 07/17/24 Sergio Hacktet [address] [place] [address] Orthopaedic Surgery 07/17/24 Dominga Silva PharmD 230 [place] [address] Pharmacist Internal Medicine 07/22/24 De. [facility] 10/10/24 documented as of this encounter
--- OUTSIDE RECORDS SUMMARY | 2024-10-31 08:07 | XMS_ITS | Encounter Summary ---
Author Organization [email or web address] Address 75 [facility] 7t [place] [address] Care Team Providers Care Collector Of Aquarium Specimens Name Role Phone Ashley Frankel MD Primary Care Provider [phone]- [phone] Hoang, November Unavailable Kishore Dorsey MD Unavailable Raheel Gee Unavailable [phone] Riya Fulton Unavailable Sergio Hackett Unavailable Unavailable Dominga Silva PharmD Unavailable Encounter Details Date Type Department Care Team (Late st Contact Info) Description 07/18/2023 Telephone [facility] [address] [place], [place] [phone] Ashley Frankel MD [address] [place], [place] [phone] Social History Tobacco Use Types Packs/Day Years [...] Bia Rose - 08/10/2023 1:42 PM EST Birth Attendant called pt to request verification of insurance/Medicare [...] Description 11/01/2024 9:00 AM EST Medication Management [facility] [address] [place] [address] Dominga Silva, PharmD [address] [place] [address] 12/09/2024 8:00 AM EDT Office Visit [facility] ADULT DENTAL [address] [place] [address] Jackie Peacock 01/23/2025 9:45 AM EDT Office Visit [facility] [address] [place] [address] Ashley Frankel MD [address] [place] [address] documented as of this encounter Visit Diagnoses Not on filedocumented in this encounter Care Teams Collector Of Aquarium Specimens Relationship Specialty Start Date End Date Ashley Frankel MD [address] [place] [address] PCP - General Family Medicine 08/28/18 Viktor November [address]rd [place] [address] Gastroenterology 07/17/24 Kishore Dorsey MD [address] [place] [address] Urology 07/17/24 Raheel Gee 5 [place], [place] [address] Pulmonary Disease 07/17/24 Riya Fulton 11 [facility] 3rd [place] [address] Cardiology 07/17/24 Sergio Hackett [facility] [address] [place] [address] Orthopaedic Surgery 07/17/24 Dominga Silva PharmD [address] [place] [address] Pharmacist Internal Medicine 07/22/24 [facility] 10/10/24 documented as of this encounter
--- OUTSIDE RECORDS SUMMARY | 2024-10-31 08:07 | XMS_ITS | Encounter Summary ---
Author Organization [employer] Address 75 [facility] 7t [place] [address] Care Team Providers Care Asphalt Layer Name Role Phone Ashley Frankel MD Primary Care Provider [phone]- [phone] Viktor November Unavailable Kishore Dorsey MD Unavailable Raheel Gee Unavailable [phone] Riya Fulton Unavailable Sergio Hackett Unavailable Unavailable Dominga Silva PharmD Unavailable Encounter Details Date Type Department Care Team (Late st Contact Info) Description 10/17/2024 Telephone [facility] MEDICINE 230 [place], [place] [phone] Ashley Frankel MD [address] [place], [place] [phone] Social History Tobacco Use Types Packs/Day Years [...] Description 11/01/2024 9:00 AM EST Medication Management [facility] MED[facility]INE [address] [place] [address] Dominga Silva, PharmD [address] [place] [address] 12/09/2024 8:00 AM EDT Office Visit [facility] ADULT DENTAL [address] [place] [address] Jackie Peacock 01/23/2025 9:45 AM EDT Office Visit [facility] [address] [place] [address] Ashley Frankel MD [address] [place] [address] documented as of this encounter Visit Diagnoses Not on filedocumented in this encounter Additional Health Concerns Assessment Noted Time PHQ-9 Depression Total Score: 0 07/17/20 24 10:33 AM EST documented as of this encounter Care Teams Asphalt Layer Relationship Specialty Start Date End Date Ashley Frankel MD [address] [place] [address] PCP - General Family Medicine 08/28/18 Sonya Hoang [address] 3rd [place] [address] Gastroenterology 07/17/24 Kishore Dorsey MD [address] [place] [address] Urology 07/17/24 Raheel Gee 5 [place], [place] 1040 Pulmonary Disease 07/17/24 Riya Fulton 11 [facility] 3rd [place] [address] Cardiology 07/17/24 Sergio Hackett [address] [place] [address] Orthopaedic Surgery 07/17/24 Dominga Silva, AnanthD 230 [place] [address] Pharmacist Internal Medicine 07/22/24 [facility] 10/10/24 documented as of this encounter
--- OUTSIDE RECORDS SUMMARY | 2024-10-31 08:07 | XMS_ITS | Encounter Summary ---
Author Organization [employer] Address [address] [place] [address] 7t [place] [address] Care Team Providers Care Director Of Exhibit Development Name Role Phone Ashley Frankel MD Primary Care Provider [phone]- [phone] Viktor November Unavailable Kishore Dorsey MD Unavailable Raheel Gee Unavailable [phone] Riya Fulton Unavailable Sergio Hackett Unavailable Unavailable Dominga Silva PharmD Unavailable [phone] Encounter Details Date Type Department Care Team (Latest Contact Info) Description 06/08/2022 Abstract [facility] CONVERSIONS Dental, Provider, DDS Social [...] Description 11/01/2024 9:00 AM EST Medication Management [facility] MEDICINE 230 [place], [place] [phone] Dominga Silva, PharmD 230 [place] [address] 12/09/2024 8:00 AM EDT Office Visit [facility] ADULT DENTAL 230 [place] [address] Jackie Peacock 01/23/2025 9:45 AM EDT Office Visit [facility] 230 [place] [address] Ashley Frankel MD 230 [place] [address] documented as of this encounter Visit Diagnoses Not on filedocumented in this encounter Care Teams Director Of Exhibit Development Relationship Specialty Start Date End Date Ashley Frankel MD 230 [place] [address] PCP - General Family Medicine 08/28/18 Viktor November [address] [address] Gastroenterology 07/17/24 Kishore Dorsey MD 10 [facility] [address] [place] [address] Urology 07/17/24 Raheel Gee 5 [place], [place] 1040 Pulmonary Disease 07/17/24 Riya Fulton [address] [address] Cardiology 07/17/24 Sergio Hackett [address] [place] [address] Orthopaedic Surgery 07/17/24 Dominga Silva, Mehrdad 230 [place] [address] Pharmacist Internal Medicine 07/22/24 [facility] 10/10/24 documented as of this encounter
--- OUTSIDE RECORDS SUMMARY | 2024-10-31 08:07 | XMS_ITS | Encounter Summary ---
Author Organization [employer] Address 75 [facility] 7t [place] [address] Care Team Providers Care Geospatial Engineer Name Role Phone Ashley Frankel MD Primary Care Provider [phone]- [phone] Viktor November Unavailable Kishore Dorsey MD Unavailable Raheel Gee Unavailable [phone] Riya Fulton Unavailable Sergio Hackett Unavailable Unavailable Dominga Silva PharmD Unavailable Reason for Visit * Reason Onset Date Comments chartprep 10/17/2024 Encounter Details Date Type Department Care Team (Late st Contact Info) Description 10/17/2024 Telephone [facility] MED[facility]INE 230 [place] [address] Ashley Frankel MD 230 [place], [place] [phone] chartprep Social History Tobacco Use Types Packs/Day [...] the past 12 months, has t he [employer] gas, oil or water [employer] threatened to shut off services in your [...] Description 11/01/2024 9:00 AM EST Medication Management [facility] [address] [place] [address] Dominga Silva, PharmD 230 [place] [address] 12/09/2024 8:00 AM EDT Office Visit [facility] ADULT DENTAL 230 [place] [address] Jackie Peacock 01/23/2025 9:45 AM EDT Office Visit [facility] [address] [place] [address] Ashley Frankel MD 230 [place] [address] documented as of this encounter Visit Diagnoses Not on filedocumented in this encounter Additional Health Concerns Assessment Noted Time PHQ-9 Depression Total Score: 0 07/17/20 10:33 AM EST documented as of this encounter Care Teams Geospatial Engineer Relationship Specialty Start Date End Date Ashley Frankel MD 230 [place] [address] PCP - General Family Medicine 08/28/18November 11 [facility] 3rd [place] [address] Gastroenterology 07/17/24 Kishore Dorsey MD 10 [facility] [address] [place] [address] Urology 07/17/24 Raheel Gee 5 [place], [place] 1040 Pulmonary Disease 07/17/24 Riya Fulton [address] [address] Cardiology 07/17/24 Sergio Hackett [address] [place] [address] Orthopaedic Surgery 07/17/24 Dominga Silva, AnanthD 230 [place] [address] Pharmacist Internal Medicine 07/22/24 [facility] 10/10/24 documented as of this encounter
--- OUTSIDE RECORDS SUMMARY | 2024-10-31 08:07 | XMS_ITS | Encounter Summary ---
Author Organization [employer] Address [address] [place] [address] 7t [place] [address] Care Team Providers Care Physician Ophthalmologist Name Role Phone Ashley Frankel MD Primary Care Provider [phone]- [phone] Viktor November Unavailable Kishore Dorsey MD Unavailable Raheel Gee Unavailable [phone] Riya Fulton Unavailable Sergio Hackett Unavailable Unavailable Dominga Silva PharmD Unavailable [phone] Encounter Details Date Type Department Care Team (Late st Contact Info) Description 04/07/2023 Abstract [facility] MED[facility]INE [address] [place] [address] [phone] Ashley Frankel MD 230 [place], [place] [phone] Social History Tobacco Use Types Packs/Day Years [...] 9:00 AM EST Medication Management [facility] 230 [place] [address] Dominga Silva PharmD 230 [place] [address] 12/09/2024 8:00 AM EDT Office Visit [facility] ADULT DENTAL 230 [place] [address] Jackie Peacock 01/23/2025 9:45 AM EDT Office Visit [facility] MEDICINE 230 [place] [address] Ashley Frankel MD 230 [place] [address] documented as of this encounter Procedures Procedure Name Priority Date/Time Associated Diagnosis Comments COLONOSCOPY Routine 04/06/2023 documented in this encounter Results * Colonoscopy (04/06/2023) [facility] Signature Colonoscopy Normal Normal Historical Provider HEALTH MAINTENANCE Final Result documented in this encounter Visit Diagnoses Not on filedocumented in this encounter Care Teams Physician Ophthalmologist Relationship Specialty Start Date End Date Ashley Frankel MD 230 [place] [address] PCP - General Family Medicine 08/28/18HoangNovember [address] 3rd [place] [address] Gastroenterology 07/17/24 Kishore Dorsey MD [address] [place] [address] Urology 07/17/24 Raheel Gee 5 [place], [place] 10[address] Pulmonary Disease 07/17/24 Riya Fulton [address] 3rd [place] [address] Cardiology 07/17/24 Sergio Hackett [address] [place] [address] Orthopaedic Surgery 07/17/24 Dominga Silva, Mehrdad 230 [place] [address] Pharmacist Internal Medicine 07/22/24 [facility] Psych[facility] 10/10/24 documented as of this encounter
--- OUTSIDE RECORDS SUMMARY | 2024-10-31 08:07 | XMS_ITS | Encounter Summary ---
Author Organization [employer] Address 75 [facility] 7t [place] [address] Care Team Providers Care Transfer Car Operator Drier Name Role Phone Ashley Frankel MD Primary Care Provider [phone]- [phone] Hoang, November Unavailable Kishore Dorsey MD Unavailable Raheel Gee Unavailable [phone] Riya Fulton Unavailable Sergio Hackett Unavailable [...] Description 11/01/2024 9:00 AM EST Medication Management [facility] MED[facility] [address] [place] [address] Dominga Silva PharmD [address] [place] [address] 12/09/2024 8:00 AM EDT Office Visit [facility] ADULT DENTAL [address] [place] [address] Jackie Peacock 01/23/2025 9:45 AM EDT Office Visit [facility] MEDICINE [address] [place] [address] Ashley Frankel MD 230 [place] [address] documented as of this encounter Procedures Procedure Name Priority Date/Time Associated Diagnosis Comments CBC WITH AUTO DIFFERENTIAL Routine 10/10/2024 12:45 AM EST LIPASE Routine 10/10/2024 12:45 AM EST COMPREHENSIVE METABOLIC PANEL Routine 10/10/2024 12:45 AM EST documented in this encounter Results * Lipase (10/10/2024 12:45 AM EST) Lipase 36 8 - 78 U/L [facility] 10/10/2024 12:4 5 AM EST 10/10/2024 12:47 AM EST us Generic External Data Provider LAB BLOOD ORDERAB LES Final Result [facility] [address] [place] [address] [phone] * (ABNORMAL) Comprehensive Metabolic Panel (10/10/2024 12:45 AM EST) Sodium 141 135 - 145 mmol/L [facility] Potassium 3.8 3.3 - 5.1 mmol/L [facility] Chloride 106 96 - 108 mmol/L [facility] Carbon Dioxide 26 22 - 29 mmol/L [facility] Anion Gap 13 12 - 20 [facility] Urea Nitrogen (BUN) 16 9 - 16 mg/dL [facility] Creatinine, Serum 1.02 0.5 - 1.4 mg/dL [facility] Creatinine Clr Calc Pharmacy 72.0 [facility] Comment:eGFR (calculated fro m the MDRD study equation) and eCrCl(calculated from the Cockcroft-Gault equation) are based ondifferent parameters and may not yield comparable results.If eCrCl result is absurd, please check patient'sheight/weight. Estimated Glomerular Filt Rate >60 [facility] Comment:Chronic Kidney Disea se: Estimated GFR < 60 mL/min/[id number] Kidney Disease: Estimated GFR < 15 mL/min/1.73m2 Glucose 173(H) 60 - 115 mg/dL [facility] Calcium 9.6 8.4 - 10.2 mg/dL [facility] Bilirubin, Total 0.5 0.0 - 1.0 mg/dL [facility] Aspartate Amino Transferase 21 5 - 37 U/L [facility] Alanine Aminotransferase 14 0 - 40 U/L [facility] Total Protein 7.3 6.5 - 8.0 g/dL [facility] Albumin Level 4.1 3.5 - 5.0 g/dL [facility] Alkaline Phosphatase 92 39 - 117 U/L [facility] 10/10/2024 12:4 5 AM EST 10/10/2024 12:47 AM EST us Generic External Data Provider LAB BLOOD ORDERAB LES Final Result [facility] [address], [place] [phone] * (ABNORMAL) CBC auto differential (10/10/2024 12:45 AM EST) White Blood Count 6.5 4.8 - 10.8 X10*3/uL [facility] Red Blood Count 4.40(L) 4.60 - 5.80 X10*6/uL [facility] Hemoglobin 13.6(L) 14.0 - 18.0 g/dl [facility] Hematocrit 38.7(L) 42.0 - 52.0 % [facility] Mean Corpuscular Volume 88.0 80.0 - 98.0 fL [facility] Mean Corpuscular Hemoglobin 30.9 27.0 - 33.0 pg [facility] Mean Corpuscular HGB Conc 35.1 31.0 - 36.0 g/dl [facility] Red Cell Distribution Width 12.7 11.0 - 16.0 % [facility] Platelet Count 275 160 - 400 X10*3/uL [facility] Mean Platelet Volume 10.0 9.4 - 12.4 fL [facility] Neutrophils Percent Auto 60.1 45 - 73 % [facility] Imm Gran Pct Auto 0.2 0.0 - 0.4 % [facility] Lymphocytes Percent Auto 25.9 20 - 40 % [facility] Monocytes Percent Auto 11.3(H) 2 - 11 % [facility] Eosinophils Percent Auto 1.9 0 - 4 % [facility] Basophils Percent Auto 0.6 0 - 2 % [facility] NRBC Pct Auto 0.0 0.0 - 0.2 /100WBC [facility] Neutrophils Absolute Auto 3.9 2.0 - 8.3 x10*3/uL [facility] Imm Gran Abs Auto 0.01 0.00 - 0.03 X10*3/uL [facility] Lymphocytes Absolute Auto 1.7 1.2 - 4.9 X10*3/uL [facility] Monocytes Absolute Auto 0.7 0.1 - 1.2 X10*3/uL [facility] Eosinophils Absolute Auto 0.1 0.0 - 0.4 X10*3/uL [facility] Basophils Absolute Auto 0.0 0.0 - 0.2 X10*3/uL [facility] NRBC Abs Auto 0.000 0.0 - 0.012 X10*3/uL [facility] 10/10/2024 12:4 5 AM EST 10/10/2024 12:47 AM EST us Generic External Data Provider LAB BLOOD ORDERAB LES Final Result [facility] [address] [place] [address] [phone] documented in this encounter Visit Diagnoses Not on filedocumented in this encounter Additional Health Concerns Assessment Noted Time PHQ-9 Depression Total Score: 0 07/17/20 10:33 AM EST documented as of this encounter Care Teams Transfer Car Operator Drier Relationship Specialty Start Date End Date Ashley Frankel MD [address] [place] [address] PCP - General Family Medicine 08/28/18November [address] 3rd [place] [address] Gastroenterology 07/17/24 Kishore Dorsey MD [address] [place] [address] Urology 07/17/24 Raheel Gee [address] [place] [address] Pulmonary Disease 07/17/24 Riya Fulton 11 [facility] 3rd [place] [address] Cardiology 07/17/24 Sergio Hackett [address] [place] [address] Orthopaedic Surgery 07/17/24 Dominga Silva, AnanthD [address] [place] [address] Pharmacist Internal Medicine 07/22/24 [facility] 10/10/24 documented as of this encounter
--- OUTSIDE RECORDS SUMMARY | 2024-10-31 08:07 | XMS_ITS | Clinical Summary ---
Author Organization 175 [facility] Address [address] [place] [address] Phone Care Team Providers Care Fire Control Technician G Name Role Phone Ashley Frankel MD Primary Care Provider [phone] Allergies Active Allergy Reactions Criticality Noted Date [...] AM EST - 10/12/2024 9:[address] [facility] Emergency [address] [place] [address] Smith Quan MD Urinary tract infection with [...] 10:45 AM EDT Consult Orthopedic Surgery - [place] [address] 175 [facility] [address] [place] [phone] Raheel Slater DPM [address] [address] Health Maintenance Due Date Last Done Comments [...] PM EST) WBC 7.7 4.8 - 10.8 /[facility] LAB HEMETOLOGY METHOD 10/12/2024 12:01 AM [facility] RBC 4.60 4.50 - 5.50 M/mcL LAB HEMETOLOGY METHOD 10/12/2024 12:01 AM [facility] Hemoglobin 14.1 13.5 - 17.5 g/dL LAB HEMETOLOGY METHOD 10/12/2024 12:01 AM [facility] LAB Hematocrit 42.7 42.0 - 54.0 % LAB HEMETOLOGY METHOD 10/12/2024 12:01 AM [facility] LAB MCV 92.2 79.0 - 98.0 FL LAB HEMETOLOGY METHOD 10/12/2024 12:01 AM [facility] LAB MCH 30.5 27.0 - 32.0 pcg LAB HEMETOLOGY METHOD 10/12/2024 12:01 AM [facility] MCHC 33.0 32.0 - 37.0 g/dL LAB HEMETOLOGY METHOD 10/12/2024 12:01 AM [facility] RDW 12.8 11.0 - 15.0 % LAB HEMETOLOGY METHOD 10/12/2024 12:01 AM [facility] Platelets 327 130 - 400 K/[facility] LAB HEMETOLOGY METHOD 10/12/2024 12:01 AM [facility] MPV 10.4 7.0 - 11.0 FL LAB HEMETOLOGY METHOD 10/12/2024 12:01 AM [facility] LAB NRBC 0.0 <1.0 % LAB HEMETOLOGY METHOD 10/12/2024 12:01 AM [facility] LAB NRBC Absolute 0.00 <0.10 K/mcL LAB HEMETOLOGY METHOD 10/12/2024 12:01 AM [facility] Neutrophils Relative 66.8 % LAB HEMETOLOGY METHOD 10/12/2024 12:01 AM [facility] Lymphocytes Relative 21.5 % LAB HEMETOLOGY METHOD 10/12/2024 12:01 AM [facility] Monocytes Relative 9.6 % LAB HEMETOLOGY METHOD 10/12/2024 12:01 AM [facility] Eosinophils Relative 1.2 % LAB HEMETOLOGY METHOD 10/12/2024 12:01 AM [facility] Basophils Relative 0.4 % LAB HEMETOLOGY METHOD 10/12/2024 12:01 AM [facility] Immature Granulocytes Relative 0.5 % LAB HEMETOLOGY METHOD 10/12/2024 12:01 AM [facility] Neutrophils Absolute 5.12 1.50 - 7.00 K/mcL LAB HEMETOLOGY METHOD 10/12/2024 12:01 AM [facility] Lymphocytes Absolute 1.65 1.00 - 5.00 K/mcL LAB HEMETOLOGY METHOD 10/12/2024 12:01 AM [facility] Monocytes Absolute 0.74 0.20 - 1.00 K/mcL LAB HEMETOLOGY METHOD 10/12/2024 12:01 AM [facility] Eosinophils Absolute 0.09 0.00 - 0.50 K/mcL LAB HEMETOLOGY METHOD 10/12/2024 12:01 AM [facility] Basophils Absolute 0.03 0.00 - 0.20 K/mcL LAB HEMETOLOGY METHOD 10/12/2024 12:01 AM [facility] Immature Granulocytes Absolute 0.04(H) 0.00 - 0.03 K/mcL LAB HEMETOLOGY METHOD 10/12/2024 12:01 AM [facility] Blood Venous blood specimen / Unknown Venipuncture / Unknown 10/11/2024 11:18 PM EST 10/11/2024 11:44 PM EST us Smith Quan MD LAB BLOOD ORDERABLES Final Result [facility] [address] [place] [address], * (ABNORMAL) Comprehensive metabolic panel (10/11/2024 11:18 PM EST) Sodium 138 133 - 145 mmol/L LAB CHEMISTRY METHOD 10/12/2024 12:38 AM [facility] Potassium 4.3 3.5 - 5.5 mmol/L LAB CHEMISTRY METHOD 10/12/2024 12:38 AM [facility] Chloride 107 96 - 110 mmol/L LAB CHEMISTRY METHOD 10/12/2024 12:38 AM [facility] CO2 30 21 - 32 mmol/L LAB CHEMISTRY METHOD 10/12/2024 12:38 AM [facility] Anion Gap 1(L) 3 - 11 LAB CHEMISTRY METHOD 10/12/2024 12:38 AM [facility] Glucose 126(H) 70 - 100 mg/dL LAB CHEMISTRY METHOD 10/12/2024 12:38 AM [facility] BUN 15 5 - 25 mg/dL LAB CHEMISTRY METHOD 10/12/2024 12:38 AM [facility] Creatinine 1.15 0.70 - 1.30 mg/dL LAB CHEMISTRY METHOD 10/12/2024 12:38 AM [facility] LAB eGFR 73 >=60 mL/min/1. 73m2 LAB CHEMISTRY METHOD 10/12/2024 12:38 AM [facility] Comment:Calculation based on the??Chronic Kidney Disease Epidemiology Collaboration (CKD-EPI) equation refit??without adjustment for race. BUN/Creatinine Ratio 13.0 LAB CHEMISTRY METHOD 10/12/2024 12:38 AM [facility] Calcium 9.8 8.5 - 10.5 mg/dL LAB CHEMISTRY METHOD 10/12/2024 12:38 AM [facility] AST (SGOT) 24 10 - 42 unit/L LAB CHEMISTRY METHOD 10/12/2024 12:38 AM [facility] ALT (SGPT) 22 10 - 60 unit/L LAB CHEMISTRY METHOD 10/12/2024 12:38 AM [facility] Alkaline Phosphatase 100 42 - 121 unit/L LAB CHEMISTRY METHOD 10/12/2024 12:38 AM [facility] Total Protein 6.9 6.0 - 8.0 g/dL LAB CHEMISTRY METHOD 10/12/2024 12:38 AM [facility] Albumin 3.9 3.2 - 5.0 g/dL LAB CHEMISTRY METHOD 10/12/2024 12:38 AM [facility] Total Bilirubin 0.6 0.0 - 1.4 mg/dL LAB CHEMISTRY METHOD 10/12/2024 12:38 AM [facility] Blood Venous blood specimen / Unknown Venipuncture / Unknown 10/11/2024 11:18 PM EST 10/11/2024 11:44 PM EST us Smith Quan MD LAB BLOOD ORDERABLES Final Result [facility] [address] [place] [address], * (ABNORMAL) Urinalysis with reflex microscopic and culture (10/11/2024 10:34 PM EST) Specific [place] Urine 1.014 1.003 - 1.030 LAB URINALYSIS - AUTOMATED METHOD 10/12/2024 6:50 AM [facility] pH, Urine 5.5 5.0 - 8.0 pH LAB URINALYSIS - AUTOMATED METHOD 10/12/2024 6:50 AM [facility] Leukocytes, Urine Moderate(A) Negative LAB URINALYSIS - AUTOMATED METHOD 10/12/2024 6:50 AM [facility] Nitrite, Urine Positive(A) Negative LAB URINALYSIS - AUTOMATED METHOD 10/12/2024 6:50 AM [facility] Protein, Urine 300(A) <=Trace mg/dL LAB URINALYSIS - AUTOMATED METHOD 10/12/2024 6:50 AM [facility] Glucose, Urine Negative Negative mg/dL LAB URINALYSIS - AUTOMATED METHOD 10/12/2024 6:50 AM [facility] Ketones, Urine Negative Negative mg/dL LAB URINALYSIS - AUTOMATED METHOD 10/12/2024 6:50 AM [facility] Urobilinogen, Urine 1.0 0.2 - 1.0 mg/dL LAB URINALYSIS - AUTOMATED METHOD 10/12/2024 6:50 AM [facility] Bilirubin, Urine Small(A) Negative LAB URINALYSIS - AUTOMATED METHOD 10/12/2024 6:50 AM [facility] Blood, Urine Large(A) Negative LAB URINALYSIS - AUTOMATED METHOD 10/12/2024 6:50 AM [facility] RBC, Urine 1,724.4(H) 0 - 4 /HPF LAB URINALYSIS - AUTOMATED METHOD 10/12/2024 6:50 AM [facility] Comment:This is an appended report. These results have been appended to a previously preliminary verified report. WBC, Urine 48.9(H) 0 - 4 /HPF LAB URINALYSIS - AUTOMATED METHOD 10/12/2024 6:50 AM [facility] Comment:This is an appended report. These results have been appended to a previously preliminary verified report. Squamous Epithelial, Urine >100(H) 0 - 60 /LPF LAB URINALYSIS - AUTOMATED METHOD 10/12/2024 6:50 AM [facility] Comment:This is an appended report. These results have been appended to a previously preliminary verified report. Crystals, Urine LT CALCIUM OXALATE /LPF LAB URINALYSIS - AUTOMATED METHOD 10/12/2024 6:50 AM EST [facility] Comment:Corrected result: Pr eviously reported on 10/11/2024 at 2351 EST. Bacteria, Urine Negative Negative /HPF LAB URINALYSIS - AUTOMATED METHOD 10/12/2024 6:50 AM [facility] Comment: Edited result: Previously reported as Negative /HPF on 10/11/2024 at 2351 EST. This is an appended report. ??These results have been appended to a previously final verified report. Hyaline Casts, Urine 13.6(H) 0 - 3 /LPF LAB URINALYSIS - AUTOMATED METHOD 10/12/2024 6:50 AM EST [facility] Comment:This is an appended report. These results have been appended to a previously preliminary verified report. Urine Urine specimen obtained by clean catch procedure / Unknown Non-blood Collection / Unknown 10/11/2024 10:34 PM EST 10/11/2024 11:07 PM EST Smith Quan MD LAB URINE ORDERABLES Edited Result - Final Performing Organization Address [facility]/ZIP Co de Phone Number [facility] [address] [place] [address], [place] [phone] * Carlin urine culture tube (10/11/2024 10:34 PM EST) Extra Tube Hold for add-ons. 10/12/2024 1:11 AM EST [facility] Comment:Auto resulted. Urine Urine specimen obtained by clean catch procedure / Unknown Non-blood Collection / Unknown 10/11/2024 10:34 PM EST 10/11/2024 11:07 PM EST Smith Quan MD LAB URINE ORDERABLES Final Result Performing Organization Address [facility]/ZIP Co de Phone Number [facility] [address] [place] [address], [place] [phone] * Culture urine (10/11/2024 10:34 PM EST) Culture, Urine No growth 10/13/2024 10:54 AM EST [facility] ([email or web address] Urine Urine specimen obtained by clean catch procedure / Unknown Non-blood Collection / Unknown 10/11/2024 10:34 PM EST 10/11/2024 11:52 PM EST us Smith Quan MD LAB MICROBIOLOGY - GENERAL ORDERABLES Final Result [facility] ([facility] [[email or web address] [address] [place] [address], [place] [phone] from Last 3 Months Insurance , [address] [address] [facility] [employer] Member Subscriber Plan / Payer (Ef fective 2023-Present) Name:Bobby Velasco Relation to Subscriber:Self Name:Bobby Velasco Payer ID:[id number] Group ID:[id number] Type:Not on file Address: [place] [address] [address] [address] Care Teams Fire Control Technician G Relationship Specialty Start Date End Date Marlys, MD Ashley [address] [place] [phone] PCP - General Family Medicine 08/09/24
--- OUTSIDE RECORDS SUMMARY | 2024-10-31 08:07 | XMS_ITS | Encounter Summary ---
Author Organization [employer] Address [address] [place] [address] [place] [address] Care Team Providers Care Web Ui Software Engineer Name Role Phone Ashley Frankel MD Primary Care Provider [phone] Viktor November Unavailable Kishore Dorsey MD Unavailable [phone] Raheel Gee Unavailable [phone] Riya Fulton Unavailable Sergio Hackett Unavailable Unavailable Dominga Silva PharmD Unavailable [phone] Reason for Referral * Consultation (Routine) - Authorized Specialty Diagnoses / Procedures Referred By Jeromy worrell Referred To Contact Pharmacy Diagnoses Primary hypertension Ashley Frankel MD [address] [place] [address] Phone: tel: fax: Referral ID Status Reason Start Date Expiration Date Visits Requested Visits Authorized [id number] Authorized Continuity of Care 10/24/2024 10/24/2025 6 6 * Consultation (Routine) - Authorized Specialty Diagnoses / Procedures Referred By Jeromy worrell Referred To Contact Pharmacy Diagnoses Primary hypertension Ashley Frankel MD [address] [place] [address] Phone: tel: fax: Referral ID Status Reason Start Date Expiration Date Visits Requested Visits Authorized [id number] Authorized Consult and Treat 10/24/2024 10/24/2025 6 6 Reason for Visit * Reason Comments follow up bp Encounter Details Date Type Department Care Team (Latest Contact Info) Description 10/24/2024 9:15 AM EST Office Visit [facility] MEDICINE [address] [place] [address] Ashley Frankel MD [address] [place] [address] Primary hypertension (Primary Dx); Weight loss, non-intentional; [...] 11/01/2024 9:00 AM EST Medication Management [facility] [address] [place] [phone] Dominga Silva, PharmD [address] [place] [address] 12/09/2024 8:00 AM EDT Office Visit [facility] ADULT DENTAL [address] [place] [address] Jackie Peacock 01/23/2025 9:45 AM EDT Office Visit [facility] MED[facility]INE [address] [place] [address] Ashley Frankel MD [address] [place] [address] Scheduled Referrals Name Type Priority Associated Diagnoses [...] 9:22 AM EST) HIV AB/AG Nonreactive Nonreactive [facility] Comment:HIV-1 p24 Ag and/or HIV-1/HIV-2 Ab not detected.A test result that is nonreactive does not exclude thepossibility of exposure to or infection with HIV-1 and/orHIV-2. Nonreactive results in this assay for individualswith prior exposure to HIV-1 and/or HIV-2 may be due toantigen and antibody levels that are below the limit ofdetection of this assay.[facility] HIV Ag/Ab Combo assay result andsupplemental assay results should be interpreted inconjunction with the patient's clinical presentation,history and other laboratory results. If the results areinconsistent with clinical evidence, additional testing issuggested to confirm the result. Blood Venous blood specimen / Unknown 10/24/2024 9:22 AM EST 10/24/2024 11:48 AM EST us Ashley Frankel MD LAB BLOOD ORDERABLES Final Result [facility] [address] [place] [phone] * TSH W/Reflex to FT4 (10/24/2024 9:22 AM EST) TSH reflex Free T4 1.31 0.32 - 4.0 uIU/mL [facility] Blood Venous blood specimen / Unknown 10/24/2024 9:22 AM EST 10/24/2024 11:48 AM EST Ashley Frankel MD LAB BLOOD ORDERABLES Final Result Performing Organization Address City/[facility]/ZIP Co de Phone Number [facility] [address] [place] [phone] * Vitamin D, 25-Hydroxy, Total, Immunoassay (10/24/2024 9:22 AM EST) Vitamin D 25-OH Total 39.3 >30 ng/mL [facility] Comment:Health Based Referen ce Values*< 20 ng/mL [id number] ng/mL Insufficient> 30 ng/mL Sufficient*Colleen GILL. N [...] BLOOD ORDERABLES Final Result Performing Organization Address [facility] Co de Phone Number [facility] [address] [place] [phone] * Lactate Dehydrogenase (LD) (10/24/2024 9:22 AM EST) Lactate Dehydrogenase 248 118 - 273 U/L [facility] Blood Venous blood specimen / Unknown 10/24/2024 9:22 AM EST 10/24/2024 11:48 AM EST Ashley Frankel MD LAB BLOOD ORDERABLES Final Result [facility] [address] [place] [phone] [phone] documented in this encounter Visit Diagnoses Diagnosis Primary hypertension- Primary Unspecified essential hypertension Weight loss, non-intentional Loss of weight 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 ([facility]/HCC) Overweight Dietary counseling Dietary surveillance and counseling Exercise counseling Dyslipidemia Other and unspecified hyperlipidemia Type 2 diabetes mellitus without complication, without long-term current use of insulin ([facility]/HCC) Pulmonary nodules Other diseases of lung, not elsewhere classified documented in this encounter Additional Health Concerns Assessment Noted Time PHQ-9 Depression Total Score: 0 07/17/20 10:33 AM EST documented as of this encounter Care Teams Web Ui Software Engineer Relationship Specialty Start Date End Date Ashley Frankel MD [address] [place] [address] PCP - General Family Medicine 08/28/18November [address] [place] [address] Gastroenterology 07/17/24 Kishore Dorsey MD [address] [place] [address] Urology 07/17/24 Raheel Gee [address] [place], [place] [address] Pulmonary Disease 07/17/24 Riya Fulton [address] [place] [address] Cardiology 07/17/24 Sergio Hackett [facility] [address] [place] [address] Orthopaedic Surgery 07/17/24 Dominga Silva, Mehrdad [address] [place] [address] Pharmacist Internal Medicine 07/22/24 De. Dalal Psychiatry 10/10/24 documented as of this encounter
--- OUTSIDE RECORDS SUMMARY | 2024-10-31 08:07 | XMS_ITS | Encounter Summary ---
Author Organization [facility] Address [address] [place] [address] Care Team Providers Care Tunnel Elastic Operator Lockstitch Name Role Phone Ashley Frankel MD Primary Care Provider [phone] Reason for Visit * Reason Comments Flank Pain Bl flank pain here r ecently with kidney stone that had to get broken up on the right . Now having pain while urinating and left flank pain Encounter Details Date Type Department Care Team (Late st Contact Info) Description 10/12/2024 3:45 AM EST - 10/12/2024 9:39 AM EST Emergency [facility] Emergency [address] [place] [phone] Smith Quan MD [address] [address] Urinary tract infection with hematuria, site unspecified [...] REFLEX MICROSCOPIC AND CULTURE - Abnormal Specific [place] Urine 1.014 pH, Urine 5.5 Leukocytes, Urine [...] Procedure Abnormality Status --------- ------ CBC auto differential[[id number]] Abnormal Final result Please view results for these tests on the individual orders. URINALYSIS WITH REFLEX MICROSCOPIC AND CULTURE Narrative: The following orders were created for panel order Urinalysis with reflex microscopic and culture. Procedure Abnormality Status --------- ------ Urinalysis with reflex ...[[id number]] Abnormal Edited Result - FINAL Carlin urine culture tube[[id number]] Final result Please view results for these [...] post lithotripsy, stent placement for kidney stones [facility] as noted in greater detail above. Continued pain, evidence of UTI on urinalysis despite active antibiotic use. Will initiate on gentamicin given his anaphylactic penicillin allergy. Toradol for pain as well as 1 L of IVF. Patient will go for CT to evaluate for retained stone or additional infection. Anticipate patient may require admission for failed outpatient antibiotic treatment, may require transfer to [place] given recent postoperative status. Medications gentamicin (GARAMYCIN) 420 mg in sodium chloride 0.9 % 100 mL IVPB (420 mg intravenous New Bag 10/12/24 3671) ketorolac (TORADOL) injection 15 mg (15 mg intravenous Given 10/12/24 2975) sodium chloride 0.9 % bolus 1,000 mL [...] 10:45 AM EDT Consult Orthopedic Surgery - [place] [address] [phone] Raheel Slater, DPM [address] [address] documented as of this encounter Procedures Procedure [...] Quan MD LAB BLOOD ORDERABLES Final Result [facility] [address] [place] [address], * (ABNORMAL) Comprehensive metabolic panel (10/11/2024 11:18 [...] Result Performing Organization Address [facility] Co de Phone Number [facility] [address] [place] [address], [place] [phone] * Culture urine (10/11/2024 10:34 PM EST) Culture, Urine No growth 10/13/2024 10:54 AM EST [facility] Urine Urine specimen obtained by clean catch procedure / Unknown Non-blood Collection / Unknown 10/11/2024 10:34 PM EST 10/11/2024 11:52 PM EST Smith Quan MD LAB MICROBIOLOGY - GENERAL ORDERABLES Final Result Performing Organization Address [facility] Co de Phone Number [facility] [address] [place] [address], * Carlin urine culture tube (10/11/2024 10:34 PM EST) Pathologist [facility] Extra Tube Hold for add-ons. 10/12/2024 1:11 AM EST [facility] Comment:Auto resulted. Urine Urine specimen obtained by clean catch procedure / Unknown Non-blood Collection / Unknown 10/11/2024 10:34 PM EST 10/11/2024 11:07 PM EST Smith Quan MD LAB URINE ORDERABLES Final Result Performing Organization Address [facility] Co de Phone Number [facility] [address] [place] [address], [place] [phone] * (ABNORMAL) Urinalysis with reflex microscopic and culture (10/11/2024 10:34 PM EST) [facility] Specific [place] Urine 1.014 1.003 - 1.030 LAB URINALYSIS - AUTOMATED METHOD 10/12/2024 6:50 AM EST [facility] pH, Urine 5.5 5.0 - [...] - AUTOMATED METHOD 10/12/2024 6:50 AM EST [facility] Comment:This is an appended report. These results have been appended to a previously preliminary verified report. Crystals, Urine LT CALCIUM OXALATE /LPF LAB URINALYSIS - AUTOMATED METHOD 10/12/2024 6:50 AM EST [facility] Comment:Corrected result: Pr eviously reported on 10/11/2024 at 2351 EST. Bacteria, Urine Negative Negative /HPF LAB URINALYSIS - AUTOMATED METHOD 10/12/2024 6:50 AM EST [facility] Comment: Edited result: Previously reported as Negative /HPF on 10/11/2024 at 2351 EST. This is an appended report. ??These results have been appended to a previously final verified report. Hyaline Casts, Urine 13.6(H) 0 - 3 /LPF LAB URINALYSIS - AUTOMATED METHOD 10/12/2024 6:50 AM EST [facility] Comment:This is an appended report. These results have been appended to a previously preliminary verified report. Urine Urine specimen obtained by clean catch procedure / Unknown Non-blood Collection / Unknown 10/11/2024 10:34 PM EST 10/11/2024 11:07 PM EST us Smith Quan MD LAB URINE ORDERABLES Edited Result - Final [facility] [address] [place] [address], documented in this encounter Visit Diagnoses Diagnosis [...] RN) documented in this encounter Care Teams Tunnel Elastic Operator Lockstitch Relationship Specialty Start Date End Date Ashley [place] MD [address] [place] [phone] PCP - General Family Medicine 08/09/24 documented as of this encounter
--- OUTSIDE RECORDS SUMMARY | 2024-10-31 08:07 | XMS_ITS | Encounter Summary ---
Author Organization [employer] Address [address] [facility] 7t [place] [address] Care Team Providers Care Hog Man Name Role Phone Ashley Frankel MD Primary Care Provider [phone] Hoang, November Unavailable Kishore Dorsey MD Unavailable [phone] Raheel Gee Unavailable [phone] Riya Fulton Unavailable Sergio Hacektt Unavailable Unavailable Dominga Silva PharmD Unavailable [phone] Reason for Visit * Reason Comments Med Refill Encounter Details Date Type Department Care Team (Late st Contact Info) Description 07/24/2023 Refill [facility] 230 [place] [address] [facility] 230 [place], [place] [phone] Prostatitis, acute Social History Tobacco Use Types [...] Description 11/01/2024 9:00 AM EST Medication Management [facility] [address] [place] [address] Dominga Silva, PharmD [address] [place] [address] 12/09/2024 8:00 AM EDT Office Visit [facility] [address] [place] [address] Jackie Peacock 01/23/2025 9:45 AM EDT Office Visit [facility] [address] [place] [address] Ashley Frankel MD [address] [place] [address] documented as of this encounter Visit Diagnoses Diagnosis Prostatitis, acute Acute prostatitis documented in this encounter Care Teams Hog Man Relationship Specialty Start Date End Date Ashley Frankel MD [address] [place] [address] PCP - General Family Medicine 08/28/[address] [place] [address] Gastroenterology 07/17/24 Kishore Dorsey MD [address] [place] [address] Urology 07/17/24 Raheel Gee 5 [place] 10[address] Pulmonary Disease 07/17/24 Riya Fulton [address] 3rd [place] [address] Cardiology 07/17/24 Sergio Hackett 300 [facility] [address] [place] [address] Orthopaedic Surgery 07/17/24 Dominga Silva, AnanthD 230 [place] [address] Pharmacist Internal Medicine 07/22/24 Norm. Mulugeta Psychiatry 10/10/24 documented as of this encounter
--- OUTSIDE RECORDS SUMMARY | 2024-10-31 08:07 | XMS_ITS | Encounter Summary ---
Author Organization [employer] Address 75 [facility] 7t [place] [address] Care Team Providers Care Low Vision Therapist Name Role Phone Ashley Frankel MD Primary Care Provider [phone] Viktor November Unavailable Kishore Dorsey MD Unavailable [phone] Raehel Gee Unavailable [phone] Riya Fulton Unavailable Sergio Hackett Unavailable Unavailable Dominga Silva PharmD Unavailable Encounter Details Date Type Department Care Team (Late st Contact Info) Description 10/28/2024 Telephone [facility] 230 [place], [place] [phone] Ashley Frankel MD 230 [place], [place] [phone] Social History Tobacco Use Types Packs/Day Years [...] encounter Miscellaneous Notes * Telephone Encounter - Arminda Baker - 10/28/2024 1:04 PM EST Pharmacy [facility] attempted outreach call on 10/28/24 for CDTM - Hypertension appointment; however, unable to reach patient. LVM for patient to contact Arminda Baker at [phone]. documented in this encounter Plan of Treatment Upcoming Encounters Date Type Department Care Team ([facility] st Contact Info) Description 11/01/2024 9:00 AM EST Medication Management [facility] [address] [place] [address] Dominga Silva, PharmD 230 [place] [address] 12/09/2024 8:00 AM EDT Office Visit [facility] [address] [place] [address] Jackie Peacock 01/23/2025 9:45 AM EDT Office Visit [facility] [address] [place] [address] Ashley Frankel MD 230 [place] [address] documented as of this encounter Visit Diagnoses Not on filedocumented in this encounter Additional Health Concerns Assessment Noted Time PHQ-9 Depression Total Score: 0 07/17/20 24 10:33 AM EST documented as of this encounter Care Teams Low Vision Therapist Relationship Specialty Start Date End Date Ashley Frankel MD 230 [place] [address] PCP - General Family Medicine 08/28/18November [address] [address] Gastroenterology 07/17/24 Kishore Dorsey MD 10 [facility] [address] [place] [address] Urology 07/17/24 Raheel Gee 5 [place] 1040 Pulmonary Disease 07/17/24 Riya Fulton [address] [address] Cardiology 07/17/24 Sergio Hackett [address] [place] [address] Orthopaedic Surgery 07/17/24 Dominga Silva, AnanthD 230 [place] [address] Pharmacist Internal Medicine 07/22/24 De. Dalal Psychiatry 10/10/24 documented as of this encounter
--- OUTSIDE RECORDS SUMMARY | 2024-10-31 08:07 | XMS_ITS | Encounter Summary ---
Author Organization [employer] Address [address] [place] [address] 7t [place] [address] Care Team Providers Care Oracle Hyperion Consultant Name Role Phone Ashley Frankel MD Primary Care Provider [phone] Viktor November Unavailable Kishore Dorsey MD Unavailable Raheel Gee Unavailable [phone] Riya Fulton Unavailable Sergio Hackett Unavailable Unavailable Dominga Silva PharmD Unavailable [phone] Encounter Details Date Type Department Care Team (Late st Contact Info) Description 02/01/2023 Telephone [facility] 230 [place], [place] [phone] Ashley Frankel MD 230 [place], [place] [phone] Social History Tobacco Use Types Packs/Day Years [...] [facility] [address] [place] [address] Dominga Silva PharmD 230 [place] [address] 12/09/2024 8:00 AM EDT Office Visit [facility] [address] [place] [address] Jackie Peacock 01/23/2025 9:45 AM EDT Office Visit [facility] [address] [place] [address] Ashley Frankel MD [address] [place] [address] documented as of this encounter Visit Diagnoses Not on filedocumented in this encounter Care Teams Oracle Hyperion Consultant Relationship Specialty Start Date End Date Ashley Frankel MD [address] [place] [address] PCP - General Family Medicine 08/28/18November 11 [facility] 3rd [place] [address] Gastroenterology 07/17/24 Kishore Dorsey MD [address] [place] [address] Urology 07/17/24 Raheel Gee 5 [place], [place] 1040 Pulmonary Disease 07/17/24 Riya Fulton [address] [place] [address] Cardiology 07/17/24 Sergio Hackett [address] 2nd [place] [address] Orthopaedic Surgery 07/17/24 Dominga Sivla, Mehrdad [address] [place] [address] Pharmacist Internal Medicine 07/22/24 De. Dalal Psychiatry 10/10/24 documented as of this encounter
--- OUTSIDE RECORDS SUMMARY | 2024-10-31 08:07 | XMS_ITS | Data Portability ---
Author Organization [place] [facility], Allergy Address [address] [place] [address] Care Team Providers Care [employer] Name Role Phone NAME, LINDSAY Primary Care [...] follow-up after for review and further planning. [email or web address] Not available 09/16/2024 13:47:52 Plan of Treatment [...] CT, maxillofaci al, w/o contrast 2024 025 [id number] [facility] [place], [facility], [place], [address], 5 15:43:34 Medication Orders None recorded. Patient TargetsNo targets recorded. Patient InstructionsNo instructions recorded. Reason for Referral None Reported. Problems Name Problem SNOMED Code Status Onset Date Resolution Date Notes Provider Name and Address Organization Details Recorded Time Allergic rhinitis 00246911 Active 2018 Perennial allergic rhinitis; Note: Date Diagnosed : 11/26/2018 12:00 PM (J30.89) Not Available [facility] 4 02:51:24 Deviated nasal septum 531802229 Active 2017 Deviated nasal septum; Note: Date Diagnosed : 05/09/2018 11:11 AM (J34.2) Not Available [facility] 4 02:51:18 Tinnitus of right ear 58136357234 08 Active 2017 Tinnitus, right ear; Note: Date Diagnosed : 01/16/2018 3:42 PM (H93.11) Not Available [facility] 4 02:51:19 Sensorine ural hearing loss of bilateral ears 026976212 Active 2017 Sensorine ural hearing loss, bilateral ; Note: Date Diagnosed : 01/16/2018 3:42 PM (H90.3) Not Available [facility] 4 02:51:21 Nasal congestio n 06080265 Active 2017 Nasal congestio n; Note: Date Diagnosed : 05/09/2018 11:11 AM (R09.81) Not Available [facility] 4 02:51:19 Dizziness and giddiness 715005981 Active 2017 Dizziness and giddiness ; Note: Date Diagnosed : 01/16/2018 3:42 PM (R42) Not Available [facility] 4 02:51:20 Headache 80592110 Active 2017 Headache; Note: Date Diagnosed : 05/09/2018 11:06 AM (R51) Not Available [facility] 4 02:51:20 Impacted cerumen of bilateral ears 28098099794 438[address] Active 2024 MAXWELL DALY PA-C [address] [place],[facility], [place], [address] , [facility] 5 13:48:02 Seasonal allergic rhinitis 104258462 Active 2024 MAXWELL DALY PA-C [facility] [place] [address], [place], [address] , [facility] 13:48:08 Non-aller gic rhinitis 98036997801 1 Active 2024 MAXWELL DALY PA-C [address] [facility] [place],[facility], [place], [address] , [facility] 13:48:08 Problem Notes None recorded. Procedures Surgical History Date Name Laterality Status Provider Name and Address Organization Details Recorded Time Cerumen removal without microscope bilat completed MAXWELL DALY PA-C [address] [facility] [place] [address], [place], [address], [facility] 09/16/2024 13:46:50 Imaging Results None recorded. Procedure Notes None recorded. Medical Equipment None Reported. Allergies Allergen ID Allergen Name Allergen Category Reaction Reaction Severity Criticality Documentation Date Start Date Code Code System Note Provider Name and Address Organization Details Recorded Time 963788 amoxicill in medicatio n other Not available Not available 01/09/2024 723 RxNorm React ion: unkno wn, unspe cifie d;; Not Available [facility] 4 01:20:48 204207 Product containin g penicilli n (product) medicatio n other Not available Not available 01/09/2024 16074 8001 SNOMED React ion: unkno wn, unspe cifie d;; Not Available [facility] 4 01:20:48 Medications Name Sig Start Date [...] mg tablet 01/16 completed Medicati on ID: [id number] D uration Value: 30 Reason: () Brand [...] mg tablet 09/16 completed Medicati on ID: [id number] D uration Value: 30 Brand Name: amlodipi [...] mg tablet 10/12 completed Medicati on ID: [id number] D uration Value: 30 Brand Name: carvedil [...] mg capsule 01/16 completed Medicati on ID: [id number] D uration Value: 30 Reason: () Brand [...] mg tablet 10/12 completed Medicati on ID: [id number] D uration Value: 10 Brand Name: Viagra [...] mg tablet 10/12 completed Medicati on ID: [id number] D uration Value: 5 Brand Name: levoflox [...] 24 hr 05/09 completed Medicati on ID: [id number] D uration Value: 30 Reason: () Brand [...] Lite Strips 01/16 completed Medicati on ID: [id number] D uration Value: 17 Reason: () Brand [...] Updated DateTime 09/16/2024 170.18 cm 27.9 kg/m2 11562.44 g Gail Hurt [place] - [facility] 09/16/2024 13:25:10 Social History None recorded. Functional Status None recorded. Mental Status None recorded. Family History Nothing Reported. Medical History No medical history recorded. Past Encounters Encounter ID Performer Location Encounter Start Date Encounter Closed Date Diagnosis/Indication Diagnosis SNOMED-CT Code Diagnosis ICD10 Code Diagnosis Note [id number] MAXWELL DALY PA-C [facility] [address] [address] 09/16/2024 13:13:53 09/16/2024 13:45:47 Nasal congestion 42020099 R09.81 Allergic rhinitis 993276 04 J30.89 Impacted c erumen of bilateral ears 6180289260 882614 H61.23 Health Concerns Section Related Observation LastModified by Organization Detai ls LastModified Time None Recorded Concern Status LastModified by Organization Details LastModified Time None Recorded Advance Directives Directive None Recorded Payers Encounter Date Sequence Insurance Name Policy Number Policy Ortiz Covered Member ID Ortiz Member ID Guarantor Name 09/16/2024 1 [facility] - DOS ON OR AFTER 2022 - MEDICARE [place]VANTAGE [place] (MEDICARE REPLACEMENT/ADV ANTAGE - PPO) Bobby Velasco [id number] Bobby Velasco Notes Date Note Type Note [...] in his ears bilaterally. MAXWELL DALY PA-C [address] [place] [address], [place], [address], [facility] - [facility] 09/16/2024 13:49:51
--- OUTSIDE RECORDS SUMMARY | 2024-10-31 08:07 | XMS_ITS | Encounter Summary ---
Author Organization [employer] Address [address] [facility] 7t [place] [address] Care Team Providers Care Tram Operator Name Role Phone Ashley Frankel MD Primary Care Provider [phone] Hoang, November Unavailable Kishore Dorsey MD Unavailable [phone] Raheel Gee Unavailable [phone] Riya Fulton Unavailable Sergio Hackett Unavailable [...] Description 11/01/2024 9:00 AM EST Medication Management [facility] [address] [place] [address] Dominga Silva PharmD [address] [place] [address] 12/09/2024 8:00 AM EDT Office Visit [facility] [address] [place] [address] Jackie Peacock 01/23/2025 9:45 AM EDT Office Visit [facility] [address] [place] [address] Ashley Frankel MD [address] [place] [address] documented as of this encounter Visit Diagnoses Not on filedocumented in this encounter Additional Health Concerns Assessment Noted Time PHQ-9 Depression Total Score: 0 07/17/20 24 10:33 AM EST documented as of this encounter Care Teams Tram Operator Relationship Specialty Start Date End Date Ashley Frankel MD [address] [place] [address] PCP - General Family Medicine 08/28/18 Sonya Hoang [address] 3rd [place] [address] Gastroenterology 07/17/24 Kishore Dorsey MD [address] [place] [address] Urology 07/17/24 Raheel Gee 5 [place], [place] 1040 Pulmonary Disease 07/17/24 Riya Fulton [address] 3rd [place] [address] Cardiology 07/17/24 Sergio Hackett 300 [facility] 2nd [place] [address] Orthopaedic Surgery 07/17/24 Dominga Silva, AnanthD 230 [place] [address] Pharmacist Internal Medicine 07/22/24 De. Mulugeta Psychiatry 10/10/24 documented as of this encounter
== END 2024-10-31 08:58 | disposition home or self-care (01) ==
PROVIDERS: PCP Family Medicine; Visit Provider Urology
DX: N20.0 Calculus of kidney (principal); N20.1 Calculus of ureter; N13.1 Hydronephrosis with ureteral stricture, not elsewhere classified; Z96.0 Presence of urogenital implants
CPT/HCPCS: 52310

== ENCOUNTER 2024-11-12 10:34 | Outpatient (REF) | payer OTHER, SELFPAY | END 2024-11-12 10:35 | disposition home or self-care (01) | LOC: HO.US 10:34 | PROVIDERS: PCP Family Medicine; Visit Provider Urology | DX: Z13.89 Encounter for screening for other disorder (principal) ==

== ENCOUNTER 2024-11-12 14:15 | Emergency (ER) | payer OTHER, SELFPAY ==
--- NOTE | ~2024-11-12 | XR_ITS ---
EXAMINATION: XR ABDOMEN 1 VIEW (KUB) HISTORY: pain COMPARISON: There are no prior studies for comparison. FINDINGS: Two upright views of the abdomen are submitted. The bowel gas pattern is unremarkable, without evidence of mechanical obstruction. There is no free intraperitoneal gas. There is a moderate amount of stool throughout the colon. No abnormal calcifications are identified. There are no abnormal soft tissue masses. There is degenerative disc disease of the spine. XR/XR KUB IMPRESSION: Moderate amount of stool throughout the colon. Electronically signed by: George Oquendo MD 11/12/2024 02:44 PM EDT
[2024-11-12 14:25] VITALS: BP 158/97; PULSE 72; RESP 16; TEMP 36.4; O2SAT 97; BMI 27.4
--- NOTE | 2024-11-12 14:28 | ED_ITS ---
HPI - General Adult General Chief complaint: Abdominal Pain Stated complaint: Lower abd pain, back pain Time Seen by Provider: 11/12/24 17:14 Source: patient Limitations: no limitations History of Present Illness ED Provider: Nathalia Dorado PA-C HPI narrative: 59-year-old male with a history of kidney stones, asthma, diabetes, BPH, GERD, hypertension who presents with constipation for weeks. Patient states he has been struggling to have bowel movements, only able to defecate small amounts of hard stool. He has been using prune juice without great effect. Denies abdominal distention, inability to pass flatus, no nausea vomiting. Related Data Home Medications ?Medication ?Instructions ?Recorded ?Confirmed aspirin 81 mg tablet,delayed 81 mg PO DAILY 08/04/20 09/30/24 release blood sugar diagnostic (FreeStyle #10 ea 06/22/21 03/22/24 Lite Strips) lancets 33 gauge (TRUEplus Lancets) #100 ea 06/22/21 03/22/24 chlorthalidone 25 mg tablet 25 mg PO DAILY 06/09/23 09/30/24 hydroxyzine HCl 25 mg tablet 25 mg PO QID PRN Anxiety 02/09/24 09/30/24 trazodone 50 mg tablet 50 mg PO BEDTIME PRN Insomnia 02/09/24 09/30/24 cetirizine 10 mg tablet (Zyrtec) 10 mg PO DAILY PRN Allergies 06/06/24 09/30/24 albuterol sulfate 90 mcg/actuation 2 puff inhalation Q6H PRN dyspnea 09/30/24 09/30/24 aerosol inhaler fluticasone propionate 50 2 spray intranasal DAILY PRN 09/30/24 09/30/24 mcg/actuation nasal Allergy Symptoms spray,suspension tamsulosin 0.4 mg capsule 0.4 mg PO DAILY 09/30/24 09/30/24 tramadol 50 mg tablet 50 mg PO BEDTIME PRN Pain 09/30/24 09/30/24 atorvastatin 80 mg tablet 80 mg PO DAILY 10/01/24 10/01/24 Previous Rx's ?Medication ?Instructions ?Recorded acetaminophen 500 mg tablet 1,000 mg (2 x 500 mg) PO Q6H PRN 12/16/23 (Tylenol Extra Strength) fever or pain #20 tabs terazosin 5 mg capsule 5 mg PO BEDTIME 90 days #90 caps 08/30/24 famotidine 40 mg tablet 40 mg PO DAILY PRN for heartburn 05/08/24 #90 tabs amlodipine 10 mg tablet 10 mg PO DAILY #90 tabs 06/24/24 lisinopril 40 mg tablet 40 mg PO DAILY #90 tabs 07/01/24 meclizine 25 mg tablet 25 mg PO BID PRN dizziness #14 tabs 07/19/24 docusate sodium 100 mg capsule 100 mg PO BID #14 caps 10/02/24 (Colace) sennosides 8.6 mg capsule (senna) 8.6 mg PO BEDTIME PRN constipation 10/02/24 #14 caps Allergies Allergy/AdvReac Type Severity Reaction Status Date / Time amoxicillin [AMOXICILLIN] Allergy Severe ANAPHYLAXIS Verified 11/12/24 14:25 Penicillins Allergy Severe UNKNOWN Verified 11/12/24 14:25 REACTION-CHILDHOOD doxycycline [From VIBRAMYCIN] AdvReac Mild DIARRHEA Verified 11/12/24 14:25 Clindamycin HCl Allergy Severe Anaphylaxis Uncoded 10/31/24 08:11 Review of Systems 2 Review of Systems: Yes all other systems are reviewed and are negative Constitutional: Constitutional: Denies fatigue and Denies fever(s) Cardiovascular: Cardiovascular: Denies chest pain and Denies dyspnea Respiratory: Respiratory: Denies cough and Denies dyspnea Gastrointestinal: Gastrointestinal: Reports abdominal pain, Reports constipation, Denies nausea and Denies vomiting Endocrine: Endocrine: Denies fatigue PMFSH Past Medical History Attestation statement: The following information was validated with the patient. Medical History Opacity of lung on imaging study Pre-op examination GERD (gastroesophageal reflux disease) Orchialgia Weak urinary stream Asthma Nasal polyps Diabetes HTN (hypertension) Pulmonary nodules Surgical History History of esophagogastroduodenoscopy (EGD) Hx of colonoscopy H/O wrist surgery Family History Family History Father Diabetes Hypertension Mother Hypertension Hyperlipidemia Brother Hypertension Family/Other Kidney stones Prostate cancer Bladder cancer Renal cancer Social History Social History Household Members: None Housing: Apartment Alcohol intake: former Patient Tobacco Use Status: Former Tobacco user Tobacco use type: Cigarette Years Smoked: 30 years service: No Physical Exam ED Vital Signs: Vital Signs - 24 hr 11/12/24 14:25 11/12/24 17:12 Temperature 97.6 F 98.0 F Pulse Rate 72 63 Respiratory Rate 16 18 Blood Pressure 158/97 H 172/84 H Pulse Oximetry 97 97 Oxygen Delivery Method Room Air Room Air BMI result Body Mass Index 27.4 Const Other: Alert Orientation/consciousness: patient oriented x3 Resp Effort & Inspection: normal respiratory effort Cardio Other: Normal peripheral perfusion GI Other: Abdomen is soft, nontender non distended no guarding Skin Other: Warm dry no rash Neuro General: patient oriented x3, gait normal, no focal motor deficits and CN's II- XI intact bilaterally Psych Other: Cooperative Course Course Course Narrative: This is a rapid medical exam performed by Nathalia Dorado PA-C. The patient is a 59-year-old male with a history of kidney stones, asthma, diabetes, BPH, GERD, hypertension who presents with constipation for weeks. Patient states he has been struggling to have bowel movements, only able to defecate small amounts of hard stool. He has been using prune juice without great effect. Denies abdominal distention, inability to pass flatus, no nausea vomiting. On exam the abdomen is soft, nondistended nontender. We will be ordering screening labs and a KUB. The patient is stable and can return to the waiting room pending his full medical assessment. Medical Decision Making Medical Decision Making MDM Narrative: 59-year-old male with a history of kidney stones, asthma, diabetes, BPH, GERD, hypertension who presents with constipation for weeks. Patient states he has been struggling to have bowel movements, only able to defecate small amounts of hard stool. He has been using prune juice without great effect. Denies abdominal distention, inability to pass flatus, no nausea vomiting. Problem: Diabetes, constipation History: Per patient I have considered the following differential diagnoses: Constipation, bowel obstruction, fecal impaction, obstipation Plan: Screening labs including a KUB ordered from triage, the patient was constipated without obstructive signs on exam, furthermore he has no obstructive symptoms. We will send with an aggressive bowel regimen I have independently reviewed the following tests: Labs: No leukocytosis, not anemic, no electrolyte abnormality noted, KUB: XR/XR KUB IMPRESSION: Moderate amount of stool throughout the colon. Lab Data 11/12/24 14:35 11/12/24 14:35 Labs: Lab Results 11/12/24 Range/Units 14:35 WBC 5.2 (4.8-10.8) X10*3/uL RBC 4.14 L (4.60-5.80) X10*6/uL Hgb 12.9 L (14.0-18.0) g/dl Hct 36.8 L (42.0-52.0) % MCV 88.9 (80.0-98.0) fL MCH 31.2 (27.0-33.0) pg MCHC 35.1 (31.0-36.0) g/dl RDW 12.4 (11.0-16.0) % Plt Count 230 (160-400) X10*3/uL MPV 10.2 (9.4-12.4) fL Immature Gran % (Auto) 0.4 (0.0-0.4) % Neut % (Auto) 60.6 (45-73) % Lymph % (Auto) 25.6 (20-40) % [place] % (Auto) 11.7 H (2-11) % Eos % (Auto) 1.1 (0-4) % Baso % (Auto) 0.6 (0-2) % Lymph # (Auto) 1.3 (1.2-4.9) X10*3/uL [place] # (Auto) 0.6 (0.1-1.2) X10*3/uL Eos # (Auto) 0.1 (0.0-0.4) X10*3/uL Baso # (Auto) 0.0 (0.0-0.2) X10*3/uL Abs Immat Gran (auto) 0.02 (0.00-0.03) X10*3/uL Absolute Neuts (auto) 3.2 (2.0-8.3) x10*3/uL Absolute Nucleated RBC 0.000 (0.0-0.012) X10*3/uL Nucleated RBC % (auto) 0.0 (0.0-0.2) /100WBC Sodium 143 (135-145) mmol/L Potassium 3.7 (3.3-5.1) mmol/L Chloride 108 (96-108) mmol/L Carbon Dioxide 28 (22-29) mmol/L Anion Gap 11 L (12-20) BUN 18 H (9-16) mg/dL Creatinine 1.00 (0.5-1.4) mg/dL Estim Creat Clear Calc 79.3 Estimated GFR > 60 Random Glucose 145 H (60-115) mg/dL Calcium 9.5 D (8.4-10.2) mg/dL Magnesium 2.0 (1.6-2.6) mg/dL Total Bilirubin 0.8 (0.0-1.0) mg/dL AST 21 (5-37) U/L ALT 12 (0-40) U/L Alkaline Phosphatase 92 (39-117) U/L Total Protein 6.7 (6.5-8.0) g/dL Albumin 3.9 (3.5-5.0) g/dL Lipase 22 (8-78) U/L Discharge Plan Discharge Clinical Impression: Constipation Patient Disposition: Home, Self-Care Instructions: Constipation (ED) Additional Instructions: All of your screening labs were normal, the x-ray revealed that you are constipated. See home care instructions. You need to purchase [id number]-myjvamu Colace, this is a stool softener, use it twice a day. In addition use qonr-hap-[id number] MiraLax, drink the solution every hour until you begin having multiple large volume bowel movements, until you begin defecating clear fluid. Moving forward, once you expel this current stool burden, you should stay on a stool softener indefinitely, you may require the use of MiraLax daily to several times a week, to maintain regularity. Follow up with your primary care provider as needed. Prescriptions: No Action terazosin 5 mg capsule 5 mg PO BEDTIME 90 Days Qty: 90 1RF famotidine 40 mg tablet 40 mg PO DAILY PRN (Reason: for heartburn) Qty: 90 4RF amlodipine 10 mg tablet 10 mg PO DAILY Qty: 90 3RF lisinopril 40 mg tablet 40 mg PO DAILY Qty: 90 3RF acetaminophen [Tylenol Extra Strength] 500 mg tablet 1,000 mg PO Q6H PRN (Reason: fever or pain) Qty: 20 0RF meclizine 25 mg tablet 25 mg PO BID PRN (Reason: dizziness) Qty: 14 0RF tramadol 50 mg tablet 50 mg PO BEDTIME PRN (Reason: Pain) tamsulosin 0.4 mg capsule 0.4 mg PO DAILY albuterol sulfate 90 mcg/actuation HFA aerosol inhaler 2 puff INHALATION Q6H PRN (Reason: dyspnea) fluticasone propionate 50 mcg/actuation spray,suspension 2 spray intranasal DAILY PRN (Reason: Allergy Symptoms) atorvastatin 80 mg tablet 80 mg PO DAILY docusate sodium [Colace] 100 mg capsule 100 mg PO BID Qty: 14 0RF senna 8.6 mg capsule 8.6 mg PO BEDTIME PRN (Reason: constipation) Qty: 14 0RF aspirin 81 mg tablet,delayed release (DR/EC) 81 mg PO DAILY (DME) lancets [TRUEplus Lancets] 33 gauge misc See Rx Instructions Not Applicable TID Qty: 100 Rx Instructions: As directed (DME) FreeStyle Lite Strips Strip See Rx Instructions Not Applicable TID Qty: 10 Rx Instructions: As directed chlorthalidone 25 mg tablet 25 mg PO DAILY hydroxyzine HCl 25 mg tablet 25 mg PO QID PRN (Reason: Anxiety) trazodone 50 mg tablet 50 mg PO BEDTIME PRN (Reason: Insomnia) cetirizine [Zyrtec] 10 mg tablet 10 mg PO DAILY PRN (Reason: Allergies) Print Language: Swedish
[2024-11-12 14:41] LABS: MANUAL DIFF FLAG NO
[2024-11-12 14:42] LABS: Basophils Percent Auto 0.6 % (0-2); Eosinophils Absolute Auto 0.1 X10*3/uL (0.0-0.4); Eosinophils Percent Auto 1.1 % (0-4); Hematocrit 36.8 % (42.0-52.0); Hemoglobin 12.9 g/dl (14.0-18.0); Imm Gran Abs Auto 0.02 X10*3/uL (0.00-0.03); Imm Gran Pct Auto 0.4 % (0.0-0.4); Lymphocytes Absolute Auto 1.3 X10*3/uL (1.2-4.9); Lymphocytes Percent Auto 25.6 % (20-40); Mean Corpuscular HGB Conc 35.1 g/dl (31.0-36.0); Mean Corpuscular Hemoglobin 31.2 pg (27.0-33.0); Mean Corpuscular Volume 88.9 fL (80.0-98.0); Mean Platelet Volume 10.2 fL (9.4-12.4); Monocytes Absolute Auto 0.6 X10*3/uL (0.1-1.2); Monocytes Percent Auto 11.7 % (2-11); Neutrophils Absolute Auto 3.2 x10*3/uL (2.0-8.3); Neutrophils Percent Auto 60.6 % (45-73); Platelet Count 230 X10*3/uL (160-400); Red Blood Count 4.14 X10*6/uL (4.60-5.80); Red Cell Distribution Width 12.4 % (11.0-16.0); White Blood Count 5.2 X10*3/uL (4.8-10.8)
[2024-11-12 14:59] LABS: Alanine Aminotransferase 12 U/L (0-40); Albumin Level 3.9 g/dL (3.5-5.0); Alkaline Phosphatase 92 U/L (39-117); Anion Gap 11 (12-20); Aspartate Amino Transferase 21 U/L (5-37); Bilirubin Total 0.8 mg/dL (0.0-1.0); Blood Urea Nitrogen 18 mg/dL (9-16); Calcium 9.5 mg/dL (8.4-10.2); Carbon Dioxide 28 mmol/L (22-29); Chloride 108 mmol/L (96-108); Creatinine Clr Calc Pharmacy 79.3; Estimated Glomerular Filt Rate > 60; Glucose Random 145 mg/dL (60-115); Lipase 22 U/L (8-78); Potassium 3.7 mmol/L (3.3-5.1); Sodium 143 mmol/L (135-145); Total Protein 6.7 g/dL (6.5-8.0)
[2024-11-12 17:12] VITALS: BP 172/84; PULSE 63; RESP 18; TEMP 36.7; O2SAT 97
[2024-11-12 17:25] VITALS: BP 172/84; PULSE 63; RESP 18; TEMP 36.7; O2SAT 97
== END 2024-11-12 17:26 | disposition home or self-care (01) ==
PROVIDERS: Physician Assistant Medical; Emergency Provider Emergency Medicine; PCP Family Medicine
DX: K59.00 Constipation, unspecified (principal); E11.9 Type 2 diabetes mellitus without complications; M54.50 Low back pain, unspecified; I10 Essential (primary) hypertension; K21.9 Gastro-esophageal reflux disease without esophagitis; Z79.899 Other long term (current) drug therapy
CPT/HCPCS: 36415; 74018; 80053; 83690; 83735; 85025; 99282; 99283

== ENCOUNTER → 2024-11-12 14:25 | Outpatient (BNV) | payer OTHER, SELFPAY | PROVIDERS: PCP Family Medicine; Visit Provider Radiology Diagnostic Radiology | DX: R10.30 Lower abdominal pain, unspecified (principal) | CPT/HCPCS: 74018 ==

== ENCOUNTER 2024-11-19 08:55 | Outpatient (AMB) | payer OTHER, SELFPAY ==
--- NOTE | 2024-11-19 09:09 | A.OFFVIS_ITS ---
Intake Visit Reasons: cysto/US Intake Note: Patient is present for Cystoscopy/.US Urology Medication:TERAZOSIN Antibiotic Allergy:PENICILLINS,AMOXICILLIN,DOXYCYCLINE,CLINDAMYCIN Blood Thinner:ASPIRIN Lot:[id number] Exp:07/01/27 Relief Docking Master Required: No Allergies amoxicillin [AMOXICILLIN] Allergy (Severe, Verified 11/19/24 09:10) ANAPHYLAXIS Penicillins Allergy (Severe, Verified 11/19/24 09:10) UNKNOWN REACTION-CHILDHOOD doxycycline [From VIBRAMYCIN] Adverse Reaction (Mild, Verified 11/19/24 09:10) DIARRHEA Clindamycin HCl Allergy (Severe, Uncoded 11/19/24 09:10) Anaphylaxis HPI Comments Details: Bobby is a very pleasant male. He is a patient of Dr Frankel. He is seen in the office today for the following urologic conditions. - lower urinary tract symptoms - erectile dysfunction - nephrolithiasis Here for office cystoscopy Stone had been found at time of bladder ultrasound Prostate with volume 43 mL. Postvoid bladder volume 8 mL Office cystoscopy with high-riding bladder neck Re trial terazosin 5 mg Three-month follow-up Nephrolithiasis Imaging - 10/22 Right kidney at 11 cm with moderate to severe hydroureteronephrosis. 4 x 7 x 9 mm stone in the distal ureter. Intervention - 10/22 Right ureteroscopy Composition - 10/22 right ureteral stone fragments--Calcium Oxalate Dihydrate (Weddellite) 20%, Calcium Oxalate Monohydrate (Whewellite) 80% Erectile dysfunction background type 2 diabetes Progressive 09/19 response to high-dose daily Cialis Labs - 08/20 T 320 PSA 0.7 Lower Urinary Tract Symptoms:? Current visit is for?further evaluation of, lower urinary tract symptoms, predominate obstructive symptoms ?- less nocturia.? Current treatment includes?medication, alpha jesus - tamsulosin 0.4 mg ? Symptoms include?09/16 , weak stream, straining, and are progressing ?10/17 improved stream Labs - 07/17 0.9, 09/20 0.9 ? Associated conditions? diabetes ?Yes ? erectile dysfunction ?Yes ? Treatment plan?daily tadalafil medications.? PFSH Medical History Opacity of lung on imaging study Pre-op examination GERD (gastroesophageal reflux disease) Orchialgia Weak urinary stream Asthma Nasal polyps Diabetes HTN (hypertension) Pulmonary nodules Surgical History History of esophagogastroduodenoscopy (EGD) Hx of colonoscopy H/O wrist surgery Family History Father Diabetes Hypertension Mother Hypertension Hyperlipidemia Brother Hypertension Family/Other Kidney stones Prostate cancer Bladder cancer Renal cancer Social History Household Members: None Housing: Apartment Alcohol intake: former Patient Tobacco Use Status: Former Tobacco user Tobacco use type: Cigarette Years Smoked: 30 years service: No Review of Systems Const Denies chills and Denies fever(s) Card Reports no additional complaints and Denies syncope Resp Denies cough GI Denies abdominal pain and Denies heartburn Reports as per HPI and Denies change in libido Neuro Denies syncope Psych Denies change in libido Endo Denies change in libido Physical Exam Const General: cooperative, healthy appearing, comfortable and no acute distress Orientation/consciousness: patient oriented x3 HEENT Face and sinus: Yes normal facial exam Mouth: moist mucous membranes Neck Neck: Yes normal visual inspection, Yes full ROM and Yes trachea midline Chest Chest palpation & inspection: normal inspection of the chest Resp Effort & Inspection: normal respiratory effort, able to speak in complete sentences and no respiratory distress GI Inspection: Yes normal to inspection Back/Spine/Pelvis Cervical Spine: normal cervical lordosis Thoracic/Lumbar Spine: thoracic and lumbar spine normal to inspection Skin General skin exam: no rashes or lesions noted Neuro General: patient oriented x3, gait normal, tone normal and moves all extremities Extrem General: Yes normal to inspection and Yes capillary refill normal Office Procedures Cystoscopy Consent Discussed risk and benefit or proposed procedure with the patient. Information consent for procedure given to the patient. Discussed technical aspects, risks, benefits and alternatives in full. Addressed all of the patient's questions and concerns regarding the procedure. The patient demonstrated knowledge and understanding. They wish to proceed with this procedure. Preparation The patient was prepped in the usual manner. A electric meter setter was present and in the room. Genitalia was prepped with betadine solution in a sterile manner. Lidocaine Jelly 2% was placed into the urethra and 16Fr flexible Olympus cystoscope was inserted into the meatus after adequate lubrication. Procedure Cystoscopy performed using a disposable Urovue digital 16 [place] cystoscope. Meatus circumcised Urethra anterior and posterior urethra normal Prostatic Urethra tight bladder neck Bladder examination with retroflexion of cystoscope Bladder Orifices normal shape and position Bladder Capacity median Trabeculations grade 1 Cellule Formation - Diverticulum Formation - Mucosal Erythema -- Bladder Tumor - [id number] DISPOSABLE SCOPE URO-G FLEXIBLE SCOPE Procedure code (CPT) selection complete Office Meds lidocaine HCl 2 % mucosal jelly in applicator Performing Provider: Kishore Dorsey MD Performing Location: [facility] Administered by: Nathalia Reddy RN on 11/19/24 09:35 Dose Route Admin Location Dispensed Lot Number Expiration Date [facility] Infection Prevention Specialist 10 mL intra-urethral 10 mL nitrofurantoin monohydrate/macrocrystals 100 mg capsule Performing Provider: Kishore Dorsey MD Performing Location: [facility] Administered by: Nathalia Reddy RN on 11/19/24 09:35 Dose Route Admin Location Dispensed Lot Number Expiration Date [place] Infection Prevention Specialist 100 mg PO 1 cap Results AMB Urinalysis, Automated UA Leukoctes 0 Ernesto/uL Last Edit by ZHANNA Guillaume on 11/19/24 09:27 UA Nitrite Negative Last Edit by ZHANNA Guillaume on 11/19/24 09:27 UA Urobilinogen 3.5 mg/dL Last Edit by ZHANNA Guillaume on 11/19/24 09:2 7 UA Protein 0 mg/dL Last Edit by ZHANNA Guillaume on 11/19/24 09:27 UA pH 6.0 Last Edit by ZHANNA Guillaume on 11/19/24 09:27 UA Blood 10 Jose Angel/uL Last Edit by ZHANNA Guillaume on 11/19/24 09:27 UA Specific [place] 1.010 Last Edit by ZHANNA Guillaume on 11/19/24 09: 27 UA Ketone Negative Last Edit by ZHANNA Guillaume on 11/19/24 09:27 UA Bilirubin 0 mg/dL Last Edit by ZHANNA Guillaume on 11/19/24 09:27 UA Glucose 0 mg/dL Last Edit by ZHANNA Guillaume on 11/19/24 09:27 Results Reviewed Results Reviewed: Laboratory Last Values Urine pH (Auto) 6.0 11/19/24 09:26 Specific [place] (Auto) 1.010 11/19/24 09:26 Urine Protein (Auto) 0 mg/dL 11/19/24 09:26 Glucose (UA)(Auto) 0 mg/dL 11/19/24 09:26 Urine Ketones (Auto) Negative 11/19/24 09:26 Urine Blood (Auto) 10 Jose Angel/uL 11/19/24 09:26 Urine Nitrite (Auto) Negative 11/19/24 09:26 Urine Bilirubin (Auto) 0 mg/dL 11/19/24 09:26 Urine Urobilinogen (Auto) 3.5 mg/dL 11/19/24 09:26 Leukocyte Esterase (Auto) 0 Ernesto/uL 11/19/24 09:26 Assessment & Plan Assessment & Plan (1) BPH w urinary obs/LUTS: Code(s): N40.1 - Benign prostatic hyperplasia with lower urinary tract symptoms; N13.8 - Other obstructive and reflux uropathy Category: Medical (2) Nocturia more than twice per night: Code(s): R35.1 - Nocturia Category: Medical Plan Restart terazosin Three-month follow-up Orders: Orders AMB Urinalysis Automated Today Z13.9 - Encounter for screening, unspecified US renal BI 11/12/24 N13.1 - Hydronephrosis with ureteral stricture, not elsewhere classified, N20.0 - Calculus of kidney, N20.1 - Calculus of ureter AMB Cystoscopy Today N13.1 - Hydronephrosis with ureteral stricture, not elsewhere classified, N20.0 - Calculus of kidney, N20.1 - Calculus of ureter Patient Instructions: This note is constructed using voice recognition software. While every effort has been made to ensure accuracy rn progressive care errors may have been included. Imaging studies, laboratory and physical exam results were discussed and reviewed in detail. No major barriers to patient understanding were identified. An opportunity to ask questions regarding the treatment plan was provided. All questions were answered. The patient expressed understanding and agreement with the above treatment plan. The patient is aware they should contact our office by phone for worsening of their current condition or the appearance of new urologic symptoms. Compliance is encouraged with any medications and followup testing that is ordered. It is a privilege to participate in the urologic care of your patient. If you have any questions or concerns regarding treatment for the above conditions, or other urologic issues, please do not hesitate to contact me. The office telephone contact is [phone]. Sincerely, Dr Kishore Dorsey MD, [facility] - Urology Compassionate Specialist Care for the Genitourinary System Coding Level of Care Code Est Pt Level 3 (98821) Diagnoses BPH w urinary obs/LUTS N40.1; N13.8 Nocturia more than twice per night R35.1 CPT Codes Cystoscopy - CPT: 01835-[id number] ([id number])
--- OUTSIDE RECORDS SUMMARY | 2024-11-19 09:43 | XMS_ITS | Encounter Summary ---
Author Organization [employer] Address [address] [place] [address] Care Team Providers Care Medical Staff Services Manager Name Role Phone Ashley Frankel MD Primary Care Provider [phone] Viktor November Unavailable Kishore Dorsey MD Unavailable [phone] Raheel Gee Unavailable [phone] Riya Fulton Unavailable Sergio Hackett Unavailable Unavailable Dominga Silva PharmD Unavailable Reason for Visit * Reason Comments Med Change Request Encounter Details Date Type Department Care Team (Late st Contact Info) Description 07/12/2023 Refill [facility] [address] [place], [place] [phone] Ashley Frankel MD [address] [place], [place] [phone] Social History Tobacco Use Types Packs/Day Years [...] Description 12/09/2024 8:00 AM EDT Office Visit [facility] [address] [place] [address] Jackie Peacock 01/23/2025 9:45 AM EDT Office Visit [facility] [address] [place] [address] Ashley Frankel MD [address] [place] [address] documented as of this encounter Visit Diagnoses Not on filedocumented in this encounter Care Teams Medical Staff Services Manager Relationship Specialty Start Date End Date Ashley Frankel MD [address] [place] [address] PCP - General Family Medicine 08/28/18November [address]rd [place] [address] Gastroenterology 07/17/24 Kishore Dorsey MD [address] [place] [address] Urology 07/17/24 Raheel Gee [address] [place], [place] [address] Pulmonary Disease 07/17/24 Riya Fulton [address] [facility] 3rd [place] [address] Cardiology 07/17/24 Sergio Hackett [address] [facility] [address] [address] [place] [address] Orthopaedic Surgery 07/17/24 Dominga Silva, Mehrdad [address] [place] [id number] Pharmacist Internal Medicine 07/22/24 De. Dalal Psychiatry 10/10/24 documented as of this encounter
--- OUTSIDE RECORDS SUMMARY | 2024-11-19 09:43 | XMS_ITS | Encounter Summary ---
Author Organization [employer] Address 75 [facility] 7t [place] [address] Care Team Providers Care Client Support Analyst Name Role Phone Ashley Frankel MD Primary Care Provider [phone]- [phone] Viktor November Unavailable Kishore Dorsey MD Unavailable Raheel Gee Unavailable [phone] Riya Fulton Unavailable Sergio Hacektt Unavailable Unavailable Dominga SilvaD Unavailable Reason for Visit * Reason Comments Back Pain Encounter Details Date Type Department Care Team (Late st Contact Info) Description 10/26/2024 9:20 AM EST Office Visit [facility] [address] [place] [address] [phone] Bryan Coleman MD [address] [place], [place] [phone] Acute right-sided low back pain with bilateral [...] 59 y.o. male who presents to Monday [facility] due to right lower back pain and [...] daily prn constipation Patient presents to Monday [facility] due to right lower back pain and [...] Description 12/09/2024 8:00 AM EDT Office Visit [facility] [address] [place] [address] Jackie Peacock 01/23/2025 9:45 AM EDT Office Visit [facility] [address] [place] [address] Ashley Frankel MD [address] [place] [address] Scheduled Orders Name Type Priority Associated Diagnoses [...] Expiration Date Urine 10/26/2024 9:35 AM EST us Bryan Coleman MD POINT OF CARE TEST ENTER/EDIT OR DERABLES Final Result documented in this encounter Visit Diagnoses Diagnosis Acute right-sided low back pain with bilateral sciatica- Primary Nephrolithiasis Calculus of kidney Constipation, unspecified constipation type documented in this encounter Additional Health Concerns Assessment Noted Time PHQ-9 Depression Total Score: 0 07/17/20 10:33 AM EST documented as of this encounter Care Teams Client Support Analyst Relationship Specialty Start Date End Date Ashley Frankel MD [address] [place] [address] PCP - General Family Medicine 08/28/[address] 3rd [place] [address] Gastroenterology 07/17/24 Kishore Dorsey MD [address] [place] [address] Urology 07/17/24 Raheel Gee 5 [place], [place] [address] Pulmonary Disease 07/17/24 Riya Fulton 11 [facility] 3rd [place] [address] Cardiology 07/17/24 Sergio Hackett [address] [place] [address] Orthopaedic Surgery 07/17/24 Dominga Silva, AnanthD [address] [place] [address] Pharmacist Internal Medicine 07/22/24 [facility] 10/10/24 documented as of this encounter
--- OUTSIDE RECORDS SUMMARY | 2024-11-19 09:43 | XMS_ITS | Encounter Summary ---
Author Organization [employer] Address [address] [place] [address] 7t [place] [address] Care Team Providers Care Progress Clerk Name Role Phone Ashley Frankel MD Primary Care Provider [phone]- [phone] Viktor November Unavailable Kishore Dorsey MD Unavailable [phone] Raheel Gee Unavailable [phone] Riya Fulton Unavailable Sergio Hackett Unavailable Unavailable Dominga Silva PharmD Unavailable Reason for Visit * Reason Onset Date Comments Appointment Request 08/05/2024 Encounter Details Date Type Department Care Team (Late st Contact Info) Description 08/05/[address] [facility] [address] [place] [address] Ashley Frankel MD 230 [place] [address] Appointment Request Social History Tobacco [...] the past 12 months, has t he [employer] gas, oil or water company threatened to [...] [facility] 230 [place] [address] Jackie Peacock 01/23/2025 9:45 AM EDT Office Visit [facility] [address] [place] [address] Ashley Frankel MD 230 [place] [address] documented as of this encounter Visit Diagnoses Not on filedocumented in this encounter Additional Health Concerns Assessment Noted Time PHQ-9 Depression Total Score: 0 07/17/20 10:33 AM EST documented as of this encounter Care Teams Progress Clerk Relationship Specialty Start Date End Date Ashley Frankel MD 230 [place] [address] PCP - General Family Medicine 08/28/18 Sonya Hoang [address] [place] [address] Gastroenterology 07/17/24 Kishore Dorsey MD [address] [place] [address] Urology 07/17/24 Raheel Gee 5 [place], [place] 1040 Pulmonary Disease 07/17/24 Riya Fulton 11 [facility] 3rd [place] [address] Cardiology 07/17/24 Sergio Hackett [address] [place] [address] Orthopaedic Surgery 07/17/24 Dominga Silva, Mehrdad 230 [place] [address] Pharmacist Internal Medicine 07/22/24 [facility] 10/10/24 documented as of this encounter
--- OUTSIDE RECORDS SUMMARY | 2024-11-19 09:43 | XMS_ITS | Encounter Summary ---
Author Organization [employer] Address 75 [facility] 7t [place] [address] Care Team Providers Care Hospice Music Therapist Name Role Phone Ashley Frankel MD Primary Care Provider [phone]- [phone] Hoang November Unavailable Kishore Dorsey MD Unavailable Raheel Gee Unavailable [phone] Riya Fulton Unavailable Sergio Hackett Unavailable Unavailable Dominga Silva PharmD Unavailable Encounter Details Date Type Department Care Team (Late st Contact Info) Description 10/24/2024 Orders Only [facility] External Provider, [facility] Social History Tobacco Use Types Packs/Day [...] Description 12/09/2024 8:00 AM EDT Office Visit [facility] [address] [place] [address] Jackie Peacock 01/23/2025 9:45 AM EDT Office Visit [facility] [address] [place] [address] Ashley Frankel MD 230 [place] [address] documented as of this encounter Procedures Procedure [...] Sensitivity Troponin I (10/24/2024 4:58 PM EST) [facility] [address] TROPONIN I HIGH SENSITIVITY 3.4 <3.5 - 35.0 ng/L [facility] Comment:The Schmidt high sens itivity Troponin-I results should beused in conjunction with other diagnostic information suchas ECG, clinical observations and information, and patientsymptoms to aid in the diagnosis of AR. 10/24/2024 4:58 PM EST 10/24/2024 5:02 PM EST Generic External Data Provider LAB BLOOD ORDERAB LES Final Result Performing Organization Address [facility] Co de Phone Number [facility] [address] [place] [phone] * High Sensitivity Troponin I (10/24/2024 2:30 PM EST) [facility] [address] TROPONIN I HIGH SENSITIVITY 4.1 <3.5 - 35.0 ng/L [facility] Comment:The Schmidt high sens itivity Troponin-I results should beused in conjunction with other diagnostic information suchas ECG, clinical observations and information, and patientsymptoms to aid in the diagnosis of AR. 10/24/2024 2:30 PM EST 10/24/2024 2:33 PM EST Generic External Data Provider LAB BLOOD ORDERAB LES Final Result Performing Organization Address [facility] Co de Phone Number [facility] [address] [place] [phone] * B Type Natriuretic Peptide (BNP) (10/24/2024 2:30 PM EST) [facility] [address] B Type Natriuretic Peptide 32 <100 pg/mL [facility] Comment:For those patients w ho are being treated with Natrecor(nesiritide, recombinant BNP), BNP testing should beperformed at least two hours post treatment in order toensure that only endogenous levels of BNP are detected. 10/24/2024 2:30 PM EST 10/24/2024 2:33 PM EST us Generic External Data Provider LAB BLOOD ORDERAB LES Final Result [facility] [address] [place], [place] [phone] * (ABNORMAL) Comprehensive Metabolic Panel (10/24/2024 2:30 PM EST) Sodium 141 135 - 145 mmol/L [facility] Potassium 3.8 3.3 - 5.1 mmol/L [facility] Chloride 108 96 - 108 mmol/L [facility] Carbon Dioxide 28 22 - 29 mmol/L [facility] Anion Gap 9(L) 12 - 20 [facility] Urea Nitrogen (BUN) 12 9 - 16 mg/dL [facility] Creatinine, Serum 0.91 0.5 - 1.4 mg/dL [facility] Creatinine Clr Calc Pharmacy 80.7 [facility] Comment:eGFR (calculated fro m the MDRD study equation) and eCrCl(calculated from the Cockcroft-Gault equation) are based ondifferent parameters and may not yield comparable results.If eCrCl result is absurd, please check patient'sheight/weight. Estimated Glomerular Filt Rate >60 [facility] Comment:Chronic Kidney Disea se: Estimated GFR < 60 mL/min/1.67h8Mgsqpa Kidney Disease: Estimated GFR < 15 mL/min/1.73m2 Glucose 197(H) 60 - 115 mg/dL [facility] Calcium 8.9 8.4 - 10.2 mg/dL [facility] Bilirubin, Total 0.7 0.0 - 1.0 mg/dL [facility] Aspartate Amino Transferase 22 5 - 37 U/L [facility] Alanine Aminotransferase 12 0 - 40 U/L [facility] Total Protein 6.8 6.5 - 8.0 g/dL [facility] Albumin Level 3.9 3.5 - 5.0 g/dL [facility] Alkaline Phosphatase 88 39 - 117 U/L [facility] 10/24/2024 2:30 PM EST 10/24/2024 2:33 PM EST Generic External Data Provider LAB BLOOD ORDERAB LES Final Result Performing Organization Address [facility] Co de Phone Number [facility] [address] [place] [phone] * Partial Thromboplastin Time, Activated (APTT) (10/24/2024 2:30 PM EST) Partial Thromboplastin Time 35.7 26.0 - 36.8 SEC [facility] Comment:For information rega rding the monitoring of direct thrombininhibitors, please refer to Pharmacy. 10/24/2024 2:30 PM EST 10/24/2024 2:33 PM EST Generic External Data Provider LAB BLOOD ORDERAB LES Final Result Performing Organization Address [facility] de Phone Number [facility] [address] [place] [phone] * Prothrombin Time-INR (10/24/2024 2:30 PM EST) Prothrombin Time 10.9 10.9 - 12.4 SEC [facility] INTERNATIONAL NORM RATIO 0.9 0.9 - 1.1 [facility] Comment:INTERNATIONAL NORMAL IZED RATIO (INR) [...] Provider LAB BLOOD ORDERAB LES Final Result [facility] [address] [place] [address] [phone] * (ABNORMAL) CBC auto differential (10/24/2024 2:30 PM EST) White Blood Count 5.1 4.8 - 10.8 X10*3/uL [facility] Red Blood Count 4.31(L) 4.60 - 5.80 X10*6/uL [facility] Hemoglobin 13.0(L) 14.0 - 18.0 g/dl [facility] Hematocrit 39.1(L) 42.0 - 52.0 % [facility] Mean Corpuscular Volume 90.7 80.0 - 98.0 fL [facility] Mean Corpuscular Hemoglobin 30.2 27.0 - 33.0 pg [facility] Mean Corpuscular HGB Conc 33.2 31.0 - 36.0 g/dl [facility] Red Cell Distribution Width 12.6 11.0 - 16.0 % [facility] Platelet Count 290 160 - 400 X10*3/uL [facility] Mean Platelet Volume 9.7 9.4 - 12.4 fL [facility] Neutrophils Percent Auto 68.7 45 - 73 % [facility] Imm Gran Pct Auto 0.2 0.0 - 0.4 % [facility] Lymphocytes Percent Auto 19.5(L) 20 - 40 % [facility] Monocytes Percent Auto 9.8 2 - 11 % [facility] Eosinophils Percent Auto 1.2 0 - 4 % [facility] Basophils Percent Auto 0.6 0 - 2 % [facility] NRBC Pct Auto 0.0 0.0 - 0.2 /100WBC [facility] Neutrophils Absolute Auto 3.5 2.0 - 8.3 x10*3/uL [facility] Imm Gran Abs Auto 0.01 0.00 - 0.03 X10*3/uL [facility] Lymphocytes Absolute Auto 1.0(L) 1.2 - 4.9 X10*3/uL [facility] Monocytes Absolute Auto 0.5 0.1 - 1.2 X10*3/uL [facility] Eosinophils Absolute Auto 0.1 0.0 - 0.4 X10*3/uL [facility] Basophils Absolute Auto 0.0 0.0 - 0.2 X10*3/uL [facility] NRBC Abs Auto 0.000 0.0 - 0.012 X10*3/uL [facility] 10/24/2024 2:30 PM EST 10/24/2024 2:33 PM EST us Generic External Data Provider LAB BLOOD ORDERAB LES Final Result [facility] [address] [place] [phone] [phone] * XR Chest 1 View (10/24/2024 1:22 PM EST) Anatomical Region Laterality Modality Chest Radiographic Hannah ging 10/24/2024 1:22 PM EST Narrative 10/24/2024 1:45 PM EST ? [facility] ?[address] ?[place] [address] ?XRay Report ? Signed ? Patient: Krista,Bobby ?MR#: [id number] ? : 1965 ?Acct:[id number] ? Age/Sex: 59 / M ?ADM Date: 10/24/ ? Loc: HO.ED ? Attending Dr: ? Ordering Physician: Alexy Yang ?? Date of Service: 02/27/25 ?? Procedure(s): XR chest 1V ?? Accession Number(s): [id number] ? cc: Alexy Yang; Ashley Frankel MD [...] DD/ 1322 ? TD/TT: 10/24/24 1336 ? Cardroom Manager: ? Procedure Note Donjacobter, Image - 10/24/2024 [place] [address] XRay Report Signed Patient: Pierce Velasco#: [id number] : 1965Acct:[id number] Age/Sex: 59 / MADM Date: 10/24/24 Loc: HO.ED Attending Dr: Ordering Physician: Alexy Yang Date of Service: 10/24/24 Procedure(s): XR chest 1V Accession Number(s): [id number] cc: Alexy Yang; Ashley Frankel MD EXAMINATION: [...] Jeffrey Roldan MD 10/24/2024 01:42 PM EST Dictated By: Jeffrey Downing MD Signed By: <Electronically signed by Jeffrey Weems MDin OV> 10/24/24 1342 DD/ 1322 TD/TT: 10/24/24 1336 Cardroom Manager: [facility] External Provider IMG XR PROCEDURES Final Result documented in this encounter Visit Diagnoses Not on filedocumented in this encounter Additional Health Concerns Assessment Noted Time PHQ-9 Depression Total Score: 0 07/17/20 10:33 AM EST documented as of this encounter Care Teams Hospice Music Therapist Relationship Specialty Start Date End Date Ashley Frankel MD [address] [place] [address] PCP - General Family Medicine 08/28/18November [address] [address] Gastroenterology 07/17/24 Kishore Dorsey MD 10 [facility] [address] [place] [address] Urology 07/17/24 Raheel Gee 5 [place], [place] 10[address] Pulmonary Disease 07/17/24 Riya Fulton [address] [address] Cardiology 07/17/24 Sergio Hackett [address] [place] [address] Orthopaedic Surgery 07/17/24 Dominga Silva, Mehrdad [address] [place] [address] Pharmacist Internal Medicine 07/22/24 [facility] 10/10/24 documented as of this encounter
--- OUTSIDE RECORDS SUMMARY | 2024-11-19 09:43 | XMS_ITS | Encounter Summary ---
Author Organization [employer] Address 75 [facility] 7t [place] [address] Care Team Providers Care Lending Advisor Name Role Phone Ashley Frankel MD Primary Care Provider [phone]- [phone] Viktor November Unavailable Kishore Dorsey MD Unavailable Raheel Gee Unavailable [phone] Riya Fulton Unavailable Sergio Hackett Unavailable Unavailable Dominga Silva PharmD Unavailable Encounter Details Date Type Department Care Team (Late st Contact Info) Description 10/28/2024 Telephone [facility] [address] [place], [place] [phone] Ashley Frankel MD 230 [place], [place] [phone] Social History Tobacco Use Types Packs/Day Years [...] for patient to contact Arminda Baker at [phone]. documented in this encounter Plan of Treatment Upcoming Encounters Date Type Department Care Team (Late st Contact Info) Description 12/09/2024 8:00 AM EDT Office Visit [facility] [address] [place] [address] Jackie Peacock 01/23/2025 9:45 AM EDT Office Visit [facility] [address] [place] [address] Ashley Frankel MD [address] [place] [address] documented as of this encounter Visit Diagnoses Not on filedocumented in this encounter Additional Health Concerns Assessment Noted Time PHQ-9 Depression Total Score: 0 07/17/20 24 10:33 AM EST documented as of this encounter Care Teams Lending Advisor Relationship Specialty Start Date End Date Ashley Frankel MD [address] [place] [address] PCP - General Family Medicine 08/28/18 Viktor November [address] 3rd [place] [address] Gastroenterology 07/17/24 Kishore Dorsey MD [address] [place] [address] Urology 07/17/24 Raheel Gee 5 [place], [place] 1040 Pulmonary Disease 07/17/24 Riya Fulton [address] [address] Cardiology 07/17/24 Sergio Hackett [address] [place] [address] Orthopaedic Surgery 07/17/24 Dominga Silva, Mehrdad 230 [place] [address] Pharmacist Internal Medicine 07/22/24 [facility] 10/10/24 documented as of this encounter
--- OUTSIDE RECORDS SUMMARY | 2024-11-19 09:43 | XMS_ITS | Encounter Summary ---
Author Organization [employer] Address [address] [facility] 7t [place] [address] Care Team Providers Care Band Builder Name Role Phone Ashley Frankel MD Primary Care Provider [phone] Viktor November Unavailable Kishore Dorsey MD Unavailable Raheel Gee Unavailable [phone] Riya Fulton Unavailable Sergio Hackett Unavailable Unavailable Dominga SilvaD Unavailable Encounter Details Date Type Department Care Team (Late st Contact Info) Description 10/26/2024 Orders Only [facility] MEDICINE 230 [place], [place] [phone] Bryan Coleman MD 230 [place], [place] [phone] Social History Tobacco Use Types Packs/Day Years [...] Description 12/09/2024 8:00 AM EDT Office Visit [facility] ADULT DENTAL [address] [place] [address] Jackie Peacock 01/23/2025 9:45 AM EDT Office Visit [facility] MEDICINE [address] [place] [address] Ashley Frankel MD [address] [place] [address] documented as of this encounter Procedures Procedure Name Priority Date/Time Associated Diagnosis Comments CULTURE, URINE, ROUTINE Routine 10/26/2024 9:30 AM EST documented in this encounter Results * Culture, Urine, Routine (10/26/2024 9:30 AM EST) Urine Urine specimen obtained by clean catch procedure / Unknown 10/26/2024 9:30 AM EST 10/26/2024 2:18 PM EST Comment:[facility] - 10/28/2024 8:45 AM EST Urine Culture No growth. Specimen Source: Urine clean catch Bryan Coleman MD LAB MICROBIOLOGY - GENERAL ORDER MAN Final Result [facility] [address] [place] [address] [phone] documented in this encounter Visit Diagnoses Not on filedocumented in this encounter Additional Health Concerns Assessment Noted Time PHQ-9 Depression Total Score: 0 07/17/20 10:33 AM EST documented as of this encounter Care Teams Band Builder Relationship Specialty Start Date End Date Ashley Frankel MD [address] [place] [address] PCP - General Family Medicine 08/28/18Hoang, November [address] [facility] 3rd [place] [address] Gastroenterology 07/17/24 Kishore Dorsey MD [address] [place] [address] Urology 07/17/24 Raheel Gee 5 [place], [place] 10[address] Pulmonary Disease 07/17/24 Riya Fulton 11 [facility] 3rd [place] [address] Cardiology 07/17/24 Sergio Hackett [address] [place] [address] Orthopaedic Surgery 07/17/24 Dominga Silva, AnanthD [address] [place] [address] Pharmacist Internal Medicine 07/22/24 [facility] Psych[facility] 10/10/24 documented as of this encounter
--- OUTSIDE RECORDS SUMMARY | 2024-11-19 09:43 | XMS_ITS | Encounter Summary ---
Author Organization [employer] Address 75 [facility] 7t [place] [address] Care Team Providers Care Gas Booster Engineer Name Role Phone Ashley Frankel MD Primary Care Provider [phone]- [phone] Hoang, November Unavailable Kishore Dorsey MD Unavailable Raheel Gee Unavailable [phone] Riya Fulton Unavailable Sergio Hackett Unavailable Unavailable Dominga Silva PharmD Unavailable [phone] Encounter Details Date Type Department Care Team (Late st Contact Info) Description 07/18/2023 Telephone [facility] 230 [place], [place] [phone] Ashley Frankel MD [address] [place], [place] [phone] Social History Tobacco Use Types Packs/Day Years [...] Bia Rose - 08/10/2023 1:42 PM EST Cnc Cutting Operator called pt to request verification of insurance/Medicare [...] Description 12/09/2024 8:00 AM EDT Office Visit [facility] [address] [place] [address] Jackie Peacock 01/23/2025 9:45 AM EDT Office Visit [facility] [address] [place] [address] Ashley Frankel MD [address] [place] [address] documented as of this encounter Visit Diagnoses Not on filedocumented in this encounter Care Teams Gas Booster Engineer Relationship Specialty Start Date End Date Ashley Frankel MD [address] [place] [address] PCP - General Family Medicine 08/28/18 Sonya Hoang [address] 3rd [place] [address] Gastroenterology 07/17/24 Kishore Dorsey MD [address] [place] [address] Urology 07/17/24 Raheel Gee 5 [place], [place] 10[address] Pulmonary Disease 07/17/24 Riya Fulton 11 [facility] 3rd [place] [address] Cardiology 07/17/24 Sergio Hackett [address] [place] [address] Orthopaedic Surgery 07/17/24 Dominga Silva, AnanthD [address] [place] [address] Pharmacist Internal Medicine 07/22/24 [facility] 10/10/24 documented as of this encounter
--- OUTSIDE RECORDS SUMMARY | 2024-11-19 09:43 | XMS_ITS | Encounter Summary ---
Author Organization [email or web address] Address 75 [facility] 7t [place] [address] Care Team Providers Care Hand Iii Cutter Name Role Phone Ashley Frankel MD Primary Care Provider [phone]- [phone] Hoang, November Unavailable Kishore Dorsey MD Unavailable [phone] Raheel Gee Unavailable [phone] Riya Fulton Unavailable Sergio Hackett Unavailable [...] Description 12/09/2024 8:00 AM EDT Office Visit [facility] [address] [place] [address] Jackie Peacock 01/23/2025 9:45 AM EDT Office Visit [facility] [address] [place] [address] Ashley Frankel MD [address] [place] [address] documented as of this encounter Visit Diagnoses Not on filedocumented in this encounter Additional Health Concerns Assessment Noted Time PHQ-9 Depression Total Score: 0 07/17/20 10:33 AM EST documented as of this encounter Care Teams Hand Iii Cutter Relationship Specialty Start Date End Date Ashley Frankel MD [address] [place] [address] PCP - General Family Medicine 08/28/18November [address] 3rd [place] [address] Gastroenterology 07/17/24 Kishore Dorsey MD [address] [facility] [place] [address] Urology 07/17/24 Raheel Gee 5 [place], [place] 10[address] Pulmonary Disease 07/17/24 Riya Fulton 11 [facility] 3rd [place] [address] Cardiology 07/17/24 Sergio Hackett [address] [place] [address] Orthopaedic Surgery 07/17/24 Dominga Silva, AnanthD [address] [place] [phone] Pharmacist Internal Medicine 07/22/24 [facility] 10/10/24 documented as of this encounter
--- OUTSIDE RECORDS SUMMARY | 2024-11-19 09:43 | XMS_ITS | Encounter Summary ---
Author Organization [employer] Address [address] [facility] 7t [place] [address] Care Team Providers Care It Support Specialist Name Role Phone Ashley Frankel MD Primary Care Provider +1- [phone] Hoang, November Unavailable Kishore Dorsey MD Unavailable Raheel Gee Unavailable [phone] Riya Fulton Unavailable Sergio Hackett Unavailable Unavailable Dominga Silva PharmD Unavailable Reason for Visit * Reason Comments Med Refill Encounter Details Date Type Department Care Team (Late st Contact Info) Description 07/24/2023 Refill [facility] [address] [place] [address] [facility] [address] [place], [place] [phone] Prostatitis, acute Social History Tobacco Use Types [...] Description 12/09/2024 8:00 AM EDT Office Visit [facility] [address] [place] [address] Jackie Peacock 01/23/2025 9:45 AM EDT Office Visit [facility] [address] [place] [address] Ashley Frankel MD [address] [place] [address] documented as of this encounter Visit Diagnoses Diagnosis Prostatitis, acute Acute prostatitis documented in this encounter Care Teams It Support Specialist Relationship Specialty Start Date End Date Ashley Frankel MD 230 [place] [address] PCP - General Family Medicine 08/28/18November [address] 3rd [place] [address] Gastroenterology 07/17/24 Kishore Dorsey MD [address] [place] [address] Urology 07/17/24 Raheel Gee 5 [place], [place] 10[address] Pulmonary Disease 07/17/24 Riya Fulton [address] [facility] 3rd [place] [address] Cardiology 07/17/24 Sergio Hackett [address] [place] [address] Orthopaedic Surgery 07/17/24 Dominga Silva, AnanthD [address] [place] [address] Pharmacist Internal Medicine 07/22/24 [facility] 10/10/24 documented as of this encounter
--- OUTSIDE RECORDS SUMMARY | 2024-11-19 09:43 | XMS_ITS | Encounter Summary ---
Author Organization [email or web address] Address [address] [place] [address] [place] [address] Care Team Providers Care Freelance Copywriter Name Role Phone Ashley Frankel MD Primary Care Provider +1- [phone] Viktor November Unavailable Kishore Dorsey MD Unavailable Raheel Gee Unavailable [phone] Riya Fulton Unavailable Sergio Hackett Unavailable Unavailable Dominga Silva PharmD Unavailable Reason for Referral * Consultation (Routine) - Authorized Specialty Diagnoses / Procedures Referred By Jeromy worrell Referred To Contact Pharmacy Diagnoses Primary hypertension Ashley Frankel MD [address] [place] [address] Phone: tel: fax: Referral ID Status Reason Start Date Expiration Date Visits Requested Visits Authorized [id number] Authorized Continuity of Care 10/24/2024 10/24/2025 6 6 * Consultation (Routine) - Authorized Specialty Diagnoses / Procedures Referred By Jeromy worrell Referred To Contact Pharmacy Diagnoses Primary hypertension Ashley Frankel MD [address] [place] [address] Phone: tel: fax: Referral ID Status Reason Start Date Expiration Date Visits Requested Visits Authorized [id number] Authorized Consult and Treat 10/24/2024 10/24/2025 6 6 Reason for Visit * Reason Comments follow up bp Encounter Details Date Type Department Care Team (Latest Contact Info) Description 10/24/2024 9:15 AM EST Office Visit [facility] [address] [place] [address] Ashley Frankel MD 230 [place] [address] Primary hypertension (Primary Dx); Weight loss, non-intentional; [...] 10/24/24 * Assessment & Plan Note - Homreo Pathak - 10/24/2024 9:09 AM ESTAssociated Problem(s): [...] Description 12/09/2024 8:00 AM EDT Office Visit [facility] ADULT DENTAL [address] [place] [address] Jackie Peacock 01/23/2025 9:45 AM EDT Office Visit [facility] [address] [place] [address] Ashley Frankel MD 230 [place] [address] Scheduled Referrals Name Type Priority Associated Diagnoses [...] 9:22 AM EST) HIV AB/AG Nonreactive Nonreactive [facility] Comment:HIV-1 p24 Ag and/or HIV-1/HIV-2 Ab not detected.A test result that is nonreactive does not exclude thepossibility of exposure to or infection with HIV-1 and/orHIV-2. Nonreactive results in this assay for individualswith prior exposure to HIV-1 and/or HIV-2 may be due toantigen and antibody levels that are below the limit ofdetection of this assay.The [employer] HIV Ag/Ab Combo assay result andsupplemental assay results should be interpreted inconjunction with the patient's clinical presentation,history and other laboratory results. If the results areinconsistent with clinical evidence, additional testing issuggested to confirm the result. Blood Venous blood specimen / Unknown 10/24/2024 9:22 AM EST 10/24/2024 11:48 AM EST us Ashley Frankel MD LAB BLOOD ORDERABLES Final Result [facility] [address] [place] [phone] * TSH W/Reflex to FT4 (10/24/2024 9:22 AM EST) TSH reflex Free T4 1.31 0.32 - 4.0 uIU/mL [facility] Blood Venous blood specimen / Unknown 10/24/2024 9:22 AM EST 10/24/2024 11:48 AM EST Ashley Frankel MD LAB BLOOD ORDERABLES Final Result Performing Organization Address City/[facility] Co de Phone Number [facility] [address] [place] [phone] * Vitamin D, 25-Hydroxy, Total, Immunoassay (10/24/2024 9:22 AM EST) Vitamin D 25-OH Total 39.3 >30 ng/mL [facility] Comment:Health Based Referen ce Values*< 20 ng/mL [id number] ng/mL Insufficient> 30 ng/mL Sufficient*Colleen GILL. N [...] BLOOD ORDERABLES Final Result Performing Organization Address [facility] Co de Phone Number [facility] [address] [place] [phone] * Lactate Dehydrogenase (LD) (10/24/2024 9:22 AM EST) Lactate Dehydrogenase 248 118 - 273 U/L [facility] Blood Venous blood specimen / Unknown 10/24/2024 9:22 AM EST 10/24/2024 11:48 AM EST Ashley Frankel MD LAB BLOOD ORDERABLES Final Result Performing Organization Address [facility] Co de Phone Number [facility] [address] [place] [address] [phone] documented in this encounter Visit Diagnoses [...] documented as of this encounter Care Teams Freelance Copywriter Relationship Specialty Start Date End Date Ashley Frankel MD 230 [place] [address] PCP - General Family Medicine 08/28/18 Viktor Sonya 11 [facility] 3rd [place] [address] Gastroenterology 07/17/24 Kishore Dorsey MD 10 [facility] [address] [place] [address] Urology 07/17/24 Raheel Gee 5 [place], [place] 1040 Pulmonary Disease 07/17/24 Riya Fulton [address] [facility] [address] [place] [address] Cardiology 07/17/24 Sergio Hackett [address] [place] [address] Orthopaedic Surgery 07/17/24 Dominga Silva, AnanthD 230 [place] [address] Pharmacist Internal Medicine 07/22/24 De[facility] 2/13/25 documented as of this encounter
--- OUTSIDE RECORDS SUMMARY | 2024-11-19 09:43 | XMS_ITS | Encounter Summary ---
Author Organization [employer] Address [address] [facility] 7t [place] [address] Care Team Providers Care Singer Songwriter Name Role Phone Ashley Frankel MD Primary Care Provider [phone]- [phone] Hoang November Unavailable Kishore Dorsey MD Unavailable Raheel Gee Unavailable [phone] Riya Fulton Unavailable Sergio Hackett Unavailable Unavailable Dominga Silva PharmD Unavailable Encounter Details Date Type Department Care Team (Late st Contact Info) Description 10/31/2024 Orders Only GENERIC EXTERNAL DATA DEPARTMENT Provider, [...] Office Visit [facility]ULT [facility] [address] [place] [address] Jackie Peacock 01/23/2025 9:45 AM EDT Office Visit [facility] MED[facility] [address] [place] [address] Ashley Frankel MD 230 [place] [address] documented as of this encounter Procedures Procedure Name Priority Date/Time Associated Diagnosis Comments CULTURE, URINE, ROUTINE Routine 10/31/2024 7:59 AM EST documented in this encounter Results * Culture, Urine, Routine (10/31/2024 7:59 AM EST) Urine Urine specimen obtained by clean catch procedure / Unknown 10/31/2024 7:59 AM EST 10/31/2024 5:58 PM EST Comment:[facility] Narrative [facility] - 11/02/2024 10:45 AM EST Urine Culture No growth. Specimen Source: Urine clean catch us Generic External Data Provider LAB MICROBIOLOGY - GENERAL ORDERABLES Final Result [facility] [address] [place] [phone] [phone] documented in this encounter Visit Diagnoses Not on filedocumented in this encounter Additional Health Concerns Assessment Noted Time PHQ-9 Depression Total Score: 0 07/17/20 10:33 AM EST documented as of this encounter Care Teams Singer Songwriter Relationship Specialty Start Date End Date Ashley Frankel MD 230 [place] [address] PCP - General Family Medicine 08/28/[address]rd [place] [address] Gastroenterology 07/17/24 Kishore Dorsey MD [address] [place] [address] Urology 07/17/24 Raheel Gee 5 [place], [place] 1040 Pulmonary Disease 07/17/24 Riya Fulton [address] [address] Cardiology 07/17/24 Sergio Hackett [address] [place] [address] Orthopaedic Surgery 07/17/24 Dominga Silva PharmD 230 [place] [address] Pharmacist Internal Medicine 07/22/24 De[facility] 10/10/24 documented as of this encounter
--- OUTSIDE RECORDS SUMMARY | 2024-11-19 09:43 | XMS_ITS | Encounter Summary ---
Author Organization [employer] Address [address] [place] [address] 7t [place] [address] Care Team Providers Care Physician [facility] Name Role Phone Ashley Frankel MD Primary Care Provider [phone]- [phone] Viktor Sonya Unavailable Kishore Dorsey MD Unavailable Raheel Gee Unavailable [phone] Riya Fulton Unavailable Sergio Hackett Unavailable Unavailable Dominga Silva PharmD Unavailable Encounter Details Date Type Department Care Team (Latest Contact Info) Description 07/04/2019 Abstract [facility] Dental, Provider, DDS Social History [...] Description 12/09/2024 8:00 AM EDT Office Visit [facility]ULT [facility] 230 [place], [place] [phone] Jackie Peacock 01/23/2025 9:45 AM EDT Office Visit [facility] 230 [place] [address] Ashley Frankel MD 230 [place], [place] [phone] documented as of this encounter Visit Diagnoses Not on filedocumented in this encounter Care Teams Physician [facility] Relationship Specialty Start Date End Date Ashley Frankel MD 230 [place] [address] PCP - General Family Medicine 08/28/18 Viktor Sonya [address] 3rd [place] [address] Gastroenterology 07/17/24 Kishore Dorsey MD [address] [place] [address] Urology 07/17/24 Raheel Gee 5 [place], [place] 1040 Pulmonary Disease 07/17/24 iRya Fulton 11 [facility] 3rd [place] [address] Cardiology 07/17/24 Sergio Hackett [address] [place] [address] Orthopaedic Surgery 07/17/24 Dominga Silva, Mehrdad 230 [place] [address] Pharmacist Internal Medicine 07/22/24 Norm[facility] 10/10/24 documented as of this encounter
--- OUTSIDE RECORDS SUMMARY | 2024-11-19 09:43 | XMS_ITS | Encounter Summary ---
Author Organization [employer] Address [address] [facility] 7t [place] [address] Care Team Providers Care Hangersmith Name Role Phone Ashley Frankel MD Primary Care Provider [phone]- [phone] Viktor November Unavailable Kishore Dorsey MD Unavailable Raheel Gee Unavailable [phone] Riya Fulton Unavailable Sergio Hackett Unavailable Unavailable Dominga Silva PharmD Unavailable Encounter Details Date Type Department Care Team (Late st Contact Info) Description 10/17/2024 Telephone [facility] 230 [place], [place] [phone] Ashley Frankel MD 230 [place], [place] [phone] Social History Tobacco Use Types Packs/Day Years [...] Description 12/09/2024 8:00 AM EDT Office Visit [facility]ULT [facility] [address] [place] [address] Jackie Peacock 01/23/2025 9:45 AM EDT Office Visit [facility] [address] [place] [address] Ashley Frankel MD [address] [place] [address] documented as of this encounter Visit Diagnoses Not on filedocumented in this encounter Additional Health Concerns Assessment Noted Time PHQ-9 Depression Total Score: 0 07/17/20 24 10:33 AM EST documented as of this encounter Care Teams Hangersmith Relationship Specialty Start Date End Date Ashley Frankel MD [address] [place] [address] PCP - General Family Medicine 08/28/18HoangNovember [address] [place] [address] Drive 3rd [place] [address] Gastroenterology 07/17/24 Kishore Dorsey MD [address] [place] [address] Urology 07/17/24 Raheel Gee 5 [place], [place] 1040 Pulmonary Disease 07/17/24 Riya Fulton [address] 3rd [place] [address] Cardiology 07/17/24 Sergio Hackett 300 [facility] 2nd [place] [address] Orthopaedic Surgery 07/17/24 Dominga Silva, AnanthD 230 [place] [address] Pharmacist Internal Medicine 07/22/24 [facility] 10/10/24 documented as of this encounter
--- OUTSIDE RECORDS SUMMARY | 2024-11-19 09:43 | XMS_ITS | Encounter Summary ---
Author Organization [employer] Address [address] [place] [address] 7t [place] [address] Care Team Providers Care Drywall Installer Name Role Phone Ashley Frankel MD Primary Care Provider [phone]- [phone] Viktor Sonya Unavailable Kishore Dorsey MD Unavailable Raheel Gee Unavailable [phone] Riya Fulton Unavailable Sergio Hackett Unavailable Unavailable Dominga Silva PharmD Unavailable Encounter Details Date Type Department Care Team (Late st Contact Info) Description 07/25/2022 Abstract [facility] [address] [place] [address] Dental, Provider, DDS Social History Tobacco Use [...] Description 12/09/2024 8:00 AM EDT Office Visit [facility] 230 [place] [address] Jackie Peacock 01/23/2025 9:45 AM EDT Office Visit [facility] [address] [place] [address] Ashley Frankel MD [address] [place] [address] documented as of this encounter Procedures Procedure [...] on filedocumented in this encounter Care Teams Drywall Installer Relationship Specialty Start Date End Date Ashley Frankel MD [address] [place] [address] PCP - General Family Medicine 08/28/18November [address] 3rd [place] [address] Gastroenterology 07/17/24 Kishore Dorsey MD [address] [place] [address] Urology 07/17/24 Raheel Gee 5 [place], [place] 1040 Pulmonary Disease 07/17/24 Riya Fulton [address] 3rd [place] [address] Cardiology 07/17/24 Sergio Hackett [address] 2nd [place] [address] Orthopaedic Surgery 07/17/24 Dominga Silva, AnanthD [address] [place] [address] Pharmacist Internal Medicine 07/22/24 De[facility] 10/10/24 documented as of this encounter
--- OUTSIDE RECORDS SUMMARY | 2024-11-19 09:43 | XMS_ITS | Encounter Summary ---
Author Organization [employer] Address 75 [facility] 7t [place] [address] Care Team Providers Care Inner Layer Scrubber Tender Name Role Phone Ashley Frankel MD Primary Care Provider [phone]- [phone] Viktor November Unavailable Kishore Dorsey MD Unavailable Raheel Gee Unavailable [phone] Riya Fulton Unavailable Sergio Hackett Unavailable Unavailable Dominga Silva PharmD Unavailable Encounter Details Date Type Department Care Team (Late st Contact Info) Description 11/08/2024 Telephone [facility] 230 [place], [place] [phone] Ashley Frankel MD 230 [place], [place] [phone] Social History Tobacco Use Types Packs/Day Years [...] * Telephone Encounter - Arminda Baker - 11/08/2024 2:46 PM EDT FYI to PCP - patient discharged from [facility] - Hypertension effective today. Patient has had >3 consecutive canceled/no showed pharmacy visits and thus will be removed from the outreach list per existing workflow. If, upon further discussion, you feel patient would benefit from pharmacy services please issue a new referral to re-enroll. Thank you. documented in this encounter Plan of Treatment Upcoming Encounters Date Type Department Care Team (Late st Contact Info) Description 12/09/2024 8:00 AM EDT Office Visit [facility] ADULT D[facility] 230 [place], [place] [phone] Jackie Peacock 01/23/2025 9:45 AM EDT Office Visit [facility] MED[facility] 230 [place], [place] [phone] Ashley Frankel MD 230 [place], [place] [phone] documented as of this encounter Visit Diagnoses Not on filedocumented in this encounter Additional Health Concerns Assessment Noted Time PHQ-9 Depression Total Score: 0 07/17/20 10:33 AM EST documented as of this encounter Care Teams Inner Layer Scrubber Tender Relationship Specialty Start Date End Date Ashley Frankel MD 230 [place] [address] PCP - General Family Medicine 08/28/18HoangNovember [address] [place] [address] Gastroenterology 07/17/24 Kishore Dorsey MD [address] [place] [address] Urology 07/17/24 Raheel Gee 5 [place], [place] 10[address] Pulmonary Disease 07/17/24 Riya Fulton [address] [address] Cardiology 07/17/24 Sergio Hackett [address] [place] [address] Orthopaedic Surgery 07/17/24 Dominga Silva, AnanthD 230 [place] [address] Pharmacist Internal Medicine 07/22/24 De[facility] Psych[facility] 10/10/24 documented as of this encounter
--- OUTSIDE RECORDS SUMMARY | 2024-11-19 09:43 | XMS_ITS | Clinical Summary ---
Author Organization 175 [facility] Address [address] [place] [address] Phone Care Team Providers Care Marketing Consultant Name Role Phone Ashley Frankel MD Primary Care Provider [phone] Allergies Active Allergy Reactions Criticality Noted Date Comments Clindamycin Anaphylaxis,Unknown High 03/29/2012 Doxycycline Diarrhea,Unknown Low 01/31/2023 Penicillins Anaphylaxis,Unknown High 04/06/2012 Other reaction(s): UNKNOWN REACTION-CHILDHOOD Encounters Date Type Department Care Team Description 10/12/2024 3:45 AM EST - 10/12/2024 9:39 AM EST Emergency [facility] Emergency [address] [place] [address] Smith Quan MD Urinary tract infection with hematuria, site unspecified (Primary Dx); Kidney stone; Acute urinary tract infection Discharge Disposition: Home or Self Care from Last 3 Months Medical History Medical History Date Comments Hypertension Diabetes mellitus ([facility]/HCC) Social History Tobacco Use Types Packs/Day Years [...] Care Team (Late st Contact Info) Description 01/14/2025 9:00 AM EDT Consult Orthopedic Surgery - [place] [address] [facility] [address] [place] [address] Raheel Slater, PORTER [address] [address] Health Maintenance Due Date Last Done Comments [...] K/mcL LAB HEMETOLOGY METHOD 10/12/2024 12:01 AM [facility] RBC 4.60 4.50 - 5.50 M/mcL LAB HEMETOLOGY METHOD 10/12/2024 12:01 AM [facility] Hemoglobin 14.1 13.5 - 17.5 g/dL LAB HEMETOLOGY METHOD 10/12/2024 12:01 AM [facility] Hematocrit 42.7 42.0 - 54.0 % LAB HEMETOLOGY METHOD 10/12/2024 12:01 AM [facility] MCV 92.2 79.0 - 98.0 FL LAB HEMETOLOGY METHOD 10/12/2024 12:01 AM [facility] MCH 30.5 27.0 - 32.0 pcg LAB HEMETOLOGY METHOD 10/12/2024 12:01 AM [facility] MCHC 33.0 32.0 - 37.0 g/dL LAB HEMETOLOGY METHOD 10/12/2024 12:01 AM [facility] RDW 12.8 11.0 - 15.0 % LAB HEMETOLOGY METHOD 10/12/2024 12:01 AM [facility] Platelets 327 130 - 400 K/mcL LAB HEMETOLOGY METHOD 10/12/2024 12:01 AM [facility] MPV 10.4 7.0 - 11.0 FL LAB HEMETOLOGY METHOD 10/12/2024 12:01 AM [facility] NRBC 0.0 <1.0 % LAB HEMETOLOGY METHOD 10/12/2024 12:01 AM [facility] NRBC Absolute 0.00 <0.10 K/mcL LAB HEMETOLOGY METHOD 10/12/2024 12:01 AM [facility] Neutrophils Relative 66.8 % LAB HEMETOLOGY METHOD 10/12/2024 12:01 AM [facility] Lymphocytes Relative 21.5 % LAB HEMETOLOGY METHOD 10/12/2024 12:01 AM [facility] Monocytes Relative 9.6 % LAB HEMETOLOGY METHOD 10/12/2024 12:01 AM [facility] Eosinophils Relative 1.2 % LAB HEMETOLOGY METHOD 10/12/2024 12:01 AM [facility] Basophils Relative 0.4 % LAB HEMETOLOGY METHOD 10/12/2024 12:01 AM [facility] Immature Granulocytes Relative 0.5 % LAB HEMETOLOGY METHOD 10/12/2024 12:01 AM [facility] Neutrophils Absolute 5.12 1.50 - 7.00 K/mcL LAB HEMETOLOGY METHOD 10/12/2024 12:01 AM [facility] Lymphocytes Absolute 1.65 1.00 - 5.00 K/mcL LAB HEMETOLOGY METHOD 10/12/2024 12:01 AM [facility] Monocytes Absolute 0.74 0.20 - 1.00 K/mcL LAB HEMETOLOGY METHOD 10/12/2024 12:01 AM [facility] Eosinophils Absolute 0.09 0.00 - 0.50 K/[facility] LAB HEMETOLOGY METHOD 10/12/2024 12:01 AM [facility] Basophils Absolute 0.03 0.00 - 0.20 K/mcL LAB HEMETOLOGY METHOD 10/12/2024 12:01 AM [facility] Immature Granulocytes Absolute 0.04(H) 0.00 - 0.03 K/mcL LAB HEMETOLOGY METHOD 10/12/2024 12:01 AM [facility] Blood Venous blood specimen / Unknown Venipuncture / Unknown 10/11/2024 11:18 PM EST 10/11/2024 11:44 PM EST Smith Quan MD LAB BLOOD ORDERABLES Final Result [facility] [address] [place] [address], * (ABNORMAL) Comprehensive metabolic panel (10/11/2024 11:18 PM EST) Sodium 138 133 - 145 mmol/L LAB CHEMISTRY METHOD 10/12/2024 12:38 AM [facility] Potassium 4.3 3.5 - 5.5 mmol/L LAB CHEMISTRY METHOD 10/12/2024 12:38 AM [facility] Chloride 107 96 - 110 mmol/L LAB CHEMISTRY METHOD 10/12/2024 12:38 AM [facility] CO2 30 21 - 32 mmol/L LAB CHEMISTRY METHOD 10/12/2024 12:38 AM [facility] Anion Gap 1(L) 3 - 11 LAB CHEMISTRY METHOD 10/12/2024 12:38 AM [facility] Glucose 126(H) 70 - 100 mg/dL LAB CHEMISTRY METHOD 10/12/2024 12:38 AM [facility] BUN 15 5 - 25 mg/dL LAB CHEMISTRY METHOD 10/12/2024 12:38 AM [facility] Creatinine 1.15 0.70 - 1.30 mg/dL LAB CHEMISTRY METHOD 10/12/2024 12:38 AM [facility] eGFR 73 >=60 mL/min/1. 73m2 LAB CHEMISTRY METHOD 10/12/2024 12:38 AM [facility] Comment:Calculation based on the??Chronic Kidney Disease Epidemiology Collaboration (CKD-EPI) equation refit??without adjustment for race. BUN/Creatinine Ratio 13.0 LAB CHEMISTRY METHOD 10/12/2024 12:38 AM [facility] Calcium 9.8 8.5 - 10.5 mg/dL LAB CHEMISTRY METHOD 10/12/2024 12:38 AM [facility] AST (SGOT) 24 10 - 42 unit/L LAB CHEMISTRY METHOD 10/12/2024 12:38 AM [facility] ALT (SGPT) 22 10 - 60 unit/L LAB CHEMISTRY METHOD 10/12/2024 12:38 AM [facility] Alkaline Phosphatase 100 42 - 121 unit/L LAB CHEMISTRY METHOD 10/12/2024 12:38 AM [facility] Total Protein 6.9 6.0 - 8.0 g/dL LAB CHEMISTRY METHOD 10/12/2024 12:38 AM [facility] Albumin 3.9 3.2 - 5.0 g/dL LAB CHEMISTRY METHOD 10/12/2024 12:38 AM [facility] Total Bilirubin 0.6 0.0 - 1.4 mg/dL LAB CHEMISTRY METHOD 10/12/2024 12:38 AM [facility] Blood Venous blood specimen / Unknown Venipuncture / Unknown 10/11/2024 11:18 PM EST 10/11/2024 11:44 PM EST us Smith Quan MD LAB BLOOD ORDERABLES Final Result [facility] [address] [place] [address], [place] [phone] * (ABNORMAL) Urinalysis with reflex microscopic and culture (10/11/2024 10:34 PM EST) Specific Check Urine 1.014 1.003 - 1.030 LAB URINALYSIS - AUTOMATED METHOD 10/12/2024 6:50 AM [facility] pH, Urine 5.5 5.0 - 8.0 pH LAB URINALYSIS - AUTOMATED METHOD 10/12/2024 6:50 AM [facility] Leukocytes, Urine Moderate(A) Negative LAB URINALYSIS - AUTOMATED METHOD 10/12/2024 6:50 AM [facility] Nitrite, Urine Positive(A) Negative LAB URINALYSIS - AUTOMATED METHOD 10/12/2024 6:50 AM [facility] Protein, Urine 300(A) <=Trace mg/dL LAB URINALYSIS - AUTOMATED METHOD 10/12/2024 6:50 AM [facility] Glucose, Urine Negative Negative mg/dL LAB URINALYSIS - AUTOMATED METHOD 10/12/2024 6:50 AM [facility] Ketones, Urine Negative Negative mg/dL LAB URINALYSIS - AUTOMATED METHOD 10/12/2024 6:50 AM [facility] Urobilinogen, Urine 1.0 0.2 - 1.0 mg/dL LAB URINALYSIS - AUTOMATED METHOD 10/12/2024 6:50 AM [facility] Bilirubin, Urine Small(A) Negative LAB URINALYSIS - AUTOMATED METHOD 10/12/2024 6:50 AM [facility] Blood, Urine Large(A) Negative LAB URINALYSIS - AUTOMATED METHOD 10/12/2024 6:50 AM [facility] RBC, Urine 1,724.4(H) 0 - 4 /HPF LAB URINALYSIS - AUTOMATED METHOD 10/12/2024 6:50 AM [facility] Comment:This is an appended report. These results have been appended to a previously preliminary verified report. WBC, Urine 48.9(H) 0 - 4 /HPF LAB URINALYSIS - AUTOMATED METHOD 10/12/2024 6:50 AM [facility] Comment:This is an appended report. These results have been appended to a previously preliminary verified report. Squamous Epithelial, Urine >100(H) 0 - 60 /LPF LAB URINALYSIS - AUTOMATED METHOD 10/12/2024 6:50 AM [facility] Comment:This is an appended report. These results have been appended to a previously preliminary verified report. Crystals, Urine LT CALCIUM OXALATE /LPF LAB URINALYSIS - AUTOMATED METHOD 10/12/2024 6:50 AM [facility] Comment:Corrected result: Pr eviously reported on 10/11/2024 at 2351 EST. Bacteria, Urine Negative Negative /HPF LAB URINALYSIS - AUTOMATED METHOD 10/12/2024 6:50 AM [facility] Comment: Edited result: Previously reported as Negative /HPF on 10/11/2024 at 2351 EST. This is an appended report. ??These results have been appended to a previously final verified report. Hyaline Casts, Urine 13.6(H) 0 - 3 /LPF LAB URINALYSIS - AUTOMATED METHOD 10/12/2024 6:50 AM [facility] Comment:This is an appended report. These results have been appended to a previously preliminary verified report. Urine Urine specimen obtained by clean catch procedure / Unknown Non-blood Collection / Unknown 10/11/2024 10:34 PM EST 10/11/2024 11:07 PM EST Smith Quan MD LAB URINE ORDERABLES Edited Result - Final Performing Organization Address [facility] Co de Phone Number [facility] [address] [place] [address], [place] [phone] * Carlin urine culture tube (10/11/2024 10:34 PM EST) Extra Tube Hold for add-ons. 10/12/2024 1:11 AM [facility] Comment:Auto resulted. Urine Urine specimen obtained by clean catch procedure / Unknown Non-blood Collection / Unknown 10/11/2024 10:34 PM EST 10/11/2024 11:07 PM EST Smith Quan MD LAB URINE ORDERABLES Final Result Performing Organization Address [facility] Co de Phone Number [facility] [address] [place] [address], [place] [phone] * Culture urine (10/11/2024 10:34 PM EST) Pathologist [facility] Culture, Urine No growth 10/13/2024 10:54 AM [facility] Urine Urine specimen obtained by clean catch procedure / Unknown Non-blood Collection / Unknown 10/11/2024 10:34 PM EST 10/11/2024 11:52 PM EST Smith Quan MD LAB MICROBIOLOGY - GENERAL ORDERABLES Final Result Performing Organization Address [facility]/ZIP Co de Phone Number [facility] [address] [place] [address], [place] [phone] from Last 3 Months Insurance , [address] [place] [address] [employer] MED[employer] Member Subscriber Plan / Payer (Ef fective 2023-Present) Name:Bobby Velasco Relation to Subscriber:Self Name:Bobby Velasco Payer ID:[id number] Group ID:[id number] Type:Not on file Address: [place] [address] [address] Care Teams Marketing Consultant Relationship Specialty Start Date End Date Ashley Frankel MD [address] [place] [phone] PCP - General Family Medicine 08/09/24
--- OUTSIDE RECORDS SUMMARY | 2024-11-19 09:43 | XMS_ITS | Encounter Summary ---
Author Organization [employer] Address [address] [place] [address] [address] [place] [address] Care Team Providers Care [employer] Pulper Name Role Phone Ashley Frankel MD Primary Care Provider [phone] Viktor Sonya Unavailable Kishore Dorsey MD Unavailable Raheel Gee Unavailable [phone] Riya Fulton Unavailable Sergio Hackett Unavailable Unavailable Dominga Silva PharmD Unavailable Encounter Details Date Type Department Care Team (Latest Contact Info) Description 06/08/2022 Abstract [facility] CONVERSIONS Dental, Provider, DDS Social History Tobacco [...] [facility] ADULT DENTAL [address] [place], [place] [id number] Jackie Peacock 01/23/2025 9:45 AM EDT Office Visit [facility] MEDICINE [address] [place] [address] Ashley Frankel MD [address] [place], [place] [phone] documented as of this encounter Visit Diagnoses Not on filedocumented in this encounter Care Teams S[employer] Pulper Relationship Specialty Start Date End Date Ashley Frankel MD [address] [place] [address] PCP - General Family Medicine 08/28/18 Viktor November [address] [place] [address] Gastroenterology 07/17/24 Kishore Dorsey MD [address] [place] [address] Urology 07/17/24 Raheel Gee [address] [place], [place] [address] Pulmonary Disease 07/17/24 Riya Fulton [address] [place] [address] Cardiology 07/17/24 Sergio Hackett [address] [place] [address] Orthopaedic Surgery 07/17/24 Dominga Silva PharmD [address] [place] [address] Pharmacist Internal Medicine 07/22/24 Norm. [place] Psychiatry 10/10/24 documented as of this encounter
--- OUTSIDE RECORDS SUMMARY | 2024-11-19 09:43 | XMS_ITS | Clinical Summary ---
Author Organization [employer] Address [address] [place] [address] 7 [place] [address] Care Team Providers Care Edge Plugger Name Role Phone Ashley Frankel MD Primary Care Provider [phone] Hoang, November Unavailable Kishore Dorsey MD Unavailable Raheel Gee Unavailable [phone] Riya Fulton Unavailable Sergio Hackett Unavailable [...] long-term current use of insulin (CMS/[facility]) 1 each by Other route [...] for up to 7 days. 20 tablet Active lisinopril 40 MG tabletIndicatio ns:Primary hypertension Take 1 tab po daily 90 tablet 3 024 2024 Discontinued(R eorder (will not trigger notification to Pharmacy)) Blood Pressure kitIndications: Primary hypertension USE DIRECTED 1 kit 024 2024 Discontinued(M ed list cleanup (will [...] do not drive with medicaion 20 tablet 025 2024 Discontinued Active Problems Patient Care Coordination No te Formatting of this note migh t be different from the original. [facility] [employer]: Kamila, member services number [phone], provider services line, , option 4 Sort Operations Supervisor Agency: refused services Problem Noted Date [...] Removal 2021. New found mass on left confucianist. - Referred to Plastic Surgery 07/16/24 Assessment & Plan (07/17/2024 10:23 AM EST): Removal 2021. New found mass on left confucianist. - Referred to Plastic Surgery 07/16/24 Cardiac [...] due after 07/17/25 -eye care facilitated by [facility] -dental home is [facility] -health care proxy paperwork given 11/13/2023, given again 07/17/24 Assessment & Plan (07/17/2024 10:32 AM EST): -next physical exam due after 07/17/25 -eye care facilitated by [facility] -dental home is [facility] -health care proxy paperwork given 11/13/2023, given again 07/17/24 Assessment & Plan (11/13/2023 10:07 AM EDT): -next physical exam due after 04/27/2024 -eye care facilitated by [facility] -dental home is [facility] -health care proxy paperwork given 11/13/2023 Assessment & Plan (04/27/2023 9:45 AM EDT): -next physical exam due after 04/27/2024. -eye care facilitated by [facility], last visit 01/16/2023 -dental home is [facility] Class 1 obesity 02/24/2023 Erectile [...] the strong evidence that these meds prevent NM/CVA. Continue atorvastatin 80qhs. Encouraged to take. Anxiety [...] CT May 2021 -CT 01/24/[address] advisor [address] Raheel Gee MD, redemonstration of innumerable [...] getting tx for his neck. -Followed by [facility]. -Saw Dr. Evin Bhat at [facility] 02/2021 -referred to orthopedic on 11/13/2023 - [...] getting tx for his neck. -Followed by [facility]. -Saw Dr. Evin Bhat at [facility] 02/2021 -referred to orthopedic on 11/13/2023 - [...] getting tx for his neck. -Followed by [facility]. -Saw Dr. Evin Bhat at [facility] 02/2021 -referred to orthopedic on 11/13/2023 Assessment [...] getting tx for his neck. Followed by [facility]. Saw Dr. Evin Bhat at [facility] 02/2021 Assessment & Plan (04/27/2023 9:22 AM [...] getting tx for his neck. Followed by [facility]. Saw Dr. Evin Bhat at [facility] 02/2021 Assessment & Plan (11/07/2022 11:31 AM [...] getting tx for his neck. Followed by [facility]. Saw Dr. Evin Bhat at [facility] 02/2021 Mild intermittent asthma 10/14/2021 Overview (08/21/2024): -Followed by Dr. Raheel Gee at [facility]. Note from 08/19/24 reviewed -Well [...] Date Resolved Date Exercise counseling 10/24/2024 10/24/19 25 Assessment & Plan (10/24/2024 9:00 AM EST): [...] right ureteroscopy laser lithotripsy stent insertion, 6 Kiswahili by [address] Mayda Rodriguez. [...] Encounters Date Type Department Care Team Description 11/12/2024 Orders Only GENERIC EXTERNAL DATA DEPARTMENT Provider, Generic External Data 11/08/[address] [address] Ashley Frankel MD 10/31/2024 Orders Only GENERIC EXTERNAL DATA DEPARTMENT Provider, Generic External Data 10/28/[address] [address] Ashley Frankel MD 10/26/2024 9:20 AM EST [facility] [address] [address] Bryan Coleman MD Acute right-sided low back pain with bilateral sciatica (Primary Dx); Nephrolithiasis; Constipation, unspecified constipation type 10/26/2024 Orders Only [address] [address] Bryan Coleman MD 10/24/2024 9:15 AM EST Office Visit [address] [address] Ahsley Frankel MD Primary hypertension (Primary Dx); Weight loss, non-intentional; 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); Overweight; Dietary counseling; Exercise counseling; Dyslipidemia; Type 2 diabetes mellitus without complication, without long-term current use of insulin ([facility]); Pulmonary nodules 10/24/2024 Orders Only [facility] External Provider, [facility] 10/24/2024 Travel 10/17/[address] [address] Ashley Frankel MD 10/17/[address] [address] Ashley Frankel MD chartprep 10/10/2024 1:40 PM EST [facility] [address] [address] Ashley Frankel MD Dysuria (Primary Dx); Dyslipidemia; Gastroesophageal reflux disease, unspecified whether esophagitis present; Benign prostatic hyperplasia with urinary obstruction; Anxiety 10/10/2024 [facility]phone [facility] [address] [address] Ashley Frankel MD 10/10/2024 Orders Only GENERIC EXTERNAL DATA DEPARTMENT Provider, Generic External Data 10/07/[address] [address] Ashley Frankel MD Nurse Triage 09/30/2024 Telephone [facility] [address] [place] [phone] Aurora Alexandre, RN Results 09/30/2024 Orders Only [address] [address] Ashley Frankel MD Renal calculi (Primary Dx); Hydronephrosis, unspecified hydronephrosis type 09/28/2024 11:00 AM EST Office [facility] [address] [address] Les Hay MD Constipation, unspecified constipation type (Primary Dx); Primary hypertension 09/28/2024 Travel 09/27/2024 11:00 AM EST Office Visit [address] [address] Malika Mac MD Other microscopic hematuria (Primary Dx); Acute bilateral low back pain without sciatica 09/27/2024 Telephone [facility] [address] [place] [address] Ashley Frankel MD Nurse Triage 09/18/2024 Refill [facility] [address] [place] [address] Nisha Smith MD Allergic rhinitis, unspecified seasonality, unspecified trigger 09/17/2024 Telephone [facility] [address] [place] [address] Ashlye Frankel MD 09/09/2024 Orders Only [facility] External Provider, [facility] Renal calculi (Primary Dx) 08/26/2024 Telephone [facility] [address] [place] [address] Ashley Frankel MD from Last 3 Months [...] 12/09/2024 8:00 AM EDT Office Visit [facility] [address] [place] [address] Jackie Peacock 01/23/2025 9:45 AM EDT Office Visit [facility] [address] [place] [address] Ashley Frankel MD [address] [place] [address] Health Maintenance Due Date Last Done Comments [...] Procedure Name Priority Date/Time Associated Diagnosis Comments LIPASE Routine 11/12/2024 2:35 PM EDT MAGNESIUM Routine 11/12/2024 2:35 PM EDT COMPREHENSIVE METABOLIC PANEL Routine 11/12/2024 2:35 PM EDT CBC WITH AUTO DIFFERENTIAL Routine 11/12/2024 2:35 PM EDT XR KUB AND UPRIGHT 2 VIEWS Routine 11/12/2024 2:25 PM EDT CULTURE, URINE, ROUTINE Routine 11/01/19 7:59 AM EST POCT URINALYSIS DIPSTICK Routine 10/26/2024 9:35 AM [...] VIEWS Routine 09/09/2024 10:3 4 AM EST ALBUMIN, RANDOM URINE W/CREATININE Routine 08/13/2024 11:26 [...] Relevant to Health Maintenance Results * (ABNORMAL) CBC auto differential (11/12/2024 2:35 PM EDT) Only the most recent of5 resultswithin the time period is included. White Blood Count 5.2 4.8 - 10.8 X10*3/uL [facility] Red Blood Count 4.14(L) 4.60 - 5.80 X10*6/uL [facility] Hemoglobin 12.9(L) 14.0 - 18.0 g/dl [facility] Hematocrit 36.8(L) 42.0 - 52.0 % [facility] Mean Corpuscular Volume 88.9 80.0 - 98.0 fL [facility] Mean Corpuscular Hemoglobin 31.2 27.0 - 33.0 pg [facility] Mean Corpuscular HGB Conc 35.1 31.0 - 36.0 g/dl [facility] Red Cell Distribution Width 12.4 11.0 - 16.0 % [facility] Platelet Count 230 160 - 400 X10*3/uL [facility] Mean Platelet Volume 10.2 9.4 - 12.4 fL [facility] Neutrophils Percent Auto 60.6 45 - 73 % [facility] Imm Gran Pct Auto 0.4 0.0 - 0.4 % [facility] Lymphocytes Percent Auto 25.6 20 - 40 % [facility] Monocytes Percent Auto 11.7(H) 2 - 11 % [facility] Eosinophils Percent Auto 1.1 0 - 4 % [facility] Basophils Percent Auto 0.6 0 - 2 % [facility] NRBC Pct Auto 0.0 0.0 - 0.2 /100WBC [facility] Neutrophils Absolute Auto 3.2 2.0 - 8.3 x10*3/uL [facility] Imm Gran Abs Auto 0.02 0.00 - 0.03 X10*3/uL [facility] Lymphocytes Absolute Auto 1.3 1.2 - 4.9 X10*3/uL [facility] Monocytes Absolute Auto 0.6 0.1 - 1.2 X10*3/uL [facility] Eosinophils Absolute Auto 0.1 0.0 - 0.4 X10*3/uL [facility] Basophils Absolute Auto 0.0 0.0 - 0.2 X10*3/uL [facility] NRBC Abs Auto 0.000 0.0 - 0.012 X10*3/uL [facility] 11/12/2024 2:35 PM EDT 11/12/2024 2:39 PM EDT us Generic External Data Provider LAB BLOOD ORDERAB LES Final Result Performing Organization Address City/[facility]/ZIP Co de Phone Number [facility] [address] [place] [phone] * Magnesium (11/12/2024 2:35 PM EDT) Only the most recent of3 resultswithin the time period is included. Magnesium 2.0 1.6 - 2.6 mg/dL [facility] 11/12/2024 2:35 PM EDT 11/12/2024 2:39 PM EDT us Generic External Data Provider LAB BLOOD ORDERAB LES Final Result Performing Organization Address City/[facility] Co de Phone Number [facility] [address] [place] [phone] * Lipase (11/12/2024 2:35 PM EDT) Only the most recent of4 resultswithin the time period is included. Lipase 22 8 - 78 U/L [facility] 11/12/2024 2:35 PM EDT 11/12/2024 2:39 PM EDT us Generic External Data Provider LAB BLOOD ORDERAB LES Final Result [facility] [address] [place], [place] [phone] * (ABNORMAL) Comprehensive Metabolic Panel (11/12/2024 2:35 PM EDT) Only the most recent of3 resultswithin the time period is included. Sodium 143 135 - 145 mmol/L [facility] Potassium 3.7 3.3 - 5.1 mmol/L [facility] Chloride 108 96 - 108 mmol/L [facility] Carbon Dioxide 28 22 - 29 mmol/L [facility] Anion Gap 11(L) 12 - 20 [facility] Urea Nitrogen (BUN) 18(H) 9 - 16 mg/dL [facility] Creatinine, Serum 1.00 0.5 - 1.4 mg/dL [facility] Creatinine Clr Calc Pharmacy 79.3 [facility] Comment:eGFR (calculated fro m the MDRD study equation) and eCrCl(calculated from the Cockcroft-Gault equation) are based ondifferent parameters and may not yield comparable results.If eCrCl result is absurd, please check patient'sheight/weight. Estimated Glomerular Filt Rate >60 [facility] Comment:Chronic Kidney Disea se: Estimated GFR < 60 mL/min/1.10n3Ghsxje Kidney Disease: Estimated GFR < 15 mL/min/1.73m2 Glucose 145(H) 60 - 115 mg/dL [facility] Calcium 9.5 8.4 - 10.2 mg/dL [facility] Bilirubin, Total 0.8 0.0 - 1.0 mg/dL [facility] Aspartate Amino Transferase 21 5 - 37 U/L [facility] Alanine Aminotransferase 12 0 - 40 U/L [facility] Total Protein 6.7 6.5 - 8.0 g/dL [facility] Albumin Level 3.9 3.5 - 5.0 g/dL [facility] Alkaline Phosphatase 92 39 - 117 U/L [facility] 11/12/2024 2:35 PM EDT 11/12/2024 2:39 PM EDT us Generic External Data Provider LAB BLOOD ORDERAB LES Final Result [facility] [address] [place] [address] [phone] * XR KUB and Upright 2 Views (11/12/2024 2:25 PM EDT) Anatomical Region Laterality Modality Radiographic Hannah ging 11/12/2024 2:25 PM EDT Narrative 11/12/2024 2:48 PM EDT ? [facility] ?[address] ?[place] [address] ?XRay Report ? Signed ? Patient: Krista,Bobby ?MR#: [id number] ? : 1965 ?Acct:[id number] ? Age/Sex: 59 / M ?ADM Date: 11/12/24 ? Loc: HO.ED ? Attending Dr: ? Ordering Physician: Nathalia Dorado ?? Date of Service: 11/12/24 ?? Procedure(s): XR KUB ?? Accession Number(s): [id number] ? cc: Ashley Frankel MD; Nathalia Dorado ? EXAMINATION: ??XR ABDOMEN 1 VIEW (KUB) ? HISTORY: pain ? COMPARISON: There are no prior studies for comparison. ? FINDINGS: ??Two upright views of the abdomen are submitted. ?? The bowel ?? gas pattern is unremarkable, without evidence of mechanical ?? obstruction. There is no free intraperitoneal gas. There is a moderate ?? amount of stool throughout the colon. ?? No abnormal calcifications are ?? identified. ?? There are no abnormal soft tissue masses. ??There is ?? degenerative disc disease of the spine. ? XR/XR KUB ?? IMPRESSION: ?? Moderate amount of stool throughout the colon. ? Electronically signed by: ??George Oquendo MD ??11/12/2024 02:44 PM EDT ? Dictated By: ?George Oquendo MD ? Signed By: ?<Electronically signed by George Oquendo MD in OV> ?11/12/24 1444 ? DD/ 1425 ? TD/TT: 11/12/24 1442 ? Fight Manager: ? Procedure Note Donotuseinterpreter, Image - 11/12/[address] [address] XRay Report Signed Patient: Pierce Velasco#: [id number] : 1965Acct:[id number] Age/Sex: 59 / MADM Date: 11/12/24 Loc: HO.ED Attending Dr: Ordering Physician: Nathalia Dorado Date of Service: 11/12/24 Procedure(s): XR KUB Accession Number(s): [id number] cc: Ashley Frankel MD; Nathalia Dorado EXAMINATION: XR ABDOMEN 1 VIEW (KUB) HISTORY: pain COMPARISON: There are no prior studies for comparison. FINDINGS: Two upright views of the abdomen are submitted. The bowel gas pattern is unremarkable, without evidence of mechanical obstruction. There is no free intraperitoneal gas. There is a moderate amount of stool throughout the colon. No abnormal calcifications are identified. There are no abnormal soft tissue masses. There is degenerative disc disease of the spine. XR/XR KUB IMPRESSION: Moderate amount of stool throughout the colon. Electronically signed by: George Oquendo MD 11/12/2024 02:44 PM EDT Dictated By: George Oquendo MD Signed By: <Electronically signed by George Oquendo MD in OV> 11/12/24 1444 DD/ TD/TT: 11/12/24 1442 Fight Manager: [facility] External Provider IMG XR PROCEDURES Final Result * Culture, Urine, Routine (10/31/2024 7:59 AM EST) Only the most recent of2 resultswithin the time period is included. Urine Urine specimen obtained by clean catch procedure / Unknown 10/31/2024 7:59 AM EST 10/31/2024 5:58 PM EST Comment:UACC Narrative [facility] - 11/02/2024 10:45 AM EST Urine Culture No growth. Specimen Source: Urine clean catch Generic External Data Provider LAB MICROBIOLOGY - GENERAL ORDERABLES Final Result [facility] [address] [place] [phone] * (ABNORMAL) POCT urinalysis dipstick manually resulted [...] 4:58 PM EST) Only the most recent of4 resultswithin the time period is included. TROPONIN I HIGH SENSITIVITY 3.4 <3.5 - 35.0 ng/L [facility] Comment:The Schmidt high sens itivity Troponin-I results should beused in conjunction with other diagnostic information suchas ECG, clinical observations and information, and patientsymptoms to aid in the diagnosis of NM. 10/24/2024 4:58 PM EST 10/24/2024 5:02 PM EST Generic External Data Provider LAB BLOOD ORDERAB LES Final Result Performing Organization Address [facility] Co de Phone Number [facility] [address] [place] [phone] * Partial Thromboplastin Time, Activated (APTT) (10/24/2024 2:30 PM EST) Partial Thromboplastin Time 35.7 26.0 - 36.8 SEC [facility] Comment:For information rega rding the monitoring of direct thrombininhibitors, please refer to Pharmacy. 10/24/2024 2:30 PM EST 10/24/2024 2:33 PM EST Generic External Data Provider LAB BLOOD ORDERAB LES Final Result Performing Organization Address [facility] de Phone Number [facility] [address] [place] [phone] * Prothrombin Time-INR (10/24/2024 2:30 PM EST) Only the most recent of2 resultswithin the time period is included. Prothrombin Time 10.9 10.9 - 12.4 SEC [facility] INTERNATIONAL NORM RATIO 0.9 0.9 - 1.1 [facility] Comment:INTERNATIONAL NORMAL IZED RATIO (INR) [...] ORDERAB LES Final Result Performing Organization Address [facility] de Phone Number [facility] [address] [place] [phone] [phone] * B Type Natriuretic Peptide (BNP) (10/24/2024 2:30 PM EST) B Type Natriuretic Peptide 32 <100 pg/mL [facility] Comment:For those patients w ho are being treated with Natrecor(nesiritide, recombinant BNP), BNP testing should beperformed at least two hours post treatment in order toensure that only endogenous levels of BNP are detected. 10/24/2024 2:30 PM EST 10/24/2024 2:33 PM EST us Generic External Data Provider LAB BLOOD ORDERAB LES Final Result Performing Organization Address [facility] de Phone Number [facility] [address] [place] [phone] * XR Chest 1 View (10/24/2024 1:22 PM EST) Anatomical Region Laterality Modality Chest Radiographic Hannah ging 10/24/2024 1:22 PM EST Narrative 10/24/2024 1:45 PM EST ? [facility] ?[address] ?[place] [address] ?XRay Report ? Signed ? Patient: Krista,Bobby ?MR#: [id number] ? : 1965 ?Acct:[id number] ? Age/Sex: 59 / M ?ADM Date: 10/24/24 ? Loc: HO.ED ? Attending Dr: ? Ordering Physician: Alexy Yang ?? Date of Service: 10/24/24 ?? Procedure(s): XR chest 1V ?? Accession Number(s): [id number] ? cc: Alexy Yang; Ashley Frankel MD [...] DD/ 1322 ? TD/TT: 10/24/24 1336 ? Fight Manager: ? Procedure Note Donotuseinterpreter, Image - 10/24/2024 [place] [address] XRay Report Signed Patient: Pierce Velasco#: [id number] : 1965Acct:[id number] Age/Sex: 59 / MADM Date: 10/24/24 Loc: HO.ED Attending Dr: Ordering Physician: Alexy Yang Date of Service: 10/24/24 Procedure(s): XR chest 1V Accession Number(s): [id number] cc: Alexy Yang; Ashley Frankel MD EXAMINATION: [...] 10/24/24 1342 DD/ 1322 TD/TT: 10/24/24 1336 Fight Manager: [facility] External Provider IMG XR PROCEDURES Final Result * Vitamin D, 25-Hydroxy, Total, Immunoassay (10/24/2024 9:22 AM EST) Vitamin D 25-OH Total 39.3 >30 ng/mL [facility] Comment:Health Based Referen ce Values*< 20 ng/mL [id number] ng/mL Insufficient> 30 ng/mL Sufficient*Colleen GILL. N [...] BLOOD ORDERABLES Final Result Performing Organization Address [facility]/ZIP Co de Phone Number [facility] [address] [place] [phone] * TSH W/Reflex to FT4 (10/24/2024 9:22 AM EST) TSH reflex Free T4 1.31 0.32 - 4.0 uIU/mL [facility] Blood Venous blood specimen / Unknown 10/24/2024 9:22 AM EST 10/24/2024 11:48 AM EST Ashley Frankel MD LAB BLOOD ORDERABLES Final Result [facility] [address] [place] [phone] * HIV-1/2 Antigen and Antibodies, Fourth Generation, with Reflexes (10/24/2024 9:22 AM EST) HIV AB/AG Nonreactive Nonreactive [facility] Comment:HIV-1 p24 Ag and/or HIV-1/HIV-2 Ab not detected.A test result that is nonreactive does not exclude thepossibility of exposure to or infection with HIV-1 and/orHIV-2. Nonreactive results in this assay for individualswith prior exposure to HIV-1 and/or HIV-2 may be due toantigen and antibody levels that are below the limit ofdetection of this assay.The Minutta HIV Ag/Ab Combo assay result andsupplemental assay results should be interpreted inconjunction with the patient's clinical presentation,history and other laboratory results. If the results areinconsistent with clinical evidence, additional testing issuggested to confirm the result. Blood Venous blood specimen / Unknown 10/24/2024 9:22 AM EST 10/24/2024 11:48 AM EST Ashley Frankel MD LAB BLOOD ORDERABLES Final Result Performing Organization Address City/[facility] Hospital/ZIP Co de Phone Number [facility] [address] [place] [phone] * Lactate Dehydrogenase (LD) (10/24/2024 9:22 AM EST) Pathologist [facility] Lactate Dehydrogenase 248 118 - 273 U/L [facility] Blood Venous blood specimen / Unknown 10/24/2024 9:22 AM EST 10/24/2024 11:48 AM EST Ashley Frankel MD LAB BLOOD ORDERABLES Final Result Performing Organization Address [facility]/ZIP Co de Phone Number [facility] [address] [place] [phone] * FL Guidance in OR (10/01/2024 4:15 PM EST) Anatomical Region Laterality Modality X-Ray Angiograph y 10/01/2024 4:15 PM EST Narrative 10/02/2024 10:09 AM EST ? [facility] ?[address] ?[place] [address] ? Fluoroscopy Report ? Signed ? Patient: Krista,Bobby ?MR#: [id number] ? : 1965 ?Acct:[id number] ? Age/Sex: 59 / M ?ADM Date: 09/30/24 ? Loc: HO.S3 ?344-1 ? Attending Dr: Parveen Breen MD ? Ordering Physician: Mayda Rodriguez MD ?? Date of Service: 10/01/24 ?? Procedure(s): FL guidance in OR ?? Accession Number(s): [id number] ? cc: Mayda Rodriguez MD; Ashley Frankel [...] Patel MD ??10/02/2024 10:06 AM EST RP ?? Workstation: [id number] ? Dictated By: ?Harrison Patel MD ? Signed By: ?<Electronically signed by Harrison Patel MD in OV> ?10/02/24 1006 ? DD/ 1615 ? TD/TT: 10/01/24 1710 ? Fight Manager: ? Procedure Note Cesar Justice - 10/02/[address] [address] Fluoroscopy Report Signed Patient: Bobby Velasco#: [id number] : 1965Acct:[id number] Age/Sex: 59 / MADM Date: 09/30/24 Loc: .S3 344-[address]: Parveen Breen MD Ordering Physician: Mayda Rodriguez MD Date of Service: 10/01/24 Procedure(s): FL guidance in OR Accession Number(s): [id number] cc: Mayda Rodriguez MD; Ashley Frankel MD [...] 10/02/24 1006 DD/ 1615 TD/TT: 10/01/24 1710 Fight Manager: [facility] External Provider IMG IR PROCEDURES Edited Result - Final * (ABNORMAL) Urinalysis, Complete, with Reflex to Culture (09/30/2024 4:26 PM EST) Color Urine Yellow [facility] Appearance Urine Clear [facility] PH 5.5 5.0 - 9.0 [facility] Glucose Urine UA Negative Negative mg/dL [facility] Urine Blood Negative Negative [facility] Specific [place] - Urine <=1.005 1.005 - 1.025 [facility] Urine Protein Negative Neg-Trace mg/dL [facility] Urine Ketones Trace Negative mg/dL [facility] Nitrite Urine Negative Negative [facility] Leukocyte Esterase Urine Trace(A) Negative [facility] RBC Urine 0-2 0 - 2 /HPF [facility] Urine WBC 0-5 0 - 5 /HPF [facility] Urine Squamous Epithelial Cell 0-2 0 - 2 /HPF [facility] Urine Bacteria None Seen None Seen [facility] Hyaline Casts, Urine 0-2 0 - 2 /LPF [facility] 09/30/2024 4:26 PM EST 09/30/2024 4:29 PM EST Narrative [facility] - 09/30/2024 4:46 PM EST [id number], Clean Catch us Generic External Data Provider LAB URINE ORDERAB LES Final Result Performing Organization Address [facility]/ZIP Co de Phone Number [facility] [address] [place] [phone] * Hepatic Function Panel (09/30/2024 4:26 PM EST) Only the most recent of2 resultswithin the time period is included. Bilirubin, Total 0.9 0.0 - 1.0 mg/dL [facility] Bilirubin, Direct 0.2 0.0 - 0.5 mg/dL [facility] Aspartate Amino Transferase 25 5 - 37 U/L [facility] Alanine Aminotransferase 12 0 - 40 U/L [facility] Total Protein 7.8 6.5 - 8.0 g/dL [facility] Albumin Level 4.5 3.5 - 5.0 g/dL [facility] Alkaline Phosphatase 94 39 - 117 U/L [facility] 09/30/2024 4:26 PM EST 09/30/2024 4:29 PM EST us Generic External Data Provider LAB BLOOD ORDERAB LES Final Result Performing Organization Address [facility]/ZIP Co de Phone Number [facility] [address] [place] [phone] * (ABNORMAL) Basic Metabolic Panel (09/30/2024 4:26 PM EST) Only the most recent of2 resultswithin the time period is included. Sodium 141 135 - 145 mmol/L [facility] Potassium 3.6 3.3 - 5.1 mmol/L [facility] Chloride 108 96 - 108 mmol/L [facility] Carbon Dioxide 25 22 - 29 mmol/L [facility] Anion Gap 12 12 - 20 [facility] Urea Nitrogen (BUN) 14 9 - 16 mg/dL [facility] Creatinine, Serum 0.93 0.5 - 1.4 mg/dL [facility] Creatinine Clr Calc Pharmacy 85.6 [facility] Comment:eGFR (calculated fro m the MDRD study equation) and eCrCl(calculated from the Cockcroft-Gault equation) are based ondifferent parameters and may not yield comparable results.If eCrCl result is absurd, please check patient'sheight/weight. Estimated Glomerular Filt Rate >60 [facility] Comment:Chronic Kidney Disea se: Estimated GFR < 60 mL/min/1.75d6Lwuxye Kidney Disease: Estimated GFR < 15 mL/min/1.73m2 Glucose 125(H) 60 - 115 mg/dL [facility] Calcium 9.6 8.4 - 10.2 mg/dL [facility] 09/30/2024 4:26 PM EST 09/30/2024 4:29 PM EST us Generic External Data Provider LAB BLOOD ORDERAB LES Final Result [facility] [address] [place] [phone] * US Retroperitoneal Complete (09/30/2024 1:13 PM EST) Anatomical Region Laterality Modality Ultrasound 09/30/2024 1:13 PM EST Narrative 09/30/2024 1:13 PM EST ? [facility] ?[address] ?[place] [address] ? Ultrasound Report ? Signed ? Patient: Krista,Bobby ?MR#: [id number] ? : 1965 ?Acct:[id number] ? Age/Sex: 59 / M ?ADM Date: 09/30/24 ? Loc: HO.US ? Attending Dr: Malika Mac MD ? Ordering Physician: Malika Mac MD ?? Date of Service: 09/30/24 ?? Procedure(s): US retroperitoneal comp ?? Accession Number(s): [id number] ? cc: Ashley Frankel MD; Malika Mac [...] OV> ? 09/30/243 ? DD/ ? TD/TT: 09/30/241312 ? Fight Manager: ? Procedure Note Reshma, Image - 09/30/[address] [address] Ultrasound Report Signed Patient: Pierce Velasco#: [id number] : 1965Acct:[id number] Age/Sex: 59 / MADM Date: 09/30/24 Loc: HO. Attending Dr: Malika Mac MD Ordering Physician: Malika Mac MD Date of Service: 09/30/24 Procedure(s): US retroperitoneal comp Accession Number(s): [id number] cc: Ashley Frankel MD; Malika Mac MD [...] 09/30/24 1313 DD/ 1313 TD/TT: 09/30/24 1313 Fight Manager: Malika Mac MD IMG US PROCEDURES Final Result * SARS-CoV-2 RNA, Influenza A/B, and RSV RNA, Ql NAAT (09/09/2024 11:01 AM EST) Influenza A PCR NEGATIVE Negative [facility] Influenza B PCR NEGATIVE Negative [facility] Resp Syncy Virus RNA Qual PCR NEGATIVE Negative [facility] SARS COV2 PCR NEGATIVE Negative [facility] Comment:All test results mus t [...] use by authorized laboratories.Testing performed on the [employer] GeneXpert utilizingreal-time RT-PCR.All SARS CoV2 and positive influenza A/B results arereported to [facility]. 09/09/2024 11:0 1 AM EST 09/09/2024 11:06 AM EST us Generic External Data Provider LAB MICROBIOLOGY - GENERAL ORDERABLES Final Result Performing Organization Address [facility]/State/ZIP Co de Phone Number [facility] [address] [place] [phone] * XR Chest 2 Views (09/09/2024 10:34 AM EST) Anatomical Region Laterality Modality Chest Radiographic Hannah ging 09/09/2024 10:3 4 AM EST Narrative 09/09/2024 11:06 AM EST ? [facility] ?[address] ?[place] [address] ?XRay Report ? Signed ? Patient: Krista,Bobby ?MR#: [id number] ? : 1965 ?Acct:[id number] ? Age/Sex: 59 / M ?ADM Date: 09/09/24 ? Loc: HO.ED ? Attending Dr: ? Ordering Physician: Deandra Reynolds DO ?? Date of Service: 09/09/24 ?? Procedure(s): XR chest 2V ?? Accession Number(s): [id number] ? cc: Ashley Frankel MD; Deandra Reynolds [...] DD/ 1034 ? TD/TT: 09/09/24 1045 ? Fight Manager: ? Procedure Note Donotannater, Image - 09/09/[address] [address] XRay Report Signed Patient: Pierce Velasco#: [id number] : 1965Acct:[id number] Age/Sex: 59 / MADM Date: 09/09/24 Loc: .ED Attending Dr: Ordering Physician: Deandra Reynolds DO Date of Service: 09/09/24 Procedure(s): XR chest 2V Accession Number(s): [id number] cc: Ashley Frankel MD; Deandra Reynolds DO [...] 09/09/24 1103 DD/ 1034 TD/TT: 09/09/24 1045 Fight Manager: [facility] External Provider IMG XR PROCEDURES Edited Result - Final * Albumin, Random Urine W/Creatinine (08/13/2024 11:26 AM EST) Creatinine, Urine 73.67 mg/dL [facility] Microalbumin Urine 13.0 mg/L H [facility] Microalbum Creatinine Ratio Ur 17.6 <30 ug/mg cr [facility] Comment:Albumin/Creatinine R atio Reference Ranges: Normal: < 30 ug/mg creatinine Microalbuminuria: 30 - 300 ug/mg creatinineClinical Albuminuria: > 300 ug/mg creatinine Urine 08/13/2024 11:2 6 AM EST 08/13/2024 1:00 PM EST Ashley Frankel MD LAB URINE ORDERABLES Final Result Performing Organization Address [facility] Co de Phone Number [facility] [address] [place] [phone] * (ABNORMAL) Hemoglobin A1c (08/13/2024 11:26 AM EST) Hemoglobin A1c 6.2(H) <6.0 % [facility] Comment:Hemoglobin A1C Refer ence Range Adults: 4.8 - 6.0 % Non diabetic: < 6.0 % Goal: < 7.0 %Additional Action Suggested: > 8.0 %Note: Hemoglobin A1c results are invalid for patients with abnormal amounts of HbF. Blood transfusions may impact the HbA1c concentration in the patient sample. Estimated Average Glucose 131 mg/dL [facility] Comment:eAG = Estimated ave rage glucose which is %A1C expressed asaverage glucose, using the formula of the N7Z-XaqcdoeRrozjkj Glucose study (ADAG), Diabetes Care, Vol.31,#8,Mar. 2007 Blood Venous blood specimen / Unknown 08/13/2024 11:26 AM EST 08/13/2024 12:59 PM EST Ashley Frankel MD LAB BLOOD ORDERABLES Final Result Performing Organization Address [facility] Co de Phone Number [facility] [address] [place] [phone] * (ABNORMAL) Lipid Panel, Standard (08/13/2024 11:26 AM EST) Triglycerides 86 <150 mg/dL [facility] Comment:Desirable Triglyceri de: less than 150 mg/dLBorderline High Triglyceride 150-199 mg/dLHigh Triglyceride: 200-499 mg/dLVery High Triglyceride: greater than or equal to 5OO mg/dL Cholesterol 146 <200 mg/dL [facility] Comment:Desirable Cholestero l: less than 200 mg/dLBorderline High Cholesterol: 200-239 mg/dLHigh Cholesterol: greater than 239 mg/dL LDL Cholesterol Calculated 96 <100 mg/dL [facility] Comment:Desirable LDL: less than 100 mg/dLNear Optimal/Above Optimal LDL: 110- 129 mg/dLBorderline High LDL: 130-159 mg/dLHigh LDL: 160-189 mg/dLVery High LDL: greater than or equal to 190 mg/dL HDL Cholesterol 33(L) >40 mg/dL [facility] Comment:Desirable HDL: great er than 40 mg/dL Note: This HDL assay may give artificially low results in patients with liver disease. Blood Venous blood specimen / Unknown 08/13/2024 11:26 AM EST 08/13/2024 12:59 PM EST Ashley Frankel MD LAB BLOOD ORDERABLES Final Result [facility] [address] [place] [phone] * Hm Colonoscopy (04/06/2023) [facility] Colonoscopy Normal Normal Historical Provider HEALTH MAINTENANCE Final Result * Hepatitis C Antibody with Reflex to HCV, RNA, Quantitative, Real-Time PCR (11/11/2022 8:59 AM EDT) [facility] Hepatitis C Antibody NON-REACT KELSY NON-REACT KELSY Proficiency [place] [employer] Index 0.64 <1.00 Proficiency [place] [employer] Comment: HCV antibody was non-reactive. There is no laboratory evidence of HCV infection. In most cases, no further action is required. However, if recent HCV exposure is suspected, a test for HCV RNA (test code 48012) is suggested. For additional information please refer to http://education.OvaScience.Kredits/faq/PJC66e7 (This link is being provided for informational/ educational purposes only.) Blood Venous blood specimen / Unknown 11/11/2022 8:59 AM EDT 11/11/2022 8:59 AM EDT Narrative [facility] - 11/11/2022 9:36 PM EDT FASTING:YES FASTING: YES Ashley Frankel MD LAB BLOOD ORDERABLES Final Result [facility] [address], [facility] [place] [address] Proficiency [facility] [address] [place] [address] from Last 3 Months or Most Recently Relevant to Health Maintenance [place] [address] [place] [address] - [facility] - [facility] Care Teams Edge Plugger Relationship Specialty Start Date End Date Ulster, MD Ashley [address] [place] [address] PCP - General Family Medicine 08/28/18 Sonya Hoang [address] [facility] [address] [place] [address] Gastroenterology 07/17/24 Kishore Dorsey MD [address] [facility] [address] [place] [address] Urology 07/17/24 Raheel Gee [address] [place], [place] [address] Pulmonary Disease 07/17/24 Riya Fulton 11 [facility] [address] [place] [address] Cardiology 07/17/24 Sergio Hackett [address] [place] [address] Orthopaedic Surgery 07/17/24 Dominga Silva, Mehrdad [address] [place] [address] Pharmacist Internal Medicine 07/22/24 De. [place] Psychiatry 10/10/24
--- OUTSIDE RECORDS SUMMARY | 2024-11-19 09:43 | XMS_ITS | Data Portability ---
Author Organization [place] - [facility], Allergy Address [address] [place] [phone] Care Team Providers Care Construction Field Engineer Name Role Phone NAME, LINDSAY Primary Care [...] follow-up after for review and further planning. [email or web address] Not available 09/16/2024 13:47:52 Plan of Treatment [...] CT, maxillofaci al, w/o contrast 2024 025 [email or web address] [facility] [place], [facility]0 [facility], [place], [address], 5 15:43:34 Medication Orders None recorded. Patient TargetsNo targets recorded. Patient InstructionsNo instructions recorded. Reason for Referral None Reported. Problems Name Problem SNOMED Code Status Onset Date Resolution Date Notes Provider Name and Address Organization Details Recorded Time Allergic rhinitis 36797975 Active 2018 Perennial allergic rhinitis; Note: Date Diagnosed : 11/26/2018 12:00 PM (J30.89) Not Available [facility] 4 02:51:24 Deviated nasal septum 713764247 Active 2017 Deviated nasal septum; Note: Date Diagnosed : 05/09/2018 11:11 AM (J34.2) Not Available [facility] 4 02:51:18 Tinnitus of right ear 17434916951 08 Active 2017 Tinnitus, right ear; Note: Date Diagnosed : 01/16/2018 3:42 PM (H93.11) Not Available [facility] 4 02:51:19 Sensorine ural hearing loss of bilateral ears 076081734 Active 2017 Sensorine ural hearing loss, bilateral ; Note: Date Diagnosed : 01/16/2018 3:42 PM (H90.3) Not Available [facility] 4 02:51:21 Nasal congestio n 50981734 Active 2017 Nasal congestio n; Note: Date Diagnosed : 05/09/2018 11:11 AM (R09.81) Not Available [facility] 4 02:51:19 Dizziness and giddiness 528786106 Active 2017 Dizziness and giddiness ; Note: Date Diagnosed : 01/16/2018 3:42 PM (R42) Not Available [facility] 4 02:51:20 Headache 28173690 Active 2017 Headache; Note: Date Diagnosed : 05/09/2018 11:06 AM (R51) Not Available [facility] 4 02:51:20 Impacted cerumen of bilateral ears 95627664760 85114 Active 2024 MAXWELL DALY PA-C [address],[facility], [place], [address] , [facility] 5 13:48:02 Seasonal allergic rhinitis 397564531 Active 2024 MAXWELL DALY PA-C [address] [facility] [address],[place] [address], [place], [address] , [facility] 13:48:08 Non-aller gic rhinitis 77164542373 1 Active 2024 MAXWELL DALY PA-C [address] [facility] [address], [place], [address] , [facility] 13:48:08 Problem Notes None recorded. Procedures Surgical History Date Name Laterality Status Provider Name and Address Organization Details Recorded Time Cerumen removal without microscope bilat completed MAXWELL DALY PA-C [address] [facility] [address],[place] [address], [place], [address], [facility] 09/16/2024 13:46:50 Imaging Results None recorded. Procedure Notes None recorded. Medical Equipment None Reported. Allergies Allergen ID Allergen Name Allergen Category Reaction Reaction Severity Criticality Documentation Date Start Date Code Code System Note Provider Name and Address Organization Details Recorded Time 580168 amoxicill in medicatio n other Not available Not available 01/09/2024 723 RxNorm React ion: unkno wn, unspe cifie d;; Not Available [facility] 4 01:20:48 681101 Product containin g penicilli n (product) medicatio n other Not available Not available 01/09/2024 69494 8001 SNOMED React ion: unkno wn, unspe cifie d;; Not Available [facility] 4 01:20:48 Medications Name Sig Start Date [...] mg tablet 01/16 completed Medicati on ID: [id number] D uration Value: 30 Reason: () Brand [...] mg tablet 09/16 completed Medicati on ID: [id number] D uration Value: 30 Brand Name: amlodipi [...] mg tablet 10/12 completed Medicati on ID: [id number] D uration Value: 30 Brand Name: carvedil [...] mg capsule 01/16 completed Medicati on ID: [id number] D uration Value: 30 Reason: () Brand [...] mg tablet 10/12 completed Medicati on ID: [id number] D uration Value: 10 Brand Name: Viagra [...] mg tablet 10/12 completed Medicati on ID: [id number] D uration Value: 5 Brand Name: levoflox [...] 24 hr 05/09 completed Medicati on ID: [id number] D uration Value: 30 Reason: () Brand [...] Lite Strips 01/16 completed Medicati on ID: [id number] D uration Value: 17 Reason: () Brand [...] Updated DateTime 09/16/2024 170.18 cm 27.9 kg/m2 99637.44 g Gail Hurt [place] - [facility] 09/16/2024 13:25:10 Social History None recorded. Functional Status None recorded. Mental Status None recorded. Family History Nothing Reported. Medical History No medical history recorded. Past Encounters Encounter ID Performer Location Encounter Start Date Encounter Closed Date Diagnosis/Indication Diagnosis SNOMED-CT Code Diagnosis ICD10 Code Diagnosis Note [id number] MAXWELL DALY PA-C [facility] [address] [address] 09/16/2024 13:13:53 09/16/2024 13:45:47 Nasal congestion 43073502 R09.81 Allergic rhinitis 965971 04 J30.89 Impacted c erumen of bilateral ears 1605366230 038156 H61.23 Health Concerns Section Related Observation LastModified by Organization Detai ls LastModified Time None Recorded Concern Status LastModified by Organization Details LastModified Time None Recorded Advance Directives Directive None Recorded Payers Encounter Date Sequence Insurance Name Policy Number Policy Ortiz Covered Member ID Ortiz Member ID Guarantor Name 09/16/2024 1 [facility] - DOS ON OR AFTER 2022 - MEDICARE [place]VANTAGE [place] (MEDICARE REPLACEMENT/ADV ANTAGE - PPO) [place] Velasco [id number] [place] Velasco Notes Date Note Type Note [...] in his ears bilaterally. MAXWELL DALY PA-C [address] [place] [address], [place], [address], [facility] - [facility] 09/16/2024 13:49:51
--- OUTSIDE RECORDS SUMMARY | 2024-11-19 09:44 | XMS_ITS | Encounter Summary ---
Author Organization [employer] Address [address] [place] [address] [address] [place] [address] Care Team Providers Care Fertilizer Supervisor Name Role Phone Ashley Frankel MD Primary Care Provider [phone] Viktor November Unavailable Kishore Dorsey MD Unavailable Raheel Gee Unavailable [phone] Riya Fulton Unavailable Sergio Hackett Unavailable Unavailable Dominga Silva PharmD Unavailable Encounter Details Date Type Department Care Team (Late st Contact Info) Description 09/13/2022 Abstract [facility] MEDICINE [address] [place] [address] Ashley Frankel MD [address] [place] [address] Social History Tobacco Use Types Packs/Day Years [...] 8:00 AM EDT Office Visit [facility] ADULT DENTAL [address] [place] [address] Jackie Peacock 01/23/2025 9:45 AM EDT Office Visit [facility] MEDICINE [address] [place] [address] Ashley Frankel MD [address] [place] [address] documented as of this encounter Procedures Procedure Name Priority Date/Time Associated Diagnosis Comments COLONOSCOPY Routine 09/06/2012 documented in this encounter Results * Colonoscopy (09/06/2012) [facility] Signature Colonoscopy normal with Dr. Barrera us Historical Provider HEALTH MAINTENANCE Final Result documented in this encounter Visit Diagnoses Not on filedocumented in this encounter Care Teams Fertilizer Supervisor Relationship Specialty Start Date End Date Ashley Frankel MD [address] [place] [address] PCP - General Family Medicine 08/28/18November 11 [facility] [address] [place] [address] Gastroenterology 07/17/24 Kishore Dorsey MD [address] [place] [address] Urology 07/17/24 Raheel Gee [address] [place], [place] [address] Pulmonary Disease 07/17/24 Riya Fulton [address] [place] [address] Cardiology 07/17/24 Sergio Hackett [address] [place] [address] Orthopaedic Surgery 07/17/24 Dominga Silva PharmD [address] [place] [phone] Pharmacist Internal Medicine 07/22/24 Norm. [place] Psychiatry 10/10/24 documented as of this encounter
--- OUTSIDE RECORDS SUMMARY | 2024-11-19 09:44 | XMS_ITS | Encounter Summary ---
Author Organization [employer] Address [address] [place] [address] [address] [place] [address] Care Team Providers Care Orthopaedic Physician Assistant Name Role Phone Ashley Frankel MD Primary Care Provider [phone] Viktor November Unavailable Kishore Dorsey MD Unavailable [phone] Raheel Gee Unavailable [phone] Riya Fulton Unavailable Sergio Hackett Unavailable Unavailable Dominga Silva PharmD Unavailable Encounter Details Date Type Department Care Team (Late st Contact Info) Description 02/01/2023 Telephone [facility] MEDICINE [address] [place], [place] [phone] Ashley Frankel MD [address] [place], [place] [phone] Social History Tobacco Use Types Packs/Day Years [...] Description 12/09/2024 8:00 AM EDT Office Visit [facility] ADULT DENTAL [address] [place] [address] PeacockHerminio maynardsa 01/23/2025 9:45 AM EDT Office Visit [facility] MEDICINE [address] [place] [address] Ashley Frankel MD [address] [place] [address] documented as of this encounter Visit Diagnoses Not on filedocumented in this encounter Care Teams Orthopaedic Physician Assistant Relationship Specialty Start Date End Date Ashley Frankel MD [address] [place] [address] PCP - General Family Medicine 08/28/18 HoangNovember 11 [facility] [address] [place] [address] Gastroenterology 07/17/24 Kishore Dorsey MD 10 [facility] [address] [place] [address] Urology 07/17/24 Raheel Gee 5 [place], [place] [address] Pulmonary Disease 07/17/24 Riya Fulton [address] [address] Cardiology 07/17/24 Sergio Hackett [address] [place] [address] Orthopaedic Surgery 07/17/24 Dominga Silva, Mehrdad [address] [place] [address] Pharmacist Internal Medicine 07/22/24 De. Dalal Psychiatry 10/10/24 documented as of this encounter
--- OUTSIDE RECORDS SUMMARY | 2024-11-19 09:44 | XMS_ITS | Encounter Summary ---
Author Organization [employer] Address [address] [facility] 7[address] [place] [address] Care Team Providers Care Shoe Singer Name Role Phone Ashley Frankel MD Primary Care Provider [phone] Hoang November Unavailable Kishore Dorsey MD Unavailable Raheel Gee Unavailable [phone] Riya Fulton Unavailable Sergio Hackett Unavailable Unavailable Dominga Silva PharmD Unavailable Encounter Details Date Type Department Care Team (Late st Contact Info) Description 11/12/2024 Orders Only GENERIC EXTERNAL DATA [...] Visit [facility] ADULT DENTAL [address] [place] [address] Jackie Peacock 01/23/2025 9:45 AM EDT Office Visit [facility] MEDICINE [address] [place] [address] Ashley Frankel MD [address] [place] [address] documented as of this encounter Procedures Procedure Name Priority Date/Time Associated Diagnosis Comments CBC WITH AUTO DIFFERENTIAL Routine 11/12/2024 2:35 PM EDT MAGNESIUM Routine 11/12/2024 2:35 PM EDT LIPASE Routine 11/12/2024 2:35 PM EDT COMPREHENSIVE METABOLIC PANEL Routine 11/12/2024 2:35 PM EDT XR KUB AND UPRIGHT 2 VIEWS Routine 11/12/2024 2:25 PM EDT documented in this encounter Results * Lipase (11/12/2024 2:35 PM EDT) Lipase 22 8 - 78 U/L [facility] 11/12/2024 2:35 PM EDT 11/12/2024 2:39 PM EDT us Generic External Data Provider LAB BLOOD ORDERAB LES Final Result Performing Organization Address City/[facility]/ZIP Co de Phone Number [facility] [address] [place] [phone] * Magnesium (11/12/2024 2:35 PM EDT) Magnesium 2.0 1.6 - 2.6 mg/dL [facility] 11/12/2024 2:35 PM EDT 11/12/2024 2:39 PM EDT Generic External Data Provider LAB BLOOD ORDERAB LES Final Result Performing Organization Address [facility]/ZIP Co de Phone Number [facility] [address] [place] [phone] * (ABNORMAL) Comprehensive Metabolic Panel (11/12/2024 2:35 PM EDT) Sodium 143 135 - 145 mmol/L [facility] Potassium 3.7 3.3 - 5.1 mmol/L [facility] Chloride 108 96 - 108 mmol/L [facility] Carbon Dioxide 28 22 - 29 mmol/L [facility] Anion Gap 11(L) 12 - 20 [facility] Urea Nitrogen (BUN) 18(H) 9 - 16 mg/dL [facility] Creatinine, Serum 1.00 0.5 - 1.4 mg/dL [facility] Creatinine Clr Calc Pharmacy 79.3 [facility] Comment:eGFR (calculated fro m the MDRD study equation) and eCrCl(calculated from the Cockcroft-Gault equation) are based ondifferent parameters and may not yield comparable results.If eCrCl result is absurd, please check patient'sheight/weight. Estimated Glomerular Filt Rate >60 [facility] Comment:Chronic Kidney Disea se: Estimated GFR < 60 mL/min/1.95s4Hyfxvr Kidney Disease: Estimated GFR < 15 mL/min/1.73m2 Glucose 145(H) 60 - 115 mg/dL [facility] Calcium 9.5 8.4 - 10.2 mg/dL [facility] Bilirubin, Total 0.8 0.0 - 1.0 mg/dL [facility] Aspartate Amino Transferase 21 5 - 37 U/L [facility] Alanine Aminotransferase 12 0 - 40 U/L [facility] Total Protein 6.7 6.5 - 8.0 g/dL [facility] Albumin Level 3.9 3.5 - 5.0 g/dL [facility] Alkaline Phosphatase 92 39 - 117 U/L [facility] 11/12/2024 2:35 PM EDT 11/12/2024 2:39 PM EDT us Generic External Data Provider LAB BLOOD ORDERAB LES Final Result [facility] [address] [place] [phone] * (ABNORMAL) CBC auto differential (11/12/2024 2:35 PM EDT) White Blood Count 5.2 4.8 - 10.8 X10*3/uL [facility] Red Blood Count 4.14(L) 4.60 - 5.80 X10*6/uL [facility] Hemoglobin 12.9(L) 14.0 - 18.0 g/dl [facility] Hematocrit 36.8(L) 42.0 - 52.0 % [facility] Mean Corpuscular Volume 88.9 80.0 - 98.0 fL [facility] Mean Corpuscular Hemoglobin 31.2 27.0 - 33.0 pg [facility] Mean Corpuscular HGB Conc 35.1 31.0 - 36.0 g/dl [facility] Red Cell Distribution Width 12.4 11.0 - 16.0 % [facility] Platelet Count 230 160 - 400 X10*3/uL [facility] Mean Platelet Volume 10.2 9.4 - 12.4 fL [facility] Neutrophils Percent Auto 60.6 45 - 73 % [facility] Imm Gran Pct Auto 0.4 0.0 - 0.4 % [facility] Lymphocytes Percent Auto 25.6 20 - 40 % [facility] Monocytes Percent Auto 11.7(H) 2 - 11 % [facility] Eosinophils Percent Auto 1.1 0 - 4 % [facility] Basophils Percent Auto 0.6 0 - 2 % [facility] NRBC Pct Auto 0.0 0.0 - 0.2 /100WBC [facility] Neutrophils Absolute Auto 3.2 2.0 - 8.3 x10*3/uL [facility] Imm Gran Abs Auto 0.02 0.00 - 0.03 X10*3/uL [facility] Lymphocytes Absolute Auto 1.3 1.2 - 4.9 X10*3/uL [facility] Monocytes Absolute Auto 0.6 0.1 - 1.2 X10*3/uL [facility] Eosinophils Absolute Auto 0.1 0.0 - 0.4 X10*3/uL [facility] Basophils Absolute Auto 0.0 0.0 - 0.2 X10*3/uL [facility] NRBC Abs Auto 0.000 0.0 - 0.012 X10*3/uL [facility] 11/12/2024 2:35 PM EDT 11/12/2024 2:39 PM EDT us Generic External Data Provider LAB BLOOD ORDERAB LES Final Result [facility] [address] [place] [phone] * XR KUB and Upright 2 Views (11/12/2024 2:25 PM EDT) Anatomical Region Laterality Modality Radiographic Hannah ging 11/12/2024 2:25 PM EDT Narrative 11/12/2024 2:48 PM EDT ? [facility] ?[address] ?[place] [address] ?XRay Report ? Signed ? Patient: Krista,Bobby ?MR#: [id number] ? : 1965 ?Acct:[id number] ? Age/Sex: 59 / M ?ADM Date: 11/12/24 ? Loc: HO.ED ? Attending Dr: ? Ordering Physician: Nathalia Dorado ?? Date of Service: 11/12/24 ?? Procedure(s): XR KUB ?? Accession Number(s): [id number] ? cc: Ashley Frankel MD; Nathalia Dorado [...] DD/ 1425 ? TD/TT: 11/12/24 1442 ? Manager Supplier: ? Procedure Note Cesar Justice - 11/12/[address] [address] XRay Report Signed Patient: Pierce Velasco#: [id number] : 1965Acct:[id number] Age/Sex: 59 / MADM Date: 11/12/24 Loc: HO.ED Attending Dr: Ordering Physician: Nathalia Dorado Date of Service: 11/12/24 Procedure(s): XR KUB Accession Number(s): [id number] cc: Ashley Frankel MD; Nathalia Dorado EXAMINATION: [...] George Oquendo MD 11/12/2024 02:44 PM EDT RP Dictated By: George Oquendo MD Signed By: <Electronically signed by George Oquendo MD in OV> 11/12/24 1444 DD/ 1425 TD/TT: 11/12/24 1442 Manager Supplier: [facility] External Provider IMG XR PROCEDURES Final Result documented in this encounter Visit Diagnoses Not on filedocumented in this encounter Additional Health Concerns Assessment Noted Time PHQ-9 Depression Total Score: 0 07/17/20 10:33 AM EST documented as of this encounter Care Teams Shoe Singer Relationship Specialty Start Date End Date Ashley Frankel MD [address] [place] [address] PCP - General Family Medicine 08/28/18November [address] 3rd [place] [address] Gastroenterology 07/17/24 Kishore Dorsey MD [address] [place] [address] Urology 07/17/24 Raheel Gee [address] [place], [place] [address] Pulmonary Disease 07/17/24 Riya Fulton [address] [facility] 3rd [place] [address] Cardiology 07/17/24 S[facility] Hackett [address] [facility] [address] [place] [address] Orthopaedic Surgery 07/17/24 Dominga Silva, Mehrdad [address] [place] [address] Pharmacist Internal Medicine 07/22/24 De. [facility] Psychiatry 10/10/24 documented as of this encounter
--- OUTSIDE RECORDS SUMMARY | 2024-11-19 09:44 | XMS_ITS | Encounter Summary ---
Author Organization [employer] Address [address] [place] [address] [address] [place] [address] Care Team Providers Care Agricultural Commodities Inspector Name Role Phone Ashley Frankel MD Primary Care Provider [phone] Viktor November Unavailable Kishore Dorsey MD Unavailable Raheel Gee Unavailable [phone] Riya Fulton Unavailable Sergio Hackett Unavailable Unavailable Dominga Silva PharmD Unavailable Encounter Details Date Type Department Care Team (Late st Contact Info) Description 04/07/2023 Abstract [facility] MEDICINE [address] [place], [place] [phone] Ashley Frankel MD [address] [place], [place] [phone] Social History Tobacco Use Types Packs/Day Years [...] Visit [facility] ADULT DENTAL [address] [place] [address] Jackie Peacock 01/23/2025 9:45 AM EDT Office Visit [facility] MEDICINE [address] [place] [address] Ashley Frankel MD [address] [place] [address] documented as of this encounter Procedures Procedure Name Priority Date/Time Associated Diagnosis Comments COLONOSCOPY Routine 04/06/2023 documented in this encounter Results * Colonoscopy (04/06/2023) Colonoscopy Normal Normal us Historical Provider [facility] Final Result documented in this encounter Visit Diagnoses Not on filedocumented in this encounter Care Teams Agricultural Commodities Inspector Relationship Specialty Start Date End Date Ashley Frankel MD [address] [place] [address] PCP - General Family Medicine 08/28/18November 11 [facility] [address] [place] [address] Gastroenterology 07/17/24 Kishore Dorsey MD [address] [facility] [address] [place] [address] Urology 07/17/24 Raheel Gee 5 [place], [place] [address] Pulmonary Disease 07/17/24 Riya Fulton [address] [facility] [address] [place] [address] Cardiology 07/17/24 Sergio Hackett [address]nd [place] [address] Orthopaedic Surgery 07/17/24 Dominga Silva, Mehrdad [address] [place] [phone] Pharmacist Internal Medicine 07/22/24 [facility] Psych[facility] 10/10/24 documented as of this encounter
== END 2024-11-19 10:01 | disposition home or self-care (01) ==
LOC: HO.HUSH 08:56
PROVIDERS: PCP Family Medicine; Visit Provider Urology
DX: N40.1 Benign prostatic hyperplasia with lower urinary tract symptoms (principal); R35.1 Nocturia; N13.8 Other obstructive and reflux uropathy; N20.0 Calculus of kidney; N13.1 Hydronephrosis with ureteral stricture, not elsewhere classified; N20.1 Calculus of ureter; Z13.9 Encounter for screening, unspecified
CPT/HCPCS: 52000; 99213

== ENCOUNTER → 2024-11-19 08:55 | Outpatient (BNVA) | payer OTHER, SELFPAY | PROVIDERS: PCP Family Medicine; Visit Provider Urology | DX: J45.40 Moderate persistent asthma, uncomplicated (principal); J33.9 Nasal polyp, unspecified; J01.91 Acute recurrent sinusitis, unspecified; R91.8 Other nonspecific abnormal finding of lung field; K59.00 Constipation, unspecified; K21.9 Gastro-esophageal reflux disease without esophagitis; K62.5 Hemorrhage of anus and rectum; N40.1 Benign prostatic hyperplasia with lower urinary tract symptoms; N13.8 Other obstructive and reflux uropathy; R35.1 Nocturia | CPT/HCPCS: 52000; 81003; 99212 ==

== ENCOUNTER 2024-11-19 10:43 | Outpatient (AMB) | payer OTHER, SELFPAY ==
--- NOTE | 2024-11-19 10:44 | MHC.OFFVIS ---
Vital Signs 11/19/24 10:45 Height 5 ft 7 in Weight 171 lb 1.259 oz BMI 26.8 BP 149/85 H Blood Pressure Location Rt brachial Position Sitting Pulse 70 Intake Visit Reasons: follow up constipation Intake Note: Bobby presents in office today in follow up of constipation. CC: Patient reports epigastric pain, lower abdominal pain, and constipation. He reports a BM a day or two ago after drinking prune juice. Camera Storage Clerk Required: No Accompanied by: Self / Same As Patient Allergies amoxicillin [AMOXICILLIN] Allergy (Severe, Verified 11/19/24 10:49) ANAPHYLAXIS Penicillins Allergy (Severe, Verified 11/19/24 10:49) UNKNOWN REACTION-CHILDHOOD doxycycline [From VIBRAMYCIN] Adverse Reaction (Mild, Verified 11/19/24 10:49) DIARRHEA Clindamycin HCl Allergy (Severe, Uncoded 11/19/24 09:10) Anaphylaxis HPI HPI follow up constipation: Details: Assessment & Plan (1) Hx of colonoscopy: Comment: = negative study repeat in 10 years aeb Code(s): Z98.890 - Other specified postprocedural states Category: Surgical (2) Rectal bleeding: Comment: Moderate internal hemorrhoids Code(s): K62.5 - Hemorrhage of anus and rectum Category: Medical Plan The patient has been lost to follow-up since January of 2022. He is agreeable to a 10 year follow-up. The procedure was well tolerated. The results were explained and the patient is agreeable to the follow-up interval as stated. The bowel pattern has returned to normal. Education was provided to tell any 1st degree relatives about their findings to be sure that they are screened by age 45. Educated that they will be put on a recall list when it is time for their repeat scope but should they move out of state or away from the hospital they will need to remember along with their primary to repeat the procedure in a timely fashion to avoid any adverse complications. At this time he does not feel like he has any problems that he needs help with any has had no further bleeding. He only experiences occasional constipation TODAYS VISIT He has had quite a bit of trouble lately with his health because he had a 9 mm kidney stone! This a treated with lithotripsy but took quite a long time to pass completely and it was quite painful along the way. He is feeling better now and is following with Urology. During this he was given various pain medications among them tramadol and he has become constipated. With this she has had a slight return of rectal bleeding. In the past to utilize senna and Colace was success so will restart him on these medications and titrate to affect her side effect. He is also encouraged to drink lots of fluids both to help with his constipation and with his formation of kidney stones. Return office visit at next available to evaluate his response [facility] Medical History Opacity of lung on imaging study Pre-op examination GERD (gastroesophageal reflux disease) Orchialgia Weak urinary stream Asthma Nasal polyps Diabetes HTN (hypertension) Pulmonary nodules Surgical History History of esophagogastroduodenoscopy (EGD) Hx of colonoscopy H/O wrist surgery Family History Father Diabetes Hypertension Mother Hypertension Hyperlipidemia Brother Hypertension Family/Other Kidney stones Prostate cancer Bladder cancer Renal cancer Social History Household Members: None Housing: Apartment Alcohol intake: former Patient Tobacco Use Status: Former Tobacco user Tobacco use type: Cigarette Years Smoked: 30 years service: No Review of Systems Const Denies fatigue, Denies fever(s), Denies night sweats, Denies poor appetite and Denies weight loss ENT Reports Normal hearing present, Denies dental pain, Denies dysphagia, Denies hearing loss, Denies mouth pain, Denies odynophagia, Denies throat swelling, Denies tongue swelling and Reports other (Dentition adequate) Card Reports no additional complaints Resp Reports no additional complaints GI Details: Reports abdominal pain, Denies melena, Denies bloating, Reports hematochezia, Reports constipation, Denies GI cramping, Denies dysphagia, Denies excessive flatus, Denies early satiety, Denies heartburn, Denies diarrhea, Denies nausea, Denies odynophagia, Denies vomiting and Denies hematemesis Skin/Breast Denies pruritus, Denies lesions, Denies rash and Denies jaundice Neuro Reports Normal hearing present and Denies Abnormal speech present Endo Denies fatigue Aller/Immun Denies throat swelling and Denies tongue swelling Physical Exam Vital Signs: Last Vital Signs Pulse 70 11/19/24 10:45 BP 149/85 H 11/19/24 10:45 BMI result Body Mass Index 26.8 Const General: cooperative, no acute distress, well developed and well groomed Nutritional Appearance: average body habitus and well nourished Orientation/consciousness: oriented to person, oriented to place and oriented to time Limitations: No language barrier HEENT Head: Yes normocephalic and Yes atraumatic Eyes General: appearance normal, both eyes and all related structures Pupils: Equal, round and reactive pupils present Neck Neck: Yes normal visual inspection and Yes no lymphadenopathy Thyroid: Thyroid normal Resp Effort & Inspection: normal respiratory effort and able to speak in complete sentences Auscultation: clear to auscultation bilaterally Cardio Rate: regular rate Rhythm: regular rhythm Heart sounds: Normal, physiologic split S2 sound present Peripheral pulses: radial pulses present and posterior tibial pulses present GI Inspection: No distended and No Abdominal panniculus present Palpation (GI): Soft to palpation, Tenderness to palpation present (GI) in the LLQ and periumbilically, no guarding, not rigid and No hepatosplenomegaly present Percussion: Yes normal to percussion Auscultation: normal bowel sounds Rectal Exam - Male: Yes deferred Skin General skin exam: no rashes or lesions noted, turgor normal, skin not dry, no jaundice, No spider nevi and no striae Rashes: no rashes Nails: normal Neuro General: oriented to person, oriented to place and oriented to time Cranial nerves: Yes Equal, round and reactive pupils present and Yes Normal hearing present Speech: No Abnormal speech present Extrem General: Yes normal to inspection, No clubbing, No cyanosis and No edema Psych Appearance: grossly normal and well kempt Mental Status: mental status grossly normal Speech and movement: Normal speech and movement present Affect: normal affect Attitude: cooperative Thought process: Normal thought process present and not confabulating Thought content: Normal thought content present Insight: Fair insight present (Psych) Judgement: Fair judgement present (Psych) Results AMB Urinalysis, Automated UA Leukoctes 0 Ernesto/uL Last Edit by ZHANNA Guillaume on 11/19/24 09:27 UA Nitrite Negative Last Edit by Thea Agudelo [facility] on 11/19/24 09:27 UA Urobilinogen 3.5 mg/dL Last Edit by Thea Agudelo [facility] on 11/19/24 09:27 UA Protein 0 mg/dL Last Edit by Thea Agudelo [facility] on 11/19/24 09:27 UA pH 6.0 Last Edit by Thea Agudelo [facility] on 11/19/24 09:27 UA Blood 10 Jose Angel/uL Last Edit by Thea Agudelo [facility] on 11/19/24 09:27 UA Specific Howard 1.010 Last Edit by Thea Agudelo [facility] on 11/19/24 09:27 UA Ketone Negative Last Edit by Thea Agudelo [facility] on 11/19/24 09:27 UA Bilirubin 0 mg/dL Last Edit by Thea Agudelo [facility] on 11/19/24 09:27 UA Glucose 0 mg/dL Last Edit by Thea Agudelo [facility] on 11/19/24 09:27 Assessment & Plan Assessment & Plan (1) Constipation: Code(s): K59.00 - Constipation, unspecified Category: Medical (2) GERD (gastroesophageal reflux disease): Code(s): K21.9 - Gastro-esophageal reflux disease without esophagitis Category: Medical (3) Rectal bleeding: Comment: Moderate internal hemorrhoids Code(s): K62.5 - Hemorrhage of anus and rectum Category: Medical Plan He has had quite a bit of trouble lately with his health because he had a 9 mm kidney stone! This a treated with lithotripsy but took quite a long time to pass completely and it was quite painful along the way. He is feeling better now and is following with Urology. During this he was given various pain medications among them tramadol and he has become constipated. With this she has had a slight return of rectal bleeding. In the past to utilize senna and Colace was success so will restart him on these medications and titrate to affect her side effect. He is also encouraged to drink lots of fluids both to help with his constipation and with his formation of kidney stones. Return office visit at next available to evaluate his response Medications: Changed From sennosides (senna) 8.6 mg PO BEDTIME PRN 14 caps 0RF constipation K59.00 - Constipation, unspecified To sennosides (senna) 17.2 mg (2 x 8.6 mg) PO BEDTIME PRN 60 caps 6RF constipation K59.00 - Constipation, unspecified From docusate sodium (Colace) 100 mg PO BID 14 caps 0RF K59.00 - Constipation, unspecified To docusate sodium (Colace) 100 mg PO .qhs 30 caps 6RF K59.00 - Constipation, unspecified Coding Level of Care Code Est Pt Level 3 (46597) Diagnoses Constipation K59.00 GERD (gastroesophageal reflux disease) K21.9 Rectal bleeding K62.5
[2024-11-19 10:45] VITALS: BP 149/85; PULSE 70; BMI 26.8
--- OUTSIDE RECORDS SUMMARY | 2024-11-19 12:58 | XMS_ITS | Encounter Summary ---
Author Organization [employer] Address [address] [facility] [address] [place] [address] Care Team Providers Care Back Up Worker Name Role Phone Ashley Frankel MD Primary Care Provider [phone] Viktor November Unavailable Kishore Dorsey MD Unavailable Raheel Gee Unavailable [phone] Riya Fulton Unavailable Sergio Hackett Unavailable Unavailable Dominga Silva PharmD Unavailable Encounter Details Date Type Department Care Team (Late st Contact Info) Description 10/28/2024 Telephone [facility] MEDICINE [address] [place], [place] [phone] Ashley Frankel MD [address] [place], [place] [phone] Social History Tobacco Use Types Packs/Day Years [...] for patient to contact Arminda Baker at [phone]. documented in this encounter Plan of Treatment Upcoming Encounters Date Type Department Care Team (Late st Contact Info) Description 12/09/2024 8:00 AM EDT Office Visit [facility] ADULT DENTAL [address] [place] [address] Jackie Peacock 01/23/2025 9:45 AM EDT Office Visit [facility] MEDICINE [address] [place] [address] Ashley Frankel MD [address] [place] [address] documented as of this encounter Visit Diagnoses Not on filedocumented in this encounter Additional Health Concerns Assessment Noted Time PHQ-9 Depression Total Score: 0 07/17/20 24 10:33 AM EST documented as of this encounter Care Teams Back Up Worker Relationship Specialty Start Date End Date Ashley Frankel MD [address] [place] [address] PCP - General Family Medicine 08/28/18 Viktor November [address]rd [place] [address] Gastroenterology 07/17/24 Kishore Dorsey MD [address] [place] [address] Urology 07/17/24 Raheel Gee 5 [place], [place] [address] Pulmonary Disease 07/17/24 Riya Fulton [address] [address] Cardiology 07/17/24 Sergio Hackett [address] [place] [address] Orthopaedic Surgery 07/17/24 Dominga Silva, Mehrdad [address] [place] [address] Pharmacist Internal Medicine 07/22/24 De. [facility] Psychiatry 10/10/24 documented as of this encounter
--- OUTSIDE RECORDS SUMMARY | 2024-11-19 12:58 | XMS_ITS | Encounter Summary ---
Author Organization [employer] Address [address] [place] [address] [address] [address] Care Team Providers Care Relief Pilot Name Role Phone Ashley Frankel MD Primary Care Provider [phone] Viktor November Unavailable Kishore Dorsey MD Unavailable Raheel Gee Unavailable [phone] Riya Fulton Unavailable Sergio Hackett Unavailable Unavailable Dominga Silva PharmD Unavailable Reason for Referral * Consultation (Routine) - Authorized Specialty Diagnoses / Procedures Referred By Jeromy worrell Referred To Contact Pharmacy Diagnoses Primary hypertension Ashley Frankel MD [address] [place] [address] Phone: tel: fax: Referral ID Status Reason Start Date Expiration Date Visits Requested Visits Authorized [id number] Authorized Continuity of Care 10/24/2024 10/24/2025 6 6 * Consultation (Routine) - Authorized Specialty Diagnoses / Procedures Referred By Jeromy worrell Referred To Contact Pharmacy Diagnoses Primary hypertension Ashley Frankel MD [address] [place] [address] Phone: tel: fax: Referral ID Status Reason Start Date Expiration Date Visits Requested Visits Authorized [id number] Authorized Consult and Treat 10/24/2024 10/24/2025 6 6 Reason for Visit * Reason Comments follow up bp Encounter Details Date Type Department Care Team (Latest Contact Info) Description 10/24/2024 9:15 AM EST Office Visit [facility] MEDICINE [address] [place] [address] Ashley Frankel MD [address] [place] [address] Primary hypertension (Primary Dx); Weight loss, non-intentional; [...] [facility] ADULT DENTAL [address] [place] [address] Jackie Peacock 01/23/2025 9:45 AM EDT Office Visit [facility] MED[facility]INE [address] [place] [address] Ashley Frankel MD [address] [place] [address] Scheduled Referrals Name Type Priority Associated Diagnoses [...] 9:22 AM EST) HIV AB/AG Nonreactive Nonreactive [facility] Comment:HIV-1 p24 Ag and/or HIV-1/HIV-2 Ab not detected.A test result that is nonreactive does not exclude thepossibility of exposure to or infection with HIV-1 and/orHIV-2. Nonreactive results in this assay for individualswith prior exposure to HIV-1 and/or HIV-2 may be due toantigen and antibody levels that are below the limit ofdetection of this assay.The [employer] HIV Ag/Ab Combo assay result andsupplemental assay results should be interpreted inconjunction with the patient's clinical presentation,history and other laboratory results. If the results areinconsistent with clinical evidence, additional testing issuggested to confirm the result. Blood Venous blood specimen / Unknown 10/24/2024 9:22 AM EST 10/24/2024 11:48 AM EST us Ashley Frankel MD LAB BLOOD ORDERABLES Final Result [facility] [address] [place] [phone] * TSH W/Reflex to FT4 (10/24/2024 9:22 AM EST) TSH reflex Free T4 1.31 0.32 - 4.0 uIU/mL [facility] Blood Venous blood specimen / Unknown 10/24/2024 9:22 AM EST 10/24/2024 11:48 AM EST Ashley Frankel MD LAB BLOOD ORDERABLES Final Result Performing Organization Address City/[facility] Co de Phone Number [facility] [address] [place] [phone] * Vitamin D, 25-Hydroxy, Total, Immunoassay (10/24/2024 9:22 AM EST) Vitamin D 25-OH Total 39.3 >30 ng/mL [facility] Comment:Health Based Referen ce Values*< 20 ng/mL Etxzaxxst30-37 ng/mL Insufficient> 30 ng/mL Sufficient*Colleen GILL. N [...] ORDERABLES Final Result Performing Organization Address [facility] Co de Phone Number [facility] [address] [place] [phone] * Lactate Dehydrogenase (LD) (10/24/2024 9:22 AM EST) Lactate Dehydrogenase 248 118 - 273 U/L [facility] Blood Venous blood specimen / Unknown 10/24/2024 9:22 AM EST 10/24/2024 11:48 AM EST Ashley Frankel MD LAB BLOOD ORDERABLES Final Result Performing Organization Address City/[facility] Co de Phone Number [facility] [address] [place] [address] [phone] documented in this encounter Visit Diagnoses [...] documented as of this encounter Care Teams Relief Pilot Relationship Specialty Start Date End Date Ashley Frankel MD [address] [place] [address] PCP - General Family Medicine 08/28/18 Viktor Sonya [address] [facility] [address] [place] [address] Gastroenterology 07/17/24 Kishore Dorsey MD 10 [facility] [address] [place] [address] Urology 07/17/24 Raheel Gee 5 [place], [place] [address] Pulmonary Disease 07/17/24 Ryia Fulton [address] [place] [address] Cardiology 07/17/24 Sergio Hackett [address] [place] [address] Orthopaedic Surgery 07/17/24 Dominga Silva, AnanthD [address] [place] [address] Pharmacist Internal Medicine 07/22/24 [facility] 2/13/25 documented as of this encounter
--- OUTSIDE RECORDS SUMMARY | 2024-11-19 12:58 | XMS_ITS | Encounter Summary ---
Author Organization [employer] Address [address] [facility] 7t [place] [address] Care Team Providers Care Probate Clerk Name Role Phone Ashley Frankel MD Primary Care Provider [phone]- [phone] Viktor November Unavailable Kishore Dorsye MD Unavailable [phone] Raheel Gee Unavailable [phone] Riya Fulton Unavailable Sergio Hackett Unavailable Unavailable Dominga Silva PharmD Unavailable Encounter Details Date Type Department Care Team (Late st Contact Info) Description 11/08/2024 Telephone [facility]INE [address] [place], [place] [phone] Ashley Frankel MD [address] [place], [place] [phone] Social History Tobacco Use Types Packs/Day Years [...] [facility] [address] [place], [place] [phone] Jackie Peacock 01/23/2025 9:45 AM EDT Office Visit [facility] [address] [place], [place] [phone] Ashley Frankel MD [address] [place], [place] [phone] documented as of this encounter Visit Diagnoses Not on filedocumented in this encounter Additional Health Concerns Assessment Noted Time PHQ-9 Depression Total Score: 0 07/17/20 10:33 AM EST documented as of this encounter Care Teams Probate Clerk Relationship Specialty Start Date End Date Ashley Frankel MD [address] [place] [address] PCP - General Family Medicine 08/28/18HoangNovember [address] [place] [address] Gastroenterology 07/17/24 Kishore Dorsey MD [address] [place] [address] Urology 07/17/24 Raheel Gee 5 [place], [place] [address] Pulmonary Disease 07/17/24 Riya Fulton [address] [address] Cardiology 07/17/24 Sergio Hackett [address] [place] [address] Orthopaedic Surgery 07/17/24 Dominga Silva, AnanthD [address] [place] [address] Pharmacist Internal Medicine 07/22/24 [facility] 10/10/24 documented as of this encounter
--- OUTSIDE RECORDS SUMMARY | 2024-11-19 12:58 | XMS_ITS | Encounter Summary ---
Author Organization [employer] Address [address] [facility] 7t [place] [address] Care Team Providers Care Electric Well Logging Operator Name Role Phone Ashley Frankel MD Primary Care Provider [phone] Hoang November Unavailable Kishore Dorsey MD Unavailable Raheel Gee Unavailable [phone] Riya Fulton Unavailable Sergio Hackett Unavailable Unavailable Dominga Silva PharmD Unavailable Encounter Details Date Type Department Care Team (Late st Contact Info) Description 10/24/2024 Orders Only [facility] External Provider, [facility] Social History Tobacco Use Types Packs/Day [...] Description 12/09/2024 8:00 AM EDT Office Visit [facility] ADULT DENTAL [address] [place] [address] Jackie Peacock 01/23/2025 9:45 AM EDT Office Visit [facility] MEDICINE [address] [place] [address] Ashley Frankel MD [address] [place] [address] documented as of this encounter Procedures Procedure [...] Sensitivity Troponin I (10/24/2024 4:58 PM EST) [facility] TROPONIN I HIGH SENSITIVITY 3.4 <3.5 - 35.0 ng/L [facility] Comment:The Schmidt high sens itivity Troponin-I results should beused in conjunction with other diagnostic information suchas ECG, clinical observations and information, and patientsymptoms to aid in the diagnosis of [place]. 10/24/2024 4:58 PM EST 10/24/2024 5:02 PM EST Generic External Data Provider LAB BLOOD ORDERAB LES Final Result Performing Organization Address [facility] Co de Phone Number [facility] [address] [place] [phone] * High Sensitivity Troponin I (10/24/2024 2:30 PM EST) [facility] TROPONIN I HIGH SENSITIVITY 4.1 <3.5 - 35.0 ng/L [facility] Comment:The Schmidt high sens itivity Troponin-I results should beused in conjunction with other diagnostic information suchas ECG, clinical observations and information, and patientsymptoms to aid in the diagnosis of [place]. 10/24/2024 2:30 PM EST 10/24/2024 2:33 PM EST Generic External Data Provider LAB BLOOD ORDERAB LES Final Result Performing Organization Address [facility] Co de Phone Number [facility] [address] [place] [phone] * B Type Natriuretic Peptide (BNP) (10/24/2024 2:30 PM EST) [facility] B Type Natriuretic Peptide 32 <100 pg/mL [facility] Comment:For those patients w ho are being treated with Natrecor(nesiritide, recombinant BNP), BNP testing should beperformed at least two hours post treatment in order toensure that only endogenous levels of BNP are detected. 10/24/2024 2:30 PM EST 10/24/2024 2:33 PM EST us Generic External Data Provider LAB BLOOD ORDERAB LES Final Result [facility] [address] [place], [place] [phone] * (ABNORMAL) Comprehensive Metabolic Panel (10/24/2024 2:30 PM EST) Sodium 141 135 - 145 mmol/L [facility] Potassium 3.8 3.3 - 5.1 mmol/L [facility] Chloride 108 96 - 108 mmol/L [facility] Carbon Dioxide 28 22 - 29 mmol/L [facility] Anion Gap 9(L) 12 - 20 [facility] Urea Nitrogen (BUN) 12 9 - 16 mg/dL [facility] Creatinine, Serum 0.91 0.5 - 1.4 mg/dL [facility] Creatinine Clr Calc Pharmacy 80.7 [facility] Comment:eGFR (calculated fro m the MDRD study equation) and eCrCl(calculated from the Cockcroft-Gault equation) are based ondifferent parameters and may not yield comparable results.If eCrCl result is absurd, please check patient'sheight/weight. Estimated Glomerular Filt Rate >60 [facility] Comment:Chronic Kidney Disea se: Estimated GFR < 60 mL/min/1.89r6Egvgml Kidney Disease: Estimated GFR < 15 mL/min/1.73m2 Glucose 197(H) 60 - 115 mg/dL [facility] Calcium 8.9 8.4 - 10.2 mg/dL [facility] Bilirubin, Total 0.7 0.0 - 1.0 mg/dL [facility] Aspartate Amino Transferase 22 5 - 37 U/L [facility] Alanine Aminotransferase 12 0 - 40 U/L [facility] Total Protein 6.8 6.5 - 8.0 g/dL [facility] Albumin Level 3.9 3.5 - 5.0 g/dL [facility] Alkaline Phosphatase 88 39 - 117 U/L [facility] 10/24/2024 2:30 PM EST 10/24/2024 2:33 PM EST Generic External Data Provider LAB BLOOD ORDERAB LES Final Result Performing Organization Address [facility] Co de Phone Number [facility] [address] [place] [phone] * Partial Thromboplastin Time, Activated (APTT) (10/24/2024 2:30 PM EST) Partial Thromboplastin Time 35.7 26.0 - 36.8 SEC [facility] Comment:For information rega rding the monitoring of direct thrombininhibitors, please refer to Pharmacy. 10/24/2024 2:30 PM EST 10/24/2024 2:33 PM EST Generic External Data Provider LAB BLOOD ORDERAB LES Final Result Performing Organization Address [facility] de Phone Number [facility] [address] [place] [phone] * Prothrombin Time-INR (10/24/2024 2:30 PM EST) Prothrombin Time 10.9 10.9 - 12.4 SEC [facility] INTERNATIONAL NORM RATIO 0.9 0.9 - 1.1 [facility] Comment:INTERNATIONAL NORMAL IZED RATIO (INR) [...] Provider LAB BLOOD ORDERAB LES Final Result [facility] [address] [place] [address] [phone] * (ABNORMAL) CBC auto differential (10/24/2024 2:30 PM EST) White Blood Count 5.1 4.8 - 10.8 X10*3/uL [facility] Red Blood Count 4.31(L) 4.60 - 5.80 X10*6/uL [facility] Hemoglobin 13.0(L) 14.0 - 18.0 g/dl [facility] Hematocrit 39.1(L) 42.0 - 52.0 % [facility] Mean Corpuscular Volume 90.7 80.0 - 98.0 fL [facility] Mean Corpuscular Hemoglobin 30.2 27.0 - 33.0 pg [facility] Mean Corpuscular HGB Conc 33.2 31.0 - 36.0 g/dl [facility] Red Cell Distribution Width 12.6 11.0 - 16.0 % [facility] Platelet Count 290 160 - 400 X10*3/uL [facility] Mean Platelet Volume 9.7 9.4 - 12.4 fL [facility] Neutrophils Percent Auto 68.7 45 - 73 % [facility] Imm Gran Pct Auto 0.2 0.0 - 0.4 % [facility] Lymphocytes Percent Auto 19.5(L) 20 - 40 % [facility] Monocytes Percent Auto 9.8 2 - 11 % [facility] Eosinophils Percent Auto 1.2 0 - 4 % [facility] Basophils Percent Auto 0.6 0 - 2 % [facility] NRBC Pct Auto 0.0 0.0 - 0.2 /100WBC [facility] Neutrophils Absolute Auto 3.5 2.0 - 8.3 x10*3/uL [facility] Imm Gran Abs Auto 0.01 0.00 - 0.03 X10*3/uL [facility] Lymphocytes Absolute Auto 1.0(L) 1.2 - 4.9 X10*3/uL [facility] Monocytes Absolute Auto 0.5 0.1 - 1.2 X10*3/uL [facility] Eosinophils Absolute Auto 0.1 0.0 - 0.4 X10*3/uL [facility] Basophils Absolute Auto 0.0 0.0 - 0.2 X10*3/uL [facility] NRBC Abs Auto 0.000 0.0 - 0.012 X10*3/uL [facility] 10/24/2024 2:30 PM EST 10/24/2024 2:33 PM EST us Generic External Data Provider LAB BLOOD ORDERAB LES Final Result [facility] [address] [place] [phone] * XR Chest 1 View (10/24/2024 1:22 PM EST) Anatomical Region Laterality Modality Chest Radiographic Hannah ging 10/24/2024 1:22 PM EST Narrative 10/24/2024 1:45 PM EST ? [facility] ?[address] ?[place] [address] ?XRay Report ? Signed ? Patient: Krista,Bobby ?MR#: [id number] ? : 1965 ?Acct:[id number] ? Age/Sex: 59 / M ?ADM Date: 10/24/ ? Loc: HO.ED ? Attending Dr: ? Ordering Physician: Alexy Yang ?? Date of Service: 02/27/25 ?? Procedure(s): XR chest 1V ?? Accession Number(s): [id number] ? cc: Alexy Yang; Ashley Frankel MD [...] DD/ 1322 ? TD/TT: 10/24/24 1336 ? Weather Algorithm Scientist: ? Procedure Note Donjacobter, Image - 10/24/2024 [place] [address] XRay Report Signed Patient: Pierce Velasco#: [id number] : 1965Acct:[id number] Age/Sex: 59 / MADM Date: 10/24/24 Loc: HO.ED Attending Dr: Ordering Physician: Alexy Yang Date of Service: 10/24/24 Procedure(s): XR chest 1V Accession Number(s): [id number] cc: Alexy Yang; Ashley Frankel MD EXAMINATION: [...] 10/24/24 1342 DD/ 1322 TD/TT: 10/24/24 1336 Weather Algorithm Scientist: [facility] External Provider IMG XR PROCEDURES Final Result documented in this encounter Visit Diagnoses Not on filedocumented in this encounter Additional Health Concerns Assessment Noted Time PHQ-9 Depression Total Score: 0 07/17/20 10:33 AM EST documented as of this encounter Care Teams Electric Well Logging Operator Relationship Specialty Start Date End Date Ashley Frankel MD [address] [place] [address] PCP - General Family Medicine 08/28/18November [address] [address] Gastroenterology 07/17/24 Kishore Dorsey MD [address] [facility] [address] [place] [address] Urology 07/17/24 Raheel Gee 5 [place], [place] [address] Pulmonary Disease 07/17/24 Riya Fulton [address] [address] Cardiology 07/17/24 Sergio Hackett [address] [place] [address] Orthopaedic Surgery 07/17/24 Dominga Silva, Mehrdad [address] [place] [address] Pharmacist Internal Medicine 07/22/24 [facility] 10/10/24 documented as of this encounter
--- OUTSIDE RECORDS SUMMARY | 2024-11-19 12:58 | XMS_ITS | Encounter Summary ---
Author Organization [employer] Address [address] [place] [address] 7t [place] [address] Care Team Providers Care Middle Stitcher Name Role Phone Ashley Frankel MD Primary Care Provider [phone] Viktor Sonya Unavailable Kishore Dorsey MD Unavailable Raheel Gee Unavailable [phone] Riya Fulton Unavailable Sergio Hackett Unavailable Unavailable Dominga Silva PharmD Unavailable Encounter Details Date Type Department Care Team (Late st Contact Info) Description 07/25/2022 Abstract [facility] ADULT DENTAL [address] [place] [address] Dental, Provider, DDS Social History Tobacco Use [...] [facility] [address] [place] [address] Jackie Peacock 01/23/2025 9:45 AM EDT Office Visit [facility] MED[facility]INE [address] [place] [address] Ashley Frankel MD [address] [place] [address] documented as of this encounter Procedures Procedure [...] on filedocumented in this encounter Care Teams Middle Stitcher Relationship Specialty Start Date End Date Ashley Frankel MD [address] [place] [address] PCP - General Family Medicine 08/28/18November [address] 3rd [place] [address] Gastroenterology 07/17/24 Kishore Dorsey MD [address] [place] [address] Urology 07/17/24 Raheel Gee 5 [place], [place] 10[address] Pulmonary Disease 07/17/24 Riya Fulton [address] 3rd [place] [address] Cardiology 07/17/24 Sergio Hackett [address]nd [place] [address] Orthopaedic Surgery 07/17/24 Dominga Silva, AnanthD [address] [place] [address] Pharmacist Internal Medicine 07/22/24 [facility] 10/10/24 documented as of this encounter
--- OUTSIDE RECORDS SUMMARY | 2024-11-19 12:58 | XMS_ITS | Clinical Summary ---
Author Organization 175 [facility] Address [address] [place] [address] Phone Care Team Providers Care Mover Name Role Phone Ashley Frankel MD Primary Care Provider [phone]- [phone] Allergies Active Allergy Reactions Criticality Noted Date Comments Clindamycin Anaphylaxis,Unknown High 03/29/2012 Doxycycline Diarrhea,Unknown Low 01/31/2023 Penicillins Anaphylaxis,Unknown High 04/06/2012 Other reaction(s): UNKNOWN REACTION-CHILDHOOD Encounters Date Type Department Care Team Description 10/12/2024 3:45 AM EST - 10/12/2024 9:39 AM EST Emergency [facility] Emergency [address] [place] [address] Smith Quan MD Urinary tract infection with hematuria, site unspecified (Primary Dx); Kidney stone; Acute urinary tract infection Discharge Disposition: Home or Self Care from Last 3 Months Medical History Medical History Date Comments Hypertension Diabetes mellitus ([facility]/HCC) Social History Tobacco Use Types Packs/Day [...] 9:00 AM EDT Consult Orthopedic Surgery - [place] 250 175 [facility] [address] [place] [address] Raheel Slater, PORTER [address] [address] Health Maintenance Due Date Last Done Comments [...] K/mcL LAB HEMETOLOGY METHOD 10/12/2024 12:01 AM [facility] RBC 4.60 4.50 - 5.50 M/mcL LAB HEMETOLOGY METHOD 10/12/2024 12:01 AM [facility] Hemoglobin 14.1 13.5 - 17.5 g/dL LAB HEMETOLOGY METHOD 10/12/2024 12:01 AM [facility] Hematocrit 42.7 42.0 - 54.0 % LAB HEMETOLOGY METHOD 10/12/2024 12:01 AM [facility] MCV 92.2 79.0 - 98.0 FL LAB HEMETOLOGY METHOD 10/12/2024 12:01 AM [facility] MCH 30.5 27.0 - 32.0 pcg LAB HEMETOLOGY METHOD 10/12/2024 12:01 AM [facility] MCHC 33.0 32.0 - 37.0 g/dL LAB HEMETOLOGY METHOD 10/12/2024 12:01 AM [facility] RDW 12.8 11.0 - 15.0 % LAB HEMETOLOGY METHOD 10/12/2024 12:01 AM [facility] Platelets 327 130 - 400 K/mcL LAB HEMETOLOGY METHOD 10/12/2024 12:01 AM [facility] MPV 10.4 7.0 - 11.0 FL LAB HEMETOLOGY METHOD 10/12/2024 12:01 AM [facility] NRBC 0.0 <1.0 % LAB HEMETOLOGY METHOD 10/12/2024 12:01 AM [facility] NRBC Absolute 0.00 <0.10 K/mcL LAB HEMETOLOGY METHOD 10/12/2024 12:01 AM [facility] Neutrophils Relative 66.8 % LAB HEMETOLOGY METHOD 10/12/2024 12:01 AM [facility] Lymphocytes Relative 21.5 % LAB HEMETOLOGY METHOD 10/12/2024 12:01 AM [facility] Monocytes Relative 9.6 % LAB HEMETOLOGY METHOD 10/12/2024 12:01 AM [facility] Eosinophils Relative 1.2 % LAB HEMETOLOGY METHOD 10/12/2024 12:01 AM [facility] Basophils Relative 0.4 % LAB HEMETOLOGY METHOD 10/12/2024 12:01 AM [facility] Immature Granulocytes Relative 0.5 % LAB HEMETOLOGY METHOD 10/12/2024 12:01 AM [facility] Neutrophils Absolute 5.12 1.50 - 7.00 K/mcL LAB HEMETOLOGY METHOD 10/12/2024 12:01 AM [facility] Lymphocytes Absolute 1.65 1.00 - 5.00 K/mcL LAB HEMETOLOGY METHOD 10/12/2024 12:01 AM [facility] Monocytes Absolute 0.74 0.20 - 1.00 K/mcL LAB HEMETOLOGY METHOD 10/12/2024 12:01 AM [facility] Eosinophils Absolute 0.09 0.00 - 0.50 K/[facility] LAB HEMETOLOGY METHOD 10/12/2024 12:01 AM [facility] Basophils Absolute 0.03 0.00 - 0.20 K/mcL LAB HEMETOLOGY METHOD 10/12/2024 12:01 AM [facility] Immature Granulocytes Absolute 0.04(H) 0.00 - 0.03 K/mcL LAB HEMETOLOGY METHOD 10/12/2024 12:01 AM [facility] Blood Venous blood specimen / Unknown Venipuncture / Unknown 10/11/2024 11:18 PM EST 10/11/2024 11:44 PM EST Smith Quan MD LAB BLOOD ORDERABLES Final Result [facility] [address] [place] [address], * (ABNORMAL) Comprehensive metabolic panel (10/11/2024 11:18 PM EST) Sodium 138 133 - 145 mmol/L LAB CHEMISTRY METHOD 10/12/2024 12:38 AM [facility] Potassium 4.3 3.5 - 5.5 mmol/L LAB CHEMISTRY METHOD 10/12/2024 12:38 AM [facility] Chloride 107 96 - 110 mmol/L LAB CHEMISTRY METHOD 10/12/2024 12:38 AM [facility] CO2 30 21 - 32 mmol/L LAB CHEMISTRY METHOD 10/12/2024 12:38 AM [facility] Anion Gap 1(L) 3 - 11 LAB CHEMISTRY METHOD 10/12/2024 12:38 AM [facility] Glucose 126(H) 70 - 100 mg/dL LAB CHEMISTRY METHOD 10/12/2024 12:38 AM [facility] BUN 15 5 - 25 mg/dL LAB CHEMISTRY METHOD 10/12/2024 12:38 AM [facility] Creatinine 1.15 0.70 - 1.30 mg/dL LAB CHEMISTRY METHOD 10/12/2024 12:38 AM [facility] eGFR 73 >=60 mL/min/1. 73m2 LAB CHEMISTRY METHOD 10/12/2024 12:38 AM [facility] Comment:Calculation based on the??Chronic Kidney Disease Epidemiology Collaboration (CKD-EPI) equation refit??without adjustment for race. BUN/Creatinine Ratio 13.0 LAB CHEMISTRY METHOD 10/12/2024 12:38 AM [facility] Calcium 9.8 8.5 - 10.5 mg/dL LAB CHEMISTRY METHOD 10/12/2024 12:38 AM [facility] AST (SGOT) 24 10 - 42 unit/L LAB CHEMISTRY METHOD 10/12/2024 12:38 AM [facility] ALT (SGPT) 22 10 - 60 unit/L LAB CHEMISTRY METHOD 10/12/2024 12:38 AM [facility] Alkaline Phosphatase 100 42 - 121 unit/L LAB CHEMISTRY METHOD 10/12/2024 12:38 AM [facility] Total Protein 6.9 6.0 - 8.0 g/dL LAB CHEMISTRY METHOD 10/12/2024 12:38 AM [facility] Albumin 3.9 3.2 - 5.0 g/dL LAB CHEMISTRY METHOD 10/12/2024 12:38 AM [facility] Total Bilirubin 0.6 0.0 - 1.4 mg/dL LAB CHEMISTRY METHOD 10/12/2024 12:38 AM [facility] Blood Venous blood specimen / Unknown Venipuncture / Unknown 10/11/2024 11:18 PM EST 10/11/2024 11:44 PM EST us Smith Quan MD LAB BLOOD ORDERABLES Final Result [facility] [address] [place] [address], [place] [phone] * (ABNORMAL) Urinalysis with reflex microscopic and culture (10/11/2024 10:34 PM EST) Specific [place] Urine 1.014 1.003 - 1.030 LAB URINALYSIS - AUTOMATED METHOD 10/12/2024 6:50 AM [facility] pH, Urine 5.5 5.0 - 8.0 pH LAB URINALYSIS - AUTOMATED METHOD 10/12/2024 6:50 AM [facility] Leukocytes, Urine Moderate(A) Negative LAB URINALYSIS - AUTOMATED METHOD 10/12/2024 6:50 AM [facility] Nitrite, Urine Positive(A) Negative LAB URINALYSIS - AUTOMATED METHOD 10/12/2024 6:50 AM [facility] Protein, Urine 300(A) <=Trace mg/dL LAB URINALYSIS - AUTOMATED METHOD 10/12/2024 6:50 AM [facility] Glucose, Urine Negative Negative mg/dL LAB URINALYSIS - AUTOMATED METHOD 10/12/2024 6:50 AM [facility] Ketones, Urine Negative Negative mg/dL LAB URINALYSIS - AUTOMATED METHOD 10/12/2024 6:50 AM [facility] Urobilinogen, Urine 1.0 0.2 - 1.0 mg/dL LAB URINALYSIS - AUTOMATED METHOD 10/12/2024 6:50 AM [facility] Bilirubin, Urine Small(A) Negative LAB URINALYSIS - AUTOMATED METHOD 10/12/2024 6:50 AM [facility] Blood, Urine Large(A) Negative LAB URINALYSIS - AUTOMATED METHOD 10/12/2024 6:50 AM [facility] RBC, Urine 1,724.4(H) 0 - 4 /HPF LAB URINALYSIS - AUTOMATED METHOD 10/12/2024 6:50 AM [facility] Comment:This is an appended report. These results have been appended to a previously preliminary verified report. WBC, Urine 48.9(H) 0 - 4 /HPF LAB URINALYSIS - AUTOMATED METHOD 10/12/2024 6:50 AM [facility] Comment:This is an appended report. These results have been appended to a previously preliminary verified report. Squamous Epithelial, Urine >100(H) 0 - 60 /LPF LAB URINALYSIS - AUTOMATED METHOD 10/12/2024 6:50 AM [facility] Comment:This is an appended report. These results have been appended to a previously preliminary verified report. Crystals, Urine LT CALCIUM OXALATE /LPF LAB URINALYSIS - AUTOMATED METHOD 10/12/2024 6:50 AM [facility] Comment:Corrected result: Pr eviously reported on 10/11/2024 at 2351 EST. Bacteria, Urine Negative Negative /HPF LAB URINALYSIS - AUTOMATED METHOD 10/12/2024 6:50 AM [facility] Comment: Edited result: Previously reported as Negative /HPF on 10/11/2024 at 2351 EST. This is an appended report. ??These results have been appended to a previously final verified report. Hyaline Casts, Urine 13.6(H) 0 - 3 /LPF LAB URINALYSIS - AUTOMATED METHOD 10/12/2024 6:50 AM [facility] Comment:This is an appended report. These results have been appended to a previously preliminary verified report. Urine Urine specimen obtained by clean catch procedure / Unknown Non-blood Collection / Unknown 10/11/2024 10:34 PM EST 10/11/2024 11:07 PM EST Smith Quan MD LAB URINE ORDERABLES Edited Result - Final Performing Organization Address [facility] Co de Phone Number [facility] [address] [place] [address], [place] [phone] * [place] urine culture tube (10/11/2024 10:34 PM EST) Extra Tube Hold for add-ons. 10/12/2024 1:11 AM [facility] Comment:Auto resulted. Urine Urine specimen obtained by clean catch procedure / Unknown Non-blood Collection / Unknown 10/11/2024 10:34 PM EST 10/11/2024 11:07 PM EST Smith Quan MD LAB URINE ORDERABLES Final Result Performing Organization Address [facility] Co de Phone Number [facility] [address] [place] [address], [place] [phone] * Culture urine (10/11/2024 10:34 PM EST) Pathologist [facility] Culture, Urine No growth 10/13/2024 10:54 AM [facility] Urine Urine specimen obtained by clean catch procedure / Unknown Non-blood Collection / Unknown 10/11/2024 10:34 PM EST 10/11/2024 11:52 PM EST Smith Quan MD LAB MICROBIOLOGY - GENERAL ORDERABLES Final Result Performing Organization Address [facility]/ZIP Co de Phone Number [facility] [address] [place] [address], [place] [phone] from Last 3 Months Insurance , [address] [place] [address] [employer] MED[employer] Member Subscriber Plan / Payer (Ef fective 2023-Present) Name:Bobby Velasco Relation to Subscriber:Self Name:Bobby Velasco Payer ID:[id number] Group ID:[id number] Type:Not on file Address: [place] [address] [address] Care Teams Mover Relationship Specialty Start Date End Date Ashley Frankel MD [address] [place] [address] PCP - General Family Medicine 08/09/24
--- OUTSIDE RECORDS SUMMARY | 2024-11-19 12:58 | XMS_ITS | Encounter Summary ---
Author Organization [employer] Address [address] [facility] 7t [place] [address] Care Team Providers Care Camera Technician Name Role Phone Ashley Frankel MD Primary Care Provider [phone]- [phone] Hoang November Unavailable Kishore Dorsey MD Unavailable [phone] Raheel Gee Unavailable [phone] Riya Fulton Unavailable Sergio Hackett Unavailable [...] [facility] ADULT D[facility] [address] [place] [address] Jackie Peacock 01/23/2025 9:45 AM EDT Office Visit [facility] MEDICINE [address] [place] [address] Ashley Frankel MD [address] [place] [address] documented as of this encounter Procedures Procedure Name Priority Date/Time Associated Diagnosis Comments CULTURE, URINE, ROUTINE Routine 10/31/2024 7:59 AM EST documented in this encounter Results * Culture, Urine, Routine (10/31/2024 7:59 AM EST) Urine Urine specimen obtained by clean catch procedure / Unknown 10/31/2024 7:59 AM EST 10/31/2024 5:58 PM EST Comment:[facility] Narrative [facility] - 11/02/2024 10:45 AM EST Urine Culture No growth. Specimen Source: Urine clean catch us Generic External Data Provider LAB MICROBIOLOGY - GENERAL ORDERABLES Final Result [facility] [address] [place] [address] [phone] documented in this encounter Visit Diagnoses Not on filedocumented in this encounter Additional Health Concerns Assessment Noted Time PHQ-9 Depression Total Score: 0 07/17/20 10:33 AM EST documented as of this encounter Care Teams Camera Technician Relationship Specialty Start Date End Date Ashley Frankel MD [address] [place] [address] PCP - General Family Medicine 08/28/[address] [place] [address] Gastroenterology 07/17/24 Kishore Dorsey MD [address] [place] [address] Urology 07/17/24 Raheel Gee [address] [place], [place] [address] Pulmonary Disease 07/17/24 Riya Fulton [address] [address] Cardiology 07/17/24 Sergio Hackett [address] [place] [address] Orthopaedic Surgery 07/17/24 Dominga Silva PharmD [address] [place] [address] Pharmacist Internal Medicine 07/22/24 De. [facility] Psychiatry 10/10/24 documented as of this encounter
--- OUTSIDE RECORDS SUMMARY | 2024-11-19 12:58 | XMS_ITS | Encounter Summary ---
Author Organization [employer] Address [address] [facility] 7t [place] [address] Care Team Providers Care Physician In Private Practice Name Role Phone Ashley Frankel MD Primary Care Provider [phone] Viktor November Unavailable Kishore Dorsey MD Unavailable Raheel Gee Unavailable [phone] Riya Fulton Unavailable Sergio Hackett Unavailable Unavailable Dominga Silva PharmD Unavailable Reason for Visit * Reason Comments Med Change Request Encounter Details Date Type Department Care Team (Late st Contact Info) Description 07/12/2023 Refill [facility] [address] [place], [place] [phone] Ashley Frankel MD [address] [place], [place] [phone] Social History Tobacco Use Types Packs/Day Years [...] Description 12/09/2024 8:00 AM EDT Office Visit [facility]ULT D[facility] [address] [place] [address] Jackie Peacock 01/23/2025 9:45 AM EDT Office Visit [facility] [address] [place] [address] Ashley Frankel MD [address] [place] [address] documented as of this encounter Visit Diagnoses Not on filedocumented in this encounter Care Teams Physician In Private Practice Relationship Specialty Start Date End Date Ashley Frankel MD [address] [place] [address] PCP - General Family Medicine 08/28/18November [address]rd [place] [address] Gastroenterology 07/17/24 Kishore Dorsey MD [address] [place] [address] Urology 07/17/24 Raheel Gee 5 [place] 10[address] Pulmonary Disease 07/17/24 Riya Fulton 11 [facility] 3rd [place] [address] Cardiology 07/17/24 Sergio Hackett [address] [facility] [address] [place] [address] Orthopaedic Surgery 07/17/24 Dominga Silva, Mehrdad [address] [place] [address] Pharmacist Internal Medicine 07/22/24 De[facility] Psychiatry 10/10/24 documented as of this encounter
--- OUTSIDE RECORDS SUMMARY | 2024-11-19 12:58 | XMS_ITS | Encounter Summary ---
Author Organization [employer] Address [address] [place] [address] 7t [place] [address] Care Team Providers Care 911 Telecommunicator Name Role Phone Ashley Frankel MD Primary Care Provider [phone] Viktor Sonya Unavailable Kishore Dorsey MD Unavailable [phone] Raheel Gee Unavailable [phone] Riya Fulton Unavailable Sergio Hackett Unavailable Unavailable Dominga Silva PharmD Unavailable Encounter Details Date Type Department Care Team (Latest Contact Info) Description 07/04/2019 Abstract [facility] CONVERSIONS Dental, Provider, DDS Social History [...] Description 12/09/2024 8:00 AM EDT Office Visit [facility] ADULT DENTAL [address] [place], [place] [phone] Jackie Peacock 01/23/2025 9:45 AM EDT Office Visit [facility] MED[facility]INE [address] [place] [address] Ashley Frankel MD [address] [place], [place] [phone] documented as of this encounter Visit Diagnoses Not on filedocumented in this encounter Care Teams 911 Telecommunicator Relationship Specialty Start Date End Date Ashley Frankel MD [address] [place] [address] PCP - General Family Medicine 08/28/18 Viktor Sonya [address] 3rd [place] [address] Gastroenterology 07/17/24 Kishore Dorsey MD [address] [place] [address] Urology 07/17/24 Raheel Gee 5 [place], [place] 10[address] Pulmonary Disease 07/17/24 Riya Fulton 11 [facility] 3rd [place] [address] Cardiology 07/17/24 Sergio Hackett [address] [place] [address] Orthopaedic Surgery 07/17/24 Dominga Silva, Mehrdad [address] [place] [address] Pharmacist Internal Medicine 07/22/24 Norm. [facility] Psychiatry 10/10/24 documented as of this encounter
--- OUTSIDE RECORDS SUMMARY | 2024-11-19 12:58 | XMS_ITS | Encounter Summary ---
Author Organization [employer] Address [address] [place] [address] 7t [place] [address] Care Team Providers Care Rn Clinical Name Role Phone Ashley Frankel MD Primary Care Provider [phone] Viktor November Unavailable Kishore Dorsey MD Unavailable Raheel Gee Unavailable [phone] Riya Fulton Unavailable Sergio Hackett Unavailable Unavailable Dominga Silva PharmD Unavailable Reason for Visit * Reason Onset Date Comments Appointment Request 08/05/2024 Encounter Details Date Type Department Care Team (Late st Contact Info) Description 08/05/2024 Telephone [facility] MEDICINE [address] [place] [address] Ashley Frankel MD [address] [place] [address] Appointment Request Social History Tobacco [...] the past 12 months, has t he [employer], gas, oil or water company threatened to [...] 8:00 AM EDT Office Visit [facility] ADULT DENTAL [address] [place] [address] Jackie Peacock 01/23/2025 9:45 AM EDT Office Visit [facility] MED[facility]INE [address] [place] [address] Ashley Frankel MD [address] [place] [address] documented as of this encounter Visit Diagnoses Not on filedocumented in this encounter Additional Health Concerns Assessment Noted Time PHQ-9 Depression Total Score: 0 07/17/20 10:33 AM EST documented as of this encounter Care Teams Rn Clinical Relationship Specialty Start Date End Date Ashley Frankel MD [address] [place] [address] PCP - General Family Medicine 08/28/18 Sonya Hoang [address] [place] [address] Gastroenterology 07/17/24 Kishore Dorsey MD [address] [place] [address] Urology 07/17/24 Raheel Gee 5 [place], [place] 10[address] Pulmonary Disease 07/17/24 Riya Fulton 11 [facility] 3rd [place] [address] Cardiology 07/17/24 Sergio Hackett [address] [place] [address] Orthopaedic Surgery 07/17/24 Dominga Silva, Mehrdad [address] [place] [address] Pharmacist Internal Medicine 07/22/24 [facility] Psychiat[facility] 10/10/24 documented as of this encounter
--- OUTSIDE RECORDS SUMMARY | 2024-11-19 12:58 | XMS_ITS | Encounter Summary ---
Author Organization [employer] Address [address] [place] [address] 7t [place] [address] Care Team Providers Care Bathhouse Attendant Name Role Phone Ashley Frankel MD Primary Care Provider [phone] Viktor Sonya Unavailable Kishore Dorsey MD Unavailable Raheel Gee Unavailable [phone] Riya Fulton Unavailable Sergio Hackett Unavailable Unavailable Dominga Silva PharmD Unavailable Encounter Details Date Type Department Care Team (Latest Contact Info) Description 06/08/2022 Abstract [facility] CONVERSIONS Dental, Provider, DDS Social [...] Description 12/09/2024 8:00 AM EDT Office Visit [facility] ADULT DENTAL [address] [place], [place] [phone] Jackie Peacock 01/23/2025 9:45 AM EDT Office Visit [facility] MEDICINE [address] [place] [address] Ashley Frankel MD [address] [place], [place] [phone] documented as of this encounter Visit Diagnoses Not on filedocumented in this encounter Care Teams Bathhouse Attendant Relationship Specialty Start Date End Date Ashley Frankel MD [address] [place] [address] PCP - General Family Medicine 08/28/18 Viktor November [address] 3rd [place] [address] Gastroenterology 07/17/24 Kishore Dorsey MD [address] [place] [address] Urology 07/17/24 Raheel Gee 5 [place], [place] [address] Pulmonary Disease 07/17/24 Riya Fulton 11 [facility] [address] [place] [address] Cardiology 07/17/24 Sergoi Hackett [address] [place] [address] Orthopaedic Surgery 07/17/24 Dominga Silva PharmD [address] [place] [address] Pharmacist Internal Medicine 07/22/24 Norm[facility] Psychiatry 10/10/24 documented as of this encounter
--- OUTSIDE RECORDS SUMMARY | 2024-11-19 12:58 | XMS_ITS | Encounter Summary ---
Author Organization [employer] Address 75 [facility] 7t [place] [address] Care Team Providers Care Grand Scribe Name Role Phone Ashley Frankel MD Primary Care Provider [phone] Viktor November Unavailable Kishore Dorsey MD Unavailable Raheel Gee Unavailable [phone] Riya Fulton Unavailable Sergio Hackett Unavailable Unavailable Dominga Silva PharmD Unavailable [phone] Encounter Details Date Type Department Care Team (Late st Contact Info) Description 10/17/2024 Telephone [facility] MEDICINE [address] [place], [place] [phone] Ashley Frankel MD [address] [place], [place] [phone] Social History Tobacco Use Types Packs/Day Years [...] Description 12/09/2024 8:00 AM EDT Office Visit [facility] ADULT DENTAL [address] [place] [address] Jackie Peacock 01/23/2025 9:45 AM EDT Office Visit [facility] MEDICINE [address] [place] [address] Ashley Frankel MD [address] [place] [address] documented as of this encounter Visit Diagnoses Not on filedocumented in this encounter Additional Health Concerns Assessment Noted Time PHQ-9 Depression Total Score: 0 07/17/20 24 10:33 AM EST documented as of this encounter Care Teams Grand Scribe Relationship Specialty Start Date End Date Ashley Frankel MD [address] [place] [address] PCP - General Family Medicine 08/28/18HoangNovember [address] [place] [address] Drive 3rd [place] [address] Gastroenterology 07/17/24 Kishore Dorsey MD [address] [place] [address] Urology 07/17/24 Raheel Gee 5 [place] 10[address] Pulmonary Disease 07/17/24 Riya Fulton [address] 3rd [place] [address] Cardiology 07/17/24 Sergio Hackett 300 [facility] 2nd [place] [address] Orthopaedic Surgery 07/17/24 Dominga Silva, AnanthD [address] [place] [address] Pharmacist Internal Medicine 07/22/24 De[facility] Psychiat[facility] 10/10/24 documented as of this encounter
--- OUTSIDE RECORDS SUMMARY | 2024-11-19 12:58 | XMS_ITS | Encounter Summary ---
Author Organization [employer] Address [address] [place] [address] 7[address] [place] [address] Care Team Providers Care Ophthalmic Surgeon Name Role Phone Ashley Frankel MD Primary Care Provider [phone] Viktor November Unavailable Kishore Dorsey MD Unavailable Raheel Gee Unavailable [phone] Riya Fulton Unavailable Sergio Hackett Unavailable Unavailable Dominga Silva PharmD Unavailable Encounter Details Date Type Department Care Team (Late st Contact Info) Description 09/13/2022 Abstract [facility] [address] [place] [address] Ashley Frankel MD [address] [place] [address] Social History Tobacco Use Types Packs/Day Years [...] Description 12/09/2024 8:00 AM EDT Office Visit [facility] [address] [place] [address] Jackie Peacock 01/23/2025 9:45 AM EDT Office Visit [facility] [address] [place] [address] Ashley Frankel MD [address] [place] [address] documented as of this encounter Procedures Procedure Name Priority Date/Time Associated Diagnosis Comments COLONOSCOPY Routine 09/06/2012 documented in this encounter Results * Colonoscopy (09/06/2012) [facility] Signature Colonoscopy normal with Dr. Barrera us Historical Provider HEALTH MAINTENANCE Final Result documented in this encounter Visit Diagnoses Not on filedocumented in this encounter Care Teams Ophthalmic Surgeon Relationship Specialty Start Date End Date Ashley Frankel MD [address] [place] [address] PCP - General Family Medicine 08/28/18November 11 [address] [facility] [address] [place] [address] Gastroenterology 07/17/24 Kishore Dorsey MD [address] [place] [address] Urology 07/17/24 Raheel Gee [address] [place], [place] [address] Pulmonary Disease 07/17/24 Riya Fulton [address] [place] [address] Cardiology 07/17/24 Sergio Hackett [address] [place] [address] Orthopaedic Surgery 07/17/24 Dominga Silva PharmD [address] [place] [address] Pharmacist Internal Medicine 07/22/24 Norm[facility] Psychiatry 10/10/24 documented as of this encounter
--- OUTSIDE RECORDS SUMMARY | 2024-11-19 12:58 | XMS_ITS | Encounter Summary ---
Author Organization [employer] Address [address] [facility] 7t [place] [address] Care Team Providers Care Senior Pensions Administrator Name Role Phone Ashley Frankel MD Primary Care Provider [phone] Viktor November Unavailable Kishore Dorsey MD Unavailable [phone] Raheel Gee Unavailable [phone] Riya Fulton Unavailable Sergio Hackett Unavailable Unavailable Dominga SilvaD Unavailable Reason for Visit * Reason Comments Back Pain Encounter Details Date Type Department Care Team (Late st Contact Info) Description 10/26/2024 9:20 AM EST Office Visit [facility] [address] [place] [address] [phone] Bryan Coleman MD [address] [place], [place] [phone] Acute right-sided low back pain with bilateral [...] 59 y.o. male who presents to Monday [facility] due to right lower back pain and [...] daily prn constipation Patient presents to Monday [facility] due to right lower back pain and [...] Visit [facility] [address] [place] [address] Jackie Peacock 01/23/2025 9:45 AM EDT Office Visit [facility] [address] [place] [address] Ashley Frankel MD [address] [place] [address] Scheduled Orders Name Type Priority Associated Diagnoses [...] as of this encounter Care Teams Senior Pensions Administrator Relationship Specialty Start Date End Date Ashley Frankel MD [address] [place] [address] PCP - General Family Medicine 08/28/[address] 3rd [place] [address] Gastroenterology 07/17/24 Kishore Dorsey MD [address] [place] [address] Urology 07/17/24 Raheel Gee 5 [place], [place] [address] Pulmonary Disease 07/17/24 Riya Fulton 11 [facility] [address]rd [place] [address] Cardiology 07/17/24 Sergio Hackett [address] [place] [address] Orthopaedic Surgery 07/17/24 Dominga Silva, AnanthD [address] [place] [address] Pharmacist Internal Medicine 07/22/24 De. [facility] Psychiatry 10/10/24 documented as of this encounter
--- OUTSIDE RECORDS SUMMARY | 2024-11-19 12:58 | XMS_ITS | Encounter Summary ---
Author Organization [employer] Address [address] [facility] 7t [place] [address] Care Team Providers Care Keg Raiser Name Role Phone Ashley Frankel MD Primary Care Provider [phone] Hoang, November Unavailable Kishore Dorsey MD Unavailable [phone] Raheel Gee Unavailable [phone] Riya Fulton Unavailable Sergio Hackett Unavailable Unavailable Dominga Silva PharmD Unavailable [phone] Encounter Details Date Type Department Care Team (Late st Contact Info) Description 07/18/2023 Telephone [facility] [address] [place], [place] [phone] Ashley Frankel MD [address] [place], [place] [phone] Social History Tobacco Use Types Packs/Day Years [...] Bia Rose - 08/10/2023 1:42 PM EST [employer] called pt to request verification of insurance/Medicare [...] Visit [facility]ULT [facility] [address] [place] [address] Jackie Peacock 01/23/2025 9:45 AM EDT Office Visit [facility] [address] [place] [address] Ashley Frankel MD [address] [place] [address] documented as of this encounter Visit Diagnoses Not on filedocumented in this encounter Care Teams Keg Raiser Relationship Specialty Start Date End Date Ashley Frankel MD [address] [place] [address] PCP - General Family Medicine 08/28/18 Sonya Hoang [address]rd [place] [address] Gastroenterology 07/17/24 Kishore Dorsey MD [address] [place] [address] Urology 07/17/24 Raheel Gee 5 [place], [place] [address] Pulmonary Disease 07/17/24 Riya Fulton 11 [facility] [address] [place] [address] Cardiology 07/17/24 Sergio Hackett [address] [place] [address] Orthopaedic Surgery 07/17/24 Dominga Silva, AnanthD [address] [place] [address] Pharmacist Internal Medicine 07/22/24 [facility] Psychiatry 10/10/24 documented as of this encounter
--- OUTSIDE RECORDS SUMMARY | 2024-11-19 12:58 | XMS_ITS | Clinical Summary ---
Author Organization [facility] Address [address] [place] [address] 7 [place] [address] Care Team Providers Care Newspaper Or Periodical Editor Name Role Phone Ashley Frankel MD Primary Care Provider [phone] Hoang, November Unavailable Kishore Dorsey MD Unavailable [phone] Raheel Gee Unavailable [phone] Riya Fulton Unavailable Sergio Hackett Unavailable [...] complication, without long-term current use of insulin (CMS/[facility]) 1 each by Other route 2 [...] migh t be different from the original. [facility] Sterile Processing Technician: Kamila, member services number [phone], provider services line, , option 4 [employer] Technician Agency: refused services Problem Noted Date [...] Removal 2021. New found mass on left jewish. - Referred to Plastic Surgery 07/16/24 Assessment & Plan (07/17/2024 10:23 AM EST): Removal 2021. New found mass on left jewish. - Referred to Plastic Surgery 07/16/24 Cardiac [...] hyperplasia with urinary obstru ction 04/27/2023 Overview (11/19/2024): -Followed by urology, Dr. Dorsey, seen 11/15/24, cystoscopy done, continue terazosin Hard of hearing 04/27/2023 History of Clostridioides [...] due after 07/17/25 -eye care facilitated by [facility] -dental home is [facility] -health care proxy paperwork given 11/13/2023, given again 07/17/24 Assessment & Plan (07/17/2024 10:32 AM EST): -next physical exam due after 07/17/25 -eye care facilitated by [facility] -dental home is [facility] -health care proxy paperwork given 11/13/2023, given again 07/17/24 Assessment & Plan (11/13/2023 10:07 AM EDT): -next physical exam due after 04/27/2024 -eye care facilitated by [facility] -dental home is [facility] -health care proxy paperwork given 11/13/2023 Assessment & Plan (04/27/2023 9:45 AM EDT): -next physical exam due after 04/27/2024. -eye care facilitated by [facility], last visit 01/16/2023 -dental home is [facility] Class 1 obesity 02/24/2023 Erectile dysfunction [...] the strong evidence that these meds prevent KS/CVA. Continue atorvastatin 80qhs. Encouraged to take. Anxiety [...] CT May 2021 -CT 01/24/24 ordered by commercial credit lead Dr. Raheel Gee MD, redemonstration of innumerable [...] getting tx for his neck. -Followed by [facility]. -Saw Dr. Evin Bhat at [facility] 02/2021 -referred to orthopedic on 11/13/2023 - [...] getting tx for his neck. -Followed by [facility]. -Saw Dr. Evin Bhat at [facility] 02/2021 -referred to orthopedic on 11/13/2023 - [...] getting tx for his neck. -Followed by [facility]. -Saw Dr. Evin Bhat at [facility] 02/2021 -referred to orthopedic on 11/13/2023 Assessment [...] getting tx for his neck. Followed by [facility]. Saw Dr. Evin Bhat at [facility] 02/2021 Assessment & Plan (04/27/2023 9:22 AM [...] getting tx for his neck. Followed by [facility]. Saw Dr. Evin Bhat at [facility] 02/2021 Assessment & Plan (11/07/2022 11:31 AM [...] getting tx for his neck. Followed by [facility]. [facility] Dr[facility] Evin Bhat at [facility] 02/2021 Mild intermittent asthma 10/14/2021 Overview (08/21/2024): -Followed by Dr. Raheel Gee at [facility]. Note from 08/19/24 reviewed -Well [...] right ureteroscopy laser lithotripsy stent insertion, 6 Latvian by [address] Mayda Rodriguez. [...] DEPARTMENT Provider, Generic External Data 11/08/[address] [address] Ashley Frankel MD 10/31/2024 Orders Only GENERIC EXTERNAL DATA DEPARTMENT Provider, Generic External Data 10/28/2024 Telephone [facility] [address] [place] [address] Ashley Frankel MD 10/26/2024 9:20 AM EST Office Visit [facility] [address] [address] Bryan Coleman MD Acute right-sided low back pain with bilateral sciatica (Primary Dx); Nephrolithiasis; Constipation, unspecified constipation type 10/26/2024 Orders Only [facility] [address] [place] [address] Bryan Coleman MD 10/24/2024 9:15 AM EST Office Visit [address] [address] Ashley Frankel MD Primary hypertension (Primary Dx); Weight loss, non-intentional; 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 ([facility]); Overweight; Dietary counseling; Exercise counseling; Dyslipidemia; Type 2 diabetes mellitus without complication, without long-term current use of insulin ([facility]); Pulmonary nodules 10/24/2024 Orders Only [facility] External Provider, [facility] 10/24/2024 Travel 10/17/[address] [address] Ashley Frankel MD 10/17/[address] [address] Ashley Frankel MD chartprep 10/10/2024 1:40 PM EST Office Visit [facility] [address] [address] Ashley Frankel MD Dysuria (Primary Dx); Dyslipidemia; Gastroesophageal reflux disease, unspecified whether esophagitis present; Benign prostatic hyperplasia with urinary obstruction; Anxiety 10/10/2024 Telephone [facility] [address] [address] Ashley Frankel MD 10/10/2024 Orders Only GENERIC EXTERNAL DATA DEPARTMENT Provider, Generic External Data 10/07/2024 Telephone [facility] [address] [place] [address] Ashley Frankel MD Nurse Triage 09/30/[address] [address] Aurora Alexandre, RN Results 09/30/2024 Orders Only [address] [address] Ashley Frankel MD Renal calculi (Primary Dx); Hydronephrosis, unspecified hydronephrosis type 09/28/2024 11:00 AM EST Office Visit [address] [address] Les Hay MD Constipation, unspecified constipation type (Primary Dx); Primary hypertension 09/28/2024 Travel 09/27/2024 11:00 AM EST Office Visit [address] [address] Malika Mac MD Other microscopic hematuria (Primary Dx); Acute bilateral low back pain without sciatica 09/27/[address] [address] Ashley Frankel MD Nurse Triage 09/18/[address] [address] Nisha Smith MD Allergic rhinitis, unspecified seasonality, unspecified trigger 09/17/[address] [address] Ashley Frankel MD 09/09/2024 Orders Only [facility] External Provider, [facility] Renal calculi (Primary Dx) 08/26/[address] [address] Ashley Frankel MD from Last 3 Months [...] Description 12/09/2024 8:00 AM EDT Office Visit [facility] [address] [place] [address] Jackie Peacock 01/23/2025 9:45 AM EDT Office Visit [facility] [address] [place] [address] Ashley Frankel MD [address] [place] [address] Health Maintenance Due Date Last Done Comments [...] Blood Count 5.2 4.8 - 10.8 X10*3/uL [facility] Red Blood Count 4.14(L) 4.60 - 5.80 X10*6/uL [facility] Hemoglobin 12.9(L) 14.0 - 18.0 g/dl [facility] Hematocrit 36.8(L) 42.0 - 52.0 % [facility] Mean Corpuscular Volume 88.9 80.0 - 98.0 fL [facility] Mean Corpuscular Hemoglobin 31.2 27.0 - 33.0 pg [facility] Mean Corpuscular HGB Conc 35.1 31.0 - 36.0 g/dl [facility] Red Cell Distribution Width 12.4 11.0 - 16.0 % [facility] Platelet Count 230 160 - 400 X10*3/uL [facility] Mean Platelet Volume 10.2 9.4 - 12.4 fL [facility] Neutrophils Percent Auto 60.6 45 - 73 % [facility] Imm Gran Pct Auto 0.4 0.0 - 0.4 % [facility] Lymphocytes Percent Auto 25.6 20 - 40 % [facility] Monocytes Percent Auto 11.7(H) 2 - 11 % [facility] Eosinophils Percent Auto 1.1 0 - 4 % [facility] Basophils Percent Auto 0.6 0 - 2 % [facility] NRBC Pct Auto 0.0 0.0 - 0.2 /100WBC [facility] Neutrophils Absolute Auto 3.2 2.0 - 8.3 x10*3/uL [facility] Imm Gran Abs Auto 0.02 0.00 - 0.03 X10*3/uL [facility] Lymphocytes Absolute Auto 1.3 1.2 - 4.9 X10*3/uL [facility] Monocytes Absolute Auto 0.6 0.1 - 1.2 X10*3/uL [facility] Eosinophils Absolute Auto 0.1 0.0 - 0.4 X10*3/uL [facility] Basophils Absolute Auto 0.0 0.0 - 0.2 X10*3/uL [facility] NRBC Abs Auto 0.000 0.0 - 0.012 X10*3/uL [facility] 11/12/2024 2:35 PM EDT 11/12/2024 2:39 PM EDT us Generic External Data Provider LAB BLOOD ORDERAB LES Final Result Performing Organization Address City/[facility]/ZIP Co de Phone Number [facility] [address] [place] [phone] * Magnesium (11/12/2024 2:35 PM EDT) Only the most recent of3 resultswithin the time period is included. Magnesium 2.0 1.6 - 2.6 mg/dL [facility] 11/12/2024 2:35 PM EDT 11/12/2024 2:39 PM EDT us Generic External Data Provider LAB BLOOD ORDERAB LES Final Result Performing Organization Address City/[facility]/ZIP Co de Phone Number [facility] [address] [place] [phone] * Lipase (11/12/2024 2:35 PM EDT) Only the most recent of4 resultswithin the time period is included. Lipase 22 8 - 78 U/L [facility] 11/12/2024 2:35 PM EDT 11/12/2024 2:39 PM EDT us Generic External Data Provider LAB BLOOD ORDERAB LES Final Result [facility] [address] [place] [address] [phone] * (ABNORMAL) Comprehensive Metabolic Panel (11/12/2024 2:35 PM EDT) Only the most recent of3 resultswithin the time period is included. Sodium 143 135 - 145 mmol/L [facility] Potassium 3.7 3.3 - 5.1 mmol/L [facility] Chloride 108 96 - 108 mmol/L [facility] Carbon Dioxide 28 22 - 29 mmol/L [facility] Anion Gap 11(L) 12 - 20 [facility] Urea Nitrogen (BUN) 18(H) 9 - 16 mg/dL [facility] Creatinine, Serum 1.00 0.5 - 1.4 mg/dL [facility] Creatinine Clr Calc Pharmacy 79.3 [facility] Comment:eGFR (calculated fro m the MDRD study equation) and eCrCl(calculated from the Cockcroft-Gault equation) are based ondifferent parameters and may not yield comparable results.If eCrCl result is absurd, please check patient'sheight/weight. Estimated Glomerular Filt Rate >60 [facility] Comment:Chronic Kidney Disea se: Estimated GFR < 60 mL/min/1.48v3Fapwxa Kidney Disease: Estimated GFR < 15 mL/min/1.73m2 Glucose 145(H) 60 - 115 mg/dL [facility] Calcium 9.5 8.4 - 10.2 mg/dL [facility] Bilirubin, Total 0.8 0.0 - 1.0 mg/dL [facility] Aspartate Amino Transferase 21 5 - 37 U/L [facility] Alanine Aminotransferase 12 0 - 40 U/L [facility] Total Protein 6.7 6.5 - 8.0 g/dL [facility] Albumin Level 3.9 3.5 - 5.0 g/dL [facility] Alkaline Phosphatase 92 39 - 117 U/L [facility] 11/12/2024 2:35 PM EDT 11/12/2024 2:39 PM EDT us Generic External Data Provider LAB BLOOD ORDERAB LES Final Result [facility] [address] [place] [address] [phone] * XR KUB and Upright 2 Views (11/12/2024 2:25 PM EDT) Anatomical Region Laterality Modality Radiographic Hannah ging 11/12/2024 2:25 PM EDT Narrative 11/12/2024 2:48 PM EDT ? [facility] ?[address] ?[place] [address] ?XRay Report ? Signed ? Patient: Krista,Bobby ?MR#: [id number] ? : 1965 ?Acct:[id number] ? Age/Sex: 59 / M ?ADM Date: 11/12/24 ? Loc: HO.ED ? Attending Dr: ? Ordering Physician: Nathalia Dorado ?? Date of Service: 11/12/24 ?? Procedure(s): XR KUB ?? Accession Number(s): [id number] ? cc: Ashley Frankel MD; Nathalia Dorado [...] 02:44 PM EDT ? Dictated By: ?George Oqeundo MD ? Signed By: ?<Electronically signed by George Oquendo MD in OV> ?11/12/24 1444 ? DD/ 1425 ? TD/TT: 11/12/24 1442 ? Clinical Nursing Director: ? Procedure Note Donjacobter, Image - 11/12/[address] [address] XRay Report Signed Patient: Pierce Velasco#: [id number] : 1965Acct:[id number] Age/Sex: 59 / MADM Date: 11/12/24 Loc: HO.ED Attending Dr: Ordering Physician: Nathalia Dorado Date of Service: 11/12/24 Procedure(s): XR KUB Accession Number(s): [id number] cc: Ashley Frankel MD; Nathalia Dorado EXAMINATION: [...] OV> 11/12/24 1444 DD/ TD/TT: 11/12/24 1442 Clinical Nursing Director: [facility] External Provider IMG XR PROCEDURES Final Result * Culture, Urine, Routine (10/31/2024 7:59 AM EST) Only the most recent of2 resultswithin the time period is included. Urine Urine specimen obtained by clean catch procedure / Unknown 10/31/2024 7:59 AM EST 10/31/2024 5:58 PM EST Comment:UACC Narrative [facility] - 11/02/2024 10:45 AM EST Urine Culture No growth. Specimen Source: Urine clean catch us Generic External Data Provider LAB MICROBIOLOGY - GENERAL ORDERABLES Final Result [facility] [address] [place] [phone] * (ABNORMAL) POCT urinalysis dipstick manually [...] HIGH SENSITIVITY 3.4 <3.5 - 35.0 ng/L [facility] Comment:The Schmidt high sens itivity Troponin-I results should beused in conjunction with other diagnostic information suchas ECG, clinical observations and information, and patientsymptoms to aid in the diagnosis of KS. 10/24/2024 4:58 PM EST 10/24/2024 5:02 PM EST us Generic External Data Provider LAB BLOOD ORDERAB LES Final Result Performing Organization Address [facility] Co de Phone Number [facility] [address] [place] [phone] * Partial Thromboplastin Time, Activated (APTT) (10/24/2024 2:30 PM EST) Partial Thromboplastin Time 35.7 26.0 - 36.8 SEC [facility] Comment:For information rega rding the monitoring of direct thrombininhibitors, please refer to Pharmacy. 10/24/2024 2:30 PM EST 10/24/2024 2:33 PM EST Generic External Data Provider LAB BLOOD ORDERAB LES Final Result Performing Organization Address [facility] Co de Phone Number [facility] [address] [place] [phone] * Prothrombin Time-INR (10/24/2024 2:30 PM EST) Only the most recent of2 resultswithin the time period is included. Prothrombin Time 10.9 10.9 - 12.4 SEC [facility] INTERNATIONAL NORM RATIO 0.9 0.9 - 1.1 [facility] Comment:INTERNATIONAL NORMAL IZED RATIO (INR) [...] ORDERAB LES Final Result Performing Organization Address [facility] de Phone Number [facility] [address] [place] [address] [phone] * B Type Natriuretic Peptide (BNP) (10/24/2024 2:30 PM EST) B Type Natriuretic Peptide 32 <100 pg/mL [facility] Comment:For those patients w ho are being treated with Natrecor(nesiritide, recombinant BNP), BNP testing should beperformed at least two hours post treatment in order toensure that only endogenous levels of BNP are detected. 10/24/2024 2:30 PM EST 10/24/2024 2:33 PM EST Generic External Data Provider LAB BLOOD ORDERAB LES Final Result Performing Organization Address [facility] de Phone Number [facility] [address] [place] [phone] * XR Chest 1 View (10/24/2024 1:22 PM EST) Anatomical Region Laterality Modality Chest Radiographic Hannah ging 10/24/2024 1:22 PM EST Narrative 10/24/2024 1:45 PM EST ? [facility] ?[address] ?[place] [address] ?XRay Report ? Signed ? Patient: Krista,Bobby ?MR#: [id number] ? : 1965 ?Acct:[id number] ? Age/Sex: 59 / M ?ADM Date: 10/24/ ? Loc: HO.ED ? Attending Dr: ? Ordering Physician: Alexy Yang ?? Date of Service: 10/24/24 ?? Procedure(s): XR chest 1V ?? Accession Number(s): [id number] ? cc: Alexy aYng; Ashley Frankel MD ? EXAMINATION: ?? XR [...] DD/ 1322 ? TD/TT: 10/24/24 1336 ? Clinical Nursing Director: ? Procedure Note Reshma, Image - 10/24/2024 [place] [address] XRay Report Signed Patient: Pierce Velasco#: [id number] : 1965Acct:[id number] Age/Sex: 59 / MADM Date: 10/24/24 Loc: HO.ED Attending Dr: Ordering Physician: Alexy Yang Date of Service: 10/24/24 Procedure(s): XR chest 1V Accession Number(s): [id number] cc: Alexy Yang; Ashley Frankel MD EXAMINATION: [...] 10/24/24 1342 DD/ 1322 TD/TT: 10/24/24 1336 Clinical Nursing Director: [facility] External Provider IMG XR PROCEDURES Final Result * Vitamin D, 25-Hydroxy, Total, Immunoassay (10/24/2024 9:22 AM EST) Vitamin D 25-OH Total 39.3 >30 ng/mL [facility] Comment:Health Based Referen ce Values*< 20 ng/mL [id number] ng/mL Insufficient> 30 ng/mL Sufficient*Colleen GILL. N [...] BLOOD ORDERABLES Final Result Performing Organization Address City/[facility]/ZIP Co de Phone Number [facility] [address] [place] [phone] * TSH W/Reflex to FT4 (10/24/2024 9:22 AM EST) TSH reflex Free T4 1.31 0.32 - 4.0 uIU/mL [facility] Blood Venous blood specimen / Unknown 10/24/2024 9:22 AM EST 10/24/2024 11:48 AM EST Ashley Frankel MD LAB BLOOD ORDERABLES Final Result [facility] [address] [place] [address] [phone] * HIV-1/2 Antigen and Antibodies, Fourth Generation, with Reflexes (10/24/2024 9:22 AM EST) HIV AB/AG Nonreactive Nonreactive [facility] Comment:HIV-1 p24 Ag and/or HIV-1/HIV-2 Ab not detected.A test result that is nonreactive does not exclude thepossibility of exposure to or infection with HIV-1 and/orHIV-2. Nonreactive results in this assay for individualswith prior exposure to HIV-1 and/or HIV-2 may be due toantigen and antibody levels that are below the limit ofdetection of this assay.The [employer] HIV Ag/Ab Combo assay result andsupplemental assay results should be interpreted inconjunction with the patient's clinical presentation,history and other laboratory results. If the results areinconsistent with clinical evidence, additional testing issuggested to confirm the result. Blood Venous blood specimen / Unknown 10/24/2024 9:22 AM EST 10/24/2024 11:48 AM EST Ashley Frankel MD LAB BLOOD ORDERABLES Final Result Performing Organization Address [facility] Co de Phone Number [facility] [address] [place] [phone] [phone] * Lactate Dehydrogenase (LD) (10/24/2024 9:22 AM EST) Lactate Dehydrogenase 248 118 - 273 U/L [facility] Blood Venous blood specimen / Unknown 10/24/2024 9:22 AM EST 10/24/2024 11:48 AM EST Ashley Frankel MD LAB BLOOD ORDERABLES Final Result Performing Organization Address [facility] Co de Phone Number [facility] [address] [place] [address] [phone] * FL Guidance in OR (10/01/2024 4:15 PM EST) Anatomical Region Laterality Modality X-Ray Angiograph y 10/01/2024 4:15 PM EST Narrative 10/02/2024 10:09 AM EST ? [facility] ?[address] ?[place] [address] ? Fluoroscopy Report ? Signed ? Patient: Krista,Bobby ?MR#: [id number] ? : 1965 ?Acct:[id number] ? Age/Sex: 59 / M ?ADM Date: 09/30/24 ? Loc: HO.S3 ?344-1 ? Attending Dr: Parveen Breen MD ? Ordering Physician: Mayda Rodriguez MD ?? Date of Service: 10/01/24 ?? Procedure(s): FL guidance in OR ?? Accession Number(s): [id number] ? cc: Mayda Rodriguez MD; Ashley Frankel [...] DD/ 1615 ? TD/TT: 10/01/24 1710 ? Clinical Nursing Director: ? Procedure Note Cesar Justice - 10/02/2024 [place] [address] [place] [address] Fluoroscopy Report Signed Patient: KristaPierce dinh#: [id number] : 1965Acct:[id number] Age/Sex: 59 / MADM Date: 09/30/24 Loc: .S3 344-[address]: Parveen Breen MD Ordering Physician: Mayda Rodriguez MD Date of Service: 10/01/24 Procedure(s): FL guidance in OR Accession Number(s): [id number] cc: Mayda Rodriguez MD; Ashley Frankel MD [...] 10/02/24 1006 DD/ 1615 TD/TT: 10/01/24 1710 Clinical Nursing Director: [facility] External Provider IMG IR PROCEDURES Edited Result - Final * (ABNORMAL) Urinalysis, Complete, with Reflex to Culture (09/30/2024 4:26 PM EST) Color Urine Yellow [facility] Appearance Urine Clear [facility] PH 5.5 5.0 - 9.0 [facility] Glucose Urine UA Negative Negative mg/dL [facility] Urine Blood Negative Negative [facility] Specific [place] - Urine <=1.005 1.005 - 1.025 [facility] Urine Protein Negative Neg-Trace mg/dL [facility] Urine Ketones Trace Negative mg/dL [facility] Nitrite Urine Negative Negative [facility] Leukocyte Esterase Urine Trace(A) Negative [facility] RBC Urine 0-2 0 - 2 /HPF [facility] Urine WBC 0-5 0 - 5 /HPF [facility] Urine Squamous Epithelial Cell 0-2 0 - 2 /HPF [facility] Urine Bacteria None Seen None Seen [facility] Hyaline Casts, Urine 0-2 0 - 2 /LPF [facility] 09/30/2024 4:26 PM EST 09/30/2024 4:29 PM EST Narrative [facility] - 09/30/2024 4:46 PM EST [id number], Clean Catch us Generic External Data Provider LAB URINE ORDERAB LES Final Result Performing Organization Address [facility] Co de Phone Number [facility] [address] [place] [phone] * Hepatic Function Panel (09/30/2024 4:26 PM EST) Only the most recent of2 resultswithin the time period is included. Bilirubin, Total 0.9 0.0 - 1.0 mg/dL [facility] Bilirubin, Direct 0.2 0.0 - 0.5 mg/dL [facility] Aspartate Amino Transferase 25 5 - 37 U/L [facility] Alanine Aminotransferase 12 0 - 40 U/L [facility] Total Protein 7.8 6.5 - 8.0 g/dL [facility] Albumin Level 4.5 3.5 - 5.0 g/dL [facility] Alkaline Phosphatase 94 39 - 117 U/L [facility] 09/30/2024 4:26 PM EST 09/30/2024 4:29 PM EST us Generic External Data Provider LAB BLOOD ORDERAB LES Final Result Performing Organization Address [facility] Co de Phone Number [facility] [address] [place] [phone] * (ABNORMAL) Basic Metabolic Panel (09/30/2024 4:26 PM EST) Only the most recent of2 resultswithin the time period is included. Sodium 141 135 - 145 mmol/L [facility] Potassium 3.6 3.3 - 5.1 mmol/L [facility] Chloride 108 96 - 108 mmol/L [facility] Carbon Dioxide 25 22 - 29 mmol/L [facility] Anion Gap 12 12 - 20 [facility] Urea Nitrogen (BUN) 14 9 - 16 mg/dL [facility] Creatinine, Serum 0.93 0.5 - 1.4 mg/dL [facility] Creatinine Clr Calc Pharmacy 85.6 [facility] Comment:eGFR (calculated fro m the MDRD study equation) and eCrCl(calculated from the Cockcroft-Gault equation) are based ondifferent parameters and may not yield comparable results.If eCrCl result is absurd, please check patient'sheight/weight. Estimated Glomerular Filt Rate >60 [facility] Comment:Chronic Kidney Disea se: Estimated GFR < 60 mL/min/1.16g6Ovlzrn Kidney Disease: Estimated GFR < 15 mL/min/1.73m2 Glucose 125(H) 60 - 115 mg/dL [facility] Calcium 9.6 8.4 - 10.2 mg/dL [facility] 09/30/2024 4:26 PM EST 09/30/2024 4:29 PM EST us Generic External Data Provider LAB BLOOD ORDERAB LES Final Result [facility] [address] [place] [address] [phone] * US Retroperitoneal Complete (09/30/2024 1:13 PM EST) Anatomical Region Laterality Modality Ultrasound 09/30/2024 1:13 PM EST Narrative 09/30/2024 1:13 PM EST ? [facility] ?[address] ?[place] [address] ? Ultrasound Report ? Signed ? Patient: Krista,Bobby ?MR#: [id number] ? : 1965 ?Acct:[id number] ? Age/Sex: 59 / M ?ADM Date: 09/30/24 ? Loc: HO.US ? Attending Dr: Malika Mac MD ? Ordering Physician: Malika Mac MD ?? Date of Service: 09/30/24 ?? Procedure(s): US retroperitoneal comp ?? Accession Number(s): [id number] ? cc: Ashley Frankel MD; Malika Mca MD ? CLINICAL HISTORY: MICROSCOPIC HEMATURIA,BILATERAL LOW [...] in OV> ? 09/30/24 1313 ? DD/ ? TD/TT: 09/30/243 ? Clinical Nursing Director: ? Procedure Note Cesar Justice - 09/30/[address] [address] Ultrasound Report Signed Patient: Pierce Velasco#: [id number] : 1965Acct:[id number] Age/Sex: 59 / MADM Date: 09/30/24 Loc: HO.US Attending Dr: Malika Mac MD Ordering Physician: Malika Mac MD Date of Service: 09/30/24 Procedure(s): US retroperitoneal comp Accession Number(s): [id number] cc: Ashley Frankel MD; Malika Mac MD [...] MD Signed By: <Electronically signed by Jong Almendarze MD in OV> 09/30/24 1313 DD/ 1313 TD/TT: 09/30/24 1313 Clinical Nursing Director: Malika Mac MD IMG US PROCEDURES Final Result * SARS-CoV-2 RNA, Influenza A/B, and RSV RNA, Ql NAAT (09/09/2024 11:01 AM EST) Influenza A PCR NEGATIVE Negative [facility] Influenza B PCR NEGATIVE Negative [facility] Resp Syncy Virus RNA Qual PCR NEGATIVE Negative [facility] SARS COV2 PCR NEGATIVE Negative [facility] Comment:All test results mus t [...] use by authorized laboratories.Testing performed on the [employer] GeneXpert utilizingreal-time RT-PCR.All SARS CoV2 and positive influenza A/B results arereported to [facility]. 09/09/2024 11:0 1 AM EST 09/09/2024 11:06 AM EST us Generic External Data Provider LAB MICROBIOLOGY - GENERAL ORDERABLES Final Result [facility] [address] [place] [address] [phone] * XR Chest 2 Views (09/09/2024 10:34 AM EST) Anatomical Region Laterality Modality Chest Radiographic Hannah ging 09/09/2024 10:3 4 AM EST Narrative 09/09/2024 11:06 AM EST ? [facility] ?[address] ?[place] [address] ?XRay Report ? Signed ? Patient: Bobby Velasco ?MR#: [id number] ? : 1965 ?Acct:[id number] ? Age/Sex: 59 / M ?ADM Date: 09/09/24 ? Loc: HO.ED ? Attending Dr: ? Ordering Physician: Deandra Reynolds DO ?? Date of Service: 09/09/24 ?? Procedure(s): XR chest 2V ?? Accession Number(s): [id number] ? cc: Ashley Frankel MD; Deandra Reynolds [...] DD/ 1034 ? TD/TT: 09/09/24 1045 ? Clinical Nursing Director: ? Procedure Note Donotjurgeninterpreter, Image - 09/09/[address] [address] XRay Report Signed Patient: Pierce Velasco#: [id number] : 1965Acct:[id number] Age/Sex: 59 / MADM Date: 09/09/24 Loc: .ED Attending Dr: Ordering Physician: Deandra Reynolds DO Date of Service: 09/09/24 Procedure(s): XR chest 2V Accession Number(s): [id number] cc: Ashley Frankel MD; Deandra Reynolds DO [...] 09/09/24 1103 DD/ 1034 TD/TT: 09/09/24 1045 Clinical Nursing Director: [facility] External Provider IMG XR PROCEDURES Edited Result - Final * Albumin, Random Urine W/Creatinine (08/13/2024 11:26 AM EST) Creatinine, Urine 73.67 mg/dL [facility] Microalbumin Urine 13.0 mg/L [facility] Microalbum Creatinine Ratio Ur 17.6 <30 ug/mg cr [facility] Comment:Albumin/Creatinine R atio Reference Ranges: Normal: < 30 ug/mg creatinine Microalbuminuria: 30 - 300 ug/mg creatinineClinical Albuminuria: > 300 ug/mg creatinine Urine 08/13/2024 11:2 6 AM EST 08/13/2024 1:00 PM EST Ashley Frankel MD LAB URINE ORDERABLES Final Result Performing Organization Address [facility] Co de Phone Number [facility] [address] [place] [phone] * (ABNORMAL) Hemoglobin A1c (08/13/2024 11:26 AM EST) Hemoglobin A1c 6.2(H) <6.0 % [facility] Comment:Hemoglobin A1C Refer ence Range Adults: 4.8 - 6.0 % Non diabetic: < 6.0 % Goal: < 7.0 %Additional Action Suggested: > 8.0 %Note: Hemoglobin A1c results are invalid for patients with abnormal amounts of HbF. Blood transfusions may impact the HbA1c concentration in the patient sample. Estimated Average Glucose 131 mg/dL [facility] Comment:eAG = Estimated ave rage glucose which is %A1C expressed asaverage glucose, using the formula of the V5M-KkeczmkSliomnd Glucose study (ADAG), Diabetes Care, Vol.31,#8,Mar. 2007 Blood Venous blood specimen / Unknown 08/13/2024 11:26 AM EST 08/13/2024 12:59 PM EST Ashley Frankel MD LAB BLOOD ORDERABLES Final Result Performing Organization Address [facility] Co de Phone Number [facility] [address] [place] [phone] * (ABNORMAL) Lipid Panel, Standard (08/13/2024 11:26 AM EST) Pathologist [facility] Triglycerides 86 <150 mg/dL [facility] Comment:Desirable Triglyceri de: less than 150 mg/dLBorderline High Triglyceride 150-199 mg/dLHigh Triglyceride: 200-499 mg/dLVery High Triglyceride: greater than or equal to 5OO mg/dL Cholesterol 146 <200 mg/dL [facility] Comment:Desirable Cholestero l: less than 200 mg/dLBorderline High Cholesterol: 200-239 mg/dLHigh Cholesterol: greater than 239 mg/dL LDL Cholesterol Calculated 96 <100 mg/dL [facility] Comment:Desirable LDL: less than 100 mg/dLNear Optimal/Above Optimal LDL: 110- 129 mg/dLBorderline High LDL: 130-159 mg/dLHigh LDL: 160-189 mg/dLVery High LDL: greater than or equal to 190 mg/dL HDL Cholesterol 33(L) >40 mg/dL [facility] Comment:Desirable HDL: great er than 40 mg/dL Note: This HDL assay may give artificially low results in patients with liver disease. Blood Venous blood specimen / Unknown 08/13/2024 11:26 AM EST 08/13/2024 12:59 PM EST Ashley Frankel MD LAB BLOOD ORDERABLES Final Result [facility] [address] [place] [phone] * Colonoscopy (04/06/2023) [facility] Colonoscopy Normal Normal Historical Provider HEALTH MAINTENANCE Final Result * Hepatitis C Antibody with Reflex to HCV, RNA, Quantitative, Real-Time PCR (11/11/2022 8:59 AM EDT) [facility] Hepatitis C Antibody NON-REACT KELSY NON-REACT KELSY [facility] [place] [employer] Index 0.64 <1.00 [facility] [place] [employer] Comment: HCV antibody was non-reactive. There is no laboratory evidence of HCV infection. In most cases, no further action is required. However, if recent HCV exposure is suspected, a test for HCV RNA (test code 45059) is suggested. For additional information please refer to http://education.[employer]/faq/IHO51i7 (This link is being provided for informational/ educational purposes only.) Blood Venous blood specimen / Unknown 11/11/2022 8:59 AM EDT 11/11/2022 8:59 AM EDT Narrative [facility] - 11/11/2022 9:36 PM EDT FASTING:YES FASTING: YES Ashley Frankel MD LAB BLOOD ORDERABLES Final Result [facility] [address], [place] [address] im[facility]em [facility] [address] [place] [address] from Last 3 Months or Most Recently Relevant to Health Maintenance [place] [address] [place] [address] - [facility] Care Teams Newspaper Or Periodical Editor Relationship Specialty Start Date End Date [place], MD Ashley [address] [place] [address] PCP - General Family Medicine 08/28/[address] [place] [address] Gastroenterology 07/17/24 Kishore Dorsey MD [address] [place] [address] Urology 07/17/24 Raheel Gee [address] [place] [address] Pulmonary Disease 07/17/24 Riya F[address]on [address] [place] [address] Cardiology 07/17/24 Sergio Hackett [address] [place] [address] Orthopaedic Surgery 07/17/24 Dominga Silva PharmD [address] [place] [address] Pharmacist Internal Medicine 07/22/24 [facility] 10/10/24
--- OUTSIDE RECORDS SUMMARY | 2024-11-19 12:58 | XMS_ITS | Encounter Summary ---
Author Organization [employer] Address [address] [facility] 7t [place] [address] Care Team Providers Care Decorating Supervisor Name Role Phone Ashley Frankel MD Primary Care Provider [phone] Hoang, November Unavailable Kishore Dorsey MD Unavailable [phone] Raheel Gee Unavailable [phone] Riya Fulton Unavailable Sergio Hackett Unavailable [...] [facility] [address] [place] [address] Jackie Peacock 01/23/2025 9:45 AM EDT Office Visit [facility] MED[facility] [address] [place] [address] Ashley Frankel MD [address] [place] [address] documented as of this encounter Visit Diagnoses Not on filedocumented in this encounter Additional Health Concerns Assessment Noted Time PHQ-9 Depression Total Score: 0 07/17/20 10:33 AM EST documented as of this encounter Care Teams Decorating Supervisor Relationship Specialty Start Date End Date Ashley Frankel MD [address] [place] [address] PCP - General Family Medicine 08/28/18November [address] 3rd [place] [address] Gastroenterology 07/17/24 Kishore Dorsey MD [address] [facility] [address] [place] [address] Urology 07/17/24 Raheel Gee 5 [place], [place] 10[address] Pulmonary Disease 07/17/24 Riya Fulton 11 [facility] 3rd [place] [address] Cardiology 07/17/24 Sergio Hackett [address] [place] [address] Orthopaedic Surgery 07/17/24 Dominga Silva, AnanthD [address] [place] [address] Pharmacist Internal Medicine 07/22/24 [facility] 10/10/24 documented as of this encounter
--- OUTSIDE RECORDS SUMMARY | 2024-11-19 12:58 | XMS_ITS | Encounter Summary ---
Author Organization [employer] Address 75 [facility] 7t [place] [address] Care Team Providers Care Contact Center Consultant Name Role Phone Ashley Frankel MD Primary Care Provider [phone] Hoang, November Unavailable Kishore Dorsey MD Unavailable [phone] Raheel Gee Unavailable [phone] Riya Fulton Unavailable Sergio Hackett Unavailable Unavailable Dominga Silva PharmD Unavailable Reason for Visit * Reason Comments Med Refill Encounter Details Date Type Department Care Team (Late st Contact Info) Description 07/24/2023 Refill [facility] [address] [place] [address] [facility] [address] [place], [place] [phone] Prostatitis, acute Social History Tobacco Use Types [...] Description 12/09/2024 8:00 AM EDT Office Visit [facility] ADULT [facility] [address] [place] [address] Jackie Peacock 01/23/2025 9:45 AM EDT Office Visit [facility] [address] [place] [address] Ashley Frankel MD [address] [place] [address] documented as of this encounter Visit Diagnoses Diagnosis Prostatitis, acute Acute prostatitis documented in this encounter Care Teams Contact Center Consultant Relationship Specialty Start Date End Date Ashley Frankel MD [address] [place] [address] PCP - General Family Medicine 08/28/18November [address] 3rd [place] [address] Gastroenterology 07/17/24 Kishore Dorsey MD [address] [place] [address] Urology 07/17/24 Raheel Gee 5 [place], [place] [address] Pulmonary Disease 07/17/24 Riya Fultno 11 [facility] 3rd [place] [address] Cardiology 07/17/24 Sergio Hackett [address] [place] [address] Orthopaedic Surgery 07/17/24 Dominga Silva, AnanthD [address] [place] [address] Pharmacist Internal Medicine 07/22/24 [facility] 10/10/24 documented as of this encounter
--- OUTSIDE RECORDS SUMMARY | 2024-11-19 12:58 | XMS_ITS | Encounter Summary ---
Author Organization [employer] Address 75 [facility] 7t [place] [address] Care Team Providers Care Mold Washer Name Role Phone Ashley Frankel MD Primary Care Provider [phone] Viktor November Unavailable Kishore Dorsey MD Unavailable [phone] Raheel Gee Unavailable [phone] Riya Fulton Unavailable Sergio Hackett Unavailable Unavailable Dominga SilvaD Unavailable Encounter Details Date Type Department Care Team (Late st Contact Info) Description 10/26/2024 Orders Only [facility] [address] [place], [place] [phone] Bryan Coleman MD [address] [place], [place] [phone] Social History Tobacco Use Types Packs/Day Years [...] Description 12/09/2024 8:00 AM EDT Office Visit [facility] ADULT DENTAL [address] [place] [address] Jackie Peacock 01/23/2025 9:45 AM EDT Office Visit [facility] MED[facility]INE [address] [place] [address] Ashley Frankel MD [address] [place] [address] documented as of this encounter Procedures Procedure Name Priority Date/Time Associated Diagnosis Comments CULTURE, URINE, ROUTINE Routine 10/26/2024 9:30 AM EST documented in this encounter Results * Culture, Urine, Routine (10/26/2024 9:30 AM EST) Urine Urine specimen obtained by clean catch procedure / Unknown 10/26/2024 9:30 AM EST 10/26/2024 2:18 PM EST Comment:[facility] - 10/28/2024 8:45 AM EST Urine Culture No growth. Specimen Source: Urine clean catch Bryan Coleman MD LAB MICROBIOLOGY - GENERAL ORDER MAN Final Result [facility] [address] [place] [address] [phone] documented in this encounter Visit Diagnoses Not on filedocumented in this encounter Additional Health Concerns Assessment Noted Time PHQ-9 Depression Total Score: 0 07/17/20 10:33 AM EST documented as of this encounter Care Teams Mold Washer Relationship Specialty Start Date End Date Ashley Frankel MD [address] [place] [address] PCP - General Family Medicine 08/28/18Hoang, November [address] [facility] 3rd [place] [address] Gastroenterology 07/17/24 Kishore Dorsey MD [address] [place] [address] Urology 07/17/24 Raheel Gee 5 [place], [place] [address] Pulmonary Disease 07/17/24 Riya Fulton 11 [facility] 3rd [place] [address] Cardiology 07/17/24 Sergio Hackett [address] [place] [address] Orthopaedic Surgery 07/17/24 Dominga Silva, AnanthD [address] [place] [address] Pharmacist Internal Medicine 07/22/24 [facility] 10/10/24 documented as of this encounter
--- OUTSIDE RECORDS SUMMARY | 2024-11-19 12:59 | XMS_ITS | Encounter Summary ---
Author Organization [employer] Address 75 [facility] 7t [place] [address] Care Team Providers Care Web Applications Architect Name Role Phone Ashley Frankel MD Primary Care Provider [phone] Hoang November Unavailable Kishore Dorsey MD Unavailable Raheel Gee Unavailable [phone] Riya Fulton Unavailable Sergio Hackett Unavailable Unavailable Dominga Silva PharmD Unavailable [phone] Encounter Details Date Type Department Care Team [...] Description 12/09/2024 8:00 AM EDT Office Visit [facility] ADULT D[facility]AL [address] [place] [address] Jackie Peacock 01/23/2025 9:45 AM EDT Office Visit [facility] [address] [place] [address] Ashley Frankel MD [address] [place] [address] documented as of this encounter Procedures Procedure [...] EDT) Lipase 22 8 - 78 U/L [facility] 11/12/2024 2:35 PM EDT 11/12/2024 2:39 PM EDT us Generic External Data Provider LAB BLOOD ORDERAB LES Final Result Performing Organization Address City/[facility]/ZIP Co de Phone Number [facility] [address] [place] [phone] * Magnesium (11/12/2024 2:35 PM EDT) Magnesium 2.0 1.6 - 2.6 mg/dL [facility] 11/12/2024 2:35 PM EDT 11/12/2024 2:39 PM EDT Generic External Data Provider LAB BLOOD ORDERAB LES Final Result Performing Organization Address [facility]/ZIP Co de Phone Number [facility] [address] [place] [address] [phone] * (ABNORMAL) Comprehensive Metabolic Panel (11/12/2024 2:35 PM EDT) Sodium 143 135 - 145 mmol/L [facility] Potassium 3.7 3.3 - 5.1 mmol/L [facility] Chloride 108 96 - 108 mmol/L [facility] Carbon Dioxide 28 22 - 29 mmol/L [facility] Anion Gap 11(L) 12 - 20 [facility] Urea Nitrogen (BUN) 18(H) 9 - 16 mg/dL [facility] Creatinine, Serum 1.00 0.5 - 1.4 mg/dL [facility] Creatinine Clr Calc Pharmacy 79.3 [facility] Comment:eGFR (calculated fro m the MDRD study equation) and eCrCl(calculated from the Cockcroft-Gault equation) are based ondifferent parameters and may not yield comparable results.If eCrCl result is absurd, please check patient'sheight/weight. Estimated Glomerular Filt Rate >60 [facility] Comment:Chronic Kidney Disea se: Estimated GFR < 60 mL/min/1.33u9Dwywni Kidney Disease: Estimated GFR < 15 mL/min/1.73m2 Glucose 145(H) 60 - 115 mg/dL [facility] Calcium 9.5 8.4 - 10.2 mg/dL [facility] Bilirubin, Total 0.8 0.0 - 1.0 mg/dL [facility] Aspartate Amino Transferase 21 5 - 37 U/L [facility] Alanine Aminotransferase 12 0 - 40 U/L [facility] Total Protein 6.7 6.5 - 8.0 g/dL [facility] Albumin Level 3.9 3.5 - 5.0 g/dL [facility] Alkaline Phosphatase 92 39 - 117 U/L [facility] 11/12/2024 2:35 PM EDT 11/12/2024 2:39 PM EDT us Generic External Data Provider LAB BLOOD ORDERAB LES Final Result [facility] [address] [place] [phone] * (ABNORMAL) CBC auto differential (11/12/2024 2:35 PM EDT) White Blood Count 5.2 4.8 - 10.8 X10*3/uL [facility] Red Blood Count 4.14(L) 4.60 - 5.80 X10*6/uL [facility] Hemoglobin 12.9(L) 14.0 - 18.0 g/dl [facility] Hematocrit 36.8(L) 42.0 - 52.0 % [facility] Mean Corpuscular Volume 88.9 80.0 - 98.0 fL [facility] Mean Corpuscular Hemoglobin 31.2 27.0 - 33.0 pg [facility] Mean Corpuscular HGB Conc 35.1 31.0 - 36.0 g/dl [facility] Red Cell Distribution Width 12.4 11.0 - 16.0 % [facility] Platelet Count 230 160 - 400 X10*3/uL [facility] Mean Platelet Volume 10.2 9.4 - 12.4 fL [facility] Neutrophils Percent Auto 60.6 45 - 73 % [facility] Imm Gran Pct Auto 0.4 0.0 - 0.4 % [facility] Lymphocytes Percent Auto 25.6 20 - 40 % [facility] Monocytes Percent Auto 11.7(H) 2 - 11 % [facility] Eosinophils Percent Auto 1.1 0 - 4 % [facility] Basophils Percent Auto 0.6 0 - 2 % [facility] NRBC Pct Auto 0.0 0.0 - 0.2 /100WBC [facility] Neutrophils Absolute Auto 3.2 2.0 - 8.3 x10*3/uL [facility] Imm Gran Abs Auto 0.02 0.00 - 0.03 X10*3/uL [facility] Lymphocytes Absolute Auto 1.3 1.2 - 4.9 X10*3/uL [facility] Monocytes Absolute Auto 0.6 0.1 - 1.2 X10*3/uL [facility] Eosinophils Absolute Auto 0.1 0.0 - 0.4 X10*3/uL [facility] Basophils Absolute Auto 0.0 0.0 - 0.2 X10*3/uL [facility] NRBC Abs Auto 0.000 0.0 - 0.012 X10*3/uL [facility] 11/12/2024 2:35 PM EDT 11/12/2024 2:39 PM EDT us Generic External Data Provider LAB BLOOD ORDERAB LES Final Result [facility] [address] [place] [phone] * XR KUB and Upright 2 Views (11/12/2024 2:25 PM EDT) Anatomical Region Laterality Modality Radiographic Hannah ging 11/12/2024 2:25 PM EDT Narrative 11/12/2024 2:48 PM EDT ? [facility] ?[address] ?[place] [address] ?XRay Report ? Signed ? Patient: Krista,Bobby ?MR#: [id number] ? : 1965 ?Acct:[id number] ? Age/Sex: 59 / M ?ADM Date: 11/12/24 ? Loc: HO.ED ? Attending Dr: ? Ordering Physician: Nathalia Dorado ?? Date of Service: 11/12/24 ?? Procedure(s): XR KUB ?? Accession Number(s): [id number] ? cc: Ashley Frankel MD; Nathalia Dorado [...] DD/ 1425 ? TD/TT: 11/12/24 1442 ? Grass Cutter: ? Procedure Note Cesar Justice - 11/12/[address] [address] XRay Report Signed Patient: Pierce Velasco#: [id number] : 1965Acct:[id number] Age/Sex: 59 / MADM Date: 11/12/24 Loc: HO.ED Attending Dr: Ordering Physician: Nathalia Dorado Date of Service: 11/12/24 Procedure(s): XR KUB Accession Number(s): [id number] cc: Ashley Frankel MD; Nathalia Dorado EXAMINATION: [...] 11/12/24 1444 DD/ 1425 TD/TT: 11/12/24 1442 Grass Cutter: [facility] External Provider IMG XR PROCEDURES Final Result documented in this encounter Visit Diagnoses Not on filedocumented in this encounter Additional Health Concerns Assessment Noted Time PHQ-9 Depression Total Score: 0 07/17/20 10:33 AM EST documented as of this encounter Care Teams Web Applications Architect Relationship Specialty Start Date End Date Ashley Frankel MD [address] [place] [address] PCP - General Family Medicine 08/28/18November [address] 3rd [place] [address] Gastroenterology 07/17/24 Kishore Dorsey MD [address] [place] [address] Urology 07/17/24 Raheel Gee 5 [place], [place] [address] Pulmonary Disease 07/17/24 Riya Fulton 11 [facility] 3rd [place] [address] Cardiology 07/17/24 Sergio Hackett [address] [facility] [address] [place] [address] Orthopaedic Surgery 07/17/24 Dominga Silva, Mehrdad [address] [place] [address] Pharmacist Internal Medicine 07/22/24 [facility] 10/10/24 documented as of this encounter
--- OUTSIDE RECORDS SUMMARY | 2024-11-19 12:59 | XMS_ITS | Encounter Summary ---
Author Organization [employer] Address [address] [place] [address] 7t [place] [address] Care Team Providers Care Peoplesoft Name Role Phone Ashley Frankel MD Primary Care Provider [phone] Viktor November Unavailable Kishore Dorsey MD Unavailable [phone] Raheel Gee Unavailable [phone] Riya Fulton Unavailable Sergio Hackett Unavailable Unavailable Dominga Silva PharmD Unavailable Encounter Details Date Type Department Care Team (Late st Contact Info) Description 02/01/2023 Telephone [facility] MEDICINE [address] [place], [place] [phone] Ashley Frankel MD [address] [place], [place] [phone] Social History Tobacco Use Types Packs/Day Years [...] 8:00 AM EDT Office Visit [facility] ADULT DENTAL [address] [place] [address] PeacockHerminio maynardsa 01/23/2025 9:45 AM EDT Office Visit [facility] MEDICINE [address] [place] [address] Ashlye Frankel MD [address] [place] [address] documented as of this encounter Visit Diagnoses Not on filedocumented in this encounter Care Teams Peoplesoft Relationship Specialty Start Date End Date Ashley Frankel MD [address] [place] [address] PCP - General Family Medicine 08/28/18 HoangNovember 11 [facility] [address] [place] [address] Gastroenterology 07/17/24 Kishore Dorsey MD 10 [facility] [address] [place] [address] Urology 07/17/24 Raheel Gee 5 [place], [place] [address] Pulmonary Disease 07/17/24 Riya Fulton [address] [address] Cardiology 07/17/24 Sergio Hackett [address] [place] [address] Orthopaedic Surgery 07/17/24 Dominga Silva, Mehrdad [address] [place] [address] Pharmacist Internal Medicine 07/22/24 De. [facility] Psychiatry 10/10/24 documented as of this encounter
--- OUTSIDE RECORDS SUMMARY | 2024-11-19 12:59 | XMS_ITS | Encounter Summary ---
Author Organization [facility] Address [address] [place] [address] [address] [place] [address] Care Team Providers Care Dinkey Engine Mechanic Name Role Phone Ashley Frankel MD Primary Care Provider [phone] Viktor November Unavailable Kishore Dorsey MD Unavailable Raheel Gee Unavailable [phone] Riya Fulton Unavailable Sergio Hackett Unavailable Unavailable Dominga Silva PharmD Unavailable Encounter Details Date Type Department Care Team (Late st Contact Info) Description 04/07/2023 Abstract [facility] MEDICINE [address] [place], [place] [phone] Ashley Frankel MD 230 [place], [place] [phone] Social History Tobacco Use Types Packs/Day Years [...] Description 12/09/2024 8:00 AM EDT Office Visit [facility] ADULT DENTAL [address] [place] [address] Jackie Peacock 01/23/2025 9:45 AM EDT Office Visit [facility] MEDICINE [address] [place] [address] Ashley Frankel MD 230 [place] [address] documented as of this encounter Procedures Procedure Name Priority Date/Time Associated Diagnosis Comments COLONOSCOPY Routine 04/06/2023 documented in this encounter Results * Colonoscopy (04/06/2023) Colonoscopy Normal Normal us Historical Provider [facility] Final Result documented in this encounter Visit Diagnoses Not on filedocumented in this encounter Care Teams Dinkey Engine Mechanic Relationship Specialty Start Date End Date Ashley Frankel MD 230 [place] [address] PCP - General Family Medicine 08/28/18November 11 [facility] [address] [place] [address] Gastroenterology 07/17/24 Kishore Dorsey MD 10 [facility] [address] [place] [address] Urology 07/17/24 Raheel Gee 5 [place], [place] 10[address] Pulmonary Disease 07/17/24 Riya Fulton 11 [facility] [address] [place] [address] Cardiology 07/17/24 Sergio Hackett [address] 2nd [place] [address] Orthopaedic Surgery 07/17/24 Dominga Silva, Mehrdad [address] [place] [address] Pharmacist Internal Medicine 07/22/24 De[facility] Psychiat[facility] 10/10/24 documented as of this encounter
== END 2024-11-19 11:09 | disposition home or self-care (01) ==
LOC: HO.HGI 10:43
PROVIDERS: PCP Family Medicine; Visit Provider Nurse Practitioner
DX: K59.00 Constipation, unspecified (principal); K21.9 Gastro-esophageal reflux disease without esophagitis; K62.5 Hemorrhage of anus and rectum
CPT/HCPCS: 99213

== ENCOUNTER 2024-11-19 15:25 | Outpatient (AMB) | payer OTHER, SELFPAY ==
[2024-11-19 15:40] VITALS: BP 160/82; PULSE 63; O2SAT 98; BMI 27.3
--- NOTE | 2024-11-19 15:40 | A.OFFVIS_ITS ---
Vital Signs 11/19/24 15:40 Height 5 ft 7 in Weight 174 lb 2.643 oz BMI 27.3 BP 160/82 H Blood Pressure Location Rt brachial Position Sitting Pulse 63 Pulse Source Pulse Oximeter Pulse Oximetry (%) 98 Oxygen Delivery Method Room Air Intake Visit Reasons: Asthma Allergies amoxicillin [AMOXICILLIN] Allergy (Severe, Verified 11/19/24 15:43) ANAPHYLAXIS Penicillins Allergy (Severe, Verified 11/19/24 15:43) UNKNOWN REACTION-CHILDHOOD doxycycline [From VIBRAMYCIN] Adverse Reaction (Mild, Verified 11/19/24 15:43) DIARRHEA Clindamycin HCl Allergy (Severe, Uncoded 11/19/24 09:10) Anaphylaxis HPI Comments Details: Pleasant 59-year-old gentleman who is here for follow-up. He has background history of atypical chest pain for which he underwent stress testing in the past with was normal. He also had echocardiography which did not show any significant pathology. He is presenting now for follow-up because he has been e xperiencing palpitations. These happen almost every night. When he is lying on his side he feels his heart is racing and he can feel the heartbeat in his ear. Sometimes it is fast. He is worried about AFib. He has no significant chest pains at this point. He did not take his blood pressure medications today. His blood pressure is elevated today. 09/25/2020 the patient has a telephone visit. He has been complaining of further nasal congestion and sinus tenderness. Moderate severity. Significant cough postnasal drip related. Has a hard time sleeping at nighttime because the discomfort. He did undergo a CT scan of the chest that was personally by me. Appears to have stable pulmonary nodules. Will continue monitoring the nodules on a yearly basis for couple years to ensure stability. Patient also needs to be followed up by ENT due to the fact that he has nasal polyposis and his nasal issue will continue to be recurrent and progressive. 08/02/2021 the patient is here for a pulmonary sick visit. Apparently he was evaluated about a week ago with nasal congestion and sinus discomfort. He was placed on azithromycin. he did have partial improvement of the symptoms. But still having sinus discomfort and fullness and discomfort. The drainage has decreased in amount. Patient does have significant swelling of the nasal passages. In the meantime he also underwent a CT scan of the chest around the same time because of the pulmonary nodules. At least I could review the images with him and reassured him that he does not have any active lower respiratory infection. His pulmonary nodules are indeed stable which is reassuring. He will require CT scan in a year's time. We will treat him again for this subacute sinusitis with the hope of improving his symptoms. 08/15/2022 the patient is here for a pulmonary follow-up visit. The patient is doing well from a respiratory status. He does have a cough intermittently. Usually associated with a postnasal drip. Moderate severity. He does have allergy medicines and also nasal sprays but he has not been using it. His major issue is the neck pain and now shoulder discomfort. He does have significant osteoarthritis of the left shoulder. Has a hard time turning his neck. From a respiratory standpoint he does have a rescue inhaler but he does not use it. Typically his asthma is exacerbated by a he respiratory illness. Denies any significant allergies. He does have underlying pulmonary nodules. The patient did have a repeat CAT scan about a week ago which we personally reviewed in the office. The patient does have stable pulmonary nodules at this time. There subcentimeter in size and do not appear concerning. Therefore, since the pulmonary nodules have been stable now for 2 years no further imaging studies warranted. Will reassess in a year to see additional studies have required if he is having any ongoing symptoms. 06/09/2023 the patient is here for a pulmonary follow-up visit. He is complaining about worsening nasal congestion. Moderate severity. Has a hard time breathing through his nose and has a postnasal drip. He attributes this to his rugs in the apartment. Feels like they are causing him to have significant worsening sinusitis and rhinitis in addition to his asthma. He is asking for the rugs to be removed. At this point we can just request allergy testing and see if he is allergic to any dust mites or any mold that could be in better in the rugs. If he does have underlying allergies then be reasonable to request replaced on the rugs otherwise patient could just use the HEPA filter vacuum. The patient is doing well from the asthma standpoint. He has not had to use his rescue inhaler. Although does have significant sinusitis at this time so therefore will treat him for the sinusitis at this time. 09/15/2023 the patient is here for a pulmonary follow-up visit. The patient has been having good and bad days. Complains of significant nasal congestion. He does have the history of nasal polyps. He feels like being his apartment with the rugs make his breathing much worse. He has a studio apartment. We did do the allergy testing although no significant allergies were noted. Still he is still very uncomfortable and complaining that the rugs are bothering him. I did provide him with a letter if they can be removed safely then that would be a good option. He will have to work with his landlord for that. In the meantime the patient continues with current respiratory therapy. His breathing has been stable. He is still dealing with significant neck discomfort. The patient also had a CT scan last done back in July 2022 demonstrating an 8 mm pulmonary nodule. Based on the size which go ahead and repeat a CT scan before the next visit. 02/09/2024 the patient is here for a pulmonary follow-up visit. He is complaining significant sinus congestion and pressure. His ears are plugged as well. He has a hard time with the nasal obstruction. His respiratory and nasal therapy has not been helpful. The patient having significant issues with allergies as well. Although, we have done allergy testing in the past and was really on inconclusive. He did have a CT scan of the chest which we personally reviewed demonstrating no significant change in the 8 mm pulmonary nodule she is reassuring. Although the CT scan has not been officially read yet. If the CT scans any different outlet no otherwise follow-up with a repeat CT scan in a year's time. 08/16/2024 the patient is here for a pulmonary follow-up visit. Started developing right-sided pleuritic discomfort. Moderate severity. He became very concerned and went to the ER. There he had a chest x-ray. Apparently he was told that everything is okay. Although seems to have a slight peripheral opacity in the right lung. The patient also has known pulmonary nodules. Will go ahead and treat him for community-acquired pneumonia or walking pneumonia. Also given some methylprednisolone to help him with pleurisy. Seems like his pain is better this time but still he still had some discomfort that he feels specially when he takes a deep breath in. After he completes the therapy the patient will have a repeat chest x-ray sometime in August to make sure that everything is clearing up. If he does develop worsening symptoms he is to call or go to the ER. Will follow-up in the next few months. If the patient has any worsening issues she will call for an earlier assessment. In the meantime he is going to continue with current respiratory therapy. And also he should have a CT scan sometime in December anyways the follow-up with his pulmonary nodule. 11/19/2024 the patient is here for pulmonary follow-up visit. Overall the patient has been doing well although he is having increased allergy symptoms. Does have postnasal drip and nasal congestion. Moderate severity. Breathing is okay. The patient does have a rescue inhaler that he uses as needed. Now coming to the springtime he does have a hard time with his allergy symptoms though. The patient did have a CT scan back in January 2024 and does have small pulmonary nodules. He is scheduled to have a repeat CAT scan January 2025. In addition to that will go ahead and treat him for his allergies and his nasal congestion. If he has any difficulties will call for an earlier assessment. [facility] Medical History (Updated 11/19/24 @ 11:06 by CAIN Neville) Constipation Opacity of lung on imaging study Pre-op examination GERD (gastroesophageal reflux disease) Orchialgia Weak urinary stream Asthma Nasal polyps Diabetes HTN (hypertension) Pulmonary nodules Surgical History History of esophagogastroduodenoscopy (EGD) Hx of colonoscopy H/O wrist surgery Family History Father Diabetes Hypertension Mother Hypertension Hyperlipidemia Brother Hypertension Family/Other Kidney stones Prostate cancer Bladder cancer Renal cancer Social History Household Members: None Housing: Apartment Alcohol intake: former Patient Tobacco Use Status: Former Tobacco user Tobacco use type: Cigarette Years Smoked: 30 years service: No Review of Systems Const Denies fatigue, Denies fever(s), Denies night sweats, Denies poor appetite and Denies weight loss ENT Reports Normal hearing present, Denies dental pain, Denies dysphagia, Denies hearing loss, Denies mouth pain, Reports nasal congestion, Reports nasal discharge, Reports nasal obstruction, Denies odynophagia, Reports sinus pain and Reports sinus pressure Card Reports no additional complaints, Denies dyspnea and Denies dyspnea on exertion Resp Denies chest congestion, Reports cough, Denies dyspnea, Denies dyspnea on exertion and Denies wheezing GI Denies abdominal pain, Denies melena, Denies bloating, Reports hematochezia, Denies constipation, Denies GI cramping, Denies dysphagia, Denies excessive flatus, Denies early satiety, Reports heartburn, Denies diarrhea, Denies nausea, Denies odynophagia, Denies vomiting and Denies hematemesis Skin/Breast Denies pruritus, Denies lesions, Denies rash and Denies jaundice Neuro Reports Normal hearing present and Denies Abnormal speech present Endo Denies fatigue Aller/Immun Denies wheezing Physical Exam Vital Signs: Last Vital Signs Pulse 63 11/19/24 15:40 BP 160/82 H 11/19/24 15:40 Pulse Ox 98 11/19/24 15:40 Oxygen Delivery Method Room Air 11/19/24 15:40 BMI result Body Mass Index 27.3 Const General: no acute distress and well developed HEENT Head: Yes normocephalic and Yes atraumatic General nose exam: Abnormal mucous membranes and turbinates present erythematous Eyes Pupils: Equal, round and reactive pupils present Neck Neck: Yes normal visual inspection and Yes no lymphadenopathy Chest Chest palpation & inspection: normal inspection of the chest Resp Effort & Inspection: normal respiratory effort and able to speak in complete sentences Auscultation: clear to auscultation bilaterally Cardio Rate: regular rate Rhythm: regular rhythm GI Palpation (GI): Soft to palpation Skin General skin exam: no rashes or lesions noted Neuro Cranial nerves: Yes Equal, round and reactive pupils present and Yes Normal hearing present Speech: No Abnormal speech present Extrem General: No clubbing, No cyanosis and No edema Psych Appearance: well kempt Attitude: cooperative Results AMB Urinalysis, Automated UA Leukoctes 0 Ernesto/uL Last Edit by ZHANNA Guillaume on 11/19/24 09:27 UA Nitrite Negative Last Edit by ZHANNA Guillaume on 11/19/24 09:27 UA Urobilinogen 3.5 mg/dL Last Edit by ZHANNA Guillaume on 11/19/24 09:2 7 UA Protein 0 mg/dL Last Edit by ZHANNA Guillaume on 11/19/24 09:27 UA pH 6.0 Last Edit by ZHANNA Guillaume on 11/19/24 09:27 UA Blood 10 Jose Angel/uL Last Edit by ZHANNA Guillaume on 11/19/24 09:27 UA Specific [place] 1.010 Last Edit by ZHANNA Guillaume on 11/19/24 09: 27 UA Ketone Negative Last Edit by ZHANNA Guillaume on 11/19/24 09:27 UA Bilirubin 0 mg/dL Last Edit by ZHANNA Guillaume on 11/19/24 09:27 UA Glucose 0 mg/dL Last Edit by ZHANNA Guillaume on 11/19/24 09:27 Assessment & Plan Assessment & Plan (1) Nasal polyps: Code(s): J33.9 - Nasal polyp, unspecified Category: Medical (2) Pulmonary nodules: Code(s): R91.8 - Other nonspecific abnormal finding of lung field Category: Medical (3) Asthma: Code(s): J45.909 - Unspecified asthma, uncomplicated Category: Medical Qualifiers: Asthma complication type: uncomplicated Asthma persistence: persistent Asthma severity: moderate Qualified Code(s): J45.40 - Moderate persistent asthma, uncomplicated (4) Sinusitis: Code(s): J32.9 - Chronic sinusitis, unspecified Category: Medical Qualifiers: Chronicity: acute Recurrence: recurrent Sinusitis location: unspecified location Qualified Code(s): J01.91 - Acute recurrent sinusitis, unspecified Plan WAI as needed Continue nasal therapy wtih flonase and nasal rinsing continue zyrtec continue singulair Continue WAI as needed CT chest to assess 8mm nodule 01/2025 F/U in 6 months Medications: New fluticasone propionate 50 mcg/actuation 2 sprays intranasal DAILY 15.8 mL 11RF 30 days J31.0 - Chronic rhinitis Changed From albuterol sulfate 90 mcg/actuation 2 puffs inhalation Q6H PRN dyspnea To albuterol sulfate 90 mcg/actuation 2 puffs inhalation Q6H PRN 8.5 grams 11RF dyspnea 30 days From cetirizine (Zyrtec) 10 mg PO DAILY PRN Allergies To cetirizine (Zyrtec) 10 mg PO DAILY PRN 30 tabs 10RF Allergies 30 days Coding Level of Care Code Est Pt Level 4 (51263) Diagnoses Nasal polyps J33.9 Pulmonary nodules R91.8 Moderate persistent asthma without complication J45.40 Asthma complication type: uncomplicated Asthma persistence: persistent Asthma severity: moderate Acute recurrent sinusitis, unspecified location J01.91 Chronicity: acute Recurrence: recurrent Sinusitis location: unspecified location Time Spent (min) 16
--- OUTSIDE RECORDS SUMMARY | 2024-11-19 19:15 | XMS_ITS | Encounter Summary ---
Author Organization [employer] Address [address] [place] [address] 7t [place] [address] Care Team Providers Care Regional Director Name Role Phone Ashley Frankel MD Primary Care Provider [phone] Viktor Sonya Unavailable Kishore Dorsey MD Unavailable Raheel Gee Unavailable [phone] Riya Fulton Unavailable Sergio Hackett Unavailable Unavailable Dominga Silva PharmD Unavailable Encounter Details Date Type Department Care Team (Late st Contact Info) Description 07/25/2022 Abstract [facility] ADULT DENTAL [address] [place] [address] Dental, Provider, DDS Social History Tobacco Use [...] Description 12/09/2024 8:00 AM EDT Office Visit [facility] ADULT DENTAL [address] [place] [address] Jackie Peacock 01/23/2025 9:45 AM EDT Office Visit [facility] MEDICINE [address] [place] [address] Ashley Frankel MD [address] [place] [address] documented as of this encounter Procedures Procedure [...] on filedocumented in this encounter Care Teams Regional Director Relationship Specialty Start Date End Date Ashley Frankel MD [address] [place] [address] PCP - General Family Medicine 08/28/18November [address] 3rd [place] [address] Gastroenterology 07/17/24 Kishore Dorsey MD [address] [place] [address] Urology 07/17/24 Raheel Gee 5 [place], [place] 10[address] Pulmonary Disease 07/17/24 Riya Fulton [address] 3rd [place] [address] Cardiology 07/17/24 Sergio Hackett [address] 2nd [place] [address] Orthopaedic Surgery 07/17/24 Dominga Silva, AnanthD [address] [place] [address] Pharmacist Internal Medicine 07/22/24 De. [facility] Psychiatry 10/10/24 documented as of this encounter
--- OUTSIDE RECORDS SUMMARY | 2024-11-19 19:15 | XMS_ITS | Encounter Summary ---
Author Organization [employer] Address [address] [place] [address] 7t [place] [address] Care Team Providers Care Absorption And Adsorption Engineer Name Role Phone Ashley Frankel MD Primary Care Provider [phone] Viktor November Unavailable Kishore Dorsey MD Unavailable [phone] Raheel Gee Unavailable [phone] Riya Fulton Unavailable Sergio Hackett Unavailable Unavailable Dominga Silva PharmD Unavailable Reason for Visit * Reason Onset Date Comments Appointment Request 08/05/2024 Encounter Details Date Type Department Care Team (Late st Contact Info) Description 08/05/2024 Telephone [facility] MEDICINE [address] [place] [address] Ashley Frankel MD [address] [place] [address] Appointment Request Social History Tobacco [...] the past 12 months, has t he [employer], gas, oil or water company threatened to [...] Visit [facility] ADULT DENTAL [address] [place] [address] Jackie Peacock 01/23/2025 9:45 AM EDT Office Visit [facility] MEDICINE [address] [place] [address] Ashley Frankel MD [address] [place] [address] documented as of this encounter Visit Diagnoses Not on filedocumented in this encounter Additional Health Concerns Assessment Noted Time PHQ-9 Depression Total Score: 0 07/17/20 10:33 AM EST documented as of this encounter Care Teams Absorption And Adsorption Engineer Relationship Specialty Start Date End Date Ashley Frankel MD [address] [place] [address] PCP - General Family Medicine 08/28/18 Sonya Hoang [address] [place] [address] Gastroenterology 07/17/24 Kishore Dorsey MD [address] [place] [address] Urology 07/17/24 Raheel Gee 5 [place], [place] 10[address] Pulmonary Disease 07/17/24 Riya Fulton 11 [facility] [address] [place] [address] Cardiology 07/17/24 Sergio Hackett [address] [place] [address] Orthopaedic Surgery 07/17/24 Dominga Silva, Mehrdad [address] [place] [address] Pharmacist Internal Medicine 07/22/24 De. [facility] Psychiatry 10/10/24 documented as of this encounter
--- OUTSIDE RECORDS SUMMARY | 2024-11-19 19:15 | XMS_ITS | Encounter Summary ---
Author Organization [email or web address] Address [address] [facility] 7t [place] [address] Care Team Providers Care Online Health And Fitness Coach Name Role Phone Ashley Frankel MD Primary Care Provider [phone] Hoang, November Unavailable Kishore Dorsey MD Unavailable Raheel Gee Unavailable [phone] Riya Fulton Unavailable Sergio Hackett Unavailable Unavailable Dominga Silva PharmD Unavailable [phone] Encounter Details Date Type Department Care Team (Late st Contact Info) Description 07/18/2023 Telephone [facility] MEDICINE [address] [place], [place] [phone] Ashley Frankel MD [address] [place], [place] [phone] Social History Tobacco Use Types Packs/Day Years [...] Bia Rose - 08/10/2023 1:42 PM EST Insole Reinforcer called pt to request verification of insurance/Medicare [...] Description 12/09/2024 8:00 AM EDT Office Visit [facility] ADULT DENTAL [address] [place] [address] Jackie Peacock 01/23/2025 9:45 AM EDT Office Visit [facility] MEDICINE [address] [place] [address] Ashley Frankel MD [address] [place] [address] documented as of this encounter Visit Diagnoses Not on filedocumented in this encounter Care Teams Online Health And Fitness Coach Relationship Specialty Start Date End Date Ashley Frankel MD [address] [place] [address] PCP - General Family Medicine 08/28/18 Sonya Hoang [address] 3rd [place] [address] Gastroenterology 07/17/24 Kishore Dorsey MD [address] [place] [address] Urology 07/17/24 Raheel Gee 5 [place], [place] 10[address] Pulmonary Disease 07/17/24 Riya Fulton 11 [facility] [address]rd [place] [address] Cardiology 07/17/24 Sergio Hackett [address] [place] [address] Orthopaedic Surgery 07/17/24 Dominga Silva, AnanthD [address] [place] [address] Pharmacist Internal Medicine 07/22/24 De. [facility] Psychiatry 10/10/24 documented as of this encounter
--- OUTSIDE RECORDS SUMMARY | 2024-11-19 19:15 | XMS_ITS | Encounter Summary ---
Author Organization [employer] Address [address] [facility] 7t [place] [address] Care Team Providers Care Deburrer Name Role Phone Ashley Frankel MD Primary Care Provider [phone] Viktor November Unavailable Kishore Dorsey MD Unavailable Raheel Gee Unavailable [phone] Riya Fulton Unavailable Sergio Hackett Unavailable Unavailable Dominga Silva PharmD Unavailable [phone] Reason for Visit * Reason Comments Med Change Request Encounter Details Date Type Department Care Team (Late st Contact Info) Description 07/12/2023 Refill [facility] [address] [place], [place] [phone] Ashley Frankel MD [address] [place], [place] [phone] Social History Tobacco Use Types Packs/Day Years [...] Visit [facility] [address] [place] [address] Jackie Peacock 01/23/2025 9:45 AM EDT Office Visit [facility] [address] [place] [address] Ashley Frankel MD [address] [place] [address] documented as of this encounter Visit Diagnoses Not on filedocumented in this encounter Care Teams Deburrer Relationship Specialty Start Date End Date Ashley Frankel MD [address] [place] [address] PCP - General Family Medicine 08/28/18November [address] 3rd [place] [address] Gastroenterology 07/17/24 Kishore Dorsey MD [address] [place] [address] Urology 07/17/24 Raheel Gee [address] [place], [place] [address] Pulmonary Disease 07/17/24 Riya Fulton 11 [facility] 3rd [place] [address] Cardiology 07/17/24 Sergio Hackett [address] [facility] [address] [place] [address] Orthopaedic Surgery 07/17/24 Dominga Silva, Mehrdad [address] [place] [phone] Pharmacist Internal Medicine 07/22/24 [facility] 10/10/24 documented as of this encounter
--- OUTSIDE RECORDS SUMMARY | 2024-11-19 19:15 | XMS_ITS | Encounter Summary ---
Author Organization [employer] Address [address] [facility] 7t [place] [address] Care Team Providers Care Beading Sawyer Name Role Phone Ashley Frankel MD Primary Care Provider [phone] Hoang, November Unavailable Kishore Dorsey MD Unavailable Raheel Gee Unavailable [phone] Riya Fulton Unavailable Sergio Hackett Unavailable Unavailable Dominga Silva PharmD Unavailable Reason for Visit * Reason Comments Med Refill Encounter Details Date Type Department Care Team (Late st Contact Info) Description 07/24/2023 Refill [facility] [address] [place] [address] [facility] [address] [place], [place] [phone] Prostatitis, acute Social History Tobacco Use Types [...] 8:00 AM EDT Office Visit [facility] [address] [place] [address] Jackie Peacock 01/23/2025 9:45 AM EDT Office Visit [facility] [address] [place] [address] Ashley Frankel MD [address] [place] [address] documented as of this encounter Visit Diagnoses Diagnosis Prostatitis, acute Acute prostatitis documented in this encounter Care Teams Beading Sawyer Relationship Specialty Start Date End Date Ashley Frankel MD [address] [place] [address] PCP - General Family Medicine 08/28/18November [address] 3rd [place] [address] Gastroenterology 07/17/24 Kishore Dorsey MD [address] [place] [address] Urology 07/17/24 Raheel Gee 5 [place], [place] [address] Pulmonary Disease 07/17/24 Riya Fulton 11 [facility] 3rd [place] [address] Cardiology 07/17/24 Sergio Hackett [address] [place] [address] Orthopaedic Surgery 07/17/24 Dominga Silva, AnanthD [address] [place] [address] Pharmacist Internal Medicine 07/22/24 [facility] 10/10/24 documented as of this encounter
--- OUTSIDE RECORDS SUMMARY | 2024-11-19 19:15 | XMS_ITS | Encounter Summary ---
Author Organization [employer] Address [address] [facility] 7t [place] [address] Care Team Providers Care Chief Learning Officer Name Role Phone Ashley Frankel MD Primary Care Provider [phone] Viktor November Unavailable Kishore Dorsey MD Unavailable Raheel Gee Unavailable [phone] Riya Fulton Unavailable Sergio Hackett Unavailable Unavailable Dominga SilvaD Unavailable Reason for Visit * Reason Comments Back Pain Encounter Details Date Type Department Care Team (Late st Contact Info) Description 10/26/2024 9:20 AM EST Office Visit [facility] [address] [place] [phone] Bryan Coleman MD [address] [place], [place] [phone] Acute right-sided low back pain with bilateral [...] 59 y.o. male who presents to Monday [facility] due to right lower back pain [...] daily prn constipation Patient presents to Monday [facility] due to right lower back pain [...] Description 12/09/2024 8:00 AM EDT Office Visit [facility] [address] [place] [address] Jackie Peacock 01/23/2025 9:45 AM EDT Office Visit [facility] [address] [place] [address] Ashley Frankel MD [address] [place] [address] Scheduled Orders Name Type Priority Associated Diagnoses [...] as of this encounter Care Teams Chief Learning Officer Relationship Specialty Start Date End Date Ashley Frankel MD [address] [place] [address] PCP - General Family Medicine 08/28/[address] 3rd [place] [address] Gastroenterology 07/17/24 Kishore Dorsey MD [address] [place] [address] Urology 07/17/24 Raheel Gee 5 [place], [place] [address] Pulmonary Disease 07/17/24 Riya Fulton 11 [facility] 3rd [place] [address] Cardiology 07/17/24 Sergio Hackett [address] [place] [address] Orthopaedic Surgery 07/17/24 Dominga Silva, AnanthD [address] [place] [address] Pharmacist Internal Medicine 07/22/24 [facility] 10/10/24 documented as of this encounter
--- OUTSIDE RECORDS SUMMARY | 2024-11-19 19:15 | XMS_ITS | Clinical Summary ---
Author Organization [employer] Address [address] [place] [address] 7 [place] [address] Care Team Providers Care Physical Science Professor Name Role Phone Ashley Frankel MD Primary Care Provider [phone] Hoang, November Unavailable Kishore Dorsey MD Unavailable Raheel Gee Unavailable [phone] Riya Fulton Unavailable Sergio Hackett Unavailable [...] long-term current use of insulin (CMS/[facility]) 1 each by Other route 2 [...] migh t be different from the original. [facility] [place] [employer] Supervisor: Kamila, member services number [phone], provider services line, , option 4 [employer] Agency: refused services Problem Noted Date Diagnosed [...] Removal 2021. New found mass on left yarsani. - Referred to Plastic Surgery 07/16/24 Assessment & Plan (07/17/2024 10:23 AM EST): Removal 2021. New found mass on left yarsani. - Referred to Plastic Surgery 07/16/24 Cardiac [...] due after 07/17/25 -eye care facilitated by [facility] -dental home is [facility] -health care proxy paperwork given 11/13/2023, given again 07/17/24 Assessment & Plan (07/17/2024 10:32 AM EST): -next physical exam due after 07/17/25 -eye care facilitated by [facility] -dental home is [facility] -health care proxy paperwork given 11/13/2023, given again 07/17/24 Assessment & Plan (11/13/2023 10:07 AM EDT): -next physical exam due after 04/27/2024 -eye care facilitated by [facility] -dental home is [facility] -health care proxy paperwork given 11/13/2023 Assessment & Plan (04/27/2023 9:45 AM EDT): -next physical exam due after 04/27/2024. -eye care facilitated by [facility], last visit 01/16/2023 -dental home is [facility] Class 1 obesity 02/24/2023 Erectile dysfunction [...] the strong evidence that these meds prevent MO/CVA. Continue atorvastatin 80qhs. Encouraged to take. Anxiety [...] CT May 2021 -CT 01/24/24 ordered by professional bass fisherman Dr. Raheel Gee MD, redemonstration of innumerable [...] getting tx for his neck. -Followed by [facility]. -Saw Dr. Evin Bhat at [facility] 02/2021 -referred to orthopedic on 11/13/2023 - [...] getting tx for his neck. -Followed by [facility]. -Saw Dr. Evin Bhat at [facility] 02/2021 -referred to orthopedic on 11/13/2023 - [...] getting tx for his neck. -Followed by [facility]. -Saw Dr. Evin Bhat at [facility] 02/2021 -referred to orthopedic on 11/13/2023 Assessment [...] getting tx for his neck. Followed by [facility]. Saw Dr. Evin Bhat at [facility] 02/2021 Assessment & Plan (04/27/2023 9:22 AM [...] getting tx for his neck. Followed by [facility]. Saw Dr. Evin Bhat at [facility] 02/2021 Assessment & Plan (11/07/2022 11:31 AM [...] getting tx for his neck. Followed by [facility]. [facility] Evin Bhat at [facility] 02/2021 Mild intermittent asthma 10/14/2021 Overview (08/21/2024): -Followed by Dr. Raheel Gee at [facility]. Note from 08/19/24 reviewed [...] right ureteroscopy laser lithotripsy stent insertion, 6 Mauritian by [address] Mayda Rodriguez. [...] DEPARTMENT Provider, Generic External Data 11/08/[address] [address] Ashley Frankel MD 10/31/2024 Orders Only GENERIC EXTERNAL DATA DEPARTMENT Provider, Generic External Data 10/28/[address] [facility] [address] [place] [address] Ashley Frankel MD 10/26/2024 9:20 AM EST Office Visit [facility] [address] [address] Bryan Coleman MD Acute right-sided low back pain with bilateral sciatica (Primary Dx); Nephrolithiasis; Constipation, unspecified constipation type 10/26/[address] 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 [address] [address] Ashley Frankel MD Dysuria (Primary Dx); Dyslipidemia; Gastroesophageal reflux disease, unspecified whether esophagitis present; Benign prostatic hyperplasia with urinary obstruction; Anxiety 10/10/[address] [facility] [address] [address] Ashley Frankel MD 10/10/2024 Orders Only GENERIC EXTERNAL DATA DEPARTMENT Provider, Generic External Data 10/07/[address] [facility] [address] [place] [address] Ashley Frankel MD Nurse Triage 09/30/[address] [address] Aurora Alexandre, RN Results 09/30/2024 Orders Only [address] [address] Ashley Frankel MD Renal calculi (Primary Dx); Hydronephrosis, unspecified hydronephrosis type 09/28/2024 11:00 AM EST Office Visit [address] [address] Les Hay MD Constipation, unspecified constipation type (Primary Dx); Primary hypertension 09/28/2024 Travel 09/27/2024 11:00 AM EST Office Visit [address] [address] Malika Mac MD Other microscopic hematuria (Primary Dx); Acute bilateral low back pain without sciatica 09/27/[address] [address] Ashley Frankel MD Nurse Triage 09/18/[address] [address] Nisha Smith MD Allergic rhinitis, unspecified seasonality, unspecified trigger 09/17/[address] [address] Ashley Frankel MD 09/09/2024 Orders Only [facility] External Provider, [facility] Renal calculi (Primary Dx) 08/26/[address] [address] Ashley Frankel MD from Last 3 Months [...] 12/09/2024 8:00 AM EDT Office Visit [facility] [address] [place] [address] Jackie Peacock 01/23/2025 9:45 AM EDT Office Visit [facility] [address] [place] [address] Ashley Frankel MD [address] [place] [address] Health Maintenance Due Date Last Done Comments [...] Blood Count 5.2 4.8 - 10.8 X10*3/uL [facility] Red Blood Count 4.14(L) 4.60 - 5.80 X10*6/uL [facility] Hemoglobin 12.9(L) 14.0 - 18.0 g/dl [facility] Hematocrit 36.8(L) 42.0 - 52.0 % [facility] Mean Corpuscular Volume 88.9 80.0 - 98.0 fL [facility] Mean Corpuscular Hemoglobin 31.2 27.0 - 33.0 pg [facility] Mean Corpuscular HGB Conc 35.1 31.0 - 36.0 g/dl [facility] Red Cell Distribution Width 12.4 11.0 - 16.0 % [facility] Platelet Count 230 160 - 400 X10*3/uL [facility] Mean Platelet Volume 10.2 9.4 - 12.4 fL [facility] Neutrophils Percent Auto 60.6 45 - 73 % [facility] Imm Gran Pct Auto 0.4 0.0 - 0.4 % [facility] Lymphocytes Percent Auto 25.6 20 - 40 % [facility] Monocytes Percent Auto 11.7(H) 2 - 11 % [facility] Eosinophils Percent Auto 1.1 0 - 4 % [facility] Basophils Percent Auto 0.6 0 - 2 % [facility] NRBC Pct Auto 0.0 0.0 - 0.2 /100WBC [facility] Neutrophils Absolute Auto 3.2 2.0 - 8.3 x10*3/uL [facility] Imm Gran Abs Auto 0.02 0.00 - 0.03 X10*3/uL [facility] Lymphocytes Absolute Auto 1.3 1.2 - 4.9 X10*3/uL [facility] Monocytes Absolute Auto 0.6 0.1 - 1.2 X10*3/uL [facility] Eosinophils Absolute Auto 0.1 0.0 - 0.4 X10*3/uL [facility] Basophils Absolute Auto 0.0 0.0 - 0.2 X10*3/uL [facility] NRBC Abs Auto 0.000 0.0 - 0.012 X10*3/uL [facility] 11/12/2024 2:35 PM EDT 11/12/2024 2:39 PM EDT us Generic External Data Provider LAB BLOOD ORDERAB LES Final Result Performing Organization Address City/[facility]/ZIP Co de Phone Number [facility] [address] [place] [phone] * Magnesium (11/12/2024 2:35 PM EDT) Only the most recent of3 resultswithin the time period is included. Magnesium 2.0 1.6 - 2.6 mg/dL [facility] 11/12/2024 2:35 PM EDT 11/12/2024 2:39 PM EDT us Generic External Data Provider LAB BLOOD ORDERAB LES Final Result Performing Organization Address [facility]/ZIP Co de Phone Number [facility] [address] [place] [phone] * Lipase (11/12/2024 2:35 PM EDT) Only the most recent of4 resultswithin the time period is included. Lipase 22 8 - 78 U/L [facility] 11/12/2024 2:35 PM EDT 11/12/2024 2:39 PM EDT us Generic External Data Provider LAB BLOOD ORDERAB LES Final Result [facility] [address] [place] [address] [phone] * (ABNORMAL) Comprehensive Metabolic Panel (11/12/2024 2:35 PM EDT) Only the most recent of3 resultswithin the time period is included. Sodium 143 135 - 145 mmol/L [facility] Potassium 3.7 3.3 - 5.1 mmol/L [facility] Chloride 108 96 - 108 mmol/L [facility] Carbon Dioxide 28 22 - 29 mmol/L [facility] Anion Gap 11(L) 12 - 20 [facility] Urea Nitrogen (BUN) 18(H) 9 - 16 mg/dL [facility] Creatinine, Serum 1.00 0.5 - 1.4 mg/dL [facility] Creatinine Clr Calc Pharmacy 79.3 [facility] Comment:eGFR (calculated fro m the MDRD study equation) and eCrCl(calculated from the Cockcroft-Gault equation) are based ondifferent parameters and may not yield comparable results.If eCrCl result is absurd, please check patient'sheight/weight. Estimated Glomerular Filt Rate >60 [facility] Comment:Chronic Kidney Disea se: Estimated GFR < 60 mL/min/1.19y7Bfwfuh Kidney Disease: Estimated GFR < 15 mL/min/1.73m2 Glucose 145(H) 60 - 115 mg/dL [facility] Calcium 9.5 8.4 - 10.2 mg/dL [facility] Bilirubin, Total 0.8 0.0 - 1.0 mg/dL [facility] Aspartate Amino Transferase 21 5 - 37 U/L [facility] Alanine Aminotransferase 12 0 - 40 U/L [facility] Total Protein 6.7 6.5 - 8.0 g/dL [facility] Albumin Level 3.9 3.5 - 5.0 g/dL [facility] Alkaline Phosphatase 92 39 - 117 U/L [facility] 11/12/2024 2:35 PM EDT 11/12/2024 2:39 PM EDT us Generic External Data Provider LAB BLOOD ORDERAB LES Final Result [facility] [address] [place] [address] [phone] * XR KUB and Upright 2 Views (11/12/2024 2:25 PM EDT) Anatomical Region Laterality Modality Radiographic Hannah ging 11/12/2024 2:25 PM EDT Narrative 11/12/2024 2:48 PM EDT ? [facility] ?[address] ?[place] [address] ?XRay Report ? Signed ? Patient: Krista,Bobby ?MR#: [id number] ? : 1965 ?Acct:[id number] ? Age/Sex: 59 / M ?ADM Date: 11/12/24 ? Loc: HO.ED ? Attending Dr: ? Ordering Physician: Nathalia Dorado ?? Date of Service: 11/12/24 ?? Procedure(s): XR KUB ?? Accession Number(s): [id number] ? cc: Ashley Frankel MD; Nathalia Dorado [...] DD/ 1425 ? TD/TT: 11/12/24 1442 ? Development Expert: ? Procedure Note Donjacobter, Image - 11/12/[address] [address] XRay Report Signed Patient: Pierce Velasco#: [id number] : 1965Acct:[id number] Age/Sex: 59 / MADM Date: 11/12/24 Loc: HO.ED Attending Dr: Ordering Physician: Nathalia Dorado Date of Service: 11/12/24 Procedure(s): XR KUB Accession Number(s): [id number] cc: Ashley Frankel MD; Nathalia Dorado EXAMINATION: [...] OV> 11/12/24 1444 DD/ TD/TT: 11/12/24 1442 Development Expert: [facility] External Provider IMG XR PROCEDURES Final Result * Culture, Urine, Routine (10/31/2024 7:59 AM EST) Only the most recent of2 resultswithin the time period is included. Urine Urine specimen obtained by clean catch procedure / Unknown 10/31/2024 7:59 AM EST 10/31/2024 5:58 PM EST Comment:UACC Narrative [facility] - 11/02/2024 10:45 AM EST Urine Culture No growth. Specimen Source: Urine clean catch us Generic External Data Provider LAB MICROBIOLOGY - GENERAL ORDERABLES Final Result [facility] [address] [place] [phone] * (ABNORMAL) POCT urinalysis dipstick [...] HIGH SENSITIVITY 3.4 <3.5 - 35.0 ng/L [facility] Comment:The Schmidt high sens itivity Troponin-I results should beused in conjunction with other diagnostic information suchas ECG, clinical observations and information, and patientsymptoms to aid in the diagnosis of MO. 10/24/2024 4:58 PM EST 10/24/2024 5:02 PM EST us Generic External Data Provider LAB BLOOD ORDERAB LES Final Result Performing Organization Address [facility] Co de Phone Number [facility] [address] [place] [phone] * Partial Thromboplastin Time, Activated (APTT) (10/24/2024 2:30 PM EST) Partial Thromboplastin Time 35.7 26.0 - 36.8 SEC [facility] Comment:For information rega rding the monitoring of direct thrombininhibitors, please refer to Pharmacy. 10/24/2024 2:30 PM EST 10/24/2024 2:33 PM EST Generic External Data Provider LAB BLOOD ORDERAB LES Final Result Performing Organization Address [facility] Co de Phone Number [facility] [address] [place] [phone] * Prothrombin Time-INR (10/24/2024 2:30 PM EST) Only the most recent of2 resultswithin the time period is included. Prothrombin Time 10.9 10.9 - 12.4 SEC [facility] INTERNATIONAL NORM RATIO 0.9 0.9 - 1.1 [facility] Comment:INTERNATIONAL NORMAL IZED RATIO (INR) [...] ORDERAB LES Final Result Performing Organization Address [facility] de Phone Number [facility] [address] [place] [phone] * B Type Natriuretic Peptide (BNP) (10/24/2024 2:30 PM EST) B Type Natriuretic Peptide 32 <100 pg/mL [facility] Comment:For those patients w ho are being treated with Natrecor(nesiritide, recombinant BNP), BNP testing should beperformed at least two hours post treatment in order toensure that only endogenous levels of BNP are detected. 10/24/2024 2:30 PM EST 10/24/2024 2:33 PM EST Generic External Data Provider LAB BLOOD ORDERAB LES Final Result Performing Organization Address [facility] de Phone Number [facility] [address] [place] [phone] [phone] * XR Chest 1 View (10/24/2024 1:22 PM EST) Anatomical Region Laterality Modality Chest Radiographic Hannah ging 10/24/2024 1:22 PM EST Narrative 10/24/2024 1:45 PM EST ? [facility] ?[address] ?[place] [address] ?XRay Report ? Signed ? Patient: Krista,Bobby ?MR#: [id number] ? : 1965 ?Acct:[id number] ? Age/Sex: 59 / M ?ADM Date: 10/24/ ? Loc: HO.ED ? Attending Dr: ? Ordering Physician: Alexy Yang ?? Date of Service: 10/24/24 ?? Procedure(s): XR chest 1V ?? Accession Number(s): [id number] ? cc: Alexy Yang; Ashley Frankel MD [...] PM ?? EST RP ? Dictated By: ?Jfefrey Downing MD ? Signed By: ?<Electronically signed by Jeffrey Weems MD in OV> ? 10/24/24 1342 ? DD/ 1322 ? TD/TT: 10/24/24 1336 ? Development Expert: ? Procedure Note Reshma, Image - 10/24/2024 [place] [address] XRay Report Signed Patient: Pierce Velasco#: [id number] : 1965Acct:[id number] Age/Sex: 59 / MADM Date: 10/24/24 Loc: HO.ED Attending Dr: Ordering Physician: Alexy Yang Date of Service: 10/24/24 Procedure(s): XR chest 1V Accession Number(s): [id number] cc: Alexy Yang; Ashley Frankel MD EXAMINATION: [...] 10/24/24 1342 DD/ 1322 TD/TT: 10/24/24 1336 Development Expert: [facility] External Provider IMG XR PROCEDURES Final Result * Vitamin D, 25-Hydroxy, Total, Immunoassay (10/24/2024 9:22 AM EST) Vitamin D 25-OH Total 39.3 >30 ng/mL [facility] Comment:Health Based Referen ce Values*< 20 ng/mL Wapspxynb81-55 ng/mL Insufficient> 30 ng/mL Sufficient*Colleen GILL. N [...] BLOOD ORDERABLES Final Result Performing Organization Address City/[facility]/ZIP Co de Phone Number [facility] [address] [place] [phone] * TSH W/Reflex to FT4 (10/24/2024 9:22 AM EST) TSH reflex Free T4 1.31 0.32 - 4.0 uIU/mL [facility] Blood Venous blood specimen / Unknown 10/24/2024 9:22 AM EST 10/24/2024 11:48 AM EST Ashley Frankel MD LAB BLOOD ORDERABLES Final Result [facility] [address] [place] [phone] * HIV-1/2 Antigen and Antibodies, Fourth Generation, with Reflexes (10/24/2024 9:22 AM EST) HIV AB/AG Nonreactive Nonreactive [facility] Comment:HIV-1 p24 Ag and/or HIV-1/HIV-2 Ab not detected.A test result that is nonreactive does not exclude thepossibility of exposure to or infection with HIV-1 and/orHIV-2. Nonreactive results in this assay for individualswith prior exposure to HIV-1 and/or HIV-2 may be due toantigen and antibody levels that are below the limit ofdetection of this assay.The [employer] HIV Ag/Ab Combo assay result andsupplemental assay results should be interpreted inconjunction with the patient's clinical presentation,history and other laboratory results. If the results areinconsistent with clinical evidence, additional testing issuggested to confirm the result. Blood Venous blood specimen / Unknown 10/24/2024 9:22 AM EST 10/24/2024 11:48 AM EST Ashley Frankel MD LAB BLOOD ORDERABLES Final Result Performing Organization Address [facility] Co de Phone Number [facility] [address] [place] [address] [phone] * Lactate Dehydrogenase (LD) (10/24/2024 9:22 AM EST) Lactate Dehydrogenase 248 118 - 273 U/L [facility] Blood Venous blood specimen / Unknown 10/24/2024 9:22 AM EST 10/24/2024 11:48 AM EST Ashley Frankel MD LAB BLOOD ORDERABLES Final Result Performing Organization Address [facility] Co de Phone Number [facility] [address] [place] [address] [phone] * FL Guidance in OR (10/01/2024 4:15 PM EST) Anatomical Region Laterality Modality X-Ray Angiograph y 10/01/2024 4:15 PM EST Narrative 10/02/2024 10:09 AM EST ? [facility] ?[address] ?[place] [address] ? Fluoroscopy Report ? Signed ? Patient: Krista,Bobby ?MR#: [id number] ? : 1965 ?Acct:[id number] ? Age/Sex: 59 / M ?ADM Date: 09/30/24 ? Loc: HO.S3 ?344-1 ? Attending Dr: Parveen Breen MD ? Ordering Physician: Mayda Rodriguez MD ?? Date of Service: 10/01/24 ?? Procedure(s): FL guidance in OR ?? Accession Number(s): [id number] ? cc: Mayda Rodriguez MD; Ashley Frankel [...] signed by Harrison Patle MD in OV> ?10/02/24 1006 ? DD/ 1615 ? TD/TT: 10/01/24 1710 ? Development Expert: ? Procedure Note Cesar Justice - 10/02/2024 [place] [id number] [facility] [place] [address] Fluoroscopy Report Signed Patient: KristaPierce dinh#: [id number] : 1965Acct:[id number] Age/Sex: 59 / MADM Date: 09/30/24 Loc: .S3 344-[address]: Parveen Breen MD Ordering Physician: Mayda Rodriguez MD Date of Service: 10/01/24 Procedure(s): FL guidance in OR Accession Number(s): [id number] cc: Mayda Rodriguez MD; Ashley Frankel MD [...] 10/02/24 1006 DD/ 1615 TD/TT: 10/01/24 1710 Development Expert: [facility] External Provider IMG IR PROCEDURES Edited Result - Final * (ABNORMAL) Urinalysis, Complete, with Reflex to Culture (09/30/2024 4:26 PM EST) Color Urine Yellow [facility] Appearance Urine Clear [facility] PH 5.5 5.0 - 9.0 [facility] Glucose Urine UA Negative Negative mg/dL [facility] Urine Blood Negative Negative [facility] Specific Donnelly - Urine <=1.005 1.005 - 1.025 [facility] Urine Protein Negative Neg-Trace mg/dL [facility] Urine Ketones Trace Negative mg/dL [facility] Nitrite Urine Negative Negative [facility] Leukocyte Esterase Urine Trace(A) Negative [facility] RBC Urine 0-2 0 - 2 /HPF [facility] Urine WBC 0-5 0 - 5 /HPF [facility] Urine Squamous Epithelial Cell 0-2 0 - 2 /HPF [facility] Urine Bacteria None Seen None Seen [facility] Hyaline Casts, Urine 0-2 0 - 2 /LPF [facility] 09/30/2024 4:26 PM EST 09/30/2024 4:29 PM EST Narrative [facility] - 09/30/2024 4:46 PM EST [id number], Clean Catch us Generic External Data Provider LAB URINE ORDERAB LES Final Result Performing Organization Address [facility] Co de Phone Number [facility] [address] [place] [phone] * Hepatic Function Panel (09/30/2024 4:26 PM EST) Only the most recent of2 resultswithin the time period is included. Bilirubin, Total 0.9 0.0 - 1.0 mg/dL [facility] Bilirubin, Direct 0.2 0.0 - 0.5 mg/dL [facility] Aspartate Amino Transferase 25 5 - 37 U/L [facility] Alanine Aminotransferase 12 0 - 40 U/L [facility] Total Protein 7.8 6.5 - 8.0 g/dL [facility] Albumin Level 4.5 3.5 - 5.0 g/dL [facility] Alkaline Phosphatase 94 39 - 117 U/L [facility] 09/30/2024 4:26 PM EST 09/30/2024 4:29 PM EST us Generic External Data Provider LAB BLOOD ORDERAB LES Final Result Performing Organization Address [facility] Co de Phone Number [facility] [address] [place] [phone] * (ABNORMAL) Basic Metabolic Panel (09/30/2024 4:26 PM EST) Only the most recent of2 resultswithin the time period is included. Sodium 141 135 - 145 mmol/L [facility] Potassium 3.6 3.3 - 5.1 mmol/L [facility] Chloride 108 96 - 108 mmol/L [facility] Carbon Dioxide 25 22 - 29 mmol/L [facility] Anion Gap 12 12 - 20 [facility] Urea Nitrogen (BUN) 14 9 - 16 mg/dL [facility] Creatinine, Serum 0.93 0.5 - 1.4 mg/dL [facility] Creatinine Clr Calc Pharmacy 85.6 [facility] Comment:eGFR (calculated fro m the MDRD study equation) and eCrCl(calculated from the Cockcroft-Gault equation) are based ondifferent parameters and may not yield comparable results.If eCrCl result is absurd, please check patient'sheight/weight. Estimated Glomerular Filt Rate >60 [facility] Comment:Chronic Kidney Disea se: Estimated GFR < 60 mL/min/1.08l5Hcepga Kidney Disease: Estimated GFR < 15 mL/min/1.73m2 Glucose 125(H) 60 - 115 mg/dL [facility] Calcium 9.6 8.4 - 10.2 mg/dL [facility] 09/30/2024 4:26 PM EST 09/30/2024 4:29 PM EST us Generic External Data Provider LAB BLOOD ORDERAB LES Final Result [facility] [address] [place] [phone] [phone] * US Retroperitoneal Complete (09/30/2024 1:13 PM EST) Anatomical Region Laterality Modality Ultrasound 09/30/2024 1:13 PM EST Narrative 09/30/2024 1:13 PM EST ? [facility] [facility] ?[address] ?[place] [address] ? Ultrasound Report ? Signed ? Patient: Krista,Bobby ?MR#: [id number] ? : 1965 ?Acct:[id number] ? Age/Sex: 59 / M ?ADM Date: 09/30/24 ? Loc: HO.US ? Attending Dr: Malika Mac MD ? Ordering Physician: Malika Mac MD ?? Date of Service: 09/30/24 ?? Procedure(s): US retroperitoneal comp ?? Accession Number(s): [id number] ? cc: Ashley Frankel MD; Malika Mac [...] 1313 ? DD/ ? TD/TT: 09/30/243 ? Development Expert: ? Procedure Note Cesar Justice - 09/30/[address] [address] Ultrasound Report Signed Patient: Pierce Velasco#: [id number] : 1965Acct:[id number] Age/Sex: 59 / MADM Date: 09/30/24 Loc: HO.US Attending Dr: Malika Mac MD Ordering Physician: Malika Mac MD Date of Service: 09/30/24 Procedure(s): US retroperitoneal comp Accession Number(s): [id number] cc: Ashley Frankel MD; Malika Mac MD [...] 09/30/24 1313 DD/ 1313 TD/TT: 09/30/24 1313 Development Expert: Malika Mac MD IMG US PROCEDURES Final Result * SARS-CoV-2 RNA, Influenza A/B, and RSV RNA, Ql NAAT (09/09/2024 11:01 AM EST) Influenza A PCR NEGATIVE Negative [facility] Influenza B PCR NEGATIVE Negative [facility] Resp Syncy Virus RNA Qual PCR NEGATIVE Negative [facility] SARS COV2 PCR NEGATIVE Negative [facility] Comment:All test results mus t [...] use by authorized laboratories.Testing performed on the [employer] GeneXpert utilizingreal-time RT-PCR.All SARS CoV2 and positive influenza A/B results arereported to [facility]. 09/09/2024 11:0 1 AM EST 09/09/2024 11:06 AM EST us Generic External Data Provider LAB MICROBIOLOGY - GENERAL ORDERABLES Final Result [facility] [address] [place] [address] [phone] * XR Chest 2 Views (09/09/2024 10:34 AM EST) Anatomical Region Laterality Modality Chest Radiographic Hannah ging 09/09/2024 10:3 4 AM EST Narrative 09/09/2024 11:06 AM EST ? [facility] ?[address] ?[place] [address] ?XRay Report ? Signed ? Patient: Bobby Velasco ?MR#: [id number] ? : 1965 ?Acct:[id number] ? Age/Sex: 59 / M ?ADM Date: 09/09/24 ? Loc: HO.ED ? Attending Dr: ? Ordering Physician: Deandra Reynolds DO ?? Date of Service: 09/09/24 ?? Procedure(s): XR chest 2V ?? Accession Number(s): [id number] ? cc: Ashley Frankel MD; Deandra Reynolds [...] DD/ 1034 ? TD/TT: 09/09/24 1045 ? Development Expert: ? Procedure Note Donotjurgeninterpreter, Image - 09/09/[address] [address] XRay Report Signed Patient: Pierce Velasco#: [id number] : 1965Acct:[id number] Age/Sex: 59 / MADM Date: 09/09/24 Loc: .ED Attending Dr: Ordering Physician: Deandra Reynolds DO Date of Service: 09/09/24 Procedure(s): XR chest 2V Accession Number(s): [id number] cc: Ashley Frankel MD; Deandra Reynolds DO [...] 09/09/24 1103 DD/ 1034 TD/TT: 09/09/24 1045 Development Expert: [facility] External Provider IMG XR PROCEDURES Edited Result - Final * Albumin, Random Urine W/Creatinine (08/13/2024 11:26 AM EST) Creatinine, Urine 73.67 mg/dL [facility] Microalbumin Urine 13.0 mg/L [facility] Microalbum Creatinine Ratio Ur 17.6 <30 ug/mg cr [facility] Comment:Albumin/Creatinine R atio Reference Ranges: Normal: < 30 ug/mg creatinine Microalbuminuria: 30 - 300 ug/mg creatinineClinical Albuminuria: > 300 ug/mg creatinine Urine 08/13/2024 11:2 6 AM EST 08/13/2024 1:00 PM EST Ashley Frankel MD LAB URINE ORDERABLES Final Result Performing Organization Address [facility] Co de Phone Number [facility] [address] [place] [phone] * (ABNORMAL) Hemoglobin A1c (08/13/2024 11:26 AM EST) Hemoglobin A1c 6.2(H) <6.0 % [facility] Comment:Hemoglobin A1C Refer ence Range Adults: 4.8 - 6.0 % Non diabetic: < 6.0 % Goal: < 7.0 %Additional Action Suggested: > 8.0 %Note: Hemoglobin A1c results are invalid for patients with abnormal amounts of HbF. Blood transfusions may impact the HbA1c concentration in the patient sample. Estimated Average Glucose 131 mg/dL [facility] Comment:eAG = Estimated ave rage glucose which is %A1C expressed asaverage glucose, using the formula of the O0X-HyaarfjIwsjzib Glucose study (ADAG), Diabetes Care, Vol.31,#8,Mar. 2007 Blood Venous blood specimen / Unknown 08/13/2024 11:26 AM EST 08/13/2024 12:59 PM EST Ashley Frankel MD LAB BLOOD ORDERABLES Final Result Performing Organization Address [facility] Co de Phone Number [facility] [address] [place] [phone] * (ABNORMAL) Lipid Panel, Standard (08/13/2024 11:26 AM EST) Pathologist [facility] Triglycerides 86 <150 mg/dL [facility] Comment:Desirable Triglyceri de: less than 150 mg/dLBorderline High Triglyceride 150-199 mg/dLHigh Triglyceride: 200-499 mg/dLVery High Triglyceride: greater than or equal to 5OO mg/dL Cholesterol 146 <200 mg/dL [facility] Comment:Desirable Cholestero l: less than 200 mg/dLBorderline High Cholesterol: 200-239 mg/dLHigh Cholesterol: greater than 239 mg/dL LDL Cholesterol Calculated 96 <100 mg/dL [facility] Comment:Desirable LDL: less than 100 mg/dLNear Optimal/Above Optimal LDL: 110- 129 mg/dLBorderline High LDL: 130-159 mg/dLHigh LDL: 160-189 mg/dLVery High LDL: greater than or equal to 190 mg/dL HDL Cholesterol 33(L) >40 mg/dL [facility] Comment:Desirable HDL: great er than 40 mg/dL Note: This HDL assay may give artificially low results in patients with liver disease. Blood Venous blood specimen / Unknown 08/13/2024 11:26 AM EST 08/13/2024 12:59 PM EST Ashley Frankel MD LAB BLOOD ORDERABLES Final Result [facility] [address] [place] [phone] * Colonoscopy (04/06/2023) [facility] Colonoscopy Normal Normal Historical Provider HEALTH MAINTENANCE Final Result * Hepatitis C Antibody with Reflex to HCV, RNA, Quantitative, Real-Time PCR (11/11/2022 8:59 AM EDT) [facility] Hepatitis C Antibody NON-REACT KELSY NON-REACT KELSY [facility] [employer] Index 0.64 <1.00 [facility] Comment: HCV antibody was non-reactive. There is no laboratory evidence of HCV infection. In most cases, no further action is required. However, if recent HCV exposure is suspected, a test for HCV RNA (test code 74912) is suggested. For additional information please refer to http://education.[employer]/faq/GYT10e4 (This link is being provided for informational/ educational purposes only.) Blood Venous blood specimen / Unknown 11/11/2022 8:59 AM EDT 11/11/2022 8:59 AM EDT Narrative [facility] - 11/11/2022 9:36 PM EDT FASTING:YES FASTING: YES Ashley Frankel MD LAB BLOOD ORDERABLES Final Result [facility] [address], [place] [address] [facility] [address] [place] [address] from Last 3 Months or Most Recently Relevant to Health Maintenance [place] [address] [place] [address] - [facility] - [facility] Care Teams Physical Science Professor Relationship Specialty Start Date End Date [place], MD Ashley [address] [place] [address] PCP - General Family Medicine 08/28/[address] [place] [address] Gastroenterology 07/17/24 Kishore Dorsey MD [address] [place] [address] Urology 07/17/24 Raheel Gee [address] [place] [address] Pulmonary Disease 07/17/24 Riya F[address]on [address] [place] [address] Cardiology 07/17/24 Sergio Hackett [address] [place] [address] Orthopaedic Surgery 07/17/24 Dominga Silva PharmD [address] [place] [address] Pharmacist Internal Medicine 07/22/24 De. Dalal Psychiatry 10/10/24
--- OUTSIDE RECORDS SUMMARY | 2024-11-19 19:15 | XMS_ITS | Clinical Summary ---
Author Organization [address] [facility] Address [address] [place] [address] Phone Care Team Providers Care Mechanical Commissioning Engineer Name Role Phone Ashley Frankel MD Primary Care Provider [phone] Allergies Active Allergy Reactions Criticality Noted Date Comments Clindamycin Anaphylaxis,Unknown High 03/29/2012 Doxycycline Diarrhea,Unknown Low 01/31/2023 Penicillins Anaphylaxis,Unknown High 04/06/2012 Other reaction(s): UNKNOWN REACTION-CHILDHOOD Encounters Date Type Department Care Team Description 10/12/2024 3:45 AM EST - 10/12/2024 9:39 AM EST Emergency [facility] Emergency [address] [place] [address] Smith Quan MD Urinary tract infection with hematuria, site unspecified (Primary Dx); Kidney stone; Acute urinary tract infection Discharge Disposition: Home or Self Care from Last 3 Months Medical History Medical History Date Comments Hypertension Diabetes mellitus ([facility]/HCC) Social History Tobacco Use Types Packs/Day Years [...] 9:00 AM EDT Consult Orthopedic Surgery - [facility] [address] [place] [address] Raheel Slater, PORTER [address] [address] Health Maintenance Due Date Last Done Comments [...] K/mcL LAB HEMETOLOGY METHOD 10/12/2024 12:01 AM [facility] RBC 4.60 4.50 - 5.50 M/mcL LAB HEMETOLOGY METHOD 10/12/2024 12:01 AM [facility] Hemoglobin 14.1 13.5 - 17.5 g/dL LAB HEMETOLOGY METHOD 10/12/2024 12:01 AM [facility] Hematocrit 42.7 42.0 - 54.0 % LAB HEMETOLOGY METHOD 10/12/2024 12:01 AM [facility] MCV 92.2 79.0 - 98.0 FL LAB HEMETOLOGY METHOD 10/12/2024 12:01 AM [facility] MCH 30.5 27.0 - 32.0 pcg LAB HEMETOLOGY METHOD 10/12/2024 12:01 AM [facility] MCHC 33.0 32.0 - 37.0 g/dL LAB HEMETOLOGY METHOD 10/12/2024 12:01 AM [facility] RDW 12.8 11.0 - 15.0 % LAB HEMETOLOGY METHOD 10/12/2024 12:01 AM [facility] Platelets 327 130 - 400 K/mcL LAB HEMETOLOGY METHOD 10/12/2024 12:01 AM [facility] MPV 10.4 7.0 - 11.0 FL LAB HEMETOLOGY METHOD 10/12/2024 12:01 AM [facility] NRBC 0.0 <1.0 % LAB HEMETOLOGY METHOD 10/12/2024 12:01 AM [facility] NRBC Absolute 0.00 <0.10 K/mcL LAB HEMETOLOGY METHOD 10/12/2024 12:01 AM [facility] Neutrophils Relative 66.8 % LAB HEMETOLOGY METHOD 10/12/2024 12:01 AM [facility] Lymphocytes Relative 21.5 % LAB HEMETOLOGY METHOD 10/12/2024 12:01 AM [facility] Monocytes Relative 9.6 % LAB HEMETOLOGY METHOD 10/12/2024 12:01 AM [facility] Eosinophils Relative 1.2 % LAB HEMETOLOGY METHOD 10/12/2024 12:01 AM [facility] Basophils Relative 0.4 % LAB HEMETOLOGY METHOD 10/12/2024 12:01 AM [facility] Immature Granulocytes Relative 0.5 % LAB HEMETOLOGY METHOD 10/12/2024 12:01 AM [facility] Neutrophils Absolute 5.12 1.50 - 7.00 K/mcL LAB HEMETOLOGY METHOD 10/12/2024 12:01 AM [facility] Lymphocytes Absolute 1.65 1.00 - 5.00 K/mcL LAB HEMETOLOGY METHOD 10/12/2024 12:01 AM [facility] Monocytes Absolute 0.74 0.20 - 1.00 K/mcL LAB HEMETOLOGY METHOD 10/12/2024 12:01 AM [facility] Eosinophils Absolute 0.09 0.00 - 0.50 K/[facility] LAB HEMETOLOGY METHOD 10/12/2024 12:01 AM [facility] Basophils Absolute 0.03 0.00 - 0.20 K/mcL LAB HEMETOLOGY METHOD 10/12/2024 12:01 AM [facility] Immature Granulocytes Absolute 0.04(H) 0.00 - 0.03 K/mcL LAB HEMETOLOGY METHOD 10/12/2024 12:01 AM [facility] Blood Venous blood specimen / Unknown Venipuncture / Unknown 10/11/2024 11:18 PM EST 10/11/2024 11:44 PM EST Smith Quan MD LAB BLOOD ORDERABLES Final Result [facility] [address] [place] [address], * (ABNORMAL) Comprehensive metabolic panel (10/11/2024 11:18 PM EST) Sodium 138 133 - 145 mmol/L LAB CHEMISTRY METHOD 10/12/2024 12:38 AM [facility] Potassium 4.3 3.5 - 5.5 mmol/L LAB CHEMISTRY METHOD 10/12/2024 12:38 AM [facility] Chloride 107 96 - 110 mmol/L LAB CHEMISTRY METHOD 10/12/2024 12:38 AM [facility] CO2 30 21 - 32 mmol/L LAB CHEMISTRY METHOD 10/12/2024 12:38 AM [facility] Anion Gap 1(L) 3 - 11 LAB CHEMISTRY METHOD 10/12/2024 12:38 AM [facility] Glucose 126(H) 70 - 100 mg/dL LAB CHEMISTRY METHOD 10/12/2024 12:38 AM [facility] BUN 15 5 - 25 mg/dL LAB CHEMISTRY METHOD 10/12/2024 12:38 AM [facility] Creatinine 1.15 0.70 - 1.30 mg/dL LAB CHEMISTRY METHOD 10/12/2024 12:38 AM [facility] eGFR 73 >=60 mL/min/1. 73m2 LAB CHEMISTRY METHOD 10/12/2024 12:38 AM [facility] Comment:Calculation based on the??Chronic Kidney Disease Epidemiology Collaboration (CKD-EPI) equation refit??without adjustment for race. BUN/Creatinine Ratio 13.0 LAB CHEMISTRY METHOD 10/12/2024 12:38 AM [facility] Calcium 9.8 8.5 - 10.5 mg/dL LAB CHEMISTRY METHOD 10/12/2024 12:38 AM [facility] AST (SGOT) 24 10 - 42 unit/L LAB CHEMISTRY METHOD 10/12/2024 12:38 AM [facility] ALT (SGPT) 22 10 - 60 unit/L LAB CHEMISTRY METHOD 10/12/2024 12:38 AM [facility] Alkaline Phosphatase 100 42 - 121 unit/L LAB CHEMISTRY METHOD 10/12/2024 12:38 AM [facility] Total Protein 6.9 6.0 - 8.0 g/dL LAB CHEMISTRY METHOD 10/12/2024 12:38 AM [facility] Albumin 3.9 3.2 - 5.0 g/dL LAB CHEMISTRY METHOD 10/12/2024 12:38 AM [facility] Total Bilirubin 0.6 0.0 - 1.4 mg/dL LAB CHEMISTRY METHOD 10/12/2024 12:38 AM [facility] Blood Venous blood specimen / Unknown Venipuncture / Unknown 10/11/2024 11:18 PM EST 10/11/2024 11:44 PM EST us Smith Quan MD LAB BLOOD ORDERABLES Final Result [facility] [address] [place] [address], [place] [phone] * (ABNORMAL) Urinalysis with reflex microscopic and culture (10/11/2024 10:34 PM EST) Specific [place] Urine 1.014 1.003 - 1.030 LAB URINALYSIS - AUTOMATED METHOD 10/12/2024 6:50 AM [facility] pH, Urine 5.5 5.0 - 8.0 pH LAB URINALYSIS - AUTOMATED METHOD 10/12/2024 6:50 AM [facility] Leukocytes, Urine Moderate(A) Negative LAB URINALYSIS - AUTOMATED METHOD 10/12/2024 6:50 AM [facility] Nitrite, Urine Positive(A) Negative LAB URINALYSIS - AUTOMATED METHOD 10/12/2024 6:50 AM [facility] Protein, Urine 300(A) <=Trace mg/dL LAB URINALYSIS - AUTOMATED METHOD 10/12/2024 6:50 AM [facility] Glucose, Urine Negative Negative mg/dL LAB URINALYSIS - AUTOMATED METHOD 10/12/2024 6:50 AM [facility] Ketones, Urine Negative Negative mg/dL LAB URINALYSIS - AUTOMATED METHOD 10/12/2024 6:50 AM [facility] Urobilinogen, Urine 1.0 0.2 - 1.0 mg/dL LAB URINALYSIS - AUTOMATED METHOD 10/12/2024 6:50 AM [facility] Bilirubin, Urine Small(A) Negative LAB URINALYSIS - AUTOMATED METHOD 10/12/2024 6:50 AM [facility] Blood, Urine Large(A) Negative LAB URINALYSIS - AUTOMATED METHOD 10/12/2024 6:50 AM [facility] RBC, Urine 1,724.4(H) 0 - 4 /HPF LAB URINALYSIS - AUTOMATED METHOD 10/12/2024 6:50 AM [facility] Comment:This is an appended report. These results have been appended to a previously preliminary verified report. WBC, Urine 48.9(H) 0 - 4 /HPF LAB URINALYSIS - AUTOMATED METHOD 10/12/2024 6:50 AM [facility] Comment:This is an appended report. These results have been appended to a previously preliminary verified report. Squamous Epithelial, Urine >100(H) 0 - 60 /LPF LAB URINALYSIS - AUTOMATED METHOD 10/12/2024 6:50 AM [facility] Comment:This is an appended report. These results have been appended to a previously preliminary verified report. Crystals, Urine LT CALCIUM OXALATE /LPF LAB URINALYSIS - AUTOMATED METHOD 10/12/2024 6:50 AM [facility] Comment:Corrected result: Pr eviously reported on 10/11/2024 at 2351 EST. Bacteria, Urine Negative Negative /HPF LAB URINALYSIS - AUTOMATED METHOD 10/12/2024 6:50 AM [facility] Comment: Edited result: Previously reported as Negative /HPF on 10/11/2024 at 2351 EST. This is an appended report. ??These results have been appended to a previously final verified report. Hyaline Casts, Urine 13.6(H) 0 - 3 /LPF LAB URINALYSIS - AUTOMATED METHOD 10/12/2024 6:50 AM [facility] Comment:This is an appended report. These results have been appended to a previously preliminary verified report. Urine Urine specimen obtained by clean catch procedure / Unknown Non-blood Collection / Unknown 10/11/2024 10:34 PM EST 10/11/2024 11:07 PM EST Smith Quan MD LAB URINE ORDERABLES Edited Result - Final Performing Organization Address [facility] Co de Phone Number [facility] [address] [place] [address], [place] [phone] * [place] urine culture tube (10/11/2024 10:34 PM EST) Extra Tube Hold for add-ons. 10/12/2024 1:11 AM [facility] Comment:Auto resulted. Urine Urine specimen obtained by clean catch procedure / Unknown Non-blood Collection / Unknown 10/11/2024 10:34 PM EST 10/11/2024 11:07 PM EST Smith Quan MD LAB URINE ORDERABLES Final Result Performing Organization Address [facility] Co de Phone Number [facility] [address] [place] [address], [place] [phone] * Culture urine (10/11/2024 10:34 PM EST) Pathologist [facility] Culture, Urine No growth 10/13/2024 10:54 AM [facility] Urine Urine specimen obtained by clean catch procedure / Unknown Non-blood Collection / Unknown 10/11/2024 10:34 PM EST 10/11/2024 11:52 PM EST Smith Quan MD LAB MICROBIOLOGY - GENERAL ORDERABLES Final Result Performing Organization Address [facility]/ZIP Co de Phone Number [facility] [address] [place] [address], [place] [phone] from Last 3 Months Insurance , [address] [place] [address] [employer] MED[employer] Member Subscriber Plan / Payer (Ef fective 2023-Present) Name:Bobby Velasco Relation to Subscriber:Self Name:Bobby Velasco Payer ID:[id number] Group ID:[id number] Type:Not on file Address: [place] [address] [address] [address] Care Teams Mechanical Commissioning Engineer Relationship Specialty Start Date End Date Ashley Frankel MD [address] [place] [phone] PCP - General Family Medicine 08/09/24
--- OUTSIDE RECORDS SUMMARY | 2024-11-19 19:15 | XMS_ITS | Encounter Summary ---
Author Organization [employer] Address [address] [facility] 7t [place] [address] Care Team Providers Care Cell Liner Name Role Phone Ashley Frankel MD Primary Care Provider [phone] Hoang November Unavailable Kishore Dorsey MD Unavailable [phone] Raheel Gee Unavailable [phone] Riya Fulton Unavailable Sergio Hackett Unavailable Unavailable Dominga Silva PharmD Unavailable Encounter Details Date Type Department Care Team (Late st Contact Info) Description 10/24/2024 Orders Only [facility] External Provider, [facility] Social History Tobacco Use Types Packs/Day [...] Description 12/09/2024 8:00 AM EDT Office Visit [facility] ADULT DENTAL [address] [place] [address] Jackie Peacock 01/23/2025 9:45 AM EDT Office Visit [facility] MEDICINE [address] [place] [address] Ashley Frankel MD [address] [place] [address] documented as of this encounter Procedures Procedure [...] Sensitivity Troponin I (10/24/2024 4:58 PM EST) [facility] TROPONIN I HIGH SENSITIVITY 3.4 <3.5 - 35.0 ng/L [facility] Comment:The Schmidt high sens itivity Troponin-I results should beused in conjunction with other diagnostic information suchas ECG, clinical observations and information, and patientsymptoms to aid in the diagnosis of PR. 10/24/2024 4:58 PM EST 10/24/2024 5:02 PM EST Generic External Data Provider LAB BLOOD ORDERAB LES Final Result Performing Organization Address [facility] Co de Phone Number [facility] [address] [place] [phone] * High Sensitivity Troponin I (10/24/2024 2:30 PM EST) [facility] TROPONIN I HIGH SENSITIVITY 4.1 <3.5 - 35.0 ng/L [facility] Comment:The Schmidt high sens itivity Troponin-I results should beused in conjunction with other diagnostic information suchas ECG, clinical observations and information, and patientsymptoms to aid in the diagnosis of PR. 10/24/2024 2:30 PM EST 10/24/2024 2:33 PM EST Generic External Data Provider LAB BLOOD ORDERAB LES Final Result Performing Organization Address [facility] Co de Phone Number [facility] [address] [place] [phone] * B Type Natriuretic Peptide (BNP) (10/24/2024 2:30 PM EST) [facility] B Type Natriuretic Peptide 32 <100 pg/mL [facility] Comment:For those patients w ho are being treated with Natrecor(nesiritide, recombinant BNP), BNP testing should beperformed at least two hours post treatment in order toensure that only endogenous levels of BNP are detected. 10/24/2024 2:30 PM EST 10/24/2024 2:33 PM EST us Generic External Data Provider LAB BLOOD ORDERAB LES Final Result [facility] [address] [place], [place] [phone] * (ABNORMAL) Comprehensive Metabolic Panel (10/24/2024 2:30 PM EST) Sodium 141 135 - 145 mmol/L [facility] Potassium 3.8 3.3 - 5.1 mmol/L [facility] Chloride 108 96 - 108 mmol/L [facility] Carbon Dioxide 28 22 - 29 mmol/L [facility] Anion Gap 9(L) 12 - 20 [facility] Urea Nitrogen (BUN) 12 9 - 16 mg/dL [facility] Creatinine, Serum 0.91 0.5 - 1.4 mg/dL [facility] Creatinine Clr Calc Pharmacy 80.7 [facility] Comment:eGFR (calculated fro m the MDRD study equation) and eCrCl(calculated from the Cockcroft-Gault equation) are based ondifferent parameters and may not yield comparable results.If eCrCl result is absurd, please check patient'sheight/weight. Estimated Glomerular Filt Rate >60 [facility] Comment:Chronic Kidney Disea se: Estimated GFR < 60 mL/min/1.51z2Vyaetk Kidney Disease: Estimated GFR < 15 mL/min/1.73m2 Glucose 197(H) 60 - 115 mg/dL [facility] Calcium 8.9 8.4 - 10.2 mg/dL [facility] Bilirubin, Total 0.7 0.0 - 1.0 mg/dL [facility] Aspartate Amino Transferase 22 5 - 37 U/L [facility] Alanine Aminotransferase 12 0 - 40 U/L [facility] Total Protein 6.8 6.5 - 8.0 g/dL [facility] Albumin Level 3.9 3.5 - 5.0 g/dL [facility] Alkaline Phosphatase 88 39 - 117 U/L [facility] 10/24/2024 2:30 PM EST 10/24/2024 2:33 PM EST Generic External Data Provider LAB BLOOD ORDERAB LES Final Result Performing Organization Address [facility] Co de Phone Number [facility] [address] [place] [phone] * Partial Thromboplastin Time, Activated (APTT) (10/24/2024 2:30 PM EST) Partial Thromboplastin Time 35.7 26.0 - 36.8 SEC [facility] Comment:For information rega rding the monitoring of direct thrombininhibitors, please refer to Pharmacy. 10/24/2024 2:30 PM EST 10/24/2024 2:33 PM EST Generic External Data Provider LAB BLOOD ORDERAB LES Final Result Performing Organization Address [facility] de Phone Number [facility] [address] [place] [phone] * Prothrombin Time-INR (10/24/2024 2:30 PM EST) Prothrombin Time 10.9 10.9 - 12.4 SEC [facility] INTERNATIONAL NORM RATIO 0.9 0.9 - 1.1 [facility] Comment:INTERNATIONAL NORMAL IZED RATIO (INR) REFERENCE [...] LAB BLOOD ORDERAB LES Final Result [facility] [address] [place] [address] [phone] * (ABNORMAL) CBC auto differential (10/24/2024 2:30 PM EST) White Blood Count 5.1 4.8 - 10.8 X10*3/uL [facility] Red Blood Count 4.31(L) 4.60 - 5.80 X10*6/uL [facility] Hemoglobin 13.0(L) 14.0 - 18.0 g/dl [facility] Hematocrit 39.1(L) 42.0 - 52.0 % [facility] Mean Corpuscular Volume 90.7 80.0 - 98.0 fL [facility] Mean Corpuscular Hemoglobin 30.2 27.0 - 33.0 pg [facility] Mean Corpuscular HGB Conc 33.2 31.0 - 36.0 g/dl [facility] Red Cell Distribution Width 12.6 11.0 - 16.0 % [facility] Platelet Count 290 160 - 400 X10*3/uL [facility] Mean Platelet Volume 9.7 9.4 - 12.4 fL [facility] Neutrophils Percent Auto 68.7 45 - 73 % [facility] Imm Gran Pct Auto 0.2 0.0 - 0.4 % [facility] Lymphocytes Percent Auto 19.5(L) 20 - 40 % [facility] Monocytes Percent Auto 9.8 2 - 11 % [facility] Eosinophils Percent Auto 1.2 0 - 4 % [facility] Basophils Percent Auto 0.6 0 - 2 % [facility] NRBC Pct Auto 0.0 0.0 - 0.2 /100WBC [facility] Neutrophils Absolute Auto 3.5 2.0 - 8.3 x10*3/uL [facility] Imm Gran Abs Auto 0.01 0.00 - 0.03 X10*3/uL [facility] Lymphocytes Absolute Auto 1.0(L) 1.2 - 4.9 X10*3/uL [facility] Monocytes Absolute Auto 0.5 0.1 - 1.2 X10*3/uL [facility] Eosinophils Absolute Auto 0.1 0.0 - 0.4 X10*3/uL [facility] Basophils Absolute Auto 0.0 0.0 - 0.2 X10*3/uL [facility] NRBC Abs Auto 0.000 0.0 - 0.012 X10*3/uL [facility] 10/24/2024 2:30 PM EST 10/24/2024 2:33 PM EST us Generic External Data Provider LAB BLOOD ORDERAB LES Final Result [facility] [address] [place] [address] [phone] * XR Chest 1 View (10/24/2024 1:22 PM EST) Anatomical Region Laterality Modality Chest Radiographic Hannah ging 10/24/2024 1:22 PM EST Narrative 10/24/2024 1:45 PM EST ? [facility] ?[address] ?[place] [address] ?XRay Report ? Signed ? Patient: Krista,Bobby ?MR#: [id number] ? : 1965 ?Acct:[id number] ? Age/Sex: 59 / M ?ADM Date: 10/24/ ? Loc: HO.ED ? Attending Dr: ? Ordering Physician: Alexy Yang ?? Date of Service: 02/27/25 ?? Procedure(s): XR chest 1V ?? Accession Number(s): [id number] ? cc: Alexy Yang; Ashley Frankel MD [...] DD/ 1322 ? TD/TT: 10/24/24 1336 ? Hydro[employer] Power Plant Manager: ? Procedure Note Donjacobter, Image - 10/24/2024 [place] [address] XRay Report Signed Patient: Pierce Velasco#: [id number] : 1965Acct:[id number] Age/Sex: 59 / MADM Date: 10/24/24 Loc: HO.ED Attending Dr: Ordering Physician: Alexy Yang Date of Service: 10/24/24 Procedure(s): XR chest 1V Accession Number(s): [id number] cc: Alexy Yang; Ashley Frankel MD EXAMINATION: [...] 10/24/24 1342 DD/ 1322 TD/TT: 10/24/24 1336 Hydro[employer] Power Plant Manager: [facility] External Provider IMG XR PROCEDURES Final Result documented in this encounter Visit Diagnoses Not on filedocumented in this encounter Additional Health Concerns Assessment Noted Time PHQ-9 Depression Total Score: 0 07/17/20 10:33 AM EST documented as of this encounter Care Teams Cell Liner Relationship Specialty Start Date End Date Ashley Frankel MD [address] [place] [address] PCP - General Family Medicine 08/28/18November [address] [address] Gastroenterology 07/17/24 Kishore Dorsey MD 10 [facility] [address] [place] [address] Urology 07/17/24 Raheel Gee 5 [place], [place] [address] Pulmonary Disease 07/17/24 Riya Fulton [address] [address] Cardiology 07/17/24 Sergio Hackett [address] [place] [address] Orthopaedic Surgery 07/17/24 Dominga Silva, Mehrdad [address] [place] [address] Pharmacist Internal Medicine 07/22/24 [facility] 10/10/24 documented as of this encounter
--- OUTSIDE RECORDS SUMMARY | 2024-11-19 19:16 | XMS_ITS | Encounter Summary ---
Author Organization [employer] Address 75 [facility] 7t [place] [address] Care Team Providers Care Rivet Driver Name Role Phone Ashley Frankel MD Primary Care Provider [phone]- [phone] Viktor November Unavailable Kishore Dorsey MD Unavailable Raheel Gee Unavailable [phone] Riya Fulton Unavailable Sergio Hackett Unavailable Unavailable Dominga Silva PharmD Unavailable [phone] Encounter Details Date Type Department Care Team (Late st Contact Info) Description 10/17/2024 Telephone [facility] MED[facility] [address] [place], [place] [phone] Ashley Frankel MD [address] [place], [place] [phone] Social History Tobacco Use Types Packs/Day Years [...] Office Visit [facility] ADULT DENTAL [address] [place] [address] Jackie Peacock 01/23/2025 9:45 AM EDT Office Visit [facility] [address] [place] [address] Ashley Frankel MD [address] [place] [address] documented as of this encounter Visit Diagnoses Not on filedocumented in this encounter Additional Health Concerns Assessment Noted Time PHQ-9 Depression Total Score: 0 07/17/20 24 10:33 AM EST documented as of this encounter Care Teams Rivet Driver Relationship Specialty Start Date End Date Ashley Frankel MD [address] [place] [address] PCP - General Family Medicine 08/28/18HoangNovember [address] [place] [address] Drive 3rd [place] [address] Gastroenterology 07/17/24 Kishore Dorsey MD [address] [place] [address] Urology 07/17/24 Raheel Gee 5 [place], [place] 10[address] Pulmonary Disease 07/17/24 Riya Fulton [address] 3rd [place] [address] Cardiology 07/17/24 Sergio Hackett 300 [facility] 2nd [place] [address] Orthopaedic Surgery 07/17/24 Dominga Silva, AnanthD [address] [place] [address] Pharmacist Internal Medicine 07/22/24 [facility] 10/10/24 documented as of this encounter
--- OUTSIDE RECORDS SUMMARY | 2024-11-19 19:16 | XMS_ITS | Encounter Summary ---
Author Organization [employer] Address 75 [facility] 7t [place] [address] Care Team Providers Care Dry Cleaning Machine Operator Name Role Phone Ashley Frankel MD Primary Care Provider [phone]- [phone] Viktor November Unavailable Kishore Dorsey MD Unavailable Raheel Gee Unavailable [phone] Riya Fulton Unavailable Sergio Hackett Unavailable Unavailable Dominga Silva PharmD Unavailable Encounter Details Date Type Department Care Team (Late st Contact Info) Description 10/28/2024 Telephone [facility] [address] [place], [place] [phone] Ashley Frankel MD [address] [place], [place] [phone] Social History Tobacco Use Types Packs/Day Years [...] for patient to contact Arminda Baker at [phone]. documented in this encounter Plan of Treatment Upcoming Encounters Date Type Department Care Team (Late st Contact Info) Description 12/09/2024 8:00 AM EDT Office Visit [facility] ADULT DENTAL [address] [place] [address] Jackie Peacock 01/23/2025 9:45 AM EDT Office Visit [facility] [address] [place] [address] Ashley Frankel MD [address] [place] [address] documented as of this encounter Visit Diagnoses Not on filedocumented in this encounter Additional Health Concerns Assessment Noted Time PHQ-9 Depression Total Score: 0 07/17/20 24 10:33 AM EST documented as of this encounter Care Teams Dry Cleaning Machine Operator Relationship Specialty Start Date End Date Ashley Frankel MD [address] [place] [address] PCP - General Family Medicine 08/28/18 Viktor November [address] 3rd [place] [address] Gastroenterology 07/17/24 Kishore Dorsey MD [address] [place] [address] Urology 07/17/24 Raheel Gee 5 [place], [place] [address] Pulmonary Disease 07/17/24 Riya Fulton [address] [address] Cardiology 07/17/24 Sergio Hackett [address] [place] [address] Orthopaedic Surgery 07/17/24 Dominga Silva, Mehrdad [address] [place] [address] Pharmacist Internal Medicine 07/22/24 [facility] 10/10/24 documented as of this encounter
--- OUTSIDE RECORDS SUMMARY | 2024-11-19 19:16 | XMS_ITS | Encounter Summary ---
Author Organization [employer] Address [address] [place] [address] 7t [place] [address] Care Team Providers Care Chemist Proteins Name Role Phone Ashley Frankel MD Primary Care Provider [phone] Viktor November Unavailable Kishore Dorsey MD Unavailable Raheel Gee Unavailable [phone] Riya Fulton Unavailable Sergio Hackett Unavailable Unavailable Dominga Silva PharmD Unavailable Encounter Details Date Type Department Care Team (Late st Contact Info) Description 02/01/2023 Telephone [facility] [address] [place], [place] [phone] Ashley Frankel MD [address] [place], [place] [phone] Social History Tobacco Use Types Packs/Day Years [...] Description 12/09/2024 8:00 AM EDT Office Visit [facility] ADULT DENTAL [address] [place] [address] PeacockHerminio maynardsa 01/23/2025 9:45 AM EDT Office Visit [facility] [address] [place] [address] Ashley Frankel MD [address] [place] [address] documented as of this encounter Visit Diagnoses Not on filedocumented in this encounter Care Teams Chemist Proteins Relationship Specialty Start Date End Date Ashley Frankel MD [address] [place] [phone] PCP - General Family Medicine 08/28/18 HoangNovember 11 [facility] 3rd [place] [address] Gastroenterology 07/17/24 Kishore Dorsey MD 10 [facility] [address] [place] [address] Urology 07/17/24 Raheel Gee 5 [place], [place] 10[address] Pulmonary Disease 07/17/24 Riya Fulton [address] [address] Cardiology 07/17/24 Sergio Hackett [address] [place] [address] Orthopaedic Surgery 07/17/24 Dominga Silva, Mehrdad [address] [place] [address] Pharmacist Internal Medicine 07/22/24 [facility] 10/10/24 documented as of this encounter
--- OUTSIDE RECORDS SUMMARY | 2024-11-19 19:16 | XMS_ITS | Encounter Summary ---
Author Organization [employer] Address [address] [place] [address] 7t [place] [address] Care Team Providers Care Meter Supervisor Name Role Phone Ashley Frankel MD Primary Care Provider [phone] Viktor November Unavailable Kishore Dorsey MD Unavailable Raheel Gee Unavailable [phone] Riya Fulton Unavailable Sergio Hackett Unavailable Unavailable Dominga Silva PharmD Unavailable Encounter Details Date Type Department Care Team (Late st Contact Info) Description 04/07/2023 Abstract [facility] MEDICINE [address] [place], [place] [phone] Ashley Frankel MD [address] [place], [place] [phone] Social History Tobacco Use Types Packs/Day Years [...] 12/09/2024 8:00 AM EDT Office Visit [facility] ADULT DENTAL [address] [place] [address] Jackie Peacock 01/23/2025 9:45 AM EDT Office Visit [facility] MEDICINE [address] [place] [address] Ashley Frankel MD [address] [place] [address] documented as of this encounter Procedures Procedure Name Priority Date/Time Associated Diagnosis Comments COLONOSCOPY Routine 04/06/2023 documented in this encounter Results * Colonoscopy (04/06/2023) Colonoscopy Normal Normal us Historical Provider [facility] Final Result documented in this encounter Visit Diagnoses Not on filedocumented in this encounter Care Teams Meter Supervisor Relationship Specialty Start Date End Date Ashley Frankel MD [address] [place] [address] PCP - General Family Medicine 08/28/18November 11 [facility] 3rd [place] [address] Gastroenterology 07/17/24 Kishore Dorsey MD 10 [facility] [address] [place] [address] Urology 07/17/24 Raheel Gee 5 [place], [place] [address] Pulmonary Disease 07/17/24 Riya Fulton 11 [facility] 3rd [place] [address] Cardiology 07/17/24 Sergio Hackett [address]nd [place] [address] Orthopaedic Surgery 07/17/24 Dominga Silva, Mehrdad [address] [place] [address] Pharmacist Internal Medicine 07/22/24 [facility] 10/10/24 documented as of this encounter
--- OUTSIDE RECORDS SUMMARY | 2024-11-19 19:16 | XMS_ITS | Encounter Summary ---
Author Organization [employer] Address [address] [place] [address] [address] [place] [address] Care Team Providers Care Stranding Supervisor Name Role Phone Ashley Frankel MD Primary Care Provider [phone] Viktor Sonya Unavailable Kishore Dorsey MD Unavailable Raheel Gee Unavailable [phone] Riya Fulton Unavailable Sergio Hackett Unavailable Unavailable Dominga Silva PharmD Unavailable Encounter Details Date Type Department Care Team (Latest Contact Info) Description 06/08/2022 Abstract [facility] CON[facility] Dental, Provider, DDS Social History [...] [facility] [address] [place], [place] [phone] Jackie Peacock 01/23/2025 9:45 AM EDT Office Visit [facility] MEDICINE [address] [place] [address] Ashley Frankel MD [address] [place], [place] [phone] documented as of this encounter Visit Diagnoses Not on filedocumented in this encounter Care Teams Stranding Supervisor Relationship Specialty Start Date End Date Ashley Frankel MD [address] [place] [address] PCP - General Family Medicine 08/28/18 Viktor November [address] 3rd [place] [address] Gastroenterology 07/17/24 Kishore Dorsey MD [address] [place] [address] Urology 07/17/24 Raheel Gee 5 [place], [place] [address] Pulmonary Disease 07/17/24 Riya Fulton [address] [facility] [address] [place] [address] Cardiology 07/17/24 Sergio Hackett [address] [place] [address] Orthopaedic Surgery 07/17/24 Dominga Silva PharmD [address] [place] [address] Pharmacist Internal Medicine 07/22/24 [facility] 10/10/24 documented as of this encounter
--- OUTSIDE RECORDS SUMMARY | 2024-11-19 19:16 | XMS_ITS | Encounter Summary ---
Author Organization [employer] Address 75 [facility] 7t [place] [address] Care Team Providers Care Ham Curer Name Role Phone Ashley Frankel MD Primary Care Provider [phone] Hoang November Unavailable Kishore Dorsey MD Unavailable [phone] Raheel Gee Unavailable [phone] Riya Fulton Unavailable Sergio Hackett Unavailable [...] 12/09/2024 8:00 AM EDT Office Visit [facility] [address] [place] [address] Jackie Peacock 01/23/2025 9:45 AM EDT Office Visit [facility] [address] [place] [address] Ashley Frankel MD [address] [place] [address] documented as of this encounter Procedures Procedure [...] EDT) Lipase 22 8 - 78 U/L [facility] 11/12/2024 2:35 PM EDT 11/12/2024 2:39 PM EDT us Generic External Data Provider LAB BLOOD ORDERAB LES Final Result Performing Organization Address City/[facility]/ZIP Co de Phone Number [facility] [address] [place] [phone] * Magnesium (11/12/2024 2:35 PM EDT) Magnesium 2.0 1.6 - 2.6 mg/dL [facility] 11/12/2024 2:35 PM EDT 11/12/2024 2:39 PM EDT Generic External Data Provider LAB BLOOD ORDERAB LES Final Result Performing Organization Address [facility]/ZIP Co de Phone Number [facility] [address] [place] [address] [phone] * (ABNORMAL) Comprehensive Metabolic Panel (11/12/2024 2:35 PM EDT) Sodium 143 135 - 145 mmol/L [facility] Potassium 3.7 3.3 - 5.1 mmol/L [facility] Chloride 108 96 - 108 mmol/L [facility] Carbon Dioxide 28 22 - 29 mmol/L [facility] Anion Gap 11(L) 12 - 20 [facility] Urea Nitrogen (BUN) 18(H) 9 - 16 mg/dL [facility] Creatinine, Serum 1.00 0.5 - 1.4 mg/dL [facility] Creatinine Clr Calc Pharmacy 79.3 [facility] Comment:eGFR (calculated fro m the MDRD study equation) and eCrCl(calculated from the Cockcroft-Gault equation) are based ondifferent parameters and may not yield comparable results.If eCrCl result is absurd, please check patient'sheight/weight. Estimated Glomerular Filt Rate >60 [facility] Comment:Chronic Kidney Disea se: Estimated GFR < 60 mL/min/1.93t1Grrcym Kidney Disease: Estimated GFR < 15 mL/min/1.73m2 Glucose 145(H) 60 - 115 mg/dL [facility] Calcium 9.5 8.4 - 10.2 mg/dL [facility] Bilirubin, Total 0.8 0.0 - 1.0 mg/dL [facility] Aspartate Amino Transferase 21 5 - 37 U/L [facility] Alanine Aminotransferase 12 0 - 40 U/L [facility] Total Protein 6.7 6.5 - 8.0 g/dL [facility] Albumin Level 3.9 3.5 - 5.0 g/dL [facility] Alkaline Phosphatase 92 39 - 117 U/L [facility] 11/12/2024 2:35 PM EDT 11/12/2024 2:39 PM EDT us Generic External Data Provider LAB BLOOD ORDERAB LES Final Result [facility] [address] [place] [phone] * (ABNORMAL) CBC auto differential (11/12/2024 2:35 PM EDT) White Blood Count 5.2 4.8 - 10.8 X10*3/uL [facility] Red Blood Count 4.14(L) 4.60 - 5.80 X10*6/uL [facility] Hemoglobin 12.9(L) 14.0 - 18.0 g/dl [facility] Hematocrit 36.8(L) 42.0 - 52.0 % [facility] Mean Corpuscular Volume 88.9 80.0 - 98.0 fL [facility] Mean Corpuscular Hemoglobin 31.2 27.0 - 33.0 pg [facility] Mean Corpuscular HGB Conc 35.1 31.0 - 36.0 g/dl [facility] Red Cell Distribution Width 12.4 11.0 - 16.0 % [facility] Platelet Count 230 160 - 400 X10*3/uL [facility] Mean Platelet Volume 10.2 9.4 - 12.4 fL [facility] Neutrophils Percent Auto 60.6 45 - 73 % [facility] Imm Gran Pct Auto 0.4 0.0 - 0.4 % [facility] Lymphocytes Percent Auto 25.6 20 - 40 % [facility] Monocytes Percent Auto 11.7(H) 2 - 11 % [facility] Eosinophils Percent Auto 1.1 0 - 4 % [facility] Basophils Percent Auto 0.6 0 - 2 % [facility] NRBC Pct Auto 0.0 0.0 - 0.2 /100WBC [facility] Neutrophils Absolute Auto 3.2 2.0 - 8.3 x10*3/uL [facility] Imm Gran Abs Auto 0.02 0.00 - 0.03 X10*3/uL [facility] Lymphocytes Absolute Auto 1.3 1.2 - 4.9 X10*3/uL [facility] Monocytes Absolute Auto 0.6 0.1 - 1.2 X10*3/uL [facility] Eosinophils Absolute Auto 0.1 0.0 - 0.4 X10*3/uL [facility] Basophils Absolute Auto 0.0 0.0 - 0.2 X10*3/uL [facility] NRBC Abs Auto 0.000 0.0 - 0.012 X10*3/uL [facility] 11/12/2024 2:35 PM EDT 11/12/2024 2:39 PM EDT us Generic External Data Provider LAB BLOOD ORDERAB LES Final Result [facility] [address] [place] [phone] * XR KUB and Upright 2 Views (11/12/2024 2:25 PM EDT) Anatomical Region Laterality Modality Radiographic Hannah ging 11/12/2024 2:25 PM EDT Narrative 11/12/2024 2:48 PM EDT ? [facility] ?[address] ?[place] [address] ?XRay Report ? Signed ? Patient: Krista,Bobby ?MR#: [id number] ? : 1965 ?Acct:[id number] ? Age/Sex: 59 / M ?ADM Date: 11/12/24 ? Loc: HO.ED ? Attending Dr: ? Ordering Physician: Nathalia Dorado ?? Date of Service: 11/12/24 ?? Procedure(s): XR KUB ?? Accession Number(s): [id number] ? cc: Ashley Frankel MD; Nathlaia Dorado ? EXAMINATION: ??XR ABDOMEN 1 VIEW [...] DD/ 1425 ? TD/TT: 11/12/24 1442 ? Test Operator: ? Procedure Note Cesar Justice - 11/12/[address] [address] XRay Report Signed Patient: Pierce Velasco#: [id number] : 1965Acct:[id number] Age/Sex: 59 / MADM Date: 11/12/24 Loc: HO.ED Attending Dr: Ordering Physician: Nathalia Dorado Date of Service: 11/12/24 Procedure(s): XR KUB Accession Number(s): [id number] cc: Ashley Frankel MD; Nathalia Dorado EXAMINATION: [...] 11/12/24 1444 DD/ 1425 TD/TT: 11/12/24 1442 Test Operator: [facility] External Provider IMG XR PROCEDURES Final Result documented in this encounter Visit Diagnoses Not on filedocumented in this encounter Additional Health Concerns Assessment Noted Time PHQ-9 Depression Total Score: 0 07/17/20 10:33 AM EST documented as of this encounter Care Teams Ham Curer Relationship Specialty Start Date End Date Ashley Frankel MD [address] [place] [address] PCP - General Family Medicine 08/28/18November [address] 3rd [place] [address] Gastroenterology 07/17/24 Kishore Dorsey MD [address] [place] [address] Urology 07/17/24 Raheel Gee [address] [place], [place] [address] Pulmonary Disease 07/17/24 Riya Fulton 11 [facility] 3rd [place] [address] Cardiology 07/17/24 Sergio Hackett [address] [facility] [address] [address] [place] [address] Orthopaedic Surgery 07/17/24 Dominga Silva, Mehrdad [address] [place] [address] Pharmacist Internal Medicine 07/22/24 [facility] 10/10/24 documented as of this encounter
--- OUTSIDE RECORDS SUMMARY | 2024-11-19 19:16 | XMS_ITS | Data Portability ---
Author Organization [facility], [facility] Address [address] [place] [address] Assessment No assessment recorded. Plan of Treatment Reminders Order Date Submit Date Provider Last Modified By Organization Details Last Modified Time Details Appointments None recorded. Lab hla-B27, blood - Ankylosis Spondylit is Labs 2023 024 BROOKLYNN [facility] (Centralized Electronic Ordering - All Locations), Patient Can Go To The Location Of Their Choice, [address] 21:34:03 hla-B27, blood - Ankylosis Spondylit is Labs 2023 024 [email or web address] [facility] (Centralized Electronic Ordering - All Locations), Patient Can Go To The Location Of Their Choice, [address] 13:00:12 Referral physical therapist referral - Evaluate & RxCervica l Stabiliza tion Program, DISH with significa ntly decreased ROM and neck/shou lder pain 2023 [facility], [address], [place], [address], 07:26:05 pain managemen t referral - neck pain, cervical DISH, MRI completed 2023 024 [email or web address] [facility], [address] [place] [address], [address], 14:04:48 physical therapist referral - Evaluate & RxCervica l Stabiliza tion Program. Please include thoracic stabiliza tion program as well 2023 024 BROOKLYNN Not available 09:53:28 Procedures None recorded. Surgeries None recorded. Imaging MRI, cervical spine, w/o contrast - neck pain with DISH, arm pain 2023 024 [email or web address] [facility] [address], [place], [address], 4 07:42:04 XR, cervical spine, 4 or 5 view - 325 new pt c-spine series, please include t-spine 2v 2023 024 [email or web address] [facility], [address], [address], [place], [address], 4 13:00:12 XR, thoracic spine, 2 view - 325 new pt c-spine series, please include t-spine 2v 2023 024 [email or web address] [facility], [address], [address], [place], [address], 4 13:00:12 Medication Orders meloxicam 15 mg tablet [id number], [address] [place], [address], 4 16:06:47 Patient TargetsNo targets recorded. Patient InstructionsNo instructions recorded. 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 Seque nce Based Typin g (SBT) may be used as a suppl ement al metho d when neces libia. If you have quest ions, pleas e call HLA custo amos servi ce at [phone] or email at [facility] [email or web address] om. Not Available [facility] ([facility]) [address] [facility], [place], [address], 03/22/2024 21:34:03 03/18/20 24 03/15/2024 MRI, cervi deisy spine , w/o contr ast [facility] Access ion Number : [id number] Name: Bobby Velasco Record Number : [id number] Date of : 1964 Date of Exam: 2023 Referr ing Physic raul: Rebecca avendaño, Alessandra [facility]sales [facility] [address] [facility], [place] [address] Exam: MR Cervic al Spine (C-) CPT 55315 Room Descri ption: [facility] Pion 3T MRI of the cervic al [...] ly Signed By: Nicanor Tatum MD [address] [facility]) [address], [place], [address], 03/18/2024 08:45:12 Result Notes None recorded. Problems Name Problem SNOMED Code Status Onset Date Resolution Date Notes Provider Name and Address Organization Details Recorded Time Diffuse idiopathic skeletal hyperostosi s of cervicothor acic spine 4759555345117 00 Active 2023 Sergio Hackett MD [address] [facility] [address], [place], [address] , [facility] 4 10:48:45 Ankylosis of spine 58884184 Active 2023 Sergio Hackett MD [address], [place], [address] , [facility] 4 10:48:46 Problem Notes None recorded. Procedures Surgical History None recorded. Imaging Results Imaging Date Name Status LastModified by Organiz ation Details LastModified Time 03/15/2024 MRI, cervical spine, w/o contrast completed [address] [facility] [address], [place], [address], 03/18/2024 08:45:12 Procedure Notes None recorded. Medical Equipment None Reported. Allergies Allergen ID Allergen Name Allergen Category Reaction Reaction Severity Criticality Documentation Date Start Date Code Code System Note Provider Name and Address Organization Details Recorded Time 587871 clindamyc in Not available Not available Not available Not available 12/19/2023 2582 RxNorm SANDEEP GUERRERO [facility] 4 13:54:21 817893 doxycycli ne Not available Not available Not available Not available 12/19/2023 3640 RxNorm SANDEEP GUERRERO [facility] 4 13:54:26 523370 Product containin g penicilli n (product) medicatio n Not available Not available Not available 12/19/2023 71491 8001 SNOMED SANDEEP GUERRERO [facility] 4 13:54:31 Medications Name Sig Start [...] Updated DateTime 12/20/2023 170.18 cm 29.8 kg/m2 10924.55 g SANDEEP GUERRERO [facility] 12/20/2023 10:13:56 Date Recorded Body height Body mass index (BMI) Body weight Provider Name and Address Organization Details Last Updated DateTime 03/14/2024 170.18 cm 29.8 kg/m2 28850.55 g Raji Hdz [facility] 03/14/2024 10:07:08 Social History None recorded. Functional Status None recorded. Mental Status None recorded. Family History Nothing Reported. Medical History Condition Response Allergies/Hayfever N Coronary Artery Disease N Anxiety/Depression N Emphysema N Thyroid Problems N COPD N Pacemaker N Kidney/Bladder Problems N Anemia N Vascular Disease N Gastrointestinal Disease Y Heart Attack ([place]) N Diabetes Y Autoimmune disease N Bleeding Disorder [...] SNOMED-CT Code Diagnosis ICD10 Code Diagnosis Note [id number] MD [address] [place] [address] [place] [address] 12/20/2023 09:32:46 01/09/2024 12:19:40 Neck pain 53248911 M54.2 Diffuse id iopathic skeletal hyperostosis of cervicothoracic spine 9981334850 42373 M48.13 58-year-ol d male with cervical, thoracic [...] will follow-up afterwards . Ankylosis of spine 36264 007 M43.20 [id number] Alessandra Lopez CNP [place] [address] [place] [address] 03/14/2024 09:47:09 03/29/2024 07:42:04 Neck pain 49063674 M54.2 Diffuse id iopathic skeletal hyperostosis of cervicothoracic spine 0455419932 13646 M48.13 [id number] Alessandra Lopez CNP [place] [address] [place] [address] 03/29/2024 15:34:17 03/29/2024 16:06:58 Neck pain 05534974 M54.2 Diffuse id iopathic skeletal hyperostosis of cervicothoracic spine 9416369463 02851 M48.13 Health Concerns Section Related Observation LastModified by Organization Detai ls LastModified Time None Recorded Concern Status LastModified by Organization Details LastModified Time None Recorded Advance Directives Directive None Recorded Payers Encounter Date Sequence Insurance Name Policy Number Policy Ortiz Covered Member ID Ortiz Member ID Guarantor Name 12/20/2023 1 [facility] - DOS ON OR AFTER 2022 - ONE CARE (MEDICARE REPLACEMENT/ADV ANTAGE - HMO) Bobby Velasco [id number] Bobby Velasco 03/14/2024 1 [facility] - DOS ON OR AFTER 2022 - ONE CARE (MEDICARE REPLACEMENT/ADV ANTAGE - HMO) Bobby Velasco [id number] Bobby Velasco 03/29/2024 1 [facility] - DOS ON OR AFTER 2022 - ONE CARE (MEDICARE REPLACEMENT/ADV ANTAGE - HMO) Bobby Velasco [id number] Bobby Velasco Notes Date Note Type Note [...] therapy in the past. Sergio Hackett MD [address] [place] [address], [phone], [facility] 12/20/2023 10:49:09 03/14/2024 text/html I am [...] relief FOLLOW UP: MRI review Speech recognition transfusion aide software was used to create portions of this document. An attempt at proofreading has been made to minimize errors. Please call for corrections. Alessandra Lopez, DIRECTOR BIOMEDICAL ENGINEERING [address] [facility] [address], [place], [address], [facility] 03/14/2024 16:53:17 03/29/2024 text/html [...] discussed with the patient today.1. referral to [facility] for evaluation for injection therapy. copy of referral mailed2. HLA negative, no ankylosing spondylitis3. continue physical therapy4. OTC NSAIDs and tylenol not helping much. I prescribed meloxicam. medication education provided. We also discussed muscle relaxers, but patient opted to hold off for now.5. recommend topicals for pain relief FOLLOW UP: prn Speech recognition transfusion aide software was used to create portions of this document. An attempt at proofreading has been made to minimize errors. Please call for corrections. time spent: > 20 minutes including independent review of MRI and telephone consultation Alessandra Lopez, DIRECTOR BIOMEDICAL ENGINEERING [address], [place], [address], [facility] 03/31/2024 18:31:56
--- OUTSIDE RECORDS SUMMARY | 2024-11-19 19:16 | XMS_ITS | Encounter Summary ---
Author Organization [employer] Address 75 [facility] 7t [place] [address] Care Team Providers Care Elevator Operator Name Role Phone Ashley Frankel MD Primary Care Provider [phone] Hoang, November Unavailable Kishore Dorsey MD Unavailable [phone] Rhaeel Gee Unavailable [phone] Riya Fulton Unavailable Sergio Hackett Unavailable [...] Visit [facility] [address] [place] [address] Jackie Peacock 01/23/2025 9:45 AM EDT Office Visit [facility] [address] [place] [address] Ashley Frankel MD [address] [place] [address] documented as of this encounter Visit Diagnoses Not on filedocumented in this encounter Additional Health Concerns Assessment Noted Time PHQ-9 Depression Total Score: 0 07/17/20 10:33 AM EST documented as of this encounter Care Teams Elevator Operator Relationship Specialty Start Date End Date Ashley Frankel MD [address] [place] [address] PCP - General Family Medicine 08/28/18November [address] 3rd [place] [address] Gastroenterology 07/17/24 Kishore Dorsey MD [address] [place] [address] Urology 07/17/24 Raheel Gee 5 [place], [place] [address] Pulmonary Disease 07/17/24 Riya Fulton 11 [facility] 3rd [place] [address] Cardiology 07/17/24 Sergio Hackett [address] [place] [address] Orthopaedic Surgery 07/17/24 Dominga Silva, AnanthD [address] [place] [address] Pharmacist Internal Medicine 07/22/24 [facility] 10/10/24 documented as of this encounter
--- OUTSIDE RECORDS SUMMARY | 2024-11-19 19:16 | XMS_ITS | Encounter Summary ---
Author Organization [employer] Address 75 [facility] 7t [place] [address] Care Team Providers Care Milling General Superintendent Name Role Phone Ashley Frankel MD Primary Care Provider [phone] Hoang November Unavailable Kishore Dorsey MD Unavailable Raheel Gee Unavailable [phone] Riya Fulton Unavailable Sergio Hackett Unavailable Unavailable Dominga Silva PharmD Unavailable [phone] Encounter Details Date Type Department Care Team [...] Description 12/09/2024 8:00 AM EDT Office Visit [facility] ADULT D[facility] [address] [place] [address] Jackie Peacock 01/23/2025 9:45 AM EDT Office Visit [facility] MEDICINE [address] [place] [address] Ashley Frankel MD [address] [place] [address] documented as of this encounter Procedures Procedure Name Priority Date/Time Associated Diagnosis Comments CULTURE, URINE, ROUTINE Routine 10/31/2024 7:59 AM EST documented in this encounter Results * Culture, Urine, Routine (10/31/2024 7:59 AM EST) Urine Urine specimen obtained by clean catch procedure / Unknown 10/31/2024 7:59 AM EST 10/31/2024 5:58 PM EST Comment:[facility] Narrative [facility] - 11/02/2024 10:45 AM EST Urine Culture No growth. Specimen Source: Urine clean catch us Generic External Data Provider LAB MICROBIOLOGY - GENERAL ORDERABLES Final Result [facility] [address] [place] [address] [phone] documented in this encounter Visit Diagnoses Not on filedocumented in this encounter Additional Health Concerns Assessment Noted Time PHQ-9 Depression Total Score: 0 07/17/20 10:33 AM EST documented as of this encounter Care Teams Milling General Superintendent Relationship Specialty Start Date End Date Ashley Frankel MD [address] [place] [address] PCP - General Family Medicine 08/28/[address] [place] [address] Gastroenterology 07/17/24 Kishore Dorsey MD [address] [place] [address] Urology 07/17/24 Raheel Gee 5 [place], [place] [address] Pulmonary Disease 07/17/24 Riya Fulton [address] [address] Cardiology 07/17/24 Sergio Hackett [address] [place] [address] Orthopaedic Surgery 07/17/24 Dominga Silva PharmD [address] [place] [address] Pharmacist Internal Medicine 07/22/24 [facility] 10/10/24 documented as of this encounter
--- OUTSIDE RECORDS SUMMARY | 2024-11-19 19:16 | XMS_ITS | Encounter Summary ---
Author Organization [employer] Address 75 [facility] 7t [place] [address] Care Team Providers Care Dye Lab Technician Name Role Phone Ashley Frankel MD Primary Care Provider [phone] Viktor November Unavailable Kishore Dorsey MD Unavailable Raheel Gee Unavailable [phone] Riya Fulton Unavailable Sergio Hackett Unavailable Unavailable Dominga Silva PharmD Unavailable [phone] Encounter Details Date Type Department Care Team (Late st Contact Info) Description 11/08/[address] [facility] MED[facility] [address] [place], [place] [phone] Ashley Frankel MD [address] [place], [place] [phone] Social History Tobacco Use Types Packs/Day Years [...] [facility] [address] [place], [place] [phone] Jackie Peacock 01/23/2025 9:45 AM EDT Office Visit [facility] [address] [place], [place] [phone] Ashley Frankel MD [address] [place], [place] [phone] documented as of this encounter Visit Diagnoses Not on filedocumented in this encounter Additional Health Concerns Assessment Noted Time PHQ-9 Depression Total Score: 0 07/17/20 10:33 AM EST documented as of this encounter Care Teams Dye Lab Technician Relationship Specialty Start Date End Date Ashley Frankel MD [address] [place] [address] PCP - General Family Medicine 08/28/18HoangNovember [address] [place] [address] Gastroenterology 07/17/24 Kishore Dorsey MD [address] [place] [address] Urology 07/17/24 Raheel Gee 5 [place], [place] [address] Pulmonary Disease 07/17/24 Riya Fulton [address] [address] Cardiology 07/17/24 Sergio Hackett [address] [place] [address] Orthopaedic Surgery 07/17/24 Dominga Silva, AnanthD [address] [place] [address] Pharmacist Internal Medicine 07/22/24 [facility] 10/10/24 documented as of this encounter
--- OUTSIDE RECORDS SUMMARY | 2024-11-19 19:16 | XMS_ITS | Encounter Summary ---
Author Organization [employer] Address [address] [place] [address] [address] [address] Care Team Providers Care Panel Machine Setter Name Role Phone Ashley Frankel MD Primary Care Provider [phone] Viktor November Unavailable Kishore Dorsey MD Unavailable Raheel Gee Unavailable [phone] Riya Fulton Unavailable Sergio Hackett Unavailable Unavailable Dominga Silva PharmD Unavailable Reason for Referral * Consultation (Routine) - Authorized Specialty Diagnoses / Procedures Referred By Jeromy worrell Referred To Contact Pharmacy Diagnoses Primary hypertension Ashley Frankel MD [address] [place] [address] Phone: tel: fax: Referral ID Status Reason Start Date Expiration Date Visits Requested Visits Authorized [id number] Authorized Continuity of Care 10/24/2024 10/24/2025 6 6 * Consultation (Routine) - Authorized Specialty Diagnoses / Procedures Referred By Jeromy worrell Referred To Contact Pharmacy Diagnoses Primary hypertension Ashley Frankel MD [address] [place] [address] Phone: tel: fax: Referral ID Status Reason Start Date Expiration Date Visits Requested Visits Authorized [id number] Authorized Consult and Treat 10/24/2024 10/24/2025 6 6 Reason for Visit * Reason Comments follow up bp Encounter Details Date Type Department Care Team (Latest Contact Info) Description 10/24/2024 9:15 AM EST Office Visit [facility] MEDICINE [address] [place] [address] Ashley Frankel MD [address] [place] [address] Primary hypertension (Primary Dx); Weight loss, non-intentional; [...] [facility] [address] [place] [address] Jackie Peacock 01/23/2025 9:45 AM EDT Office Visit [facility] MEDICINE [address] [place] [address] Ashley Frankel MD [address] [place] [address] Scheduled Referrals Name Type Priority Associated Diagnoses [...] 9:22 AM EST) HIV AB/AG Nonreactive Nonreactive [facility] Comment:HIV-1 p24 Ag and/or HIV-1/HIV-2 Ab not detected.A test result that is nonreactive does not exclude thepossibility of exposure to or infection with HIV-1 and/orHIV-2. Nonreactive results in this assay for individualswith prior exposure to HIV-1 and/or HIV-2 may be due toantigen and antibody levels that are below the limit ofdetection of this assay.The RVX HIV Ag/Ab Combo assay result andsupplemental assay results should be interpreted inconjunction with the patient's clinical presentation,history and other laboratory results. If the results areinconsistent with clinical evidence, additional testing issuggested to confirm the result. Blood Venous blood specimen / Unknown 10/24/2024 9:22 AM EST 10/24/2024 11:48 AM EST us Ashley Frankel MD LAB BLOOD ORDERABLES Final Result [facility] [address] [place] [phone] * TSH W/Reflex to FT4 (10/24/2024 9:22 AM EST) TSH reflex Free T4 1.31 0.32 - 4.0 uIU/mL [facility] Blood Venous blood specimen / Unknown 10/24/2024 9:22 AM EST 10/24/2024 11:48 AM EST Ashley Frankel MD LAB BLOOD ORDERABLES Final Result Performing Organization Address City/[facility] Co de Phone Number [facility] [address] [place] [phone] * Vitamin D, 25-Hydroxy, Total, Immunoassay (10/24/2024 9:22 AM EST) Vitamin D 25-OH Total 39.3 >30 ng/mL [facility] Comment:Health Based Referen ce Values*< 20 ng/mL Vlkjiimuv93-58 ng/mL Insufficient> 30 ng/mL Sufficient*Colleen GILL. N [...] BLOOD ORDERABLES Final Result Performing Organization Address [facility] Co de Phone Number [facility] [address] [place] [phone] * Lactate Dehydrogenase (LD) (10/24/2024 9:22 AM EST) Lactate Dehydrogenase 248 118 - 273 U/L [facility] Blood Venous blood specimen / Unknown 10/24/2024 9:22 AM EST 10/24/2024 11:48 AM EST Ashley Frankel MD LAB BLOOD ORDERABLES Final Result Performing Organization Address City/[facility] Co de Phone Number [facility] [address] [place] [phone] documented in this encounter Visit Diagnoses [...] documented as of this encounter Care Teams Panel Machine Setter Relationship Specialty Start Date End Date Ashley Frankel MD [address] [place] [address] PCP - General Family Medicine 08/28/18 Viktor Sonya [address] [facility] [address] [place] [address] Gastroenterology 07/17/24 Kishore Dorsey MD [address] [facility] [address] [place] [address] Urology 07/17/24 Raheel Gee 5 [place], [place] [address] Pulmonary Disease 07/17/24 Riya Fulton [address] [facility] [address] [place] [address] Cardiology 07/17/24 Sergio Hackett [address] [place] [address] Orthopaedic Surgery 07/17/24 Dominga Silva, AnanthD [address] [place] [address] Pharmacist Internal Medicine 07/22/24 [facility] 2/13/25 documented as of this encounter
--- OUTSIDE RECORDS SUMMARY | 2024-11-19 19:16 | XMS_ITS | Encounter Summary ---
Author Organization [employer] Address [address] [facility] 7t [place] [address] Care Team Providers Care Solder Making Laborer Name Role Phone Ashley Frankel MD Primary Care Provider [phone] Viktor November Unavailable Kishore Dorsey MD Unavailable Raheel Gee Unavailable [phone] Riya Fulton Unavailable Sergio Hackett Unavailable Unavailable Dominga SilvaD Unavailable Encounter Details Date Type Department Care Team (Late st Contact Info) Description 10/26/2024 Orders Only [facility] MEDICINE [address] [place], [place] [phone] Bryan [place] MD [address] [place], [place] [phone] Social History Tobacco Use Types Packs/Day Years [...] Description 12/09/2024 8:00 AM EDT Office Visit [facility] ADULT DENTAL [address] [place] [address] Jackie Peacock 01/23/2025 9:45 AM EDT Office Visit [facility] MEDICINE [address] [place] [phone] Ashley Frankel MD [address] [place] [address] documented as of this encounter Procedures Procedure Name Priority Date/Time Associated Diagnosis Comments CULTURE, URINE, ROUTINE Routine 10/26/2024 9:30 AM EST documented in this encounter Results * Culture, Urine, Routine (10/26/2024 9:30 AM EST) Urine Urine specimen obtained by clean catch procedure / Unknown 10/26/2024 9:30 AM EST 10/26/2024 2:18 PM EST Comment:[facility] - 10/28/2024 8:45 AM EST Urine Culture No growth. Specimen Source: Urine clean catch Bryan [place] MD LAB MICROBIOLOGY - GENERAL ORDER MAN Final Result [facility] [address] [place] [phone] documented in this encounter Visit Diagnoses Not on filedocumented in this encounter Additional Health Concerns Assessment Noted Time PHQ-9 Depression Total Score: 0 07/17/20 10:33 AM EST documented as of this encounter Care Teams Solder Making Laborer Relationship Specialty Start Date End Date Ashley Frankel MD [address] [place] [address] PCP - General Family Medicine 08/28/18Hoang, November 11 [facility] [address] [place] [address] Gastroenterology 07/17/24 Kishore Dorsey MD [address] [place] [address] Urology 07/17/24 Raheel Gee 5 [place], [place] [address] Pulmonary Disease 07/17/24 Riya Fulton 11 [facility] [address] [place] [address] Cardiology 07/17/24 Sergio Hackett [address] [place] [address] Orthopaedic Surgery 07/17/24 Dominga Silva, AnanthD [address] [place] [address] Pharmacist Internal Medicine 07/22/24 [facility] 10/10/24 documented as of this encounter
--- OUTSIDE RECORDS SUMMARY | 2024-11-19 19:16 | XMS_ITS | Encounter Summary ---
Author Organization [employer] Address [address] [place] [address] 7t [place] [address] Care Team Providers Care Hadoop Engineer Name Role Phone Ashley Frankel MD Primary Care Provider [phone] Viktor November Unavailable Kishore Dorsey MD Unavailable [phone] Raheel Gee Unavailable [phone] Riya Fulton Unavailable Sergio Hackett Unavailable Unavailable Dominga Silva PharmD Unavailable Encounter Details Date Type Department Care Team (Late st Contact Info) Description 09/13/2022 Abstract [facility] MEDICINE [address] [place] [address] Ashley Frankel MD [address] [place] [address] Social History Tobacco Use Types Packs/Day Years [...] [facility] ADULT DENTAL [address] [place] [address] Jackie Peacock 01/23/2025 9:45 AM EDT Office Visit [facility] MEDICINE [address] [place] [address] Ashley Frankel MD [address] [place] [address] documented as of this encounter Procedures Procedure Name Priority Date/Time Associated Diagnosis Comments COLONOSCOPY Routine 09/06/2012 documented in this encounter Results * Colonoscopy (09/06/2012) [facility] Signature Colonoscopy normal with Dr. Barrera us Historical Provider HEALTH MAINTENANCE Final Result documented in this encounter Visit Diagnoses Not on filedocumented in this encounter Care Teams Hadoop Engineer Relationship Specialty Start Date End Date Ashley Frankel MD [address] [place] [address] PCP - General Family Medicine 08/28/18November 11 [facility] [address] [place] [address] Gastroenterology 07/17/24 Kishore Dorsey MD [address] [place] [address] Urology 07/17/24 Raheel Gee 5 [place], [place] 10[address] Pulmonary Disease 07/17/24 Riya Fulton [address] [place] [address] Cardiology 07/17/24 Sergio Hackett [address] [place] [address] Orthopaedic Surgery 07/17/24 Dominga Silva PharmD [address] [place] [phone] Pharmacist Internal Medicine 07/22/24 [facility] 10/10/24 documented as of this encounter
--- OUTSIDE RECORDS SUMMARY | 2024-11-19 19:16 | XMS_ITS | Encounter Summary ---
Author Organization [employer] Address [address] [place] [address] 7t [place] [address] Care Team Providers Care Appraiser Real Estate Name Role Phone Ashley Frankel MD Primary Care Provider [phone] Viktor Sonya Unavailable Kishore Dorsey MD Unavailable [phone] Raheel Gee Unavailable [phone] Riya Fulton Unavailable Sergio Hackett Unavailable Unavailable Dominga Silva PharmD Unavailable [phone] Encounter Details Date Type Department Care Team (Latest Contact Info) Description 07/04/2019 Abstract [facility] Dental, Provider, DDS Social History [...] Description 12/09/2024 8:00 AM EDT Office Visit [facility] ADULT DENTAL [address] [place], [place] [phone] Jackie Peacock 01/23/2025 9:45 AM EDT Office Visit [facility] MEDICINE [address] [place] [address] Ashley Frankel MD [address] [place], [place] [phone] documented as of this encounter Visit Diagnoses Not on filedocumented in this encounter Care Teams Appraiser Real Estate Relationship Specialty Start Date End Date Ashley Frankel MD [address] [place] [address] PCP - General Family Medicine 08/28/18 Viktor Sonya [address] [place] [address] Gastroenterology 07/17/24 Kishore Dorsey MD [address] [place] [address] Urology 07/17/24 Raheel Gee 5 [place], [place] 10[address] Pulmonary Disease 07/17/24 Riya Fulton 11 [facility] [address] [place] [address] Cardiology 07/17/24 Sergio Hackett [address] [place] [address] Orthopaedic Surgery 07/17/24 Dominga Silva, Mehrdad [address] [place] [address] Pharmacist Internal Medicine 07/22/24 [facility] 10/10/24 documented as of this encounter
== END 2024-11-19 16:03 | disposition home or self-care (01) ==
LOC: HO.HPS 15:26
PROVIDERS: PCP Family Medicine; Visit Provider Hospitalist
DX: J45.40 Moderate persistent asthma, uncomplicated (principal); J33.9 Nasal polyp, unspecified; R91.8 Other nonspecific abnormal finding of lung field
CPT/HCPCS: 99214

== ENCOUNTER 2024-11-28 22:54 | Emergency (ER) | payer OTHER, SELFPAY ==
--- NOTE | 2024-11-28 | ECG_ITS ---
Test Reason : DIZZINESS Blood Pressure : */* mmHG Vent. Rate : 60 BPM Atrial Rate : 60 BPM P-R Int : 150 ms QRS Dur : 84 ms QT Int : 422 ms P-R-T Axes : 54 72 70 degrees QTcB Int : 422 ms Normal sinus rhythm Normal ECG When compared with ECG of 24-Oct-2024 14:21, No significant change was found Referred By: Generic ED Physician Electronically Signed By: FARTUN MILLARD
--- NOTE | ~2024-11-28 | CT_ITS ---
CLINICAL HISTORY: new onset tremor of right hand, headache CT head without contrast Comparison: CT/SR - CT HEAD/BRAIN WO IV CON - 07/19/24 12:28 EST Findings: No intra-axial mass, midline shift, hydrocephalus, or acute hemorrhage. No significant atrophy. Mild supratentorial periventricular white matter hypodensities most suggestive of chronic small-vessel ischemic changes. Atherosclerotic vascular disease Mild mucosal thickening in right maxillary sinus. The orbits are unremarkable. No acute skull fracture. IMPRESSION: 1. No acute intracranial findings. This document has been electronically signed by: Natalie Hou MD on 11/29/2024 00:53:30
[2024-11-28 22:59] VITALS: BP 162/76; PULSE 66; RESP 16; TEMP 36.7; O2SAT 98; BMI 27.6
[2024-11-28 23:27] LABS: Basophils Percent Auto 0.4 % (0-2); Eosinophils Absolute Auto 0.1 X10*3/uL (0.0-0.4); Eosinophils Percent Auto 1.8 % (0-4); Hematocrit 36.2 % (42.0-52.0); Hemoglobin 12.4 g/dl (14.0-18.0); Imm Gran Abs Auto 0.01 X10*3/uL (0.00-0.03); Imm Gran Pct Auto 0.2 % (0.0-0.4); Lymphocytes Absolute Auto 1.5 X10*3/uL (1.2-4.9); Lymphocytes Percent Auto 27.5 % (20-40); MANUAL DIFF FLAG NO; Mean Corpuscular HGB Conc 34.3 g/dl (31.0-36.0); Mean Corpuscular Hemoglobin 30.7 pg (27.0-33.0); Mean Corpuscular Volume 89.6 fL (80.0-98.0); Mean Platelet Volume 9.8 fL (9.4-12.4); Monocytes Absolute Auto 0.5 X10*3/uL (0.1-1.2); Monocytes Percent Auto 9.6 % (2-11); Neutrophils Absolute Auto 3.4 x10*3/uL (2.0-8.3); Neutrophils Percent Auto 60.5 % (45-73); Platelet Count 255 X10*3/uL (160-400); Red Blood Count 4.04 X10*6/uL (4.60-5.80); Red Cell Distribution Width 12.6 % (11.0-16.0); White Blood Count 5.6 X10*3/uL (4.8-10.8)
[2024-11-28 23:43] LABS: Alanine Aminotransferase 12 U/L (0-40); Alkaline Phosphatase 93 U/L (39-117); Anion Gap 11 (12-20); Aspartate Amino Transferase 21 U/L (5-37); Bilirubin Total 0.5 mg/dL (0.0-1.0); Blood Urea Nitrogen 16 mg/dL (9-16); Calcium 9.1 mg/dL (8.4-10.2); Carbon Dioxide 28 mmol/L (22-29); Chloride 108 mmol/L (96-108); Creatinine Clr Calc Pharmacy 61.2; Estimated Glomerular Filt Rate 56; Glucose Random 172 mg/dL (60-115); Lipase 35 U/L (8-78); Magnesium 2.1 mg/dL (1.6-2.6); Potassium 3.7 mmol/L (3.3-5.1); Sodium 143 mmol/L (135-145); Total Protein 6.5 g/dL (6.5-8.0)
[2024-11-28 23:47] LABS: Troponin-I High Sensitivity 6.7 ng/L (<3.5-35.0)
--- NOTE | 2024-11-29 00:02 | ED.GENADULT ---
HPI - General Adult General Chief complaint: General Medical Stated complaint: high bp Time Seen by Provider: 11/28/24 23:29 Source: patient, RN notes reviewed and old records reviewed Mode of arrival: ambulatory Limitations: no limitations History of Present Illness ED Provider: Darling HPI narrative: 59-year-old male past medical history significant for diabetes, BPH, GERD, hypertension, asthma presents for evaluation of multiple complaints. The patient reports that he woke up with a headache this morning. He reports that he had some chest pressure around noon today which has since resolved. He reports intermittent dizziness The patient reports that he has been compliant with his blood pressure medication at home with the exception of his chlorthalidone He reports that he was not skipping intentionally but ?I misplaced it. He reports that he checked his blood pressure at home today and it was 172/103. Currently he denies any chest pain, cough, shortness of breath He denies any alcohol or substance abuse Related Data Home Medications ?Medication ?Instructions ?Recorded ?Confirmed aspirin 81 mg tablet,delayed 81 mg PO DAILY 08/04/20 09/30/24 release blood sugar diagnostic (FreeStyle #10 ea 06/22/21 03/22/24 Lite Strips) lancets 33 gauge (TRUEplus Lancets) #100 ea 06/22/21 03/22/24 chlorthalidone 25 mg tablet 25 mg PO DAILY 06/09/23 09/30/24 hydroxyzine HCl 25 mg tablet 25 mg PO QID PRN Anxiety 02/09/24 09/30/24 trazodone 50 mg tablet 50 mg PO BEDTIME PRN Insomnia 02/09/24 09/30/24 fluticasone propionate 50 2 spray intranasal DAILY PRN 09/30/24 09/30/24 mcg/actuation nasal Allergy Symptoms spray,suspension tramadol 50 mg tablet 50 mg PO BEDTIME PRN Pain 09/30/24 09/30/24 atorvastatin 80 mg tablet 80 mg PO DAILY 10/01/24 10/01/24 Previous Rx's ?Medication ?Instructions ?Recorded acetaminophen 500 mg tablet 1,000 mg (2 x 500 mg) PO Q6H PRN 12/16/23 (Tylenol Extra Strength) fever or pain #20 tabs famotidine 40 mg tablet 40 mg PO DAILY PRN for heartburn 05/08/24 #90 tabs amlodipine 10 mg tablet 10 mg PO DAILY #90 tabs 06/24/24 lisinopril 40 mg tablet 40 mg PO DAILY #90 tabs 07/01/24 meclizine 25 mg tablet 25 mg PO BID PRN dizziness #14 tabs 07/19/24 albuterol sulfate 90 mcg/actuation 2 puff inhalation Q6H PRN dyspnea 11/19/24 aerosol inhaler 30 days #8.5 grams cetirizine 10 mg tablet (Zyrtec) 10 mg PO DAILY PRN Allergies 30 11/19/24 days #30 tabs docusate sodium 100 mg capsule 100 mg PO .qhs #30 caps 11/19/24 (Colace) fluticasone propionate 50 2 spray intranasal DAILY 30 days 11/19/24 mcg/actuation nasal #15.8 mL spray,suspension sennosides 8.6 mg capsule (senna) 17.2 mg (2 x 8.6 mg) PO BEDTIME 11/19/24 PRN constipation #60 caps terazosin 5 mg capsule 5 mg PO BEDTIME 90 days #90 caps 11/19/24 Allergies Allergy/AdvReac Type Severity Reaction Status Date / Time amoxicillin [AMOXICILLIN] Allergy Severe ANAPHYLAXIS Verified 11/28/24 23:04 Penicillins Allergy Severe UNKNOWN Verified 11/28/24 23:04 REACTION-CHILDHOOD doxycycline [From VIBRAMYCIN] AdvReac Mild DIARRHEA Verified 11/28/24 23:04 Clindamycin HCl Allergy Severe Anaphylaxis Uncoded 11/19/24 09:10 Review of Systems Constitutional: Constitutional: Denies body ache(s), Denies chills, Denies fever(s) and Reports headache(s) Eyes: Eyes: Denies blurry vision and Denies eye discharge ENT: Denies dental pain, Denies vertigo, Reports dizziness, Reports headache(s) and Denies hoarseness Cardiovascular: Cardiovascular: Reports chest pain (Resolved) and Denies dyspnea Respiratory: Respiratory: Denies cough and Denies dyspnea Gastrointestinal: Gastrointestinal: Denies abdominal pain, Denies nausea and Denies vomiting Musculoskeletal: Musculoskeletal: Denies back pain Integumentary/Breasts: Skin/Breast: Denies rash Neurologic: Denies vertigo, Reports dizziness and Reports headache(s) Psychiatric: Psychiatric: Denies anxiety PMFSH Past Medical History Medical History (Updated 11/29/24 @ 02:02 by Bob Hastings) Constipation Opacity of lung on imaging study Pre-op examination GERD (gastroesophageal reflux disease) Orchialgia Weak urinary stream Asthma Nasal polyps Diabetes HTN (hypertension) Pulmonary nodules Surgical History History of esophagogastroduodenoscopy (EGD) Hx of colonoscopy H/O wrist surgery Family History Family History Father Diabetes Hypertension Mother Hypertension Hyperlipidemia Brother Hypertension Family/Other Kidney stones Prostate cancer Bladder cancer Renal cancer Social History Social History Household Members: None Housing: Apartment Alcohol intake: former Patient Tobacco Use Status: Former Tobacco user Tobacco use type: Cigarette Years Smoked: 30 years Advance Directives: No Advance Directives Information Provided: Yes Do you have a plan to hurt others: No Plan service: No Physical Exam ED Vital Signs: Vital Signs - 24 hr 11/28/24 22:59 Temperature 98.1 F Pulse Rate 66 Respiratory Rate 16 Blood Pressure 162/76 H Pulse Oximetry 98 Oxygen Delivery Method Room Air BMI result Body Mass Index 27.6 Const General: healthy appearing, comfortable, no acute distress, alert and awake Nutritional Appearance: well nourished Orientation/consciousness: patient oriented x3 HENMT Head: Yes normocephalic and Yes atraumatic Eyes Eyelids: Yes eyelids normal Conjunctivae: conjunctivae normal Sclerae: sclerae normal Corneas: corneas normal Pupils: Equal, round and reactive pupils present EOM: EOMs intact bilaterally Neck Neck: Yes full ROM Resp Effort & Inspection: normal respiratory effort, able to speak in complete sentences and not labored Cardio Rate: regular rate Rhythm: regular rhythm GI Inspection: No distended Palpation (GI): Soft to palpation, not firm, nontender, no guarding and not rigid Skin General skin exam: elasticity normal Neuro Other: Resting tremor of the right upper extremity General: patient oriented x3 Cranial nerves: Yes CN's II-XII intact bilaterally, Yes Equal, round and reactive pupils present and Yes Bilaterally intact EOM present Cognition (Neuro): normal cognition Motor exam (neuro): 5/5 motor strength present throughout and Pronator motor function not present Coordination: gingcy-vi-wixi test normal, mzsi-ah-bict test normal, tandem gait normal and Romberg test negative Extrem Other: Moving all extremities well without any obvious deformities Medications Administered Discontinued Medications Generic Name Dose Route Start Last Admin Trade Name Hesham PRN Reason Stop Dose Admin Acetaminophen 975 mg 11/28/24 23:59 11/29/24 00:46 Acetaminophen 325 Mg Tablet PO 11/29/24 00:00 Not Given ONCE ONE Medical Decision Making Medical Decision Making [facility] Narrative: 59-year-old male with past medical history as above presents for evaluation of dizziness, chest pain that has since resolved. Patient's labs are reviewed, no leukocytosis, he has a stable anemia consistent with his baseline. No significant chemistry abnormalities warranting intervention. Troponin is 6.7, within normal limits and his chest pain started about 12 hours prior to labs being drawn. He rules out for ACS given that he has a nonischemic EKG, is currently chest pain-free in his troponin is normal. His blood pressure is still elevated to 162/76, but this is improved from when he reported at home. He appears to have been noncompliant with his chlorthalidone. I discussed the importance of compliance. Given the patient's headache and new onset resting tremor I ordered a CT scan of the brain. He has no focal neuro deficits, I have a low suspicion for stroke. Cerebellar exam is benign. Differential Diagnosis Differential Diagnoses: The differential diagnosis associated with the presentation includes Hypertension Medication noncompliance Orthostasis Dizziness Brain mass CVA Lab Data [facility] Lab Attestation statement: I reviewed the patient's lab results. As above 11/28/24 23:21 11/28/24 23:21 Labs: Lab Results 11/28/24 Range/Units 23:21 WBC 5.6 (4.8-10.8) X10*3/uL RBC 4.04 L (4.60-5.80) X10*6/uL Hgb 12.4 L (14.0-18.0) g/dl Hct 36.2 L (42.0-52.0) % MCV 89.6 (80.0-98.0) fL MCH 30.7 (27.0-33.0) pg MCHC 34.3 (31.0-36.0) g/dl RDW 12.6 (11.0-16.0) % Plt Count 255 (160-400) X10*3/uL MPV 9.8 (9.4-12.4) fL Immature Gran % (Auto) 0.2 (0.0-0.4) % Neut % (Auto) 60.5 (45-73) % Lymph % (Auto) 27.5 (20-40) % Posey % (Auto) 9.6 (2-11) % Eos % (Auto) 1.8 (0-4) % Baso % (Auto) 0.4 (0-2) % Lymph # (Auto) 1.5 (1.2-4.9) X10*3/uL Posey # (Auto) 0.5 (0.1-1.2) X10*3/uL Eos # (Auto) 0.1 (0.0-0.4) X10*3/uL Baso # (Auto) 0.0 (0.0-0.2) X10*3/uL Abs Immat Gran (auto) 0.01 (0.00-0.03) X10*3/uL Absolute Neuts (auto) 3.4 (2.0-8.3) x10*3/uL Absolute Nucleated RBC 0.000 (0.0-0.012) X10*3/uL Nucleated RBC % (auto) 0.0 (0.0-0.2) /100WBC Sodium 143 (135-145) mmol/L Potassium 3.7 (3.3-5.1) mmol/L Chloride 108 (96-108) mmol/L Carbon Dioxide 28 (22-29) mmol/L Anion Gap 11 L (12-20) BUN 16 (9-16) mg/dL Creatinine 1.30 (0.5-1.4) mg/dL Estim Creat Clear Calc 61.2 Estimated GFR 56 Random Glucose 172 H (60-115) mg/dL Calcium 9.1 (8.4-10.2) mg/dL Magnesium 2.1 (1.6-2.6) mg/dL Total Bilirubin 0.5 (0.0-1.0) mg/dL AST 21 (5-37) U/L ALT 12 (0-40) U/L Alkaline Phosphatase 93 (39-117) U/L Troponin I High Sens 6.7 D (<3.5-35.0) ng/L Total Protein 6.5 (6.5-8.0) g/dL Albumin 4.0 (3.5-5.0) g/dL Lipase 35 (8-78) U/L Independent Interpretation I performed an independent interpretation of an: EKG Interpretation: Normal sinus rhythm with a rate of [address] segment changes. Radiology Impression Discussion of test interpretation with radiology: I have reviewed the radiologist's reading. Radiologist Impression: Findings: No intra-axial mass, midline shift, hydrocephalus, or acute hemorrhage. No significant atrophy. Mild supratentorial periventricular white matter hypodensities most suggestive of chronic small-vessel ischemic changes. Atherosclerotic vascular disease Mild mucosal thickening in right maxillary sinus. The orbits are unremarkable. No acute skull fracture. IMPRESSION: 1. No acute intracranial findings. This document has been electronically signed by: Natalie Hou MD on 11/29/2024 00:53:30 Discharge Plan Discharge Clinical Impression: Dizziness, Headache, Hypertension Patient Disposition: Home, Self-Care Instructions: Chronic Hypertension (ED) Additional Instructions: Your workup in the ER today was reassuring. This includes your blood work, EKG, CT scan. You likely have what is called a resting tremor It is important that you take all of your blood pressure medication as prescribed Follow-up with your primary doctor, return for new or worsening symptoms Prescriptions: No Action famotidine 40 mg tablet 40 mg PO DAILY PRN (Reason: for heartburn) Qty: 90 4RF amlodipine 10 mg tablet 10 mg PO DAILY Qty: 90 3RF lisinopril 40 mg tablet 40 mg PO DAILY Qty: 90 3RF terazosin 5 mg capsule 5 mg PO BEDTIME 90 Days Qty: 90 1RF acetaminophen [Tylenol Extra Strength] 500 mg tablet 1,000 mg PO Q6H PRN (Reason: fever or pain) Qty: 20 0RF meclizine 25 mg tablet 25 mg PO BID PRN (Reason: dizziness) Qty: 14 0RF tramadol 50 mg tablet 50 mg PO BEDTIME PRN (Reason: Pain) fluticasone propionate 50 mcg/actuation spray,suspension 2 spray intranasal DAILY PRN (Reason: Allergy Symptoms) atorvastatin 80 mg tablet 80 mg PO DAILY aspirin 81 mg tablet,delayed release (DR/EC) 81 mg PO DAILY (DME) lancets [TRUEplus Lancets] 33 gauge misc See Rx Instructions Not Applicable TID Qty: 100 Rx Instructions: As directed (DME) FreeStyle Lite Strips Strip See Rx Instructions Not Applicable TID Qty: 10 Rx Instructions: As directed chlorthalidone 25 mg tablet 25 mg PO DAILY hydroxyzine HCl 25 mg tablet 25 mg PO QID PRN (Reason: Anxiety) trazodone 50 mg tablet 50 mg PO BEDTIME PRN (Reason: Insomnia) fluticasone propionate 50 mcg/actuation spray,suspension 2 spray intranasal DAILY 30 Days Qty: 15.8 11RF cetirizine [Zyrtec] 10 mg tablet 10 mg PO DAILY PRN (Reason: Allergies) 30 Days Qty: 30 10RF albuterol sulfate 90 mcg/actuation HFA aerosol inhaler 2 puff INHALATION Q6H PRN (Reason: dyspnea) 30 Days Qty: 8.5 11RF senna 8.6 mg capsule 17.2 mg PO BEDTIME PRN (Reason: constipation) Qty: 60 6RF docusate sodium [Colace] 100 mg capsule 100 mg PO .qhs Qty: 30 6RF Print Language: Mohawk
--- NOTE | 2024-11-29 00:46 | PC.NURSE ---
pt refused Tylenol, states only has lower abd discomfort but no other pain and feels i don't need it right now. PA aware.
[2024-11-29 02:11] VITALS: BP 144/74; PULSE 56; RESP 16; TEMP 36.6; O2SAT 98
== END 2024-11-29 02:13 | disposition home or self-care (01) ==
PROVIDERS: Emergency Provider Emergency Medicine; PCP Family Medicine
DX: R42 Dizziness and giddiness (principal); R51.9 Headache, unspecified; I10 Essential (primary) hypertension; E11.9 Type 2 diabetes mellitus without complications; J45.909 Unspecified asthma, uncomplicated; Z79.82 Long term (current) use of aspirin; Z79.02 Long term (current) use of antithrombotics/antiplatelets; Z87.891 Personal history of nicotine dependence
CPT/HCPCS: 36415; 70450; 80053; 83690; 83735; 84484; 85025; 93005; 99284

== ENCOUNTER → 2024-11-28 23:12 | Outpatient (BNV) | payer OTHER, SELFPAY | PROVIDERS: Emergency Provider Emergency Medicine; PCP Family Medicine; Visit Provider Internal Medicine | DX: R42 Dizziness and giddiness (principal) | CPT/HCPCS: 93010 ==

== ENCOUNTER 2024-11-29 07:30 | Emergency (ER) | payer OTHER, SELFPAY ==
--- NOTE | ~2024-11-29 | CT_ITS ---
EXAMINATION: CT ABDOMEN PELVIS WITHOUT IV CONTRAST HISTORY: lower abd cramping diarrhea COMPARISON: Comparison is made with the prior examination dated 12/27/2021. TECHNIQUE: CT scan of the abdomen and pelvis was performed without contrast using standard departmental protocol. Coronal and sagittal reformatted images were generated and reviewed. Oral contrast material was not administered at the request of the referring physician. This CT exam was performed with one or more of the following dose reduction techniques: automated exposure control, adjustment of the mA and/or kV according to patient size, use of iterative reconstruction technique. DLP: 449 mGy-cm FINDINGS: LOWER CHEST: The visualized lung bases are clear. There is no pleural effusion. CARDIOVASCULATURE: The heart is normal in size. There is no pericardial effusion. LIVER: The liver is normal in size and contour. The liver has an unremarkable unenhanced appearance. GALLBLADDER / BILE DUCTS: The gallbladder is unremarkable. There is no intra or extrahepatic biliary ductal dilatation. SPLEEN: The spleen is normal in size and has an unremarkable unenhanced appearance. PANCREAS: The pancreas has an unremarkable unenhanced appearance. ADRENAL GLANDS: Unremarkable. KIDNEYS/RETROPERITONEUM: No renal calculi are identified. There is no hydronephrosis. Again seen is a 1.3 cm cyst at the lower pole of the left kidney. LYMPH NODES: No retroperitoneal lymphadenopathy is identified in the abdomen or pelvis. VASCULATURE: The abdominal aorta is normal in caliber. MESENTERY/PERITONEUM: No free fluid. There is mild haziness of the mesentery. No masses. There is no free intraperitoneal gas. STOMACH: The stomach is markedly distended with fluid and debris. SMALL BOWEL: There is mild distention of fluid-filled small bowel loops. There is probable mild wall thickening of several loops of small bowel. Evaluation is limited by lack of intravenous and oral contrast material. COLON: The colon is filled with fluid. No wall thickening is seen. There is diverticulosis of the sigmoid colon, without evidence of diverticulitis. APPENDIX: Normal. URINARY BLADDER/PELVIC ORGANS: The urinary bladder is collapsed, limiting evaluation. The prostate is normal in size. BONES / SOFT TISSUES: There is mild degenerative disc disease of the spine. CT/CT abdomen pelvis wo IV con IMPRESSION: Fluid distention of the stomach, small bowel, and colon. There is a suggestion of mild wall thickening of several loops of small bowel, and there is mild infiltration of the mesentery. Findings are suspicious for gastroenteritis. Electronically signed by: George Oquendo MD 11/29/2024 09:33 AM EDT
[2024-11-29 07:33] VITALS: BP 121/81; PULSE 106; RESP 18; TEMP 36.7; O2SAT 97; BMI 26.8
--- OUTSIDE RECORDS SUMMARY | 2024-11-29 07:45 | XMS_ITS | Data Portability ---
Author Organization [place] [facility], Allergy Address [address] [place] [address] Care Team Providers Care Matcher Operator Name Role Phone NAME, LINDSAY Primary Care Provider [phone] Assessment Encounter Date Assessment Date Assessment LastModified [...] CT, maxillofaci al, w/o contrast 2024 025 [email or web address] [facility] [place] [address], [place], [address], 5 15:43:34 Medication Orders None recorded. Patient TargetsNo targets recorded. Patient InstructionsNo instructions recorded. Reason for Referral None Reported. Problems Name Problem SNOMED Code Status Onset Date Resolution Date Notes Provider Name and Address Organization Details Recorded Time Allergic rhinitis 27592090 Active 2018 Perennial allergic rhinitis; Note: Date Diagnosed : 11/26/2018 12:00 PM (J30.89) Not Available [facility] 4 02:51:24 Deviated nasal septum 199605992 Active 2017 Deviated nasal septum; Note: Date Diagnosed : 05/09/2018 11:11 AM (J34.2) Not Available [facility] 4 02:51:18 Tinnitus of right ear 70128210377 08 Active 2017 Tinnitus, right ear; Note: Date Diagnosed : 01/16/2018 3:42 PM (H93.11) Not Available [facility] 4 02:51:19 Sensorine ural hearing loss of bilateral ears 828264214 Active 2017 Sensorine ural hearing loss, bilateral ; Note: Date Diagnosed : 01/16/2018 3:42 PM (H90.3) Not Available [facility] 4 02:51:21 Nasal congestio n 86245912 Active 2017 Nasal congestio n; Note: Date Diagnosed : 05/09/2018 11:11 AM (R09.81) Not Available [facility] 4 02:51:19 Dizziness and giddiness 190210202 Active 2017 Dizziness and giddiness ; Note: Date Diagnosed : 01/16/2018 3:42 PM (R42) Not Available [facility] 4 02:51:20 Headache 01716729 Active 2017 Headache; Note: Date Diagnosed : 05/09/2018 11:06 AM (R51) Not Available [facility] 4 02:51:20 Impacted cerumen of bilateral ears 79805287807 76294 Active 2024 MAXWELL DALY PA-C [address] [place],[facility], [place], [address] , [facility] 5 13:48:02 Seasonal allergic rhinitis 797765766 Active 2024 MAXWELL DALY PA-C [address] [place] [address], [place], [address] , [facility] 13:48:08 Non-aller gic rhinitis 85878303629 1 Active 2024 MAXWELL DALY PA-C [address] [place],[facility], [facility] [place], [address] , [facility] 13:48:08 Problem Notes None recorded. Procedures Surgical History Date Name Laterality Status Provider Name and Address Organization Details Recorded Time Cerumen removal without microscope bilat completed MAXWELL DALY PA-C [address] [place] [address], [place], [address], [facility] 09/16/2024 13:46:50 Imaging Results None recorded. Procedure Notes None recorded. Medical Equipment None Reported. Allergies Allergen ID Allergen Name Allergen Category Reaction Reaction Severity Criticality Documentation Date Start Date Code Code System Note Provider Name and Address Organization Details Recorded Time 224625 amoxicill in medicatio n other Not available Not available 01/09/2024 723 RxNorm React ion: unkno wn, unspe cifie d;; Not Available [facility] 4 01:20:48 404142 Product containin g penicilli n (product) medicatio n other Not available Not available 01/09/2024 68609 8001 SNOMED React ion: unkno wn, unspe cifie d;; Not Available [facility] 4 01:20:48 Medications Name Sig Start Date [...] mg tablet 01/16 completed Medicati on ID: [id number] D uration Value: 30 Reason: () Brand [...] mg tablet 09/16 completed Medicati on ID: [id number] D uration Value: 30 Brand Name: amlodipi [...] mg tablet 10/12 completed Medicati on ID: [id number] D uration Value: 30 Brand Name: carvedil [...] mg capsule 01/16 completed Medicati on ID: [id number] D uration Value: 30 Reason: () Brand [...] mg tablet 10/12 completed Medicati on ID: [id number] D uration Value: 10 Brand Name: Viagra [...] mg tablet 10/12 completed Medicati on ID: [id number] D uration Value: 5 Brand Name: levoflox [...] 24 hr 05/09 completed Medicati on ID: [id number] D uration Value: 30 Reason: () Brand [...] Lite Strips 01/16 completed Medicati on ID: [id number] D uration Value: 17 Reason: () Brand [...] Updated DateTime 09/16/2024 170.18 cm 27.9 kg/m2 01483.44 g Gail Hurt [place] - [facility] 09/16/2024 13:25:10 Social History None recorded. Functional Status None recorded. Mental Status None recorded. Family History Nothing Reported. Medical History No medical history recorded. Past Encounters Encounter ID Performer Location Encounter Start Date Encounter Closed Date Diagnosis/Indication Diagnosis SNOMED-CT Code Diagnosis ICD10 Code Diagnosis Note [id number] MAXWELL DALY PA-C [facility] [address] [address] 09/16/2024 13:13:53 09/16/2024 13:45:47 Nasal congestion 87276237 R09.81 Allergic rhinitis 017772 04 J30.89 Impacted c erumen of bilateral ears 6312409173 264498 H61.23 Health Concerns Section Related Observation LastModified by Organization Detai ls LastModified Time None Recorded Concern Status LastModified by Organization Details LastModified Time None Recorded Advance Directives Directive None Recorded Payers Encounter Date Sequence Insurance Name Policy Number Policy Ortiz Covered Member ID Ortiz Member ID Guarantor Name 09/16/2024 1 [facility] - DOS ON OR AFTER 2022 - MEDICARE ADVANTAGE [place] (MEDICARE REPLACEMENT/ADV ANTAGE - PPO) Bobby Velasco [id number] Bobby Velasco Notes Date Note Type Note [...] in his ears bilaterally. MAXWELL DALY PA-C [address] [place] [address], [place], [address], [facility] - [facility] 09/16/2024 13:49:51
--- OUTSIDE RECORDS SUMMARY | 2024-11-29 07:45 | XMS_ITS | Clinical Summary ---
Author Organization 175 [facility] Address [address] [place] [address] Phone Care Team Providers Care Contracting Engineer Name Role Phone Ashley Frankel MD Primary Care Provider [phone]- [phone] Allergies Active Allergy Reactions Criticality Noted Date Comments Clindamycin Anaphylaxis,Unknown High 03/29/2012 Doxycycline Diarrhea,Unknown Low 01/31/2023 Penicillins Anaphylaxis,Unknown High 04/06/2012 Other reaction(s): UNKNOWN REACTION-CHILDHOOD Encounters Date Type Department Care Team Description 10/12/2024 3:45 AM EST - 10/12/2024 9:39 AM EST Emergency [facility] Emergency [address] [place] [address] Smith Quan MD Urinary tract infection with hematuria, site unspecified (Primary Dx); Kidney stone; Acute urinary tract infection Discharge Disposition: Home or Self Care from Last 3 Months Medical History Medical History Date Comments Hypertension Diabetes mellitus ([facility]/HCC) Social History Tobacco Use Types Packs/Day Years [...] 9:00 AM EDT Consult Orthopedic Surgery - [place] [address] [facility] [address] [place] [address] Raheel Slater, PORTER [address] [address] Health Maintenance Due Date Last Done Comments [...] Influencers of Health Screening 08/09/2024 RSV Immunization Adult Patients (1 - Risk 60-74 years 1-dose series) [...] K/mcL LAB HEMETOLOGY METHOD 10/12/2024 12:01 AM [facility] RBC 4.60 4.50 - 5.50 M/mcL LAB HEMETOLOGY METHOD 10/12/2024 12:01 AM [facility] Hemoglobin 14.1 13.5 - 17.5 g/dL LAB HEMETOLOGY METHOD 10/12/2024 12:01 AM [facility] Hematocrit 42.7 42.0 - 54.0 % LAB HEMETOLOGY METHOD 10/12/2024 12:01 AM [facility] MCV 92.2 79.0 - 98.0 FL LAB HEMETOLOGY METHOD 10/12/2024 12:01 AM [facility] MCH 30.5 27.0 - 32.0 pcg LAB HEMETOLOGY METHOD 10/12/2024 12:01 AM [facility] MCHC 33.0 32.0 - 37.0 g/dL LAB HEMETOLOGY METHOD 10/12/2024 12:01 AM [facility] RDW 12.8 11.0 - 15.0 % LAB HEMETOLOGY METHOD 10/12/2024 12:01 AM [facility] Platelets 327 130 - 400 K/mcL LAB HEMETOLOGY METHOD 10/12/2024 12:01 AM [facility] MPV 10.4 7.0 - 11.0 FL LAB HEMETOLOGY METHOD 10/12/2024 12:01 AM [facility] NRBC 0.0 <1.0 % LAB HEMETOLOGY METHOD 10/12/2024 12:01 AM [facility] NRBC Absolute 0.00 <0.10 K/mcL LAB HEMETOLOGY METHOD 10/12/2024 12:01 AM [facility] Neutrophils Relative 66.8 % LAB HEMETOLOGY METHOD 10/12/2024 12:01 AM [facility] Lymphocytes Relative 21.5 % LAB HEMETOLOGY METHOD 10/12/2024 12:01 AM [facility] Monocytes Relative 9.6 % LAB HEMETOLOGY METHOD 10/12/2024 12:01 AM [facility] Eosinophils Relative 1.2 % LAB HEMETOLOGY METHOD 10/12/2024 12:01 AM [facility] Basophils Relative 0.4 % LAB HEMETOLOGY METHOD 10/12/2024 12:01 AM [facility] Immature Granulocytes Relative 0.5 % LAB HEMETOLOGY METHOD 10/12/2024 12:01 AM [facility] Neutrophils Absolute 5.12 1.50 - 7.00 K/mcL LAB HEMETOLOGY METHOD 10/12/2024 12:01 AM [facility] Lymphocytes Absolute 1.65 1.00 - 5.00 K/mcL LAB HEMETOLOGY METHOD 10/12/2024 12:01 AM EST [facility] Monocytes Absolute 0.74 0.20 - 1.00 K/[facility] LAB HEMETOLOGY METHOD 10/12/2024 12:01 AM [facility] Eosinophils Absolute 0.09 0.00 - 0.50 K/[facility] LAB HEMETOLOGY METHOD 10/12/2024 12:01 AM [facility] Basophils Absolute 0.03 0.00 - 0.20 K/[facility] LAB HEMETOLOGY METHOD 10/12/2024 12:01 AM [facility] Immature Granulocytes Absolute 0.04(H) 0.00 - 0.03 K/mcL LAB HEMETOLOGY METHOD 10/12/2024 12:01 AM [facility] Blood Venous blood specimen / Unknown Venipuncture / Unknown 10/11/2024 11:18 PM EST 10/11/2024 11:44 PM EST us Smith Quan MD LAB BLOOD ORDERABLES Final Result [facility] [address] [place] [address], * (ABNORMAL) Comprehensive metabolic panel (10/11/2024 11:18 PM EST) Sodium 138 133 - 145 mmol/L LAB CHEMISTRY METHOD 10/12/2024 12:38 AM [facility] Potassium 4.3 3.5 - 5.5 mmol/L LAB CHEMISTRY METHOD 10/12/2024 12:38 AM [facility] Chloride 107 96 - 110 mmol/L LAB CHEMISTRY METHOD 10/12/2024 12:38 AM [facility] CO2 30 21 - 32 mmol/L LAB CHEMISTRY METHOD 10/12/2024 12:38 AM [facility] Anion Gap 1(L) 3 - 11 LAB CHEMISTRY METHOD 10/12/2024 12:38 AM [facility] Glucose 126(H) 70 - 100 mg/dL LAB CHEMISTRY METHOD 10/12/2024 12:38 AM [facility] BUN 15 5 - 25 mg/dL LAB CHEMISTRY METHOD 10/12/2024 12:38 AM [facility] Creatinine 1.15 0.70 - 1.30 mg/dL LAB CHEMISTRY METHOD 10/12/2024 12:38 AM [facility] eGFR 73 >=60 mL/min/1. 73m2 LAB CHEMISTRY METHOD 10/12/2024 12:38 AM [facility] Comment:Calculation based on the??Chronic Kidney Disease Epidemiology Collaboration (CKD-EPI) equation refit??without adjustment for race. BUN/Creatinine Ratio 13.0 LAB CHEMISTRY METHOD 10/12/2024 12:38 AM [facility] Calcium 9.8 8.5 - 10.5 mg/dL LAB CHEMISTRY METHOD 10/12/2024 12:38 AM [facility] AST (SGOT) 24 10 - 42 unit/L LAB CHEMISTRY METHOD 10/12/2024 12:38 AM [facility] ALT (SGPT) 22 10 - 60 unit/L LAB CHEMISTRY METHOD 10/12/2024 12:38 AM [facility] Alkaline Phosphatase 100 42 - 121 unit/L LAB CHEMISTRY METHOD 10/12/2024 12:38 AM [facility] Total Protein 6.9 6.0 - 8.0 g/dL LAB CHEMISTRY METHOD 10/12/2024 12:38 AM [facility] Albumin 3.9 3.2 - 5.0 g/dL LAB CHEMISTRY METHOD 10/12/2024 12:38 AM [facility] Total Bilirubin 0.6 0.0 - 1.4 mg/dL LAB CHEMISTRY METHOD 10/12/2024 12:38 AM [facility] Blood Venous blood specimen / Unknown Venipuncture / Unknown 10/11/2024 11:18 PM EST 10/11/2024 11:44 PM EST us Smith Quan MD LAB BLOOD ORDERABLES Final Result [facility] [address] [place] [address], [place] [phone] * (ABNORMAL) Urinalysis with reflex microscopic and culture (10/11/2024 10:34 PM EST) Specific [place] Urine 1.014 1.003 - 1.030 LAB URINALYSIS - AUTOMATED METHOD 10/12/2024 6:50 AM [facility] pH, Urine 5.5 5.0 - 8.0 pH LAB URINALYSIS - AUTOMATED METHOD 10/12/2024 6:50 AM [facility] Leukocytes, Urine Moderate(A) Negative LAB URINALYSIS - AUTOMATED METHOD 10/12/2024 6:50 AM [facility] Nitrite, Urine Positive(A) Negative LAB URINALYSIS - AUTOMATED METHOD 10/12/2024 6:50 AM [facility] Protein, Urine 300(A) <=Trace mg/dL LAB URINALYSIS - AUTOMATED METHOD 10/12/2024 6:50 AM [facility] Glucose, Urine Negative Negative mg/dL LAB URINALYSIS - AUTOMATED METHOD 10/12/2024 6:50 AM [facility] Ketones, Urine Negative Negative mg/dL LAB URINALYSIS - AUTOMATED METHOD 10/12/2024 6:50 AM [facility] Urobilinogen, Urine 1.0 0.2 - 1.0 mg/dL LAB URINALYSIS - AUTOMATED METHOD 10/12/2024 6:50 AM [facility] Bilirubin, Urine Small(A) Negative LAB URINALYSIS - AUTOMATED METHOD 10/12/2024 6:50 AM EST [facility] Blood, Urine Large(A) Negative LAB URINALYSIS - AUTOMATED METHOD 10/12/2024 6:50 AM [facility] RBC, Urine 1,724.4(H) 0 - 4 /HPF LAB URINALYSIS - AUTOMATED METHOD 10/12/2024 6:50 AM [facility] Comment:This is an appended report. These results have been appended to a previously preliminary verified report. WBC, Urine 48.9(H) 0 - 4 /HPF LAB URINALYSIS - AUTOMATED METHOD 10/12/2024 6:50 AM [facility] Comment:This is an appended report. These results have been appended to a previously preliminary verified report. Squamous Epithelial, Urine >100(H) 0 - 60 /LPF LAB URINALYSIS - AUTOMATED METHOD 10/12/2024 6:50 AM [facility] Comment:This is an appended report. These results have been appended to a previously preliminary verified report. Crystals, Urine LT CALCIUM OXALATE /LPF LAB URINALYSIS - AUTOMATED METHOD 10/12/2024 6:50 AM [facility] Comment:Corrected result: Pr eviously reported on 10/11/2024 at 2351 EST. Bacteria, Urine Negative Negative /HPF LAB URINALYSIS - AUTOMATED METHOD 10/12/2024 6:50 AM [facility] Comment: Edited result: Previously reported as Negative /HPF on 10/11/2024 at 2351 EST. This is an appended report. ??These results have been appended to a previously final verified report. Hyaline Casts, Urine 13.6(H) 0 - 3 /LPF LAB URINALYSIS - AUTOMATED METHOD 10/12/2024 6:50 AM [facility] Comment:This is an appended report. These results have been appended to a previously preliminary verified report. Urine Urine specimen obtained by clean catch procedure / Unknown Non-blood Collection / Unknown 10/11/2024 10:34 PM EST 10/11/2024 11:07 PM EST Smith Quan MD LAB URINE ORDERABLES Edited Result - Final Performing Organization Address [facility] Co de Phone Number [facility] [address] [place] [address], [place] [phone] * Carlin urine culture tube (10/11/2024 10:34 PM EST) Extra Tube Hold for add-ons. 10/12/2024 1:11 AM EST [facility] Comment:Auto resulted. Urine Urine specimen obtained by clean catch procedure / Unknown Non-blood Collection / Unknown 10/11/2024 10:34 PM EST 10/11/2024 11:07 PM EST Smith Quan MD LAB URINE ORDERABLES Final Result Performing Organization Address [facility] Co de Phone Number [facility] [address] [place] [address], [place] [phone] * Culture urine (10/11/2024 10:34 PM EST) Pathologist [facility] Culture, Urine No growth 10/13/2024 10:54 AM EST [facility] Urine Urine specimen obtained by clean catch procedure / Unknown Non-blood Collection / Unknown 10/11/2024 10:34 PM EST 10/11/2024 11:52 PM EST Smith Quan MD LAB MICROBIOLOGY - GENERAL ORDERABLES Final Result Performing Organization Address [facility] Co de Phone Number [facility] [address] [place] [address], [place] [phone] from Last 3 Months Insurance , [address] [place] [address] [employer] MED[employer] Member Subscriber Plan / Payer (Ef fective 2023-Present) Name:Bobby Velasco Relation to Subscriber:Self Name:Bobby Velasco Payer ID:[id number] Group ID:[id number] Type:Not on file Address: [place] [address] [address] [address] Care Teams Contracting Engineer Relationship Specialty Start Date End Date Marlys, MD Ashley [address] [place] [id number] PCP - General Family Medicine 08/09/24
--- NOTE | 2024-11-29 08:39 | ED.GENADULT ---
HPI - General Adult General Chief complaint: General Medical Stated complaint: Dizzy Stomach Pain Etc Time Seen by Provider: 11/29/24 08:21 Source: patient Mode of arrival: ambulatory Limitations: no limitations History of Present Illness ED Provider: ALAINA EUBANKS PA-C HPI narrative: 59 year old male with pmhx significant for hypertension, diabetes, asthma, GERD presents to the ED today for evaluation of abdominal cramping and loose stools since last night. Patient was evaluated in our ED last night for dizziness and elevated blood pressure. His workup was unremarkable and he was eventually discharged home late last night. On returning home, he reports eating rice and chicken. Shortly after this began to have lower abdominal cramping and 2 episodes of loose stools. No blood noted in his stool. He reports a family member at home ate the same meal. He does not believe that they have similar symptoms. Denies associated nausea, vomiting, urinary symptoms, flank pain. Denies any other known sick contacts. No recent travel outside the [place] Related Data Home Medications ?Medication ?Instructions ?Recorded ?Confirmed aspirin 81 mg tablet,delayed 81 mg PO DAILY 08/04/20 09/30/24 release blood sugar diagnostic (FreeStyle #10 ea 06/22/21 03/22/24 Lite Strips) lancets 33 gauge (TRUEplus Lancets) #100 ea 06/22/21 03/22/24 chlorthalidone 25 mg tablet 25 mg PO DAILY 06/09/23 09/30/24 hydroxyzine HCl 25 mg tablet 25 mg PO QID PRN Anxiety 02/09/24 09/30/24 trazodone 50 mg tablet 50 mg PO BEDTIME PRN Insomnia 02/09/24 09/30/24 fluticasone propionate 50 2 spray intranasal DAILY PRN 09/30/24 09/30/24 mcg/actuation nasal Allergy Symptoms spray,suspension tramadol 50 mg tablet 50 mg PO BEDTIME PRN Pain 09/30/24 09/30/24 atorvastatin 80 mg tablet 80 mg PO DAILY 10/01/24 10/01/24 Previous Rx's ?Medication ?Instructions ?Recorded acetaminophen 500 mg tablet 1,000 mg (2 x 500 mg) PO Q6H PRN 12/16/23 (Tylenol Extra Strength) fever or pain #20 tabs famotidine 40 mg tablet 40 mg PO DAILY PRN for heartburn 05/08/24 #90 tabs amlodipine 10 mg tablet 10 mg PO DAILY #90 tabs 06/24/24 lisinopril 40 mg tablet 40 mg PO DAILY #90 tabs 07/01/24 meclizine 25 mg tablet 25 mg PO BID PRN dizziness #14 tabs 07/19/24 albuterol sulfate 90 mcg/actuation 2 puff inhalation Q6H PRN dyspnea 11/19/24 aerosol inhaler 30 days #8.5 grams cetirizine 10 mg tablet (Zyrtec) 10 mg PO DAILY PRN Allergies 30 11/19/24 days #30 tabs docusate sodium 100 mg capsule 100 mg PO .qhs #30 caps 11/19/24 (Colace) fluticasone propionate 50 2 spray intranasal DAILY 30 days 11/19/24 mcg/actuation nasal #15.8 mL spray,suspension sennosides 8.6 mg capsule (senna) 17.2 mg (2 x 8.6 mg) PO BEDTIME 11/19/24 PRN constipation #60 caps terazosin 5 mg capsule 5 mg PO BEDTIME 90 days #90 caps 11/19/24 ondansetron 4 mg disintegrating 4 mg PO DAILY PRN nausea and 11/29/24 tablet vomiting 5 days #10 tabs Allergies Allergy/AdvReac Type Severity Reaction Status Date / Time amoxicillin [AMOXICILLIN] Allergy Severe ANAPHYLAXIS Verified 11/29/24 07:35 Penicillins Allergy Severe UNKNOWN Verified 11/29/24 07:35 REACTION-CHILDHOOD doxycycline [From VIBRAMYCIN] AdvReac Mild DIARRHEA Verified 11/29/24 07:35 Clindamycin HCl Allergy Severe Anaphylaxis Uncoded 11/19/24 09:10 Review of Systems Review of Systems: Yes all other systems are reviewed and are negative [facility] Past Medical History Attestation statement: The following information was validated with the patient. Source: old records reviewed and nursing notes reviewed Medical History Constipation Opacity of lung on imaging study Pre-op examination GERD (gastroesophageal reflux disease) Orchialgia Weak urinary stream Asthma Nasal polyps Diabetes HTN (hypertension) Pulmonary nodules Surgical History History of esophagogastroduodenoscopy (EGD) Hx of colonoscopy H/O wrist surgery Family History Family History Father Diabetes Hypertension Mother Hypertension Hyperlipidemia Brother Hypertension Family/Other Kidney stones Prostate cancer Bladder cancer Renal cancer Social History Social History Household Members: None Housing: Apartment Alcohol intake: former Patient Tobacco Use Status: Former Tobacco user Tobacco use type: Cigarette Years Smoked: 30 years Advance Directives: No Advance Directives Information Provided: No service: No Physical Exam ED Vital Signs: Vital Signs - 24 hr 11/29/24 07:33 11/29/24 11:34 11/29/24 13:13 Temperature 98.1 F 98.0 F 98.0 F Pulse Rate 106 H 63 63 Respiratory Rate 18 14 14 Blood Pressure 121/81 131/76 131/76 Pulse Oximetry 97 98 98 Oxygen Delivery Method Room Air Room Air Room Air BMI result Body Mass Index 26.8 Patient initially tachycardic to 106 on arrival. Vitals otherwise WNL. Afebrile. General: Well appearing, in no acute distress. Skin: Warm, dry, intact. No rashes or lesions. Head: Normocephalic, atraumatic. EENT: Hearing is intact b/l. Conjunctiva clear. PERRLA. EOM intact. Moist mucous membranes.? Cardiac: Chest wall symmetric. RRR Lungs: Normal respiratory effort without accessory muscle use. CTA bilaterally Abdomen: Soft, nondistended, minimally tender to palpation of epigastric region. No rebound or guarding. Active bowel sounds x4. No CVAT. Back: No midline spinous or paraspinal tenderness. No step off deformity. Neuro: AOx3. Normal speech. Ambulating with steady gait. Course Course Course Narrative: CBC showing leukocytosis with left shift. Normocytic anemia, chronic when compared to priors. H&H above transfusion threshold. Chemistry without acute electrolyte abnormality requiring intervention. No NESSA. Random glucose 200. Liver function at baseline. CRP WNL. Lipase WNL. Urine without infection. Negative COVID, flu, RSV. CT abdomen/pelvis showing marked distention of stomach with fluid and debris. mild distention of fluid-filled small bowel loops with probable mild wall thickening of several loops of small bowel. the colon is fluid filled without noted wall thickening. Diverticulosis of the sigmoid colon without evidence of diverticulitis. > imaging findings suggestive of gastroenteritis. Patient treated with 1L of IV fluids. He is nontoxic-appearing, feels well. No further episodes of diarrhea. I did repeat CBC after fluid resuscitation, slight improvement in leukocytosis to 17.5 however crp is wnl. he is tolerating PO. will discharge him with supportive treatment. Patient has remained stable throughout ED visit today. Discussed worrisome signs and symptoms and when to return to the ED. All questions answered at this time. Patient is agreeable with disposition and stable for discharge. Medications Administered Discontinued Medications Generic Name Dose Route Start Last Admin Trade Name Freq PRN Reason Stop Dose Admin Sodium Chloride 1,000 mls @ 999 mls/hr 11/29/24 10:00 11/29/24 10:36 Ns IV 11/29/24 11:00 999 mls/hr .Q1H1M ZARIA Administration Medical Decision Making Medical Decision Making [facility] Narrative: 59 year old male with pmhx significant for hypertension, diabetes, asthma, GERD presents to the ED today for evaluation of abdominal cramping and loose stools since last night. Tachycardic to 106. Vitals are otherwise WNL. He is nontoxic-appearing and in no acute distress. On exam, abdomen is soft, nondistended, minimally tender to palpation of epigastric region. No rebound or guarding. Active bowel sounds x4. No CVAT. Differential diagnoses: Gastroenteritis, gastritis, diverticulitis, diverticulosis, UTI, IUP, constipation Abdominal exam without peritoneal signs. No evidence of acute abdomen at this time. Well appearing. Low suspicion for acute hepatobiliary disease (including acute cholecystitis), acute infectious processes (pneumonia, hepatitis, pyelonephritis, PID, TOA), vascular catastrophe, bowel obstruction or viscus perforation, ovarian cyst/ rupture/ torsion, ectopic, testicular torsion, orchitis, epidydymitis. Presentation not consistent with other acute, emergent causes of abdominal pain at this time. Plan: labs, UA, CT AP, reassessment Differential Diagnosis Differential Diagnoses: The differential diagnosis associated with the presentation includes As above Admission/Observation Not indicated Lab Data [facility] Lab Attestation statement: I reviewed the patient's lab results. As above 11/29/24 11:55 11/29/24 09:27 Labs: Lab Results 11/29/24 11/29/2411/29/25 Range/Units 09:27 11:55 12:58 WBC 18.0 H 17.5 H (4.8-10.8) X10*3/uL RBC 4.40 L 4.15 L (4.60-5.80) X10*6/uL Hgb 13.3 L 12.9 L (14.0-18.0) g/dl Hct 40.2 L 37.8 L (42.0-52.0) % MCV 91.4 91.1 (80.0-98.0) fL MCH 30.2 31.1 (27.0-33.0) pg MCHC 33.1 34.1 (31.0-36.0) g/dl RDW 12.5 12.7 (11.0-16.0) % Plt Count 266 240 (160-400) X10*3/uL MPV 10.2 10.1 (9.4-12.4) fL Immature Gran % (Auto) 0.4 0.6 H (0.0-0.4) % Neut % (Auto) 89.0 H 86.7 H (45-73) % Lymph % (Auto) 4.2 L 5.8 L (20-40) % [place] % (Auto) 5.4 5.9 (2-11) % Eos % (Auto) 0.8 0.8 (0-4) % Baso % (Auto) 0.2 0.2 (0-2) % Lymph # (Auto) 0.8 L 1.0 L (1.2-4.9) X10*3/uL [place] # (Auto) 1.0 1.0 (0.1-1.2) X10*3/uL Eos # (Auto) 0.1 0.1 (0.0-0.4) X10*3/uL Baso # (Auto) 0.0 0.0 (0.0-0.2) X10*3/uL Abs Immat Gran (auto) 0.07 H 0.10 H (0.00-0.03) X10*3/uL Absolute Neuts (auto) 16.0 H 15.2 H (2.0-8.3) x10*3/uL Absolute Nucleated RBC 0.000 0.000 (0.0-0.012) X10*3/uL Nucleated RBC % (auto) 0.0 0.0 (0.0-0.2) /100WBC Sodium 142 (135-145) mmol/L Potassium 4.0 (3.3-5.1) mmol/L Chloride 111 H (96-108) mmol/L Carbon Dioxide 27 (22-29) mmol/L Anion Gap 8 L (12-20) BUN 15 (9-16) mg/dL Creatinine 1.24 (0.5-1.4) mg/dL Estim Creat Clear Calc 59.2 Estimated GFR 59 Random Glucose 200 H (60-115) mg/dL Calcium 9.1 (8.4-10.2) mg/dL Magnesium 2.1 (1.6-2.6) mg/dL Total Bilirubin 0.8 (0.0-1.0) mg/dL Direct Bilirubin 0.3 (0.0-0.5) mg/dL AST 20 (5-37) U/L ALT 10 (0-40) U/L Alkaline Phosphatase 92 (39-117) U/L C-Reactive Protein 0.27 (< or = 0.50) mg/dL Total Protein 6.6 (6.5-8.0) g/dL Albumin 3.9 (3.5-5.0) g/dL Lipase 22 (8-78) U/L Urine Color Yellow Urine Appearance Clear Urine pH 8.0 (5.0-9.0) Ur Specific [place] 1.015 (1.005-1.025) Urine Protein Negative (Neg-Trace) mg/dL Urine Glucose (UA) Negative (Negative) mg/dL Urine Ketones Negative (Negative) mg/dL Urine Blood Negative (Negative) Urine Nitrite Negative (Negative) Ur Leukocyte Esterase Negative (Negative) Influenza Type A (PCR) NEGATIVE (Negative) Influenza Type B (PCR) NEGATIVE (Negative) RSV RNA Qual (PCR) NEGATIVE (Negative) SARS-CoV-2 RNA (RT-PCR) NEGATIVE (Negative) Independent Interpretation I performed an independent interpretation of an: CT Scan Interpretation: CT abdomen/pelvis without evidence of bowel obstruction Radiology Impression Discussion of test interpretation with radiology: I have reviewed the radiologist's reading. Radiologist Impression: Procedure(s): CT abdomen pelvis wo IV con Accession Number(s): [id number] cc: Ashley Frankel MD; Alaina Eubanks~ Report Number: [id number]: Total DLP = 449.00 mGy-cm EXAMINATION: CT ABDOMEN PELVIS WITHOUT IV CONTRAST HISTORY: lower abd cramping diarrhea COMPARISON: Comparison is made with the prior examination dated 12/27/2021. TECHNIQUE: CT scan of the abdomen and pelvis was performed without contrast using standard departmental protocol. Coronal and sagittal reformatted images were generated and reviewed. Oral contrast material was not administered at the request of the referring physician. This CT exam was performed with one or more of the following dose reduction techniques: automated exposure control, adjustment of the mA and/or kV according to patient size, use of iterative reconstruction technique. DLP: 449 mGy-cm FINDINGS: LOWER CHEST: The visualized lung bases are clear. There is no pleural effusion. CARDIOVASCULATURE: The heart is normal in size. There is no pericardial effusion. LIVER: The liver is normal in size and contour. The liver has an unremarkable unenhanced appearance. GALLBLADDER / BILE DUCTS: The gallbladder is unremarkable. There is no intra or extrahepatic biliary ductal dilatation. SPLEEN: The spleen is normal in size and has an unremarkable unenhanced appearance. PANCREAS: The pancreas has an unremarkable unenhanced appearance. ADRENAL GLANDS: Unremarkable. KIDNEYS/RETROPERITONEUM: No renal calculi are identified. There is no hydronephrosis. Again seen is a 1.3 cm cyst at the lower pole of the left kidney. LYMPH NODES: No retroperitoneal lymphadenopathy is identified in the abdomen or pelvis. VASCULATURE: The abdominal aorta is normal in caliber. MESENTERY/PERITONEUM: No free fluid. There is mild haziness of the mesentery. No masses. There is no free intraperitoneal gas. STOMACH: The stomach is markedly distended with fluid and debris. SMALL BOWEL: There is mild distention of fluid-filled small bowel loops. There is probable mild wall thickening of several loops of small bowel. Evaluation is limited by lack of intravenous and oral contrast material. COLON: The colon is filled with fluid. No wall thickening is seen. There is diverticulosis of the sigmoid colon, without evidence of diverticulitis. APPENDIX: Normal. URINARY BLADDER/PELVIC ORGANS: The urinary bladder is collapsed, limiting evaluation. The prostate is normal in size. BONES / SOFT TISSUES: There is mild degenerative disc disease of the spine. CT/CT abdomen pelvis wo IV con IMPRESSION: Fluid distention of the stomach, small bowel, and colon. There is a suggestion of mild wall thickening of several loops of small bowel, and there is mild infiltration of the mesentery. Findings are suspicious for gastroenteritis. External Record Review External record reviewed: Inpatient record Prescription Management I considered prescription management with: Other (zofran) Social Determinants Patient?s care significantly limited by Social Determinants of Health including: Other Social Determinant of Health Critical Care Time Critical Care Time Critical Care Time: No Discharge Plan Discharge Clinical Impression: Gastroenteritis Patient Disposition: Home, Self-Care Instructions: Gastroenteritis (ED) Additional Instructions: Your lab workup today was reassuring.? Your urine test was negative for infection. Your symptoms are most consistent with a viral stomach bug, also known as gastroenteritis.? The treatment for this is supportive care. Symptoms usually resolve on their own in 48-72 hours.? You received intravenous fluids in ED today. The recommendation is rest and lots of oral hydration.? For the next 24 hours, stick to a RICHAR diet (bananas rice, applesauce, tea, and toast) Zofran is an anti-nausea medication. This has been sent to your pharmacy for you to take as needed for nausea.? You can also try over the counter Pepto Bismol or Imodium as needed for upset stomach and diarrhea.? Follow up with your primary care provider this week. If you develop new or worsening symptoms call 911 or come back to the ER for further evaluation. Prescriptions: New ondansetron 4 mg tablet,disintegrating 4 mg PO DAILY PRN (Reason: nausea and vomiting) 5 Days Qty: 10 0RF No Action famotidine 40 mg tablet 40 mg PO DAILY PRN (Reason: for heartburn) Qty: 90 4RF amlodipine 10 mg tablet 10 mg PO DAILY Qty: 90 3RF lisinopril 40 mg tablet 40 mg PO DAILY Qty: 90 3RF terazosin 5 mg capsule 5 mg PO BEDTIME 90 Days Qty: 90 1RF acetaminophen [Tylenol Extra Strength] 500 mg tablet 1,000 mg PO Q6H PRN (Reason: fever or pain) Qty: 20 0RF meclizine 25 mg tablet 25 mg PO BID PRN (Reason: dizziness) Qty: 14 0RF tramadol 50 mg tablet 50 mg PO BEDTIME PRN (Reason: Pain) fluticasone propionate 50 mcg/actuation spray,suspension 2 spray intranasal DAILY PRN (Reason: Allergy Symptoms) atorvastatin 80 mg tablet 80 mg PO DAILY aspirin 81 mg tablet,delayed release (DR/EC) 81 mg PO DAILY (DME) lancets [TRUEplus Lancets] 33 gauge misc See Rx Instructions Not Applicable TID Qty: 100 Rx Instructions: As directed (DME) FreeStyle Lite Strips Strip See Rx Instructions Not Applicable TID Qty: 10 Rx Instructions: As directed chlorthalidone 25 mg tablet 25 mg PO DAILY hydroxyzine HCl 25 mg tablet 25 mg PO QID PRN (Reason: Anxiety) trazodone 50 mg tablet 50 mg PO BEDTIME PRN (Reason: Insomnia) fluticasone propionate 50 mcg/actuation spray,suspension 2 spray intranasal DAILY 30 Days Qty: 15.8 11RF cetirizine [Zyrtec] 10 mg tablet 10 mg PO DAILY PRN (Reason: Allergies) 30 Days Qty: 30 10RF albuterol sulfate 90 mcg/actuation HFA aerosol inhaler 2 puff INHALATION Q6H PRN (Reason: dyspnea) 30 Days Qty: 8.5 11RF senna 8.6 mg capsule 17.2 mg PO BEDTIME PRN (Reason: constipation) Qty: 60 6RF docusate sodium [Colace] 100 mg capsule 100 mg PO .qhs Qty: 30 6RF Referrals: Ashley Frankel MD [Primary Care Provider] - Interventions: ED Discharge Assessment Last Done: 11/29/24 13:13 Discharge Date/Time: 11/29/24 13:15 Print Language: Pakistani
[2024-11-29 09:36] LABS: MANUAL DIFF FLAG NO
[2024-11-29 09:40] LABS: Basophils Percent Auto 0.2 % (0-2); Eosinophils Absolute Auto 0.1 X10*3/uL (0.0-0.4); Eosinophils Percent Auto 0.8 % (0-4); Hematocrit 40.2 % (42.0-52.0); Hemoglobin 13.3 g/dl (14.0-18.0); Imm Gran Abs Auto 0.07 X10*3/uL (0.00-0.03); Imm Gran Pct Auto 0.4 % (0.0-0.4); Lymphocytes Absolute Auto 0.8 X10*3/uL (1.2-4.9); Lymphocytes Percent Auto 4.2 % (20-40); Mean Corpuscular HGB Conc 33.1 g/dl (31.0-36.0); Mean Corpuscular Hemoglobin 30.2 pg (27.0-33.0); Mean Corpuscular Volume 91.4 fL (80.0-98.0); Mean Platelet Volume 10.2 fL (9.4-12.4); Monocytes Percent Auto 5.4 % (2-11); Platelet Count 266 X10*3/uL (160-400); Red Cell Distribution Width 12.5 % (11.0-16.0)
[2024-11-29 09:57] LABS: Alanine Aminotransferase 10 U/L (0-40); Albumin Level 3.9 g/dL (3.5-5.0); Alkaline Phosphatase 92 U/L (39-117); Anion Gap 8 (12-20); Aspartate Amino Transferase 20 U/L (5-37); Bilirubin Direct 0.3 mg/dL (0.0-0.5); Bilirubin Total 0.8 mg/dL (0.0-1.0); Blood Urea Nitrogen 15 mg/dL (9-16); Calcium 9.1 mg/dL (8.4-10.2); Carbon Dioxide 27 mmol/L (22-29); Chloride 111 mmol/L (96-108); Creatinine Clr Calc Pharmacy 59.2; Estimated Glomerular Filt Rate 59; Glucose Random 200 mg/dL (60-115); Lipase 22 U/L (8-78); Magnesium 2.1 mg/dL (1.6-2.6); Sodium 142 mmol/L (135-145); Total Protein 6.6 g/dL (6.5-8.0)
[2024-11-29 10:21] LABS: Influenza A PCR NEGATIVE (Negative); Influenza B PCR NEGATIVE (Negative); Resp Syncy Virus RNA Qual PCR NEGATIVE (Negative); SARS COV2 PCR INHOUSE NEGATIVE (Negative)
[2024-11-29] MEDS: 0.9 % Sodium Chloride 1,000 ML 999 ML IV (10:36)
[2024-11-29 11:34] VITALS: BP 131/76; PULSE 63; RESP 14; TEMP 36.7; O2SAT 98
[2024-11-29 11:59] LABS: Basophils Percent Auto 0.2 % (0-2); Eosinophils Absolute Auto 0.1 X10*3/uL (0.0-0.4); Eosinophils Percent Auto 0.8 % (0-4); Hematocrit 37.8 % (42.0-52.0); Hemoglobin 12.9 g/dl (14.0-18.0); Imm Gran Pct Auto 0.6 % (0.0-0.4); Lymphocytes Percent Auto 5.8 % (20-40); MANUAL DIFF FLAG NO; Mean Corpuscular HGB Conc 34.1 g/dl (31.0-36.0); Mean Corpuscular Hemoglobin 31.1 pg (27.0-33.0); Mean Corpuscular Volume 91.1 fL (80.0-98.0); Mean Platelet Volume 10.1 fL (9.4-12.4); Monocytes Percent Auto 5.9 % (2-11); Neutrophils Absolute Auto 15.2 x10*3/uL (2.0-8.3); Neutrophils Percent Auto 86.7 % (45-73); Platelet Count 240 X10*3/uL (160-400); Red Blood Count 4.15 X10*6/uL (4.60-5.80); Red Cell Distribution Width 12.7 % (11.0-16.0); White Blood Count 17.5 X10*3/uL (4.8-10.8)
[2024-11-29 12:52] LABS: C Reactive Protein 0.27 mg/dL (< or = 0.50)
[2024-11-29 13:06] LABS: Appearance Urine Clear; Color Urine Yellow; Glucose Urine UA Negative (Negative); Leukocyte Esterase Urine Negative (Negative); Nitrite Urine Negative (Negative); Specific Gravity - Urine 1.015 (1.005-1.025); Urine Blood Negative (Negative); Urine Ketones Negative (Negative); Urine Protein Negative (Neg-Trace)
[2024-11-29 13:13] VITALS: BP 131/76; PULSE 63; RESP 14; TEMP 36.7; O2SAT 98
== END 2024-11-29 13:15 | disposition home or self-care (01) ==
PROVIDERS: Physician Assistant Medical; Emergency Provider Emergency Medicine; PCP Family Medicine
DX: K52.9 Noninfective gastroenteritis and colitis, unspecified (principal); R42 Dizziness and giddiness; I10 Essential (primary) hypertension; E11.9 Type 2 diabetes mellitus without complications; Z03.818 Encounter for observation for suspected exposure to other biological agents ruled out; Z79.899 Other long term (current) drug therapy
CPT/HCPCS: 0241U; 36415; 74176; 80048; 80076; 81003; 83690; 83735; 85025; 86140; 99284

== ENCOUNTER → 2024-11-29 | Outpatient (BNV) | payer OTHER, SELFPAY | PROVIDERS: Emergency Provider Emergency Medicine; PCP Family Medicine; Visit Provider Specialist | DX: R51.9 Headache, unspecified (principal); R10.30 Lower abdominal pain, unspecified | CPT/HCPCS: 70450; 74176 ==

== ENCOUNTER 2024-12-28 09:20 | Emergency (ER) | payer OTHER, SELFPAY ==
[2024-12-28 09:23] VITALS: BP 171/87; PULSE 101; RESP 16; TEMP 36.8; O2SAT 98; BMI 26.7
[2024-12-28 09:35] VITALS: BP 171/91; PULSE 92; RESP 16
[2024-12-28 09:36] VITALS: BP 163/89; PULSE 92; RESP 16
--- NOTE | 2024-12-28 09:37 | ECG_ITS ---
Test Reason : CHEST PAIN Blood Pressure : */* mmHG Vent. Rate : 81 BPM Atrial Rate : 81 BPM P-R Int : 150 ms QRS Dur : 102 ms QT Int : 398 ms P-R-T Axes : 68 76 60 degrees QTcB Int : 462 ms Normal sinus rhythm Normal ECG When compared with ECG of 28-Nov-2024 23:12, No significant change was found Referred By: Leeroy Paul Electronically Signed By: Joaquin Saunders
--- NOTE | 2024-12-28 09:38 | ED_ITS ---
HPI - General Adult General Chief complaint: General Medical Stated complaint: high blood pressure Time Seen by Provider: 12/28/24 09:27 Source: patient Mode of arrival: ambulatory Limitations: no limitations History of Present Illness HPI narrative: This is a 59 years old male with a history of chronic hypertension on lisinopril 40 mg daily and Norvasc 10 mg daily presented to the emergency department because elevated blood pressure at home he denies any chest pain shortness of breath denies any headache and denies any speech problem upper or lower extremity weakness Onset (ago): hour(s) (3) Radiation: non-radiation Severity: moderate Pain Consistency: constant Relieving factors: none Exacerbating factors: none Associated symptoms: denies other symptoms Related Data Home Medications ?Medication ?Instructions ?Recorded ?Confirmed aspirin 81 mg tablet,delayed 81 mg PO DAILY 08/04/20 09/30/24 release blood sugar diagnostic (FreeStyle #10 ea 06/22/21 03/22/24 Lite Strips) lancets 33 gauge (TRUEplus Lancets) #100 ea 06/22/21 03/22/24 chlorthalidone 25 mg tablet 25 mg PO DAILY 06/09/23 09/30/24 hydroxyzine HCl 25 mg tablet 25 mg PO QID PRN Anxiety 02/09/24 09/30/24 trazodone 50 mg tablet 50 mg PO BEDTIME PRN Insomnia 02/09/24 09/30/24 fluticasone propionate 50 2 spray intranasal DAILY PRN 09/30/24 09/30/24 mcg/actuation nasal Allergy Symptoms spray,suspension tramadol 50 mg tablet 50 mg PO BEDTIME PRN Pain 09/30/24 09/30/24 atorvastatin 80 mg tablet 80 mg PO DAILY 10/01/24 10/01/24 Previous Rx's ?Medication ?Instructions ?Recorded acetaminophen 500 mg tablet 1,000 mg (2 x 500 mg) PO Q6H PRN 12/16/23 (Tylenol Extra Strength) fever or pain #20 tabs famotidine 40 mg tablet 40 mg PO DAILY PRN for heartburn 05/08/24 #90 tabs amlodipine 10 mg tablet 10 mg PO DAILY #90 tabs 06/24/24 lisinopril 40 mg tablet 40 mg PO DAILY #90 tabs 07/01/24 meclizine 25 mg tablet 25 mg PO BID PRN dizziness #14 tabs 07/19/24 albuterol sulfate 90 mcg/actuation 2 puff inhalation Q6H PRN dyspnea 11/19/24 aerosol inhaler 30 days #8.5 grams cetirizine 10 mg tablet (Zyrtec) 10 mg PO DAILY PRN Allergies 30 11/19/24 days #30 tabs docusate sodium 100 mg capsule 100 mg PO .qhs #30 caps 11/19/24 (Colace) fluticasone propionate 50 2 spray intranasal DAILY 30 days 11/19/24 mcg/actuation nasal #15.8 mL spray,suspension sennosides 8.6 mg capsule (senna) 17.2 mg (2 x 8.6 mg) PO BEDTIME 11/19/24 PRN constipation #60 caps terazosin 5 mg capsule 5 mg PO BEDTIME 90 days #90 caps 11/19/24 ondansetron 4 mg disintegrating 4 mg PO DAILY PRN nausea and 11/29/24 tablet vomiting 5 days #10 tabs Allergies Allergy/AdvReac Type Severity Reaction Status Date / Time amoxicillin [AMOXICILLIN] Allergy Severe ANAPHYLAXIS Verified 12/28/24 09:26 Penicillins Allergy Severe UNKNOWN Verified 12/28/24 09:26 REACTION-CHILDHOOD doxycycline [From VIBRAMYCIN] AdvReac Mild DIARRHEA Verified 12/28/24 09:26 Clindamycin HCl Allergy Severe Anaphylaxis Uncoded 11/19/24 09:10 Review of Systems 2 Constitutional: Constitutional: Reports no additional constitutional complaints Eyes: Eyes: Reports no additional eye complaints Cardiovascular: Cardiovascular: Reports no additional cardiovascular complaints Gastrointestinal: Gastrointestinal: Reports no additional gastrointestinal complaints Neurologic: Reports system reviewed and no additional complaints, except as documented [facility] Past Medical History Medical History Constipation Opacity of lung on imaging study Pre-op examination GERD (gastroesophageal reflux disease) Orchialgia Weak urinary stream Asthma Nasal polyps Diabetes HTN (hypertension) Pulmonary nodules Surgical History History of esophagogastroduodenoscopy (EGD) Hx of colonoscopy H/O wrist surgery Family History Family History Father Diabetes Hypertension Mother Hypertension Hyperlipidemia Brother Hypertension Family/Other Kidney stones Prostate cancer Bladder cancer Renal cancer Social History Social History Household Members: None Housing: Apartment Alcohol intake: former Patient Tobacco Use Status: Former Tobacco user Tobacco use type: Cigarette Years Smoked: 30 years Advance Directives: No Advance Directives Information Provided: No service: No Physical Exam ED Vital Signs: Vital Signs - 24 hr 12/28/24 09:23 12/28/24 09:35 12/28/24 09:36 Temperature 98.3 F Pulse Rate 101 H 92 92 Respiratory Rate 16 16 16 Blood Pressure 171/87 H 171/91 H 163/89 H Pulse Oximetry 98 Oxygen Delivery Method Room Air 12/28/24 10:00 Temperature 98.3 F Pulse Rate 82 Respiratory Rate 16 Blood Pressure 146/82 H Pulse Oximetry Oxygen Delivery Method Room Air BMI result Body Mass Index 26.7 No acute distress comfortable in the stretcher Const General: cooperative and comfortable Nutritional Appearance: average body habitus Orientation/consciousness: patient oriented x3 Limitations: no limitations HENMT Head: Yes normal to inspection General nose exam: Normal external nose present Face and sinus: Yes normal facial exam Neck Neck: Yes normal visual inspection Chest Chest palpation & inspection: normal inspection of the chest Resp Effort & Inspection: normal respiratory effort Auscultation: clear to auscultation bilaterally Cardio Jugular venous distension: no JVD Rate: regular rate Rhythm: regular rhythm GI Inspection: Yes normal to inspection Palpation (GI): Soft to palpation, not firm, nontender and no guarding Percussion: Yes normal to percussion Auscultation: normal bowel sounds Skin General skin exam: no rashes or lesions noted Lesions: no lesions Rashes: no rashes Neuro General: patient oriented x3 Cranial nerves: Yes CN's II-XII intact bilaterally Gait exam (Neuro): Normal gait present Motor exam (neuro): 5/5 motor strength present throughout and Pronator motor function not present Course Reevaluation(s) Reevaluation #1: Re-examination of the patient is completely asymptomatic his blood pressure is 146/82 he wants to be discharged see labs are normal Time: 11:08 Medical Decision Making Medical Decision Making MDM Narrative: Patient presented to the emergency room complaining of elevated blood pressure he has chronic hypertension right now the blood pressure is 163/89, we will Differential Diagnosis Differential Diagnoses: The differential diagnosis associated with the presentation includes HTN urgency/HTN/ACS Admission/Observation Consideration of admission/observation: Escalation of care including admission/observation considered Lab Data MDM Lab Attestation statement: I reviewed the patient's lab results. 12/28/24 09:43 12/28/24 09:43 Labs: Lab Results 12/28/24 Range/Units 09:43 WBC 4.3 L (4.8-10.8) X10*3/uL RBC 4.59 L (4.60-5.80) X10*6/uL Hgb 13.9 L (14.0-18.0) g/dl Hct 41.5 L (42.0-52.0) % MCV 90.4 (80.0-98.0) fL MCH 30.3 (27.0-33.0) pg MCHC 33.5 (31.0-36.0) g/dl RDW 12.6 (11.0-16.0) % Plt Count 243 (160-400) X10*3/uL MPV 10.3 (9.4-12.4) fL Immature Gran % (Auto) 0.2 (0.0-0.4) % Neut % (Auto) 64.8 (45-73) % Lymph % (Auto) 23.0 (20-40) % Bremer % (Auto) 9.9 (2-11) % Eos % (Auto) 1.4 (0-4) % Baso % (Auto) 0.7 (0-2) % Lymph # (Auto) 1.0 L (1.2-4.9) X10*3/uL Bremer # (Auto) 0.4 (0.1-1.2) X10*3/uL Eos # (Auto) 0.1 (0.0-0.4) X10*3/uL Baso # (Auto) 0.0 (0.0-0.2) X10*3/uL Abs Immat Gran (auto) 0.01 (0.00-0.03) X10*3/uL Absolute Neuts (auto) 2.8 (2.0-8.3) x10*3/uL Absolute Nucleated RBC 0.000 (0.0-0.012) X10*3/uL Nucleated RBC % (auto) 0.0 (0.0-0.2) /100WBC Sodium 143 (135-145) mmol/L Potassium 3.6 (3.3-5.1) mmol/L Chloride 108 (96-108) mmol/L Carbon Dioxide 24 (22-29) mmol/L Anion Gap 15 (12-20) BUN 13 (9-16) mg/dL Creatinine 0.94 (0.5-1.4) mg/dL Estim Creat Clear Calc 78.1 Estimated GFR > 60 Random Glucose 147 H (60-115) mg/dL Calcium 9.6 (8.4-10.2) mg/dL Total Bilirubin 1.3 H (0.0-1.0) mg/dL AST 24 (5-37) U/L ALT 11 (0-40) U/L Alkaline Phosphatase 97 (39-117) U/L Troponin I High Sens 6.2 (<3.5-35.0) ng/L Total Protein 7.0 (6.5-8.0) g/dL Albumin 4.2 (3.5-5.0) g/dL Independent Interpretation I performed an independent interpretation of an: EKG Interpretation: Normal sinus rhythm rate [address]-T changes no ischemia External Record Review External record reviewed: Inpatient record Chronic Conditions Patient?s care impacted by: Hypertension Discharge Plan Discharge Clinical Impression: Hypertension Patient Disposition: Home, Self-Care Instructions: Hypertension (ED) Additional Instructions: Follow-up with your primary care physician on Monday return to the emergency room if you worse Prescriptions: No Action famotidine 40 mg tablet 40 mg PO DAILY PRN (Reason: for heartburn) Qty: 90 4RF amlodipine 10 mg tablet 10 mg PO DAILY Qty: 90 3RF lisinopril 40 mg tablet 40 mg PO DAILY Qty: 90 3RF terazosin 5 mg capsule 5 mg PO BEDTIME 90 Days Qty: 90 1RF acetaminophen [Tylenol Extra Strength] 500 mg tablet 1,000 mg PO Q6H PRN (Reason: fever or pain) Qty: 20 0RF meclizine 25 mg tablet 25 mg PO BID PRN (Reason: dizziness) Qty: 14 0RF tramadol 50 mg tablet 50 mg PO BEDTIME PRN (Reason: Pain) fluticasone propionate 50 mcg/actuation spray,suspension 2 spray intranasal DAILY PRN (Reason: Allergy Symptoms) atorvastatin 80 mg tablet 80 mg PO DAILY ondansetron 4 mg tablet,disintegrating 4 mg PO DAILY PRN (Reason: nausea and vomiting) 5 Days Qty: 10 0RF aspirin 81 mg tablet,delayed release (DR/EC) 81 mg PO DAILY (DME) lancets [TRUEplus Lancets] 33 gauge misc See Rx Instructions Not Applicable TID Qty: 100 Rx Instructions: As directed (DME) FreeStyle Lite Strips Strip See Rx Instructions Not Applicable TID Qty: 10 Rx Instructions: As directed chlorthalidone 25 mg tablet 25 mg PO DAILY hydroxyzine HCl 25 mg tablet 25 mg PO QID PRN (Reason: Anxiety) trazodone 50 mg tablet 50 mg PO BEDTIME PRN (Reason: Insomnia) fluticasone propionate 50 mcg/actuation spray,suspension 2 spray intranasal DAILY 30 Days Qty: 15.8 11RF cetirizine [Zyrtec] 10 mg tablet 10 mg PO DAILY PRN (Reason: Allergies) 30 Days Qty: 30 10RF albuterol sulfate 90 mcg/actuation HFA aerosol inhaler 2 puff INHALATION Q6H PRN (Reason: dyspnea) 30 Days Qty: 8.5 11RF senna 8.6 mg capsule 17.2 mg PO BEDTIME PRN (Reason: constipation) Qty: 60 6RF docusate sodium [Colace] 100 mg capsule 100 mg PO .qhs Qty: 30 6RF Referrals: Ashley Frankel MD [Primary Care Provider] - 12/30/24 Print Language: Guamanian
--- NOTE | 2024-12-28 09:50 | PC.NURSE ---
pt reports that this morning his BP was very high (200s/100s). He took his lisinopril and amlodipine. In ED BP is better (163/89). slight facial asymmetry on left side - evaluated by Dr. Paul - neuros otherwise intact, no extremit drift, strength equal. l
[2024-12-28 09:57] LABS: MANUAL DIFF FLAG NO
[2024-12-28 09:59] LABS: Basophils Percent Auto 0.7 % (0-2); Eosinophils Absolute Auto 0.1 X10*3/uL (0.0-0.4); Eosinophils Percent Auto 1.4 % (0-4); Hematocrit 41.5 % (42.0-52.0); Hemoglobin 13.9 g/dl (14.0-18.0); Imm Gran Abs Auto 0.01 X10*3/uL (0.00-0.03); Imm Gran Pct Auto 0.2 % (0.0-0.4); Mean Corpuscular HGB Conc 33.5 g/dl (31.0-36.0); Mean Corpuscular Hemoglobin 30.3 pg (27.0-33.0); Mean Corpuscular Volume 90.4 fL (80.0-98.0); Mean Platelet Volume 10.3 fL (9.4-12.4); Monocytes Absolute Auto 0.4 X10*3/uL (0.1-1.2); Monocytes Percent Auto 9.9 % (2-11); Neutrophils Absolute Auto 2.8 x10*3/uL (2.0-8.3); Neutrophils Percent Auto 64.8 % (45-73); Platelet Count 243 X10*3/uL (160-400); Red Blood Count 4.59 X10*6/uL (4.60-5.80); Red Cell Distribution Width 12.6 % (11.0-16.0); White Blood Count 4.3 X10*3/uL (4.8-10.8)
[2024-12-28 10:00] VITALS: BP 146/82; PULSE 82; RESP 16; TEMP 36.8
[2024-12-28 10:30] LABS: Troponin-I High Sensitivity 6.2 ng/L (<3.5-35.0)
[2024-12-28 10:32] LABS: Alanine Aminotransferase 11 U/L (0-40); Albumin Level 4.2 g/dL (3.5-5.0); Anion Gap 15 (12-20); Aspartate Amino Transferase 24 U/L (5-37); Bilirubin Total 1.3 mg/dL (0.0-1.0); Blood Urea Nitrogen 13 mg/dL (9-16); Calcium 9.6 mg/dL (8.4-10.2); Carbon Dioxide 24 mmol/L (22-29); Chloride 108 mmol/L (96-108); Creatinine Clr Calc Pharmacy 78.1; Estimated Glomerular Filt Rate > 60; Glucose Random 147 mg/dL (60-115); Potassium 3.6 mmol/L (3.3-5.1); Sodium 143 mmol/L (135-145)
[2024-12-28 10:43] LABS: Alkaline Phosphatase 97 U/L (39-117)
--- NOTE | 2024-12-28 11:09 | PC.NURSE ---
Report received. Taken over care at this time.
[2024-12-28 11:23] VITALS: BP 146/82; PULSE 82; RESP 16; TEMP 36.8
== END 2024-12-28 11:24 | disposition home or self-care (01) ==
PROVIDERS: Emergency Provider Emergency Medicine; PCP Family Medicine
DX: I10 Essential (primary) hypertension (principal); E11.9 Type 2 diabetes mellitus without complications; J45.909 Unspecified asthma, uncomplicated; Z79.82 Long term (current) use of aspirin; Z79.02 Long term (current) use of antithrombotics/antiplatelets; Z87.891 Personal history of nicotine dependence
CPT/HCPCS: 36415; 80053; 84484; 85025; 93005; 99283; 99284

== ENCOUNTER → 2024-12-28 09:37 | Outpatient (BNV) | payer OTHER, SELFPAY | PROVIDERS: Emergency Provider Emergency Medicine; PCP Family Medicine; Visit Provider Internal Medicine Cardiovascular Disease | DX: R07.9 Chest pain, unspecified (principal) | CPT/HCPCS: 93010 ==

== ENCOUNTER 2025-01-17 09:28 | Emergency (ER) | payer OTHER, SELFPAY ==
--- NOTE | ~2025-01-17 | XR_ITS ---
EXAMINATION: XR ABDOMEN KUB CLINICAL INDICATION: constipation COMPARISON: None available. TECHNIQUE: AP view of the abdomen. FINDINGS: Bowel gas pattern is normal/nonspecific. There is no focally dilated loop. There is no significant stool burden seen within the colon or rectum. No organomegaly. No abnormal soft tissue calcifications. Lung bases appear clear. No suspicious lytic or blastic bone lesion. Extensive enthesopathic changes of the gluteal insertions both proximally and distally. Mild degenerative changes of the spine and mild to moderate changes of the bilateral hip joints XR/XR KUB IMPRESSION: Negative examination. No significant constipation or bowel obstruction. Electronically signed by: Harrison Patel MD 01/17/2025 11:58 AM EDT
--- NOTE | ~2025-01-17 | CT_ITS ---
EXAMINATION: CT ABDOMEN AND PELVIS WITH CONTRAST CLINICAL INFORMATION: Abdominal pain, constipation. COMPARISON: 11/29/2024. TECHNIQUE: Multidetector volumetric images were obtained from the superior aspect of the liver through the pubic symphysis following administration 85 mL of Omnipaque 350 intravenous contrast. Sagittal and coronal reformatted images were obtained on the technologist's workstation. Oral contrast: Yes This CT examination was performed using dose optimization techniques as appropriate, variously including the following: *Automated exposure control *Adjustment of mA and/or kV according to patient size (this includes techniques or standardized protocols for targeted exams where dose is matched to indication/reason for exam; i.e. extremities or head) *Use of iterative reconstruction technique FINDINGS: LUNG BASES: The visualized lung bases are unremarkable. LIVER, GALLBLADDER, AND BILIARY TREE: The liver is normal in size, shape, and attenuation. No focal hepatic lesion or biliary ductal dilatation is present. The gallbladder is unremarkable with no evidence of radiopaque gallstones, gallbladder wall thickening, or obvious pericholecystic inflammatory changes. PANCREAS: Unremarkable. SPLEEN: Unremarkable. ADRENAL GLANDS: Unremarkable. KIDNEYS AND URETERS: The kidneys are normal in size, shape, and attenuation. No hydronephrosis, hydroureter, or calculi seen. No perinephric stranding. 1.3 cm simple cyst lower pole left kidney. BLADDER: Mildly thick-walled, but incompletely distended. This may be on the basis of cystitis or chronic outlet obstruction. GASTROINTESTINAL TRACT: Mobile cecum noted. The appendix is normal. The colon is normal in caliber and course without wall thickening or inflammation. Contrast has progressed into the rectum. Mild rectal wall thickening is noted, with minimal perirectal inflammatory changes, findings suggesting proctitis. The small bowel is normal in caliber and course. No small bowel inflammation or wall thickening. The stomach, and duodenum appear normal. ABDOMINAL WALL: No significant hernia is appreciated. LYMPH NODES: Normal. VASCULAR: Mild atheromatous changes of the aorta and iliac arteries, without evidence of aneurysm. PELVIC VISCERA: Prostate is enlarged measuring 4.9 cm in diameter.. OSSEOUS STRUCTURES: No suspicious lytic or blastic bone lesions. There is partial ankylosis of both SI joints. Mild to moderate degenerative changes in both hip joints. Gluteal enthesopathy. Degenerative changes throughout the spine, with features which may represent ankylosing spondylitis. CT/CT abdomen pelvis w IV con IMPRESSION: 1. Mild rectal wall thickening suggestive of mild proctitis. 2. No significant constipation or acute finding of the colon or small bowel. 3. Findings likely relating to underlying ankylosing spondylitis. 4. Mildly thick-walled but incompletely distended urinary bladder. This may indicate cystitis or underlying chronic outlet obstruction. 5. There is moderate prostate enlargement measuring 4.9 cm in diameter. Electronically signed by: Harrison Patel MD 01/17/2025 04:27 PM EDT
[2025-01-17 09:55] VITALS: BP 128/83; PULSE 63; RESP 18; TEMP 36.7; O2SAT 96; BMI 26.3
--- NOTE | 2025-01-17 11:02 | ED_ITS ---
HPI - General Adult General Chief complaint: General Medical Stated complaint: Constipation Time Seen by Provider: 01/17/25 11:02 Source: patient Mode of arrival: ambulatory Limitations: no limitations History of Present Illness ED Provider: Aleida Traore PA-C HPI narrative: 59 y.o male with a past medical history of constipation, hydronephrosis, hypertension, BPH, and GERD presents to the ED with a chief complaint of constipation and low back pain for about 2 weeks. Patient reports that he had a bowel movement yesterday but it contained minimal stool. He states that he has not tried any treatment to help or alleviate the back pain and constipation, nothing has made it worse. Denies blood in stool, or trauma to his back and surrounding area. Denies radiating pain down the legs or numbness or tingling in the saddle region. Denies abdominal pain, just endorsing fullness. Endorses previous low back pain. Denies ETOH, tobacco, and illicit drug use. MD complaint: Constipation with low back pain Onset (ago): week(s) (2-3 weeks ) Radiation: non-radiation Relieving factors: none Exacerbating factors: none Treatments prior to arrival: none Related Data Home Medications ?Medication ?Instructions ?Recorded ?Confirmed aspirin 81 mg tablet,delayed 81 mg PO DAILY 08/04/20 09/30/24 release blood sugar diagnostic (FreeStyle #10 ea 06/22/21 03/22/24 Lite Strips) lancets 33 gauge (TRUEplus Lancets) #100 ea 06/22/21 03/22/24 chlorthalidone 25 mg tablet 25 mg PO DAILY 06/09/23 09/30/24 hydroxyzine HCl 25 mg tablet 25 mg PO QID PRN Anxiety 02/09/24 09/30/24 trazodone 50 mg tablet 50 mg PO BEDTIME PRN Insomnia 02/09/24 09/30/24 fluticasone propionate 50 2 spray intranasal DAILY PRN 09/30/24 09/30/24 mcg/actuation nasal Allergy Symptoms spray,suspension tramadol 50 mg tablet 50 mg PO BEDTIME PRN Pain 09/30/24 09/30/24 atorvastatin 80 mg tablet 80 mg PO DAILY 10/01/24 10/01/24 Previous Rx's ?Medication ?Instructions ?Recorded acetaminophen 500 mg tablet 1,000 mg (2 x 500 mg) PO Q6H PRN 12/16/23 (Tylenol Extra Strength) fever or pain #20 tabs famotidine 40 mg tablet 40 mg PO DAILY PRN for heartburn 05/08/24 #90 tabs amlodipine 10 mg tablet 10 mg PO DAILY #90 tabs 06/24/24 lisinopril 40 mg tablet 40 mg PO DAILY #90 tabs 07/01/24 meclizine 25 mg tablet 25 mg PO BID PRN dizziness #14 tabs 07/19/24 albuterol sulfate 90 mcg/actuation 2 puff inhalation Q6H PRN dyspnea 11/19/24 aerosol inhaler 30 days #8.5 grams cetirizine 10 mg tablet (Zyrtec) 10 mg PO DAILY PRN Allergies 30 11/19/24 days #30 tabs docusate sodium 100 mg capsule 100 mg PO .qhs #30 caps 11/19/24 (Colace) fluticasone propionate 50 2 spray intranasal DAILY 30 days 11/19/24 mcg/actuation nasal #15.8 mL spray,suspension sennosides 8.6 mg capsule (senna) 17.2 mg (2 x 8.6 mg) PO BEDTIME 11/19/24 PRN constipation #60 caps terazosin 5 mg capsule 5 mg PO BEDTIME 90 days #90 caps 11/19/24 ondansetron 4 mg disintegrating 4 mg PO DAILY PRN nausea and 11/29/24 tablet vomiting 5 days #10 tabs doxycycline hyclate 100 mg tablet 100 mg PO BID 7 days #14 tabs 01/17/25 Allergies Allergy/AdvReac Type Severity Reaction Status Date / Time amoxicillin [AMOXICILLIN] Allergy Severe ANAPHYLAXIS Verified 01/17/25 09:57 Penicillins Allergy Severe UNKNOWN Verified 01/17/25 09:57 REACTION-CHILDHOOD doxycycline [From VIBRAMYCIN] AdvReac Mild DIARRHEA Verified 01/17/25 09:57 Clindamycin HCl Allergy Severe Anaphylaxis Uncoded 01/17/25 09:57 Review of Systems 2 Constitutional: Constitutional: Reports no additional constitutional complaints, Denies chills, Denies fever(s) and Denies night sweats Eyes: Eyes: Reports no additional eye complaints, Denies blurry vision, Denies change in vision, Denies diplopia, Denies eye discharge, Denies loss of vision and Denies eye pain ENT: Denies dizziness Cardiovascular: Cardiovascular: Reports no additional cardiovascular complaints, Denies chest pain, Denies lightheadedness, Denies Loss of Consciousness and Denies dyspnea Respiratory: Respiratory: Reports no additional respiratory complaints and Denies dyspnea Gastrointestinal: Gastrointestinal: Reports no additional gastrointestinal complaints, Reports abdominal pain, Denies melena, Denies hematochezia, Reports change in bowel habits, Denies change in stool character and Reports constipation Genitourinary: Genitourinary: Reports no additional male genitourinary complaints, Denies hematuria, Denies oliguria, Denies difficulty urinating, Denies dysuria, Denies urinary frequency, Denies urinary hesitancy, Denies urinary incontinence and Denies urinary urgency Musculoskeletal: Musculoskeletal: Reports back pain, Denies numbness and Denies tingling Neurologic: Denies dizziness, Denies loss of vision, Denies numbness and Denies tingling Psychiatric: Psychiatric: Reports no additional psychiatric complaints Endocrine: Endocrine: Reports no additional endocrine complaints Hematologic/Lymphatic: Hematologic/Lymphatic: Reports no additional hematologic/lymphatic complaints Allergic/Immunologic: Allergic/Immunologic: Reports no additional allergic/immunologic complaints [facility] Past Medical History Attestation statement: The following information was validated with the patient. Source: old records reviewed and nursing notes reviewed Medical History Constipation Opacity of lung on imaging study Pre-op examination GERD (gastroesophageal reflux disease) Orchialgia Weak urinary stream Asthma Nasal polyps Diabetes HTN (hypertension) Pulmonary nodules Surgical History History of esophagogastroduodenoscopy (EGD) Hx of colonoscopy H/O wrist surgery Family History Family History Father Diabetes Hypertension Mother Hypertension Hyperlipidemia Brother Hypertension Family/Other Kidney stones Prostate cancer Bladder cancer Renal cancer Social History Social History Household Members: None Housing: Apartment Alcohol intake: former Patient Tobacco Use Status: Former Tobacco user Tobacco use type: Cigarette Years Smoked: 30 years service: No Physical Exam ED Vital Signs: Vital Signs - 24 hr 01/17/25 09:55 01/17/25 12:11 01/17/25 14:43 Temperature 98.1 F 97.3 F 97.0 F Pulse Rate 63 52 54 Respiratory Rate 18 14 14 Blood Pressure 128/83 149/69 H 170/65 H Pulse Oximetry 96 100 100 Oxygen Delivery Method Room Air Room Air Room Air BMI result Body Mass Index 26.3 Const General: cooperative, no acute distress, alert and awake Nutritional Appearance: well nourished Orientation/consciousness: patient oriented x3 HENMT Head: Yes normal to inspection and Yes atraumatic Ears: hearing grossly normal bilaterally and external ears normal General nose exam: Normal external nose present, no nasal discharge noted and no epistaxis Face and sinus: Yes normal facial exam, No abrasion and No laceration Mouth: Normal oral and palatal mucosa present, no drooling and no muffled voice Eyes General: appearance normal, both eyes and all related structures Periorbital: periorbital findings normal Eyelids: Yes eyelids normal Conjunctivae: conjunctivae normal Pupils: Equal, round and reactive pupils present EOM: EOMs intact bilaterally Neck Neck: Yes normal visual inspection, Yes full ROM and Yes no lymphadenopathy Resp Effort & Inspection: normal respiratory effort and able to speak in complete sentences Cardio Rate: regular rate Rhythm: regular rhythm GI Inspection: Yes normal to inspection Palpation (GI): Soft to palpation, not firm, nontender, no guarding and not rigid Auscultation: normal bowel sounds Rectal Exam - Male: Yes deferred General: Yes no CVA tenderness Back/Spine/Pelvis Back: no CVA tenderness Thoracic/Lumbar Spine: thoracic and lumbar spine normal to inspection, straight leg raise negative bilaterally, No paraspinal muscle tenderness and thoraco- lumbar ROM limited Neuro General: patient oriented x3, moves all extremities and CN's II-XI intact bilaterally Cranial nerves: Yes Equal, round and reactive pupils present Cognition (Neuro): normal cognition Extrem General: Yes normal to inspection, Yes full ROM and Yes capillary refill normal Psych Appearance: grossly normal Mental Status: mental status grossly normal Affect: normal affect Attitude: cooperative Thought process: Normal thought process present Thought content: Normal thought content present Insight: Good insight present (Psych) Medications Administered Discontinued Medications Generic Name Dose Route Start Last Admin Trade Name Freq PRN Reason Stop Dose Admin Ceftriaxone Sodium 500 mg 01/17/25 16:37 01/17/25 17:09 Ceftriaxone Sodium 500 Mg Vial IM 01/17/25 16:38 Not Given ONCE ONE Ceftriaxone Sodium 1 gm 01/17/25 17:10 01/17/25 17:14 Ceftriaxone Sodium 1 Gm Vial IVPUSH 01/17/25 17:11 1 gm ONCE ONE Administration Diatrizoate Meglum/Diatrizoate Sod 30 ml 01/17/25 15:42 01/17/25 15:42 Diatrizoate Meglumine, Sodium 30 Ml Solution PO 01/17/25 15:43 30 ml ONCE ONE Administration Diatrizoate Meglum/Diatrizoate Sod 30 ml 01/17/25 16:00 01/17/25 16:00 Diatrizoate Meglumine, Sodium 30 Ml Solution PO 01/17/25 16:01 30 ml ONCE ONE Administration Diphenhydramine HCl 25 mg 01/17/25 16:38 01/17/25 17:04 Diphenhydramine Hcl 50 Mg/Ml Vial IVPUSH 01/17/25 16:39 25 mg ONCE ONE Administration Doxycycline Monohydrate 100 mg 01/17/25 16:37 01/17/25 17:05 Doxycycline Monohydrate 100 Mg Capsule PO 01/17/25 16:38 100 mg ONCE ONE Administration Iohexol 85 ml 01/17/25 15:40 01/17/25 15:41 Iohexol 350 Mg/Ml 75 Ml Infus..Btl IV 01/17/25 15:41 85 ml ONCE ONE Administration Iohexol 85 ml 01/17/25 15:59 01/17/25 15:59 Iohexol 350 Mg/Ml 100 Ml Infus..Btl IV 01/17/25 16:00 85 ml ONCE ONE Administration Medical Decision Making Medical Decision Making [facility] Narrative: Patient is a 59 year old assigned male at with a history of GERD, asthma, DM, HTN, and constipation presenting to the emergency department today with low back pain, lower abdominal pain, and concern for constipation. Patient's physical exam was unremarkable. Patient's blood work was unremarkable. Patient's urine showed no acute process. Patient's KUB x-ray showed no acute process. Patient's CT abdomen/pelvis showed evidence of proctitis. I explained my physical exam findings as well as all test results to the patient. I answered all questions asked by the patient. Patient had multiple bowel movements while in the department. I stressed the importance of the patient taking his medication as directed (either prescribed or as the over the counter packaging recommends). I stressed the importance of the patient following up with his primary care provider. I stressed the importance of the patient returning to the emergency department immediately if his symptoms were to worsen or if he were to develop any dizziness, shortness of breath, difficulty breathing, chest pain, blurry vision, loss of vision, nausea, vomiting, abdominal pain, fever, chills, back pain, or any other complaints. Patient verbalized agreement and understanding with this treatment plan and discharge. Differential Diagnosis Differential Diagnoses: The differential diagnosis associated with the presentation includes Constipation Proctitis Admission/Observation Consideration of admission/observation: Escalation of care including admission/observation considered Patient would have been admitted to the hospital had his work up had any findings where hospital admission was appropriate and his clinical presentation warranted hospital admission. Lab Data [facility] Lab Attestation statement: I reviewed the patient's lab results. My interpretation of these results are in the [facility] Rationale portion of this note. 01/17/25 11:57 01/17/25 11:57 Labs: Lab Results 01/17/25 01/17/25 Range/Units 11:57 15:28 WBC 4.1 L (4.8-10.8) X10*3/uL RBC 4.69 (4.60-5.80) X10*6/uL Hgb 14.4 (14.0-18.0) g/dl Hct 42.2 (42.0-52.0) % MCV 90.0 (80.0-98.0) fL MCH 30.7 (27.0-33.0) pg MCHC 34.1 (31.0-36.0) g/dl RDW 12.6 (11.0-16.0) % Plt Count 258 (160-400) X10*3/uL MPV 10.3 (9.4-12.4) fL Immature Gran % (Auto) 0.5 H (0.0-0.4) % Neut % (Auto) 60.8 (45-73) % Lymph % (Auto) 27.6 (20-40) % [place] % (Auto) 10.1 (2-11) % Eos % (Auto) 0.5 (0-4) % Baso % (Auto) 0.5 (0-2) % Lymph # (Auto) 1.1 L (1.2-4.9) X10*3/uL [place] # (Auto) 0.4 (0.1-1.2) X10*3/uL Eos # (Auto) 0.0 (0.0-0.4) X10*3/uL Baso # (Auto) 0.0 (0.0-0.2) X10*3/uL Abs Immat Gran (auto) 0.02 (0.00-0.03) X10*3/uL Absolute Neuts (auto) 2.5 (2.0-8.3) x10*3/uL Absolute Nucleated RBC 0.000 (0.0-0.012) X10*3/uL Nucleated RBC % (auto) 0.0 (0.0-0.2) /100WBC Sodium 145 (135-145) mmol/L Potassium 3.8 (3.3-5.1) mmol/L Chloride 104 (96-108) mmol/L Carbon Dioxide 34 H (22-29) mmol/L Anion Gap 11 L (12-20) BUN 10 (9-16) mg/dL Creatinine 0.98 (0.5-1.4) mg/dL Estim Creat Clear Calc 74.9 Estimated GFR > 60 Random Glucose 120 H (60-115) mg/dL Calcium 9.8 (8.4-10.2) mg/dL Magnesium 2.1 (1.6-2.6) mg/dL Total Bilirubin 1.4 H (0.0-1.0) mg/dL AST 26 (5-37) U/L ALT 17 (0-40) U/L Alkaline Phosphatase 100 (39-117) U/L Total Protein 7.3 (6.5-8.0) g/dL Albumin 4.6 (3.5-5.0) g/dL Urine Color Yellow Urine Appearance Clear Urine pH 8.5 (5.0-9.0) Ur Specific Dix 1.010 (1.005-1.025) Urine Protein Negative (Neg-Trace) mg/dL Urine Glucose (UA) Negative (Negative) mg/dL Urine Ketones Trace (Negative) mg/dL Urine Blood Negative (Negative) Urine Nitrite Negative (Negative) Ur Leukocyte Esterase Negative (Negative) Independent Interpretation I performed an independent interpretation of an: Plain X-Ray and CT Scan Interpretation: My interpretation is in agreement with the radiologist's impression of these imaging studies. L EXAMINATION: XR ABDOMEN KUB CLINICAL INDICATION: constipation COMPARISON: None available. TECHNIQUE: AP view of the abdomen. FINDINGS: Bowel gas pattern is normal/nonspecific. There is no focally dilated loop. There is no significant stool burden seen within the colon or rectum. No organomegaly. No abnormal soft tissue calcifications. Lung bases appear clear. No suspicious lytic or blastic bone lesion. Extensive enthesopathic changes of the gluteal insertions both proximally and distally. Mild degenerative changes of the spine and mild to moderate changes of the bilateral hip joints XR/XR KUB IMPRESSION: Negative examination. No significant constipation or bowel obstruction. Electronically signed by: Harrison Patel MD 01/17/2025 11:58 AM EDT RP Dictated By: Harirson Patel MD Signed By: Electronically signed by Harrison Patel MD 01/17/25 1158 Report Number: [id number]: Total DLP = 448.00 mGy-cm EXAMINATION: CT ABDOMEN AND PELVIS WITH CONTRAST CLINICAL INFORMATION: Abdominal pain, constipation. COMPARISON: 11/29/2024. TECHNIQUE: Multidetector volumetric images were obtained from the superior aspect of the liver through the pubic symphysis following administration 85 mL of Omnipaque 350 intravenous contrast. Sagittal and coronal reformatted images were obtained on the technologist's workstation. Oral contrast: Yes This CT examination was performed using dose optimization techniques as appropriate, variously including the following: *Automated exposure control *Adjustment of mA and/or kV according to patient size (this includes techniques or standardized protocols for targeted exams where dose is matched to indication/reason for exam; i.e. extremities or head) *Use of iterative reconstruction technique FINDINGS: LUNG BASES: The visualized lung bases are unremarkable. LIVER, GALLBLADDER, AND BILIARY TREE: The liver is normal in size, shape, and attenuation. No focal hepatic lesion or biliary ductal dilatation is present. The gallbladder is unremarkable with no evidence of radiopaque gallstones, gallbladder wall thickening, or obvious pericholecystic inflammatory changes. PANCREAS: Unremarkable. SPLEEN: Unremarkable. ADRENAL GLANDS: Unremarkable. KIDNEYS AND URETERS: The kidneys are normal in size, shape, and attenuation. No hydronephrosis, hydroureter, or calculi seen. No perinephric stranding. 1.3 cm simple cyst lower pole left kidney. BLADDER: Mildly thick-walled, but incompletely distended. This may be on the basis of cystitis or chronic outlet obstruction. GASTROINTESTINAL TRACT: Mobile cecum noted. The appendix is normal. The colon is normal in caliber and course without wall thickening or inflammation. Contrast has progressed into the rectum. Mild rectal wall thickening is noted, with minimal perirectal inflammatory changes, findings suggesting proctitis. The small bowel is normal in caliber and course. No small bowel inflammation or wall thickening. The stomach, and duodenum appear normal. ABDOMINAL WALL: No significant hernia is appreciated. LYMPH NODES: Normal. VASCULAR: Mild atheromatous changes of the aorta and iliac arteries, without evidence of aneurysm. PELVIC VISCERA: Prostate is enlarged measuring 4.9 cm in diameter.. OSSEOUS STRUCTURES: No suspicious lytic or blastic bone lesions. There is partial ankylosis of both SI joints. Mild to moderate degenerative changes in both hip joints. Gluteal enthesopathy. Degenerative changes throughout the spine, with features which may represent ankylosing spondylitis. CT/CT abdomen pelvis w IV con IMPRESSION: 1. Mild rectal wall thickening suggestive of mild proctitis. 2. No significant constipation or acute finding of the colon or small bowel. 3. Findings likely relating to underlying ankylosing spondylitis. 4. Mildly thick-walled but incompletely distended urinary bladder. This may indicate cystitis or underlying chronic outlet obstruction. 5. There is moderate prostate enlargement measuring 4.9 cm in diameter. Electronically signed by: Harrison Patel MD 01/17/2025 04:27 PM EDT Dictated By: Harrison Patel MD Signed By: Electronically signed by Harrison Patel MD 01/17/25 [id number] Radiology Impression Discussion of test interpretation with radiology: I have reviewed the radiologist's reading. Chronic Conditions Patient?s care impacted by: Diabetes Critical Care Time Critical Care Time Critical Care Time: Yes Total Critical Care Time: 37 Attestation: I spent 37 minutes of Critical Care Time with this patient. This does not include time spent on separately reported billable procedures. Discharge Plan Discharge Clinical Impression: Acute proctitis, Constipation Patient Disposition: Home, Self-Care Instructions: Proctitis (ED), Sitz Bath (DC), Rectal Pain (ED), Constipation (DC) Additional Instructions: Take your medication as prescribed. Follow up with your primary care provider. Return to the emergency department immediately if your symptoms worsen or if you develop any numbness, tingling, dizziness, shortness of breath, difficulty breathing, chest pain, blurry vision, loss of vision, nausea, vomiting, abdominal pain, fever, chills, back pain, or any other complaints. Please see the information below about our Patient Portal. If you are not yet enrolled in the [facility] Patient Portal, you will receive an enrollment email invitation following your visit to any [facility] setting. You may also self-enroll in the Patient Portal by visiting our website: [email or web address] The following information is required to access the Patient Portal: - Your [facility] Medical Record Number - Your personal home email address (must match what is in your electronic medical record, Registration staff can assist with this) - Name - Date of Capabilities of the Patient Portal: - Message some providers - View upcoming appointments - Access your health summary, medical history, and visit history - View current conditions and allergies - View procedure and lab results - View your medications, including guidelines, side effects, and precautions - Complete pre-appointment questionnaires requested by your provider - Ready summary reports of your office visits and procedures To access the Patient Portal Mobile [employer], follow these directions: - Search [employer] in the [employer] Store or [employer] Store - Download the Naye - Search for [facility] - Enter your login/password Prescriptions: New doxycycline hyclate 100 mg tablet 100 mg PO BID 7 Days Qty: 14 0RF No Action famotidine 40 mg tablet 40 mg PO DAILY PRN (Reason: for heartburn) Qty: 90 4RF amlodipine 10 mg tablet 10 mg PO DAILY Qty: 90 3RF lisinopril 40 mg tablet 40 mg PO DAILY Qty: 90 3RF terazosin 5 mg capsule 5 mg PO BEDTIME 90 Days Qty: 90 1RF acetaminophen [Tylenol Extra Strength] 500 mg tablet 1,000 mg PO Q6H PRN (Reason: fever or pain) Qty: 20 0RF meclizine 25 mg tablet 25 mg PO BID PRN (Reason: dizziness) Qty: 14 0RF tramadol 50 mg tablet 50 mg PO BEDTIME PRN (Reason: Pain) fluticasone propionate 50 mcg/actuation spray,suspension 2 spray intranasal DAILY PRN (Reason: Allergy Symptoms) atorvastatin 80 mg tablet 80 mg PO DAILY ondansetron 4 mg tablet,disintegrating 4 mg PO DAILY PRN (Reason: nausea and vomiting) 5 Days Qty: 10 0RF aspirin 81 mg tablet,delayed release (DR/EC) 81 mg PO DAILY (DME) lancets [TRUEplus Lancets] 33 gauge misc See Rx Instructions Not Applicable TID Qty: 100 Rx Instructions: As directed (DME) FreeStyle Lite Strips Strip See Rx Instructions Not Applicable TID Qty: 10 Rx Instructions: As directed chlorthalidone 25 mg tablet 25 mg PO DAILY hydroxyzine HCl 25 mg tablet 25 mg PO QID PRN (Reason: Anxiety) trazodone 50 mg tablet 50 mg PO BEDTIME PRN (Reason: Insomnia) fluticasone propionate 50 mcg/actuation spray,suspension 2 spray intranasal DAILY 30 Days Qty: 15.8 11RF cetirizine [Zyrtec] 10 mg tablet 10 mg PO DAILY PRN (Reason: Allergies) 30 Days Qty: 30 10RF albuterol sulfate 90 mcg/actuation HFA aerosol inhaler 2 puff INHALATION Q6H PRN (Reason: dyspnea) 30 Days Qty: 8.5 11RF senna 8.6 mg capsule 17.2 mg PO BEDTIME PRN (Reason: constipation) Qty: 60 6RF docusate sodium [Colace] 100 mg capsule 100 mg PO .qhs Qty: 30 6RF Referrals: Ashley Frankel MD [Primary Care Provider] - Interventions: ED Discharge Assessment Last Done: 01/17/25 17:24 Discharge Date/Time: 01/17/25 17:24 Print Language: Algerian
--- OUTSIDE RECORDS SUMMARY | 2025-01-17 11:19 | XMS_ITS | Clinical Summary ---
Author Organization [address] [facility] Address [address] [place] [address] Phone Care Team Providers Care Systems Applications Programming Lead Name Role Phone Ashley Frankel MD Primary Care Provider [phone] Allergies Active Allergy Reactions Criticality Noted Date Comments Clindamycin Anaphylaxis,Unknown High 03/29/2012 Doxycycline Diarrhea,Unknown Low 01/31/2023 Penicillins Anaphylaxis,Unknown High 04/06/2012 Other reaction(s): UNKNOWN REACTION-CHILDHOOD Medications No known medications Encounters Date Type Department Care Team Description 01/14/2025 9:00 AM EDT Consult Orthopedic Surgery [facility] [address] [facility] [address] [place] [id number] Raheel Slater, PORTER Pain in toes of both feet (Primary Dx); Enlarged and hypertrophic nails; Arthritis of both feet; Lumbosacral radiculopathy from Last 3 Months Medical History Medical History Date Comments Hypertension Diabetes mellitus ([facility] V24, [facility] V28) Social History Tobacco Use Types Packs/Day Years [...] - - Weight 81.2 kg (179 lb) 01/14/2025 9:17 AM EDT Height 170.2 cm (5' 7.01 ) 01/14/2025 9:17 AM ED T Body Mass Index 28.03 01/14/2025 9:17 AM EDT Plan of Treatment Health Maintenance Due Date Last Done Comments COVID-19 Vaccine (#1) 1969 Diabetes: Annual Foot Exam 1974 Diabetes: Annual Retina Eye Exam 1974 Zoster Vaccines (1 of 2) 1983 Pneumococcal Vaccine: 50+ Years (3 of 3 - PCV) 05/14/2016 05/14/2015, 06/30/2006 Pneumococcal Vaccine: Pediatrics (0 to 5 Years) and At-Risk Patients (6 to 64 Years) (3 of 3 - PCV) 05/14/2016 05/14/2015, 06/30/2006 Colorectal Cancer Screening: Colonoscopy 08/09/2024 Diabetes: Annual Urine Albumin-Creatinine Ratio (uACR) 08/09/2024 Medicare Annual Wellness Visit 08/09/2024 Social Influencers of Health Screening 08/09/2024 RSV Immunization Adult Patients (1 - Risk 60-74 years 1-dose series) 2024 Diabetes: Blood Sugar Control Test (HGBA1C) 02/11/2025 08/13/2024, 07/17/2024, 07/17/2024 Influenza Vaccine (Season Ended) 2025 05/30/2019, 05/18/2018, 05/31/2017, Additional history exists Depression Screening 07/17/2025 07/17/2024 Diabetes: Annual GFR (Glomerular Filtration Rate) 12/28/2025 12/28/2024, 11/29/2024, 11/28/2024, Additional history exists Hypertension/CHF/CAD Annual BMP Blood Test 12/28/2025 12/28/2024, 11/29/2024, 11/28/2024, Additional history exists Cholesterol Screening (Lipid Panel) [...] age to complete this topic Meningococcal B Vaccine Aged Out No l onger eligible based on patient's age to complete this topic RSV Immunization Patients Under 20 months Aged Out No longer eligible based on patient's age to complete this topic Varicella Vaccines Aged Out No longer eligible based on patient's age to complete this topic Procedures Procedure Name Priority Date/Time Associated Diagnosis Comments COMPREHENSIVE METABOLIC PANEL STAT 10/11/2024 11:18 PM EST from Last 3 Months or Most Recently Relevant to Health Maintenance Results * (ABNORMAL) Comprehensive metabolic panel (10/11/2024 11:18 PM EST) Sodium 138 133 - 145 mmol/L LAB CHEMISTRY METHOD 10/12/2024 12:38 AM EST [facility] Potassium 4.3 3.5 - 5.5 mmol/L LAB CHEMISTRY METHOD 10/12/2024 12:38 AM EST [facility] Chloride 107 96 - 110 mmol/L LAB CHEMISTRY METHOD 10/12/2024 12:38 AM EST [facility] CO2 30 21 - 32 mmol/L LAB CHEMISTRY METHOD 10/12/2024 12:38 AM EST [facility] Anion Gap 1(L) 3 - 11 LAB CHEMISTRY METHOD 10/12/2024 12:38 AM [facility] Glucose 126(H) 70 - 100 mg/dL LAB CHEMISTRY METHOD 10/12/2024 12:38 AM [facility] BUN 15 5 - 25 mg/dL LAB CHEMISTRY METHOD 10/12/2024 12:38 AM [facility] Creatinine 1.15 0.70 - 1.30 mg/dL LAB CHEMISTRY METHOD 10/12/2024 12:38 AM [facility] eGFR 73 >=60 mL/min/1. 73m2 LAB CHEMISTRY METHOD 10/12/2024 12:38 AM [facility] Comment:Calculation based on the??Chronic Kidney Disease Epidemiology Collaboration (CKD-EPI) equation refit??without adjustment for race. BUN/Creatinine Ratio 13.0 LAB CHEMISTRY METHOD 10/12/2024 12:38 AM [facility] Calcium 9.8 8.5 - 10.5 mg/dL LAB CHEMISTRY METHOD 10/12/2024 12:38 AM [facility] AST (SGOT) 24 10 - 42 unit/L LAB CHEMISTRY METHOD 10/12/2024 12:38 AM [facility] ALT (SGPT) 22 10 - 60 unit/L LAB CHEMISTRY METHOD 10/12/2024 12:38 AM [facility] Alkaline Phosphatase 100 42 - 121 unit/L LAB CHEMISTRY METHOD 10/12/2024 12:38 AM [facility] Total Protein 6.9 6.0 - 8.0 g/dL LAB CHEMISTRY METHOD 10/12/2024 12:38 AM [facility] Albumin 3.9 3.2 - 5.0 g/dL LAB CHEMISTRY METHOD 10/12/2024 12:38 AM [facility] Total Bilirubin 0.6 0.0 - 1.4 mg/dL LAB CHEMISTRY METHOD 10/12/2024 12:38 AM [facility] Blood Venous blood specimen / Unknown Venipuncture / Unknown 10/11/2024 11:18 PM EST 10/11/2024 11:44 PM EST Smith Quan MD LAB BLOOD ORDERABLES Final Result [facility] [address] [place] [address], from Last 3 Months or Most Recently Relevant to Health Maintenance Insurance [facility] MEDICARE Member Subscriber Plan / Payer (Ef fective 2023-Present) Name:BOBBY WAY Relation to Subscriber:Self Name:Bobby Way Payer ID:[id number] Group ID:[id number] Type:Not on file Address: [place] [address] [address] [id number] Care Teams Systems Applications Programming Lead Relationship Specialty Start Date End Date YoakumAshley buck MD [address] [place] [id number] PCP - General Family Medicine 08/09/24
[2025-01-17 12:03] LABS: MANUAL DIFF FLAG NO
[2025-01-17 12:05] LABS: Basophils Percent Auto 0.5 % (0-2); Eosinophils Percent Auto 0.5 % (0-4); Hematocrit 42.2 % (42.0-52.0); Hemoglobin 14.4 g/dl (14.0-18.0); Imm Gran Abs Auto 0.02 X10*3/uL (0.00-0.03); Imm Gran Pct Auto 0.5 % (0.0-0.4); Lymphocytes Absolute Auto 1.1 X10*3/uL (1.2-4.9); Lymphocytes Percent Auto 27.6 % (20-40); Mean Corpuscular HGB Conc 34.1 g/dl (31.0-36.0); Mean Corpuscular Hemoglobin 30.7 pg (27.0-33.0); Mean Platelet Volume 10.3 fL (9.4-12.4); Monocytes Absolute Auto 0.4 X10*3/uL (0.1-1.2); Monocytes Percent Auto 10.1 % (2-11); Neutrophils Absolute Auto 2.5 x10*3/uL (2.0-8.3); Neutrophils Percent Auto 60.8 % (45-73); Platelet Count 258 X10*3/uL (160-400); Red Blood Count 4.69 X10*6/uL (4.60-5.80); Red Cell Distribution Width 12.6 % (11.0-16.0); White Blood Count 4.1 X10*3/uL (4.8-10.8)
[2025-01-17 12:11] VITALS: BP 149/69; PULSE 52; RESP 14; TEMP 36.3; O2SAT 100
[2025-01-17 12:20] LABS: Alanine Aminotransferase 17 U/L (0-40); Albumin Level 4.6 g/dL (3.5-5.0); Alkaline Phosphatase 100 U/L (39-117); Anion Gap 11 (12-20); Aspartate Amino Transferase 26 U/L (5-37); Bilirubin Total 1.4 mg/dL (0.0-1.0); Blood Urea Nitrogen 10 mg/dL (9-16); Calcium 9.8 mg/dL (8.4-10.2); Carbon Dioxide 34 mmol/L (22-29); Chloride 104 mmol/L (96-108); Creatinine Clr Calc Pharmacy 74.9; Estimated Glomerular Filt Rate > 60; Glucose Random 120 mg/dL (60-115); Magnesium 2.1 mg/dL (1.6-2.6); Potassium 3.8 mmol/L (3.3-5.1); Sodium 145 mmol/L (135-145); Total Protein 7.3 g/dL (6.5-8.0)
[2025-01-17 14:43] VITALS: BP 170/65; PULSE 54; RESP 14; TEMP 36.1; O2SAT 100
[2025-01-17 15:39] LABS: Appearance Urine Clear; Color Urine Yellow; Glucose Urine UA Negative (Negative); Leukocyte Esterase Urine Negative (Negative); Nitrite Urine Negative (Negative); PH 8.5 (5.0-9.0); Urine Blood Negative (Negative); Urine Ketones Trace mg/dL (Negative); Urine Protein Negative (Neg-Trace)
[2025-01-17] MEDS: iohexoL 350 MG/ML 75 ML INFUS..BTL 85 ML IV (15:41)
[2025-01-17] MEDS: Diatrizoate Meglumine, Sodium 30 ML SOLUTION PO ×2 (15:42→16:00)
[2025-01-17] MEDS: iohexoL 350 MG/ML 100 ML INFUS..BTL 85 ML IV (15:59)
[2025-01-17] MEDS: diphenhydrAMINE HCL 50 MG/ML VIAL 25 MG IVPUSH (17:04)
[2025-01-17] MEDS: Doxycycline Monohydrate 100 MG CAPSULE PO (17:05)
[2025-01-17] MEDS: cefTRIAXone sodium 1 GM VIAL IVPUSH (17:14)
[2025-01-17 17:24] VITALS: BP 170/65; PULSE 54; RESP 14; TEMP 36.1; O2SAT 100
== END 2025-01-17 17:24 | disposition home or self-care (01) ==
PROVIDERS: Physician Assistant Medical; Emergency Provider Emergency Medicine; PCP Family Medicine
DX: K62.89 Other specified diseases of anus and rectum (principal); K59.00 Constipation, unspecified; M54.50 Low back pain, unspecified; R10.2 Pelvic and perineal pain; Z79.899 Other long term (current) drug therapy
CPT/HCPCS: 36415; 74018; 74177; 80053; 81003; 83735; 85025; 96374; 96375; 99283; 99284; J0696; J1200; Q9967

== ENCOUNTER → 2025-01-17 11:34 | Outpatient (BNV) | payer OTHER, SELFPAY | PROVIDERS: PCP Family Medicine; Visit Provider Radiology Diagnostic Radiology | DX: R10.9 Unspecified abdominal pain (principal) | CPT/HCPCS: 74018; 74177 ==

== ENCOUNTER 2025-01-21 12:07 | Outpatient (AMB) | payer OTHER, SELFPAY ==
--- NOTE | 2025-01-21 12:10 | A.OFFVIS_ITS ---
Vital Signs 01/21/25 12:15 Height 5 ft 7 in Weight 165 lb 5.547 oz BMI 25.9 BP 176/81 H Blood Pressure Location Lt brachial Position Sitting Pulse 73 Intake Visit Reasons: Abd pain, constipation Intake Note: Bobby presents in the office as a follow up for constipation and abdominal pains. CC: states that he has been dealing with constipation for a while nad not sure what he should do. When he has a BM or tries to he gets a pain in the stomach. Product Inspection Supervisor Required: No Allergies amoxicillin [AMOXICILLIN] Allergy (Severe, Verified 01/17/25 09:57) ANAPHYLAXIS Penicillins Allergy (Severe, Verified 01/17/25 09:57) UNKNOWN REACTION-CHILDHOOD doxycycline [From VIBRAMYCIN] Adverse Reaction (Mild, Verified 01/17/25 09:57) DIARRHEA Clindamycin HCl Allergy (Severe, Uncoded 01/17/25 09:57) Anaphylaxis HPI HPI Abd pain, constipation: Details: Assessment & Plan (1) Constipation: Code(s): K59.00 - Constipation, unspecified Category: Medical (2) GERD (gastroesophageal reflux disease): Code(s): K21.9 - Gastro-esophageal reflux disease without esophagitis Category: Medical (3) Rectal bleeding: Comment: Moderate internal hemorrhoids Code(s): K62.5 - Hemorrhage of anus and rectum Category: Medical Plan He has had quite a bit of trouble lately with his health because he had a 9 mm kidney stone! This a treated with lithotripsy but took quite a long time to pass completely and it was quite painful along the way. He is feeling better now and is following with Urology. During this he was given various pain medications among them tramadol and he has become constipated. With this she has had a slight return of rectal bleeding. In the past to utilize senna and Colace was success so will restart him on these medications and titrate to affect her side effect. He is also encouraged to drink lots of fluids both to help with his constipation and with his formation of kidney stones. Return office visit at next available to evaluate his response Medications: Changed From sennosides (senna) 8.6 mg PO BEDTIME PRN 14 caps 0RF constipation K59.00 - Constipation, unspecified To sennosides (senna) 17.2 mg (2 x 8.6 mg) PO BEDTIME PRN 60 caps 6RF constipation K59.00 - Constipation, unspecified From docusate sodium (Colace) 100 mg PO BID 14 caps 0RF K59.00 - Constipation, unspecified To docusate sodium (Colace) 100 mg PO .qhs 30 caps 6RF K59.00 - Constipation, unspecified TODAY'S VISIT He has been very constipated recently he tells me that he tried taking 2 senna a night but distant seem to do anything for him. Says he is now fails senna and Colace along with fiber, MiraLax we will progress the bisacodyl and titrate to affect her side effect. Return office visit 4 weeks. [facility] Medical History (Updated 01/21/25 @ 12:39 by CAIN Neville) Renal calculus, right Constipation Opacity of lung on imaging study Pre-op examination GERD (gastroesophageal reflux disease) Orchialgia Weak urinary stream Asthma Nasal polyps Diabetes HTN (hypertension) Pulmonary nodules Surgical History History of esophagogastroduodenoscopy (EGD) Hx of colonoscopy H/O wrist surgery Family History Father Diabetes Hypertension Mother Hypertension Hyperlipidemia Brother Hypertension Family/Other Kidney stones Prostate cancer Bladder cancer Renal cancer Social History Household Members: None Housing: Apartment Alcohol intake: former Patient Tobacco Use Status: Former Tobacco user Tobacco use type: Cigarette Years Smoked: 30 years service: No Review of Systems Const Denies fatigue, Denies fever(s), Denies night sweats, Denies poor appetite and Denies weight loss Eyes Reports requires corrective lenses ENT Reports Normal hearing present, Denies dental pain, Denies dysphagia, Denies hearing loss, Denies mouth pain, Denies odynophagia, Denies throat swelling, Denies tongue swelling and Reports other (Dentition adequate) GI Details: Denies abdominal pain, Denies melena, Denies bloating, Denies hematochezia, Denies constipation, Denies GI cramping, Denies dysphagia, Denies excessive flatus, Denies early satiety, Denies heartburn, Denies diarrhea, Denies nausea, Denies odynophagia, Denies vomiting and Denies hematemesis Skin/Breast Denies pruritus, Denies lesions, Denies rash and Denies jaundice Neuro Reports Normal hearing present and Denies Abnormal speech present Endo Denies fatigue Aller/Immun Denies throat swelling and Denies tongue swelling Physical Exam Const General: cooperative, no acute distress, well developed and well groomed Nutritional Appearance: well nourished, obese and overweight Orientation/consciousness: oriented to person, oriented to place and oriented to time Limitations: No language barrier, ambulation with cane, ambulation with walker and wheelchair HEENT Head: Yes normocephalic and Yes atraumatic Eyes General: appearance normal, both eyes and all related structures Pupils: Equal, round and reactive pupils present Neck Neck: Yes normal visual inspection and Yes no lymphadenopathy Thyroid: Thyroid normal Resp Effort & Inspection: normal respiratory effort and able to speak in complete sentences Auscultation: clear to auscultation bilaterally Cardio Rate: regular rate Rhythm: regular rhythm Heart sounds: Normal, physiologic split S2 sound present Peripheral pulses: radial pulses present and posterior tibial pulses present GI Inspection: No distended and No Abdominal panniculus present Palpation (GI): Soft to palpation, nontender, no guarding, not rigid, No hepatosplenomegaly present and Hepatosplenomegaly present Percussion: Yes normal to percussion Auscultation: normal bowel sounds Rectal Exam - Male: Yes deferred Skin General skin exam: no rashes or lesions noted, turgor normal, skin not dry, no jaundice, No spider nevi and no striae Rashes: no rashes Nails: normal Neuro General: oriented to person, oriented to place and oriented to time Cranial nerves: Yes Equal, round and reactive pupils present and Yes Normal hearing present Speech: No Abnormal speech present Extrem General: Yes normal to inspection, No clubbing, No cyanosis and No edema Psych Thought process: Normal thought process present and not confabulating Thought content: Normal thought content present Insight: Good insight present (Psych) Judgement: Good judgement present (Psych) Assessment & Plan Assessment & Plan (1) Constipation: Code(s): K59.00 - Constipation, unspecified Category: Medical (2) GERD (gastroesophageal reflux disease): Code(s): K21.9 - Gastro-esophageal reflux disease without esophagitis Category: Medical Plan He has been very constipated recently he tells me that he tried taking 2 senna a night but distant seem to do anything for him. Says he is now fails senna and Colace along with fiber, MiraLax we will progress the bisacodyl and titrate to affect her side effect. He continues on famotidine as needed for GERD. Return office visit 4 weeks. Medications: New bisacodyl (Dulcolax (bisacodyl)) 10 mg (2 x 5 mg) PO BEDTIME 30 days 60 tabs 6RF K59.00 - Constipation, unspecified Refilled famotidine 40 mg PO DAILY PRN 90 tabs 4RF for heartburn Discontinued sennosides (senna) Discontinued Reason: Doctor's Order 17.2 mg (2 x 8.6 mg) PO BEDTIME PRN 60 caps 6RF constipation K59.00 - Constipation, unspecified Coding Level of Care Code Est Pt Level 3 (25611) Diagnoses Constipation K59.00 GERD (gastroesophageal reflux disease) K21.9
[2025-01-21 12:15] VITALS: BP 176/81; PULSE 73; BMI 25.9
--- OUTSIDE RECORDS SUMMARY | 2025-01-21 12:29 | XMS_ITS | Data Portability ---
Author Organization [facility], [facility] Address [address] [place] [address] Assessment No assessment recorded. Plan of Treatment Reminders Order Date Submit Date Provider Last Modified By Organization Details Last Modified Time Details Appointments None recorded. Lab [id number]-B27, blood - Ankylosis Spondylit is Labs 2023 024 BROOKLYNN [facility] (Centralized Electronic Ordering - All Locations), Patient Can Go To The Location Of Their Choice, [address] 21:34:03 hla-B27, blood - Ankylosis Spondylit is Labs 2023 024 [email or web address] [facility] (Centralized Electronic Ordering - All Locations), Patient Can Go To The Location Of Their Choice, [id number] 13:00:12 Referral physical therapist referral - Evaluate & RxCervica l Stabiliza tion Program, DISH with significa ntly decreased ROM and neck/shou lder pain 2023 [facility], [address], [place], [address], 07:26:05 pain managemen t referral - neck pain, cervical DISH, MRI completed 2023 024 [email or web address] [facility], [address] [place] [address], [address], 14:04:48 physical therapist referral - Evaluate & RxCervica l Stabiliza tion Program. Please include thoracic stabiliza tion program as well 2023 024 BROOKLYNN Not available 09:53:28 Procedures None recorded. Surgeries None recorded. Imaging MRI, cervical spine, w/o contrast - neck pain with DISH, arm pain 2023 024 [email or web address] [address], [place], [address], 4 07:42:04 XR, cervical spine, 4 or 5 view - 325 new pt c-spine series, please include t-spine 2v 2023 024 [email or web address] [facility], [address], [place], [address], 4 13:00:12 XR, thoracic spine, 2 view - 325 new pt c-spine series, please include t-spine 2v 2023 024 [email or web address] [facility], [address], [place], [address], 4 13:00:12 Medication Orders meloxicam 15 mg tablet [id number], [address] [place], [address], 4 16:06:47 Patient TargetsNo targets recorded. Patient InstructionsNo instructions recorded. 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 Seque nce Based Typin g (SBT) may be used as a suppl ement al metho d when neces libia. If you have quest ions, pleas e call HLA custo amos servi ce at [phone] or email at [facility] [email or web address]. Not Available [facility] ([facility]) [address], [place], [address], 03/22/2024 21:34:03 03/18/20 24 03/15/2024 MRI, cervi deisy spine , w/o contr ast [facility] Access ion Number : [id number] Name: Bobby Velasco Record Number : [id number] Date of : 1964 Date of Exam: 2023 Referr ing Physic raul: Rebecca avendaño, Alessandra [facility]sales [facility] [address] [facility], [place] [address] Exam: MR Cervic al Spine (C-) CPT 88755 Room Descri ption: [facility] Pion 3T MRI of the cervic [...] onical ly Signed By: Nicanor Tatum MD [address] [facility]) [address], [place], [address], 03/18/2024 08:45:12 Result Notes None recorded. Problems Name Problem SNOMED Code Status Onset Date Resolution Date Notes Provider Name and Address Organization Details Recorded Time Diffuse idiopathic skeletal hyperostosi s of cervicothor acic spine 7130235391362 00 Active 2023 Sergio Hackett MD [address] [facility] [address], [place], [address] , [place] [facility] 4 10:48:45 Ankylosis of spine 62087928 Active 2023 Sergio Hackett MD [facility] [address], [place], [address], [facility] 4 10:48:46 Problem Notes None recorded. Medical Equipment None Reported. Allergies Allergen ID Allergen Name Allergen Category Reaction Reaction Severity Criticality Documentation Date Start Date Code Code System Note Provider Name and Address Organization Details Recorded Time 106502 clindamyc in Not available Not available Not available Not available 12/19/2023 2582 RxNorm SANDEEP GUERRERO [facility] 4 13:54:21 655307 doxycycli ne Not available Not available Not available Not available 12/19/2023 3640 RxNorm SANDEEP GUERRERO [facility] 13:54:26 233412 Product containin g penicilli n (product) medicatio n Not available Not available Not available 12/19/2023 82219 8001 SNOMED SANDEEP GUERRERO [facility] 4 13:54:31 Medications Name Sig Start [...] Updated DateTime 12/20/2023 170.18 cm 29.8 kg/m2 95722.55 g SANDEEP GUERRERO [facility] 12/20/2023 10:13:56 Date Recorded Body height Body mass index (BMI) Body weight Provider Name and Address Organization Details Last Updated DateTime 03/14/2024 170.18 cm 29.8 kg/m2 06051.55 g Raji Hdz [facility] 03/14/2024 10:07:08 Social History None recorded. Functional Status None recorded. Mental Status None recorded. Family History Nothing Reported. Medical History Condition Response Allergies/Hayfever N Coronary Artery Disease N Anxiety/Depression N Emphysema N Thyroid Problems N COPD N Pacemaker N Anemia N Kidney/Bladder Problems N Vascular Disease N Heart Attack ([place]) N Gastrointestinal Disease Y Diabetes Y Autoimmune [...] SNOMED-CT Code Diagnosis ICD10 Code Diagnosis Note [id number] Sergio Hackett MD [facility] [address] [place] [address] 12/20/2023 09:32:46 01/09/2024 12:19:40 Neck pain 19267013 M54.2 Diffuse id iopathic skeletal hyperostosis of cervicothoracic spine 1774793510 34748 M48.13 58-year-ol d male with cervical, thoracic [...] will follow-up afterwards . Ankylosis of spine 12093 007 M43.20 [id number] Alessandra Lopez CNP [facility] [address] [place] [address] 03/14/2024 09:47:09 03/29/2024 07:42:04 Neck pain 38762508 M54.2 Diffuse id iopathic skeletal hyperostosis of cervicothoracic spine 2248664884 82780 M48.13 [id number] Alessandra Lopez CNP [place] [address] [place] [address] 03/29/2024 15:34:17 03/29/2024 16:06:58 Neck pain 76776141 M54.2 Diffuse id iopathic skeletal hyperostosis of cervicothoracic spine 3182820752 70236 M48.13 Health Concerns Section Related Observation LastModified by Organization Detai ls LastModified Time None Recorded Concern Status LastModified by Organization Details LastModified Time None Recorded Advance Directives Directive None Recorded Payers Encounter Date Sequence Insurance Name Policy Number Policy Ortiz Covered Member ID Ortiz Member ID Guarantor Name 12/20/2023 1 [facility] - DOS ON OR AFTER 2022 - ONE CARE (MEDICARE REPLACEMENT/ADV ANTAGE - HMO) Bobby Velasco [id number] Bobby Velasco 03/14/2024 1 [facility] - DOS ON OR AFTER 2022 - ONE CARE (MEDICARE REPLACEMENT/ADV ANTAGE - HMO) Bobby Velasco [id number] Bobby Velasco 03/29/2024 1 [facility] - DOS ON OR AFTER 2022 - ONE CARE (MEDICARE REPLACEMENT/ADV ANTAGE - HMO) Bobby Velasco [id number] Bobby Velasco Notes Date Note Type Note [...] therapy in the past. Sergio Hackett MD [address] [place] [address], [address], [facility] 12/20/2023 10:49:09 03/14/2024 text/html I am [...] relief FOLLOW UP: MRI review Speech recognition direct marketing specialist software was used to create portions of this document. An attempt at proofreading has been made to minimize errors. Please call for corrections. Alessandra Lopez, EYEGLASS FITTER [address] [facility] [address], [place], [address], [facility] 03/14/2024 16:53:17 03/29/2024 text/html [...] discussed with the patient today.1. referral to [facility] for evaluation for injection therapy. copy of referral mailed2. HLA negative, no ankylosing spondylitis3. continue physical therapy4. OTC NSAIDs and tylenol not helping much. I prescribed meloxicam. medication education provided. We also discussed muscle relaxers, but patient opted to hold off for now.5. recommend topicals for pain relief FOLLOW UP: prn Speech recognition direct marketing specialist software was used to create portions of this document. An attempt at proofreading has been made to minimize errors. Please call for corrections. time spent: > 20 minutes including independent review of MRI and telephone consultation Alessandra Lopez, EYEGLASS FITTER [address] [facility] [address], [place], [address], [place] [facility] 03/31/2024 18:31:56
== END 2025-01-21 12:48 | disposition home or self-care (01) ==
LOC: HO.HGI 12:08
PROVIDERS: PCP Family Medicine; Visit Provider Nurse Practitioner
DX: K59.00 Constipation, unspecified (principal); K21.9 Gastro-esophageal reflux disease without esophagitis
CPT/HCPCS: 99213

== ENCOUNTER → 2025-01-21 12:07 | Outpatient (BNVA) | payer OTHER, SELFPAY | PROVIDERS: PCP Family Medicine; Visit Provider Nurse Practitioner | DX: K21.9 Gastro-esophageal reflux disease without esophagitis (principal); K59.00 Constipation, unspecified | CPT/HCPCS: 99212 ==

== ENCOUNTER 2025-02-10 08:59 | Outpatient (REF) | payer OTHER, SELFPAY ==
--- NOTE | ~2025-02-10 | CT_ITS ---
CLINICAL HISTORY: R91.8 - Other nonspecific abnormal finding of lung field CT chest without contrast Comparison: None Findings: The heart is normal size. Moderate Atherosclerosis calcification of the coronary arteries The visualized thyroid and mediastinum are unremarkable. The lungs are clear. There are calcified granulomas. 9.7 mm nodular density of the left lower lobe. There are small para fissural nodules of the right middle lobe. The upper abdomen is unremarkable. Bilateral gynecomastia. The bones are intact. IMPRESSION: 9.7 mm nodular density of the left lower lobe. CT chest follow-up in 3 months is recommended. Fleischner Society 2017 Guidelines for incidentally detected indeterminate nodules in persons 35 years of age or older. Single Solid Nodules: 5 mm or smaller nodules need no follow-up in low risk, and [address] follow-up is optional in high risk patients. 6-8 mm nodules have optional [address] follow-up in low risk, and 6-[address] follow-up followed by 18-[address] follow-up if no change in high risk patients. 9 mm or larger nodules should consider CT, PET/CT, or biopsy at 3 months regardless of patient risk. Multiple Solid Nodules: 5 mm or smaller nodules need no follow-up in low risk, and [address] follow-up is optional in high risk patients. 6-8 mm nodules need 3-[address] follow-up followed by an optional 18-[address] follow-up regardless of patient risk. 9 mm or larger nodules should consider 3-[address] follow-up. For low risk 18-24 month follow-up is optional, whereas for high risk it is needed. Single Ground Glass Nodules: 5 mm or smaller nodules need no followup 6 mm and larger nodules need CT at 6-12 months to confirm persistence, then CT every 2 years until 5 years Single Subsolid Nodules: 5 mm or smaller nodules need no followup 6 mm and larger nodules need CT at 3-6 months to confirm persistence. If no change and solid component /T/lt;6 mm, then CT every year until 5 years Multiple Ground Glass or Subsolid Nodules: 5 mm or smaller nodules need CT at 3-6 months. If stable, optional CT at 2 and 4 years. 6 mm or larger nodules need CT at 3-6 months. Subsequent management based on most suspicious nodule This document has been electronically signed by: Alpesh Reyes MD on 02/10/2025 17:19:25
--- NOTE | ~2025-02-10 | US_ITS ---
CLINICAL HISTORY: N20.0 - Calculus of kidney US renal with Color Doppler Comparison: None Findings: Right kidney normal size and echotexture, 11.6 cm length. No hydronephrosis calculus or mass. Normal color flow. Left kidney normal size and echotexture, 11.1 cm length. No hydronephrosis calculus or mass. Normal color flow. Probable benign renal cortical cysts mid to lower pole measuring 1.0 x 0.9 x 0.9 cm and 1.4 x 1.1 x 1.3 cm. Impression: 1. No nephrolithiasis or hydronephrosis. Kidneys are normal size and position with normal cortical width and echotexture. Probable incidental renal cortical cysts mid to lower pole left kidney. Correlate with previous ultrasound and CT exams. Otherwise, six-month follow-up ultrasound recommended. This document has been electronically signed by: Henry Lenz MD on 02/11/2025 08:46:01
--- OUTSIDE RECORDS SUMMARY | 2025-02-10 09:31 | XMS_ITS | Clinical Summary ---
Author Organization [address] [facility] Address [address] [place] [address] Phone Care Team Providers Care Building Construction Foreman Name Role Phone Ashley Frankel MD Primary Care Provider [phone]- [phone] Allergies Active Allergy Reactions Criticality Noted Date Comments Clindamycin Anaphylaxis,Unknown High 03/29/2012 Doxycycline Diarrhea,Unknown Low 01/31/2023 Penicillins Anaphylaxis,Unknown High 04/06/2012 Other reaction(s): UNKNOWN REACTION-CHILDHOOD Medications No known medications Encounters Date Type Department Care Team Description 01/14/2025 9:00 AM EDT Consult Orthopedic Surgery [facility] [address] [facility] [address] [place] [address] Raheel Slater, PORTER Pain in toes of both feet (Primary Dx); Enlarged and hypertrophic nails; Arthritis of both feet; Lumbosacral radiculopathy from Last 3 Months Medical History Medical History Date Comments Hypertension Diabetes mellitus ([facility] V24, [facility] V28) Social History Tobacco Use Types Packs/Day [...] LAB CHEMISTRY METHOD 10/12/2024 12:[address] [facility] Potassium 4.3 3.5 - 5.5 mmol/L LAB CHEMISTRY METHOD 10/12/2024 12:[address] [facility] Chloride 107 96 - 110 mmol/L LAB CHEMISTRY METHOD 10/12/2024 12:[address] [facility] CO2 30 21 - 32 mmol/L LAB CHEMISTRY METHOD 10/12/2024 12:[address] [facility] Anion Gap 1(L) [...] BLOOD ORDERABLES Final Result [facility] [address] [place] [address], from Last 3 Months or Most Recently Relevant to Health Maintenance Insurance [facility] MEDIC[facility] Member Subscriber Plan / Payer (Ef fective 2023-Present) Name:BOBBY WAY Relation to Subscriber:Self Name:Bobby Way Payer ID:[id number] Group ID:[id number] Type:Not on file Address: [place] [address] [address] [address] Care Teams Building Construction Foreman Relationship Specialty Start Date End Date MoriahAshley buck MD [address] [place] [id number] PCP - General Family Medicine 08/09/24
== END 2025-02-10 09:00 | disposition home or self-care (01) ==
LOC: HO.CT 08:59
PROVIDERS: PCP Family Medicine; Visit Provider Hospitalist
DX: R91.8 Other nonspecific abnormal finding of lung field (principal); N20.0 Calculus of kidney; N13.1 Hydronephrosis with ureteral stricture, not elsewhere classified; N20.1 Calculus of ureter
CPT/HCPCS: 71250; 76775

== ENCOUNTER → 2025-02-10 09:01 | Outpatient (BNV) | payer OTHER, SELFPAY | PROVIDERS: PCP Family Medicine; Visit Provider Nuclear Medicine | DX: R91.8 Other nonspecific abnormal finding of lung field (principal) | CPT/HCPCS: 71250 ==

== ENCOUNTER 2025-02-11 09:45 | Outpatient (REF) | payer OTHER, SELFPAY ==
[2025-02-11 12:18] LABS: Anion Gap 11 (12-20); Blood Urea Nitrogen 18 mg/dL (9-16); C Reactive Protein < 0.04 mg/dL (< or = 0.50); Calcium 9.2 mg/dL (8.4-10.2); Carbon Dioxide 27 mmol/L (22-29); Chloride 109 mmol/L (96-108); Estimated Glomerular Filt Rate > 60; Glucose Random 130 mg/dL (60-115); Iron 72 mcg/dL (45-160); Percent Iron Saturation 25 % (15-50); Potassium 3.8 mmol/L (3.3-5.1); Sodium 143 mmol/L (135-145); Total Iron Binding Capacity 284 mcg/dL (228-428); Unsaturated Iron Binding 212 ug/dL
[2025-02-11 12:21] LABS: Ferritin 52 ng/mL (20-250)
[2025-02-11 12:33] LABS: Erythrocyte Sedimentation Rate 3 MM/HR (0-15)
[2025-02-11 12:45] LABS: Folate 7.9 ng/mL (> or = 4.0); Vitamin B12 286 pg/mL (200-900)
[2025-02-12 16:22] LABS: Immunoglobulin A 324 mg/dL (47-310); Transglutaminase IgA <1.0 U/mL
== END 2025-02-11 09:46 | disposition home or self-care (01) ==
LOC: HO.HHCL 09:45
PROVIDERS: PCP Family Medicine; Visit Provider Family Medicine
DX: R10.84 Generalized abdominal pain (principal); I10 Essential (primary) hypertension
CPT/HCPCS: 36415; 80048; 82607; 82728; 82746; 82784; 83540; 85652; 86140; 86364

== ENCOUNTER 2025-02-15 21:59 | Emergency (ER) | payer OTHER, SELFPAY ==
--- NOTE | 2025-02-15 | ECG_ITS ---
Test Reason : EPIGASTRIC PAIN Blood Pressure : */* mmHG Vent. Rate : 56 BPM Atrial Rate : 56 BPM P-R Int : 142 ms QRS Dur : 92 ms QT Int : 440 ms P-R-T Axes : 48 75 55 degrees QTcB Int : 424 ms Sinus bradycardia Otherwise normal ECG When compared with ECG of 28-Dec-2024 09:56, No significant change was found Referred By: Generic ED Physician Electronically Signed By: Joaquin Saunders
[2025-02-15 22:04] VITALS: BP 169/91; PULSE 66; RESP 18; TEMP 36.6; O2SAT 99; BMI 26.3
[2025-02-15 22:38] LABS: MANUAL DIFF FLAG NO
[2025-02-15 22:39] LABS: Basophils Percent Auto 0.5 % (0-2); Eosinophils Absolute Auto 0.1 X10*3/uL (0.0-0.4); Eosinophils Percent Auto 1.3 % (0-4); Hematocrit 38.1 % (42.0-52.0); Hemoglobin 13.1 g/dl (14.0-18.0); Imm Gran Abs Auto 0.01 X10*3/uL (0.00-0.03); Imm Gran Pct Auto 0.2 % (0.0-0.4); Lymphocytes Absolute Auto 1.7 X10*3/uL (1.2-4.9); Lymphocytes Percent Auto 31.4 % (20-40); Mean Corpuscular HGB Conc 34.4 g/dl (31.0-36.0); Mean Corpuscular Hemoglobin 30.6 pg (27.0-33.0); Monocytes Absolute Auto 0.6 X10*3/uL (0.1-1.2); Monocytes Percent Auto 10.3 % (2-11); Neutrophils Absolute Auto 3.1 x10*3/uL (2.0-8.3); Neutrophils Percent Auto 56.3 % (45-73); Platelet Count 241 X10*3/uL (160-400); Red Blood Count 4.28 X10*6/uL (4.60-5.80); White Blood Count 5.6 X10*3/uL (4.8-10.8)
[2025-02-15 22:52] LABS: Alanine Aminotransferase 15 U/L (0-40); Albumin Level 4.4 g/dL (3.5-5.0); Alkaline Phosphatase 92 U/L (39-117); Anion Gap 12 (12-20); Aspartate Amino Transferase 27 U/L (5-37); Bilirubin Total 1.2 mg/dL (0.0-1.0); Blood Urea Nitrogen 16 mg/dL (9-16); Calcium 9.1 mg/dL (8.4-10.2); Carbon Dioxide 25 mmol/L (22-29); Chloride 107 mmol/L (96-108); Creatinine Clr Calc Pharmacy 67.3; Estimated Glomerular Filt Rate > 60; Glucose Random 104 mg/dL (60-115); Potassium 3.6 mmol/L (3.3-5.1); Sodium 140 mmol/L (135-145); Total Protein 6.8 g/dL (6.5-8.0)
[2025-02-15 22:59] LABS: Troponin-I High Sensitivity 7.5 ng/L (<3.5-35.0)
--- NOTE | 2025-02-15 23:59 | ED_ITS ---
HPI - Abdominal Pain General Chief Complaint: Abdominal Pain Stated Complaint: upper abd pain Time Seen by Provider: 02/15/25 23:54 History of Present Illness ED Provider: Dr. Mitch Baker HPI narrative: 59-year-old male with a past medical history of constipation, hydronephrosis, hypertension, BPH, GERD who presents emergency department for evaluation of chest pain, abdominal pain and constipation. The patient states for the past 3 weeks he has been having stomach pain. He points to his epigastric area and describes as a constant, burning sensation. Patient states that prior to coming to the emergency department, he was watching television when he had sudden onset of sternal pain. He describes the pain is a tightness which lasted 3-5 minutes then resolved. He had no associated symptoms such as lightheadedness, dizziness, diaphoresis, neck pain, jaw pain, arm pain or back pain. Patient states he has been constipated in his not moved his bowels in 3 days. He denied fever, chills, nausea, vomiting, frequency, urgency or dysuria. Related Data Home Medications ?Medication ?Instructions ?Recorded ?Confirmed aspirin 81 mg tablet,delayed 81 mg PO DAILY 08/04/20 0 09/30/24 release blood sugar diagnostic (FreeStyle #10 ea 06/22/2102/26 Lite Strips) lancets 33 gauge (TRUEplus Lancets) #100 ea 06/22/21 0 03/22/24 chlorthalidone 25 mg tablet 25 mg PO DAILY 06/09/23 Held on 10/02/24. Instructions: Resume on 10/03/24. hydroxyzine HCl 25 mg tablet 25 mg PO QID PRN Anxiety 02/09/24 09/30/24 atorvastatin 80 mg tablet 80 mg PO DAILY 10/01/2412/20 Previous Rx's ?Medication ?Instructions ?Recorded acetaminophen 500 mg tablet 1,000 mg (2 x 500 mg) PO Q 6H PRN 12/16/23 (Tylenol Extra Strength) fever or pain #20 tabs amlodipine 10 mg tablet 10 mg PO DAILY #90 tabs 05/29 04/20 lisinopril 40 mg tablet 40 mg PO DAILY #90 tabs 0 12/19 Held on 10/02/24. Instructions: Resume on 10/04/24. meclizine 25 mg tablet 25 mg PO BID PRN dizziness # 14 tabs 07/19/24 albuterol sulfate 90 mcg/actuation 2 puff inhalation Q 6H PRN dyspnea 11/19/24 aerosol inhaler 30 days #8.5 grams cetirizine 10 mg tablet (Zyrtec) 10 mg PO DAILY PRN Al lergies 30 11/19/24 days #30 tabs docusate sodium 100 mg capsule 100 mg PO .qhs #30 caps 11/19/24 (Colace) fluticasone propionate 50 2 spray intranasal DAILY 30 days 11/19/24 mcg/actuation nasal #15.8 mL spray,suspension terazosin 5 mg capsule 5 mg PO BEDTIME 90 days #90 caps 11/19/24 ondansetron 4 mg disintegrating 4 mg PO DAILY PRN naus ea and 11/29/24 tablet vomiting 5 days #10 tabs doxycycline hyclate 100 mg tablet 100 mg PO BID 7 days #14 tabs 01/17/25 bisacodyl 5 mg tablet,delayed 10 mg (2 x 5 mg) PO BEDT CARLY 30 01/21/25 release (Dulcolax (bisacodyl)) days #60 tabs famotidine 40 mg tablet 40 mg PO DAILY PRN for heart burn 01/21/25 #90 tabs omeprazole 20 mg capsule,delayed 20 mg PO DAILY 30 day s #30 caps 02/16/25 release sennosides 17.2 mg tablet (Senokot 17.2 mg PO BID PRN constipation 02/16/25 Extra Strength) #20 tabs Allergies Allergy/AdvReac Type Severity Reaction Status Date / Time amoxicillin (AMOXICILLIN) Allergy Severe ANAPHYLAXIS Verified 02/15/25 22:14 Penicillins Allergy Severe UNKNOWN Verified 02/15/25 22:14 REACTION-CHILDHOOD doxycycline (From VIBRAMYCIN) AdvReac Mild DIARRHEA Verified 02/15/25 22:14 Clindamycin HCl Allergy Severe Anaphylaxis Uncoded 02/15/25 22:14 Review of Systems Review of Systems Yes all other systems are reviewed and are negative [facility] Past Medical History [facility] Narrative: Social history: He denies tobacco, alcohol and drug use. Medical History (Updated 02/16/25 @ 00:21 by Mitch Baker MD) Renal calculus, right Constipation Opacity of lung on imaging study Pre-op examination GERD (gastroesophageal reflux disease) Orchialgia Weak urinary stream Asthma Nasal polyps Diabetes HTN (hypertension) Pulmonary nodules Surgical History History of esophagogastroduodenoscopy (EGD) Hx of colonoscopy H/O wrist surgery Family History Family History Father Diabetes Hypertension Mother Hypertension Hyperlipidemia Brother Hypertension Family/Other Kidney stones Prostate cancer Bladder cancer Renal cancer Social History Social History Household Members: None Housing: Apartment Alcohol intake: former Patient Tobacco Use Status: Former Tobacco user Tobacco use type: Cigarette Years Smoked: 30 years Smoked in Last 30 Days: No Use of substances other than those prescribed or required for medical reasons: No Advance Directives: No Advance Directives Information Provided: No Do you have a plan to hurt others: No Plan service: No Physical Exam ED Vital Signs: Vital Signs - 24 hr 02/15/25 22:04 Temperature 97.9 F Pulse Rate 66 Respiratory Rate 18 Blood Pressure 169/91 H Pulse Oximetry 99 Oxygen Delivery Method Room Air BMI result Body Mass Index 26.3 Vital signs revealed an elevated blood pressure of 169/91 otherwise unremarkable Exam: General: Awake, alert in no distress Head: Normocephalic, atraumatic EENT: PERRL, Lids normal, sclera normal, conjunctiva normal, nose normal , ears normal, throat without erythema or exudates Neck: Supple, no adenopathy Lung: breath sounds symmetric, no wheezing, rales or rhonchi Chest: symmetric movement, nontender Heart: regular rate and rhythm, normal S1, S2 no murmurs or rubs Abdomen: soft, mild to moderate epigastric tenderness, nondistended, normal bowel sounds, no rebound Back: no vertebral tenderness, no CVAT Extremities: no deformities, moves all extremities symmetrically Neuro: Awake, alert, oriented, normal speech, cranial nerves intact, moves all extremities symmetrically Psych: Pleasant, cooperative Medical Decision Making Medical Decision Making MDM Narrative: 59-year-old male with a past medical history of constipation, hydronephrosis, hypertension, BPH, GERD who presents emergency department for evaluation of chest pain, abdominal pain and constipation. The patient states for the past 3 weeks he has been having stomach pain. He points to his epigastric area and describes as a constant, burning sensation. Patient states that prior to coming to the emergency department, he was watching television when he had sudden onset of sternal pain. He describes the pain is a tightness which lasted 3-5 minutes then resolved. He had no associated symptoms such as lightheadedness, dizziness, diaphoresis, neck pain, jaw pain, arm pain or back pain. Patient states he has been constipated in his not moved his bowels in 3 days. He denied fever, chills, nausea, vomiting, frequency, urgency or dysuria. Vital signs revealed an elevated blood pressure otherwise unremarkable. Exam did reveal epigastric tenderness otherwise was unremarkable. Differential diagnosis: ?Includes but is not limited to gastritis, esophagitis, myocardial infarction, myocardial ischemia, musculoskeletal pain, constipation, anemia, electrolyte abnormalities Course: 00:27 My independent interpretation patient's laboratory evaluation is as follows: Normocytic anemia with an H&H of 13 and 38 with an MCV of 89. LFTs were normal. Twelve EKG was unremarkable. Patient's abdominal pain is consistent with gastritis and I suspect that the patient may have had salpingitis which causes chest pain this evening. Patient was prescribed Prilosec 20 mg once a day for 1 month. Told the patient that he should increase his fluid intake and stay on a high-fiber diet for his constipation. He was also prescribed extra-strength Senokot 1 pill q.12 hours for 3-4 days as needed for constipation. I told him that he should take 1 week off between treatment doses and not take it continuously. He was given printed and verbal instructions and discharged home. Admission/Observation Consideration of admission/observation: Escalation of care including admission/observation considered (Yes) Lab Data MDM Lab Attestation statement: I reviewed the patient's lab results. 02/15/25 22:33 02/15/25 22:33 Labs: Lab Results 02/15/25 Range/Units 22:33 WBC 5.6 (4.8-10.8) X10*3/uL RBC 4.28 L (4.60-5.80) X10*6/uL Hgb 13.1 L (14.0-18.0) g/dl Hct 38.1 L (42.0-52.0) % MCV 89.0 (80.0-98.0) fL MCH 30.6 (27.0-33.0) pg MCHC 34.4 (31.0-36.0) g/dl RDW 13.0 (11.0-16.0) % Plt Count 241 (160-400) X10*3/uL MPV 10.0 (9.4-12.4) fL Immature Gran % (Auto) 0.2 (0.0-0.4) % Neut % (Auto) 56.3 (45-73) % Lymph % (Auto) 31.4 (20-40) % [place] % (Auto) 10.3 (2-11) % Eos % (Auto) 1.3 (0-4) % Baso % (Auto) 0.5 (0-2) % Lymph # (Auto) 1.7 (1.2-4.9) X10*3/uL [place] # (Auto) 0.6 (0.1-1.2) X10*3/uL Eos # (Auto) 0.1 (0.0-0.4) X10*3/uL Baso # (Auto) 0.0 (0.0-0.2) X10*3/uL Abs Immat Gran (auto) 0.01 (0.00-0.03) X10*3/uL Absolute Neuts (auto) 3.1 (2.0-8.3) x10*3/uL Absolute Nucleated RBC 0.000 (0.0-0.012) X10*3/uL Nucleated RBC % (auto) 0.0 (0.0-0.2) /100WBC Sodium 140 (135-145) mmol/L Potassium 3.6 (3.3-5.1) mmol/L Chloride 107 (96-108) mmol/L Carbon Dioxide 25 (22-29) mmol/L Anion Gap 12 (12-20) BUN 16 (9-16) mg/dL Creatinine 1.09 (0.5-1.4) mg/dL Estim Creat Clear Calc 67.3 Estimated GFR > 60 Random Glucose 104 (60-115) mg/dL Calcium 9.1 (8.4-10.2) mg/dL Total Bilirubin 1.2 H (0.0-1.0) mg/dL AST 27 (5-37) U/L ALT 15 (0-40) U/L Alkaline Phosphatase 92 (39-117) U/L Troponin I High Sens 7.5 (<3.5-35.0) ng/L Total Protein 6.8 (6.5-8.0) g/dL Albumin 4.4 (3.5-5.0) g/dL Independent Interpretation I performed an independent interpretation of an: EKG Interpretation: My independent interpretation of the patient's 12 EKG done on 02/15/2025 at 22:27 hours is as follows: Sinus bradycardia with a rate of 56, normal VA interval, QRS duration QTC interval, no ST segment elevation, no ST segment depression, no significant T-wave abnormalities, no PACs, no PVCs. Compared to an EKG dated 12/28/2024 at 09:56 hours, the bradycardia was new otherwise there is no other significant changes. Prescription Management I considered prescription management with: Other (Proton pump inhibitor: Prilosec, constipation medication: extra-strength Senokot) Chronic Conditions Patient?s care impacted by: Hypertension Discharge Plan Discharge Clinical Impression: Constipation, Chest pain Gastritis Qualifiers: Gastritis type: unspecified gastritis Chronicity: acute Gastritis bleeding: w ith bleeding Qualified Code(s): K29.01 - Acute gastritis with bleeding Patient Disposition: Home, Self-Care Instructions: Gastritis (ED), Constipation (ED) Additional Instructions: Your blood work was unremarkable. Your EKG was normal. Your stomach pain is caused by gastritis which is caused by too much acid in your stomach causing inflammation of your stomach. Take Prilosec (omeprazole) 20 mg pills, 1 pill once a day for 1 month. ?This medication shuts off your acid production and lets the inflammation in your stomach and esophagus heal. Your chest pain is most likely caused by your gastritis, sometimes acid can travel up your food tube (esophagus) in caused chest pain. I want you to increase the amount of fluid that you drink and stay on a high- fiber diet for your constipation. For your constipation I want you to take extra-strength Senokot 1 pill every 12 hours. You can take this for 3-4 days in a row as needed for constipation, but then you should not take you again for another week. Follow-up with your doctor in 2 days. Please return to the emergency department if your symptoms get worse or if you develop any symptoms that are concerning to you. Prescriptions: New omeprazole 20 mg capsule,delayed release(DR/EC) 20 mg PO DAILY 30 Days Qty: 30 0RF Senokot Extra Strength 17.2 mg tablet 17.2 mg PO BID PRN (Reason: constipation) Qty: 20 0RF No Action amlodipine 10 mg tablet 10 mg PO DAILY Qty: 90 3RF lisinopril 40 mg tablet 40 mg PO DAILY Qty: 90 3RF terazosin 5 mg capsule 5 mg PO BEDTIME 90 Days Qty: 90 1RF doxycycline hyclate 100 mg tablet 100 mg PO BID 7 Days Qty: 14 0RF acetaminophen [Tylenol Extra Strength] 500 mg tablet 1,000 mg PO Q6H PRN (Reason: fever or pain) Qty: 20 0RF meclizine 25 mg tablet 25 mg PO BID PRN (Reason: dizziness) Qty: 14 0RF atorvastatin 80 mg tablet 80 mg PO DAILY ondansetron 4 mg tablet,disintegrating 4 mg PO DAILY PRN (Reason: nausea and vomiting) 5 Days Qty: 10 0RF aspirin 81 mg tablet,delayed release (DR/EC) 81 mg PO DAILY (DME) lancets [TRUEplus Lancets] 33 gauge misc See Rx Instructions Not Applicable TID Qty: 100 Rx Instructions: As directed (DME) FreeStyle Lite Strips Strip See Rx Instructions Not Applicable TID Qty: 10 Rx Instructions: As directed chlorthalidone 25 mg tablet 25 mg PO DAILY hydroxyzine HCl 25 mg tablet 25 mg PO QID PRN (Reason: Anxiety) fluticasone propionate 50 mcg/actuation spray,suspension 2 spray intranasal DAILY 30 Days Qty: 15.8 11RF cetirizine [Zyrtec] 10 mg tablet 10 mg PO DAILY PRN (Reason: Allergies) 30 Days Qty: 30 10RF albuterol sulfate 90 mcg/actuation HFA aerosol inhaler 2 puff INHALATION Q6H PRN (Reason: dyspnea) 30 Days Qty: 8.5 11RF bisacodyl [Dulcolax (bisacodyl)] 5 mg tablet,delayed release (DR/EC) 10 mg PO BEDTIME 30 Days Qty: 60 6RF famotidine 40 mg tablet 40 mg PO DAILY PRN (Reason: for heartburn) Qty: 90 4RF docusate sodium [Colace] 100 mg capsule 100 mg PO .qhs Qty: 30 6RF Print Language: Belarusian
[2025-02-16 00:23] VITALS: BP 168/82; PULSE 54; RESP 14; TEMP 36.2; O2SAT 98
[2025-02-16 00:35] VITALS: BP 168/82; PULSE 54; RESP 14; TEMP 36.2; O2SAT 98
== END 2025-02-16 00:36 | disposition home or self-care (01) ==
PROVIDERS: Emergency Provider Emergency Medicine Emergency Medical Services; PCP Family Medicine
DX: K29.01 Acute gastritis with bleeding (principal); K59.00 Constipation, unspecified; R07.9 Chest pain, unspecified; R00.1 Bradycardia, unspecified; D64.9 Anemia, unspecified; R10.13 Epigastric pain; E11.9 Type 2 diabetes mellitus without complications; I10 Essential (primary) hypertension; E78.00 Pure hypercholesterolemia, unspecified; K21.9 Gastro-esophageal reflux disease without esophagitis; J45.909 Unspecified asthma, uncomplicated; Z86.19 Personal history of other infectious and parasitic diseases; Z87.442 Personal history of urinary calculi; Z87.891 Personal history of nicotine dependence; Z79.82 Long term (current) use of aspirin; Z79.02 Long term (current) use of antithrombotics/antiplatelets; Z79.899 Other long term (current) drug therapy
CPT/HCPCS: 36415; 80053; 84484; 85025; 93005; 99283; 99284

== ENCOUNTER → 2025-02-15 22:27 | Outpatient (BNV) | payer OTHER, SELFPAY | PROVIDERS: Emergency Provider Emergency Medicine Emergency Medical Services; PCP Family Medicine; Visit Provider Internal Medicine Cardiovascular Disease | DX: R00.1 Bradycardia, unspecified (principal) | CPT/HCPCS: 93010 ==

== ENCOUNTER 2025-03-04 10:22 | Outpatient (AMB) | payer OTHER, SELFPAY ==
--- NOTE | 2025-03-04 10:30 | A.OFFVIS_ITS ---
Intake Visit Reasons: 4M follow up/ US Intake Note: Patient is present for 4 mo follow up BPH / Nocturia Urology Medication:TERAZOSIN Antibiotic Allergy:PENICILLINS,AMOXICILLIN,DOXYCYCLINE,CLINDAMYCIN Blood Thinner:ASPIRIN Imaging : 02/11/25 Enrollment Consultant Required: No Accompanied by: Self / Same As Patient Allergies amoxicillin (AMOXICILLIN) Allergy (Severe, Verified 02/15/25 22:14) ANAPHYLAXIS Penicillins Allergy (Severe, Verified 02/15/25 22:14) UNKNOWN REACTION-CHILDHOOD doxycycline (From VIBRAMYCIN) Adverse Reaction (Mild, Verified 02/15/25 22:14) DIARRHEA Clindamycin HCl Allergy (Severe, Uncoded 02/15/25 22:14) Anaphylaxis HPI Comments Details: Bobby is a very pleasant male. He is a patient of Dr Frankel. He is seen in the office today for the following urologic conditions. - lower urinary tract symptoms - erectile dysfunction - nephrolithiasis Here for - terazosin three-month follow-up - minimal benefit. Would like to proceed with intervention. Office cystoscopy with high-riding bladder neck Urinary Symptoms Review - Difficulty with urination due to high-riding bladder neck - Frequent urination reported Nephrolithiasis Imaging - 10/22 Right kidney at 11 cm with moderate to severe hydroureteronephrosis. 4 x 7 x 9 mm stone in the distal ureter. - 02/19 renal ultrasound no evidence of stones bilateral Intervention - 10/22 Right ureteroscopy Composition - 10/22 right ureteral stone fragments--Calcium Oxalate Dihydrate ([place]) 20%, Calcium Oxalate Monohydrate ([place]) 80% Erectile dysfunction background type 2 diabetes Progressive 09/19 response to high-dose daily Cialis Labs - 08/20 T 320 PSA 0.7 Lower Urinary Tract Symptoms:? Current visit is for?further evaluation of, lower urinary tract symptoms, predominate obstructive symptoms ?- less nocturia.? Current treatment includes?medication, alpha jesus - tamsulosin 0.4 mg ? Symptoms include?09/16 , weak stream, straining, and are progressing ?10/17 improved stream Labs - 07/17 0.9, 09/20 0.9 ? Associated conditions? diabetes ?Yes ? erectile dysfunction ?Yes Office cystoscopy 10/22 Stone had been found at time of bladder ultrasound Prostate with volume 43 mL. Postvoid bladder volume 8 mL ? Treatment plan?daily tadalafil medications.? [facility] Medical History (Updated 02/17/25 @ 00:01 by Background Mednoza) Renal calculus, right Constipation Opacity of lung on imaging study Pre-op examination GERD (gastroesophageal reflux disease) Orchialgia Weak urinary stream Asthma Nasal polyps Diabetes HTN (hypertension) Pulmonary nodules Surgical History History of esophagogastroduodenoscopy (EGD) Hx of colonoscopy H/O wrist surgery Family History Father Diabetes Hypertension Mother Hypertension Hyperlipidemia Brother Hypertension Family/Other Kidney stones Prostate cancer Bladder cancer Renal cancer Social History Household Members: None Housing: Apartment Alcohol intake: former Patient Tobacco Use Status: Former Tobacco user Tobacco use type: Cigarette Years Smoked: 30 years service: No Assessment & Plan Assessment & Plan (1) BPH w urinary obs/LUTS: Code(s): N40.1 - Benign prostatic hyperplasia with lower urinary tract symptoms; N13.8 - Other obstructive and reflux uropathy Category: Medical (2) Nocturia more than twice per night: Code(s): R35.1 - Nocturia Category: Medical Plan 1. High-Riding Bladder Neck Causing Urinary Obstruction Surgical intervention is planned to address urinary obstruction due to high- riding bladder neck. Procedure involves prostate incisions, expected to reduce medication dependency. Post-operative care includes catheter use for two days and activity restrictions for one week. We discussed the nature of the decision and reasonable options for performing a prostate intervention. Interventions include TURP, GreenLight laser enucleation of the prostate, GreenLight laser ablation of the prostate, transurethral incision of the prostate, and I-Tend prostate procedure. Options such as medical therapy were discussed. The relative uncertainties and benefits related to each alternate procedure were adequately discussed. General surgical risks including, but not limited to, pain, bleeding, infection, myocardial infarction, pulmonary embolus, deep vein thrombosis and cerebrovascular accident which may result in further hospitalization were discussed. Full disclosure of the procedure as well as all major risks, benefits and complications were discussed including but not limited to damage to the urethra or bladder neck, recurrent BPH, retrograde ejaculation, bladder infection, urge, de julieta frequency, incomplete emptying, dysuria, remote chance of erectile dysfunction, epididymitis, and meatal stenosis. The success rate of the procedure was discussed. Success of the procedure in the short-term does not necessarily guarantee that long-term success will be maintained. Suitable follow up will need to be maintained. The patient showed understanding of discussion. An opportunity was provided for questions to be answered and wishes to proceed with the following procedure. - plasma button Discussion Notes I discussed with the patient that the renal ultrasound showed no evidence of kidney stones, which is positive news. We reviewed the urinary symptoms and the potential benefits of a surgical procedure to address the high-riding bladder neck. I explained the procedure, including the use of a catheter post- operatively and the need to avoid strenuous activities for a week. The patient was informed that the procedure could provide relief for up to ten years without medication. Patient Instructions - Continue taking terazosin as prescribed until the procedure. - Avoid strenuous activities for one week after the procedure. - Follow up in the office two days post-procedure for catheter removal. Medications: Refilled terazosin 5 mg PO BEDTIME 90 caps 0RF 90 days N13.8 - Other obstructive and reflux uropathy, N40.1 - Benign prostatic hyperplasia with lower urinary tract symptoms Patient Instructions: This note is constructed using voice recognition software. While every effort has been made to ensure accuracy border guard errors may have been included. Imaging studies, laboratory and physical exam results were discussed and reviewed in detail. No major barriers to patient understanding were identified. An opportunity to ask questions regarding the treatment plan was provided. All questions were answered. The patient expressed understanding and agreement with the above treatment plan. The patient is aware they should contact our office by phone for worsening of their current condition or the appearance of new urologic symptoms. Compliance is encouraged with any medications and followup testing that is ordered. It is a privilege to participate in the urologic care of your patient. If you have any questions or concerns regarding treatment for the above conditions, or other urologic issues, please do not hesitate to contact me. The office telephone contact is [phone]. Sincerely, Dr Kishore Dorsey MD, [facility] - Urology Compassionate Specialist Care for the Genitourinary System Coding Level of Care Code Est Pt Level 4 (05451) Complex EM visit Add On G2211 Diagnoses BPH w urinary obs/LUTS N40.1; N13.8 Nocturia more than twice per night R35.1
--- OUTSIDE RECORDS SUMMARY | 2025-03-04 11:14 | XMS_ITS | Data Portability ---
Author Organization [facility], [facility] Address [address] [place] [address] Assessment No assessment recorded. Plan of Treatment Reminders Order Date Submit Date Provider Last Modified By Organization Details Last Modified Time Details Appointments None recorded. Lab [id number], blood - Ankylosis Spondylit is Labs 2023 024 BROOKLYNN [facility] (Centralized Electronic Ordering - All Locations), Patient Can Go To The Location Of Their Choice, [address] 21:34:03 [id number]-B27, blood - Ankylosis Spondylit is Labs 2023 024 [email or web address] [facility] (Centralized Electronic Ordering - All Locations), Patient Can Go To The Location Of Their Choice, [address] 4 13:00:12 Referral physical therapist referral - Evaluate & Rx Cervical Stabiliza tion Program, DISH with significa ntly decreased ROM and neck/shou lder pain 2023 024 [facility], [address], [place], [address], 4 07:26:05 pain managemen t referral - neck pain, cervical DISH, MRI completed 2023 024 [email or web address] manuel [facility], [address] [place] [address], [address], 4 14:04:48 physical therapist referral - Evaluate & Rx Cervical Stabiliza tion Program. Please include thoracic stabiliza tion program as well 2023 024 BROOKLYNN Not available 05/28/202 4 09:53:28 Procedures None recorded. Surgeries None recorded. Imaging MRI, cervical spine, w/o contrast - neck pain with DISH, arm pain 2023 024 [email or web address] [facility] ([facility]), [address], [place], [address], 4 07:42:04 XR, cervical spine, 4 or 5 view - 325 new pt c-spine series, please include t-spine 2v 2023 024 [email or web address] [facility], [address], [place], [address], 4 13:00:12 XR, thoracic spine, 2 view - 325 new pt c-spine series, please include t-spine 2v 2023 024 [email or web address] [facility], [address], [address], [place], [address], 4 13:00:12 Medication Orders meloxicam 15 mg tablet [id number], [address] [place], [address], 4 16:06:47 Patient TargetsNo targets recorded. Patient InstructionsNo instructions recorded. 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 Seque nce Based Typin g (SBT) may be used as a suppl ement al metho d when neces libia. If you have quest ions, pleas e call HLA custo amos servi ce at [phone] or email at [email or web address]. Not Available [facility] ([facility]) [address] [facility], [place], [address], 03/22/2024 21:34:03 03/18/20 24 03/15/2024 MRI, cervi deisy spine , w/o contr ast [facility] Access ion Number : [id number] Name: Bobby Velasco Record Number : [id number] Date of : 1964 Date of Exam: 2023 Referr ing Physic raul: Rebecca avendaño, Alessandra [facility]sales [facility] [address] [facility] [address] Exam: MR Cervic al Spine (C-) CPT 26610 Room Descri ption: [facility] Pion 3T MRI of the cervic al [...] ing. Electr onical ly Signed By: Nicanor bartlett[address] [facility] ([facility]) [address], [place], [address], 03/18/2024 08:45:12 Result Notes Documentation Provider Name and Address Organization Details Recorded Time Mri, Cervical Spine, W/o Contrast : [facility]ion Number: [id number] Patient Name: Bobby Velasco Date of : 1965 Date of Exam: 03-15-2024 Referring Physician: Alessandra Lopez [facility] [address] [place], [place] [address] Exam: MR Cervical Spine (C-) CPT 30025 Room Description: [facility] 3T MRI of the cervical spine without contrast. HISTORY: Neck pain. Bilateral arm pain and paresthesia. Limited range of motion of the neck. DISH COMPARISON: None. FINDINGS: The cervical cord appears normal in caliber and signal intensities. The alignment is normal. No vertebral body fracture is seen. The bone marrow signals are within normal limits. Prominent ankylosing osteophytes are seen throughout the cervical spine. The intervertebral disc spaces are preserved. The paraspinal muscles are within normal limits. C2-C3 level has a mild disc bulge. No stenosis or neural foramen narrowing. C3-C4 level has a mild disc bulge. There is a left uncovertebral joint osteophyte causing mild left Mild neural foramen narrowing. C4-C5 level has a mild disc bulge without disc herniation or stenosis. No neuroforamen narrowing. C5-C6 level has a mild disc bulge. No stenosis or neuroforaminal narrowing. Bilateral facet joints are mildly degenerative. C6-C7 level has a tiny central disc protrusion. The ventral subarachnoid space is effaced. No cord compression. No neural foramen narrowing. C7-T1 level has no disc herniation, stenosis or neural foraminal narrowing. The major vascular flow voids are intact. The prevertebral and paravertebral soft tissues are within normal limits. IMPRESSION: The cervical cord is normal. Prominent ankylosing osteophytes of cervical spine. Mild spondylosis without stenosis or neural foramen narrowing. Electronically Signed By: Nicanor Lopez, BIOMEDICAL ENGINEERING TECHNOLOGIST [address], [place], [address], [facility] 03/18/2024 08:45:12 Problems Name Problem SNOMED Code Status Onset Date Resolution Date Notes Provider Name and Address Organization Details Recorded Time Diffuse idiopathic skeletal hyperostosi s of cervicothor acic spine 5738643059933 00 Active 2023 Sergio Hackett MD [address], [place], [address], [facility] 10:48:45 Ankylosis of spine 38170047 Active 2023 Sergio Hackett MD [address], [place], [address], [facility] 10:48:46 Problem Notes None recorded. Medical Equipment None Reported. Allergies Allergen ID Allergen Name Allergen Category Reaction Reaction Severity Criticality Documentation Date Start Date Code Code System Note Provider Name and Address Organization Details Recorded Time 618771 clindamyc in Not available Not available Not available Not available 12/19/2023 2582 RxNorm SANDEEP GUERRERO [facility] 4 13:54:21 449651 doxycycli ne Not available Not available Not available Not available 12/19/2023 3640 RxNorm SANDEEP GUERRERO [facility] 4 13:54:26 146937 Product containin g penicilli n (product) medicatio n Not available Not available Not available 12/19/2023 21632 8001 SNOMED SANDEEP GUERRERO [facility] 13:54:31 Medications Name Sig Start Date Stop [...] Updated DateTime 12/20/2023 170.18 cm 29.8 kg/m2 62129.55 g SANDEEP GUERRERO [facility] 12/20/2023 10:13:56 Date Recorded Body height Body mass index (BMI) Body weight Provider Name and Address Organization Details Last Updated DateTime 03/14/2024 170.18 cm 29.8 kg/m2 55096.55 g Raji Hdz [facility] 03/14/2024 10:07:08 Social History None recorded. Functional Status None recorded. Mental Status None recorded. Family History Nothing Reported. Medical History Condition Response Allergies/Hayfever N Coronary Artery Disease N Anxiety/Depression N Emphysema N Thyroid Problems N COPD N Pacemaker N Anemia N Kidney/Bladder Problems N Vascular Disease N Heart Attack ([place]) N Gastrointestinal Disease Y Diabetes Y Autoimmune [...] SNOMED-CT Code Diagnosis ICD10 Code Diagnosis Note [id number] Sergio Hackett MD [place] [address] [place] [address] 12/20/2023 09:32:46 01/09/2024 12:19:40 Neck pain 62632118 M54.2 Diffuse id iopathic skeletal hyperostosis of cervicothoracic spine 6575962266 87110 M48.13 58-year-ol d male with cervical, thoracic [...] will follow-up afterwards . Ankylosis of spine 48329 007 M43.20 [id number] Alessandra Lopez CNP [place] [address] [place] [address] 03/14/2024 09:47:09 03/29/2024 07:42:04 Neck pain 06194722 M54.2 Diffuse id iopathic skeletal hyperostosis of cervicothoracic spine 2463900520 66734 M48.13 [id number] Alessandra Lopez CNP [place] [address] [place] [address] 03/29/2024 15:34:17 03/29/2024 16:06:58 Neck pain 91790489 M54.2 Diffuse id iopathic skeletal hyperostosis of cervicothoracic spine 9918493824 54352 M48.13 Health Concerns Section Related Observation LastModified by Organization Detai ls LastModified Time None Recorded Concern Status LastModified by Organization Details LastModified Time None Recorded Advance Directives Directive None Recorded Payers Insurance Date Sequence Insurance Name Policy Number Policy Ortiz Covered Member ID Ortiz Member ID Guarantor Name 05/26/2024 1 [facility] - DOS ON OR AFTER 2022 - ONE CARE (MEDICARE REPLACEMENT/ADV ANTAGE - HMO) Bobby Velasco [id number] Bobby Velasco 12/20/2023 1 MEDICARE B[place]: [employer] Bobyb Weems [id number] Bobby Velasco Notes Date Note Type Note [...] therapy in the past. Sergio Hackett MD [address] [place] [address], [place], [address], [facility] - [facility] [place] [facility] 12/20/2023 10:49:09 03/14/2024 text/html I am [...] relief FOLLOW UP: MRI review Speech recognition polisher and sander software was used to create portions of this document. An attempt at proofreading has been made to minimize errors. Please call for corrections. Alessandra Lopez, BIOMEDICAL ENGINEERING TECHNOLOGIST [address], [place], [address], [place] - [facility] 03/14/2024 16:53:17 03/29/2024 text/html telemed I am [...] discussed with the patient today.[facility]. [facility]. copy of referral mailed2. HLA negative, no ankylosing spondylitis3. continue physical therapy4. OTC NSAIDs and tylenol not helping much. I prescribed meloxicam. medication education provided. We also discussed muscle relaxers, but patient opted to hold off for now.5. recommend topicals for pain relief FOLLOW UP: prn Speech recognition polisher and sander software was used to create portions of this document. An attempt at proofreading has been made to minimize errors. Please call for corrections. time spent: > 20 minutes including independent review of MRI and telephone consultation Alessandra Lopez, BIOMEDICAL ENGINEERING TECHNOLOGIST [address] [facility] [address], [place], [address], [place] [facility] 03/31/2024 18:31:56
--- OUTSIDE RECORDS SUMMARY | 2025-03-04 11:14 | XMS_ITS | Clinical Summary ---
Author Organization [facility] Address [address] [place] [address] Phone Care Team Providers Care Crystal Syrup Maker Name Role Phone Ashley Frankel MD Primary Care Provider [phone] Allergies Active Allergy Reactions Criticality Noted Date Comments Clindamycin Anaphylaxis,Unknown High 03/29/2012 Doxycycline Diarrhea,Unknown Low 01/31/2023 Penicillins Anaphylaxis,Unknown High 04/06/2012 Other reaction(s): UNKNOWN REACTION-CHILDHOOD Medications No known medications Encounters Date Type Department Care Team Description 01/14/2025 9:00 AM EDT Consult Orthopedic Surgery [facility] [address] [facility] [address] [place] [address] Raheel Slater, PORTER Pain in toes of both feet (Primary Dx); Enlarged and hypertrophic nails; Arthritis of both feet; Lumbosacral radiculopathy from Last 3 Months Medical History Medical History Date Comments Hypertension Diabetes mellitus ([facility] V24, [facility] V28) Social History Tobacco Use Types Packs/Day [...] 58 10/12/2024 6:23 AM EST Temperature 36.9 C (98.4 F) 10/12/2024 6:23 AM EST Respiratory Rate 18 10/12/2024 6:23 AM EST [...] (HGBA1C) 02/11/2025 08/13/2024, 07/17/2024, 07/17/2024 Influenza Vaccine (#1) 2025 9, 05/18/2018, 05/31/2017, Additional history exists Depression Screening [...] mmol/L LAB CHEMISTRY METHOD 10/12/2024 12:38 AM [facility] Potassium 4.3 3.5 - 5.5 mmol/L LAB CHEMISTRY METHOD 10/12/2024 12:38 AM EST [facility] Chloride 107 96 - 110 mmol/L LAB CHEMISTRY METHOD 10/12/2024 12:38 AM [facility] CO2 30 21 - 32 mmol/L LAB CHEMISTRY METHOD 10/12/2024 12:38 AM [facility] Anion Gap 1(L) [...] [facility] Comment:Calculation based on the Chronic Kidney Disease Epidemiology Collaboration (CKD-EPI) equation refit without adjustment for race. BUN/Creatinine Ratio 13.0 LAB [...] MD LAB BLOOD ORDERABLES Final Result [facility] [address] [place] [address], from Last 3 Months or Most Recently Relevant to Health Maintenance Insurance [facility] MEDICARE Member Subscriber Plan / Payer (Ef fective 2023-Present) Name:BOBBY WAY Relation to Subscriber:Self Name:Bobby Way Payer ID:[id number] Group ID:[id number] Type:Not on file Address: [place] [address] [address] [address] Care Teams Crystal Syrup Maker Relationship Specialty Start Date End Date Shelby, MD Ashley [address] [place] [address] PCP - General Family Medicine 08/09/24
--- OUTSIDE RECORDS SUMMARY | 2025-03-04 11:14 | XMS_ITS | Encounter Summary ---
Author Organization [employer] Address [address] [facility] 7t [place] [address] Care Team Providers Care Hand Cell Tuber Name Role Phone Ashley Frankel MD Primary Care Provider [phone]- [phone] November Unavailable Kishore Dorsey MD Unavailable [phone] Raheel Gee Unavailable [phone] Riya Fulton Unavailable Sergio Hackett Unavailable Unavailable Dominga SilvaD Unavailable [phone] Raheel Slater Unavailable Reason for Visit * Reason Comments Med Refill Encounter Details Date Type Department Care Team (Late st Contact Info) Description 07/24/2023 Refill [facility] [address] [place], [place] [phone] [facility] [address] [place], [place] [phone] Prostatitis, acute Social History Tobacco Use Types [...] Care Team (Late st Contact Info) Description 03/07/2025 10:30 AM EDT Medication Management [facility] [address] [place] [address] Dominga Silva, PharmD [address] [place] [address] 03/31/2025 11:15 AM EDT Office Visit [facility] [address] [place] [address] Ashley Frankel MD [address] [place] [phone] documented as of this encounter Visit Diagnoses Diagnosis Prostatitis, acute Acute prostatitis documented in this encounter Care Teams Hand Cell Tuber Relationship Specialty Start Date End Date Ashley Frankel MD [address] [place] [address] PCP - General Family Medicine 08/28/18November [address] [place] [address] 3rd [place] [address] Gastroenterology 07/17/24 Kishore Dorsey MD [address] [place] [address] Urology 07/17/24 Raheel Gee [address] [place], [place] [address] Pulmonary Disease 07/17/24 Riya Fulton [address] 3rd [place] [address] Cardiology 07/17/24 Sergio Hackett 300 [facility] 2nd [place] [address] Orthopaedic Surgery 07/17/24 Dominga Silva PharmD [address] [place] [address] Pharmacist Internal Medicine 07/22/24 Raheel Slater [address] [address] Podiatry 01/22/25 [facility] 10/10/24 documented as of this encounter
== END 2025-03-04 11:08 | disposition home or self-care (01) ==
PROVIDERS: PCP Family Medicine; Visit Provider Urology
DX: N40.1 Benign prostatic hyperplasia with lower urinary tract symptoms (principal); N13.8 Other obstructive and reflux uropathy; R35.1 Nocturia; Z13.9 Encounter for screening, unspecified
CPT/HCPCS: 99214; G2211

== ENCOUNTER → 2025-03-04 10:22 | Outpatient (BNVA) | payer OTHER, SELFPAY | PROVIDERS: PCP Family Medicine; Visit Provider Urology | DX: N40.1 Benign prostatic hyperplasia with lower urinary tract symptoms (principal); N13.8 Other obstructive and reflux uropathy; N20.0 Calculus of kidney; N52.9 Male erectile dysfunction, unspecified; R35.1 Nocturia | CPT/HCPCS: 81003; 99212 ==

== ENCOUNTER 2025-03-31 11:35 | Outpatient (REF) | payer OTHER, SELFPAY ==
--- NOTE | ~2025-03-31 | XR_ITS ---
EXAMINATION: XR CERVICAL SPINE CLINICAL INFORMATION: DECREASED R.O.M. COMPARISON: CT on July 11, 2018 TECHNIQUE: AP, lateral, AP open-mouth odontoid, and swimmer's view cervical spine x-rays FINDINGS: There is thick osseous bridging and syndesmophyte formation extending from C2 to the lowest visible area, C7. There is ossification of the nuchal ligament dorsal to C4, C5, C6, and C7 spinous process. There is likely ossification of the disc between C2-3, C3-4, C4-5, and possibly C5-6 and C6-7. There is no prevertebral soft tissue edema. XR/XR cervical spine 3V IMPRESSION: Suspected ankylosing spondylitis with thick syndesmophyte across the visible portions of anterior cervical spine and probable intraosseous ossification involving most of the cervical disks. Electronically signed by: Gian Ovalle MD 03/31/2025 12:19 PM EDT
--- OUTSIDE RECORDS SUMMARY | 2025-03-31 12:24 | XMS_ITS | Clinical Summary ---
Author Organization 175 [facility] Address [address] [place] [address] Phone Care Team Providers Care Flame Annealing Machine Setter Name Role Phone Ashley Frankel MD Primary Care Provider [phone] Allergies Active Allergy Reactions Criticality Noted Date Comments Clindamycin Anaphylaxis,Unknown High 03/29/2012 Doxycycline Diarrhea,Unknown Low 01/31/2023 Penicillins Anaphylaxis,Unknown High 04/06/2012 Other reaction(s): UNKNOWN REACTION-CHILDHOOD Medications No known medications Encounters Date Type Department Care Team Description 01/14/2025 9:00 AM EDT Consult Orthopedic Surgery [facility] 250 175 [facility] [address] [place] [address] Raheel Slater, PORTER Pain in toes of both feet (Primary Dx); Enlarged and hypertrophic nails; Arthritis of both feet; Lumbosacral radiculopathy from Last 3 Months Medical History Medical History Date Comments Hypertension Diabetes mellitus ([facility] V24, [facility] V28) Social History Tobacco Use Types Packs/Day [...] Due Date Last Done Comments Diabetes: Annual Foot Exam 1974 Diabetes: Annual Retina Eye Exam 1974 Zoster Vaccines (1 of 2) 2014 Pneumococcal Vaccine: 50+ Years (2 of 2 - PCV) 05/14/2016 05/14/2015, 06/30/2006 COVID-19 Vaccine ( - season) 2024 Colorectal Cancer Screening: Colonoscopy 08/09/2024 Diabetes: Annual Urine Albumin-Creatinine Ratio (uACR) 08/09/2024 Medicare Annual Wellness Visit 08/09/2024 Social Influencers of Health Screening 08/09/2024 RSV Immunization Adult Patients (1 - Risk 60-74 years 1-dose series) 2024 Depression Screening 08/28/2024 Diabetes: Blood Sugar Control Test (HGBA1C) 02/11/2025 08/13/2024, 07/17/2024, 07/17/2024 Influenza Vaccine (#1) 2025 9, 05/18/2018, 05/31/2017, Additional history exists Diabetes: Annual GFR (Glomerular Filtration Rate) 12/28/2025 [...] LAB CHEMISTRY METHOD 10/12/2024 12:[address] [facility] Chloride 107 96 - 110 [...] MD LAB BLOOD ORDERABLES Final Result [facility] [address] [place] [address], from Last 3 Months or Most Recently Relevant to Health Maintenance Insurance [facility] MEDICARE Member Subscriber Plan / Payer (Ef fective 2023-Present) Name:BOBBY WAY Relation to Subscriber:Self Name:Bobby Way Payer ID:[id number] Group ID:[id number] Type:Not on file Address: [place] [address] [address] [phone] Care Teams Flame Annealing Machine Setter Relationship Specialty Start Date End Date Marlys, MD Ashley [address] [place] [address] PCP - General Family Medicine 08/09/24
--- OUTSIDE RECORDS SUMMARY | 2025-03-31 12:24 | XMS_ITS | Encounter Summary ---
Author Organization [employer] Address [address] [facility] 7t [place] [address] Care Team Providers Care Pottery Decorator Name Role Phone Ashley Frankel MD Primary Care Provider [phone] November Unavailable Kishore Dorsey MD Unavailable Raheel Gee Unavailable [phone] Riya Fulton Unavailable Sergio Hackett Unavailable Unavailable Dominga SilvaD Unavailable Raheel Slater Unavailable Reason for Visit * Reason Comments Med Refill Encounter Details Date Type Department Care Team (Late st Contact Info) Description 07/24/2023 Refill [facility] 230 [place], [place] [phone] [facility] 230 [place], [place] [phone] Prostatitis, acute Social History Tobacco Use Types [...] Care Team (Late st Contact Info) Description 04/14/2025 2:00 PM EDT Medication Management [facility] 230 [place] [address] Dominga Silva, PharmD [address] [place] [address] documented as of this encounter Visit Diagnoses Diagnosis Prostatitis, acute Acute prostatitis documented in this encounter Care Teams Pottery Decorator Relationship Specialty Start Date End Date Ashley Frankel MD [address] [place] [address] PCP - General Family Medicine 08/28/18November [address] 3rd [place] [address] Gastroenterology 07/17/24 Kishore Dorsey MD [address] [place] [address] Urology 07/17/24 Raheel Gee 5 [place], [place] [address] Pulmonary Disease 07/17/24 Riya Fulton [address] 3rd [place] [address] Cardiology 07/17/24 Sergio Hackett [address] [place] [address] Orthopaedic Surgery 07/17/24 Dominga Silva PharmD [address] [place] [address] Pharmacist Internal Medicine 07/22/24 Raheel Slater [address] [address] Podiatry 01/22/25 [facility] 10/10/24 documented as of this encounter
[2025-03-31 13:22] LABS: MANUAL DIFF FLAG NO
[2025-03-31 13:43] LABS: Hematocrit 40.2 % (42.0-52.0); Hemoglobin 13.4 g/dl (14.0-18.0); Imm Gran Abs Auto 0.01 X10*3/uL (0.00-0.03); Imm Gran Pct Auto 0.2 % (0.0-0.4); Lymphocytes Absolute Auto 1.2 X10*3/uL (1.2-4.9); Mean Corpuscular HGB Conc 33.3 g/dl (31.0-36.0); Mean Corpuscular Hemoglobin 30.4 pg (27.0-33.0); Mean Corpuscular Volume 91.2 fL (80.0-98.0); NRBC Abs Auto 0.000 X10*3/uL (0.0-0.012); NRBC Pct Auto 0.0 /100WBC (0.0-0.2); Platelet Count 252 X10*3/uL (160-400); Red Blood Count 4.41 X10*6/uL (4.60-5.80); White Blood Count 4.0 X10*3/uL (4.8-10.8)
== END 2025-03-31 11:36 | disposition home or self-care (01) ==
LOC: HO.HHCL 11:35
PROVIDERS: PCP Family Medicine; Visit Provider Family Medicine
DX: M48.10 Ankylosing hyperostosis [Forestier], site unspecified (principal); R29.898 Other symptoms and signs involving the musculoskeletal system; I10 Essential (primary) hypertension
CPT/HCPCS: 36415; 72040; 85025

== ENCOUNTER → 2025-03-31 11:51 | Outpatient (BNV) | payer OTHER, SELFPAY | PROVIDERS: PCP Family Medicine; Visit Provider Radiology Diagnostic Radiology | DX: R29.898 Other symptoms and signs involving the musculoskeletal system (principal) | CPT/HCPCS: 72040 ==

== ENCOUNTER 2025-04-04 16:17 | Outpatient (AMB) | payer OTHER, SELFPAY ==
--- NOTE | 2025-04-04 16:18 | A.OFFVIS_ITS ---
Vital Signs 04/04/25 16:30 Height 5 ft 7 in Weight 166 lb 10.711 oz BMI 26.1 BP 131/64 Blood Pressure Location Rt brachial Position Sitting Pulse 80 Intake Visit Reasons: CIC Intake Note: CC: Patient c/o abdominal pain and constipation. [employer] Consultant Required: No Accompanied by: Self / Same As Patient Allergies amoxicillin (AMOXICILLIN) Allergy (Severe, Verified 04/04/25 16:32) ANAPHYLAXIS Penicillins Allergy (Severe, Verified 04/04/25 16:32) UNKNOWN REACTION-CHILDHOOD doxycycline (From VIBRAMYCIN) Adverse Reaction (Mild, Verified 04/04/25 16:32) DIARRHEA Clindamycin HCl Allergy (Severe, Uncoded 02/15/25 22:14) Anaphylaxis HPI HPI CIC: Details: Assessment & Plan (1) Constipation: Code(s): K59.00 - Constipation, unspecified Category: Medical (2) GERD (gastroesophageal reflux disease): Code(s): K21.9 - Gastro-esophageal reflux disease without esophagitis Category: Medical Plan He has been very constipated recently he tells me that he tried taking 2 senna a night but distant seem to do anything for him. Says he is now fails senna and Colace along with fiber, MiraLax we will progress the bisacodyl and titrate to affect her side effect. He continues on famotidine as needed for GERD. Return office visit 4 weeks. Medications: New bisacodyl (Dulcolax (bisacodyl)) 10 mg (2 x 5 mg) PO BEDTIME 30 days 60 tabs 6RF K59.00 - Constipation, unspecified Refilled famotidine 40 mg PO DAILY PRN 90 tabs 4RF for heartburn Discontinued sennosides (senna) Discontinued Reason: Doctor's Order 17.2 mg (2 x 8.6 mg) PO BEDTIME PRN 60 caps 6RF constipation K59.00 - Constipation, unspecified TODAY'S VISIT He had no success moving his bowels with bisacodyl. Because of this and because he has now failed MiraLax, Colace, fiber, senna, lactulose, and now Dulcolax we will move him on to Linzess. We will start 145 micro g and titrate to affect her side effect. He is a diabetic and although he is diet controlled I wonder if he may have an element of gastroparesis. I say this because he frequently has some bloating and reports early satiety. I will order a gastric emptying study and consider if a trial of Reglan would be appropriate in the future depending on his response to Linzess. Return office visit in 2 weeks [facility] Medical History (Updated 04/04/25 @ 16:57 by CAIN Neville) Renal calculus, right Constipation Opacity of lung on imaging study Pre-op examination GERD (gastroesophageal reflux disease) Orchialgia Weak urinary stream Asthma Nasal polyps Diabetes HTN (hypertension) Pulmonary nodules Surgical History History of esophagogastroduodenoscopy (EGD) Hx of colonoscopy H/O wrist surgery Family History Father Diabetes Hypertension Mother Hypertension Hyperlipidemia Brother Hypertension Family/Other Kidney stones Prostate cancer Bladder cancer Renal cancer Social History Household Members: None Housing: Apartment Alcohol intake: former Patient Tobacco Use Status: Former Tobacco user Tobacco use type: Cigarette Years Smoked: 30 years service: No Review of Systems Const Denies fatigue, Denies fever(s), Denies night sweats, Denies poor appetite and Denies weight loss ENT Reports Normal hearing present, Denies dental pain, Denies dysphagia, Denies hearing loss, Denies mouth pain, Denies odynophagia, Denies throat swelling, Denies tongue swelling and Reports other (Dentition adequate) Card Reports no additional complaints Resp Reports no additional complaints GI Details: Denies abdominal pain, Denies melena, Reports bloating, Denies hematochezia, Reports constipation, Denies GI cramping, Denies dysphagia, Denies excessive flatus, Reports early satiety, Denies heartburn, Denies diarrhea, Denies nausea, Denies odynophagia, Denies vomiting and Denies hematemesis Skin/Breast Denies pruritus, Denies lesions, Denies rash and Denies jaundice Neuro Reports Normal hearing present and Denies Abnormal speech present Endo Denies fatigue Aller/Immun Denies throat swelling and Denies tongue swelling Physical Exam Vital Signs: BMI result Body Mass Index 26.1 Const General: cooperative, no acute distress, well developed and well groomed Nutritional Appearance: average body habitus and well nourished Orientation/consciousness: oriented to person, oriented to place and oriented to time Limitations: No language barrier HEENT Head: Yes normocephalic and Yes atraumatic Eyes General: appearance normal, both eyes and all related structures Pupils: Equal, round and reactive pupils present Neck Neck: Yes normal visual inspection and Yes no lymphadenopathy Thyroid: Thyroid normal Resp Effort & Inspection: normal respiratory effort and able to speak in complete sentences Auscultation: clear to auscultation bilaterally Cardio Rate: regular rate Rhythm: regular rhythm Heart sounds: Normal, physiologic split S2 sound present Peripheral pulses: radial pulses present and posterior tibial pulses present GI Inspection: No distended and No Abdominal panniculus present Palpation (GI): Soft to palpation, nontender, no guarding, not rigid and No hepatosplenomegaly present Percussion: Yes normal to percussion Auscultation: normal bowel sounds Rectal Exam - Male: Yes deferred Skin General skin exam: no rashes or lesions noted, turgor normal, skin not dry, no jaundice, No spider nevi and no striae Rashes: no rashes Nails: normal Neuro General: oriented to person, oriented to place and oriented to time Cranial nerves: Yes Equal, round and reactive pupils present and Yes Normal hearing present Speech: No Abnormal speech present Extrem General: Yes normal to inspection, No clubbing, No cyanosis and No edema Psych Appearance: grossly normal and well kempt Mental Status: mental status grossly normal Speech and movement: Normal speech and movement present Affect: normal affect Attitude: cooperative Thought process: Normal thought process present and not confabulating Thought content: Normal thought content present Insight: Limited insight present (Psych) Judgement: Limited judgement present (Psych) Assessment & Plan Assessment & Plan (1) GERD (gastroesophageal reflux disease): Code(s): K21.9 - Gastro-esophageal reflux disease without esophagitis Category: Medical (2) Constipation: Code(s): K59.00 - Constipation, unspecified Category: Medical (3) Chronic idiopathic constipation: Code(s): K59.04 - Chronic idiopathic constipation Category: Medical Plan He had no success moving his bowels with bisacodyl. Because of this and because he has now failed MiraLax, Colace, fiber, senna, lactulose, and now Dulcolax we will move him on to Linzess. We will start 145 micro g and titrate to affect her side effect. He is a diabetic and although he is diet controlled I wonder if he may have an element of gastroparesis. I say this because he frequently has some bloating and reports early satiety. I will order a gastric emptying study and consider if a trial of Reglan would be appropriate in the future depending on his response to Linzess. Return office visit in 2 weeks Orders: Orders NM gastric emptying study Today R68.81 - Early satiety Medications: New linaclotide (Linzess) Take first thing in the morning with a full glass of water. 145 mcg PO QAM 30 caps 6RF K59.04 - Chronic idiopathic constipation Discontinued bisacodyl (Dulcolax (bisacodyl)) Discontinued Reason: Doctor's Order 10 mg (2 x 5 mg) PO BEDTIME 30 days 60 tabs 6RF K59.00 - Constipation, unspecified Coding Level of Care Code Est Pt Level 3 (92215) Diagnoses GERD (gastroesophageal reflux disease) K21.9 Constipation K59.00 Chronic idiopathic constipation K59.04
--- OUTSIDE RECORDS SUMMARY | 2025-04-04 16:19 | XMS_ITS | Clinical Summary ---
Author Organization [address] [facility] Address [address] [place] [address] Phone Care Team Providers Care Program Manager Rn Name Role Phone Ashley Frankel MD Primary Care Provider [phone] Allergies Active Allergy Reactions Criticality Noted Date Comments Clindamycin Anaphylaxis,Unknown High 03/29/2012 Doxycycline Diarrhea,Unknown Low 01/31/2023 Penicillins Anaphylaxis,Unknown High 04/06/2012 Other reaction(s): UNKNOWN REACTION-CHILDHOOD Medications No known medications Encounters Date Type Department Care Team Description 01/14/2025 9:00 AM EDT Consult Orthopedic Surgery [facility] [address] [facility] [address] [place] [id number] Raheel Slater, PROTER Pain in toes of both feet (Primary Dx); Enlarged and hypertrophic nails; Arthritis of both feet; Lumbosacral radiculopathy from Last 3 Months Medical History Medical History Date Comments Hypertension Diabetes mellitus ([facility] V24, [facility] V28) Social History Tobacco Use Types [...] LAB CHEMISTRY METHOD 10/12/2024 12:38 AM EST [facility] Chloride 107 [...] [facility] Comment:Calculation based on the Chronic Kidney [...] MD LAB BLOOD ORDERABLES Final Result [facility] [address] [place] [address], from Last 3 Months or Most Recently Relevant to Health Maintenance Insurance [facility] MEDIC[facility] Member Subscriber Plan / Payer (Ef fective 2023-Present) Name:BOBBY WAY Relation to Subscriber:Self Name:Bobby Way Payer ID:[id number] Group ID:[id number] Type:Not on file Address: [place] [address] [address] [address] Care Teams Program Manager Rn Relationship Specialty Start Date End Date Marlys, MD Ashley [address] [place] [id number] PCP - General Family Medicine 08/09/24
--- OUTSIDE RECORDS SUMMARY | 2025-04-04 16:19 | XMS_ITS | Encounter Summary ---
Author Organization [employer] Address [address] [facility] [address] [place] [address] Care Team Providers Care Senior Loan Officer Name Role Phone Ashley Frankel MD Primary Care Provider [phone] November Unavailable Kishore Dorsey MD Unavailable Raheel Gee Unavailable [phone] Riya Fulton Unavailable Sergio Hackett Unavailable Unavailable Dominga SilvaD Unavailable Raheel Slater Unavailable Reason for Visit * Reason Comments Med Refill Encounter Details Date Type Department Care Team (Late st Contact Info) Description 07/24/2023 Refill [facility] [address] [place], [place] [id number] [facility] [address] [place], [place] [id number] Prostatitis, acute Social History Tobacco Use Types [...] Description 04/14/2025 2:00 PM EDT Medication Management [facility] [address] [place] [address] Dominga Silva, PharmD [address] [place] [address] documented as of this encounter Visit Diagnoses Diagnosis Prostatitis, acute Acute prostatitis documented in this encounter Care Teams Senior Loan Officer Relationship Specialty Start Date End Date Ashley Frankel MD [address] [place] [address] PCP - General Family Medicine 08/28/18November [address] [place] [address] Gastroenterology 07/17/24 Kishoer Dorsey MD [address] [place] [address] Urology 07/17/24 Raheel Gee [address] [place], [place] [address] Pulmonary Disease 07/17/24 Riya Fulton [address] [place] [address] Cardiology 07/17/24 Sergio Hackett [address] [place] [address] Orthopaedic Surgery 07/17/24 Dominga Silva PharmD [address] [place] [address] Pharmacist Internal Medicine 07/22/24 Raheel Slater [address] [address] Podiatry 01/22/25 [facility] [place] Psychiatry 10/10/24 documented as of this encounter
[2025-04-04 16:30] VITALS: BP 131/64; PULSE 80; BMI 26.1
== END 2025-04-04 17:09 | disposition home or self-care (01) ==
PROVIDERS: PCP Family Medicine; Visit Provider Nurse Practitioner
DX: K21.9 Gastro-esophageal reflux disease without esophagitis (principal); K59.00 Constipation, unspecified; K59.04 Chronic idiopathic constipation
CPT/HCPCS: 99213

== ENCOUNTER → 2025-04-04 16:17 | Outpatient (BNVA) | payer OTHER, SELFPAY | PROVIDERS: PCP Family Medicine; Visit Provider Nurse Practitioner | DX: K21.9 Gastro-esophageal reflux disease without esophagitis (principal); K59.04 Chronic idiopathic constipation | CPT/HCPCS: 99212 ==

== ENCOUNTER 2025-05-13 15:17 | Outpatient (AMB) | payer OTHER, SELFPAY ==
[2025-05-13 15:24] VITALS: BP 150/66; PULSE 78; O2SAT 97; BMI 26.2
--- NOTE | 2025-05-13 15:24 | MHC.OFFVIS ---
Vital Signs 05/13/25 15:24 Height 5 ft 7 in Weight 167 lb 8.821 oz BMI 26.2 BP 150/66 H Blood Pressure Location Lt brachial Position Sitting Pulse 78 Pulse Source Pulse Oximeter Pulse Oximetry (%) 97 Oxygen Delivery Method Room Air Intake Visit Reasons: Asthma Rn Emergency Required: No Accompanied by: Self / Same As Patient Allergies amoxicillin (AMOXICILLIN) Allergy (Severe, Verified 05/13/25 15:27) ANAPHYLAXIS Penicillins Allergy (Severe, Verified 05/13/25 15:27) UNKNOWN REACTION-CHILDHOOD doxycycline (From VIBRAMYCIN) Adverse Reaction (Mild, Verified 05/13/25 15:27) DIARRHEA Clindamycin HCl Allergy (Severe, Uncoded 02/15/25 22:14) Anaphylaxis HPI Comments Details: Pleasant 59-year-old gentleman who is here for follow-up. He has background history of atypical chest pain for which he underwent stress testing in the past with was normal. He also had echocardiography which did not show any significant pathology. He is presenting now for follow-up because he has been experiencing palpitations. These happen almost every night. When he is lying on his side he feels his heart is racing and he can feel the heartbeat in his ear. Sometimes it is fast. He is worried about AFib. He has no significant chest pains at this point. He did not take his blood pressure medications today. His blood pressure is elevated today. 09/25/2020 the patient has a telephone visit. He has been complaining of further nasal congestion and sinus tenderness. Moderate severity. Significant cough postnasal drip related. Has a hard time sleeping at nighttime because the discomfort. He did undergo a CT scan of the chest that was personally by me. Appears to have stable pulmonary nodules. Will continue monitoring the nodules on a yearly basis for couple years to ensure stability. Patient also needs to be followed up by ENT due to the fact that he has nasal polyposis and his nasal issue will continue to be recurrent and progressive. 08/02/2021 the patient is here for a pulmonary sick visit. Apparently he was evaluated about a week ago with nasal congestion and sinus discomfort. He was placed on azithromycin. he did have partial improvement of the symptoms. But still having sinus discomfort and fullness and discomfort. The drainage has decreased in amount. Patient does have significant swelling of the nasal passages. In the meantime he also underwent a CT scan of the chest around the same time because of the pulmonary nodules. At least I could review the images with him and reassured him that he does not have any active lower respiratory infection. His pulmonary nodules are indeed stable which is reassuring. He will require CT scan in a year's time. We will treat him again for this subacute sinusitis with the hope of improving his symptoms. 08/15/2022 the patient is here for a pulmonary follow-up visit. The patient is doing well from a respiratory status. He does have a cough intermittently. Usually associated with a postnasal drip. Moderate severity. He does have allergy medicines and also nasal sprays but he has not been using it. His major issue is the neck pain and now shoulder discomfort. He does have significant osteoarthritis of the left shoulder. Has a hard time turning his neck. From a respiratory standpoint he does have a rescue inhaler but he does not use it. Typically his asthma is exacerbated by a he respiratory illness. Denies any significant allergies. He does have underlying pulmonary nodules. The patient did have a repeat CAT scan about a week ago which we personally reviewed in the office. The patient does have stable pulmonary nodules at this time. There subcentimeter in size and do not appear concerning. Therefore, since the pulmonary nodules have been stable now for 2 years no further imaging studies warranted. Will reassess in a year to see additional studies have required if he is having any ongoing symptoms. 06/09/2023 the patient is here for a pulmonary follow-up visit. He is complaining about worsening nasal congestion. Moderate severity. Has a hard time breathing through his nose and has a postnasal drip. He attributes this to his rugs in the apartment. Feels like they are causing him to have significant worsening sinusitis and rhinitis in addition to his asthma. He is asking for the rugs to be removed. At this point we can just request allergy testing and see if he is allergic to any dust mites or any mold that could be in better in the rugs. If he does have underlying allergies then be reasonable to request replaced on the rugs otherwise patient could just use the HEPA filter vacuum. The patient is doing well from the asthma standpoint. He has not had to use his rescue inhaler. Although does have significant sinusitis at this time so therefore will treat him for the sinusitis at this time. 09/15/2023 the patient is here for a pulmonary follow-up visit. The patient has been having good and bad days. Complains of significant nasal congestion. He does have the history of nasal polyps. He feels like being his apartment with the rugs make his breathing much worse. He has a studio apartment. We did do the allergy testing although no significant allergies were noted. Still he is still very uncomfortable and complaining that the rugs are bothering him. I did provide him with a letter if they can be removed safely then that would be a good option. He will have to work with his landlord for that. In the meantime the patient continues with current respiratory therapy. His breathing has been stable. He is still dealing with significant neck discomfort. The patient also had a CT scan last done back in July 2022 demonstrating an 8 mm pulmonary nodule. Based on the size which go ahead and repeat a CT scan before the next visit. 02/09/2024 the patient is here for a pulmonary follow-up visit. He is complaining significant sinus congestion and pressure. His ears are plugged as well. He has a hard time with the nasal obstruction. His respiratory and nasal therapy has not been helpful. The patient having significant issues with allergies as well. Although, we have done allergy testing in the past and was really on inconclusive. He did have a CT scan of the chest which we personally reviewed demonstrating no significant change in the 8 mm pulmonary nodule she is reassuring. Although the CT scan has not been officially read yet. If the CT scans any different outlet no otherwise follow-up with a repeat CT scan in a year's time. 08/16/2024 the patient is here for a pulmonary follow-up visit. Started developing right-sided pleuritic discomfort. Moderate severity. He became very concerned and went to the ER. There he had a chest x-ray. Apparently he was told that everything is okay. Although seems to have a slight peripheral opacity in the right lung. The patient also has known pulmonary nodules. Will go ahead and treat him for community-acquired pneumonia or walking pneumonia. Also given some methylprednisolone to help him with pleurisy. Seems like his pain is better this time but still he still had some discomfort that he feels specially when he takes a deep breath in. After he completes the therapy the patient will have a repeat chest x-ray sometime in August to make sure that everything is clearing up. If he does develop worsening symptoms he is to call or go to the ER. Will follow-up in the next few months. If the patient has any worsening issues she will call for an earlier assessment. In the meantime he is going to continue with current respiratory therapy. And also he should have a CT scan sometime in December anyways the follow-up with his pulmonary nodule. 11/19/2024 the patient is here for pulmonary follow-up visit. Overall the patient has been doing well although he is having increased allergy symptoms. Does have postnasal drip and nasal congestion. Moderate severity. Breathing is okay. The patient does have a rescue inhaler that he uses as needed. Now coming to the springtime he does have a hard time with his allergy symptoms though. The patient did have a CT scan back in January 2024 and does have small pulmonary nodules. He is scheduled to have a repeat CAT scan January 2025. In addition to that will go ahead and treat him for his allergies and his nasal congestion. If he has any difficulties will call for an earlier assessment. 05/13/2025 the patient is here for pulmonary follow-up visit. Overall the patient has been doing well. He does have significant neck pain and stiffness. He is going to get physical therapy soon. 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 I noticed that his HLA B27 was negative when it was tested before. Although this is a concerning diagnosis specially if this is something progressive. He will talk to his primary care doctor further about this. In the meantime from a breathing standpoint the patient is doing well although he is having significant sinus congestion and nasal obstruction. I will provide him with multiple nasal sprays to see if we can provide some relief. He did undergo a CT scan of the chest which we personally reviewed in January 2025 demonstrating what appeared to be a 9-10 mm pulmonary nodule in the left lower lobe along with other pulmonary nodules. It was recommended he get a CAT scan in 3 months. I did look back and he has had multiple these nodules so we are going to do a repeat CAT scan but will wait to the spring. Helps any worsening symptoms we can call and reassess that. But otherwise she will continue with his current respiratory therapy will treat his sinus issues and he is going to focus on cervical spine issues. [facility] Medical History (Updated 04/04/25 @ 16:57 by CAIN Neville) Renal calculus, right Constipation Opacity of lung on imaging study Pre-op examination GERD (gastroesophageal reflux disease) Orchialgia Weak urinary stream Asthma Nasal polyps Diabetes HTN (hypertension) Pulmonary nodules Surgical History History of esophagogastroduodenoscopy (EGD) Hx of colonoscopy H/O wrist surgery Family History Father Diabetes Hypertension Mother Hypertension Hyperlipidemia Brother Hypertension Family/Other Kidney stones Prostate cancer Bladder cancer Renal cancer Social History Household Members: None Housing: Apartment Alcohol intake: former Patient Tobacco Use Status: Former Tobacco user Tobacco use type: Cigarette Years Smoked: 30 years service: No Review of Systems Const Denies fatigue, Denies fever(s), Denies night sweats, Denies poor appetite and Denies weight loss ENT Reports Normal hearing present, Denies dental pain, Denies dysphagia, Denies hearing loss, Denies mouth pain, Reports nasal congestion, Reports nasal discharge, Reports nasal obstruction, Reports neck pain, Denies odynophagia, Reports sinus pain and Reports sinus pressure Card Reports no additional complaints, Denies dyspnea and Denies dyspnea on exertion Resp Denies chest congestion, Reports cough, Denies dyspnea, Denies dyspnea on exertion and Denies wheezing GI Denies abdominal pain, Denies melena, Denies bloating, Reports hematochezia, Denies constipation, Denies GI cramping, Denies dysphagia, Denies excessive flatus, Denies early satiety, Reports heartburn, Denies diarrhea, Denies nausea, Denies odynophagia, Denies vomiting and Denies hematemesis Musc Reports myalgias, Reports limited range of motion, Reports neck pain and Reports stiffness Skin/Breast Denies pruritus, Denies lesions, Denies rash and Denies jaundice Neuro Reports Normal hearing present and Denies Abnormal speech present Endo Denies fatigue Aller/Immun Denies wheezing Physical Exam Vital Signs: Last Vital Signs Pulse 78 05/13/25 15:24 BP 150/66 H 05/13/25 15:24 Pulse Ox 97 05/13/25 15:24 Oxygen Delivery Method Room Air 05/13/25 15:24 BMI result Body Mass Index 26.2 Const General: no acute distress and well developed HEENT Head: Yes normocephalic and Yes atraumatic General nose exam: Abnormal mucous membranes and turbinates present erythematous Eyes Pupils: Equal, round and reactive pupils present Neck Neck: Yes normal visual inspection and Yes no lymphadenopathy Chest Chest palpation & inspection: normal inspection of the chest Resp Effort & Inspection: normal respiratory effort and able to speak in complete sentences Auscultation: clear to auscultation bilaterally Cardio Rate: regular rate Rhythm: regular rhythm GI Palpation (GI): Soft to palpation Skin General skin exam: no rashes or lesions noted Neuro Cranial nerves: Yes Equal, round and reactive pupils present and Yes Normal hearing present Speech: No Abnormal speech present Extrem General: No clubbing, No cyanosis and No edema Psych Appearance: well kempt Attitude: cooperative Assessment & Plan Assessment & Plan (1) Nasal polyps: Code(s): J33.9 - Nasal polyp, unspecified Category: Medical (2) Pulmonary nodules: Code(s): R91.8 - Other nonspecific abnormal finding of lung field Category: Medical (3) Asthma: Code(s): J45.909 - Unspecified asthma, uncomplicated Category: Medical Qualifiers: Asthma complication type: uncomplicated Asthma persistence: persistent Asthma severity: moderate Qualified Code(s): J45.40 - Moderate persistent asthma, uncomplicated Plan WAI as needed Continue nasal therapy wtih flonase and nasal rinsing continue zyrtec continue singulair Continue WAI as needed CT chest to assess 9mm, F/U CT chest 11/2025 F/U in 6-8 months Orders: Orders CT chest wo IV con 12/01/25 R91.8 - Other nonspecific abnormal finding of lung field Medications: New oxymetazoline 0.05% (Afrin (oxymetazoline)) 2 sprays intranasal Q12H PRN 22 mL 0RF nasal congestion 5 days azelastine administer into each nostril 2 sprays intranasal BID 30 mL 11RF 30 days J45.909 - Unspecified asthma, uncomplicated, R91.8 - Other nonspecific abnormal finding of lung field fluticasone propionate 50 mcg/actuation (Flonase Allergy Relief) administer into each nostril 2 sprays intranasal DAILY 15.8 mL 12RF 30 days Coding Level of Care Code Est Pt Level 4 (18768) Complex EM visit Add On G2211 Diagnoses Nasal polyps J33.9 Pulmonary nodules R91.8 Moderate persistent asthma without complication J45.40 Asthma complication type: uncomplicated Asthma persistence: persistent Asthma severity: moderate Time Spent (min) 17
--- OUTSIDE RECORDS SUMMARY | 2025-05-13 18:46 | XMS_ITS | Encounter Summary ---
Author Organization [employer] Address [address] [facility] 7t [place] [address] Care Team Providers Care Travel Information Center Supervisor Name Role Phone Ashley Frankel MD Primary Care Provider [phone] Viktor November Unavailable Kishore Dorsey MD Unavailable [phone] Raheel Gee Unavailable [phone] Riya Fulton Unavailable Sergio Hackett Unavailable Unavailable Dominga Silva PharmD Unavailable Raheel Slater Unavailable Reason for Visit * Reason Comments Med Change Request Encounter Details Date Type Department Care Team ([facility] st Contact Info) Description 07/12/2023 Refill [facility] MEDICINE [address] [place], [place] [phone] Ashley Frankel MD [address] [place], [place] [phone] Social History Tobacco Use Types Packs/Day Years [...] Care Team (Late st Contact Info) Description 09/08/2025 10:30 AM EST Office Visit [facility] OPTOMETRY [address] [place] [address] Tania Cordon, OD 230 [place] [address] documented as of this encounter Visit Diagnoses Not on filedocumented in this encounter Care Teams Travel Information Center Supervisor Relationship Specialty Start Date End Date Ashley Frankel MD [address] [place] [address] PCP - General Family Medicine 08/28/18November [address] 3rd [place] [address] Gastroenterology 07/17/24 Kishore Dorsey MD [address] [place] [address] Urology 07/17/24 Raheel Gee 5 [place], [place] [address] Pulmonary Disease 07/17/24 Riya Fulton 11 [facility] 3rd [place] [address] Cardiology 07/17/24 Sergio Hackett [address] [place] [address] Orthopaedic Surgery 07/17/24 Dominga Silva PharmD [address] [place] [address] Pharmacist Internal Medicine 07/22/24 05/07/25 Raheel Slater [address] [address] Podiatry 01/22/25 [facility] 10/10/24 documented as of this encounter
--- OUTSIDE RECORDS SUMMARY | 2025-05-13 18:46 | XMS_ITS | Encounter Summary ---
Author Organization [employer] Address [address] [facility] 7t [place] [address] Care Team Providers Care Landscape Specialist Name Role Phone Ashley Frankel MD Primary Care Provider [phone] November Unavailable Kishore Dorsey MD Unavailable Raheel Gee Unavailable [phone] Riya Fulton Unavailable Sergio Hackett Unavailable Unavailable Dominga Silva PharmD Unavailable Raheel Slater Unavailable Encounter Details Date Type Department Care Team (Latest Contact Info) Description 07/04/2019 Abstract [facility] Dental, Provider, DDS Social History Tobacco [...] Description 09/08/2025 10:30 AM EST Office Visit [facility] OPTOMETRY [address] [place], [place] [phone] Tania Cordon, OD [address] [place], [place] [phone] documented as of this encounter Visit Diagnoses Not on filedocumented in this encounter Care Teams Landscape Specialist Relationship Specialty Start Date End Date Ashley Frankel MD [address] [place] [address] PCP - General Family Medicine 08/28/18November [address] [address] Gastroenterology 07/17/24 Kishore Dorsey MD [address] [place] [address] Urology 07/17/24 Raheel Gee 5 [place], [place] [address] Pulmonary Disease 07/17/24 Riya Fulton [address] [address] Cardiology 07/17/24 Sergio Hackett [facility] [address] Orthopaedic Surgery 07/17/24 Dominga Silva, AnanthD 230 [place] [address] Pharmacist Internal Medicine 07/22/24 05/07/25 Raheel Slater [address] [address] Podiatry 01/22/25 [facility] [place] 10/10/24 documented as of this encounter
--- OUTSIDE RECORDS SUMMARY | 2025-05-13 18:46 | XMS_ITS | Encounter Summary ---
Author Organization [employer] Address [address] [facility] 7t [place] [address] Care Team Providers Care Dulite Machine Bluer Name Role Phone Ashley Frankel MD Primary Care Provider [phone] Viktor November Unavailable Kishore Dorsey MD Unavailable Raheel Gee Unavailable [phone] Riya Fulton Unavailable Sergio Hackett Unavailable Unavailable Dominga Silva PharmD Unavailable Raheel Slater Unavailable Encounter Details Date Type Department Care Team (Late st Contact Info) Description 07/25/2022 Abstract [facility] ADULT DENTAL [address] [place] [address] Dental, Provider, DDS Social History Tobacco Use [...] Description 09/08/2025 10:30 AM EST Office Visit [facility] OPTOMETRY [address] [place] [address] Tania Cordon, OD [address] [place] [address] documented as of this encounter Procedures Procedure [...] on filedocumented in this encounter Care Teams Dulite Machine Bluer Relationship Specialty Start Date End Date Ashley Frankel MD [address] [place] [address] PCP - General Family Medicine 08/28/18November [address]rd [place] [address] Gastroenterology 07/17/24 Kishore Dorsey MD [address] [place] [address] Urology 07/17/24 Raheel Gee 5 [place], [place] [address] Pulmonary Disease 07/17/24 Riya Fulton 11 [facility] 3rd [place] [address] Cardiology 07/17/24 Sergio Hackett [address] [place] [address] Orthopaedic Surgery 07/17/24 Dominga Silva PharmD 230 [place] [address] Pharmacist Internal Medicine 07/22/24 05/07/25 Raheel Slater [address] [address] Podiatry 01/22/25 [facility] 10/10/24 documented as of this encounter
--- OUTSIDE RECORDS SUMMARY | 2025-05-13 18:46 | XMS_ITS | Encounter Summary ---
Author Organization [employer] Address [address] [facility] 7t [place] [address] Care Team Providers Care Supervisor Scenic Arts Name Role Phone Ashley Frankel MD Primary Care Provider [phone]- [phone] Hoang, November Unavailable Kishore Dorsey MD Unavailable [phone] Raheel Gee Unavailable [phone] Riya Fulton Unavailable Sergio Hackett Unavailable Unavailable Dominga SilvaD Unavailable Raheel Slater Unavailable Encounter Details Date Type Department Care Team (Late st Contact Info) Description 07/18/2023 Telephone [facility] MEDICINE [address] [place] [address] Ashley Frankel MD 230 [place], [place] [phone] Social History Tobacco Use Types Packs/Day Years [...] Bia Rose - 08/10/2023 1:42 PM EST Data Processing Clerk called pt to request verification of insurance/Medicare [...] Description 09/08/2025 10:30 AM EST Office Visit [facility] OPTOMETRY [address] [place] [address] Bravo, Tania, OD [address] [place] [address] documented as of this encounter Visit Diagnoses Not on filedocumented in this encounter Care Teams Supervisor Scenic Arts Relationship Specialty Start Date End Date Ashley Frankel MD 230 [place] [address] PCP - General Family Medicine 1/1/19 Sonya Hoang [address] [place] [address] Gastroenterology 07/17/24 Kishore Dorsey MD [address] [place] [address] Urology 07/17/24 Raheel Gee 5 [place], [place] [address] Pulmonary Disease 07/17/24 Riya Fulton 11 [facility] 3rd [place] [address] Cardiology 07/17/24 Sergio Hackett 300 [facility] [address]nd [place] [address] Orthopaedic Surgery 07/17/24 Dominga Silva PharmD 230 [place] [address] Pharmacist Internal Medicine 07/22/24 05/07/25 Raheel Slater [address] [address] Podiatry 01/22/25 [facility] 10/10/24 documented as of this encounter
--- OUTSIDE RECORDS SUMMARY | 2025-05-13 18:46 | XMS_ITS | Encounter Summary ---
Author Organization [email or web address] Address [address] [facility] 7t [place] [address] Care Team Providers Care Procurement Consultant Name Role Phone Ashley Frankel MD Primary Care Provider [phone] Viktor November Unavailable Kishore Dorsey MD Unavailable [phone] Raheel Gee Unavailable [phone] Riya Fulton Unavailable Sergio Hackett Unavailable Unavailable Dominga Silva PharmD Unavailable Raheel Slater Unavailable Encounter Details Date Type Department Care Team (Late Contact Info) Description 09/13/2022 Abstract [facility] MEDICINE [address] [place], [place] [phone] Ashley Frankel MD [address] [place], [place] [phone] Social History Tobacco Use Types Packs/Day Years [...] Encounters Date Type Department Care Team (Late Contact Info) Description 09/08/2025 10:30 AM EST Office Visit [facility] OPTOMETRY [address] [place] [address] Tania Cordon, OD [address] [place] [address] documented as of this encounter Procedures Procedure Name Priority Date/Time Associated Diagnosis Comments COLONOSCOPY Routine 09/06/2012 documented in this encounter Results * Colonoscopy (09/06/2012) Colonoscopy normal with Dr. Barrera us Historical Provider HEALTH MAINTENANCE Final Result documented in this encounter Visit Diagnoses Not on filedocumented in this encounter Care Teams Procurement Consultant Relationship Specialty Start Date End Date Ashley Frankel MD [address] [place] [address] PCP - General Family Medicine 08/28/18November 11 [facility] [address]rd [place] [address] Gastroenterology 07/17/24 Kishore Dorsey MD [address] [facility] [address] [place] [address] Urology 07/17/24 Raheel Gee 5 [place], [place] [address] Pulmonary Disease 07/17/24 Riya Fulton [address] [address] Cardiology 07/17/24 Sergio Hackett [address] [place] [address] Orthopaedic Surgery 07/17/24 Dominga Silva, Mehrdad 230 [place] [address] Pharmacist Internal Medicine 07/22/24 05/07/25 Raheel Slater [address] [address] Podiatry 01/22/25 [facility] 10/10/24 documented as of this encounter
--- OUTSIDE RECORDS SUMMARY | 2025-05-13 18:46 | XMS_ITS | Encounter Summary ---
Author Organization [employer] Address [address] [facility] 7t [place] [address] Care Team Providers Care Store Receiving Clerk Name Role Phone Ashley Frankel MD Primary Care Provider [phone]- [phone] November Unavailable Kishore Dorsey MD Unavailable Raheel Gee Unavailable [phone] Riya Fulton Unavailable Sergio Hackett Unavailable Unavailable Dominga Silva PharmD Unavailable Raheel Slater Unavailable Encounter Details Date Type Department Care Team (Late st Contact Info) Description 02/01/[address] [facility] MEDICINE [address] [place], [place] [phone] Ashley Frankel MD [address] [place], [place] [phone] Social History Tobacco Use Types Packs/Day Years [...] Description 09/08/2025 10:30 AM EST Office Visit [facility] OPTOMETRY [address] [place] [address] Bravo, Tania, OD 230 [place] [address] documented as of this encounter Visit Diagnoses Not on filedocumented in this encounter Care Teams Store Receiving Clerk Relationship Specialty Start Date End Date Ashley Frankel MD [address] [place] [address] PCP - General Family Medicine 08/28/18November [address] [address] Gastroenterology 07/17/24 Kishore Dorsey MD [address] [place] [address] Urology 07/17/24 Raheel Gee 5 [place], [place] [address] Pulmonary Disease 07/17/24 Riya Fulton [address] [address] Cardiology 07/17/24 Sergio Hackett [address] [place] [address] Orthopaedic Surgery 07/17/24 Dominga Silva, Mehrdad [address] [place] [address] Pharmacist Internal Medicine 07/22/24 05/07/25 Raheel Slater [address] [place] [address] Podiatry 01/22/25 [facility] 10/10/24 documented as of this encounter
--- OUTSIDE RECORDS SUMMARY | 2025-05-13 18:46 | XMS_ITS | Encounter Summary ---
Author Organization [employer] Address [address] [facility] 7t [place] [address] Care Team Providers Care Beauty Advisor Name Role Phone Ashley Frankel MD Primary Care Provider [phone]- [phone] November Unavailable Kishore Dorsey MD Unavailable Raheel Gee Unavailable [phone] Riya Fulton Unavailable Sergio Hackett Unavailable Unavailable Dominga Silva PharmD Unavailable Raheel Slater Unavailable Encounter Details Date Type Department Care Team (Latest Contact Info) Description 06/08/2022 Abstract [facility] CONVERSIONS Dental, Provider, DDS Social [...] 10:30 AM EST Office Visit [facility] OPTOMETRY [address] [place], [place] [phone] Bravo, Tania, OD 230 [place], [place] [phone] documented as of this encounter Visit Diagnoses Not on filedocumented in this encounter Care Teams Beauty Advisor Relationship Specialty Start Date End Date Ashley Frankel MD 230 [place] [address] PCP - General Family Medicine 08/28/18November [address] [address] Gastroenterology 07/17/24 Kishore Dorsey MD [address] [place] [address] Urology 07/17/24 Raheel Gee 5 [place], [place] [address] Pulmonary Disease 07/17/24 Riya Fulton [address] [address] Cardiology 07/17/24 Sergio Hackett [address] [facility] [address] Orthopaedic Surgery 07/17/24 Dominga Silva PharmD 230 [place] [address] Pharmacist Internal Medicine 07/22/24 05/07/25 Raheel Slater [address] [address] Podiatry 01/22/25 [facility] 10/10/24 documented as of this encounter
--- OUTSIDE RECORDS SUMMARY | 2025-05-13 18:46 | XMS_ITS | Encounter Summary ---
Author Organization [employer] Address [address] [place] [address] 7t [place] [address] Care Team Providers Care Alterations Workroom Clerk Name Role Phone Ashley Frankel MD Primary Care Provider [phone]- [phone] Viktor November Unavailable Kishore Dorsey MD Unavailable Raheel Gee Unavailable [phone] Riya Fulton Unavailable Sergio Hackett Unavailable Unavailable Dominga Silva PharmD Unavailable Raheel Slater Unavailable Encounter Details Date Type Department Care Team (Late Contact Info) Description 04/07/2023 Abstract [facility] MEDICINE 230 [place], [place] [phone] Ashley Frankel MD 230 [place], [place] [phone] Social History Tobacco Use Types Packs/Day Years [...] Description 09/08/2025 10:30 AM EST Office Visit [facility] OPTOMETRY [address] [place] [address] Bravo, Tania, OD 230 [place] [address] documented as of this encounter Procedures Procedure Name Priority Date/Time Associated Diagnosis Comments COLONOSCOPY Routine 04/06/2023 documented in this encounter Results * Hm Colonoscopy (04/06/2023) Colonoscopy Normal Normal us Historical Provider HEALTH MAINTENANCE Final Result documented in this encounter Visit Diagnoses Not on filedocumented in this encounter Care Teams Alterations Workroom Clerk Relationship Specialty Start Date End Date Ashley Frankel MD [address] [place] [address] PCP - General Family Medicine 08/28/18 ViktorNovember 11 [facility] [address] [place] [address] Gastroenterology 07/17/24 Kishore Dorsey MD [address] [place] [address] Urology 07/17/24 Raheel Gee 5 [place], [place] [address] Pulmonary Disease 07/17/24 Riya Fulton [address] [place] [address] Cardiology 07/17/24 Sergio Hackett [address] [place] [address] Orthopaedic Surgery 07/17/24 Dominga Silva, Mehrdad [address] [place] [address] Pharmacist Internal Medicine 07/22/24 05/07/25 Raheel Slater 175 [place] [address] Podiatry 01/22/25 [facility] 10/10/24 documented as of this encounter
--- OUTSIDE RECORDS SUMMARY | 2025-05-13 18:46 | XMS_ITS | Clinical Summary ---
Author Organization [address] [place] [address] Address [address] [place] [address] Phone Care Team Providers Care Pond Sawyer Name Role Phone Ashley Frankel MD Primary Care Provider [phone]- [phone] Allergies Active Allergy Reactions Criticality Noted Date Comments Clindamycin Anaphylaxis,Unknown High 03/29/2012 Doxycycline Diarrhea,Unknown Low 01/31/2023 Penicillins Anaphylaxis,Unknown High 04/06/2012 Other reaction(s): UNKNOWN REACTION-CHILDHOOD Medications No known medications Medical History Medical History Date Comments Hypertension Diabetes mellitus (CMS/[facility] V24, CMS/[facility] V28) Social History Tobacco Use [...] of 2 - PCV) 05/14/2016 05/14/2015, 06/30/2006 Colorectal Cancer Screening: Colonoscopy 08/09/2024 Diabetes: Annual Urine Albumin-Creatinine Ratio (uACR) 08/09/2024 Medicare Annual Wellness Visit 08/09/2024 Social Influencers of Health Screening 08/09/2024 RSV Immunization Adult Patients (1 - Risk 60-74 years 1-dose series) 2024 Depression Screening 08/28/2024 Diabetes: Blood Sugar Control Test (HGBA1C) 02/11/2025 08/13/2024, 07/17/2024, 07/17/2024 COVID-19 Vaccine ( season) 2025 Influenza Vaccine (#1) 2025 9, 05/18/2018, 05/31/2017, [...] mmol/L LAB CHEMISTRY METHOD 10/12/2024 12:38 AM [facility] Potassium 4.3 3.5 - 5.5 mmol/L LAB CHEMISTRY METHOD 10/12/2024 12:38 AM [facility] Chloride 107 96 - 110 mmol/L LAB CHEMISTRY METHOD 10/12/2024 12:38 AM [facility] CO2 30 21 - 32 mmol/L LAB CHEMISTRY METHOD 10/12/2024 12:38 AM [facility] Anion Gap 1(L) 3 - 11 LAB CHEMISTRY METHOD 10/12/2024 12:38 AM [facility] Glucose 126(H) 70 - 100 mg/dL LAB CHEMISTRY METHOD 10/12/2024 12:38 AM [facility] BUN 15 5 - 25 mg/dL LAB CHEMISTRY METHOD 10/12/2024 12:38 AM [facility] Creatinine 1.15 0.70 - 1.30 mg/dL LAB CHEMISTRY METHOD 10/12/2024 12:38 AM [facility] eGFR 73 >=60 mL/min/1. 73m2 LAB CHEMISTRY METHOD 10/12/2024 12:38 AM [facility] Comment:Calculation based on the Chronic Kidney Disease Epidemiology Collaboration (CKD-EPI) equation refit without adjustment for race. BUN/Creatinine Ratio 13.0 LAB CHEMISTRY METHOD 10/12/2024 12:38 AM [facility] Calcium 9.8 8.5 - 10.5 mg/dL LAB CHEMISTRY METHOD 10/12/2024 12:38 AM [facility] AST (SGOT) 24 10 - 42 unit/L LAB CHEMISTRY METHOD 10/12/2024 12:38 AM [facility] ALT (SGPT) 22 10 - 60 unit/L LAB CHEMISTRY METHOD 10/12/2024 12:38 AM [facility] Alkaline Phosphatase 100 42 - 121 unit/L LAB CHEMISTRY METHOD 10/12/2024 12:38 AM [facility] Total Protein 6.9 6.0 - 8.0 g/dL LAB CHEMISTRY METHOD 10/12/2024 12:38 AM [facility] Albumin 3.9 3.2 - 5.0 g/dL LAB CHEMISTRY METHOD 10/12/2024 12:38 AM [facility] Total Bilirubin 0.6 0.0 - 1.4 mg/dL LAB CHEMISTRY METHOD 10/12/2024 12:38 AM [facility] Blood Venous blood specimen / Unknown Venipuncture / Unknown 10/11/2024 11:18 PM EST 10/11/2024 11:44 PM EST us Smith Quan MD LAB BLOOD ORDERABLES Final Result [facility] [address] [place] [address], [place] [phone] from Last 3 Months or Most Recently Relevant to Health Maintenance Insurance [facility] Member Subscriber Plan / Payer (Ef fective 2023-Present) Name:BOBBY WAY Relation to Subscriber:Self Name:Bobby Way Payer ID:[id number] Group ID:[id number] Type:Not on file Address: [place] [address] [address] [id number] Care Teams Pond Sawyer Relationship Specialty Start Date End Date Franklin, MD Ashley [address] [place] [phone] PCP - General Family Medicine 08/09/24
--- OUTSIDE RECORDS SUMMARY | 2025-05-13 18:46 | XMS_ITS | Encounter Summary ---
Author Organization [employer] Address [address] [facility] 7t [place] [address] Care Team Providers Care Applier Name Role Phone Ashley Frankel MD Primary Care Provider [phone]- [phone] November Unavailable Kishore Dorsey MD Unavailable Raheel Gee Unavailable [phone] Riya Fulton Unavailable Sergio Hackett Unavailable Unavailable Dominga SilvaD Unavailable Raheel Slater Unavailable Reason for Visit * Reason Comments Med Refill Encounter Details Date Type Department Care Team (Late st Contact Info) Description 07/24/2023 Refill [facility] [address] [place], [place] [phone] [facility] [address] [place], [place] [phone] Prostatitis, acute Social History Tobacco Use Types [...] Description 09/08/2025 10:30 AM EST Office Visit [facility] [address] [place] [address] Bravo, Tania, OD 230 [place] [address] documented as of this encounter Visit Diagnoses Diagnosis Prostatitis, acute Acute prostatitis documented in this encounter Care Teams Applier Relationship Specialty Start Date End Date Ashley Frankel MD [address] [place] [address] PCP - General Family Medicine 08/28/18November [address] 3rd [place] [address] Gastroenterology 07/17/24 Kishore Dorsey MD [address] [place] [address] Urology 07/17/24 Raheel Gee 5 [place] 10[address] Pulmonary Disease 07/17/24 Riya Fulton [address] 3rd [place] [address] Cardiology 07/17/24 Sergio Hackett [address] [place] [address] Orthopaedic Surgery 07/17/24 Dominga Silva, Mehrdad [address] [place] [address] Pharmacist Internal Medicine 07/22/24 05/07/25 Raheel Slater [address] [address] Podiatry 01/22/25 [facility] 10/10/24 documented as of this encounter
--- OUTSIDE RECORDS SUMMARY | 2025-05-13 18:46 | XMS_ITS | Clinical Summary ---
Author Organization [employer] Address [address] [place] [address] Care Team Providers Care Systems Designer Name Role Phone Ashley Frankel MD Primary Care Provider [phone] November Unavailable Kishore Dorsey MD Unavailable [phone] Raheel Gee Unavailable [phone] Riya Fulton Unavailable Sergio Hackett Unavailable Unavailable Raheel Slater Unavailable Allergies Active Allergy Reactions Criticality Noted [...] symptom details unspecified 5 mg. 4 Active FreeStyle lancetsIndicatio ns:Type 2 diabetes [...] A DAY 100 strip 11 4 Active cetirizine (ZyrTEC) 10 MG tabletIndication s:Allergic rhinitis, unspecified seasonality, unspecified trigger TAKE 1 TABLET BY MOUTH EVERY DAY NEEDED 90 tablet 5 Active famotidine (Pepcid) 40 MG tabletIndication s:Gastroesophage al reflux disease, unspecified whether esophagitis present TAKE 1 TABLET BY MOUTH EVERY DAY NEEDED FOR FOR HEARTBURN 5 Active traZODone (Desyrel) 50 MG tabletIndication s:Anxiety 50 mg. 4 Active hydrOXYzine HCl (Atarax) 25 MG tabletIndication s:Anxiety Take by mouth. Activ e atorvastatin (Lipitor) 80 MG tabletIndication s:Dyslipidemia Take 1 tablet (80 mg) by mouth Once per day. 90 tablet 3 5 Active lisinopril 40 MG tabletIndication s:Primary hypertension Take 1 tab po qhs 90 tablet 3 5 Active Bisacodyl EC 5 MG EC tabletIndication s:Constipation, unspecified constipation type Take 2 tablets (10 mg) by mouth at bedtime. 30 tablet 5 Active docusate sodium (Colace) 100 MG capsuleIndicatio ns:Constipation, unspecified constipation type Take 1 tab po bid prn constipation 60 capsule 1 5 Active Senna-Time 8.6 MG tabletIndication s:Constipation, unspecified constipation type Take 1 tablet (8.6 mg) by mouth if needed at bedtime for constipation. 30 tablet 2 5 Active amLODIPine (Norvasc) 10 MG tabletIndication s:Primary hypertension Take 1 tablet (10 mg) by mouth Once per day. 90 tablet 3 5 026 Active Active Problems Patient Care Coordination No te Formatting of this note migh t be different from the original. [facility] Pillowcase Cleaner: Kamila, member services number [phone], provider services line, , option 4 [employer] Manager Agency: refused services Problem Noted Date Diagnosed Date Anemia 03/31/2025 Overview (03/31/2025): Lab Results Component Value Date FERRITIN 52 02/11/2025 HGB 13.1 (L) 02/15/2025 HGB 14.4 01/17/2025 HGB 14.9 12/23/2021 HGB 13.9 04/20/2021 HEMATOCRIT 44.0 12/23/2021 HEMATOCRIT 41.3 04/20/2021 -will repeat hgb 03/31/25 -will send hemoccult stool test 03/31/25 Assessment & Plan (03/31/2025 11:39 AM EDT): Lab Results Component Value Date FERRITIN 52 02/11/2025 HGB 13.1 (L) 02/15/2025 HGB 14.4 01/17/2025 HGB 14.9 12/23/2021 HGB 13.9 04/20/2021 HEMATOCRIT 44.0 12/23/2021 HEMATOCRIT 41.3 04/20/2021 -will repeat hgb 03/31/25 -will send hemoccult stool test 03/31/25 Renal cysts, acquired, bilateral 02/12/2025 Overview (02/12/2025): -renal US ordered by Dr. Kishore Dorsey 02/11/25 Impression: No nephrolithiasis or hydronephrosis. Kidneys are normal size and position with normal cortical width and echotexture. Probable incidental renal cortical cysts mid to lower pole left kidney. Correlate with previous ultrasound and CT exams. Otherwise, six-month follow-up ultrasound recommended. Assessment & Plan (03/31/2025 11:39 AM EDT): -renal US ordered by Dr. Kishore Dorsey 02/11/25 Impression: No nephrolithiasis or hydronephrosis. Kidneys are normal size and position with normal cortical width and echotexture. Probable incidental renal cortical cysts mid to lower pole left kidney. Correlate with previous ultrasound and CT exams. Otherwise, six-month follow-up ultrasound recommended. Weight loss, non-intentional 10/24/2024 Overview (03/31/2025): Pt reports unknown weight loss over the past several months. Denies fatigue, fevers, lymphadenopathy or recent illness. Baseline weight 2023 190 lbs until 06/2024 when weight started to drop. BMI Readings from Last 7 Encounters: 02/11/25 26.38 kg/m 02/08/25 26.06 kg/m 02/01/25 26.12 kg/m 01/25/25 26.75 kg/m 01/23/25 26.41 kg/m 01/17/25 26.34 kg/m 12/07/24 26.70 kg/m Wt Readings from Last 7 Encounters: 02/11/25 168 lb 6.4 oz (76.4 kg) 02/08/25 166 lb 6.4 oz (75.5 kg) 02/01/25 166 lb 12.8 oz (75.7 kg) 01/25/25 170 lb 12.8 oz (77.5 kg) 01/23/25 168 lb 9.6 oz (76.5 kg) 01/17/25 168 lb 3.2 oz (76.3 kg) 12/07/24 170 lb 8 oz (77.3 kg) -colonoscopy normal 04/06/23 -CXR normal 08/2024 -CT abd 09/2924 with not pathology that would be concern for weight loss -ordered lactate dehydrogenase, Vit D, TSH, and HIV 10/24/24, which were all unremarkable. -renal US 02/10/25 in ER Impression: No nephrolithiasis or hydronephrosis. Kidneys are normal size and position with normal cortical width and echotexture. Probable incidental renal cortical cysts mid to lower pole left kidney. Correlate with previous ultrasound and CT exams. Otherwise, six-month follow-up ultrasound recommended. -chest CT 02/10/25 IMPRESSION: 9.7 mm nodular density of the left lower lobe. CT chest follow-up in 3 months is recommended. -CT abdomen and pelvis 02/10/25 IMPRESSION: Mild rectal wall thickening suggestive of mild proctitis. No significant constipation or acute finding of the colon or small bowel. Findings likely relating to underlying ankylosing spondylitis. Mildly thick-walled but incompletely distended urinary bladder. This may indicate cystitis or underlying chronic outlet obstruction. There is moderate prostate enlargement measuring 4.9 cm in diameter. Lab Results Component Value Date PSA 0.69 08/13/2024 TSH 1.31 10/24/2024 [id number] NON-REACTIVE 02/13/2020 -continues to loose weight, has some anemia in recent labs. Re-referred to GI 03/31/25. Assessment & Plan (03/31/2025 11:39 AM EDT): Pt reports unknown weight loss over the past several months. Denies fatigue, fevers, lymphadenopathy or recent illness. Baseline weight 2023 190 lbs until 06/2024 when weight started to drop. BMI Readings from Last 7 Encounters: 02/11/25 26.38 kg/m 02/08/25 26.06 kg/m 02/01/25 26.12 kg/m 01/25/25 26.75 kg/m 01/23/25 26.41 kg/m 01/17/25 26.34 kg/m 12/07/24 26.70 kg/m Wt Readings from Last 7 Encounters: 02/11/25 168 lb 6.4 oz (76.4 kg) 02/08/25 166 lb 6.4 oz (75.5 kg) 02/01/25 166 lb 12.8 oz (75.7 kg) 01/25/25 170 lb 12.8 oz (77.5 kg) 01/23/25 168 lb 9.6 oz (76.5 kg) 01/17/25 168 lb 3.2 oz (76.3 kg) 12/07/24 170 lb 8 oz (77.3 kg) -colonoscopy normal 04/06/23 -CXR normal 08/2024 -CT abd 09/2924 with not pathology that would be concern for weight loss -ordered lactate dehydrogenase, Vit D, TSH, and HIV 10/24/24, which were all unremarkable. -renal US 02/10/25 in ER Impression: No nephrolithiasis or hydronephrosis. Kidneys are normal size and position with normal cortical width and echotexture. Probable incidental renal cortical cysts mid to lower pole left kidney. Correlate with previous ultrasound and CT exams. Otherwise, six-month follow-up ultrasound recommended. -chest CT 02/10/25 IMPRESSION: 9.7 mm nodular density of the left lower lobe. CT chest follow-up in 3 months is recommended. -CT abdomen and pelvis 02/10/25 IMPRESSION: Mild rectal wall thickening suggestive of mild proctitis. No significant constipation or acute finding of the colon or small bowel. Findings likely relating to underlying ankylosing spondylitis. Mildly thick-walled but incompletely distended urinary bladder. This may indicate cystitis or underlying chronic outlet obstruction. There is moderate prostate enlargement measuring 4.9 cm in diameter. Lab Results Component Value Date PSA 0.69 08/13/2024 TSH 1.31 10/24/2024 [id number] NON-REACTIVE 02/13/2020 -continues to loose weight, has some anemia in recent labs. Re-referred to GI 03/31/25. Orders: Referral to Gastroenterology; Future Assessment & Plan (01/23/2025 11:03 AM EDT): Baseline weight 2023 190 lbs until 06/2024 when weight started to drop Weight 10/24/23: 171 lbs Reports unknown weight loss over the past couple months. Denies fatigue, fevers, lymphadenopathy or recent illness. -colonoscopy normal 04/06/23 -CXR normal 08/2024 -CT abd 10/22 with not pathology that would be concern for weight loss -ordered lactate dehydrogenase, Vit D, TSH, and HIV 10/24/24, which were all unremarkable. Assessment & Plan (10/24/2024 9:38 AM EST): [...] and HIV 10/24/24 Renal calculi 09/30/2024 Overview (01/23/2025): US 09/27/24 Impression: Moderate to severe right hydronephrosis with 9 mm stone distal right ureter. No additional stones evident on either side. Bladder volumes as above. Bladder diverticula noted. Enlarged prostate. -pt admitted and Undergone right ureteroscopy and laser lithotripsy with stent placement (10/01/2024) with Dr. Bashir Perdue Assessment & Plan (01/23/2025 11:04 AM EDT): US 09/27/24 Impression: Moderate to severe right hydronephrosis with 9 mm stone distal right ureter. No additional stones evident on either side. Bladder volumes as above. Bladder diverticula noted. Enlarged prostate. -pt admitted and Undergone right ureteroscopy and laser lithotripsy with stent placement (10/01/2024) with Dr. Bashir Perdue Mild nonproliferative diabet ic retinopathy of right [...] moderate physical activity and nutrition interventions discussed. Ankylosis of spine 12/20/2023 Chronic low back pain with bilateral sciatica Overview (11/13/2023): -referred to physical therapy and have xray taken Assessment & Plan (11/13/2023 11:06 AM EDT): -referred to physical therapy and have xray taken Chronic migraine without aura 10/02/2023 Benign prostatic hyperplasia with urinary obstru ction 04/27/2023 Overview (03/05/2025): -Followed by urology, Dr. Dorsey, seen 11/15/24, cystoscopy done, continue terazosin -CT in ER 01/17/25 CT/CT abdomen pelvis w IV con Mildly thick-walled but incompletely distended urinary bladder. This may indicate cystitis or underlying chronic outlet obstruction. There is moderate prostate enlargement measuring 4.9 cm in diameter. Note from Dr. Dorsey 03/04/25 reviewed Assessment & Plan (03/31/2025 11:39 AM EDT): -Followed by urology, Dr. Dorsey, seen 11/15/24, cystoscopy done, continue terazosin -CT in ER 01/17/25 CT/CT abdomen pelvis w IV con Mildly thick-walled but incompletely distended urinary bladder. This may indicate cystitis or underlying chronic outlet obstruction. There is moderate prostate enlargement measuring 4.9 cm in diameter. Note from Dr. Dorsey 03/04/25 reviewed Assessment & Plan (01/23/2025 11:04 AM EDT): -Followed by urology, Dr. Dorsey, seen 11/15/24, cystoscopy done, continue terazosin -CT in ER 01/17/25 CT/CT abdomen pelvis w IV con Mildly thick-walled but incompletely distended urinary bladder. This may indicate cystitis or underlying chronic outlet obstruction. There is moderate prostate enlargement measuring 4.9 cm in diameter. Hard of hearing 04/27/2023 Chest discomfort 04/27/2023 Overview (10/02/2023): Extensive [...] after 07/17/25 -eye care facilitated by [facility] -dental home is [facility] -health care proxy paperwork given 11/13/2023, given again 07/17/24 Assessment & Plan (07/17/2024 10:32 AM EST): -next physical exam due after 07/17/25 -eye care facilitated by [facility] -dental home is [facility] -health care proxy paperwork given 11/13/2023, given again 07/17/24 Assessment & Plan (11/13/2023 10:07 AM EDT): -next physical exam due after 04/27/2024 -eye care facilitated by [facility] -dental home is [facility] -health care proxy paperwork given 11/13/2023 Assessment & Plan (04/27/2023 9:45 AM EDT): -next physical exam due after 04/27/2024. -eye care facilitated by [facility], last visit 01/16/2023 -dental home is [facility] Class 1 obesity 02/24/2023 Erectile [...] . Will rescheduled Colonoscopy. Dyslipidemia 11/07/2022 Overview (01/23/2025): Lab Results Component Value Date CHOL 146 08/13/2024 CHOL 185 07/17/2024 CHOL 183 06/29/2023 TRIG 86 08/13/2024 TRIG 79 07/17/2024 TRIG 65 06/29/2023 TRIG 95 11/11/2022 HDL 33 (L) 08/13/2024 HDL 60 07/17/2024 HDL 59 06/29/2023 LDLCHOLCAL 96 08/13/2024 LDLCHOLCAL 110 (H) 07/17/2024 LDLCHOLCAL 111 (H) 06/29/2023 -continue lifestyle modification -Atorvastatin 80mg (dose increased 06/2024) -continue medication [...] the strong evidence that these meds prevent IL/CVA. Continue atorvastatin 80qhs. Encouraged to take. Anxiety [...] was unremarkable. Solitary pulmonary nodule 07/25/2022 Overview (04/09/2025): -Chest CT on 07/29/2019 showed a focal [...] CT May 2021 -CT 01/24/[address] Raheel Gee MD, redemonstration of innumerable mixed calcified and noncalcified pulmonary nodules, not significantly changed compared to most recent CT chest from 08/09/2022, largest measuring 6 mm. -02/12/25ordered by spout liner Dr. Raheel Gee MD IMPRESSION: 9.7 mm nodular density of the left lower lobe. CT chest follow-up in 3 months is recommended. According to the UPDATED 2017 Fleischner Society recommendations, the advised follow-up imaging for multiple solid nodules measuring up to 6-8 mm is follow-up CT at 3 to 6 months. In high-risk patients, subsequent CT follow-up at 18 to 24 months is recommended. In low-risk patients, subsequent CT follow-up at 18 to 24 months is optional. -note from Dr. Gee 04/07/25, CT ordered, follow up 6 months Assessment & Plan (11/13/2023 10:19 AM EDT): [...] DISH (diffuse idiopathic skeletal hyperostosis) 10/14/2021 Overview (04/01/2025): -CT on 07/11/2018 showed chronic loss of vertebral body height at multiple levels. -There is severe calcification of the anterior longitudinal ligament consistent with DISH. There are multilevel spondylitic and facet arthropathic changes. He continues with progressively neck stiffness. -Although he has appropriate peripheral vision I recommend he talk to DOT and not driving and getting tx for his neck. -Followed by [facility]. -Saw Dr. Evin Bhat at [facility] 02/2021 -referred to orthopedic on 11/13/2023 - Provided number to schedule follow up with orthopedist 07/16/24 Last imaging was >5 years ago, will order new XR 03/31/25 -XR 03/31/25 Suspected ankylosing spondylitis with thick syndesmophyte across the visible portions of anterior cervical spine and probable intraosseous ossification involving most of the cervical disks. -re-referred to orthopedics 03/31/25 Assessment & Plan (04/01/2025 8:35 AM EDT): -CT on 07/11/2018 showed chronic [...] tx for his neck. -Followed by [facility]. -Saw Dr. Evin Bhat at [facility] 02/2021 -referred to orthopedic on 11/13/2023 - Provided number to schedule follow up with orthopedist 07/16/24 Last imaging was >5 years ago, will order new XR 03/31/25 -XR 03/31/25 Suspected ankylosing spondylitis with thick syndesmophyte across the visible portions of anterior cervical spine and probable intraosseous ossification involving most of the cervical disks. -re-referred to orthopedics 03/31/25 Orders: Referral to Orthopaedic Surgery; Future XR Cervical Spine 2-3 Views; Future Assessment & Plan (07/17/2024 10:19 AM EST): [...] tx for his neck. -Followed by [facility]. -Saw Dr. Evni Bhat at [facility] 02/2021 -referred to orthopedic on 11/13/2023 [...] tx for his neck. -Followed by [facility]. -Saw Dr. Evin Bhat at [facility] 02/2021 -referred to orthopedic on 11/13/2023 [...] tx for his neck. Followed by [facility]. Saw Dr. Evin Bhat at [facility] 02/2021 Assessment & Plan (04/27/2023 9:22 [...] tx for his neck. Followed by [facility]. Saw Dr. Evin Bhat at [facility] 02/2021 Assessment & Plan (11/07/2022 11:31 [...] tx for his neck. Followed by [facility]. Saw Dr. Evin Bhat at [facility] 02/2021 Mild intermittent asthma 10/14/2021 Overview (11/20/2024): -Followed by Dr. Raheel Gee at [facility]. Note from 11/20/24 reviewed -Well controlled on albuterol and cetrizine for allergies Assessment & Plan (07/17/2024 10:17 AM EST): Well controlled on albuterol. Assessment & Plan (11/13/2023 10:18 AM EDT): Well controlled on albuterol. Assessment & Plan (07/05/2023 10:12 AM EST): Well controlled on albuterol. Assessment & Plan (04/27/2023 9:42 AM EDT): Well controlled on albuterol. Assessment & Plan (11/09/2022 11:15 AM EDT): Hypertension 10/03/2012 Overview (03/31/2025): -Blood pressure is not at goal -Continue lifestyle modifications Patient reported at [facility] visit 02/14/25 self-discontinuation of amlodipine 10mg and chlorthalidone 25mg months ago; were formally discontinued at this visit Patient denied having started recent addition of spironolactone; [facility] restarted amlod[facility]ine 5mg once daily and to continue lisinopril 40mg -Continue current medications - Referred to [facility] with our YUE Cronin 07/17/24 however many no shows until 02/14/25 -BP elevated 158/88 10/24/24, and again at visit on 01/23/25 198/98 -referred back to [facility] with our YUE Cronin 10/24/24 -advised to take lisinopril at night and other meds in am (was taking all at night) and continue to check home BP 10/24/24 -start spironolactone (Aldactone) 25 MG 01/23/25, will check labs in 10 days and got pt set up to see [facility] with our YUE Cronin(re-referred to [facility] with YUE escudero PharmD 01/23/25) in the next couple days. -Seen on 02/14/25 by [facility], had been off medications for months and was restarted on amlodipine 5mg and continued lisinopril 40mg. -Elevated BP 03/31/25, will increase amlodipine to 10mg Assessment & Plan (03/31/2025 11:39 AM EDT): -Blood pressure is not at goal -Continue lifestyle modifications Patient reported at [facility] visit 02/14/25 self-discontinuation of amlodipine 10mg and chlorthalidone 25mg months ago; were formally discontinued at this visit Patient denied having started recent addition of spironolactone; [facility] and restarted amlodipine 5mg once daily and to continue lisinopril 40mg -Continue current medications - Referred to [facility] with our YUE Cronin 07/17/24 however many no shows until 02/14/25 -BP elevated 158/88 10/24/24, and again at visit on 01/23/25 198/98 -referred back to [facility] with our YUE Cronin 10/24/24 -advised to take lisinopril at night and other meds in am (was taking all at night) and continue to check home BP 10/24/24 -start spironolactone (Aldactone) 25 MG 01/23/25, will check labs in 10 days and got pt set up to see [facility] with our YUE Cronin(re-referred to [facility] with our YUE Cronin 01/23/25) in the next couple days. -Seen on 02/14/25 by [facility], had been off medications for months and was restarted on amlodipine 5mg and continued lisinopril 40mg. -Elevated BP 03/31/25, will increase amlodipine to 10mg Orders: amLODIPine (Norvasc) 10 MG tablet; Take 1 tablet (10 mg) by mouth Once per day. CBC auto differential; Future Fecal immunochemical; Future Assessment & Plan (01/23/2025 11:08 AM EDT): -Blood pressure is not at goal -Continue lifestyle modifications -Continue current medications -Continue lisinopril 40mg daily -Continue amlodipine 10mg daily -Chlorthalidone 25mg started 04/27/2023. - Referred to [facility] with YUE escudero PharmD 07/17/24 -BP elevated 158/88 10/24/24, and again at visit on 01/23/25 198/98 -referred back to [facility] Program with our YUE Cronin 10/24/24 -advised to take lisinopril at night and other meds in am (was taking all at night) and continue to check home BP 10/24/24 -start spironolactone (Aldactone) 25 MG 01/23/25, will check labs in 10 days and got pt set up to see [facility] with our YUE Cronin(re-referred to [facility] with our YUE Cronin 01/23/25) in the next couple days. Assessment & Plan (10/24/2024 9:40 AM EST): -Blood pressure is not at goal -Continue lifestyle modifications -Continue current medications -Continue lisinopril 40mg daily -Continue amlodipine 10mg daily -Chlorthalidone 25mg started 04/27/2023. - Referred to [facility] Program with our YUE Cronni 07/17/24 -BP elevated 158/88 10/24/24 -referred back [...] mellitus type 2, uncomplicated 09/28/19 13 Overview (01/23/2025): Diabetes is controlled on diet and exercise alone. Lab Results Component Value Date HGBA1C 6.2 (H) 08/13/2024 HGBA1C 6.1 (H) 07/17/2024 HGBA1C 6.3 (A) 07/17/2024 Lab Results Component Value Date CREATININE 0.98 01/17/2025 EGFR >60 01/17/2025 MICROALBCREU 17.6 08/13/2024 MICROALBCREU 28.4 07/17/2024 LDLCHOLCAL 96 08/13/2024 -Changes: none -Ry/Arb: lisinopril 40 -Statin therapy: atorvastatin 40 -Diabetic eye exam: 06/19/2024 -Diabetic foot exam: 01/14/25 with Orthopedics noted enlarged and hypertrophic nails, as well as arthritis of both feet. -Continue lifestyle modifications Assessment & Plan (07/17/2024 [...] Problem Noted Date Diagnosed Date Resolved Date Overweight 10/24/2024 01/22/2025 Overview (10/24/2024): Discussed weight, diet, exercise with [...] in added sugars, saturated fat, and sodium. Exercise counseling 10/24/2024 10/24/19 Assessment & Plan [...] right ureteroscopy laser lithotripsy stent insertion, 6 Croatian by [address] Mayda Rodriguez. [...] however, a developing infiltrate cannot be excluded. Acute bilateral low back dahlia n without sciatica 03/05/2024 11/20/2024 Diffuse idiopathic skeletal hyperostosis of cervicothoracic spine 12/20/2023 10/24/2024 Abnormal stress test 10/02/2023 10/02/2023 024 History of Clostridioides difficile colitis 04/27/2023 11/20/2024 Migraine 04/27/2023 01/22/2025 Nasal polyps 04/27/2023 11/20/2024 Nocturia more than twice per night 04/27/2023 07/04/2023 Pulmonary nodules 04/27/2023 11/20/2024 Overview (10/24/2024): Chest CT on 07/29/2019 showed [...] He reports had repeat CT done Jul 3 with not change. Will request report. [...] for repeat CT May 2021 Sinusitis 04/27/2023 01/22/2025 Headache 03/13/2023 07/04/2023 Assessment & Plan (03/13/2023 [...] Encounters Date Type Department Care Team Description 05/07/[address] [facility] [address] [place] [address] [phone] Dominga Silva, AnanthD 04/07/2025 Telephone [facility] [address] [place] [address] Ashley Frankel MD Results 03/31/2025 11:15 AM EDT Office Visit [facility] [address] [place], [place] [address] [place] [place] [address] Ashley Fraknel MD Primary hypertension (Primary Dx); DISH (diffuse idiopathic skeletal hyperostosis); Decreased range of motion of neck; Weight loss, non-intentional; Anemia, unspecified type; Renal cysts, acquired, bilateral; Benign prostatic hyperplasia with urinary obstruction; Hyperpigmented skin lesion; Constipation, unspecified constipation type 03/31/2025 Orders Only [address] [facility] [place] [facility] [place] [address] Ashley Frankel MD DISH (diffuse idiopathic skeletal hyperostosis) 03/31/2025 Travel 03/28/[address] [place] [address] Ashley Frankel MD chartprep 03/21/2025 Patient Outreach [address] [place] [address] Ashley Frankel MD Pre-visit Planning (SDOH screening was completed on 01/23/2025) 03/07/2025 [address] [place] [address] Ashley Frankel MD Appointment Request 02/15/2025 Orders Only GENERIC EXTERNAL DATA DEPARTMENT Provider, Generic External Data 02/14/2025 Telephone [facility] [place] [address] Aurora Alexandre RN 02/14/2025 Travel 02/12/2025 Results Follow-Up [address] [place] [address] Bryan Coleman MD POCT Urinalysis 02/12/2025 Results Follow-Up [address] [place] [address] Bryan Coleman MD Basic Metabolic Panel 02/12/2025 Results Follow-Up [address] [place] [address] Bryan Coleman MD Iron And Total Iron Binding Capacity, Ferritin, Vitamin B12/Folate, Serum Panel, Additional followed-up results: 2 02/11/2025 9:00 AM EDT Office Visit [address] [place] [address] Latia Daugherty ANP Type 2 diabetes mellitus with hyperlipidemia (CMS/HCC) ([facility]) (Primary Dx); Constipation, unspecified constipation type; Primary hypertension 02/11/2025 Travel from Last 3 Months Immunizations Immunization Administration Dates Next Due Hep B, adult [...] Tobacco: Never Tobacco Cessation:Counseling Given: Not Answered Alcohol Use Standard Drinks/Week Comments Never 0 (1 standard drink = 0.6 oz pur e alcohol) Depression Answer Date Recorded Patient Health Questionnaire-9 Score 0 07/17/2024 Patient Health Questionnaire-9 Score 0 07/17/2024 Last PHQ-9: Questionnaire Data Not on file 1 09/16/2023 Housing Stability Answer Date Recorded What is your housing situation today? I have jo sommer 01/23/[address] you li ve. Do you have problems with any of the following? None of the above 01/23/2025 Food Insecurity Answer Date Recorded Within the past 12 months, y ou worried that your food would run out before you got money to buy more: Never True 01/23/2025 Within the past 12 months,th e food you bought just didn't last and you didn't have enough money to get more: Never True Transportation Answer Date Recorded In the past 12 months, has l ack of transportation kept you from medical appts, meetings, work or from getting things needed for daily living? No 01/23/2025 Utilities Answer Date Recorded In the past 12 months, has t he electric, gas, oil or water company threatened to shut off services in your home? No 01/23/2025 Depression Answer Date Recorded Patient Health Questionnaire-2 Score 0 07/17/2024 Internet Access Answer Date Recorded Internet Access Q1 No 01/23/2025 Internet Access Q2 I do not want or need it 12/27 Sex and Gender Information Value Date Recorded Sex Assigned at Male 06/27/2022 10:18 AM EDT Legal Sex Male 10:18 AM EDT Gender Identity Male 06/27/2022 10:18 AM EDT Sexual Orientation Straight 06/27/2022 10 :18 AM EDT Last Filed Vital Signs Vital Sign Reading Time Taken Comments Blood Pressure 170/90 03/31/2025 11:19 AM EDT Pulse 86 03/31/2025 11:07 AM EDT Temperature 37.2 C (98.9 F) 03/31/2025 11:07 AM EDT Respiratory Rate 20 03/31/2025 11:07 AM EDT Oxygen Saturation 98% 03/31/2025 11:07 AM EDT Inhaled Oxygen Concentration - - Weight 75.4 kg (166 lb 3.2 oz) 03/31/2025 11:07 AM EDT Height 170.2 cm (5' 7 ) 02/11/2025 9:10 AM EDT Body Mass Index 26.03 02/11/2025 9:10 AM EDT Plan of Treatment Upcoming Encounters Date Type Department Care Team (Late st Contact Info) Description 09/08/2025 10:30 AM EST Office Visit [facility] [address] [place] [address] Bravo, Tania, OD [address] [place] [address] Health Maintenance Due Date Last Done Comments [...] - Risk 60-74 years 1-dose series) 2024 COVID-19 Vaccine (1 - season) 2025 Influenza Vaccine (#1) 2025 9, 05/18/2018, 05/31/2017, Additional history exists Dental X-Ray: Bitewings 05/04/2025 05/03/2024, 10/24 Eye Exam 06/19/2025 06/19/2024, 05/29, 06/19/2024, Additional history exists Depression Screening 07/17/2025 07/17/2024, 07/17/20 24 Diabetes: Foot Exam 07/17/2025 07/17/2024, 07/17/2024, 07/17/2024, Additional history exists Dental Oral Exam 08/06/2025 02/03/2025, 01/2024, 10/24/2022 Dental Prophylaxis 08/06/2025 02/03/2025, 0 05/03/2024, 01/30/2023 Diabetes: Hemoglobin A1C 08/13/2025 025, 08/13/2024, 07/17/2024, Additional history exists Diabetes: Urine Protein Screening 08/13/2025 08/13/2024, 07/17/2024, 06/29/2023, Additional history exists Lipid Panel 08/13/2025 08/13/2024, 06/29, 06/29/2023, Additional history exists Alcohol/Substance Use Screening 10/24/2025 10/24/2024 Disability Screening 01/23/2026 01/23/2025 SDOH Screening 01/23/2026 01/23/2025 Tobacco Screening 03/31/2026 03/31/2025 DTaP/Tdap/Td Vaccines (3 - Td or Tdap) [...] Procedure Name Priority Date/Time Associated Diagnosis Comments XR CERVICAL SPINE 3V Routine 03/31/2025 11:51 AM EDT CBC WITH AUTO DIFFERENTIAL Routine 03/31/2025 11:30 AM EDT Primary hypertension HIGH SENSITIVITY TROPONIN I Routine 02/15/2025 10:33 PM EDT COMPREHENSIVE METABOLIC PANEL Routine 02/15/2025 10:33 PM EDT CBC WITH AUTO DIFFERENTIAL Routine 02/15/2025 10:33 PM EDT CELIAC DISEASE COMPREHENSIVE PANEL Routine 02/11/2025 9:54 AM EDT Generalized abdominal pain SED RATE BY MODIFIED WESTERGREN Routine 02/11/2025 9:54 AM EDT Generalized abdominal pain C-REACTIVE PROTEIN Routine 02/11/2025 9: 54 AM EDT Generalized abdominal pain VITAMIN B12/FOLATE, SERUM PANEL Routine 02/11/2025 9:54 AM EDT Generalized abdominal pain FERRITIN Routine 02/11/2025 9:54 AM EDT Generalized abdominal pain IRON AND TOTAL IRON BINDING CAPACITY Routine 02/11/2025 9:54 AM EDT Generalized abdominal pain BASIC METABOLIC PANEL Routine 02/11/2025 9:54 AM EDT Primary hypertension POCT GLYCATED HEMOGLOBIN, TOTAL Routine 02/11/2025 9:17 AM EDT Type 2 diabetes mellitus with hyperlipidemia (CMS/HCC) (CMS/HCC) POCT GLUCOSE Routine 02/11/2025 9:12 AM EDT Type 2 diabetes mellitus with hyperlipidemia (CMS/HCC) (CMS/HCC) US RENAL BI Routine 02/11/2025 8:[address] CHEST WO CONTRAST Routine 02/10/2025 5:19 PM EDT PROPHYLAXIS - ADULT Routine 02/03/2025 9 :00 AM EDT Dental calculus Dental plaque PERIODIC ORAL EVALUATION - ESTABLISHED PATIENT Routine 02/03/2025 9:00 AM EDT HIV 1/2 ANTIGEN/ANTIBODY, FOURTH GENERATION W/RFL Routine 10/24/2024 9:22 AM EST Weight loss, non-intentional ALBUMIN, RANDOM URINE W/CREATININE Routine 08/13/2024 11:26 AM EST Type 2 diabetes mellitus without complication, without long-term current use of insulin (CMS/HCC) LIPID PANEL, STANDARD Routine 08/13/2024 11:26 AM EST Type 2 diabetes mellitus without complication, without long-term current use of insulin (CMS/HCC) BITEWINGS - 2 RADIOGRAPHIC IMAGES Routine 05/03/2024 9:30 AM EDT HM COLONOSCOPY Routine 04/06/2023 HEPATITIS C AB W/REFL TO HCV RNA, QN, PCR Routine 11/11/2022 8:59 AM EDT Routine screening for STI (sexually transmitted infection) from Last 3 Months or Most Recently Relevant to Health Maintenance Results * XR CERVICAL SPINE 3V (03/31/2025 11:51 AM EDT) Anatomical Region Laterality Modality Abdomen Radiographic Hannah ging 03/31/2025 11:5 1 AM EDT Narrative 03/31/2025 12:23 PM EDT [address] [address] XRay Report Signed Patient: Bobby Velasco MR#: [id number] : 1965 Acct:[id number] Age/Sex: 59 / M ADM Date: 03/31/25 Loc: [facility] Attending Dr: Ashley Frankel MD Ordering Physician: Ashley Frankel MD Date of Service: 03/31/25 Procedure(s): XR cervical spine 3V Accession Number(s): [id number] cc: Ashley Frankel MD EXAMINATION: XR CERVICAL SPINE CLINICAL INFORMATION: DECREASED R.O.M. COMPARISON: CT on July 11, 2018 TECHNIQUE: AP, lateral, AP open-mouth odontoid, and swimmer's view cervical spine x-rays FINDINGS: There is thick osseous bridging and syndesmophyte formation extending from C2 to the lowest visible area, C7. There is ossification of the nuchal ligament dorsal to C4, C5, C6, and C7 spinous process. There is likely ossification of the disc between C2-3, C3-4, C4-5, and possibly C5-6 and C6-7. There is no prevertebral soft tissue edema. XR/XR cervical spine 3V IMPRESSION: Suspected ankylosing spondylitis with thick syndesmophyte across the visible portions of anterior cervical spine and probable intraosseous ossification involving most of the cervical disks. Electronically signed by: Gian Ovalle MD 03/31/2025 12:19 PM EDT Dictated By: Gian Ovalle MD Signed By: <Electronically signed by Gian Ovalle MD in OV> 03/31/25 1219 DD/ 1151 TD/TT: 03/31/25 1200 Junior Brand Manager: Procedure Note Reshma, Image - 03/31/[address] [address] XRay Report Signed Patient: Pierce Velasco#: [id number] : 1965Acct:[id number] Age/Sex: 59 / MADM Date: 03/31/25 Loc: HO.[facility]CL Attending Dr: Ashley Frankel MD Ordering Physician: Ashley Frankel MD Date of Service: 03/31/25 Procedure(s): XR cervical spine 3V Accession Number(s): [id number] cc: Ashley Frankel MD EXAMINATION: XR CERVICAL SPINE CLINICAL INFORMATION: DECREASED R.O.M. COMPARISON: CT on July 11, 2018 TECHNIQUE: AP, lateral, AP open-mouth odontoid, and swimmer's view cervical spine x-rays FINDINGS: There is thick osseous bridging and syndesmophyte formation extending from C2 to the lowest visible area, C7. There is ossification of the nuchal ligament dorsal to C4, C5, C6, and C7 spinous process. There is likely ossification of the disc between C2-3, C3-4, C4-5, and possibly C5-6 and C6-7. There is no prevertebral soft tissue edema. XR/XR cervical spine 3V IMPRESSION: Suspected ankylosing spondylitis with thick syndesmophyte across the visible portions of anterior cervical spine and probable intraosseous ossification involving most of the cervical disks. Electronically signed by: Gian Ovalle MD 03/31/2025 12:19 PM EDT Dictated By: Gian Ovalle MD Signed By: <Electronically signed by Gian Ovalle MD in OV> 03/31/25 1219 DD/ 1151 TD/TT: 03/31/25 1200 Junior Brand Manager: Ashley Frankel MD IMG XR PROCEDURES Final Re sult * (ABNORMAL) CBC auto differential (03/31/2025 11:30 AM EDT) Only the most recent of2 resultswithin the time period is included. White Blood Count 4.0(L) 4.8 - 10.8 X10*3/uL [facility] Red Blood Count 4.41(L) 4.60 - 5.80 X10*6/uL [facility] Hemoglobin 13.4(L) 14.0 - 18.0 g/dl [facility] Hematocrit 40.2(L) 42.0 - 52.0 % [facility] Mean Corpuscular Volume 91.2 80.0 - 98.0 fL [facility] Mean Corpuscular Hemoglobin 30.4 27.0 - 33.0 pg [facility] Mean Corpuscular HGB Conc 33.3 31.0 - 36.0 g/dl [facility] Red Cell Distribution Width 12.9 11.0 - 16.0 % [facility] Platelet Count 252 160 - 400 X10*3/uL [facility] Mean Platelet Volume 10.7 9.4 - 12.4 fL [facility] Neutrophils Percent Auto 56.6 45 - 73 % [facility] Imm Gran Pct Auto 0.2 0.0 - 0.4 % [facility] Lymphocytes Percent Auto 30.4 20 - 40 % [facility] Monocytes Percent Auto 11.1(H) 2 - 11 % [facility] Eosinophils Percent Auto 1.5 0 - 4 % [facility] Basophils Percent Auto 0.2 0 - 2 % [facility] NRBC Pct Auto 0.0 0.0 - 0.2 /100WBC [facility] Neutrophils Absolute Auto 2.3 2.0 - 8.3 x10*3/uL [facility] Imm Gran Abs Auto 0.01 0.00 - 0.03 X10*3/uL [facility] Lymphocytes Absolute Auto 1.2 1.2 - 4.9 X10*3/uL [facility] Monocytes Absolute Auto 0.5 0.1 - 1.2 X10*3/uL [facility] Eosinophils Absolute Auto 0.1 0.0 - 0.4 X10*3/uL [facility] Basophils Absolute Auto 0.0 0.0 - 0.2 X10*3/uL [facility] NRBC Abs Auto 0.000 0.0 - 0.012 X10*3/uL [facility] Blood Venous blood specimen / Unknown 03/31/2025 11:30 AM EDT 03/31/2025 1:17 PM EDT Ashley Frankel MD LAB BLOOD ORDERABLES Final Result Performing Organization Address [facility] Co de Phone Number [facility] [address] [place] [phone] * High Sensitivity Troponin I (02/15/2025 10:33 PM EDT) [facility] TROPONIN I HIGH SENSITIVITY 7.5 <3.5 - 35.0 ng/L [facility] Comment:The Schmidt high sens itivity Troponin-I results should beused in conjunction with other diagnostic information suchas ECG, clinical observations and information, and patientsymptoms to aid in the diagnosis of IL. 02/15/2025 10:3 3 PM EDT 02/15/2025 10:37 PM EDT us Generic External Data Provider LAB BLOOD ORDERAB LES Final Result Performing Organization Address [facility] Co de Phone Number [facility] [address] [place] [phone] * (ABNORMAL) Comprehensive Metabolic Panel (02/15/2025 10:33 PM EDT) [facility] Sodium 140 135 - 145 mmol/L [facility] Potassium 3.6 3.3 - 5.1 mmol/L [facility] Chloride 107 96 - 108 mmol/L [facility] Carbon Dioxide 25 22 - 29 mmol/L [facility] Anion Gap 12 12 - 20 [facility] Urea Nitrogen (BUN) 16 9 - 16 mg/dL [facility] Creatinine, Serum 1.09 0.5 - 1.4 mg/dL [facility] Creatinine Clr Calc Pharmacy 67.3 [facility] Comment:eGFR (calculated fro m the MDRD study equation) and eCrCl(calculated from the Cockcroft-Gault equation) are based ondifferent parameters and may not yield comparable results.If eCrCl result is absurd, please check patient'sheight/weight. Estimated Glomerular Filt Rate >60 [facility] Comment:Chronic Kidney Disea se: Estimated GFR < 60 mL/min/1.97o1Lbkckq Kidney Disease: Estimated GFR < 15 mL/min/1.73m2 Glucose 104 60 - 115 mg/dL [facility] Calcium 9.1 8.4 - 10.2 mg/dL [facility] Bilirubin, Total 1.2(H) 0.0 - 1.0 mg/dL [facility] Aspartate Amino Transferase 27 5 - 37 U/L [facility] Alanine Aminotransferase 15 0 - 40 U/L [facility] Total Protein 6.8 6.5 - 8.0 g/dL [facility] Albumin Level 4.4 3.5 - 5.0 g/dL [facility] Alkaline Phosphatase 92 39 - 117 U/L [facility] 02/15/2025 10:3 3 PM EDT 02/15/2025 10:37 PM EDT us Generic External Data Provider LAB BLOOD ORDERAB LES Final Result [facility] [address], [place] [phone] * Vitamin B12/Folate, Serum Panel (02/11/2025 9:54 AM EDT) Vitamin B12 286 200 - 900 pg/mL [facility] Comment:NORMAL 200-900 PG/ML INDETERMINATE 160-199 PG/ML DEFICIENT < 160 PG/ML Folate 7.9 > or = 4.0 ng/mL [facility] Comment:Reference Values:> o r = 4.0 ng/mL< 4.0 ng/mL suggests folate deficiency Methotrexate, aminopterin and folinic acid(leucovorin) are chemotherapeutic agents whose molecularstructures are similar to folate; therefore, the Architectfolate assay cannot be used for patients using these drugs. Blood Venous blood specimen / Unknown 02/11/2025 9:54 AM EDT 02/11/2025 11:45 AM EDT Bryan Coleman MD LAB BLOOD ORDERABLES Final Resul t Performing Organization Address [facility] de Phone Number [facility] [address] [place] [phone] * Iron And Total Iron Binding Capacity (02/11/2025 9:54 AM EDT) Iron 72 45 - 160 mcg/dL [facility] Total Iron Binding Capacity 284 228 - 428 mcg/dL [facility] Percent Iron Saturation 25 15 - 50 % [facility] Unsaturated Iron Binding 212 ug/dL [facility] Blood Venous blood specimen / Unknown 02/11/2025 9:54 AM EDT 02/11/2025 11:45 AM EDT us Bryan Coleman MD LAB BLOOD ORDERABLES Final Resul t Performing Organization Address [facility] de Phone Number [facility] [address] [place] [phone] * (ABNORMAL) Celiac Disease Comprehensive Panel (02/11/2025 9:54 AM EDT) Immunoglobulin A, Qn, Serum 324(A) 47 - 310 mg/dL [facility] Comment:THIS TEST WAS PERFOR MED AT:[facility] [place] [phone] MARTINS MD Transglutaminase IgA <1.0 U/mL [facility] Comment:Value Interpretation ----- <15.0 Antibody not detected> or = 15.0 Antibody detected Interpretation SEE NOTE [facility] Comment:No serological evide nce of celiac disease.Total serum IgA is elevated. Consider mucosalinflammatory conditions or underlying gammopathy. Blood Venous blood specimen / Unknown 02/11/2025 9:54 AM EDT 02/11/2025 11:45 AM EDT us Bryan Coleman MD LAB BLOOD ORDERABLES Final Resul t [facility] [address] [place] [phone] * Sed Rate by Modified Westergren (02/11/2025 9:54 AM EDT) Erythrocyte Sedimentation Rate 3 0 - 15 MM/HR [facility] Comment:Patients with polycy themia and many hemoglobin abnormalitiesmay have depressed sed rates whereas patients with anemiamay have elevated sed rates. Blood Venous blood specimen / Unknown 02/11/2025 9:54 AM EDT 02/11/2025 11:45 AM EDT us Bryan Coleman MD LAB BLOOD ORDERABLES Final Resul t Performing Organization Address [facility]/ZIP Co de Phone Number [facility] [address] [place] [phone] * C-reactive Protein (02/11/2025 9:54 AM EDT) C Reactive Protein <0.04 < or = 0.50 mg/dL [facility] Blood Venous blood specimen / Unknown 02/11/2025 9:54 AM EDT 02/11/2025 11:45 AM EDT us Bryan Coleman MD LAB BLOOD ORDERABLES Final Resul t Performing Organization Address City/[facility]/ZIP Co de Phone Number [facility] [address] [place] [phone] * Ferritin (02/11/2025 9:54 AM EDT) Ferritin 52 20 - 250 ng/mL [facility] Blood Venous blood specimen / Unknown 02/11/2025 9:54 AM EDT 02/11/2025 11:45 AM EDT Bryan Coleman MD LAB BLOOD ORDERABLES Final Resul t Performing Organization Address [facility]/ZIP Co de Phone Number [facility] [address] [place] [phone] * (ABNORMAL) Basic Metabolic Panel (02/11/2025 9:54 AM EDT) Pathologist [facility] Sodium 143 135 - 145 mmol/L [facility] Potassium 3.8 3.3 - 5.1 mmol/L [facility] Chloride 109(H) 96 - 108 mmol/L [facility] Carbon Dioxide 27 22 - 29 mmol/L [facility] Anion Gap 11(L) 12 - 20 [facility] Urea Nitrogen (BUN) 18(H) 9 - 16 mg/dL [facility] Creatinine, Serum 0.93 0.5 - 1.4 mg/dL [facility] Estimated Glomerular Filt Rate >60 [facility] Comment:Chronic Kidney Disea se: Estimated GFR < 60 mL/min/1.03d8Rgbngf Kidney Disease: Estimated GFR < 15 mL/min/1.73m2 Glucose 130(H) 60 - 115 mg/dL [facility] Calcium 9.2 8.4 - 10.2 mg/dL [facility] Blood Venous blood specimen / Unknown 02/11/2025 9:54 AM EDT 02/11/2025 11:45 AM EDT Ashley Frankel MD LAB BLOOD ORDERABLES Final Result Performing Organization Address [facility]/ZIP Co de Phone Number [facility] [address] [place] [phone] * (ABNORMAL) POCT HGB A1C (02/11/2025 9:17 AM EDT) Hemoglobin A1C 6.1(A) 4.0 - 6.0 % QC Media Lot # [id number] Lot# Expiration Date , Blood 02/11/2025 9:17 AM EDT [facility] POINT OF CARE TEST ENTER/EDIT OR DERABLES Final Result * POCT Glucose (02/11/2025 9:12 AM EDT) Glucose Blood, POC 137 60 - 200 mg/dL QC Media Lot # [id number] Lot# Expiration Date Blood Capillary blood specimen / Unknown 02/11/2025 9:12 AM EDT [facility] ANP POINT OF CARE TEST ENTER/EDIT OR DERABLES Final Result * US RENAL BI (02/11/2025 8:46 AM EDT) Anatomical Region Laterality Modality Abdomen Ultrasound 02/11/2025 8:46 AM EDT Narrative 02/11/2025 8:47 AM EDT [place] [address] Ultrasound Report Signed Patient: Bobby Velasco MR#: [id number] : 1965 Acct:[id number] Age/Sex: 59 / M ADM Date: 02/10/25 Loc: HO.CT Attending Dr: Raheel Gee MD Ordering Physician: Kishore Dorsey MD Date of Service: 02/10/25 Procedure(s): US renal BI Accession Number(s): [id number] cc: Kishore Dorsey MD; Ashley Frankel MD CLINICAL HISTORY: N20.0 - Calculus of kidney US renal with Color Doppler Comparison: None Findings: Right kidney normal size and echotexture, 11.6 cm length. No hydronephrosis calculus or mass. Normal color flow. Left kidney normal size and echotexture, 11.1 cm length. No hydronephrosis calculus or mass. Normal color flow. Probable benign renal cortical cysts mid to lower pole measuring 1.0 x 0.9 x 0.9 cm and 1.4 x 1.1 x 1.3 cm. Impression: 1. No nephrolithiasis or hydronephrosis. Kidneys are normal size and position with normal cortical width and echotexture. Probable incidental renal cortical cysts mid to lower pole left kidney. Correlate with previous ultrasound and CT exams. Otherwise, six-month follow-up ultrasound recommended. This document has been electronically signed by: Henry Lenz MD on 02/11/2025 08:46:01 Dictated By: Henry Lenz MD Signed By: <Electronically signed by Henry Lenz MD in OV> 02/11/25845 DD/ 5 TD/TT: 02/11/25845 Junior Brand Manager: Procedure Note Donotuseinterpreter, Image - 02/11/2025 [place] [address] Ultrasound Report Signed Patient: Pierce Velasco#: [id number] : 1965Acct:[id number] Age/Sex: 59 / MADM Date: 02/10/25 Loc: HO.CT Attending Dr: Raheel Gee MD Ordering Physician: Kishore Dorsey MD Date of Service: 02/10/25 Procedure(s): US renal BI Accession Number(s): [id number] cc: Kishore Dorsey MD; Ashley Frankel MD CLINICAL HISTORY: N20.0 - Calculus of kidney US renal with Color Doppler Comparison: None Findings: Right kidney normal size and echotexture, 11.6 cm length. No hydronephrosis calculus or mass. Normal color flow. Left kidney normal size and echotexture, 11.1 cm length. No hydronephrosis calculus or mass. Normal color flow. Probable benign renal cortical cysts mid to lower pole measuring 1.0 x 0.9 x 0.9 cm and 1.4 x 1.1 x 1.3 cm. Impression: 1. No nephrolithiasis or hydronephrosis. Kidneys are normal size and position with normal cortical width and echotexture. Probable incidental renal cortical cysts mid to lower pole left kidney. Correlate with previous ultrasound and CT exams. Otherwise, six-month follow-up ultrasound recommended. This document has been electronically signed by: Henry Lenz MD on 02/11/2025 08:46:01 Dictated By: Henry Lenz MD Signed By: <Electronically signed by Henry Lenz MD in OV> 02/11/25845 DD/ 5 TD/TT: 02/11/25845 Junior Brand Manager: us [facility] External Provider IMG US PROCEDURES Final Result * CT Chest w/o Contrast (02/10/2025 5:19 PM EDT) Anatomical Region Laterality Modality Body, Chest Computed Tomogra phy 02/10/2025 5:19 PM EDT Narrative 02/10/2025 5:20 PM EDT [place] [address] CT Scan Report Signed Patient: Bobby Velasco MR#: [id number] : 1965 Acct:[id number] Age/Sex: 59 / M ADM Date: 02/10/25 Loc: HO.CT Attending Dr: Raheel Gee MD Ordering Physician: Raheel Gee MD Date of Service: 02/10/25 Procedure(s): CT chest wo IV con Accession Number(s): [id number] cc: Ashley Frankel MD; Raheel Gee MD Report Number: [id number]: Total DLP = 255.00 mGy-cm CLINICAL HISTORY: R91.8 - Other nonspecific abnormal finding of lung field CT chest without contrast Comparison: None Findings: The heart is normal size. Moderate Atherosclerosis calcification of the coronary arteries The visualized thyroid and mediastinum are unremarkable. The lungs are clear. There are calcified granulomas. 9.7 mm nodular density of the left lower lobe. There are small para fissural nodules of the right middle lobe. The upper abdomen is unremarkable. Bilateral gynecomastia. The bones are intact. IMPRESSION: 9.7 mm nodular density of the left lower lobe. CT chest follow-up in 3 months is recommended. Fleischner Society 2017 Guidelines for incidentally detected indeterminate nodules in persons 35 years of age or older. Single Solid Nodules: 5 mm or smaller nodules need no follow-up in low risk, and [address] follow-up is optional in high risk patients. 6-8 mm nodules have optional [address] follow-up in low risk, and 6-[address] follow-up followed by 18-[address] follow-up if no change in high risk patients. 9 mm or larger nodules should consider CT, PET/CT, or biopsy at 3 months regardless of patient risk. Multiple Solid Nodules: 5 mm or smaller nodules need no follow-up in low risk, and [address] follow-up is optional in high risk patients. 6-8 mm nodules need 3-[address] follow-up followed by an optional 18-[address] follow-up regardless of patient risk. 9 mm or larger nodules should consider 3-[address] follow-up. For low risk 18-24 month follow-up is optional, whereas for high risk it is needed. Single Ground Glass Nodules: 5 mm or smaller nodules need no followup 6 mm and larger nodules need CT at 6-12 months to confirm persistence, then CT every 2 years until 5 years Single Subsolid Nodules: 5 mm or smaller nodules need no followup 6 mm and larger nodules need CT at 3-6 months to confirm persistence. If no change and solid component /T/lt;6 mm, then CT every year until 5 years Multiple Ground Glass or Subsolid Nodules: 5 mm or smaller nodules need CT at 3-6 months. If stable, optional CT at 2 and 4 years. 6 mm or larger nodules need CT at 3-6 months. Subsequent management based on most suspicious nodule This document has been electronically signed by: Alpesh Reyes MD on 02/10/2025 17:19:25 Dictated By: Alpesh Reyes MD Signed By: <Electronically signed by Alpesh Reyes MD in OV> 02/10/25 172 DD/ 18 TD/TT: 02/10/251718 Junior Brand Manager: Procedure Note Donotuseinterpreter, Image - 02/10/[address] [address] [address] Scan Report Signed Patient: Pierce Velasco#: [id number] : 1965Acct:[id number] Age/Sex: 59 / MADM Date: 02/10/25 Loc: HO.CT Attending Dr: Raheel Gee MD Ordering Physician: Raheel Gee MD Date of Service: 02/10/25 Procedure(s): CT chest wo IV con Accession Number(s): [id number] cc: Ashley Frankel MD; Raheel Gee MD Report Number: [id number]: Total DLP = 255.00 mGy-cm CLINICAL HISTORY: R91.8 - Other nonspecific abnormal finding of lung field CT chest without contrast Comparison: None Findings: The heart is normal size. Moderate Atherosclerosis calcification of the coronary arteries The visualized thyroid and mediastinum are unremarkable. The lungs are clear. There are calcified granulomas. 9.7 mm nodular density of the left lower lobe. There are small para fissural nodules of the right middle lobe. The upper abdomen is unremarkable. Bilateral gynecomastia. The bones are intact. IMPRESSION: 9.7 mm nodular density of the left lower lobe. CT chest follow-up in 3 months is recommended. Fleischner Society 2017 Guidelines for incidentally detected indeterminate nodules in persons 35 years of age or older. Single Solid Nodules: 5 mm or smaller nodules need no follow-up in low risk, and [address] follow-up is optional in high risk patients. 6-8 mm nodules have optional [address] follow-up in low risk, and 6-[address] follow-up followed by 18-[address] follow-up if no change in high risk patients. 9 mm or larger nodules should consider CT, PET/CT, or biopsy at 3 months regardless of patient risk. Multiple Solid Nodules: 5 mm or smaller nodules need no follow-up in low risk, and [address] follow-up is optional in high risk patients. 6-8 mm nodules need 3-[address] follow-up followed by an optional 18-[address] follow-up regardless of patient risk. 9 mm or larger nodules should consider 3-[address] follow-up. For low risk 18-24 month follow-up is optional, whereas for high risk it isneeded. Single Ground Glass Nodules: 5 mm or smaller nodules need no followup 6 mm and larger nodules need CT at 6-12 months to confirm persistence, then CT every 2 years until 5 years Single Subsolid Nodules: 5 mm or smaller nodules need no followup 6 mm and larger nodules need CT at 3-6 months to confirm persistence. If no change and solid component /T/lt;6 mm, then CT every year until 5 years Multiple Ground Glass or Subsolid Nodules: 5 mm or smaller nodules need CT at 3-6 months. If stable, optional CT at 2 and 4 years. 6 mm or larger nodules need CT at 3-6 months. Subsequent management based on most suspicious nodule This document has been electronically signed by: Alpesh Reyes MD on 02/10/2025 17:19:25 Dictated By: Alpesh Reyes MD Signed By: <Electronically signed by Alpesh Reyes MD in OV> 02/10/25 1720 DD/ 171 TD/TT: 02/10/251718 Junior Brand Manager: [employer] External Provider IMG CT PROCEDURES Final Result * HIV-1/2 Antigen and Antibodies, Fourth Generation, [...] below the limit ofdetection of this assay.The [employer] HIV Ag/Ab Combo assay result andsupplemental assay results should be interpreted inconjunction with the patient's clinical presentation,history and other laboratory results. If the results areinconsistent with clinical evidence, additional testing issuggested to confirm the result. Blood Venous blood specimen / Unknown 10/24/2024 9:22 AM EST 10/24/2024 11:48 AM EST Ashley Frankel MD LAB BLOOD ORDERABLES Final Result Performing Organization Address City/[facility]/ZIP Co de Phone Number [facility] [address] [place] [phone] * Albumin, Random Urine W/Creatinine (08/13/2024 11:26 AM EST) Creatinine, Urine 73.67 mg/dL [facility] Microalbumin Urine 13.0 mg/L [facility] Microalbum Creatinine Ratio Ur 17.6 <30 ug/mg cr [facility] Comment:Albumin/Creatinine R atio Reference Ranges: Normal: < 30 ug/mg creatinine Microalbuminuria: 30 - 300 ug/mg creatinineClinical Albuminuria: > 300 ug/mg creatinine Urine 08/13/2024 11:2 6 AM EST 08/13/2024 1:00 PM EST Ashley Frankel MD LAB URINE ORDERABLES Final Result Performing Organization Address City/[facility] Co de Phone Number [facility] [address] [place] [phone] * (ABNORMAL) Lipid Panel, Standard (08/13/2024 11:26 AM EST) Triglycerides 86 <150 mg/dL [facility] Comment:Desirable Triglyceri de: less than 150 mg/dLBorderline High Triglyceride 150-199 mg/dLHigh Triglyceride: 200-499 mg/dLVery High Triglyceride: greater than or equal to 5OO mg/dL Cholesterol 146 <200 mg/dL [facility] Comment:Desirable Cholestero l: less than 200 mg/dLBorderline High Cholesterol: 200-239 mg/dLHigh Cholesterol: greater than 239 mg/dL LDL Cholesterol Calculated 96 <100 mg/dL [facility] Comment:Desirable LDL: less than 100 mg/dLNear Optimal/Above Optimal LDL: 110- 129 mg/dLBorderline High LDL: 130-159 mg/dLHigh LDL: 160-189 mg/dLVery High LDL: greater than or equal to 190 mg/dL HDL Cholesterol 33(L) >40 mg/dL [facility] Comment:Desirable HDL: great er than 40 mg/dL Note: This HDL assay may give artificially low results in patients with liver disease. Blood Venous blood specimen / Unknown 08/13/2024 11:26 AM EST 08/13/2024 12:59 PM EST Ashley Frankel MD LAB BLOOD ORDERABLES Final Result Performing Organization Address City/State/[facility] Co de Phone Number [facility] [address] [place] [phone] * Hm Colonoscopy (04/06/2023) Colonoscopy Normal Normal Result [facility] Moncho Bishpo MD HEALTH MAINTENANCE Final Result * Hepatitis C Antibody with Reflex to HCV, RNA, Quantitative, Real-Time PCR (11/11/2022 8:59 AM EDT) Hepatitis C Antibody NON-REACT KELSY NON-REACT KELSY [facility] [place] WEEZEVENT[facility] Index 0.64 <1.00 [facility] Comment: HCV antibody was non-reactive. There is no laboratory evidence of HCV infection. In most cases, no further action is required. However, if recent HCV exposure is suspected, a test for HCV RNA (test code 53070) is suggested. For additional information please refer to http://education.[employer] [place]/faq/LHI98a9 (This link is being provided for informational/ educational purposes only.) Blood Venous blood specimen / Unknown 11/11/2022 8:59 AM EDT 11/11/2022 8:59 AM EDT Narrative [facility] - 11/11/2022 9:36 PM EDT FASTING:YES FASTING: YES Ashley Frankel MD LAB BLOOD ORDERABLES Final Result [facility] [address] [facility], [facility], [place] [address] [facility] [address] [place] [phone] from Last 3 Months or Most Recently Relevant to Health Maintenance Insurance [facility] [address] [facility] Care Teams Systems Designer Relationship Specialty Start Date End Date Grimes, MD Ashley [address] [place] [phone] PCP - General Family Medicine 08/28/18 Viktor November [address] [place] [address] Gastroenterology 07/17/24 Kishore Dorsey MD [address] [place] [address] Urology 07/17/24 Raheel Gee [address] [place], [place] [address] Pulmonary Disease 07/17/24 Riya Fulton [address] [facility] [address] [place] [address] Cardiology 07/17/24 Sergio Hackett [address] Caraballo [address] [place] [phone] Orthopaedic Surgery 07/17/24 Raheel Slater [address] [address] Podiatry 01/22/25 De. [place] Psychiatry 10/10/24
== END 2025-05-13 15:45 | disposition home or self-care (01) ==
LOC: HO.HPS 15:18
PROVIDERS: PCP Family Medicine; Visit Provider Hospitalist
DX: J33.9 Nasal polyp, unspecified (principal); R91.8 Other nonspecific abnormal finding of lung field; J45.40 Moderate persistent asthma, uncomplicated
CPT/HCPCS: 99214; G2211

== ENCOUNTER → 2025-05-13 15:17 | Outpatient (BNVA) | payer OTHER, SELFPAY | PROVIDERS: PCP Family Medicine; Visit Provider Hospitalist | DX: J45.40 Moderate persistent asthma, uncomplicated (principal); J31.0 Chronic rhinitis; R91.8 Other nonspecific abnormal finding of lung field | CPT/HCPCS: 99212 ==

== ENCOUNTER → 2025-05-27 07:50 | Outpatient (BNV) | payer OTHER, SELFPAY | PROVIDERS: PCP Family Medicine; Visit Provider Radiology Diagnostic Radiology | DX: K91.1 Postgastric surgery syndromes (principal) | CPT/HCPCS: 78264 ==

== ENCOUNTER → 2025-05-27 08:09 | Outpatient (REF) | payer OTHER, SELFPAY ==
--- NOTE | ~2025-05-27 | NM_ITS ---
EXAMINATION: NE RADIONUCLIDE SOLID FOOD GASTRIC EMPTYING 4-HOUR STUDY CLINICAL INFORMATION: R68.81 - Early satiety COMPARISON: There are no prior studies available for comparison. TECHNIQUE: A standard meal consisting of 4 oz of Egg Beaters brand tagged with 1 mCi Tc-99m Sulfur Colloid, 4 oz water and 2 slices of toast with jelly was administered orally to the patient. Images were obtained using a dual head gamma camera in the anterior and posterior projections over of the stomach immediately post ingestion and at hourly intervals up to 4 hours post ingestion. The anterior and posterior counts at each time interval were averaged using the geometric mean and expressed as percentage of the immediate post ingestion counts. FINDINGS: There is visualization of activity in the stomach immediately post ingestion. As the study progresses, there is clearance of activity from the stomach and visualization of progressively increasing small bowel activity. By the end of the study, there is almost no retention noted in the stomach. Retention in the stomach at each time interval was: 1 hour 33% (normal 37%-90%) 2 hours 2% (normal 30%-60%) 3 hours 1% NM/NE gastric emptying study IMPRESSION: Rapid gastric emptying. Gastric emptying study grading per JNMT Consensus Recommendations in 2008 (https://tech.snmjournals.org/content/36/1/44) Grade 1 (mild retention): 11-20% at 4h Grade 2 (moderate retention): 21-35% at 4h Grade 3 (severe retention): 36-50% at 4h Grade 4 (very severe retention): >50% retention at 4h Electronically signed by: George Oquendo MD 05/27/2025 11:26 AM EDT
--- OUTSIDE RECORDS SUMMARY | 2025-05-27 08:25 | XMS_ITS | Clinical Summary ---
Author Organization [employer] Address [address] [facility] 7t [place] [address] Care Team Providers Care Photograph Inspector Name Role Phone Ashley Frankel MD Primary Care Provider [phone] November Unavailable Kishore Dorsey MD Unavailable [phone] Raheel Gee Unavailable [phone] Riya Fulton Unavailable Sergio Hackett Unavailable [...] complication, without long-term current use of insulin (HCC) 1 each by Other route 2 times daily. Use bid, dx type 2 diabetes 60 each 11 4 Active glucose blood (FREESTYLE LITE) test stripIndications :Type 2 diabetes mellitus without complication, without long-term current use of insulin (HCC) USE TO TEST BLOOD SUGAR TWICE A [...] migh t be different from the original. [facility] Superintendent System Operation: Kamila, member services number [phone], provider services line, , option 4 Coagulation Operator Agency: refused services Problem Noted Date [...] Date PSA 0.69 08/13/2024 TSH 1.31 10/24/2024 [id number] NON-REACTIVE 02/13/2020 -continues to loose weight, has [...] Date PSA 0.69 08/13/2024 TSH 1.31 10/24/2024 [id number] NON-REACTIVE 02/13/2020 -continues to loose weight, has [...] Removal 2021. New found mass on left synagogue. - Referred to Plastic Surgery 07/16/24 Assessment & Plan (07/17/2024 10:23 AM EST): Removal 2021. New found mass on left synagogue. - Referred to Plastic Surgery 07/16/24 Cardiac [...] by [facility] -dental home is [facility] -health care proxy paperwork given 11/13/2023, given again 07/17/24 Assessment & Plan (07/17/2024 10:32 AM EST): -next physical exam due after 07/17/25 -eye care facilitated by [facility] -dental home is [facility] -health care proxy paperwork given 11/13/2023, given again 07/17/24 Assessment & Plan (11/13/2023 10:07 AM EDT): -next physical exam due after 04/27/2024 -eye care facilitated by [facility] -dental home is [facility] -health care proxy paperwork given 11/13/2023 Assessment & Plan (04/27/2023 9:45 AM EDT): -next physical exam due after 04/27/2024. -eye care facilitated by [facility], last visit 01/16/2023 -dental home is [facility] Class 1 obesity 02/24/2023 Erectile [...] the strong evidence that these meds prevent PR/CVA. Continue atorvastatin 80qhs. Encouraged to take. Anxiety [...] CT May 2021 -CT 01/24/24 ordered by stem threshing machine operator Dr. Raheel Gee MD, redemonstration of innumerable mixed calcified and noncalcified pulmonary nodules, not significantly changed compared to most recent CT chest from 08/09/2022, largest measuring 6 mm. -02/12/25ordered by stem threshing machine operator Dr. Raheel Gee MD IMPRESSION: 9.7 mm [...] getting tx for his neck. -Followed by [facility]. -Saw Dr. Evin [...] getting tx for his neck. -Followed by [facility]. -Saw Dr. Evin Bhat at [facility] 02/2021 -referred to orthopedic on 11/13/2023 - [...] getting tx for his neck. -Followed by [facility]. -Saw Dr. Evin Bhat at [facility] 02/2021 -referred to orthopedic on 11/13/2023 - [...] getting tx for his neck. -Followed by [facility]. -Saw Dr. Evin Bhat at [facility] 02/2021 -referred to orthopedic on 11/13/2023 Assessment [...] getting tx for his neck. Followed by [facility]. Saw Dr. Evin Bhat at [facility] 02/2021 Assessment & Plan (04/27/2023 9:22 AM [...] getting tx for his neck. Followed by [facility]. Saw Dr. Evin Bhat at [facility] 02/2021 Assessment & Plan (11/07/2022 11:31 AM [...] getting tx for his neck. Followed by [facility]. Saw Dr. Evin Bhat at [facility] 02/2021 Mild intermittent asthma 10/14/2021 Overview (05/14/2025): -Followed by Dr. Raheel Gee at [facility] Pulmon[facility]. Note from 05/14/25 reviewed -Well controlled on albuterol and cetrizine [...] goal -Continue lifestyle modifications Patient reported at [facility] visit 02/14/25 self-discontinuation of amlodipine 10mg and chlorthalidone 25mg months ago; were formally discontinued at this visit Patient denied having started recent addition of spironolactone; CD[facility] formally discontinued and restarted amlodipine 5mg once daily and to continue lisinopril 40mg -Continue current medications - Referred to [facility] with our YUE Cronin 07/17/24 however many no shows until 02/14/25 -BP elevated 158/88 10/24/24, and again at visit on 01/23/25 198/98 -referred back to [facility] Program with YUE escudero PharmD 10/24/24 -advised to take lisinopril at night [...] next couple days. -Seen on 02/14/25 by [facility], had been off medications for months and was restarted on amlodipine 5mg and continued lisinopril 40mg. -Elevated BP 03/31/25, will increase amlodipine to 10mg Assessment & Plan (03/31/2025 11:39 AM EDT): -Blood pressure is not at goal -Continue lifestyle modifications Patient reported at [facility] visit 02/14/25 self-discontinuation of amlodipine 10mg and chlorthalidone 25mg months ago; were formally discontinued at this visit Patient denied having started recent addition of spironolactone; [facility] and restarted amlod[facility]ine 5mg once daily and to continue lisinopril 40mg -Continue current medications - Referred to [facility] Program with YUE escudero PharmD 07/17/24 however many no shows until 02/14/25 -BP elevated 158/88 10/24/24, and again at visit on 01/23/25 198/98 -referred back to [facility] Therapy [facility]agment Program with YUE escudero PharmD 10/24/24 -advised to take lisinopril at night [...] next couple days. -Seen on 02/14/25 by [facility], had been off medications for months and [...] right ureteroscopy laser lithotripsy stent insertion, 6 Spanish by [address] Mayda Rodriguez. [...] Type Department Care Team Description 05/07/[address] [address] Dominga Silva, PharmD 04/07/[address] [address] Ashley Frankel MD Results 03/31/2025 11:15 AM EDT Office Visit [address] [address] Ashley Frankel MD Primary hypertension (Primary Dx); DISH (diffuse idiopathic skeletal hyperostosis); Decreased range of motion of neck; Weight loss, non-intentional; Anemia, unspecified type; Renal cysts, acquired, bilateral; Benign prostatic hyperplasia with urinary obstruction; Hyperpigmented skin lesion; Constipation, unspecified constipation type 03/31/2025 Orders Only [address] [address] Ashley Frankel MD DISH (diffuse idiopathic skeletal hyperostosis) 03/31/2025 Travel 03/28/[address] [address] Ashley Frankel MD chartprep 03/21/2025 Patient Outreach [address] [address] Ashley Frankel MD Pre-visit Planning ([facility] screening was completed on 01/23/2025) 03/07/[address] [address] Ashley Frankel MD Appointment Request from Last 3 Months Immunizations Immunization Administration [...] Care Team (Late st Contact Info) Description 08/04/2025 9:30 AM EST Office Visit [facility] ADULT DENTAL [address] [place] [address] Jackie Peacock 09/08/2025 10:30 AM EST Office Visit [facility] OPTOMETRY [address] [place] [address] BravoPradeepn, OD [address] [place] [address] Health Maintenance Due Date Last Done Comments [...] 60-74 years 1-dose series) 2024 COVID-19 Vaccine ( - season) 2025 Influenza Vaccine (#1) 2025 [...] Routine 03/31/2025 11:30 AM EDT Primary hypertension POCT GLYCATED HEMOGLOBIN, TOTAL Routine 02/11/2025 9:17 AM EDT Type 2 diabetes mellitus with hyperlipidemia (CMS/HCC) ([facility]) PROPHYLAXIS - ADULT Routine 02/03/2025 9 :00 AM EDT Dental calculus Dental plaque PERIODIC ORAL EVALUATION - ESTABLISHED PATIENT Routine 02/03/2025 9:00 AM EDT HIV 1/2 ANTIGEN/ANTIBODY, FOURTH GENERATION W/RFL Routine 10/24/2024 9:22 AM EST Weight loss, non-intentional ALBUMIN, RANDOM URINE W/CREATININE Routine 08/13/2024 11:26 AM EST Type 2 diabetes mellitus without complication, without long-term current use of insulin (CMS/[facility]) LIPID PANEL, STANDARD Routine 08/13/2024 11:26 AM [...] AM EDT Narrative 03/31/2025 12:23 PM EDT [address] [address] XRay Report Signed Patient: Bobby Velasco MR#: [id number] : 1965 Acct:[id number] Age/Sex: 59 / M ADM Date: 03/31/25 Loc: [facility] Attending Dr: Ashley Frankel MD Ordering Physician: Ashley Frankel MD Date of Service: 03/31/25 Procedure(s): XR cervical spine 3V Accession Number(s): [id number] cc: Ashley Frankel MD EXAMINATION: XR CERVICAL [...] 03/31/25 1219 DD/ 1151 TD/TT: 03/31/25 1200 Elevator Mechanic: Procedure Note Donotuseinterpreter, Image - 03/31/[address] [address] XRay Report Signed Patient: Bobby VelascoMR#: [id number] : 1965Acct:[id number] Age/Sex: 59 / MADM Date: 03/31/25 Loc: [facility] Attending Dr: Ashley Frankel MD Ordering Physician: Ashley Frankel MD Date of Service: 03/31/25 Procedure(s): XR cervical spine 3V Accession Number(s): [id number] cc: Ashley Frankel MD EXAMINATION: XR CERVICAL [...] Gian Ovalle MD 03/31/2025 12:19 PM EDT RP Dictated By: Gian Ovalle MD Signed By: <Electronically signed by Gian Ovalle MD in OV> 03/31/25 1219 DD/ 1151 TD/TT: 03/31/25 1200 Elevator Mechanic: Ashley Frankel MD IMG XR PROCEDURES Final Re sult * (ABNORMAL) CBC auto differential (03/31/2025 11:30 AM EDT) White Blood Count 4.0(L) 4.8 - 10.8 X10*3/uL [facility] Red Blood Count 4.41(L) 4.60 - 5.80 X10*6/uL [facility] Hemoglobin 13.4(L) 14.0 - 18.0 g/dl [facility] Hematocrit 40.2(L) 42.0 - 52.0 % [facility] Mean Corpuscular Volume 91.2 80.0 - 98.0 fL [facility] Mean Corpuscular Hemoglobin 30.4 27.0 - 33.0 pg [facility] Mean Corpuscular HGB Conc 33.3 31.0 - 36.0 g/dl [facility] Red Cell Distribution Width 12.9 11.0 - 16.0 % [facility] Platelet Count 252 160 - 400 X10*3/uL [facility] Mean Platelet Volume 10.7 9.4 - 12.4 fL [facility] Neutrophils Percent Auto 56.6 45 - 73 % [facility] Imm Gran Pct Auto 0.2 0.0 - 0.4 % [facility] Lymphocytes Percent Auto 30.4 20 - 40 % [facility] Monocytes Percent Auto 11.1(H) 2 - 11 % [facility] Eosinophils Percent Auto 1.5 0 - 4 % [facility] Basophils Percent Auto 0.2 0 - 2 % [facility] NRBC Pct Auto 0.0 0.0 - 0.2 /100WBC [facility] Neutrophils Absolute Auto 2.3 2.0 - 8.3 x10*3/uL [facility] Imm Gran Abs Auto 0.01 0.00 - 0.03 X10*3/uL [facility] Lymphocytes Absolute Auto 1.2 1.2 - 4.9 X10*3/uL [facility] Monocytes Absolute Auto 0.5 0.1 - 1.2 X10*3/uL [facility] Eosinophils Absolute Auto 0.1 0.0 - 0.4 X10*3/uL [facility] Basophils Absolute Auto 0.0 0.0 - 0.2 X10*3/uL [facility] NRBC Abs Auto 0.000 0.0 - 0.012 X10*3/uL [facility] Blood Venous blood specimen / Unknown 03/31/2025 11:30 AM EDT 03/31/2025 1:17 PM EDT us Ashley Frankel MD LAB BLOOD ORDERABLES Final Result [facility] [address] [place] [address] [phone] * (ABNORMAL) POCT HGB A1C (02/11/2025 9:17 AM EDT) [facility] Hemoglobin A1C 6.1(A) 4.0 - 6.0 % QC Media Lot # [id number] Lot# Expiration Date [id number] Blood 02/11/2025 9:[address] [facility] POINT OF CARE TEST ENTER/EDIT OR DERABLES Final Result * HIV-1/2 Antigen and Antibodies, Fourth Generation, with Reflexes (10/24/2024 9:22 AM EST) [facility] HIV AB/AG Nonreactive Nonreactive [facility] Comment:HIV-1 p24 Ag and/or HIV-1/HIV-2 Ab not detected.A test result that is nonreactive does not exclude thepossibility of exposure to or infection with HIV-1 and/orHIV-2. Nonreactive results in this assay for individualswith prior exposure to HIV-1 and/or HIV-2 may be due toantigen and antibody levels that are below the limit ofdetection of this assay.The [employer] HIV Ag/Ab Combo assay result andsupplemental assay results should be interpreted inconjunction with the patient's clinical presentation,history and other laboratory results. If the results areinconsistent with clinical evidence, additional testing issuggested to confirm the result. Blood Venous blood specimen / Unknown 10/24/2024 9:22 AM EST 10/24/2024 11:48 AM EST Ashley Frankel MD LAB BLOOD ORDERABLES Final Result [facility] [address] [place] [address] [phone] * Albumin, Random Urine W/Creatinine (08/13/2024 11:26 AM EST) Creatinine, Urine 73.67 mg/dL [facility] Microalbumin Urine 13.0 mg/L [facility] Microalbum Creatinine Ratio Ur 17.6 <30 ug/mg cr [facility] Comment:Albumin/Creatinine R atio Reference Ranges: Normal: < 30 ug/mg creatinine Microalbuminuria: 30 - 300 ug/mg creatinineClinical Albuminuria: > 300 ug/mg creatinine Urine 08/13/2024 11:2 6 AM EST 08/13/2024 1:00 PM EST Ashley Frankel MD LAB URINE ORDERABLES Final Result [facility] [address] [place] [phone] * (ABNORMAL) Lipid Panel, Standard (08/13/2024 11:26 AM EST) Triglycerides 86 <150 mg/dL [facility] Comment:Desirable Triglyceri de: less than 150 mg/dLBorderline High Triglyceride 150-199 mg/dLHigh Triglyceride: 200-499 mg/dLVery High Triglyceride: greater than or equal to 5OO mg/dL Cholesterol 146 <200 mg/dL [facility] Comment:Desirable Cholestero l: less than 200 mg/dLBorderline High Cholesterol: 200-239 mg/dLHigh Cholesterol: greater than 239 mg/dL LDL Cholesterol Calculated 96 <100 mg/dL [facility] Comment:Desirable LDL: less than 100 mg/dLNear Optimal/Above Optimal LDL: 110- 129 mg/dLBorderline High LDL: 130-159 mg/dLHigh LDL: 160-189 mg/dLVery High LDL: greater than or equal to 190 mg/dL HDL Cholesterol 33(L) >40 mg/dL [facility] Comment:Desirable HDL: great er than 40 mg/dL Note: This HDL assay may give artificially low results in patients with liver disease. Blood Venous blood specimen / Unknown 08/13/2024 11:26 AM EST 08/13/2024 12:59 PM EST Ashley Frankel MD LAB BLOOD ORDERABLES Final Result [facility] [address] [place] [address] [phone] * Hm Colonoscopy (04/06/2023) Colonoscopy Normal Normal Moncho Bishop MD HEALTH MAINTENANCE Final Result * Hepatitis C Antibody with Reflex to HCV, RNA, Quantitative, Real-Time PCR (11/11/2022 8:59 AM EDT) Hepatitis C Antibody NON-REACT KELSY NON-REACT KELSY Modify Index 0.64 <1.00 Modify Comment: HCV antibody was non-reactive. There is no laboratory evidence of HCV infection. In most cases, no further action is required. However, if recent HCV exposure is suspected, a test for HCV RNA (test code 31914) is suggested. For additional information please refer to http://education.BookingBug/faq/AYO89r7 (This link is being provided for informational/ educational purposes only.) Blood Venous blood specimen / Unknown 11/11/2022 8:59 AM EDT 11/11/2022 8:59 AM EDT Narrative [facility] - 11/11/2022 9:36 PM EDT FASTING:YES FASTING: YES Ashley Frankel MD LAB BLOOD ORDERABLES Final Result [facility] [address] [place] [address] [employer] [address] [place] [address] from Last 3 Months or Most Recently Relevant to Health Maintenance Insurance [employer] [facility]ARE < 65 DENTAL - [facility] Care Teams Photograph Inspector Relationship Specialty Start Date End Date Clinton, MD Ashley [address] [place] [address] PCP - General Family Medicine 08/28/18November [address] [place] [address] [address] [place] [address] Gastroenterology 07/17/24 Kishore Dorsey MD [address] [place] [address] Urology 07/17/24 Raheel Gee [address] [place] [address] Pulmonary Disease 07/17/24 Riya Fulton [address] 3rd [place] [address] Cardiology 07/17/24 Sergio Hackett [address] [place] [address] Orthopaedic Surgery 07/17/24 Raheel Slater [address] [address] Podiatry 01/22/25 [facility] 10/10/24
--- OUTSIDE RECORDS SUMMARY | 2025-05-27 08:25 | XMS_ITS | Encounter Summary ---
Author Organization [employer] Address [address] [facility] 7t [place] [address] Care Team Providers Care Emd Teacher Name Role Phone Ashley Frankel MD Primary Care Provider [phone] November Unavailable Kishore Dorsey MD Unavailable [phone] Raheel Gee Unavailable [phone] Riya Fulton Unavailable Sergio Hackett Unavailable Unavailable Dominga Silva PharmD Unavailable Raheel Slater Unavailable Encounter Details Date Type Department Care Team (Latest Contact Info) Description 06/08/2022 Abstract [facility] Dental, Provider, DDS Social History [...] Description 08/04/2025 9:30 AM EST Office Visit [facility] ADULT DENTAL [address] [place], [place] [phone] Jackie Peacock 09/08/2025 10:30 AM EST Office Visit [facility] OPTOM[facility]RY [address] [place], [place] [phone] Tania Cordon, OD [address] [place] [address] documented as of this encounter Visit Diagnoses Not on filedocumented in this encounter Care Teams Emd Teacher Relationship Specialty Start Date End Date Ashley Frankel MD [address] [place] [address] PCP - General Family Medicine 08/28/[address] [place] [address] Gastroenterology 07/17/24 Kishore Dorsey MD [address] [place] [address] Urology 07/17/24 Raheel Gee 5 [place], [place] [address] Pulmonary Disease 07/17/24 Riya Fulton [address] [address] Cardiology 07/17/24 Sergio Hackett [address] [place] [address] Orthopaedic Surgery 07/17/24 Dominga Silva, AnanthD [address] [place] [address] Pharmacist Internal Medicine 07/22/24 05/07/25 Raheel Slater [address] [address] Podiatry 01/22/25 [facility] 10/10/24 documented as of this encounter
--- OUTSIDE RECORDS SUMMARY | 2025-05-27 08:25 | XMS_ITS | Encounter Summary ---
Author Organization [employer] Address [address] [facility] 7t [place] [address] Care Team Providers Care Postal Worker Name Role Phone Ashley Frankel MD Primary Care Provider [phone] Viktor November Unavailable Kishore Dorsey MD Unavailable [phone] Raheel Gee Unavailable [phone] Riya Fulton Unavailable Sergio Hackett Unavailable Unavailable Dominga Silva PharmD Unavailable [phone] Raheel Slater Unavailable Encounter Details Date Type Department Care Team (Late st Contact Info) Description 07/25/2022 Abstract [facility] [address] [place] [address] Dental, Provider, DDS Social History Tobacco Use [...] Description 08/04/2025 9:30 AM EST Office Visit [facility] [address] [place] [address] Jackie Peacock 09/08/2025 10:30 AM EST Office Visit [facility] [address] [place] [address] Tania Cordon, OD [address] [place] [address] documented as of this encounter Procedures Procedure [...] on filedocumented in this encounter Care Teams Postal Worker Relationship Specialty Start Date End Date Ashley Frankel MD [address] [place] [address] PCP - General Family Medicine 08/28/18November [address] 3rd [place] [address] Gastroenterology 07/17/24 Kishore Dorsey MD [address] [place] [address] Urology 07/17/24 Raheel Gee 5 [place], [place] [address] Pulmonary Disease 07/17/24 Riya Fulton [address] [facility] 3rd [place] [address] Cardiology 07/17/24 Sergio Hackett [address] [place] [address] Orthopaedic Surgery 07/17/24 Dominga Silva, Mehrdad [address] [place] [address] Pharmacist Internal Medicine 07/22/24 05/07/25 Raheel Slater [address] [address] Podiatry 01/22/25 [facility] 10/10/24 documented as of this encounter
--- OUTSIDE RECORDS SUMMARY | 2025-05-27 08:25 | XMS_ITS | Encounter Summary ---
Author Organization [employer] Address [address] [facility] 7t [place] [address] Care Team Providers Care Retail Stock Clerk Name Role Phone Ashley Frankel MD Primary Care Provider [phone] Viktor November Unavailable Kishore Dorsey MD Unavailable [phone] Raheel Gee Unavailable [phone] Riya Fulton Unavailable Sergio Hackett Unavailable Unavailable Dominga Silva PharmD Unavailable Raheel Slater Unavailable Reason for Visit * Reason Comments Med Change Request Encounter Details Date Type Department Care Team ([facility] st Contact Info) Description 07/12/2023 Refill [facility] [address] [place], [place] [phone] Ashley Frankel MD [address] [place], [place] [phone] Social History Tobacco Use Types Packs/Day Years [...] Description 08/04/2025 9:30 AM EST Office Visit [facility] ADULT DENTAL [address] [place] [address] Jackie Peacock 09/08/2025 10:30 AM EST Office Visit [facility] OPTOMETRY [address] [place] [address] Tania Cordon, OD [address] [place] [address] documented as of this encounter Visit Diagnoses Not on filedocumented in this encounter Care Teams Retail Stock Clerk Relationship Specialty Start Date End Date Ashley Frankel MD [address] [place] [address] PCP - General Family Medicine 08/28/18November [address] 3rd [place] [address] Gastroenterology 07/17/24 Kishore Dorsey MD [address] [place] [address] Urology 07/17/24 Raheel Gee 5 [place], [place] [address] Pulmonary Disease 07/17/24 Riya Fulton 11 [facility] 3rd [place] [address] Cardiology 07/17/24 Sergio Hackett [address] [place] [address] Orthopaedic Surgery 07/17/24 Dominga Silva PharmD [address] [place] [address] Pharmacist Internal Medicine 07/22/24 05/07/25 Raheel Slater [address] [address] Podiatry 01/22/25 [facility] 10/10/24 documented as of this encounter
--- OUTSIDE RECORDS SUMMARY | 2025-05-27 08:25 | XMS_ITS | Clinical Summary ---
Author Organization [address] [place] [address] Address [address] [place] [address] Phone Care Team Providers Care Acrobatic Dancer Name Role Phone Ashley Frankel MD Primary Care Provider [phone]- [phone] Allergies Active Allergy Reactions Criticality Noted Date Comments Clindamycin Anaphylaxis,Unknown High 03/29/2012 Doxycycline Diarrhea,Unknown Low 01/31/2023 Penicillins Anaphylaxis,Unknown High 04/06/2012 Other reaction(s): UNKNOWN REACTION-CHILDHOOD Medications No known medications Medical History Medical History Date Comments Hypertension Diabetes mellitus (CMS/[facility] V24, CMS/[facility] V28) Social History Tobacco Use [...] [facility] Comment:Calculation based on the Chronic [...] Quan MD LAB BLOOD ORDERABLES Final Result [facility] [address] [place] [address], [place] [phone] from Last 3 Months or Most Recently Relevant to Health Maintenance Insurance [facility] Member Subscriber Plan / Payer (Ef fective 2023-Present) Name:BOBBY WAY Relation to Subscriber:Self Name:Bobby Way Payer ID:[id number] Group ID:[id number] Type:Not on file Address: [place] [address] [address] [address] Care Teams Acrobatic Dancer Relationship Specialty Start Date End Date Morton, MD Ashley [address] [place] [address] [phone] PCP - General Family Medicine 08/09/24
--- OUTSIDE RECORDS SUMMARY | 2025-05-27 08:25 | XMS_ITS | Encounter Summary ---
Author Organization [employer] Address 75 [facility] 7t [place] [address] Care Team Providers Care Pulpwood Contractor Name Role Phone Ashley Frankel MD Primary Care Provider [phone]- [phone] November Unavailable Kishore Dorsey MD Unavailable [phone] Raheel Gee Unavailable [phone] Riya Fulton Unavailable Sergio Hackett Unavailable Unavailable Dominga SilvaD Unavailable [phone] Raheel Slater Unavailable Reason for Visit * Reason Comments Med Refill Encounter Details Date Type Department Care Team (Late st Contact Info) Description 07/24/2023 Refill [facility] [address] [place], [place] [phone] [facility] [address] [place], [place] [phone] Prostatitis, acute Social History Tobacco Use Types [...] Description 08/04/2025 9:30 AM EST Office Visit [facility] [address] [place] [address] Jackie Peacock 09/08/2025 10:30 AM EST Office Visit [facility] [address] [place] [address] Bravo, Tania, OD [address] [place] [address] documented as of this encounter Visit Diagnoses Diagnosis Prostatitis, acute Acute prostatitis documented in this encounter Care Teams Pulpwood Contractor Relationship Specialty Start Date End Date Ashley Frankel MD [address] [place] [address] PCP - General Family Medicine 08/28/18November [address] 3rd [place] [address] Gastroenterology 07/17/24 Kishore Dorsey MD [address] [place] [address] Urology 07/17/24 Raheel Gee 5 [place], [place] [address] Pulmonary Disease 07/17/24 Riya Fulton [address]rd [place] [address] Cardiology 07/17/24 Sergio Hackett [address] [facility] 2nd [place] [address] Orthopaedic Surgery 07/17/24 Dominga Silva, AnanthD [address] [place] [address] Pharmacist Internal Medicine 07/22/24 05/07/25 Raheel Slater [address] [address] Podiatry 01/22/25 [facility] 10/10/24 documented as of this encounter
--- OUTSIDE RECORDS SUMMARY | 2025-05-27 08:25 | XMS_ITS | Encounter Summary ---
Author Organization [employer] Address 75 [facility] 7t [place] [address] Care Team Providers Care Pattern Chain Maker Supervisor Name Role Phone Ashley Frankel MD Primary Care Provider [phone] Hoang, November Unavailable Kishore Dorsey MD Unavailable Raheel Gee Unavailable [phone] Riya Fulton Unavailable Sergio Hackett Unavailable Unavailable Dominga SilvaD Unavailable Raheel Slater Unavailable Encounter Details Date Type Department Care Team (Late st Contact Info) Description 07/18/2023 Telephone [facility] [address] [place] [address] Ashley Frankel MD [address] [place], [place] [phone] Social History Tobacco Use Types Packs/Day Years [...] Bia Rose - 08/10/2023 1:42 PM EST Emt called pt to request verification of insurance/Medicare [...] Description 08/04/2025 9:30 AM EST Office Visit [facility] [address] [place] [address] Jackie Peacock 09/08/2025 10:30 AM EST Office Visit [facility] [address] [place] [address] Tania Cordon OD 230 [place] [address] documented as of this encounter Visit Diagnoses Not on filedocumented in this encounter Care Teams Pattern Chain Maker Supervisor Relationship Specialty Start Date End Date Ashley Frankel MD 230 [place] [address] PCP - General Family Medicine 08/28/18 Sonya Hoang [address] [place] [address] Gastroenterology 07/17/24 Kishore Dorsey MD [address] [place] [address] Urology 07/17/24 Raheel Gee 5 [place], [place] 10[address] Pulmonary Disease 07/17/24 Riya Fulton [address] [address] Cardiology 07/17/24 Sergio Hackett [address] [facility] 2nd [place] [address] Orthopaedic Surgery 07/17/24 Dominga Silva PharmD 230 [place] [address] Pharmacist Internal Medicine 07/22/24 05/07/25 Raheel Slater [address] [address] Podiatry 01/22/25 [facility] 10/10/24 documented as of this encounter
--- OUTSIDE RECORDS SUMMARY | 2025-05-27 08:25 | XMS_ITS | Encounter Summary ---
Author Organization [employer] Address 75 [facility] 7t [place] [address] Care Team Providers Care Doctor Of Dental Surgery Name Role Phone Ashley Frankel MD Primary Care Provider [phone]- [phone] November Unavailable Kishore Dorsey MD Unavailable Raheel Gee Unavailable [phone] Riya Fulton Unavailable Sergio Hackett Unavailable Unavailable Dominga Silva PharmD Unavailable [phone] Raheel Slater Unavailable Encounter Details Date Type Department Care Team (Latest Contact Info) Description 07/04/2019 Abstract [facility] CONVERSIONS Dental, Provider, DDS Social History [...] Description 08/04/2025 9:30 AM EST Office Visit [facility] ADULT [facility] [address] [place], [place] [phone] Jackie Peacock 09/08/2025 10:30 AM EST Office Visit [facility] OPT[facility] [address] [place], [place] [phone] Tania Cordon, OD 230 [place] [address] documented as of this encounter Visit Diagnoses Not on filedocumented in this encounter Care Teams Doctor Of Dental Surgery Relationship Specialty Start Date End Date Ashley Frankel MD 230 [place] [address] PCP - General Family Medicine 08/28/[address] [place] [address] Gastroenterology 07/17/24 Kishore Dorsey MD 10 [facility] [address] [place] [address] Urology 07/17/24 Raheel Gee 5 [place] 10[address] Pulmonary Disease 07/17/24 Riya Fulton [address] [address] Cardiology 07/17/24 Sergio Hackett [address] [place] [address] Orthopaedic Surgery 07/17/24 Dominga Silva, AnanthD 230 [place] [address] Pharmacist Internal Medicine 07/22/24 05/07/25 Raheel Slater [address] [address] Podiatry 01/22/25 [facility] Psych[facility] 10/10/24 documented as of this encounter
--- OUTSIDE RECORDS SUMMARY | 2025-05-27 08:26 | XMS_ITS | Encounter Summary ---
Author Organization [employer] Address [address] [place] [address] 7t [place] [address] Care Team Providers Care Dance Choreographer Name Role Phone Ashley Frankel MD Primary Care Provider [phone]- [phone] Viktor November Unavailable Kishore Dorsey MD Unavailable Raheel Gee Unavailable [phone] Riya Fulton Unavailable Sergio Hackett Unavailable Unavailable Dominga Silva PharmD Unavailable Raheel Slater Unavailable Encounter Details Date Type Department Care Team (Late Contact Info) Description 04/07/2023 Abstract [facility] MEDICINE 230 [place], [place] [phone] Ashley Frankel MD [address] [place], [place] [phone] Social History Tobacco Use Types Packs/Day Years [...] Description 08/04/2025 9:30 AM EST Office Visit [facility] ADULT [facility] 230 [facility] [place] [address] Jackie Peacock 09/08/2025 10:30 AM EST Office Visit [facility] OPT[facility] [address] [place] [address] Tania Cordon, OD 230 [place] [address] documented as of this encounter Procedures Procedure Name Priority Date/Time Associated Diagnosis Comments COLONOSCOPY Routine 04/06/2023 documented in this encounter Results * Hm Colonoscopy (04/06/2023) Colonoscopy Normal Normal Historical Provider HEALTH MAINTENANCE Final Result documented in this encounter Visit Diagnoses Not on filedocumented in this encounter Care Teams Dance Choreographer Relationship Specialty Start Date End Date Ashley Frankel MD [address] [place] [address] PCP - General Family Medicine 08/28/18November 11 [facility] 3rd [place] [address] Gastroenterology 07/17/24 Kishore Dorsey MD [address] [place] [address] Urology 07/17/24 Raheel Gee 5 [place], [place] 10[address] Pulmonary Disease 07/17/24 Riya Fulton 11 [facility] 3rd [place] [address] Cardiology 07/17/24 Sergio Hackett [address] [place] [address] Orthopaedic Surgery 07/17/24 Dominga Silva, Mehrdad 230 [place] [address] Pharmacist Internal Medicine 07/22/24 05/07/25 Raheel Slater [address] [address] Podiatry 01/22/25 [facility] 10/10/24 documented as of this encounter
--- OUTSIDE RECORDS SUMMARY | 2025-05-27 08:26 | XMS_ITS | Encounter Summary ---
Author Organization [employer] Address [address] [place] [address] 7t [place] [address] Care Team Providers Care Ribbon Hand Name Role Phone Ashley Frankel MD Primary Care Provider [phone]- [phone] Viktor November Unavailable Kishore Dorsey MD Unavailable Raheel Gee Unavailable [phone] Riya Fulton Unavailable Sergio Hackett Unavailable Unavailable Dominga Silva PharmD Unavailable [phone] Raheel Slater Unavailable Encounter Details Date Type Department Care Team (Late st Contact Info) Description 09/13/[address] [facility] MEDICINE [address] [place] [address] Ashley Frankel MD 230 [place], [place] [phone] Social History Tobacco Use Types Packs/Day Years [...] Description 08/04/2025 9:30 AM EST Office Visit [facility] ADULT DENTAL 230 [place] [address] Jackie Peacock 09/08/2025 10:30 AM EST Office Visit [facility] OPTOMETRY [address] [place] [address] Tania Cordon, OD 230 [place] [address] documented as of this encounter Procedures Procedure Name Priority Date/Time Associated Diagnosis Comments COLONOSCOPY Routine 09/06/2012 documented in this encounter Results * Colonoscopy (09/06/2012) Colonoscopy normal with Dr. Barrera Historical Provider HEALTH MAINTENANCE Final Result documented in this encounter Visit Diagnoses Not on filedocumented in this encounter Care Teams Ribbon Hand Relationship Specialty Start Date End Date Ashley Frankel MD 230 [place] [address] PCP - General Family Medicine 08/28/18November 11 [facility] 3rd [place] [address] Gastroenterology 07/17/24 Kishore Dorsey MD 10 [facility] [address] [place] [address] Urology 07/17/24 Raheel Gee 5 [place], [place] 10[address] Pulmonary Disease 07/17/24 Riya Fulton 11 [facility] 3rd [place] [address] Cardiology 07/17/24 Sergio Hackett [address] [place] [address] Orthopaedic Surgery 07/17/24 Dominga Silva, Mehrdad 230 [place] [address] Pharmacist Internal Medicine 07/22/24 05/07/25 Raheel Slater [address] [address] Podiatry 01/22/25 [facility] 10/10/24 documented as of this encounter
--- OUTSIDE RECORDS SUMMARY | 2025-05-27 08:26 | XMS_ITS | Encounter Summary ---
Author Organization [employer] Address 75 [facility] 7t [place] [address] Care Team Providers Care Fixed Route Bus Operator Name Role Phone Ashley Frankel MD Primary Care Provider [phone] November Unavailable Kishore Dorsey MD Unavailable [phone] Raheel Gee Unavailable [phone] Riya Fulton Unavailable Sergio Hackett Unavailable Unavailable Dominga Silva PharmD Unavailable Raheel Slater Unavailable Encounter Details Date Type Department Care Team (Late st Contact Info) Description 02/01/2023 Telephone [facility] MEDICINE 230 [place], [place] [phone] Ashley Frankel MD 230 [place], [place] [phone] Social History Tobacco Use Types Packs/Day Years [...] Description 08/04/2025 9:30 AM EST Office Visit [facility] ADULT DENTAL 230 [place] [address] Jackie Peacock 09/08/2025 10:30 AM EST Office Visit [facility] OPTOMETRY [address] [place] [address] Tania Cordon, OD 230 [place] [address] documented as of this encounter Visit Diagnoses Not on filedocumented in this encounter Care Teams Fixed Route Bus Operator Relationship Specialty Start Date End Date Ashley Frankel MD 230 [place] [address] PCP - General Family Medicine 08/28/18November [address] [place] [address] Gastroenterology 07/17/24 Kishore Dorsey MD [address] [place] [address] Urology 07/17/24 Raheel Gee 5 [place], [place] [address] Pulmonary Disease 07/17/24 Riya Fulton [address] [place] [address] Cardiology 07/17/24 Sergio Hackett [address] [place] [address] Orthopaedic Surgery 07/17/24 Dominga Sivla PharmD 230 [place] [address] Pharmacist Internal Medicine 07/22/24 05/07/25 Raheel Slater 175 [place] [address] Podiatry 01/22/25 [facility] Psychiatry 10/10/24 documented as of this encounter
== END ==
LOC: HO.NUCMED 08:09
PROVIDERS: PCP Family Medicine; Visit Provider Nurse Practitioner
DX: R68.81 Early satiety (principal)
CPT/HCPCS: 78264; A9541

== ENCOUNTER 2025-06-03 09:25 | Outpatient (AMB) | payer OTHER, SELFPAY ==
[2025-06-03 09:26] VITALS: BP 151/76; PULSE 76; O2SAT 99; BMI 25.7
--- NOTE | 2025-06-03 09:26 | MHC.OFFVIS ---
Vital Signs 06/03/25 09:26 Height 5 ft 7 in Weight 164 lb 0.383 oz BMI 25.7 BP 151/76 H Blood Pressure Location Lt brachial Position Sitting Pulse 76 Pulse Oximetry (%) 99 Oxygen Delivery Method Room Air Intake Visit Reasons: Follow up gastric emptying Intake Note: This patient presents for a follow-up assessment status post gastric emptying. Pt c/o; no complaints. Geothermal Plant Manager Required: No Accompanied by: Self / Same As Patient Allergies amoxicillin (AMOXICILLIN) Allergy (Severe, Verified 06/03/25 09:30) ANAPHYLAXIS Penicillins Allergy (Severe, Verified 06/03/25 09:30) UNKNOWN REACTION-CHILDHOOD doxycycline (From VIBRAMYCIN) Adverse Reaction (Mild, Verified 06/03/25 09:30) DIARRHEA Clindamycin HCl Allergy (Severe, Uncoded 06/03/25 09:30) Anaphylaxis HPI HPI Follow up gastric emptying: Details: Assessment & Plan (1) GERD (gastroesophageal reflux disease): Code(s): K21.9 - Gastro-esophageal reflux disease without esophagitis Category: Medical (2) Constipation: Code(s): K59.00 - Constipation, unspecified Category: Medical (3) Chronic idiopathic constipation: Code(s): K59.04 - Chronic idiopathic constipation Category: Medical Plan He had no success moving his bowels with bisacodyl. Because of this and because he has now failed MiraLax, Colace, fiber, senna, lactulose, and now Dulcolax we will move him on to Linzess. We will start 145 micro g and titrate to affect her side effect. He is a diabetic and although he is diet controlled I wonder if he may have an element of gastroparesis. I say this because he frequently has some bloating and reports early satiety. I will order a gastric emptying study and consider if a trial of Reglan would be appropriate in the future depending on his response to Linzess. Return office visit in 2 weeks Orders: Orders NM gastric emptying study Today R68.81 - Early satiety Medications: New linaclotide (Linzess) Take first thing in the morning with a full glass of water. 145 mcg PO QAM 30 caps 6RF K59.04 - Chronic idiopathic constipation Discontinued bisacodyl (Dulcolax (bisacodyl)) Discontinued Reason: Doctor's Order 10 mg (2 x 5 mg) PO BEDTIME 30 days 60 tabs 6RF K59.00 - Constipation, unspecified GASTRIC EMPTYING STUDY 05/27/2025 IMPRESSION: Rapid gastric emptying. TODAY'S VISIT [facility] Medical History (Updated 06/03/25 @ 09:38 by CAIN Neville) Rectal bleeding Constipation Renal calculus, right Opacity of lung on imaging study Pre-op examination GERD (gastroesophageal reflux disease) Orchialgia Weak urinary stream Asthma Nasal polyps Diabetes HTN (hypertension) Pulmonary nodules Surgical History (Updated 06/03/25 @ 09:38 by CAIN Neville) Hx of colonoscopy History of esophagogastroduodenoscopy (EGD) H/O wrist surgery Family History Father Diabetes Hypertension Mother Hypertension Hyperlipidemia Brother Hypertension Family/Other Kidney stones Prostate cancer Bladder cancer Renal cancer Social History Household Members: None Housing: Apartment Alcohol intake: former Patient Tobacco Use Status: Former Tobacco user Tobacco use type: Cigarette Years Smoked: 30 years service: No Review of Systems Const Denies fatigue, Denies fever(s), Denies night sweats, Denies poor appetite and Denies weight loss ENT Reports Normal hearing present, Denies dental pain, Denies dysphagia, Denies hearing loss, Denies mouth pain, Denies odynophagia, Denies throat swelling, Denies tongue swelling and Reports other (Dentition adequate) Card Reports no additional complaints Resp Reports no additional complaints GI Details: Denies abdominal pain, Denies melena, Denies bloating, Denies hematochezia, Reports constipation, Denies GI cramping, Denies dysphagia, Denies excessive flatus, Denies early satiety, Reports heartburn, Denies diarrhea, Denies nausea, Denies odynophagia, Denies vomiting and Denies hematemesis Skin/Breast Denies pruritus, Denies lesions, Denies rash and Denies jaundice Neuro Reports Normal hearing present and Denies Abnormal speech present Endo Denies fatigue Aller/Immun Denies throat swelling and Denies tongue swelling Physical Exam Vital Signs: Last Vital Signs Pulse 76 06/03/25 09:26 BP 151/76 H 06/03/25 09:26 Pulse Ox 99 06/03/25 09:26 Oxygen Delivery Method Room Air 06/03/25 09:26 BMI result Body Mass Index 25.7 Const General: cooperative, no acute distress, well developed and well groomed Nutritional Appearance: average body habitus and well nourished Orientation/consciousness: oriented to person, oriented to place and oriented to time Limitations: language barrier HEENT Head: Yes normocephalic and Yes atraumatic Eyes General: appearance normal, both eyes and all related structures Pupils: Equal, round and reactive pupils present Neck Neck: Yes normal visual inspection and Yes no lymphadenopathy Thyroid: Thyroid normal Resp Effort & Inspection: normal respiratory effort and able to speak in complete sentences Auscultation: clear to auscultation bilaterally Cardio Rate: regular rate Rhythm: regular rhythm Heart sounds: Normal, physiologic split S2 sound present Peripheral pulses: radial pulses present and posterior tibial pulses present GI Inspection: No distended and No Abdominal panniculus present Palpation (GI): Soft to palpation, nontender, no guarding, not rigid and No hepatosplenomegaly present Percussion: Yes normal to percussion Auscultation: normal bowel sounds Rectal Exam - Male: Yes deferred Skin General skin exam: no rashes or lesions noted, turgor normal, skin not dry, no jaundice, No spider nevi and no striae Rashes: no rashes Nails: normal Neuro General: oriented to person, oriented to place and oriented to time Cranial nerves: Yes Equal, round and reactive pupils present and Yes Normal hearing present Speech: No Abnormal speech present Extrem General: Yes normal to inspection, No clubbing, No cyanosis and No edema Psych Appearance: grossly normal and well kempt Mental Status: mental status grossly normal Speech and movement: Normal speech and movement present Affect: normal affect Attitude: cooperative Thought process: Normal thought process present and not confabulating Thought content: Normal thought content present Insight: Limited insight present (Psych) Judgement: Limited judgement present (Psych) Assessment & Plan Assessment & Plan (1) GERD (gastroesophageal reflux disease): Code(s): K21.9 - Gastro-esophageal reflux disease without esophagitis Category: Medical (2) Chronic idiopathic constipation: Code(s): K59.04 - Chronic idiopathic constipation Category: Medical Plan Swedish # Rosa Maria hernandez He received the Linzess but at 145 micro g it has not made a big difference. He does feel it may have helped just a little so I think we need to increase the dose to the next step which is 290 micro g. He is agreeable to this. We review the gastric emptying study any in fact has a rapid gastric emptying so gastroparesis is not part of why he is having poor intestinal motility. He continues on his omeprazole with good control of his GERD. Return office visit in 6 weeks Medications: New linaclotide (Linzess) 290 mcg PO QAM 30 caps 6RF 30 days K59.04 - Chronic idiopathic constipation Refilled omeprazole 20 mg PO DAILY 30 caps 6RF 30 days Discontinued linaclotide (Linzess) Take first thing in the morning with a full glass of water. Discontinued Reason: Doctor's Order 145 mcg PO QAM 30 caps 6RF K59.04 - Chronic idiopathic constipation Coding Level of Care Code Est Pt Level 3 (87607) Diagnoses GERD (gastroesophageal reflux disease) K21.9 Chronic idiopathic constipation K59.04
--- OUTSIDE RECORDS SUMMARY | 2025-06-03 10:37 | XMS_ITS | Encounter Summary ---
Author Organization [employer] Address [address] [facility] 7t [place] [address] Care Team Providers Care Analytical Lab Analyst Name Role Phone Ashley Frankel MD Primary Care Provider [phone]- [phone] November Unavailable Kishore Dorsey MD Unavailable [phone] Raheel Gee Unavailable [phone] Riya Fulton Unavailable Sergio Hackett Unavailable Unavailable Dominga SilvaD Unavailable Raheel Slater Unavailable Reason for Visit * Reason Comments Med Refill Encounter Details Date Type Department Care Team (Late st Contact Info) Description 07/24/2023 Refill [facility] WALK-IN CENTER 230 [place], [place] [phone] [facility] 230 [place], [place] [phone] Prostatitis, acute Social History Tobacco Use Types [...] 08/04/2025 9:30 AM EST Office Visit [facility] ADULT DENTAL 230 [place] [address] Jackie Peacock 09/08/2025 10:30 AM EST Office Visit [facility] OPTOMETRY [address] [place] [address] Bravo, Tania, OD 230 [place] [address] documented as of this encounter Visit Diagnoses Diagnosis Prostatitis, acute Acute prostatitis documented in this encounter Care Teams Analytical Lab Analyst Relationship Specialty Start Date End Date Ashley Frankel MD 230 [place] [address] PCP - General Family Medicine 08/28/18November [address] 3rd [place] [address] Gastroenterology 07/17/24 Kishore Dorsey MD [address] [place] [address] Urology 07/17/24 Raheel Gee 5 [place] [address]40 Pulmonary Disease 07/17/24 Riya Fulton [address]rd [place] [address] Cardiology 07/17/24 Sergio Hackett [address] [facility] 2nd [place] [address] Orthopaedic Surgery 07/17/24 Dominga Silva, AnanthD 230 [place] [address] Pharmacist Internal Medicine 07/22/24 05/07/25 Raheel Slater [address] [address] Podiatry 01/22/25 [facility] 10/10/24 documented as of this encounter
--- OUTSIDE RECORDS SUMMARY | 2025-06-03 10:37 | XMS_ITS | Encounter Summary ---
Author Organization [employer] Address [address] [facility] 7t [place] [address] Care Team Providers Care Belting Inspector Name Role Phone Ashley Frankel MD Primary Care Provider [phone]- [phone] HoangNovember Unavailable Kishore Dorsey MD Unavailable [phone] Raheel Gee Unavailable [phone] Riya Fulton Unavailable Sergio Hackett Unavailable Unavailable Raheel Slater Unavailable Reason for Visit * Reason Comments Med Refill Encounter Details Date Type Department Care Team (Late st Contact Info) Description 06/02/2025 Refill [facility] MEDICINE 230 [place], [place] [phone] Ashley Frankel MD 230 [place], [place] [phone] Constipation, unspecified constipation type Social History Tobacco Use Types Packs/Day Years Used Date Smoking Tobacco: Former Cigarettes Smokeless Tobacco: Never Alcohol Use Standard Drinks/Week Comments Never 0 [...] 9:30 AM EST Office Visit [facility] ADULT DENTAL 230 [place] [address] Jackie Peacock 09/08/2025 10:30 AM EST Office Visit [facility] OPTOMETRY [address] [place] [address] Bravo, Tania, OD 230 [place] [address] documented as of this encounter Visit Diagnoses Diagnosis Constipation, unspecified constipation type documented in this encounter Additional Health Concerns Assessment Noted Time PHQ-9 Depression Total Score: 0 07/17/20 24 10:33 AM EST documented as of this encounter Care Teams Belting Inspector Relationship Specialty Start Date End Date Ashley Frankel MD 230 [place] [address] PCP - General Family Medicine 08/28/18 Sonya Hoang [address] 3rd [place] [address] Gastroenterology 07/17/24 Kishore Dorsey MD [address] [place] [address] Urology 07/17/24 Raheel Gee 5 [place], [place] [address] Pulmonary Disease 07/17/24 Riya Fulton [address] [facility] [address] 3rd [place] [address] Cardiology 07/17/24 Sergio Hackett [address] [place] [address] Orthopaedic Surgery 07/17/24 Raheel Slater [address] [address] Podiatry 01/22/25 De. [facility] Psychiatry 10/10/24 documented as of this encounter
--- OUTSIDE RECORDS SUMMARY | 2025-06-03 10:37 | XMS_ITS | Encounter Summary ---
Author Organization [employer] Address [address] [facility] 7t [place] [address] Care Team Providers Care Consumer Insight Analyst Name Role Phone Ashley Frankel MD Primary Care Provider [phone]- [phone] November Unavailable Kishore Dorsey MD Unavailable [phone] Raheel Gee Unavailable [phone] Riya Fulton Unavailable Sergio Hackett Unavailable Unavailable Dominga Silva PharmD Unavailable Raheel Slater Unavailable Encounter Details Date Type Department Care Team (Latest Contact Info) Description 07/04/2019 Abstract [facility] CONVERSIONS Dental, Provider, DDS Social [...] Description 08/04/2025 9:30 AM EST Office Visit [facility] ADULT DENTAL 230 [place], [place] [phone] Jackie Peacock 09/08/2025 10:30 AM EST Office Visit [facility] OPTOMETRY 267 [place], [place] [phone] Tania Cordon, OD 230 [place] [address] documented as of this encounter Visit Diagnoses Not on filedocumented in this encounter Care Teams Consumer Insight Analyst Relationship Specialty Start Date End Date Ashley Frankel MD 230 [place] [address] PCP - General Family Medicine 08/28/[address]rd [place] [address] Gastroenterology 07/17/24 Kishore Dorsey MD 10 [facility] [address] [place] [address] Urology 07/17/24 Raheel Gee 5 [place], [place] [address] Pulmonary Disease 07/17/24 Riya Fulton [address] [address] Cardiology 07/17/24 Sergio Hackett [address] [place] [address] Orthopaedic Surgery 07/17/24 Dominga Silva, AnanthD 230 [place] [address] Pharmacist Internal Medicine 07/22/24 05/07/25 Raheel Slater [address] [address] Podiatry 01/22/25 [facility] Psych[facility] 10/10/24 documented as of this encounter
--- OUTSIDE RECORDS SUMMARY | 2025-06-03 10:37 | XMS_ITS | Encounter Summary ---
Author Organization [employer] Address [address] [facility] 7t [place] [address] Care Team Providers Care Facilities Custodian Name Role Phone Ashley Frankel MD Primary Care Provider [phone]- [phone] November Unavailable Kishore Dorsey MD Unavailable [phone] Raheel Gee Unavailable [phone] Riya Fulton Unavailable Sergio Hackett Unavailable Unavailable Dominga Silva PharmD Unavailable Raheel Slater Unavailable Encounter Details Date Type Department Care Team (Latest Contact Info) Description 06/08/2022 Abstract [facility] CONVERSIONS Dental, Provider, DDS Social History [...] Description 08/04/2025 9:30 AM EST Office Visit [facility] ADULT DENTAL 230 [place], [place] [phone] Jackie Peacock 09/08/2025 10:30 AM EST Office Visit [facility] OPTOMETRY [address] [place], [place] [phone] Tania Cordon, OD 230 [place] [address] documented as of this encounter Visit Diagnoses Not on filedocumented in this encounter Care Teams Facilities Custodian Relationship Specialty Start Date End Date Ashley Frankel MD 230 [place] [address] PCP - General Family Medicine 08/28/[address]rd [place] [address] Gastroenterology 07/17/24 Kishore Dorsey MD [address] [facility] [address] [place] [address] Urology 07/17/24 Raheel Gee 5 [place], [place] [address] Pulmonary Disease 07/17/24 Riya Fulton [address] [address] Cardiology 07/17/24 Sergio Hackett [address] [place] [address] Orthopaedic Surgery 07/17/24 Dominga Silva, AnanthD 230 [place] [address] Pharmacist Internal Medicine 07/22/24 05/07/25 Raheel Slater [address] [address] Podiatry 01/22/25 [facility] Psych[facility] 10/10/24 documented as of this encounter
--- OUTSIDE RECORDS SUMMARY | 2025-06-03 10:37 | XMS_ITS | Encounter Summary ---
Author Organization [employer] Address [address] [facility] 7t [place] [address] Care Team Providers Care It Systems Analyst Consultant Name Role Phone Ashley Frankel MD Primary Care Provider [phone]- [phone] Viktor November Unavailable Kishore Dorsey MD Unavailable Raheel Gee Unavailable [phone] Riya Fulton Unavailable Sergio Hackett Unavailable Unavailable Raheel Slater Unavailable Reason for Visit * Reason Onset Date Comments July Recalls 06/02/2025 Encounter Details Date Type Department Care Team (Late st Contact Info) Description 06/02/2025 Telephone [facility] MEDICINE 230 [place], [place] [phone] Ashley Frankel MD 230 [place], [place] [phone] July Recalls Social History Tobacco Use Types Packs/Day Years [...] Telephone Encounter - Cori Thompson [place] - 06/02/2025 2:39 PM EDT Please schedule appointment above if patient returns call Visit type: Physical Appointment notes: Physical Month due: July With: Sharkey documented in this encounter Plan of Treatment Upcoming Encounters Date Type Department Care Team (Late st Contact Info) Description 08/04/2025 9:30 AM EST Office Visit [facility] ADULT DENTAL 230 [place] [address] Jackie Peacock 09/08/2025 10:30 AM EST Office Visit [facility] OPTOMETRY [address] [place] [address] Tania Cordon, OD 230 [place] [address] documented as of this encounter Visit Diagnoses Not on filedocumented in this encounter Additional Health Concerns Assessment Noted Time PHQ-9 Depression Total Score: 0 07/17/20 10:33 AM EST documented as of this encounter Care Teams It Systems Analyst Consultant Relationship Specialty Start Date End Date Ashley Frankel MD 230 [place] [address] PCP - General Family Medicine 08/28/[address] 3rd [place] [address] Gastroenterology 07/17/24 Kishore oDrsey MD 10 [facility] [address] [place] [address] Urology 07/17/24 Raheel Gee 5 [place], [place] 10[address] Pulmonary Disease 07/17/24 Riya Fulton 11 [facility] 3rd [place] [address] Cardiology 07/17/24 Sergio Hackett [address] [place] [address] Orthopaedic Surgery 07/17/24 Raheel Slater [address] [address] Podiatry 01/22/25 [facility] Psychiatry 10/10/24 documented as of this encounter
--- OUTSIDE RECORDS SUMMARY | 2025-06-03 10:37 | XMS_ITS | Encounter Summary ---
Author Organization [employer] Address 75 [facility] 7t [place] [address] Care Team Providers Care Operations Technician Name Role Phone Ashley Frankel MD Primary Care Provider [phone]- [phone] Viktor November Unavailable Kishore Dorsey MD Unavailable Raheel Gee Unavailable [phone] Riya Fulton Unavailable Sergio Hackett Unavailable Unavailable Dominga Silva PharmD Unavailable Raheel Slater Unavailable Reason for Visit * Reason Comments Med Change Request Encounter Details Date Type Department Care Team ([facility] st Contact Info) Description 07/12/2023 Refill [facility] MEDICINE 230 [place], [place] [phone] Ashley Frankel MD 230 [place], [place] [phone] Social History Tobacco Use Types Packs/Day Years [...] Description 08/04/2025 9:30 AM EST Office Visit [facility] ADULT DENTAL 230 [place] [address] Jackie Peacock 09/08/2025 10:30 AM EST Office Visit [facility] OPTOMETRY [address] [place] [address] Tania Cordon, OD 230 [place] [address] documented as of this encounter Visit Diagnoses Not on filedocumented in this encounter Care Teams Operations Technician Relationship Specialty Start Date End Date Ashley Frankel MD 230 [place] [address] PCP - General Family Medicine 08/28/18November [address] 3rd [place] [address] Gastroenterology 07/17/24 Kishore Dorsey MD [address] [place] [address] Urology 07/17/24 Raheel Gee 5 [place], [place] 10[address] Pulmonary Disease 07/17/24 Riya Fulton 11 [facility] 3rd [place] [address] Cardiology 07/17/24 Sergio Hackett [address] [place] [address] Orthopaedic Surgery 07/17/24 Dominga Silva PharmD 230 [place] [address] Pharmacist Internal Medicine 07/22/24 05/07/25 Raheel Slater [address] [address] Podiatry 01/22/25 [facility] Psychiatry 10/10/24 documented as of this encounter
--- OUTSIDE RECORDS SUMMARY | 2025-06-03 10:37 | XMS_ITS | Clinical Summary ---
Author Organization [address] [place] [address] Address 175 [place] [address] Phone Care Team Providers Care Teacher Of The Visually Impaired Name Role Phone Ashley Frankel MD Primary Care Provider +1- [phone] Allergies Active Allergy Reactions Criticality Noted Date Comments Clindamycin Anaphylaxis,Unknown High 03/29/2012 Doxycycline Diarrhea,Unknown Low 01/31/2023 Penicillins Anaphylaxis,Unknown High 04/06/2012 Other reaction(s): UNKNOWN REACTION-CHILDHOOD Medications No known medications Medical History Medical History Date Comments Hypertension Diabetes mellitus (CMS[facility] V24, CMS/[facility] V28) Social History Tobacco Use Types [...] Health Maintenance Due Date Last Done Comments Colorectal Cancer Screening: Colonoscopy 1964 Diabetes: Annual Foot Exam 1974 Diabetes: Annual Retina Eye Exam 1974 Zoster Vaccines (1 of 2) 2014 Pneumococcal Vaccine: 50+ Years (2 of 2 - PCV) 05/14/2016 05/14/2015, 06/30/2006 Diabetes: Annual Urine Albumin-Creatinine Ratio (uACR) 08/09/2024 [...] mmol/L LAB CHEMISTRY METHOD 10/12/2024 12:38 AM [facility] Potassium 4.3 3.5 - 5.5 mmol/L LAB CHEMISTRY METHOD 10/12/2024 12:38 AM [facility] Chloride 107 96 - 110 mmol/L LAB CHEMISTRY METHOD 10/12/2024 12:38 AM [facility] CO2 30 21 - 32 mmol/L LAB CHEMISTRY METHOD 10/12/2024 12:38 AM [facility] Anion Gap 1(L) 3 - 11 LAB CHEMISTRY METHOD 10/12/2024 12:38 AM [facility] Glucose 126(H) 70 - 100 mg/dL LAB CHEMISTRY METHOD 10/12/2024 12:38 AM [facility] BUN 15 5 - 25 mg/dL LAB CHEMISTRY METHOD 10/12/2024 12:38 AM [facility] Creatinine 1.15 0.70 - 1.30 mg/dL LAB CHEMISTRY METHOD 10/12/2024 12:38 AM [facility] eGFR 73 >=60 mL/min/1. 73m2 LAB CHEMISTRY METHOD 10/12/2024 12:38 AM [facility] Comment:Calculation based on the Chronic Kidney Disease Epidemiology Collaboration (CKD-EPI) equation refit without adjustment for race. BUN/Creatinine Ratio 13.0 LAB CHEMISTRY METHOD 10/12/2024 12:38 AM [facility] Calcium 9.8 8.5 - 10.5 mg/dL LAB CHEMISTRY METHOD 10/12/2024 12:38 AM [facility] AST (SGOT) 24 10 - 42 unit/L LAB CHEMISTRY METHOD 10/12/2024 12:38 AM [facility] ALT (SGPT) 22 10 - 60 unit/L LAB CHEMISTRY METHOD 10/12/2024 12:38 AM [facility] Alkaline Phosphatase 100 42 - 121 unit/L LAB CHEMISTRY METHOD 10/12/2024 12:38 AM [facility] Total Protein 6.9 6.0 - 8.0 g/dL LAB CHEMISTRY METHOD 10/12/2024 12:38 AM [facility] Albumin 3.9 3.2 - 5.0 g/dL LAB CHEMISTRY METHOD 10/12/2024 12:38 AM [facility] Total Bilirubin 0.6 0.0 - 1.4 mg/dL LAB CHEMISTRY METHOD 10/12/2024 12:38 AM [facility] Blood Venous blood specimen / Unknown Venipuncture / Unknown 10/11/2024 11:18 PM EST 10/11/2024 11:44 PM EST us Smith Quan MD LAB BLOOD ORDERABLES Final Result [facility] [address] [place] [address], [place] [phone] from Last 3 Months or Most Recently Relevant to Health Maintenance Insurance [facility] Member Subscriber Plan / Payer (Ef fective 2023-Present) Name:BOBBY WAY Relation to Subscriber:Self Name:Bobby Way Payer ID:[id number] Group ID:[id number] Type:Not on file Address: [place] [address] [address] [id number] Care Teams Teacher Of The Visually Impaired Relationship Specialty Start Date End Date Marlys, MD Ashley [address] [place] [address] [phone] PCP - General Family Medicine 08/09/24
--- OUTSIDE RECORDS SUMMARY | 2025-06-03 10:37 | XMS_ITS | Encounter Summary ---
Author Organization [employer] Address [address] [place] [address] 7t [place] [address] Care Team Providers Care Information Systems Project Manager Name Role Phone Ashley Frankel MD Primary Care Provider [phone]- [phone] Viktor November Unavailable Kishore Dorsey MD Unavailable Raheel Gee Unavailable [phone] Riya Fulton Unavailable Sergio Hackett Unavailable Unavailable Dominga Silva PharmD Unavailable [phone] Raheel Slater Unavailable Encounter Details Date Type Department Care Team (Late Contact Info) Description 04/07/2023 Abstract [facility] MEDICINE 230 [place], [place] [phone] Ashley Frankel MD 230 [place], [place] [phone] Social History Tobacco Use Types Packs/Day Years [...] Description 08/04/2025 9:30 AM EST Office Visit [facility] ADULT DENTAL [facility] [place] [address] Jackie Peacock 09/08/2025 10:30 AM EST Office Visit [facility] OPTOMETRY [address] [place] [address] Tania Cordon, OD 230 [place] [address] documented as of this encounter Procedures Procedure Name Priority Date/Time Associated Diagnosis Comments COLONOSCOPY Routine 04/06/2023 documented in this encounter Results * Hm Colonoscopy (04/06/2023) Colonoscopy Normal Normal Historical Provider HEALTH MAINTENANCE Final Result documented in this encounter Visit Diagnoses Not on filedocumented in this encounter Care Teams Information Systems Project Manager Relationship Specialty Start Date End Date Ashley Frankel MD 230 [place] [address] PCP - General Family Medicine 08/28/18November [address] [facility] 3rd [place] [address] Gastroenterology 07/17/24 Kishore Dorsey MD [address] [place] [address] Urology 07/17/24 Raheel Gee 5 [place], [place] 10[address] Pulmonary Disease 07/17/24 Riya Fulton 11 [facility] 3rd [place] [address] Cardiology 07/17/24 Sergio Hackett [address] [place] [address] Orthopaedic Surgery 07/17/24 Dominga Silva, Mehrdad 230 [place] [address] Pharmacist Internal Medicine 07/22/24 05/07/25 Raheel Slater [address] [address] Podiatry 01/22/25 [facility] [place] Psychiatry 10/10/24 documented as of this encounter
--- OUTSIDE RECORDS SUMMARY | 2025-06-03 10:37 | XMS_ITS | Encounter Summary ---
Author Organization [employer] Address [address] [place] [address] 7t [place] [address] Care Team Providers Care Car Supplier Name Role Phone Ashley Frankel MD Primary Care Provider [phone]- [phone] Viktor November Unavailable Kishore Dorsey MD Unavailable [phone] Raheel Gee Unavailable [phone] Riya Fulton Unavailable Sergio Hackett Unavailable Unavailable Dominga Silva PharmD Unavailable Raheel Slater Unavailable Encounter Details Date Type Department Care Team (Late st Contact Info) Description 09/13/2022 Abstract [facility] MEDICINE [address] [place] [address] Ashley Frankel MD 230 [place], [place] [phone] Social History Tobacco Use Types Packs/Day Years [...] Description 08/04/2025 9:30 AM EST Office Visit [facility] ADULT DENTAL [address] [place] [address] Jackie Peacock 09/08/2025 10:30 AM EST Office Visit [facility] OPTOMETRY [address] [place] [address] Tania Cordon, OD 230 [place] [address] documented as of this encounter Procedures Procedure Name Priority Date/Time Associated Diagnosis Comments COLONOSCOPY Routine 09/06/2012 documented in this encounter Results * Colonoscopy (09/06/2012) Colonoscopy normal with Dr. Barrera Historical Provider HEALTH MAINTENANCE Final Result documented in this encounter Visit Diagnoses Not on filedocumented in this encounter Care Teams Car Supplier Relationship Specialty Start Date End Date Ashley Frankel MD 230 [place] [address] PCP - General Family Medicine 08/28/18November 11 [facility] 3rd [place] [address] Gastroenterology 07/17/24 Kishore Dorsey MD 10 [facility] [address] [place] [address] Urology 07/17/24 Raheel Gee 5 [place] 10[address] Pulmonary Disease 07/17/24 Riya Fulton 11 [facility] 3[address] [place] [address] Cardiology 07/17/24 Sergio Hackett [address] [place] [address] Orthopaedic Surgery 07/17/24 Dominga Silva, Mehrdad 230 [place] [address] Pharmacist Internal Medicine 07/22/24 05/07/25 Raheel Slater [address] [address] Podiatry 01/22/25 [facility] Psychiatry 10/10/24 documented as of this encounter
--- OUTSIDE RECORDS SUMMARY | 2025-06-03 10:37 | XMS_ITS | Encounter Summary ---
Author Organization [employer] Address 75 [facility] 7t [place] [address] Care Team Providers Care Analyst Market Intelligence Name Role Phone Ashley Frankel MD Primary Care Provider [phone]- [phone] Viktor November Unavailable Kishore Dorsey MD Unavailable Raheel Gee Unavailable [phone] Riya Fulton Unavailable Sergio Hackett Unavailable Unavailable Dominga Silva PharmD Unavailable Raheel Slatre Unavailable Encounter Details Date Type Department Care Team (Late st Contact Info) Description 07/25/2022 Abstract [facility] ADULT DENTAL 230 [place] [address] Dental, Provider, DDS Social History Tobacco Use [...] Description 08/04/2025 9:30 AM EST Office Visit [facility] ADULT DENTAL 230 [place] [address] Jackie Peacock 09/08/2025 10:30 AM EST Office Visit [facility] OPTOMETRY [address] [place] [address] Tania Cordon, OD 230 [place] [address] documented as of this encounter Procedures Procedure [...] on filedocumented in this encounter Care Teams Analyst Market Intelligence Relationship Specialty Start Date End Date Ashley Frankel MD 230 [place] [address] PCP - General Family Medicine 08/28/18November [address] 3rd [place] [address] Gastroenterology 07/17/24 Kishore Dorsey MD [address] [place] [address] Urology 07/17/24 Raheel Gee 5 [place], [place] 10[address] Pulmonary Disease 07/17/24 Riya Fulton 11 [facility] 3rd [place] [address] Cardiology 07/17/24 Sergio Hackett [address] [facility] [address] [address]nd [place] [address] Orthopaedic Surgery 07/17/24 Dominga Silva, Mehrdad 230 [place] [address] Pharmacist Internal Medicine 07/22/24 05/07/25 Raheel Slater [address] [address] Podiatry 01/22/25 [facility] Psych[facility] 10/10/24 documented as of this encounter
--- OUTSIDE RECORDS SUMMARY | 2025-06-03 10:37 | XMS_ITS | Encounter Summary ---
Author Organization [employer] Address [address] [facility] [address] [place] [address] Care Team Providers Care Maintenance Data Analyst Name Role Phone Ashley Frankel MD Primary Care Provider [phone] November Unavailable Kishore Dorsey MD Unavailable [phone] Raheel Gee Unavailable [phone] Riya Fulton Unavailable Sergio Hackett Unavailable Unavailable Dominga Silva PharmD Unavailable Raheel Slater Unavailable Encounter Details Date Type Department Care Team (Late st Contact Info) Description 02/01/2023 Telephone [facility] MEDIC[facility] [address] [place], [place] [phone] Ashley Frankel MD [address] [place], [place] [phone] Social History Tobacco Use Types Packs/Day Years [...] Description 08/04/2025 9:30 AM EST Office Visit [facility] ADULT DENTAL [address] [place] [address] Jackie Peacock 09/08/2025 10:30 AM EST Office Visit [facility] OPTOMETRY [address] [place] [address] Tania Cordon, OD [address] [place] [address] documented as of this encounter Visit Diagnoses Not on filedocumented in this encounter Care Teams Maintenance Data Analyst Relationship Specialty Start Date End Date Ashley Frankel MD [address] [place] [address] PCP - General Family Medicine 08/28/18November [address] [place] [address] Gastroenterology 07/17/24 Kishore Dorsey MD [address] [place] [address] Urology 07/17/24 Raheel Gee [address] [place], [place] [address] Pulmonary Disease 07/17/24 Riya uFlton [address] [place] [address] Cardiology 07/17/24 Sergio Hackett [address] [place] [address] Orthopaedic Surgery 07/17/24 Dominga Silva PharmD [address] [place] [address] Pharmacist Internal Medicine 07/22/24 05/07/25 Raheel Slater [address] [place] [address] Podiatry 01/22/25 De. [facility] Psychiatry 10/10/24 documented as of this encounter
--- OUTSIDE RECORDS SUMMARY | 2025-06-03 10:37 | XMS_ITS | Clinical Summary ---
Author Organization [employer] Address [address] [facility] [place] [address] [place] [address] Care Team Providers Care Fence Repairman Name Role Phone Ashley Frankel MD Primary Care Provider [phone] Hoangnovember Unavailable Kishore Dorsey MD Unavailable Raheel Gee Unavailable [phone] Riya Fulton Unavailable Sergio Hackett Unavailable [...] details unspecified 5 mg. 09/20/19 24 Active FreeStyle lancetsIndicati ons:Type 2 diabetes mellitus without complication, without long-term current use of insulin (HCC) 1 each by Other route 2 times daily. Use bid, dx type 2 diabetes 60 each 07/17/20 24 Active glucose blood (FREESTYLE LITE) test stripIndication s:Type 2 diabetes mellitus without complication, without long-term current use of insulin (HCC) USE TO TEST BLOOD SUGAR TWICE A DAY 100 strip 07/17/20 24 Active cetirizine (ZyrTEC) 10 MG tabletIndicatio ns:Allergic rhinitis, unspecified seasonality, unspecified trigger TAKE 1 TABLET BY MOUTH EVERY DAY NEEDED 90 tablet 09/18/19 25 Active famotidine (Pepcid) 40 MG tabletIndicatio ns:Gastroesopha geal reflux disease, unspecified whether esophagitis present TAKE 1 TABLET BY MOUTH EVERY DAY NEEDED FOR FOR HEARTBURN 09/19/19 25 Active traZODone (Desyrel) 50 MG tabletIndicatio ns:Anxiety 50 mg. 02/09/20 24 Active hydrOXYzine HCl (Atarax) 25 MG tabletIndicatio ns:Anxiety Take by mouth. Acti ve atorvastatin (Lipitor) 80 MG tabletIndicatio ns:Dyslipidemia Take 1 tablet (80 mg) by mouth Once per day. 90 tablet 3 10/24/19 25 Active lisinopril 40 MG tabletIndicatio ns:Primary hypertension Take 1 tab po qhs 90 tablet 3 10/24/19 25 Active Bisacodyl EC 5 MG EC tabletIndicatio ns:Constipation , unspecified constipation type Take 2 tablets (10 mg) by mouth at bedtime. 30 tablet 03/31/20 25 Active Senna-Time 8.6 MG tabletIndicatio ns:Constipation , unspecified constipation type Take 1 tablet (8.6 mg) by mouth if needed at bedtime for constipation. 30 tablet 2 03/31/20 25 Active amLODIPine (Norvasc) 10 MG tabletIndicatio ns:Primary hypertension Take 1 tablet (10 mg) by mouth Once per day. 90 tablet 3 03/31/20 25 2025 Active docusate sodium (Colace) 100 MG capsuleIndicati ons:Constipatio n, unspecified constipation type TAKE 1 CAPSULE BY MOUTH TWICE A DAY NEEDED FOR CONSTIPATION 180 capsule 1 06/02/20 Active docusate sodium (Colace) 100 MG capsuleIndicati ons:Constipatio n, unspecified constipation type Take 1 tab po bid prn constipation 60 capsule 1 03/31/20 25 2024 Discontinued Active Problems Patient Care Coordination No te Formatting of this note migh t be different from the original. [facility] Tool And Equipment Rental Clerk: Kamila, member services number [phone], provider services line, , option 4 Assisted Living Administrator Agency: refused services Problem Noted Date [...] Date PSA 0.69 08/13/2024 TSH 1.31 10/24/2024 [id number] NON-REACTIVE 02/13/2020 -continues to loose weight, has [...] Date PSA 0.69 08/13/2024 TSH 1.31 10/24/2024 [id number] NON-REACTIVE 02/13/2020 -continues to loose weight, has [...] -eye care facilitated by [facility] -dental home is [facility] -health care proxy paperwork given 11/13/2023, given again 07/17/24 Assessment & Plan (07/17/2024 10:32 AM EST): -next physical exam due after 07/17/25 -eye care facilitated by [facility] -dental home is [facility] -health care proxy paperwork given 11/13/2023, given again 07/17/24 Assessment & Plan (11/13/2023 10:07 AM EDT): -next physical exam due after 04/27/2024 -eye care facilitated by [facility] -dental home is [facility] -health care proxy paperwork given 11/13/2023 Assessment & Plan (04/27/2023 9:45 AM EDT): -next physical exam due after 04/27/2024. -eye care facilitated by [facility], last visit 01/16/2023 -dental home is [facility] Class 1 obesity 02/24/2023 Erectile dysfunction [...] the strong evidence that these meds prevent MA/CVA. Continue atorvastatin 80qhs. Encouraged to take. Anxiety [...] CT May 2021 -CT 01/24/[address] Raheel Gee MD, redemonstration of innumerable mixed calcified and noncalcified pulmonary nodules, not significantly changed compared to most recent CT chest from 08/09/2022, largest measuring 6 mm. -02/12/25ordered by cane furniture maker Dr. Raheel Gee MD IMPRESSION: 9.7 mm [...] getting tx for his neck. -Followed by [facility]. -Saw Dr. [...] getting tx for his neck. -Followed by [facility]. -Saw Dr. Evin Bhat at [facility] 02/2021 -referred to orthopedic on 11/13/2023 [...] getting tx for his neck. -Followed by [facility]. -Saw Dr. Evin Bhat at [facility] 02/2021 -referred to orthopedic on 11/13/2023 [...] getting tx for his neck. -Followed by [facility]. -Saw Dr. Evin Bhat at [facility] 02/2021 -referred to orthopedic on 11/13/2023 [...] getting tx for his neck. Followed by [facility]. Saw Dr. Evin Bhat at [facility] 02/2021 Assessment & Plan (04/27/2023 9:22 [...] getting tx for his neck. Followed by [facility]. Saw Dr. Evin Bhat at [facility] 02/2021 Assessment & Plan (11/07/2022 11:31 [...] getting tx for his neck. Followed by [facility]. Saw Dr. Evin Bhat at [facility] 02/2021 Mild intermittent asthma 10/14/2021 Overview (05/14/2025): -Followed by Dr. Raheel Gee at [facility] Pulmonology. Note from 05/14/25 reviewed -Well controlled [...] goal -Continue lifestyle modifications Patient reported at [facility] visit 02/14/25 self-discontinuation of amlodipine 10mg and chlorthalidone 25mg months ago; were formally discontinued at this visit Patient denied having started recent addition of spironolactone; [facility] formally discontinued and restarted amlodipine 5mg once [...] see Collaborative Drug Therapy Managment Program with YUE escudero PharmD(re-referred to Collaborative Drug Therapy Managment Program with YUE escudero PharmD 01/23/25) in the next couple days. -Seen on 02/14/25 by [facility], had been off medications for months and was restarted on amlodipine 5mg and continued lisinopril 40mg. -Elevated BP 03/31/25, will increase amlodipine to 10mg Assessment & Plan (03/31/2025 11:39 AM EDT): -Blood pressure is not at goal -Continue lifestyle modifications Patient reported at [facility] visit 02/14/25 self-discontinuation of amlodipine 10mg and chlorthalidone 25mg months ago; were formally discontinued at this visit Patient denied having started recent addition of spironolactone; [facility] and [facility]mg [...] see Collaborative Drug Therapy Managment Program with YUE escudero PharmD(re-referred to Collaborative Drug Therapy Managment Program with YUE escudero PharmD 01/23/25) in the next couple days. -Seen on 02/14/25 by [facility], had been off medications for months and [...] PharmD 01/23/25) in the next couple days. Assessment & Plan (10/24/2024 9:40 AM EST): -Blood pressure is not at goal -Continue lifestyle modifications -Continue current medications -Continue lisinopril 40mg daily -Continue amlodipine 10mg daily -Chlorthalidone 25mg started 04/27/2023. - Referred to Collaborative Drug Therapy Managment Program with YUE escudero PharmD 07/17/24 -BP elevated 158/88 10/24/24 -referred back [...] Managment Program with YUE escudero PharmD 07/17/24 - Ordered Labs 07/17/24 - Follow [...] right ureteroscopy laser lithotripsy stent insertion, 6 Vietnamese by [address] Mayda Rodriguez. [...] Encounters Date Type Department Care Team Description 06/02/2025 Telephone [facility] [address] [address] Ashley Frankel MD July Recalls 06/02/[address] [place] [address] [address] Ahsley Frankel MD Constipation, unspecified constipation type 05/27/2025 Orders Only [facility] External Provider, [facility] 05/07/[address] [place] [address] [address] Dominga Silva, PharmD 04/07/[address] [address] Ashley Frankel MD Results 03/31/2025 11:15 AM EDT Office Visit [address] [address] Ashley Frankel MD Primary hypertension (Primary Dx); DISH (diffuse idiopathic skeletal hyperostosis); Decreased range of motion of neck; Weight loss, non-intentional; Anemia, unspecified type; Renal cysts, acquired, bilateral; Benign prostatic hyperplasia with urinary obstruction; Hyperpigmented skin lesion; Constipation, unspecified constipation type 03/31/2025 Orders Only [address] [address] Ashley Frankel MD DISH (diffuse idiopathic skeletal hyperostosis) 03/31/2025 Travel 03/28/[address] [address] Ashley Frankel MD chartprep 03/21/2025 Patient Outreach [address] [address] Ashley Frankel MD Pre-visit Planning (SDOH screening was completed on 01/23/2025) 03/07/[address] [address] Ashley Frankel MD Appointment Request from Last [...] 9:30 AM EST Office Visit [facility] ADULT DENTAL [address] [place] [address] Jackie Peacock 09/08/2025 10:30 AM EST Office Visit [facility] OPTOMETRY [address] [place] [address] Bravo, Tania, OD [address] [place] [address] Health Maintenance Due Date Last Done Comments [...] years 1-dose series) 2024 COVID-19 Vaccine ( season) 2025 Influenza Vaccine [...] Procedure Name Priority Date/Time Associated Diagnosis Comments NM GASTRIC EMPTYING SOLID Routine 05/27/2025 7:58 AM EDT AMB REFERRAL TO ORTHOPAEDIC SURGERY Routine 05/26/2025 DISH (diffuse idiopathic skeletal hyperostosis) Decreased range of motion of neck XR CERVICAL SPINE 3V Routine 03/31/2025 11:51 AM EDT CBC WITH AUTO DIFFERENTIAL Routine 03/31/2025 11:30 AM EDT Primary hypertension POCT GLYCATED HEMOGLOBIN, TOTAL Routine 02/11/2025 9:17 AM EDT Type 2 diabetes mellitus with hyperlipidemia (CMS/HCC) (CMS/[facility]) PROPHYLAXIS - ADULT Routine 02/03/2025 9 :00 [...] Recently Relevant to Health Maintenance Results * NM Gastric Emptying Solid (05/27/2025 7:58 AM EDT) Anatomical Region Laterality Modality Body Nuclear Medicine 05/27/2025 7:58 AM EDT Narrative 05/27/2025 11:29 AM EDT [place] [address] Nuclear Medicine Report Signed Patient: Bobby Velasco MR#: [id number] : 1965 Acct:[id number] Age/Sex: 59 / M ADM Date: 05/27/25 Loc: [facility] Attending Dr: Sonya BARLOW Ordering Physician: Sonya Hoang Date of Service: 05/27/25 Procedure(s): NM gastric emptying study Accession Number(s): [id number] cc: Ashley Frankel MD; Sonya Hoang Reason for Exam: R68.81 - Early satiety EXAMINATION: NM RADIONUCLIDE SOLID FOOD GASTRIC EMPTYING 4-HOUR STUDY CLINICAL INFORMATION: R68.81 - Early satiety COMPARISON: There are no prior studies available for comparison. TECHNIQUE: A standard meal consisting of 4 oz of Egg Beaters brand tagged with 1 mCi Tc-99m Sulfur Colloid, 4 oz water and 2 slices of toast with jelly was administered orally to the patient. Images were obtained using a dual head gamma camera in the anterior and posterior projections over of the stomach immediately post ingestion and at hourly intervals up to 4 hours post ingestion. The anterior and posterior counts at each time interval were averaged using the geometric mean and expressed as percentage of the immediate post ingestion counts. FINDINGS: There is visualization of activity in the stomach immediately post ingestion. As the study progresses, there is clearance of activity from the stomach and visualization of progressively increasing small bowel activity. By the end of the study, there is almost no retention noted in the stomach. Retention in the stomach at each time interval was: 1 hour 33% (normal 37%-90%) 2 hours 2% (normal 30%-60%) 3 hours 1% NM/NM gastric emptying study IMPRESSION: Rapid gastric emptying. Gastric emptying study grading per JNMT Consensus Recommendations in 2008 (https://tech.snmjournals.org/content/36/44) Grade 1 (mild retention): 11-20% at 4h Grade 2 (moderate retention): 21-35% at 4h Grade 3 (severe retention): 36-50% at 4h Grade 4 (very severe retention): >50% retention at 4h Electronically signed by: George qOuendo MD 05/27/2025 11:26 AM EDT RP Dictated By: George Oquendo MD Signed By: <Electronically signed by George Oquendo MD in OV> 05/27/25 1126 DD/ 0758 TD/TT: 05/27/25 1115 Joint Cleaning Machine Operator: Procedure Note Donotuseinterpreter, Image - 05/27/2025 [place] [address] Nuclear Medicine Report Signed Patient: Pierce Velasco#: [id number] : 1965Acct:[id number] Age/Sex: 59 / MADM Date: 05/27/25 Loc: [facility] Attending Dr: Sonya BARLOW Ordering Physician: Sonya Hoang Date of Service: 05/27/25 Procedure(s): NM gastric emptying study Accession Number(s): [id number] cc: Ashley Frankel MD; Sonya Hoang Reason for Exam: R68.81 - Early satiety EXAMINATION: NM RADIONUCLIDE SOLID FOOD GASTRIC EMPTYING 4-HOUR STUDY CLINICAL INFORMATION: R6881 - Early satiety COMPARISON: There are no prior studies available for comparison. TECHNIQUE: A standard meal consisting of 4 oz of Egg Beaters brand tagged with 1 mCi Tc-99m Sulfur Colloid, 4 oz water and 2 slices of toast with jelly was administered orally to the patient. Images were obtained using a dual head gamma camera in the anterior and posterior projections over of the stomach immediately post ingestion and at hourly intervals up to 4 hours post ingestion. The anterior and posterior counts at each time interval were averaged using the geometric mean and expressed as percentage of the immediate post ingestion counts. FINDINGS: There is visualization of activity in the stomach immediately post ingestion. As the study progresses, there is clearance of activity from the stomach and visualization of progressively increasing small bowel activity. By the end of the study, there is almost no retention noted in the stomach. Retention in the stomach at each time interval was: 1 hour 33% (normal 37%-90%) 2 hours 2% (normal 30%-60%) 3 hours 1% NM/NM gastric emptying study IMPRESSION: Rapid gastric emptying. Gastric emptying study grading per JNMT Consensus Recommendations in 2008 (https://tech.snmjournals.org/content/36//44) Grade 1 (mild retention): 11-20% at 4h Grade 2 (moderate retention): 21-35% at 4h Grade 3 (severe retention): 36-50% at 4h Grade 4 (very severe retention): >50% retention at 4h Electronically signed by: George Oquendo MD 05/27/2025 11:26 AM EDT Dictated By: George Oquendo MD Signed By: <Electronically signed by George Oquendo MD in OV> 05/27/25 1126 DD/ 0758 TD/TT: 05/27/25 1115 Joint Cleaning Machine Operator: [employer] External Provider IMG NM PROCEDURES Edited Result - Final * Referral to Orthopaedic Surgery (05/26/2025) Ashley Frankel MD OUTPATIENT REFERRAL ORDERA BLES Final Result * XR CERVICAL SPINE 3V (03/31/2025 11:51 AM EDT) Anatomical Region Laterality Modality Abdomen Radiographic Hannah ging 03/31/2025 11:5 1 AM EDT Narrative 03/31/2025 12:23 PM EDT [address] [address] XRay Report Signed Patient: Bobby Velasco MR#: [id number] : 1965 Acct:[id number] Age/Sex: 59 / M ADM Date: 03/31/25 Loc: [facility] Attending Dr: Ashley Frankel MD Ordering Physician: Ashley Frankel MD Date of Service: 03/31/25 Procedure(s): XR cervical spine 3V Accession Number(s): [id number] cc: Ashley Frankel MD EXAMINATION: XR CERVICAL [...] 03/31/25 1219 DD/ 1151 TD/TT: 03/31/25 1200 Joint Cleaning Machine Operator: Procedure Note Donotuseinterpreter, Image - 03/31/[address] [address] XRay Report Signed Patient: Bobby VelascoMR#: [id number] : 1965Acct:[id number] Age/Sex: 59 / MADM Date: 03/31/25 Loc: HO.[facility] Attending Dr: Ashley Frankel MD Ordering Physician: Ashley Frankel MD Date of Service: 03/31/25 Procedure(s): XR cervical spine 3V Accession Number(s): [id number] cc: Ashley Frankel MD EXAMINATION: XR CERVICAL [...] 03/31/25 1219 DD/ 1151 TD/TT: 03/31/25 1200 Joint Cleaning Machine Operator: us Ashley Frankel MD IMG XR PROCEDURES Final Re sult * (ABNORMAL) CBC auto differential (03/31/2025 11:30 AM EDT) White Blood Count 4.0(L) 4.8 - 10.8 X10*3/uL [facility] Red Blood Count 4.41(L) 4.60 - 5.80 X10*6/uL [facility] Hemoglobin 13.4(L) 14.0 - 18.0 g/dl [facility] Hematocrit 40.2(L) 42.0 - 52.0 % [facility] Mean Corpuscular Volume 91.2 80.0 - 98.0 fL [facility] Mean Corpuscular Hemoglobin 30.4 27.0 - 33.0 pg [facility] Mean Corpuscular HGB Conc 33.3 31.0 - 36.0 g/dl [facility] Red Cell Distribution Width 12.9 11.0 - 16.0 % [facility] Platelet Count 252 160 - 400 X10*3/uL [facility] Mean Platelet Volume 10.7 9.4 - 12.4 fL [facility] Neutrophils Percent Auto 56.6 45 - 73 % [facility] Imm Gran Pct Auto 0.2 0.0 - 0.4 % [facility] Lymphocytes Percent Auto 30.4 20 - 40 % [facility] Monocytes Percent Auto 11.1(H) 2 - 11 % [facility] Eosinophils Percent Auto 1.5 0 - 4 % [facility] Basophils Percent Auto 0.2 0 - 2 % [facility] NRBC Pct Auto 0.0 0.0 - 0.2 /100WBC [facility] Neutrophils Absolute Auto 2.3 2.0 - 8.3 x10*3/uL [facility] Imm Gran Abs Auto 0.01 0.00 - 0.03 X10*3/uL [facility] Lymphocytes Absolute Auto 1.2 1.2 - 4.9 X10*3/uL [facility] Monocytes Absolute Auto 0.5 0.1 - 1.2 X10*3/uL [facility] Eosinophils Absolute Auto 0.1 0.0 - 0.4 X10*3/uL [facility] Basophils Absolute Auto 0.0 0.0 - 0.2 X10*3/uL [facility] NRBC Abs Auto 0.000 0.0 - 0.012 X10*3/uL [facility] Blood Venous blood specimen / Unknown 03/31/2025 11:30 AM EDT 03/31/2025 1:17 PM EDT Ashley Frankel MD LAB BLOOD ORDERABLES Final Result Performing Organization Address City/[facility] [address]/ZIP Co de Phone Number [facility] [address] [place] [phone] * (ABNORMAL) POCT HGB A1C (02/11/2025 9:17 AM EDT) Pathologist [facility] Hemoglobin A1C 6.1(A) 4.0 - 6.0 % QC Media Lot # [id number] Lot# Expiration Date [id number] Blood 02/11/2025 9:17 AM EDT Result [facility] Latia MCDANIEL POINT OF CARE TEST ENTER/EDIT OR DERABLES Final Result * HIV-1/2 Antigen and Antibodies, Fourth Generation, with Reflexes (10/24/2024 9:22 AM EST) [facility] HIV AB/AG Nonreactive Nonreactive [facility] Comment:HIV-1 p24 Ag and/or HIV-1/HIV-2 Ab not detected.A test result that is nonreactive does not exclude thepossibility of exposure to or infection with HIV-1 and/orHIV-2. Nonreactive results in this assay for individualswith prior exposure to HIV-1 and/or HIV-2 may be due toantigen and antibody levels that are below the limit ofdetection of this assay.The [employer] HIV Ag/Ab Combo assay result andsupplemental assay results should be interpreted inconjunction with the patient's clinical presentation,history and other laboratory results. If the results areinconsistent with clinical evidence, additional testing issuggested to confirm the result. Blood Venous blood specimen / Unknown 10/24/2024 9:22 AM EST 10/24/2024 11:48 AM EST Ashley Frankel MD LAB BLOOD ORDERABLES Final Result Performing Organization Address City/[facility] [address]/ZIP Co de Phone Number [facility] [address] [place] [phone] * Albumin, Random Urine W/Creatinine (08/13/2024 11:26 AM EST) Creatinine, Urine 73.67 mg/dL [facility] Microalbumin Urine 13.0 mg/L [facility] Microalbum Creatinine Ratio Ur 17.6 <30 ug/mg cr [facility] Comment:Albumin/Creatinine R atio Reference Ranges: Normal: < 30 ug/mg creatinine Microalbuminuria: 30 - 300 ug/mg creatinineClinical Albuminuria: > 300 ug/mg creatinine Urine 08/13/2024 11:2 6 AM EST 08/13/2024 1:00 PM EST Ashley Frankel MD LAB URINE ORDERABLES Final Result [facility] [address] [place] [phone] * (ABNORMAL) Lipid Panel, Standard (08/13/2024 11:26 AM EST) Triglycerides 86 <150 mg/dL [facility] Comment:Desirable Triglyceri de: less than 150 mg/dLBorderline High Triglyceride 150-199 mg/dLHigh Triglyceride: 200-499 mg/dLVery High Triglyceride: greater than or equal to 5OO mg/dL Cholesterol 146 <200 mg/dL [facility] Comment:Desirable Cholestero l: less than 200 mg/dLBorderline High Cholesterol: 200-239 mg/dLHigh Cholesterol: greater than 239 mg/dL LDL Cholesterol Calculated 96 <100 mg/dL [facility] Comment:Desirable LDL: less than 100 mg/dLNear Optimal/Above Optimal LDL: 110- 129 mg/dLBorderline High LDL: 130-159 mg/dLHigh LDL: 160-189 mg/dLVery High LDL: greater than or equal to 190 mg/dL HDL Cholesterol 33(L) >40 mg/dL [facility] Comment:Desirable HDL: great er than 40 mg/dL Note: This HDL assay may give artificially low results in patients with liver disease. Blood Venous blood specimen / Unknown 08/13/2024 11:26 AM EST 08/13/2024 12:59 PM EST Ashley Frankel MD LAB BLOOD ORDERABLES Final Result [facility] [address] [place] [phone] [phone] * Hm Colonoscopy (04/06/2023) Colonoscopy Normal Normal Historical Provider HEALTH MAINTENANCE Final Result * Hepatitis C Antibody with Reflex to HCV, RNA, Quantitative, Real-Time PCR (11/11/2022 8:59 AM EDT) Pathologist [facility] Hepatitis C Antibody NON-REACT KELSY NON-REACT KELSY [employer] Index 0.64 <1.00 [employer] Comment: HCV antibody was non-reactive. There is no laboratory evidence of HCV infection. In most cases, no further action is required. However, if recent HCV exposure is suspected, a test for HCV RNA (test code 83804) is suggested. For additional information please refer to http://education.[employer]/faq/QTA00n6 (This link is being provided for informational/ educational purposes only.) Blood Venous blood specimen / Unknown 11/11/2022 8:59 AM EDT 11/11/2022 8:59 AM EDT Narrative [facility] - 11/11/2022 9:36 PM EDT FASTING:YES FASTING: YES Ashley Frankel MD LAB BLOOD ORDERABLES Final Result [facility] [address] [place] [address] [employer] [address] [place] [address] from Last 3 Months or Most Recently Relevant to Health Maintenance Insurance [facility] < 65 DENTAL - [facility] Care Teams Fence Repairman Relationship Specialty Start Date End Date Smyth, MD Ashley [address] [place] [phone] PCP - General Family Medicine 08/28/[address] [place] [address] Gastroenterology 07/17/24 Kishore Dorsey MD [address] [place] [address] Urology 07/17/24 Raheel Gee [address] [place], [place] [address] Pulmonary Disease 07/17/24 Riya Fulton [address] [place] [address] Cardiology 07/17/24 Sergio Hackett [address] [place] [address] Orthopaedic Surgery 07/17/24 Raheel Slater [address] [place] [address] Podiatry 01/22/25 [facility] [place] Psychiatry 10/10/24
--- OUTSIDE RECORDS SUMMARY | 2025-06-03 10:37 | XMS_ITS | Encounter Summary ---
Author Organization [employer] Address [address] [facility] 7t [place] [address] Care Team Providers Care Nanny Babysitter Name Role Phone Ashley Frankel MD Primary Care Provider [phone]- [phone] Hoang, November Unavailable Kishore Dorsey MD Unavailable [phone] Raheel Gee Unavailable [phone] Riya Fulton Unavailable Sergio Hackett Unavailable Unavailable Dominga SilvaD Unavailable Raheel Slater Unavailable Encounter Details Date Type Department Care Team (Late st Contact Info) Description 07/18/2023 Telephone [facility] MEDICINE [address] [place] [address] Ashley Frankel MD [address] [place], [place] [phone] Social History Tobacco Use Types Packs/Day Years [...] Bia Rose - 08/10/2023 1:42 PM EST Private Branch Exchange Installer called pt to request verification of insurance/Medicare [...] Description 08/04/2025 9:30 AM EST Office Visit [facility] ADULT DENTAL [address] [place] [address] Jackie Peacock 09/08/2025 10:30 AM EST Office Visit [facility] OPTOMETRY [address] [place] [address] Tania Cordon OD [address] [place] [address] documented as of this encounter Visit Diagnoses Not on filedocumented in this encounter Care Teams Nanny Babysitter Relationship Specialty Start Date End Date Ashley Frankel MD [address] [place] [address] PCP - General Family Medicine 08/28/18 Sonya Hoang [address] [place] [address] Gastroenterology 07/17/24 Kishore Dorsey MD [address] [place] [address] Urology 07/17/24 Raheel Gee [address] [place], [place] [address] Pulmonary Disease 07/17/24 Riya Fulton [address] [address] Cardiology 07/17/24 Sergio Hackett [address] [facility] 2nd [place] [address] Orthopaedic Surgery 07/17/24 Dominga Silva PharmD [address] [place] [address] Pharmacist Internal Medicine 07/22/24 05/07/25 Raheel Slater [address] [address] Podiatry 01/22/25 [facility] 10/10/24 documented as of this encounter
== END 2025-06-03 09:48 | disposition home or self-care (01) ==
LOC: HO.HGI 09:25
PROVIDERS: PCP Family Medicine; Visit Provider Nurse Practitioner
DX: K21.9 Gastro-esophageal reflux disease without esophagitis (principal); K59.04 Chronic idiopathic constipation
CPT/HCPCS: 99213

== ENCOUNTER → 2025-06-03 09:25 | Outpatient (BNVA) | payer OTHER, SELFPAY | PROVIDERS: PCP Family Medicine; Visit Provider Nurse Practitioner | DX: K21.9 Gastro-esophageal reflux disease without esophagitis (principal); K59.04 Chronic idiopathic constipation | CPT/HCPCS: 99212 ==

== ENCOUNTER 2025-07-03 08:31 | Outpatient (REF) | payer OTHER, SELFPAY ==
--- OUTSIDE RECORDS SUMMARY | 2025-07-02 14:40 | XMS_ITS | Encounter Summary ---
Author Organization [employer] Address [address] [facility] 7t [place] [address] Care Team Providers Care Automation Tender Name Role Phone Ashley Frankel MD Primary Care Provider [phone] Viktor November Unavailable Kishore Dorsey MD Unavailable [phone] Raheel Gee Unavailable [phone] Riya Fulton Unavailable Sergio Hackett Unavailable Unavailable Raheel Slatre Unavailable Reason for Visit * Reason Comments shaky hands Encounter Details Date Type Department Care Team (Late st Contact Info) Description 07/02/2025 2:40 PM EST Office Visit [facility] [address] [place] [address] Tremor of both hands (Primary Dx); Cold extremities; Hypertension, unspecified type Social History Tobacco Use Types Packs/Day [...] the past 12 months, has t he [employer], gas, oil or water company threatened to [...] Sign Reading Time Taken Comments Blood Pressure 157/85 07/02/2025 2:49 PM EST Pulse 60 07/02/2025 2:49 PM EST Temperature 36.6 C (97.9 F) 07/02/2025 2:49 PM EST Respiratory Rate 20 07/02/2025 2:49 PM EST Oxygen Saturation 98% 07/02/2025 2:49 PM EST Inhaled Oxygen Concentration - - Weight 77.7 kg (171 lb 6.4 oz) 07/02/2025 2:49 P M EST Height 170.2 cm (5' 7 ) 07/02/2025 2:49 PM EST Body Mass Index 26.85 07/02/2025 2:49 PM EST documented in this encounter Plan of Treatment Upcoming Encounters Date Type Department Care Team (Late st Contact Info) Description 08/04/2025 9:30 AM EST Office Visit [facility] ADULT DENTAL [address] [place] [address] Jackie Peacock 09/03/2025 10:15 AM EST Office Visit [facility] MEDICINE [address] [place] [address] Ashley Frankel MD [address] [place] [address] 09/08/2025 10:30 AM EST Office Visit [facility] OPTOMETRY [address] [place] [address] Bravo, Tania, OD 230 [place] [address] Scheduled Orders Name Type Priority Associated Diagnoses Orde r Schedule TSH with Reflex to Free T4 Lab Routine Hypertension, unspecified type Tremor of both hands Cold extremities Expected: 07/02/2025 (Approximate), Expires: 07/02/2026 C-reactive Protein Lab Routine Hypertension, unspecified type Tremor of both hands Cold extremities Expected: 07/02/2025 (Approximate), Expires: 07/02/2026 Magnesium Lab Routine Hypertension, unspecified type Tremor of both hands Cold extremities Expected: 07/02/2025 (Approximate), Expires: 07/02/2026 Vitamin B12 Lab Routine Hypertension, unspecified type Tremor of both hands Cold extremities Expected: 07/02/2025 (Approximate), Expires: 07/02/2026 Comprehensive Metabolic Panel Lab Routine Hypertension, unspecified type Tremor of both hands Cold extremities Expected: 07/02/2025 (Approximate), Expires: 07/02/2026 DANIELA Screen,IFA, with Reflex to Titer and Pattern Lab Routine Tremor of both hands Cold extremities Expected: 07/02/2025 (Approximate), Expires: 07/02/2026 documented as of this encounter Visit Diagnoses Diagnosis Tremor of both hands- Primary Cold extremities Hypertension, unspecified type documented in this encounter Additional Health Concerns Assessment Noted Time PHQ-9 Depression Total Score: 0 07/17/20 24 10:33 AM EST documented as of this encounter Care Teams Automation Tender Relationship Specialty Start Date End Date Ashley Frankel MD [address] [place] [address] PCP - General Family Medicine 08/28/18 Viktor Sonya [address] [place] [address] 3rd [place] [address] Gastroenterology 07/17/24 Kishore Dorsey MD [address] [place] [address] Urology 07/17/24 Raheel Gee [address] [place] 10[address] Pulmonary Disease 07/17/24 Riya Fulton [address] 3rd [place] [address] Cardiology 07/17/24 Sergio Hackett [address] 2nd [place] [address] Orthopaedic Surgery 07/17/24 Raheel Slater [address] [address] Podiatry 01/22/25 [facility] 10/10/24 documented as of this encounter
--- OUTSIDE RECORDS SUMMARY | 2025-07-03 08:57 | XMS_ITS | Clinical Summary ---
Author Organization [address] [place] [address] Address [address] [place] [address] Phone Care Team Providers Care Polygraph Examiner Name Role Phone Ashley Frankel MD Primary Care Provider [phone] Allergies Active Allergy Reactions Criticality Noted Date Comments Clindamycin Anaphylaxis,Unknown High 03/29/2012 Doxycycline Diarrhea,Unknown Low 01/31/2023 Penicillins Anaphylaxis,Unknown High 04/06/2012 Other reaction(s): UNKNOWN REACTION-CHILDHOOD Medications No known medications Medical History Medical History Date Comments Hypertension Diabetes mellitus (CMS/[facility] V24, CMS/[facility] V28) Social History Tobacco Use Types [...] 1974 Diabetes: Annual Retina Eye Exam 1974 RSV Immunization Adult Patients (1 - Risk 50-74 years 1-dose series) 2014 Zoster Vaccines (1 of 2) 2014 Pneumococcal Vaccine: 50+ Years (2 of 2 - PCV) 05/14/2016 05/14/2015, 06/30/2006 Diabetes: Annual Urine Albumin-Creatinine Ratio (uACR) 08/09/2024 Medicare Annual Wellness Visit 08/09/2024 Social Influencers of Health Screening 08/09/2024 Depression Screening 08/28/2024 Diabetes: Blood Sugar Control [...] mmol/L LAB CHEMISTRY METHOD 10/12/2024 12:38 AM [facility] Potassium 4.3 3.5 - 5.5 mmol/L LAB CHEMISTRY METHOD 10/12/2024 12:38 AM [facility] Chloride 107 96 - 110 mmol/L LAB CHEMISTRY METHOD 10/12/2024 12:38 AM [facility] CO2 30 21 - 32 mmol/L LAB CHEMISTRY METHOD 10/12/2024 12:38 AM [facility] Anion Gap 1(L) 3 - 11 LAB CHEMISTRY METHOD 10/12/2024 12:38 AM [facility] Glucose 126(H) 70 - 100 mg/dL LAB CHEMISTRY METHOD 10/12/2024 12:38 AM [facility] BUN 15 5 - 25 mg/dL LAB CHEMISTRY METHOD 10/12/2024 12:38 AM [facility] Creatinine 1.15 0.70 - 1.30 mg/dL LAB CHEMISTRY METHOD 10/12/2024 12:38 AM [facility] eGFR 73 >=60 mL/min/1. 73m2 LAB CHEMISTRY METHOD 10/12/2024 12:38 AM [facility] Comment:Calculation based on the Chronic Kidney Disease Epidemiology Collaboration (CKD-EPI) equation refit without adjustment for race. BUN/Creatinine Ratio 13.0 LAB CHEMISTRY METHOD 10/12/2024 12:38 AM [facility] Calcium 9.8 8.5 - 10.5 mg/dL LAB CHEMISTRY METHOD 10/12/2024 12:38 AM [facility] AST (SGOT) 24 10 - 42 unit/L LAB CHEMISTRY METHOD 10/12/2024 12:38 AM [facility] ALT (SGPT) 22 10 - 60 unit/L LAB CHEMISTRY METHOD 10/12/2024 12:38 AM [facility] Alkaline Phosphatase 100 42 - 121 unit/L LAB CHEMISTRY METHOD 10/12/2024 12:38 AM [facility] Total Protein 6.9 6.0 - 8.0 g/dL LAB CHEMISTRY METHOD 10/12/2024 12:38 AM [facility] Albumin 3.9 3.2 - 5.0 g/dL LAB CHEMISTRY METHOD 10/12/2024 12:38 AM [facility] Total Bilirubin 0.6 0.0 - 1.4 mg/dL LAB CHEMISTRY METHOD 10/12/2024 12:38 AM [facility] Blood Venous blood specimen / Unknown Venipuncture / Unknown 10/11/2024 11:18 PM EST 10/11/2024 11:44 PM EST us Smith Quan MD LAB BLOOD ORDERABLES Final Result [facility] [address] [place] [address], [place] [phone] from Last 3 Months or Most Recently Relevant to Health Maintenance Insurance [facility] MEDICARE Member Subscriber Plan / Payer (Ef fective 2023-Present) Name:BOBBY WAY Relation to Subscriber:Self Name:Bobby Way Payer ID:[id number] Group ID:[id number] Type:Not on file Address: [place] [address] [address] [id number] Care Teams Polygraph Examiner Relationship Specialty Start Date End Date Stanford, MD Ashley [address] [place] [address] PCP - General Family Medicine 08/09/24
--- OUTSIDE RECORDS SUMMARY | 2025-07-03 08:58 | XMS_ITS | Encounter Summary ---
Author Organization [employer] Address [address] [place] [address] 7t [place] [address] Care Team Providers Care Floor Tiling Professional Name Role Phone Ashley Frankel MD Primary Care Provider [phone] Viktor November Unavailable Kishore Dorsey MD Unavailable Raheel Gee Unavailable [phone] Riya Fulton Unavailable Sergio Hackett Unavailable Unavailable Dominga Silva PharmD Unavailable Raheel Slater Unavailable Encounter Details Date Type Department Care Team (Late st Contact Info) Description 09/13/2022 Abstract [facility] MEDICINE [address] [place] [address] Ashley Frnakel MD [address] [place], [place] [phone] Social History Tobacco Use Types Packs/Day Years [...] 08/04/2025 9:30 AM EST Office Visit [facility] ADULT DENTAL [address] [place] [address] Jackie Peacock 09/03/2025 10:15 AM EST Office Visit [facility] MEDICINE [address] [place] [address] Ashley Frankel MD [address] [place] [address] 09/08/2025 10:30 AM EST Office Visit [facility] OPTOMETRY [address] [place] [address] Bravo, Tania, OD [address] [place] [address] documented as of this encounter Procedures Procedure Name Priority Date/Time Associated Diagnosis Comments COLONOSCOPY Routine 09/06/2012 documented in this encounter Results * Colonoscopy (09/06/2012) Colonoscopy normal with Dr. Barrera Historical Provider HEALTH MAINTENANCE Final Result documented in this encounter Visit Diagnoses Not on filedocumented in this encounter Care Teams Floor Tiling Professional Relationship Specialty Start Date End Date Ashley Frankel MD [address] [place] [address] PCP - General Family Medicine 08/28/18November [address] [place] [address] Gastroenterology 07/17/24 Kishore Dorsey MD [address] [place] [address] Urology 07/17/24 Raheel Gee 5 [place] [address] Pulmonary Disease 07/17/24 Riya Fulton [address] 3rd [place] [address] Cardiology 07/17/24 Sergio Hackett [address]nd [place] [address] Orthopaedic Surgery 07/17/24 Dominga Silva PharmD [address] [place] [address] Pharmacist Internal Medicine 07/22/24 05/07/25 Raheel Slater [address] [address] Podiatry 01/22/25 [facility] 10/10/24 documented as of this encounter
--- OUTSIDE RECORDS SUMMARY | 2025-07-03 08:58 | XMS_ITS | Encounter Summary ---
Author Organization [employer] Address [address] [facility] 7t [place] [address] Care Team Providers Care Nail Expert Name Role Phone Ashley Frankel MD Primary Care Provider [phone]- [phone] November Unavailable Kishore Dorsey MD Unavailable [phone] Raheel Gee Unavailable [phone] Riya Fulton Unavailable Sergio Hackett Unavailable Unavailable Raheel Slater Unavailable Encounter Details Date Type Department Care Team (Latest Contact Info) Description 07/02/2025 Travel Social History Tobacco Use Types Packs/Day [...] Description 08/04/2025 9:30 AM EST Office Visit [facility] ADULT DENTAL [address] [place] [address] Jackie Peacock 09/03/2025 10:15 AM EST Office Visit [facility] MEDICINE [address] [place] [address] Ashley Frankel MD [address] [place] [address] 09/08/2025 10:30 AM EST Office Visit [facility] OPTOMETRY [address] [place] [address] Bravo, Tania, OD [address] [place] [address] documented as of this encounter Visit Diagnoses Not on filedocumented in this encounter Additional Health Concerns Assessment Noted Time PHQ-9 Depression Total Score: 0 07/17/20 24 10:33 AM EST documented as of this encounter Care Teams Nail Expert Relationship Specialty Start Date End Date Ashley Frankel MD [address] [place] [address] PCP - General Family Medicine 08/28/18 Sonya Hoang [address] 3rd [place] [address] Gastroenterology 07/17/24 Kishore Dorsey MD [address] [place] [address] Urology 07/17/24 Raheel Gee 5 [place] [address] Pulmonary Disease 07/17/24 Riya Fulton [address]rd [place] [address] Cardiology 07/17/24 Sergio Hackett [address]nd [place] [address] Orthopaedic Surgery 07/17/24 Raheel Slater [address] [address] Podiatry 01/22/25 [facility] [place] Psych[facility]ry 10/10/24 documented as of this encounter
--- OUTSIDE RECORDS SUMMARY | 2025-07-03 08:58 | XMS_ITS | Clinical Summary ---
Author Organization [employer] Address [address] [facility] 7t [place] [address] Care Team Providers Care Food Stylist Name Role Phone Ashley Frankel MD Primary Care Provider [phone] November Unavailable Kishore Dorsey MD Unavailable Raheel Gee Unavailable [phone] Riya Fulton Unavailable Sergio Hackett Unavailable [...] symptom details unspecified 5 mg. 024 Active FreeStyle lancetsIndicati ons:Type 2 diabetes [...] SUGAR TWICE A DAY 100 strip 11 Active cetirizine (ZyrTEC) 10 MG tabletIndicatio ns:Allergic rhinitis, unspecified seasonality, unspecified trigger TAKE 1 TABLET BY MOUTH EVERY DAY NEEDED 90 tablet 025 Active famotidine (Pepcid) 40 MG tabletIndicatio ns:Gastroesopha geal reflux disease, unspecified whether esophagitis present TAKE 1 TABLET BY MOUTH EVERY DAY NEEDED FOR FOR HEARTBURN 025 Active traZODone (Desyrel) 50 MG tabletIndicatio ns:Anxiety 50 mg. 024 Active hydrOXYzine HCl (Atarax) 25 MG tabletIndicatio ns:Anxiety Take by mouth. Acti ve atorvastatin (Lipitor) 80 MG tabletIndicatio ns:Dyslipidemia Take 1 tablet (80 mg) by mouth Once per day. 90 tablet 3 025 Active lisinopril 40 MG tabletIndicatio ns:Primary hypertension Take 1 tab po qhs 90 tablet 3 025 Active Bisacodyl EC 5 MG EC tabletIndicatio ns:Constipation , unspecified constipation type Take 2 tablets (10 mg) by mouth at bedtime. 30 tablet 025 Active amLODIPine (Norvasc) 10 MG tabletIndicatio ns:Primary hypertension Take 1 tablet (10 mg) by mouth Once per day. 90 tablet 3 025 2025 Active docusate sodium (Colace) 100 MG capsuleIndicati ons:Constipatio n, unspecified constipation type TAKE 1 CAPSULE BY MOUTH TWICE A DAY NEEDED FOR CONSTIPATION 180 capsule 1 025 Active Senna-Time 8.6 MG tabletIndicatio ns:Constipation , unspecified constipation type TAKE 1 TABLET (8.6 MG) BY MOUTH IF NEEDED AT BEDTIME FOR CONSTIPATION. 30 tablet 2 Active Blood Pressure kit 1 each 2 times daily. 1 kit 025 2025 Active Senna-Time 8.6 MG tabletIndicatio ns:Constipation , unspecified constipation type Take 1 tablet (8.6 mg) by mouth if needed at bedtime for constipation. 30 tablet 2 025 2024 Discontinued Blood Pressure kit 1 each 2 times daily. 1 kit 025 2024 Discontinued(R eorder (will not trigger notification to Pharmacy)) Active Problems Patient Care Coordination No te Formatting of this note migh t be different from the original. [facility] Dye Can Operator: Kamila, member services number [phone], provider services line, , option 4 [employer]: refused services Problem Noted Date Diagnosed Date Chronic constipation 06/04/2025 Overview (06/04/2025): -followed by VIOLETA Neville seen 06/01/25 . Per note, the Linzess but at 145 micro g it has not made a big difference, increased the dose to the next step which is 290 micro g. Anemia 03/31/2025 Overview (03/31/2025): Lab Results Component [...] Date PSA 0.69 08/13/2024 TSH 1.31 10/24/2024 [id number] NON-REACTIVE 02/13/2020 -continues to loose weight, has [...] Date PSA 0.69 08/13/2024 TSH 1.31 10/24/2024 [id number] NON-REACTIVE 02/13/2020 -continues to loose weight, has [...] Removal 2021. New found mass on left oriental orthodox. - Referred to Plastic Surgery 07/16/24 Assessment & Plan (07/17/2024 10:23 AM EST): Removal 2021. New found mass on left oriental orthodox. - Referred to Plastic Surgery 07/16/24 Cardiac [...] due after 07/17/25 -eye care facilitated by [facility] -dental home is [facility] -health care proxy paperwork given 11/13/2023, given again 07/17/24 Assessment & Plan (07/17/2024 10:32 AM EST): -next physical exam due after 07/17/25 -eye care facilitated by [facility] -dental home is [facility] -health care proxy paperwork given 11/13/2023, given again 07/17/24 Assessment & Plan (11/13/2023 10:07 AM EDT): -next physical exam due after 04/27/2024 -eye care facilitated by [facility] -dental home is [facility] -health care proxy paperwork given 11/13/2023 Assessment & Plan (04/27/2023 9:45 AM EDT): -next physical exam due after 04/27/2024. -eye care facilitated by [facility], last visit 01/16/2023 -dental home is [facility] Class 1 obesity 02/24/2023 Erectile dysfunction 11/09/2022 [...] the strong evidence that these meds prevent SD/CVA. Continue atorvastatin 80qhs. Encouraged to take. Anxiety [...] CT May 2021 -CT 01/24/24 ordered by electrical engineering draftsperson Dr. Raheel Gee MD, redemonstration of innumerable mixed calcified and noncalcified pulmonary nodules, not significantly changed compared to most recent CT chest from 08/09/2022, largest measuring 6 mm. -02/12/25ordered by electrical engineering draftsperson Dr. Raheel Gee MD IMPRESSION: 9.7 mm [...] for his neck. -Followed by [facility]. -Saw Dr. Evin Bhat at [facility] 02/2021 -referred to orthopedic on 11/13/2023 - [...] for his neck. -Followed by [facility]. -Saw Dr. Evin Bhat at [facility] 02/2021 -referred to orthopedic on 11/13/2023 - [...] for his neck. -Followed by [facility]. -Saw Dr. Evin Bhat at [facility] 02/2021 -referred to orthopedic on 11/13/2023 - [...] for his neck. -Followed by [facility]. -Saw Dr. Evin Bhat at [facility] 02/2021 -referred to orthopedic on 11/13/2023 Assessment [...] for his neck. Followed by [facility]. Saw Dr. Evin Bhat at [facility] 02/2021 Assessment & Plan (04/27/2023 9:22 AM [...] for his neck. Followed by [facility]. Saw Dr. Evin Bhat at [facility] 02/2021 Assessment & Plan (11/07/2022 11:31 AM [...] for his neck. Followed by [facility]. Saw Dr. Evin Bhat at [facility] 02/2021 Mild intermittent asthma 10/14/2021 Overview (05/14/2025): -Followed by Dr. Raheel Gee at [facility]. Note from 05/14/25 reviewed -Well [...] Assessment & Plan (11/09/2022 11:15 AM EDT): Sensorineural hearing loss (SNHL) of both ears 0 01/16/2018 Overview (06/10/2025): Sensorineural hearing loss, bilateral; Note: Date Diagnosed: 01/16/2018 3:42 PM (H90.3) Tinnitus of right ear 01/16/2018 Overview (06/10/2025): Tinnitus, right ear; Note: Date Diagnosed: 01/16/2018 3:42 PM (H93.11) Hypertension 10/03/2012 Overview (03/31/2025): -Blood pressure is not at goal -Continue lifestyle modifications Patient reported at [facility] visit 02/14/25 self-discontinuation of amlodipine 10mg and chlorthalidone 25mg months ago; were formally discontinued at this visit Patient denied having started recent addition of spironolactone; [facility] formally discontinued and restarted amlodipine 5mg [...] next couple days. -Seen on 02/14/25 by [facility], had been off medications for months and was restarted on amlodipine 5mg and continued lisinopril 40mg. -Elevated BP 03/31/25, will increase amlodipine to 10mg Assessment & Plan (03/31/2025 11:39 AM EDT): -Blood pressure is not at goal -Continue lifestyle modifications Patient reported at [facility] visit 02/14/25 self-discontinuation of amlodipine 10mg and chlorthalidone 25mg months ago; were formally discontinued at this visit Patient denied having started recent addition of spironolactone; [facility] formally discontinued and restarted amlodipine 5mg [...] next couple days. -Seen on 02/14/25 by [facility], had been off medications for months and [...] our YUE Cronin 07/17/24 -BP elevated 158/88 10/24/24, and again [...] Assessment & Plan (11/09/2022 11:12 AM EDT): Type 2 diabetes mellitus wit hout complication, without long-term current use of insulin 09/28/2012 Overview (06/10/2025): Diabetes is controlled on diet and exercise alone. Lab Results Component Value Date HGBA1C 6.1 (A) 02/11/2025 HGBA1C 6.2 (H) 08/13/2024 HGBA1C 6.1 (H) 07/17/2024 Lab Results Component Value Date CREATININE 1.09 02/15/2025 EGFR >60 02/15/2025 MICROALBCREU 17.6 08/13/2024 MICROALBCREU 28.4 07/17/2024 LDLCHOLCAL [...] right ureteroscopy laser lithotripsy stent insertion, 6 [place] by [address] Mayda Rodriguez. [...] Encounters Date Type Department Care Team Description 07/02/2025 2:40 PM EST Office Visit [facility] [address] [place] [address] Tremor of both hands (Primary Dx); Cold extremities; Hypertension, unspecified type 07/02/2025 Travel 07/02/2025 Refill [facility] [address] [place] [address] Ashley Frankel MD Constipation, unspecified constipation type 06/23/2025 Telephone [facility] [address], [place] [phone] Ashley Frankel MD August Recalls 06/23/2025 Travel 06/02/2025 Telephone [facility] [address], [place] [phone] Ashley Frankel MD July Recalls 06/02/2025 Refill [facility] [address] [place] [address] Ashley Frankel MD Constipation, unspecified constipation type 05/27/2025 Orders Only [facility] External Provider, [facility] 05/07/2025 Telephone [facility] [address] [place] [address] Dominga Silva, PharmD 04/07/2025 Telephone [facility] [address] [place] [address] Ashley Frankel MD Results from Last 3 Months Immunizations Immunization Administration [...] Mass Index 26.85 07/02/2025 2:49 PM EST Plan of Treatment Upcoming Encounters Date Type Department Care Team (Late st Contact Info) Description 08/04/2025 9:30 AM EST Office Visit [facility] ADULT DENTAL [address] [place] [address] Jackie Peacock 09/03/2025 10:15 AM EST Office Visit [facility] [address] [place] [address] Ashley Frankel MD [address] [place] [address] 09/08/2025 10:30 AM EST Office Visit [facility] OPTOMET[facility] [address] [place], [place] [phone] Bravo, Tania, OD [address] [place], [place] [phone] Health Maintenance Due Date Last Done Comments [...] 1-dose series) 2024 COVID-19 Vaccine ( - 2023- season) 2025 Influenza Vaccine (#1) 2025 9, 05/18/2018, 05/31/2017, Additional history exists Dental X-Ray: Bitewings 05/04/2025 05/03/2024, 10/24 Eye Exam 06/19/2025 06/19/2024, 05/29, 06/19/2024, Additional history exists Depression Screening 07/17/2025 07/17/2024, 07/17/20 24 Diabetes: Foot Exam 07/17/2025 07/17/2024, 07/17/2024, 07/17/2024, Additional history exists Dental Oral Exam 08/06/2025 02/03/2025, 01/2024, 10/24/2022 Dental Prophylaxis 08/06/2025 02/03/2025, 0 05/03/2024, 01/30/2023 Diabetes: Hemoglobin A1C 08/13/202502/11/ 025, 08/13/2024, 07/17/2024, Additional history exists Diabetes: Urine Protein Screening 08/13/2025 08/13/2024, 07/17/2024, 06/29/2023, Additional history exists Lipid Panel 08/13/2025 08/13/2024, 06/29, 06/29/2023, Additional history exists Alcohol/Substance Use Screening 10/24/2025 10/24/2024 Disability Screening 01/23/2026 01/23/2025 SDOH Screening 01/23/2026 01/23/2025 Tobacco Screening 07/02/2026 07/02/2025 DTaP/Tdap/Td Vaccines (3 - Td or Tdap) [...] hyperostosis) Decreased range of motion of neck POCT GLYCATED HEMOGLOBIN, TOTAL Routine 02/11/2025 9:17 AM EDT Type 2 diabetes mellitus with hyperlipidemia (CMS/HCC) (CMS/HCC) PROPHYLAXIS - ADULT Routine 02/03/2025 9 :00 [...] AM EDT Narrative 05/27/2025 11:29 AM EDT [place] [address] Nuclear Medicine Report Signed Patient: Bobby Velasco MR#: [id number] : 1965 Acct:[id number] Age/Sex: 59 / M ADM Date: 05/27/25 Loc: [facility] Attending Dr: Sonya BARLOW Ordering Physician: Soyna Hoang Date of Service: 05/27/25 Procedure(s): NM gastric emptying study Accession Number(s): [id number] cc: Ashley Frankel MD; Sonya Hoang Reason [...] grading per JNMT Consensus Recommendations in 2008 (https://tech.snmjournals.org/content/36/1/44) Grade 1 (mild retention): 11-20% at 4h Grade 2 (moderate retention): 21-35% at 4h Grade 3 (severe retention): 36-50% at 4h Grade 4 (very severe retention): >50% retention at 4h Electronically signed by: George Oquendo MD 05/27/2025 11:26 AM EDT Dictated By: George Oquendo MD Signed By: <Electronically signed by George Oquendo MD in OV> 05/27/25 1126 DD/ 0758 TD/TT: 05/27/25 1115 Abstract Checker: Procedure Note Donotuseinterpreter, Image - 05/27/[address] [address] Nuclear Medicine Report Signed Patient: Pierce Velasco#: [id number] : 1965Acct:[id number] Age/Sex: 59 / MADM Date: 05/27/25 Loc: [facility] Attending Dr: Sonya BRALOW Ordering Physician: Sonya Hoang Date of Service: 05/27/25 Procedure(s): NM gastric emptying study Accession Number(s): [id number] cc: Ashley Frankel MD; Sonya Hoang Reason [...] hours 2% (normal 30%-60%) 3 hours 1% AL/AL gastric emptying study IMPRESSION: Rapid gastric emptying. Gastric emptying study grading per JNMT Consensus Recommendations in 2008 (https://tech.snmjournals.org/content/36/1/44) Grade 1 (mild retention): 11-20% at 4h Grade 2 (moderate retention): 21-35% at 4h Grade 3 (severe retention): 36-50% at 4h Grade 4 (very severe retention): >50% retention at 4h Electronically signed by: George Oquendo MD 05/27/2025 11:26 AM EDT Dictated By: George Oquendo MD Signed By: <Electronically signed by George Oquendo MD in OV> 05/27/25 1126 DD/ 0758 TD/TT: 05/27/25 1115 Abstract Checker: Result [facility] External Provider IMG NM PROCEDURES Edited Result - Final * Referral to Orthopaedic Surgery (05/26/2025) Result [facility] Ashley Frankel MD OUTPATIENT REFERRAL ORDERA BLES Final Result * (ABNORMAL) POCT HGB A1C (02/11/2025 9:17 AM EDT) Hemoglobin A1C 6.1(A) 4.0 - 6.0 % QC Media Lot # [id number] Lot# Expiration Date ,[id number] Blood 02/11/2025 9:17 AM EDT Result [facility] Latia MCDANIEL POINT OF CARE TEST ENTER/EDIT OR DERABLES Final Result * HIV-1/2 Antigen and Antibodies, Fourth Generation, with Reflexes (10/24/2024 9:22 AM EST) Pathologist [facility] HIV AB/AG Nonreactive Nonreactive [facility] Comment:HIV-1 p24 Ag and/or HIV-1/HIV-2 Ab not detected.A test result that is nonreactive does not exclude thepossibility of exposure to or infection with HIV-1 and/orHIV-2. Nonreactive results in this assay for individualswith prior exposure to HIV-1 and/or HIV-2 may be due toantigen and antibody levels that are below the limit ofdetection of this assay.The [employer] HIV Ag/Ab Combo assay result andsupplemental assay results should be interpreted inconjunction with the patient's clinical presentation,history and other laboratory results. If the results areinconsistent with clinical evidence, additional testing issuggested to confirm the result. Blood Venous blood specimen / Unknown 10/24/2024 9:22 AM EST 10/24/2024 11:48 AM EST Result [facility] Ashley Frankel MD LAB BLOOD ORDERABLES Final Result [facility] [address] [place] [phone] [phone] * Albumin, Random Urine W/Creatinine (08/13/2024 11:26 AM EST) Creatinine, Urine 73.67 mg/dL [facility] Microalbumin Urine 13.0 mg/L [facility] Microalbum Creatinine Ratio Ur 17.6 <30 ug/mg cr [facility] Comment:Albumin/Creatinine R atio Reference Ranges: Normal: < 30 ug/mg creatinine Microalbuminuria: 30 - 300 ug/mg creatinineClinical Albuminuria: > 300 ug/mg creatinine Urine 08/13/2024 11:2 6 AM EST 08/13/2024 1:00 PM EST us Ashley Frankel MD LAB URINE ORDERABLES Final Result Performing Organization Address [facility] de Phone Number [facility] [address] [place] [phone] * (ABNORMAL) Lipid Panel, Standard (08/13/2024 11:26 AM EST) Triglycerides 86 <150 mg/dL [facility] Comment:Desirable Triglyceri de: less than 150 mg/dLBorderline High Triglyceride 150-199 mg/dLHigh Triglyceride: 200-499 mg/dLVery High Triglyceride: greater than or equal to 5OO mg/dL Cholesterol 146 <200 mg/dL [facility] Comment:Desirable Cholestero l: less than 200 mg/dLBorderline High Cholesterol: 200-239 mg/dLHigh Cholesterol: greater than 239 mg/dL LDL Cholesterol Calculated 96 <100 mg/dL [facility] Comment:Desirable LDL: less than 100 [...] Frankel MD LAB BLOOD ORDERABLES Final Result [facility] [address] [place] [phone] * Hm Colonoscopy (04/06/2023) Colonoscopy Normal Normal Moncho Bishop MD HEALTH MAINTENANCE Final Result * Hepatitis C Antibody with Reflex to HCV, RNA, Quantitative, Real-Time PCR (11/11/2022 8:59 AM EDT) Hepatitis C Antibody NON-REACT KELSY NON-REACT KELSY Path.To Index 0.64 <1.00 Path.To Comment: HCV antibody was non-reactive. There is no laboratory evidence of HCV infection. In most cases, no further action is required. However, if recent HCV exposure is suspected, a test for HCV RNA (test code 51611) is suggested. For additional information please refer to http://education.Databraid/faq/SCP43q1 (This link is being provided for informational/ educational purposes only.) Blood Venous blood specimen / Unknown 11/11/2022 8:59 AM EDT 11/11/2022 8:59 AM EDT Narrative [facility] - 11/11/2022 9:36 PM EDT FASTING:YES FASTING: YES Ashley Frankel MD LAB BLOOD ORDERABLES Final Result Performing Organization Address City/[facility]/ZIP Co de Phone Number [facility] [address], [place] [address] [employer] [place] [employer] [address] [place] [address] from Last 3 Months or Most Recently Relevant to Health Maintenance Insurance [facility] < [address] [facility] Care Teams Food Stylist Relationship Specialty Start Date End Date [place], MD Ashley [address] [place] [phone] PCP - General Family Medicine 08/28/18 Sonya Hoang [address] 3rd [place] [address] Gastroenterology 07/17/24 Kishore Dorsey MD [address] [place] [address] Urology 07/17/24 Raheel Gee [address] [place], [place] [address] Pulmonary Disease 07/17/24 Riya Fulton [address] 3rd [place] [address] Cardiology 07/17/24 Sergio Hackett [address]nd [place] [address] Orthopaedic Surgery 07/17/24 Raheel Slater [address] [address] Podiatry 01/22/25 [facility] 10/10/24
--- OUTSIDE RECORDS SUMMARY | 2025-07-03 08:58 | XMS_ITS | Encounter Summary ---
Author Organization [employer] Address [address] [facility] 7t [place] [address] Care Team Providers Care Supervisor Game Farm Name Role Phone Ashley Frankel MD Primary Care Provider [phone] Viktor November Unavailable Kishore Dorsey MD Unavailable [phone] Raheel Gee Unavailable [phone] Riya Fulton Unavailable Sergio Hackett Unavailable Unavailable Dominga Silva PharmD Unavailable Raheel [place] Unavailable Encounter Details Date Type Department Care Team (Latest Contact Info) Description 07/04/2019 Abstract [facility] CONVERSIONS Dental, Provider, DDS Social [...] Description 08/04/2025 9:30 AM EST Office Visit [facility] ADULT DENTAL [address] [place] [address] Jackie Peacock 09/03/2025 10:15 AM EST Office Visit [facility] MEDICINE [address] [place], [place] [phone] Ashley Frankel MD [address] [place] [address] 09/08/2025 10:30 AM EST Office Visit [facility] OPTOMETRY [address] [place] [address] Tania Cordon, OD [address] [place] [address] documented as of this encounter Visit Diagnoses Not on filedocumented in this encounter Care Teams Supervisor Game Farm Relationship Specialty Start Date End Date Ashley Frankel MD [address] [place] [address] PCP - General Family Medicine 08/28/18 Viktor Sonya [address] [address] Gastroenterology 07/17/24 Kishore Dorsey MD [address] [facility] [address] [place] [address] Urology 07/17/24 Raheel Gee [address] [place], [place] [address] Pulmonary Disease 07/17/24 Riya Fulton [address] [address] Cardiology 07/17/24 Sergio Hackett [address] [place] [address] Orthopaedic Surgery 07/17/24 Dominga Silva, Mehrdad [address] [place] [address] Pharmacist Internal Medicine 07/22/24 05/07/25 Raheel Slater [address] [place] [phone] Podiatry 01/22/25 [facility] 10/10/24 documented as of this encounter
--- OUTSIDE RECORDS SUMMARY | 2025-07-03 08:58 | XMS_ITS | Encounter Summary ---
Author Organization [employer] Address [address] [facility] 7t [place] [address] Care Team Providers Care Supervisor Filling And Packing Name Role Phone Ashley Frankel MD Primary Care Provider [phone] Viktor November Unavailable Kishore Dorsey MD Unavailable [phone] Raheel Gee Unavailable [phone] Riya Fulton Unavailable Sergio Hackett Unavailable Unavailable Dominga Silva PharmD Unavailable Raheel [place] Unavailable Encounter Details Date Type Department Care Team (Latest Contact Info) Description 06/08/2022 Abstract [facility] CONVERSIONS Dental, Provider, DDS Social History [...] Description 08/04/2025 9:30 AM EST Office Visit [facility] ADULT DENTAL [address] [place], [place] [phone] Jackie Peacock 09/03/2025 10:15 AM EST Office Visit [facility] MEDICINE [address] [place], [place] [phone] Ashley Frankel MD [address] [place] [address] 09/08/2025 10:30 AM EST Office Visit [facility] OPT[facility] [address] [place] [address] Tania Cordon, OD [address] [place] [address] documented as of this encounter Visit Diagnoses Not on filedocumented in this encounter Care Teams Supervisor Filling And Packing Relationship Specialty Start Date End Date Ashley Franekl MD [address] [place] [address] PCP - General Family Medicine 08/28/18 Viktor Sonya [address] [address] Gastroenterology 07/17/24 Kishore Dorsey MD [address] [address] Urology 07/17/24 Raheel Gee [address] [place], [place] [address] Pulmonary Disease 07/17/24 Riya Fulton [address] [address] Cardiology 07/17/24 Sergio Hackett [address] [place] [address] Orthopaedic Surgery 07/17/24 Dominga Silva, Mehrdad [address] [place] [address] Pharmacist Internal Medicine 07/22/24 05/07/25 Raheel [place] [address] [place] [address] Podiatry 01/22/25 [facility] 10/10/24 documented as of this encounter
--- OUTSIDE RECORDS SUMMARY | 2025-07-03 08:58 | XMS_ITS | Encounter Summary ---
Author Organization [employer] Address 75 [facility] 7t [place] [address] Care Team Providers Care Senior Marketing Analyst Name Role Phone Ashley Frankel MD Primary Care Provider [phone]- [phone] Viktor November Unavailable Kishore Dorsey MD Unavailable Raheel Gee Unavailable [phone] Riya Fulton Unavailable Sergio Hackett Unavailable Unavailable Dominga Silva PharmD Unavailable Raheel Slater Unavailable Encounter Details Date Type Department Care Team (Late st Contact Info) Description 07/25/2022 Abstract [facility] ADULT DENTAL [address] [place] [address] Dental, Provider, DDS Social History Tobacco Use [...] 08/04/2025 9:30 AM EST Office Visit [facility] ADULT DENTAL [address] [place] [address] Jackie Peacock 09/03/2025 10:15 AM EST Office Visit [facility] MEDICINE [address] [place] [address] Ashley Frankel MD 230 [place], [place] [phone] 09/08/2025 10:30 AM EST Office Visit [facility] OPTOMETRY [address] [place], [place] [phone] Bravo, Tania, OD 230 [place] [address] documented as of this encounter Procedures Procedure [...] on filedocumented in this encounter Care Teams Senior Marketing Analyst Relationship Specialty Start Date End Date Ashley Frankel MD 230 [place], [place] [phone] PCP - General Family Medicine 08/28/18 Viktor Sonya [address] 3rd [place] [address] Gastroenterology 07/17/24 Kishore Dorsey MD [address] [place] [address] Urology 07/17/24 Raheel Gee 5 [place], [place] 10[address] Pulmonary Disease 07/17/24 Riya Fulton [address] 3rd [place] [address] Cardiology 07/17/24 Sergio Hackett [facility] 2nd [place] [address] Orthopaedic Surgery 07/17/24 Dominga Silva, Mehrdad 230 [place] [address] Pharmacist Internal Medicine 07/22/24 05/07/25 Raheel Slater [address] [address] Podiatry 01/22/25 [facility] 10/10/24 documented as of this encounter
--- OUTSIDE RECORDS SUMMARY | 2025-07-03 08:58 | XMS_ITS | Encounter Summary ---
Author Organization [employer] Address 75 [facility] 7t [place] [address] Care Team Providers Care Nursery Teacher Name Role Phone Ashley Frankel MD Primary Care Provider [phone]- [phone] Hoang, November Unavailable Kishore Dorsey MD Unavailable Raheel Gee Unavailable [phone] Riya Fulton Unavailable Sergio Hackett Unavailable Unavailable Dominga SilvaD Unavailable Raheel Slater Unavailable Encounter Details Date Type Department Care Team (Late st Contact Info) Description 07/18/2023 Telephone [facility] MEDICINE [address] [place] [address] Ashley Frankel MD [address] [place], [place] [phone] Social History Tobacco Use Types Packs/Day Years [...] Bia Rose - 08/10/2023 1:42 PM EST Shoe Cementer called pt to request verification of insurance/Medicare [...] Description 08/04/2025 9:30 AM EST Office Visit [facility] ADULT DENTAL 230 [place] [address] Jackie Peacock 09/03/2025 10:15 AM EST Office Visit [facility] MEDICINE 230 [place] [address] Ashley Frankel MD 230 [place] [address] 09/08/2025 10:30 AM EST Office Visit [facility] OPTOMETRY [address] [place] [address] Tania Cordon, OD 230 [place] [address] documented as of this encounter Visit Diagnoses Not on filedocumented in this encounter Care Teams Nursery Teacher Relationship Specialty Start Date End Date Ashley Frankel MD 230 [place] [address] PCP - General Family Medicine 08/28/18 Viktor November 11 [facility] 3rd [place] [address] Gastroenterology 07/17/24 Kishore Dorsey MD 10 [facility] [address] [place] [address] Urology 07/17/24 Raheel Gee 5 [place] 10[address] Pulmonary Disease 07/17/24 Riya Fulton [address] [address] Cardiology 07/17/24 Sergio Hackett 300 [address] [place] [address] Orthopaedic Surgery 07/17/24 Dominga Silva PharmD 230 [place] [address] Pharmacist Internal Medicine 07/22/24 05/07/25 Raheel Slater [address] [address] Podiatry 01/22/25 [facility] 10/10/24 documented as of this encounter
--- OUTSIDE RECORDS SUMMARY | 2025-07-03 08:58 | XMS_ITS | Encounter Summary ---
Author Organization [employer] Address 75 [facility] 7t [place] [address] Care Team Providers Care Driller Operator Name Role Phone Ashley Frankel MD Primary Care Provider [phone]- [phone] November Unavailable Kishore Dorsey MD Unavailable Raheel Gee Unavailable [phone] Riya Fulton Unavailable Sergio Hackett Unavailable Unavailable Dominga SilvaD Unavailable Raheel Slater Unavailable Reason for Visit * Reason Comments Med Refill Encounter Details Date Type Department Care Team (Late st Contact Info) Description 07/24/2023 Refill [facility] 230 [place], [place] [phone] [facility] 230 [place], [place] [phone] Prostatitis, acute Social History Tobacco Use Types [...] Description 08/04/2025 9:30 AM EST Office Visit [facility] ADULT DENTAL 230 [place] [address] Jackie Peacock 09/03/2025 10:15 AM EST Office Visit [facility] MEDICINE 230 [place] [address] Ashley Frankel MD 230 [place] [address] 09/08/2025 10:30 AM EST Office Visit [facility] OPTOMETRY 267 [place] [address] Tania Cordon, OD 230 [place] [address] documented as of this encounter Visit Diagnoses Diagnosis Prostatitis, acute Acute prostatitis documented in this encounter Care Teams Driller Operator Relationship Specialty Start Date End Date Ashley Frankel MD [address] [place] [address] PCP - General Family Medicine 08/28/[address] 3rd [place] [address] Gastroenterology 07/17/24 Kishore Dorsey MD [address] [place] [address] Urology 07/17/24 Raheel Gee 5 [place], [place] 10[address] Pulmonary Disease 07/17/24 Riya Fulton [address] 3rd [place] [address] Cardiology 07/17/24 Sergio Hackett 300 [facility] 2nd [place] [address] Orthopaedic Surgery 07/17/24 Dominga Silva PharmD 230 [place] [address] Pharmacist Internal Medicine 07/22/24 05/07/25 Raheel Slater [address] [address] Podiatry 01/22/25 [facility] 10/10/24 documented as of this encounter
--- OUTSIDE RECORDS SUMMARY | 2025-07-03 08:58 | XMS_ITS | Encounter Summary ---
Author Organization [employer] Address 75 [facility] 7t [place] [address] Care Team Providers Care Manager Costing Name Role Phone Ashley Frankel MD Primary Care Provider [phone]- [phone] Viktor November Unavailable Kishore Dorsey MD Unavailable [phone] Raheel Gee Unavailable [phone] Riya Fulton Unavailable Sergio Hackett Unavailable Unavailable Dominga Silva PharmD Unavailable Raheel Slater Unavailable Reason for Visit * Reason Comments Med Change Request Encounter Details Date Type Department Care Team ([facility] st Contact Info) Description 07/12/2023 Refill [facility] MEDICINE 230 [place], [place] [phone] Ashley Frankel MD 230 [place], [place] [phone] Social History Tobacco Use Types Packs/Day Years [...] 9:30 AM EST Office Visit [facility] ADULT DENTAL 230 [place] [address] Jackie Peacock 09/03/2025 10:15 AM EST Office Visit [facility] MEDICINE 230 [place] [address] Ashley Frankel MD 230 [place] [address] 09/08/2025 10:30 AM EST Office Visit [facility] OPTOMETRY [address] [place] [address] Bravo, Tania, OD 230 [place] [address] documented as of this encounter Visit Diagnoses Not on filedocumented in this encounter Care Teams Manager Costing Relationship Specialty Start Date End Date Ashley Frankel MD 230 [place] [address] PCP - General Family Medicine 08/28/18 Viktor November [address] [place] [address] 3rd [place] [address] Gastroenterology 07/17/24 Kishore Dorsey MD [address] [place] [address] Urology 07/17/24 Raheel Gee 5 [place], [place] 10[address] Pulmonary Disease 07/17/24 Riya Fulton [address] 3rd [place] [address] Cardiology 07/17/24 Sergio Hackett 300 [facility] 2nd [place] [address] Orthopaedic Surgery 07/17/24 Dominga Silva PharmD 230 [place] [address] Pharmacist Internal Medicine 07/22/24 05/07/25 Raheel Slater [address] [address] Podiatry 01/22/25 [facility] 10/10/24 documented as of this encounter
--- OUTSIDE RECORDS SUMMARY | 2025-07-03 08:58 | XMS_ITS | Encounter Summary ---
Author Organization [employer] Address 75 [facility] 7t [place] [address] Care Team Providers Care Lead Project Engineer Name Role Phone Ashley Frankel MD Primary Care Provider [phone]- [phone] HoangNovember Unavailable Kishore Dorsey MD Unavailable Raheel Gee Unavailable [phone] Riya Fulton Unavailable Sergio Hackett Unavailable Unavailable Raheel Slater Unavailable Reason for Visit * Reason Comments Med Refill Encounter Details Date Type Department Care Team (Late st Contact Info) Description 07/02/2025 Refill [facility] [address] [place], [place] [phone] Ashley Frankel MD 230 [place], [place] [phone] Constipation, unspecified constipation type Social History Tobacco [...] Description 08/04/2025 9:30 AM EST Office Visit [facility] ADULT D[facility] [address] [place] [address] Jackie Peacock 09/03/2025 10:15 AM EST Office Visit [facility] MED[facility] [address] [place] [address] Ashley Frankel MD 230 [place] [address] 09/08/2025 10:30 AM EST Office Visit [facility] OPTOMETRY 267 [place] [address] Tania Cordon OD 230 [place] [address] documented as of this encounter Visit Diagnoses Diagnosis Constipation, unspecified constipation type documented in this encounter Additional Health Concerns Assessment Noted Time PHQ-9 Depression Total Score: 0 07/17/20 10:33 AM EST documented as of this encounter Care Teams Lead Project Engineer Relationship Specialty Start Date End Date Ashley Frankel MD 230 [place] [address] PCP - General Family Medicine 08/28/18November [address] 3rd [place] [address] Gastroenterology 07/17/24 Kishore Dorsey MD [address] [place] [address] Urology 07/17/24 Raheel Gee 5 [place], [place] [address] Pulmonary Disease 07/17/24 Riya Fulton [address] [address] Cardiology 07/17/24 Sergio Hackett [address] [place] [address] Orthopaedic Surgery 07/17/24 Raheel Slater [address] [address] Podiatry 01/22/25 [facility] Psych[facility] 10/10/24 documented as of this encounter
--- OUTSIDE RECORDS SUMMARY | 2025-07-03 08:59 | XMS_ITS | Encounter Summary ---
Author Organization [employer] Address [address] [place] [address] 7t [place] [address] Care Team Providers Care Fisheries Technician Name Role Phone Ashley Frankel MD Primary Care Provider [phone]- [phone] Viktor November Unavailable Kishore Dorsey MD Unavailable Raheel Gee Unavailable [phone] Riya Fulton Unavailable Sergio Hackett Unavailable Unavailable Dominga Silva PharmD Unavailable Raheel Slater Unavailable Encounter Details Date Type Department Care Team (Late Contact Info) Description 04/07/2023 Abstract [facility] MEDICINE 230 [place], [place] [phone] Ashley Frankel MD 230 [place], [place] [phone] Social History Tobacco Use Types Packs/Day Years [...] Description 08/04/2025 9:30 AM EST Office Visit [facility] ADULT DENTAL 230 [place] [address] Peacock, Jackie 09/03/2025 10:15 AM EST Office Visit [facility] MEDICINE 230 [place] [address] Ashley Frankel MD 230 [place] [address] 09/08/2025 10:30 AM EST Office Visit [facility] OPTOMETRY [address] [place] [address] Bravo, Tania, OD 230 [place] [address] documented as of this encounter Procedures Procedure Name Priority Date/Time Associated Diagnosis Comments COLONOSCOPY Routine 04/06/2023 documented in this encounter Results * Colonoscopy (04/06/2023) Colonoscopy Normal Normal us Historical Provider HEALTH MAINTENANCE Final Result documented in this encounter Visit Diagnoses Not on filedocumented in this encounter Care Teams Fisheries Technician Relationship Specialty Start Date End Date Ashley Frankel MD 230 [place] [address] PCP - General Family Medicine 08/28/18November [address] 3rd [place] [address] Gastroenterology 07/17/24 Kishore Dorsey MD [address] [place] [address] Urology 07/17/24 Raheel Gee 5 [place], [place] 10[address] Pulmonary Disease 07/17/24 Riya Fulton [address] 3rd [place] [address] Cardiology 07/17/24 Sergio Hackett [address] [place] [address] Orthopaedic Surgery 07/17/24 Dominga Silva PharmD 230 [place] [address] Pharmacist Internal Medicine 07/22/24 05/07/25 Raheel Slater [address] [address] Podiatry 01/22/25 De. [facility] Psych[facility] 10/10/24 documented as of this encounter
--- OUTSIDE RECORDS SUMMARY | 2025-07-03 08:59 | XMS_ITS | Encounter Summary ---
Author Organization [employer] Address 75 [facility] 7t [place] [address] Care Team Providers Care Savings Teller Name Role Phone Ashley Frankel MD Primary Care Provider [phone]- [phone] November Unavailable Kishore Dorsey MD Unavailable Raheel Gee Unavailable [phone] Riya Fulton Unavailable Sergio Hackett Unavailable Unavailable Dominga Silva PharmD Unavailable [phone] Raheel Slater Unavailable Encounter Details Date Type Department Care Team (Late st Contact Info) Description 02/01/2023 Telephone [facility] MEDICINE [address] [place], [place] [phone] Ashley Frankel MD 230 [place], [place] [phone] Social History Tobacco Use Types Packs/Day Years [...] Description 08/04/2025 9:30 AM EST Office Visit [facility] ADULT DENTAL 230 [place] [address] Peacock, Jackie 09/03/2025 10:15 AM EST Office Visit [facility] MEDICINE [address] [place] [address] Ashley Frankel MD 230 [place] [address] 09/08/2025 10:30 AM EST Office Visit [facility] OPTOMETRY [address] [place] [address] Bravo, Tania, OD 230 [place] [address] documented as of this encounter Visit Diagnoses Not on filedocumented in this encounter Care Teams Savings Teller Relationship Specialty Start Date End Date Ashley Frankel MD 230 [place] [address] PCP - General Family Medicine 08/28/18 Viktor Sonya [address] [address] Gastroenterology 07/17/24 Kishore Dorsey MD [address] [place] [address] Urology 07/17/24 Raheel Gee 5 [place] [address] Pulmonary Disease 07/17/24 Riya Fulton 11 [facility] 3rd [place] [address] Cardiology 07/17/24 Sergio Hacektt [address] 2nd [place] [address] Orthopaedic Surgery 07/17/24 Dominga Silva, Mehrdad 230 [place] [address] Pharmacist Internal Medicine 07/22/24 05/07/25 Raheel Slater [address] [address] Podiatry 01/22/25 [facility] Psych[facility] 10/10/24 documented as of this encounter
[2025-07-03 12:05] LABS: Alanine Aminotransferase 16 U/L (0-40); Albumin Level 4.3 g/dL (3.5-5.0); Alkaline Phosphatase 103 U/L (39-117); Anion Gap 10 (12-20); Aspartate Amino Transferase 25 U/L (5-37); Blood Urea Nitrogen 18 mg/dL (9-16); Calcium 9.3 mg/dL (8.4-10.2); Carbon Dioxide 29 mmol/L (22-29); Chloride 107 mmol/L (96-108); Estimated Glomerular Filt Rate > 60; Magnesium 2.2 mg/dL (1.6-2.6); Potassium 3.7 mmol/L (3.3-5.1); Sodium 142 mmol/L (135-145); Total Protein 7.0 g/dL (6.5-8.0)
[2025-07-03 12:16] LABS: Vitamin B12 337 pg/mL (200-900)
[2025-07-08 22:04] LABS: Anti Nuclear Antibody Screen NEGATIVE (NEGATIVE)
== END 2025-07-03 08:32 | disposition home or self-care (01) ==
LOC: HO.HHCL 08:31
PROVIDERS: Emergency Medicine; PCP Family Medicine; Visit Provider Family Medicine
DX: Z01.84 Encounter for antibody response examination (principal); I10 Essential (primary) hypertension; R25.1 Tremor, unspecified; R20.9 Unspecified disturbances of skin sensation
CPT/HCPCS: 36415; 80053; 82607; 83735; 84443; 86038; 86140

== ENCOUNTER 2025-07-17 09:29 | Outpatient (AMB) | payer OTHER, SELFPAY ==
[2025-07-17 09:32] VITALS: BP 153/75; BMI 26.2
--- NOTE | 2025-07-17 09:32 | A.OFFVIS_ITS ---
Vital Signs 07/17/25 09:32 Height 5 ft 7 in Weight 167 lb BMI 26.2 BP 153/75 H Blood Pressure Location Rt brachial Position Sitting Intake Visit Reasons: 6wks Intake Note: This patient presents for a follow-up of constipation. CC: Pt states that he went to the clinic a few weeks ago because he was still having constipation and was prescribed fiber. Per patient he d/c the Linzess because it wasn't working well for his constipation. Brake Machine Operator Required: No Accompanied by: Self / Same As Patient Allergies amoxicillin (AMOXICILLIN) Allergy (Severe, Verified 07/17/25 09:48) ANAPHYLAXIS Penicillins Allergy (Severe, Verified 07/17/25 09:48) UNKNOWN REACTION-CHILDHOOD doxycycline (From VIBRAMYCIN) Adverse Reaction (Mild, Verified 07/17/25 09:48) DIARRHEA Clindamycin HCl Allergy (Severe, Uncoded 06/03/25 09:30) Anaphylaxis HPI HPI 6wks: Details: Assessment & Plan (1) GERD (gastroesophageal reflux disease): Code(s): K21.9 - Gastro-esophageal reflux disease without esophagitis Category: Medical (2) Chronic idiopathic constipation: Code(s): K59.04 - Chronic idiopathic constipation Category: Medical Plan Taiwanese # Rosa Maria live He received the Linzess but at 145 micro g it has not made a big difference. He does feel it may have helped just a little so I think we need to increase the dose to the next step which is 290 micro g. He is agreeable to this. We review the gastric emptying study any in fact has a rapid gastric emptying so gastroparesis is not part of why he is having poor intestinal motility. He continues on his omeprazole with good control of his GERD. Return office visit in 6 weeks Medications: New linaclotide (Linzess) 290 mcg PO QAM 30 caps 6RF 30 days K59.04 - Chronic idiopathic constipation Refilled omeprazole 20 mg PO DAILY 30 caps 6RF 30 days Discontinued linaclotide (Linzess) Take first thing in the morning with a full glass of water. Discontinued Reason: Doctor's Order 145 mcg PO QAM 30 caps 6RF K59.04 - Chronic idiopathic constipatio TODAYS VISIT Taiwanese # declines [facility] Medical History Rectal bleeding Constipation Renal calculus, right Opacity of lung on imaging study Pre-op examination GERD (gastroesophageal reflux disease) Orchialgia Weak urinary stream Asthma Nasal polyps Diabetes HTN (hypertension) Pulmonary nodules Surgical History Hx of colonoscopy History of esophagogastroduodenoscopy (EGD) H/O wrist surgery Family History Father Diabetes Hypertension Mother Hypertension Hyperlipidemia Brother Hypertension Family/Other Kidney stones Prostate cancer Bladder cancer Renal cancer Social History Household Members: None Housing: Apartment Alcohol intake: former Patient Tobacco Use Status: Former Tobacco user Tobacco use type: Cigarette Years Smoked: 30 years service: No Review of Systems Const Denies fatigue, Denies fever(s), Denies night sweats, Denies poor appetite and D enies weight loss ENT Reports Normal hearing present, Denies dental pain, Denies dysphagia, Denies hearing loss, Denies mouth pain, Denies odynophagia, Denies throat swelling, Denies tongue swelling and Reports other (Dentition adequate) Card Reports no additional complaints Resp Reports no additional complaints GI Details: Denies abdominal pain, Denies melena, Denies bloating, Denies hematochezia, Reports constipation, Denies GI cramping, Denies dysphagia, Denies excessive flatus, Denies early satiety, Denies heartburn, Denies diarrhea, Denies nausea, Denies odynophagia, Denies vomiting and Denies hematemesis Skin/Breast Denies pruritus, Denies lesions, Denies rash and Denies jaundice Neuro Reports Normal hearing present and Denies Abnormal speech present Endo Denies fatigue Aller/Immun Denies throat swelling and Denies tongue swelling Physical Exam Vital Signs: Last Vital Signs BP 153/75 H 07/17/25 09:32 BMI result Body Mass Index 26.2 Const General: cooperative, no acute distress, well developed and well groomed Nutritional Appearance: well nourished Orientation/consciousness: oriented to person, oriented to place and oriented to time Limitations: No language barrier HEENT Head: Yes normocephalic and Yes atraumatic Eyes General: appearance normal, both eyes and all related structures Pupils: Equal, round and reactive pupils present Neck Neck: Yes normal visual inspection and Yes no lymphadenopathy Thyroid: Thyroid normal Resp Effort & Inspection: normal respiratory effort and able to speak in complete sentences Auscultation: clear to auscultation bilaterally Cardio Rate: regular rate Rhythm: regular rhythm Heart sounds: Normal, physiologic split S2 sound present Peripheral pulses: radial pulses present and posterior tibial pulses present GI Inspection: No distended and No Abdominal panniculus present Palpation (GI): Soft to palpation, nontender, no guarding, not rigid and No hepatosplenomegaly present Percussion: Yes normal to percussion Auscultation: normal bowel sounds Rectal Exam - Male: Yes deferred Skin General skin exam: no rashes or lesions noted, turgor normal, skin not dry, no jaundice, No spider nevi and no striae Rashes: no rashes Nails: normal Neuro General: oriented to person, oriented to place and oriented to time Cranial nerves: Yes Equal, round and reactive pupils present and Yes Normal hearing present Speech: No Abnormal speech present Extrem General: Yes normal to inspection, No clubbing, No cyanosis and No edema Psych Appearance: grossly normal and well kempt Mental Status: mental status grossly normal Speech and movement: Normal speech and movement present Affect: normal affect Attitude: cooperative Thought process: Normal thought process present and not confabulating Thought content: Normal thought content present Insight: Limited insight present (Psych) Judgement: Limited judgement present (Psych) Assessment & Plan Assessment & Plan (1) GERD (gastroesophageal reflux disease): Code(s): K21.9 - Gastro-esophageal reflux disease without esophagitis Category: Medical (2) Chronic idiopathic constipation: Code(s): K59.04 - Chronic idiopathic constipation Category: Medical Plan Taiwanese # declines Subjective Patient presents for follow-up of chronic constipation. Reports that increasing Linzess did not provide complete relief. Alternates between different laxatives at home; had been avoiding taking them together. Endorses difficulty passing stool and straining, describing stools as not moving well. Notes abdominal pain, sometimes after eating and sometimes around bowel movements. Visited a walk-in clinic where fiber was recommended. Asked whether it is safe to combine medications and sought clarification on dosing and timing. Agreed to take Linzess daily and incorporate fiber, with the option to add a stimulant laxative if needed. Objective - Gastric emptying study: Faster than normal. Assessment & Plan Chronic constipation with associated abdominal pain: Incomplete response to linaclotide monotherapy; patient experiences straining and difficulty with stool passage. Gastric emptying study showed [id number] emptying; I advised this may improve as bowel regimen becomes consistent. - Continue linaclotide (Linzess) 290 mcg once daily in the morning on an empty stomach with a full glass of water; take daily consistently for cumulative effect. - Add daily fiber supplement; take Linzess first, then fiber after approximately 30 minutes. - May add a stimulant laxative at night if needed (senna or bisacodyl); acceptable to use Linzess + fiber + one stimulant laxative on the same day. Titrate to effect and avoid diarrhea. - Patient to verify Linzess capsule strength marked ?290? and inform me which stimulant laxative is being used so the medication list can be updated. - Follow-up in 8 weeks to assess response and adjust regimen as needed. (patient seems to have some memory issues) Coding Level of Care Code Est Pt Level 3 (45037) Diagnoses GERD (gastroesophageal reflux disease) K21.9 Chronic idiopathic constipation K59.04
== END 2025-07-17 10:16 | disposition home or self-care (01) ==
LOC: HO.HGI 09:30
PROVIDERS: PCP Family Medicine; Visit Provider Nurse Practitioner
DX: K21.9 Gastro-esophageal reflux disease without esophagitis (principal); K59.04 Chronic idiopathic constipation
CPT/HCPCS: 99213

== ENCOUNTER → 2025-07-17 09:29 | Outpatient (BNVA) | payer OTHER, SELFPAY | PROVIDERS: PCP Family Medicine; Visit Provider Nurse Practitioner | DX: K21.9 Gastro-esophageal reflux disease without esophagitis (principal); K59.04 Chronic idiopathic constipation | CPT/HCPCS: 99212 ==

== ENCOUNTER 2025-07-23 13:01 | Outpatient (AMB) | payer OTHER, SELFPAY ==
--- NOTE | 2025-07-23 13:05 | A.OFFVIS_ITS ---
Intake Visit Reasons: Plasma Button Discussion/PVR/UA(set) Intake Note: Reason for Visit: Plasma Button Discussion/PVR/UA Follow Up Urology Meds: Terazosin Blood Thinners: None Labs: Last PSA: 0.69 (08/13/2024) Imaging: None Last PVR: None PVR: 0ml Allergies amoxicillin (AMOXICILLIN) Allergy (Severe, Verified 07/17/25 09:48) ANAPHYLAXIS Penicillins Allergy (Severe, Verified 07/17/25 09:48) UNKNOWN REACTION-CHILDHOOD doxycycline (From VIBRAMYCIN) Adverse Reaction (Mild, Verified 07/17/25 09:48) DIARRHEA Clindamycin HCl Allergy (Severe, Uncoded 06/03/25 09:30) Anaphylaxis HPI Comments Details: Bobby is a very pleasant male. He is a patient of Dr Frankel. He is seen in the office today for the following urologic conditions. - lower urinary tract symptoms - erectile dysfunction - nephrolithiasis Is considering Procedure Minimal benefit with terazosin He will contact us via and ready to move ahead with plasma button Office cystoscopy with high-riding bladder neck Urinary Symptoms Review - Difficulty with urination due to high-riding bladder neck - Frequent urination reported Nephrolithiasis Imaging - 10/22 Right kidney at 11 cm with moderate to severe hydroureteronephrosis. 4 x 7 x 9 mm stone in the distal ureter. - 02/19 renal ultrasound no evidence of stones bilateral Intervention - 10/22 Right ureteroscopy Composition - 10/22 right ureteral stone fragments--Calcium Oxalate Dihydrate (Weddellite) 20%, Calcium Oxalate Monohydrate (Whewellite) 80% Erectile dysfunction background type 2 diabetes Progressive 09/19 response to high-dose daily Cialis Labs - 08/20 T 320 PSA 0.7 Lower Urinary Tract Symptoms:? Current visit is for?further evaluation of, lower urinary tract symptoms, predominate obstructive symptoms ?- less nocturia.? Current treatment includes?medication, alpha jesus - tamsulosin 0.4 mg ? Symptoms include?09/16 , weak stream, straining, and are progressing ?10/17 improved stream Labs - 07/17 0.9, 09/20 0.9 ? Associated conditions? diabetes ?Yes ? erectile dysfunction ?Yes Office cystoscopy 10/22 Stone had been found at time of bladder ultrasound Prostate with volume 43 mL. Postvoid bladder volume 8 mL ? Treatment plan?daily tadalafil medications.? PFSH Medical History Rectal bleeding Constipation Renal calculus, right Opacity of lung on imaging study Pre-op examination GERD (gastroesophageal reflux disease) Orchialgia Weak urinary stream Asthma Nasal polyps Diabetes HTN (hypertension) Pulmonary nodules Surgical History Hx of colonoscopy History of esophagogastroduodenoscopy (EGD) H/O wrist surgery Family History Father Diabetes Hypertension Mother Hypertension Hyperlipidemia Brother Hypertension Family/Other Kidney stones Prostate cancer Bladder cancer Renal cancer Social History Household Members: None Housing: Apartment Alcohol intake: former Patient Tobacco Use Status: Former Tobacco user Tobacco use type: Cigarette Years Smoked: 30 years service: No Review of Systems Const Denies chills and Denies fever(s) Card Reports no additional complaints and Denies syncope Resp Denies cough GI Denies abdominal pain and Denies heartburn Reports as per HPI and Denies change in libido Neuro Denies syncope Psych Denies change in libido Endo Denies change in libido Physical Exam Const General: cooperative, healthy appearing, comfortable and no acute distress Orientation/consciousness: patient oriented x3 HEENT Face and sinus: Yes normal facial exam Mouth: moist mucous membranes Neck Neck: Yes normal visual inspection, Yes full ROM and Yes trachea midline Chest Chest palpation & inspection: normal inspection of the chest Resp Effort & Inspection: normal respiratory effort, able to speak in complete sentences and no respiratory distress GI Inspection: Yes normal to inspection Back/Spine/Pelvis Cervical Spine: normal cervical lordosis Thoracic/Lumbar Spine: thoracic and lumbar spine normal to inspection Skin General skin exam: no rashes or lesions noted Neuro General: patient oriented x3, gait normal, tone normal and moves all extremities Extrem General: Yes normal to inspection and Yes capillary refill normal Office Procedures Post Void Residual Post Residual Void Post Void Residual (PVR): 0 15107-Itaq Void Residual by ultrasound Assessment & Plan Assessment & Plan (1) BPH w urinary obs/LUTS: Code(s): N40.1 - Benign prostatic hyperplasia with lower urinary tract symptoms; N13.8 - Other obstructive and reflux uropathy Category: Medical (2) Nocturia more than twice per night: Code(s): R35.1 - Nocturia Category: Medical Plan 12 month follow-up Orders: Orders AMB Post Void Residual by ultrasound Today N13.8 - Other obstructive and reflux uropathy, N40.1 - Benign prostatic hyperplasia with lower urinary tract symptoms Patient Instructions: This note is constructed using voice recognition software. While every effort has been made to ensure accuracy real estate associate errors may have been included. Imaging studies, laboratory and physical exam results were discussed and reviewed in detail. No major barriers to patient understanding were identified. An opportunity to ask questions regarding the treatment plan was provided. All questions were answered. The patient expressed understanding and agreement with the above treatment plan. The patient is aware they should contact our office by phone for worsening of their current condition or the appearance of new urologic symptoms. Compliance is encouraged with any medications and followup testing that is ordered. It is a privilege to participate in the urologic care of your patient. If you have any questions or concerns regarding treatment for the above conditions, or other urologic issues, please do not hesitate to contact me. The office telephone contact is [phone]. Sincerely, Dr Kishore Dorsey MD, [facility] - Urology Compassionate Specialist Care for the Genitourinary System Coding Level of Care Code Est Pt Level 3 (85263) Diagnoses BPH w urinary obs/LUTS N40.1; N13.8 Nocturia more than twice per night R35.1 CPT Codes Post Residual Void - PVR CPT Code: 07089-Topv Void Residual by ultrasound ([id number])
--- OUTSIDE RECORDS SUMMARY | 2025-07-23 16:06 | XMS_ITS | Encounter Summary ---
Author Organization [facility] Address [address] [facility] [address] [place] [address] Care Team Providers Care Shot Dropper Name Role Phone Ashley Frankel MD Primary Care Provider [phone] Viktor November Unavailable Kishore Dorsey MD Unavailable [phone] Raheel Gee Unavailable [phone] Riya Fulton Unavailable Sergio Hackett Unavailable Unavailable Dominga Silva PharmD Unavailable Raheel Slater Unavailable Reason for Visit * Reason Comments Med Change Request Encounter Details Date Type Department Care Team ([facility] st Contact Info) Description 07/12/2023 Refill [facility] MEDICINE [address] [place], [place] [phone] Ashley Frankel MD [address] [place], [place] [phone] Social History Tobacco Use Types Packs/Day Years [...] 9:30 AM EST Office Visit [facility] ADULT DENTAL [address] [place] [address] Jackie Peacock 09/03/2025 10:15 AM EST Office Visit [facility] MEDICINE [address] [place] [address] Ashley Frankel MD [address] [place] [address] 09/08/2025 10:30 AM EST Office Visit [facility] OPTOMETRY [address] [place] [address] Bravo, Tania, OD [address] [place] [address] documented as of this encounter Visit Diagnoses Not on filedocumented in this encounter Care Teams Shot Dropper Relationship Specialty Start Date End Date Ashley Frankel MD [address] [place] [address] PCP - General Family Medicine 08/28/18 Viktor November [address] [place] [address] 3rd [place] [address] Gastroenterology 07/17/24 Kishore Dorsey MD [address] [place] [address] Urology 07/17/24 Raheel Gee [address] [place], [place] [address] Pulmonary Disease 07/17/24 Riya Fulton [address]rd [place] [address] Cardiology 07/17/24 Sergio Hackett [address] [facility] 2nd [place] [address] Orthopaedic Surgery 07/17/24 Dominga Silva PharmD [address] [place] [address] Pharmacist Internal Medicine 07/22/24 05/07/25 Raheel Slater [address] [address] Podiatry 01/22/25 [facility] [place] [facility] 10/10/24 documented as of this encounter
--- OUTSIDE RECORDS SUMMARY | 2025-07-23 16:06 | XMS_ITS | Encounter Summary ---
Author Organization [facility] Address [address] [facility] [address] [place] [address] Care Team Providers Care Container Finishing Inspector Name Role Phone Ashley Frankel MD Primary Care Provider [phone] Hoang, November Unavailable Kishore Dorsey MD Unavailable Raheel Gee Unavailable [phone] Riya Fulton Unavailable Sergio Hackett Unavailable Unavailable Dominga SilvaD Unavailable Raheel Slater Unavailable Encounter Details Date Type Department Care Team (Late st Contact Info) Description 07/18/2023 Telephone [facility] MEDICINE [address] [place] [address] Ashley Frankel MD [address] [place], [place] [phone] Social History Tobacco Use Types Packs/Day Years [...] Bia Rose - 08/10/2023 1:42 PM EST [employer] Professor called pt to request verification of insurance/Medicare [...] Description 08/04/2025 9:30 AM EST Office Visit [facility] ADULT DENTAL [address] [place] [address] Jackie Peacock 09/03/2025 10:15 AM EST Office Visit [facility] MEDICINE [address] [place] [address] Ashley Frankel MD [address] [place] [address] 09/08/2025 10:30 AM EST Office Visit [facility] OPTOMETRY [address] [place] [address] Tania Cordon, OD [address] [place] [address] documented as of this encounter Visit Diagnoses Not on filedocumented in this encounter Care Teams Container Finishing Inspector Relationship Specialty Start Date End Date Ashley Frankel MD [address] [place] [address] PCP - General Family Medicine 08/28/18 Viktor November [address] [facility] [address] [place] [address] Gastroenterology 07/17/24 Kishore Dorsey MD [address] [facility] [address] [place] [address] Urology 07/17/24 Raheel Gee [address] [place], [place] [address] Pulmonary Disease 07/17/24 Riya Fulton [address] [address] Cardiology 07/17/24 Sergio Hackett [address] [place] [address] Orthopaedic Surgery 07/17/24 Dominga Silva PharmD [address] [place] [address] Pharmacist Internal Medicine 07/22/24 05/07/25 Raheel Slater [address] [address] Podiatry 01/22/25 [facility] [place] [facility] 10/10/24 documented as of this encounter
--- OUTSIDE RECORDS SUMMARY | 2025-07-23 16:06 | XMS_ITS | Clinical Summary ---
Author Organization [employer] Address [address] [place] [address] Care Team Providers Care Computer Lab Aide Name Role Phone Ashley Frankel MD Primary Care Provider [phone] Hoangnovember Unavailable Kishore Dorsey MD Unavailable [phone] Raheel Gee Unavailable [phone] Riya Fulton Unavailable Sergio Hackett Unavailable [...] times daily. 1 kit 025 2025 Active bacitracin 500 UNIT/GM ointment Apply topically 2 times daily. 28 g Active Fiber 500 MG capsuleIndicati ons:Constipatio n, unspecified constipation type Take 500 mg by mouth 2 times daily. 60 capsule 11 Active Senna-Time 8.6 MG tabletIndicatio ns:Constipation , [...] migh t be different from the original. [facility] Director Imaging: Kamila, member services number [phone], provider services line, , option 4 Director Of Materials Management Agency: refused services Problem Noted Date Diagnosed [...] Date PSA 0.69 08/13/2024 TSH 1.31 10/24/2024 [id number] NON-REACTIVE 02/13/2020 -continues to loose weight, has [...] Date PSA 0.69 08/13/2024 TSH 1.31 10/24/2024 [id number] NON-REACTIVE 02/13/2020 -continues to loose weight, has [...] with stent placement (10/01/2024) with Dr. Bashir Perdeu Assessment & Plan (01/23/2025 11:04 AM EDT): [...] Removal 2021. New found mass on left anabaptist. - Referred to Plastic Surgery 07/16/24 Assessment & Plan (07/17/2024 10:23 AM EST): Removal 2021. New found mass on left anabaptist. - Referred to Plastic Surgery 07/16/24 Cardiac [...] due after 07/17/25 -eye care facilitated by [facility] -dental home is [facility] -health care proxy paperwork given 11/13/2023, given again 07/17/24 Assessment & Plan (07/17/2024 10:32 AM EST): -next physical exam due after 07/17/25 -eye care facilitated by [facility] -dental home is [facility] -health care proxy paperwork given 11/13/2023, given again 07/17/24 Assessment & Plan (11/13/2023 10:07 AM EDT): -next physical exam due after 04/27/2024 -eye care facilitated by [facility] -dental home is [facility] -health care proxy paperwork given 11/13/2023 Assessment & Plan (04/27/2023 9:45 AM EDT): -next physical exam due after 04/27/2024. -eye care facilitated by [facility], last visit 01/16/2023 -dental home is [facility] Class 1 obesity 02/24/2023 Erectile dysfunction [...] the strong evidence that these meds prevent MD/CVA. Continue atorvastatin 80qhs. Encouraged to take. Anxiety [...] CT May 2021 -CT 01/24/24 ordered [address]egal secretary Dr. Raheel Gee MD, redemonstration of innumerable mixed calcified and noncalcified pulmonary nodules, not significantly changed compared to most recent CT chest from 08/09/2022, largest measuring 6 mm. -02/12/25ordered by paralegal secretary Dr. Raheel Gee MD IMPRESSION: 9.7 mm [...] getting tx for his neck. -Followed by [facility]. -Saw Dr. Eivn Bhat at [facility] 02/2021 -referred to orthopedic on 11/13/2023 - [...] getting tx for his neck. -Followed by [facility]. -Saw Dr. Evin Bhat at [facility] 02/2021 -referred to orthopedic on 11/13/2023 - [...] getting tx for his neck. -Followed by [facility]. -Saw Dr. Evin Bhat at [facility] 02/2021 -referred to orthopedic on 11/13/2023 - [...] getting tx for his neck. -Followed by [facility]. -Saw Dr. Evin Bhat at [facility] 02/2021 -referred to orthopedic on 11/13/2023 Assessment [...] getting tx for his neck. Followed by [facility]. Saw Dr. Evin Bhat at [facility] 02/2021 Assessment & Plan (04/27/2023 9:22 AM [...] getting tx for his neck. Followed by [facility]. Saw Dr. Evin Bhat at [facility] 02/2021 Assessment & Plan (11/07/2022 11:31 AM [...] getting tx for his neck. Followed by [facility]. Saw Dr. Evin Bhat at [facility] 02/2021 Mild intermittent asthma 10/14/2021 Overview (05/14/2025): -Followed by Dr. Raheel Gee at [facility]. Note from 05/14/25 reviewed -Well [...] -Continue lifestyle modifications Patient reported at [facility] visit 02/14/25 self-discontinuation of amlodipine 10mg and chlorthalidone 25mg months ago; were formally discontinued at this visit Patient denied having started recent addition of spironolactone; [facility] formally discontinued and restarted amlodipine 5mg once [...] couple days. -Seen on 02/14/25 by [facility], had been off medications for months and was restarted on amlodipine 5mg and continued lisinopril 40mg. -Elevated BP 03/31/25, will increase amlodipine to 10mg Assessment & Plan (03/31/2025 11:39 AM EDT): -Blood pressure is not at goal -Continue lifestyle modifications Patient reported at [facility] visit 02/14/25 self-discontinuation of amlodipine 10mg and chlorthalidone 25mg months ago; were formally discontinued at this visit Patient denied having started recent addition of spironolactone; [facility] formally discontinued and restarted amlodipine 5mg once [...] right ureteroscopy laser lithotripsy stent insertion, 6 Greenlandic by [address] Mayda Rodriguez. [...] Encounters Date Type Department Care Team Description 07/12/2025 9:20 AM EST Office Visit [facility] [address] [place] [phone] Sarahy Sosa MD Constipation, unspecified constipation type (Primary Dx) 07/12/2025 Travel 07/10/2025 Telephone [facility] MEDICINE [address] [place] [phone] Ashley Frankel MD Requesting call back 07/04/2025 Telephone [facility] [address] [place] [address] [phone] Chaz Melendez MD 07/04/2025 Orders Only [facility] [address] [place] [address] [phone] Chaz Melendez MD Cold extremities (Primary Dx) 07/02/2025 2:40 PM EST Office Visit [facility] [address] [place] [phone] Chaz Melendez MD Tremor of both hands (Primary Dx); Cold extremities; Hypertension, unspecified type 07/02/2025 Travel 07/02/2025 Refill [facility] [address] [place] [address] Ashley Frankel MD Constipation, unspecified constipation type 06/23/2025 Telephone [facility]INE [address] [place] [phone] Ashley Frankel MD August Recalls 06/23/2025 Travel 06/02/2025 Telephone [facility] [address] [place] [phone] Ashley Frankel MD July Recalls 06/02/2025 Refill [facility] [address] [place] [phone] Ashley Frankel MD Constipation, unspecified constipation type 05/27/2025 Orders Only [facility] External Provider, [facility] 05/07/[address] [phone] Dominga Silva, PharmD from Last 3 Months Immunizations Immunization Administration [...] Sign Reading Time Taken Comments Blood Pressure 150/80 07/12/2025 9:16 AM EST Pulse 67 07/12/2025 9:16 AM EST Temperature 36.9 C (98.5 F) 07/12/2025 9:16 AM EST Respiratory Rate 20 07/12/2025 9:16 AM EST Oxygen Saturation 99% 07/12/2025 9:16 AM EST Inhaled Oxygen Concentration - - Weight 77.6 kg (171 lb) 07/12/2025 9:16 AM EST Height 170.2 cm (5' 7 ) 07/12/2025 9:16 AM EST Body Mass Index 26.78 07/12/2025 9:16 AM EST Plan of Treatment Upcoming Encounters Date Type Department Care Team (Late st Contact Info) Description 08/04/2025 9:30 AM EST Office Visit [facility] ADULT DENTAL [address] [place] [address] Jackie Peacock 09/03/2025 10:15 AM EST Office Visit [facility] MEDICINE [address] [place] [address] Ashley Frankel MD [address] [place] [address] 09/08/2025 10:30 AM EST Office Visit [facility] OPTOMETRY [address] [place] [address] Bravo, Tania, OD [address] [place] [address] Health Maintenance Due Date Last Done Comments CT Colonography 1965 Dental X-Ray: Full Mouth 1965 FIT DNA/Cologuard 1965 FIT 1965 FOBT 1965 Sigmoidoscopy 1965 Derm Melanoma Skin Check 02/17/1965 RSV Patients and Patients Aged 60 years or older (1 - Risk 50-74 years 1-dose series) 2014 Zoster Vaccines (1 of 2) 2014 Pneumococcal Vaccine: 50+ Years (2 of 2 - PCV) 05/14/2016 05/14/2015, 06/30/2006 COVID-19 Vaccine ( - season) 2025 Influenza Vaccine (#1) 2025 9, 05/18/2018, 05/31/2017, Additional history exists Dental X-Ray: Bitewings 05/04/2025 05/03/2024, 10/24 Eye Exam 06/19/2025 06/19/2024, 05/29, 06/19/2024, Additional history exists Depression Screening 07/17/2025 07/17/2024, 07/17/20 Diabetes: Foot [...] 01/23/2025 SDOH Screening 01/23/2026 01/23/2025 Tobacco Screening 07/12/2026 07/12/2025 DTaP/Tdap/Td Vaccines (3 - Td or Tdap) [...] on patient's age to complete this topic Goals Goal Patient Goal Type Associated Problems Recent Progress Patient-Stated? Author Help patients manage their type 2 diabetes Care Plan Help patients manage their type 2 diabetes No Noris Martínez Weekly blood pressure task Care Plan Weekly blood pressure task No Noris Martínez Help patients manage their type 2 diabetes Care Plan Help patients manage their type 2 diabetes No MartínezNoris sanches Patient has diabetic eye disease Care Plan Patient has diabetic eye disease No MartínezCatalinady Help patients manage their type 2 diabetes Care Plan Help patients manage their type 2 diabetes No Noris Martínez Patient has chronic kidney disease Care Plan Patient has chronic kidney disease No Noris Martínez Weekly blood pressure task Care Plan Weekly blood pressure task No MartínezCatalinady Weekly blood pressure task Care Plan Weekly blood pressure task No Noris Martínez Patient has diabetic eye disease Care Plan Patient has diabetic eye disease No Noris Martínez Patient has diabetic eye disease Care Plan Patient has diabetic eye disease No Noris Martínez Patient has chronic kidney disease Care Plan Patient has chronic kidney disease No Noris Martínez Patient has chronic kidney disease Care Plan Patient has chronic kidney disease No Noris Martínez Weekly blood pressure task Care Plan Weekly blood pressure task No Ana Leon MA Weekly blood pressure task Care Plan Weekly blood pressure task No Ana Leon MA Weekly blood pressure task Care Plan Weekly blood pressure task No Ana Leon [place] Patient has diabetic eye disease Care Plan Patient has diabetic eye disease No Ana Leon [place] Patient has diabetic eye disease Care Plan Patient has diabetic eye disease No Ana Leon [place] Patient has diabetic eye disease Care Plan Patient has diabetic eye disease No Ana Leon [place] Patient has chronic kidney disease Care Plan Patient has chronic kidney disease No Ana Leon [place] Patient has chronic kidney disease Care Plan Patient has chronic kidney disease No Ana Leon [place] Patient has chronic kidney disease Care Plan Patient has chronic kidney disease No Ana Leon MA Procedures Procedure Name Priority Date/Time Associated Diagnosis Comments DANIELA SCREEN, IFA, W/REFL TITER AND PATTERN Routine 07/03/2025 8:40 AM EST Tremor of both hands Cold extremities COMPREHENSIVE METABOLIC PANEL Routine 07/03/2025 8:40 AM EST Hypertension, unspecified type Tremor of both hands Cold extremities VITAMIN B12 Routine 07/03/2025 8:40 AM EST Hypertension, unspecified type Tremor of both hands Cold extremities MAGNESIUM Routine 07/03/2025 8:40 AM EST Hypertension, unspecified type Tremor of both hands Cold extremities C-REACTIVE PROTEIN Routine 07/03/2025 8: 40 AM EST Hypertension, unspecified type Tremor of both hands Cold extremities TSH W/REFLEX TO FT4 Routine 07/03/2025 8 :40 AM EST Hypertension, unspecified type Tremor of both hands Cold extremities NM GASTRIC EMPTYING SOLID Routine 05/27/2025 7:58 AM EDT AMB REFERRAL TO ORTHOPAEDIC SURGERY Routine 05/26/2025 DISH (diffuse idiopathic skeletal hyperostosis) Decreased range of motion of neck POCT GLYCATED HEMOGLOBIN, TOTAL Routine 02/11/2025 9:17 AM EDT Type 2 diabetes mellitus with hyperlipidemia (CMS/HCC) (CMS/[facility]) PROPHYLAXIS - ADULT Routine 02/03/2025 9 :00 AM EDT Dental calculus Dental plaque PERIODIC ORAL EVALUATION - ESTABLISHED PATIENT Routine 02/03/2025 9:00 AM EDT HIV 1/2 ANTIGEN/ANTIBODY, FOURTH GENERATION W/RFL Routine 10/24/2024 9:22 AM EST Weight loss, non-intentional ALBUMIN, RANDOM URINE W/CREATININE Routine 08/13/2024 11:26 AM EST Type 2 diabetes mellitus without complication, without long-term current use of insulin (CMS/[facility]) LIPID PANEL, STANDARD Routine 08/13/2024 11:26 AM [...] Recently Relevant to Health Maintenance Results * TSH with Reflex to Free T4 (07/03/2025 8:40 AM EST) TSH reflex Free T4 1.25 0.32 - 4.0 uIU/mL [facility] Blood Venous blood specimen / Unknown 07/03/2025 8:40 AM EST 07/03/2025 11:16 AM EST us Chaz Melendez MD LAB BLOOD ORDERABLES Final Resul t Performing Organization Address City/[facility]/ZIP Co de Phone Number [facility] [address] [place] [phone] * C-reactive Protein (07/03/2025 8:40 AM EST) C Reactive Protein <0.10 < or = 0.50 mg/dL [facility] Blood Venous blood specimen / Unknown 07/03/2025 8:40 AM EST 07/03/2025 11:16 AM EST us Chaz Melendez MD LAB BLOOD ORDERABLES Final Resul t Performing Organization Address [facility]/ZIP Co de Phone Number [facility] [address] [place] [phone] * DANIELA Screen,IFA, with Reflex to Titer and Pattern (07/03/2025 8:40 AM EST) Anti Nuclear Antibody Screen NEGATIVE NEGATIVE [facility] Comment:DANIELA IFA is a first l ine screen for detecting thepresence of up to approximately 150 autoantibodies invarious autoimmune diseases. A negative DANIELA IFA resultsuggests an DANIELA-associated autoimmune disease is notpresent at this time, but is not definitive. If thereis high clinical suspicion for Sjogren's syndrome,testing for anti-SS-A/Ro antibody should be considered.Anti-Judith-1 antibody should be considered for clinicallysuspected inflammatory myopathies.AC-0: NegativeInternational Consensus on DANIELA Patterns(https://doi.org/10.1515/msms-9672-9009)For additional information, please refer tohttp://education.[employer]/faq/XYX029(This link is being provided for informational/educational purposes only.)THIS TEST WAS PERFORMED AT:[employer] [place] [phone] MARTINS MD DANIELA Titer TNP [facility] DANIELA Pattern TNP [facility]ELA [facility] 2 [facility] D[facility]EL[facility] Pattern 2 TNP [facility] DANIELA TITER 3 [facility] DANIELA PATTERN 3 TNP [facility] Blood Venous blood specimen / Unknown 07/03/2025 8:40 AM EST 07/03/2025 11:16 AM EST us Chaz Melendez MD LAB BLOOD ORDERABLES Final Resul t Performing Organization Address City/[facility] Co de Phone Number [facility] [address] [place] [phone] * Magnesium (07/03/2025 8:40 AM EST) Pathologist [facility] Magnesium 2.2 1.6 - 2.6 mg/dL [facility] Blood Venous blood specimen / Unknown 07/03/2025 8:40 AM EST 07/03/2025 11:16 AM EST us Chaz Melendez MD LAB BLOOD ORDERABLES Final Resul t Performing Organization Address City/[facility] Co de Phone Number [facility] [address] [place] [phone] * Vitamin B12 (07/03/2025 8:40 AM EST) Pathologist [facility] Vitamin B12 337 200 - 900 pg/mL [facility] Comment:NORMAL 200-900 PG/ML INDETERMINATE 160-199 PG/ML DEFICIENT < 160 PG/ML Blood Venous blood specimen / Unknown 07/03/2025 8:40 AM EST 07/03/2025 11:16 AM EST us Chaz Melendez MD LAB BLOOD ORDERABLES Final Resul t Performing Organization Address [facility] Co de Phone Number [facility] [address] [place] [phone] * (ABNORMAL) Comprehensive Metabolic Panel (07/03/2025 8:40 AM EST) Pathologist [facility] Sodium 142 135 - 145 mmol/L [facility] Potassium 3.7 3.3 - 5.1 mmol/L [facility] Chloride 107 96 - 108 mmol/L [facility] Carbon Dioxide 29 22 - 29 mmol/L [facility] Anion Gap 10(L) 12 - 20 [facility] Urea Nitrogen (BUN) 18(H) 9 - 16 mg/dL [facility] Creatinine, Serum 0.92 0.5 - 1.4 mg/dL [facility] Estimated Glomerular Filt Rate >60 [facility] Comment:Chronic Kidney Disea se: Estimated GFR < 60 mL/min/1.66p4Qwxptt Kidney Disease: Estimated GFR < 15 mL/min/1.73m2 Glucose 119(H) 60 - 115 mg/dL [facility] Calcium 9.3 8.4 - 10.2 mg/dL [facility] Bilirubin, Total 1.1(H) 0.0 - 1.0 mg/dL [facility] Aspartate Amino Transferase 25 5 - 37 U/L [facility] Alanine Aminotransferase 16 0 - 40 U/L [facility] Total Protein 7.0 6.5 - 8.0 g/dL [facility] Albumin Level 4.3 3.5 - 5.0 g/dL [facility] Alkaline Phosphatase 103 39 - 117 U/L [facility] Blood Venous blood specimen / Unknown 07/03/2025 8:40 AM EST 07/03/2025 11:16 AM EST us Chaz Melendez MD LAB BLOOD ORDERABLES Final Resul t [facility] [address] [place] [phone] * NM Gastric Emptying Solid (05/27/2025 7:58 AM EDT) Anatomical Region Laterality Modality Body Nuclear Medicine 05/27/2025 7:58 AM EDT Narrative 05/27/2025 11:29 AM EDT [address] [address] Nuclear Medicine Report Signed Patient: Bobby Velasco MR#: [id number] : 1965 Acct:[id number] Age/Sex: 59 / M ADM Date: 05/27/25 Loc: [facility] Attending Dr: Sonya BARLOW Ordering Physician: Sonya Hoang Date of Service: 05/27/25 Procedure(s): NM gastric emptying study Accession Number(s): [id number] cc: Ashley Frankel MD; Sonya Hoang Reason [...] 05/27/25 1126 DD/ 0758 TD/TT: 05/27/25 1115 [facility] Display Builder: Procedure Note Donotuseinterpreter, Image - 05/27/2025 [place] [address] Nuclear Medicine Report Signed Patient: Pierce Velasco#: [id number] : 1965Acct:[id number] Age/Sex: 59 / MADM Date: 05/27/25 Loc: [facility] Attending Dr: Sonya BARLOW Ordering Physician: Sonya Hoang Date of Service: 05/27/25 Procedure(s): NM gastric emptying study Accession Number(s): [id number] cc: Ashley Frankel MD; Sonya Hoang Reason for Exam: R6 - Early satiety EXAMINATION: NM RADIONUCLIDE SOLID FOOD GASTRIC EMPTYING 4-HOUR STUDY CLINICAL INFORMATION: - Early satiety COMPARISON: There are no [...] hours 2% (normal 30%-60%) 3 hours 1% NM/NC gastric emptying study IMPRESSION: Rapid gastric emptying. [...] 05/27/25 1126 DD/ 0758 TD/TT: 05/27/25 1115 [facility] Display Builder: [facility] External Provider IMG NM PROCEDURES Edited Result - Final * Referral to Orthopaedic Surgery (05/26/2025) Ashley Frankel MD OUTPATIENT REFERRAL ORDERA BLES Final Result * (ABNORMAL) POCT HGB A1C (02/11/2025 9:17 AM EDT) Hemoglobin A1C 6.1(A) 4.0 - 6.0 % QC Media Lot # [id number] Lot# Expiration Date [id number] Blood 02/11/2025 9:17 AM EDT Latia MCDANIEL POINT OF CARE TEST ENTER/EDIT OR DERABLES Final Result * HIV-1/2 Antigen and Antibodies, Fourth Generation, with Reflexes (10/24/2024 9:22 AM EST) Pathologist [facility] HIV AB/AG Nonreactive Nonreactive [facility] Comment:HIV-1 p24 Ag and/or HIV-1/HIV-2 Ab not detected.A test result that is nonreactive does not exclude thepossibility of exposure to or infection with HIV-1 and/orHIV-2. Nonreactive results in this assay for individualswith prior exposure to HIV-1 and/or HIV-2 may be due toantigen and antibody levels that are below the limit ofdetection of this assay.The [employer] HIV Ag/Ab Combo assay result andsupplemental assay results should be interpreted inconjunction with the patient's clinical presentation,history and other laboratory results. If the results areinconsistent with clinical evidence, additional testing issuggested to confirm the result. Blood Venous blood specimen / Unknown 10/24/2024 9:22 AM EST 10/24/2024 11:48 AM EST Ashley Frankel MD LAB BLOOD ORDERABLES Final Result [facility] [address] [place] [phone] * Albumin, Random Urine W/Creatinine (08/13/2024 11:26 AM EST) Pathologist [facility] Creatinine, Urine 73.67 mg/dL [facility] Microalbumin Urine 13.0 mg/L [facility] Microalbum Creatinine Ratio Ur 17.6 <30 ug/mg cr [facility] Comment:Albumin/Creatinine R atio Reference Ranges: Normal: < 30 ug/mg creatinine Microalbuminuria: 30 - 300 ug/mg creatinineClinical Albuminuria: > 300 ug/mg creatinine Urine 08/13/2024 11:2 6 AM EST 08/13/2024 1:00 PM EST Ashley Frankel MD LAB URINE ORDERABLES Final Result Performing Organization Address [facility] Co de Phone Number [facility] [address] [place] [phone] * (ABNORMAL) Lipid Panel, Standard (08/13/2024 11:26 AM EST) Triglycerides 86 <150 mg/dL [facility] Comment:Desirable Triglyceri de: less than 150 mg/dLBorderline High Triglyceride 150-199 mg/dLHigh Triglyceride: 200-499 mg/dLVery High Triglyceride: greater than or equal to 5OO mg/dL Cholesterol 146 <200 mg/dL [facility] Comment:Desirable Cholestero l: less than 200 mg/dLBorderline High Cholesterol: 200-239 mg/dLHigh Cholesterol: greater than 239 mg/dL LDL Cholesterol Calculated 96 <100 mg/dL [facility] Comment:Desirable LDL: less than 100 mg/dLNear Optimal/Above Optimal LDL: 110- 129 mg/dLBorderline High LDL: 130-159 mg/dLHigh LDL: 160-189 mg/dLVery High LDL: greater than or equal to 190 mg/dL HDL Cholesterol 33(L) >40 mg/dL [facility] Comment:Desirable HDL: great er than 40 mg/dL Note: This HDL assay may give artificially low results in patients with liver disease. Blood Venous blood specimen / Unknown 08/13/2024 11:26 AM EST 08/13/2024 12:59 PM EST Ashley Frankel MD LAB BLOOD ORDERABLES Final Result Performing Organization Address [facility]/ZIP Co de Phone Number [facility] [address] [place] [phone] * Hm Colonoscopy (04/06/2023) Colonoscopy Normal Normal [facility] Provider HEALTH MAINTENANCE Final Result * Hepatitis C Antibody with Reflex to HCV, RNA, Quantitative, Real-Time PCR (11/11/2022 8:59 AM EDT) Hepatitis C Antibody NON-REACT KELSY NON-REACT KELSY [facility] Index 0.64 <1.00 [facility] Comment: HCV antibody was non-reactive. There is no laboratory evidence of HCV infection. In most cases, no further action is required. However, if recent HCV exposure is suspected, a test for HCV RNA (test code 98833) is suggested. For additional information please refer to http://education.[employer]/faq/YUW34u0 (This link is being provided for informational/ educational purposes only.) Blood Venous blood specimen / Unknown 11/11/2022 8:59 AM EDT 11/11/2022 8:59 AM EDT Narrative [facility] - 11/11/2022 9:36 PM EDT FASTING:YES FASTING: YES Ashley Frankel MD LAB BLOOD ORDERABLES Final Result [facility] [address] [place] [phone] [facility] [address] [place] [phone] from Last 3 Months or Most Recently Relevant to Health Maintenance Additional Health Concerns Active Problems Noted Date Diagnosed Date Help patients manage their type 2 diabetes 07/10 Weekly blood pressure task 07/10/2025 Help patients manage their type 2 diabetes 07/10 Patient has diabetic eye disease 07/10/2025 Help patients manage their type 2 diabetes 07/10 Patient has chronic kidney disease 07/10/2025 Weekly blood pressure task 07/10/2025 Weekly blood pressure task 07/10/2025 Patient has diabetic eye disease 07/10/2025 Patient has diabetic eye disease 07/10/2025 Patient has chronic kidney disease 07/10/2025 Patient has chronic kidney disease 07/10/2025 Weekly blood pressure task 07/12/2025 Weekly blood pressure task 07/12/2025 Weekly blood pressure task 07/12/2025 Patient has diabetic eye disease 07/12/2025 Patient has diabetic eye disease 07/12/2025 Patient has diabetic eye disease 07/12/2025 Patient has chronic kidney disease 07/12/2025 Patient has chronic kidney disease 07/12/2025 Patient has chronic kidney disease 07/12/2025 Insurance [facility] Care Teams Computer Lab Aide Relationship Specialty Start Date End Date Marlys, MD Ashley [address] [place] [address] PCP - General Family Medicine 08/28/18November 11 [facility] 3rd [place] [address] Gastroenterology 07/17/24 Kishore Dorsey MD 10 [facility] [address] [place] [address] Urology 07/17/24 Raheel Gee 5 [place], [place] 10[address] Pulmonary Disease 07/17/24 Riya Fulton [address] [address] Cardiology 07/17/24 Sergio Hackett [address] 2[address] [place] [address] Orthopaedic Surgery 07/17/24 Raheel Slater [address] [place] [address] Podiatry 01/22/25 De. M[facility]a Psychiatry 10/10/24
--- OUTSIDE RECORDS SUMMARY | 2025-07-23 16:06 | XMS_ITS | Encounter Summary ---
Author Organization [employer] Address 75 [facility] 7t [place] [address] Care Team Providers Care Healthcare Network Consultant Name Role Phone Ashley Frankel MD Primary Care Provider [phone]- [phone] November Unavailable Kishore Dosrey MD Unavailable [phone] Raheel Gee Unavailable [phone] Riya Fulton Unavailable Sergio Hackett Unavailable Unavailable Dominga SilvaD Unavailable [phone] Raheel Slater Unavailable Reason for Visit * Reason Comments Med Refill Encounter Details Date Type Department Care Team (Late st Contact Info) Description 07/24/2023 Refill [facility] 230 [place], [place] [phone] [facility] 230 [place], [place] [phone] Prostatitis, acute Social History Tobacco Use Types [...] Description 08/04/2025 9:30 AM EST Office Visit [facility] 230 [place] [address] Jackie Peacock 09/03/2025 10:15 AM EST Office Visit [facility] 230 [place] [address] Ashley Frankel MD 230 [place] [address] 09/08/2025 10:30 AM EST Office Visit [facility] 267 [place] [address] Tania Cordon, OD 230 [place] [address] documented as of this encounter Visit Diagnoses Diagnosis Prostatitis, acute Acute prostatitis documented in this encounter Care Teams Healthcare Network Consultant Relationship Specialty Start Date End Date Ashley Frankel MD [address] [place] [address] PCP - General Family Medicine 08/28/[address] 3rd [place] [address] Gastroenterology 07/17/24 Kishore Dorsey MD [address] [place] [address] Urology 07/17/24 Raheel Gee 5 [place], [place] 10[address] Pulmonary Disease 07/17/24 Riya Fulton [address] 3rd [place] [address] Cardiology 07/17/24 Sergio Hackett 300 [facility] 2nd [place] [address] Orthopaedic Surgery 07/17/24 Dominga Silva PharmD 230 [place] [address] Pharmacist Internal Medicine 07/22/24 05/07/25 Raheel Slater [address] [address] Podiatry 01/22/25 De. Dalal Psychiatry 10/10/24 documented as of this encounter
--- OUTSIDE RECORDS SUMMARY | 2025-07-23 16:07 | XMS_ITS | Encounter Summary ---
Author Organization [employer] Address 75 [facility] 7t [place] [address] Care Team Providers Care Solar Sales Energy Advisor Name Role Phone Ashley Frankel MD Primary Care Provider [phone]- [phone] November Unavailable Kishore Dorsey MD Unavailable Raheel Gee Unavailable [phone] Riya Fulton Unavailable Sergio Hackett Unavailable Unavailable Dominga Silva PharmD Unavailable Raheel Slater Unavailable Encounter Details Date Type Department Care Team (Late st Contact Info) Description 02/01/2023 Telephone [facility] 230 [place], [place] [phone] Ashley Frankel MD 230 [place], [place] [phone] Social History Tobacco Use Types Packs/Day Years [...] Visit [facility] 230 [place] [address] Peacock, Jackie 09/03/2025 10:15 AM EST Office Visit [facility] 230 [place] [address] Ashley Frankel MD 230 [place] [address] 09/08/2025 10:30 AM EST Office Visit [facility] [address] [place] [address] Bravo, Tania, OD 230 [place] [address] documented as of this encounter Visit Diagnoses Not on filedocumented in this encounter Care Teams Solar Sales Energy Advisor Relationship Specialty Start Date End Date Ashley Frankel MD 230 [place] [address] PCP - General Family Medicine 08/28/18 Viktor Sonya [address] [address] Gastroenterology 07/17/24 Kishore Dorsey MD [address] [place] [address] Urology 07/17/24 Raheel Gee 5 [place], [place] 10[address] Pulmonary Disease 07/17/24 Riya Fulton 11 [facility] 3rd [place] [address] Cardiology 07/17/24 Sergio Hackett [address] 2nd [place] [address] Orthopaedic Surgery 07/17/24 Dominga Silva, Mehrdad 230 [place] [address] Pharmacist Internal Medicine 07/22/24 05/07/25 Raheel Slater [address] [address] Podiatry 01/22/25 De. [facility] Psychiatry 10/10/24 documented as of this encounter
--- OUTSIDE RECORDS SUMMARY | 2025-07-23 16:07 | XMS_ITS | Encounter Summary ---
Author Organization [employer] Address [address] [place] [address] 7t [place] [address] Care Team Providers Care Kayak Maker Name Role Phone Ashley Frankel MD Primary Care Provider [phone]- [phone] Viktor November Unavailable Kishore Dorsey MD Unavailable [phone] Raheel Gee Unavailable [phone] Riya Fulton Unavailable Sergio Hackett Unavailable Unavailable Dominga Silva PharmD Unavailable Raheel Slater Unavailable Encounter Details Date Type Department Care Team (Late Contact Info) Description 04/07/2023 Abstract [facility] 230 [place], [place] [phone] Ashley Frankel MD 230 [place], [place] [phone] Social History Tobacco Use Types Packs/Day Years [...] Description 08/04/2025 9:30 AM EST Office Visit [facility] 230 [place] [address] Peacock, Jackie 09/03/2025 10:15 AM EST Office Visit [facility] 230 [place] [address] Ashley Frankel MD 230 [place] [address] 09/08/2025 10:30 AM EST Office Visit [facility] [address] [place] [address] Bravo, Tania, OD 230 [place] [address] documented as of this encounter Procedures Procedure Name Priority Date/Time Associated Diagnosis Comments COLONOSCOPY Routine 04/06/2023 documented in this encounter Results * Colonoscopy (04/06/2023) Colonoscopy Normal Normal us Historical Provider HEALTH MAINTENANCE Final Result documented in this encounter Visit Diagnoses Not on filedocumented in this encounter Care Teams Kayak Maker Relationship Specialty Start Date End Date Ashley Frankel MD 230 [place] [address] PCP - General Family Medicine 08/28/18November [address] 3rd [place] [address] Gastroenterology 07/17/24 Kishore Dorsey MD [address] [place] [address] Urology 07/17/24 Raheel Gee 5 [place], [place] 1040 Pulmonary Disease 07/17/24 Riya Fulton [address] 3rd [place] [address] Cardiology 07/17/24 Sergio Hackett [address] 2nd [place] [address] Orthopaedic Surgery 07/17/24 Dominga Silva PharmD 230 [place] [address] Pharmacist Internal Medicine 07/22/24 05/07/25 Raheel Slater [address] [address] Podiatry 01/22/25 De. Dalal Psychiatry 10/10/24 documented as of this encounter
--- OUTSIDE RECORDS SUMMARY | 2025-07-23 16:07 | XMS_ITS | Encounter Summary ---
Author Organization [employer] Address 75 [facility] 7t [place] [address] Care Team Providers Care Tire Classifier Name Role Phone Ashley Frankel MD Primary Care Provider [phone] Viktor November Unavailable Kishore Dorsey MD Unavailable [phone] Raheel Gee Unavailable [phone] Riya Fulton Unavailable Segrio Hackett Unavailable Unavailable Dominga Silva PharmD Unavailable Raheel Slater Unavailable Encounter Details Date Type Department Care Team (Latest Contact Info) Description 06/08/2022 Abstract [facility] CONVERSIONS Dental, Provider, DDS Social History Tobacco [...] Description 08/04/2025 9:30 AM EST Office Visit [facility] ADULT DENT[facility] 230 [place], [place] [phone] Jackie Peacock 09/03/2025 10:15 AM EST Office Visit [facility] MEDIC[facility] 230 [place], [place] [phone] Ashley Frankel MD 230 [place] [address] 09/08/2025 10:30 AM EST Office Visit [facility] [address] [place] [address] Tania Cordon, OD 230 [place] [address] documented as of this encounter Visit Diagnoses Not on filedocumented in this encounter Care Teams Tire Classifier Relationship Specialty Start Date End Date Ashley Frankel MD 230 [place] [address] PCP - General Family Medicine 08/28/18 Viktor Sonya [address] [address] Gastroenterology 07/17/24 Kishore Dorsey MD [address] [address] Urology 07/17/24 Raheel Gee 5 [place], [place] 10[address] Pulmonary Disease 07/17/24 Riya Fulton [address] [address] Cardiology 07/17/24 Sergio Hackett [address] [place] [address] Orthopaedic Surgery 07/17/24 Dominga Silva, Mehrdad 230 [place] [address] Pharmacist Internal Medicine 07/22/24 05/07/25 Raheel Slater [address] [place] [address] Podiatry 01/22/25 De. M[facility] Psychiatry 10/10/24 documented as of this encounter
--- OUTSIDE RECORDS SUMMARY | 2025-07-23 16:07 | XMS_ITS | Data Portability ---
Author Organization [place] - [facility], Allergy Address [address] [address] Care Team Providers Care Baker Doughnut Name Role Phone NAME, LINDSAY Primary Care [...] follow-up after for review and further planning. [email or web address] Not available 09/16/2024 13:47:52 Plan of Treatment [...] 14:57:50 Surgeries None recorded. Imaging CT, maxillofaci kellie rose/o contrast 2024 025 [id number] [facility] [place], 3640 [facility], [facility], [place], [address], 5 15:43:34 Medication Orders None recorded. Patient TargetsNo targets recorded. Patient InstructionsNo instructions recorded. Reason for Referral None Reported. Problems Name Problem SNOMED Code Status Onset Date Resolution Date Notes Provider Name and Address Organization Details Recorded Time Tinnitus of right ear 00471602869 08 Active 2017 Tinnitus, right ear; Note: Date Diagnosed : 01/16/2018 3:42 PM (H93.11) Not Available [facility] 4 02:51:19 Sensorine ural hearing loss of bilateral ears 433038445 Active 2017 Sensorine ural hearing loss, bilateral ; Note: Date Diagnosed : 01/16/2018 3:42 PM (H90.3) Not Available [facility] 4 02:51:21 Dizziness and giddiness 628894803 Active 2017 Dizziness and giddiness ; Note: Date Diagnosed : 01/16/2018 3:42 PM (R42) Not Available [facility] 4 02:51:20 Deviated nasal septum 892153172 Active 2017 Deviated nasal septum; Note: Date Diagnosed : 05/09/2018 11:11 AM (J34.2) Not Available [facility] 4 02:51:18 Nasal congestio n 53660573 Active 2017 Nasal congestio n; Note: Date Diagnosed : 05/09/2018 11:11 AM (R09.81) Not Available [facility] 4 02:51:19 Headache 93695343 Active 2017 Headache; Note: Date Diagnosed : 05/09/2018 11:06 AM (R51) Not Available [facility] 4 02:51:20 Allergic rhinitis 72677933 Active 2018 Perennial allergic rhinitis; Note: Date Diagnosed : 11/26/2018 12:00 PM (J30.89) Not Available [facility] 4 02:51:24 Impacted cerumen of bilateral ears 12182206381 37948 Active 2024 MAXWELL DALY PA-C [address] [place],[facility], [place], [address] , [facility] - [facility] [place] 13:48:02 Seasonal allergic rhinitis 297886314 Active 2024 MAXWELL DALY PA-C [facility] [place] [address], [facility] [place], [address] , [facility] - [facility] [place] 13:48:08 Non-aller gic rhinitis 84860830234 1 Active 2024 MAXWELL DALY PA-C 100 [facility] [place] [address], [facility] [place], [address] , [facility] [place] 13:48:08 Problem Notes None recorded. Procedures Surgical History Date Name Laterality Status Provider Name and Address Organization Details Recorded Time Cerumen removal without microscope bilat completed MAXWELL DALY PA-C [facility] [place] [address], [place], [address], [facility] [place] 09/16/2024 13:46:50 Imaging Results None recorded. Procedure Notes None recorded. Medical Equipment None Reported. Allergies Allergen ID Allergen Name Allergen Category Reaction Reaction Severity Criticality Documentation Date Start Date Code Code System Note Provider Name and Address Organization Details Recorded Time 373227 amoxicill in medicatio n other Not available Not available 01/09/2024 723 RxNorm React ion: unkno wn, unspe cifie d;; Not Available [facility] 4 01:20:48 192688 Product containin g penicilli n (product) medicatio n other Not available Not available 01/09/2024 73646 8001 SNOMED React ion: unkno wn, unspe cifie d;; Not Available [facility] 4 01:20:48 Medications Name Sig Start Date [...] mg tablet 01/16 completed Medicati on ID: [id number] D uration Value: 30 Reason: () Brand [...] mg tablet 09/16 completed Medicati on ID: [id number] D uration Value: 30 Brand Name: amlodipi [...] mg tablet 10/12 completed Medicati on ID: [id number] D uration Value: 30 Brand Name: carvedil [...] mg capsule 01/16 completed Medicati on ID: [id number] D uration Value: 30 Reason: () Brand [...] mg tablet 10/12 completed Medicati on ID: [id number] D uration Value: 10 Brand Name: Viagra [...] mg tablet 10/12 completed Medicati on ID: [id number] D uration Value: 5 Brand Name: levoflox [...] 24 hr 05/09 completed Medicati on ID: [id number] D uration Value: 30 Reason: () Brand [...] Lite Strips 01/16 completed Medicati on ID: [id number] D uration Value: 17 Reason: () Brand [...] Updated DateTime 09/16/2024 170.18 cm 27.9 kg/m2 74391.44 g Gail Hurt [place] - [facility] 09/16/2024 13:25:10 Social History None recorded. Functional Status None recorded. Mental Status None recorded. Family History Nothing Reported. Medical History No medical history recorded. Past Encounters Encounter ID Performer Location Encounter Start Date Encounter Closed Date Diagnosis/Indication Diagnosis SNOMED-CT Code Diagnosis ICD10 Code Diagnosis IMO Codes Diagnosis Note [id number] MAXWELL DALY PA-C [facility] [address] [address] 09/16/2024 13:13:53 09/16/2024 13:45:47 Nasal congestion 76235217 R09.81 Allergic rhinitis 209775 04 J30.89 Impacted c erumen of bilateral ears 3376716588 157378 H61.23 Health Concerns Section Related Observation LastModified by Organization Detai ls LastModified Time None Recorded Concern Status LastModified by Organization Details LastModified Time None Recorded Advance Directives Directive None Recorded Payers Insurance Date Sequence Insurance Name Policy Number Policy Ortiz Covered Member ID Ortiz Member ID Guarantor Name 05/14/2025 1 [facility] - DOS ON OR AFTER 2022 - MEDICARE ADVANTAGE [place] (MEDICARE REPLACEMENT/ADV ANTAGE - PPO) Bobby Velasco [id number] Bobby Velasco Notes Date Note Type Note Provider Name and Address Organization Details Recorded Time 09/16/2024 text/html ROS as noted in the HPI 59-year-old male presents for reevaluation of chronic [...] in his ears bilaterally. MAXWELL DALY PA-C [address] [place] [address], [place], [address], [facility] - [facility] 09/16/2024 13:49:51
--- OUTSIDE RECORDS SUMMARY | 2025-07-23 16:07 | XMS_ITS | Encounter Summary ---
Author Organization [employer] Address 75 [facility] 7t [place] [address] Care Team Providers Care Butter Liquefier Name Role Phone Ashley Frankel MD Primary Care Provider [phone]- [phone] Viktor November Unavailable Kishore Dorsey MD Unavailable Raheel Gee Unavailable [phone] Riya Fulton Unavailable Sergio Hackett Unavailable Unavailable Dominga Silva PharmD Unavailable Raheel Slater Unavailable Encounter Details Date Type Department Care Team (Late st Contact Info) Description 07/25/2022 Abstract [facility] 230 [place] [address] Dental, Provider, DDS Social History Tobacco Use [...] Description 08/04/2025 9:30 AM EST Office Visit [facility] 230 [place] [address] Jackie Peacock 09/03/2025 10:15 AM EST Office Visit [facility] 230 [place] [address] Ashley Frankel MD 230 [place], [place] [phone] 09/08/2025 10:30 AM EST Office Visit [facility] [address] [place], [place] [phone] Bravo, Tania, OD 230 [place] [address] documented as of this encounter Procedures Procedure [...] on filedocumented in this encounter Care Teams Butter Liquefier Relationship Specialty Start Date End Date Ashley Frankel MD 230 [place], [place] [phone] PCP - General Family Medicine 08/28/18 Viktor Sonya [address] 3rd [place] [address] Gastroenterology 07/17/24 Kishore Dorsey MD [address] [place] [address] Urology 07/17/24 Raheel Gee 5 [place], [place] 10[address] Pulmonary Disease 07/17/24 Riya Fulton [address] 3rd [place] [address] Cardiology 07/17/24 Sergio Hackett 300 [facility] 2nd [place] [address] Orthopaedic Surgery 07/17/24 Dominga Silva, Mehrdad 230 [place] [address] Pharmacist Internal Medicine 07/22/24 05/07/25 Raheel Slater [address] [address] Podiatry 01/22/25 De. Dalal Psych[facility] 10/10/24 documented as of this encounter
--- OUTSIDE RECORDS SUMMARY | 2025-07-23 16:07 | XMS_ITS | Encounter Summary ---
Author Organization [employer] Address [address] [place] [address] 7t [place] [address] Care Team Providers Care Geek Squad Autotech Name Role Phone Ashley Frankel MD Primary Care Provider [phone]- [phone] Viktor November Unavailable Kishore Dorsey MD Unavailable Raheel Gee Unavailable [phone] Riya Fulton Unavailable Sergio Hackett Unavailable Unavailable Dominga Silva PharmD Unavailable Raheel Slater Unavailable Encounter Details Date Type Department Care Team (Late st Contact Info) Description 09/13/2022 Abstract [facility] 230 [place] [address] Ashley Frankel MD 230 [place], [place] [phone] Social History Tobacco Use Types Packs/Day Years [...] Description 08/04/2025 9:30 AM EST Office Visit [facility] 230 [place] [address] Jackie Peacock 09/03/2025 10:15 AM EST Office Visit [facility] 230 [place] [address] Ashley Frankel MD 230 [place] [address] 09/08/2025 10:30 AM EST Office Visit [facility] [address] [place] [address] Bravo, Tania, OD 230 [place] [address] documented as of this encounter Procedures Procedure Name Priority Date/Time Associated Diagnosis Comments COLONOSCOPY Routine 09/06/2012 documented in this encounter Results * Colonoscopy (09/06/2012) Colonoscopy normal with Dr. Barrera Historical Provider HEALTH MAINTENANCE Final Result documented in this encounter Visit Diagnoses Not on filedocumented in this encounter Care Teams [employer] Relationship Specialty Start Date End Date Ashley Frankel MD 230 [place] [address] PCP - General Family Medicine 08/28/18November [address]rd [place] [address] Gastroenterology 07/17/24 Kishore Dorsey MD [address] [place] [address] Urology 07/17/24 Raheel Gee 5 [place], [place] 10[address] Pulmonary Disease 07/17/24 Riya Fulton [address] [facility] [address] 3rd [place] [address] Cardiology 07/17/24 Sergio Hackett [address] 2nd [place] [address] Orthopaedic Surgery 07/17/24 Dominga Silva PharmD 230 [place] [address] Pharmacist Internal Medicine 07/22/24 05/07/25 Raheel Slater [address] [address] Podiatry 01/22/25 De. [facility] Psychiatry 10/10/24 documented as of this encounter
--- OUTSIDE RECORDS SUMMARY | 2025-07-23 16:07 | XMS_ITS | Encounter Summary ---
Author Organization [employer] Address 75 [facility] 7t [place] [address] Care Team Providers Care Fabricator Assembler [employer] Products Name Role Phone Ashley Frankel MD Primary Care Provider [phone] Viktor November Unavailable Kishore Dorsey MD Unavailable Raheel Gee Unavailable [phone] Riya Fulton Unavailable Sergio Hackett Unavailable Unavailable Dominga Silva PharmD Unavailable Raheel Slater Unavailable Encounter Details Date Type Department Care Team (Latest Contact Info) Description 07/04/2019 Abstract [facility] CONVERSIONS Dental, Provider, DDS Social [...] Description 08/04/2025 9:30 AM EST Office Visit [facility] ADULT DENTAL 230 [place] [address] Jackie Peacock 09/03/2025 10:15 AM EST Office Visit [facility] MEDICINE 230 [place], [place] [phone] Ashley Frankel MD 230 [place] [address] 09/08/2025 10:30 AM EST Office Visit [facility] OPTOMETRY [address] [place] [address] Tania Cordon, OD 230 [place] [address] documented as of this encounter Visit Diagnoses Not on filedocumented in this encounter Care Teams Fabricator Assembler [employer] Products Relationship Specialty Start Date End Date Ashley Frankel MD 230 [place] [address] PCP - General Family Medicine 08/28/18 Viktor Sonya [address] [address] Gastroenterology 07/17/24 Kishore Dorsey MD 10 [facility] [address] [place] [address] Urology 07/17/24 Raheel Gee 5 [place], [place] 10[address] Pulmonary Disease 07/17/24 Riya Fulton [address] [address] Cardiology 07/17/24 Sergio Hackett [address] [place] [address] Orthopaedic Surgery 07/17/24 Dominga Silva, Mehrdad 230 [place] [address] Pharmacist Internal Medicine 07/22/24 05/07/25 Raheel Slater [address] [place] [address] Podiatry 01/22/25 De. [facility] Psychiatry 10/10/24 documented as of this encounter
== END 2025-07-23 13:29 | disposition home or self-care (01) ==
LOC: HO.HUSH 13:02
PROVIDERS: PCP Family Medicine; Visit Provider Urology
DX: N40.1 Benign prostatic hyperplasia with lower urinary tract symptoms (principal); N13.8 Other obstructive and reflux uropathy; R35.1 Nocturia
CPT/HCPCS: 99213

== ENCOUNTER → 2025-07-23 13:01 | Outpatient (BNVA) | payer OTHER, SELFPAY | PROVIDERS: PCP Family Medicine; Visit Provider Urology | DX: N40.1 Benign prostatic hyperplasia with lower urinary tract symptoms (principal); R35.1 Nocturia | CPT/HCPCS: 51798; 99212 ==